=== PATIENT | female | born 1945 | race Caucasian/White ===

== ENCOUNTER 2019-11-08 07:50 | Outpatient (CLI) | payer MEDICARE, MEDICAID, SELFPAY ==
--- NOTE | 2019-11-08 08:45 | USCV_ITS ---
Yeimy Tiffany Age: 74 Gender: F : 1945 Exam Date: 11/08/2019 08:13 Ordering Phys: Ok Corey MD ([email or web address]) Technologist: CASSANDRA WATERS Exam Location: [facility] [place] Indication: AV Stenosis BP: 114 / 52 HR: 78 Rhythm: Sinus Technical Quality: Adequate MEASUREMENTS (Male / Female) Normal Values 2D ECHO LV Diastolic Diameter PLAX 4.8 cm 4.2 - 5.9 / 3.9 - 5.3 cm LV Systolic Diameter PLAX 3.4 cm IVS Diastolic Thickness 1.0 cm 0.6 - 1.0 / 0.6 - 0.9 cm IVS Systolic Thickness 1.5 cm LVPW Diastolic Thickness 1.0 cm 0.6 - 1.0 / 0.6 - 0.9 cm LVPW Systolic Thickness 1.4 cm LVOT Diameter 2.0 cm LV Ejection Fraction 2D Teich 57.0 % LA Diameter 3.7 cm LA Width 2.8 cm LA Height 5.0 cm RA Width 3.6 cm RA Height 5.3 cm Aorta at Sinotubular Diameter 2.6 cm M-MODE LV Diastolic Diameter MM 4.8 cm 4.2 - 5.9 / 3.9 - 5.3 cm LV Systolic Diameter MM 2.7 cm LV Ejection Fraction MM Teich 74.8 % IVS Diastolic Thickness MM 0.9 cm 0.6 - 1.0 / 0.6 - 0.9 cm IVS Systolic Thickness MM 1.5 cm LVPW Diastolic Thickness MM 1.2 cm 0.6 - 1.0 / 0.6 - 0.9 cm LVPW Systolic Thickness MM 1.4 cm Aortic Annulus Diameter 2.7 cm LA Ao Ratio MM 1.4 MV E Point Septal Separation 0.3 cm DOPPLER AV Peak Velocity 234.0 cm/s LVOT Peak Velocity 82.0 cm/s AV Area Cont Eq vti 1.0 cm squared AV Area Cont Eq pk 1.1 cm squared MV Area PHT 2.7 cm squared Mitral E to A Ratio 0.8 MV E' Velocity 8.0 cm/s Mitral E to MV E' Ratio 11.9 Mitral E to LV E' Lateral Ratio 9.7 Mitral E to LV E' Septal Ratio 15.3 TV Peak E Velocity 59.0 cm/s Right Atrial Pressure 3.0 mmHg PV Peak Velocity 87.0 cm/s RV Acceleration Time 0.1 s RV Ejection Time 0.3 s RV AcT/ET 0.4 FINDINGS Left Ventricle Normal left ventricular cavity size. Mild left ventricular hypertrophy. Normal left ventricular systolic function. No regional wall motion abnormalities. Grade I/IV diastolic dysfunction (abnormal relaxation filling pattern), normal to mildly elevated filling pressures. Left ventricular ejection fraction is estimated at 65-70 %. Right Ventricle Normal right ventricular size and systolic function. Normal right ventricular systolic pressure. Right Atrium The right atrium is normal in size. Left Atrium The left atrium is normal in size. Mitral Valve Structurally normal mitral valve without significant stenosis or prolapse. There is no mitral regurgitation. Aortic Valve Structurally normal trileaflet aortic valve. Mild aortic valve calcification. Mild aortic valve stenosis, mean gradient 11.1 mmHg, DEMETRIO 1 cm squared. Tricuspid Valve Structurally normal tricuspid valve. Trace tricuspid valve regurgitation. Pulmonic Valve Pulmonic valve not well visualized. Pericardium Normal pericardium without effusion. Aorta Normal ascending aorta dimension. CONCLUSIONS Normal left ventricular cavity size. Mild left ventricular hypertrophy. Normal left ventricular systolic function. No regional wall motion abnormalities. Grade I/IV diastolic dysfunction (abnormal relaxation filling pattern), normal to mildly elevated filling pressures. Left ventricular ejection fraction is estimated at 65-70 %. Structurally normal trileaflet aortic valve. Mild aortic valve calcification. Mild aortic valve stenosis, mean gradient 11.1 mmHg, DEMETRIO 1 cm squared. There are no prior echocardiogram studies to compare. Dr. Ok Corey MD (Electronically Signed) Final Date: 08 November 2019 10:45 S
== END 2019-11-08 07:51 | disposition home or self-care (01) ==
LOC: US 07:53
PROVIDERS: Family Provider Family Medicine; PCP Family Medicine; Visit Provider Internal Medicine Cardiovascular Disease
DX: I35.0 Nonrheumatic aortic (valve) stenosis (principal); I70.0 Atherosclerosis of aorta
CPT/HCPCS: 93306

== ENCOUNTER 2020-11-11 11:54 | Outpatient (CLI) | payer MEDICARE, MEDICAID, SELFPAY ==
--- NOTE | 2020-11-11 11:56 | USCV_ITS ---
Yeimy Tiffany Age: 75 Gender: F : 1945 Exam Date: 11/11/2020 12:35 Ordering Phys: Ok Corey MD ([email or web address]) Technologist: Mira Lindsey Exam Location: [facility] [place] Indication: BP: / HR: 78 Rhythm: Sinus Technical Quality: TDS MEASUREMENTS (Male / Female) Normal Values 2D ECHO LV Diastolic Diameter PLAX 4.1 cm 4.2 - 5.9 / 3.9 - 5.3 cm LV Systolic Diameter PLAX 3.3 cm LV Chamber Size 2.9 cm IVS Diastolic Thickness 1.4 cm 0.6 - 1.0 / 0.6 - 0.9 cm IVS Systolic Thickness 1.4 cm LVPW Diastolic Thickness 1.5 cm 0.6 - 1.0 / 0.6 - 0.9 cm LVPW Systolic Thickness 1.9 cm RV Chamber Size 2.7 cm LVOT Diameter 2.1 cm LV Ejection Fraction 2D Teich 47.5 % LV Ejection Fraction MOD 2C 51.7 % LV Ejection Fraction 2C AL 52.8 % LA Diameter 3.7 cm LA Width 3.1 cm LA Height 4.6 cm RA Width 3.3 cm RA Height 4.1 cm Aorta at Sinotubular Diameter 2.5 cm M-MODE LV Diastolic Diameter MM 4.5 cm 4.2 - 5.9 / 3.9 - 5.3 cm LV Systolic Diameter MM 2.9 cm LV Ejection Fraction MM Teich 64.7 % IVS Diastolic Thickness MM 1.4 cm 0.6 - 1.0 / 0.6 - 0.9 cm IVS Systolic Thickness MM 1.7 cm LVPW Diastolic Thickness MM 1.4 cm 0.6 - 1.0 / 0.6 - 0.9 cm LVPW Systolic Thickness MM 1.7 cm RV Diastolic Diameter MM 2.3 cm Aortic Annulus Diameter 3.2 cm LA Ao Ratio MM 1.2 MV E Point Septal Separation 0.8 cm DOPPLER AV Peak Velocity 250.3 cm/s LVOT Peak Velocity 84.0 cm/s AV Area Cont Eq vti 1.2 cm squared AV Area Cont Eq pk 1.2 cm squared MV Area PHT 3.3 cm squared Mitral E to A Ratio 1.2 MV E' Velocity 53.0 cm/s Mitral E to MV E' Ratio 13.7 Mitral E to LV E' Lateral Ratio 11.0 Mitral E to LV E' Septal Ratio 18.8 TR Peak Velocity 144.2 cm/s TR Peak Gradient 8.3 mmHg TR Mean Velocity 107.8 cm/s TR Mean Gradient 5.1 mmHg TR Velocity Time Integral 31.9 cm Right Atrial Pressure 3.0 mmHg Pulmonary Artery Systolic Pressu 11.3 mmHg PV Peak Velocity 70.0 cm/s RV Acceleration Time 0.1 s RV Ejection Time 0.5 s RV AcT/ET 0.2 FINDINGS Left Ventricle Normal left ventricular size. Grossly LV systolic function is normal. Regional wall motion abnormalties can not be assessed because of limited visualization. Diastolic function is abnormal Right Ventricle The right ventricle is normal in size and function. Right Atrium The right atrium is normal in size. Left Atrium The left atrium is normal in size. Mitral Valve Structurally normal mitral valve without significant stenosis or prolapse. There is no mitral regurgitation. Aortic Valve Aortic valve is moderately calcified. Mild aortic stenosis is present. By continuity equation, aortic valve area is calculated to be 1.26cm2 and mean gradient across the valve is 14mmHg. No aortic regurgitation seen Tricuspid Valve Structurally normal tricuspid valve without significant stenosis or regurgitation. Insufficient TR jet to calculate RVSP Pulmonic Valve Not visualized Pericardium Normal pericardium without effusion. Aorta Normal ascending aorta dimension. CONCLUSIONS This is technically difficult study with limited visualization of cardiac structures Grossly, LV systolic function is normal Diastolic function is abnormal Mild aortic stenosis with aortic valve area of 1.26 cm2 and mean gradient across the valve of 14mmHg Compared to prior echocardiogram from 11/08/2019, no signficant change is noted Tariq Cannon MD (Electronically Signed) Final Date: 17 November 2020 15:14 S
== END 2020-11-11 11:55 | disposition home or self-care (01) ==
LOC: US 11:55
PROVIDERS: PCP Family Medicine; Visit Provider Internal Medicine Cardiovascular Disease
DX: I35.0 Nonrheumatic aortic (valve) stenosis (principal)
CPT/HCPCS: 93306

== ENCOUNTER 2021-09-14 10:25 | Inpatient (IN) | payer MEDICARE, MEDICAID, SELFPAY ==
[2021-09-14] VITALS (10 sets, daily range): BP systolic 101–158; BP diastolic 57–99; PULSE 82–104; RESP 16–23; TEMP 36.5–37.7; O2SAT 91–96; BMI 44.0
--- NOTE | 2021-09-14 10:49 | ECG_ITS ---
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 Measurements Intervals [place] Rate: 94 P: -57 MI: 106 QRS: 197 QRSD: 132 T: -10 QT: 376 QTc: 471 Interpretive Statements SINUS RHYTHM WITH SINUS ARRHYTHMIA WITH SHORT MI INTERVAL RIGHT AXIS DEVIATION [QRS AXIS > 100] RIGHT BUNDLE BRANCH BLOCK [120+ ms QRS DURATION, UPRIGHT V1, 40+ ms S IN I/aVL/V4/V5/V6] POSSIBLE ANTERIOR MYOCARDIAL INFARCTION , OF INDETERMINATE AGE [30 ms Q WAVE IN V3/V4, OR R < 0.2 mV IN V4] No previous ECG available for comparison Electronically Signed On 09-15-2021 15:34:28 COMMERCIAL MANAGEMENT ACCOUNTANT by Diane Benedict M.D. [id number]
--- NOTE | 2021-09-14 10:49 | XRR_ITS ---
PROCEDURE INFORMATION: Exam: XR Chest Exam date and time: 09/14/2021 10:49 AM Age: 75 years old Clinical indication: Dyspnea TECHNIQUE: Imaging protocol: XR of the chest. Views: 1 view. COMPARISON: No relevant prior studies available. FINDINGS: Lungs: Mild perihilar pneumonia bilaterally. Pleural spaces: Unremarkable. No pleural effusion. No pneumothorax. Heart/Mediastinum: Mild cardiomegaly. Bones/joints: Postoperative metallic fixation of the cervical spine with or without metallic artifact. XR/XR chest 1V portable [id number] IMPRESSION: 1. Mild cardiomegaly. 2. Mild perihilar pneumonia bilaterally.
--- NOTE | 2021-09-14 11:14 | W.ED.GENADLT ---
HPI - General Adult General: Chief complaint: Shortness of Breath/Dyspnea Stated complaint: sob,cough,fever Time Seen by Provider: 09/14/21 10:43 History of Present Illness: HPI narrative: Patient is a 75-year-old female with history of COPD on 2 L of home oxygen presented to emergency room with acute onset of dyspnea and cough since Wednesday. Patient tells me that she was at home with family when this all started. Denies any other sick contact. Denies any diarrhea, generalized weakness, malaise, fever/chills, runny nose/sore throat. Patient denies any active chest pain. Denies any exertional chest pain, pleuritic chest pain, leg swelling, nausea/vomiting, melena/hematochezia, or symptoms. Onset:2 days ago Duration:2 days Location:home Severity:moderate/severe Review of Systems Narrative: Constitutional: No fever, no chills. HEENT: No vision changes CV: No chest pain, no palpitations PULM: +cough, +dyspnea. GI: No abdominal pain, no N/V/D. : No dysuria MSKEL: No muscle pain SKIN: No new rashes, no lesions. NEURO: No headache, no focal weakness. HEME: No visible bruises PSYCH: Normal mood PFSH ED PFSH: Medical History CVA (cerebral vascular accident) Diabetes 1.5, managed as type 2 HTN (hypertension) Hyperlipidemia Hypothyroidism Mild aortic stenosis Obesity Seizure disorder Surgical History Previous back surgery S/P hysterectomy Family History Father Stroke Hypertension Mother Hypertension CAD (coronary artery disease) Myocardial infarction Sister Hypertension CAD (coronary artery disease) Myocardial infarction Brother CAD (coronary artery disease) Myocardial infarction Social History Smoking and tobacco status: never smoked Household members: spouse Marital status: Physical Exam Narrative: EXAM NARRATIVE: Head: Atraumatic Eyes: PERRL, conjunctiva without injection ENT: Mucous membrane moist NECK: Supple, ROM intact LUNGS: +Coarse breath sounds b/l CV: RRR ABDOMEN: Soft, nontender in all quadrants EXTREMITY: Normal ROM SKIN: No rash or erythema NEURO: Awake and alert, no focal motor deficits PSYCH: Normal mood and affect Course Vital Signs: Vital signs: Vital Signs Temperature 99.5 F 09/14/21 10:37 Pulse Rate 101 H 09/14/21 15:10 Respiratory Rate 16 09/14/21 13:26 Blood Pressure 134/57 09/14/21 15:10 Pulse Oximetry 95 09/14/21 15:10 MDM - General Adult MDM Narrative: Medical decision making narrative: 75-year-old female presenting to the emergency room for evaluation of dyspnea cough x2 days with increased oxygen requirement. Patient satting at 93 to 94% on 5L nasal cannula. Lung sounds appears to be coarse. XR consistent with possible PNA. WBC of 14K. S/p ceftriaxone and azithromycin. Given increased oxygen requirement and possible PNA, patient will be admitted for further workup. Disposition: Admission Lab Data: Labs: Lab Results 09/14/21 09/14/21 09/14/21 11:45 11:45 11:45 WBC 14.5 10^3/uL H 10 ^3/uL (4.0-10.0) RBC 4.07 10^6/uL L 10 ^6/uL (4.1-5.3) Hgb 12.2 g/dL g/dL (11.5-15.3) Hct 38.5 % % (37.0-47.0) MCV 94.6 fl fl (81-99) MCH 30.0 pg pg (28.0-34.0) MCHC 31.7 g/dL g/dL (30.0-36.0) RDW 13.5 % % (12.1-15.1) Plt Count 280 10^3/cmm 10^3 /cmm (130-400) MPV 8.8 fL fL (7.4-10.4) Neut % (Auto) 78.9 % % Lymph % (Auto) 7.2 % % [place] % (Auto) 11.6 % % Eos % (Auto) 1.2 % % Baso % (Auto) 0.4 % % Neut # (Auto) 11.45 10^3/uL H 1 0^3/uL (1.8-7.7) Lymph # (Auto) 1.0 10^3/uL 10^3/ uL (0.8-4.8) [place] # (Auto) 1.7 10^3/uL H 10^ 3/uL (0.2-0.9) Eos # (Auto) 0.2 10^3/uL 10^3/ uL (0.0-0.8) Baso # (Auto) 0.1 10^3/uL 10^3/ uL (0.0-0.1) Nucleated RBC % (a uto) 0 % % Nucleated RBCs # 0.0 /100WBC /100W BC Sodium 137 mmol/L mmol/L (136-145) Potassium 4.4 mmol/L mmol/L (3.5-5.1) Chloride 97 mmol/L L mmol/ L (98-107) Carbon Dioxide 28 mmol/L mmol/L (22-29) Anion Gap 16.4 (5-19) BUN 13 mg/dL mg/dL (8-23) Creatinine 0.8 mg/dL mg/dL (0.5-0.9) GFR Calculation Not Reportable Glucose 252 mg/dL H mg/dL (65-115) Calculated Osmolal ity 293 mOsm/kg mOsm/ kg (285-295) Calcium 7.6 mg/dL L mg/dL (8.5-10.5) Troponin T Baselin e Troponin T 120 Min nato Delta Troponin T NT-Pro-B Natriuret Pep 2772 pg/mL H pg/m L (0-125) Coronavirus 229E ( PCR) Not detected (NOT DETECT) SARS-CoV-2 (PCR) Not detected (NOT DETECT) SARS-CoV-2 Ag (Rap id) 09/14/21 09/14/21 09/14/21 11:45 11:45 13:55 WBC RBC Hgb Hct MCV MCH MCHC RDW Plt Count MPV Neut % (Auto) Lymph % (Auto) [place] % (Auto) Eos % (Auto) Baso % (Auto) Neut # (Auto) Lymph # (Auto) [place] # (Auto) Eos # (Auto) Baso # (Auto) Nucleated RBC % (a uto) Nucleated RBCs # Sodium Potassium Chloride Carbon Dioxide Anion Gap BUN Creatinine GFR Calculation Glucose Calculated Osmolal ity Calcium Troponin T Baselin e 22 ng/L H ng/L (0-10) Troponin T 120 Min nato 20.56 ng/L H ng/L (0-10) Delta Troponin T -1.44 ABS# L ABS# (0-10) NT-Pro-B Natriuret Pep Coronavirus 229E ( PCR) SARS-CoV-2 (PCR) SARS-CoV-2 Ag (Rap id) Cancelled Imaging Data^: Other Imaging: Radiologist's impression: [id number] [place], [place] [address]KV Scan ReportSigned Patient: Tiffany Gaffney #: [id number]: 1945cct#:[id number]/Sex: 75 / FADM Date: 09/14/21[facility]: Lorene Oh MD Ordering Provider/Ordering MD: Lyndsay Choudhary MD Date of Service: 09/14/21 Procedure(s): CT angio chest PE prot [id number] Accession Number(s): [id number] Report Number: [id number] PROCEDURE INFORMATION: Exam: CTA Chest With Contrast Exam date and time: 09/14/2021 12:23 PM Age: 75 years old Clinical indication: Cough and shortness of breath; Additional info: Eval pe TECHNIQUE: Imaging protocol: Computed tomographic angiography of the chest with contrast. 3D rendering (Not supervised by radiologist): MIP and/or 3D reconstructed images were created by the technologist. Radiation optimization: All CT scans at this facility use at least one of these dose optimization techniques: automated exposure control; mA and/or kV adjustment per patient size (includes targeted exams where dose is matched to clinical indication); or iterative reconstruction. Contrast material: OMNI 350; Contrast volume: 77 ml; Contrast route: INTRAVENOUS (IV); COMPARISON: CR (CHEST, ) 09/14/2021 11:16 AM RADIATION DOSE METRICS: Total DLP (mGy-cm): 564.78 FINDINGS: Pulmonary arteries: No pulmonary embolus or aortic dissection. Aorta: See Pulmonary arteries finding. Lungs: 6 mm left upper lobe pulmonary nodule, axial series 2, image 177. Followup as discussed below. Right discoid atelectasis and/or scarring. Airspace disease in the superior segment left upper lobe with air bronchograms consistent with moderate to severe focal pneumonia. Pleural spaces: Unremarkable. No pneumothorax. No pleural effusion. Heart: Unremarkable. No cardiomegaly. No pericardial effusion. Lymph nodes: Mild mediastinal and pufw-wt-krlhfrnm bilateral hilar adenopathy consistent with reactive adenopathy versus sarcoidosis versus other pathology. Spleen: Calcified splenic granulomas. Bones/joints: Stable postoperative metallic fixation of the cervical spine with or without metallic artifact. Moderate thoracic spondylosis. Soft tissues: Unremarkable. CT/CT angio chest PE protcl [id number] IMPRESSION: 1. 6 mm left upper lobe pulmonary nodule, axial series 2, image 177. Followup as discussed below. 2. Airspace disease in the superior segment left upper lobe with air bronchograms consistent with moderate to severe focal pneumonia. 3. No pulmonary embolus or aortic dissection. 4. Mild mediastinal and ykzg-id-pmvhtguu bilateral hilar adenopathy consistent with reactive adenopathy versus sarcoidosis versus other pathology. For patients at low risk (minimal or absent history of smoking and of other known risk factors), recommend CT Chest at 6-12 months, then consider CT Chest at 18-24 months. For patients at high risk (history of smoking or of other known risk factors), recommend CT Chest at 6-12 months, then CT Chest at 18-24 months. (Reference: Clarisa) References: Kaelahocarol H, et al. Guidelines for Management of Incidental Pulmonary Nodules Detected on CT Images: From the Fleischner Society 2017. Radiology. 2017;284(1):228-243. Dictated By:Lukas Perea MDSigned By:Lukas Perea MDSigned Date/Time:09/14/21 1623DD/ 1223 Discharge Plan Discharge Patient Disposition: Admitted As Inpatient Admit Provider: Lorene Oh Clinical Impression: Dyspnea, Cough, Pneumonia, Hypoxemia Condition: Stable Coding Level of Care Code ED Daily Sales Audit Clerk for Valentin Mace
[2021-09-14 11:56] LABS: Basophils # 0.1 10^3/uL (0.0-0.1); Basophils % 0.4 %; Eosinophils # 0.2 10^3/uL (0.0-0.8); Eosinophils % 1.2 %; Hematocrit 38.5 % (37.0-47.0); Hemoglobin 12.2 g/dL (11.5-15.3); Lymphocytes % 7.2 %; Mean Corpuscular HGB Conc 31.7 g/dL (30.0-36.0); Mean Corpuscular Volume 94.6 fl (81-99); Mean Platelet Volume 8.8 fL (7.4-10.4); Monocytes # 1.7 10^3/uL (0.2-0.9); Monocytes % 11.6 %; Neutrophils # 11.45 10^3/uL (1.8-7.7); Neutrophils % 78.9 %; Nucleated Red Blood Cells % 0 %; Platelet Count 280 10^3/cmm (130-400); Red Blood Count 4.07 10^6/uL (4.1-5.3); Red Cell Distribution Width 13.5 % (12.1-15.1); White Blood Count 14.5 10^3/uL (4.0-10.0)
--- NOTE | 2021-09-14 12:23 | CTR_ITS ---
PROCEDURE INFORMATION: Exam: CTA Chest With Contrast Exam date and time: 09/14/2021 12:23 PM Age: 75 years old Clinical indication: Cough and shortness of breath; Additional info: Eval pe TECHNIQUE: Imaging protocol: Computed tomographic angiography of the chest with contrast. 3D rendering (Not supervised by radiologist): MIP and/or 3D reconstructed images were created by the technologist. Radiation optimization: All CT scans at this facility use at least one of these dose optimization techniques: automated exposure control; mA and/or kV adjustment per patient size (includes targeted exams where dose is matched to clinical indication); or iterative reconstruction. Contrast material: OMNI 350; Contrast volume: 77 ml; Contrast route: INTRAVENOUS (IV); COMPARISON: CR (CHEST, ) 09/14/2021 11:16 AM RADIATION DOSE METRICS: Total DLP (mGy-cm): 564.78 FINDINGS: Pulmonary arteries: No pulmonary embolus or aortic dissection. Aorta: See Pulmonary arteries finding. Lungs: 6 mm left upper lobe pulmonary nodule, axial series 2, image 177. Followup as discussed below. Right discoid atelectasis and/or scarring. Airspace disease in the superior segment left upper lobe with air bronchograms consistent with moderate to severe focal pneumonia. Pleural spaces: Unremarkable. No pneumothorax. No pleural effusion. Heart: Unremarkable. No cardiomegaly. No pericardial effusion. Lymph nodes: Mild mediastinal and saxc-be-cqrpabef bilateral hilar adenopathy consistent with reactive adenopathy versus sarcoidosis versus other pathology. Spleen: Calcified splenic granulomas. Bones/joints: Stable postoperative metallic fixation of the cervical spine with or without metallic artifact. Moderate thoracic spondylosis. Soft tissues: Unremarkable. CT/CT angio chest PE protcl [id number] IMPRESSION: 1. 6 mm left upper lobe pulmonary nodule, axial series 2, image 177. Followup as discussed below. 2. Airspace disease in the superior segment left upper lobe with air bronchograms consistent with moderate to severe focal pneumonia. 3. No pulmonary embolus or aortic dissection. 4. Mild mediastinal and dwjl-bw-ofwiklum bilateral hilar adenopathy consistent with reactive adenopathy versus sarcoidosis versus other pathology. For patients at low risk (minimal or absent history of smoking and of other known risk factors), recommend CT Chest at 6-12 months, then consider CT Chest at 18-24 months. For patients at high risk (history of smoking or of other known risk factors), recommend CT Chest at 6-12 months, then CT Chest at 18-24 months. (Reference: Clarisa) References: Clarisa Preciado, et al. Guidelines for Management of Incidental Pulmonary Nodules Detected on CT Images: From the Fleischner Society 2017. Radiology. 2017;284(1):228-243.
[2021-09-14 12:24] LABS: Troponin(5th) Baseline 22 ng/L (0-10)
[2021-09-14 12:32] LABS: Anion Gap 16.4 (5-19); Blood Urea Nitrogen 13 mg/dL (8-23); Calcium 7.6 mg/dL (8.5-10.5); Carbon Dioxide 28 mmol/L (22-29); Chloride 97 mmol/L (98-107); Glucose 252 mg/dL (65-115); NT Pro B Type Natriuretic Pept 2772 pg/mL (0-125); Osmolality Calculated 293 mOsm/kg (285-295); Potassium 4.4 mmol/L (3.5-5.1); Sodium 137 mmol/L (136-145)
--- NOTE | 2021-09-14 12:49 | ECG_ITS ---
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 Measurements Intervals [place] Rate: 92 P: -65 MD: 102 QRS: 193 QRSD: 129 T: -9 QT: 382 QTc: 474 Interpretive Statements SINUS RHYTHM WITH FREQUENT SUPRAVENTRICULAR PREMATURE COMPLEXES RIGHT AXIS DEVIATION [QRS AXIS > 100] RIGHT BUNDLE BRANCH BLOCK [120+ ms QRS DURATION, UPRIGHT V1, 40+ ms S IN I/aVL/V4/V5/V6] POSSIBLE ANTERIOR MYOCARDIAL INFARCTION , OF INDETERMINATE AGE [30 ms Q WAVE IN V3/V4, OR R < 0.2 mV IN V4] Compared to ECG 09/14/2021 14:12:49 Atrial fibrillation no longer present Myocardial infarct finding still present Electronically Signed On 09-15-2021 22:47:07 CONSUMER ADVOCATE by Diane Benedict M.D. [id number]
[2021-09-14] MEDS: ipratropium-albuterol 3 mL Neb INHALATION ×3 (12:56→13:19)
[2021-09-14 13:43] LABS: Adenovirus Not Detected (NOT DETECT); Chlamydia Pneumoniae Not Detected (NOT DETECT); Coronavirus 229E,HKU1,NL63,OC4 Not Detected (NOT DETECT); Human Metapneumovirus Not Detected (NOT DETECT); Human Rhinovirus/Enterovirus Not Detected (NOT DETECT); Influenza A Not Detected (NOT DETECT); Influenza A H1 Not Detected (NOT DETECT); Influenza A H1-2009 Not Detected (NOT DETECT); Influenza A H3 Not Detected (NOT DETECT); Influenza B Not Detected (NOT DETECT); Mycoplasma Pneumoniae Not Detected (NOT DETECT); Parainfluenza Virus Type 1 Not Detected (NOT DETECT); Parainfluenza Virus Type 2 Not Detected (NOT DETECT); Parainfluenza Virus Type 3 Not Detected (NOT DETECT); Parainfluenza Virus Type 4 Not Detected (NOT DETECT); Respiratory Syncytial Virus A Not Detected (NOT DETECT); Respiratory Syncytial Virus B Not Detected (NOT DETECT); SARS-COV-2 Not Detected (NOT DETECT)
--- NOTE | 2021-09-14 14:11 | PM.HP ---
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 She is normally on 2 L at home of oxygen. She has been having cough since Wednesday and she was at home with family when all this started. She states she is unable to bring any phlegm however and it is stuck in her throat. She is now requiring 5 L of oxygen at rest. COVID-19 and Covid PCR negative. Denies any sick contact. Denies diarrhea generalized weakness, malaise, fever, chills, runny nose, sore throat. Denies chest pain, leg swelling, nausea, vomiting, diarrhea. Extensive review of systems done and is negative at this time. She is not on any inhalers at home for her COPD from what she tells me. ED course: Blood pressure 136/83, respiratory 16, pulse rate 100, temperature 99.5, pulse ox 93%. Chest x-ray shows mild cardiomegaly, mild perihilar pneumonia bilaterally. Last echo October 2020 shows grossly normal systolic function, diastolic function abnormal. Mild aortic stenosis with aortic valve area 1.26 cm? and mean gradient across the valve of 14. No significant change noted since October 2019. CTA negative for pulmonary embolism but does have pulmonary nodule with severe focal pneumonia in left upper lobe. Review of Systems General: Reports: 10 or more systems reviewed and unremarkable except in HPI and below Medications/Allergies Home Medications Medication Instructions Recorded Confirmed Last Taken Type baclofen 10 mg tablet 10 mg PO TID 11/13/19 09/14/21 09/13/21 History bumetanide 2 mg tablet 2 mg PO BID 11/13/19 09/14/21 09/13/21 History cetirizine 10 mg tablet 10 mg PO DAILY PRN tab 11/13/19 09/14/21 Unknown History desvenlafaxine succinate 50 mg 50 mg PO DAILY 11/13/19 09/14/21 09/13/21 History tablet,extended release 24 hr esomeprazole magnesium 20 mg 20 mg PO DAILY 11/13/19 09/14/21 09/13/21 History capsule,delayed release fluticasone propionate 50 1 spray INTRANASAL DAILY 11/13/19 09/14/21 Unknown History mcg/actuation nasal spray,suspension gabapentin 300 mg capsule 300 mg PO BID 11/13/19 09/14/21 09/13/21 History levothyroxine 100 mcg capsule 100 mcg PO DAILY 11/13/19 09/14/21 09/13/21 History linagliptin 5 mg tablet 5 mg PO DAILY 11/13/19 09/14/21 09/13/21 History lisinopril 5 mg tablet 5 mg PO DAILY 11/13/19 09/14/21 09/13/21 History meclizine 25 mg tablet 25 mg PO TID PRN 11/13/19 09/14/21 Unknown History metformin 1,000 mg tablet 1,000 mg PO BID 11/13/19 09/14/21 09/13/21 History oxycodone-acetaminophen 10 mg-325 1 tab PO Q4H PRN 11/13/19 09/14/21 Unknown History mg tablet phenytoin sodium extended 100 mg 300 mg PO BID cap 11/13/19 09/14/21 09/13/21 History capsule ergocalciferol (vitamin D2) 1,250 mcg PO DAILY 09/14/21 09/14/21 Unknown History [Vitamin D2] potassium chloride 20 meq PO DAILY 09/14/21 09/14/21 09/13/21 History Allergies Allergy/AdvReac Type Severity Reaction Status Date / Time No Known Allergies Allergy Verified 09/14/21 10:37 PFSH Acute PFSH: Medical History CVA (cerebral vascular accident) Diabetes 1.5, managed as type 2 HTN (hypertension) Hyperlipidemia Hypothyroidism Mild aortic stenosis Obesity Seizure disorder Surgical History Previous back surgery S/P hysterectomy Family History Father Stroke Hypertension Mother Hypertension CAD (coronary artery disease) Myocardial infarction Sister Hypertension CAD (coronary artery disease) Myocardial infarction Brother CAD (coronary artery disease) Myocardial infarction Social History Smoking and tobacco status: never smoked Household members: spouse Marital status: Vitals/I&O/Wt Last Vital Signs Temp 99.5 F 09/14/21 10:37 Pulse 88 09/14/21 13:26 Resp 16 09/14/21 13:26 BP 140/77 09/14/21 12:29 Pulse Ox 92 09/14/21 13:26 Weight last 48 hrs Weight 109.316 kg Physical Exam Narrative: EXAM NARRATIVE: General: Alert oriented x3, patient seen appearing comfortable on 5L NC HEENT: Normocephalic, atraumatic, EOMI, breathing normally on 5L NC, NO acute distress Cardio: Regular rate rhythm, normal S1-S2, no murmurs rubs gallops, Respiratory: Coarse bilateral breath sounds, decreased bilateral air entry. GI: Abdomen soft, nontender, nondistended, bowel sounds + Behavior: Appropriate and cooperative Extremities: no edema, no cyanosis Data : 09/14/21 11:45 09/14/21 11:45 A&P Assessment and plan (1) Dyspnea: Status: Acute (2) Cough: Status: Acute (3) Mild aortic stenosis: Status: Acute (4) Obesity: Status: Acute (5) Diabetes 1.5, managed as type 2: Status: Acute (6) Hyperlipidemia: Status: Acute (7) HTN (hypertension): Status: Acute (8) CVA (cerebral vascular accident): Status: Acute Additional A&P Information #Acute on chronic hypoxic respiratory failure #Left upper lobe moderate to severe pneumonia on CT chest #6 mm left upper lobe pulmonary nodule #Mild to moderate bilateral hilar adenopathy consistent with reactive adenopathy versus high-grade ptosis versus other pathology. -Respiratory to assess and treat. Oxygen as needed. Currently requiring 5 L. Covid PCR negative ?We will start patient on vancomycin and Zosyn at this time ?Obtain sputum Gram stain and culture ?MRSA nares PCR ?Bacterial antigens -Check influenza -CTA pending. #History of stroke #Hypertension #Hyperlipidemia #Diabetes #Obesity #Mild aortic stenosis #Hypothyroidism -Insulin sliding scale for diabetes -Continue patient's home medications ?Continue levothyroxine 100 daily ?Hold Metformin, empagliflozin. Full code DVT prophylaxis Lovenox Attestations Medical Necessity Statement*: >48 hour stay Coding Level of Care Code Acute Warehouse Delivery Manager for g Fwd Diagnoses Dyspnea R06.00 Cough R05.9 Mild aortic stenosis I35.0 Obesity E66.9 Diabetes 1.5, managed as type 2 E13.9 Hyperlipidemia E78.5 HTN (hypertension) I10 CVA (cerebral vascular accident) I63.9
[2021-09-14 14:24] LABS: Troponin 5 2HR 20.56 ng/L (0-10)
[2021-09-14 14:33] LABS: Troponin 5 2HR Delta -1.44 ABS# (0-10)
[2021-09-14] MEDS: cefTRIAXone 1,000 MG in sodium chloride 0.9% (plus) 50 ML 100 MG IV (15:06)
[2021-09-14] MEDS: iohexol 350 mg/mL 100 mL Btl IV (15:58)
--- NOTE | 2021-09-14 16:49 | ECG_ITS ---
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 Measurements Intervals [place] Rate: 94 P: WI: QRS: 191 QRSD: 132 T: -12 QT: 375 QTc: 469 Interpretive Statements ATRIAL FIBRILLATION RIGHT AXIS DEVIATION [QRS AXIS > 100] RIGHT BUNDLE BRANCH BLOCK POSSIBLE ANTERIOR MYOCARDIAL INFARCTION , OF INDETERMINATE AGE Compared to ECG 09/14/2021 12:17:56 Sinus rhythm no longer present Sinus arrhythmia no longer present Short WI interval no longer present Myocardial infarct finding still present Electronically Signed On 09-15-2021 16:57:48 JOURNEYMAN APPRENTICE ELECTRICIANS by Diane Benedict M.D. [id number]
[2021-09-14 17:22] LABS: Glucose Point of Care 216 mg/dL (70-110)
[2021-09-14] MEDS: phenytoin ER 100 mg Capsule 300 MG PO (17:43)
[2021-09-14] MEDS: heparin 5,000 unit/mL INJ 1 mL 5000 UNIT SUBCUT (17:43)
[2021-09-14] MEDS: gabapentin 300 mg Capsule PO (17:43)
[2021-09-14] MEDS: vancomycin 1,500 MG/300 ML PIGGYBACK 200 MG IV (17:43)
[2021-09-14] MEDS: bumetanide 1 mg Tablet 2 MG PO (17:46)
[2021-09-14 18:53] LABS: Troponin 5 6HR 19.98 ng/L (0-10)
[2021-09-14 18:56] LABS: Troponin 5 6HR Delta -2.02 ng/L (0-12)
[2021-09-14 19:01] LABS: Procalcitonin 0.09 ng/mL (0-0.5)
[2021-09-14] MEDS: baclofen 10 mg Tablet PO (20:13)
[2021-09-14] MEDS: acetaminophen 325 mg Tablet 650 MG PO (20:13)
[2021-09-14] MEDS: piperacillin-tazobactam 3.375 GM in sodium chloride 0.9% (plus) 50 ML IV (20:14)
[2021-09-14 20:35] LABS: Glucose Point of Care 323 mg/dL (70-110)
[2021-09-14 23:37] LABS: Add Urine Microscopic? NO; Charge for UA Resulting for Rev
[2021-09-15] VITALS (8 sets, daily range): BP systolic 110–129; BP diastolic 61–75; PULSE 73–110; RESP 16–22; TEMP 36.5–37.2; O2SAT 90–98
[2021-09-15 00:22] LABS: Bilirubin Urine Neg (Negative); Blood Urine Neg (Negative); Glucose Urine UA Norm (Normal); Ketones Urine Negative (Negative); Leukocyte Esterase Urine Negative (Negative); Nitrate Urine Negative (Negative); Protein Urine Neg (Negative); Specific Gravity, Urine 1.005 (1.005-1.030); Urine Appearance Clear (CLEAR); Urine Color Yellow (Yellow); Urobilinogen Urine Norm (Negative); pH Urine 5 (5-7)
[2021-09-15] MEDS: heparin 5,000 unit/mL INJ 1 mL 5000 UNIT SUBCUT ×3 (01:09→17:43)
[2021-09-15] MEDS: piperacillin-tazobactam 3.375 GM in sodium chloride 0.9% (plus) 50 ML IV ×3 (03:27→19:43)
[2021-09-15] MEDS: vancomycin 1,500 MG/300 ML PIGGYBACK 200 MG IV (06:07)
--- NOTE | 2021-09-15 06:15 | PC.NURSE ---
SHIFT SUMMARY Has rested well. Is SOB with any exertion. Occ cough which she says she still is not able to get anything coughed all the way up. O2 in place at 5l NC. Receiving IV antibiotics as ordered.
[2021-09-15] MEDS: levothyroxine 100 mcg Tablet PO (08:48)
[2021-09-15] MEDS: bumetanide 1 mg Tablet 2 MG PO ×2 (08:48→17:39)
[2021-09-15] MEDS: pantoprazole DR 40 mg Tablet PO (08:48)
[2021-09-15] MEDS: phenytoin ER 100 mg Capsule 300 MG PO ×2 (08:48→17:39)
[2021-09-15] MEDS: lisinopril 5 mg Tablet PO (08:48)
[2021-09-15] MEDS: baclofen 10 mg Tablet PO ×3 (08:48→20:33)
[2021-09-15] MEDS: gabapentin 300 mg Capsule PO ×2 (08:48→17:39)
[2021-09-15] MEDS: predniSONE 20 mg Tablet 40 MG PO (08:48)
[2021-09-15 10:12] LABS: Basophils % 0.3 %; Eosinophils # 0.2 10^3/uL (0.0-0.8); Eosinophils % 1.3 %; Hematocrit 37.4 % (37.0-47.0); Hemoglobin 11.8 g/dL (11.5-15.3); Lymphocytes # 0.8 10^3/uL (0.8-4.8); Lymphocytes % 5.9 %; Mean Corpuscular HGB Conc 31.6 g/dL (30.0-36.0); Mean Corpuscular Hemoglobin 30.3 pg (28.0-34.0); Mean Corpuscular Volume 96.1 fl (81-99); Mean Platelet Volume 9.1 fL (7.4-10.4); Monocytes # 1.5 10^3/uL (0.2-0.9); Monocytes % 11.7 %; Neutrophils % 80.2 %; Nucleated Red Blood Cells % 0 %; Platelet Count 266 10^3/cmm (130-400); Red Blood Count 3.89 10^6/uL (4.1-5.3); Red Cell Distribution Width 13.8 % (12.1-15.1); White Blood Count 13.1 10^3/uL (4.0-10.0)
[2021-09-15 10:20] LABS: INR 1.13 (0.8-1.2)
[2021-09-15] MEDS: desvenlafaxine 50 mg Tablet PO (10:29)
[2021-09-15 10:36] LABS: Alanine Aminotransferase 9 U/L (0-33); Albumin Level 3.4 g/dL (3.5-5.2); Alkaline Phosphatase 88 IU/L (35-105); Anion Gap 16.1 (5-19); Aspartate Amino Transferase 10 U/L (0-32); Blood Urea Nitrogen 13 mg/dL (8-23); Calcium 7.5 mg/dL (8.5-10.5); Carbon Dioxide 29 mmol/L (22-29); Chloride 98 mmol/L (98-107); Globulin 3.7 g/dL (1.3-4.6); Glucose 308 mg/dL (65-115); Osmolality Calculated 300 mOsm/kg (285-295); Potassium 4.1 mmol/L (3.5-5.1); Sodium 139 mmol/L (136-145); Total Bilirubin 0.4 mg/dL (0.15-1.2); Total Protein 7.1 g/dL (6.6-8.7)
[2021-09-15 10:37] LABS: Magnesium 1.7 mg/dL (1.7-2.3); Phosphorus 2.5 mg/dL (2.5-4.5)
[2021-09-15] MEDS: acetaminophen 325 mg Tablet 650 MG PO ×2 (11:41→19:42)
[2021-09-15 11:51] LABS: Glucose Point of Care 333 mg/dL (70-110)
--- NOTE | 2021-09-15 12:12 | PM.PN ---
Subjective Subjective: Interval history: Seen this morning. No acute events overnight. Pt is down to 2L NC which is her baseline. Vitals/I&O/Wt Last Vital Signs Temp 98 F 09/15/21 11:27 Pulse 88 09/15/21 11:27 Resp 16 09/15/21 11:27 BP 110/68 09/15/21 11:27 Pulse Ox 98 09/15/21 11:27 09/14/21 09/15/21 09/15/21 22:59 06:59 14:59 Intake Total 830 / 830 500 / 1330 420 / 420 Output Total 700 / 700 600 / 1300 Balance 130 / 130 -100 / 30 420 / 420 Weight last 48 hrs Weight 109.316 kg Physical Exam Narrative: EXAM NARRATIVE: General: Alert oriented x3, patient seen appearing comfortable on 2L NC HEENT: Normocephalic, atraumatic, EOMI, breathing normally on 2L NC, NO acute distress Cardio: Regular rate rhythm, normal S1-S2, no murmurs rubs gallops, Respiratory: Good air entry today, with mild wheezes throughout lung benites. GI: Abdomen soft, nontender, nondistended, bowel sounds + Extremities: no edema, no cyanosis Data : 09/15/21 09:40 09/15/21 09:45 Micro: Microbiology 09/14/21 23:25 Legionella Urinary Antigen - Final Urine,Clean Catch Bacterial Antigens - Final 09/14/21 18:00 Blood Culture - Preliminary Blood SPECIMEN COLLECTED 09/14/21 18:07 Blood Culture - Preliminary Blood SPECIMEN COLLECTED A&P Assessment and plan (1) Dyspnea: Status: Acute (2) Cough: Status: Acute (3) Mild aortic stenosis: Status: Acute (4) Obesity: Status: Acute (5) Diabetes 1.5, managed as type 2: Status: Acute (6) Hyperlipidemia: Status: Acute (7) HTN (hypertension): Status: Acute (8) CVA (cerebral vascular accident): Status: Acute Additional A&P Information #Acute on chronic hypoxic respiratory failure #Left upper lobe moderate to severe pneumonia on CT chest #6 mm left upper lobe pulmonary nodule #Mild to moderate bilateral hilar adenopathy consistent with reactive adenopathy versus high-grade ptosis versus other pathology. -Respiratory to assess and treat. Oxygen as needed. Currently requiring 2 L which is baseline. Covid PCR negative ?We will start patient on vancomycin and Zosyn at this time ?Sputum Gram stain and culture results pending. ?MRSA nares PCR ?Bacterial antigens pending -Check influenza -CTA ruled out PE. Shows severe pneumonia in [place] - Continue prednisone 40 daily and duoneb q6 hours. #History of stroke #Hypertension #Hyperlipidemia #Diabetes #Obesity #Mild aortic stenosis #Hypothyroidism -Insulin sliding scale for diabetes -Continue patient's home medications ?Continue levothyroxine 100 daily ?Hold Metformin, empagliflozin. Full code DVT prophylaxis Lovenox Attestations Medical Necessity Statement*: > 24 hour stay. Will do another day of IV antibiotics. Coding Level of Care Code Acute Associate Chemist for g Fwd Diagnoses Dyspnea R06.00 Cough R05.9 Mild aortic stenosis I35.0 Obesity E66.9 Diabetes 1.5, managed as type 2 E13.9 Hyperlipidemia E78.5 HTN (hypertension) I10 CVA (cerebral vascular accident) I63.9
[2021-09-15] MEDS: insulin lispro 100 unit/1 mL SUBCUT ×3 (12:13→20:34)
[2021-09-15 17:14] LABS: Glucose Point of Care 296 mg/dL (70-110)
[2021-09-15 20:37] LABS: Glucose Point of Care 285 mg/dL (70-110)
[2021-09-15 20:44] LABS: Influenza A Not Detected (NOT DETECT); Influenza A H1 Not Detected (NOT DETECT); Influenza A H1-2009 Not Detected (NOT DETECT); Influenza A H3 Not Detected (NOT DETECT); Influenza B Not Detected (NOT DETECT); Results from Genmark
[2021-09-15] MEDS: budesonide 0.5 mg/2 mL Neb INHALATION (21:43)
[2021-09-15] MEDS: ipratropium-albuterol 3 mL Neb INHALATION (21:43)
[2021-09-16] VITALS (11 sets, daily range): BP systolic 108–159; BP diastolic 52–78; PULSE 71–92; RESP 16–20; TEMP 36.7–37; O2SAT 86–95
[2021-09-16] MEDS: heparin 5,000 unit/mL INJ 1 mL 5000 UNIT SUBCUT ×3 (01:06→17:19)
[2021-09-16] MEDS: vancomycin 1,500 MG/300 ML PIGGYBACK 200 MG IV (03:03)
[2021-09-16] MEDS: piperacillin-tazobactam 3.375 GM in sodium chloride 0.9% (plus) 50 ML IV (04:41)
--- NOTE | 2021-09-16 05:14 | PC.NURSE ---
SHIFT SUMMARY Has rested well. Occ harsh cough that she says makes her hurt across upper abdomen. c/o generalized aches and was medicated X1 with Tylenol. Continues to received IV antibiotics as ordered. O2 has remained at 2l per NC through night which is her baseline. SOB with exertion. Has some increased edema to BLE
[2021-09-16 05:35] LABS: Basophils % 0.3 %; Eosinophils # 0.2 10^3/uL (0.0-0.8); Eosinophils % 1.8 %; Hematocrit 35.9 % (37.0-47.0); Lymphocytes # 1.1 10^3/uL (0.8-4.8); Lymphocytes % 8.3 %; Mean Corpuscular HGB Conc 30.6 g/dL (30.0-36.0); Mean Corpuscular Hemoglobin 29.4 pg (28.0-34.0); Mean Platelet Volume 9.2 fL (7.4-10.4); Monocytes # 1.8 10^3/uL (0.2-0.9); Monocytes % 13.7 %; Neutrophils % 74.8 %; Nucleated Red Blood Cells % 0 %; Platelet Count 275 10^3/cmm (130-400); Red Blood Count 3.74 10^6/uL (4.1-5.3); Red Cell Distribution Width 13.7 % (12.1-15.1)
[2021-09-16 06:10] LABS: Blood Urea Nitrogen 21 mg/dL (8-23); Calcium 7.8 mg/dL (8.5-10.5); Carbon Dioxide 28 mmol/L (22-29); Chloride 98 mmol/L (98-107); Glucose 177 mg/dL (65-115); Magnesium 1.7 mg/dL (1.7-2.3); Osmolality Calculated 295 mOsm/kg (285-295); Sodium 139 mmol/L (136-145)
[2021-09-16 06:26] LABS: Creatinine Clr Calc Pharmacy 52.2654
[2021-09-16 06:55] LABS: Glucose Point of Care 215 mg/dL (70-110)
[2021-09-16] MEDS: budesonide 0.5 mg/2 mL Neb INHALATION ×2 (08:20→21:16)
[2021-09-16] MEDS: insulin lispro 100 unit/1 mL SUBCUT ×3 (09:08→21:29)
[2021-09-16] MEDS: bumetanide 1 mg Tablet PO (09:09)
[2021-09-16] MEDS: pantoprazole DR 40 mg Tablet PO (09:09)
[2021-09-16] MEDS: baclofen 10 mg Tablet PO (09:09)
[2021-09-16] MEDS: levothyroxine 100 mcg Tablet PO (09:09)
[2021-09-16] MEDS: gabapentin 300 mg Capsule PO ×2 (09:09→17:20)
[2021-09-16] MEDS: phenytoin ER 100 mg Capsule 300 MG PO ×2 (09:11→17:20)
[2021-09-16] MEDS: levoFLOXacin 750 mg Tablet PO (09:11)
[2021-09-16] MEDS: desvenlafaxine 50 mg Tablet PO (09:14)
--- NOTE | 2021-09-16 11:06 | PM.PN ---
Subjective Subjective: Interval history: Patient was on 3.5 L today, wanted to go to the bathroom for bowel movement, she wants to go home, her leukocytosis 13,000, afebrile, creatinine 1.1, she used a walker to go to the bathroom Magnesium 1.7 calcium 7.8 Vitals/I&O/Wt Last Vital Signs Temp 98.6 F 09/16/21 07:26 Pulse 82 09/16/21 08:25 Resp 18 09/16/21 08:21 BP 124/73 09/16/21 07:26 Pulse Ox 95 09/16/21 08:21 09/15/21 09/16/21 09/16/21 22:59 06:59 14:59 Intake Total 290 / 710 550 / 1260 290 / 290 Output Total 800 / 800 180 / 980 Balance -510 / -90 370 / 280 290 / 290 Physical Exam Narrative: EXAM NARRATIVE: Wheezing has improved currently doing well on 3.5 L which has slightly worsened since yesterday No acute respiratory distress No conversational dyspnea Fatigue and lethargic Mild signs of fluid overload with 1+ pitting edema of legs Appropriate mood and affect Diminished airflow bilaterally no active wheezing Appropriate mood and affect Nonfocal neuro exam Abdomen distended with obesity bowel sound present Data : 09/16/21 04:35 09/16/21 04:35 Micro: Microbiology 09/14/21 18:00 Blood Culture - Preliminary Blood NEGATIVE TO DATE 09/14/21 18:07 Blood Culture - Preliminary Blood NEGATIVE TO DATE 09/14/21 17:53 MRSA Culture - Final Nose 09/14/21 23:25 Legionella Urinary Antigen - Final Urine,Clean Catch Bacterial Antigens - Final A&P Assessment and plan (1) Mild aortic stenosis: Status: Acute (2) Dyspnea: Status: Acute (3) Cough: Status: Acute (4) Obesity: Status: Acute (5) Community acquired pneumonia: Status: Acute (6) Pulmonary nodule: Status: Acute Additional A&P Information Acute on chronic hypoxic secondary to left upper lobe pneumonia She has 6 mm left upper lobe pulmonary nodule will need outpatient pulmonary follow-up This could be secondary to active pneumonia Afebrile, leukocytosis 13,000 Added steroids on 09/15 Wheezing has improved continue budesonide Antibiotics deescalated At baseline uses 2 L, currently on 3.5 L will need another home O2 eval before discharge, plan to discharge her tomorrow if clinically stable improved Full code DVT prophylaxis on board: Heparin DERIC: Continue Bumex 1 mg daily, hold lisinopril, seems cardiorenal Attestations Medical Necessity Statement*: Plan to discharge her tomorrow Time Spent in Patient Care: less than 15 minutes Coding Level of Care Code Acute Computer Information Science Professor for g Fwd Diagnoses Mild aortic stenosis I35.0 Dyspnea R06.00 Cough R05.9 Obesity E66.9 Community acquired pneumonia J18.9 Pulmonary nodule R91.1
[2021-09-16 11:57] LABS: Glucose Point of Care 186 mg/dL (70-110)
[2021-09-16 17:10] LABS: Glucose Point of Care 205 mg/dL (70-110)
[2021-09-16 20:34] LABS: Glucose Point of Care 176 mg/dL (70-110)
--- NOTE | 2021-09-16 23:44 | PC.NURSE ---
i reported low o2 86 to nurse and nurse said to pump her to 3L and it got her up to 93
--- NOTE | 2021-09-17 00:09 | PC.NURSE ---
2000 Sitting up in chair sleeping. Offered to assist back to bed. Denies. J
--- NOTE | 2021-09-17 00:13 | PC.NURSE ---
2200 Pt resting in bed. Easily arouses. No distress. Call light in reach.
--- NOTE | 2021-09-17 00:27 | PC.NURSE ---
0005 Pt resting in bed. Resp even unlabored. No distress.
[2021-09-17 00:30] VITALS: O2SAT 93
[2021-09-17] MEDS: heparin 5,000 unit/mL INJ 1 mL 5000 UNIT SUBCUT ×2 (01:52→09:47)
--- NOTE | 2021-09-17 02:05 | PC.NURSE ---
0200 Sitting up in chair. Easily awakens. Requests ice water and given.
--- NOTE | 2021-09-17 04:16 | PC.NURSE ---
0400 Sitting up in chair watching tv. No distress. Assisted to bathroom per PCT. Tolerates well. Pt takes o2 off at times and sat drops to 80s. o2 reapplied with instruction to pt to keep on. sat comes up to 93%.
--- NOTE | 2021-09-17 04:24 | PC.NURSE ---
0425 pt reports IV to be out. cathalon pulled out a very small amt. flushes well. site care done. IV patent. secure with opsite and tape.
[2021-09-17] MEDS: levoFLOXacin 750 mg Tablet PO (05:43)
[2021-09-17 05:59] LABS: Basophils % 0.2 %; Eosinophils # 0.2 10^3/uL (0.0-0.8); Eosinophils % 1.6 %; Hematocrit 36.7 % (37.0-47.0); Hemoglobin 11.7 g/dL (11.5-15.3); Lymphocytes # 1.2 10^3/uL (0.8-4.8); Lymphocytes % 9.5 %; Mean Corpuscular HGB Conc 31.9 g/dL (30.0-36.0); Mean Corpuscular Hemoglobin 30.2 pg (28.0-34.0); Mean Corpuscular Volume 94.8 fl (81-99); Mean Platelet Volume 8.9 fL (7.4-10.4); Monocytes # 1.6 10^3/uL (0.2-0.9); Neutrophils # 9.15 10^3/uL (1.8-7.7); Neutrophils % 74.7 %; Nucleated Red Blood Cells % 0 %; Platelet Count 297 10^3/cmm (130-400); Red Blood Count 3.87 10^6/uL (4.1-5.3); Red Cell Distribution Width 13.4 % (12.1-15.1); White Blood Count 12.3 10^3/uL (4.0-10.0)
[2021-09-17 06:32] LABS: Procalcitonin 0.12 ng/mL (0-0.5)
[2021-09-17 06:42] LABS: Glucose Point of Care 249 mg/dL (70-110)
[2021-09-17 06:46] LABS: Anion Gap 21.9 (5-19); Blood Urea Nitrogen 18 mg/dL (8-23); Calcium 8.2 mg/dL (8.5-10.5); Carbon Dioxide 23 mmol/L (22-29); Chloride 96 mmol/L (98-107); Glucose 197 mg/dL (65-115); Osmolality Calculated 291 mOsm/kg (285-295); Potassium 3.9 mmol/L (3.5-5.1); Sodium 137 mmol/L (136-145)
--- NOTE | 2021-09-17 07:27 | PM.DCS ---
Discharge Providers Date of Admission: 09/14/21 14:20 Date of Discharge: September 17, 2021 Attending Provider at Admission: Lorene Oh MD Attending Provider at Discharge: Zak Villalobos MD Primary Care Provider: Adrienne March DO Diagnoses at Discharge Discharge Diagnosis (1) Mild aortic stenosis: Status: Acute (2) Dyspnea: Status: Acute (3) Cough: Status: Acute (4) Obesity: Status: Acute (5) Community acquired pneumonia: Status: Acute (6) Pulmonary nodule: Status: Acute Reason for Visit Reason for Visit: sob,cough,fever Hospital Course Hospital Course Admitted on 09/14, discharged on 09/17 Patient was admitted for management of hypoxia related to pneumonia. At home she uses 2 L of oxygen however at the time of discharge she qualified for 3 L. CTA ruled out pulmonary embolism. Viral etiology ruled out. She did well with ceftriaxone and azithromycin, she only received steroids on day 1. Her cultures were negative. Procalcitonin not significantly high. At the time of discharge she was given Levaquin, outpatient pulmonology referral, Bumex dose was decreased to 1 mg daily. CTA chest: 1. 6 mm left upper lobe pulmonary nodule, axial series 2, image 177. Followup as discussed below. 2. Airspace disease in the superior segment left upper lobe with air bronchograms consistent with moderate to severe focal pneumonia. 3. No pulmonary embolus or aortic dissection. 4. Mild mediastinal and mnkb-[id number]-[id number] bilateral hilar adenopathy consistent with reactive adenopathy versus sarcoidosis versus other pathology. Physical Exam Narrative: EXAM NARRATIVE: Clinically mild signs of fluid overload Doing well on 3 L nasal cannula No active wheezing Bilateral breath sounds without rhonchi or crackles Abdomen visceral obesity Soft EOMI, PERRLA Nonfocal exam Able to use walker Discharge Data Data Completed and Pending: Completed Studies During Hospitalization Category Date Time Status CT angio chest PE protcl [id number] Urge nt Cat Scan 09/14/21 12:23 Completed XR chest 1V olinda ble [id number] Urgent Exams 09/14/21 10:49 Completed Pending at discharge Category Date Time Status Blood Culture Rou marko Lab 09/14/21 18:00 Results Sputum Culture an d Gram Stain Stat Lab 09/14/21 17:12 Uncollected Labs from last 24 hours 09/17/21 09/17/21 09/17/21 06:20 04:53 04:53 WBC 12.3 H RBC 3.87 L Hgb 11.7 Hct 36.7 L MCV 94.8 MCH 30.2 MCHC 31.9 RDW 13.4 Plt Count 297 MPV 8.9 Neut % (Auto) 74.7 Lymph % (Auto) 9.5 [place] % (Auto) 13.0 Eos % (Auto) 1.6 Baso % (Auto) 0.2 Neut # (Auto) 9.15 H Lymph # (Auto) 1.2 [place] # (Auto) 1.6 H Eos # (Auto) 0.2 Baso # (Auto) 0.0 Nucleated RBC % (a uto) 0 Nucleated RBCs # 0.0 Sodium 137 Potassium 3.9 Chloride 96 L Carbon Dioxide 23 Anion Gap 21.9 H BUN 18 Creatinine 0.9 GFR Calculation Not Reportable Glucose 197 H POC Glucose 249 H Calculated Osmolal ity 291 Calcium 8.2 L Procalcitonin 0.12 09/16/21 09/16/21 09/16/21 20:26 17:04 11:15 WBC RBC Hgb Hct MCV MCH MCHC RDW Plt Count MPV Neut % (Auto) Lymph % (Auto) [place] % (Auto) Eos % (Auto) Baso % (Auto) Neut # (Auto) Lymph # (Auto) [place] # (Auto) Eos # (Auto) Baso # (Auto) Nucleated RBC % (a uto) Nucleated RBCs # Sodium Potassium Chloride Carbon Dioxide Anion Gap BUN Creatinine GFR Calculation Glucose POC Glucose 176 H 205 H 186 H Calculated Osmolal ity Calcium Procalcitonin Vitals: Last Vital Signs Temp 98.1 F 09/16/21 23:44 Pulse 78 09/16/21 23:44 Resp 18 09/16/21 23:44 BP 118/65 09/16/21 23:44 Pulse Ox 93 09/17/21 00:30 Discharge Plan Discharge Patient Disposition: Home Condition: Stable Prescriptions: New bumetanide 1 mg Tablet 1 mg PO DAILY Qty: 60 RF: 3 levofloxacin 750 mg tablet 750 mg PO DAILY 7 Days Qty: 7 RF: 0 albuterol sulfate 90 mcg/actuation HFA aerosol inhaler 2 inh inhalation Q6H PRN (Reason: shortness of breath or wheezing) Qty: 8.5 RF: 2 Continued baclofen 10 mg tablet 10 mg PO TID RF: 0 phenytoin sodium extended [Dilantin Extended] 100 mg capsule 300 mg PO BID RF: 0 fluticasone propionate 50 mcg/actuation spray,suspension 1 spray INTRANASAL DAILY RF: 0 gabapentin 300 mg capsule 300 mg PO BID RF: 0 levothyroxine 100 mcg capsule 100 mcg PO DAILY RF: 0 lisinopril 5 mg tablet 5 mg PO DAILY RF: 0 meclizine 25 mg tablet 25 mg PO TID PRN (Reason: Dizziness) RF: 0 metformin 1,000 mg tablet 1,000 mg PO BID RF: 0 esomeprazole magnesium [Nexium] 20 mg capsule,delayed release(DR/EC) 20 mg PO DAILY RF: 0 oxycodone-acetaminophen [Percocet] 10-325 mg tablet 1 tab PO Q4H PRN (Reason: Pain) RF: 0 desvenlafaxine succinate [Pristiq] 50 mg tablet extended release 24 hr 50 mg PO DAILY RF: 0 Tradjenta 5 mg tablet 5 mg PO DAILY RF: 0 cetirizine [Zyrtec] 10 mg tablet 10 mg PO DAILY PRN (Reason: Allergy Symptoms) RF: 0 Vitamin D2 1,250 mcg (50,000 unit) Capsule 1,250 mcg PO DAILY RF: 0 potassium chloride 20 mEq Tablet Extended Release 20 meq PO DAILY RF: 0 Discontinued bumetanide 2 mg tablet 2 mg PO BID RF: 0 Discharge Orders: Discharge Order (Routine); Ordered 09/17/21 Ordered By: Zak Villalobos Other Ambulatory Orders: XR chest 2V insp/exp [id number] (Routine) Timeframe: 6 Weeks Facility: [facility] - Location: Radiology [place] [facility] Ordered By: Zak Villalobos Referrals: [facility] [Outside] [facility] [Outside] Datar,Ivan Forrester MD [Physician] - 10/02/21 8:15 am (Pulm nodule ) Adrienne March DO [Primary Care Provider] - 09/23/21 11:20 am Discharge Diet: Cardiac Discharge Activity: Increase activity as tolerated Patient Instructions: Bumetanide (By mouth), Albuterol (By breathing), Levofloxacin (By mouth), Pneumonia (GEN), Opioid Safety Activity Restrictions/Additional Instructions: [place] PLEASE GO TO [facility] [phone] FOR CHEST EXRAY FOR FOLLOW UP PLEASE TAKE THE DOCTOR ORDER SHEET WITH YOU Discharge Attestations Time Spent in Discharge Care*: less than 30 min Quality Metrics Clinical Quality Measures During this hospital stay, did patient experience: None Coding Level of Care Code Acute Chg FW ME note Diagnoses Mild aortic stenosis I35.0 Dyspnea R06.00 Cough R05.9 Obesity E66.9 Community acquired pneumonia J18.9 Pulmonary nodule R91.1
[2021-09-17 07:44] VITALS: BP 144/64; PULSE 57; RESP 18; TEMP 36.9; O2SAT 94
[2021-09-17] MEDS: bumetanide 1 mg Tablet PO (09:46)
[2021-09-17] MEDS: levothyroxine 100 mcg Tablet PO (09:46)
[2021-09-17] MEDS: phenytoin ER 100 mg Capsule 300 MG PO (09:46)
[2021-09-17] MEDS: pantoprazole DR 40 mg Tablet PO (09:46)
[2021-09-17] MEDS: gabapentin 300 mg Capsule PO (09:46)
[2021-09-17] MEDS: baclofen 10 mg Tablet PO (09:46)
[2021-09-17] MEDS: insulin lispro 100 unit/1 mL SUBCUT (09:46)
[2021-09-17] MEDS: desvenlafaxine 50 mg Tablet PO (09:48)
[2021-09-17] MEDS: acetaminophen 325 mg Tablet 650 MG PO (09:48)
--- NOTE | 2021-09-17 09:54 | PC.SOCIAL ---
Pg 2 IMM Explained to pt IMM. No questions voiced. Provided pt a copy. Initialed, dated, & timed a copy & placed in chart.
--- NOTE | 2021-09-17 10:14 | PC.CHAP ---
Pastoral Care Encounter/Spiritual Assessment Type of Contact [] Declined continuous absorption process operator visit [] Patient/Family/Request visit [] Outpatient visit [] Follow-up visit [] Physician referral [] Code/Alert [x] Routine visit [] Staff referral [] Actively dying [] Patient sleeping [] Family support [] [] Out of room [] Palliative care [] [] Receiving care in room [] Pre-surgical visit [] Trauma [] Long length of stay [] ICU visit [] Other: Relational/Emotional Strength [x] Patient feels connected with others/family/visitors/staff [] Distress [] Loneliness/isolation [] Abandonment Spirituality of Patient [x] Person of Sunita [] Attends Temple of their Sunita [x] Believes in Prayer [] Reads Bible or Rastafari materials [] There are Spiritual issues to be addressed Lens Molder Interventions [x] Prayer [x] Active listening [x] Non-anxious presence [] Spiritual/emotional support [] Crisis/trauma care [] Spiritual counseling [] Bereavement support [] Provided bereavement packet [] Provided Bible/devotional materials [] Provided toy/stuffed animal, coloring book to patient or family member [] Provided Communion [] Anointing/[place] [] Salvation [] Completed spiritual assessment [] Other: Impact on Illness or Injury [] Angry [] Fearful [] Anxious [] Often cries [] Exhaustion [] Unable to work [] Unable to attend bahai [] Unable to walk/stand [] Unable to read [] Unable to drive [] Unable to eat/drink [] Unable to sleep [] Unable to be with family [] Patient intubated [] Other: Sumpatient says she feeling betterr Time spent with patient 10 min
[2021-09-17 10:25] VITALS: BP 144/64; PULSE 57; RESP 18; TEMP 36.9; O2SAT 94
--- NOTE | 2021-09-17 10:34 | PC.NURSE ---
Patient is A&Ox3. Respirations even and non-labored on oxygen. Reviewed discharge with patient and family at this time. Patient and family verbalized understanding of follow up appointment and medications. Patient wheel chaired to private car. This discharge was completed by Hollie CURIEL for Lashon CURIEL. Hollie CURIEL did not provided any care for this patient.
== END 2021-09-17 10:26 | disposition home or self-care (01) | DRG 193 ==
LOC: ER 15:19 → MEDSURG 16:47
PROVIDERS: Admitting Provider Internal Medicine; Emergency Provider Emergency Medicine; PCP Family Medicine; Visit Provider Internal Medicine
DX: J18.9 Pneumonia, unspecified organism (principal); J96.21 Acute and chronic respiratory failure with hypoxia; J44.0 Chronic obstructive pulmonary disease with (acute) lower respiratory infection; Z68.41 Body mass index [BMI] 40.0-44.9, adult; Z99.81 Dependence on supplemental oxygen; Z86.73 Personal history of transient ischemic attack (TIA), and cerebral infarction without residual deficits; E13.9 Other specified diabetes mellitus without complications; E78.5 Hyperlipidemia, unspecified; E03.9 Hypothyroidism, unspecified; I35.0 Nonrheumatic aortic (valve) stenosis; E66.9 Obesity, unspecified; I10 Essential (primary) hypertension; D09.8 Carcinoma in situ of other specified sites; R91.8 Other nonspecific abnormal finding of lung field; R59.0 Localized enlarged lymph nodes; Z79.84 Long term (current) use of oral hypoglycemic drugs
CPT/HCPCS: 36415; 36416; 71045; 71275; 80048; 80053; 81003; 82962; 83735; 83880; 84100; 84145; 84484; 85025; 85610; 86403; 87040; 87449; 87631; 87635; 87641; 93005; 94640; 94664; 96372; 97116; 97161; 97165; 97530; J0696; J1644; J1815; J2543; J3370; J7512; J7626; Q9967

== ENCOUNTER 2024-08-07 13:20 | Emergency (ER) | payer MEDICARE, MEDICAID, SELFPAY ==
[2024-08-07 13:32] VITALS: BP 115/56; PULSE 65; RESP 20; TEMP 36.8; O2SAT 96; BMI 43.9
--- NOTE | 2024-08-07 13:39 | ECG_ITS ---
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 Measurements Intervals [place] Rate: 55 P: 0 HI: 0 QRS: 231 QRSD: 141 T: -26 QT: 454 QTc: 434 Interpretive Statements normal sinus rhythm RIGHT AXIS DEVIATION [QRS AXIS > 100] RIGHT BUNDLE BRANCH BLOCK [120+ ms QRS DURATION, UPRIGHT V1, 40+ ms S IN I/aVL/V4/V5/V6] ANTEROSEPTAL MYOCARDIAL INFARCTION , OF INDETERMINATE AGE [40+ ms Q WAVE IN V1-V4] MODERATE T-WAVE ABNORMALITY, CONSIDER LATERAL ISCHEMIA [-0.1+ mV T-WAVE IN I/aVL/V5/V6] Compared to ECG 09/14/2021 16:14:14 T-wave abnormality now present. Possible ischemia now present Sinus rhythm no longer present. Myocardial infarct finding still present Electronically Signed On 08-07-2024 19:19:12 CONTRACT LAW SPECIALIST by Stanley Miller M.D. [email or web address]
--- NOTE | 2024-08-07 13:39 | XR_ITS ---
WS: [id number] Exam: XR chest 1V portable [id number] Date/Time of Exam: 08/07/2024 1:48 PM Reason For Exam: dyspnea/cough Comparison 09/14/2021. There is cardiac enlargement increased pulmonary vascularity. RIGHT basal pleural effusion and compre ssive atelectasis noted. Small LEFT basal pleural effusion. No pneumothorax. Bony structures are inta ct. Fusion hardware in the lower C-spine. XR/XR chest 1V portable [id number] IMPRESSION: 1. Cardiac enlargement with increased pulmonary vascularity and RIGHT basal ple ural effusion most likely indicating CHF. Compressive atelectasis of the RIGHT lower lobe. Small LEFT pleural effusion.
--- NOTE | 2024-08-07 13:39 | CT_ITS ---
WS: [id number] CT HEAD TECHNIQUE: Noncontrast CT of the head obtained from the skullbase to the vertex. CLINICAL INFORMATION: slurred speach onet 2 days ago COMPARISON: None. DLP: 1108.[address] scans at [facility] use at least one of these dose optimization techniques: automated e xposure control; mA and/or kV adjustment per patient size (includes targeted exams where dose is matc hed to clinical indication); or iterative reconstruction. FINDINGS: No evidence of intracranial hemorrhage or mass effect. Ventricular system and basal cisterns are napier nt. Mild small vessel changes with moderate parenchymal volume loss. No extra-axial fluid collections . No evidence of mass or mass effect. Vascular calcification. Small focus of extra-axial calcification LEFT temporal lobe measuring 5 mm may present incidental dys trophic calcification or small incidental calcified meningioma. Tiny incidental lipomas along the fal x. Paranasal sinuses and mastoid air cells are well aerated. .Normal visualized soft tissues. CT/CT head wo con* [id number] IMPRESSION: 1. No evidence of intracranial hemorrhage or mass effect. 2. No acute intracranial findings. Notified Pedro Hodgson DO at 08/07/2024 2:14 PM.
[2024-08-07 13:51] LABS: Basophils # 0.1 10^3/uL (0.0-0.1); Basophils % 0.6 %; Eosinophils # 0.3 10^3/uL (0.0-0.8); Eosinophils % 2.9 %; Hematocrit 34.4 % (36-47); Lymphocytes # 1.5 10^3/uL (0.8-4.8); Lymphocytes % 17.7 %; Mean Corpuscular HGB Conc 30.5 g/dL (30-55); Mean Corpuscular Hemoglobin 29.9 pg (27-33); Mean Platelet Volume 8.7 fL (7.4-10.4); Monocytes # 0.8 10^3/uL (0.2-0.9); Monocytes % 9.8 %; Neutrophils # 5.88 10^3/uL (1.8-7.7); Neutrophils % 68.5 %; Nucleated Red Blood Cells % 0 %; Platelet Count 206 10^3/cmm (157-399); Red Blood Count 3.51 10^6/uL (3.85-5.65); Red Cell Distribution Width 13.7 % (12.1-15.1); White Blood Count 8.58 10^3/uL (3.29-11.43)
--- NOTE | 2024-08-07 14:06 | W.ED.WEAKNES ---
HPI - Weakness General: Chief complaint: Weakness Stated complaint: weakness Time Seen by Provider: 08/07/24 13:38 History of Present Illness: 78-year-old female presents emergency room complaints of slurred speech for the last 2 days. Also some lower extremity edema. She states her edema lower extremities is better than it usually is. She has a history of atrial fibrillation and is on oral anticoagulants. Patient reports she is on Eliquis however it is not on her initial last. The symptoms have been going on for several days. She denies chest pain she denies abdominal pain no dysuria urgency or frequency no fever sweats or chills. Associated symptoms: Denies chest pain, chills, dysuria or fever(s) Review of Systems Const: Denies: fever(s) or chills Card: Denies: chest pain Resp: Denies: dyspnea GI: Denies: abdominal pain : Denies: dysuria, urinary frequency or urinary urgency Musc: Denies: neck pain or back pain Skin/Breast: Denies: rash PFSH ED PFSH: Medical History (Updated 08/07/24 @ 17:22 by Pedro Hodgson DO) Seizure disorder Mild aortic stenosis Obesity Diabetes 1.5, managed as type 2 Hyperlipidemia HTN (hypertension) Hypothyroidism CVA (cerebral vascular accident) Surgical History Previous back surgery S/P hysterectomy Family History (Updated 09/15/22 @ 07:30 by Ronit Good LPN) Father Stroke Hypertension Mother Hypertension CAD (coronary artery disease) Myocardial infarction Sister Hypertension CAD (coronary artery disease) Myocardial infarction Brother CAD (coronary artery disease) Myocardial infarction Denies family history of Colon cancer Pancreatic cancer Ovarian cancer Thyroid cancer Diabetes Breast cancer Cancer Uterine cancer Social History Smoking and tobacco/nicotine status: never used tobacco/nicotine Household members: spouse Marital status: Physical Exam Const: COMMON NORMALS: no acute distress GENERAL APPEARANCE: cooperative and comfortable ORIENTATION/CONSCIOUSNESS: Yes awake, Yes oriented to person, Yes oriented to place and Yes oriented to time HENMT: COMMON NORMALS: normocephalic, atraumatic and hearing grossly normal bilaterally HEAD & SCALP: normocephalic and atraumatic Resp: COMMON NORMALS: normal respiratory effort, No retractions and No use of accessory muscles AUSCULTATION: crackles Cardio: COMMON NORMALS: regular rate, regular rhythm and No murmurs present (Cardio) RATE: regular rate RHYTHM: regular rhythm GI: COMMON NORMALS: Soft to palpation and No hepatosplenomegaly present AUSCULTATION: Yes normoactive bowel sounds PALPATION: Yes Soft to palpation, No Tenderness to palpation present (GI), No Guarding due to palpation present (GI) and Yes No hepatosplenomegaly present Extremity: COMMON NORMALS: normal to inspection, capillary refill normal, no clubbing, cyanosis or edema, no calf tenderness and no pedal edema Neuro: SENSORIUM/ORIENTATION: Yes oriented to person, Yes oriented to place and Yes oriented to time Skin: COMMON NORMALS: no rashes or lesions noted GENERAL SKIN EXAM: no rashes or lesions noted Course Vital Signs: Vital signs: Vital Signs Temperature 98.3 F 08/07/24 13:32 Pulse Rate 52 L 08/07/24 15:57 Respiratory Rate 20 H 08/07/24 13:32 Blood Pressure 123/58 08/07/24 15:57 Pulse Oximetry 96 08/07/24 15:57 Oxygen Delivery Me thod Room Air 08/07/24 15:57 MDM - Weakness Medical Decision Making Stroke score is negative except for subjective report of difficulty with speech. Her speech did improve while she was here she had symptoms for several days prior to this. CT head was negative. Chest x-ray read is increased fluid we will have her double her Bumex to 1 mg twice a day for the next 3 days recheck with primary care doctor. Will also set her up for outpatient follow-up with MRI and neurology Lab Data 08/07/24 13:45 08/07/24 13:45 Radiology Impressions Chest X-Ray 08/07/24 13:39 IMPRESSION: 1. Cardiac enlargement with increased pulmonary vascularity and RIGHT basal pleural effusion most likely indicating CHF. Compressive atelectasis of the RIGHT lower lobe. Small LEFT pleural effusion. Head CT 08/07/24 13:39 IMPRESSION: 1. No evidence of intracranial hemorrhage or mass effect. 2. No acute intracranial findings. Notified Pedro Hodgson DO at 08/07/2024 2:14 PM. Laboratory Results WBC 8.58 10^3/uL (3.29-11.43) 11/18/24 13:45 RBC 3.51 10^6/uL (3.85-5.65) L 08/07/24 13:45 Hgb 10.50 g/dL (11.27-16.99) L 08/07/24 13:45 Hct 34.4 % (36-47) L 08/07/24 13:45 MCV 98.0 fl (85-98) 08/07/24 13:45 MCH 29.9 pg (27-33) 08/07/24 13:45 MCHC 30.5 g/dL (30-55) 08/07/24 13:45 RDW 13.7 % (12.1-15.1) 08/07/24 13:45 Plt Count 206 10^3/cmm (157-399) 08/07/24 13:45 MPV 8.7 fL (7.4-10.4) 08/07/24 13:45 Neut % (Auto) 68.5 % 08/07/24 13:45 Lymph % (Auto) 17.7 % 08/07/24 13:45 [place] % (Auto) 9.8 % 08/07/24 13:45 Eos % (Auto) 2.9 % 08/07/24 13:45 Baso % (Auto) 0.6 % 08/07/24 13:45 Neut # (Auto) 5.88 10^3/uL (1.8-7.7) 08/07/24 13:45 Lymph # (Auto) 1.5 10^3/uL (0.8-4.8) 08/07/24 13:45 [place] # (Auto) 0.8 10^3/uL (0.2-0.9) 08/07/24 13:45 Eos # (Auto) 0.3 10^3/uL (0.0-0.8) 08/07/24 13:45 Baso # (Auto) 0.1 10^3/uL (0.0-0.1) 08/07/24 13:45 Nucleated RBC % (auto) 0 % 08/07/24 13:45 Nucleated RBCs # 0.0 /100WBC 08/07/24 13:45 Sodium 135 mmol/L (136-145) L 08/07/24 13:45 Potassium 4.9 mmol/L (3.5-5.1) 08/07/24 13:45 Chloride 102 mmol/L (98-107) 08/07/24 13:45 Carbon Dioxide 26 mmol/L (22-29) 08/07/24 13:45 Anion Gap 11.9 (5-19) 08/07/24 13:45 BUN 18 mg/dL (8-23) 08/07/24 13:45 Creatinine 1.0 mg/dL (0.5-0.9) H 08/07/24 13:45 GFR Calculation Not Reportable 08/07/24 13:45 Glucose 186 mg/dL (65-115) H 08/07/24 13:45 Calculated Osmolality 287 mOsm/kg (285-295) 08/07/24 13:45 Calcium 6.7 mg/dL (8.5-10.5) L 08/07/24 13:45 Total Bilirubin 0.2 mg/dL (0.15-1.2) 08/07/24 13:45 AST 19 U/L (0-32) 08/07/24 13:45 ALT 14 U/L (0-33) 08/07/24 13:45 Alkaline Phosphatase 99 U/L (35-105) 08/07/24 13:45 Total Protein 5.7 g/dL (6.6-8.7) L 08/07/24 13:45 Albumin 2.8 g/dL (3.5-5.2) L 08/07/24 13:45 Globulin 2.9 g/dL (1.3-4.6) 08/07/24 13:45 Urine Color Yellow (Yellow) 08/07/24 16:09 Urine Appearance Clear (CLEAR) 08/07/24 16:09 Urine pH 5.0 (5-7) 08/07/24 16:09 Ur Specific [place] 1.011 (1.005-1.030) 08/07/24 16:09 Urine Protein Negative (Negative) 08/07/24 16:09 Urine Glucose (UA) Negative (Normal) 08/07/24 16:09 Urine Ketones Negative (Negative) 08/07/24 16:09 Urine Blood Negative (Negative) 08/07/24 16:09 Urine Nitrate Negative (Negative) 08/07/24 16:09 Urine Bilirubin Negative (Negative) 08/07/24 16:09 Urine Urobilinogen 0.2 mg/dL (Negative) 08/07/24 16:09 Ur Leukocyte Esterase Negative (Negative) 08/07/24 16:09 Urine RBC 0-2 /hpf (0-2) 08/07/24 16:09 Urine WBC 0-5 /hpf (0-5) 08/07/24 16:09 Ur Squamous Epith Cells 0-5 /hpf (0-5) 08/07/24 16:09 Amorphous Sediment Not Reportable 08/07/24 16:09 Urine Bacteria None seen /hpf (NONE) 08/07/24 16:09 Hyaline Casts 22.33 /lpf 08/07/24 16:09 All radiology interpretation(s) finalized by discharge Discharge Plan Discharge Patient Disposition: Home Clinical Impression: Dysarthria, CHF (congestive heart failure) Condition: Stable Prescriptions: New clopidogrel 75 mg tablet 75 mg PO DAILY Qty: 30 0RF aspirin 81 mg capsule 81 mg PO DAILY Qty: 30 0RF atorvastatin 40 mg tablet 40 mg PO DAILY Qty: 30 0RF No Action Spiriva Respimat 2.5 mcg/actuation mist 2 puff inhalation DAILY Qty: 4 3RF baclofen 10 mg tablet 10 mg PO TID phenytoin sodium extended [Dilantin Extended] 100 mg capsule 300 mg PO BID fluticasone propionate 50 mcg/actuation spray,suspension 1 spray INTRANASAL DAILY gabapentin 300 mg capsule 300 mg PO BID levothyroxine 100 mcg capsule 100 mcg PO DAILY lisinopril 5 mg tablet 5 mg PO DAILY meclizine 25 mg tablet 25 mg PO TID PRN (Reason: Dizziness) metformin 1,000 mg tablet 1,000 mg PO BID esomeprazole magnesium [Nexium] 20 mg capsule,delayed release(DR/EC) 20 mg PO DAILY oxycodone-acetaminophen [Percocet] 10-325 mg tablet 1 tab PO Q4H PRN (Reason: Pain) desvenlafaxine succinate [Pristiq] 50 mg tablet extended release 24 hr 50 mg PO DAILY Tradjenta 5 mg tablet 5 mg PO DAILY cetirizine [Zyrtec] 10 mg tablet 10 mg PO DAILY PRN (Reason: Allergy Symptoms) Vitamin D2 1,250 mcg (50,000 unit) Capsule 1,250 mcg PO DAILY Rx Instructions: ON WEDNESDAYS potassium chloride 20 mEq Tablet Extended Release 20 meq PO DAILY bumetanide 1 mg Tablet 1 mg PO DAILY Qty: 60 3RF albuterol sulfate 90 mcg/actuation HFA aerosol inhaler 2 inh inhalation Q6H PRN (Reason: shortness of breath or wheezing) Qty: 8.5 2RF Discharge Orders: Discharge ED (Routine); Ordered 08/07/24 Ordered By: Pedro Hodgson Referrals: Adrienne March DO [Primary Care Provider] - Discharge Diet: Usual diet Discharge Activity: Increase activity as tolerated Patient Instructions: Opioid Safety, Pain Management Activity Restrictions/Additional Instructions: Thank you for choosing [facility] for your healthcare needs today. It is very important that you follow up as instructed or that you return to the Emergency Department should you have concerns or if your condition changes or worsens in any way. You were seen in the emergency room with complaints of difficulty with speech however this been going on for several days and is not amenable secondary tension at this point CT of your head was negative. The rest of your examination for stroke was negative. Will discharge home recommend starting on aspirin atorvastatin and clopidogrel. 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 [employer] Home Medications Medication Instructions Recorded Confirmed baclofen 10 mg tablet 10 mg PO TID 11/13/19 10/15/21 cetirizine 10 mg tablet (Zyrtec) 10 mg PO DAILY PRN Allergy Symptoms 11/13/19 10/15/21 desvenlafaxine succinate 50 mg 50 mg PO DAILY 11/13/19 10/15/21 tablet,extended release 24 hr (Pristiq) esomeprazole magnesium 20 mg 20 mg PO DAILY 11/13/19 10/15/21 capsule,delayed release (Nexium) fluticasone propionate 50 1 spray intranasal DAILY 11/13/19 10/15/21 mcg/actuation nasal spray,suspension gabapentin 300 mg capsule 300 mg PO BID 11/13/19 10/15/21 levothyroxine 100 mcg capsule 100 mcg PO DAILY 11/13/19 10/15/21 linagliptin 5 mg tablet (Tradjenta) 5 mg PO DAILY 11/13/19 10/15/21 lisinopril 5 mg tablet 5 mg PO DAILY 11/13/19 10/15/21 meclizine 25 mg tablet 25 mg PO TID PRN Dizziness 11/13/19 10/15/21 metformin 1,000 mg tablet 1,000 mg PO BID 11/13/19 10/15/21 oxycodone-acetaminophen 10 mg-325 1 tab PO Q4H PRN Pain 11/13/19 10/15/21 mg tablet (Percocet) phenytoin sodium extended 100 mg 300 mg PO BID 11/13/19 10/15/21 capsule (Dilantin Extended) ergocalciferol (vitamin D2) 1,250 1,250 mcg PO DAILY 09/14/21 10/15/21 mcg (50,000 unit) capsule (Vitamin D2) potassium chloride 20 mEq 20 meq PO DAILY 09/14/21 10/15/21 tablet,extended release Previous Rx's Medication Instructions Recorded albuterol sulfate 90 mcg/actuation 2 inh inhalation Q6H PRN shortness 09/17/21 aerosol inhaler of breath or wheezing #8.5 grams bumetanide 1 mg tablet 1 mg PO DAILY #60 tabs 09/17/21 tiotropium bromide 2.5 2 puff inhalation DAILY #4 grams 10/15/21 mcg/actuation mist for inhalation (Spiriva Respimat) aspirin 81 mg capsule 81 mg PO DAILY #30 caps 08/07/24 atorvastatin 40 mg tablet 40 mg PO DAILY #30 tabs 08/07/24 clopidogrel 75 mg tablet 75 mg PO DAILY #30 tabs 08/07/24 Allergies Allergy/AdvReac Type Severity Reaction Status Date / Time No Known Allergies Allergy Verified 10/15/21 11:00 NIH stroke score NIHSS Level Of Consciousness - 1a: 0 Level Of Consciousness Questions - 1b: Both Correct Level Of Consciousness Commands - 1c: Both Correct Best Gaze - 2: Normal Visual Reagan - 3: No Visual Loss Facial Palsy - 4: Normal Motor Arm Right - 5: No Drift Motor Arm Left - 5: No Drift Motor Leg Right - 6: No Drift Motor Leg Left - 6: No Drift Limb Ataxia - 7: Absent Sensory - 8: Normal Best Language - 9: No Aphasia Dysarthia - 10: Mild/Moderate Dysarthia Extinction And Inattention - 11: 0 Score Total Score: 1
[2024-08-07 14:07] VITALS: BP 127/81; PULSE 65; O2SAT 91
[2024-08-07 14:07] LABS: Alanine Aminotransferase 14 U/L (0-33); Albumin Level 2.8 g/dL (3.5-5.2); Alkaline Phosphatase 99 U/L (35-105); Blood Urea Nitrogen 18 mg/dL (8-23); Calcium 6.7 mg/dL (8.5-10.5); Carbon Dioxide 26 mmol/L (22-29); Chloride 102 mmol/L (98-107); Creatinine Clr Calc Pharmacy 55.6125; Globulin 2.9 g/dL (1.3-4.6); Glucose 186 mg/dL (65-115); Osmolality Calculated 287 mOsm/kg (285-295); Sodium 135 mmol/L (136-145); Total Bilirubin 0.2 mg/dL (0.15-1.2); Total Protein 5.7 g/dL (6.6-8.7)
[2024-08-07 14:14] LABS: Anion Gap 11.9 (5-19); Aspartate Amino Transferase 19 U/L (0-32); Potassium 4.9 mmol/L (3.5-5.1)
[2024-08-07 15:00] VITALS: BP 132/59; PULSE 53; O2SAT 93
[2024-08-07 15:57] VITALS: BP 123/58; PULSE 52; O2SAT 96
[2024-08-07 16:16] LABS: Bilirubin Urine Negative (Negative); Blood Urine Negative (Negative); Glucose Urine UA Negative (Normal); Ketones Urine Negative (Negative); Leukocyte Esterase Urine Negative (Negative); Nitrate Urine Negative (Negative); Protein Urine Negative (Negative); Specific Gravity, Urine 1.011 (1.005-1.030); Urine Appearance Clear (CLEAR); Urine Color Yellow (Yellow); Urobilinogen Urine 0.2 mg/dL (Negative)
[2024-08-07 16:21] LABS: Add Urine Microscopic? YES; Bacteria Urine None Seen /hpf; Hyaline Casts Urine 22.33 /lpf; RBC Urine 0-2 /hpf (0-2); Squamous Epithelial Cell Urine 0-5 /hpf (0-5); WBC Urine 0-5 /hpf (0-5)
[2024-08-07 16:37] LABS: Add Urine Culture? No; UA Slide Review UA Slide Review Perf
[2024-08-07 18:18] VITALS: BP 112/50; PULSE 50; O2SAT 98
--- NOTE | 2024-08-11 07:07 | DCPLANNER ---
faxed mri to scheduling and message neuro for er f/u
== END 2024-08-07 18:20 | disposition home or self-care (01) ==
PROVIDERS: Emergency Provider Family Medicine; PCP Family Medicine
DX: R47.1 Dysarthria and anarthria (principal); E13.9 Other specified diabetes mellitus without complications; E78.5 Hyperlipidemia, unspecified; I11.0 Hypertensive heart disease with heart failure; I50.9 Heart failure, unspecified; Z86.73 Personal history of transient ischemic attack (TIA), and cerebral infarction without residual deficits
CPT/HCPCS: 70450; 71045; 80053; 81001; 85025; 93005; 99285

== ENCOUNTER 2024-08-08 11:26 | Inpatient (IN) | payer MEDICARE, MEDICAID, SELFPAY ==
[2024-08-08] VITALS (27 sets, daily range): BP systolic 94–141; BP diastolic 43–72; PULSE 40–75; RESP 10–27; TEMP 36.1–36.4; O2SAT 87–100; BMI 44.0; BMI 44.3
--- NOTE | 2024-08-08 12:35 | ED_ITS ---
HPI - Weakness 2 General: Chief complaint: Weakness Stated complaint: weakness Time Seen by Provider: 08/08/24 11:43 Source: patient and family Limitations: no limitations History of Present Illness: This patient was brought back to the emergency department at the behest of her family. Patient's sister as well as the patient provide a history. Patient states that she was in her normal state of health and this was collaborated by her sister and then sometime yesterday noted that she seemed to have some difficulty with enunciating and some of her words. There were no other associated symptoms other than the patient states that sometimes she gets a tremor in her right arm. She was seen in the emergency department here and evaluated and discharged with diagnosis of exacerbation of heart failure. Sister reports that she was recently hospitalized for sepsis earlier this fall and is not seemingly back to her baseline since that time. Patient states that she has not had any fevers or chills. She states that she does not have any headache. She states that she feels globally weak but no focal weakness no focal numbness etc. There is no associated headache. She has not had any falls. He does have a history of atrial fibrillation and does take a blood thinning medication as well. She currently denies any chest pain. Shortness of breath etc. She does have a history of COPD and wears oxygen at home at approximately 2 L and has had that turned up to 3 L recently. She is not currently a tobacco user. No known to exposure to infectious disease. She lives with her adult son. She states that she is not taking any excess of any of her medications and has been taking them as prescribed. He is not present during this initial interview. Per the patient and the sister her son is not ill and there isheaters or other potential source of carbon Monoxide in the home. Associated symptoms: Reports easy bruising; Denies chest pain, chills, fever(s), headache(s), nausea, syncope or vomiting Review of Systems 2 Const: Denies: fever(s) or chills Eyes: Denies: change in vision Card: Reports: irregular heart rhythm; Denies: chest pain, syncope or pre-syncope Resp: Denies: productive cough or non-productive cough GI: Denies: nausea, vomiting or diarrhea Neuro: Reports: Slurred speech present; Denies: headache(s), numbness in extremities, dizziness, vertigo or seizure-like activity Vipin/Lymph: Reports: easy bruising PFSH ED 2 PFSH: Medical History Seizure disorder Mild aortic stenosis Obesity Diabetes 1.5, managed as type 2 Hyperlipidemia HTN (hypertension) Hypothyroidism CVA (cerebral vascular accident) Surgical History Previous back surgery S/P hysterectomy Family History Father Stroke Hypertension Mother Hypertension CAD (coronary artery disease) Myocardial infarction Sister Hypertension CAD (coronary artery disease) Myocardial infarction Brother CAD (coronary artery disease) Myocardial infarction Denies family history of Colon cancer Pancreatic cancer Ovarian cancer Thyroid cancer Diabetes Breast cancer Cancer Uterine cancer Social History Smoking and tobacco/nicotine status: never used tobacco/nicotine Household members: spouse Marital status: Physical Exam 2 Narrative: EXAM NARRATIVE: She is a morbidly obese lady who makes good eye contact but occasionally will seemingly drift off and then is easily aroused back to interaction with loud voice. She has some affected speech at times but does not seem to be consistent throughout her entire conversation. She does make eye contact and her answers are appropriate to the situation. Const: COMMON NORMALS: patient oriented x3 and alert GENERAL APPEARANCE: c ooperative NUTRITIONAL APPEARANCE: obese ORIENTATION/CONSCIOUSNESS: Yes awake, Yes oriented to person and Yes oriented to place HENMT: COMMON NORMALS: Normal nasal mucous membranes and turbinates present, moist oral mucous membranes and oropharynx normal HEAD & SCALP: normal to inspection FACE & SINUS: normal facial exam and face symmetric NOSE: N ormal nasal mucous membranes and turbinates present Eye: COMMON NORMALS: Equal, round and reactive pupils present, EOMs intact bilaterally and conjunctivae normal CONJUNCTIVA: Yes conjunctivae normal P UPIL: Yes Equal, round and reactive pupils present Neck/C-Spine: COMMON NORMALS: full ROM, no lymphadenopathy, no JVD and No carotid bruits Resp: COMMON NORMALS: normal respiratory effort, No retractions, No use of accessory muscles and clear to auscultation bilaterally EFFORT & INSPECTION: Yes able to speak in complete sentences AUSCULTATION: clear to auscultation bilaterally and diminished lung sounds Cardio: COMMON NORMALS: no JVD, regular rate, regular rhythm, No murmurs present (Cardio) and Peripheral pulses 2+ throughout RATE: regular rate R HYTHM: regular rhythm PERIPHERAL PULSES: Peripheral pulses 2+ throughout GI: COMMON NORMALS: Soft to palpation and non-tender PALPATION: Yes Soft to palpation Back/Pelvis: COMMON NORMALS: no thoracic nor lumbar tenderness and straight leg raise negative bilaterally Extremity: COMMON NORMALS: no calf tenderness NARRATIVE EXTREMITY EXAM: Both lower extremities are remarkable for pretibial edema bilaterally. Her left leg is remarkable for a area of significant erythema and warmth to the left lateral leg measuring approximately 8 to 10 cm x 15 to 18 cm. There is no proximal lymphangitis or lymphadenopathy noted. Right lower extremity has minimal erythema to the anterior lateral portion of the right lower leg. No proximal lymphangitis or lymphadenopathy. Neuro: ROSALINDA COMA SCALE: document GCS findings Rosalinda coma scale eye opening: Spontaneous Rosalinda coma scale verbal response: Orientated Rosalinda coma scale motor response: Obey commands Rosalinda coma scale total score: 15 COMMON NORMALS: patient oriented x3, moves all extremities, no focal motor deficits and no sensory deficits noted SENSORIUM/ORIENTATION: Yes alert, Yes oriented to person and Yes oriented to place SPEECH: Other neuro speech findings (Intermittent dysarthria with some speech) OTHER: I would place her NIH score at this time at 0 given the intermittent nature of her speech findings otherwise no focal findings Psych: COMMON NORMALS: mental status grossly normal Skin: NARRATIVE SKIN EXAM: Skin with multiple areas of ecchymosis particular on the left arm with multiple small Estela abrasions suggestive of possible animal scratches. She has the area of erythema noted markedly on the left lower leg as well as minimally on the right lower leg. Course 2 Reevaluation(s): Reevaluation #1: ABG does not show elevation in carbon monoxide levels however does have a respiratory acidosis with some CO2 retention. Not an extreme amount but this certainly may be contributing to her current presentation. Will go ahead and initiate BiPAP. She does have a chest x-ray which shows right lower lobe infiltrate which may also be a contributing factor to her current presentation. Time: 13:43 Consultations: Consultation #1: Discussed with Dr. Oh who agreed to place the patient in the hospital for further care Time: 14:51 Vital Signs: Vital signs: Vital Signs Temperature 97.6 F 08/08/24 11:31 Pulse Rate 49 L 08/08/24 14:31 Respiratory Rate 20 H 08/08/24 11:31 Blood Pressure 115/59 08/08/24 14:31 Pulse Oximetry 95 08/08/24 14:31 Oxygen Delivery Me thod BiPAP 08/08/24 14:31 Oxygen Flow Rate 3 08/08/24 11:31 Fraction of Inspir ed Oxygen 36 08/08/24 13:44 MDM - Weakness Medical Decision Making Patient presented as noted in history of present illness. She had a workup in the emergency department yesterday which included a unremarkable head CT. Her intermittent nature of her her dysarthria or slurred speech does not suggest a central nervous etiology at this point however additional workup will needed to be engaged to determine if it is medication effect, hypoxia or other potential etiologies to her presentation. The patient's chest x-ray suggested possible developing right lower lobe infiltrate and this combined with her increased oxygen requirement likely indicative of possible infectious process although she also has an elevation in her BNP which makes her mixed picture of possible congestive heart failure as well. She does have a slight bump in her troponin however prior troponins have been slightly elevated and given her exacerbation heart failure a slight elevation of troponin would not be unexpected does not appear to be ACS at this time but serial troponins will be necessary. She also has a slight elevation in her potassium without any EKG changes or rhythm issues but we will repeat that level as well. Her intermittent somnolence is likely due to her combination of her medical issues and not related to a central nervous system event given her intermittent nature of its presentation today as well as her CT being negative yesterday. If any constellation of her multiple problems she will need to be admitted for further care and treatment and evaluation. Lab Data I reviewed the patient's lab results. 08/08/24 13:17 08/08/24 13:17 Radiology Impressions Chest X-Ray 08/08/24 12:46 IMPRESSION: 1. RIGHT basilar atelectasis and/or infiltrate. Small RIGHT basal pleural effusion. 2. Cardiac enlargement. Small LEFT pleural effusion. Overall, no change since the last exam. Laboratory Results WBC 10.93 10^3/uL (3.29-11.43) 08/08/24 13:17 RBC 3.90 10^6/uL (3.85-5.65) 08/08/24 13:17 Hgb 12.00 g/dL (11.27-16.99) 08/08/24 13:17 Hct 37.6 % (36-47) 08/08/24 13:17 MCV 96.4 fl (85-98) 08/08/24 13:17 MCH 30.8 pg (27-33) 08/08/24 13:17 MCHC 31.9 g/dL (30-55) 08/08/24 13:17 RDW 13.7 % (12.1-15.1) 08/08/24 13:17 Plt Count 239 10^3/cmm (157-399) 08/08/24 13:17 MPV 8.4 fL (7.4-10.4) 08/08/24 13:17 Neut % (Auto) 65.4 % 08/08/24 13:17 Lymph % (Auto) 21.1 % 08/08/24 13:17 [place] % (Auto) 9.1 % 08/08/24 13:17 Eos % (Auto) 2.0 % 08/08/24 13:17 Baso % (Auto) 1.1 % 08/08/24 13:17 Neut # (Auto) 7.14 10^3/uL (1.8-7.7) 08/08/24 13:17 Lymph # (Auto) 2.3 10^3/uL (0.8-4.8) 08/08/24 13:17 [place] # (Auto) 1.0 10^3/uL (0.2-0.9) H 08/08/24 13:17 Eos # (Auto) 0.2 10^3/uL (0.0-0.8) 08/08/24 13:17 Baso # (Auto) 0.1 10^3/uL (0.0-0.1) 08/08/24 13:17 Nucleated RBC % (auto) 0 % 08/08/24 13:17 Nucleated RBCs # 0.0 /100WBC 08/08/24 13:17 Specimen Type Arterial 08/08/24 13:14 Sample Site Radial, right 08/08/24 13:14 ABG pH 7.30 (7.35-7.45) L 08/08/24 13:14 ABG pCO2 62.8 mmHg (35-45) H* 08/08/24 13:14 ABG pO2 86.9 mmHg (80.0-100.0) 08/08/24 13:14 ABG PO2/FiO2 Ratio 241 08/08/24 13:14 ABG HCO3 30.5 mmol/L (22-26) H 08/08/24 13:14 ABG Base Excess 2.6 mmol/L (-2.0-2.0) H 08/08/24 13:14 Eliazar Test Pos 08/08/24 13:14 Hematocrit 36.1 % (37-47) L 08/08/24 13:14 O2 Delivery Device Nc 08/08/24 13:14 O2 Liters/Min 4.0 % 08/08/24 13:14 FiO2 36.0 % 08/08/24 13:14 Leather Sponger ID [email or web address] 08/08/24 13:14 Sodium 133 mmol/L (136-145) L 08/08/24 13:17 Potassium 6.3 mmol/L (3.5-5.1) H 08/08/24 13:17 Chloride 99 mmol/L (98-107) 08/08/24 13:17 Carbon Dioxide 25 mmol/L (22-29) 08/08/24 13:17 Anion Gap 15.3 (5-19) 08/08/24 13:17 BUN 21 mg/dL (8-23) 08/08/24 13:17 Creatinine 1.1 mg/dL (0.5-0.9) H 08/08/24 13:17 GFR Calculation Not Reportable 08/08/24 13:17 Glucose 157 mg/dL (65-115) H 08/08/24 13:17 POC Glucose 166 mg/dL (70-110) H 08/08/24 13:13 Calculated Osmolality 282 mOsm/kg (285-295) L 08/08/24 13:17 Calcium 8.5 mg/dL (8.5-10.5) 08/08/24 13:17 Magnesium 1.6 mg/dL (1.7-2.3) L 08/08/24 13:17 Total Bilirubin 0.2 mg/dL (0.15-1.2) 08/08/24 13:17 AST 20 U/L (0-32) 08/08/24 13:17 ALT 15 U/L (0-33) 08/08/24 13:17 Alkaline Phosphatase 113 U/L (35-105) H 08/08/24 13:17 Troponin T Baseline 20 ng/L (0-10) H 08/08/24 13:17 NT-Pro-B Natriuret Pep 7248 pg/mL (0-450) H 08/08/24 13:17 Total Protein 6.9 g/dL (6.6-8.7) D 08/08/24 13:17 Albumin 3.2 g/dL (3.5-5.2) L 08/08/24 13:17 Globulin 3.7 g/dL (1.3-4.6) 08/08/24 13:17 TSH 3.31 uIU/mL (0.27-4.20) 08/08/24 13:17 Ethyl Alcohol < 10 mg/dL (0-10) 08/08/24 13:17 All radiology interpretation(s) finalized by discharge EKG Data EKG 1: I personally reviewed and interpreted this EKG as follows: Interpretation: Resting EKG reveals sinus bradycardia 51 bpm. Normal IA interval, QRS duration, corrected QT interval. Has a stream rightward axis. Findings are consistent with prior tracings within the system. No acute dynamic changes. Discharge Plan Discharge Patient Disposition: Admitted As Inpatient Clinical Impression: CHF (congestive heart failure), Community acquired pneumonia, Hypoxia Condition: Stable Prescriptions: No Action Spiriva Respimat 2.5 mcg/actuation mist 2 puff inhalation DAILY Qty: 4 3RF baclofen 10 mg tablet 10 mg PO TID phenytoin sodium extended [Dilantin Extended] 100 mg capsule 300 mg PO BID fluticasone propionate 50 mcg/actuation spray,suspension 1 spray INTRANASAL DAILY gabapentin 300 mg capsule 300 mg PO BID levothyroxine 100 mcg capsule 100 mcg PO DAILY lisinopril 5 mg tablet 5 mg PO DAILY meclizine 25 mg tablet 25 mg PO TID PRN (Reason: Dizziness) esomeprazole magnesium [Nexium] 20 mg capsule,delayed release(DR/EC) 20 mg PO DAILY oxycodone-acetaminophen [Percocet] 10-325 mg tablet 1 tab PO Q4H PRN (Reason: Pain) desvenlafaxine succinate [Pristiq] 50 mg tablet extended release 24 hr 50 mg PO DAILY cetirizine [Zyrtec] 10 mg tablet 10 mg PO DAILY PRN (Reason: Allergy Symptoms) Vitamin D2 1,250 mcg (50,000 unit) Capsule 1,250 mcg PO DAILY Rx Instructions: ON WEDNESDAYS potassium chloride 20 mEq Tablet Extended Release 20 meq PO DAILY albuterol sulfate 90 mcg/actuation HFA aerosol inhaler 2 inh inhalation Q6H PRN (Reason: shortness of breath or wheezing) Qty: 8.5 2RF metformin 500 mg tablet 500 mg PO BID bumetanide 2 mg tablet 2 mg PO DAILY metoprolol succinate 25 mg tablet extended release 24 hr 25 mg PO BID Eliquis 5 mg tablet 5 mg PO BID clopidogrel 75 mg tablet 75 mg PO DAILY Qty: 30 0RF aspirin 81 mg capsule 81 mg PO DAILY Qty: 30 0RF atorvastatin 40 mg tablet 40 mg PO DAILY Qty: 30 0RF Referrals: Adrienne March DO [Primary Care Provider] - Coding Level of Care Code ED Financial Analyst Intern for Chg Fwd Related Data Home Medications Medication Instructions Recorded Confirmed baclofen 10 mg tablet 10 mg PO TID 11/13/19 08/08/24 cetirizine 10 mg tablet (Zyrtec) 10 mg PO DAILY PRN Allergy Symptoms 11/13/19 08/08/24 desvenlafaxine succinate 50 mg 50 mg PO DAILY 11/13/19 08/08/24 tablet,extended release 24 hr (Pristiq) esomeprazole magnesium 20 mg 20 mg PO DAILY 11/13/19 08/08/24 capsule,delayed release (Nexium) fluticasone propionate 50 1 spray intranasal DAILY 11/13/19 10/15/21 mcg/actuation nasal spray,suspension gabapentin 300 mg capsule 300 mg PO BID 11/13/19 08/08/24 levothyroxine 100 mcg capsule 100 mcg PO DAILY 11/13/19 08/08/24 lisinopril 5 mg tablet 5 mg PO DAILY 11/13/19 10/15/21 meclizine 25 mg tablet 25 mg PO TID PRN Dizziness 11/13/19 10/15/21 oxycodone-acetaminophen 10 mg-325 1 tab PO Q4H PRN Pain 11/13/19 10/15/21 mg tablet (Percocet) phenytoin sodium extended 100 mg 300 mg PO BID 11/13/19 08/08/24 capsule (Dilantin Extended) ergocalciferol (vitamin D2) 1,250 1,250 mcg PO DAILY 09/14/21 10/15/21 mcg (50,000 unit) capsule (Vitamin D2) potassium chloride 20 mEq 20 meq PO DAILY 09/14/21 08/08/24 tablet,extended release apixaban 5 mg tablet (Eliquis) 5 mg PO BID 08/08/24 08/08/24 bumetanide 2 mg tablet 2 mg PO DAILY 08/08/24 08/08/24 metformin 500 mg tablet 500 mg PO BID 08/08/24 08/08/24 metoprolol succinate 25 mg 25 mg PO BID 08/08/24 08/08/24 tablet,extended release 24 hr Previous Rx's Medication Instructions Recorded albuterol sulfate 90 mcg/actuation 2 inh inhalation Q6H PRN shortness 09/17/21 aerosol inhaler of breath or wheezing #8.5 grams tiotropium bromide 2.5 2 puff inhalation DAILY #4 grams 10/15/21 mcg/actuation mist for inhalation (Spiriva Respimat) aspirin 81 mg capsule 81 mg PO DAILY #30 caps 08/07/24 atorvastatin 40 mg tablet 40 mg PO DAILY #30 tabs 08/07/24 clopidogrel 75 mg tablet 75 mg PO DAILY #30 tabs 08/07/24 Allergies Allergy/AdvReac Type Severity Reaction Status Date / Time No Known Allergies Allergy Verified 10/15/21 11:00
--- NOTE | 2024-08-08 12:46 | XR_ITS ---
WS: [id number] Exam: XR chest 1V portable [id number] Date/Time of Exam: 08/08/2024 12:49 PM Reason For Exam: weakness Comparison 08/07/2024. Again noted is RIGHT basilar plaque atelectasis and pleural effusion. No change. The heart remains en larged. Small LEFT basal pleural effusion. The mediastinum is normal in contour. Bony structures are intact. No pneumothorax. XR/XR chest 1V portable [id number] IMPRESSION: 1. RIGHT basilar atelectasis and/or infiltrate. Small RIGHT basal pleural effus ion. 2. Cardiac enlargement. Small LEFT pleural effusion. Overall, no change since t he last exam.
--- NOTE | 2024-08-08 12:55 | ECG_ITS ---
[facility] 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: : 1945 Requested By: Justice Funes Order Number: [id number] Reading MD: NIHARIKA LUCIANO Measurements Intervals [place] Rate: 51 P: -59 DC: 120 QRS: 233 QRSD: 144 T: -30 QT: 457 QTc: 422 Interpretive Statements SINUS BRADYCARDIA RIGHT AXIS DEVIATION [QRS AXIS > 100] RIGHT BUNDLE BRANCH BLOCK [120+ ms QRS DURATION, UPRIGHT V1, 40+ ms S IN I/aVL/V4/V5/V6] ANTERIOR MYOCARDIAL INFARCTION , OF INDETERMINATE AGE [40+ ms Q WAVE AND/OR ST/T ABNORMALITY IN V3/V4] MODERATE T-WAVE ABNORMALITY, CONSIDER LATERAL ISCHEMIA [-0.1+ mV T-WAVE IN I/aVL/V5/V6] Compared to ECG 08/07/2024 16:10:59 Sinus rhythm no longer present t Electronically Signed On 08-09-2024 17:33:58 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
[2024-08-08 13:17] LABS: Glucose Point of Care 166 mg/dL (70-110)
[2024-08-08 13:28] LABS: Arterial Blood Gas Hematocrit 36.1 % (37-47); Base Excess ABG 2.6 mmol/L (-2.0-2.0); Blood Gas Allen Test Pos; Blood Gas Operator Identificat MONRO; Blood Gas Sample Site Radial, right; Blood Gas Sample Type Arterial; HCO3 ABG 30.5 mmol/L (22-26); Oxygen Device NC; PO2 ABG 86.9 mmHg (80.0-100.0); PO2 FiO2 Ratio Arterial Blood 241
[2024-08-08 13:29] LABS: Basophils # 0.1 10^3/uL (0.0-0.1); Basophils % 1.1 %; Eosinophils # 0.2 10^3/uL (0.0-0.8); Hematocrit 37.6 % (36-47); Lymphocytes # 2.3 10^3/uL (0.8-4.8); Lymphocytes % 21.1 %; Mean Corpuscular HGB Conc 31.9 g/dL (30-55); Mean Corpuscular Hemoglobin 30.8 pg (27-33); Mean Corpuscular Volume 96.4 fl (85-98); Mean Platelet Volume 8.4 fL (7.4-10.4); Monocytes % 9.1 %; Neutrophils # 7.14 10^3/uL (1.8-7.7); Neutrophils % 65.4 %; Nucleated Red Blood Cells % 0 %; Platelet Count 239 10^3/cmm (157-399); Red Cell Distribution Width 13.7 % (12.1-15.1); White Blood Count 10.93 10^3/uL (3.29-11.43)
[2024-08-08 13:29] LABS: ABG PCO2 62.8 mmHg (35-45)
[2024-08-08 13:44] LABS: Troponin(5th) Baseline 20 ng/L (0-10)
[2024-08-08 13:57] LABS: Alanine Aminotransferase 15 U/L (0-33); Albumin Level 3.2 g/dL (3.5-5.2); Alkaline Phosphatase 113 U/L (35-105); Aspartate Amino Transferase 20 U/L (0-32); Blood Urea Nitrogen 21 mg/dL (8-23); Calcium 8.5 mg/dL (8.5-10.5); Carbon Dioxide 25 mmol/L (22-29); Chloride 99 mmol/L (98-107); Globulin 3.7 g/dL (1.3-4.6); Glucose 157 mg/dL (65-115); Magnesium 1.6 mg/dL (1.7-2.3); NT Pro B Type Natriuretic Pept 7248 pg/mL (0-450); Osmolality Calculated 282 mOsm/kg (285-295); Sodium 133 mmol/L (136-145); Thyroid Stimulating Hormone 3.31 uIU/mL (0.27-4.20); Total Bilirubin 0.2 mg/dL (0.15-1.2); Total Protein 6.9 g/dL (6.6-8.7)
[2024-08-08 13:59] LABS: Alcohol Level < 10 mg/dL (0-10); Creatinine Clr Calc Pharmacy 50.6816
[2024-08-08 14:00] LABS: Anion Gap 15.3 (5-19); Potassium 6.3 mmol/L (3.5-5.1)
[2024-08-08] MEDS: FUROsemide 10 mg/mL SDV 2mL 20 MG IVP (14:31)
[2024-08-08] MEDS: cefTRIAXone 2,000 mg SDV 2000 MG IVP (14:31)
--- NOTE | 2024-08-08 14:47 | PM.HP ---
Providers/Chief Complaint Primary Care Provider: Adrienne March DO Chief Complaint: weakness History of Present Illness Tiffany Gaffney is a 78 year old female with past medical history of seizure disorder, mild aortic stenosis, diabetes mellitus, hyperlipidemia, hypertension, previous stroke, hypothyroidism presented to the hospital for generalized weakness and worsening swelling bilateral lower extremities. She was recently seen at her primary care doctor's office where her Lasix was reduced however she ended up with fluid overload came back to the ER and Lasix was increased. Her legs are weeping at this time with fluid. Patient was recently at [facility] for 7 days for sepsis secondary to UTI as per patient sisters. Patient is currently on BiPAP able to answer questions and follows commands. Is alert oriented x 3. States she would like to be a DNR. Sister is in agreement at this time. Patient's sister states that she has been slightly confused and is much more weaker compared to before. Before going to [facility] she was able to walk but was discharged from [facility] with a walker however now is very weak that she cannot even walk on her own anymore. He denies any chest pain shortness of breath at this time. Sister does state that her oxygen was recently increased to 3 L nasal cannula. Denies any nausea vomiting diarrhea abdominal pain. In ER it is noted on monitor the patient has sinus bradycardia heart rate is between 45-50 range at this time, potassium is 6.3 and repeat is pending. I have asked ER doctor to administer calcium gluconate while we wait for repeat potassium to come back. Medications/Allergies Home Medications Medication Instructions Recorded Confirmed Last Taken Type cetirizine 10 mg tablet (Zyrtec) 10 mg PO DAILY PRN Allergy Symptoms 11/13/19 08/08/24 08/08/24 History desvenlafaxine succinate 50 mg 50 mg PO DAILY 11/13/19 08/08/24 08/08/24 History tablet,extended release 24 hr (Pristiq) esomeprazole magnesium 20 mg 20 mg PO DAILY 11/13/19 08/08/24 08/08/24 History capsule,delayed release (Nexium) fluticasone propionate 50 1 spray intranasal DAILY PRN 11/13/19 08/08/24 Unknown History mcg/actuation nasal allergies spray,suspension gabapentin 300 mg capsule 300 mg PO BID 11/13/19 08/08/24 09/13/21 History oxycodone-acetaminophen 10 mg-325 1 tab PO Q4H PRN Pain 11/13/19 08/08/24 Unknown History mg tablet (Percocet) phenytoin sodium extended 100 mg 300 mg PO BID 11/13/19 08/08/24 08/08/24 History capsule (Dilantin Extended) ergocalciferol (vitamin D2) 1,250 1,250 mcg PO DAILY 09/14/21 08/08/24 08/02/24 History mcg (50,000 unit) capsule (Vitamin D2) potassium chloride 20 mEq 20 meq PO DAILY 09/14/21 08/08/24 08/08/24 History tablet,extended release albuterol sulfate 90 mcg/actuation 2 inh inhalation Q6H PRN shortness 09/17/21 08/08/24 Unknown Rx aerosol inhaler of breath or wheezing #8.5 grams tiotropium bromide 2.5 2 puff inhalation DAILY #4 grams 10/15/21 08/08/24 Unknown Rx mcg/actuation mist for inhalation (Spiriva Respimat) aspirin 81 mg capsule 81 mg PO DAILY #30 caps 08/07/24 08/08/24 08/08/24 Rx atorvastatin 40 mg tablet 40 mg PO DAILY #30 tabs 08/07/24 08/08/24 Unknown Rx clopidogrel 75 mg tablet 75 mg PO DAILY #30 tabs 08/07/24 08/08/24 Unknown Rx apixaban 5 mg tablet (Eliquis) 5 mg PO BID 08/08/24 08/08/24 08/08/24 History bumetanide 2 mg tablet 2 mg PO DAILY 08/08/24 08/08/24 08/08/24 History dulaglutide 1.5 mg/0.5 mL 0.5 mg SUBCUT Q7D 08/08/24 08/08/24 Unknown History subcutaneous pen injector (Trulicity) levothyroxine 125 mcg tablet 125 mcg PO DAILY 08/08/24 08/08/24 08/08/24 History metformin 500 mg tablet 500 mg PO BID 08/08/24 08/08/24 08/08/24 History metoprolol succinate 25 mg 25 mg PO BID 08/08/24 08/08/24 08/08/24 History tablet,extended release 24 hr Allergies Allergy/AdvReac Type Severity Reaction Status Date / Time No Known Allergies Allergy Verified 10/15/21 11:00 PFSH Acute PFSH: Medical History Seizure disorder Mild aortic stenosis Obesity Diabetes 1.5, managed as type 2 Hyperlipidemia HTN (hypertension) Hypothyroidism CVA (cerebral vascular accident) Surgical History Previous back surgery S/P hysterectomy Family History Father Stroke Hypertension Mother Hypertension CAD (coronary artery disease) Myocardial infarction Sister Hypertension CAD (coronary artery disease) Myocardial infarction Brother CAD (coronary artery disease) Myocardial infarction Denies family history of Colon cancer Pancreatic cancer Ovarian cancer Thyroid cancer Diabetes Breast cancer Cancer Uterine cancer Social History Smoking and tobacco/nicotine status: never used tobacco/nicotine Household members: spouse Marital status: Vitals/I&O/Wt Last Vital Signs Temp 97.6 F 08/08/24 11:31 Pulse 49 L 08/08/24 14:31 Resp 20 H 08/08/24 11:31 BP 115/59 08/08/24 14:31 Pulse Ox 95 08/08/24 14:31 O2 Del Method BiPAP 08/08/24 14:31 O2 Flow Rate 3 08/08/24 11:31 FiO2 36 08/08/24 13:44 Weight last 48 hrs Weight 109.316 kg Physical Exam Narrative: General: Alert oriented x3, patient seen laying in bed appearing comfortable at this time on the BiPAP. She is able to answer questions and follow commands. States she would like to be a DNR/DNI. HEENT: Normocephalic, atraumatic, EOMI, Cardio: Sinus bradycardia, normal S1-S2 no gross murmurs appreciated however difficult to auscultate secondary to large body habitus. Respiratory: Mainly clear to auscultation bilaterally no wheezes no rhonchi or crackles auscultated at this time. GI: Abdomen soft, nontender, nondistended, bowel sounds +, obese rounded abdomen Extremities: 3+ edema bilateral lower extremities, skin weeping with fluid at this time, erythema present bilaterally around shins Data 08/08/24 13:17 08/08/24 15:42 A&P Assessment and plan (1) Diastolic heart failure: (2) CHF (congestive heart failure): Qualifiers: Heart failure chronicity: acute on chronic (3) Exertional dyspnea: (4) Obesity: (5) COPD (chronic obstructive pulmonary disease): (6) Community acquired pneumonia: Qualifiers: Laterality: right Lung location: lower lobe of lung Qualified Code(s): J18.9 - Pneumonia, unspecified organism (7) Hypoxia: (8) Hyperkalemia: (9) Bradycardia: (10) Pneumonia: (11) Cellulitis: (12) Diabetes: (13) Chronic anticoagulation: Plan #Generalized weakness #Right lower lobe pneumonia #Hyperkalemia, potassium 6.3 #Sinus bradycardia, no evidence of heart block at this time #Worsening hypoxia, increasing oxygen requirement #Diastolic CHF exacerbation #Seizure disorder #Diabetes mellitus type 2 #Hypothyroidism #Chronic anticoagulation with Eliquis #CKD ? Continue aspirin Eliquis atorvastatin, Plavix ? Hold Trulicity, metformin, metoprolol succinate at this time ? Check phenytoin levels. Will dose reduce to 150 twice daily at this time ? Hold home potassium ? Creatinine 1.1 at baseline. Patient does have a history of CKD ? Check hemoglobin A1c ? Calcium gluconate to be administered at this time by ER doctor. Will wait for repeat potassium levels. If confirmed high we will order dextrose, insulin, Kayexalate, calcium gluconate ? Continue to monitor in telemetry. Check EKG. Monitor for heart block ? Hold metoprolol ? Troponins flat. Delta troponin at 2 hours 1.71. 6-hour troponin pending ? Check echocardiogram ? If bradycardia does not improve may consider dopamine drip. At that point we will consult cardiology continue to monitor for now. May consider glucagon as well. ? Right basilar infiltrate noted on x-ray. Will treat for pneumonia at this time with vanc and zosyn as pt recently at hospital in [place] ? Check procalcitonin ? abx should cover for cellulitis as well. ? Will place on Lasix 40 IV twice daily. -Recheck BMP at 8 PM. -Continue BiPAP at this time. Initial gas noted to be 7.30/60. Patient appears to be retaining CO2. ? As per family patient has not been formally diagnosed with sleep apnea. I will look into this further. ? Continue BiPAP ? Order CPAP for nighttime. ? Solu-Medrol 40 IV twice daily - SSI mod dose DNR/DNI?discussed with patient and family. ? Sisters would like to be added to authorization to discuss PHI. Patient agreeable to this. I have relayed this to ER staff. Attestations Medical Necessity Statement*: Hyperkalemia, generalized weakness, sinus bradycardia, diastolic CHF exacerbation. Patient will require hospitalization for multiple medical problems at this time. Expect stay to be greater than 72 hours. Diagnoses Diastolic heart failure I50.30 CHF (congestive heart failure) I50.9 Heart failure chronicity: acute on chronic Exertional dyspnea R06.00 Obesity E66.9 COPD (chronic obstructive pulmonary disease) J44.9 Community acquired pneumonia J18.9 Laterality: right Lung location: lower lobe of lung Hypoxia R09.02 Hyperkalemia E87.5 Bradycardia R00.1 Pneumonia J18.9 Cellulitis L03.90 Diabetes E11.9 Chronic anticoagulation Z79.01
[2024-08-08 14:58] LABS: Bilirubin Urine Negative (Negative); Blood Urine Negative (Negative); Glucose Urine UA Negative (Normal); Ketones Urine Negative (Negative); Leukocyte Esterase Urine Negative (Negative); Nitrate Urine Negative (Negative); Protein Urine Trace (Negative); Specific Gravity, Urine 1.013 (1.005-1.030); Urine Appearance Clear (CLEAR); Urine Color Yellow (Yellow); Urobilinogen Urine 0.2 mg/dL (Negative)
[2024-08-08 15:02] LABS: Add Urine Microscopic? YES; Bacteria Urine None Seen /hpf; Hyaline Casts Urine 24.38 /lpf; RBC Urine 0-2 /hpf (0-2); Squamous Epithelial Cell Urine 0-5 /hpf (0-5); WBC Urine 0-5 /hpf (0-5)
[2024-08-08 15:05] LABS: Amphetamines Screen Urine Negative (Negative); Barbiturates Screen Urine Positive (Negative); Benzodiazepines Screen Urine Negative (Negative); Cocaine Screen Urine Negative (Negative); Opiate Screen Urine Negative (Negative); PCP Screen Urine Negative (Negative); THC Screen Urine Negative (Negative)
[2024-08-08 15:20] LABS: Add Urine Culture? No; Amorphous Sediment Urine 1+ /hpf; Fine Granular Casts Urine 0-4 /lpf
--- NOTE | 2024-08-08 16:01 | ECG_ITS ---
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 Measurements Intervals [place] Rate: 50 P: 0 [place]: 0 QRS: 233 QRSD: 140 T: -19 QT: 462 QTc: 421 Interpretive Statements ATRIAL FIBRILLATION WITH SLOW VENTRICULAR RESPONSE RIGHT AXIS DEVIATION [QRS AXIS > 100] RIGHT BUNDLE BRANCH BLOCK [120+ ms QRS DURATION, UPRIGHT V1, 40+ ms S IN I/aVL/V4/V5/V6] ANTERIOR MYOCARDIAL INFARCTION , OF INDETERMINATE AGE [40+ ms Q WAVE AND/OR ST/T ABNORMALITY IN V3/V4] MODERATE T-WAVE ABNORMALITY, CONSIDER LATERAL ISCHEMIA [-0.1+ mV T-WAVE IN I/aVL/V5/V6] MODERATE T-WAVE ABNORMALITY, CONSIDER INFERIOR ISCHEMIA [-0.1+ mV T-WAVE IN II/aVF].Compared to ECG 08/08/2024 12:55:43 Sinus bradycardia no longer present.Myocardial infarct finding still present T-wave abnormality still present.Possible ischemia still present Electronically Signed On 08-09-2024 18:06:38 DISPATCHER ELECTRIC POWER by Stanley Miller M.D. [id number]
[2024-08-08 16:24] LABS: Phenytoin Dilantin 21.8 ug/mL (10-20)
[2024-08-08 16:25] LABS: Lactic Sepsis W/Reflex 1.9 mmol/L (0.5-2.2)
[2024-08-08 16:29] LABS: Troponin 5 2HR 21.71 ng/L (0-10); Troponin 5 2HR Delta 1.71 ABS# (0-10)
[2024-08-08 16:38] LABS: Estmated Average Glucose 183
[2024-08-08 16:40] LABS: Procalcitonin 0.08 ng/mL (0-0.5); Thyroid Stimulating Hormone 4.04 uIU/mL (0.27-4.20)
[2024-08-08] MEDS: ipratropium-albuterol 3 mL Neb INHALATION ×2 (16:47→20:59)
[2024-08-08 16:50] LABS: Anion Gap 16.4 (5-19); Blood Urea Nitrogen 22 mg/dL (8-23); Carbon Dioxide 26 mmol/L (22-29); Chloride 97 mmol/L (98-107); Glucose 158 mg/dL (65-115); Osmolality Calculated 283 mOsm/kg (285-295); Potassium 6.4 mmol/L (3.5-5.1); Sodium 133 mmol/L (136-145)
[2024-08-08 16:52] LABS: Creatinine Clr Calc Pharmacy 50.6816
[2024-08-08] MEDS: calcium gluconate 0.1 gm/mL 10% SDV 10mL 1 GM IVP ×2 (17:22→19:13)
--- NOTE | 2024-08-08 18:48 | USCV_ITS ---
Tiffany Gaffney Age: 78 Gender: F : 1945 Exam Date: 08/08/2024 19:30 Ordering Phys: Lorene Oh MD Technologist: SILVIA [place]am [place] [facility] [place] Indication: bradycardia. BP: 121 / 45 HR: 41 Rhythm: Sinus bradycardia Technical Quality: Adequate MEASUREMENTS (Male / Female) Normal Values 2D ECHO LV Diastolic Diameter PLAX 4.8 cm 4.2 - 5.9 / 3.9 - 5.3 cm IVS Diastolic Thickness 1.3 cm 0.6 - 1.0 / 0.6 - 0.9 cm IVS Systolic Thickness 1.5 cm LVPW Diastolic Thickness 1.3 cm 0.6 - 1.0 / 0.6 - 0.9 cm LVPW Systolic Thickness 1.7 cm LVOT Diameter 2.1 cm LV Ejection Fraction 2D Teich 55.9 % LV Ejection Fraction MOD 4C 65.2 % LV Ejection Fraction MOD 2C 60.3 % LV Ejection Fraction 2C AL 61.5 % LA Diameter 4.5 cm Aorta at Sinotubular Diameter 2.3 cm IVC Diameter 1.9 cm M-MODE LA Ao Ratio MM 1.4 AV Cusp Separation MM 1.1 cm DOPPLER AV Peak Velocity 294.0 cm/s LVOT Peak Velocity 60.0 cm/s AV Area Cont Eq vti 0.8 cm squared AV Area Cont Eq pk 0.7 cm squared MV Peak Velocity 126.0 cm/s MV Area PHT 2.4 cm squared Mitral E to A Ratio 1.5 TV Peak Velocity 273.0 cm/s TR Peak Velocity 329.0 cm/s TR Peak Gradient 43.3 mmHg TV Peak E Velocity 59.0 cm/s Right Atrial Pressure 10.0 mmHg Pulmonary Artery Systolic Pressu 53.3 mmHg PV Peak Velocity 66.0 cm/s FINDINGS Left Ventricle Normal LV size ejection fraction of 60%. No gross wall motion abnormalities noted Right Ventricle Mildly dilated right ventricle with the moderate diffuse hypokinesia Right Atrium Mildly dilated right atrium Left Atrium Mildly increased left atrial size. Mitral Valve Thickened mitral valve. Mild to moderate mitral valve regurgitation. Aortic Valve Thickened aortic valve. Mild aortic valve regurgitation. Severe low gradient aortic valve stenosis, mean gradient 15.2 mmHg, DEMETRIO 0.78 cm squared. Tricuspid Valve Mild tricuspid valve regurgitation. Estimated pulmonary artery peak systolic pressure of 53 mmHg Pulmonic Valve Pulmonic valve not well visualized. Pericardium Normal pericardium without effusion. Aorta Normal ascending aorta dimension. IVC Normal inferior vena cava. CONCLUSIONS Normal LV size ejection fraction of 60%. No gross wall motion abnormalities noted. Mildly increased left atrial size. Mildly dilated right ventricle with the moderate diffuse hypokinesia. Mildly dilated right atrium. Thickened mitral valve. Mild to moderate mitral valve regurgitation. Severe low gradient aortic valve stenosis, mean gradient 15.2 mmHg, DEMETRIO 0.78 cm squared. Mild aortic valve regurgitation. Mild tricuspid valve regurgitation. Estimated pulmonary artery peak systolic pressure of 53 mmHg. (Mild pulmonary hypertension) There is no pericardial effusion. There are no intracardiac masses. Compared to the study from 11/11/2020, there is worsening of the aortic valve stenosis Dr Stanley Miller MD FACC (Electronically Signed) Final Date: 10 August 2024 07:08 S
--- NOTE | 2024-08-08 18:52 | ECG_ITS ---
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 Measurements Intervals [place] Rate: 40 P: 0 [place]: 0 QRS: 234 QRSD: 137 T: -49 QT: 493 QTc: 405 Interpretive Statements ATRIAL FIBRILLATION WITH SLOW VENTRICULAR RESPONSE RIGHT AXIS DEVIATION [QRS AXIS > 100] RIGHT BUNDLE BRANCH BLOCK [120+ ms QRS DURATION, UPRIGHT V1, 40+ ms S IN I/aVL/V4/V5/V6] ANTERIOR MYOCARDIAL INFARCTION , OF INDETERMINATE AGE [40+ ms Q WAVE AND/OR ST/T ABNORMALITY IN V3/V4] MODERATE T-WAVE ABNORMALITY, CONSIDER LATERAL ISCHEMIA [-0.1+ mV T-WAVE IN I/aVL/V5/V6] MODERATE T-WAVE ABNORMALITY, CONSIDER INFERIOR ISCHEMIA [-0.1+ mV T-WAVE IN II/aVF].CRITICAL TEST RESULT.Compared to ECG 08/08/2024 16:01:54 No significant changes Electronically Signed On 08-09-2024 18:06:56 INSTRUMENT REPAIR TECHNICIAN by Stanley Miller M.D. [id number]
[2024-08-08] MEDS: insulin regular-human 100 units/1 mL 10 UNIT IVP (19:05)
--- NOTE | 2024-08-08 19:12 | PC.NURSE ---
PER VERBAL ORDER FROM DR. COOK, GIVE CALCIUM GLUCONATE 1 GM IVP ONCE.
[2024-08-08] MEDS: dextrose 10% 250 ML 500 ML IV (19:17)
[2024-08-08 20:39] LABS: Glucose Point of Care 196 mg/dL (70-110)
[2024-08-08 20:49] LABS: Troponin 5 6HR 22.11 ng/L (0-10); Troponin 5 6HR Delta 2.11 ng/L (0-12)
[2024-08-08] MEDS: apixaban 5 mg Tablet PO (21:48)
[2024-08-08 23:24] LABS: Glucose Point of Care 134 mg/dL (70-110)
[2024-08-08] MEDS: FUROsemide 10 mg/mL SDV 4mL 40 MG IVP (23:25)
[2024-08-08] MEDS: methylPREDNISolone sod succ 40 mg/mL INJ IVP (23:29)
--- NOTE | 2024-08-08 23:37 | PC.NURSE ---
Contacted Dr. Cruz in reference to difficult IV access and pending zosyn and vancomycin to give, both of which are late in the MAR. Received orders to give vancomycin first for it's 2 hour infusion time, and then zosyn after as it had 4 hour infusion time.
[2024-08-08] MEDS: vancomycin 2,000 MG/400 ML PIGGYBACK 200 MG IV (23:39)
[2024-08-09] VITALS (85 sets, daily range): BP systolic 83–155; BP diastolic 40–75; PULSE 40–84; RESP 14–27; TEMP 35.7–37; O2SAT 89–100
[2024-08-09] MEDS: phenytoin ER 100 mg Capsule 300 MG PO (00:43)
[2024-08-09] MEDS: piperacillin-tazobactam 3.375 GM in sodium chloride 0.9% (plus) 50 ML IV ×3 (01:43→20:18)
--- NOTE | 2024-08-09 02:23 | PC.NURSE ---
Addendum entered by RISA Joyner 08/09/24 05:27: To elaborate more on delayed medications; Zosyn and Vancomycin were to be given at [address] Cruz contacted in reference to delayed medications and having currently one IV access. Received orders to begin with Vancomycin first as it has a shorter infusion time and folow it with the Zosyn. Dr. Cruz contacted at 0530 in reference to initial dose of Zosyn finishing, and another due at 0500. Dr. Cruz advised to hold the dose for now and contact pharmacy at 0600 when they arrive and ask for their recommendation in this situation. Original Note: Patient arrived to unit aprox. 2026. Left AC IV found to have swelling both above and below insertion site, flushed very easily but had no blood return. Decision made to discontinue and find a new site. Embryology Teacher was able to place an ultrasound guided IV in the upper right arm, however, due to delay of getting an adequate IV site several medications were delayed. Patient also had phenytoin 150mg ordered originally, however, medication came in 100mg capsules and there was no appropriate way to split the tablet. Pharmacy notified, suggesting a 150mg oral suspension. Dr. Cruz contacted at 22:12, orders received for 150mg phenytoin oral suspension twice per day. However this nurse was not able to pull from the [facility] due to it being non-formulary . Contacted Dr. Cruz again, orders received for 300mg phenytoin PO once per day. This nurse also noticed information in H&P referencing to recheck this patient's BMP at 1999, however, no order was found. Dr. Cruz was contacted 0105, who advised to wait until already scheduled BMP at 0400.
[2024-08-09 05:40] LABS: Basophils # 0.1 10^3/uL (0.0-0.1); Basophils % 0.6 %; Eosinophils # 0.1 10^3/uL (0.0-0.8); Eosinophils % 0.9 %; Hematocrit 36.3 % (36-47); Lymphocytes # 1.1 10^3/uL (0.8-4.8); Lymphocytes % 14.7 %; Mean Corpuscular HGB Conc 30.9 g/dL (30-55); Mean Corpuscular Hemoglobin 30.5 pg (27-33); Mean Corpuscular Volume 98.9 fl (85-98); Monocytes # 0.5 10^3/uL (0.2-0.9); Monocytes % 5.8 %; Neutrophils # 6.02 10^3/uL (1.8-7.7); Neutrophils % 77.6 %; Nucleated Red Blood Cells % 0 %; Platelet Count 205 10^3/cmm (157-399); Red Blood Count 3.67 10^6/uL (3.85-5.65); Red Cell Distribution Width 13.5 % (12.1-15.1); White Blood Count 7.76 10^3/uL (3.29-11.43)
[2024-08-09 06:01] LABS: Blood Urea Nitrogen 24 mg/dL (8-23); Calcium 8.1 mg/dL (8.5-10.5); Carbon Dioxide 31 mmol/L (22-29); Chloride 95 mmol/L (98-107); Creatinine Clr Calc Pharmacy 46.6304; Glucose 178 mg/dL (65-115); Magnesium 1.5 mg/dL (1.7-2.3); Osmolality Calculated 288 mOsm/kg (285-295); Sodium 135 mmol/L (136-145)
[2024-08-09] MEDS: levothyroxine 100 mcg Tablet PO (06:07)
[2024-08-09] MEDS: FUROsemide 10 mg/mL SDV 4mL 40 MG IVP ×2 (06:08→17:59)
[2024-08-09 07:50] LABS: Glucose Point of Care 149 mg/dL (70-110)
[2024-08-09] MEDS: ipratropium-albuterol 3 mL Neb INHALATION ×4 (07:51→19:54)
[2024-08-09] MEDS: pantoprazole DR 40 mg Tablet PO (08:12)
[2024-08-09] MEDS: apixaban 5 mg Tablet PO ×2 (08:12→18:00)
[2024-08-09] MEDS: atorvastatin 40 mg Tablet PO (08:12)
[2024-08-09] MEDS: sodium polystyrene sulfonate 15 gm/60 mL Btl PO (08:13)
[2024-08-09] MEDS: insulin regular-human 10 UNIT in SYRINGE 1 EACH 100 UNIT IVP (08:13)
[2024-08-09] MEDS: aspirin 81 mg EC Tablet PO (08:13)
[2024-08-09] MEDS: calcium gluconate 0.9% NaCL 1 GM/50 ML PREMIX IV (08:13)
[2024-08-09] MEDS: clopidogrel 75 mg Tablet PO (08:13)
[2024-08-09] MEDS: methylPREDNISolone sod succ 40 mg/mL INJ IVP ×2 (08:14→20:17)
[2024-08-09] MEDS: dextrose 10% 125 ML 750 ML IV (08:14)
[2024-08-09] MEDS: ergocalciferol (vitamin D2) 50,000 Unit Capsule 50000 UNIT PO (08:31)
[2024-08-09 10:35] LABS: Glucose Point of Care 264 mg/dL (70-110)
--- NOTE | 2024-08-09 11:22 | P.CONIM_ITS ---
Providers/Reason For Consult 2 Consulting Physician/Specialty*: kommana/Nephrology Reason for Consult*: Hyperkalemia , DERIC Attending Physician: Lorene Oh MD Primary Care Provider: Adrienne March DO History of Present Illness History of Present Illness Tiffany Gaffney is a 78 year old female Patient is a 78-year-old female with past medical history of arctic stenosis, diabetes, lipidemia, hypertension prior stroke, hypothyroidism presented to the hospital due to generalized weakness and bilateral lower extremity edema. In the emergency department patient was noted to be in sinus bradycardia potassium of 6.3 on presentation. Patient was taking potassium supplements at home Review of Systems 2 Narrative: negative Medications/Allergies Home Medications Medication Instructions Recorded Confirmed Last Taken Type cetirizine 10 mg tablet (Zyrtec) 10 mg PO DAILY PRN Allergy Symptoms 11/13/19 08/08/24 08/08/24 History desvenlafaxine succinate 50 mg 50 mg PO DAILY 11/13/19 08/08/24 08/08/24 History tablet,extended release 24 hr (Pristiq) esomeprazole magnesium 20 mg 20 mg PO DAILY 11/13/19 08/08/24 08/08/24 History capsule,delayed release (Nexium) fluticasone propionate 50 1 spray intranasal DAILY PRN 11/13/19 08/08/24 Unknown History mcg/actuation nasal allergies spray,suspension gabapentin 300 mg capsule 300 mg PO BID 11/13/19 08/08/24 09/13/21 History oxycodone-acetaminophen 10 mg-325 1 tab PO Q4H PRN Pain 11/13/19 08/08/24 Unknown History mg tablet (Percocet) phenytoin sodium extended 100 mg 300 mg PO BID 11/13/19 08/08/24 08/08/24 History capsule (Dilantin Extended) ergocalciferol (vitamin D2) 1,250 1,250 mcg PO DAILY 09/14/21 08/08/24 08/02/24 History mcg (50,000 unit) capsule (Vitamin D2) potassium chloride 20 mEq 20 meq PO DAILY 09/14/21 08/08/24 08/08/24 History tablet,extended release albuterol sulfate 90 mcg/actuation 2 inh inhalation Q6H PRN shortness 09/17/21 08/08/24 Unknown Rx aerosol inhaler of breath or wheezing #8.5 grams tiotropium bromide 2.5 2 puff inhalation DAILY #4 grams 10/15/21 08/08/24 Unknown Rx mcg/actuation mist for inhalation (Spiriva Respimat) aspirin 81 mg capsule 81 mg PO DAILY #30 caps 08/07/24 08/08/24 08/08/24 Rx atorvastatin 40 mg tablet 40 mg PO DAILY #30 tabs 08/07/24 08/08/24 Unknown Rx clopidogrel 75 mg tablet 75 mg PO DAILY #30 tabs 08/07/24 08/08/24 Unknown Rx apixaban 5 mg tablet (Eliquis) 5 mg PO BID 08/08/24 08/08/24 08/08/24 History bumetanide 2 mg tablet 2 mg PO DAILY 08/08/24 08/08/24 08/08/24 History dulaglutide 1.5 mg/0.5 mL 0.5 mg SUBCUT Q7D 08/08/24 08/08/24 Unknown History subcutaneous pen injector (Trulicity) levothyroxine 125 mcg tablet 125 mcg PO DAILY 08/08/24 08/08/24 08/08/24 History metformin 500 mg tablet 500 mg PO BID 08/08/24 08/08/24 08/08/24 History metoprolol succinate 25 mg 25 mg PO BID 08/08/24 08/08/24 08/08/24 History tablet,extended release 24 hr Allergies Allergy/AdvReac Type Severity Reaction Status Date / Time No Known Allergies Allergy Verified 10/15/21 11:00 Current Medications Generic Name Dose Route Start Last Admin Trade Name Freq PRN Reason Stop Dose Admin Albuterol/Ipratropium 3 ml 08/08/24 16:00 08/09/24 11:13 Ipratropium-Albuterol 3 Ml Neb INHALATION 3 ml QID.RESPIRATORY MARLI Administration Apixaban 5 mg 08/08/24 20:47 08/09/24 08:12 Apixaban 5 Mg Tablet PO 5 mg BID MARLI Administration Aspirin 81 mg 08/09/24 09:00 08/09/24 08:13 Aspirin 81 Mg Ec Tablet PO 81 mg DAILY MARLI Administration Atorvastatin Calcium 40 mg 08/09/24 09:00 08/09/24 08:12 Atorvastatin 40 Mg Tablet PO 40 mg DAILY MARLI Administration Clopidogrel Bisulfate 75 mg 08/09/24 09:00 08/09/24 08:13 Clopidogrel 75 Mg Tablet PO 75 mg DAILY MARLI Administration Ergocalciferol 50,000 unit 08/09/24 09:00 08/09/24 08:31 Ergocalciferol (Vitamin D2) 50,000 Unit Capsule PO 50,000 unit We@0900 MARLI Administration Furosemide 40 mg 08/08/24 19:00 08/09/24 06:08 Furosemide 10 Mg/Ml Sdv 4ml IVP 40 mg Q12H MARLI Administration Dextrose 125 mls @ 750 mls/hr 08/08/24 20:47 08/09/24 08:35 D10w IV Infused PRN PRN Infusion Adult Acute Hypoglycemia Nursing Protocol Protocol Piperacillin Sod/Tazobactam 50 mls @ 12.5 mls/hr 08/08/24 21:00 08/09/24 05:31 Sod 3.375 gm/ Sodium Chloride IV Not Given Q8H MARLI Insulin Human Lispro 0 unit 08/08/24 21:00 08/09/24 07:49 Insulin Lispro 100 Unit/1 Ml SUBCUT Not Given WM&BEDTIME MARLI Protocol Levothyroxine Sodium 100 mcg 08/09/24 07:00 08/09/24 06:07 Levothyroxine 100 Mcg Tablet PO 100 mcg ACBREAKFAST MARLI Administration Methylprednisolone Sodium Succinate 40 mg 08/08/24 21:00 08/09/24 08:14 Methylprednisolone Sod Succ 40 Mg/Ml Inj IVP 40 mg Q12H MARLI Administration Pantoprazole Sodium 40 mg 08/09/24 09:00 08/09/24 08:[address] 40 Mg Tablet PO 40 mg DAILY MARLI Administration Phenytoin 300 mg 08/09/24 00:23 08/09/24 00:43 Phenytoin Er 100 Mg Capsule PO 300 mg Q24H MARLI Administration PFSH Acute 2 PFSH: Medical History Seizure disorder Mild aortic stenosis Obesity Diabetes 1.5, managed as type 2 Hyperlipidemia HTN (hypertension) Hypothyroidism CVA (cerebral vascular accident) Surgical History Previous back surgery S/P hysterectomy Family History Father Stroke Hypertension Mother Hypertension CAD (coronary artery disease) Myocardial infarction Sister Hypertension CAD (coronary artery disease) Myocardial infarction Brother CAD (coronary artery disease) Myocardial infarction Denies family history of Colon cancer Pancreatic cancer Ovarian cancer Thyroid cancer Diabetes Breast cancer Cancer Uterine cancer Social History Smoking and tobacco/nicotine status: never used tobacco/nicotine Household members: spouse Marital status: Vitals/I&O/Wt Last Vital Signs Temp 98.2 F 08/09/24 08:00 Pulse 49 L 08/09/24 11:14 Resp 20 H 08/09/24 11:14 BP 130/75 08/09/24 09:15 Pulse Ox 96 08/09/24 11:14 O2 Del Method BiPAP 08/09/24 11:14 O2 Flow Rate 3 08/09/24 07:51 FiO2 36 08/09/24 11:14 08/08/24 08/09/24 08/09/24 22:59 06:59 14:59 Intake Total 450 / 450 785.1 / 785.1 Output Total 1000 / 1000 1000 / 2000 Balance -1000 / -1000 -550 / -1550 785.1 / 785.1 Weight last 48 hrs Weight 107 kg Weight 110 kg Weight 109.316 kg Physical Exam 2 Narrative: awake , alert HEENT S1S2 RRR per report lungs clear per report no edema Urinary Catheter Management: Siddiqi: Cath Placed During This Visit: yes Urinary Catheter Date of Insertion: 08/08/24 Urinary Catheter Time of Insertion: 20:11 Data 08/09/24 05:22 08/09/24 05:22 Micro: Microbiology 08/09/24 03:27 Legionella Urinary Antigen - Final Urine,Voided 08/08/24 15:35 Blood Culture - Preliminary Blood SPECIMEN COLLECTED 08/08/24 15:42 Blood Culture - Preliminary Blood SPECIMEN COLLECTED A&P Assessment and plan (1) Hyperkalemia: 1. Hyperkalemia : Persistent , likely in the setting of DERIC, taking potassium supplements at home - s/p medical management , - switched to low K diet , repeat BMP pending 2. Chf exacerbation , on Lasix , 3. Acute on CKD, creatinine stable 4.Right lower loobe pneumonia Consult Attestations 2 Medical Necessity Statement: per [facility] team Coding Level of Care Code Acute Code for Chg Fwd Diagnoses Hyperkalemia E87.5
[2024-08-09 11:26] LABS: Anion Gap 12.6 (5-19); Blood Urea Nitrogen 25 mg/dL (8-23); Carbon Dioxide 30 mmol/L (22-29); Chloride 96 mmol/L (98-107); Glucose 276 mg/dL (65-115); Osmolality Calculated 292 mOsm/kg (285-295); Potassium 4.6 mmol/L (3.5-5.1); Sodium 134 mmol/L (136-145)
[2024-08-09] MEDS: insulin lispro 100 unit/1 mL SUBCUT ×3 (11:27→20:17)
--- NOTE | 2024-08-09 12:25 | P.CONIM_ITS ---
<Statement entered by Tariq Cannon M.D - 08/10/24 07:11> Patient was evaluated and cared for in conjunction with an advanced practice practitioner. I personally examined the patient and reviewed the chart and all pertinent data including imaging, telemetry, and laboratory results. I discussed the patient in detail with the advanced practice practitioner. Please see their note for complete H&P, testing result and agreed upon plan of care for the patient. Patient is is sleepy and drowsy. Denies chest pain. Heart rate at time of my evaluation is in 60s to 70s and she is in sinus rhythm now. Hyperkalemia has improved. GENERAL: Patient is drowsy but arousable. Oriented HEART: Regular S1 and 2 LUNGS: Clear to auscultate bilaterally. CENTRAL NERVOUS SYSTEM: Grossly nonfocal. EXTREMITIES: Lower extremities with out edema bilaterally. Assessment and plan Bradycardia Atrial fibrillation Hyperkalemia Patient's bradycardia likely secondary to significant hyperkalemia. EKGs were consistent with atrial fibrillation with slow ventricular rate. With improvement in potassium levels, she has converted back to normal sinus rhythm and heart rates are in the 60s to 70s at this time. No further intervention is required at this time. At time of discharge, can have event monitoring for 30 days with outpatient cardiology follow-up. Providers/Reason For Consult 2 Consulting Physician/Specialty*: Dr. Cannon Reason for Consult*: Bradycardia Requesting Physician: Dr. Oh Attending Physician: Lorene Oh MD Primary Care Provider: Adrienne March DO History of Present Illness History of Present Illness Ms. Gaffney is a very pleasant 78-year-old female who came into the emergency room due to an incident in which she developed slurred speech and was unable to walk. She states she fell. She did hit her head. She stated the episode was brief. No signs or symptoms of unilateral weakness no vision changes reported. She is back to baseline at this time. In the emergency room she was given calcium gluconate and insulin. She was also given Kayexalate. Today they have given her insulin with dextrose bolus for high potassium levels up to 6.4. CT head was done that ruled out any acute infarct or bleeding. Most recent potassium level is down to 6. She has had transient bradycardia in the lower 40s that quickly comes back up. She does have a history of A-fib. She takes Eliquis at home. She states she has been compliant with this. She is able to get up and walk a little bit without symptoms at this time. Her history includes diabetes, CHF, obesity, COPD, hypercholesterolemia, mild aortic stenosis. Review of Systems 2 Narrative: Consitutional: denies fever, chills, body aches, or changes in appetite, denies abnormal weight loss Eyes: Denies changes in vision Card: Denies chest pain, palpitations, irregular heart rhythm, edema, syncope, shortness of breath, orthopnea, leg pain with exertion Resp: Denies shortness of breath, denies hemoptysis, denies cough Musc: Denies extremity pain, denies limited range of motion or recent injury Skin: Denies rash, lesions, or wounds, denies changes to skin color Neuro: Denies nubmness in extremities, h/a, s/s of stroke Vipin: Denies easy bruiding/bleeding Medications/Allergies Home Medications Medication Instructions Recorded Confirmed Last Taken Type cetirizine 10 mg tablet (Zyrtec) 10 mg PO DAILY PRN Allergy Symptoms 11/13/19 08/08/24 08/08/24 History desvenlafaxine succinate 50 mg 50 mg PO DAILY 11/13/19 08/08/24 08/08/24 History tablet,extended release 24 hr (Pristiq) esomeprazole magnesium 20 mg 20 mg PO DAILY 11/13/19 08/08/24 08/08/24 History capsule,delayed release (Nexium) fluticasone propionate 50 1 spray intranasal DAILY PRN 11/13/19 08/08/24 Unknown History mcg/actuation nasal allergies spray,suspension gabapentin 300 mg capsule 300 mg PO BID 11/13/19 08/08/24 09/13/21 History oxycodone-acetaminophen 10 mg-325 1 tab PO Q4H PRN Pain 11/13/19 08/08/24 Unknown History mg tablet (Percocet) phenytoin sodium extended 100 mg 300 mg PO BID 11/13/19 08/08/24 08/08/24 History capsule (Dilantin Extended) ergocalciferol (vitamin D2) 1,250 1,250 mcg PO DAILY 09/14/21 08/08/24 08/02/24 History mcg (50,000 unit) capsule (Vitamin D2) potassium chloride 20 mEq 20 meq PO DAILY 09/14/21 08/08/24 08/08/24 History tablet,extended release albuterol sulfate 90 mcg/actuation 2 inh inhalation Q6H PRN shortness 09/17/21 08/08/24 Unknown Rx aerosol inhaler of breath or wheezing #8.5 grams tiotropium bromide 2.5 2 puff inhalation DAILY #4 grams 10/15/21 08/08/24 Unknown Rx mcg/actuation mist for inhalation (Spiriva Respimat) aspirin 81 mg capsule 81 mg PO DAILY #30 caps 08/07/24 08/08/24 08/08/24 Rx atorvastatin 40 mg tablet 40 mg PO DAILY #30 tabs 08/07/24 08/08/24 Unknown Rx clopidogrel 75 mg tablet 75 mg PO DAILY #30 tabs 08/07/24 08/08/24 Unknown Rx apixaban 5 mg tablet (Eliquis) 5 mg PO BID 08/08/24 08/08/24 08/08/24 History bumetanide 2 mg tablet 2 mg PO DAILY 08/08/24 08/08/24 08/08/24 History dulaglutide 1.5 mg/0.5 mL 0.5 mg SUBCUT Q7D 08/08/24 08/08/24 Unknown History subcutaneous pen injector (Trulicity) levothyroxine 125 mcg tablet 125 mcg PO DAILY 08/08/24 08/08/24 08/08/24 History metformin 500 mg tablet 500 mg PO BID 08/08/24 08/08/24 08/08/24 History metoprolol succinate 25 mg 25 mg PO BID 08/08/24 08/08/24 08/08/24 History tablet,extended release 24 hr Allergies Allergy/AdvReac Type Severity Reaction Status Date / Time No Known Allergies Allergy Verified 10/15/21 11:00 Current Medications Generic Name Dose Route Start Last Admin Trade Name Freq PRN Reason Stop Dose Admin Albuterol/Ipratropium 3 ml 08/08/24 16:00 08/09/24 11:13 Ipratropium-Albuterol 3 Ml Neb INHALATION 3 ml QID.RESPIRATORY MARLI Administration Apixaban 5 mg 08/08/24 20:47 08/09/24 08:12 Apixaban 5 Mg Tablet PO 5 mg BID MARLI Administration Aspirin 81 mg 08/09/24 09:00 08/09/24 08:13 Aspirin 81 Mg Ec Tablet PO 81 mg DAILY MARLI Administration Atorvastatin Calcium 40 mg 08/09/24 09:00 08/09/24 08:12 Atorvastatin 40 Mg Tablet PO 40 mg DAILY MARLI Administration Clopidogrel Bisulfate 75 mg 08/09/24 09:00 08/09/24 08:13 Clopidogrel 75 Mg Tablet PO 75 mg DAILY MARLI Administration Ergocalciferol 50,000 unit 08/09/24 09:00 08/09/24 08:31 Ergocalciferol (Vitamin D2) 50,000 Unit Capsule PO 50,000 unit We@0900 MARLI Administration Furosemide 40 mg 08/08/24 19:00 08/09/24 06:08 Furosemide 10 Mg/Ml Sdv 4ml IVP 40 mg Q12H MARLI Administration Dextrose 125 mls @ 750 mls/hr 08/08/24 20:47 08/09/24 08:35 D10w IV Infused PRN PRN Infusion Adult Acute Hypoglycemia Nursing Protocol Protocol Piperacillin Sod/Tazobactam 50 mls @ 12.5 mls/hr 08/08/24 21:00 08/09/24 05:31 Sod 3.375 gm/ Sodium Chloride IV Not Given Q8H MARLI Insulin Human Lispro 0 unit 08/08/24 21:00 08/09/24 11:27 Insulin Lispro 100 Unit/1 Ml SUBCUT 10 unit WM&BEDTIME MARLI Administration Protocol Levothyroxine Sodium 100 mcg 08/09/24 07:00 08/09/24 06:07 Levothyroxine 100 Mcg Tablet PO 100 mcg ACBREAKFAST MARLI Administration Methylprednisolone Sodium Succinate 40 mg 08/08/24 21:00 08/09/24 08:14 Methylprednisolone Sod Succ 40 Mg/Ml Inj IVP 40 mg Q12H MARLI Administration Pantoprazole Sodium 40 mg 08/09/24 09:00 08/09/24 08:[address] 40 Mg Tablet PO 40 mg DAILY MARLI Administration Phenytoin 300 mg 08/09/24 00:23 08/09/24 00:43 Phenytoin Er 100 Mg Capsule PO 300 mg Q24H MARLI Administration PFSH Acute 2 PFSH: Medical History Seizure disorder Mild aortic stenosis Obesity Diabetes 1.5, managed as type 2 Hyperlipidemia HTN (hypertension) Hypothyroidism CVA (cerebral vascular accident) Surgical History Previous back surgery S/P hysterectomy Family History Father Stroke Hypertension Mother Hypertension CAD (coronary artery disease) Myocardial infarction Sister Hypertension CAD (coronary artery disease) Myocardial infarction Brother CAD (coronary artery disease) Myocardial infarction Denies family history of Colon cancer Pancreatic cancer Ovarian cancer Thyroid cancer Diabetes Breast cancer Cancer Uterine cancer Social History Smoking and tobacco/nicotine status: never used tobacco/nicotine Household members: spouse Marital status: Vitals/I&O/Wt Last Vital Signs Temp 98.2 F 08/09/24 08:00 Pulse 49 L 08/09/24 11:14 Resp 20 H 08/09/24 11:14 BP 130/75 08/09/24 09:15 Pulse Ox 96 08/09/24 11:14 O2 Del Method BiPAP 08/09/24 11:14 O2 Flow Rate 3 08/09/24 07:51 FiO2 36 08/09/24 11:14 08/08/24 08/09/24 08/09/24 22:59 06:59 14:59 Intake Total 450 / 450 785.1 / 785.1 Output Total 1000 / 1000 1000 / 2000 Balance -1000 / -1000 -550 / -1550 785.1 / 785.1 Weight last 48 hrs Weight 235 lb 14.314 oz Weight 242 lb 8.136 oz Weight 241 lb Physical Exam 2 Narrative: General: No apparent distress, healthy appearing, well nourished Muskuloskeletal: Full ROM Lymphatic: no lymphedema noted Respiratory: Normal respiratory effort, bilateral lower lobes crackles, no use of accessory muscles Cardio: No JVD, regular rate, bradycardic, S1 S2 normal, no murmurs, peripheral pulses 2+ throughout Extremities: Full ROM, normal, normal capillary refill, 2+ edema bilateral lower extremities Neuro: Alert and oriented x4, no focal motor deficits Psych: Affect normal, denies suicidal ideation, mental status grossly normal Skin: No rashes or lesions noted, no wounds Urinary Catheter Management: Siddiqi: Cath Placed During This Visit: yes Urinary Catheter Date of Insertion: 08/08/24 Urinary Catheter Time of Insertion: 20:11 Data 08/09/24 05:22 08/09/24 10:34 Micro: Microbiology 08/08/24 14:43 Urine Culture - Preliminary Urine Catheterized 08/09/24 03:27 Legionella Urinary Antigen - Final Urine,Voided 08/08/24 15:35 Blood Culture - Preliminary Blood SPECIMEN COLLECTED 08/08/24 15:42 Blood Culture - Preliminary Blood SPECIMEN COLLECTED Other data: Echo Complete 2020 CONCLUSIONS Normal left ventricular cavity size. Mild left ventricular hypertrophy. Normal left ventricular systolic function. No regional wall motion abnormalities. Grade I/IV diastolic dysfunction (abnormal relaxation filling pattern), normal to mildly elevated filling pressures. Left ventricular ejection fraction is estimated at 65-70 %. Structurally normal trileaflet aortic valve. Mild aortic valve calcification. Mild aortic valve stenosis, mean gradient 11.1 mmHg, DEMETRIO 1 cm squared. There are no prior echocardiogram studies to compare. troponin- 20-21.71-22.11 EKG- Atrial fibrillation with slow ventricular response T wave inversion in the inferior lateral leads which appears to be present in past EKGs. A&P Assessment and plan (1) Bradycardia: Patient electrolyte imbalance should be resolved prior to any interventions. Potassium was coming down to 6. Patient has received 10 units of regular insulin. Also received Kayexalate. Also getting Lasix 40 mg IV every 12 hours. Will continue to monitor at this time and further recommendations will be made after echo which will be done today. Patient asymptomatic at this time. Hold all AV afsaneh blocking agents. She was previously on metoprolol at home. Will see how she responds. (2) Hyperkalemia: Patient has received IV insulin and is getting Lasix as well as received 1 dose of Kayexalate. Labs are getting rechecked later today. Could be contributing to the bradycardia. (3) Chronic anticoagulation: Patient has a history of paroxysmal A-fib. Agree with continuing Eliquis 5 mg twice daily. (4) Diastolic heart failure: Patient has signs consistent with CHF. Lower extremity edema bilaterally with crackles in the lungs. Agree with IV diuresis 40 of Lasix twice daily. Qualifiers: Heart failure chronicity: acute on chronic Qualified Code(s): I50.33 - Acute on chronic diastolic (congestive) heart failure Plan The plan for this very pleasant 78-year-old female is to optimize her electrolytes. Patient is getting labs checked later today. Agree with Lasix twice daily for diuresis. Echo is being done today. Further recommendations after this. Continue to monitor patient closely. She is asymptomatic at this time. EKG consistent with A-fib with slow ventricular response. No acute ST elevation or T wave abnormalities present Thank you, Dr. Oh, for allowing us to take care of this gentleman. Consult Attestations 2 Medical Necessity Statement: Deferred to primary. Coding Level of Care Code Acute Code for Chg Fwd Diagnoses Bradycardia R00.1 Hyperkalemia E87.5 Chronic anticoagulation Z79.01 Acute on chronic diastolic heart failure I50.33 Heart failure chronicity: acute on chronic
--- NOTE | 2024-08-09 12:58 | P.PN_ITS ---
Subjective 2 Subjective: Patient is persistently hyperkalemic, potassium 6.0 this morning. I have ordered third round of insulin dextrose calcium gluconate. She has been bradycardic all night with lowest heart rate 35. Did get albuterol this morning with heart rate bouncing up to 100 but then coming back down to 40-50 range. Subjectively feeling a lot better and is quite perked up and alert as opposed to yesterday. Vitals/I&O/Wt Last Vital Signs Temp 98.2 F 08/09/24 08:00 Pulse 49 L 08/09/24 12:30 Resp 18 08/09/24 12:30 BP 113/59 08/09/24 12:30 Pulse Ox 99 08/09/24 12:30 O2 Del Method BiPAP 08/09/24 11:14 O2 Flow Rate 3 08/09/24 07:51 FiO2 36 08/09/24 11:14 08/08/24 08/09/24 08/09/24 22:59 06:59 14:59 Intake Total 450 / 450 785.1 / 785.1 Output Total 1000 / 1000 1000 / 2000 Balance -1000 / -1000 -550 / -1550 785.1 / 785.1 Weight last 48 hrs Weight 107 kg Weight 110 kg Weight 109.316 kg Physical Exam 2 Narrative: General: Alert oriented x3, no acute distress HEENT: Normocephalic, atraumatic, EOMI, Cardio: Bradycardia, normal S1-S2 no gross murmurs appreciated however difficult to auscultate secondary to large body habitus. Respiratory: Mainly clear to auscultation bilaterally no wheezes no rhonchi or crackles auscultated at this time. GI: Abdomen soft, nontender, nondistended, bowel sounds +, obese rounded abdomen Extremities: 3+ edema bilateral lower extremities, skin weeping with fluid at this time, erythema present bilaterally around shins, not much improvement compared to yesterday. Urinary Catheter Management: Siddiqi: Cath Placed During This Visit: yes Urinary Catheter Date of Insertion: 08/08/24 Urinary Catheter Time of Insertion: 20:11 Data 08/09/24 05:22 08/09/24 10:34 Micro: Microbiology 08/09/24 03:27 Legionella Urinary Antigen - Final Urine,Voided Bacterial Antigens - Final 08/08/24 14:43 Urine Culture - Preliminary Urine Catheterized 08/08/24 15:35 Blood Culture - Preliminary Blood SPECIMEN COLLECTED 08/08/24 15:42 Blood Culture - Preliminary Blood SPECIMEN COLLECTED A&P Assessment and plan (1) Diastolic heart failure: Qualifiers: Heart failure chronicity: acute on chronic Qualified Code(s): I50.33 - Acute on chronic diastolic (congestive) heart failure (2) CHF (congestive heart failure): Qualifiers: Heart failure chronicity: acute on chronic (3) Exertional dyspnea: (4) Obesity: (5) COPD (chronic obstructive pulmonary disease): (6) Community acquired pneumonia: Qualifiers: Laterality: right Lung location: lower lobe of lung Qualified Code(s): J18.9 - Pneumonia, unspecified organism (7) Hypoxia: (8) Hyperkalemia: (9) Bradycardia: (10) Pneumonia: (11) Cellulitis: (12) Diabetes: (13) Chronic anticoagulation: Plan #Generalized weakness #Right lower lobe pneumonia #Hyperkalemia, potassium 6.3 #Sinus bradycardia, no evidence of heart block at this time #Worsening hypoxia, increasing oxygen requirement #Diastolic CHF exacerbation #Seizure disorder #Diabetes mellitus type 2 #Hypothyroidism #Chronic anticoagulation with Eliquis #CKD ? Continue aspirin Eliquis atorvastatin, Plavix ? Hold Trulicity, metformin, metoprolol succinate at this time ? Check phenytoin levels. Will dose reduce to 150 twice daily at this time ? Hold home potassium ? Creatinine 1.1 at baseline. Patient does have a history of CKD ? Check hemoglobin A1c ? Calcium gluconate to be administered at this time by ER doctor. Will wait for repeat potassium levels. If confirmed high we will order dextrose, insulin, Kayexalate, calcium gluconate ? Continue to monitor in telemetry. Check EKG. Monitor for heart block ? Hold metoprolol ? Troponins flat. Delta troponin at 2 hours 1.71. 6-hour troponin pending ? Check echocardiogram ? If bradycardia does not improve may consider dopamine drip. At that point we will consult cardiology continue to monitor for now. May consider glucagon as well. ? Right basilar infiltrate noted on x-ray. Will treat for pneumonia at this time with vanc and zosyn as pt recently at hospital in [place] ? Check procalcitonin ? abx should cover for cellulitis as well. ? Will place on Lasix 40 IV twice daily. -Recheck BMP at 8 PM. -Continue BiPAP at this time. Initial gas noted to be 7.30/60. Patient appears to be retaining CO2. ? As per family patient has not been formally diagnosed with sleep apnea. I will look into this further. ? Continue BiPAP ? Order CPAP for nighttime. ? Solu-Medrol 40 IV twice daily - SSI mod dose DNR/DNI?discussed with patient and family. ? Sisters would like to be added to authorization to discuss PHI. Patient agreeable to this. I have relayed this to ER staff. 08/09/2024 -Continues to bradycardic and hyperkalemic ? Ordered another round of insulin dextrose calcium gluconate and Kayexalate ? Has not had a bowel yet ? Consult nephrology and cardiology. Discussed with cardiology at length. Possibility of tachybradycardia syndrome. Will evaluate if patient needs pacemaker in the long run. ? At this time we will attempt to correct electrolytes. Cardiology aware that patient is hyperkalemic and that could be playing a role in her bradycardia. ? Continue antibiotics to cover for cellulitis and pneumonia ? Echo pending at this time ? Continue Lasix 40 IV twice daily ? Continue BiPAP at nighttime. ? Sliding scale insulin moderate dose intensity. Attestations 2 Medical Necessity Statement*: Hyperkalemia, generalized weakness, sinus bradycardia, diastolic CHF exacerbation. Patient will require hospitalization for multiple medical problems at this time. Expect stay to be greater than 72 hours. Diagnoses Acute on chronic diastolic heart failure I50.33 Heart failure chronicity: acute on chronic CHF (congestive heart failure) I50.9 Heart failure chronicity: acute on chronic Exertional dyspnea R06.00 Obesity E66.9 COPD (chronic obstructive pulmonary disease) J44.9 Community acquired pneumonia J18.9 Laterality: right Lung location: lower lobe of lung Hypoxia R09.02 Hyperkalemia E87.5 Bradycardia R00.1 Pneumonia J18.9 Cellulitis L03.90 Diabetes E11.9 Chronic anticoagulation Z79.01
[2024-08-09 14:56] LABS: Blood Urea Nitrogen 25 mg/dL (8-23); Calcium 8.6 mg/dL (8.5-10.5); Carbon Dioxide 28 mmol/L (22-29); Chloride 95 mmol/L (98-107); Glucose 237 mg/dL (65-115); Osmolality Calculated 290 mOsm/kg (285-295); Sodium 134 mmol/L (136-145)
[2024-08-09 15:10] LABS: Anion Gap 16.1 (5-19); Potassium 5.1 mmol/L (3.5-5.1)
[2024-08-09 17:29] LABS: Glucose Point of Care 159 mg/dL (70-110)
[2024-08-09 19:42] LABS: Glucose Point of Care 275 mg/dL (70-110)
[2024-08-09] MEDS: vancomycin 1,500 MG/300 ML PIGGYBACK 200 MG IV (22:46)
[2024-08-10] VITALS (24 sets, daily range): BP systolic 96–150; BP diastolic 45–87; PULSE 60–91; RESP 14–27; TEMP 36.4–36.8; O2SAT 92–100
[2024-08-10] MEDS: phenytoin ER 100 mg Capsule 300 MG PO (00:19)
[2024-08-10 03:51] LABS: Basophils % 0.4 %; Eosinophils # 0.1 10^3/uL (0.0-0.8); Hematocrit 33.5 % (36-47); Lymphocytes # 1.1 10^3/uL (0.8-4.8); Lymphocytes % 14.7 %; Mean Corpuscular Volume 96.5 fl (85-98); Mean Platelet Volume 8.8 fL (7.4-10.4); Monocytes # 0.5 10^3/uL (0.2-0.9); Neutrophils # 5.45 10^3/uL (1.8-7.7); Neutrophils % 76.6 %; Nucleated Red Blood Cells % 0 %; Platelet Count 204 10^3/cmm (157-399); Red Blood Count 3.47 10^6/uL (3.85-5.65); Red Cell Distribution Width 13.3 % (12.1-15.1); White Blood Count 7.12 10^3/uL (3.29-11.43)
[2024-08-10 04:14] LABS: Anion Gap 14.5 (5-19); Blood Urea Nitrogen 25 mg/dL (8-23); Calcium 8.5 mg/dL (8.5-10.5); Carbon Dioxide 32 mmol/L (22-29); Chloride 98 mmol/L (98-107); Glucose 142 mg/dL (65-115); Magnesium 1.4 mg/dL (1.7-2.3); Osmolality Calculated 297 mOsm/kg (285-295); Potassium 4.5 mmol/L (3.5-5.1); Sodium 140 mmol/L (136-145)
[2024-08-10] MEDS: piperacillin-tazobactam 3.375 GM in sodium chloride 0.9% (plus) 50 ML IV ×2 (05:21→12:11)
[2024-08-10] MEDS: FUROsemide 10 mg/mL SDV 4mL 40 MG IVP ×2 (06:02→08:47)
[2024-08-10] MEDS: levothyroxine 100 mcg Tablet PO (06:02)
[2024-08-10] MEDS: ipratropium-albuterol 3 mL Neb INHALATION ×2 (08:08→11:18)
--- NOTE | 2024-08-10 08:20 | P.PN_ITS ---
Subjective 2 Subjective: no new c/o Medications: Reviewed: Yes Vitals/I&O/Wt Last Vital Signs Temp 97.6 F 08/10/24 05:36 Pulse 81 08/10/24 08:17 Resp 20 H 08/10/24 08:08 BP 114/60 08/10/24 05:00 Pulse Ox 92 08/10/24 08:08 O2 Del Method Nasal Cannula 08/10/24 08:08 O2 Flow Rate 3 08/10/24 08:08 FiO2 36 08/09/24 11:14 08/09/24 08/10/24 08/10/24 22:59 06:59 14:59 Intake Total 50 / 1075.1 350 / 1425.1 Output Total 600 / 600 1450 / 2050 Balance -550 / 475.1 -1100 / -624.9 Weight last 48 hrs Weight 106.277 kg Weight 107 kg Weight 110 kg Weight 109.316 kg Physical Exam 2 Narrative: awake , alert HEENT S1S2 RRR per report lungs clear per report no edema Urinary Catheter Management: Siddiqi: Cath Placed During This Visit: yes Urinary Catheter Date of Insertion: 08/08/24 Urinary Catheter Time of Insertion: 20:11 Data 08/10/24 03:21 08/10/24 03:21 Micro: Microbiology 08/08/24 15:35 Blood Culture - Preliminary Blood NEGATIVE TO DATE 08/08/24 15:42 Blood Culture - Preliminary Blood NEGATIVE TO DATE 08/09/24 03:27 Legionella Urinary Antigen - Final Urine,Voided Bacterial Antigens - Final 08/08/24 14:43 Urine Culture - Preliminary Urine Catheterized A&P Assessment and plan (1) Hyperkalemia: 1. Hyperkalemia : Persistent , likely in the setting of DERIC, taking potassium supplements at home - s/p medical management , - switched to low K diet , K improved 2. Chf exacerbation , on Lasix , 3. Acute on CKD, creatinine stable 4.Right lower lobe pneumonia Patient evaluated using audiovisual cart. Time spent 40 minutes. Attestations 2 Medical Necessity Statement*: per mediicne team Coding Level of Care Code Acute Code for Chg Fwd Diagnoses Hyperkalemia E87.5
[2024-08-10 08:31] LABS: Glucose Point of Care 153 mg/dL (70-110)
[2024-08-10] MEDS: apixaban 5 mg Tablet PO (08:45)
[2024-08-10] MEDS: atorvastatin 40 mg Tablet PO (08:45)
[2024-08-10] MEDS: insulin lispro 100 unit/1 mL SUBCUT ×2 (08:45→12:11)
[2024-08-10] MEDS: pantoprazole DR 40 mg Tablet PO (08:45)
[2024-08-10] MEDS: aspirin 81 mg EC Tablet PO (08:46)
[2024-08-10] MEDS: clopidogrel 75 mg Tablet PO (08:46)
[2024-08-10] MEDS: methylPREDNISolone sod succ 40 mg/mL INJ IVP (08:46)
--- NOTE | 2024-08-10 10:16 | P.PN_ITS ---
<Statement entered by Tariq Cannon M.D - 08/11/24 07:49> Patient was evaluated and cared for in conjunction with an advanced practice practitioner.? I personally examined the patient and reviewed the chart and all pertinent data including imaging, telemetry, and laboratory results.? I discussed the patient in detail with the advanced practice practitioner.? Please see? their note for complete note, testing results and agreed upon plan of care for the patient. I agree with assessment and plan Patient feeling much better. In normal sinus rhythm GENERAL: Patient is alert, awake and oriented x3. HEART: Regular S1 and S2. Grade 2/6 systolic murmur LUNGS: Clear to auscultate bilaterally. CENTRAL NERVOUS SYSTEM: Grossly nonfocal. EXTREMITIES: Lower extremities with out edema bilaterally. Assessment and Plan Bradycardia Atrial fibrillation Aortic stenosis Heart rate is normal and patient in sinus rhythm with resolution of hyperkalemia. Replace Mg. Hold all rate controlling agents. Order event monitor. For further workup of possible low gradient severe aortic stenosis, close cardiology follow up. Patient is stable to be discharged from cardiology standpoint. Documented by User: Whit Maria NP 08/10/24 10:28 Subjective 2 Subjective: Patient doing well today no complaints. She states she feels better than ever . She states she feels back to her baseline. Overall she looks like she is improved. Magnesium is low at 1.4. Her heart rate throughout the night and this morning has remained regular rate. No bradycardia noted. Medications: Reviewed: Yes Vitals/I&O/Wt Last Vital Signs Temp 97.6 F 08/10/24 05:36 Pulse 81 08/10/24 08:17 Resp 20 H 08/10/24 08:08 BP 114/60 08/10/24 05:00 Pulse Ox 92 08/10/24 08:08 O2 Del Method Nasal Cannula 08/10/24 08:08 O2 Flow Rate 3 08/10/24 08:08 FiO2 36 08/09/24 11:14 08/09/24 08/10/24 08/10/24 22:59 06:59 14:59 Intake Total 50 / 1075.1 350 / 1425.1 50 / 50 Output Total 600 / 600 1450 / 2050 Balance -550 / 475.1 -1100 / -624.9 50 / 50 Weight last 48 hrs Weight 234 lb 4.8 oz Weight 235 lb 14.314 oz Weight 242 lb 8.136 oz Weight 241 lb Physical Exam 2 Narrative: General: No apparent distress, healthy appearing, well nourished Muskuloskeletal: Full ROM Lymphatic: Hemosiderin staining bilaterally Respiratory: Normal respiratory effort, bilateral lower lobes crackles, no use of accessory muscles Cardio: No JVD, regular rate, bradycardic, S1 S2 normal, no murmurs, peripheral pulses 2+ throughout Extremities: Full ROM, normal, normal capillary refill, 1+ edema bilateral lower extremities Neuro: Alert and oriented x4, no focal motor deficits Psych: Affect normal, denies suicidal ideation, mental status grossly normal Skin: Hemosiderin staining bilateral Urinary Catheter Management: Siddiqi: Cath Placed During This Visit: yes Urinary Catheter Date of Insertion: 08/08/24 Urinary Catheter Time of Insertion: 20:11 Data 08/10/24 03:21 08/10/24 03:21 Micro: Microbiology 08/08/24 14:43 Urine Culture - Preliminary Urine Catheterized Strep species, gamma-hemolytic 08/08/24 15:35 Blood Culture - Preliminary Blood NEGATIVE TO DATE 08/08/24 15:42 Blood Culture - Preliminary Blood NEGATIVE TO DATE 08/09/24 03:27 Legionella Urinary Antigen - Final Urine,Voided Bacterial Antigens - Final Other data: Echo Complete CONCLUSIONS Normal LV size ejection fraction of 60%. No gross wall motion abnormalities noted. Mildly increased left atrial size. Mildly dilated right ventricle with the moderate diffuse hypokinesia. Mildly dilated right atrium. Thickened mitral valve. Mild to moderate mitral valve regurgitation. Severe low gradient aortic valve stenosis, mean gradient 15.2 mmHg, DEMETRIO 0.78 cm squared. Mild aortic valve regurgitation. Mild tricuspid valve regurgitation. Estimated pulmonary artery peak systolic pressure of 53 mmHg. (Mild pulmonary hypertension) There is no pericardial effusion. There are no intracardiac masses. Compared to the study from 11/11/2020, there is worsening of the aortic valve stenosis A&P Assessment and plan (1) Bradycardia: Patient electrolyte imbalance improved. Potassium was coming down to 4.5. Bradycardia has improved. Mag is still low at 1.4. This will need to be replaced. Overall, fine crackles but sounds improved from yesterday. Agree with titrating down lasix to once daily. Patient asymptomatic at this time. Continue to hold all AV afsaneh blocking agents. She will need an event monitor when she goes home. At that time, we may need to do more workup reguarding her aortic stenosis. (2) Hyperkalemia: Resolved. Bradycardia improved. Plan Patient's bradycardia has improved after potassium has normalized. She is asymptomatic at this time. Magnesium is still low. This will need to be replaced. Echo showed worsening aortic stenosis. This may need to be evaluated further in an outpatient setting since patient has improved. She will need an event monitor on discharge. Attestations 2 Medical Necessity Statement*: Deferred to primary. Coding Level of Care Code Acute Code for Chg Fwd Diagnoses Bradycardia R00.1 Hyperkalemia E87.5 Documented by User: Tariq Cannon M.D 08/11/24 07:46 Physical Exam 2 Urinary Catheter Management: Siddiqi: Cath Placed During This Visit: yes Data 08/10/24 03:21 08/10/24 03:21 A&P Assessment and plan (1) Bradycardia: (2) Hyperkalemia: Coding Level of Care Code Acute Code for Chg Fwd Diagnoses Bradycardia R00.1 Hyperkalemia E87.5
[2024-08-10 12:05] LABS: Glucose Point of Care 173 mg/dL (70-110)
[2024-08-10] MEDS: magnesium sulfate premix 1 GM/100 ML PIGGYBACK IV (12:10)
--- NOTE | 2024-08-10 12:39 | P.PN_ITS ---
Subjective 2 Subjective: Seen her at bedside this morning, feels better and wants to get discharge. Heart rate remained stable overnight, currently sinus rhythm at 77 bpm. No bradycardia noted Medications: Reviewed: Yes Vitals/I&O/Wt Last Vital Signs Temp 98 F 08/10/24 08:00 Pulse 67 08/10/24 11:24 Resp 17 08/10/24 11:15 BP 138/67 08/10/24 11:00 Pulse Ox 92 08/10/24 11:15 O2 Del Method Nasal Cannula 08/10/24 11:15 O2 Flow Rate 3 08/10/24 11:15 FiO2 36 08/09/24 11:14 08/09/24 08/10/24 08/10/24 22:59 06:59 14:59 Intake Total 50 / 1075.1 350 / 1425.1 400 / 400 Output Total 600 / 600 1450 / 2050 800 / 800 Balance -550 / 475.1 -1100 / -624.9 -400 / -400 Weight last 48 hrs Weight 106.277 kg Weight 107 kg Weight 110 kg Physical Exam 2 Narrative: General: Alert oriented x3, no acute distress HEENT: Normocephalic, atraumatic, EOMI, Cardio: Bradycardia, normal S1-S2 no gross murmurs appreciated however difficult to auscultate secondary to large body habitus. Respiratory: Mainly clear to auscultation bilaterally no wheezes no rhonchi or crackles auscultated at this time. GI: Abdomen soft, nontender, nondistended, bowel sounds +, obese rounded abdomen Extremities: 3+ edema bilateral lower extremities, skin weeping with fluid at this time, erythema present bilaterally around shins Urinary Catheter Management: Siddiqi: Cath Placed During This Visit: yes Urinary Catheter Date of Insertion: 08/08/24 Urinary Catheter Time of Insertion: 20:11 Data 08/10/24 03:21 08/10/24 03:21 Micro: Microbiology 08/08/24 14:43 Urine Culture - Preliminary Urine Catheterized Strep species, gamma-hemolytic 08/08/24 15:35 Blood Culture - Preliminary Blood NEGATIVE TO DATE 08/08/24 15:42 Blood Culture - Preliminary Blood NEGATIVE TO DATE 08/09/24 03:27 Legionella Urinary Antigen - Final Urine,Voided Bacterial Antigens - Final A&P Assessment and plan (1) Diastolic heart failure: Qualifiers: Heart failure chronicity: acute on chronic Qualified Code(s): I50.33 - Acute on chronic diastolic (congestive) heart failure (2) CHF (congestive heart failure): Qualifiers: Heart failure chronicity: acute on chronic (3) Exertional dyspnea: (4) Obesity: (5) COPD (chronic obstructive pulmonary disease): (6) Community acquired pneumonia: Qualifiers: Laterality: right Lung location: lower lobe of lung Qualified Code(s): J18.9 - Pneumonia, unspecified organism (7) Hypoxia: (8) Hyperkalemia: (9) Bradycardia: (10) Pneumonia: (11) Cellulitis: (12) Diabetes: (13) Chronic anticoagulation: Plan #Generalized weakness #Right lower lobe pneumonia #Hyperkalemia, potassium 6.3 #Sinus bradycardia, no evidence of heart block at this time #Worsening hypoxia, increasing oxygen requirement #Diastolic CHF exacerbation #Seizure disorder #Diabetes mellitus type 2 #Hypothyroidism #Chronic anticoagulation with Eliquis #CKD ? Continue aspirin Eliquis atorvastatin, Plavix ? Hold Trulicity, metformin, metoprolol succinate at this time ? Check phenytoin levels. Will dose reduce to 150 twice daily at this time ? Hold home potassium ? Creatinine 1.1 at baseline. Patient does have a history of CKD ? Check hemoglobin A1c ? Calcium gluconate to be administered at this time by ER doctor. Will wait for repeat potassium levels. If confirmed high we will order dextrose, insulin, Kayexalate, calcium gluconate ? Continue to monitor in telemetry. Check EKG. Monitor for heart block ? Hold metoprolol ? Troponins flat. Delta troponin at 2 hours 1.71. 6-hour troponin pending ? Check echocardiogram ? If bradycardia does not improve may consider dopamine drip. At that point we will consult cardiology continue to monitor for now. May consider glucagon as well. ? Right basilar infiltrate noted on x-ray. Will treat for pneumonia at this time with vanc and zosyn as pt recently at hospital in [place] ? Check procalcitonin ? abx should cover for cellulitis as well. ? Will place on Lasix 40 IV twice daily. -Recheck BMP at 8 PM. -Continue BiPAP at this time. Initial gas noted to be 7.30/60. Patient appears to be retaining CO2. ? As per family patient has not been formally diagnosed with sleep apnea. I will look into this further. ? Continue BiPAP ? Order CPAP for nighttime. ? Solu-Medrol 40 IV twice daily - SSI mod dose DNR/DNI?discussed with patient and family. ? Sisters would like to be added to authorization to discuss PHI. Patient agreeable to this. I have relayed this to ER staff. 08/09/2024 -Continues to bradycardic and hyperkalemic ? Ordered another round of insulin dextrose calcium gluconate and Kayexalate ? Has not had a bowel yet ? Consult nephrology and cardiology. Discussed with cardiology at length. Possibility of tachybradycardia syndrome. Will evaluate if patient needs pacemaker in the long run. ? At this time we will attempt to correct electrolytes. Cardiology aware that patient is hyperkalemic and that could be playing a role in her bradycardia. ? Continue antibiotics to cover for cellulitis and pneumonia ? Echo pending at this time ? Continue Lasix 40 IV twice daily ? Continue BiPAP at nighttime. ? Sliding scale insulin moderate dose intensity. 08/10/24 Hyperkalemia improved to 4.5 No bradycardia noted overnight, has been sinus rhythm at 77 bpm. Nephrology and cardiology input appreciated. Urine culture and blood culture negative so far 2D echo showed Normal LV size ejection fraction of 60%. No gross wall motion abnormalities noted. Mildly increased left atrial size. Mildly dilated right ventricle with the moderate diffuse hypokinesia. Mildly dilated right atrium. Thickened mitral valve. Mild to moderate mitral valve regurgitation. Severe low gradient aortic valve stenosis, mean gradient 15.2 mmHg, DEMETRIO 0.78 cm squared. Mild aortic valve regurgitation. Mild tricuspid valve regurgitation. Estimated pulmonary artery peak systolic pressure of 53 mmHg. (Mild pulmonary hypertension) There is no pericardial effusion. There are no intracardiac masses. Compared to the study from 11/11/2020, there is worsening of the aortic valve stenosis Continue aspirin, Plavix, Lipitor, Eliquis Continue vancomycin and Zosyn for now IV methylprednisolone changed to 40 mg daily and IV Lasix changed to 40 mg daily Continue to monitor in ICU Possible discharge in a.m. need event monitor on discharge. Attestations 2 Medical Necessity Statement*: Anticipating discharge in 24 to 48 hours Time Spent in Patient Care: 25 minutes Coding Level of Care Code Acute Code for Chg Fwd Diagnoses Acute on chronic diastolic heart failure I50.33 Heart failure chronicity: acute on chronic CHF (congestive heart failure) I50.9 Heart failure chronicity: acute on chronic Exertional dyspnea R06.00 Obesity E66.9 COPD (chronic obstructive pulmonary disease) J44.9 Community acquired pneumonia J18.9 Laterality: right Lung location: lower lobe of lung Hypoxia R09.02 Hyperkalemia E87.5 Bradycardia R00.1 Pneumonia J18.9 Cellulitis L03.90 Diabetes E11.9 Chronic anticoagulation Z79.01 Time Spent (min) 25
--- NOTE | 2024-08-10 12:42 | PHA.VACGOAL ---
Vancomycin Goal - Goal Vancomycin Goal:: 15-20 mg/L Vancomycin Indication:: Other - Therapy Day of therpy:: Day []of [] . Actual body weight (kg): 234 lb 4.8 oz - Data Labs: WBC 7.12 10^3/uL (3.29-11.43) 08/10/24 03:21 RBC 3.47 10^6/uL (3.85-5.65) L 08/10/24 03:21 Hgb 10.40 g/dL (11.27-16.99) L 08/10/24 03:21 Hct 33.5 % (36-47) L 08/10/24 03:21 MCV 96.5 fl (85-98) 08/10/24 03:21 MCH 30.0 pg (27-33) 08/10/24 03:21 MCHC 31.0 g/dL (30-55) 08/10/24 03:21 RDW 13.3 % (12.1-15.1) 08/10/24 03:21 Sodium 140 mmol/L (136-145) 08/10/24 03:21 Potassium 4.5 mmol/L (3.5-5.1) 08/10/24 03:21 Chloride 98 mmol/L (98-107) 08/10/24 03:21 Carbon Dioxide 32 mmol/L (22-29) H 08/10/24 03:21 Anion Gap 14.5 (5-19) 08/10/24 03:21 BUN 25 mg/dL (8-23) H 08/10/24 03:21 Creatinine 1.3 mg/dL (0.5-0.9) H 08/10/24 03:21 GFR Calculation Not Reportable 08/10/24 03:21 Treatment plan:: new consult Regimen:: 750 Q12 H PER PROTOCOL TROUGH 08/11 @ 1500
--- NOTE | 2024-08-10 14:45 | P.DS_ITS ---
Discharge Providers Date of Admission: 08/08/24 15:12 Date of Discharge: August 10, 2024 Attending Provider at Admission: Lorene Oh MD Attending Provider at Discharge: Deysi Sotelo MD Primary Care Provider: Adrienne March DO Diagnoses at Discharge Discharge Diagnosis (1) Diastolic heart failure: Status: Acute Qualifiers: Heart failure chronicity: acute on chronic Qualified Code(s): I50.33 - Acute on chronic diastolic (congestive) heart failure (2) CHF (congestive heart failure): Status: Acute Qualifiers: Heart failure chronicity: acute on chronic (3) Exertional dyspnea: Status: Acute (4) Obesity: Status: Acute (5) COPD (chronic obstructive pulmonary disease): Status: Acute (6) Community acquired pneumonia: Status: Acute Qualifiers: Laterality: right Lung location: lower lobe of lung Qualified Code(s): J18.9 - Pneumonia, unspecified organism (7) Hypoxia: Status: Acute (8) Hyperkalemia: Status: Acute (9) Bradycardia: Status: Acute (10) Pneumonia: Status: Acute (11) Cellulitis: Status: Acute (12) Diabetes: Status: Acute (13) Chronic anticoagulation: Status: Acute Reason for Visit Reason for Visit: weakness Brief History: Tiffany Gaffney is a 78 year old female with past medical history of seizure disorder, mild aortic stenosis, diabetes mellitus, hyperlipidemia, hypertension, previous stroke, hypothyroidism presented to the hospital for generalized weakness and worsening swelling bilateral lower extremities. She was recently seen at her primary care doctor's office where her Lasix was reduced however she ended up with fluid overload came back to the ER and Lasix was increased. Her legs are weeping at this time with fluid. Patient was recently at [facility] for 7 days for sepsis secondary to UTI as per patient sisters. Patient is currently on BiPAP able to answer questions and follows commands. Is alert oriented x 3. States she would like to be a DNR. Sister is in agreement at this time. Patient's sister states that she has been slightly confused and is much more weaker compared to before. Before going to [facility] she was able to walk but was discharged from [facility] with a walker however now is very weak that she cannot even walk on her own anymore. He denies any chest pain shortness of breath at this time. Sister does state that her oxygen was recently increased to 3 L nasal cannula. Denies any nausea vomiting diarrhea abdominal pain. In ER it is noted on monitor the patient has sinus bradycardia heart rate is between 45-50 range at this time, potassium is 6.3 and repeat is pending. I have asked ER doctor to administer calcium gluconate while we wait for repeat potassium to come back. Hospital Course Hospital Course #Generalized weakness #Right lower lobe pneumonia #Hyperkalemia, potassium 6.3 #Sinus bradycardia, no evidence of heart block at this time #Worsening hypoxia, increasing oxygen requirement #Diastolic CHF exacerbation #Seizure disorder #Diabetes mellitus type 2 #Hypothyroidism #Chronic anticoagulation with Eliquis #CKD ? Continue aspirin Eliquis atorvastatin, Plavix ? Hold Trulicity, metformin, metoprolol succinate at this time ? Check phenytoin levels. Will dose reduce to 150 twice daily at this time ? Hold home potassium ? Creatinine 1.1 at baseline. Patient does have a history of CKD ? Check hemoglobin A1c ? Calcium gluconate to be administered at this time by ER doctor. Will wait for repeat potassium levels. If confirmed high we will order dextrose, insulin, Kayexalate, calcium gluconate ? Continue to monitor in telemetry. Check EKG. Monitor for heart block ? Hold metoprolol ? Troponins flat. Delta troponin at 2 hours 1.71. 6-hour troponin pending ? Check echocardiogram ? If bradycardia does not improve may consider dopamine drip. At that point we will consult cardiology continue to monitor for now. May consider glucagon as well. ? Right basilar infiltrate noted on x-ray. Will treat for pneumonia at this time with vanc and zosyn as pt recently at hospital in [place] ? Check procalcitonin ? abx should cover for cellulitis as well. ? Will place on Lasix 40 IV twice daily. -Recheck BMP at 8 PM. -Continue BiPAP at this time. Initial gas noted to be 7.30/60. Patient appears to be retaining CO2. ? As per family patient has not been formally diagnosed with sleep apnea. I will look into this further. ? Continue BiPAP ? Order CPAP for nighttime. ? Solu-Medrol 40 IV twice daily - SSI mod dose DNR/DNI?discussed with patient and family. ? Sisters would like to be added to authorization to discuss PHI. Patient agreeable to this. I have relayed this to ER staff. 08/09/2024 -Continues to bradycardic and hyperkalemic ? Ordered another round of insulin dextrose calcium gluconate and Kayexalate ? Has not had a bowel yet ? Consult nephrology and cardiology. Discussed with cardiology at length. Possibility of tachybradycardia syndrome. Will evaluate if patient needs pacemaker in the long run. ? At this time we will attempt to correct electrolytes. Cardiology aware that patient is hyperkalemic and that could be playing a role in her bradycardia. ? Continue antibiotics to cover for cellulitis and pneumonia ? Echo pending at this time ? Continue Lasix 40 IV twice daily ? Continue BiPAP at nighttime. ? Sliding scale insulin moderate dose intensity. 08/10/24 Hyperkalemia improved to 4.5 No bradycardia noted overnight, has been sinus rhythm at 77 bpm. Nephrology and cardiology input appreciated. Urine culture and blood culture negative so far 2D echo showed Normal LV size ejection fraction of 60%. No gross wall motion abnormalities noted. Mildly increased left atrial size. Mildly dilated right ventricle with the moderate diffuse hypokinesia. Mildly dilated right atrium. Thickened mitral valve. Mild to moderate mitral valve regurgitation. Severe low gradient aortic valve stenosis, mean gradient 15.2 mmHg, DEMETRIO 0.78 cm squared. Mild aortic valve regurgitation. Mild tricuspid valve regurgitation. Estimated pulmonary artery peak systolic pressure of 53 mmHg. (Mild pulmonary hypertension) There is no pericardial effusion. There are no intracardiac masses. Compared to the study from 11/11/2020, there is worsening of the aortic valve stenosis Continue aspirin, Plavix, Lipitor, Eliquis Continue vancomycin and Zosyn for now IV methylprednisolone changed to 40 mg daily and IV Lasix changed to 40 mg daily Patient was cleared for discharge by cardiology and would need event monitor on discharge. Will do prednisone taper and p.o. Lasix 40 mg daily Physical Exam Narrative: General: Alert oriented x3, no acute distress HEENT: Normocephalic, atraumatic, EOMI, Cardio: Bradycardia, normal S1-S2 no gross murmurs appreciated however difficult to auscultate secondary to large body habitus. Respiratory: Mainly clear to auscultation bilaterally no wheezes no rhonchi or crackles auscultated at this time. GI: Abdomen soft, nontender, nondistended, bowel sounds +, obese rounded abdomen Extremities: 3+ edema bilateral lower extremities, skin weeping with fluid at this time, erythema present bilaterally around shins Urinary Catheter Management: Siddiqi: Cath Placed During This Visit: yes Urinary Catheter Date of Insertion: 08/08/24 Urinary Catheter Time of Insertion: 20:11 Discharge Data Studies Completed and Pending Completed Studies During Hospitalization Category Date Time Status XR chest 1V portable [id number] Stat Exams 08/08/24 12:46 Completed CV. echo complete* [id number] Routine Ultrasound 08/08/24 18:48 Completed Pending at discharge Category Date Time Status MCT/Event Monitor 30 Days Routine Exams 08/10/24 14:14 Ordered BMP [Basic Metabolic Panel] AM LABS Lab 08/11/24 04:00 Ordered Blood Culture Stat Lab 08/08/24 15:35 Results CBC Auto Diff [Complete Blood Count w/Auto] AM LABS Lab 08/11/24 04:00 Ordered Magnesium AM LABS Lab 08/11/24 04:00 Ordered Sputum Culture and Gram Stain Stat Lab 08/08/24 14:49 Uncollected Urine Culture Stat Lab 08/08/24 14:43 Results Vancomycin Trough Timed Lab 08/11/24 15:00 Ordered Radiology Impressions Chest X-Ray 08/08/24 12:46 IMPRESSION: 1. RIGHT basilar atelectasis and/or infiltrate. Small RIGHT basal pleural effusion. 2. Cardiac enlargement. Small LEFT pleural effusion. Overall, no change since the last exam. Laboratory Results WBC 7.12 10^3/uL (3.29-11.43) 08/10/24 03:21 RBC 3.47 10^6/uL (3.85-5.65) L 08/10/24 03:21 Hgb 10.40 g/dL (11.27-16.99) L 08/10/24 03:21 Hct 33.5 % (36-47) L 08/10/24 03:21 MCV 96.5 fl (85-98) 08/10/24 03:21 MCH 30.0 pg (27-33) 08/10/24 03:21 MCHC 31.0 g/dL (30-55) 08/10/24 03:21 RDW 13.3 % (12.1-15.1) 08/10/24 03:21 Plt Count 204 10^3/cmm (157-399) 08/10/24 03:21 MPV 8.8 fL (7.4-10.4) 08/10/24 03:21 Neut % (Auto) 76.6 % 08/10/24 03:21 Lymph % (Auto) 14.7 % 08/10/24 03:21 Bennett % (Auto) 7.0 % 08/10/24 03:21 Eos % (Auto) 1.0 % 08/10/24 03:21 Baso % (Auto) 0.4 % 08/10/24 03:21 Neut # (Auto) 5.45 10^3/uL (1.8-7.7) 08/10/24 03:21 Lymph # (Auto) 1.1 10^3/uL (0.8-4.8) 08/10/24 03:21 Bennett # (Auto) 0.5 10^3/uL (0.2-0.9) 08/10/24 03:21 Eos # (Auto) 0.1 10^3/uL (0.0-0.8) 08/10/24 03:21 Baso # (Auto) 0.0 10^3/uL (0.0-0.1) 08/10/24 03:21 Nucleated RBC % (auto) 0 % 08/10/24 03:21 Nucleated RBCs # 0.0 /100WBC 08/10/24 03:21 Specimen Type Arterial 08/08/24 13:14 Sample Site Radial, right 08/08/24 13:14 ABG pH 7.30 (7.35-7.45) L 08/08/24 13:14 ABG pCO2 62.8 mmHg (35-45) H* 08/08/24 13:14 ABG pO2 86.9 mmHg (80.0-100.0) 08/08/24 13:14 ABG PO2/FiO2 Ratio 241 08/08/24 13:14 ABG HCO3 30.5 mmol/L (22-26) H 08/08/24 13:14 ABG Base Excess 2.6 mmol/L (-2.0-2.0) H 08/08/24 13:14 Eliazar Test Pos 08/08/24 13:14 Hematocrit 36.1 % (37-47) L 08/08/24 13:14 O2 Delivery Device Nc 08/08/24 13:14 O2 Liters/Min 4.0 % 08/08/24 13:14 FiO2 36.0 % 08/08/24 13:14 Telecommunications Repairer ID Varsha 08/08/24 13:14 Sodium 140 mmol/L (136-145) 08/10/24 03:21 Potassium 4.5 mmol/L (3.5-5.1) 08/10/24 03:21 Chloride 98 mmol/L (98-107) 08/10/24 03:21 Carbon Dioxide 32 mmol/L (22-29) H 08/10/24 03:21 Anion Gap 14.5 (5-19) 08/10/24 03:21 BUN 25 mg/dL (8-23) H 08/10/24 03:21 Creatinine 1.3 mg/dL (0.5-0.9) H 08/10/24 03:21 GFR Calculation Not Reportable 08/10/24 03:21 Glucose 142 mg/dL (65-115) H 08/10/24 03:21 POC Glucose 173 mg/dL (70-110) H 08/10/24 11:53 Estimat Average Glucose 183 08/08/24 15:42 Hemoglobin A1c 8.0 % (4.0-6.0) H 08/08/24 15:42 Calculated Osmolality 297 mOsm/kg (285-295) H 08/10/24 03:21 Lactic Acid 1.9 mmol/L (0.5-2.2) 08/08/24 15:42 Calcium 8.5 mg/dL (8.5-10.5) 08/10/24 03:21 Magnesium 1.4 mg/dL (1.7-2.3) L 08/10/24 03:21 Total Bilirubin 0.2 mg/dL (0.15-1.2) 08/08/24 13:17 AST 20 U/L (0-32) 08/08/24 13:17 ALT 15 U/L (0-33) 08/08/24 13:17 Alkaline Phosphatase 113 U/L (35-105) H 08/08/24 13:17 Troponin T Baseline 20 ng/L (0-10) H 08/08/24 13:17 Troponin T 120 Minute 21.71 ng/L (0-10) H 08/08/24 15:42 Delta Troponin T 1.71 ABS# (0-10) 08/08/24 15:42 Troponin T Hi Sens 6Hr 22.11 ng/L (0-10) H 08/08/24 20:15 Troponin T Hi Sens 6Hr Delta 2.11 ng/L (0-12) 08/08/24 20:15 NT-Pro-B Natriuret Pep 7248 pg/mL (0-450) H 08/08/24 13:17 Total Protein 6.9 g/dL (6.6-8.7) D 08/08/24 13:17 Albumin 3.2 g/dL (3.5-5.2) L 08/08/24 13:17 Globulin 3.7 g/dL (1.3-4.6) 08/08/24 13:17 Procalcitonin 0.08 ng/mL (0-0.5) 08/08/24 15:42 TSH 4.04 uIU/mL (0.27-4.20) 08/08/24 15:42 Urine Color Yellow (Yellow) 08/08/24 14:43 Urine Appearance Clear (CLEAR) 08/08/24 14:43 Urine pH 5.0 (5-7) 08/08/24 14:43 Ur Specific [place] 1.013 (1.005-1.030) 08/08/24 14:43 Urine Protein Trace (Negative) A 08/08/24 14:43 Urine Glucose (UA) Negative (Normal) 08/08/24 14:43 Urine Ketones Negative (Negative) 08/08/24 14:43 Urine Blood Negative (Negative) 08/08/24 14:43 Urine Nitrate Negative (Negative) 08/08/24 14:43 Urine Bilirubin Negative (Negative) 08/08/24 14:43 Urine Urobilinogen 0.2 mg/dL (Negative) 08/08/24 14:43 Ur Leukocyte Esterase Negative (Negative) 08/08/24 14:43 Urine RBC 0-2 /hpf (0-2) 08/08/24 14:43 Urine WBC 0-5 /hpf (0-5) 08/08/24 14:43 Ur Squamous Epith Cells 0-5 /hpf (0-5) 08/08/24 14:43 Amorphous Sediment 1+ /hpf 08/08/24 14:43 Urine Bacteria None seen /hpf (NONE) 08/08/24 14:43 Hyaline Casts 24.38 /lpf 08/08/24 14:43 Fine Granular Casts 0-4 /lpf H 08/08/24 14:43 Urine Opiates Screen Negative ng/mL (Negative) 08/08/24 14:43 Ur Barbiturates Screen Positive ng/mL (Negative) H 08/08/24 14:43 Phenytoin 21.8 ug/mL (10-20) H 08/08/24 15:42 Ur Phencyclidine Scrn Negative ng/mL (Negative) 08/08/24 14:43 Ur Amphetamines Screen Negative ng/mL (Negative) 08/08/24 14:43 U Benzodiazepines Scrn Negative ng/mL (Negative) 08/08/24 14:43 Urine Cocaine Screen Negative ng/mL (Negative) 08/08/24 14:43 U Marijuana (THC) Screen Negative ng/mL (Negative) 08/08/24 14:43 Ethyl Alcohol < 10 mg/dL (0-10) 08/08/24 13:17 Vitals Last Vital Signs Temp 98 F 08/10/24 08:00 Pulse 67 08/10/24 11:24 Resp 17 08/10/24 11:15 BP 138/67 08/10/24 11:00 Pulse Ox 92 08/10/24 11:15 O2 Del Method Nasal Cannula 08/10/24 11:15 O2 Flow Rate 3 08/10/24 11:15 FiO2 36 08/09/24 11:14 Discharge Plan Discharge Patient Disposition: Home Condition: Stable Prescriptions: New furosemide [Lasix] 20 mg tablet 20 mg PO DAILY Qty: 5 0RF prednisone 10 mg tablet 10 mg PO DAILY Qty: 6 0RF Continued Spiriva Respimat 2.5 mcg/actuation mist 2 puff inhalation DAILY Qty: 4 3RF phenytoin sodium extended [Dilantin Extended] 100 mg capsule 300 mg PO BID fluticasone propionate 50 mcg/actuation spray,suspension 1 spray INTRANASAL DAILY PRN (Reason: allergies) gabapentin 300 mg capsule 300 mg PO BID esomeprazole magnesium [Nexium] 20 mg capsule,delayed release(DR/EC) 20 mg PO DAILY oxycodone-acetaminophen [Percocet] 10-325 mg tablet 1 tab PO Q4H PRN (Reason: Pain) desvenlafaxine succinate [Pristiq] 50 mg tablet extended release 24 hr 50 mg PO DAILY cetirizine [Zyrtec] 10 mg tablet 10 mg PO DAILY PRN (Reason: Allergy Symptoms) ergocalciferol (vitamin D2) [Vitamin D2] 1,250 mcg (50,000 unit) Capsule 1,250 mcg PO DAILY Rx Instructions: ON WEDNESDAYS potassium chloride 20 mEq Tablet Extended Release 20 meq PO DAILY albuterol sulfate 90 mcg/actuation HFA aerosol inhaler 2 inh inhalation Q6H PRN (Reason: shortness of breath or wheezing) Qty: 8.5 2RF metformin 500 mg tablet 500 mg PO BID bumetanide 2 mg tablet 2 mg PO DAILY Eliquis 5 mg tablet 5 mg PO BID levothyroxine 125 mcg tablet 125 mcg PO DAILY Trulicity 1.5 mg/0.5 mL pen injector 0.5 mg SUBCUT Q7D clopidogrel 75 mg tablet 75 mg PO DAILY Qty: 30 0RF aspirin 81 mg capsule 81 mg PO DAILY Qty: 30 0RF atorvastatin 40 mg tablet 40 mg PO DAILY Qty: 30 0RF Discontinued metoprolol succinate 25 mg tablet extended release 24 hr 25 mg PO BID Discharge Orders: Discharge Order (Routine); Ordered 08/10/24 Ordered By: Deysi Sotelo Referrals: Adrienne March DO [Primary Care Provider] - Discharge Diet: Cardiac Discharge Activity: Increase activity as tolerated Patient Instructions: Opioid Safety Discharge Attestations Time Spent in Discharge Care*: less than 30 min Quality Metrics Clinical Quality Measures [ No reported AMI, CVA or VTE this stay] Coding Level of Care Code Acute Code for Chg Fwd Diagnoses Acute on chronic diastolic heart failure I50.33 Heart failure chronicity: acute on chronic CHF (congestive heart failure) I50.9 Heart failure chronicity: acute on chronic Exertional dyspnea R06.00 Obesity E66.9 COPD (chronic obstructive pulmonary disease) J44.9 Community acquired pneumonia J18.9 Laterality: right Lung location: lower lobe of lung Hypoxia R09.02 Hyperkalemia E87.5 Bradycardia R00.1 Pneumonia J18.9 Cellulitis L03.90 Diabetes E11.9 Chronic anticoagulation Z79.01 Time Spent (min) 25
--- NOTE | 2024-08-10 15:49 | PC.OT ---
OT attempted to evaluate. Pt. already discharged.
--- NOTE | 2024-08-10 16:03 | PC.NURSE ---
Pt discharged with family after instructions reviewed and they verbalized understanding. Assisted pt to Heart care services for her event monitor.
== END 2024-08-10 15:45 | disposition home health service (06) | DRG 640 ==
LOC: ER 14:59 → MEDSURG 15:13 → ICU 18:44
PROVIDERS: Hospitalist; Admitting Provider Internal Medicine; Emergency Provider Emergency Medicine; PCP Family Medicine; Visit Provider Internal Medicine
DX: E87.5 Hyperkalemia (principal); I50.33 Acute on chronic diastolic (congestive) heart failure; J18.9 Pneumonia, unspecified organism; I13.0 Hypertensive heart and chronic kidney disease with heart failure and stage 1 through stage 4 chronic kidney disease, or unspecified chronic kidney disease; N17.9 Acute kidney failure, unspecified; Z68.41 Body mass index [BMI] 40.0-44.9, adult; L03.116 Cellulitis of left lower limb; L03.115 Cellulitis of right lower limb; E13.22 Other specified diabetes mellitus with diabetic chronic kidney disease; N18.9 Chronic kidney disease, unspecified; E66.9 Obesity, unspecified; J44.9 Chronic obstructive pulmonary disease, unspecified; R09.02 Hypoxemia; R00.1 Bradycardia, unspecified; G40.909 Epilepsy, unspecified, not intractable, without status epilepticus; E78.5 Hyperlipidemia, unspecified; E03.9 Hypothyroidism, unspecified; Z66 Do not resuscitate; I35.0 Nonrheumatic aortic (valve) stenosis; I48.91 Unspecified atrial fibrillation; Z86.73 Personal history of transient ischemic attack (TIA), and cerebral infarction without residual deficits; Z79.01 Long term (current) use of anticoagulants; Z79.84 Long term (current) use of oral hypoglycemic drugs; Z79.82 Long term (current) use of aspirin; Z79.02 Long term (current) use of antithrombotics/antiplatelets; Z79.85 Long-term (current) use of injectable non-insulin antidiabetic drugs
CPT/HCPCS: 36415; 36416; 36600; 51702; 71045; 80048; 80053; 80185; 80306; 80307; 81001; 82803; 82962; 83036; 83605; 83735; 83880; 84145; 84443; 84484; 85025; 86403; 87040; 87077; 87086; 87186; 87449; 93005; 93306; 94640; 94660; 96372; 96374; 96375; 96376; 97110; 97116; 97161; 99291; J0612; J0696; J1815; J1940; J2543; J2919; J3370; J3372; J3475; J7799

== ENCOUNTER 2024-08-18 22:37 | Emergency (ER) | payer MEDICARE, MEDICAID, SELFPAY ==
[2024-08-18 22:43] VITALS: BP 137/62; PULSE 57; RESP 20; TEMP 36.4; O2SAT 93
--- NOTE | 2024-08-18 22:49 | ECG_ITS ---
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 Measurements Intervals Mars Rate: 57 P: 0 CA: 0 QRS: 222 QRSD: 130 T: -28 QT: 423 QTc: 413 Interpretive Statements SUPRAVENTRICULAR RHYTHM RIGHT BUNDLE BRANCH BLOCK Electronically Signed On 08-19-2024 10:24:20 MOTORMAN/WOMAN by Tariq Cannon M.D. [email or web address]
--- NOTE | 2024-08-18 22:53 | XRR_ITS ---
PROCEDURE INFORMATION: Exam: XR Chest Exam date and time: 08/18/2024 11:00 PM Age: 78 years old Clinical indication: Shortness of breath; Patient HX: SOB; Fluid retention; Dyspnea; PT currently wearing halter monitor TECHNIQUE: Imaging protocol: Radiologic exam of the chest. Views: 1 view. COMPARISON: CR XR chest 1V portable [id number] 08/08/2024 12:50 PM FINDINGS: Tubes, catheters and devices: Cardiac monitoring device. Lungs: Right basilar atelectasis. No consolidation. Pleural spaces: Stable small right-sided pleural effusion. No pneumothorax. Heart/Mediastinum: Unremarkable. No cardiomegaly. Bones/joints: ACDF. XR/XR chest 1V portable [id number] IMPRESSION: Stable small right-sided pleural effusion.
[2024-08-18 23:34] LABS: Basophils # 0.1 10^3/uL (0.0-0.1); Basophils % 0.6 %; Eosinophils # 0.4 10^3/uL (0.0-0.8); Eosinophils % 4.4 %; Hematocrit 38.2 % (36-47); Lymphocytes # 1.7 10^3/uL (0.8-4.8); Lymphocytes % 18.9 %; Mean Corpuscular HGB Conc 30.4 g/dL (30-55); Mean Corpuscular Volume 98.7 fl (85-98); Mean Platelet Volume 8.1 fL (7.4-10.4); Monocytes # 0.8 10^3/uL (0.2-0.9); Neutrophils # 5.82 10^3/uL (1.8-7.7); Neutrophils % 66.8 %; Nucleated Red Blood Cells % 0 %; Platelet Count 284 10^3/cmm (157-399); Red Blood Count 3.87 10^6/uL (3.85-5.65); Red Cell Distribution Width 13.6 % (12.1-15.1); White Blood Count 8.71 10^3/uL (3.29-11.43)
--- NOTE | 2024-08-18 23:40 | ED_ITS ---
HPI - SOB/Dyspnea 2 General: Chief Complaint: Shortness of Breath/Dyspnea Stated Complaint: holding fluid legs/ stomach SOB Time Seen by Provider: 08/18/24 22:52 History of Present Illness: HPI Narrative: 78-year-old female with a history of CHF . She had a recent admission for CHF, pulmonary edema, hyperkalemia. She presents with 2 days of weight gain with increasing shortness of breath at home. She is short of breath on her normal 2 L at home. She denies fever. Mild cough. No sputum production. She says her legs are more swollen. She denies significant chest pain. She believes her stomach is a bit swollen as well. Related Data Home Medications Medication Instructions Recorded Confirmed cetirizine 10 mg tablet (Zyrtec) 10 mg PO DAILY PRN Allergy Symptoms 11/13/19 08/08/24 desvenlafaxine succinate 50 mg 50 mg PO DAILY 11/13/19 08/08/24 tablet,extended release 24 hr (Pristiq) esomeprazole magnesium 20 mg 20 mg PO DAILY 11/13/19 08/08/24 capsule,delayed release (Nexium) fluticasone propionate 50 1 spray intranasal DAILY PRN 11/13/19 08/08/24 mcg/actuation nasal allergies spray,suspension gabapentin 300 mg capsule 300 mg PO BID 11/13/19 08/08/24 oxycodone-acetaminophen 10 mg-325 1 tab PO Q4H PRN Pain 11/13/19 08/08/24 mg tablet (Percocet) phenytoin sodium extended 100 mg 300 mg PO BID 11/13/19 08/08/24 capsule (Dilantin Extended) ergocalciferol (vitamin D2) 1,250 1,250 mcg PO DAILY 09/14/21 08/08/24 mcg (50,000 unit) capsule (Vitamin D2) potassium chloride 20 mEq 20 meq PO DAILY 09/14/21 08/08/24 tablet,extended release apixaban 5 mg tablet (Eliquis) 5 mg PO BID 08/08/24 08/08/24 bumetanide 2 mg tablet 2 mg PO DAILY 08/08/24 08/08/24 dulaglutide 1.5 mg/0.5 mL 0.5 mg SUBCUT Q7D 08/08/24 08/08/24 [facility] levothyroxine 125 mcg tablet 125 mcg PO DAILY 08/08/24 08/08/24 metformin 500 mg tablet 500 mg PO BID 08/08/24 08/08/24 Previous Rx's Medication Instructions Recorded albuterol sulfate 90 mcg/actuation 2 inh inhalation Q6H PRN shortness 09/17/21 aerosol inhaler of breath or wheezing #8.5 grams tiotropium bromide 2.5 2 puff inhalation DAILY #4 grams 10/15/21 mcg/actuation mist for inhalation (Spiriva Respimat) aspirin 81 mg capsule 81 mg PO DAILY #30 caps 08/07/24 atorvastatin 40 mg tablet 40 mg PO DAILY #30 tabs 08/07/24 clopidogrel 75 mg tablet 75 mg PO DAILY #30 tabs 08/07/24 prednisone 10 mg tablet 10 mg PO DAILY #6 tabs 08/10/24 bumetanide 2 mg tablet 2 mg PO DAILY #7 tabs 08/19/24 Allergies Allergy/AdvReac Type Severity Reaction Status Date / Time adhesive tape Allergy Unknown Verified 08/18/24 22:50 silver sulfadiazine Allergy ALGY-Rash Verified 08/18/24 22:50 [From Silvadene] [facility] ED 2 PFSH: Medical History Chronic anticoagulation Diabetes Hypoxia Diastolic heart failure Exertional dyspnea COPD (chronic obstructive pulmonary disease) Seizure disorder Mild aortic stenosis Obesity Diabetes 1.5, managed as type 2 Hyperlipidemia HTN (hypertension) Hypothyroidism CVA (cerebral vascular accident) Surgical History Previous back surgery S/P hysterectomy Family History Father Stroke Hypertension Mother Hypertension CAD (coronary artery disease) Myocardial infarction Sister Hypertension CAD (coronary artery disease) Myocardial infarction Brother CAD (coronary artery disease) Myocardial infarction Denies family history of Colon cancer Pancreatic cancer Ovarian cancer Thyroid cancer Diabetes Breast cancer Cancer Uterine cancer Social History Smoking and tobacco/nicotine status: never used tobacco/nicotine Household members: spouse Marital status: Physical Exam 2 Const: GENERAL APPEARANCE: cooperative and frail appearing HENMT: COMMON NORMALS: normocephalic, atraumatic and Normal external nose present HEAD & SCALP: normocephalic and atraumatic FACE & SINUS: normal facial exam and face symmetric NOSE: Normal external nose present Eye: COMMON NORMALS: Equal, round and reactive pupils present and EOMs intact bilaterally PUPIL: Yes Equal, round and reactive pupils present Neck/C-Spine: GENERAL: Yes trachea midline Chest: CHEST: Yes Symmetrical chest wall rise Resp: COMMON NORMALS: clear to auscultation bilaterally EFFORT & INSPECTION: Yes tachypneic AUSCULTATION: clear to auscultation bilaterally and diminished lung sounds Cardio: COMMON NORMALS: regular rate and regular rhythm RATE: regular rate RHYTHM: regular rhythm GI: COMMON NORMALS: Normal to inspection, nondistended, normoactive bowel sounds present Extremity: GENERAL: Yes edema Neuro: ROSALINDA COMA SCALE: document GCS findings [place] coma scale eye opening: Spontaneous Rosalinda coma scale verbal response: Orientated Rosalinda coma scale motor response: Obey commands [place] coma scale total score: 15 S ENSORY EXAM: Yes extremities (intact) Psych: COMMON NORMALS: speech normal SPEECH: Yes normal speech Course 2 Vital Signs: Vital signs: Vital Signs Temperature 97.5 F L 08/18/24 22:43 Pulse Rate 63 08/19/24 01:48 Respiratory Rate 16 08/19/24 01:48 Blood Pressure 145/65 08/19/24 01:48 Pulse Oximetry 91 08/19/24 01:48 Oxygen Delivery Me thod Nasal Cannula 08/18/24 23:58 Oxygen Flow Rate 2 08/18/24 23:58 MDM - SOB/Dyspnea Medical Decision Making Patient has been stable on her normal oxygen settings here without hypoxia. She is mildly winded. Vitals have been good. She is given 2 milligrams of IV bumex and it's starting to diurese appropriately. She's feeling improved and would like to go home. She was offered admission. X-ray shows a small right sided pleural effusion. It is stable from prior. Laboratory shows a lactic acid of 1.6, BNP of 6800, which is improved from prior, and a delta troponin of -1.1. She is stable for discharge, she'll be allowed home to return for any worsening symptoms. She will stop her lasix for the next week, in favor of view Max, then resume lasix. She demonstrates understanding. Lab Data 08/18/24 23:26 08/18/24 23:26 Labs/Radiology: Radiology Impressions Chest X-Ray 08/18/24 22:53 IMPRESSION: Stable small right-sided pleural effusion. Laboratory Results WBC 8.71 10^3/uL (3.29-11.43) 08/18/24 23:26 RBC 3.87 10^6/uL (3.85-5.65) 08/18/24 23:26 Hgb 11.60 g/dL (11.27-16.99) 08/18/24 23:26 Hct 38.2 % (36-47) 08/18/24 23:26 MCV 98.7 fl (85-98) H 08/18/24 23: MCH 30.0 pg (27-33) 08/18/24 23: MCHC 30.4 g/dL (30-55) 08/18/24 23:26 RDW 13.6 % (12.1-15.1) 08/18/24 23:26 Plt Count 284 10^3/cmm (157-399) 08/18/24 23:26 MPV 8.1 fL (7.4-10.4) 08/18/24 23:26 Neut % (Auto) 66.8 % 08/18/24 23:26 Lymph % (Auto) 18.9 % 08/18/24 23:26 [place] % (Auto) 9.0 % 08/18/24 23:26 Eos % (Auto) 4.4 % 08/18/24 23:26 Baso % (Auto) 0.6 % 08/18/24 23: Neut # (Auto) 5.82 10^3/uL (1.8-7.7) 08/18/24 23:26 Lymph # (Auto) 1.7 10^3/uL (0.8-4.8) 08/18/24 23:26 [place] # (Auto) 0.8 10^3/uL (0.2-0.9) 08/18/24 23:26 Eos # (Auto) 0.4 10^3/uL (0.0-0.8) 08/18/24 23:26 Baso # (Auto) 0.1 10^3/uL (0.0-0.1) 08/18/24 23:26 Nucleated RBC % (auto) 0 % 08/18/24 23:26 Nucleated RBCs # 0.0 /100WBC 08/18/24 23:26 Sodium 139 mmol/L (136-145) 08/18/24 23:26 Potassium 4.4 mmol/L (3.5-5.1) 08/18/24 23:26 Chloride 98 mmol/L (98-107) 08/18/24 23:26 Carbon Dioxide 32 mmol/L (22-29) H 08/18/24 23:26 Anion Gap 13.4 (5-19) 08/18/24 23:26 BUN 15 mg/dL (8-23) 08/18/24 23:26 Creatinine 1.0 mg/dL (0.5-0.9) H 08/18/24 23:26 GFR Calculation Not Reportable 08/18/24 23:26 Glucose 181 mg/dL (65-115) H 08/18/24 23:26 Calculated Osmolality 293 mOsm/kg (285-295) 08/18/24 23:26 Lactic Acid 1.6 mmol/L (0.5-2.2) 08/18/24 23:26 Calcium 8.2 mg/dL (8.5-10.5) L 08/18/24 23:26 Magnesium 1.5 mg/dL (1.7-2.3) L 08/18/24 23:26 Total Bilirubin 0.2 mg/dL (0.15-1.2) 08/18/24 23:26 AST 20 U/L (0-32) 08/18/24 23:26 ALT 22 U/L (0-33) 08/18/24 23:26 Alkaline Phosphatase 115 U/L (35-105) H 08/18/24 23:26 Troponin T Baseline 19 ng/L (0-10) H 08/18/24 23:26 Troponin T 120 Minute 17.88 ng/L (0-10) H 08/19/24 01:17 Delta Troponin T -1.12 ABS# (0-10) L 08/19/24 01:17 NT-Pro-B Natriuret Pep 6827 pg/mL (0-450) H 08/18/24 23:26 Total Protein 7.4 g/dL (6.6-8.7) 08/18/24 23:26 Albumin 3.7 g/dL (3.5-5.2) 08/18/24 23:26 Globulin 3.7 g/dL (1.3-4.6) 08/18/24 23:26 Procalcitonin 0.08 ng/mL (0-0.5) 08/18/24 23:26 Urine Color Yellow (Yellow) 08/19/24 00:25 Urine Appearance Clear (CLEAR) 08/19/24 00:25 Urine pH 5.5 (5-7) 08/19/24 00:25 Ur Specific [place] 1.006 (1.005-1.030) 08/19/24 00:25 Urine Protein Negative (Negative) 08/19/24 00:25 Urine Glucose (UA) Negative (Normal) 08/19/24 00:25 Urine Ketones Negative (Negative) 08/19/24 00:25 Urine Blood Negative (Negative) 08/19/24 00:25 Urine Nitrate Negative (Negative) 08/19/24 00:25 Urine Bilirubin Negative (Negative) 08/19/24 00:25 Urine Urobilinogen 0.2 mg/dL (Negative) 08/19/24 00:25 Ur Leukocyte Esterase Negative (Negative) 08/19/24 00:25 Urine RBC 0-2 /hpf (0-2) 08/19/24 00:25 Urine WBC 0-5 /hpf (0-5) 08/19/24 00:25 Ur Squamous Epith Cells 0-5 /hpf (0-5) 08/19/24 00:25 Amorphous Sediment Not Reportable 08/19/24 00:25 Urine Bacteria None seen /hpf (NONE) 08/19/24 00:25 Hyaline Casts 0.81 /lpf 08/19/24 00:25 All radiology interpretation(s) finalized by discharge ED provider radiology interpretation(s): Patient to diurese after 2 mg of IV Bumex was given. She has put out a significant amount of fluid. She is feeling improved. She wishes to go home. She will be allowed discharge to home. Urinalysis is negative. CBC is not remarkable. BMP is not remarkable. BNP is 6800, which is less than it was during her prior hospitalization. Her lactic acid is 1.6. Chest x-ray shows a stable small right-sided pleural effusion from prior. Discharge Plan Discharge Patient Disposition: Home Clinical Impression: Congestive heart failure Condition: Stable Prescriptions: New bumetanide 2 mg tablet 2 mg PO DAILY Qty: 7 0RF Discontinued furosemide [Lasix] 20 mg tablet 20 mg PO DAILY Qty: 5 0RF No Action Spiriva Respimat 2.5 mcg/actuation mist 2 puff inhalation DAILY Qty: 4 3RF phenytoin sodium extended [Dilantin Extended] 100 mg capsule 300 mg PO BID fluticasone propionate 50 mcg/actuation spray,suspension 1 spray INTRANASAL DAILY PRN (Reason: allergies) gabapentin 300 mg capsule 300 mg PO BID esomeprazole magnesium [Nexium] 20 mg capsule,delayed release(DR/EC) 20 mg PO DAILY oxycodone-acetaminophen [Percocet] 10-325 mg tablet 1 tab PO Q4H PRN (Reason: Pain) desvenlafaxine succinate [Pristiq] 50 mg tablet extended release 24 hr 50 mg PO DAILY cetirizine [Zyrtec] 10 mg tablet 10 mg PO DAILY PRN (Reason: Allergy Symptoms) ergocalciferol (vitamin D2) [Vitamin D2] 1,250 mcg (50,000 unit) Capsule 1,250 mcg PO DAILY Rx Instructions: ON WEDNESDAYS potassium chloride 20 mEq Tablet Extended Release 20 meq PO DAILY albuterol sulfate 90 mcg/actuation HFA aerosol inhaler 2 inh inhalation Q6H PRN (Reason: shortness of breath or wheezing) Qty: 8.5 2RF metformin 500 mg tablet 500 mg PO BID bumetanide 2 mg tablet 2 mg PO DAILY Eliquis 5 mg tablet 5 mg PO BID levothyroxine 125 mcg tablet 125 mcg PO DAILY Trulicity 1.5 mg/0.5 mL pen injector 0.5 mg SUBCUT Q7D prednisone 10 mg tablet 10 mg PO DAILY Qty: 6 0RF clopidogrel 75 mg tablet 75 mg PO DAILY Qty: 30 0RF aspirin 81 mg capsule 81 mg PO DAILY Qty: 30 0RF atorvastatin 40 mg tablet 40 mg PO DAILY Qty: 30 0RF Discharge Orders: Discharge ED (Routine); Ordered 08/19/24 Ordered By: Javan Barrientos Referrals: Adrienne March DO [Primary Care Provider] - 1-3 days Patient Instructions: Heart Failure (ED), Opioid Safety, Pain Management Activity Restrictions/Additional Instructions: Stop your furosemide for now. Take the bumetanide instead, 2 mg daily for the next week, then you may start back on your furosemide. Return for worsening shortness of breath despite treatment, development of fever, chest pain, other concerning symptoms. Weigh yourself daily to ensure you are not gaining water weight. See your doctor next week. Coding Level of Care Code ED Floor Assembler for Valentin Mace
[2024-08-18 23:48] LABS: Lactic Sepsis W/Reflex 1.6 mmol/L (0.5-2.2)
[2024-08-18 23:51] LABS: Troponin(5th) Baseline 19 ng/L (0-10)
[2024-08-18] MEDS: bumetanide 0.25 mg/mL SDV 10 mL 2 MG IVP (23:56)
[2024-08-18 23:58] VITALS: BP 123/63; PULSE 60; RESP 18; O2SAT 94
[2024-08-18 23:58] LABS: NT Pro B Type Natriuretic Pept 6827 pg/mL (0-450); Procalcitonin 0.08 ng/mL (0-0.5)
[2024-08-19 00:09] LABS: Alanine Aminotransferase 22 U/L (0-33); Albumin Level 3.7 g/dL (3.5-5.2); Alkaline Phosphatase 115 U/L (35-105); Anion Gap 13.4 (5-19); Aspartate Amino Transferase 20 U/L (0-32); Blood Urea Nitrogen 15 mg/dL (8-23); Calcium 8.2 mg/dL (8.5-10.5); Carbon Dioxide 32 mmol/L (22-29); Chloride 98 mmol/L (98-107); Creatinine Clr Calc Pharmacy 53.6934; Globulin 3.7 g/dL (1.3-4.6); Glucose 181 mg/dL (65-115); Magnesium 1.5 mg/dL (1.7-2.3); Osmolality Calculated 293 mOsm/kg (285-295); Potassium 4.4 mmol/L (3.5-5.1); Sodium 139 mmol/L (136-145); Total Bilirubin 0.2 mg/dL (0.15-1.2); Total Protein 7.4 g/dL (6.6-8.7)
[2024-08-19 00:28] LABS: Bilirubin Urine Negative (Negative); Blood Urine Negative (Negative); Glucose Urine UA Negative (Normal); Ketones Urine Negative (Negative); Leukocyte Esterase Urine Negative (Negative); Nitrate Urine Negative (Negative); Protein Urine Negative (Negative); Specific Gravity, Urine 1.006 (1.005-1.030); Urine Appearance Clear (CLEAR); Urine Color Yellow (Yellow); Urobilinogen Urine 0.2 mg/dL (Negative); pH Urine 5.5 (5-7)
[2024-08-19 00:33] LABS: Add Urine Microscopic? YES; Bacteria Urine None Seen /hpf; Hyaline Casts Urine 0.81 /lpf; RBC Urine 0-2 /hpf (0-2); Squamous Epithelial Cell Urine 0-5 /hpf (0-5); WBC Urine 0-5 /hpf (0-5)
[2024-08-19 01:48] VITALS: BP 145/65; PULSE 63; RESP 16; O2SAT 91
[2024-08-19 01:54] LABS: Troponin 5 2HR 17.88 ng/L (0-10)
[2024-08-19 01:55] LABS: Troponin 5 2HR Delta -1.12 ABS# (0-10)
== END 2024-08-19 01:50 | disposition home or self-care (01) ==
PROVIDERS: Physician Assistant; Emergency Provider Emergency Medicine; PCP Family Medicine
DX: I11.0 Hypertensive heart disease with heart failure (principal); I50.30 Unspecified diastolic (congestive) heart failure; J44.9 Chronic obstructive pulmonary disease, unspecified; E13.8 Other specified diabetes mellitus with unspecified complications; Z86.73 Personal history of transient ischemic attack (TIA), and cerebral infarction without residual deficits; E78.5 Hyperlipidemia, unspecified
CPT/HCPCS: 36415; 71045; 80053; 81001; 83605; 83735; 83880; 84145; 84484; 85025; 93005; 96374; 99285; J3490

== ENCOUNTER 2024-08-21 13:03 | Emergency (ER) | payer MEDICARE, MEDICAID, SELFPAY ==
--- NOTE | 2024-08-21 13:15 | XR_ITS ---
WS: [id number] XR chest 1V portable [id number] REASON FOR EXAM: dyspnea/cough FINDINGS: The chest is relatively unchanged compared to 08/08/2024. There is moderate cardiomegaly. Enlarged upper lobe pulmonary veins. There are bilateral pleural effusions. There is consolidation in the right lower lung which appears to represent atelectasis. XR/XR chest 1V portable [id number] IMPRESSION: Stable abnormal chest with cardiomegaly, pulmonary venous hypertension, and ple ural effusions.
[2024-08-21 13:19] VITALS: BP 140/66; PULSE 58; RESP 20; TEMP 36.7; O2SAT 90; BMI 42.0
--- NOTE | 2024-08-21 13:38 | ECG_ITS ---
[employer] 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 Measurements Intervals [place] Rate: 59 P: 256 OK: 162 QRS: 225 QRSD: 135 T: -22 QT: 431 QTc: 429 Interpretive Statements SINUS BRADYCARDIA RIGHT BUNDLE BRANCH BLOCK [120+ ms QRS DURATION, UPRIGHT V1, 40+ ms S IN I/aVL/V4/V5/V6] INFERIOR MYOCARDIAL INFARCTION , OF INDETERMINATE AGE [40+ ms Q WAVE AND/OR ST/T ABNORMALITY IN II/aVF] ANTEROSEPTAL MYOCARDIAL INFARCTION , OF INDETERMINATE AGE [40+ ms Q WAVE IN V1-V4] Compared to ECG 08/18/2024 22:52:37 Right-axis deviation now present T-wave abnormality now present Possible ischemia now present Supraventricular rhythm no longer present Electronically Signed On 08-22-2024 21:38:46 DRAWING PRESS OPERATOR by Tariq Cannon M.D. [email or web address]
[2024-08-21 14:10] LABS: Basophils # 0.1 10^3/uL (0.0-0.1); Basophils % 0.6 %; Eosinophils # 0.3 10^3/uL (0.0-0.8); Eosinophils % 3.4 %; Hematocrit 35.3 % (36-47); Lymphocytes # 1.5 10^3/uL (0.8-4.8); Lymphocytes % 17.9 %; Mean Corpuscular HGB Conc 30.3 g/dL (30-55); Mean Corpuscular Hemoglobin 30.4 pg (27-33); Mean Corpuscular Volume 100.3 fl (85-98); Mean Platelet Volume 8.3 fL (7.4-10.4); Monocytes # 0.7 10^3/uL (0.2-0.9); Monocytes % 8.3 %; Neutrophils # 5.67 10^3/uL (1.8-7.7); Neutrophils % 69.2 %; Nucleated Red Blood Cells % 0 %; Platelet Count 300 10^3/cmm (157-399); Red Blood Count 3.52 10^6/uL (3.85-5.65); Red Cell Distribution Width 13.7 % (12.1-15.1)
--- NOTE | 2024-08-21 14:16 | ED_ITS ---
Documented by User: Pedro Hodgson, 08/22/24 06:07 HPI - SOB/Dyspnea 2 General: Chief Complaint: Shortness of Breath/Dyspnea Stated Complaint: fluid on lungs, sob Time Seen by Provider: 08/21/24 13:14 History of Present Illness: HPI Narrative: 78-year-old female who presents emergenc y room with increased weight gain and history of heart failure. She had some worsening shortness of breath she says. She denies any chest pain she has worsening orthopnea no fever sweats or chills or productive cough no abdominal pain Associated symptoms: Reports orthopnea; Deny abdominal pain, chest pain or fever(s) Related Data Home Medications Medication Instructions Recorded Confirmed cetirizine 10 mg tablet (Zyrtec) 10 mg PO DAILY PRN Allergy Symptoms 11/13/19 08/21/24 desvenlafaxine succinate 50 mg 50 mg PO DAILY 11/13/19 08/21/24 tablet,extended release 24 hr (Pristiq) esomeprazole magnesium 20 mg 20 mg PO DAILY 11/13/19 08/21/24 capsule,delayed release (Nexium) fluticasone propionate 50 1 spray intranasal DAILY PRN 11/13/19 08/21/24 mcg/actuation nasal allergies spray,suspension gabapentin 300 mg capsule 300 mg PO BID 11/13/19 08/21/24 oxycodone-acetaminophen 10 mg-325 1 tab PO Q4H PRN Pain 11/13/19 08/21/24 mg tablet (Percocet) phenytoin sodium extended 100 mg 300 mg PO BID 11/13/19 08/21/24 capsule (Dilantin Extended) ergocalciferol (vitamin D2) 1,250 1,250 mcg PO DAILY 09/14/21 08/21/24 mcg (50,000 unit) capsule (Vitamin D2) potassium chloride 20 mEq 20 meq PO DAILY 09/14/21 08/21/24 tablet,extended release apixaban 5 mg tablet (Eliquis) 5 mg PO BID 08/08/24 08/21/24 dulaglutide 1.5 mg/0.5 mL 0.5 mg SUBCUT Q7D 08/08/24 08/21/24 [facility] levothyroxine 125 mcg tablet 125 mcg PO DAILY 08/08/24 08/21/24 metformin 500 mg tablet 500 mg PO BID 08/08/24 08/21/24 azelastine 137 mcg (0.1 %) nasal 2 spray intranasal BID 08/21/24 08/21/24 spray furosemide 40 mg tablet 40 mg PO DAILY 08/21/24 08/21/24 lisinopril 5 mg tablet 5 mg PO DAILY 08/21/24 08/21/24 metoprolol succinate 25 mg 25 mg PO DAILY 08/21/24 08/21/24 tablet,extended release 24 hr Previous Rx's Medication Instructions Recorded aspirin 81 mg capsule 81 mg PO DAILY #30 caps 08/07/24 atorvastatin 40 mg tablet 40 mg PO DAILY #30 tabs 08/07/24 clopidogrel 75 mg tablet 75 mg PO DAILY #30 tabs 08/07/24 bumetanide 2 mg tablet 2 mg PO DAILY #7 tabs 08/19/24 furosemide 40 mg tablet (Lasix) 40 mg PO QAM 5 days #5 tabs 08/21/24 Allergies Allergy/AdvReac Type Severity Reaction Status Date / Time adhesive tape Allergy Unknown Verified 08/18/24 22:50 silver sulfadiazine Allergy ALGY-Rash Verified 08/18/24 22:50 [From [facility]] Review of Systems 2 Const: Denies: fever(s) or chills Card: Reports: edema, swelling of feet/ankles, dyspnea on exertion and orthopnea; Denies: chest pain Resp: Reports: dyspnea GI: Denies: abdominal pain : Denies: dysuria, urinary frequency or urinary urgency Musc: Denies: neck pain or back pain Skin/Breast: Denies: rash PFSH ED 2 PFSH: Medical History Chronic anticoagulation Diabetes Hypoxia Diastolic heart failure Exertional dyspnea COPD (chronic obstructive pulmonary disease) Seizure disorder Mild aortic stenosis Obesity Diabetes 1.5, managed as type 2 Hyperlipidemia HTN (hypertension) Hypothyroidism CVA (cerebral vascular accident) Surgical History Previous back surgery S/P hysterectomy Family History Father Stroke Hypertension Mother Hypertension CAD (coronary artery disease) Myocardial infarction Sister Hypertension CAD (coronary artery disease) Myocardial infarction Brother CAD (coronary artery disease) Myocardial infarction Denies family history of Colon cancer Pancreatic cancer Ovarian cancer Thyroid cancer Diabetes Breast cancer Cancer Uterine cancer Social History Smoking and tobacco/nicotine status: never used tobacco/nicotine Household members: spouse Marital status: Physical Exam 2 Const: GENERAL APPEARANCE: cooperative ORIENTATION/CONSCIOUSNESS: Yes awake, Yes oriented to person, Yes oriented to place and Yes oriented to time HENMT: COMMON NORMALS: normocephalic, atraumatic and hearing grossly normal bilaterally HEAD & SCALP: normocephalic and atraumatic Resp: COMMON NORMALS: normal respiratory effort, No retractions, No use of accessory muscles and clear to auscultation bilaterally AUSCULTATION: clear to auscultation bilaterally Cardio: COMMON NORMALS: regular rate, regular rhythm and No murmurs present (Cardio) RATE: regular rate RHYTHM: regular rhythm GI: COMMON NORMALS: Soft to palpation and No hepatosplenomegaly present A USCULTATION: Yes normoactive bowel sounds PALPATION: Yes Soft to palpation, No Tenderness to palpation present (GI), No Guarding due to palpation present (GI) and Yes No hepatosplenomegaly present Extremity: COMMON NORMALS: normal to inspection, capillary refill normal, no clubbing, cyanosis or edema, no calf tenderness and no pedal edema Neuro: SENSORIUM/ORIENTATION: Yes oriented to person, Yes oriented to place and Yes oriented to time Skin: COMMON NORMALS: no rashes or lesions noted GENERAL SKIN EXAM: no rashes or lesions noted Course 2 Vital Signs: Vital signs: Vital Signs Temperature 98.1 F 08/21/24 13:19 Pulse Rate 66 08/21/24 18:17 Respiratory Rate 20 H 08/21/24 13:19 Blood Pressure 141/90 08/21/24 18:17 Pulse Oximetry 98 08/21/24 18:17 Oxygen Delivery Me thod Nasal Cannula 08/21/24 15:41 Oxygen Flow Rate 2 08/21/24 15:41 MDM - SOB/Dyspnea Medical Decision Making Patient given IV Bumex. Care signed out to Dr. Feldman at change of shift. See final notes for diagnosis and disposition. Patient care transitioned me at shift change. Awaiting to see if we have good diuresis. And we do. Assessment and plan: CHF exacerbation IV Bumex in the emergency room - Discharged home - Discussed plan with patient. Answered any questions. - Evaluation and treatment of this problem were appropriate in the emergency setting. Lab Data 08/21/24 14:02 08/21/24 14:02 Labs/Radiology: Radiology Impressions Chest X-Ray 08/21/24 13:15 IMPRESSION: Stable abnormal chest with cardiomegaly, pulmonary venous hypertension, and pleural effusions. Laboratory Results WBC 8.20 10^3/uL (3.29-11.43) 08/21/24 14:02 RBC 3.52 10^6/uL (3.85-5.65) L 08/21/24 14:02 Hgb 10.70 g/dL (11.27-16.99) L 08/21/24 14:02 Hct 35.3 % (36-47) L 08/21/24 14:02 MCV 100.3 fl (85-98) H 08/21/24 14:02 MCH 30.4 pg (27-33) 08/21/24 14:02 MCHC 30.3 g/dL (30-55) 08/21/24 14:02 RDW 13.7 % (12.1-15.1) 08/21/24 14:02 Plt Count 300 10^3/cmm (157-399) 08/21/24 14:02 MPV 8.3 fL (7.4-10.4) 08/21/24 14:02 Neut % (Auto) 69.2 % 08/21/24 14:02 Lymph % (Auto) 17.9 % 08/21/24 14:02 Parmer % (Auto) 8.3 % 08/21/24 14:02 Eos % (Auto) 3.4 % 08/21/24 14:02 Baso % (Auto) 0.6 % 08/21/24 14:02 Neut # (Auto) 5.67 10^3/uL (1.8-7.7) 08/21/24 14:02 Lymph # (Auto) 1.5 10^3/uL (0.8-4.8) 08/21/24 14:02 Parmer # (Auto) 0.7 10^3/uL (0.2-0.9) 08/21/24 14:02 Eos # (Auto) 0.3 10^3/uL (0.0-0.8) 08/21/24 14:02 Baso # (Auto) 0.1 10^3/uL (0.0-0.1) 08/21/24 14:02 Nucleated RBC % (auto) 0 % 08/21/24 14:02 Nucleated RBCs # 0.0 /100WBC 08/21/24 14:02 Sodium 140 mmol/L (136-145) 08/21/24 14:02 Potassium 4.4 mmol/L (3.5-5.1) 08/21/24 14:02 Chloride 98 mmol/L (98-107) 08/21/24 14:02 Carbon Dioxide 33 mmol/L (22-29) H 08/21/24 14:02 Anion Gap 13.4 (5-19) 08/21/24 14:02 BUN 15 mg/dL (8-23) 08/21/24 14:02 Creatinine 1.0 mg/dL (0.5-0.9) H 08/21/24 14:02 GFR Calculation Not Reportable 08/21/24 14:02 Glucose 183 mg/dL (65-115) H 08/21/24 14:02 Calculated Osmolality 296 mOsm/kg (285-295) H 08/21/24 14:02 Calcium 8.1 mg/dL (8.5-10.5) L 08/21/24 14:02 Total Bilirubin 0.2 mg/dL (0.15-1.2) 08/21/24 14:02 AST 16 U/L (0-32) 08/21/24 14:02 ALT 17 U/L (0-33) 08/21/24 14:02 Alkaline Phosphatase 109 U/L (35-105) H 08/21/24 14:02 C-Reactive Protein 22.5 mg/L (0.0-4.9) H 08/21/24 14:02 NT-Pro-B Natriuret Pep 4449 pg/mL (0-450) H 08/21/24 14:02 Total Protein 6.6 g/dL (6.6-8.7) 08/21/24 14:02 Albumin 3.2 g/dL (3.5-5.2) L 08/21/24 14:02 Globulin 3.4 g/dL (1.3-4.6) 08/21/24 14:02 Procalcitonin 0.09 ng/mL (0-0.5) 08/21/24 14:02 Discharge Plan Discharge Patient Disposition: Home Condition: Stable Prescriptions: New furosemide [Lasix] 40 mg tablet 40 mg PO QAM 5 Days Qty: 5 0RF No Action phenytoin sodium extended [Dilantin Extended] 100 mg capsule 300 mg PO BID fluticasone propionate 50 mcg/actuation spray,suspension 1 spray INTRANASAL DAILY PRN (Reason: allergies) gabapentin 300 mg capsule 300 mg PO BID esomeprazole magnesium [Nexium] 20 mg capsule,delayed release(DR/EC) 20 mg PO DAILY oxycodone-acetaminophen [Percocet] 10-325 mg tablet 1 tab PO Q4H PRN (Reason: Pain) desvenlafaxine succinate [Pristiq] 50 mg tablet extended release 24 hr 50 mg PO DAILY cetirizine [Zyrtec] 10 mg tablet 10 mg PO DAILY PRN (Reason: Allergy Symptoms) ergocalciferol (vitamin D2) [Vitamin D2] 1,250 mcg (50,000 unit) Capsule 1,250 mcg PO DAILY Rx Instructions: ON WEDNESDAYS potassium chloride 20 mEq Tablet Extended Release 20 meq PO DAILY metformin 500 mg tablet 500 mg PO BID Eliquis 5 mg tablet 5 mg PO BID levothyroxine 125 mcg tablet 125 mcg PO DAILY Trulicity 1.5 mg/0.5 mL pen injector 0.5 mg SUBCUT Q7D clopidogrel 75 mg tablet 75 mg PO DAILY Qty: 30 0RF aspirin 81 mg capsule 81 mg PO DAILY Qty: 30 0RF atorvastatin 40 mg tablet 40 mg PO DAILY Qty: 30 0RF bumetanide 2 mg tablet 2 mg PO DAILY Qty: 7 0RF furosemide 40 mg tablet 40 mg PO DAILY lisinopril 5 mg tablet 5 mg PO DAILY metoprolol succinate 25 mg tablet extended release 24 hr 25 mg PO DAILY azelastine 137 mcg (0.1 %) spray,non-aerosol 2 spray INTRANASAL BID Discharge Orders: Discharge ED (Routine); Ordered 08/21/24 Ordered By: Pearl Feldman Referrals: Adrienne March DO [Primary Care Provider] - Discharge Diet: Usual diet Discharge Activity: Resume usual activity Patient Instructions: Heart Failure (ED), Opioid Safety, Pain Management Activity Restrictions/Additional Instructions: Please take 80 mg of Lasix daily for the next 5 days. A prescription of an extra 40 mg of Lasix per day for the next 5 days has been called in. And follow with your primary in the next 3 to 5 days as well. Keep track of your weight Thank you for choosing [facility] for your healthcare needs today. Please realize this is an emergency room and that we are providing you with a medical screening exam and this may not be complete and all inclusive of all the testing and or work up that you may need to determine your ailment or severity of your illness. You have been screened and evaluated and felt safe for discharge. Health conditions do change or evolve sometimes and as such it is important that you follow up with your Primary Doctor to be re checked, 3-5 days is a general good time frame for follow up. 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 She had some worsening shortness of breath she says. Related Data Home Medications Medication Instructions Recorded Confirmed cetirizine 10 mg tablet (Zyrtec) 10 mg PO DAILY PRN Allergy Symptoms 11/13/19 08/21/24 desvenlafaxine succinate 50 mg 50 mg PO DAILY 11/13/19 08/21/24 tablet,extended release 24 hr (Pristiq) esomeprazole magnesium 20 mg 20 mg PO DAILY 11/13/19 08/21/24 capsule,delayed release (Nexium) fluticasone propionate 50 1 spray intranasal DAILY PRN 11/13/19 08/21/24 mcg/actuation nasal allergies spray,suspension gabapentin 300 mg capsule 300 mg PO BID 11/13/19 08/21/24 oxycodone-acetaminophen 10 mg-325 1 tab PO Q4H PRN Pain 11/13/19 08/21/24 mg tablet (Percocet) phenytoin sodium extended 100 mg 300 mg PO BID 11/13/19 08/21/24 capsule (Dilantin Extended) ergocalciferol (vitamin D2) 1,250 1,250 mcg PO DAILY 09/14/21 08/21/24 mcg (50,000 unit) capsule (Vitamin D2) potassium chloride 20 mEq 20 meq PO DAILY 09/14/21 08/21/24 tablet,extended release apixaban 5 mg tablet (Eliquis) 5 mg PO BID 08/08/24 08/21/24 dulaglutide 1.5 mg/0.5 mL 0.5 mg SUBCUT Q7D 08/08/24 08/21/24 subcutaneous pen injector (Trulicity) levothyroxine 125 mcg tablet 125 mcg PO DAILY 08/08/24 08/21/24 metformin 500 mg tablet 500 mg PO BID 08/08/24 08/21/24 azelastine 137 mcg (0.1 %) nasal 2 spray intranasal BID 08/21/24 08/21/24 spray furosemide 40 mg tablet 40 mg PO DAILY 08/21/24 08/21/24 lisinopril 5 mg tablet 5 mg PO DAILY 08/21/24 08/21/24 metoprolol succinate 25 mg 25 mg PO DAILY 08/21/24 08/21/24 tablet,extended release 24 hr Previous Rx's Medication Instructions Recorded aspirin 81 mg capsule 81 mg PO DAILY #30 caps 08/07/24 atorvastatin 40 mg tablet 40 mg PO DAILY #30 tabs 08/07/24 clopidogrel 75 mg tablet 75 mg PO DAILY #30 tabs 08/07/24 bumetanide 2 mg tablet 2 mg PO DAILY #7 tabs 08/19/24 furosemide 40 mg tablet (Lasix) 40 mg PO QAM 5 days #5 tabs 08/21/24 Allergies Allergy/AdvReac Type Severity Reaction Status Date / Time adhesive tape Allergy Unknown Verified 08/18/24 22:50 silver sulfadiazine Allergy ALGY-Rash Verified 08/18/24 22:50 [From Silvadene] Review of Systems 2 Narrative: Constitutional symptoms: Negative except as documented in HPI. Skin symptoms: Negative except as documented in HPI. Eye symptoms: Negative except as documented in HPI. ENMT symptoms: Negative except as documented in HPI. Respiratory symptoms: Negative except as documented in HPI. Cardiovascular symptoms: Negative except as documented in HPI. Gastrointestinal symptoms: Negative except as documented in HPI. Genitourinary symptoms: Negative except as documented in HPI. Musculoskeletal symptoms: Negative except as documented in HPI. Neurologic symptoms: Negative except as documented in HPI. Psychiatric symptoms: Negative except as documented in HPI. Endocrine symptoms: Negative except as documented in HPI. PFSH ED 2 PFSH: Medical History Chronic anticoagulation Diabetes Hypoxia Diastolic heart failure Exertional dyspnea COPD (chronic obstructive pulmonary disease) Seizure disorder Mild aortic stenosis Obesity Diabetes 1.5, managed as type 2 Hyperlipidemia HTN (hypertension) Hypothyroidism CVA (cerebral vascular accident) Surgical History Previous back surgery S/P hysterectomy Family History Father Stroke Hypertension Mother Hypertension CAD (coronary artery disease) Myocardial infarction Sister Hypertension CAD (coronary artery disease) Myocardial infarction Brother CAD (coronary artery disease) Myocardial infarction Denies family history of Colon cancer Pancreatic cancer Ovarian cancer Thyroid cancer Diabetes Breast cancer Cancer Uterine cancer Social History Smoking and tobacco/nicotine status: never used tobacco/nicotine Household members: spouse Marital status: Course 2 Vital Signs: Vital signs: Vital Signs Temperature 98.1 F 08/21/24 13:19 Pulse Rate 66 08/21/24 18:17 Respiratory Rate 20 H 08/21/24 13:19 Blood Pressure 141/90 08/21/24 18:17 Pulse Oximetry 98 08/21/24 18:17 Oxygen Delivery Me thod Nasal Cannula 08/21/24 15:41 Oxygen Flow Rate 2 08/21/24 15:41 MDM - SOB/Dyspnea Medical Decision Making Patient care transitioned me at shift change. Awaiting to see if we have good diuresis. And we do. Assessment and plan: CHF exacerbation IV Bumex in the emergency room - Discharged home - Discussed plan with patient. Answered any questions. - Evaluation and treatment of this problem were appropriate in the emergency setting. Lab Data 08/21/24 14:02 08/21/24 14:02 Labs/Radiology: Radiology Impressions Chest X-Ray 08/21/24 13:15 IMPRESSION: Stable abnormal chest with cardiomegaly, pulmonary venous hypertension, and pleural effusions. Laboratory Results WBC 8.20 10^3/uL (3.29-11.43) 08/21/24 14:02 RBC 3.52 10^6/uL (3.85-5.65) L 08/21/24 14:02 Hgb 10.70 g/dL (11.27-16.99) L 08/21/24 14:02 Hct 35.3 % (36-47) L 08/21/24 14:02 MCV 100.3 fl (85-98) H 08/21/24 14:02 MCH 30.4 pg (27-33) 08/21/24 14:02 MCHC 30.3 g/dL (30-55) 08/21/24 14:02 RDW 13.7 % (12.1-15.1) 08/21/24 14:02 Plt Count 300 10^3/cmm (157-399) 08/21/24 14:02 MPV 8.3 fL (7.4-10.4) 08/21/24 14:02 Neut % (Auto) 69.2 % 08/21/24 14:02 Lymph % (Auto) 17.9 % 08/21/24 14:02 Parmer % (Auto) 8.3 % 08/21/24 14:02 Eos % (Auto) 3.4 % 08/21/24 14:02 Baso % (Auto) 0.6 % 08/21/24 14:02 Neut # (Auto) 5.67 10^3/uL (1.8-7.7) 08/21/24 14:02 Lymph # (Auto) 1.5 10^3/uL (0.8-4.8) 08/21/24 14:02 Parmer # (Auto) 0.7 10^3/uL (0.2-0.9) 08/21/24 14:02 Eos # (Auto) 0.3 10^3/uL (0.0-0.8) 08/21/24 14:02 Baso # (Auto) 0.1 10^3/uL (0.0-0.1) 08/21/24 14:02 Nucleated RBC % (auto) 0 % 08/21/24 14:02 Nucleated RBCs # 0.0 /100WBC 08/21/24 14:02 Sodium 140 mmol/L (136-145) 08/21/24 14:02 Potassium 4.4 mmol/L (3.5-5.1) 08/21/24 14:02 Chloride 98 mmol/L (98-107) 08/21/24 14:02 Carbon Dioxide 33 mmol/L (22-29) H 08/21/24 14:02 Anion Gap 13.4 (5-19) 08/21/24 14:02 BUN 15 mg/dL (8-23) 08/21/24 14:02 Creatinine 1.0 mg/dL (0.5-0.9) H 08/21/24 14:02 GFR Calculation Not Reportable 08/21/24 14:02 Glucose 183 mg/dL (65-115) H 08/21/24 14:02 Calculated Osmolality 296 mOsm/kg (285-295) H 08/21/24 14:02 Calcium 8.1 mg/dL (8.5-10.5) L 08/21/24 14:02 Total Bilirubin 0.2 mg/dL (0.15-1.2) 08/21/24 14:02 AST 16 U/L (0-32) 08/21/24 14:02 ALT 17 U/L (0-33) 08/21/24 14:02 Alkaline Phosphatase 109 U/L (35-105) H 08/21/24 14:02 C-Reactive Protein 22.5 mg/L (0.0-4.9) H 08/21/24 14:02 NT-Pro-B Natriuret Pep 4449 pg/mL (0-450) H 08/21/24 14:02 Total Protein 6.6 g/dL (6.6-8.7) 08/21/24 14:02 Albumin 3.2 g/dL (3.5-5.2) L 08/21/24 14:02 Globulin 3.4 g/dL (1.3-4.6) 08/21/24 14:02 Procalcitonin 0.09 ng/mL (0-0.5) 08/21/24 14:02 All radiology interpretation(s) finalized by discharge Discharge Plan Discharge Patient Disposition: Home Condition: Stable Prescriptions: New furosemide [Lasix] 40 mg tablet 40 mg PO QAM 5 Days Qty: 5 0RF No Action phenytoin sodium extended [Dilantin Extended] 100 mg capsule 300 mg PO BID fluticasone propionate 50 mcg/actuation spray,suspension 1 spray INTRANASAL DAILY PRN (Reason: allergies) gabapentin 300 mg capsule 300 mg PO BID esomeprazole magnesium [Nexium] 20 mg capsule,delayed release(DR/EC) 20 mg PO DAILY oxycodone-acetaminophen [Percocet] 10-325 mg tablet 1 tab PO Q4H PRN (Reason: Pain) desvenlafaxine succinate [Pristiq] 50 mg tablet extended release 24 hr 50 mg PO DAILY cetirizine [Zyrtec] 10 mg tablet 10 mg PO DAILY PRN (Reason: Allergy Symptoms) ergocalciferol (vitamin D2) [Vitamin D2] 1,250 mcg (50,000 unit) Capsule 1,250 mcg PO DAILY Rx Instructions: ON WEDNESDAYS potassium chloride 20 mEq Tablet Extended Release 20 meq PO DAILY metformin 500 mg tablet 500 mg PO BID Eliquis 5 mg tablet 5 mg PO BID levothyroxine 125 mcg tablet 125 mcg PO DAILY Trulicity 1.5 mg/0.5 mL pen injector 0.5 mg SUBCUT Q7D clopidogrel 75 mg tablet 75 mg PO DAILY Qty: 30 0RF aspirin 81 mg capsule 81 mg PO DAILY Qty: 30 0RF atorvastatin 40 mg tablet 40 mg PO DAILY Qty: 30 0RF bumetanide 2 mg tablet 2 mg PO DAILY Qty: 7 0RF furosemide 40 mg tablet 40 mg PO DAILY lisinopril 5 mg tablet 5 mg PO DAILY metoprolol succinate 25 mg tablet extended release 24 hr 25 mg PO DAILY azelastine 137 mcg (0.1 %) spray,non-aerosol 2 spray INTRANASAL BID Discharge Orders: Discharge ED (Routine); Ordered 08/21/24 Ordered By: Pearl Feldman Referrals: Adrienne March DO [Primary Care Provider] - Discharge Diet: Usual diet Discharge Activity: Resume usual activity Patient Instructions: Heart Failure (ED), Opioid Safety, Pain Management Activity Restrictions/Additional Instructions: Please take 80 mg of Lasix daily for the next 5 days. A prescription of an extra 40 mg of Lasix per day for the next 5 days has been called in. And follow with your primary in the next 3 to 5 days as well. Keep track of your weight Thank you for choosing [facility] for your healthcare needs today. Please realize this is an emergency room and that we are providing you with a medical screening exam and this may not be complete and all inclusive of all the testing and or work up that you may need to determine your ailment or severity of your illness. You have been screened and evaluated and felt safe for discharge. Health conditions do change or evolve sometimes and as such it is important that you follow up with your Primary Doctor to be re checked, 3-5 days is a general good time frame for follow up. 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
[2024-08-21 14:45] LABS: NT Pro B Type Natriuretic Pept 4449 pg/mL (0-450); Procalcitonin 0.09 ng/mL (0-0.5)
[2024-08-21 14:59] LABS: Alanine Aminotransferase 17 U/L (0-33); Albumin Level 3.2 g/dL (3.5-5.2); Alkaline Phosphatase 109 U/L (35-105); Anion Gap 13.4 (5-19); Aspartate Amino Transferase 16 U/L (0-32); Blood Urea Nitrogen 15 mg/dL (8-23); C Reactive Protein 22.5 mg/L (0.0-4.9); Calcium 8.1 mg/dL (8.5-10.5); Carbon Dioxide 33 mmol/L (22-29); Chloride 98 mmol/L (98-107); Creatinine Clr Calc Pharmacy 54.2416; Globulin 3.4 g/dL (1.3-4.6); Glucose 183 mg/dL (65-115); Osmolality Calculated 296 mOsm/kg (285-295); Potassium 4.4 mmol/L (3.5-5.1); Sodium 140 mmol/L (136-145); Total Bilirubin 0.2 mg/dL (0.15-1.2); Total Protein 6.6 g/dL (6.6-8.7)
[2024-08-21 15:41] VITALS: BP 127/89; PULSE 57; O2SAT 92
[2024-08-21] MEDS: bumetanide 0.25 mg/mL SDV 4 mL 2 MG IVP (15:42)
[2024-08-21 17:15] VITALS: BP 141/90; PULSE 66; O2SAT 93
[2024-08-21 18:17] VITALS: BP 141/90; PULSE 66; O2SAT 98
== END 2024-08-21 18:19 | disposition home or self-care (01) ==
PROVIDERS: Family Medicine; Emergency Provider Emergency Medicine; PCP Family Medicine
DX: I11.0 Hypertensive heart disease with heart failure (principal); I50.30 Unspecified diastolic (congestive) heart failure; Z79.84 Long term (current) use of oral hypoglycemic drugs; Z79.02 Long term (current) use of antithrombotics/antiplatelets; Z79.82 Long term (current) use of aspirin; J44.9 Chronic obstructive pulmonary disease, unspecified; E13.9 Other specified diabetes mellitus without complications; E78.5 Hyperlipidemia, unspecified; Z86.73 Personal history of transient ischemic attack (TIA), and cerebral infarction without residual deficits
CPT/HCPCS: 36415; 71045; 80053; 83880; 84145; 85025; 86140; 93005; 96374; 99285; J3490

== ENCOUNTER 2024-08-26 21:27 | Emergency (ER) | payer MEDICARE, MEDICAID, SELFPAY ==
[2024-08-26 21:29] VITALS: BP 126/57; PULSE 86; RESP 20; TEMP 36.6; O2SAT 96; BMI 40.4
[2024-08-26 22:58] LABS: Bilirubin Urine Negative (Negative); Blood Urine Trace (Negative); Glucose Urine UA Negative (Normal); Ketones Urine Negative (Negative); Leukocyte Esterase Urine 3+ (Negative); Nitrate Urine Negative (Negative); Protein Urine Negative (Negative); Specific Gravity, Urine 1.007 (1.005-1.030); Urine Appearance Clear (CLEAR); Urine Color Yellow (Yellow); Urobilinogen Urine 0.2 mg/dL (Negative); pH Urine 7.5 (5-7)
[2024-08-26 23:14] LABS: Add Urine Culture? Yes; Add Urine Microscopic? YES; Bacteria Urine 1+ /hpf; RBC Urine 0-4 /hpf (0-2); Squamous Epithelial Cell Urine 0-4 /hpf (0-5); WBC Urine >100 /hpf (0-5)
--- NOTE | 2024-08-26 23:53 | W.ED.ABDPA2 ---
HPI - Abdominal Pain General: Chief Complaint: Abdominal Pain Stated Complaint: bladder pain when urinating Time Seen by Provider: 08/26/24 21:42 History of Present Illness: Tiffany Gaffney is a 78-year-old chronically appearing female that presents to the emergency department with complaints of dysuria and concerns for possible bladder prolapse. Patient notes onset of symptoms in the last 24 hours. He has had a recent admission and is also been seen in the emergency department twice in the last 2 weeks. Patient is in no acute distress. She was able to provide a urine specimen. Currently pending She states that when she bears down she feels like something is coming out of her. Associated Symptoms: Reports dysuria; Denies bloating, chills, constipation, GI cramping, diarrhea, fever(s), hematochezia, hematuria, nausea and vomiting Related Data Home Medications Medication Instructions Recorded Confirmed cetirizine 10 mg tablet (Zyrtec) 10 mg PO DAILY PRN Allergy Symptoms 11/13/19 08/21/24 desvenlafaxine succinate 50 mg 50 mg PO DAILY 11/13/19 08/21/24 tablet,extended release 24 hr (Pristiq) esomeprazole magnesium 20 mg 20 mg PO DAILY 11/13/19 08/21/24 capsule,delayed release (Nexium) fluticasone propionate 50 1 spray intranasal DAILY PRN 11/13/19 08/21/24 mcg/actuation nasal allergies spray,suspension gabapentin 300 mg capsule 300 mg PO BID 11/13/19 08/21/24 oxycodone-acetaminophen 10 mg-325 1 tab PO Q4H PRN Pain 11/13/19 08/21/24 mg tablet (Percocet) phenytoin sodium extended 100 mg 300 mg PO BID 11/13/19 08/21/24 capsule (Dilantin Extended) ergocalciferol (vitamin D2) 1,250 1,250 mcg PO DAILY 09/14/21 08/21/24 mcg (50,000 unit) capsule (Vitamin D2) potassium chloride 20 mEq 20 meq PO DAILY 09/14/21 08/21/24 tablet,extended release apixaban 5 mg tablet (Eliquis) 5 mg PO BID 08/08/24 08/21/24 dulaglutide 1.5 mg/0.5 mL 0.5 mg SUBCUT Q7D 08/08/24 08/21/24 subcutaneous pen injector (Trisiity) levothyroxine 125 mcg tablet 125 mcg PO DAILY 08/08/24 08/21/24 metformin 500 mg tablet 500 mg PO BID 08/08/24 08/21/24 azelastine 137 mcg (0.1 %) nasal 2 spray intranasal BID 08/21/24 08/21/24 spray furosemide 40 mg tablet 40 mg PO DAILY 08/21/24 08/21/24 lisinopril 5 mg tablet 5 mg PO DAILY 08/21/24 08/21/24 metoprolol succinate 25 mg 25 mg PO DAILY 08/21/24 08/21/24 tablet,extended release 24 hr Previous Rx's Medication Instructions Recorded aspirin 81 mg capsule 81 mg PO DAILY #30 caps 08/07/24 atorvastatin 40 mg tablet 40 mg PO DAILY #30 tabs 08/07/24 clopidogrel 75 mg tablet 75 mg PO DAILY #30 tabs 08/07/24 bumetanide 2 mg tablet 2 mg PO DAILY #7 tabs 08/19/24 cephalexin 500 mg capsule 500 mg PO Q6H 10 days #40 caps 08/27/24 Allergies Allergy/AdvReac Type Severity Reaction Status Date / Time adhesive tape Allergy Unknown Verified 08/26/24 21:36 silver sulfadiazine Allergy ALGY-Rash Verified 08/26/24 21:36 [From [facility]] Review of Systems General: Reports: 10 or more systems reviewed and unremarkable except in HPI and below Const: Denies: fever(s), chills, change in appetite, change in weight, fatigue or malaise Card: Denies: chest pain, palpitations, irregular heart rhythm, edema, dyspnea on exertion, orthopnea or leg pain with exertion Resp: Denies: dyspnea, productive cough, non-productive cough, wheezing, stridor or chest congestion GI: Denies: abdominal pain, nausea, vomiting, dysphagia, diarrhea, constipation, bloating, GI cramping or hematochezia : Reports: difficulty voiding, dysuria, urinary frequency, urinary urgency, urinary hesitancy, vaginal dryness and prolapse symptoms; Denies: flank pain, oliguria or hematuria Musc: Denies: neck pain, back pain, extremity pain, joint pain, joint swelling, joint redness, joint warmth or muscle weakness Skin/Breast: Denies: rash, pruritus, erythema, photosensitivity or new lesions Neuro: Denies: headache(s), numbness in extremities, weakness in extremities, sensory changes, lack of coordination, difficulty walking, frequent falls, dizziness, confusion, Slurred speech present, difficulty communicating thoughts, seizure-like activity or involuntary movements Endo: Denies: polyuria, polydipsia or tired all the time Vipin/Lymph: Denies: easy bruising or easy bleeding PFSH ED PFSH: Medical History Chronic anticoagulation Diabetes Hypoxia Diastolic heart failure Exertional dyspnea COPD (chronic obstructive pulmonary disease) Seizure disorder Mild aortic stenosis Obesity Diabetes 1.5, managed as type 2 Hyperlipidemia HTN (hypertension) Hypothyroidism CVA (cerebral vascular accident) Surgical History Previous back surgery S/P hysterectomy Family History Father Stroke Hypertension Mother Hypertension CAD (coronary artery disease) Myocardial infarction Sister Hypertension CAD (coronary artery disease) Myocardial infarction Brother CAD (coronary artery disease) Myocardial infarction Denies family history of Colon cancer Pancreatic cancer Ovarian cancer Thyroid cancer Diabetes Breast cancer Cancer Uterine cancer Social History Smoking and tobacco/nicotine status: never used tobacco/nicotine Household members: spouse Marital status: Physical Exam Const: COMMON NORMALS: no acute distress, patient oriented x3 and alert GENERAL APPEARANCE: cooperative ORIENTATION/CONSCIOUSNESS: Yes awake, Yes oriented to person, Yes oriented to place and Yes oriented to time HENMT: COMMON NORMALS: normocephalic and atraumatic HEAD & SCALP: normocephalic and atraumatic FACE & SINUS: normal facial exam MOUTH: Normal oral and palatal mucosa present THROAT: posterior oropharynx normal Eye: COMMON NORMALS: Equal, round and reactive pupils present, EOMs intact bilaterally, conjunctivae normal and no scleral icterus GENERAL EYE: appearance normal, both eyes and all related structures ALIGNMENT: Yes alignment normal PERIORBITAL: periorbital findings normal CONJUNCTIVA: Yes conjunctivae normal PUPIL: Yes Equal, round and reactive pupils present Neck/C-Spine: COMMON NORMALS: full ROM GENERAL: Yes normal visual inspection Lymph: LYMPHATIC: no lymphadenopathy noted Chest: COMMONS NORMALS: normal inspection of the chest Breast/axilla inspection: Yes no chest deformity, asymmetry, normal contours, no nodules, masses, tenderness Resp: COMMON NORMALS: normal respiratory effort, No retractions and No use of accessory muscles EFFORT & INSPECTION: Yes able to speak in complete sentences and Yes symmetric chest movement Cardio: COMMON NORMALS: regular rate, regular rhythm and Peripheral pulses 2+ throughout RATE: regular rate RHYTHM: regular rhythm PERIPHERAL PULSES: Peripheral pulses 2+ throughout GI: COMMON NORMALS: Normal to inspection, nondistended, normoactive bowel sounds present, Soft to palpation, non-tender and No hepatosplenomegaly present INSPECTION: Yes normal to inspection AUSCULTATION: Yes normoactive bowel sounds PALPATION: Yes Soft to palpation and Yes No hepatosplenomegaly present RECTAL EXAM: deferred : COMMON NORMALS: Yes no CVA tenderness (But has chronic back pain) BLADDER/KIDNEY EXAM: Yes bladder normal to palpation (Difficult to assess due to morbid obesity.) and Yes no CVA tenderness (But has chronic back pain) EXTERNAL FEMALE EXAM: Yes erythema, Yes externally tender and Yes external swelling BIMANUAL EXAM - VAGINA & UTERUS: Yes bladder normal to palpation (Difficult to assess due to morbid obesity.) OTHER: Home introitus and labia all excoriated. No evidence of uterine or bladder prolapse Back/Pelvis: COMMON NORMALS: no CVA tenderness (But has chronic back pain) Extremity: COMMON NORMALS: normal to inspection GENERAL: Yes normal exam except as noted Neuro: COMMON NORMALS: patient oriented x3 SENSORIUM/ORIENTATION: Yes alert, Yes oriented to person, Yes oriented to place and Yes oriented to time CRANIAL NERVES: Yes CN normal except as noted Psych: COMMON NORMALS: mental status grossly normal, Normal thought process present, cooperative, activity/motor behavior normal, denies homicidal ideation and denies suicidal ideation THOUGHT PROCESS: Normal thought process present Skin: COMMON NORMALS: no rashes or lesions noted, no wounds and turgor normal GENERAL SKIN EXAM: no rashes or lesions noted and turgor normal Course Vital Signs: Vital signs: Vital Signs Temperature 97.8 F 08/26/24 21:29 Pulse Rate 86 08/26/24 21:29 Respiratory Rate 20 H 08/26/24 21:29 Blood Pressure 126/57 08/26/24 21:29 Pulse Oximetry 96 08/26/24 21:29 Oxygen Delivery Me thod Nasal Cannula 08/26/24 21:29 Oxygen Flow Rate 2 08/26/24 21:29 MDM - Abdominal Pain Medical Decision Making Patient was evaluated in the emergency department today for dysuria. Differential diagnoses include UTI, kidney stone, aseptic cystitis, vaginal prolapse. Patient underwent a pelvic exam with a customer program manager present. No evidence of intravaginal prolapse. We did obtain a urine specimen which revealed bacteria, nitrates, and white blood cells greater than 100. I treated her with Keflex here in the emergency department. Going to discharge her home with Keflex. Lab Data Labs/Radiology: Laboratory Results Urine Color Yellow (Yellow) 08/26/24 20:45 Urine Appearance Clear (CLEAR) 08/26/24 20:45 Urine pH 7.5 (5-7) 08/26/24 20:45 Ur Specific [place] 1.007 (1.005-1.030) 08/26/24 20:45 Urine Protein Negative (Negative) 08/26/24 20:45 Urine Glucose (UA) Negative (Normal) 08/26/24 20:45 Urine Ketones Negative (Negative) 08/26/24 20:45 Urine Blood Trace (Negative) A 08/26/24 20:45 Urine Nitrate Negative (Negative) 08/26/24 20:45 Urine Bilirubin Negative (Negative) 08/26/24 20:45 Urine Urobilinogen 0.2 mg/dL (Negative) 08/26/24 20:45 Ur Leukocyte Esterase 3+ (Negative) A 08/26/24 20:45 Urine RBC 0-4 /hpf (0-2) H 08/26/24 20:45 Urine WBC >100 /hpf (0-5) H 08/26/24 20:45 Ur Squamous Epith Cells 0-4 /hpf (0-5) H 08/26/24 20:45 Amorphous Sediment Not Reportable 08/26/24 20:45 Urine Bacteria 1+ /hpf (NONE) H 08/26/24 20:45 No radiology studies performed this visit Discharge Plan Discharge Patient Disposition: Home Clinical Impression: Urinary tract infection Condition: Stable Prescriptions: New cephalexin 500 mg capsule 500 mg PO Q6H 10 Days Qty: 40 0RF No Action phenytoin sodium extended [Dilantin Extended] 100 mg capsule 300 mg PO BID fluticasone propionate 50 mcg/actuation spray,suspension 1 spray INTRANASAL DAILY PRN (Reason: allergies) gabapentin 300 mg capsule 300 mg PO BID esomeprazole magnesium [Nexium] 20 mg capsule,delayed release(DR/EC) 20 mg PO DAILY oxycodone-acetaminophen [Percocet] 10-325 mg tablet 1 tab PO Q4H PRN (Reason: Pain) desvenlafaxine succinate [Pristiq] 50 mg tablet extended release 24 hr 50 mg PO DAILY cetirizine [Zyrtec] 10 mg tablet 10 mg PO DAILY PRN (Reason: Allergy Symptoms) ergocalciferol (vitamin D2) [Vitamin D2] 1,250 mcg (50,000 unit) Capsule 1,250 mcg PO DAILY Rx Instructions: ON WEDNESDAYS potassium chloride 20 mEq Tablet Extended Release 20 meq PO DAILY metformin 500 mg tablet 500 mg PO BID Eliquis 5 mg tablet 5 mg PO BID levothyroxine 125 mcg tablet 125 mcg PO DAILY Trulicity 1.5 mg/0.5 mL pen injector 0.5 mg SUBCUT Q7D clopidogrel 75 mg tablet 75 mg PO DAILY Qty: 30 0RF aspirin 81 mg capsule 81 mg PO DAILY Qty: 30 0RF atorvastatin 40 mg tablet 40 mg PO DAILY Qty: 30 0RF bumetanide 2 mg tablet 2 mg PO DAILY Qty: 7 0RF furosemide 40 mg tablet 40 mg PO DAILY lisinopril 5 mg tablet 5 mg PO DAILY metoprolol succinate 25 mg tablet extended release 24 hr 25 mg PO DAILY azelastine 137 mcg (0.1 %) spray,non-aerosol 2 spray INTRANASAL BID Discharge Orders: Discharge ED (Routine); Ordered 08/27/24 Ordered By: [place]ina Beth [facility] [place] Referrals: Adrienne March DO [Primary Care Provider] - Patient Instructions: Urinary Tract Infection in Women (ED) Activity Restrictions/Additional Instructions: I have consulted the case management to help set up a gynecology referral to evaluate for vaginal prolapse. I have sent her prescription to the pharmacy Keep follow-up with your appointments and take your medications as prescribed Please return to the emergency department for new concerning or worsening symptoms Coding Level of Care Code ED Auto Electrical Technician for Valentin Mace
[2024-08-27] MEDS: cephALEXin 500 mg Capsule PO (00:22)
--- NOTE | 2024-08-28 07:55 | DCPLANNER ---
messaged [facility] for er f/u
== END 2024-08-27 00:23 | disposition home or self-care (01) ==
PROVIDERS: Emergency Provider Nurse Practitioner; PCP Family Medicine
DX: N39.0 Urinary tract infection, site not specified (principal); Z79.84 Long term (current) use of oral hypoglycemic drugs; Z79.01 Long term (current) use of anticoagulants; Z79.02 Long term (current) use of antithrombotics/antiplatelets; Z79.82 Long term (current) use of aspirin; E13.9 Other specified diabetes mellitus without complications; I11.0 Hypertensive heart disease with heart failure; I50.30 Unspecified diastolic (congestive) heart failure; Z86.73 Personal history of transient ischemic attack (TIA), and cerebral infarction without residual deficits
CPT/HCPCS: 81001; 87077; 87086; 87186; 99283

== ENCOUNTER 2024-12-11 16:13 | Inpatient (IN) | payer MEDICARE, MEDICAID, SELFPAY ==
[2024-12-11] VITALS (20 sets, daily range): BP systolic 97–155; BP diastolic 41–88; PULSE 49–71; RESP 16–20; TEMP 36.7; O2SAT 90–100
--- NOTE | 2024-12-11 16:22 | XRR_ITS ---
PROCEDURE INFORMATION: Exam: XR Chest Exam date and time: 12/11/2024 4:36 PM Age: 79 years old Clinical indication: Cough and dyspnea; Additional info: Dyspnea/cough TECHNIQUE: Imaging protocol: Radiologic exam of the chest. Views: 1 view. COMPARISON: CR XR chest 1V portable [id number] 08/21/2024 1:29 PM FINDINGS: Lungs: Central pulmonary vasculature congestion. No lobar consolidation. Pleural spaces: Unremarkable. No pleural effusion. No pneumothorax. Heart/Mediastinum: Cardiomegaly. Bones/joints: Unremarkable. XR/XR chest 1V portable [id number] IMPRESSION: As above.
--- NOTE | 2024-12-11 16:22 | ECG_ITS ---
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 Measurements Intervals [place] Rate: 70 P: -65 ND: 108 QRS: 232 QRSD: 151 T: -28 QT: 442 QTc: 480 Interpretive Statements Possible JUNCTIONAL RHYTHM RIGHT AXIS DEVIATION [QRS AXIS > 100] RIGHT BUNDLE BRANCH BLOCK [120+ ms QRS DURATION, UPRIGHT V1, 40+ ms S IN I/aVL/V4/V5/V6].ANTEROSEPTAL MYOCARDIAL INFARCTION , OF INDETERMINATE AGE [40+ ms Q WAVE IN V1-V4] MODERATE T-WAVE ABNORMALITY, CONSIDER LATERAL ISCHEMIA [-0.1+ mV T-WAVE IN I/aVL/V5/V6] Compared to ECG 08/21/2024 13:38:33 Junctional rhythm now present. Right-axis deviation now present T-wave abnormality now present.Possible ischemia now present Sinus bradycardia no longer present. Myocardial infarct finding still present Electronically Signed On 12-11-2024 20:58:55 CDT by Stanley Miller M.D. [id number]
--- NOTE | 2024-12-11 16:25 | W.ED.WEAKNES ---
HPI - Weakness General: Chief complaint: Weakness Stated complaint: weakness, sob Time Seen by Provider: 12/11/24 16:21 History of Present Illness: 79-year-old female presents to the emergency room with mild confusion and disorientation increasing shortness of breath. Is normally on 2 L by nasal cannula has had to increase to 3 to maintain her oxygen sats decrease her sense of shortness of breath she had minimally productive cough. She has not had any fever that she has measured. She has had some nausea. She has increasing orthopnea and exertional dyspnea. She denies any hemoptysis no chest pain. history of COPD and CHF Associated symptoms: Denies chest pain, chills, dysuria or fever(s) Review of Systems Const: Denies: fever(s) or chills Card: Reports: edema, swelling of feet/ankles, dyspnea on exertion and orthopnea; Denies: chest pain Resp: Reports: dyspnea, non-productive cough, wheezing and chest congestion GI: Denies: abdominal pain : Denies: dysuria, urinary frequency or urinary urgency Musc: Denies: neck pain or back pain Skin/Breast: Denies: rash PFSH ED PFSH: Medical History Chronic anticoagulation Diabetes Hypoxia Diastolic heart failure Exertional dyspnea COPD (chronic obstructive pulmonary disease) Seizure disorder Mild aortic stenosis Obesity Diabetes 1.5, managed as type 2 Hyperlipidemia HTN (hypertension) Hypothyroidism CVA (cerebral vascular accident) Surgical History Previous back surgery S/P hysterectomy Family History Father Stroke Hypertension Mother Hypertension CAD (coronary artery disease) Myocardial infarction Sister Hypertension CAD (coronary artery disease) Myocardial infarction Brother CAD (coronary artery disease) Myocardial infarction Denies family history of Colon cancer Pancreatic cancer Ovarian cancer Thyroid cancer Diabetes Breast cancer Cancer Uterine cancer Social History Smoking and tobacco/nicotine status: never used tobacco/nicotine Household members: spouse Marital status: Physical Exam Const: GENERAL APPEARANCE: cooperative ORIENTATION/CONSCIOUSNESS: Yes awake and Yes oriented to person; not oriented to place and not oriented to time HENMT: COMMON NORMALS: normocephalic, atraumatic and hearing grossly normal bilaterally HEAD & SCALP: normocephalic and atraumatic Resp: AUSCULTATION: rhonchi and wheezes Cardio: COMMON NORMALS: regular rate, regular rhythm and No murmurs present (Cardio) RATE: regular rate RHYTHM: regular rhythm GI: COMMON NORMALS: Soft to palpation and No hepatosplenomegaly present AUSCULTATION: Yes normoactive bowel sounds PALPATION: Yes Soft to palpation, No Tenderness to palpation present (GI), No Guarding due to palpation present (GI) and Yes No hepatosplenomegaly present Extremity: COMMON NORMALS: normal to inspection, capillary refill normal and no calf tenderness GENERAL: Yes edema Neuro: SENSORIUM/ORIENTATION: Yes oriented to person, No oriented to place and No oriented to time Skin: COMMON NORMALS: no rashes or lesions noted GENERAL SKIN EXAM: no rashes or lesions noted Course Vital Signs: Vital signs: Vital Signs Temperature 98.0 F 12/11/24 16:16 Pulse Rate 48 L 12/12/24 03:57 Respiratory Rate 18 12/12/24 02:01 Blood Pressure 124/52 12/12/24 02:01 Pulse Oximetry 98 12/12/24 03:57 Oxygen Delivery Me thod BiPAP 12/11/24 21:10 Oxygen Flow Rate 3 12/11/24 18:28 Fraction of Inspir ed Oxygen 30 12/12/24 03:57 MDM - Weakness Medical Decision Making Acute hypercapnic and hypoxic respiratory failure brought on by exacerbation of COPD CHF and some mild pneumonia on chest x-ray. Antibiotics have been started. Did not give significant amount of fluids because of patient's congestive heart failure this would actually be detrimental to him worsen the condition significantly. pCO2 elevated at 72. Creatinine slightly elevated as well. Lactic acid was in the normal range of 1.6. Troponins trended flat. Discussed with hospitalist orders written Lab Data 12/12/24 04:10 12/11/24 16:30 Radiology Impressions Chest X-Ray 12/11/24 16:22 IMPRESSION: As above. Laboratory Results WBC 12.76 10^3/uL (3.29-11.43) H 12/11/24 16:30 RBC 3.57 10^6/uL (3.85-5.65) L 12/11/24 16:30 Hgb 10.90 g/dL (11.27-16.99) L 12/11/24 16:30 Hct 35.7 % (36-47) L 12/11/24 16:30 MCV 100.0 fl (85-98) H 12/11/24 16:30 MCH 30.5 pg (27-33) 12/11/24 16:30 MCHC 30.5 g/dL (30-55) 12/11/24 16:30 RDW 13.8 % (12.1-15.1) 12/11/24 16:30 Plt Count 240 10^3/cmm (157-399) 12/11/24 16:30 MPV 8.8 fL (7.4-10.4) 12/11/24 16:30 Neut % (Auto) 73.0 % 12/11/24 16:30 Lymph % (Auto) 11.4 % 12/11/24 16:30 Gregg % (Auto) 11.7 % 12/11/24 16:30 Eos % (Auto) 3.1 % 12/11/24 16:30 Baso % (Auto) 0.3 % 12/11/24 16:30 Neut # (Auto) 9.33 10^3/uL (1.8-7.7) H 12/11/24 16:30 Lymph # (Auto) 1.5 10^3/uL (0.8-4.8) 12/11/24 16:30 Gregg # (Auto) 1.5 10^3/uL (0.2-0.9) H 12/11/24 16:30 Eos # (Auto) 0.4 10^3/uL (0.0-0.8) 12/11/24 16:30 Baso # (Auto) 0.0 10^3/uL (0.0-0.1) 12/11/24 16: Nucleated RBC % (auto) 0 % 12/11/24 16: Nucleated RBCs # 0.0 /100WBC 12/11/24 16:30 Specimen Type Arterial 12/11/24 17:09 Sample Site Brachial, right 12/11/24 17:09 ABG pH 7.31 (7.35-7.45) L 12/11/24 17:09 ABG pCO2 71.8 mmHg (35-45) H* 12/11/24 17:09 ABG pO2 58.4 mmHg (80.0-100.0) L 12/11/24 17:09 ABG PO2/FiO2 Ratio 182 12/11/24 17:09 ABG HCO3 35.8 mmol/L (22-26) H 12/11/24 17:09 ABG O2 Saturation 88.6 12/11/24 17:09 ABG Base Excess 7.4 mmol/L (-2.0-2.0) H 12/11/24 17:09 Eliazar Test N/a 12/11/24 17:09 A-a O2 Gradient 10.8 mmHg (5-10) H 12/11/24 17:09 Hematocrit 34.6 % (37-47) L 12/11/24 17:09 Hgb O2 Saturation 86.8 % (95-100) L 12/11/24 17:09 Carboxyhemoglobin 1.2 %THgb (0.4-20.1) 12/11/24 17:09 Methemoglobin 0.8 % (0.4-1.5) 12/11/24 17:09 Total Hemoglobin 11.3 g/dL (12-16) L 12/11/24 17:09 Sodium 142.0 mmol/L (131-143) 12/11/24 17:09 Potassium 4.0 mmol/L (3.5-5.0) 12/11/24 17:09 Glucose 135.0 mg/dL (70-115) H 12/11/24 17:09 Ionized Calcium 1.2 mmol/L (1.1-1.4) 12/11/24 17:09 O2 Delivery Device Nc 12/11/24 17:09 O2 Liters/Min 3.0 % 12/11/24 17:09 FiO2 32.0 % 12/11/24 17:09 [employer] ID Amh 12/11/24 17:09 Sodium 142 mmol/L (136-145) 12/11/24 16:30 Potassium 4.2 mmol/L (3.5-5.1) 12/11/24 16:30 Chloride 100 mmol/L (98-107) 12/11/24 16:30 Carbon Dioxide 33 mmol/L (22-29) H 12/11/24 16:30 Anion Gap 13.2 (5-19) 12/11/24 16:30 BUN 23 mg/dL (8-23) 12/11/24 16:30 Creatinine 1.1 mg/dL (0.5-0.9) H 12/11/24 16:30 GFR Calculation Not Reportable 12/11/24 16:30 Glucose 132 mg/dL (65-115) H 12/11/24 16:30 Calculated Osmolality 300 mOsm/kg (285-295) H 12/11/24 16:30 Lactic Acid 1.6 mmol/L (0.5-2.2) 12/11/24 16:50 Calcium 8.6 mg/dL (8.5-10.5) 12/11/24 16:30 Total Bilirubin 0.2 mg/dL (0.15-1.2) 12/11/24 16:30 AST 18 U/L (0-32) 12/11/24 16:30 ALT 21 U/L (0-33) 12/11/24 16:30 Alkaline Phosphatase 133 U/L (35-105) H 12/11/24 16:30 Troponin T Baseline 20 ng/L (0-10) H 12/11/24 16:30 Troponin T 120 Minute 20.25 ng/L (0-10) H 12/11/24 18:33 Delta Troponin T 0.25 ABS# (0-10) 12/11/24 18:33 C-Reactive Protein 54.0 mg/L (0.0-4.9) H 12/11/24 16:50 NT-Pro-B Natriuret Pep 3651 pg/mL (0-450) H 12/11/24 16:50 Total Protein 6.9 g/dL (6.6-8.7) 12/11/24 16:30 Albumin 3.8 g/dL (3.5-5.2) 12/11/24 16:30 Globulin 3.1 g/dL (1.3-4.6) 12/11/24 16:30 Procalcitonin 0.09 ng/mL (0-0.5) 12/11/24 16:50 TSH 3.25 uIU/mL (0.27-4.20) 12/11/24 16:50 Urine Color Yellow (Yellow) 12/11/24 16:42 Urine Appearance Clear (CLEAR) 12/11/24 16:42 Urine pH 5.0 (5-7) 12/11/24 16:42 Ur Specific [place] 1.006 (1.005-1.030) 12/11/24 16:42 Urine Protein Negative (Negative) 12/11/24 16:42 Urine Glucose (UA) Negative (Normal) 12/11/24 16:42 Urine Ketones Negative (Negative) 12/11/24 16:42 Urine Blood Negative (Negative) 12/11/24 16:42 Urine Nitrate Negative (Negative) 12/11/24 16:42 Urine Bilirubin Negative (Negative) 12/11/24 16:42 Urine Urobilinogen 0.2 mg/dL (Negative) 12/11/24 16:42 Ur Leukocyte Esterase Negative (Negative) 12/11/24 16:42 Urine RBC 0-2 /hpf (0-2) 12/11/24 16:42 Urine WBC 0-5 /hpf (0-5) 12/11/24 16:42 Ur Squamous Epith Cells 0-5 /hpf (0-5) 12/11/24 16:42 Amorphous Sediment Not Reportable 12/11/24 16:42 Urine Bacteria None seen /hpf (NONE) 12/11/24 16:42 Hyaline Casts 2.05 /lpf 12/11/24 16:42 Influenza A (PCR) Negative (Negative) 12/11/24 17:00 Influenza Type B (PCR) Negative (Negative) 12/11/24 17:00 RSV (PCR) Negative (Negative) 12/11/24 17:00 SARS-CoV-2 (PCR) Negative (Negative) 12/11/24 17:00 Group A Strep Rapid Negative (Negative) 12/11/24 17:00 All radiology interpretation(s) finalized by discharge Discharge Plan Discharge Patient Disposition: Admitted As Inpatient Admit Provider: Gildardo Bryan Clinical Impression: Acute on chronic respiratory failure with hypoxia and hypercapnia, Acute encephalopathy, CHF exacerbation, Pneumonia Condition: Stable Coding Level of Care Code ED Computational Biologist for Chg Fwd Related Data Home Medications ?Medication ?Instructions ?Recorded ?Confirmed cetirizine 10 mg tablet (Zyrtec) 10 mg PO DAILY PRN Allergy Symptoms 11/13/19 10/03/24 desvenlafaxine succinate 50 mg 50 mg PO DAILY 11/13/19 10/03/24 tablet,extended release 24 hr (Pristiq) esomeprazole magnesium 20 mg 20 mg PO DAILY 11/13/19 10/03/24 capsule,delayed release (Nexium) fluticasone propionate 50 1 spray intranasal DAILY PRN 11/13/19 10/03/24 mcg/actuation nasal allergies spray,suspension gabapentin 300 mg capsule 300 mg PO BID 11/13/19 10/03/24 oxycodone-acetaminophen 10 mg-325 1 tab PO Q4H PRN Pain 11/13/19 10/03/24 mg tablet (Percocet) phenytoin sodium extended 100 mg 300 mg PO BID 11/13/19 10/03/24 capsule (Dilantin Extended) ergocalciferol (vitamin D2) 1,250 1,250 mcg PO DAILY 09/14/21 10/03/24 mcg (50,000 unit) capsule (Vitamin D2) potassium chloride 20 mEq 20 meq PO DAILY 09/14/21 10/03/24 tablet,extended release apixaban 5 mg tablet (Eliquis) 5 mg PO BID 08/08/24 10/03/24 dulaglutide 1.5 mg/0.5 mL 0.5 mg SUBCUT Q7D 08/08/24 10/03/24 subcutaneous pen injector (Trulicity) levothyroxine 125 mcg tablet 125 mcg PO DAILY 08/08/24 10/03/24 metformin 500 mg tablet 500 mg PO BID 08/08/24 10/03/24 azelastine 137 mcg (0.1 %) nasal 2 spray intranasal BID 08/21/24 10/03/24 spray furosemide 40 mg tablet 40 mg PO DAILY 08/21/24 10/03/24 lisinopril 5 mg tablet 5 mg PO DAILY 08/21/24 10/03/24 metoprolol succinate 25 mg 25 mg PO DAILY 08/21/24 10/03/24 tablet,extended release 24 hr Previous Rx's ?Medication ?Instructions ?Recorded aspirin 81 mg capsule 81 mg PO DAILY #30 caps 08/07/24 atorvastatin 40 mg tablet 40 mg PO DAILY #30 tabs 08/07/24 clopidogrel 75 mg tablet 75 mg PO DAILY #30 tabs 08/07/24 bumetanide 2 mg tablet 2 mg PO DAILY #7 tabs 08/19/24 Allergies Allergy/AdvReac Type Severity Reaction Status Date / Time adhesive tape Allergy Unknown Verified 10/03/24 11:15 silver sulfadiazine (From Allergy ALGY-Rash Verified 10/03/24 11:15 Silvadene)
[2024-12-11 16:36] LABS: Basophils % 0.3 %; Eosinophils # 0.4 10^3/uL (0.0-0.8); Eosinophils % 3.1 %; Hematocrit 35.7 % (36-47); Lymphocytes # 1.5 10^3/uL (0.8-4.8); Lymphocytes % 11.4 %; Mean Corpuscular HGB Conc 30.5 g/dL (30-55); Mean Corpuscular Hemoglobin 30.5 pg (27-33); Mean Platelet Volume 8.8 fL (7.4-10.4); Monocytes # 1.5 10^3/uL (0.2-0.9); Monocytes % 11.7 %; Neutrophils # 9.33 10^3/uL (1.8-7.7); Nucleated Red Blood Cells % 0 %; Platelet Count 240 10^3/cmm (157-399); Red Blood Count 3.57 10^6/uL (3.85-5.65); Red Cell Distribution Width 13.8 % (12.1-15.1); White Blood Count 12.76 10^3/uL (3.29-11.43)
[2024-12-11 16:59] LABS: Bilirubin Urine Negative (Negative); Blood Urine Negative (Negative); Glucose Urine UA Negative (Normal); Ketones Urine Negative (Negative); Leukocyte Esterase Urine Negative (Negative); Nitrate Urine Negative (Negative); Protein Urine Negative (Negative); Specific Gravity, Urine 1.006 (1.005-1.030); Urine Appearance Clear (CLEAR); Urine Color Yellow (Yellow); Urobilinogen Urine 0.2 mg/dL (Negative)
[2024-12-11 17:01] LABS: Add Urine Microscopic? YES; Bacteria Urine None Seen /hpf; Hyaline Casts Urine 2.05 /lpf; RBC Urine 0-2 /hpf (0-2); Squamous Epithelial Cell Urine 0-5 /hpf (0-5); WBC Urine 0-5 /hpf (0-5)
[2024-12-11 17:06] LABS: Alanine Aminotransferase 21 U/L (0-33); Albumin Level 3.8 g/dL (3.5-5.2); Alkaline Phosphatase 133 U/L (35-105); Anion Gap 13.2 (5-19); Aspartate Amino Transferase 18 U/L (0-32); Blood Urea Nitrogen 23 mg/dL (8-23); Calcium 8.6 mg/dL (8.5-10.5); Carbon Dioxide 33 mmol/L (22-29); Chloride 100 mmol/L (98-107); Globulin 3.1 g/dL (1.3-4.6); Glucose 132 mg/dL (65-115); Osmolality Calculated 300 mOsm/kg (285-295); Potassium 4.2 mmol/L (3.5-5.1); Sodium 142 mmol/L (136-145); Total Bilirubin 0.2 mg/dL (0.15-1.2); Total Protein 6.9 g/dL (6.6-8.7)
[2024-12-11] MEDS: ipratropium-albuterol 3 mL Neb INHALATION (17:09)
[2024-12-11 17:11] LABS: Add Urine Culture? No
[2024-12-11 17:15] LABS: Troponin(5th) Baseline 20 ng/L (0-10)
[2024-12-11] MEDS: ondansetron 2 mg/ML SDV 2 mL 4 MG IVP (17:16)
[2024-12-11] MEDS: dexamethasone 10 mg/mL INJ IM (17:16)
[2024-12-11 17:21] LABS: ABG PCO2 71.8 mmHg (35-45); ABG PH Result 7.31 (7.35-7.45); Alveolar-Arterial Oxygen Gradi 10.8 mmHg (5-10); Arterial Blood Gas Hematocrit 34.6 % (37-47); Base Excess ABG 7.4 mmol/L (-2.0-2.0); Blood Gas Operator Identificat AMH; Blood Gas Sample Site Brachial, right; Blood Gas Sample Type Arterial; Carboxyhemoglobin 1.2 %THgb (0.4-20.1); HCO3 ABG 35.8 mmol/L (22-26); HGB O2 Sat 86.8 % (95-100); Ionized Calcium Level - ABG 1.2 mmol/L (1.1-1.4); Methemoglobin 0.8 % (0.4-1.5); Oxygen Device NC; Oxygen Saturation ABG 88.6; PO2 ABG 58.4 mmHg (80.0-100.0); PO2 FiO2 Ratio Arterial Blood 182; Total Hemoglobin 11.3 g/dL (12-16)
[2024-12-11 17:36] LABS: Rapid Strep A Test Negative (Negative)
--- NOTE | 2024-12-11 18:01 | PM.HP ---
Providers/Chief Complaint Primary Care Provider: Adrienne March DO Chief Complaint: weakness, sob History of Present Illness Tiffany Gaffney is a 79 year old female with a past medical history of CAD, CHF, sinus bradycardia, diastolic CHF, seizure disorder, type 2 diabetes, hypothyroidism, CKD, chronic anticoagulation Eliquis, history of CVA who presents [facility] for complaints of shortness of breath, altered mental status. Currently patient alert to person, to place, not to time she can follow commands, history taking is difficult given her confusion, but she can answer basic yes or no questions family numbers at bedside help with the history taking. Patient lives at home with her , and her son, she has been feeling increasingly short of breath, has had a cough, increased confusion, she does not smoke, no chest pain, she saw her primary care provider for shortness of breath and increased confusion, and so she was given antibiotics but was not able to pick them up as of yet, due to increased shortness of breath, she uses oxygen at home I was unable to make out how much she uses, no history of sleep apnea no history of CPAP use at home Review of Systems Const: Denies: fever(s) Card: Denies: chest pain Resp: Reports: dyspnea GI: Denies: abdominal pain : Denies: flank pain Medications/Allergies Home Medications ?Medication ?Instructions ?Recorded ?Confirmed ?Last Taken ?Type cetirizine 10 mg tablet (Zyrtec) 10 mg PO DAILY PRN Allergy Symptoms 11/13/19 10/03/24 08/08/24 History desvenlafaxine succinate 50 mg 50 mg PO DAILY 11/13/19 10/03/24 08/08/24 History tablet,extended release 24 hr (Pristiq) esomeprazole magnesium 20 mg 20 mg PO DAILY 11/13/19 10/03/24 08/08/24 History capsule,delayed release (Nexium) fluticasone propionate 50 1 spray intranasal DAILY PRN 11/13/19 10/03/24 Unknown History mcg/actuation nasal allergies spray,suspension gabapentin 300 mg capsule 300 mg PO BID 11/13/19 10/03/24 09/13/21 History oxycodone-acetaminophen 10 mg-325 1 tab PO Q4H PRN Pain 11/13/19 10/03/24 Unknown History mg tablet (Percocet) phenytoin sodium extended 100 mg 300 mg PO BID 11/13/19 10/03/24 08/08/24 History capsule (Dilantin Extended) ergocalciferol (vitamin D2) 1,250 1,250 mcg PO DAILY 09/14/21 10/03/24 08/02/24 History mcg (50,000 unit) capsule (Vitamin D2) potassium chloride 20 mEq 20 meq PO DAILY 09/14/21 10/03/24 08/08/24 History tablet,extended release aspirin 81 mg capsule 81 mg PO DAILY #30 caps 08/07/24 10/03/24 08/08/24 Rx atorvastatin 40 mg tablet 40 mg PO DAILY #30 tabs 08/07/24 10/03/24 Unknown Rx clopidogrel 75 mg tablet 75 mg PO DAILY #30 tabs 08/07/24 10/03/24 Unknown Rx apixaban 5 mg tablet (Eliquis) 5 mg PO BID 08/08/24 10/03/24 08/08/24 History dulaglutide 1.5 mg/0.5 mL 0.5 mg SUBCUT Q7D 08/08/24 10/03/24 Unknown History subcutaneous pen injector (Trulicity) levothyroxine 125 mcg tablet 125 mcg PO DAILY 08/08/24 10/03/24 08/08/24 History metformin 500 mg tablet 500 mg PO BID 08/08/24 10/03/24 08/08/24 History bumetanide 2 mg tablet 2 mg PO DAILY #7 tabs 08/19/24 10/03/24 Unknown Rx azelastine 137 mcg (0.1 %) nasal 2 spray intranasal BID 08/21/24 10/03/24 Unknown History spray furosemide 40 mg tablet 40 mg PO DAILY 08/21/24 10/03/24 Unknown History lisinopril 5 mg tablet 5 mg PO DAILY 08/21/24 10/03/24 Unknown History metoprolol succinate 25 mg 25 mg PO DAILY 08/21/24 10/03/24 Unknown History tablet,extended release 24 hr Allergies Allergy/AdvReac Type Severity Reaction Status Date / Time adhesive tape Allergy Unknown Verified 10/03/24 11:15 silver sulfadiazine (From Allergy ALGY-Rash Verified 10/03/24 11:15 Silvadene) PFSH Acute PFSH: Medical History Chronic anticoagulation Diabetes Hypoxia Diastolic heart failure Exertional dyspnea COPD (chronic obstructive pulmonary disease) Seizure disorder Mild aortic stenosis Obesity Diabetes 1.5, managed as type 2 Hyperlipidemia HTN (hypertension) Hypothyroidism CVA (cerebral vascular accident) Surgical History Previous back surgery S/P hysterectomy Family History Father Stroke Hypertension Mother Hypertension CAD (coronary artery disease) Myocardial infarction Sister Hypertension CAD (coronary artery disease) Myocardial infarction Brother CAD (coronary artery disease) Myocardial infarction Denies family history of Colon cancer Pancreatic cancer Ovarian cancer Thyroid cancer Diabetes Breast cancer Cancer Uterine cancer Social History Smoking and tobacco/nicotine status: never used tobacco/nicotine Household members: spouse Marital status: Vitals/I&O/Wt Last Vital Signs Temp 98.0 F 12/11/24 16:16 Pulse 62 12/11/24 17:35 Resp 17 12/11/24 17:34 BP 124/55 12/11/24 17:34 Pulse Ox 92 12/11/24 17:35 O2 Del Method Nasal Cannula 12/11/24 17:34 O2 Flow Rate 3 12/11/24 17:34 FiO2 40 12/11/24 17:35 Physical Exam Const: COMMON NORMALS: no acute distress ORIENTATION/CONSCIOUSNESS: Yes awake, Yes oriented to person, Yes oriented to place and Yes confused; not oriented to time HENMT: COMMON NORMALS: normocephalic HEAD & SCALP: normocephalic Eye: COMMON NORMALS: Equal, round and reactive pupils present Neck/C-Spine: COMMON NORMALS: no JVD Resp: COMMON NORMALS: normal respiratory effort, No retractions and No use of accessory muscles AUSCULTATION: crackles and wheezes Cardio: COMMON NORMALS: no JVD, regular rate, regular rhythm, S1 normal heart sound present and S2 normal heart sound present RATE: regular rate RHYTHM: regular rhythm HEART SOUNDS: S1 normal heart sound present and S2 normal heart sound present GI: COMMON NORMALS: Normal to inspection, nondistended, normoactive bowel sounds present, Soft to palpation, non-tender, No hepatosplenomegaly present, no masses and no bruits PALPATION: Yes Soft to palpation and Yes No hepatosplenomegaly present Extremity: NARRATIVE EXTREMITY EXAM: 2+ pitting edema Neuro: COMMON NORMALS: moves all extremities Data 12/11/24 16:30 12/11/24 16:30 A&P Assessment and plan (1) Acute encephalopathy: (2) Acute on chronic respiratory failure with hypoxia and hypercapnia: (3) COPD exacerbation: (4) Pneumonia: (5) CHF exacerbation: Plan Acute encephalopathy -Likely secondary to hypercarbia -Monitor mentation Acute hypoxic hypercarbic respiratory failure -Secondary to COPD exacerbation -Secondary to pneumonia -Secondary to CH F, diastolic Plan -Monitor respiratory status closely -Monitor in ICU -Continue BiPAP scheduled -Rocephin, Zithromycin -Decadron 6 mg IV push every 24 hours -Lasix 40 IV twice daily -Monitor potassium monitor creatinine -Blood cultures -Pro-Pavel, CRP -Full code -Eliquis DVT prophylaxis History of CAD continue aspirin, statin, Eliquis Chronic anticoagulation, continue Eliquis Type 2 diabetes, low-dose sliding scale Hypothyroidism continue levothyroxine Morbid obesity PDMP PDMP Reviewed: Not Reviewed Attestations Medical Necessity Statement*: Patient requires hospitalization, inpatient, greater than 2 midnights for acute hypoxic hypercarbic respiratory failure sec to pneumonia, COPD, CHF, acute encephalopathy Diagnoses Acute encephalopathy G93.40 Acute on chronic respiratory failure with hypoxia and hypercapnia J96.21; J96.22 COPD exacerbation J44.1 Pneumonia J18.9 CHF exacerbation I50.9
--- NOTE | 2024-12-11 18:22 | ECG_ITS ---
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 Measurements Intervals [place] Rate: 63 P: 0 SC: 0 QRS: 240 QRSD: 150 T: -21 QT: 443 QTc: 456 Interpretive Statements ATRIAL FIBRILLATION RIGHT AXIS DEVIATION [QRS AXIS > 100] RIGHT BUNDLE BRANCH BLOCK [120+ ms QRS DURATION, UPRIGHT V1, 40+ ms S IN I/aVL/V4/V5/V6] ANTEROSEPTAL MYOCARDIAL INFARCTION , OF INDETERMINATE AGE [40+ ms Q WAVE IN V1-V4].MODERATE T-WAVE ABNORMALITY, CONSIDER LATERAL ISCHEMIA [-0.1+ mV T-WAVE IN I/aVL/V5/V6] Compared to ECG 12/11/2024 16:19:23 Junctional rhythm no longer present Myocardial infarct finding still present T-wave abnormality still present.Possible ischemia still present Electronically Signed On 12-11-2024 21:04:09 CDT by Stanley Miller M.D. [id number] [id number]
[2024-12-11 18:23] LABS: Influenza A NEGATIVE (Negative); Influenza B NEGATIVE (Negative); Respiratory Syncytial Virus Ce NEGATIVE (Negative); SARS-CoV-2 PCR NEGATIVE (Negative)
[2024-12-11 18:38] LABS: Lactic Sepsis W/Reflex 1.6 mmol/L (0.5-2.2)
[2024-12-11 18:49] LABS: NT Pro B Type Natriuretic Pept 3651 pg/mL (0-450); Procalcitonin 0.09 ng/mL (0-0.5)
[2024-12-11 19:05] LABS: Troponin 5 2HR 20.25 ng/L (0-10); Troponin 5 2HR Delta 0.25 ABS# (0-10)
--- NOTE | 2024-12-11 19:06 | PC.NURSE ---
this nurse took over patient care @1850.
[2024-12-11] MEDS: gabapentin 300 mg Capsule PO (20:40)
[2024-12-11] MEDS: pantoprazole 40 mg SDV IVP (20:40)
[2024-12-11] MEDS: phenytoin ER 100 mg Capsule 300 MG PO (20:40)
[2024-12-11] MEDS: apixaban 5 mg Tablet PO (20:40)
[2024-12-11] MEDS: FUROsemide 10 mg/mL SDV 4mL 40 MG IVP (20:41)
[2024-12-11] MEDS: piperacillin-tazobactam 3.375 GM in sodium chloride 0.9% (plus) 50 ML IV (20:58)
[2024-12-11 21:01] LABS: Thyroid Stimulating Hormone 3.25 uIU/mL (0.27-4.20)
[2024-12-11 21:05] LABS: Glucose Point of Care 233 mg/dL (70-110)
[2024-12-11] MEDS: insulin lispro 100 unit/1 mL SUBCUT (21:08)
--- NOTE | 2024-12-11 22:22 | ECG_ITS ---
[facility] Date: 2024-12-11 Pat Name: Tiffany Gaffney Department: Room: ICU03 Gender: Female Trauma Therapist: : 1945 Requested By: Pedro Liao Order Number: [id number] Cristy MD: Stanley Miller M.D. Measurements Intervals [place] Rate: 57 P: 0 NM: 0 QRS: 236 QRSD: 144 T: -60 QT: 466 QTc: 456 Interpretive Statements ATRIAL FIBRILLATION WITH SLOW VENTRICULAR RESPONSE RIGHT AXIS DEVIATION [QRS AXIS > 100] RIGHT BUNDLE BRANCH BLOCK [120+ ms QRS DURATION, UPRIGHT V1, 40+ ms S IN I/aVL/V4/V5/V6] ANTEROSEPTAL MYOCARDIAL INFARCTION , OF INDETERMINATE AGE [40+ ms Q WAVE IN V1-V4] MODERATE T-WAVE ABNORMALITY, CONSIDER LATERAL ISCHEMIA [-0.1+ mV T-WAVE IN I/aVL/V5/V6] MODERATE T-WAVE ABNORMALITY, CONSIDER INFERIOR ISCHEMIA [-0.1+ mV T-WAVE IN II/aVF] Compared to ECG 12/11/2024 18:23:26 No significant changes Electronically Signed On 12-14-2024 22:30:53 CDT by Stanley Miller M.D. [id number] [id number]
[2024-12-11 22:59] LABS: Troponin 5 6HR 19.77 ng/L (0-10)
[2024-12-11 23:00] LABS: Troponin 5 6HR Delta -0.23 ng/L (0-12)
[2024-12-12] VITALS (35 sets, daily range): BP systolic 105–141; BP diastolic 39–80; PULSE 45–75; RESP 16–24; TEMP 36.2–36.3; O2SAT 87–100
--- NOTE | 2024-12-12 02:19 | ECG_ITS ---
[employer] [facility] [facility] Test Date: 2024-12-12 Pat Name: Tiffany Gaffney Department: Room: ICU03 Gender: Female Event Organizer: : 1945 Requested By: Zak Villalobos Order Number: [id number] Cristy MD: Stanley Miller M.D. Measurements Intervals [place] Rate: 45 P: 0 VT: 0 QRS: 233 QRSD: 149 T: -62 QT: 508 QTc: 442 Interpretive Statements possible sinus bradycardia with PAC RIGHT AXIS DEVIATION [QRS AXIS > 100] RIGHT BUNDLE BRANCH BLOCK [120+ ms QRS DURATION, UPRIGHT V1, 40+ ms S IN I/aVL/V4/V5/V6] ANTEROSEPTAL MYOCARDIAL INFARCTION , OF INDETERMINATE AGE [40+ ms Q WAVE IN V1-V4] MODERATE T-WAVE ABNORMALITY, CONSIDER LATERAL ISCHEMIA [-0.1+ mV T-WAVE IN I/aVL/V5/V6].MODERATE T-WAVE ABNORMALITY, CONSIDER INFERIOR ISCHEMIA [-0.1+ mV T-WAVE IN II/aVF] Compared to ECG 12/11/2024 22:50:54.Atrial fibrillation no longer present Myocardial infarct finding still present. T-wave abnormality still present Possible ischemia still present Electronically Signed On 12-13-2024 12:38:11 CDT by Stanley Miller M.D. [id number] [id number]
[2024-12-12 04:59] LABS: Basophils % 0.3 %; Eosinophils # 0.1 10^3/uL (0.0-0.8); Eosinophils % 0.7 %; Hematocrit 35.8 % (36-47); Lymphocytes # 1.4 10^3/uL (0.8-4.8); Lymphocytes % 9.9 %; Mean Corpuscular HGB Conc 30.2 g/dL (30-55); Mean Corpuscular Hemoglobin 29.9 pg (27-33); Mean Corpuscular Volume 99.2 fl (85-98); Mean Platelet Volume 8.8 fL (7.4-10.4); Monocytes # 1.4 10^3/uL (0.2-0.9); Monocytes % 10.1 %; Neutrophils # 10.99 10^3/uL (1.8-7.7); Neutrophils % 78.5 %; Nucleated Red Blood Cells % 0 %; Platelet Count 249 10^3/cmm (157-399); Red Blood Count 3.61 10^6/uL (3.85-5.65); Red Cell Distribution Width 13.7 % (12.1-15.1)
[2024-12-12 05:25] LABS: Estmated Average Glucose 166; Hemoglobin A1C 7.4 % (4.0-6.0)
[2024-12-12 05:27] LABS: Alanine Aminotransferase 17 U/L (0-33); Albumin Level 3.5 g/dL (3.5-5.2); Alkaline Phosphatase 121 U/L (35-105); Anion Gap 11.9 (5-19); Aspartate Amino Transferase 14 U/L (0-32); Blood Urea Nitrogen 27 mg/dL (8-23); Calcium 8.4 mg/dL (8.5-10.5); Carbon Dioxide 34 mmol/L (22-29); Chloride 98 mmol/L (98-107); Globulin 3.9 g/dL (1.3-4.6); Glucose 132 mg/dL (65-115); Magnesium 2.2 mg/dL (1.7-2.3); Osmolality Calculated 295 mOsm/kg (285-295); Phosphorus 5.1 mg/dL (2.5-4.5); Potassium 4.9 mmol/L (3.5-5.1); Sodium 139 mmol/L (136-145); Total Bilirubin 0.2 mg/dL (0.15-1.2); Total Protein 7.4 g/dL (6.6-8.7)
[2024-12-12 05:29] LABS: NT Pro B Type Natriuretic Pept 5053 pg/mL (0-450)
[2024-12-12 08:41] LABS: Glucose Point of Care 133 mg/dL (70-110)
--- NOTE | 2024-12-12 09:02 | PC.PHAR ---
Addendum entered by Lucrecia Cuevas 12/12/24 09:04: Pt had a Zpak phoned in at the pharmacy yesterday 12/12/24-family did pick it up but pt had not started yet as she was here. Original Note: Pt stated 12/11/24 (prior to intubation) the nurse at [place] sets up her medications. We were unable to find such a person. Verified medications through [facility] [phone] with last fill dates and day supply.
[2024-12-12] MEDS: AZITHROMYCIN ADD-Vantage 500 MG in 0.9% NaCl ADD-Vantage 250 ML 250 MG IV (09:23)
[2024-12-12] MEDS: FUROsemide 10 mg/mL SDV 4mL 40 MG IVP ×2 (09:24→20:55)
[2024-12-12] MEDS: cefTRIAXone 1,000 mg SDV 1000 MG IVP (09:24)
[2024-12-12] MEDS: atorvastatin 40 mg Tablet PO (09:25)
[2024-12-12] MEDS: levothyroxine 125 mcg Tablet PO (09:25)
[2024-12-12] MEDS: phenytoin ER 100 mg Capsule 300 MG PO ×2 (09:25→17:28)
[2024-12-12] MEDS: apixaban 5 mg Tablet PO ×2 (09:25→17:29)
[2024-12-12] MEDS: dexamethasone 10 mg/mL INJ 6 MG IVP (09:25)
[2024-12-12] MEDS: aspirin 81 mg EC Tablet PO (09:25)
[2024-12-12] MEDS: potassium chloride ER 20 mEq Tablet PO (09:25)
[2024-12-12] MEDS: gabapentin 300 mg Capsule PO ×2 (09:26→17:28)
[2024-12-12 11:23] LABS: Glucose Point of Care 183 mg/dL (70-110)
[2024-12-12] MEDS: insulin lispro 100 unit/1 mL SUBCUT ×2 (12:00→17:29)
--- NOTE | 2024-12-12 12:53 | P.PN_ITS ---
Subjective 2 Subjective: Patient was seen this morning, she is alert awake she can follow commands, she tells me her shortness of breath is improving, continues to have edema Vitals/I&O/Wt Last Vital Signs Temp 97.1 F L 12/12/24 12:00 Pulse 59 L 12/12/24 12:00 Resp 21 H 12/12/24 12:00 BP 110/73 12/12/24 12:00 Pulse Ox 91 12/12/24 12:00 O2 Del Method Nasal Cannula 12/12/24 12:00 O2 Flow Rate 2 12/12/24 12:00 FiO2 30 12/12/24 08:00 12/11/24 12/12/24 12/12/24 22:59 06:59 14:59 Intake Total 50 / 50 250 / 250 Output Total 500 / 500 Balance -450 / -450 250 / 250 Weight last 48 hrs Weight 102.512 kg Physical Exam 2 Const: COMMON NORMALS: no acute distress and patient oriented x3 Resp: COMMON NORMALS: normal respiratory effort, No retractions and No use of accessory muscles AUSCULTATION: crackles and wheezes Cardio: COMMON NORMALS: regular rate, regular rhythm, S1 normal heart sound present and S2 normal heart sound present RATE: regular rate RHYTHM: r egular rhythm HEART SOUNDS: S1 normal heart sound present and S2 normal heart sound present GI: COMMON NORMALS: Normal to inspection, nondistended, normoactive bowel sounds present and non-tender Extremity: NARRATIVE EXTREMITY EXAM: 2+ pitting edema Neuro: COMMON NORMALS: patient oriented x3 and CN's II-XII intact bilaterally Psych: COMMON NORMALS: mental status grossly normal Urinary Catheter Management: Siddiiq: Cath Placed During This Visit: yes Reason for Continuing Indwelling Catheter: Accurate Measurement of Urinary Output in Critically Ill Patients Urinary Catheter Date of Insertion: 12/11/24 Urinary Catheter Time of Insertion: 21:30 Data 12/12/24 04:10 12/12/24 04:10 Micro: Microbiology 12/11/24 18:33 Blood Culture - Preliminary Blood SPECIMEN COLLECTED 12/11/24 18:33 Blood Culture - Preliminary Blood SPECIMEN COLLECTED A&P Assessment and plan (1) Acute encephalopathy: (2) Acute on chronic respiratory failure with hypoxia and hypercapnia: (3) COPD exacerbation: (4) Pneumonia: (5) CHF exacerbation: Plan Acute encephalopathy -Likely secondary to hypercarbia -Monitor mentation Acute hypoxic hypercarbic respiratory failure -Secondary to COPD exacerbation -Secondary to pneumonia -Secondary to CH F, diastolic Plan -Monitor respiratory status closely -Monitor in ICU -Continue BiPAP scheduled -Rocephin, Zithromycin -Decadron 6 mg IV push every 24 hours -Lasix 40 IV twice daily -Monitor potassium monitor creatinine -Blood cultures -Pro-Pavel, CRP -Full code -Eliquis DVT prophylaxis History of CAD continue aspirin, statin, Eliquis Chronic anticoagulation, continue Eliquis Type 2 diabetes, low-dose sliding scale Hypothyroidism continue levothyroxine Morbid obesity PDMP PDMP Reviewed: Not Reviewed Attestations 2 Medical Necessity Statement*: Patient requires hospitalization for acute hypoxic respiratory failure secondary to CHF, pneumonia, COPD Diagnoses Acute encephalopathy G93.40 Acute on chronic respiratory failure with hypoxia and hypercapnia J96.21; J96.22 COPD exacerbation J44.1 Pneumonia J18.9 CHF exacerbation I50.9
[2024-12-12 14:59] LABS: Blood Urea Nitrogen 28 mg/dL (8-23); Calcium 8.5 mg/dL (8.5-10.5); Carbon Dioxide 28 mmol/L (22-29); Chloride 97 mmol/L (98-107); Creatinine Clr Calc Pharmacy 40.6573; Glucose 208 mg/dL (65-115); Osmolality Calculated 292 mOsm/kg (285-295); Sodium 135 mmol/L (136-145)
[2024-12-12 17:01] LABS: Glucose Point of Care 222 mg/dL (70-110)
--- NOTE | 2024-12-12 19:16 | PC.NURSE ---
Shift summary: Started the shift using BIPap at 30%, she was switched to 2lm/NC. She has been up to the chair since breakfast time. She stated it makes her back feel better. She has an excellent appetite. Eats meals in entirety. She has had more than adequate oral fluid intake. No coughing noted. She prefers to sit in chair to resting in bed. During one her sound naps her O2 sats dropped to 85% so Oxygen increased to 3lpm. Brought her sats up to 90% while she was resting. Sinus rhythm noted on monitor, measured out to be first degree as well. She stated her bowels needed to move so I took something before I came to the hospital. She sat on the BSC for awhile this am, only flatulence present. She had 1000 ml of urinary catheter output. NO pain verbalized by patients. Two of her siblings were in to visit today.
[2024-12-12] MEDS: pantoprazole 40 mg SDV IVP (20:53)
[2024-12-12 21:04] LABS: Glucose Point of Care 169 mg/dL (70-110)
[2024-12-13] VITALS (21 sets, daily range): BP systolic 107–143; BP diastolic 40–98; PULSE 46–83; RESP 16–24; TEMP 35.9–36.7; O2SAT 90–100
[2024-12-13 05:07] LABS: Basophils % 0.3 %; Eosinophils # 0.4 10^3/uL (0.0-0.8); Eosinophils % 3.9 %; Lymphocytes # 1.7 10^3/uL (0.8-4.8); Lymphocytes % 17.4 %; Mean Corpuscular HGB Conc 31.2 g/dL (30-55); Mean Corpuscular Hemoglobin 30.4 pg (27-33); Mean Corpuscular Volume 97.3 fl (85-98); Mean Platelet Volume 9.1 fL (7.4-10.4); Monocytes # 1.1 10^3/uL (0.2-0.9); Monocytes % 10.9 %; Neutrophils # 6.44 10^3/uL (1.8-7.7); Neutrophils % 66.9 %; Nucleated Red Blood Cells % 0 %; Platelet Count 252 10^3/cmm (157-399); Red Blood Count 3.39 10^6/uL (3.85-5.65); Red Cell Distribution Width 13.7 % (12.1-15.1); White Blood Count 9.64 10^3/uL (3.29-11.43)
[2024-12-13 05:21] LABS: Alanine Aminotransferase 15 U/L (0-33); Albumin Level 3.5 g/dL (3.5-5.2); Alkaline Phosphatase 117 U/L (35-105); Aspartate Amino Transferase 15 U/L (0-32); Blood Urea Nitrogen 32 mg/dL (8-23); Calcium 8.6 mg/dL (8.5-10.5); Carbon Dioxide 34 mmol/L (22-29); Chloride 98 mmol/L (98-107); Globulin 3.8 g/dL (1.3-4.6); Glucose 164 mg/dL (65-115); Magnesium 2.2 mg/dL (1.7-2.3); Osmolality Calculated 303 mOsm/kg (285-295); Phosphorus 4.4 mg/dL (2.5-4.5); Sodium 141 mmol/L (136-145); Total Bilirubin 0.2 mg/dL (0.15-1.2); Total Protein 7.3 g/dL (6.6-8.7)
[2024-12-13 05:25] LABS: Anion Gap 13.5 (5-19); Potassium 4.5 mmol/L (3.5-5.1)
[2024-12-13 05:34] LABS: NT Pro B Type Natriuretic Pept 2280 pg/mL (0-450)
--- NOTE | 2024-12-13 07:00 | XRR_ITS ---
PROCEDURE INFORMATION: Exam: XR Chest Exam date and time: 12/13/2024 5:18 AM Age: 79 years old Clinical indication: Shortness of breath; Additional info: SOB TECHNIQUE: Imaging protocol: Radiologic exam of the chest. Views: 1 view. COMPARISON: CR XR chest 1V portable [id number] 12/11/2024 4:36 PM FINDINGS: Lungs: See Heart/Mediastinum finding. Pleural spaces: Unremarkable. No pleural effusion. No pneumothorax. Heart/Mediastinum: Borderline cardiomegaly accentuated by the AP positioning. Mild vascular and interstitial prominence suggest cardiac decompensation, the appearance has slightly improved since the prior study. Bones/joints: Anterior cervical fusion. XR/XR chest 1V portable [id number] IMPRESSION: Improvement but persistent cardiac decompensation.
[2024-12-13 07:32] LABS: Glucose Point of Care 140 mg/dL (70-110)
[2024-12-13] MEDS: AZITHROMYCIN ADD-Vantage 500 MG in 0.9% NaCl ADD-Vantage 250 ML 250 MG IV (07:46)
[2024-12-13] MEDS: cefTRIAXone 1,000 mg SDV 1000 MG IVP (07:46)
[2024-12-13] MEDS: phenytoin ER 100 mg Capsule 300 MG PO ×2 (07:47→17:31)
[2024-12-13] MEDS: aspirin 81 mg EC Tablet PO (07:47)
[2024-12-13] MEDS: dexamethasone 10 mg/mL INJ 6 MG IVP (07:48)
[2024-12-13] MEDS: atorvastatin 40 mg Tablet PO (07:48)
[2024-12-13] MEDS: potassium chloride ER 20 mEq Tablet PO (07:48)
[2024-12-13] MEDS: levothyroxine 125 mcg Tablet PO (07:48)
[2024-12-13] MEDS: gabapentin 300 mg Capsule PO ×2 (07:48→17:31)
[2024-12-13] MEDS: apixaban 5 mg Tablet PO ×2 (07:48→17:32)
[2024-12-13] MEDS: FUROsemide 10 mg/mL SDV 4mL 40 MG IVP ×2 (07:49→20:15)
[2024-12-13] MEDS: metoprolol succinate ER (24 HR) 25 mg Tablet PO (08:11)
[2024-12-13 10:56] LABS: Glucose Point of Care 272 mg/dL (70-110)
[2024-12-13] MEDS: insulin lispro 100 unit/1 mL SUBCUT ×2 (12:20→17:32)
--- NOTE | 2024-12-13 12:40 | PC.SOCIAL ---
IMM Updated Updated pt on IMM. No questions voiced. Provided pt a copy. Initialed, dated, & timed a copy & placed in chart.
--- NOTE | 2024-12-13 14:44 | P.PN_ITS ---
Subjective 2 Subjective: Patient was seen this morning, she is sitting up into a chair, she tells me that her shortness of breath is improving, denies any fevers, no chills, does have a cough, her edema is also improving, Vitals/I&O/Wt Last Vital Signs Temp 96.6 F L 12/13/24 05:54 Pulse 78 12/13/24 14:01 Resp 22 H 12/13/24 14:01 BP 121/77 12/13/24 14:01 Pulse Ox 96 12/13/24 13:01 O2 Del Method Nasal Cannula 12/13/24 08:14 O2 Flow Rate 3 12/13/24 08:14 FiO2 30 12/13/24 03:24 12/12/24 12/13/24 12/13/24 22:59 06:59 14:59 Intake Total 750 / 2250 1000 / 3250 Output Total 1000 / 1000 Balance -250 / 1250 1000 / 2250 Weight last 48 hrs Weight 102.512 kg Physical Exam 2 Const: COMMON NORMALS: no acute distress and patient oriented x3 Resp: COMMON NORMALS: normal respiratory effort, No retractions and No use of accessory muscles AUSCULTATION: crackles and wheezes Cardio: COMMON NORMALS: regular rate, regular rhythm, S1 normal heart sound present and S2 normal heart sound present RATE: regular rate RHYTHM: r egular rhythm HEART SOUNDS: S1 normal heart sound present and S2 normal heart sound present GI: COMMON NORMALS: Normal to inspection, nondistended, normoactive bowel sounds present and non-tender Extremity: NARRATIVE EXTREMITY EXAM: 2+ pitting edema Neuro: COMMON NORMALS: patient oriented x3 Psych: COMMON NORMALS: mental status grossly normal Urinary Catheter Management: Siddiqi: Cath Placed During This Visit: yes Reason for Continuing Indwelling Catheter: Accurate Measurement of Urinary Output in Critically Ill Patients Urinary Catheter Date of Insertion: 12/11/24 Urinary Catheter Time of Insertion: 21:30 Data 12/13/24 04:29 12/13/24 04:29 Micro: Microbiology 12/11/24 18:33 Blood Culture - Preliminary Blood NEGATIVE TO DATE 12/11/24 18:33 Blood Culture - Preliminary Blood NEGATIVE TO DATE 12/11/24 17:00 Group A Streptococcus Rapid Screen - Preliminary Throat A&P Assessment and plan (1) Acute encephalopathy: (2) Acute on chronic respiratory failure with hypoxia and hypercapnia: (3) COPD exacerbation: (4) Pneumonia: (5) CHF exacerbation: Plan Acute encephalopathy, resolving -Likely secondary to hypercarbia -Monitor mentation Acute hypoxic hypercarbic respiratory failure -Secondary to COPD exacerbation -Secondary to pneumonia -Secondary to CH F, diastolic Plan -Monitor respiratory status closely -Will moved to medical floors -Continue BiPAP scheduled -Rocephin, Zithromycin -Decadron 6 mg IV push every 24 hours -Lasix 40 IV twice daily, 1 dose metolazone -Monitor potassium monitor creatinine -Blood cultures -Full code -Eliquis DVT prophylaxis History of CAD continue aspirin, statin, Eliquis Chronic anticoagulation, continue Eliquis Type 2 diabetes, low-dose sliding scale Hypothyroidism continue levothyroxine Morbid obesity PDMP PDMP Reviewed: Not Reviewed Attestations 2 Medical Necessity Statement*: Patient requires hospitalization for acute hypoxic respiratory failure requiring IV diuresis, IV antibiotics Diagnoses Acute encephalopathy G93.40 Acute on chronic respiratory failure with hypoxia and hypercapnia J96.21; J96.22 COPD exacerbation J44.1 Pneumonia J18.9 CHF exacerbation I50.9
[2024-12-13] MEDS: metOLazone 5 MG Tablet PO (15:04)
[2024-12-13 17:00] LABS: Glucose Point of Care 296 mg/dL (70-110)
[2024-12-13 20:12] LABS: Glucose Point of Care 265 mg/dL (70-110)
[2024-12-13] MEDS: pantoprazole 40 mg SDV IVP (20:15)
[2024-12-14] VITALS (13 sets, daily range): BP systolic 113–144; BP diastolic 51–81; PULSE 65–89; RESP 16–18; TEMP 36.3–36.8; O2SAT 93–98
[2024-12-14 05:37] LABS: Basophils # 0.1 10^3/uL (0.0-0.1); Basophils % 0.5 %; Eosinophils # 0.5 10^3/uL (0.0-0.8); Eosinophils % 5.4 %; Lymphocytes # 1.7 10^3/uL (0.8-4.8); Lymphocytes % 17.4 %; Mean Corpuscular HGB Conc 31.2 g/dL (30-55); Mean Corpuscular Hemoglobin 30.7 pg (27-33); Mean Corpuscular Volume 98.6 fl (85-98); Mean Platelet Volume 8.9 fL (7.4-10.4); Monocytes # 1.1 10^3/uL (0.2-0.9); Monocytes % 10.7 %; Neutrophils # 6.45 10^3/uL (1.8-7.7); Neutrophils % 65.3 %; Nucleated Red Blood Cells % 0 %; Platelet Count 276 10^3/cmm (157-399); Red Blood Count 3.45 10^6/uL (3.85-5.65); Red Cell Distribution Width 13.6 % (12.1-15.1); White Blood Count 9.88 10^3/uL (3.29-11.43)
[2024-12-14 06:00] LABS: Alanine Aminotransferase 14 U/L (0-33); Albumin Level 3.4 g/dL (3.5-5.2); Alkaline Phosphatase 114 U/L (35-105); Anion Gap 14.8 (5-19); Aspartate Amino Transferase 16 U/L (0-32); Blood Urea Nitrogen 31 mg/dL (8-23); Calcium 8.3 mg/dL (8.5-10.5); Carbon Dioxide 34 mmol/L (22-29); Chloride 97 mmol/L (98-107); Globulin 3.9 g/dL (1.3-4.6); Glucose 162 mg/dL (65-115); Magnesium 2.1 mg/dL (1.7-2.3); Osmolality Calculated 304 mOsm/kg (285-295); Phosphorus 4.3 mg/dL (2.5-4.5); Potassium 3.8 mmol/L (3.5-5.1); Sodium 142 mmol/L (136-145); Total Bilirubin 0.2 mg/dL (0.15-1.2); Total Protein 7.3 g/dL (6.6-8.7)
[2024-12-14 06:01] LABS: NT Pro B Type Natriuretic Pept 2166 pg/mL (0-450)
[2024-12-14 06:41] LABS: Glucose Point of Care 178 mg/dL (70-110)
[2024-12-14] MEDS: phenytoin ER 100 mg Capsule 300 MG PO ×2 (10:12→18:13)
[2024-12-14] MEDS: levothyroxine 125 mcg Tablet PO (10:13)
[2024-12-14] MEDS: atorvastatin 40 mg Tablet PO (10:13)
[2024-12-14] MEDS: aspirin 81 mg EC Tablet PO (10:14)
[2024-12-14] MEDS: gabapentin 300 mg Capsule PO ×2 (10:14→18:13)
[2024-12-14] MEDS: metoprolol succinate ER (24 HR) 25 mg Tablet PO (10:14)
[2024-12-14] MEDS: potassium chloride ER 20 mEq Tablet PO (10:15)
[2024-12-14] MEDS: apixaban 5 mg Tablet PO ×2 (10:15→18:13)
[2024-12-14] MEDS: metOLazone 5 MG Tablet PO (10:15)
[2024-12-14] MEDS: dexamethasone 10 mg/mL INJ 6 MG IVP (10:19)
[2024-12-14] MEDS: FUROsemide 10 mg/mL SDV 4mL 40 MG IVP ×2 (10:27→21:32)
[2024-12-14] MEDS: cefTRIAXone 1,000 mg SDV 1000 MG IVP (10:40)
[2024-12-14 10:46] LABS: Glucose Point of Care 195 mg/dL (70-110)
[2024-12-14] MEDS: insulin lispro 100 unit/1 mL SUBCUT ×3 (10:51→18:14)
[2024-12-14] MEDS: AZITHROMYCIN ADD-Vantage 500 MG in 0.9% NaCl ADD-Vantage 250 ML 250 MG IV (10:53)
--- NOTE | 2024-12-14 13:49 | P.PN_ITS ---
Subjective 2 Subjective: Patient was seen this morning, she is sitting up in a chair, denies any fevers, chills, nausea, vomiting does report shortness of breath although improving Vitals/I&O/Wt Last Vital Signs Temp 98.0 F 12/14/24 12:54 Pulse 71 12/14/24 12:54 Resp 16 12/14/24 12:54 BP 116/73 12/14/24 12:54 Pulse Ox 98 12/14/24 11:17 O2 Del Method Nasal Cannula 12/14/24 11:17 O2 Flow Rate 3 12/14/24 11:17 FiO2 30 12/13/24 03:24 12/13/24 12/14/24 12/14/24 22:59 06:59 14:59 Intake Total 960 / 960 740 / 740 Output Total 1300 / 1300 1900 / 3200 Balance -340 / -340 -1900 / -2240 740 / 740 Physical Exam 2 Const: COMMON NORMALS: no acute distress and patient oriented x3 Resp: COMMON NORMALS: normal respiratory effort, No retractions and No use of accessory muscles AUSCULTATION: crackles and wheezes Cardio: COMMON NORMALS: regular rate, regular rhythm, S1 normal heart sound present and S2 normal heart sound present RATE: regular rate RHYTHM: r egular rhythm HEART SOUNDS: S1 normal heart sound present and S2 normal heart sound present GI: COMMON NORMALS: Normal to inspection, nondistended, normoactive bowel sounds present and non-tender Extremity: NARRATIVE EXTREMITY EXAM: 1+ edema Neuro: COMMON NORMALS: patient oriented x3 Psych: COMMON NORMALS: mental status grossly normal Urinary Catheter Management: Siddiqi: Cath Placed During This Visit: yes Reason for Continuing Indwelling Catheter: Accurate Measurement of Urinary Output in Critically Ill Patients Urinary Catheter Date of Insertion: 12/11/24 Urinary Catheter Time of Insertion: 21:30 Data 12/14/24 04:47 12/14/24 04:47 Micro: Microbiology 12/11/24 17:00 Group A Streptococcus Rapid Screen - Preliminary Throat Group g streptococcus A&P Assessment and plan (1) Acute encephalopathy: (2) Acute on chronic respiratory failure with hypoxia and hypercapnia: (3) COPD exacerbation: (4) Pneumonia: (5) CHF exacerbation: Plan Acute encephalopathy, resolving -Likely secondary to hypercarbia -Monitor mentation Acute hypoxic hypercarbic respiratory failure -Secondary to COPD exacerbation -Secondary to pneumonia -Secondary to CHF, diastolic Plan -Monitor respiratory status closely -moved to medical floors -Continue BiPAP scheduled during the night, as needed during the day -Rocephin, Zithromycin -Decadron 6 mg IV push every 24 hours, de-escalate to Decadron p.o. 4 mg daily -Lasix 40 IV twice daily, 1 dose metolazone -Monitor potassium monitor creatinine -Blood cultures -Full code -Eliquis DVT prophylaxis History of CAD continue aspirin, statin, Eliquis Chronic anticoagulation, continue Eliquis Type 2 diabetes, low-dose sliding scale Hypothyroidism continue levothyroxine Morbid obesity Plan for today continue IV diuresis, continue IV antibiotics, plan to discharge in next 24 hours PDMP PDMP Reviewed: Not Reviewed Attestations 2 Medical Necessity Statement*: Patient requires hospitalization for acute hypoxic respiratory failure secondary to COPD, CHF, pneumonia Diagnoses Acute encephalopathy G93.40 Acute on chronic respiratory failure with hypoxia and hypercapnia J96.21; J96.22 COPD exacerbation J44.1 Pneumonia J18.9 CHF exacerbation I50.9
[2024-12-14 17:05] LABS: Glucose Point of Care 199 mg/dL (70-110)
[2024-12-14 20:25] LABS: Glucose Point of Care 214 mg/dL (70-110)
[2024-12-14] MEDS: pantoprazole 40 mg SDV IVP (21:32)
--- NOTE | 2024-12-15 01:16 | PC.NURSE ---
Patient refusing to wear Bipap.
[2024-12-15 04:00] VITALS: BP 120/85; PULSE 70; RESP 19; TEMP 36.6
[2024-12-15 04:17] VITALS: PULSE 64
[2024-12-15 05:30] LABS: Basophils # 0.1 10^3/uL (0.0-0.1); Basophils % 0.6 %; Eosinophils # 0.4 10^3/uL (0.0-0.8); Eosinophils % 3.9 %; Hematocrit 35.9 % (36-47); Lymphocytes # 2.1 10^3/uL (0.8-4.8); Lymphocytes % 23.3 %; Mean Corpuscular HGB Conc 30.1 g/dL (30-55); Mean Corpuscular Hemoglobin 30.4 pg (27-33); Mean Corpuscular Volume 101.1 fl (85-98); Mean Platelet Volume 8.7 fL (7.4-10.4); Monocytes # 1.1 10^3/uL (0.2-0.9); Monocytes % 11.6 %; Neutrophils % 59.7 %; Nucleated Red Blood Cells % 0 %; Platelet Count 294 10^3/cmm (157-399); Red Blood Count 3.55 10^6/uL (3.85-5.65); Red Cell Distribution Width 13.5 % (12.1-15.1); White Blood Count 9.03 10^3/uL (3.29-11.43)
[2024-12-15 05:53] LABS: Alanine Aminotransferase 16 U/L (0-33); Albumin Level 3.5 g/dL (3.5-5.2); Alkaline Phosphatase 109 U/L (35-105); Anion Gap 16.6 (5-19); Aspartate Amino Transferase 18 U/L (0-32); Blood Urea Nitrogen 34 mg/dL (8-23); Calcium 8.3 mg/dL (8.5-10.5); Carbon Dioxide 34 mmol/L (22-29); Chloride 93 mmol/L (98-107); Glucose 170 mg/dL (65-115); Osmolality Calculated 302 mOsm/kg (285-295); Potassium 3.6 mmol/L (3.5-5.1); Sodium 140 mmol/L (136-145); Total Bilirubin 0.2 mg/dL (0.15-1.2); Total Protein 7.5 g/dL (6.6-8.7)
[2024-12-15 06:04] LABS: NT Pro B Type Natriuretic Pept 1412 pg/mL (0-450)
[2024-12-15 06:55] LABS: Glucose Point of Care 166 mg/dL (70-110)
[2024-12-15 08:00] VITALS: BP 116/65; PULSE 79; RESP 17; TEMP 36.4; O2SAT 98
[2024-12-15] MEDS: azithromycin 250 mg Tablet PO (08:31)
[2024-12-15] MEDS: atorvastatin 40 mg Tablet PO (08:31)
[2024-12-15] MEDS: aspirin 81 mg EC Tablet PO (08:31)
[2024-12-15] MEDS: dexamethasone 4 mg/mL INJ PO (08:31)
[2024-12-15] MEDS: potassium chloride ER 20 mEq Tablet PO (08:31)
[2024-12-15] MEDS: phenytoin ER 100 mg Capsule 300 MG PO (08:31)
[2024-12-15] MEDS: apixaban 5 mg Tablet PO (08:31)
[2024-12-15] MEDS: cefTRIAXone 1,000 mg SDV 1000 MG IVP (08:31)
[2024-12-15] MEDS: metoprolol succinate ER (24 HR) 25 mg Tablet PO (08:31)
[2024-12-15] MEDS: levothyroxine 125 mcg Tablet PO (08:31)
[2024-12-15] MEDS: FUROsemide 10 mg/mL SDV 4mL 40 MG IVP (08:32)
[2024-12-15] MEDS: gabapentin 300 mg Capsule PO (08:32)
[2024-12-15] MEDS: insulin lispro 100 unit/1 mL SUBCUT ×2 (08:32→12:05)
[2024-12-15 08:40] VITALS: PULSE 80; RESP 16; O2SAT 98
--- NOTE | 2024-12-15 10:15 | PC.SOCIAL ---
IMM Update pg 2 of IMM updated and reviewed w/ patient. Copy provided. Copy dated, initialed and placed in chart.
[2024-12-15 11:00] VITALS: BP 118/75; PULSE 66; RESP 20; TEMP 36.5; O2SAT 96
--- NOTE | 2024-12-15 11:06 | P.DS_ITS ---
Discharge Providers Date of Admission: 12/11/24 18:54 Date of Discharge: December 15, 2024 Attending Provider at Admission: Gildardo Bryan MD Attending Provider at Discharge: Gildardo Bryan MD Primary Care Provider: Adrienne March DO Diagnoses at Discharge Discharge Diagnosis (1) Acute encephalopathy: Status: Acute (2) Acute on chronic respiratory failure with hypoxia and hypercapnia: Status: Acute (3) COPD exacerbation: Status: Acute (4) Pneumonia: Status: Resolved (5) CHF exacerbation: Status: Acute Reason for Visit Reason for Visit: weakness, sob Hospital Course Hospital Course Tiffany Gaffney is a 79 year old female with a past medical history of CAD, CHF, sinus bradycardia, diastolic CHF, seizure disorder, type 2 diabetes, hypothyroidism, CKD, chronic anticoagulation Eliquis, history of CVA who presents [facility] for complaints of shortness of breath, altered mental status. Currently patient alert to person, to place, not to time she can follow commands, history taking is difficult given her confusion, but she can answer basic yes or no questions family numbers at bedside help with the history taking. Patient lives at home with her , and her son, she has been feeling increasingly short of breath, has had a cough, increased confusion, she does not smoke, no chest pain, she saw her primary care provider for shortness of breath and increased confusion, and so she was given antibiotics but was not able to pick them up as of yet, due to increased shortness of breath, she uses oxygen at home I was unable to make out how much she uses, no history of sleep apnea no history of CPAP use at home Patient presents [facility] for acute hypoxic respiratory failure secondary to COPD, pneumonia, CHF, prolonged hospital stay, required ICU admission, diuresis, IV antibiotics, IV steroids, overall clinically improved. Will be discharged on Decadron burst, doxycycline, Lasix with potassium, with close follow-up with primary care provider as outpatient. Creatinine on discharge 1.6, potassium 3.6. Patient did not qualify for BiPAP as inpatient, follow-up with outpatient physician for sleep study. A case of emergency hypercarbia, resolved. Physical Exam Const: COMMON NORMALS: no acute distress and patient oriented x3 Resp: COMMON NORMALS: normal respiratory effort, No retractions, No use of accessory muscles and clear to auscultation bilaterally AUSCULTATION: clear to auscultation bilaterally Cardio: COMMON NORMALS: regular rate, regular rhythm, S1 normal heart sound present and S2 normal heart sound present RATE: regular rate RHYTHM: regular rhythm HEART SOUNDS: S1 normal heart sound present and S2 normal heart sound present GI: COMMON NORMALS: Normal to inspection, nondistended, normoactive bowel sounds present Extremity: COMMON NORMALS: no pedal edema Neuro: COMMON NORMALS: patient oriented x3 Psych: COMMON NORMALS: mental status grossly normal Urinary Catheter Management: Siddiqi: Cath Placed During This Visit: yes, but has since been removed by the nurse Reason for Continuing Indwelling Catheter: Decision to DC Catheter Urinary Catheter Date of Insertion: 12/11/24 Urinary Catheter Time of Insertion: 21:30 Date Urinary Catheter Removed: 12/15/24 Time Urinary Catheter Discontinued: 08:30 Discharge Data Studies Completed and Pending Completed Studies During Hospitalization Category Date Time Status XR chest 1V portable [id number] Routine Exams 12/13/24 07:00 Completed XR chest 1V portable [id number] Stat Exams 12/11/24 16:22 Completed Pending at discharge Category Date Time Status Blood Culture Stat Lab 12/11/24 18:33 Results Complete Blood Count w/Auto AM LABS Lab 12/16/24 04:00 Ordered Complete Blood Count w/Auto AM LABS Lab 12/17/24 04:00 Ordered Comprehensive Metabolic Panel AM LABS Lab 12/16/24 04:00 Ordered Comprehensive Metabolic Panel AM LABS Lab 12/17/24 04:00 Ordered Radiology Impressions Chest X-Ray 12/13/24 07:00 IMPRESSION: Improvement but persistent cardiac decompensation. Laboratory Results WBC 9.03 10^3/uL (3.29-11.43) 12/15/24 05:05 RBC 3.55 10^6/uL (3.85-5.65) L 12/15/24 05:05 Hgb 10.80 g/dL (11.27-16.99) L 12/15/24 05:05 Hct 35.9 % (36-47) L 12/15/24 05:05 MCV 101.1 fl (85-98) H 12/15/24 05:05 MCH 30.4 pg (27-33) 12/15/24 05:05 MCHC 30.1 g/dL (30-55) 12/15/24 05:05 RDW 13.5 % (12.1-15.1) 12/15/24 05:05 Plt Count 294 10^3/cmm (157-399) 12/15/24 05:05 MPV 8.7 fL (7.4-10.4) 12/15/24 05:05 Neut % (Auto) 59.7 % 12/15/24 05:05 Lymph % (Auto) 23.3 % 12/15/24 05:05 [place] % (Auto) 11.6 % 12/15/24 05:05 Eos % (Auto) 3.9 % 12/15/24 05:05 Baso % (Auto) 0.6 % 12/15/24 05:05 Neut # (Auto) 5.40 10^3/uL (1.8-7.7) 12/15/24 05:05 Lymph # (Auto) 2.1 10^3/uL (0.8-4.8) 12/15/24 05:05 [place] # (Auto) 1.1 10^3/uL (0.2-0.9) H 12/15/24 05:05 Eos # (Auto) 0.4 10^3/uL (0.0-0.8) 12/15/24 05:05 Baso # (Auto) 0.1 10^3/uL (0.0-0.1) 12/15/24 05:05 Nucleated RBC % (auto) 0 % 12/15/24 05:05 Nucleated RBCs # 0.0 /100WBC 12/15/24 05:05 Specimen Type Arterial 12/11/24 17:09 Sample Site Brachial, right 12/11/24 17:09 ABG pH 7.31 (7.35-7.45) L 12/11/24 17:09 ABG pCO2 71.8 mmHg (35-45) H* 12/11/24 17:09 ABG pO2 58.4 mmHg (80.0-100.0) L 12/11/24 17:09 ABG PO2/FiO2 Ratio 182 12/11/24 17:09 ABG HCO3 35.8 mmol/L (22-26) H 12/11/24 17:09 ABG O2 Saturation 88.6 12/11/24 17:09 ABG Base Excess 7.4 mmol/L (-2.0-2.0) H 12/11/24 17:09 Eliazar Test N/a 12/11/24 17:09 A-a O2 Gradient 10.8 mmHg (5-10) H 12/11/24 17:09 Hematocrit 34.6 % (37-47) L 12/11/24 17:09 Hgb O2 Saturation 86.8 % (95-100) L 12/11/24 17:09 Carboxyhemoglobin 1.2 %THgb (0.4-20.1) 12/11/24 17:09 Methemoglobin 0.8 % (0.4-1.5) 12/11/24 17:09 Total Hemoglobin 11.3 g/dL (12-16) L 12/11/24 17:09 Sodium 142.0 mmol/L (131-143) 12/11/24 17:09 Potassium 4.0 mmol/L (3.5-5.0) 12/11/24 17:09 Glucose 135.0 mg/dL (70-115) H 12/11/24 17:09 Ionized Calcium 1.2 mmol/L (1.1-1.4) 12/11/24 17:09 O2 Delivery Device Nc 12/11/24 17:09 O2 Liters/Min 3.0 % 12/11/24 17:09 FiO2 32.0 % 12/11/24 17:09 [employer] ID [email or web address] 12/11/24 17:09 Sodium 140 mmol/L (136-145) 12/15/24 05:05 Potassium 3.6 mmol/L (3.5-5.1) 12/15/24 05:05 Chloride 93 mmol/L (98-107) L 12/15/24 05:05 Carbon Dioxide 34 mmol/L (22-29) H 12/15/24 05:05 Anion Gap 16.6 (5-19) 12/15/24 05:05 BUN 34 mg/dL (8-23) H 12/15/24 05:05 Creatinine 1.6 mg/dL (0.5-0.9) H 12/15/24 05:05 GFR Calculation Not Reportable 12/15/24 05:05 Glucose 170 mg/dL (65-115) H 12/15/24 05:05 POC Glucose 166 mg/dL (70-110) H 12/15/24 06:43 Estimat Average Glucose 166 12/12/24 04:10 Hemoglobin A1c 7.4 % (4.0-6.0) H 12/12/24 04:10 Calculated Osmolality 302 mOsm/kg (285-295) H 12/15/24 05:05 Lactic Acid 1.6 mmol/L (0.5-2.2) 12/11/24 16:50 Calcium 8.3 mg/dL (8.5-10.5) L 12/15/24 05:05 Phosphorus 4.3 mg/dL (2.5-4.5) 12/14/24 04:47 Magnesium 2.1 mg/dL (1.7-2.3) 12/14/24 04:47 Total Bilirubin 0.2 mg/dL (0.15-1.2) 12/15/24 05:05 AST 18 U/L (0-32) 12/15/24 05:05 ALT 16 U/L (0-33) 12/15/24 05:05 Alkaline Phosphatase 109 U/L (35-105) H 12/15/24 05:05 Troponin T Baseline 20 ng/L (0-10) H 12/11/24 16:30 Troponin T 120 Minute 20.25 ng/L (0-10) H 12/11/24 18:33 Delta Troponin T 0.25 ABS# (0-10) 12/11/24 18:33 Troponin T Hi Sens 6Hr 19.77 ng/L (0-10) H 12/11/24 22:24 Troponin T Hi Sens 6Hr Delta -0.23 ng/L (0-12) L 12/11/24 22:24 C-Reactive Protein 54.0 mg/L (0.0-4.9) H 12/11/24 16:50 NT-Pro-B Natriuret Pep 1412 pg/mL (0-450) H 12/15/24 05:05 Total Protein 7.5 g/dL (6.6-8.7) 12/15/24 05:05 Albumin 3.5 g/dL (3.5-5.2) 12/15/24 05:05 Globulin 4.0 g/dL (1.3-4.6) 12/15/24 05:05 Procalcitonin 0.09 ng/mL (0-0.5) 12/11/24 16:50 TSH 3.25 uIU/mL (0.27-4.20) 12/11/24 16:50 Urine Color Yellow (Yellow) 12/11/24 16:42 Urine Appearance Clear (CLEAR) 12/11/24 16:42 Urine pH 5.0 (5-7) 12/11/24 16:42 Ur Specific [place] 1.006 (1.005-1.030) 12/11/24 16:42 Urine Protein Negative (Negative) 12/11/24 16:42 Urine Glucose (UA) Negative (Normal) 12/11/24 16:42 Urine Ketones Negative (Negative) 12/11/24 16:42 Urine Blood Negative (Negative) 12/11/24 16:42 Urine Nitrate Negative (Negative) 12/11/24 16:42 Urine Bilirubin Negative (Negative) 12/11/24 16:42 Urine Urobilinogen 0.2 mg/dL (Negative) 12/11/24 16:42 Ur Leukocyte Esterase Negative (Negative) 12/11/24 16:42 Urine RBC 0-2 /hpf (0-2) 12/11/24 16:42 Urine WBC 0-5 /hpf (0-5) 12/11/24 16:42 Ur Squamous Epith Cells 0-5 /hpf (0-5) 12/11/24 16:42 Amorphous Sediment Not Reportable 12/11/24 16:42 Urine Bacteria None seen /hpf (NONE) 12/11/24 16:42 Hyaline Casts 2.05 /lpf 12/11/24 16:42 Influenza A (PCR) Negative (Negative) 12/11/24 17:00 Influenza Type B (PCR) Negative (Negative) 12/11/24 17:00 RSV (PCR) Negative (Negative) 12/11/24 17:00 SARS-CoV-2 (PCR) Negative (Negative) 12/11/24 17:00 Group A Strep Rapid Negative (Negative) 12/11/24 17:00 Vitals Last Vital Signs Temp 97.5 F L 12/15/24 08:00 Pulse 80 12/15/24 08:40 Resp 16 12/15/24 08:40 BP 116/65 12/15/24 08:00 Pulse Ox 98 12/15/24 08:40 O2 Del Method Nasal Cannula 12/15/24 08:40 O2 Flow Rate 2 12/15/24 08:40 FiO2 30 12/13/24 03:24 Discharge Plan Discharge Patient Disposition: Home Condition: Stable Prescriptions: New dexamethasone 4 mg tablet 4 mg PO DAILY 3 Days Qty: 3 0RF doxycycline hyclate 100 mg tablet 100 mg PO BID 5 Days Qty: 10 0RF Continued phenytoin sodium extended [Dilantin Extended] 100 mg capsule 300 mg PO BID fluticasone propionate 50 mcg/actuation spray,suspension 1 spray INTRANASAL DAILY PRN (Reason: allergies) gabapentin 300 mg capsule 300 mg PO TID esomeprazole magnesium [Nexium] 20 mg capsule,delayed release(DR/EC) 20 mg PO DAILY oxycodone-acetaminophen [Percocet] 10-325 mg tablet 1 tab PO Q4H PRN (Reason: Pain) desvenlafaxine succinate [Pristiq] 50 mg tablet extended release 24 hr 50 mg PO DAILY cetirizine [Zyrtec] 10 mg tablet 10 mg PO DAILY PRN (Reason: Allergy Symptoms) ergocalciferol (vitamin D2) [Vitamin D2] 1,250 mcg (50,000 unit) Capsule 1,250 mcg PO Q7D Rx Instructions: ON WEDNESDAYS potassium chloride 20 mEq Tablet Extended Release 20 meq PO DAILY metformin 500 mg tablet 500 mg PO BID Eliquis 5 mg tablet 5 mg PO BID levothyroxine 125 mcg tablet 125 mcg PO DAILY Trulicity 1.5 mg/0.5 mL pen injector 0.5 mg SUBCUT Q7D aspirin [Aspir-81] 81 mg Tablet,Delayed Release (Dr/Ec) 81 mg PO DAILY atorvastatin 40 mg tablet 40 mg PO DAILY Qty: 30 0RF furosemide 40 mg tablet 40 mg PO DAILY metoprolol succinate 25 mg tablet extended release 24 hr 25 mg PO DAILY azelastine 137 mcg (0.1 %) spray,non-aerosol 2 spray INTRANASAL BID Discontinued azithromycin 250 mg tablet See Rx Instructions .ROUTE .COMPLEX Rx Instructions: Take per package instructions. clopidogrel 75 mg tablet 75 mg PO DAILY Qty: 30 0RF lisinopril 5 mg tablet 5 mg PO DAILY Discharge Orders: Discharge Order (Routine); Ordered 12/15/24 Ordered By: Gildardo Bryan Referrals: Adrienne March DO [Primary Care Provider] - Discharge Diet: Cardiac Discharge Activity: Resume usual activity Patient Instructions: Opioid Safety Activity Restrictions/Additional Instructions: Discharge Attestations Time Spent in Discharge Care*: greater than 30 min Quality Metrics Clinical Quality Measures [ No reported AMI, CVA or VTE this stay] Coding Level of Care Code 24896 Total time (in minutes) for Discharge: 45 Diagnoses Acute encephalopathy G93.40 Acute on chronic respiratory failure with hypoxia and hypercapnia J96.21; J96.22 COPD exacerbation J44.1 Pneumonia J18.9 CHF exacerbation I50.9
--- NOTE | 2024-12-15 12:46 | PC.NURSE ---
Discharge Note Patient discharged to home via private vehicle accompanied by sister. Discharge instructions reviewed with patient and/or compliance representative dealer. Mobile pharmacy medications and/or prescriptions provided. Belongings/home medications returned.
[2024-12-15 13:06] LABS: Glucose Point of Care 266 mg/dL (70-110)
[2024-12-15 13:17] VITALS: BP 118/75; PULSE 66; RESP 20; TEMP 36.5; O2SAT 96
== END 2024-12-15 12:15 | disposition home or self-care (01) | DRG 193 ==
LOC: ER 18:14 → ICU 18:54 → MEDSURG 12-13 14:40
PROVIDERS: Admitting Provider Family Medicine; Emergency Provider Family Medicine; PCP Family Medicine; Visit Provider Family Medicine
DX: J18.9 Pneumonia, unspecified organism (principal); I50.33 Acute on chronic diastolic (congestive) heart failure; J96.22 Acute and chronic respiratory failure with hypercapnia; J96.21 Acute and chronic respiratory failure with hypoxia; I13.0 Hypertensive heart and chronic kidney disease with heart failure and stage 1 through stage 4 chronic kidney disease, or unspecified chronic kidney disease; G93.40 Encephalopathy, unspecified; J44.1 Chronic obstructive pulmonary disease with (acute) exacerbation; J44.0 Chronic obstructive pulmonary disease with (acute) lower respiratory infection; Z68.41 Body mass index [BMI] 40.0-44.9, adult; N18.9 Chronic kidney disease, unspecified; I25.10 Atherosclerotic heart disease of native coronary artery without angina pectoris; G40.909 Epilepsy, unspecified, not intractable, without status epilepticus; E13.22 Other specified diabetes mellitus with diabetic chronic kidney disease; E03.9 Hypothyroidism, unspecified; Z79.01 Long term (current) use of anticoagulants; Z86.73 Personal history of transient ischemic attack (TIA), and cerebral infarction without residual deficits; Z99.81 Dependence on supplemental oxygen; Z79.891 Long term (current) use of opiate analgesic; Z79.84 Long term (current) use of oral hypoglycemic drugs; Z79.85 Long-term (current) use of injectable non-insulin antidiabetic drugs; Z79.82 Long term (current) use of aspirin; I35.0 Nonrheumatic aortic (valve) stenosis; E78.5 Hyperlipidemia, unspecified; E66.01 Morbid (severe) obesity due to excess calories
CPT/HCPCS: 36415; 36416; 36600; 51702; 71045; 80048; 80051; 80053; 81001; 82330; 82805; 82962; 83036; 83605; 83735; 83880; 84100; 84145; 84443; 84484; 85025; 86140; 87040; 87077; 87081; 87186; 87637; 87880; 93005; 94640; 94660; 94664; 96372; 96374; 96376; 97116; 97161; 97530; 99291; J0456; J0696; J1100; J1815; J1940; J2405; J2470; J2543; J7050; J9999; Q0144

== ENCOUNTER 2025-03-21 13:36 | Emergency (ER) | payer MEDICARE, SELFPAY ==
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
--- NOTE | 2025-03-21 13:40 | XR_ITS ---
WS: [id number] XR chest 1V portable [id number] REASON FOR EXAM: sob FINDINGS: The chest is unchanged compared to 12/12/2024. Mild to moderate cardiomegaly. Normal thoracic aorta. Calcified granulomatous disease in both hemithoraces. Mild central pulmonary venous congestion. There is blunting of the right costophrenic angle. There is minimal peribronchial cuffing. No definite pulmonary edema or other acute pulmonary parenchymal abnormality. XR/XR chest 1V portable [id number] IMPRESSION: Cardiomegaly with pulmonary venous hypertension. Blunting of the right costophr enic angle. Stable compared to the examination of 12/13/2024.
--- NOTE | 2025-03-21 13:41 | ECG_ITS ---
[facility] Test Date: 2025-03-21 Pat Name: Tiffany Gaffney Department: Room: Gender: Female Cigarette Stamper: : 1945 Requested By: Sofía Ferreira Order Number: [id number] Cristy MD: Tariq Cannon M.D. Measurements Intervals Conroy Rate: 69 P: 0 MI: 0 QRS: 230 QRSD: 154 T: -32 QT: 459 QTc: 495 Interpretive Statements ATRIAL FIBRILLATION RIGHT AXIS DEVIATION [QRS AXIS > 100] RIGHT BUNDLE BRANCH BLOCK [120+ ms QRS DURATION, UPRIGHT V1, 40+ ms S IN I/aVL/V4/V5/V6] MODERATE T-WAVE ABNORMALITY, CONSIDER LATERAL ISCHEMIA [-0.1+ mV T-WAVE IN I/aVL/V5/V6] MODERATE T-WAVE ABNORMALITY, CONSIDER INFERIOR ISCHEMIA [-0.1+ mV T-WAVE IN II/aVF] Compared to ECG 12/12/2024 02:23:40 Myocardial infarct finding no longer present T-wave abnormality still present Possible ischemia still present Electronically Signed On 03-22-2025 08:54:31 CDT by Tariq Cannon M.D. [email or web address]
[2025-03-21 13:47] VITALS: BP 143/80; PULSE 61; RESP 18; TEMP 36.7; O2SAT 95; BMI 40.6
--- OUTSIDE RECORDS SUMMARY | 2025-03-21 13:50 | XMS_ITS | Encounter Summary ---
Author Organization [facility] Address [address] [place] [address] Care Team Providers Care Salesforce Consultant Name Role Phone Adrienne March DO Primary Care Provider +1- [phone] Encounter Details Date Type Department Care Team (Latest Contact Info) Description 01/31/2003 Outpatient Historical [facility] Jose Luis Mcmillan MD [address] [place] [address] BRACHIAL NEURITIS NOS (Primary Dx); CERVICALGIA; Cervical spondylosis Social History Tobacco Use Types Packs/Day Years Used Date Smoking Tobacco: Never Assessed Comments Unknown Sex and Gender Information Value Date Recorded Sex Assigned at Not on file Legal Sex Female 3:34 AM SOLE LAYER Gender Identity Not on file Sexual Orientation Not on file documented as of this encounter Plan of Treatment Not on file documented as of this encounter Visit Diagnoses Diagnosis Brachial neuritis or radiculitis NOS- Primary Brachial neuritis or radiculitis nos Cervicalgia Cervical spondylosis Cervical spondylosis without myelopathy documented in this encounter Care Teams Salesforce Consultant Relationship Specialty Start Date End Date Adrienne March DO [address] [place] [address] PCP - General Family Practice 06/30/10 documented as of this encounter
--- OUTSIDE RECORDS SUMMARY | 2025-03-21 13:50 | XMS_ITS | Encounter Summary ---
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
--- OUTSIDE RECORDS SUMMARY | 2025-03-21 13:50 | XMS_ITS | Encounter Summary ---
Author Organization [facility] Address [address] [place] [address] Care Team Providers Care Automobile Appraiser Name Role Phone Adrienne March DO Primary Care Provider [phone] Encounter Details Date Type Department Care Team (Latest Contact Info) Description 11/27/2003 Outpatient [facility] [address] [address] Jose Luis Mcmillan MD [address] [place] [address] CERVICAL SPONDYLOSIS (Primary Dx) Social History Tobacco Use Types Packs/Day Years Used Date Smoking Tobacco: Never Assessed Comments Unknown Sex and Gender Information Value Date Recorded Sex Assigned at Not on file 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
--- OUTSIDE RECORDS SUMMARY | 2025-03-21 13:50 | XMS_ITS | Encounter Summary ---
Author Organization [facility] Address [address] [place] [address] Care Team Providers Care Technology Project Manager Name Role Phone Adrienne March DO Primary Care Provider Encounter Details Date Type Department Care Team (Latest Contact Info) Description 10/26/[address] 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
--- OUTSIDE RECORDS SUMMARY | 2025-03-21 13:50 | XMS_ITS | Encounter Summary ---
Author Organization 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
--- OUTSIDE RECORDS SUMMARY | 2025-03-21 13:50 | XMS_ITS | Encounter Summary ---
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
--- OUTSIDE RECORDS SUMMARY | 2025-03-21 13:50 | XMS_ITS | Encounter Summary ---
Author Organization [facility] Address [address] [place] [address] Care Team Providers Care Incident Handler Name Role Phone Adrienne March DO Primary Care Provider Encounter Details Date Type Department Care Team (Latest Contact Info) Description 06/22/2003 Outpatient Historical [facility] Physical Therapy [address] [address] [place] [address] Wilfredo Michel MD [address] [phone] CERVICALGIA (Primary Dx) Social History Tobacco Use Types Packs/Day Years Used Date Smoking Tobacco: Never Assessed Comments Unknown Sex and Gender Information Value Date Recorded Sex Assigned at Not on file 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
--- OUTSIDE RECORDS SUMMARY | 2025-03-21 13:50 | XMS_ITS | Encounter Summary ---
Author Organization [facility] Address [address] [place] [address] Care Team Providers Care Hardware Developer Name Role Phone Adrienne March DO Primary Care Provider +1- [phone] Encounter Details Date Type Department Care Team (Latest Contact Info) Description 03/27/2003 Outpatient Historical [facility] Jose Luis Mcmillan MD [address] [place] [address] Cervical spondylosis (Primary Dx); CERVICALGIA Social History Tobacco Use Types Packs/Day Years Used Date Smoking Tobacco: Never Assessed Comments Unknown Sex and Gender Information Value Date Recorded Sex Assigned at Not on file 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
--- OUTSIDE RECORDS SUMMARY | 2025-03-21 13:50 | XMS_ITS | Encounter Summary ---
Author Organization [facility] Address [address] [place] [address] Care Team Providers Care Director Print Name Role Phone Adrienne March DO Primary Care Provider +1- [phone] Encounter Details Date Type Department Care Team (Latest Contact Info) Description 04/30/2003 Outpatient Historical [facility] Wilrfedo Michel MD [address] [phone] MONONEURITIS NOS (Primary Dx) Social History Tobacco Use Types Packs/Day Years Used Date Smoking Tobacco: Never Assessed Comments Unknown Sex and Gender Information Value Date Recorded Sex Assigned at Not on file Legal Sex Female 3:34 AM CITY SOLICITOR Gender Identity Not on file Sexual Orientation Not on file documented as of this encounter Plan of Treatment Not on file documented as of this encounter Visit Diagnoses Diagnosis Mononeuritis of unspecified site- Primary documented in this encounter Care Teams Director Print Relationship Specialty Start Date End Date Adrienne March DO [address] [place] [address] PCP - General Family Practice 06/30/10 documented as of this encounter
--- OUTSIDE RECORDS SUMMARY | 2025-03-21 13:50 | XMS_ITS | Encounter Summary ---
Author Organization [facility] Address [address] [place] [address] Care Team Providers Care Cylinder Head Assembler Name Role Phone Adrienne March DO Primary Care Provider +1- [phone] Encounter Details Date Type Department Care Team (Latest Contact Info) Description 02/13/2003 Outpatient Historical [facility] Jose Luis Mcmillan MD [address] [place] [address] CERVICALGIA (Primary Dx); Cervical disc displacmnt; Cervical spondylosis; Cervical spinal stenosis Social History Tobacco Use Types Packs/Day Years Used Date Smoking Tobacco: Never Assessed Comments Unknown Sex and Gender Information Value Date Recorded Sex Assigned at Not on file 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 Sex Female 3:34 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 Gender Identity Not on file Sexual Orientation Not on file documented as of this encounter Plan of Treatment Not on file documented as of this encounter Visit Diagnoses Diagnosis Cervicalgia- Primary Cervical disc displacmnt Displacement of cervical intervertebral disc without myelopathy Cervical spondylosis Cervical spondylosis without myelopathy Cervical spinal stenosis Spinal stenosis in cervical region documented in this encounter Care Teams Cylinder Head Assembler Relationship Specialty Start Date End Date Adrienne March DO [address] [place] [address] PCP - General Family Practice 06/30/10 documented as of this encounter
--- OUTSIDE RECORDS SUMMARY | 2025-03-21 13:50 | XMS_ITS | Encounter Summary ---
Author Organization [facility] Address [address] [place] [address] Care Team Providers Care Thoroughbred Horse Farm Manager Name Role Phone Adrienne March DO Primary Care Provider Encounter Details Date Type Department Care Team (Latest Contact Info) Description 04/30/2003 [facility] [address] [place] [address] Wilfredo Michel MD [address] [address] BRACHIAL NEURITIS NOS (Primary Dx); MYALGIA AND MYOSITIS NOS Social History Tobacco Use Types Packs/Day Years Used Date Smoking Tobacco: Never Assessed Comments Unknown Sex and Gender Information Value Date Recorded Sex Assigned at Not on file 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
--- OUTSIDE RECORDS SUMMARY | 2025-03-21 13:50 | XMS_ITS | Encounter Summary ---
Author Organization [facility] Address [address] [place] [address] Care Team Providers Care Solderer Barrel Ribs Name Role Phone Adrienne March DO Primary Care Provider Encounter Details Date Type Department Care Team (Late st Contact Info) Description 02/03/2003 Outpatient Historical [facility] Imaging Services [address] [place] [phone] Jose Luis Mcmillan MD [address] [place] [address] Social History Tobacco Use Types Packs/Day Years Used Date Smoking Tobacco: Never Assessed Comments Unknown Sex and Gender Information Value Date Recorded Sex Assigned at Not on file 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
--- OUTSIDE RECORDS SUMMARY | 2025-03-21 13:50 | XMS_ITS | Encounter Summary ---
Author Organization [facility] Address [address] [place] [address] Care Team Providers Care Plant Worker Name Role Phone Adrienne March DO Primary Care Provider Encounter Details Date Type Department Care Team (Latest Contact Info) Description 09/27/2003 Outpatient Historical [facility] Orthopedics- 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 Gender Identity Not on file Sexual Orientation Not on file documented as of this encounter Plan of Treatment Not on file documented as of this encounter Visit Diagnoses Diagnosis Cervical spondylosis- Primary Cervical spondylosis without myelopathy Cervicalgia Cervical spinal stenosis Spinal stenosis in cervical region Brachial neuritis or radiculitis NOS Brachial neuritis or radiculitis nos documented in this encounter Care Teams Plant Worker Relationship Specialty Start Date End Date Adrienne March DO [address] [place] [address] PCP - General Family Practice 06/30/10 documented as of this encounter
--- OUTSIDE RECORDS SUMMARY | 2025-03-21 13:50 | XMS_ITS | Encounter Summary ---
Author Organization [facility] Address [address] [place] [address] Care Team Providers Care Laborer Stores Name Role Phone Adrienne March DO Primary Care Provider Encounter Details Date Type Department Care Team (Latest Contact Info) Description 03/16/[address] [facility] [address] [place] [phone] Wilfredo Michel MD [address] [address] BRACHIAL NEURITIS NOS (Primary Dx) Social History Tobacco Use Types Packs/Day Years Used Date Smoking Tobacco: Never Assessed Comments Unknown Sex and Gender Information Value Date Recorded Sex Assigned at Not on file Legal Sex Female 3:34 AM SERVICE DISPATCHER Gender Identity Not on file Sexual Orientation Not on file documented as of this encounter Plan of Treatment Not on file documented as of this encounter Visit Diagnoses Diagnosis Brachial neuritis or radiculitis NOS- Primary Brachial neuritis or radiculitis nos documented in this encounter Care Teams Laborer Stores Relationship Specialty Start Date End Date Adrienne March DO [address] [place] [address] PCP - General Family Practice 06/30/10 documented as of this encounter
--- OUTSIDE RECORDS SUMMARY | 2025-03-21 13:50 | XMS_ITS | Encounter Summary ---
Author Organization [facility] Address [address] [place] [address] Care Team Providers Care Kier Drier Name Role Phone Adrienne March DO Primary Care Provider [phone] Encounter Details Date Type Department Care Team (Latest Contact Info) Description 05/22/2003 Outpatient Historical [facility] Physical Therapy [address] [place] [address] [place] [phone] Wilfredo Michel MD [address] [phone] CERVICALGIA (Primary Dx) Social History Tobacco Use Types Packs/Day Years Used Date Smoking Tobacco: Never Assessed Comments Unknown Sex and Gender Information Value Date Recorded Sex Assigned at Not on file 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
--- OUTSIDE RECORDS SUMMARY | 2025-03-21 13:50 | XMS_ITS | Encounter Summary ---
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
--- OUTSIDE RECORDS SUMMARY | 2025-03-21 13:50 | XMS_ITS | Encounter Summary ---
Author Organization [facility] Address [address] [place] [address] Care Team Providers Care Senior Datastage Developer Name Role Phone Adrienne March DO Primary Care Provider Encounter Details Date Type Department Care Team (Latest Contact Info) Description 04/21/2003 Outpatient Historical [facility] Physical Therapy [address] [place] [address] [place] [phone] Wilfredo Michel MD [address] [phone] CERVICALGIA (Primary Dx) Social History Tobacco Use Types Packs/Day Years Used Date Smoking Tobacco: Never Assessed Comments Unknown Sex and Gender Information Value Date Recorded Sex Assigned at Not on file Legal Sex Female 3:34 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
--- OUTSIDE RECORDS SUMMARY | 2025-03-21 13:50 | XMS_ITS | Encounter Summary ---
Author Organization [facility] Address [address] [place] [address] Care Team Providers Care Marketing Planner Name Role Phone Adrienne March DO Primary Care Provider +1- [phone] Encounter Details Date Type Department Care Team (Late st Contact Info) Description 04/24/2003 Outpatient Historical [facility] Social History Tobacco Use Types Packs/Day Years Used Date Smoking Tobacco: Never Assessed Comments Unknown Sex and Gender Information Value Date Recorded Sex Assigned at Not on file Legal Sex Female 3:34 AM VOICE OVER ARTIST Gender Identity Not on file Sexual Orientation Not on file documented as of this encounter Plan of Treatment Not on file documented as of this encounter Visit Diagnoses Not on filedocumented in this encounter Care Teams Marketing Planner Relationship Specialty Start Date End Date Adrienne March DO [address] [place] [address] PCP - General Family Practice 06/30/10 documented as of this encounter
--- OUTSIDE RECORDS SUMMARY | 2025-03-21 13:50 | XMS_ITS | Encounter Summary ---
Author Organization [facility] Address [address] [place] [address] Care Team Providers Care Epic Director Name Role Phone Adrienne March DO Primary Care Provider +1- [phone] Encounter Details Date Type Department Care Team (Late st Contact Info) Description 10/01/2003 Inpatient Historical [facility] Jose Luis Mcmillan MD [address] [place] [address] CERVICAL DISC DISPLACMNT (Primary Dx) Social History Tobacco Use Types Packs/Day Years Used Date Smoking Tobacco: Never Assessed Comments Unknown Sex and Gender Information Value Date Recorded Sex Assigned at Not on file Legal Sex Female 3:34 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
--- OUTSIDE RECORDS SUMMARY | 2025-03-21 13:50 | XMS_ITS | Encounter Summary ---
Author Organization [facility] Address [address]: [place] [address] Care Team Providers Care Chief Cloth Finishing Range Operator Name Role Phone Adrienne March DO Primary Care Provider +1- [phone] Encounter Details Date Type Department Care Team (Late st Contact Info) Description 11/14/2001 Outpatient Historical Ilana Torres MD [address] [place] [address] Social History Tobacco Use Types Packs/Day Years Used Date Smoking Tobacco: Never Assessed Comments Unknown Sex and Gender Information Value Date Recorded Sex Assigned at Not on file Legal Sex Female 3:34 AM PROBATION OFFICER Gender Identity Not on file Sexual Orientation Not on file documented as of this encounter Plan of Treatment Not on file documented as of this encounter Visit Diagnoses Not on filedocumented in this encounter Care Teams Chief Cloth Finishing Range Operator Relationship Specialty Start Date End Date Adrienne March DO [address] [place] [address] PCP - General Family Practice 06/30/10 documented as of this encounter
--- OUTSIDE RECORDS SUMMARY | 2025-03-21 13:51 | XMS_ITS | Encounter Summary ---
Author Organization [facility] Address [address] [place] [address] Care Team Providers Care Cork Insulation Installer Name Role Phone Adrienne March DO Primary Care Provider [phone] Encounter Details Date Type Department Care Team (Latest Contact Info) Description 07/15/2001 Outpatient Historical [facility] [address] [phone] Lesly Jones MD NO ADDRESS ON FILE Other screening mammogram (Primary Dx) Social History Tobacco Use Types Packs/Day Years Used Date Smoking Tobacco: Never Assessed Comments Unknown Sex and Gender Information Value Date Recorded Sex Assigned at Not on file 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
--- OUTSIDE RECORDS SUMMARY | 2025-03-21 13:51 | XMS_ITS | Encounter Summary ---
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
--- OUTSIDE RECORDS SUMMARY | 2025-03-21 13:51 | XMS_ITS | Encounter Summary ---
Author Organization [facility] Address [address] [place] [address] Care Team Providers Care Rate Manager Name Role Phone Adrienne March DO Primary Care Provider [phone] Encounter Details Date Type Department Care Team (Latest Contact Info) Description 03/29/2007 Outpatient Historical [facility] Gen Spec Surg 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
--- OUTSIDE RECORDS SUMMARY | 2025-03-21 13:51 | XMS_ITS | Encounter Summary ---
Author Organization [facility] Address [address] [place]: [place] [address] Care Team Providers Care Digital Production Operator Name Role Phone Adrienne March DO Primary Care Provider +1- [phone] Encounter Details Date Type Department Care Team (Late st Contact Info) Description 07/08/2001 Outpatient Historical Abel Hurtado, DPM NO ADDRESS ON FILE Social History Tobacco Use Types Packs/Day Years Used Date Smoking Tobacco: Never Assessed Comments Unknown Sex and Gender Information Value Date Recorded Sex Assigned at Not on file Legal Sex Female 3:34 AM ORDER TAKERS SUPERVISOR Gender Identity Not on file Sexual Orientation Not on file documented as of this encounter Plan of Treatment Not on file documented as of this encounter Visit Diagnoses Not on filedocumented in this encounter Care Teams Digital Production Operator Relationship Specialty Start Date End Date Adrienne March DO [address] [facility] [place] [address] PCP - General Family Practice 06/30/10 documented as of this encounter
--- OUTSIDE RECORDS SUMMARY | 2025-03-21 13:51 | XMS_ITS | Encounter Summary ---
Author Organization [facility] Address [address] [place] [address] Care Team Providers Care Paste Up Worker Name Role Phone Adrienne March DO Primary Care Provider Encounter Details Date Type Department Care Team (Latest Contact Info) Description 03/21/[address] [facility] Physical Therapy [address] [place] [address] [place] [phone] Wilfredo Michel MD [address] [phone] CERVICALGIA (Primary Dx) Social History Tobacco Use Types Packs/Day Years Used Date Smoking Tobacco: Never Assessed Comments Unknown Sex and Gender Information Value Date Recorded Sex Assigned at Not on file Legal Sex Female 3:34 AM WAREHOUSE DIRECTOR Gender Identity Not on file Sexual Orientation Not on file documented as of this encounter Plan of Treatment Not on file documented as of this encounter Visit Diagnoses Diagnosis Cervicalgia- Primary documented in this encounter Care Teams Paste Up Worker Relationship Specialty Start Date End Date Adrienne March DO [address] [place] [address] PCP - General Family Practice 06/30/10 documented as of this encounter
--- OUTSIDE RECORDS SUMMARY | 2025-03-21 13:51 | XMS_ITS | Encounter Summary ---
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
--- OUTSIDE RECORDS SUMMARY | 2025-03-21 13:51 | XMS_ITS | Encounter Summary ---
Author Organization [facility] Address [address] 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
--- OUTSIDE RECORDS SUMMARY | 2025-03-21 13:51 | XMS_ITS | Encounter Summary ---
Author Organization [facility] Address [address] [place] [address] Care Team Providers Care Loom Inspector Name Role Phone Adrienne March DO Primary Care Provider Encounter Details Date Type Department Care Team (Late st Contact Info) Description 12/16/2017 Ancillary Orders [facility] Ear, Nose and Throat [address] [place] [phone] DO NO ADDRESS ON FILE Multinodular goiter; Hoarse voice quality; Dysphagia, oropharyngeal Social History Tobacco Use Types Packs/Day Years Used Date Smoking Tobacco: Passive Smo ke Exposure - Never Smoker Smokeless Tobacco: Never Comments:Spouse and daughter s smoke in home Alcohol Use Standard Drinks/Week Comments No 0 (1 standard drink = 0.6 oz pur e alcohol) Comments No Sex and Gender Information Value Date Recorded Sex Assigned at Not on file Legal Sex Female 3:34 AM FREIGHT MANAGER Gender Identity Not on file Sexual Orientation Not on file Occupation Industry Job Start Date Job End Date Disabled Not on file Not on file Not on file Not on file Not on file Not on file Not on file documented as of this encounter Plan of Treatment Not on file documented as of this encounter Visit Diagnoses Diagnosis Multinodular goiter Nontoxic multinodular goiter Hoarse voice quality Dysphonia Dysphagia, oropharyngeal Dysphagia, oropharyngeal phase documented in this encounter Care Teams Loom Inspector Relationship Specialty Start Date End Date Adrienne March DO [address] [place] [address] PCP - General Family Practice 06/30/10 documented as of this encounter
--- OUTSIDE RECORDS SUMMARY | 2025-03-21 13:51 | XMS_ITS | Encounter Summary ---
Author Organization [facility] Address [address] [place] [address] Care Team Providers Care Control Systems Technician Name Role Phone Adrienne March DO Primary Care Provider [phone] Encounter Details Date Type Department Care Team (Latest Contact Info) Description 07/28/2007 Outpatient Historical [facility] Gen Spec [place]urg [place] [address] [place] [address] Ketan Lew MD [address] [place] [address] Ulcer of Lower Limb, Unspecified (CMS/HCC) (Primary Dx); Gangrene (CMS/HCC); Other Postoperative Infection; Follow-Up Examination, Following Unspecified Surgery Social History Tobacco Use Types Packs/Day Years Used Date Smoking Tobacco: Never Assessed Comments Unknown Sex and Gender Information Value Date Recorded Sex Assigned at Not on file Legal Sex Female 3:34 AM EDITOR HOUSE ORGAN Gender Identity Not on file Sexual Orientation Not on file documented as of this encounter Plan of Treatment Not on file documented as of this encounter Visit Diagnoses Diagnosis Ulcer of lower limb, unspecified- Primary Gangrene (CMS/HCC) Gangrene Other postoperative infection Follow-up examination, following unspecified surgery documented in this encounter Care Teams Control Systems Technician Relationship Specialty Start Date End Date Adrienne March DO [address] [place] [address] PCP - General Family Practice 06/30/10 documented as of this encounter
--- OUTSIDE RECORDS SUMMARY | 2025-03-21 13:51 | XMS_ITS | Encounter Summary ---
Author Organization [facility] Address [address] [place] [address] Care Team Providers Care Excavation Laborer Name Role Phone Adrienne March DO Primary Care Provider Encounter Details Date Type Department Care Team (Latest Contact Info) Description 06/07/2007 Outpatient Historical [facility] Gen Spec Surg [place] [address] [place] [address] Ketan Lew MD [address] [place] [address] Ulcer of Lower Limb, Unspecified (CMS/HCC) (Primary Dx); Gangrene (CMS/HCC); Other Postoperative Infection; Follow-Up Examination, Following Unspecified Surgery Social History Tobacco Use Types Packs/Day Years Used Date Smoking Tobacco: Never Assessed Comments Unknown Sex and Gender Information Value Date Recorded Sex Assigned at Not on file Legal Sex Female 3:34 AM CUSTOMER BUSINESS MANAGER Gender Identity Not on file Sexual Orientation Not on file documented as of this encounter Plan of Treatment Not on file documented as of this encounter Visit Diagnoses Diagnosis Ulcer of lower limb, unspecified- Primary Gangrene (CMS/HCC) Gangrene Other postoperative infection Follow-up examination, following unspecified surgery documented in this encounter Care Teams Excavation Laborer Relationship Specialty Start Date End Date Adrienne March DO [address] [place] [address] PCP - General Family Practice 06/30/10 documented as of this encounter
--- OUTSIDE RECORDS SUMMARY | 2025-03-21 13:51 | XMS_ITS | Encounter Summary ---
Author Organization [facility] Address [address] [place] [address] Care Team Providers Care Salt Refiner Name Role Phone Adrienne March DO Primary Care Provider Encounter Details Date Type Department Care Team (Late st Contact Info) Description 09/30/2007 Outpatient Historical [facility] Medicine- [place] [address] [place] [address] Alexei Elizabeth MD [address] [place] [address] Social History Tobacco Use Types Packs/Day Years Used Date Smoking Tobacco: Never Assessed Comments Unknown Sex and Gender Information Value Date Recorded Sex Assigned at Not on file Legal Sex Female 3:34 AM CONFERENCE DIRECTOR Gender Identity Not on file Sexual Orientation Not on file documented as of this encounter Plan of Treatment Not on file documented as of this encounter Visit Diagnoses Not on filedocumented in this encounter Care Teams Salt Refiner Relationship Specialty Start Date End Date Adrienne March DO [address] [place] [address] PCP - General Family Practice 06/30/10 documented as of this encounter
--- OUTSIDE RECORDS SUMMARY | 2025-03-21 13:51 | XMS_ITS | Encounter Summary ---
Author Organization [facility] Address [address] [place] [address] Care Team Providers Care Cloth Spreader Screen Printing Name Role Phone Adrienne March DO Primary Care Provider Reason for Visit * Reason Comments Clinical Consult Before Scheduling Encounter Details Date Type Department Care Team (Late st Contact Info) Description 03/16/2025 Telephone [facility] Medicine [place] [address] [place] [address] Adrienne March DO [address] [place] [address] Clinical Consult Before Scheduling Social History Tobacco Use Types Packs/Day Years [...] on file Legal Sex Female 6:27 AM ALARM SIGNALER Gender Identity Not on file Sexual Orientation Not on file documented as of this encounter Miscellaneous Notes * Telephone Encounter - Le Allen RN - 03/16/2025 8:37 AM CDT 03/16/2025 8:37 AM ABDOMINAL PAIN The adult patient complains of abdominal pain. She states that this started on Wednesday and says thather stomach feels like there is a big ball in it and it is moving around. I tried to get her scheduled to be seen today or go to the walk- in clinic in [place] but patient chose to wait until Wednesday so she can see December. She was advised that if things got worse she needed to proceed to the ER. Is the patient no. If YES, answer the questions below regarding and abdominal pain. Blood in stool no. If this is a new problem, and patient has severe pain with fever; OR severe pain with uncontrolled nausea or vomiting; OR severe pain with any blood in stool, call 911 and send patient to [facility] ER. Speak with RN, HEADER OPERATOR or doctor right away to verify sending to ER. If none of the above, encourage an appointment first. Patient made appointment yes. If yes, when Wednesday, March 19 with December at patient's request. Abdominal pain started: 4 days ago. Pain is described as mild and is located in left upper quadrant. What is the quality of the pain: aching. Does the pain come and go or is it constant: intermittent. Other symptoms: Nausea or vomiting: nausea and no vomiting. Fever: absent. Change in bowels: no. What makes the pain better: not moving. What makes the pain worse: movement. What has the patient done or taken to relieve the pain: nothing. Has the patient had similar abdominal pain before? no. If the patient can't be seen by a provider and chooses urgent care, recommend: [facility] C[facility] are preferable when needed to help to coordinate care. Click for list of [facility]gent [facility]: [email or web address] IF PATIENT IS , does the patient have vaginal bleeding? none. If and bleeding is moderate or severe, call 911 and send patient to [facility] ER or nearest ER. Speak with RN, HEADER OPERATOR or doctor right away to verify sending to ER. If and bleeding is mild or spotting, contact DINING SERVICES DIRECTOR. Designed by [place] [employer] committee 2019 [employer] CURIEL * Telephone Encounter - Jones Pires - 03/16/2025 8:37 AM CDT Copied from [facility] #[id number]. Topic: Symptomatic Care >> Mar 16, 2025 8:31 AM Jones Bradley wrote: Has this patient seen any provider (current or former) at the requested clinic in the past? Yes, Select the appropriate age range and symptom Patient has symptoms and is seeking care. Caller Name: Tiffany Callback Number: [phone] Call Notes: Her stomach feels bloated, started Wednesday03/12/25 and stayed the same all week, when she bends over she does feel discomfort, She states it feels like something is rolling around. Age Range/Symptom: Adult 18+ - Transferred to [facility] line and Mira answered call. documented in this encounter Plan of Treatment Upcoming Encounters Date Type Department Care Team (Late st Contact Info) Description 05/15/2025 8:40 AM CDT Office Visit [facility] Medicine [place] [address] [place] [address] Adrienne March, DO [address] [place] [address] 07/25/2025 10:00 AM ALARM SIGNALER Office Visit [facility] [place] [address] [facility] [place] [id number] Adrienne March DO [address] [place] [address] documented as of this encounter Visit Diagnoses Not on filedocumented in this encounter Care Teams Cloth Spreader Screen Printing Relationship Specialty Start Date End Date Adrienne March DO [address] [facility] [place] [id number] PCP - General Family Practice 06/30/10 documented as of this encounter
--- OUTSIDE RECORDS SUMMARY | 2025-03-21 13:51 | XMS_ITS | Encounter Summary ---
Author Organization [facility] Address [address] [place] [address] Care Team Providers Care Owner Operator Name Role Phone Adrienne March DO Primary Care Provider [phone] Encounter Details Date Type Department Care Team (Late st Contact Info) Description 03/21/2003 Outpatient Historical [facility] Social History Tobacco Use Types Packs/Day Years Used Date Smoking Tobacco: Never Assessed Comments Unknown Sex and Gender Information Value Date Recorded Sex Assigned at Not on file Legal Sex Female 3:34 AM SCIENCE INTERPRETER Gender Identity Not on file Sexual Orientation Not on file documented as of this encounter Plan of Treatment Not on file documented as of this encounter Visit Diagnoses Not on filedocumented in this encounter Care Teams Owner Operator Relationship Specialty Start Date End Date Adrienne March DO [address] [place] [address] PCP - General Family Practice 06/30/10 documented as of this encounter
--- OUTSIDE RECORDS SUMMARY | 2025-03-21 13:51 | XMS_ITS | Encounter Summary ---
Author Organization [facility] Address [address] [place] [address] Care Team Providers Care Aircraft Maintenance Supervisor Name Role Phone Adrienne March Primary Care Provider Encounter Details Date Type Department Care Team (Late st Contact Info) Description 10/04/2007 Outpatient Historical [facility] Gen Spec Surg [place] [address] [place] [address] Ketan Lew MD [address] [place] [address] Social History Tobacco Use Types Packs/Day Years Used Date Smoking Tobacco: Never Assessed Comments Unknown Sex and Gender Information Value Date Recorded Sex Assigned at Not on file Legal Sex Female 3:34 AM BIOPSYCHOLOGIST Gender Identity Not on file Sexual Orientation Not on file documented as of this encounter Progress Notes * Ketan Lew - 10/04/2007 12:00 AM CST Patient Name: Tiffany Sheffield DOS: 10/04/2007 : 1945 The patients wound is continuing to slowly contract and granulate in. There is a nice bed of pink granulation tissue within the wound. Clinically it appears to be smaller. It measures roughly the same size as before so it maybe its greatest dimensions are about the same but overall it is getting smaller. She wants to continue with the current course since it seems to be working. She will return to see us in about six weeks. Ketan Lew M.D. General & Specialty Surgery Electronically Signed by Ketan Lew M.D. 10/14/2007 05:48 , P, trina Job #: Document #: [id number] cc: Alexei Dubon D.O. SYCHOLOGIST SYCHOLOGIST documented in this encounter Plan of Treatment Not on file documented as of this encounter Visit Diagnoses Not on filedocumented in this encounter Care Teams Aircraft Maintenance Supervisor Relationship Specialty Start Date End Date Adrienne March DO [address] [place] [id number] PCP - General Family Practice 06/30/10 documented as of this encounter
--- OUTSIDE RECORDS SUMMARY | 2025-03-21 13:51 | XMS_ITS | Encounter Summary ---
Author Organization [facility] Address [address] [place] [address] Care Team Providers Care Orthodontic Lab Technician Name Role Phone Adrienne March DO Primary Care Provider Encounter Details Date Type Department Care Team (Late st Contact Info) Description 02/01/2008 Outpatient Historical [address] Neuro [address] [place] [address] Ed, Physician NO ADDRESS ON FILE Marcelino Sauceda MD NO ADDRESS ON FILE Sushil Enrique MD [address] [place] [id number] Social History Tobacco Use Types Packs/Day Years Used Date Smoking Tobacco: Never Assessed Comments Unknown Sex and Gender Information Value Date Recorded Sex Assigned at Not on file 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 DIFFICILE DETECTION Routine 10:03 PM CDT POC GLUCOSE Routine 02/05/2008 8:47 PM CDT POC GLUCOSE Routine 02/05/2008 4:38 PM CDT POC GLUCOSE Routine 02/05/2008 11:08 AM CDT POC GLUCOSE Routine 02/05/2008 7:52 AM CDT PHENYTOIN LEVEL, TOTAL Routine 200 8 6:00 AM CDT CBC WITH DIFFERENTIAL Stat 02/04/2008 10:22 PM CDT POC GLUCOSE Routine 02/04/2008 8:43 PM CDT POC GLUCOSE Routine 02/04/2008 5:23 PM CDT AMYLASE Stat 02/04/2008 3:11 PM CDT PHENYTOIN LEVEL, TOTAL Stat 8 3:11 PM CDT COMPREHENSIVE METABOLIC PANEL Stat 02/04/2008 3:11 PM CDT POC GLUCOSE Routine 02/04/2008 12:44 PM CDT POC GLUCOSE Routine 02/04/2008 8:55 AM CDT POC GLUCOSE Routine 02/03/2008 10:35 PM CDT POC GLUCOSE Routine 02/03/2008 4:56 PM CDT POC GLUCOSE Routine 02/03/2008 11:53 AM CDT POC GLUCOSE Routine 02/03/2008 5:16 AM CDT PHENYTOIN LEVEL, TOTAL Routine 200 8 4:06 AM CDT POC GLUCOSE Routine 02/02/2008 8:14 PM CDT POC GLUCOSE Routine 02/02/2008 4:34 PM CDT PHENYTOIN LEVEL, TOTAL Routine 8 3:19 PM CDT POC GLUCOSE Routine 02/02/2008 1:27 PM CDT PHENYTOIN LEVEL, TOTAL Routine 8 12:11 PM CDT POC GLUCOSE Routine 02/02/2008 12:08 PM CDT MRSA CULTURE Routine 02/02/2008 9:56 AM CDT POC GLUCOSE Routine 02/02/2008 6:40 AM CDT LIPID PANEL Routine 02/02/2008 6:10 AM CDT URINALYSIS W/REFLEX MICROSCOPIC Stat 02/02/2008 5:10 AM CDT MRI BRAIN W WO CONTRAST Routine 02/01/2008 9:14 PM CDT PT AND APTT Stat 02/01/2008 7:34 PM CDT CBC WITH DIFFERENTIAL Stat 02/01/2008 7:34 PM CDT BASIC METABOLIC PANEL Stat 02/01/2008 7:34 PM CDT documented in this encounter Results * (ABNORMAL) POC GLUCOSE (02/06/2008 6:49 AM CDT) GLUCOSE POC 216(H) 60 - 100 mg/dL [facility] Venous blood specimen (specimen) 02/06/2008 6:49 AM CDT 02/07/2008 6:53 AM CDT us Sushil Enrique MD POINT OF CARE TESTING Final Res ult [facility] CLIA# [id number] [address] [place] [address] * CLOSTRIDIUM DIFFICILE TOXIN (02/05/2008 10:03 PM CDT) C DIFFICILE TOXIN Negative Negative [facility] 02/05/2008 10:0 3 PM CDT 02/05/2008 10:03 PM CDT Sushil Enrique MD MICROBIOLOGY - GENERAL ORDERABL ES Final Result Performing Organization Address [facility] Co de Phone Number [facility] CLIA# [id number] [address] [place] [address] * (ABNORMAL) POC GLUCOSE (02/05/2008 8:47 PM CDT) GLUCOSE POC 116(H) 60 - 100 mg/dL [facility] Venous blood specimen (specimen) 02/05/2008 8:47 PM CDT 02/06/2008 12:45 AM CDT Sushil Enrique MD POINT OF CARE TESTING Final Res ult Performing Organization Address [facility] Co de Phone Number [facility] CLIA# [id number] [address] [place] [address] * (ABNORMAL) POC GLUCOSE (02/05/2008 4:38 PM CDT) GLUCOSE POC 276(H) 60 - 100 mg/dL [facility] Venous blood specimen (specimen) 02/05/2008 4:38 PM CDT 02/06/2008 12:57 AM CDT Sushil Enrique MD POINT OF CARE TESTING Final Res ult Performing Organization Address [facility] Co de Phone Number [facility] CLIA# [id number] [address] [place] [address] * (ABNORMAL) POC GLUCOSE (02/05/2008 11:08 AM CDT) GLUCOSE POC 157(H) 60 - 100 mg/dL [facility] Venous blood specimen (specimen) 02/05/2008 11:08 AM CDT 02/05/2008 12:24 PM CDT Sushil Enrique MD POINT OF CARE TESTING Final Res ult Performing Organization Address [facility] Co de Phone Number [facility] CLIA# [id number] [address] [place] [address] * (ABNORMAL) POC GLUCOSE (02/05/2008 7:52 AM CDT) [facility] Signature GLUCOSE POC 168(H) 60 - 100 mg/dL [facility] Venous blood specimen (specimen) 02/05/2008 7:52 AM CDT 02/05/2008 12:24 PM CDT Sushil Enrique MD POINT OF CARE TESTING Final Res ult Performing Organization Address [facility] de Phone Number [facility] CLIA# [id number] [address] [place] [address] * PHENYTOIN LEVEL, TOTAL (02/05/2008 6:00 AM CDT) [facility] PHENYTOIN TOTAL 11.4 10.0 - 20.0 ug/mL [facility] Blood specimen (specimen) 02/05/2008 6:00 AM CDT 02/05/2008 6:21 AM CDT Sushil Enrique MD CHEMISTRY ORDERABLES Final Resu lt Performing Organization Address [facility] de Phone Number [facility] CLIA# [id number] [address] [place] [address] * (ABNORMAL) CBC WITH DIFFERENTIAL (02/04/2008 10:22 PM CDT) BASOPHILS 0.3 0.0 - 1.0 % [facility] MPV 10.0 8.9 - 12.8 Fl [facility] BASOPHILS ABSOLUTE 0.0 0.0 - 0.2 K/ul [facility] HEMOGLOBIN 14.7 12.0 - 16.0 g/dL [facility] MONOCYTES 7.6 2.0 - 10.0 % [facility] RDW 13.6 11.0 - 14.5 % [facility] MONOCYTE ABSOLUTE 0.9(H) 0.1 - 0.6 K/ul [facility] WBC 11.9(H) 4.8 - 10.8 K/ul [facility] NEUTROPHILS 75.7(H) 42.2 - 75.2 % [facility] MCH 28.4 27.0 - 34.0 pg [facility] NEUTROPHIL ABSOLUTE 9.0(H) 2.0 - 8.0 K/ul [facility] HEM COMMENT REDRAWN:15 11 [facility] HEMATOCRIT 46.8(H) 36.0 - 46.0 % [facility] PLATELETS 354 140 - 440 K/ul [facility] EOSINOPHIL ABSOLUTE 0.1 0.0 - 0.7 K/ul [facility] EOSINOPHILS 0.9 0.0 - 7.0 % [facility] RBC 5.18 4.20 - 5.40 Mil/ul [facility] MCHC 31.4 30.0 - 35.0 g/dL [facility] LYMPHOCYTE ABSOLUTE 1.9 1.2 - 4.0 K/ul [facility] LYMPHOCYTES 15.5(L) 24.0 - 44.0 % [facility] MCV 90.3 84.0 - 103.0 Fl [facility] Blood specimen (specimen) 02/04/2008 10:22 PM CDT 02/04/2008 10:22 PM CDT us Sushil Enrique MD HEMATOLOGY ORDERABLES Edited [facility] CLIA# [id number] [address] [place] [address] * (ABNORMAL) POC GLUCOSE (02/04/2008 8:43 PM CDT) GLUCOSE POC 225(H) 60 - 100 mg/dL [facility] Venous blood specimen (specimen) 02/04/2008 8:43 PM CDT 02/04/2008 11:46 PM CDT us Sushil Enrique MD POINT OF CARE TESTING Final Res ult Performing Organization Address [facility] Co de Phone Number [facility] CLIA# [id number] [address] [place] [address] * (ABNORMAL) POC GLUCOSE (02/04/2008 5:23 PM CDT) GLUCOSE POC 153(H) 60 - 100 mg/dL [facility] Venous blood specimen (specimen) 02/04/2008 5:23 PM CDT 02/04/2008 11:42 PM CDT us Sushil Enrique MD POINT OF CARE TESTING Final Res ult Performing Organization Address [facility] Co de Phone Number [facility] CLIA# [id number] [address] [place] [address] * PHENYTOIN LEVEL, TOTAL (02/04/2008 3:11 PM CDT) PHENYTOIN TOTAL 12.4 10.0 - 20.0 ug/mL [facility] Blood specimen (specimen) 02/04/2008 3:11 PM CDT 02/04/2008 3:32 PM CDT us Sushil Enrique MD CHEMISTRY ORDERABLES Final Resu lt Performing Organization Address City/[facility]/ZIP Co de Phone Number [facility] CLIA# [id number] [address] [place] [address] * AMYLASE (02/04/2008 3:11 PM CDT) Pathologist [facility] AMYLASE 20 20 - 104 U/L [facility] Blood specimen (specimen) 02/04/2008 3:11 PM CDT 02/04/2008 3:32 PM CDT Sushil Enrique MD CHEMISTRY ORDERABLES Final Resu lt [facility] CLIA# [id number] [address] [place] [address] * (ABNORMAL) COMPREHENSIVE METABOLIC PANEL (02/04/2008 3:11 PM CDT) [facility] ALBUMIN 4.0 3.5 - 5.0 g/dL [facility] POTASSIUM 3.8 3.5 - 5.0 mEq/L [facility] GLOBULIN (CALC) 3.0 2.4 - 3.9 g/dL [facility] CREATININE 1.2 0.7 - 1.2 mg/dL [facility] CALCIUM 9.3 8.4 - 10.5 mg/dL [facility] ALT 28 4 - 36 IU/L [facility] OSMOLALITY, CALCULATED 290 275 - 295 mOsm/Kg [facility] GLUCOSE 156(H) 70 - 110 mg/dL [facility] CHLORIDE 99 95 - 110 mEq/L [facility] ALKALINE PHOSPHATASE 103(H) 25 - 100 U/L [facility] ALBUMIN/GLOBULIN RATIO 1.3 1.0 - 2.3 [facility] SODIUM 139 136 - 145 mEq/L [facility] TOTAL PROTEIN 7.0 6.3 - 8.2 g/dL [facility] BILIRUBIN TOTAL 0.2(L) 0.3 - 1.2 mg/dL [facility] BUN 15 7 - 17 mg/dL [facility] AST 24 8 - 33 U/L [facility] CO2 32 22 - 32 mmol/l [facility] ANION GAP 12 9 - 20 mEq/L [facility] Blood specimen (specimen) 02/04/2008 3:11 PM CDT 02/04/2008 3:32 PM CDT Sushil Enrique MD CHEMISTRY ORDERABLES Final Resu lt Performing Organization Address [facility] Co de Phone Number [facility] CLIA# [id number] [address] [place] [address] * (ABNORMAL) POC GLUCOSE (02/04/2008 12:44 PM CDT) GLUCOSE POC 150(H) 60 - 100 mg/dL [facility] Venous blood specimen (specimen) 02/04/2008 12:44 PM CDT 02/04/2008 11:42 PM CDT Sushil Enrique MD POINT OF CARE TESTING Final Res ult Performing Organization Address [facility] de Phone Number [facility] CLIA# [id number] [address] [place] [address] * (ABNORMAL) POC GLUCOSE (02/04/2008 8:55 AM CDT) GLUCOSE POC 247(H) 60 - 100 mg/dL [facility] Venous blood specimen (specimen) 02/04/2008 8:55 AM CDT 02/04/2008 11:42 PM CDT Sushil Enrique MD POINT OF CARE TESTING Final Res ult Performing Organization Address [facility] de Phone Number [facility] CLIA# [id number] [address] [place] [address] * (ABNORMAL) POC GLUCOSE (02/03/2008 10:35 PM CDT) GLUCOSE POC 209(H) 60 - 100 mg/dL [facility] Venous blood specimen (specimen) 02/03/2008 10:35 PM CDT 02/04/2008 1:59 AM CDT Sushil Enrique MD POINT OF CARE TESTING Final Res ult Performing Organization Address [facility] Co de Phone Number [facility] CLIA# [id number] [address] [place] [address] * (ABNORMAL) POC GLUCOSE (02/03/2008 4:56 PM CDT) GLUCOSE POC 317(H) 60 - 100 mg/dL [facility] Venous blood specimen (specimen) 02/03/2008 4:56 PM CDT 02/04/2008 1:55 AM CDT us Sushil Enrique MD POINT OF CARE TESTING Final Res ult Performing Organization Address [facility] de Phone Number [facility] CLIA# [id number] [address] [place] [address] * (ABNORMAL) POC GLUCOSE (02/03/2008 11:53 AM CDT) GLUCOSE POC 213(H) 60 - 100 mg/dL [facility] Venous blood specimen (specimen) 02/03/2008 11:53 AM CDT 02/04/2008 11:08 AM CDT Sushil Enrique MD POINT OF CARE TESTING Final Res ult Performing Organization Address [facility] de Phone Number [facility] CLIA# [id number] [address] [place] [address] * (ABNORMAL) POC GLUCOSE (02/03/2008 5:16 AM CDT) GLUCOSE POC 256(H) 60 - 100 mg/dL [facility] Venous blood specimen (specimen) 02/03/2008 5:16 AM CDT 02/03/2008 6:38 AM CDT Sushil Enrique MD POINT OF CARE TESTING Final Res ult Performing Organization Address [facility] Co de Phone Number [facility] CLIA# [id number] [address] [place] [address] * PHENYTOIN LEVEL, TOTAL (02/03/2008 4:06 AM CDT) PHENYTOIN TOTAL 15.8 10.0 - 20.0 ug/mL [facility] Blood specimen (specimen) 02/03/2008 4:06 AM CDT 02/03/2008 4:06 AM CDT Sushil Enrique MD CHEMISTRY ORDERABLES Final Resu lt Performing Organization Address [facility] de Phone Number [facility] CLIA# [id number] [address] [place] [address] * (ABNORMAL) POC GLUCOSE (02/02/2008 8:14 PM CDT) GLUCOSE POC 189(H) 60 - 100 mg/dL [facility] Venous blood specimen (specimen) 02/02/2008 8:14 PM CDT 02/03/2008 6:38 AM CDT Sushil Enrique MD POINT OF CARE TESTING Final Res ult Performing Organization Address [facility] de Phone Number [facility] CLIA# [id number] [address] [place] [address] * (ABNORMAL) POC GLUCOSE (02/02/2008 4:34 PM CDT) GLUCOSE POC 243(H) 60 - 100 mg/dL [facility] Venous blood specimen (specimen) 02/02/2008 4:34 PM CDT 02/03/2008 6:38 AM CDT us Sushil Enrique MD POINT OF CARE TESTING Final Res ult Performing Organization Address [facility] de Phone Number [facility] CLIA# [id number] [address] [place] [address] * PHENYTOIN LEVEL, TOTAL (02/02/2008 3:19 PM CDT) PHENYTOIN TOTAL 18.5 10.0 - 20.0 ug/mL [facility] Blood specimen (specimen) 02/02/2008 3:19 PM CDT 02/02/2008 3:28 PM CDT us Marley Dietrich MD CHEMISTRY ORDERABLES Final Resul t Performing Organization Address [facility] Phone Number [facility] CLIA# [id number] [address] [place] [address] * (ABNORMAL) POC GLUCOSE (02/02/2008 1:27 PM CDT) GLUCOSE POC 386(H) 60 - 100 mg/dL [facility] Venous blood specimen (specimen) 02/02/2008 1:27 PM CDT 02/03/2008 6:38 AM CDT us Sushil Enrique MD POINT OF CARE TESTING Final Res ult Performing Organization Address [facility] de Phone Number [facility] CLIA# [id number] [address] [place] [address] * (ABNORMAL) PHENYTOIN LEVEL, TOTAL (02/02/2008 12:11 PM CDT) PHENYTOIN TOTAL 0.9(L) 10.0 - 20.0 ug/mL [facility] Blood specimen (specimen) 02/02/2008 12:11 PM CDT 02/02/2008 12:23 PM CDT Sushil Enrique MD CHEMISTRY ORDERABLES Final Resu lt Performing Organization Address [facility] Co de Phone Number [facility] CLIA# [id number] [address] [place] [address] * (ABNORMAL) POC GLUCOSE (02/02/2008 12:08 PM CDT) GLUCOSE POC 401(H) 60 - 100 mg/dL [facility] Venous blood specimen (specimen) 02/02/2008 12:08 PM CDT 02/03/2008 6:38 AM CDT us Sushil Enrique MD POINT OF CARE TESTING Final Res ult Performing Organization Address [facility] de Phone Number [facility] CLIA# [id number] [address] [place] [address] * MRSA CULTURE (02/02/2008 9:56 AM CDT) FINAL REPORT Culture screen for MRSA negative INTERFACE SYSTEM 02/02/2008 9:56 AM CDT 02/02/2008 8:37 PM CDT us Sushil Enrique MD MICROBIOLOGY - GENERAL ORDERABL ES Final Result Performing Organization Address [facility] de Phone Number INTERFACE SYSTEM Refer to clinic/hospital department * (ABNORMAL) POC GLUCOSE (02/02/2008 6:40 AM CDT) GLUCOSE POC 393(H) 60 - 100 mg/dL [facility] Venous blood specimen (specimen) 02/02/2008 6:40 AM CDT 02/03/2008 1:57 AM CDT us Sushil Enrique MD POINT OF CARE TESTING Final Res ult Performing Organization Address [facility] Co de Phone Number [facility] CLIA# [id number] [address] [place] [address] * (ABNORMAL) LIPID PANEL (02/02/2008 6:10 AM CDT) CHOLESTEROL 220(H) 0 - 200 mg/dL [facility] Comment: On 01/23/2008 [facility] changed the cholesterol reference range to 0-200 mg/dl. This is the recommendation of the National Cholesterol Education Program (NCEP-ATPIII). CALCULATED LDL CHOLESTEROL 117(H) 0 - 100 mg/dL [facility] Comment: On 01/23/2008 [facility] changed the LDL reference range to 0- 100 mg/dl. This is the recommendation of the National Cholesterol Education Program (NCEP-ATPIII). HDL 40 40 - 60 mg/dL [facility] CALCULATED TOTAL CHOLESTEROL TO HDL RATIO 5.50(H) 3.27 - 4.44 [facility] TRIGLYCERIDE 315(H) 0 - 150 mg/dL [facility] Comment: On 01/23/2008, [facility] changed the triglyceride reference range to 0-150 mg/dl. This is the recommendation of the National Cholesterol Education Program (NCEP-ATPIII). Blood specimen (specimen) 02/02/2008 6:10 AM CDT 02/02/2008 6:31 AM CDT us Sushil Enrique MD CHEMISTRY ORDERABLES Final Resu lt [facility] CLIA# [id number] [address] [place] [address] * (ABNORMAL) URINALYSIS (02/02/2008 5:10 AM CDT) Pathologist [facility] LEUKOCYTE ESTERASE UA NEGATIVE NEGATIVE [facility] KETONES UA NEGATIVE NEGATIVE [facility] MICRO EXAM No No [facility] COLOR UA Yellow Straw [facility] PROTEIN UA NEGATIVE NEGATIVE [facility] BLOOD UA NEGATIVE NEGATIVE [facility] NITRITE UA NEGATIVE NEGATIVE [facility] UROBILINOGEN UA 0.2 0.2 [facility] CLARITY UA Clear Clear [facility] SPECIFIC GRAVITY UA 1.020 <=1.005 [facility] GLUCOSE UA >=1000 mg/dl(A) NEGATIVE [facility] PH UA 6.0 5.0 - 9.0 [facility] BILIRUBIN UA NEGATIVE NEGATIVE [facility] Urine specimen (specimen) 02/02/2008 5:10 AM CDT 02/02/2008 5:10 AM CDT us Marcelino Sauceda MD URINE ORDERABLES Final Result [facility] CLIA# [id number] [address] [place] [address] * MRI BRAIN W WO CONTRAST (02/01/2008 9:14 PM CDT) Anatomical Region Laterality Modality Head Other 02/01/2008 9:14 PM CDT Narrative 02/01/2008 9:14 PM CDT Brain MRI without and with contrast: History: Headaches and left visual deficit. The examination has been performed without contrast and with 20 mL of Magnevist. Comparison is to a head CT obtained on 01/24/2008. The midline structures, ventricles and relationships at the foramen magnum are normal. The DWI sequence demonstrates subtle increased signal within the right posterior parafalcine inferior parietal and superior occipital cortex and subcortical white matter with corresponding diminished signal on the ADC sequence most consistent with acute ischemic change. A few small foci of T2 prolongation are identified within the juanita and scattered in the cerebral white matter. The postcontrast images are unremarkable. Flow is identified in the major intracranial arteries and dural sinuses. Chronic right orbital posttraumatic changes. The paranasal sinuses and mastoid air cells are clear. No calvarial lesions. Additional thin section postcontrast fat-saturated T1 weighted images were obtained through the orbits. No abnormal signal or enhancement is identified. Impression: 1. Acute ischemic change at the right parafalcine parietal-occipital junction. 2. Mild chronic small vessel ischemic changes within the juanita and cerebral white matter. Dictated By: Meg Doran M.D. Electronically Signed By: Meg Doran M.D. Date Signed: 02/02/08 Procedure Note Nakul Doran B - 02/02/2008 Brain MRI without and with contrast: History: Headaches and left visual deficit. The examination has been performed without contrast and with 20 mL ofMagnevist. Comparison is to a head CT obtained on 01/24/2008. The midline structures, ventricles and relationships at the foramen magnumare normal. The DWI sequence demonstrates subtle increased signal within the rightposterior parafalcine inferior parietal and superior occipital cortex and subcortical white matter withcorresponding diminished signal on the ADC sequence most consistent with acute ischemic change. A few small foci of T2 prolongation are identified within the juanita andscattered in the cerebral white matter. The postcontrast images are unremarkable. Flow is identified in the major intracranial arteries and dural sinuses. Chronic right orbital posttraumatic changes. The paranasal sinuses andmastoid air cells are clear. No calvarial lesions. Additional thin section postcontrast fat-saturated [id number] images were obtained through the orbits. No abnormal signal or enhancement is identified. Impression: 1. Acute ischemic change at the right parafalcine parietal-occipitaljunction. 2. Mild chronic small vessel ischemic changes within the juanita and cerebralwhite matter. Dictated By: Meg Doran M.D. Electronically Signed By: Meg Doran M.D. Date Signed: 02/02/08 Marcelino Sauceda MD MR ORDERABLES Edited * (ABNORMAL) CBC WITH DIFFERENTIAL (02/01/2008 7:34 PM CDT) RBC 5.24 4.20 - 5.40 Mil/ul [facility] LYMPHOCYTES 23.8(L) 24.0 - 44.0 % [facility] MCHC 32.7 30.0 - 35.0 g/dL [facility] LYMPHOCYTE ABSOLUTE 2.2 1.2 - 4.0 K/ul [facility] MCV 87.0 84.0 - 103.0 Fl [facility] MPV 9.4 8.9 - 12.8 Fl [facility] BASOPHILS ABSOLUTE 0.0 0.0 - 0.2 K/ul [facility] BASOPHILS 0.2 0.0 - 1.0 % [facility] HEMOGLOBIN 14.9 12.0 - 16.0 g/dL [facility] RDW 13.2 11.0 - 14.5 % [facility] MONOCYTE ABSOLUTE 0.6 0.1 - 0.6 K/ul [facility] MONOCYTES 6.4 2.0 - 10.0 % [facility] WBC 9.2 4.8 - 10.8 K/ul [facility] MCH 28.4 27.0 - 34.0 pg [facility] NEUTROPHIL ABSOLUTE 6.2 2.0 - 8.0 K/ul [facility] NEUTROPHILS 67.4 42.2 - 75.2 % [facility] HEMATOCRIT 45.6 36.0 - 46.0 % [facility] EOSINOPHILS 2.2 0.0 - 7.0 % [facility] PLATELETS 282 140 - 440 K/ul [facility] EOSINOPHIL ABSOLUTE 0.2 0.0 - 0.7 K/ul [facility] Blood specimen (specimen) 02/01/2008 7:34 PM CDT 02/01/2008 7:34 PM CDT us Marcelino Sauceda MD HEMATOLOGY ORDERABLES Final Res ult [facility] CLIA# [id number] [place] [id number] * PT AND APTT (02/01/2008 7:34 PM CDT) PROTIME 13.5 12.8 - 15.8 Secs [facility] Comment:As of 2007 not e change in normal range. INR 0.9 [facility] Comment: Expected Values for INR: DVT/PE Goal INR 2.5; range 2.0 - 3.0 Valve Replacement Tissue Goal INR 2.5; range 2.0 - 3.0 Mechanical Goal INR 3.0; range 2.5 - 3.5 POST-MO Goal INR 2.5; range 2.0 - 3.0 or Goal 3.0; range 2.5 - 3.5 Atrial Fibrillation Goal INR 2.5; range 2.0 - 3.0 Ischemic Stroke Goal INR 2.5; range 2.0 - 3.0 For additional information see Guidelines for Anticoagulation available from the pharmacy Ciara Bradley [phone] PTT 27.7 22.5 - 36.5 Secs [facility] Comment: Therapeutic Range: Hi-level PE/DVT heparin protocol 80.1 -95.0 sec Lo-level PE/DVT heparin protocol 67.1 - 80.0 sec Cardiac Heparin Protocol 67.1 - 85.0 sec Neuro Heparin Protocol 67.1 - 80.0 sec As of 12/08/2007 note change in APTT Normal Range. Blood specimen (specimen) 02/01/2008 7:34 PM CDT 02/01/2008 7:34 PM CDT us Marcelino Sauceda MD HEMATOLOGY ORDERABLES Edited [facility] CLIA# [id number] [address] [place] [id number] * (ABNORMAL) BASIC METABOLIC PANEL (02/01/2008 7:34 PM CDT) OSMOLALITY, CALCULATED 296(H) 275 - 295 mOsm/Kg [facility] POTASSIUM 3.9 3.5 - 5.0 mEq/L [facility] CREATININE 1.1 0.7 - 1.2 mg/dL [facility] CALCIUM 9.6 8.4 - 10.5 mg/dL [facility] GLUCOSE 283(H) 70 - 110 mg/dL [facility] CHLORIDE 100 95 - 110 mEq/L [facility] SODIUM 139 136 - 145 mEq/L [facility] ANION GAP 11 9 - 20 mEq/L [facility] BUN 13 7 - 17 mg/dL [facility] CO2 32 22 - 32 mmol/l [facility] Blood specimen (specimen) 02/01/2008 7:34 PM CDT 02/01/2008 7:34 PM CDT us Marcelino Sauceda MD CHEMISTRY ORDERABLES Final Resu lt Performing Organization Address City/State/[facility] Co de Phone Number [facility] CLIA# [id number] [address] [place] [address] documented in this encounter Visit Diagnoses Not on filedocumented in this encounter Care Teams Orthodontic Lab Technician Relationship Specialty Start Date End Date Adrienne March DO [address] [place] [address] PCP - General Family Practice 06/30/10 documented as of this encounter
--- OUTSIDE RECORDS SUMMARY | 2025-03-21 13:51 | XMS_ITS | Encounter Summary ---
Author Organization [facility] Address 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 She is taking Lasix 40 mg daily. * Telephone Encounter - Treva Bryan CMA - 03/19/2025 10:43 AM CDT Images from the original note were not included. Wilson, December, NIGHT SUPERVISOR You3 hours ago (7:39 AM) The 80 mg was only for 3 days. She should be taking 40 mg daily. * Telephone Encounter - Treva Bryan CMA - 03/16/2025 4:23 PM CDT [facility] faxed note stating that the patient called them for a refill of the Lasix but insurance would not pay for a refill as she is early. Patient stated she was told to take more that theone 40 mg daily. Found where she was increased to 80 mg daily on 03/06 but that was only to be for a total of 3 days. Please advise if the patient is to be taking more that 40 mg daily. 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
--- OUTSIDE RECORDS SUMMARY | 2025-03-21 13:51 | XMS_ITS | Encounter Summary ---
Author Organization [facility] Address [address] [place] [address] Care Team Providers Care Patient Support Tech Name Role Phone Adrienne March DO Primary Care Provider Encounter Details Date Type Department Care Team (Late st Contact Info) Description 02/01/2008 Outpatient Historical [facility] [address] 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
--- OUTSIDE RECORDS SUMMARY | 2025-03-21 13:51 | XMS_ITS | Encounter Summary ---
Author Organization [facility] Address [address] [place] [address] Care Team Providers Care Enterprise Sales Person Name Role Phone Adrienne March DO Primary Care Provider Encounter Details Date Type Department Care Team (Late st Contact Info) Description 09/29/2007 Outpatient Historical [facility] [place] [address] [place] [address] Alexei Elizabeth MD [address] [place] [address] Social History Tobacco Use Types Packs/Day Years Used Date Smoking Tobacco: Never Assessed Comments Unknown Sex and Gender Information Value Date Recorded Sex Assigned at Not on file 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
--- OUTSIDE RECORDS SUMMARY | 2025-03-21 13:51 | XMS_ITS | Encounter Summary ---
Author Organization [facility] Address [address] [place] [address] Care Team Providers Care Traffic Control Operator Name Role Phone Adrienne March DO Primary Care Provider Encounter Details Date Type Department Care Team (Late st Contact Info) Description 09/06/2007 Outpatient Historical [facility] Gen Spec Surg 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
--- OUTSIDE RECORDS SUMMARY | 2025-03-21 13:51 | XMS_ITS | Encounter Summary ---
Author Organization [facility] Address [address] [place] [address] Care Team Providers Care Table Assembler Metal Name Role Phone AncaAdrienne forbes Primary Care Provider Encounter Details Date Type Department Care Team (Late st Contact Info) Description 01/24/2008 Emergency [facility] Emergency Department [address] 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 Gender Identity Not on file Sexual Orientation Not on file documented as of this encounter Plan of Treatment Not on file documented as of this encounter Procedures Procedure Name Priority Date/Time Associated Diagnosis Comments URINE CULTURE Stat 01/24/2008 9:49 PM CDT POC GLUCOSE Routine 01/24/2008 6:31 PM CDT URINALYSIS MICROSCOPY ONLY Stat 01/24/2008 4:54 PM CDT URINALYSIS W/REFLEX MICROSCOPIC Stat 01/24/2008 4:[address] HEAD WO CONTRAST Routine 01/24/2008 2 :43 PM CDT PT AND APTT Stat 01/24/2008 2:06 PM CDT CBC WITH DIFFERENTIAL Stat 01/24/2008 2:06 PM CDT TSH Stat 01/24/2008 2:06 PM CDT T4 FREE Stat 01/24/2008 2:06 PM CDT BASIC METABOLIC PANEL Stat 01/24/2008 2:06 PM CDT POC GLUCOSE Routine 01/24/2008 2:01 PM CDT documented in this encounter Results * URINE CULTURE (01/24/2008 9:49 PM CDT) Pathologist [facility] FINAL REPORT Multiple species isolated. Probable contamination at collection. If clinically indicated, please submit an appropriately collected specimen. INTERFACE SYSTEM 01/24/2008 9:49 PM CDT 01/24/2008 9:49 PM CDT us John Power MD MICROBIOLOGY - GENERAL ORD ERABLES Final Result INTERFACE SYSTEM Refer to clinic/hospital department * (ABNORMAL) POC GLUCOSE (01/24/2008 6:31 PM CDT) Pathologist [facility] GLUCOSE POC 366(H) 60 - 100 mg/dL [facility] COMMENT POC Called [facility] Venous blood specimen (specimen) 01/24/2008 6:31 PM CDT 01/25/2008 7:33 AM CDT us John Power MD POINT OF CARE TESTING Rosetta l Result [facility] [address] [place] [address] * (ABNORMAL) URINALYSIS (01/24/2008 4:54 PM CDT) PH UA 6.5 5.0 - 9.0 [facility] BLOOD UA NEGATIVE NEGATIVE [facility] LEUKOCYTE ESTERASE UA NEGATIVE NEGATIVE [facility] UROBILINOGEN UA 0.2 0.2 [facility] COLOR UA Yellow Straw [facility] PROTEIN UA NEGATIVE NEGATIVE [facility] SPECIFIC GRAVITY UA 1.010 <=1.005 [facility] NITRITE UA NEGATIVE NEGATIVE [facility] BILIRUBIN UA NEGATIVE NEGATIVE [facility] CLARITY UA SL CLOUDY Clear [facility] GLUCOSE UA >=1000 mg/dl(A) NEGATIVE [facility] KETONES UA NEGATIVE NEGATIVE [facility] MICRO EXAM Yes(A) No [facility] Urine specimen (specimen) 01/24/2008 4:54 PM CDT 01/24/2008 4:54 PM CDT John Power MD URINE ORDERABLES Final Res ult Performing Organization Address [facility] de Phone Number [facility] [address] [place] [address] * (ABNORMAL) URINALYSIS MICROSCOPY ONLY (01/24/2008 4:54 PM CDT) RBC UA None Seen 0 - 2 [facility] HYALINE CAST None Seen 0 - 2 [facility] BACTERIA UA Few(A) None Seen [facility] WBC URINE 0-2 0 - 2 [facility] Urine specimen (specimen) 01/24/2008 4:54 PM CDT 01/24/2008 4:54 PM CDT John Power MD URINE ORDERABLES Final Res ult Performing Organization Address [facility] de Phone Number [facility] [address] [place] [address] * CT HEAD WO CONTRAST (01/24/2008 2:43 PM CDT) Anatomical Region Laterality Modality Head Other 01/24/2008 2:43 PM CDT Narrative 01/25/2008 7:47 AM CDT Noncontrast axial images were obtained through the brain. History is headache and dizziness and confusion. Correlation is made with report from previous exam from 01/26/2005. Ventricles are normal in size. A small right frontal subcortical hypodensity is present on slice 25 which may represent old ischemic change or demyelination. Otherwise no mass, hemorrhage or abnormal extra-axial fluid collection is seen. Old right orbital fractures are noted. IMPRESSION No acute abnormality. Old right orbital fractures are noted in addition to a small right subcortical frontal white matter lesion. Dictated By: Bart Weller M.D. Electronically Signed By: Bart Weller M.D. Date Signed: 01/25/08 Procedure Note Bart Weller W - 01/25/2008 Noncontrast axial images were obtained through the brain. History isheadache and dizziness and confusion. Correlation is made with report from previous exam from01/26/2005. Ventricles are normal in size. A small right frontal subcorticalhypodensity is present on slice 25 which may represent old ischemic change or demyelination. Otherwise no mass,hemorrhage or abnormal extra-axial fluid collection is seen. Old right orbital fractures arenoted. IMPRESSION No acute abnormality. Old right orbital fractures are noted inaddition to a small right subcortical frontal white matter lesion. Dictated By: Bart Weller M.D. Electronically Signed By: Bart Weller M.D. Date Signed: 01/25/08 us Carlos A Henao MD CT ORDERABLES Final Result * TSH (01/24/2008 2:06 PM CDT) TSH 2.930 0.350 - 5.500 uIU/ml [facility] Blood specimen (specimen) 01/24/2008 2:06 PM CDT 01/24/2008 2:55 PM CDT us John Power MD CHEMISTRY ORDERABLES Final Result [facility] [address] [place] [address] * T4 FREE (01/24/2008 2:06 PM CDT) [facility] T4 FREE 0.90 0.89 - 1.76 ng/dL [facility] Blood specimen (specimen) 01/24/2008 2:06 PM CDT 01/24/2008 2:55 PM CDT John Power MD CHEMISTRY ORDERABLES Final Result Performing Organization Address [facility] de Phone Number [facility] [address] [place] [address] * (ABNORMAL) BASIC METABOLIC PANEL (01/24/2008 2:06 PM CDT) [facility] ANION GAP 11 9 - 20 mEq/L [facility] SODIUM 138 136 - 145 mEq/L [facility] BUN 15 7 - 17 mg/dL [facility] CO2 31 22 - 32 mmol/l [facility] POTASSIUM 4.9 3.5 - 5.0 mEq/L [facility] Comment: Specimen slightly hemolyzed OSMOLALITY, CALCULATED 308(H) 275 - 295 mOsm/Kg [facility] CREATININE 1.3(H) 0.7 - 1.2 mg/dL [facility] CALCIUM 9.4 8.4 - 10.5 mg/dL [facility] GLUCOSE 490(H) 70 - 110 mg/dL [facility] CHLORIDE 101 95 - 110 mEq/L [facility] Blood specimen (specimen) 01/24/2008 2:06 PM CDT 01/24/2008 2:13 PM CDT us Carlos A Henao MD CHEMISTRY ORDERABLES Final Resul t Performing Organization Address [facility] Co de Phone Number [facility] [address] [place] [address] * PT AND APTT (01/24/2008 2:06 PM CDT) PTT 27.0 22.5 - 36.5 Secs [facility] Comment: Therapeutic Range: Hi-level PE/DVT heparin protocol 80.1 -95.0 sec Lo-level PE/DVT heparin protocol 67.1 - 80.0 sec Cardiac Heparin Protocol 67.1 - 85.0 sec Neuro Heparin Protocol 67.1 - 80.0 sec As of 12/08/2007 note change in APTT Normal Range. PROTIME 13.3 12.8 - 15.8 Secs [facility] Comment:As of 2007 not e change in normal range. INR 0.9 [facility] Comment: Expected Values for INR: DVT/PE Goal INR 2.5; range 2.0 - 3.0 Valve Replacement Tissue Goal INR 2.5; range 2.0 - 3.0 Mechanical Goal INR 3.0; range 2.5 - 3.5 POST-KS Goal INR 2.5; range 2.0 - 3.0 or Goal 3.0; range 2.5 - 3.5 Atrial Fibrillation Goal INR 2.5; range 2.0 - 3.0 Ischemic Stroke Goal INR 2.5; range 2.0 - 3.0 For additional information see Guidelines for Anticoagulation available from the pharmacy [facility] [phone] Blood specimen (specimen) 01/24/2008 2:06 PM CDT 01/24/2008 2:13 PM CDT Carlos A Henao MD HEMATOLOGY ORDERABLES Edited [facility] [address] [place] [address] * (ABNORMAL) CBC WITH DIFFERENTIAL (01/24/2008 2:06 PM CDT) Pathologist [facility] MCV 87.5 84.0 - 103.0 Fl [facility] MPV 9.8 8.9 - 12.8 Fl [facility] MONOCYTE ABSOLUTE 0.6 0.1 - 0.6 K/ul [facility] BASOPHILS 0.5 0.0 - 1.0 % [facility] HEMOGLOBIN 15.0 12.0 - 16.0 g/dL [facility] RDW 13.4 11.0 - 14.5 % [facility] MONOCYTES 7.2 2.0 - 10.0 % [facility] WBC 8.6 4.8 - 10.8 K/ul [facility] MCH 27.9 27.0 - 34.0 pg [facility] NEUTROPHIL ABSOLUTE 5.6 2.0 - 8.0 K/ul [facility] NEUTROPHILS 65.0 42.2 - 75.2 % [facility] PERIPHERAL BLOOD SMEAR REVIEW Automated Diff [facility] EOSINOPHIL ABSOLUTE 0.2 0.0 - 0.7 K/ul [facility] HEMATOCRIT 47.1(H) 36.0 - 46.0 % [facility] EOSINOPHILS 2.7 0.0 - 7.0 % [facility] PLATELETS 290 140 - 440 K/ul [facility] RBC 5.38 4.20 - 5.40 Mil/ul [facility] LYMPHOCYTES 24.6 24.0 - 44.0 % [facility] MCHC 31.8 30.0 - 35.0 g/dL [facility] BASOPHILS ABSOLUTE 0.0 0.0 - 0.2 K/ul [facility] LYMPHOCYTE ABSOLUTE 2.1 1.2 - 4.0 K/ul [facility] Blood specimen (specimen) 01/24/2008 2:06 PM CDT 01/24/2008 2:13 PM CDT us Carlos A Henao MD HEMATOLOGY ORDERABLES Final Resu lt [facility] [address] [place] [address] * (ABNORMAL) POC GLUCOSE (01/24/2008 2:01 PM CDT) GLUCOSE POC >500(AA) 60 - 100 mg/dL [facility] COMMENT POC Lab Confirm [facility] Venous blood specimen (specimen) 01/24/2008 2:01 PM CDT 01/26/2008 6:56 AM CDT us John Power MD POINT OF CARE TESTING Rosetta terrazas Result [facility] [address] [place] [address] documented in this encounter Visit Diagnoses Not on filedocumented in this encounter Care Teams Table Assembler Metal Relationship Specialty Start Date End Date Adrienne March DO [address] [facility] [place] [address] PCP - General Family Practice 06/30/10 documented as of this encounter
--- OUTSIDE RECORDS SUMMARY | 2025-03-21 13:51 | XMS_ITS | Encounter Summary ---
Author Organization [facility] Address [address] [place] [address] Care Team Providers Care Occupational Therapy Department Chair Name Role Phone Adrienne March Primary Care Provider Encounter Details Date Type Department Care Team (Late st Contact Info) Description 11/03/2024 Lab Requisition [facility] [place] [address] [place] [phone] Wilsondecember, HARDBOARD SUPERVISOR [address] [place] [address] COVID-19 Social History Tobacco Use Types Packs/Day Years [...] insecurity Transportation Needs Answer Date Record ed Social/Environmental Concerns Food insecurity Comments No Sex and Gender Information Value Date Recorded Sex Assigned at Not on file Legal Sex Female 6:27 AM TECHNOLOGY INTERN Gender Identity Not on file Sexual Orientation Not on file documented as of this encounter Plan of Treatment Upcoming Encounters Date Type Department Care Team (Late st Contact Info) Description 05/15/2025 8:40 AM CDT Office Visit [facility] [address] [place] [address] Adrienne March, DO [address] [place] [address] 07/25/2025 10:00 AM TECHNOLOGY INTERN Office Visit [facility] [address] [place] [address] Adrienne March, DO [address] [place] [address] documented as of this encounter Procedures Procedure Name Priority Date/Time Associated Diagnosis Comments CBC WITH DIFFERENTIAL Stat 11/03/2024 12:15 PM TECHNOLOGY INTERN COVID-19 documented in this encounter Results * (ABNORMAL) CBC WITH DIFFERENTIAL (11/03/2024 12:15 PM TECHNOLOGY INTERN) WBC 9.6 4.0 - 10.0 K/uL 11/03/2024 12:24 PM [facility] RBC 3.54(L) 3.93 - 5.22 M/uL 11/03/2024 12:24 PM [facility] HEMOGLOBIN 10.9(L) 11.2 - 15.7 g/dL 11/03/2024 12:24 PM [facility] HEMATOCRIT 33.6(L) 34.1 - 44.9 % 11/03/2024 12:24 PM [facility] MCV 94.9(H) 79.4 - 94.8 fL 11/03/2024 12:24 PM [facility] MCH 30.8 25.6 - 32.2 pg 11/03/2024 12:24 PM [facility] MCHC 32.4 32.2 - 35.5 g/dL 11/03/2024 12:24 PM [facility] RDW 13.8 11.0 - 14.5 % 11/03/2024 12:24 PM [facility] RDW-STDEV 47.8 36.9 - 56.9 fL 11/03/2024 12:24 PM [facility] PLATELETS 256 163 - 337 K/uL 11/03/2024 12:24 PM [facility] MPV 8.2(L) 10.0 - 14.8 fL 11/03/2024 12:24 PM [facility] NEUTROPHILS 60 34 - 71 % 11/03/2024 12:24 PM [facility] LYMPHOCYTES 17(L) 19 - 52 % 11/03/2024 12:24 PM [facility] MONOCYTES 8 5 - 13 % 11/03/2024 12:24 PM [facility] EOSINOPHILS 15(H) 1 - 6 % 11/03/2024 12:24 PM [facility] BASOPHILS 1 0 - 1 % 11/03/2024 12:24 PM [facility] IMMATURE GRANULOCYTES 1 % 11/03/2024 12:24 PM [facility] NEUTROPHIL ABSOLUTE 5.71 1.56 - 6.13 K/uL 11/03/2024 12:24 PM [facility] LYMPHOCYTE ABSOLUTE 1.60 1.20 - 3.40 K/uL 11/03/2024 12:24 PM [facility] MONOCYTE ABSOLUTE 0.72(H) 0.24 - 0.36 K/uL 11/03/2024 12:24 PM TECHNOLOGY INTERN [facility] EOSINOPHIL ABSOLUTE 1.46(H) 0.04 - 0.36 K/uL 11/03/2024 12:24 PM TECHNOLOGY INTERN [facility] BASOPHILS ABSOLUTE 0.06 0.01 - 0.08 K/uL 11/03/2024 12:24 PM TECHNOLOGY INTERN [facility] IMMATURE GRANULOCYTES ABSOLUTE 0.05 K/uL 11/03/2024 12:24 PM TECHNOLOGY INTERN [facility] Blood Collection / Unknown 11/03/2024 12:15 PM TECHNOLOGY INTERN 11/03/2024 12:21 PM TECHNOLOGY INTERN December HARDBOARD SUPERVISOR HEMATOLOGY ORDERABLES Final Resu lt [facility] CLIA # [id number] [address] [place] [id number] documented in this encounter Visit Diagnoses Diagnosis COVID-19 documented in this encounter Additional Health Concerns Infection Onset Date Last Indicated Resolved Time COVID-19 10/30/2024 10/30/2024 11/19/2024 1:16 AM TECHNOLOGY INTERN documented as of this encounter Care Teams Occupational Therapy Department Chair Relationship Specialty Start Date End Date Adrienne March DO [address] [place] [address] PCP - General Family Practice 06/30/10 documented as of this encounter
--- OUTSIDE RECORDS SUMMARY | 2025-03-21 13:51 | XMS_ITS | Encounter Summary ---
Author Organization [facility] Address [address] [place] [address] Care Team Providers Care Maintenance Inspector Name Role Phone Adrienne March DO Primary Care Provider Encounter Details Date Type Department Care Team (Late st Contact Info) Description 10/24/2007 Outpatient Historical [facility] Medicine- [place] [address] [place] [address] Gamal Bass, CEMENT MASON MAINTENANCE [address] [place] [address] Social History Tobacco Use Types Packs/Day Years Used Date Smoking Tobacco: Never Assessed Comments Unknown Sex and Gender Information Value Date Recorded Sex Assigned at Not on file 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
--- OUTSIDE RECORDS SUMMARY | 2025-03-21 13:51 | XMS_ITS | Encounter Summary ---
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
--- OUTSIDE RECORDS SUMMARY | 2025-03-21 13:51 | XMS_ITS | Encounter Summary ---
Author Organization [facility] Address [address] [place] [address] Care Team Providers Care Clin Tech Name Role Phone Adrienne March DO Primary Care Provider Encounter Details Date Type Department Care Team (Late st Contact Info) Description 03/25/2020 Ancillary Orders [facility] Medicine [place] [address] [place] [address] Adrienne March DO [address] [place] [address] Crushing injury of left elbow, initial encounter Social History Tobacco Use Types Packs/Day Years Used Date Smoking Tobacco: Never Smokeless Tobacco: Never Alcohol Use Standard Drinks/Week Comments No 0 (1 standard drink = 0.6 oz pur e alcohol) Comments No Sex and Gender Information Value Date Recorded Sex Assigned at Not on file Legal Sex Female 3:34 AM 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 No / Unsure 03/25/2020 8:21 AM CDT documented as of this encounter Plan of Treatment Not on file documented as of this encounter Results * XR ELBOW 3+ VW LEFT (03/25/2020 11:22 AM CDT) Anatomical Region Laterality Modality Upper Extremity Computed Radiogr aphy 03/25/2020 11:2 3 AM CDT Impressions 03/25/2020 2:46 PM CDT IMPRESSION: Soft tissue swelling without evidence of an acute osseous abnormality. [id number] Narrative 03/25/2020 2:46 PM CDT Exam: XR ELBOW 3+ VW LEFT Date/Time of Exam: 03/25/2020 11:22 AM Reason For Exam: See Diagnosis. Diagnosis: Crushing injury of left elbow, initial encounter. Comparison: None. Findings: There is a chronic appearing deformity involving the distal radial metaphysis likely relating to remote injury. There is no evidence of an acute fracture or dislocation. There are mild elbow joint degenerative changes. There is no apparent joint effusion. The soft tissues appear mildly edematous. Procedure Note Jonny Chand, - 03/25/2020 Exam: XR ELBOW 3+ VW LEFT Date/Time of Exam: 03/25/2020 11:22 AM Reason For Exam: See Diagnosis. Diagnosis: Crushing injury of left elbow, initial encounter. Comparison: None. Findings: There is a chronic appearing deformity involving the distal radial metaphysis likely relating to remote injury. There is no evidence of an acute fracture or dislocation. There are mild elbow joint degenerative changes. There is no apparent joint effusion. The soft tissues appear mildly edematous. IMPRESSION: Soft tissue swelling without evidence of an acute osseous abnormality. [id number] Adrienne March DO DIAGNOSTIC IMAGING ORDERABL ES Final Result documented in this encounter Visit Diagnoses Diagnosis Crushing injury of left elbow, initial encounter Crushing injury of left elbow, initial encounter documented in this encounter Care Teams Clin Tech Relationship Specialty Start Date End Date Adrienne March DO [address] [place] [address] PCP - General Family Practice 06/30/10 documented as of this encounter
--- OUTSIDE RECORDS SUMMARY | 2025-03-21 13:51 | XMS_ITS | Encounter Summary ---
Author Organization [facility] Address [address] [place] [address] Care Team Providers Care Studio Couch Frame Builder Name Role Phone Adrienne March DO Primary Care Provider Encounter Details Date Type Department Care Team (Latest Contact Info) Description 04/19/2007 Outpatient Historical [facility] Gen Spec Surg [place] 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
--- OUTSIDE RECORDS SUMMARY | 2025-03-21 13:51 | XMS_ITS | Encounter Summary ---
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
--- OUTSIDE RECORDS SUMMARY | 2025-03-21 13:51 | XMS_ITS | Encounter Summary ---
Author Organization [facility] Address [address] [place] [address] Care Team Providers Care Product Manager E Commerce Name Role Phone Adrienne March DO Primary Care Provider Encounter Details Date Type Department Care Team (Late st Contact Info) Description 09/28/2007 Outpatient Historical [facility] Medicine- [place] [address] [place] [address] Alexei Elizabeth MD [address] [place] [address] Social History Tobacco Use Types Packs/Day Years Used Date Smoking Tobacco: Never Assessed Comments Unknown Sex and Gender Information Value Date Recorded Sex Assigned at Not on file 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
--- OUTSIDE RECORDS SUMMARY | 2025-03-21 13:51 | XMS_ITS | Encounter Summary ---
Author Organization [facility] Address [address] [place] [address] Care Team Providers Care Construction Sales Representative Name Role Phone Adrienne March Primary Care Provider Encounter Details Date Type Department Care Team (Late st Contact Info) Description 11/15/2007 Outpatient Historical [facility] Gen Spec Surg [place] [address] [place] [address] Ketan Lew MD [address] [place] [address] Social History Tobacco Use Types Packs/Day Years Used Date Smoking Tobacco: Never Assessed Comments Unknown Sex and Gender Information Value Date Recorded Sex Assigned at Not on file Legal Sex Female 3:34 AM TELEMETRY RN Gender Identity Not on file Sexual Orientation Not on file documented as of this encounter Progress Notes * Ketan Lew - 11/15/2007 12:00 AM CST Patient Name: Tiffany Sheffield DOS: 11/15/2007 : 1945 The patient comes in for follow-up visit. Her wound is about half what it was last time now measuring 1 x 3 to 3 ?? cm. This is clean, pink, and appears to be granulating. Hopefully it will continue to heal at this rate. We will see her back in about six weeks and perhaps by then it will be nearly closed. Ketan Lew M.D. General & Specialty Surgery Electronically Signed by Ketan Lew M.D. 11/25/2007 05:51 , A, trina Job #: Document #: [id number] cc: Alexei Dubon D.O. METRY RN documented in this encounter Plan of Treatment Not on file documented as of this encounter Visit Diagnoses Not on filedocumented in this encounter Care Teams Construction Sales Representative Relationship Specialty Start Date End Date Adrienne March DO [address] [place] [address] PCP - General Family Practice 06/30/10 documented as of this encounter
--- OUTSIDE RECORDS SUMMARY | 2025-03-21 13:51 | XMS_ITS | Encounter Summary ---
Author Organization [facility] Address [address] [place] [address] Care Team Providers Care Pilot Captain Name Role Phone Adrienne March DO Primary Care Provider Encounter Details Date Type Department Care Team (Latest Contact Info) Description 10/26/2001 Outpatient [facility] [place] [address] [place] [address] Abel Hurtado, DPM NO ADDRESS ON FILE Pain in limb (Primary Dx) Social History Tobacco Use Types Packs/Day Years Used Date Smoking Tobacco: Never Assessed Comments Unknown Sex and Gender Information Value Date Recorded Sex Assigned at Not on file 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
--- OUTSIDE RECORDS SUMMARY | 2025-03-21 13:51 | XMS_ITS | Encounter Summary ---
Author Organization [facility] Address [address] [place] [address] Care Team Providers Care Test Examiner Name Role Phone Adrienne March DO Primary Care Provider Encounter Details Date Type Department Care Team (Latest Contact Info) Description 08/18/2001 Outpatient [facility] Podiatry-[facility] [place] [address] [place] [address] Abel Hurtado, DPM NO ADDRESS ON FILE Pain in limb (Primary Dx) Social History Tobacco Use Types Packs/Day Years Used Date Smoking Tobacco: Never Assessed Comments Unknown Sex and Gender Information Value Date Recorded Sex Assigned at Not on file 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
--- OUTSIDE RECORDS SUMMARY | 2025-03-21 13:51 | XMS_ITS | Encounter Summary ---
Author Organization [facility] Address [address] 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
--- OUTSIDE RECORDS SUMMARY | 2025-03-21 13:51 | XMS_ITS | Encounter Summary ---
Author Organization [facility] Address [address] [place] [address] Care Team Providers Care Machine Try Out Setter Name Role Phone Adrienne March DO Primary Care Provider Encounter Details Date Type Department Care Team (Latest Contact Info) Description 05/17/2007 Outpatient Historical [facility] Gen Spec Surg [place] 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
--- OUTSIDE RECORDS SUMMARY | 2025-03-21 13:51 | XMS_ITS | Encounter Summary ---
Author Organization [facility] Address [address] [place] [address] Care Team Providers Care Senior Sales Assistant Name Role Phone Adrienne March DO Primary Care Provider Encounter Details Date Type Department Care Team (Latest Contact Info) Description 06/07/2007 Outpatient Historical [facility] Cardiovascular Services [address] [place] [address] [place] [address] Ketan Lew MD [address] [address] Swelling of Limb (Primary Dx) Social History Tobacco Use Types Packs/Day Years Used Date Smoking Tobacco: Never Assessed Comments Unknown Sex and Gender Information Value Date Recorded Sex Assigned at Not on file 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
--- OUTSIDE RECORDS SUMMARY | 2025-03-21 13:51 | XMS_ITS | Encounter Summary ---
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
--- OUTSIDE RECORDS SUMMARY | 2025-03-21 13:51 | XMS_ITS | Encounter Summary ---
Author Organization [facility] Address [address] [place] [address] Care Team Providers Care Comptroller Name Role Phone Adrienne March DO Primary Care Provider Encounter Details Date Type Department Care Team (Latest Contact Info) Description 07/13/2001 Outpatient Historical [facility] Neurology [address] [place] [address] [place] Clemente NO ADDRESS ON FILE Pain in limb (Primary Dx) Social History Tobacco Use Types Packs/Day Years Used Date Smoking Tobacco: Never Assessed Comments Unknown Sex and Gender Information Value Date Recorded Sex Assigned at Not on file 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
--- OUTSIDE RECORDS SUMMARY | 2025-03-21 13:52 | XMS_ITS | Encounter Summary ---
Author Organization [facility] Address [address] [place] [address] Care Team Providers Care Department Of Sociology Chair Name Role Phone Adrienne March DO Primary Care Provider Encounter Details Date Type Department Care Team (Late st Contact Info) Description 08/01/2004 Outpatient [facility] [address] [place] [address] [address] Wilfredo Michel MD [address] [address] Social History Tobacco Use Types Packs/Day Years Used Date Smoking Tobacco: Never Assessed Comments Unknown Sex and Gender Information Value Date Recorded Sex Assigned at Not on file 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
--- OUTSIDE RECORDS SUMMARY | 2025-03-21 13:52 | XMS_ITS | Encounter Summary ---
Author Organization [facility] Address [address] [place] [address] Care Team Providers Care Rawhide Bone Roller Name Role Phone Adrienne March DO Primary Care Provider +1- [phone] Encounter Details Date Type Department Care Team (Latest Contact Info) Description 01/06/2005 Outpatient [facility] Podiatry-[facility] [place] [address] [place] [address] Abel Hurtado, MARCE NO ADDRESS ON FILE CALCANEAL SPUR (Primary Dx); EXOSTOSIS, SITE NOS Social History Tobacco Use Types Packs/Day Years Used Date Smoking Tobacco: Never Assessed Comments Unknown Sex and Gender Information Value Date Recorded Sex Assigned at Not on file 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
--- OUTSIDE RECORDS SUMMARY | 2025-03-21 13:52 | XMS_ITS | Encounter Summary ---
Author Organization [facility] Address [address] [place] [address] Care Team Providers Care Front Desk Coordinator Name Role Phone Adrienne March Primary Care Provider Encounter Details Date Type Department Care Team (Late st Contact Info) Description 02/15/2007 Inpatient Historical HIS IN BED Ketan Lew MD [address] [address] Posttraumatic Wound Infection not Elsewhere Classified (Primary Dx) Social History Tobacco Use Types Packs/Day Years Used Date Smoking Tobacco: Never Assessed Comments Unknown Sex and Gender Information Value Date Recorded Sex Assigned at Not on file 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 Gender Identity Not on file Sexual Orientation Not on file documented as of this encounter Plan of Treatment Not on file documented as of this encounter Procedures Procedure Name Priority Date/Time Associated Diagnosis Comments POC GLUCOSE Routine 02/21/2007 11:01 AM CDT POC GLUCOSE Routine 02/21/2007 6:12 AM CDT POC GLUCOSE Routine 02/20/2007 9:07 PM CDT POC GLUCOSE Routine 02/20/2007 5:32 PM CDT POC GLUCOSE Routine 02/20/2007 11:55 AM CDT POC GLUCOSE Routine 02/20/2007 6:25 AM CDT POC GLUCOSE Routine 02/19/2007 8:48 PM CDT POC GLUCOSE Routine 02/19/2007 5:23 PM CDT POC GLUCOSE Routine 02/19/2007 11:35 AM CDT POC GLUCOSE Routine 02/19/2007 7:12 AM CDT POC GLUCOSE Routine 02/18/2007 9:23 PM CDT POC GLUCOSE Routine 02/18/2007 5:26 PM CDT POC GLUCOSE Routine 02/18/2007 11:31 AM CDT POC GLUCOSE Routine 02/18/2007 6:23 AM CDT POC GLUCOSE Routine 02/17/2007 8:10 PM CDT POC GLUCOSE Routine 02/17/2007 4:41 PM CDT POC GLUCOSE Routine 02/17/2007 11:02 AM CDT POC GLUCOSE Routine 02/17/2007 5:54 AM CDT POC GLUCOSE Routine 02/16/2007 8:30 PM CDT POC GLUCOSE Routine 02/16/2007 11:12 AM CDT POC GLUCOSE Routine 02/16/2007 6:26 AM CDT PT AND APTT Routine 02/15/2007 6:33 PM CDT CBC WITH DIFFERENTIAL Routine 02/15/2007 6:33 PM CDT COMPREHENSIVE METABOLIC PANEL Routine 02/15/2007 6:33 PM CDT documented in this encounter Results * POC GLUCOSE (02/21/2007 11:01 AM CDT) GLUCOSE POC 88 60 - 100 mg/dL INTERFACE SYSTEM 02/21/2007 11:0 1 AM CDT us Ketan Lew MD POINT OF CARE TESTING Edited Performing Organization Address [facility] Phone Number INTERFACE SYSTEM Refer to clinic/hospital department * (ABNORMAL) POC GLUCOSE (02/21/2007 6:12 AM CDT) GLUCOSE POC 116(H) 60 - 100 mg/dL INTERFACE SYSTEM 02/21/2007 6:12 AM CDT us Ketan Lew MD POINT OF CARE TESTING Edited Performing Organization Address [facility] Phone Number INTERFACE SYSTEM Refer to clinic/hospital department * (ABNORMAL) POC GLUCOSE (02/20/2007 9:07 PM CDT) GLUCOSE POC 141(H) 60 - 100 mg/dL INTERFACE SYSTEM 02/20/2007 9:07 PM CDT us Ketan Lew MD POINT OF CARE TESTING Edited Performing Organization Address [facility] Phone Number INTERFACE SYSTEM Refer to clinic/hospital department * (ABNORMAL) POC GLUCOSE (02/20/2007 5:32 PM CDT) GLUCOSE POC 102(H) 60 - 100 mg/dL INTERFACE SYSTEM 02/20/2007 5:32 PM CDT us Ketan Lew MD POINT OF CARE TESTING Edited Performing Organization Address [facility] Phone Number INTERFACE SYSTEM Refer to clinic/hospital department * (ABNORMAL) POC GLUCOSE (02/20/2007 11:55 AM CDT) GLUCOSE POC 55(L) 60 - 100 mg/dL INTERFACE SYSTEM 02/20/2007 11:5 5 AM CDT us Ketan Lew MD POINT OF CARE TESTING Edited Performing Organization Address [facility] de Phone Number INTERFACE SYSTEM Refer to clinic/hospital department * (ABNORMAL) POC GLUCOSE (02/20/2007 6:25 AM CDT) GLUCOSE POC 119(H) 60 - 100 mg/dL INTERFACE SYSTEM 02/20/2007 6:25 AM CDT us Ketan Lew MD POINT OF CARE TESTING Edited Performing Organization Address [facility] Phone Number INTERFACE SYSTEM Refer to clinic/hospital department * (ABNORMAL) POC GLUCOSE (02/19/2007 8:48 PM CDT) GLUCOSE POC 115(H) 60 - 100 mg/dL INTERFACE SYSTEM 02/19/2007 8:48 PM CDT us Ketan Lew MD POINT OF CARE TESTING Edited Performing Organization Address [facility] de Phone Number INTERFACE SYSTEM Refer to clinic/hospital department * (ABNORMAL) POC GLUCOSE (02/19/2007 5:23 PM CDT) GLUCOSE POC 108(H) 60 - 100 mg/dL INTERFACE SYSTEM 02/19/2007 5:23 PM CDT us Ketan Lew MD POINT OF CARE TESTING Edited Performing Organization Address [facility] de Phone Number INTERFACE SYSTEM Refer to clinic/hospital department * POC GLUCOSE (02/19/2007 11:35 AM CDT) GLUCOSE POC 75 60 - 100 mg/dL INTERFACE SYSTEM 02/19/2007 11:3 5 AM CDT us Ketan Lew MD POINT OF CARE TESTING Edited Performing Organization Address [facility] de Phone Number INTERFACE SYSTEM Refer to clinic/hospital department * (ABNORMAL) POC GLUCOSE (02/19/2007 7:12 AM CDT) GLUCOSE POC 123(H) 60 - 100 mg/dL INTERFACE SYSTEM 02/19/2007 7:12 AM CDT us Ketan Lew MD POINT OF CARE TESTING Edited Performing Organization Address [facility] Phone Number INTERFACE SYSTEM Refer to clinic/hospital department * (ABNORMAL) POC GLUCOSE (02/18/2007 9:23 PM CDT) GLUCOSE POC 158(H) 60 - 100 mg/dL INTERFACE SYSTEM 02/18/2007 9:23 PM CDT us Ketan Lew MD POINT OF CARE TESTING Edited Performing Organization Address [facility] Phone Number INTERFACE SYSTEM Refer to clinic/hospital department * POC GLUCOSE (02/18/2007 5:26 PM CDT) GLUCOSE POC 87 60 - 100 mg/dL INTERFACE SYSTEM 02/18/2007 5:26 PM CDT us Ketan Lew MD POINT OF CARE TESTING Edited Performing Organization Address [facility] Phone Number INTERFACE SYSTEM Refer to clinic/hospital department * POC GLUCOSE (02/18/2007 11:31 AM CDT) GLUCOSE POC 93 60 - 100 mg/dL INTERFACE SYSTEM 02/18/2007 11:3 1 AM CDT us Ketan Lew MD POINT OF CARE TESTING Edited Performing Organization Address [facility] de Phone Number INTERFACE SYSTEM Refer to clinic/hospital department * (ABNORMAL) POC GLUCOSE (02/18/2007 6:23 AM CDT) GLUCOSE POC 125(H) 60 - 100 mg/dL INTERFACE SYSTEM 02/18/2007 6:23 AM CDT us Ketan Lew MD POINT OF CARE TESTING Edited Performing Organization Address [facility] de Phone Number INTERFACE SYSTEM Refer to clinic/hospital department * (ABNORMAL) POC GLUCOSE (02/17/2007 8:10 PM CDT) GLUCOSE POC 182(H) 60 - 100 mg/dL INTERFACE SYSTEM 02/17/2007 8:10 PM CDT us Ketan Lew MD POINT OF CARE TESTING Edited Performing Organization Address [facility] de Phone Number INTERFACE SYSTEM Refer to clinic/hospital department * (ABNORMAL) POC GLUCOSE (02/17/2007 4:41 PM CDT) GLUCOSE POC 122(H) 60 - 100 mg/dL INTERFACE SYSTEM 02/17/2007 4:41 PM CDT us Ketan Lew MD POINT OF CARE TESTING Edited Performing Organization Address [facility] de Phone Number INTERFACE SYSTEM Refer to clinic/hospital department * (ABNORMAL) POC GLUCOSE (02/17/2007 11:02 AM CDT) GLUCOSE POC 115(H) 60 - 100 mg/dL INTERFACE SYSTEM 02/17/2007 11:0 2 AM CDT us Ketan Lew MD POINT OF CARE TESTING Edited Performing Organization Address [facility] de Phone Number INTERFACE SYSTEM Refer to clinic/hospital department * (ABNORMAL) POC GLUCOSE (02/17/2007 5:54 AM CDT) GLUCOSE POC 147(H) 60 - 100 mg/dL INTERFACE SYSTEM 02/17/2007 5:54 AM CDT us Ketan Lew MD POINT OF CARE TESTING Edited Performing Organization Address [facility] de Phone Number INTERFACE SYSTEM Refer to clinic/hospital department * (ABNORMAL) POC GLUCOSE (02/16/2007 8:30 PM CDT) GLUCOSE POC 121(H) 60 - 100 mg/dL INTERFACE SYSTEM 02/16/2007 8:30 PM CDT us Ketan Lew MD POINT OF CARE TESTING Edited Performing Organization Address [facility] Phone Number INTERFACE SYSTEM Refer to clinic/hospital department * (ABNORMAL) POC GLUCOSE (02/16/2007 11:12 AM CDT) GLUCOSE POC 117(H) 60 - 100 mg/dL INTERFACE SYSTEM 02/16/2007 11:1 2 AM CDT us Ketan Lew MD POINT OF CARE TESTING Edited Performing Organization Address [facility] Phone Number INTERFACE SYSTEM Refer to clinic/hospital department * (ABNORMAL) POC GLUCOSE (02/16/2007 6:26 AM CDT) GLUCOSE POC 128(H) 60 - 100 mg/dL INTERFACE SYSTEM 02/16/2007 6:26 AM CDT us Ketan Lew MD POINT OF CARE TESTING Edited Performing Organization Address [facility] Phone Number INTERFACE SYSTEM Refer to clinic/hospital department * PT AND APTT (02/15/2007 6:33 PM CDT) PROTIME 14.6 13.0 - 15.7 Secs INTERFACE SYSTEM Comment: As of 06 note change in normal range. INR 1.0 INTERFACE SYSTEM Comment: Expected Values for INR: DVT/PE Goal INR 2.5; range 2.0 - 3.0 Valve Replacement Tissue Goal INR 2.5; range 2.0 - 3.0 Mechanical Goal INR 3.0; range 2.5 - 3.5 POST-MS Goal INR 2.5; range 2.0 - 3.0 or Goal 3.0; range 2.5 - 3.5 Atrial Fibrillation Goal INR 2.5; range 2.0 - 3.0 Ischemic Stroke Goal INR 2.5; range 2.0 - 3.0 For additional information see Guidelines for Anticoagulation available from the pharmacy [facility] PTT 28.8 21.6 - 35.6 Secs INTERFACE SYSTEM Comment: Therapeutic Range: Hi-level PE/DVT heparin protocol 80.1 -95.0 sec Lo-level PE/DVT heparin protocol 67.1 - 80.0 sec Cardiac Heparin Protocol 67.1 - 85.0 sec Neuro Heparin Protocol 67.1 - 80.0 sec As of 08/26/2006 note change in APTT Normal Range. 02/15/2007 6:33 PM CDT Nakul Gallagher DO HEMATOLOGY ORDERABLES Edit ed INTERFACE SYSTEM Refer to clinic/hospital department * (ABNORMAL) COMPREHENSIVE METABOLIC PANEL (02/15/2007 6:33 PM CDT) GLUCOSE 168(H) 70 - 110 mg/dL INTERFACE SYSTEM BUN 14 7 - 17 mg/dL INTERFACE SYSTEM CREATININE 1.1 0.7 - 1.2 mg/dL INTERFACE SYSTEM SODIUM 143 136 - 145 mEq/L INTERFACE SYSTEM POTASSIUM 3.7 3.5 - 5.0 mEq/L INTERFACE SYSTEM CHLORIDE 108 95 - 110 mEq/L INTERFACE SYSTEM CO2 26 22 - 32 mmol/l INTERFACE SYSTEM CALCIUM 9.4 8.4 - 10.5 mg/dL INTERFACE SYSTEM TOTAL PROTEIN 7.4 6.3 - 8.2 g/dL INTERFACE SYSTEM ALBUMIN 3.8 3.5 - 5.0 g/dL INTERFACE SYSTEM ALKALINE PHOSPHATASE 88 25 - 100 U/L INTERFACE SYSTEM AST 26 8 - 33 U/L INTERFACE SYSTEM ALT 18 4 - 36 IU/L INTERFACE SYSTEM BILIRUBIN TOTAL 0.1(L) 0.3 - 1.2 mg/dL INTERFACE SYSTEM GLOBULIN (CALC) 3.6 2.4 - 3.9 g/dL INTERFACE SYSTEM ALBUMIN/GLOBULIN RATIO 1.1 1.0 - 2.3 INTERFACE SYSTEM ANION GAP 13 9 - 20 mEq/L INTERFACE SYSTEM OSMOLALITY, CALCULATED 297(H) 275 - 295 mOsm/Kg INTERFACE SYSTEM 02/15/2007 6:33 PM CDT Nakul Gallagher DO CHEMISTRY ORDERABLES Edite d INTERFACE SYSTEM Refer to clinic/hospital department * (ABNORMAL) CBC WITH DIFFERENTIAL (02/15/2007 6:33 PM CDT) WBC 8.3 4.8 - 10.8 K/ul INTERFACE SYSTEM RBC 4.99 4.20 - 5.40 Mil/ul INTERFACE SYSTEM HEMOGLOBIN 13.9 12.0 - 16.0 g/dL INTERFACE SYSTEM HEMATOCRIT 42.6 36.0 - 46.0 % INTERFACE SYSTEM MCV 85.4 84.0 - 103.0 Fl INTERFACE SYSTEM MCH 27.9 27.0 - 34.0 pg INTERFACE SYSTEM MCHC 32.6 30.0 - 35.0 g/dL INTERFACE SYSTEM RDW 13.6 11.0 - 14.5 % INTERFACE SYSTEM PLATELETS 293 140 - 440 K/ul INTERFACE SYSTEM MPV 9.2 8.9 - 12.8 Fl INTERFACE SYSTEM NEUTROPHILS 63.1 42.2 - 75.2 % INTERFACE SYSTEM LYMPHOCYTES 25.8 24.0 - 44.0 % INTERFACE SYSTEM MONOCYTES 7.9 2.0 - 10.0 % INTERFACE SYSTEM EOSINOPHILS 2.8 0.0 - 7.0 % INTERFACE SYSTEM BASOPHILS 0.4 0.0 - 1.0 % INTERFACE SYSTEM NEUTROPHIL ABSOLUTE 5.2 2.0 - 8.0 K/ul INTERFACE SYSTEM LYMPHOCYTE ABSOLUTE 2.1 1.2 - 4.0 K/ul INTERFACE SYSTEM MONOCYTE ABSOLUTE 0.7(H) 0.1 - 0.6 K/ul INTERFACE SYSTEM EOSINOPHIL ABSOLUTE 0.2 0.0 - 0.7 K/ul INTERFACE SYSTEM BASOPHILS ABSOLUTE 0.0 0.0 - 0.2 K/ul INTERFACE SYSTEM 02/15/2007 6:33 PM CDT Nakul Gallagher DO HEMATOLOGY ORDERABLES Edit ed Performing Organization Address City/State/[facility] Co de Phone Number INTERFACE SYSTEM Refer to clinic/hospital department documented in this encounter Visit Diagnoses Diagnosis Posttraumatic wound infection not elsewhere classified- Primary documented in this encounter Care Teams Front Desk Coordinator Relationship Specialty Start Date End Date Adrienne March DO [address] [place] [id number] PCP - General Family Practice 06/30/10 documented as of this encounter
--- OUTSIDE RECORDS SUMMARY | 2025-03-21 13:52 | XMS_ITS | Encounter Summary ---
Author Organization [facility] Address [address] [place] [address] Care Team Providers Care Outfitter Cabin Name Role Phone Adrienne March DO Primary Care Provider [phone] Encounter Details Date Type Department Care Team (Latest Contact Info) Description 04/15/2005 Outpatient Historical [facility] 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
--- OUTSIDE RECORDS SUMMARY | 2025-03-21 13:52 | XMS_ITS | Encounter Summary ---
Author Organization [facility] Address [address] [place] [address] Care Team Providers Care Sampler Ovens Name Role Phone AncaAdrienne forbes Primary Care Provider Encounter Details Date Type Department Care Team (Late st Contact Info) Description 01/26/2005 Inpatient Historical HIS IN BED Nakul Nino MD [address] [id number] FX FEMUR SHAFT-CLOSED (CMS/HCC) (Primary Dx) Social History Tobacco Use Types Packs/Day Years Used Date Smoking Tobacco: Never Assessed Comments Unknown Sex and Gender Information Value Date Recorded Sex Assigned at Not on file Legal Sex Female 3:34 AM 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 Gender Identity Not on file Sexual Orientation Not on file documented as of this encounter Plan of Treatment Not on file documented as of this encounter Procedures Procedure Name Priority Date/Time Associated Diagnosis Comments POC GLUCOSE Routine 02/02/2005 10:33 AM CDT POC GLUCOSE Routine 02/02/2005 6:32 AM CDT POC GLUCOSE Routine 02/01/2005 9:17 PM CDT POC GLUCOSE Routine 02/01/2005 4:55 PM CDT POC GLUCOSE Routine 02/01/2005 11:51 AM CDT POC GLUCOSE Routine 02/01/2005 5:40 AM CDT POC GLUCOSE Routine 01/31/2005 9:34 PM CDT POC GLUCOSE Routine 01/31/2005 4:59 PM CDT POC GLUCOSE Routine 01/31/2005 11:04 AM CDT POC GLUCOSE Routine 01/31/2005 5:41 AM CDT POC GLUCOSE Routine 01/30/2005 8:52 PM CDT POC GLUCOSE Routine 01/30/2005 6:02 PM CDT POC GLUCOSE Routine 01/30/2005 10:54 AM CDT CBC WITH DIFFERENTIAL Routine 01/30/2005 6:32 AM CDT BASIC METABOLIC PANEL Routine 01/30/2005 6:32 AM CDT POC GLUCOSE Routine 01/30/2005 5:20 AM CDT POC GLUCOSE Routine 01/29/2005 8:52 PM CDT POC GLUCOSE Routine 01/29/2005 5:52 PM CDT POC GLUCOSE Routine 01/29/2005 11:10 AM CDT CBC WITHOUT DIFFERENTIAL Routine 01/29/2005 6:58 AM CDT BASIC METABOLIC PANEL Routine 01/29/2005 6:58 AM CDT POC GLUCOSE Routine 01/29/2005 6:03 AM CDT POC BLOOD GAS, LYTES AND H+H Routine 01/28/2005 10:15 PM CDT POC GLUCOSE Routine 01/28/2005 9:12 PM CDT POC GLUCOSE Routine 01/28/2005 5:36 PM CDT POC GLUCOSE Routine 01/28/2005 3:07 PM CDT HEMOGLOBIN A1C Routine 01/28/2005 1:50 PM CDT POC GLUCOSE Routine 01/28/2005 12:53 PM CDT POC GLUCOSE Routine 01/28/2005 12:11 PM CDT POC GLUCOSE Routine 01/28/2005 7:55 AM CDT POC GLUCOSE Routine 01/28/2005 7:08 AM CDT POC GLUCOSE Routine 01/28/2005 6:00 AM CDT POC GLUCOSE Routine 01/28/2005 2:41 AM CDT POC GLUCOSE Routine 01/28/2005 1:18 AM CDT POC GLUCOSE Routine 01/28/2005 12:20 AM CDT POC GLUCOSE Routine 01/27/2005 11:07 PM CDT POC GLUCOSE Routine 01/27/2005 10:14 PM CDT POC GLUCOSE Routine 01/27/2005 9:18 PM CDT POC GLUCOSE Routine 01/27/2005 7:36 PM CDT POC GLUCOSE Routine 01/27/2005 5:58 PM CDT POC GLUCOSE Routine 01/27/2005 5:08 PM CDT POC GLUCOSE Routine 01/27/2005 4:31 PM CDT POC GLUCOSE Routine 01/27/2005 3:02 PM CDT POC GLUCOSE Routine 01/27/2005 2:14 PM CDT POC GLUCOSE Routine 01/27/2005 12:57 PM CDT POC GLUCOSE Routine 01/27/2005 11:53 AM CDT POC GLUCOSE Routine 01/27/2005 11:07 AM CDT POC GLUCOSE Routine 01/27/2005 9:54 AM CDT POC GLUCOSE Routine 01/27/2005 8:06 AM CDT POC GLUCOSE Routine 01/27/2005 5:45 AM CDT POC GLUCOSE Routine 01/27/2005 4:50 AM CDT CBC WITH DIFFERENTIAL Routine 01/27/2005 4:17 AM CDT BASIC METABOLIC PANEL Routine 01/27/2005 4:17 AM CDT POC GLUCOSE Routine 01/27/2005 4:04 AM CDT POC GLUCOSE Routine 01/27/2005 3:00 AM CDT POC GLUCOSE Routine 01/27/2005 1:55 AM CDT POC GLUCOSE Routine 01/27/2005 12:09 AM CDT POC BLOOD GAS, LYTES AND H+H Routine 01/26/2005 10:25 PM CDT GLUCOSE LEVEL Routine 01/26/2005 10:19 PM CDT POC BLOOD GAS, LYTES AND H+H Routine 01/26/2005 9:39 PM CDT PROTIME-INR Routine 01/26/2005 7:18 PM CDT CBC WITH DIFFERENTIAL Routine 01/26/2005 7:00 PM CDT ETHANOL LEVEL Routine 01/26/2005 7:00 PM CDT BASIC METABOLIC PANEL Routine 01/26/2005 7:00 PM CDT documented in this encounter Results * (ABNORMAL) POC GLUCOSE (02/02/2005 10:33 AM CDT) GLUCOSE POC 106(H) 60 - 100 mg/dL INTERFACE SYSTEM 02/02/2005 10:3 3 AM CDT us Nakul Nino MD POINT OF CARE TESTING Final Result Performing Organization Address City/[facility] Co de Phone Number INTERFACE SYSTEM Refer to clinic/hospital department * (ABNORMAL) POC GLUCOSE (02/02/2005 6:32 AM CDT) GLUCOSE POC 105(H) 60 - 100 mg/dL INTERFACE SYSTEM 02/02/2005 6:32 AM CDT us Nakul Nino MD POINT OF CARE TESTING Final Result Performing Organization Address [facility] Phone Number INTERFACE SYSTEM Refer to clinic/hospital department * POC GLUCOSE (02/01/2005 9:17 PM CDT) GLUCOSE POC 95 60 - 100 mg/dL INTERFACE SYSTEM 02/01/2005 9:17 PM CDT Result Carrie Nino MD POINT OF CARE TESTING Final Result Performing Organization Address City/[facility] Co de Phone Number INTERFACE SYSTEM Refer to clinic/hospital department * POC GLUCOSE (02/01/2005 4:55 PM CDT) GLUCOSE POC 85 60 - 100 mg/dL INTERFACE SYSTEM 02/01/2005 4:55 PM CDT Result Carrie Nino MD POINT OF CARE TESTING Final Result Performing Organization Address City/[facility] de Phone Number INTERFACE SYSTEM Refer to clinic/hospital department * POC GLUCOSE (02/01/2005 11:51 AM CDT) GLUCOSE POC 96 60 - 100 mg/dL INTERFACE SYSTEM 02/01/2005 11:5 1 AM CDT Nakul Nino MD POINT OF CARE TESTING Final Result Performing Organization Address City/[facility] de Phone Number INTERFACE SYSTEM Refer to clinic/hospital department * (ABNORMAL) POC GLUCOSE (02/01/2005 5:40 AM CDT) GLUCOSE POC 118(H) 60 - 100 mg/dL INTERFACE SYSTEM 02/01/2005 5:40 AM CDT Nakul Nino MD POINT OF CARE TESTING Final Result Performing Organization Address [facility] Phone Number INTERFACE SYSTEM Refer to clinic/hospital department * (ABNORMAL) POC GLUCOSE (01/31/2005 9:34 PM CDT) GLUCOSE POC 108(H) 60 - 100 mg/dL INTERFACE SYSTEM 01/31/2005 9:34 PM CDT Nakul Nino MD POINT OF CARE TESTING Final Result Performing Organization Address [facility] Phone Number INTERFACE SYSTEM Refer to clinic/hospital department * POC GLUCOSE (01/31/2005 4:59 PM CDT) GLUCOSE POC 93 60 - 100 mg/dL INTERFACE SYSTEM 01/31/2005 4:59 PM CDT us Nakul Nino MD POINT OF CARE TESTING Final Result Performing Organization Address City/[facility] Co de Phone Number INTERFACE SYSTEM Refer to clinic/hospital department * POC GLUCOSE (01/31/2005 11:04 AM CDT) GLUCOSE POC 100 60 - 100 mg/dL INTERFACE SYSTEM 01/31/2005 11:0 4 AM CDT us Nakul Nino MD POINT OF CARE TESTING Final Result Performing Organization Address [facility] Co de Phone Number INTERFACE SYSTEM Refer to clinic/hospital department * (ABNORMAL) POC GLUCOSE (01/31/2005 5:41 AM CDT) GLUCOSE POC 106(H) 60 - 100 mg/dL INTERFACE SYSTEM 01/31/2005 5:41 AM CDT us Nakul Nino MD POINT OF CARE TESTING Final Result Performing Organization Address [facility] Phone Number INTERFACE SYSTEM Refer to clinic/hospital department * (ABNORMAL) POC GLUCOSE (01/30/2005 8:52 PM CDT) GLUCOSE POC 169(H) 60 - 100 mg/dL INTERFACE SYSTEM 01/30/2005 8:52 PM CDT us Nakul Nino MD POINT OF CARE TESTING Final Result Performing Organization Address [facility] Phone Number INTERFACE SYSTEM Refer to clinic/hospital department * POC GLUCOSE (01/30/2005 6:02 PM CDT) GLUCOSE POC 82 60 - 100 mg/dL INTERFACE SYSTEM 01/30/2005 6:02 PM CDT us Nakul Nino MD POINT OF CARE TESTING Final Result Performing Organization Address City/[facility] Co de Phone Number INTERFACE SYSTEM Refer to clinic/hospital department * (ABNORMAL) POC GLUCOSE (01/30/2005 10:54 AM CDT) GLUCOSE POC 126(H) 60 - 100 mg/dL INTERFACE SYSTEM 01/30/2005 10:5 4 AM CDT us Nakul Nino MD POINT OF CARE TESTING Final Result Performing Organization Address City/[facility] de Phone Number INTERFACE SYSTEM Refer to clinic/hospital department * (ABNORMAL) BASIC METABOLIC PANEL (01/30/2005 6:32 AM CDT) GLUCOSE 130(H) 70 - 110 mg/dL INTERFACE SYSTEM BUN 19(H) 7 - 17 mg/dL INTERFACE SYSTEM CREATININE 0.9 0.7 - 1.2 mg/dL INTERFACE SYSTEM SODIUM 144 136 - 145 mEq/L INTERFACE SYSTEM POTASSIUM 4.2 3.5 - 5.0 mEq/L INTERFACE SYSTEM CHLORIDE 105 95 - 110 mEq/L INTERFACE SYSTEM CO2 35(H) 22 - 32 mmol/l INTERFACE SYSTEM ANION GAP 8(L) 9 - 20 mEq/L INTERFACE SYSTEM OSMOLALITY, CALCULATED 300(H) 275 - 295 mOsm/Kg INTERFACE SYSTEM CALCIUM 7.9(L) 8.4 - 10.5 mg/dL INTERFACE SYSTEM 01/30/2005 6:32 AM CDT Nakul Nino MD CHEMISTRY ORDERABLES Final R esult Performing Organization Address [facility] de Phone Number INTERFACE SYSTEM Refer to clinic/hospital department * (ABNORMAL) CBC WITH DIFFERENTIAL (01/30/2005 6:32 AM CDT) WBC 15.4(H) 4.8 - 10.8 K/ul INTERFACE SYSTEM RBC 3.73(L) 4.20 - 5.40 Mil/ul INTERFACE SYSTEM HEMOGLOBIN 10.3(L) 12.0 - 16.0 g/dL INTERFACE SYSTEM HEMATOCRIT 33.5(L) 36.0 - 46.0 % INTERFACE SYSTEM MCV 89.8 84.0 - 103.0 Fl INTERFACE SYSTEM MCH 27.6 27.0 - 34.0 pg INTERFACE SYSTEM MCHC 30.7 30.0 - 35.0 g/dL INTERFACE SYSTEM RDW 15.7(H) 11.0 - 14.5 % INTERFACE SYSTEM PLATELETS 244 140 - 440 K/ul INTERFACE SYSTEM MPV 9.3 8.9 - 12.8 Fl INTERFACE SYSTEM NEUTROPHILS 70.9 42.2 - 75.2 % INTERFACE SYSTEM LYMPHOCYTES 14.1(L) 24.0 - 44.0 % INTERFACE SYSTEM MONOCYTES 11.3(H) 2.0 - 10.0 % INTERFACE SYSTEM EOSINOPHILS 3.2 0.0 - 7.0 % INTERFACE SYSTEM BASOPHILS 0.5 0.0 - 1.0 % INTERFACE SYSTEM NEUTROPHIL ABSOLUTE 10.9(H) 2.0 - 8.0 K/uL INTERFACE SYSTEM LYMPHOCYTE ABSOLUTE 2.2 1.2 - 4.0 K/ul INTERFACE SYSTEM MONOCYTE ABSOLUTE 1.7(H) 0.1 - 0.6 K/ul INTERFACE SYSTEM EOSINOPHIL ABSOLUTE 0.5 0.0 - 0.7 K/ul INTERFACE SYSTEM BASOPHILS ABSOLUTE 0.1 0.0 - 0.2 K/ul INTERFACE SYSTEM PERIPHERAL BLOOD SMEAR REVIEW Smear Reviewed INTERFACE SYSTEM 01/30/2005 6:32 AM CDT Nakul Nino MD HEMATOLOGY ORDERABLES Final Result Performing Organization Address [facility] Phone Number INTERFACE SYSTEM Refer to clinic/hospital department * (ABNORMAL) POC GLUCOSE (01/30/2005 5:20 AM CDT) GLUCOSE POC 132(H) 60 - 100 mg/dL INTERFACE SYSTEM 01/30/2005 5:20 AM CDT Nakul Nino MD POINT OF CARE TESTING Final Result Performing Organization Address [facility] Phone Number INTERFACE SYSTEM Refer to clinic/hospital department * (ABNORMAL) POC GLUCOSE (01/29/2005 8:52 PM CDT) GLUCOSE POC 149(H) 60 - 100 mg/dL INTERFACE SYSTEM 01/29/2005 8:52 PM CDT Nakul Nino MD POINT OF CARE TESTING Final Result Performing Organization Address [facility] Phone Number INTERFACE SYSTEM Refer to clinic/hospital department * (ABNORMAL) POC GLUCOSE (01/29/2005 5:52 PM CDT) GLUCOSE POC 113(H) 60 - 100 mg/dL INTERFACE SYSTEM 01/29/2005 5:52 PM CDT Nakul Nino MD POINT OF CARE TESTING Final Result INTERFACE SYSTEM Refer to clinic/hospital department * (ABNORMAL) POC GLUCOSE (01/29/2005 11:10 AM CDT) GLUCOSE POC 175(H) 60 - 100 mg/dL INTERFACE SYSTEM 01/29/2005 11:1 0 AM CDT Nakul Nino MD POINT OF CARE TESTING Final Result Performing Organization Address [facility] de Phone Number INTERFACE SYSTEM Refer to clinic/hospital department * (ABNORMAL) CBC WITHOUT DIFFERENTIAL (01/29/2005 6:58 AM CDT) WBC 14.9(H) 4.8 - 10.8 K/ul INTERFACE SYSTEM RBC 2.75(L) 4.20 - 5.40 Mil/ul INTERFACE SYSTEM HEMOGLOBIN 7.7(L) 12.0 - 16.0 g/dL INTERFACE SYSTEM HEMATOCRIT 25.1(L) 36.0 - 46.0 % INTERFACE SYSTEM MCV 91.3 84.0 - 103.0 Fl INTERFACE SYSTEM MCH 28.0 27.0 - 34.0 pg INTERFACE SYSTEM MCHC 30.7 30.0 - 35.0 g/dL INTERFACE SYSTEM RDW 14.5 11.0 - 14.5 % INTERFACE SYSTEM PLATELETS 201 140 - 440 K/ul INTERFACE SYSTEM Comment:Some fibrin seen on slide. Plt and wbc appear accurate. MPV 9.8 8.9 - 12.8 Fl INTERFACE SYSTEM NEUTROPHILS 75.4(H) 42.2 - 75.2 % INTERFACE SYSTEM LYMPHOCYTES 12.2(L) 24.0 - 44.0 % INTERFACE SYSTEM MONOCYTES 9.9 2.0 - 10.0 % INTERFACE SYSTEM EOSINOPHILS 2.3 0.0 - 7.0 % INTERFACE SYSTEM BASOPHILS 0.2 0.0 - 1.0 % INTERFACE SYSTEM NEUTROPHIL ABSOLUTE 11.2(H) 2.0 - 8.0 K/uL INTERFACE SYSTEM LYMPHOCYTE ABSOLUTE 1.8 1.2 - 4.0 K/ul INTERFACE SYSTEM MONOCYTE ABSOLUTE 1.5(H) 0.1 - 0.6 K/ul INTERFACE SYSTEM EOSINOPHIL ABSOLUTE 0.3 0.0 - 0.7 K/ul INTERFACE SYSTEM BASOPHILS ABSOLUTE 0.0 0.0 - 0.2 K/ul INTERFACE SYSTEM 01/29/2005 6:58 AM CDT Nakul Nino MD HEMATOLOGY ORDERABLES Final Result Performing Organization Address [facility] Phone Number INTERFACE SYSTEM Refer to clinic/hospital department * (ABNORMAL) BASIC METABOLIC PANEL (01/29/2005 6:58 AM CDT) GLUCOSE 193(H) 70 - 110 mg/dL INTERFACE SYSTEM BUN 25(H) 7 - 17 mg/dL INTERFACE SYSTEM CREATININE 0.8 0.7 - 1.2 mg/dL INTERFACE SYSTEM SODIUM 141 136 - 145 mEq/L INTERFACE SYSTEM POTASSIUM 4.6 3.5 - 5.0 mEq/L INTERFACE SYSTEM CHLORIDE 104 95 - 110 mEq/L INTERFACE SYSTEM CO2 33(H) 22 - 32 mmol/l INTERFACE SYSTEM ANION GAP 9 9 - 20 mEq/L INTERFACE SYSTEM OSMOLALITY, CALCULATED 300(H) 275 - 295 mOsm/Kg INTERFACE SYSTEM CALCIUM 7.3(L) 8.4 - 10.5 mg/dL INTERFACE SYSTEM 01/29/2005 6:58 AM CDT Nakul Nino MD CHEMISTRY ORDERABLES Final R esult Performing Organization Address [facility] Phone Number INTERFACE SYSTEM Refer to clinic/hospital department * (ABNORMAL) POC GLUCOSE (01/29/2005 6:03 AM CDT) GLUCOSE POC 202(H) 60 - 100 mg/dL INTERFACE SYSTEM 01/29/2005 6:03 AM CDT Nakul Nino MD POINT OF CARE TESTING Final Result Performing Organization Address [facility] de Phone Number INTERFACE SYSTEM Refer to clinic/hospital department * (ABNORMAL) POC ISTAT EG 7+ (01/28/2005 10:15 PM CDT) SPECIMEN TYPE Arterial INTERF CAROLANN SYSTEM Comment: Critical result performed at the point of care. Tidal volume: 500 PEEP: 05 Rate: 12 FIO2 50 INTERFACE SYSTEM PH 7.61(AA) 7.35 - 7.45 Unit INTERFACE SYSTEM PH TEMP CORRECT 7.61(AA) 7.35 - 7.45 Unit INTERFACE SYSTEM PCO2 POC 29(L) 35 - 45 mmHg INTERFACE SYSTEM PCO2 TEMP CORRECT 29(L) 35 - 45 mmHg INTERFACE SYSTEM PO2 138(H) 80 - 105 mmHg INTERFACE SYSTEM PO2 TEMP CORRECT 138(H) 80 - 105 mmHg INTERFACE SYSTEM HCO3 (CALC) POC 28.4(H) 22.0 - 26.0 mmol/l INTERFACE SYSTEM BASE EXCESS 7(H) -2 - 3 mmol/l INTERFACE SYSTEM HEMOGLOBIN POC 11.6(L) 12.0 - 16.0 g/dL INTERFACE SYSTEM HEMATOCRIT ABG 34(L) 38 - 51 % INTER FACE SYSTEM O2 SATURATION 100(H) 95 - 98 % INTERF CAROLANN SYSTEM TCO2 (CALC) POC 29(H) 23 - 27 mmol/l INTERFACE SYSTEM SODIUM 136(L) 138 - 146 mEq/L INTERFACE SYSTEM POTASSIUM 3.9 3.5 - 4.9 mEq/L INTERFACE SYSTEM CALCIUM IONIZED 1.04(L) 1.12 - 1.32 mmol/l INTERFACE SYSTEM 01/28/2005 10:1 5 PM CDT Nakul Nino MD POINT OF CARE TESTING COM Fi nal Result Performing Organization Address City/[facility] Co de Phone Number INTERFACE SYSTEM Refer to clinic/hospital department * (ABNORMAL) POC GLUCOSE (01/28/2005 9:12 PM CDT) GLUCOSE POC 173(H) 60 - 100 mg/dL INTERFACE SYSTEM 01/28/2005 9:12 PM CDT Nakul Nino MD POINT OF CARE TESTING Final Result INTERFACE SYSTEM Refer to clinic/hospital department * (ABNORMAL) POC GLUCOSE (01/28/2005 5:36 PM CDT) GLUCOSE POC 178(H) 60 - 100 mg/dL INTERFACE SYSTEM 01/28/2005 5:36 PM CDT Nakul Nino MD POINT OF CARE TESTING Final Result Performing Organization Address [facility] Phone Number INTERFACE SYSTEM Refer to clinic/hospital department * POC GLUCOSE (01/28/2005 3:07 PM CDT) GLUCOSE POC 91 60 - 100 mg/dL INTERFACE SYSTEM COMMENT POC Follow prtocol INTERFACE SYSTEM 01/28/2005 3:07 PM CDT Nakul Nino MD POINT OF CARE TESTING Final Result Performing Organization Address [facility] Phone Number INTERFACE SYSTEM Refer to clinic/hospital department * (ABNORMAL) HEMOGLOBIN A1C (01/28/2005 1:50 PM CDT) HEMOGLOBIN A1C 8.2(H) 4.0 - 6.0 %A1C INTERFACE SYSTEM 01/28/2005 1:50 PM CDT Nakul Nino MD CHEMISTRY ORDERABLES Final R esult Performing Organization Address [facility] Phone Number INTERFACE SYSTEM Refer to clinic/hospital department * (ABNORMAL) POC GLUCOSE (01/28/2005 12:53 PM CDT) GLUCOSE POC 121(H) 60 - 100 mg/dL INTERFACE SYSTEM COMMENT POC Follow prtocol INTERFACE SYSTEM 01/28/2005 12:5 3 PM CDT Nakul Nino MD POINT OF CARE TESTING Final Result Performing Organization Address [facility] Phone Number INTERFACE SYSTEM Refer to clinic/hospital department * (ABNORMAL) POC GLUCOSE (01/28/2005 12:11 PM CDT) GLUCOSE POC 134(H) 60 - 100 mg/dL INTERFACE SYSTEM COMMENT POC Follow prtocol INTERFACE SYSTEM 01/28/2005 12:1 1 PM CDT Nakul Nino MD POINT OF CARE TESTING Final Result Performing Organization Address City/[facility] Co de Phone Number INTERFACE SYSTEM Refer to clinic/hospital department * (ABNORMAL) POC GLUCOSE (01/28/2005 7:55 AM CDT) GLUCOSE POC 121(H) 60 - 100 mg/dL INTERFACE SYSTEM COMMENT POC Follow prtocol INTERFACE SYSTEM 01/28/2005 7:55 AM CDT Nakul Nino MD POINT OF CARE TESTING Final Result Performing Organization Address [facility] de Phone Number INTERFACE SYSTEM Refer to clinic/hospital department * (ABNORMAL) POC GLUCOSE (01/28/2005 7:08 AM CDT) GLUCOSE POC 146(H) 60 - 100 mg/dL INTERFACE SYSTEM COMMENT POC Follow prtocol INTERFACE SYSTEM 01/28/2005 7:08 AM CDT Nakul Nino MD POINT OF CARE TESTING Final Result Performing Organization Address [facility] de Phone Number INTERFACE SYSTEM Refer to clinic/hospital department * (ABNORMAL) POC GLUCOSE (01/28/2005 6:00 AM CDT) GLUCOSE POC 132(H) 60 - 100 mg/dL INTERFACE SYSTEM 01/28/2005 6:00 AM CDT Nakul Nino MD POINT OF CARE TESTING Final Result Performing Organization Address City/[facility] Co de Phone Number INTERFACE SYSTEM Refer to clinic/hospital department * (ABNORMAL) POC GLUCOSE (01/28/2005 2:41 AM CDT) GLUCOSE POC 127(H) 60 - 100 mg/dL INTERFACE SYSTEM 01/28/2005 2:41 AM CDT Nakul Nino MD POINT OF CARE TESTING Final Result Performing Organization Address [facility] Co de Phone Number INTERFACE SYSTEM Refer to clinic/hospital department * (ABNORMAL) POC GLUCOSE (01/28/2005 1:18 AM CDT) GLUCOSE POC 124(H) 60 - 100 mg/dL INTERFACE SYSTEM 01/28/2005 1:18 AM CDT Nakul Nino MD POINT OF CARE TESTING Final Result Performing Organization Address [facility] de Phone Number INTERFACE SYSTEM Refer to clinic/hospital department * (ABNORMAL) POC GLUCOSE (01/28/2005 12:20 AM CDT) GLUCOSE POC 128(H) 60 - 100 mg/dL INTERFACE SYSTEM 01/28/2005 12:2 0 AM CDT Nakul Nino MD POINT OF CARE TESTING Final Result Performing Organization Address [facility] Phone Number INTERFACE SYSTEM Refer to clinic/hospital department * (ABNORMAL) POC GLUCOSE (01/27/2005 11:07 PM CDT) GLUCOSE POC 138(H) 60 - 100 mg/dL INTERFACE SYSTEM 01/27/2005 11:0 7 PM CDT Nakul Nino MD POINT OF CARE TESTING Final Result Performing Organization Address [facility] Phone Number INTERFACE SYSTEM Refer to clinic/hospital department * (ABNORMAL) POC GLUCOSE (01/27/2005 10:14 PM CDT) GLUCOSE POC 139(H) 60 - 100 mg/dL INTERFACE SYSTEM 01/27/2005 10:1 4 PM CDT Nakul Nino MD POINT OF CARE TESTING Final Result Performing Organization Address City/[facility] Co de Phone Number INTERFACE SYSTEM Refer to clinic/hospital department * (ABNORMAL) POC GLUCOSE (01/27/2005 9:18 PM CDT) GLUCOSE POC 184(H) 60 - 100 mg/dL INTERFACE SYSTEM 01/27/2005 9:18 PM CDT Nakul Nino MD POINT OF CARE TESTING Final Result Performing Organization Address [facility] Phone Number INTERFACE SYSTEM Refer to clinic/hospital department * (ABNORMAL) POC GLUCOSE (01/27/2005 7:36 PM CDT) GLUCOSE POC 229(H) 60 - 100 mg/dL INTERFACE SYSTEM 01/27/2005 7:36 PM CDT Nakul Nino MD POINT OF CARE TESTING Final Result Performing Organization Address [facility] Phone Number INTERFACE SYSTEM Refer to clinic/hospital department * (ABNORMAL) POC GLUCOSE (01/27/2005 5:58 PM CDT) GLUCOSE POC 121(H) 60 - 100 mg/dL INTERFACE SYSTEM COMMENT POC Follow prtocol INTERFACE SYSTEM 01/27/2005 5:58 PM CDT Nakul Nino MD POINT OF CARE TESTING Final Result Performing Organization Address [facility] Phone Number INTERFACE SYSTEM Refer to clinic/hospital department * (ABNORMAL) POC GLUCOSE (01/27/2005 5:08 PM CDT) GLUCOSE POC 106(H) 60 - 100 mg/dL INTERFACE SYSTEM COMMENT POC Follow prtocol INTERFACE SYSTEM 01/27/2005 5:08 PM CDT us Nakul Nino MD POINT OF CARE TESTING Final Result Performing Organization Address [facility] de Phone Number INTERFACE SYSTEM Refer to clinic/hospital department * POC GLUCOSE (01/27/2005 4:31 PM CDT) GLUCOSE POC 85 60 - 100 mg/dL INTERFACE SYSTEM COMMENT POC Follow prtocol INTERFACE SYSTEM 01/27/2005 4:31 PM CDT us Nakul Nino MD POINT OF CARE TESTING Final Result Performing Organization Address [facility] Phone Number INTERFACE SYSTEM Refer to clinic/hospital department * POC GLUCOSE (01/27/2005 3:02 PM CDT) GLUCOSE POC 84 60 - 100 mg/dL INTERFACE SYSTEM COMMENT POC Follow prtocol INTERFACE SYSTEM 01/27/2005 3:0 2 PM CDT Nakul Nino MD POINT OF CARE TESTING Final Result Performing Organization Address [facility] Phone Number INTERFACE SYSTEM Refer to clinic/hospital department * POC GLUCOSE (01/27/2005 2:14 PM CDT) GLUCOSE POC 94 60 - 100 mg/dL INTERFACE SYSTEM COMMENT POC Follow prtocol INTERFACE SYSTEM 01/27/2005 2:14 PM CDT us Nakul Nino MD POINT OF CARE TESTING Final Result Performing Organization Address [facility] Phone Number INTERFACE SYSTEM Refer to clinic/hospital department * POC GLUCOSE (01/27/2005 12:57 PM CDT) GLUCOSE POC 89 60 - 100 mg/dL INTERFACE SYSTEM 01/27/2005 12:5 7 PM CDT us Nakul Nino MD POINT OF CARE TESTING Final Result Performing Organization Address [facility] Phone Number INTERFACE SYSTEM Refer to clinic/hospital department * (ABNORMAL) POC GLUCOSE (01/27/2005 11:53 AM CDT) GLUCOSE POC 107(H) 60 - 100 mg/dL INTERFACE SYSTEM COMMENT POC Follow prtocol INTERFACE SYSTEM 01/27/2005 11:5 3 AM CDT Nakul Nino MD POINT OF CARE TESTING Final Result Performing Organization Address [facility] Phone Number INTERFACE SYSTEM Refer to clinic/hospital department * (ABNORMAL) POC GLUCOSE (01/27/2005 11:07 AM CDT) GLUCOSE POC 118(H) 60 - 100 mg/dL INTERFACE SYSTEM COMMENT POC Follow prtocol INTERFACE SYSTEM 01/27/2005 11:0 7 AM CDT Nakul Nino MD POINT OF CARE TESTING Final Result Performing Organization Address [facility] Phone Number INTERFACE SYSTEM Refer to clinic/hospital department * (ABNORMAL) POC GLUCOSE (01/27/2005 9:54 AM CDT) GLUCOSE POC 136(H) 60 - 100 mg/dL INTERFACE SYSTEM COMMENT POC Follow prtocol INTERFACE SYSTEM 01/27/2005 9:54 AM CDT Nakul Nino MD POINT OF CARE TESTING Final Result Performing Organization Address [facility] Phone Number INTERFACE SYSTEM Refer to clinic/hospital department * (ABNORMAL) POC GLUCOSE (01/27/2005 8:06 AM CDT) GLUCOSE POC 176(H) 60 - 100 mg/dL INTERFACE SYSTEM 01/27/2005 8:06 AM CDT Nakul Nino MD POINT OF CARE TESTING Final Result Performing Organization Address [facility] de Phone Number INTERFACE SYSTEM Refer to clinic/hospital department * (ABNORMAL) POC GLUCOSE (01/27/2005 5:45 AM CDT) GLUCOSE POC 207(H) 60 - 100 mg/dL INTERFACE SYSTEM 01/27/2005 5:45 AM CDT Nakul Nino MD POINT OF CARE TESTING Final Result Performing Organization Address [facility] Phone Number INTERFACE SYSTEM Refer to clinic/hospital department * (ABNORMAL) POC GLUCOSE (01/27/2005 4:50 AM CDT) GLUCOSE POC 243(H) 60 - 100 mg/dL INTERFACE SYSTEM 01/27/2005 4:50 AM CDT Nakul Nino MD POINT OF CARE TESTING Final Result Performing Organization Address [facility] Phone Number INTERFACE SYSTEM Refer to clinic/hospital department * (ABNORMAL) BASIC METABOLIC PANEL (01/27/2005 4:17 AM CDT) GLUCOSE 293(H) 70 - 110 mg/dL INTERFACE SYSTEM BUN 16 7 - 17 mg/dL INTERFACE SYSTEM CREATININE 1.0 0.7 - 1.2 mg/dL INTERFACE SYSTEM SODIUM 142 136 - 145 mEq/L INTERFACE SYSTEM POTASSIUM 4.2 3.5 - 5.0 mEq/L INTERFACE SYSTEM CHLORIDE 108 95 - 110 mEq/L INTERFACE SYSTEM CO2 27 22 - 32 mmol/l INTERFACE SYSTEM ANION GAP 11 9 - 20 mEq/L INTERFACE SYSTEM OSMOLALITY, CALCULATED 304(H) 275 - 295 mOsm/Kg INTERFACE SYSTEM CALCIUM 7.5(L) 8.4 - 10.5 mg/dL INTERFACE SYSTEM 01/27/2005 4:17 AM CDT Nakul Nino MD CHEMISTRY ORDERABLES Final R esult Performing Organization Address [facility] Phone Number INTERFACE SYSTEM Refer to clinic/hospital department * (ABNORMAL) CBC WITH DIFFERENTIAL (01/27/2005 4:17 AM CDT) WBC 18.7(H) 4.8 - 10.8 K/ul INTERFACE SYSTEM RBC 3.62(L) 4.20 - 5.40 Mil/ul INTERFACE SYSTEM HEMOGLOBIN 10.1(L) 12.0 - 16.0 g/dL INTERFACE SYSTEM HEMATOCRIT 32.8(L) 36.0 - 46.0 % INTERFACE SYSTEM MCV 90.6 84.0 - 103.0 Fl INTERFACE SYSTEM MCH 27.9 27.0 - 34.0 pg INTERFACE SYSTEM MCHC 30.8 30.0 - 35.0 g/dL INTERFACE SYSTEM RDW 14.1 11.0 - 14.5 percent(i nactive) INTERFACE SYSTEM PLATELETS 273 140 - 440 K/ul INTERFACE SYSTEM MPV 9.4 8.9 - 12.8 Fl INTERFACE SYSTEM NEUTROPHILS 86.7(H) 42.2 - 75.2 percent(i nactive) INTERFACE SYSTEM LYMPHOCYTES 6.9(L) 24.0 - 44.0 percent(i nactive) INTERFACE SYSTEM MONOCYTES 6.3 2.0 - 10.0 percent(i nactive) INTERFACE SYSTEM BASOPHILS 0.1 0.0 - 1.0 percent(i nactive) INTERFACE SYSTEM NEUTROPHIL ABSOLUTE 16.2(H) 2.0 - 8.0 K/uL INTERFACE SYSTEM LYMPHOCYTE ABSOLUTE 1.3 1.2 - 4.0 K/ul INTERFACE SYSTEM MONOCYTE ABSOLUTE 1.2(H) 0.1 - 0.6 K/ul INTERFACE SYSTEM BASOPHILS ABSOLUTE 0.0 0.0 - 0.2 K/ul INTERFACE SYSTEM PERIPHERAL BLOOD SMEAR REVIEW Automated Diff INTERFACE SYSTEM 01/27/2005 4:17 AM CDT Nakul Nino MD HEMATOLOGY ORDERABLES Final Result Performing Organization Address [facility] Co de Phone Number INTERFACE SYSTEM Refer to clinic/hospital department * (ABNORMAL) POC GLUCOSE (01/27/2005 4:04 AM CDT) GLUCOSE POC 313(H) 60 - 100 mg/dL INTERFACE SYSTEM 01/27/2005 4:04 AM CDT Nakul Nino MD POINT OF CARE TESTING Final Result INTERFACE SYSTEM Refer to clinic/hospital department * (ABNORMAL) POC GLUCOSE (01/27/2005 3:00 AM CDT) GLUCOSE POC 272(H) 60 - 100 mg/dL INTERFACE SYSTEM 01/27/2005 3:00 AM CDT Nakul Nino MD POINT OF CARE TESTING Final Result Performing Organization Address [facility] Phone Number INTERFACE SYSTEM Refer to clinic/hospital department * (ABNORMAL) POC GLUCOSE (01/27/2005 1:55 AM CDT) GLUCOSE POC 369(H) 60 - 100 mg/dL INTERFACE SYSTEM 01/27/2005 1:55 AM CDT Nakul Nino MD POINT OF CARE TESTING Final Result Performing Organization Address [facility] Phone Number INTERFACE SYSTEM Refer to clinic/hospital department * (ABNORMAL) POC GLUCOSE (01/27/2005 12:09 AM CDT) GLUCOSE POC 368(H) 60 - 100 mg/dL INTERFACE SYSTEM 01/27/2005 12:0 9 AM CDT Nakul Nino MD POINT OF CARE TESTING Final Result Performing Organization Address [facility] Phone Number INTERFACE SYSTEM Refer to clinic/hospital department * (ABNORMAL) POC ISTAT EG 7+ (01/26/2005 10:25 PM CDT) SPECIMEN TYPE Arterial INTERF CAROLANN SYSTEM Comment:Sample not collected by [facility] FIO2 97 INTERFACE SYSTEM TEMPERATURE 37.5 DegC INTERFAC E SYSTEM PH 7.42 7.35 - 7.45 Unit INTERFACE SYSTEM PH TEMP CORRECT 7.41 7.35 - 7.45 Unit INTERFACE SYSTEM PCO2 POC 43 35 - 45 mmHg INTERFACE SYSTEM PCO2 TEMP CORRECT 43 35 - 45 mmHg INTERFACE SYSTEM PO2 226(H) 80 - 105 mmHg INTERFACE SYSTEM PO2 TEMP CORRECT 229(H) 80 - 105 mmHg INTERFACE SYSTEM HCO3 (CALC) POC 27.5(H) 22.0 - 26.0 mmol/l INTERFACE SYSTEM BASE EXCESS 3 -2 - 3 mmol/l INTERFACE SYSTEM HEMOGLOBIN POC 10.2(L) 12.0 - 16.0 g/dL INTERFACE SYSTEM HEMATOCRIT ABG 30(L) 38 - 51 % INTER FACE SYSTEM O2 SATURATION 100(H) 95 - 98 % INTERF CAROLANN SYSTEM TCO2 (CALC) POC 29(H) 23 - 27 mmol/l INTERFACE SYSTEM SODIUM 143 138 - 146 mEq/L INTERFACE SYSTEM POTASSIUM 3.8 3.5 - 4.9 mEq/L INTERFACE SYSTEM CALCIUM IONIZED 1.01(L) 1.12 - 1.32 mmol/l INTERFACE SYSTEM 01/26/2005 10:2 5 PM CDT us Nakul Nino MD POINT OF CARE TESTING COM Fi nal Result Performing Organization Address [facility] de Phone Number INTERFACE SYSTEM Refer to clinic/hospital department * (ABNORMAL) GLUCOSE LEVEL (01/26/2005 10:19 PM CDT) GLUCOSE 245(H) 70 - 110 mg/dL INTERFACE SYSTEM Comment:Specimen slightly he molyzed. THIS RESULT FROM EDTA TUBE. 01/26/2005 10:1 9 PM CDT Nakul Nino MD CHEMISTRY ORDERABLES Final R esult Performing Organization Address [facility] de Phone Number INTERFACE SYSTEM Refer to clinic/hospital department * (ABNORMAL) POC ISTAT EG 7+ (01/26/2005 9:39 PM CDT) SPECIMEN TYPE Arterial INTERF CAROLANN SYSTEM Comment:Sample not collected by [facility] FIO2 100 INTERFACE SYSTEM TEMPERATURE 37.5 DegC INTERFAC E SYSTEM PH 7.42 7.35 - 7.45 Unit INTERFACE SYSTEM PH TEMP CORRECT 7.41 7.35 - 7.45 Unit INTERFACE SYSTEM PCO2 POC 41 35 - 45 mmHg INTERFACE SYSTEM PCO2 TEMP CORRECT 42 35 - 45 mmHg INTERFACE SYSTEM PO2 267(H) 80 - 105 mmHg INTERFACE SYSTEM PO2 TEMP CORRECT 269(H) 80 - 105 mmHg INTERFACE SYSTEM HCO3 (CALC) POC 26.1(H) 22.0 - 26.0 mmol/l INTERFACE SYSTEM BASE EXCESS 2 -2 - 3 mmol/l INTERFACE SYSTEM HEMOGLOBIN POC 9.9(L) 12.0 - 16.0 g/dL INTERFACE SYSTEM HEMATOCRIT ABG 29(L) 38 - 51 % INTER FACE SYSTEM O2 SATURATION 100(H) 95 - 98 % INTERF CAROLANN SYSTEM TCO2 (CALC) POC 27 23 - 27 mmol/l INTERFACE SYSTEM SODIUM 140 138 - 146 mEq/L INTERFACE SYSTEM POTASSIUM 4.3 3.5 - 4.9 mEq/L INTERFACE SYSTEM CALCIUM IONIZED 0.96(L) 1.12 - 1.32 mmol/l INTERFACE SYSTEM 01/26/2005 9:39 PM CDT Nakul Nino MD POINT OF CARE TESTING COM Fi nal Result Performing Organization Address [facility] Phone Number INTERFACE SYSTEM Refer to clinic/hospital department * PROTIME-INR (01/26/2005 7:18 PM CDT) PROTIME 14.7 12.4 - 14.9 Secs INTERFACE SYSTEM Comment: As of 04 note change in normal range. INR 1.1 INTERFACE SYSTEM Comment: Expected Values for INR: DVT/PE Goal INR 2.5; range 2.0 - 3.0 Valve Replacement Tissue Goal INR 2.5; range 2.0 - 3.0 Mechanical Goal INR 3.0; range 2.5 - 3.5 POST-AK Goal INR 2.5; range 2.0 - 3.0 or Goal 3.0; range 2.5 - 3.5 Atrial Fibrillation Goal INR 2.5; range 2.0 - 3.0 Ischemic Stroke Goal INR 2.5; range 2.0 - 3.0 For additional information see Guidelines for Anticoagulation available from the pharmacy Ronit Meredith Pharm D. 01/26/2005 7:18 PM CDT us Flako Blanco MD HEMATOLOGY ORDERABLES Final Result Performing Organization Address [facility] Phone Number INTERFACE SYSTEM Refer to clinic/hospital department * ETHANOL LEVEL (01/26/2005 7:00 PM CDT) ETHANOL <10 <=10 mg/dL INTERFACE SYSTEM 01/26/2005 7:00 PM CDT Flako Blanco MD CHEMISTRY ORDERABLES Final Result Performing Organization Address [facility] de Phone Number INTERFACE SYSTEM Refer to clinic/hospital department * (ABNORMAL) CBC WITH DIFFERENTIAL (01/26/2005 7:00 PM CDT) WBC 22.7(H) 4.8 - 10.8 K/ul INTERFACE SYSTEM RBC 4.54 4.20 - 5.40 Mil/ul INTERFACE SYSTEM HEMOGLOBIN 12.7 12.0 - 16.0 g/dL INTERFACE SYSTEM HEMATOCRIT 40.3 36.0 - 46.0 % INTERFACE SYSTEM MCV 88.8 84.0 - 103.0 Fl INTERFACE SYSTEM MCH 28.0 27.0 - 34.0 pg INTERFACE SYSTEM MCHC 31.5 30.0 - 35.0 g/dL INTERFACE SYSTEM RDW 13.8 11.0 - 14.5 percent(i nactive) INTERFACE SYSTEM PLATELETS 303 140 - 440 K/ul INTERFACE SYSTEM MPV 9.3 8.9 - 12.8 Fl INTERFACE SYSTEM NEUTROPHILS 84.5(H) 42.2 - 75.2 percent(i nactive) INTERFACE SYSTEM LYMPHOCYTES 7.7(L) 24.0 - 44.0 percent(i nactive) INTERFACE SYSTEM MONOCYTES 7.6 2.0 - 10.0 percent(i nactive) INTERFACE SYSTEM EOSINOPHILS 0.1 0.0 - 7.0 % INTERFACE SYSTEM BASOPHILS 0.1 0.0 - 1.0 percent(i nactive) INTERFACE SYSTEM NEUTROPHIL ABSOLUTE 19.2(H) 2.0 - 8.0 K/uL INTERFACE SYSTEM LYMPHOCYTE ABSOLUTE 1.7 1.2 - 4.0 K/ul INTERFACE SYSTEM MONOCYTE ABSOLUTE 1.7(H) 0.1 - 0.6 K/ul INTERFACE SYSTEM EOSINOPHIL ABSOLUTE 0.0 0.0 - 0.7 K/ul INTERFACE SYSTEM BASOPHILS ABSOLUTE 0.0 0.0 - 0.2 K/ul INTERFACE SYSTEM PERIPHERAL BLOOD SMEAR REVIEW Automated Diff INTERFACE SYSTEM 01/26/2005 7:00 PM CDT us Flako Blanco MD HEMATOLOGY ORDERABLES Final Result INTERFACE SYSTEM Refer to clinic/hospital department * (ABNORMAL) BASIC METABOLIC PANEL (01/26/2005 7:00 PM CDT) GLUCOSE 323(H) 70 - 110 mg/dL INTERFACE SYSTEM BUN 19(H) 7 - 17 mg/dL INTERFACE SYSTEM CREATININE 0.8 0.7 - 1.2 mg/dL INTERFACE SYSTEM SODIUM 143 136 - 145 mEq/L INTERFACE SYSTEM POTASSIUM 4.0 3.5 - 5.0 mEq/L INTERFACE SYSTEM CHLORIDE 106 95 - 110 mEq/L INTERFACE SYSTEM CO2 28 22 - 32 mmol/l INTERFACE SYSTEM ANION GAP 13 9 - 20 mEq/L INTERFACE SYSTEM OSMOLALITY, CALCULATED 308(H) 275 - 295 mOsm/Kg INTERFACE SYSTEM CALCIUM 8.1(L) 8.4 - 10.5 mg/dL INTERFACE SYSTEM 01/26/2005 7:00 PM CDT us Flako Blanco MD CHEMISTRY ORDERABLES Final Result INTERFACE SYSTEM Refer to clinic/hospital department documented in this encounter Visit Diagnoses Diagnosis Closed fracture of shaft of femur (CMS/HCC)- Primary Closed fracture of shaft of femur documented in this encounter Care Teams Sampler Ovens Relationship Specialty Start Date End Date Adrienne March DO [address] [place] [phone] PCP - General Family Practice 06/30/10 documented as of this encounter
--- OUTSIDE RECORDS SUMMARY | 2025-03-21 13:52 | XMS_ITS | Encounter Summary ---
Author Organization [facility] Address [address] [place] [address] Care Team Providers Care Direct Chill Caster Name Role Phone Adrienne March DO Primary Care Provider Encounter Details Date Type Department Care Team (Latest Contact Info) Description 06/12/2004 Outpatient Historical [facility] [address] [place] [address] Jose Luis Mcmillan MD [address] [place] [address] JOINT PAIN-SHLDER (Primary Dx) Social History Tobacco Use Types Packs/Day Years Used Date Smoking Tobacco: Never Assessed Comments Unknown Sex and Gender Information Value Date Recorded Sex Assigned at Not on file 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
--- OUTSIDE RECORDS SUMMARY | 2025-03-21 13:52 | XMS_ITS | Encounter Summary ---
Author Organization [facility] Address [address] [place] [address] Care Team Providers Care Iron Launder Operator Name Role Phone Adrienne March DO Primary Care Provider Encounter Details Date Type Department Care Team (Latest Contact Info) Description 05/27/2004 Outpatient [facility] [address] [address] Jose Luis Mcmillan MD [address] [place] [address] JOINT PAIN-SHLDER (Primary Dx) Social History Tobacco Use Types Packs/Day Years Used Date Smoking Tobacco: Never Assessed Comments Unknown Sex and Gender Information Value Date Recorded Sex Assigned at Not on file 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
--- OUTSIDE RECORDS SUMMARY | 2025-03-21 13:52 | XMS_ITS | Encounter Summary ---
Author Organization [facility] Address [address] [place] [address] Care Team Providers Care In Home Sales Consultant Name Role Phone Adrienne March DO Primary Care Provider Encounter Details Date Type Department Care Team (Latest Contact Info) Description 08/01/2004 Outpatient Historical [facility] [address] [place] [address] Wilfredo Michel MD [address] [phone] Muscle weakness (Primary Dx) Social History Tobacco Use Types Packs/Day Years Used Date Smoking Tobacco: Never Assessed Comments Unknown Sex and Gender Information Value Date Recorded Sex Assigned at Not on file 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
--- OUTSIDE RECORDS SUMMARY | 2025-03-21 13:52 | XMS_ITS | Encounter Summary ---
Author Organization [facility] Address [address] [place] [address] Care Team Providers Care Child Care Team Lead Name Role Phone Adrienne March DO Primary Care Provider Encounter Details Date Type Department Care Team (Latest Contact Info) Description 03/26/2005 Outpatient Historical [facility] Orthopedics- [address] [place] 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
--- OUTSIDE RECORDS SUMMARY | 2025-03-21 13:52 | XMS_ITS | Encounter Summary ---
Author Organization [facility] Address [address] [place] [address] Care Team Providers Care Electrical Manufacturing Technician Name Role Phone Adrienne March DO Primary Care Provider [phone] Encounter Details Date Type Department Care Team (Latest Contact Info) Description 01/06/2005 Outpatient Historical [facility] Trent Mcdonough [address] [place] [phone] Abel Hurtado, DPM NO ADDRESS ON FILE CALCANEAL SPUR (Primary Dx) Social History Tobacco Use Types Packs/Day Years Used Date Smoking Tobacco: Never Assessed Comments Unknown Sex and Gender Information Value Date Recorded Sex Assigned at Not on file Legal Sex Female 3:34 AM RESTROOMS OR LOUNGES MAID Gender Identity Not on file Sexual Orientation Not on file documented as of this encounter Plan of Treatment Not on file documented as of this encounter Visit Diagnoses Diagnosis Calcaneal spur- Primary documented in this encounter Care Teams Electrical Manufacturing Technician Relationship Specialty Start Date End Date Adrienne March DO [address] [place] [address] PCP - General Family Practice 06/30/10 documented as of this encounter
--- OUTSIDE RECORDS SUMMARY | 2025-03-21 13:52 | XMS_ITS | Encounter Summary ---
Author Organization [facility] Address [address] [place] [address] Care Team Providers Care Director Food And Beverage Name Role Phone Adrienne March DO Primary Care Provider [phone] Encounter Details Date Type Department Care Team (Latest Contact Info) Description 08/11/2004 Outpatient Historical [facility] Trent Kimberly [address] [place] [phone] Leanne Smith DO [address] [place] [phone] JOINT PAIN-ANKLE (Primary Dx) Social History Tobacco Use Types Packs/Day Years Used Date Smoking Tobacco: Never Assessed Comments Unknown Sex and Gender Information Value Date Recorded Sex Assigned at Not on file 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
--- OUTSIDE RECORDS SUMMARY | 2025-03-21 13:52 | XMS_ITS | Encounter Summary ---
Author Organization [facility] Address [address] [place] [address] Care Team Providers Care Medicare Biller Name Role Phone Adrienne March DO Primary Care Provider Encounter Details Date Type Department Care Team (Latest Contact Info) Description 03/08/2007 Outpatient Historical [facility] Gen Spec [place] 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
--- OUTSIDE RECORDS SUMMARY | 2025-03-21 13:52 | XMS_ITS | Encounter Summary ---
Author Organization [facility] Address [address] [place] [address] Care Team Providers Care Water Plant Pump Operator Supervisor Name Role Phone Adrienne March DO Primary Care Provider Encounter Details Date Type Department Care Team (Latest Contact Info) Description 03/08/2007 Outpatient Historical [facility] [address] [place] [address] [place] [phone] Pako Black MD NO ADDRESS ON FILE Open Wound of Knee, Leg (except Thigh), and Ankle, Complicated (Primary Dx) Social History Tobacco Use Types Packs/Day Years Used Date Smoking Tobacco: Never Assessed Comments Unknown Sex and Gender Information Value Date Recorded Sex Assigned at Not on file Legal Sex Female 3:34 AM DIGITAL ACCOUNT EXECUTIVE Gender Identity Not on file Sexual Orientation Not on file documented as of this encounter Plan of Treatment Not on file documented as of this encounter Visit Diagnoses Diagnosis Open wound of knee, leg (except thigh), and ankle, complicated- Primary documented in this encounter Care Teams Water Plant Pump Operator Supervisor Relationship Specialty Start Date End Date Adrienne March DO [address] [place] [address] PCP - General Family Practice 06/30/10 documented as of this encounter
--- OUTSIDE RECORDS SUMMARY | 2025-03-21 13:52 | XMS_ITS | Encounter Summary ---
Author Organization [facility] Address [address] [place] [address] Care Team Providers Care Submarine Diver Name Role Phone Adrienne March DO Primary Care Provider Encounter Details Date Type Department Care Team (Latest Contact Info) Description 01/26/2005 Outpatient Historical [facility] [place] 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
--- OUTSIDE RECORDS SUMMARY | 2025-03-21 13:52 | XMS_ITS | Encounter Summary ---
Author Organization [facility] Address [address] [place] [address] Care Team Providers Care Dry Wall Applicator Name Role Phone Adrienne March DO Primary Care Provider Encounter Details Date Type Department Care Team (Latest Contact Info) Description 08/06/2005 Outpatient Historical [facility] Orthopedics- 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
--- OUTSIDE RECORDS SUMMARY | 2025-03-21 13:52 | XMS_ITS | Encounter Summary ---
Author Organization [facility] Address [address] [place] [address] Care Team Providers Care Packager Machine Name Role Phone Adrienne March DO Primary Care Provider [phone] Encounter Details Date Type Department Care Team (Latest Contact Info) Description 02/25/2006 Outpatient Historical [facility] Orthopedics- [address] [place] [address] Josse Ferguson MD NO ADDRESS ON FILE Pain in Joint, Pelvic Region and Thigh (Primary Dx) Social History Tobacco Use Types Packs/Day Years Used Date Smoking Tobacco: Never Assessed Comments Unknown Sex and Gender Information Value Date Recorded Sex Assigned at Not on file Legal Sex Female 3:34 AM RN HEMODIALYSIS CHARGE Gender Identity Not on file Sexual Orientation Not on file documented as of this encounter Plan of Treatment Not on file documented as of this encounter Visit Diagnoses Diagnosis Pain in joint, pelvic region and thigh- Primary documented in this encounter Care Teams Packager Machine Relationship Specialty Start Date End Date Adrienne March DO [address] [place] [address] PCP - General Family Practice 06/30/10 documented as of this encounter
--- OUTSIDE RECORDS SUMMARY | 2025-03-21 13:52 | XMS_ITS | Encounter Summary ---
Author Organization [facility] Address [address] [place] [address] Care Team Providers Care Assistant Auto Center Manager Name Role Phone Adrienne March DO Primary Care Provider Encounter Details Date Type Department Care Team (Latest Contact Info) Description 08/25/2004 Outpatient [facility] Podiatry-[facility] [place] [address] [place] [address] Abel Hurtado, MARCE NO ADDRESS ON FILE Other lymphedema (Primary Dx); LOWER LEG INJURY NOS; DERMATOPHYTOSIS OF FOOT Social History Tobacco Use Types Packs/Day Years Used Date Smoking Tobacco: Never Assessed Comments Unknown Sex and Gender Information Value Date Recorded Sex Assigned at Not on file 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
--- OUTSIDE RECORDS SUMMARY | 2025-03-21 13:52 | XMS_ITS | Encounter Summary ---
Author Organization [facility] Address [address] [place] [address] Care Team Providers Care Threshing Machine Operator Name Role Phone Adrienne March DO Primary Care Provider Encounter Details Date Type Department Care Team (Latest Contact Info) Description 03/02/2005 Outpatient Historical [facility] Orthopedics- [address] [place] [address] Josse Ferguson MD NO ADDRESS ON FILE FX FEMUR SHAFT-CLOSED (CMS/HCC) (Primary Dx); FX LOW RADIUS W ULNA-CLOSE Social History Tobacco Use Types Packs/Day Years Used Date Smoking Tobacco: Never Assessed Comments Unknown Sex and Gender Information Value Date Recorded Sex Assigned at Not on file Legal Sex Female 3:34 AM CREDIT UNION TELLER Gender Identity Not on file Sexual Orientation Not on file documented as of this encounter Plan of Treatment Not on file documented as of this encounter Visit Diagnoses Diagnosis Closed fracture of shaft of femur (CMS/HCC)- Primary Closed fracture of shaft of femur Closed fracture of lower end of radius with ulna documented in this encounter Care Teams Threshing Machine Operator Relationship Specialty Start Date End Date Adrienne March DO [address] [place] [address] PCP - General Family Practice 06/30/10 documented as of this encounter
--- OUTSIDE RECORDS SUMMARY | 2025-03-21 13:52 | XMS_ITS | Encounter Summary ---
Author Organization [facility] Address [address] [place] [address] Care Team Providers Care Housing Assistant Name Role Phone Adrienne March DO Primary Care Provider [phone] Encounter Details Date Type Department Care Team (Latest Contact Info) Description 08/05/2004 Outpatient Historical [facility]ANCELLED ADMISSION Jose Luis Mcmillan MD [address] [place] [address] [place] [address] ADMINISTRTVE ENCOUNT NOS (Primary Dx) Social History Tobacco Use Types Packs/Day Years Used Date Smoking Tobacco: Never Assessed Comments Unknown Sex and Gender Information Value Date Recorded Sex Assigned at Not on file 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
--- OUTSIDE RECORDS SUMMARY | 2025-03-21 13:52 | XMS_ITS | Encounter Summary ---
Author Organization [facility] Address [address] [place] [address] Care Team Providers Care Pasteurizer Name Role Phone Adrienne March Primary Care Provider Encounter Details Date Type Department Care Team (Latest Contact Info) Description 01/13/2007 Outpatient Historical [facility] Cardiac Svp Operations [address] [place] [phone] López Harry MD NO ADDRESS ON FILE Unspecified Chest Pain (Primary Dx) Social History Tobacco Use Types Packs/Day Years Used Date Smoking Tobacco: Never Assessed Comments Unknown Sex and Gender Information Value Date Recorded Sex Assigned at Not on file 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 Gender Identity Not on file Sexual Orientation Not on file documented as of this encounter Plan of Treatment Not on file documented as of this encounter Procedures Procedure Name Priority Date/Time Associated Diagnosis Comments PT AND APTT Routine 01/13/2007 6:04 AM CDT CBC WITHOUT DIFFERENTIAL Routine 01/13/2007 6:04 AM CDT C-REACTIVE PROTEIN Routine 01/13/2007 6: 04 AM CDT BASIC METABOLIC PANEL Routine 01/13/2007 6:04 AM CDT documented in this encounter Results * PT AND APTT (01/13/2007 6:04 AM CDT) PROTIME 14.9 13.0 - 15.7 Secs INTERFACE SYSTEM Comment: [...] for Anticoagulation available from the pharmacy [facility]. PTT 29.8 21.6 - 35.6 Secs INTERFACE SYSTEM Comment: Therapeutic Range: Hi-level PE/DVT heparin protocol 80.1 -95.0 sec Lo-level PE/DVT heparin protocol 67.1 - 80.0 sec Cardiac Heparin Protocol 67.1 - 85.0 sec Neuro Heparin Protocol 67.1 - 80.0 sec As of 08/26/2006 note change in APTT Normal Range. 01/13/2007 6:04 AM CDT us López Harry MD HEMATOLOGY ORDERABLES Edite d INTERFACE SYSTEM Refer to clinic/hospital department * (ABNORMAL) CBC WITHOUT DIFFERENTIAL (01/13/2007 6:04 AM CDT) WBC 7.2 4.8 - 10.8 K/ul INTERFACE SYSTEM RBC 4.68 4.20 - 5.40 Mil/ul INTERFACE SYSTEM HEMOGLOBIN 12.9 12.0 - 16.0 g/dL INTERFACE SYSTEM HEMATOCRIT 41.3 36.0 - 46.0 % INTERFACE SYSTEM MCV 88.2 84.0 - 103.0 Fl INTERFACE SYSTEM MCH 27.6 27.0 - 34.0 pg INTERFACE SYSTEM MCHC 31.2 30.0 - 35.0 g/dL INTERFACE SYSTEM RDW 14.1 11.0 - 14.5 % INTERFACE SYSTEM PLATELETS 329 140 - 440 K/ul INTERFACE SYSTEM MPV 9.0 8.9 - 12.8 Fl INTERFACE SYSTEM NEUTROPHILS 58.1 42.2 - 75.2 % INTERFACE SYSTEM LYMPHOCYTES 28.1 24.0 - 44.0 % INTERFACE SYSTEM MONOCYTES 9.9 2.0 - 10.0 % INTERFACE SYSTEM EOSINOPHILS 3.2 0.0 - 7.0 % INTERFACE SYSTEM BASOPHILS 0.7 0.0 - 1.0 % INTERFACE SYSTEM NEUTROPHIL ABSOLUTE 4.2 2.0 - 8.0 K/ul INTERFACE SYSTEM LYMPHOCYTE ABSOLUTE 2.0 1.2 - 4.0 K/ul INTERFACE SYSTEM MONOCYTE ABSOLUTE 0.7(H) 0.1 - 0.6 K/ul INTERFACE SYSTEM EOSINOPHIL ABSOLUTE 0.2 0.0 - 0.7 K/ul INTERFACE SYSTEM BASOPHILS ABSOLUTE 0.1 0.0 - 0.2 K/ul INTERFACE SYSTEM 01/13/2007 6:04 AM CDT López Harry MD HEMATOLOGY ORDERABLES Edite d Performing Organization Address [facility] Phone Number INTERFACE SYSTEM Refer to clinic/hospital department * C-REACTIVE PROTEIN (01/13/2007 6:04 AM CDT) CRP 0.98 0.00 - 1.00 mg/dL INTERFACE SYSTEM 01/13/2007 6:04 AM CDT us López Harry MD CHEMISTRY ORDERABLES Edited Performing Organization Address [facility] Phone Number INTERFACE SYSTEM Refer to clinic/hospital department * (ABNORMAL) BASIC METABOLIC PANEL (01/13/2007 6:04 AM CDT) GLUCOSE 137(H) 70 - 110 mg/dL INTERFACE SYSTEM BUN 16 7 - 17 mg/dL INTERFACE SYSTEM CREATININE 1.0 0.7 - 1.2 mg/dL INTERFACE SYSTEM SODIUM 145 136 - 145 mEq/L INTERFACE SYSTEM POTASSIUM 3.8 3.5 - 5.0 mEq/L INTERFACE SYSTEM CHLORIDE 107 95 - 110 mEq/L INTERFACE SYSTEM CO2 33(H) 22 - 32 mmol/l INTERFACE SYSTEM CALCIUM 9.2 8.4 - 10.5 mg/dL INTERFACE SYSTEM ANION GAP 9 9 - 20 mEq/L INTERFACE SYSTEM OSMOLALITY, CALCULATED 300(H) 275 - 295 mOsm/Kg INTERFACE SYSTEM 01/13/2007 6:04 AM CDT us López Harry MD CHEMISTRY ORDERABLES Edited INTERFACE SYSTEM Refer to clinic/hospital department documented in this encounter Visit Diagnoses Diagnosis Chest pain, unspecified- Primary documented in this encounter Care Teams Pasteurizer Relationship Specialty Start Date End Date Adrienne March DO [address] [place] [address] PCP - General Family Practice 06/30/10 documented as of this encounter
--- OUTSIDE RECORDS SUMMARY | 2025-03-21 13:52 | XMS_ITS | Encounter Summary ---
Author Organization [facility] Address [address] [place] [address] Care Team Providers Care Chief Information Officer Name Role Phone Adrienne March DO Primary Care Provider [phone] Encounter Details Date Type Department Care Team (Latest Contact Info) Description 06/12/2004 Outpatient [facility] [address] [address] Jose Luis Mcmillan MD [address] [place] [address] JOINT PAIN-SHLDER (Primary Dx) Social History Tobacco Use Types Packs/Day Years Used Date Smoking Tobacco: Never Assessed Comments Unknown Sex and Gender Information Value Date Recorded Sex Assigned at Not on file 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
--- OUTSIDE RECORDS SUMMARY | 2025-03-21 13:52 | XMS_ITS | Encounter Summary ---
Author Organization [facility] Address [address] [place] [address] Care Team Providers Care Siebel Administrator Name Role Phone Adrienne March DO Primary Care Provider Encounter Details Date Type Department Care Team (Latest Contact Info) Description 01/08/2004 Outpatient Historical [facility] [address] [place] [address] Jose Luis Mcmillan MD [address] [place] [address] CERVICALGIA (Primary Dx); Cervical spondylosis Social History Tobacco Use Types Packs/Day Years Used Date Smoking Tobacco: Never Assessed Comments Unknown Sex and Gender Information Value Date Recorded Sex Assigned at Not on file 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
--- OUTSIDE RECORDS SUMMARY | 2025-03-21 13:52 | XMS_ITS | Encounter Summary ---
Author Organization [facility] Address [address] [place] [address] Care Team Providers Care Roll Clamp Operator Name Role Phone Adrienne March DO Primary Care Provider Encounter Details Date Type Department Care Team (Latest Contact Info) Description 11/23/2005 Outpatient Historical [facility] Orthopedics- 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
--- OUTSIDE RECORDS SUMMARY | 2025-03-21 13:52 | XMS_ITS | Encounter Summary ---
Author Organization [facility] Address [address] [place] [address] Care Team Providers Care Steam Clean Machine Operator Name Role Phone Adrienne March DO Primary Care Provider Encounter Details Date Type Department Care Team (Latest Contact Info) Description 01/08/2004 Outpatient [facility] [address] [address] Jose Luis Mcmillan MD [address] [place] [address] NEURALGIA/NEURITIS NOS (Primary Dx) Social History Tobacco Use Types Packs/Day Years Used Date Smoking Tobacco: Never Assessed Comments Unknown Sex and Gender Information Value Date Recorded Sex Assigned at Not on file 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
--- OUTSIDE RECORDS SUMMARY | 2025-03-21 13:52 | XMS_ITS | Encounter Summary ---
Author Organization [facility] Address [address] [place] [address] Care Team Providers Care Chemical Applicator Name Role Phone Adrienne March DO Primary Care Provider Encounter Details Date Type Department Care Team (Latest Contact Info) Description 05/27/2004 Outpatient Historical [facility] [address] [place] [address] Jose Luis Mcmillan MD [address] [place] [address] CERVICALGIA (Primary Dx); Cervical spondylosis; JOINT PAIN-SHLDER Social History Tobacco Use Types Packs/Day Years Used Date Smoking Tobacco: Never Assessed Comments Unknown Sex and Gender Information Value Date Recorded Sex Assigned at Not on file 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
--- OUTSIDE RECORDS SUMMARY | 2025-03-21 13:52 | XMS_ITS | Encounter Summary ---
Author Organization [facility] Address [address] [place] [address] Care Team Providers Care Store Assistant Name Role Phone Adrienne March DO Primary Care Provider Encounter Details Date Type Department Care Team (Latest Contact Info) Description 02/02/2005 Outpatient Historical [facility]ulance [address] 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
--- OUTSIDE RECORDS SUMMARY | 2025-03-21 13:52 | XMS_ITS | Encounter Summary ---
Author Organization [facility] Address [address] [place] [address] Care Team Providers Care Security Tech Name Role Phone Adrinene March DO Primary Care Provider [phone] Encounter Details Date Type Department Care Team (Latest Contact Info) Description 03/06/2004 Outpatient [facility] Podiatry-[facility] [address] [place] [address] Abel Hurtado, MARCE NO ADDRESS ON FILE Plantar fibromatosis (Primary Dx); CALCANEAL SPUR; DIFFICULTY IN WALKING Social History Tobacco Use Types Packs/Day Years Used Date Smoking Tobacco: Never Assessed Comments Unknown Sex and Gender Information Value Date Recorded Sex Assigned at Not on file 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
--- OUTSIDE RECORDS SUMMARY | 2025-03-21 13:52 | XMS_ITS | Encounter Summary ---
Author Organization [facility] Address [address] [place] [address] Care Team Providers Care Consumer Sales Representative Name Role Phone Adrienne March DO Primary Care Provider Encounter Details Date Type Department Care Team (Latest Contact Info) Description 07/29/2004 Outpatient [facility] Podiatry-[facility] [place] [address] [place] [address] Abel Hurtado, MARCE NO ADDRESS ON FILE ACUTE OSTEOMYELITIS-ANKLE ([facility]) (Primary Dx); FX ANKLE NOS-CLOSED; Plantar fibromatosis; DIFFICULTY IN WALKING Social History Tobacco Use Types Packs/Day Years Used Date Smoking Tobacco: Never Assessed Comments Unknown Sex and Gender Information Value Date Recorded Sex Assigned at Not on file 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 Gender Identity Not on file Sexual Orientation Not on file documented as of this encounter Plan of Treatment Not on file documented as of this encounter Visit Diagnoses Diagnosis Acute osteomyelitis, ankle and foot (CMS/HCC)- Primary Acute osteomyelitis, ankle and foot Unspecified closed fracture of ankle Plantar fibromatosis Plantar fascial fibromatosis Difficulty in walking(719.7) Difficulty in walking documented in this encounter Care Teams Consumer Sales Representative Relationship Specialty Start Date End Date Adrienne March DO [address] [place] [address] PCP - General Family Practice 10/11/10 documented as of this encounter
--- OUTSIDE RECORDS SUMMARY | 2025-03-21 13:52 | XMS_ITS | Encounter Summary ---
Author Organization [facility] Address [address] [place] [address] Care Team Providers Care Pilot Submersible Name Role Phone Adrienne March DO Primary Care Provider Encounter Details Date Type Department Care Team (Latest Contact Info) Description 07/29/2004 Outpatient Historical [facility] [place] [address] [place] [address] Abel Hurtado, DPM NO ADDRESS ON FILE Pain in limb (Primary Dx) Social History Tobacco Use Types Packs/Day Years Used Date Smoking Tobacco: Never Assessed Comments Unknown Sex and Gender Information Value Date Recorded Sex Assigned at Not on file 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
--- OUTSIDE RECORDS SUMMARY | 2025-03-21 13:52 | XMS_ITS | Encounter Summary ---
Author Organization [facility] Address [address] [place] [address] Care Team Providers Care Customer Service Voice Name Role Phone Adrienne March DO Primary Care Provider [phone] Encounter Details Date Type Department Care Team (Latest Contact Info) Description 11/27/2003 Outpatient Historical 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
--- OUTSIDE RECORDS SUMMARY | 2025-03-21 13:53 | XMS_ITS | Encounter Summary ---
Author Organization [facility] Address [address] 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
--- OUTSIDE RECORDS SUMMARY | 2025-03-21 13:53 | XMS_ITS | Encounter Summary ---
Author Organization [facility] Address [address] [place] [address] Care Team Providers Care Policy Value Calculator Name Role Phone Adrienne March DO Primary Care Provider Encounter Details Date Type Department Care Team (Latest Contact Info) Description 08/31/2000 Outpatient Historical [facility] Internal Medicine- [address] [place] [phone] Umang Urrutia MD [address] [place] [address] Type II or unspecified type diabetes mellitus without mention of complication, not stated as uncontrolled (Primary Dx); Hepatitis, unspecified; Carpal tunnel syndrome; Need vaccination-viral disease Social History Tobacco Use Types Packs/Day Years Used Date Smoking Tobacco: Never Assessed Comments Unknown Sex and Gender Information Value Date Recorded Sex Assigned at Not on file 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 Gender Identity Not on file Sexual Orientation Not on file documented as of this encounter Plan of Treatment Not on file documented as of this encounter Visit Diagnoses Diagnosis Type II or unspecified type diabetes mellitus without mention of complication, not stated as uncontrolled- Primary Hepatitis, unspecified Carpal tunnel syndrome Need vaccination-viral disease Need for prophylactic vaccination and inoculation against other viral diseases documented in this encounter Care Teams Policy Value Calculator Relationship Specialty Start Date End Date Adrienne March DO [address] [place] [address] PCP - General Family Practice 06/30/10 documented as of this encounter
--- OUTSIDE RECORDS SUMMARY | 2025-03-21 13:53 | XMS_ITS | Encounter Summary ---
Author Organization [facility] Address [address] [place] [address] Care Team Providers Care Angledozer Operator Name Role Phone Adrienne March DO Primary Care Provider Reason for Visit * Reason Comments Medication Refill Encounter Details Date Type Department Care Team (Late st Contact Info) Description 03/21/2025 Telephone [facility] Medicine [place] [address] [place] [address] Adrienne March DO [address] [place] [address] Medication Refill Social History Tobacco Use Types Packs/Day Years [...] on file Legal Sex Female 6:27 AM FINISHED GARMENT INSPECTOR Gender Identity Not on file Sexual Orientation Not on file documented as of this encounter Miscellaneous Notes * Telephone Encounter - Altagracia Rollins LPN - 03/21/2025 1:23 PM CDT 03/21/2025 1:23 PM Returned call and spoke with . Discussed patient, states she is on her way to the hospital with difficulty breathing. Will notify provider at this time . . Altagracia HERRERA * Telephone Encounter - Latisha Whitfield - 03/21/2025 12:32 PM CDT Copied from [facility] #[id number]. Topic: Medication Request >> Mar 21, 2025 12:31 PM Latisha Garcia wrote: Caller Name: Patient Callback Number: [phone] Medication (Ask patient/caregiver to spell if possible): furosemide (Lasix) 40 mg tablet Note: All medication prescriptions can be requested using one [facility] Preferred Pharmacy: [id number] - [place], [place] - [address], [facility] [address] Call Notes: Patient is totally out of medication Did caller contact the correct clinic for prescribing provider? Yes Ask caller if the refill is for a controlled medication. Is this for a controlled Medication? No Review the patient's medications to determine if they have refills remaining. Are there refill remaining for the medication? No Is there an encounter open? No documented in this encounter Plan of Treatment Upcoming Encounters Date Type Department Care Team (Late st Contact Info) Description 05/15/2025 8:40 AM CDT Office Visit [facility] [address] [place] [phone] Adrienne March, DO [address] [place] [address] 07/25/2025 10:00 AM FINISHED GARMENT INSPECTOR Office Visit [facility] [address] [place] [phone] Adrienne March, DO [address] [place] [phone] documented as of this encounter Visit Diagnoses Not on filedocumented in this encounter Care Teams Angledozer Operator Relationship Specialty Start Date End Date Adrienne March DO [address] [place] [phone] PCP - General Family Practice 06/30/10 documented as of this encounter
--- OUTSIDE RECORDS SUMMARY | 2025-03-21 13:53 | XMS_ITS | Encounter Summary ---
Author Organization [facility] Address [address] 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
--- OUTSIDE RECORDS SUMMARY | 2025-03-21 13:53 | XMS_ITS | Encounter Summary ---
Author Organization [facility] Address [address] [place] [address] Care Team Providers Care Rn Case Manager Hospice Name Role Phone Adrienne March DO Primary Care Provider Encounter Details Date Type Department Care Team (Latest Contact Info) Description 11/10/1999 Outpatient Historical [facility] Umang Urrutia MD [address] [place] [phone] Hypopotassemia (Primary Dx); Unspecified essential hypertension; Encounter for long-term (current) use of other medications Social History Tobacco Use Types Packs/Day Years Used Date Smoking Tobacco: Never Assessed Comments Unknown Sex and Gender Information Value Date Recorded Sex Assigned at Not on file 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
--- OUTSIDE RECORDS SUMMARY | 2025-03-21 13:53 | XMS_ITS | Encounter Summary ---
Author Organization [facility] Address [address] [place] [address] Care Team Providers Care Head Filter Tank Tender Helper Name Role Phone Adrienne March DO Primary Care Provider Encounter Details Date Type Department Care Team (Late st Contact Info) Description 06/11/2000 Outpatient Historical [facility] [place] [address] [place] [phone] Social History Tobacco Use Types Packs/Day Years Used Date Smoking Tobacco: Never Assessed Comments Unknown Sex and Gender Information Value Date Recorded Sex Assigned at Not on file 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
--- OUTSIDE RECORDS SUMMARY | 2025-03-21 13:53 | XMS_ITS | Encounter Summary ---
Author Organization [facility] Address [address] [place] [address] Care Team Providers Care Integrated Circuit Ic Layout Designer Name Role Phone Adrienne March DO Primary Care Provider Encounter Details Date Type Department Care Team (Latest Contact Info) Description 09/21/2000 Outpatient Historical [facility] Internal Medicine- [address] [place] [phone] Umang Urrutia MD [address] [place] [address] Type II or unspecified type diabetes mellitus without mention of complication, not stated as uncontrolled (Primary Dx); Carpal tunnel syndrome; Pain in limb Social History Tobacco Use Types Packs/Day Years Used Date Smoking Tobacco: Never Assessed Comments Unknown Sex and Gender Information Value Date Recorded Sex Assigned at Not on file 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
--- OUTSIDE RECORDS SUMMARY | 2025-03-21 13:53 | XMS_ITS | Encounter Summary ---
Author Organization [facility] Address [address] [place] [address] Care Team Providers Care Sponsorship Coordinator Name Role Phone Adrienne March DO Primary Care Provider Encounter Details Date Type Department Care Team (Latest Contact Info) Description 02/18/2001 Outpatient Historical [facility] Internal Medicine- [address] [place] [address] Umang Urrutia MD [address] [place] [address] Type II or unspecified type diabetes mellitus without mention of complication, not stated as uncontrolled (Primary Dx); Hypercalcemia Social History Tobacco Use Types Packs/Day Years Used Date Smoking Tobacco: Never Assessed Comments Unknown Sex and Gender Information Value Date Recorded Sex Assigned at Not on file 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
--- OUTSIDE RECORDS SUMMARY | 2025-03-21 13:53 | XMS_ITS | Encounter Summary ---
Author Organization [facility] Address [address] [place] [address] Care Team Providers Care Itinerant Teacher Assistant Name Role Phone Adrienne March DO Primary Care Provider +1- [phone] Encounter Details Date Type Department Care Team (Latest Contact Info) Description 03/18/2001 Outpatient [facility] Podiatry-Psychiatric [place] [address] [place] [phone] Abel Hurtado, DPM NO ADDRESS ON FILE Calcaneal spur (Primary Dx) Social History Tobacco Use Types Packs/Day Years Used Date Smoking Tobacco: Never Assessed Comments Unknown Sex and Gender Information Value Date Recorded Sex Assigned at Not on file 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
--- OUTSIDE RECORDS SUMMARY | 2025-03-21 13:53 | XMS_ITS | Encounter Summary ---
Author Organization [facility] Address [address] [place] [address] Care Team Providers Care Labor Gang Supervisor Name Role Phone Adrienne March DO Primary Care Provider +1- [phone] Encounter Details Date Type Department Care Team (Latest Contact Info) Description 07/14/2000 Outpatient Historical [facility] Cardiology- [place] [address] [place] [phone] Lukas Degroot MD NO ADDRESS ON FILE Precordial pain (Primary Dx); Palpitations Social History Tobacco Use Types Packs/Day Years Used Date Smoking Tobacco: Never Assessed Comments Unknown Sex and Gender Information Value Date Recorded Sex Assigned at Not on file 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
--- OUTSIDE RECORDS SUMMARY | 2025-03-21 13:53 | XMS_ITS | Encounter Summary ---
Author Organization [facility] Address [address] [place] [address] Care Team Providers Care Pants Busheler Name Role Phone Adrienne March DO Primary Care Provider [phone] Encounter Details Date Type Department Care Team (Latest Contact Info) Description 11/12/2000 Outpatient Historical [facility] Internal Medicine- [address] [place] [phone] Umang Urrutia MD [address] [place] [address] Type II or unspecified type diabetes mellitus without mention of complication, not stated as uncontrolled (Primary Dx); Generalized hyperhidrosis; Fever and other physiologic disturbances of temperature regulation; Tachycardia, unspecified; Calcaneal spur Social History Tobacco Use Types Packs/Day Years Used Date Smoking Tobacco: Never Assessed Comments Unknown Sex and Gender Information Value Date Recorded Sex Assigned at Not on file 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 Gender Identity Not on file Sexual Orientation Not on file documented as of this encounter Plan of Treatment Not on file documented as of this encounter Visit Diagnoses Diagnosis Type II or unspecified type diabetes mellitus without mention of complication, not stated as uncontrolled- Primary Generalized hyperhidrosis Fever and other physiologic disturbances of temperature regulation Tachycardia, unspecified Calcaneal spur documented in this encounter Care Teams Pants Busheler Relationship Specialty Start Date End Date Adrienne March DO [address] [place] [address] PCP - General Family Practice 06/30/10 documented as of this encounter
--- OUTSIDE RECORDS SUMMARY | 2025-03-21 13:53 | XMS_ITS | Encounter Summary ---
Author Organization [facility] Address 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
--- OUTSIDE RECORDS SUMMARY | 2025-03-21 13:53 | XMS_ITS | Encounter Summary ---
Author Organization [facility] Address [address] [place] [address] Care Team Providers Care Mr Teacher Name Role Phone Adrienne March DO Primary Care Provider [phone] Encounter Details Date Type Department Care Team (Latest Contact Info) Description 06/30/2000 Outpatient [facility] Internal Medicine- [address] [place] [phone] Umang Urrutia MD [address] [place] [address] Chest pain, unspecified (Primary Dx); Other and unspecified hyperlipidemia; Hepatitis, unspecified; Abnormal glucose; Pain in limb; Encounter for long-term (current) use of other medications; Edema; Unspecified urinary incontinence Social History Tobacco Use Types Packs/Day Years Used Date Smoking Tobacco: Never Assessed Comments Unknown Sex and Gender Information Value Date Recorded Sex Assigned at Not on file 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 Gender Identity Not on file Sexual Orientation Not on file documented as of this encounter Plan of Treatment Not on file documented as of this encounter Visit Diagnoses Diagnosis Chest pain, unspecified- Primary Other and unspecified hyperlipidemia Hepatitis, unspecified Abnormal glucose Pain in limb Pain in soft tissues of limb Encounter for long-term (current) use of other medications Edema Unspecified urinary incontinence documented in this encounter Care Teams Mr Teacher Relationship Specialty Start Date End Date Adrienne March DO [address] [place] [address] PCP - General Family Practice 06/30/10 documented as of this encounter
--- OUTSIDE RECORDS SUMMARY | 2025-03-21 13:53 | XMS_ITS | Encounter Summary ---
Author Organization [facility] Address [address] [place] [address] Care Team Providers Care Rigging Engineer Name Role Phone Adrienne March DO Primary Care Provider +1- [phone] Encounter Details Date Type Department Care Team (Latest Contact Info) Description 05/09/1999 Outpatient Historical [facility] [address] [phone] Jaime Barba MD NO ADDRESS ON FILE Other screening mammogram (Primary Dx) Social History Tobacco Use Types Packs/Day Years Used Date Smoking Tobacco: Never Assessed Comments Unknown Sex and Gender Information Value Date Recorded Sex Assigned at Not on file 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
--- OUTSIDE RECORDS SUMMARY | 2025-03-21 13:53 | XMS_ITS | Encounter Summary ---
Author Organization [facility] Address [address] [place] [address] Care Team Providers Care Disaster Or Damage Control Specialist Name Role Phone Adrienne March DO Primary Care Provider [phone] Encounter Details Date Type Department Care Team (Latest Contact Info) Description 03/26/1998 Outpatient Historical [facility] INTER[facility] MED Umang Urrutia MD [address] [place] [address] Headache(784.0) (Primary Dx); Other specified cardiac dysrhythmias(427.89); Nonspecific abnormal electrocardiogram (ECG) (EKG); Edema; Pure hypercholesterolem; Encounter for long-term (current) use of other medications; Abnormal glucose; Other abnormal blood chemistry Social History Tobacco Use Types Packs/Day Years Used Date Smoking Tobacco: Never Assessed Comments Unknown Sex and Gender Information Value Date Recorded Sex Assigned at Not on file 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 Gender Identity Not on file Sexual Orientation Not on file documented as of this encounter Plan of Treatment Not on file documented as of this encounter Visit Diagnoses Diagnosis Headache(784.0)- Primary Headache Other specified cardiac dysrhythmias(427.89) Other specified cardiac dysrhythmias Nonspecific abnormal electrocardiogram (ECG) (EKG) Edema Pure hypercholesterolem Pure hypercholesterolemia Encounter for long-term (current) use of other medications Abnormal glucose Other abnormal blood chemistry documented in this encounter Care Teams Disaster Or Damage Control Specialist Relationship Specialty Start Date End Date Adrienne March DO [address] [place] [phone] PCP - General Family Practice 06/30/10 documented as of this encounter
--- OUTSIDE RECORDS SUMMARY | 2025-03-21 13:53 | XMS_ITS | Encounter Summary ---
Author Organization [facility] Address [address] [place] [address] Care Team Providers Care Slurry Control Operator Helper Name Role Phone Adrienne March DO Primary Care Provider [phone] Encounter Details Date Type Department Care Team (Late st Contact Info) Description 01/13/1999 Outpatient Historical [facility] Umang Urrutia MD [address] [place] [phone] Cervical spinal stenosis (Primary Dx); Viral labyrinthitis; Unspecified adjustment reaction Social History Tobacco Use Types Packs/Day Years Used Date Smoking Tobacco: Never Assessed Comments Unknown Sex and Gender Information Value Date Recorded Sex Assigned at Not on file 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
--- OUTSIDE RECORDS SUMMARY | 2025-03-21 13:53 | XMS_ITS | Clinical Summary ---
Author Organization [facility] tone Address [address] [place] [address] Care Team Providers Care Director Of Physician Practices Name Role Phone Adrienne March Primary Care Provider Allergies Active Allergy Reactions Criticality Noted Date Comments Adhesive Tape-Silicones Rash Low 09/05/2020 Amoxicillin-Pot Clavulanate Diarrhea,Abdominal Pain Medium 09/07/2008 Codeine Unknown 04/09/2009 Semaglutide Other (See Comments) 07/13/2018 just didn't feel good Silver Sulfadiazine Swelling Low 12/29/2013 Medications fluticasone (FLONASE) 50 mcg/spray Handley, SuspensionIndica tions:Acute non-recurrent maxillary sinusitis SHAKE LIQUID AND USE 2 SPRAYS IN EACH NOSTRIL DAILY 48 mL 8 Active meclizine (ANTIVERT) 25 mg tabletIndication s:Dizziness,Vert igo of central origin of left ear Take 1 Tablet (25 mg) by mouth 3 times daily as needed for Dizziness. 60 Tablet 8 Active Blood-Glucose Meter E11.51 Test blood sugar twice daily 1 Each 0 Active walker Length of Need: 99 months Type of walker:walker with wheels 1 Each 0 Active furosemide (LASIX) 40 mg tabletIndication s:Bilateral lower extremity edema Take 1 Tablet (40 mg) by mouth daily. 90 Tablet 0 Active Additional Information Patient taking differently: 80 mgOralTWO TIMES DAILY, Reported on 07/04/2020 esomeprazole (NexIUM) 20 mg Capsule, Delayed Release(E.C.)Ind ications:Epigast jessy pain TAKE 1 CAPSULE BY MOUTH DAILY BEFORE BREAKFAST 90 Capsule 4 0 Active cetirizine (ZyrTEC) 10 mg tabletIndication s:Viral upper respiratory infection TAKE 1 TABLET(10 MG) BY MOUTH DAILY 30 Tablet 11 0 Active blood sugar diagnostic ([employer] Ultra Blue Test Strip) Strip USE TO TEST BLOOD SUGARS TWICE DAILY AND NEEDED. 200 Strip 3 0 Active lancets (One Touch Delica) 33 gauge USE TO TEST BLOOD SUGAR TWICE DAILY AND NEEDED. 100 Each 7 0 Active phenytoin sodium (DILANTIN) 100 mg extended release capsule TAKE 3 CAPSULES BY MOUTH TWICE DAILY 270 Capsule 4 0 Active lisinopriL (PRINIVIL) 5 mg tablet TAKE 1 TABLET BY MOUTH DAILY 90 Tablet 4 1 Active gabapentin (NEURONTIN) 300 mg capsule TAKE 1 CAPSULE BY MOUTH TWICE DAILY 180 Capsule 4 1 Active probenecid (BENEMID) 500 mg tablet TAKE 1 TABLET(500 MG) BY MOUTH TWICE DAILY 60 Tablet 5 1 Active metFORMIN (GLUCOPHAGE) 1,000 mg tablet TAKE 1 TABLET BY MOUTH TWICE DAILY 180 Tablet 4 1 Active Qtern 10-5 mg Tablet TAKE 1 TABLET BY MOUTH DAILY 30 Tablet 11 1 Active bumetanide (BUMEX) 2 mg tabletIndication s:Bilateral lower extremity edema TAKE 1 TABLET(2 MG) BY MOUTH DAILY 90 Tablet 1 1 Active ergocalciferol (VITAMIN D2) 50,000 unit capsule Take 1 Capsule (50,000 Units) by mouth every 2 weeks. 2 Capsule 5 1 Active desvenlafaxine (PRISTIQ) 50 mg Extended Release 24 hour tablet TAKE 1 TABLET BY MOUTH DAILY WITH BREAKFAST 90 Tablet 3 1 Active oxyCODONE-acetam inophen (PERCOCET) 10-325 mg TabletIndication s:Degenerative spondylolisthesi s,DDD (degenerative disc disease), lumbar Take 1 Tablet by mouth every 4 hours as needed for Pain, Severe. Max Daily Amount: 6 Tablets 50 Tablet 1 Active baclofen (LIORESAL) 10 mg tabletIndication s:Acute bilateral low back pain without sciatica,Muscle spasm of back TAKE 1/2 TO 1 TABLET(5 TO 10 MG) BY MOUTH THREE TIMES DAILY 270 Tablet 1 Active LEVOTHYROXINE 125 mcg tabletIndication s:Hypothyroidism due to acquired atrophy of thyroid TAKE 1 TABLET(125 MCG) BY MOUTH DAILY QUALITY ASSURANCE MANAGER 90 Tablet 1 Active potassium chloride (KLOR-CON) 20 mEq Extended Release tablet Take 1 Tablet (20 mEq) by mouth daily. 30 Tablet 2 1 Active Active Problems Problem Noted Date Diagnosed Date Chronic midline low back pain with bilateral sci atica 01/01/2021 Hx of lumbosacral spine surgery 01/01/2021 Vitamin D deficiency 01/01/2021 Degenerative spondylolisthesis 06/07/2020 History of vertebral compression fracture 2019 Status post total left knee replacement 11/23/19 Primary osteoarthritis of left knee 11/22/2019 Severe obesity (BMI 35.0-39.9) with comorbidity 11/07/2019 Allergic rhinitis 11/07/2019 Multinodular goiter 11/22/2017 DDD (degenerative disc disease), lumbar 10/25/19 Environmental tobacco smoke exposure 07/24/2015 Midline thoracic back pain 06/13/2015 Primary osteoarthritis of both knees 07/05/2014 Type 2 diabetes mellitus wit h diabetic peripheral angiopathy without gangrene, without long-term current use of insulin 03/01/2013 Gastroesophageal reflux disease without esophagi tis 01/26/2011 Peripheral vascular disease 09/23/2010 Mixed hyperlipidemia Essential hypertension 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 Overview (10/15/2010): Updating IMO/ICD9 Code and Description Recurrent major depressive disorder, in full rem ission Mixed stress and urge urinary incontinence History of seizure disorder Resolved Problems Problem Noted Date Diagnosed Date Resolved Date Non-pressure chronic ulcer o f unspecified part of left lower leg limited to breakdown of skin 01/09/2020 03/21/2020 Hypernatremia 11/07/2019 01/01/2021 Venous stasis ulcer of right lower extremity 9 03/25/2020 Spinal enthesopathy of lumbar region 04/14/2019 10/15/2020 Chronic obstructive pulmonar y disease with acute exacerbation 06/11/2014 10/15/2020 Chronic pain of left knee 03/26/2014 DM neuro manif type II 09/23/201007/10 Corns and callosities 09/23/20102013 Benign paroxysmal vertigo 04/15/2010 Diabetes mellitus type II, uncontrolled 03/01/2013 Overview (07/13/2008): Uncontolled, noncompliant with medications or lifestyle changes. Hypertriglyceridemia 014 Overview (07/13/2008): Uncontolled, noncompliant with medications or lifestyle changes. Arthritis 07/10/2014 Ulcer of lower limb, unspecified 12/28/2013 Palpitations 12/28/2013 Immunizations Immunization Administration Dates Next Due (ADACEL/BOOSTRIX)(10 YR UP) TDAP VACCINE, 0.5ML, IM 06/12/2016,07/22/2015 (PACHECO) COVID-19 VACCINE - EMERGENCY USE AUTHORIZATION, AD26,COV2S(PF) 0.5 ML IM SUSP 01/29/2021 (PNEUMOVAX 23)(50 YRS UP) PN EUMOCOCCAL POLYSACCHARIDE (PPV23) 0.5 ML, IM 01/11/2017,06/30/2010 (PREVNAR 13)(6 WKS UP) PNEUM OCOCCAL CONJUGATE (PCV13) 0.5 ML, IM 10/24/2014 (TDVAX)(7 YRS UP) TETANUS AN D DIPHTHERIA TOXOIDS, ADSORBED (2 LF OF TETANUS TOXOID AND 2 LF OF DIPHTHERIA TOXOID), 0.5ML (PF), IM 11/10/2006,01/26/2005,01/13/2002 INFLUENZA VACCINE HIGH DOSE QUADRIVALENT 65 YR UP PF IM 05/07/2020 Influenza Seasonal Unspecifi ed Formulation IM 07/21/2011,08/31/2000 Influenza Vaccine High Dose 65+ Yrs IM 0 05/21/2019,05/31/2017,05/29/2016,06/17,06/11/2014 Influenza Vaccine Split 3+ Yrs IM 2012,06/13/2012,06/30/2010,07/15,07/19/2008 Influenza Vaccine Tri Adjuva nted 65+ PF IM 05/04/2019 PREVNAR (PCV13) pneumococcal 13-valent conjugate Vaccine 10/24/2014 Family History Medical History Relation Name Comments Heart Attack Brother 1 Heart Attack Brother 2 Other Daughter 1 Diabetes Daughter 2 Kidney Disease Daughter 2 Hypertension Father Stroke Father Coronary Artery Disease Mother Heart Attack Mother Hypertension Mother Heart Attack Sister 1 Hypertension Sister 2 Kidney Disease Sister 3 Healthy Sister 4 Other Son Relation Name Status Comments Brother 1 Brother 2 Daughter 1 Daughter 2 Father Maternal Grandfather Maternal Grandmother Mother Paternal Grandfather Paternal Grandmother Sister 1 Sister 2 Sister 3 Alive Sister 4 Alive Son Social History Tobacco Use Types Packs/Day Years Used Date Smoking Tobacco: Never Smokeless Tobacco: Never Tobacco Cessation:Counseling Given: Yes Alcohol Use Standard Drinks/Week Comments No 0 (1 standard drink = 0.6 oz pur e alcohol) Comments No Sex and Gender Information Value Date Recorded Sex Assigned at Not on file Legal Sex 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 Gender Identity Not on file Sexual Orientation Not on file Occupation Industry Job Start Date Job End Date Disabled Not on file Not on file Not on file Not on file Not on file Not on file Not on file Last Filed Vital Signs Vital Sign Reading Time Taken Comments Blood Pressure 138/80 03/14/2021 1:43 PM CDT Pulse 110 03/14/2021 1:43 PM CDT Temperature 35.6 C (96.1 F) 03/14/2021 1:43 PM CDT Respiratory Rate 28 03/14/2021 1:43 PM CDT Oxygen Saturation 92% 03/14/2021 1:43 PM CDT Inhaled Oxygen Concentration - - Weight 111.1 kg (245 lb) 03/14/2021 1:43 PM CDT Height 157.5 cm (5' 2 ) 03/14/2021 1:43 PM CDT Body Mass Index 44.81 03/14/2021 1:43 PM CDT Plan of Treatment Health Maintenance Due Date Last Done Comments ZOSTER VACCINE (1 of 2) 1997 DIABETES MICROALBUMIN ANNUAL SCREEN 10/10/2019 10/10/2018, 05/04/2018, 05/04/2018, Additional history exists OSTEOPOROSIS SCREENING 07/31/2020 5, 07/30/2015, 06/26/2014 DIABETES HBA1C Q 6 MONTHS 11/20/20202019, 01/02/2020, 09/29/2019, Additional history exists LDL CHOLESTEROL ANNUAL 05/23/2021 0, 01/02/2020, 09/29/2019, Additional history exists DIABETES ANNUAL FOOT EXAM 12/23/20212020, 12/23/2020, 10/10/2018, Additional history exists RSV VACCINE (60+ or ) (1 - 1-dose 75+ series) 2022 COVID-19 Vaccine (2 - 2023-2 5 season) 2024 01/29/2021 Medicare [place] ([place]) Preventative Visit/Annual Wellness Visit 09/20/2024 12/23/2020, 05/23/2020, 04/14/2019, Additional history exists DIABETES ANNUAL RETINAL EXAM 03/30/202507/2024, 06/04/2020, 01/11/2018, Additional history exists INFLUENZA VACCINE (#1) 2025 0, 05/21/2019, 05/04/2019, Additional history exists DTAP/TDAP/TD VACCINES (3 - T d or Tdap) 06/12/2026 06/12/2016, 07/22/2015, 11/10/2006, Additional history exists COLORECTAL SCREENING Discontinued 04/01/2010 (Previously completed), 07/16/2009 (Declined) FIT/FOBT Q 1 year Discontinued 08/01/2015 PNEUMOCOCCAL VACCINE 50+ YEARS Completed 0 01/11/2017, 10/24/2014, 10/24/2014, Additional history exists Colorectal Cancer Screening Discontinued FIT-DNA Q 3 years Discontinued 05/17/2019 Flex Sig/CT Colonography Q 5 years Discontinued Medical Devices Implanted Type Area Automated Access Systems Technician Device Identifier Shelf Expiration Date Model / Serial / Lot Cement Simplex Hvisc 6194-1-010 - [id number] Implanted:01/2020 by Marco A Lewis MD at [facility] (Quantity not on file) Cement Left: Knee JAMSHID- Applied Predictive Technologies[employer] INT INC [id number] 03/19/2021 6194-1-010 / / [id number] Cement Simplex Hvisc 6194-1-010 - [id number] Implanted:01/2020 by Marco A Lewis MD at [facility] (Quantity not on file) Cement Left: Knee JAMSHID- [employer] INT INC [id number] 03/19/2021 6194-1-010 / / [id number] Hemostatic Surgifoam 1gm 1977 - [id number] Implanted:Qty : 1 on 06/21/2020 by Jan Hoffman MD at [facility] Hemostatic N/A: Back J&J- [employer] INC [id number] 10/26/20211977 / / [id number] Insert Attune Fb Cr Sz4 6mm 1516-20-406 - [id number] Implanted:Qty : 1 on 11/23/2019 by Marco A Lewis MD at [facility] Knee Left: Knee J&J- [employer] [id number] 03/19/2023 [id number] / / [id number] Comp Fem Attune Cr Cmnt Sz4 1504-00-104 - [id number] Implanted:Qty : 1 on 11/23/2019 by Marco A Lewis MD at [facility] Knee Left: Knee J&J- [employer] [id number] 09/19/2029 [id number] / / [id number] Comp Tib Attune Fb Cmnt Sz5 1506-70-005 - [id number] Implanted:Qty : 1 on 11/23/2019 by Marco A Lewis MD at [facility] Knee Left: Knee J&J- [employer] [id number] 08/19/2029 [id number] / / [id number] Vince Solera Crv Ti 5.5x30mm [id number] - [id number] Implanted:Qty : 2 on 06/21/2020 by Jan Hoffman MD at [facility] Vince N/A: Back [employer]ON[employer]- SOFAMOR DANEK 06/21/2021 [id number] / / [id number] Screw Solera 5.5/6.0 Breakoff [id number] - [id number] Implanted:Qty : 4 on 06/21/2020 by Jan Hoffman MD at [facility] Screw N/A: Back [employer]- [employer]ANEK 06/21/2021 [id number] / / [id number] Screw Cdh 6.5x45mm 5.5/6.0 Mas Cc [id number] - [id number] Implanted:Qty : 2 on 06/21/2020 by Jan Hoffman MD at [facility] Screw N/A: Back [employer] 06/21/2021 [id number] / / [id number] Screw Cdh 6.5x35mm 5.5/6.0 Mas Cc [id number] - [id number] Implanted:Qty : 2 on 06/21/2020 by Jan Hoffman MD at [facility] Screw N/A: Back [employer]ANEK 06/21/2021 [id number] / / [id number] Putty Dbx Dbm 1ml 91544 - [id number] Implanted:Qty : 1 on 06/21/2020 by Jan Hoffman MD at [facility] Tissue N/A: Back MUSCULOSKELETAL TRANSPLANT FOU 07/21/2021 [id number] / [id number] Readigraft Canc Chips 15ml Can15 14bp - [id number] Implanted:Qty : 1 on 06/21/2020 by Jan Hoffman MD at [facility] Tissue N/A: Back LIFENET 08/07/2024 CAN15 14BP / / [id number] Procedures Procedure Name Priority Date/Time Associated Diagnosis Comments DIABETES FOOT EXAM Routine 12/23/2020 DIABETES EYE EXAM Routine 06/04/2020 LIPID PANEL Routine 05/23/2020 10:48 AM CDT Type 2 diabetes mellitus with diabetic peripheral angiopathy without gangrene, without long-term current use of insulin ([facility]) HEMOGLOBIN A1C Routine 05/23/2020 10:48 AM CDT Type 2 diabetes mellitus with diabetic peripheral angiopathy without gangrene, without long-term current use of insulin ([facility]) COLON CANCER SCREEN, STOOL DNA Routine 05/17/2019 4:15 PM CDT Screening for colon cancer MICROALBUMIN/CREATIN INE RATIO, RANDOM UR Routine 10/10/2018 9:52 AM GLOBAL SALES MANAGER Type 2 diabetes mellitus with diabetic peripheral angiopathy without gangrene, without long-term current use of insulin ([facility]) POC OCCULT BLOOD UP TO 3 CARDS Routine 08/01/2015 5:24 PM GLOBAL SALES MANAGER Screen for colon cancer XR DEXA BONE DENSITY AXIAL 1 OR MORE SITES Routine 07/30/2015 1:58 PM GLOBAL SALES MANAGER Postmenopausal atrophic vaginitis from Last 3 Months or Most Recently Relevant to Health Maintenance Results * DIABETES FOOT EXAM (12/23/2020) us Adrienne March DO HEALTH MAINTENANCE Edited R esult - Final * DIABETES EYE EXAM (06/04/2020) us Abstract Spg Provider HEALTH MAINTENANCE Final R esult * (ABNORMAL) HEMOGLOBIN A1C (05/23/2020 10:48 AM CDT) HEMOGLOBIN A1C 7.1(H) See Comment % 05/23/2020 8:25 PM CDT [facility] EST. AVG GLUCOSE, A1C 157 mg/dL 05/23/2020 8:25 PM CDT [facility] Blood Venipuncture / Unknown 05/23/2020 10:48 AM CDT 05/23/2020 7:56 PM CDT Narrative [facility] - 05/23/2020 8:25 PM CDT HGB A1C INTERPRETATION NORMAL: <5.7% PRE-DIABETES: 5.7 - 6.4% DIABETES: 6.5% OR GREATER Falsely low A1C measurements can occur when: 1. Anemia and/or hemolytic anemia is present. 2. Hemoglobin variants present. 3. Renal failure. 4. Transfusion of blood product in the last 120 days. We recommend ordering a fructosamine test([id number]) to more accurately assess glycemic status if any of the above conditions are present. Adrienne March DO CHEMISTRY ORDERABLES Final Result [facility] CLIA# [id number] [address] [place] [id number] * (ABNORMAL) LIPID PANEL (05/23/2020 10:48 AM CDT) [facility] CHOLESTEROL 215(H) <200 mg/dL 05/23/2020 9:06 PM CDT [facility] TRIGLYCERIDE 175(H) <150 mg/dL 05/23/2020 9:06 PM CDT [facility] HDL 83(H) 40 - 59 mg/dL 05/23/2020 9:06 PM CDT [facility] LDL CALCULATED 97 <100 mg/dL 05/23/2020 9:06 PM CDT [facility] NON-HDL CHOLESTEROL 132(H) <130 mg/dL 05/23/2020 9:06 PM CDT [facility] Blood Venipuncture / Unknown 05/23/2020 10:48 AM CDT 05/23/2020 7:56 PM CDT Narrative [facility] - 05/23/2020 9:06 PM CDT TOTAL CHOLESTEROL mg/dL Desirable <200 Borderline high 200-239 High >=240 TRIGLYCERIDES mg/dL Normal <150 Borderline high 150-199 High 200-499 Very high >=500 HDL CHOLESTEROL mg/dL Low <40 Normal 40-59 Desirable >=60 NON HDL CHOLESTEROL mg/dL Optimal <130 Near Optimal 130-159 Borderline High 160-189 Very High >=190 CALCULATED LDL mg/dL LDL <70, OPTIMAL if have Atherosclerotic cardiovascular disease (ASCVD) or intermediate or higher (>7.5%) 10 year risk of ASCVD including most adults with diabetes. LDL <100, Optimal in adult patients with low (<7.5%) 10 year ASCVD risk LDL 100-160, Suboptimal LDL >160, High LDL >190, Very high ATPIII Guidelines Reference Ranges for Lipid Panels (NCEP/AMA) . Adrienne March DO CHEMISTRY ORDERABLES Final Result [facility]# [id number] [facility] [place] [address] * COLON CANCER SCREEN, STOOL DNA (05/17/2019 4:15 PM CDT) COLOGUARD RESULT Negative Not Applicable [facility] Comment: A negative result indicates a low likelihood that a colorectal cancer (CRC) or an advanced adenoma (adenomatous polyps with more advanced pre-malignant features) is present. The chance that a person with a negative Cologuard test has a colorectal cancer is less than 1 in 1500 (negative predictive value >99.9%) or has an advanced adenoma is less than 5.3% (negative predictive value 94.7%). These data are based on a prospective cross-sectional screening study of 10,000 individuals at average risk for colorectal cancer who were screened with both Cologuard and colonoscopy. (Linette Contreras. et al, N Engl J Med 2014;370(14):3324-0382) COLOGUARD RE-SCREENING RECOMMENDATION: Periodic routine colorectal cancer screening is an important part of preventive healthcare for asymptomatic persons at average risk for colorectal cancer. Following a negative Cologuard result, the [employer] Society and U.S. Multi-Society Task Force screening guidelines recommend a Cologuard re-screening interval of 3 years. References: [employer] Society (ACS). Colorectal cancer prevention and early detection. [place], [place]: [employer] Society; [updated 2015Jan 11]. https://www.cancer.org/cancer/anwly-zyivnx-anrogx/fihdrppri-teaeqiwlc-zptxpvg/ac s-rec ommendations.html. Accessed May 20, 2018; Héctor BAUM, Marleny JURADO, Cruzito BRADLEY, Colorectal Cancer Screening: Recommendations for Physicians and Patients from the U.S. Multi-Society Task Force on Colorectal Cancer Screening, Am J Gastroenterology 2017; 112:9673-3902. Test Type: Composite algorithmic analysis of stool DNA-biomarkers with hemoglobin immunoassay. Quantitative values of individual biomarkers are not reportable and are not associated with individual biomarker result reference ranges. Precautions and Limitations: Cologuard is intended for colorectal cancer screening of adults of either sex, 50 years or older, who are at typical average-risk for colorectal cancer. A negative Cologuard test result does not guarantee the absence of colorectal cancer or advanced adenoma (pre-cancer). Patients with a negative Cologuard test result should be advised to continue participating in a colorectal cancer screening program. Cologuard may produce a positive result, even though a colonoscopy may not find colorectal cancer or precancerous polyps. The performance of Cologuard has been established in a cross sectional study (i.e., single point in time). Performance has not been evaluated in adults who have been previously tested with Cologuard or in patients less than 50 years of age. Cologuard has been approved for use by the U.S. FDA. Cologuard performance data in a 10,000 patient pivotal study using colonoscopy as the reference method can be accessed at the following location: www.[facility]/results. Additional description of the Cologuard test process, warnings and precautions can be found at www.cologuardtest.com. Rx Only. Stool STOOL SPECIMEN / Unknown 05/17/2019 4:15 PM CDT 05/18/2019 11:04 PM CDT Adrienne March DO BODY FLUIDS AND STOOLS Rosetta terrazas [facility] CLIA # [id number] [address], [address] [place] [address] * (ABNORMAL) MICROALBUMIN/CREATININE RATIO, RANDOM UR (10/10/2018 9:52 AM GLOBAL SALES MANAGER) MICROALBUMIN, URINE 24.1 No Reference Range mg/dL 10/10/2018 9:10 PM GLOBAL SALES MANAGER [facility] CREATININE, URINE 35.8 29.0 - 226.0 mg/dL 10/10/2018 9:10 PM GLOBAL SALES MANAGER [facility] Comment: Reference Range varies with fluid intake and diet. MICROALBUMIN/ CREAT RATIO, UR 673.2(H) <25.0 mg/g 10/10/2018 9:10 PM GLOBAL SALES MANAGER [facility] Urine URINE SPECIMEN OBTAINED BY CLEAN CATCH PROCEDURE / Unknown Collection / Unknown 10/10/2018 9:52 AM GLOBAL SALES MANAGER 10/10/2018 7:34 PM GLOBAL SALES MANAGER Narrative [facility] - 10/10/2018 9:10 PM GLOBAL SALES MANAGER Condition Microalbumin/Creat ratio Normal Males <17 Normal Females <25 Microalbuminuria Males 17-299 Microalbuminuria Females 25-299 Overt proteinuria >=300 Raissa Hernández CUT OFF SAW OPERATOR URINE ORDERABLES Final R esult Performing Organization Address [facility] Co de Phone Number [facility] CLIA# [id number] [address] [place] [address] * (ABNORMAL) POC OCCULT BLOOD UP TO 3 CARDS (08/01/2015 5:24 PM GLOBAL SALES MANAGER) OCCULT BLOOD #1 Positive(A ) Negative [facility] OCCULT BLOOD #2 Positive(A ) Negative [facility] OCCULT BLOOD #3 Positive(A ) Negative [facility] Stool specimen (specimen) 08/01/2015 5:24 PM GLOBAL SALES MANAGER Deanne Banks CUT OFF SAW OPERATOR POINT OF CARE TESTING Final R esult Performing Organization Address [facility] Co de Phone Number [facility] CLIA# [id number] [address] [place] [address] * XR DEXA BONE DENSITY AXIAL 1 OR MORE SITES (07/30/2015 1:58 PM GLOBAL SALES MANAGER) Anatomical Region Laterality Modality Digital Radiogra phy 07/30/2015 1:48 PM GLOBAL SALES MANAGER Narrative 07/31/2015 8:08 AM GLOBAL SALES MANAGER PROCEDURE DEXA BONE DENSITY, 30 July 2015 Bone mineral densitometry was assessed by DEXA of the lumbar spine and left hip. Data from the study 26 June 2014 is compared. Total density measured in the lumbar spine is 1.175 g/sq cm for a T score of +1.2. The total bone density of the left hip measures 1.050 g/sq cm for a T score of +0.9. The femoral neck region measures 0.844 g/sq cm for a T score of 0.0. Since the previous measurement, there has has been 0.1% increase in lumbar spine total bone density and 1.7% increase in total left hip bone density. IMPRESSION normal bone mineral density, with minimal interval change Procedure Note Christian Rivas MD - 07/31/2015 PROCEDURE DEXA BONE DENSITY, 30 July 2015 Bone mineral densitometry was assessed by DEXA of the lumbar spine and left hip. Data from the study 26 June 2014 is compared. Total density measured in the lumbar spine is 1.175 g/sq cm for a T score of +1.2. The total bone density of the left hip measures 1.050 g/sq cm for a T score of +0.9. The femoral neck region measures 0.844 g/sq cm for a T score of 0.0. Since the previous measurement, there has has been 0.1% increase in lumbar spine total bone density and 1.7% increase in total left hip bone density. IMPRESSION normal bone mineral density, with minimal interval change Deanne [facility] ORDERABLES Final Result from Last 3 Months or Most Recently Relevant to Health Maintenance Insurance MEDICAID [place] [facility] RX [facility] Medicare Part D RX [employer] (INTERNAL) [facility] Advance Directives For more information, please contact: [phone] * Full Code (Latest Code Status on File) Date Activated Date Inactivated Comments 06/21/2020 9:47 AM 06/23/2020 4:07 PM * Full Code Date Activated Date Inactivated Comments 11/23/2019 4:04 PM 11/25/2019 4:08 PM * Full Code Date Activated Date Inactivated Comments 11/23/2019 9:11 AM 11/23/2019 4:04 PM Care Teams Director Of Physician Practices Relationship Specialty Start Date End Date Adrienne March DO [address] [place] [address] PCP - General Family Practice 06/30/10
--- OUTSIDE RECORDS SUMMARY | 2025-03-21 13:53 | XMS_ITS | Encounter Summary ---
Author Organization [facility] Address [address] [place] [address] Care Team Providers Care Inspector Fabric Name Role Phone Adrienne March DO Primary Care Provider Encounter Details Date Type Department Care Team (Latest Contact Info) Description 09/26/[address] 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
--- OUTSIDE RECORDS SUMMARY | 2025-03-21 13:53 | XMS_ITS | Encounter Summary ---
Author Organization [facility] Address [address] [place] [address] Care Team Providers Care Rn Case Mgr Name Role Phone Adrienne March DO Primary Care Provider Encounter Details Date Type Department Care Team (Late st Contact Info) Description 10/02/1998 Outpatient Historical [facility] INTER[facility] MED Umang Urrutia MD [address] [place] [address] Cervical disc displacmnt (Primary Dx); Premature beats, unspecified; Other specified cardiac dysrhythmias(427.89 ) Social History Tobacco Use Types Packs/Day Years Used Date Smoking Tobacco: Never Assessed Comments Unknown Sex and Gender Information Value Date Recorded Sex Assigned at Not on file 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 Sex Female 3:34 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 SPECIALIST Gender Identity Not on file Sexual Orientation Not on file documented as of this encounter Plan of Treatment Not on file documented as of this encounter Visit Diagnoses Diagnosis Cervical disc displacmnt- Primary Displacement of cervical intervertebral disc without myelopathy Premature beats, unspecified Other specified cardiac dysrhythmias(427.89) Other specified cardiac dysrhythmias documented in this encounter Care Teams Rn Case Mgr Relationship Specialty Start Date End Date Adrienne March DO [address] [place] [phone] PCP - General Family Practice 06/30/10 documented as of this encounter
--- OUTSIDE RECORDS SUMMARY | 2025-03-21 13:53 | XMS_ITS | Encounter Summary ---
Author Organization [facility] Address [address] [place] [address] Care Team Providers Care Investment Banker Name Role Phone Adrienne March DO Primary Care Provider [phone]- [phone] Encounter Details Date Type Department Care Team (Latest Contact Info) Description 04/04/2001 Outpatient [facility] Kimberly [address] [place] [phone] Abel Hurtado, DPM NO ADDRESS ON FILE Calcaneal spur (Primary Dx) Social History Tobacco Use Types Packs/Day Years Used Date Smoking Tobacco: Never Assessed Comments Unknown Sex and Gender Information Value Date Recorded Sex Assigned at Not on file 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
--- OUTSIDE RECORDS SUMMARY | 2025-03-21 13:53 | XMS_ITS | Encounter Summary ---
Author Organization [facility] Address [address] [place] [address] Care Team Providers Care Sample Box Maker Name Role Phone Adrienne March DO Primary Care Provider Encounter Details Date Type Department Care Team (Late st Contact Info) Description 10/15/1998 Outpatient Historical [facility] INTER[facility] MED Umang Urrutia MD [address] [place] [phone] Cervical disc displacmnt (Primary Dx); Encounter for long-term (current) use of other medications Social History Tobacco Use Types Packs/Day Years Used Date Smoking Tobacco: Never Assessed Comments Unknown Sex and Gender Information Value Date Recorded Sex Assigned at Not on file 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
--- OUTSIDE RECORDS SUMMARY | 2025-03-21 13:53 | XMS_ITS | Encounter Summary ---
Author Organization [facility] Address [address] [place] [address] Care Team Providers Care Educational Guidance Counselor Name Role Phone Adrienne March DO Primary Care Provider Encounter Details Date Type Department Care Team (Late st Contact Info) Description 04/11/1999 Outpatient Historical [facility] INTER[facility] MED Umang Urrutia MD [address] [place] [phone] Cervicalgia (Primary Dx); Brachial neuritis or radiculitis NOS; Obesity, unspecified; Encounter for long-term (current) use of other medications Social History Tobacco Use Types Packs/Day Years Used Date Smoking Tobacco: Never Assessed Comments Unknown Sex and Gender Information Value Date Recorded Sex Assigned at Not on file 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
--- OUTSIDE RECORDS SUMMARY | 2025-03-21 13:53 | XMS_ITS | Encounter Summary ---
Author Organization [facility] Address [address] [place] [address] Care Team Providers Care Seismic Plotter Name Role Phone Adrienne March DO Primary Care Provider Encounter Details Date Type Department Care Team (Latest Contact Info) Description 07/07/2001 Outpatient [facility] Podiatry[facility] Kimberly [address] [place] [phone] Abel Hurtado, MARCE NO ADDRESS ON FILE Calcaneal spur (Primary Dx); Plantar fibromatosis; Pain in limb Social History Tobacco Use Types Packs/Day Years Used Date Smoking Tobacco: Never Assessed Comments Unknown Sex and Gender Information Value Date Recorded Sex Assigned at Not on file 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
--- OUTSIDE RECORDS SUMMARY | 2025-03-21 13:53 | XMS_ITS | Encounter Summary ---
Author Organization [facility] Address [address] [place] [address] Care Team Providers Care Self Sealing Fuel Tank Builder Name Role Phone Adrienne March DO Primary Care Provider Encounter Details Date Type Department Care Team (Latest Contact Info) Description 12/31/1999 Outpatient Historical [facility] INTER[facility] MED Umang Urrutia MD [address] [place] [address] Hypopotassemia (Primary Dx); Unspecified essential hypertension; Hyperosmolality; Encounter for long-term (current) use of other medications Social History Tobacco Use Types Packs/Day Years Used Date Smoking Tobacco: Never Assessed Comments Unknown Sex and Gender Information Value Date Recorded Sex Assigned at Not on file Legal Sex Female 3:34 AM 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
--- OUTSIDE RECORDS SUMMARY | 2025-03-21 13:53 | XMS_ITS | Encounter Summary ---
Author Organization [facility] Address [address] [place] [address] Care Team Providers Care Buggy Loader Name Role Phone Adrienne March DO Primary Care Provider Encounter Details Date Type Department Care Team (Latest Contact Info) Description 07/14/2000 Outpatient Historical [facility] [address] [phone] Lesly Jones MD NO ADDRESS ON FILE Other screening mammogram (Primary Dx) Social History Tobacco Use Types Packs/Day Years Used Date Smoking Tobacco: Never Assessed Comments Unknown Sex and Gender Information Value Date Recorded Sex Assigned at Not on file 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
--- OUTSIDE RECORDS SUMMARY | 2025-03-21 13:53 | XMS_ITS | Encounter Summary ---
Author Organization [facility] Address [address] [place] [address] Care Team Providers Care Senior Java Software Engineer Name Role Phone Adrienne March DO Primary Care Provider Encounter Details Date Type Department Care Team (Late st Contact Info) Description 05/12/1999 Outpatient Historical [facility] [address] [place] [phone] Lukas Vang MD [address] [place] [address] Pain in limb (Primary Dx) Social History Tobacco Use Types Packs/Day Years Used Date Smoking Tobacco: Never Assessed Comments Unknown Sex and Gender Information Value Date Recorded Sex Assigned at Not on file Legal Sex Female 3:34 AM BILINGUAL SPEECH LANGUAGE PATHOLOGIST Gender Identity Not on file Sexual Orientation Not on file documented as of this encounter Plan of Treatment Not on file documented as of this encounter Visit Diagnoses Diagnosis Pain in limb- Primary Pain in soft tissues of limb documented in this encounter Care Teams Senior Java Software Engineer Relationship Specialty Start Date End Date Adrienne March DO [address] [place] [address] PCP - General Family Practice 06/30/10 documented as of this encounter
--- OUTSIDE RECORDS SUMMARY | 2025-03-21 13:53 | XMS_ITS | Encounter Summary ---
Author Organization [facility] Address [address] [place] [address] Care Team Providers Care Char Filter Tank Tender Name Role Phone Adrienne March DO Primary Care Provider Encounter Details Date Type Department Care Team (Late st Contact Info) Description 02/05/1999 Outpatient Historical [facility] INTER[facility] MED Umang Urrutia MD [address] [place] [phone] Rotator cuff rupture (Primary Dx); Adhesive capsulit shlder; Other chest pain; Unspecified adjustment reaction Social History Tobacco Use Types Packs/Day Years Used Date Smoking Tobacco: Never Assessed Comments Unknown Sex and Gender Information Value Date Recorded Sex Assigned at Not on file Legal Sex Female 3:34 AM PUBLIC RELATIONS Gender Identity Not on file Sexual Orientation Not on file documented as of this encounter Plan of Treatment Not on file documented as of this encounter Visit Diagnoses Diagnosis Rotator cuff rupture- Primary Rotator cuff (capsule) sprain Adhesive capsulit shlder Adhesive capsulitis of shoulder Other chest pain Unspecified adjustment reaction documented in this encounter Care Teams Char Filter Tank Tender Relationship Specialty Start Date End Date Adrienne March DO [address] [place] [address] PCP - General Family Practice 06/30/10 documented as of this encounter
--- OUTSIDE RECORDS SUMMARY | 2025-03-21 13:53 | XMS_ITS | Encounter Summary ---
Author Organization [facility] Address [address] 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
--- OUTSIDE RECORDS SUMMARY | 2025-03-21 13:53 | XMS_ITS | Encounter Summary ---
Author Organization [facility] Address [address] 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
--- OUTSIDE RECORDS SUMMARY | 2025-03-21 13:53 | XMS_ITS | Clinical Summary ---
Author Organization [facility] Address [address] [place] [place] [address] Care Team Providers Care [place]is [place] Manager Name Role Phone Adrienne March Primary Care Provider Allergies Active Allergy Reactions Criticality Noted Date Comments Adhesive Tape-Silicones Rash Low 09/05/2020 Amoxicillin-Pot Clavulanate Diarrhea,Abdominal Pain Medium 09/07/2008 Codeine Unknown 04/09/2009 Semaglutide Other (See Comments) 07/13/2018 just didn't feel good Silver Sulfadiazine Swelling Low 12/29/2013 Medications aspirin (ECOTRIN EC) 81 mg Tablet, Delayed Release (E.C.) Take 81 mg by mouth daily. Active fluticasone propionate (FLONASE) 50 mcg/spray [place], Suspension nasal inhalerIndicatio ns:Sinus congestion Administer 1 [place] in each nostril 2 times daily. shake before using 48 mL 05/11/20 Active lancets (OneTouch Delica Plus Lancet) 33 gaugeIndications :Type 2 diabetes mellitus without complication, without long-term current use of insulin ([facility]) USE TO TEST BLOOD SUGAR TWICE DAILY AND NEEDED. 200 Each 7 05/12/20 Active albuterol sulfate HFA 90 mcg/actuation aerosol inhalerIndicatio ns:Chronic respiratory failure with hypoxia and hypercapnia ([facility]),Decrea sed lung sounds Inhale TWO puffs BY MOUTH EVERY SIX hours NEEDED FOR SHORTNESS OF BREATH OR wheezing. 8.5 Gram 4 08/24/20 23 Active Spiriva Respimat 2.5 mcg/actuation MistIndications: Chronic respiratory failure with hypoxia and hypercapnia (CMS/HCC),Decrea sed lung sounds Inhale TWO puffs BY MOUTH DAILY 4 Gram 3 08/24/20 23 Active gabapentin (NEURONTIN) 300 mg capsuleIndicatio ns:Type 2 diabetes mellitus with diabetic polyneuropathy, without long-term current use of insulin ([facility]) Take 1 Capsule (300 mg) by mouth 3 times daily. 270 Capsule 2 12/09/19 24 Active dapagliflozin propanediol (FARXIGA) 5 mg TabletIndication s:Type 2 diabetes mellitus with diabetic polyneuropathy, unspecified whether halfway insulin use ([facility]),Frail elderly,History of CVA (cerebrovascular accident) without residual deficits Take 1 Tablet (5 mg) by mouth daily. 100 Tablet 3 01/03/20 24 Active cetirizine (ZyrTEC) 10 mg tabletIndication s:Viral upper respiratory infection take 1 tablet by mouth daily 100 Tablet 3 04/06/20 24 Active flash glucose scanning reader (FreeCAYMUS MEDICALyle Ailin 2 [place]) MiscIndications: Type 2 diabetes mellitus without complication, without long-term current use of insulin ([facility]) Use to monitor glucose continuously. 1 Each 04/18/20 24 Active ergocalciferol (VITAMIN D2) 50,000 unit capsule Take 1 Capsule (50,000 Units) by mouth every 21 days. 6 Capsule 3 04/23/20 24 Active apixaban (ELIQUIS) 5 mg tablet Take 1 Tablet (5 mg) by mouth 2 times daily. 60 Tablet 11 05/17/20 24 Active portable oxygenIndication s:Chronic respiratory failure with hypoxia and hypercapnia (CMS/HCC),Chroni c obstructive pulmonary disease, unspecified COPD type (CMS/HCC),Cor pulmonale (CMS/HCC) Portable oxygen concentrator Face to Face completed within 30 days: yes Length of Need: 99 months By: Nasal Cannula Continuously at 2 L/min. 1 Each 05/23/20 24 Active desvenlafaxine (PRISTIQ) 50 mg Extended Release 24 hour tablet TAKE ONE TABLET BY MOUTH DAILY with breakfast. 100 Tablet 3 05/31/20 24 Active naloxone (NARCAN) 4 mg/spray [place], Non-Aerosol EMERGENCY USE ONLY: Administer 1 spray (4 mg) in one nostril one time. May repeat in alternating nostrils every 2-3 min until responsive or EMS arrives. 2 Each 3 07/24/20 24 Active furosemide (Lasix) 40 mg tablet Take 1 Tablet (40 mg) by mouth daily. 90 Tablet 4 08/16/20 24 Active flash glucose sensor (FreeStyle Ailin 2 Sensor) KitIndications:T ype 2 diabetes mellitus without complication, without long-term current use of insulin ([facility]) Use to monitor glucose continuously. Replace sensor every 14 days. 6 Kit 3 08/24/20 24 Active atorvastatin (LIPITOR) 40 mg tablet Take 1 Tablet by mouth daily. 08/07/20 24 Active mupirocin (BACTROBAN) 2 % OintmentIndicati ons:Laceration without foreign body, left lower leg, initial encounter Apply to affected area daily. 15 Gram 09/14/20 24 Active polyethylene glycol 3350 (Miralax) 17 gram/dose PowderIndication s:Other constipation Take 1 Scoop (17 Grams) by mouth daily. Dissolve in 8 ounces of fluid and drink entire liquid 527 Gram 10/05/19 25 Active dulaglutide (TRULICITY) 3 mg/0.5 mL injectionIndicat ions:Type 2 diabetes mellitus with diabetic polyneuropathy, with long-term current use of insulin ([facility]/HCC) Inject 0.5 mL (3 mg) by subcutaneous injection every 7 days. 6 mL 3 10/06/19 25 Active Safety Lancets 28 gauge TEST 1 TIME DAILY 100 Each 4 11/02/19 25 Active alcohol Pads, Medicated TEST 1 TIME DAILY 100 Each 4 11/02/19 25 Active OneTouch Ultra Test Strip TEST 1 TIME DAILY 100 Each 4 11/02/19 25 Active promethazine-dex tromethorphan (PHENERGAN-DM) 6.25-15 mg/5 mL syrupIndications :Other cough Take 5 mL by mouth every 4 hours as needed for Cough. 120 mL 1 11/09/19 25 Active levothyroxine 137 mcg tabletIndication s:Hypothyroidism due to acquired atrophy of thyroid Take 1 Tablet (137 mcg) by mouth daily in the morning. 90 Tablet 1 12/02/19 25 Active esomeprazole (NexIUM) 20 mg Capsule, Delayed Release(E.C.)Ind ications:Epigast jessy pain TAKE 1 CAPSULE BY MOUTH DAILY BEFORE BREAKFAST 100 Capsule 3 01/13/20 25 Active potassium CHLORIDE (K-DUR,KLOR-CON M20) 20 mEq Extended Release tablet take 1 tablet by mouth once daily 100 Tablet 3 01/13/20 25 Active phenytoin sodium (DILANTIN) 100 mg extended release capsule TAKE 3 CAPSULES BY MOUTH TWICE DAILY. 540 Capsule 2 01/13/20 25 Active metoprolol succinate (TOPROL XL) 25 mg Extended Release 24 hour tablet TAKE THREE TABLETS BY MOUTH EVERY 12 hours 540 Tablet 3 01/13/20 25 Active metFORMIN (GLUCOPHAGE) 500 mg tabletIndication s:Type 2 diabetes mellitus with diabetic polyneuropathy, with long-term current use of insulin (CMS/HCC) TAKE ONE TABLET BY MOUTH TWICE DAILY. 200 Tablet 01/17/20 25 Active azelastine (ASTELIN) 137 mcg/actuation nasal sprayIndications :Post-nasal drip ADMINISTER TWO SPRAYS IN EACH NOSTRIL TWICE DAILY 30 mL 3 01/17/20 25 Active oxyCODONE-acetam inophen (PERCOCET) 10-325 mg TabletIndication s:Degenerative spondylolisthesi s,DDD (degenerative disc disease), lumbar Take 1 Tablet by mouth every 4 hours as needed for Pain, Severe. Max Daily Amount: 6 Tablets 50 Tablet 01/30/20 25 Active ondansetron (ZOFRAN ODT) 4 mg Tablet, Rapid DissolveIndicati ons:Nausea and vomiting, unspecified vomiting type Take 1 Tablet (4 mg) by mouth every 8 hours as needed for Nausea/Emesis. Dissolve tablet on top of tongue, then swallow with saliva. 30 Tablet 03/19/20 25 Active cephALEXin (KEFLEX) 500 mg capsuleIndicatio ns:UTI symptoms Take 1 Capsule (500 mg) by mouth 2 times daily for 7 days. 14 Capsule 03/19/20 25 025 Active doxycycline hyclate (VIBRAMYCIN) 100 mg tabletIndication s:Folliculitis Take 1 Tablet (100 mg) by mouth 2 times daily for 7 days. 14 Tablet 03/13/20 25 025 Active Problems Problem Noted Date Diagnosed Date Abdominal lymphadenopathy 07/27/2024 Paroxysmal atrial fibrillation 07/22/2024 Longstanding persistent atrial fibrillation 06/22 History of falling 07/19/2024 Type 2 diabetes mellitus wit h diabetic polyneuropathy, with long-term current use of insulin 03/21/2024 Closed fracture of right distal radius 3 Chronic respiratory failure with hypoxia and hyp ercapnia 12/29/2021 Type 2 diabetes mellitus wit h stage 3b chronic kidney disease, without long-term current use of insulin 12/29/2021 Morbid obesity with body mass index of 40.0-49.9 12/29/2021 Moderate to severe aortic stenosis 12/29/2021 Frail elderly 12/29/2021 Hx of lumbosacral spine surgery 01/01/2021 Chronic midline low back pain with bilateral sci atica 01/01/2021 Vitamin D deficiency 01/01/2021 Degenerative spondylolisthesis 06/07/2020 History of vertebral compression fracture 2019 Status post total left knee replacement 11/23/19 Allergic rhinitis 11/07/2019 Multinodular goiter 11/22/2017 DDD (degenerative disc disease), lumbar 10/25/19 Environmental tobacco smoke exposure 07/24/2015 Midline thoracic back pain 06/13/2015 Primary osteoarthritis of both knees 07/05/2014 Panlobular emphysema 06/11/2014 Gastroesophageal reflux disease without esophagi tis 01/26/2011 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 stress and urge urinary incontinence Mixed hyperlipidemia History of CVA (cerebrovascu lar accident) without residual deficits Overview (01/15/2021): Updating IMO/ICD9 Code and Description Essential hypertension Recurrent major depressive disorder, in full rem ission History of seizure disorder Resolved Problems Problem Noted Date Diagnosed Date Resolved Date Stage 3a chronic kidney disease 07/27/2024 01/29/2025 Atrial fibrillation with RVR 07/21/2024 07/27/2024 Diarrhea 07/20/2024 07/27/2024 DERIC (acute kidney injury) 07/20/2024 UTI (urinary tract infection) 07/19/2024 07/27/2024 Severe sepsis without septic shock 07/19/2024 07/27/2024 Cor pulmonale 12/29/2021 12/25/2023 Non-pressure chronic ulcer o f unspecified part of left lower leg limited to breakdown of skin 01/09/2020 03/21/2020 Hypernatremia 11/07/2019 01/01/2021 Venous stasis ulcer of right lower extremity 9 03/25/2020 Spinal enthesopathy of lumbar region 04/14/2019 10/15/2020 Chronic pain of left knee 03/26/2014 Corns and callosities 09/23/20102013 DM neuro manif type II 09/23/201007/10 Benign paroxysmal vertigo 04/15/2010 Hypertriglyceridemia 014 Overview (01/15/2021): Uncontolled, noncompliant with medications or lifestyle changes. Arthritis 07/10/2014 Diabetes mellitus type II, uncontrolled 03/01/2013 Overview (01/15/2021): Uncontolled, noncompliant with medications or lifestyle changes. Ulcer of lower limb, unspecified 12/28/2013 Palpitations 12/28/2013 Encounters Date Type Department Care Team Description 03/21/2025 Telephone [facility] [address] [place] [address] Adrienne March, DO Medication Refill 03/19/2025 11:40 AM CDT Office Visit [facility] [address] [place] [address] December, MARINE BIOLOGIST Acute generalized abdominal pain (Primary Dx); Nausea and vomiting, unspecified vomiting type; UTI symptoms; Drug-induced constipation 03/16/2025 Telephone [facility] [address] [place] [address] December, MARINE BIOLOGIST Medication Review 03/16/2025 Telephone [facility] [address] [place] [address] Adrienne March, DO Clinical Consult Before Scheduling 03/13/2025 10:00 AM CDT Office Visit [facility] [address] [place] [address] [place], December, MARINE BIOLOGIST History of falling (Primary Dx); Folliculitis; Fluid retention 03/09/2025 Telephone [facility] [address] [place] [address] Adrienen March, Information 03/06/2025 3:40 PM CDT Office Visit [facility] [address] [place] [address] Wilson, December, MARINE BIOLOGIST Fluid retention (Primary Dx); Acute foot pain, left 03/06/2025 Telephone [facility] [address] [place] [address] Adrienne March, Clinical Consult Before Scheduling 02/15/2025 Orders Only [facility] [address] [place] [address] Adrienne March, Type 2 diabetes mellitus with diabetic polyneuropathy, with long-term current use of insulin ([facility]) 02/13/2025 External Device Data [facility] ABSTRACTION Provider, Abstract 02/01/2025 Telephone [facility] [address] [place] [address] Adrienne March DO Patient Communication 01/18/2025 2:20 PM CDT Office Visit [facility] [address] [place] [address] Adrienne March, Type 2 diabetes mellitus with diabetic polyneuropathy, with long-term current use of insulin (CMS/HCC) (Primary Dx); Degenerative spondylolisthesis; DDD (degenerative disc disease), lumbar; Panlobular emphysema (CMS/HCC); Paroxysmal atrial fibrillation (CMS/HCC); Chronic respiratory failure with hypoxia and hypercapnia (CMS/HCC); Morbid obesity with body mass index of 40.0-49.9 (CMS/HCC); Essential hypertension; Hypothyroidism due to acquired atrophy of thyroid; Mixed hyperlipidemia; Multinodular goiter; Recurrent major depressive disorder, in full remission; Frail elderly; Gastroesophageal reflux disease without esophagitis; Mixed stress and urge urinary incontinence; Primary osteoarthritis of both knees; History of CVA (cerebrovascular accident) without residual deficits; History of seizure disorder; Type 2 diabetes mellitus with stage 3b chronic kidney disease, without long-term current use of insulin [place] 01/16/2025 Refill [facility] [address] [place] [address] December, MARINE BIOLOGIST Post-nasal drip 01/12/2025 Refill [facility] [address] [place] [address] Adrienne March, DO Degenerative spondylolisthesis; DDD (degenerative disc disease), lumbar 01/12/2025 Refill [facility] [address] [place] [address] December, MARINE BIOLOGIST Type 2 diabetes mellitus with diabetic polyneuropathy, with long-term current use of insulin [place] 01/12/2025 [facility] [address] [place] [address] Adrienne March, Epigastric pain 12/28/2024 [facility] [address] [place] [address] Adrienne March, Degenerative spondylolisthesis; DDD (degenerative disc disease), lumbar 12/26/2024 [facility] [address] [place] [address] Adrienne March, Degenerative spondylolisthesis; DDD (degenerative disc disease), lumbar from Last 3 Months Immunizations Immunization Administration Dates Next Due (ADACEL/BOOSTRIX)(10 YR UP) TDAP VACCINE, 0.5ML, IM 09/14/2024,06/12/2016,07/22/2015 (PACHECO) COVID-19 VACCINE - EMERGENCY USE AUTHORIZATION, [...] DOSE QUADRIVALENT 65 YR UP PF IM 08/25/2023,05/29/2021,05/07/2020 INFLUENZA VACCINE HIGH DOSE TRIVALENT SPLIT VIRUS, (65 YR UP), 0.5ML (PF), IM 06/05/2024 Influenza Seasonal Unspecifi ed Formulation IM 07/04/2022,07/21/2011,08/31/2000 Influenza Vaccine High Dose 65+ Yrs IM 0 05/21/2019,05/21/2019,05/31/2017,05/29,06/17/2015,06/11/2014 Influenza Vaccine Split 3+ Yrs IM 2012,06/13/2012,06/30/2010,07/15,07/19/2008 Influenza Vaccine Tri Adjuva nted 65+ PF IM 05/04/2019 Influenza Vaccine Tri Split 4+ Im 2012,06/13/2012,07/21/2011,06/30,07/15/2009,07/19/2008,08/31/2000 PREVNAR (PCV13) pneumococcal 13-valent conjugate Vaccine 10/24/2014 Pneumococcal Polysaccharide Vacc 23-francisco IM SCHIP 01/11/2017,06/30/2010 Family History Medical History Relation Name Comments Heart Attack Brother 1 Heart Disease Brother 1 Heart Attack Brother 2 Heart Disease Brother 2 Other Daughter 1 Diabetes Daughter 2 Kidney Disease Daughter 2 Hypertension Father Stroke Father Coronary Artery Disease Mother Heart Attack Mother Heart Disease Mother Hypertension Mother Heart Attack Sister 1 Hypertension Sister 2 Heart Disease Sister 3 Kidney Disease Sister 3 Healthy Sister 4 Other Son Relation Name Status Comments Brother 1 Brother 2 Daughter 1 Daughter 2 Father Maternal Grandfather Maternal Grandmother Mother Paternal Grandfather Paternal Grandmother Sister 1 Sister 2 Sister 3 Alive Sister 4 Alive Son Social History Tobacco Use Types Packs/Day Years Used Date Smoking Tobacco: Never Passive Smoke Exposure: Never Smokeless Tobacco: Never Tobacco Cessation:Counseling Given: No Alcohol Use Standard Drinks/Week Comments No 0 [...] on file Legal Sex Female 6:27 AM FOREIGN POLICY OFFICER Gender Identity Not on file Sexual Orientation Not on file Last Filed Vital Signs Vital Sign Reading Time Taken Comments Blood Pressure 130/66 03/13/2025 10:06 AM CDT Pulse 65 03/19/2025 10:33 AM CDT Temperature 36.4 C (97.5 F) 03/19/2025 10:33 AM CDT Respiratory Rate 18 03/19/2025 10:33 AM CDT Oxygen Saturation 91% 03/19/2025 10:33 AM CDT Inhaled Oxygen Concentration - - Weight 103 kg (227 lb) 03/19/2025 10:33 AM CDT Height 157.5 cm (5' 2 ) 03/19/2025 10:33 AM CDT Body Mass Index 41.52 03/19/2025 10:33 AM CDT Plan of Treatment Upcoming Encounters Date Type Department Care Team (Late st Contact Info) Description 05/15/2025 8:40 AM CDT Office Visit [facility] [address] [place] [phone] Adrienne March, DO [address] [place] [address] 07/25/2025 10:00 AM FOREIGN POLICY OFFICER Office Visit [facility] [address] [place] [address] Adrienne March, DO [address] [place] [address] Health Maintenance Due Date Last Done Comments ZOSTER VACCINE (1 of 2) 1997 OSTEOPOROSIS SCREENING 07/31/2020 5, 07/30/2015, 07/30/2015, Additional history exists RSV VACCINE (60+ or ) (1 - 1-dose 75+ series) 2022 COVID-19 Vaccine (2 - 2023-2 5 season) 2024 01/29/2021 Medicare Advantage ([place]) Preventative Visit/Annual Wellness Visit 09/20/2024 05/05/2024, 04/26/2023, 12/29/2021 LDL CHOLESTEROL ANNUAL 03/17/2025 4, 12/09/2023, 08/25/2023, Additional history exists DIABETES ANNUAL RETINAL EXAM 03/30/202507/2024, 06/04/2020, 06/04/2020, Additional history exists DIABETES HBA1C Q 6 MONTHS 04/04/20252024, 03/17/2024, 12/09/2023, Additional history exists INFLUENZA VACCINE (#1) 2025 , 08/25/2023, 08/06/2022, Additional history exists DIABETES ANNUAL FOOT EXAM 06/05/20252023, 03/30/2023, 12/29/2021, Additional history exists DIABETES MICROALBUMIN ANNUAL SCREEN 10/23/2025 10/23/2024, 12/09/2023, 08/25/2023, Additional history exists DTAP/TDAP/TD VACCINES (4 - T d or Tdap) 09/14/2034 09/14/2024, 06/12/2016, 07/22/2015, Additional history exists PNEUMOCOCCAL VACCINE 50+ YEARS Completed 0 01/11/2017, 01/11/2017, 10/24/2014, Additional history exists FIT-DNA Q 3 years Discontinued 05/17/2019 Colorectal Cancer Screening Discontinued FIT/FOBT Q 1 year Discontinued 03/31/2023, 08/01/2015 COLORECTAL SCREENING Discontinued Flex Sig/CT Colonography Q 5 years Discontinued Medical Devices Implanted Type Area Facilities Maintenance Assistant Device Identifier Shelf Expiration Date Model / Serial / Lot Cement Simplex Hvisc 6194-1-010 - [id number] Implanted:01/2020 by Marco A Lewis MD (Quantity not on file) Cement Left: Knee JAMSHID- [employer] INT INC [id number] 03/19/2021 6194-1-010 / / [id number] Cement Simplex Hvisc 6194-1-010 - [id number] Implanted:01/2020 by Marco A Lewis MD (Quantity not on file) Cement Left: Knee JAMSHID- [employer] [id number] 03/19/2021 6194-1-010 / / [id number] Hemostatic Surgifoam 1gm 1977 - [id number] Implanted:Qty : 1 on 06/21/2020 by Jan Hoffman MD Hemostatic N/A: Back J[employer]J- [employer] [id number] 10/26/20211977 / [id number] Comp Fem Attune Cr Cmnt Sz4 1504-00-104 - [id number] Implanted:Qty : 1 on 11/23/2019 by Marco A Lewis MD Knee Left: Knee J[employer]J- [employer] [id number] 09/19/2029 [id number] / / [id number] Comp Tib Attune Fb Cmnt Sz5 1506-70-005 - [id number] Implanted:Qty : 1 on 11/23/2019 by Marco A Lewis MD Knee Left: Knee J[employer]- [employer] [id number] 08/19/2029 [id number] / / [id number] Insert Attune Fb Cr Sz4 6mm 1516-20-406 - [id number] Implanted:Qty : 1 on 11/23/2019 by Marco A Lewis MD Knee Left: Knee [employer] [id number] 03/19/2023 [id number] / / [id number] Vince Solera Crv Ti 5.5x30mm [id number] - [id number] Implanted:Qty : 2 on 06/21/2020 by Jan Hoffman MD Vince N/A: Back [employer]- SOFAMOR DANEK 06/21/2021 [id number] / / [id number] Screw Cdh 6.5x35mm 5.5/6.0 Mas Cc [id number] - [id number] Implanted:Qty : 2 on 06/21/2020 by Jan Hoffman MD Screw N/A: Back [employer] 06/21/2021 [id number] / / [id number] Screw Cdh 6.5x45mm 5.5/6.0 Mas Cc [id number] - [id number] Implanted:Qty : 2 on 06/21/2020 by Jan Hoffman MD Screw N/A: Back [employer] 06/21/2021 [id number] / / [id number] Screw Solera 5.5/6.0 Breakoff [id number] - [id number] Implanted:Qty : 4 on 06/21/2020 by Jan Hoffman MD Screw N/A: Back [employer] 06/21/2021 [id number] / / [id number] Putty Dbx Dbm 1ml 31020 - [id number] Implanted:Qty : 1 on 06/21/2020 by Jan Hoffman MD Tissue N/A: Back MUSCULOSKELETAL TRANSPLANT FOU 07/21/2021 [id number] / [id number] Readigraft Canc Chips 15ml Can15 14bp - [id number] Implanted:Qty : 1 on 06/21/2020 by Jan Hoffman MD Tissue N/A: Back LIFENET 08/07/2024 CAN15 14BP / / [id number] Procedures Procedure Name Priority Date/Time Associated Diagnosis Comments CBC WITH DIFFERENTIAL Routine 03/19/2025 11:36 AM CDT Acute generalized abdominal pain Nausea and vomiting, unspecified vomiting type COMPREHENSIVE METABOLIC PANEL Routine 03/19/2025 11:36 AM CDT Acute generalized abdominal pain Nausea and vomiting, unspecified vomiting type LIPASE Routine 03/19/2025 11:36 AM CDT Acute generalized abdominal pain POC URINALYSIS DIPSTICK AUTOMATED Routine 03/19/2025 11:23 AM CDT UTI symptoms MICROALBUMIN/CREATININ E RATIO, RANDOM UR Routine 10/23/2024 5:02 PM FOREIGN POLICY OFFICER HEMOGLOBIN A1C Routine 10/05/2024 1:21 PM FOREIGN POLICY OFFICER Type 2 diabetes mellitus without complication, without long-term current use of insulin ([facility]) DIABETES EYE EXAM Routine 03/30/2024 10:35 AM CDT LIPID PANEL Routine 03/17/2024 2:16 PM CDT Type 2 diabetes mellitus with diabetic polyneuropathy, with long-term current use of insulin ([facility]) OCCULT BLOOD IMMUNOASSAY, COLORECTAL SCREEN Routine 03/31/2023 10:41 AM CDT DIABETES FOOT EXAM 12/23/2020 12:00 AM CDT COLON CANCER SCREEN, STOOL DNA Routine 05/17/2019 4:15 PM CDT XR DEXA BONE DENSITY AXIAL 1 OR MORE SITES Routine 07/30/2015 1:58 PM FOREIGN POLICY OFFICER Postmenopausal atrophic vaginitis from Last 3 Months or Most Recently Relevant to Health Maintenance Results * CBC WITH DIFFERENTIAL (03/19/2025 11:36 AM CDT) Pathologist [facility] WBC TNP [place] [facility] Comment: TEST NOT PERFORMED No lavender-top tube received. Test Performed at: [facility] [address] [facility] [place] [address] Isabel Colby MD Blood 03/19/2025 11:3 6 AM CDT 03/20/2025 3:24 AM CDT December [facility] HEMATOLOGY ORDERABLES Final Resu lt [facility] [phone] [facility] [place] [address] * LIPASE (03/19/2025 11:36 AM CDT) [facility] LIPASE 24 7 - 60 U/L [email or web address] Comment: Test Performed at: [facility] [address] Isabel Colby MD Blood 03/19/2025 11:3 6 AM CDT 03/20/2025 3:24 AM CDT December [facility] CHEMISTRY ORDERABLES Final Resul t [facility] [phone] [facility] [place] [address] * (ABNORMAL) COMPREHENSIVE METABOLIC PANEL (03/19/2025 11:36 AM CDT) [facility] GLUCOSE 122(H) 65 - 99 mg/dL [email or web address] Comment: Fasting reference interval For someone [...] [facility] Comment: Test Performed at: [facility] [address] [place] [address] Isabel Colby MD Blood 03/19/2025 11:3 6 AM CDT 03/20/2025 3:24 AM CDT December MARINE BIOLOGIST CHEMISTRY ORDERABLES Final Resul t [facility] [phone] [facility] [address] [facility] [place] [address] * (ABNORMAL) POC URINALYSIS DIPSTICK AUTOMATED (03/19/2025 11:23 AM CDT) COLOR UA POC Yellow Pale to Dark Yellow [facility] CLARITY UA POC Clear Clear, Other [facility] GLUCOSE UA POC Negative Negative, Normal [facility] BILIRUBIN UA POC Negative Negative [facility] KETONES UA POC Negative Negative [facility] SPECIFIC GRAVITY UA POC 1.010 1.000 - 1.030 [facility] BLOOD UA POC Negative Negative [facility] LINIC [facility] PH UA POC 5.5 5.0 - 8.0 [facility] PROTEIN UA POC Negative Negative [facility] UROBILINOGEN UA POC 0.2 <2.0 mg/dL [facility] NITRITE UA POC Negative Negative [facility] LEUKOCYTE ESTERASE UA POC Trace(A) Negative [facility] KIT LOT NUMBER POC [phone] [facility] KIT EXP DATE POC [id number] [facility] Urine 03/19/2025 11:2 3 AM CDT December MARINE BIOLOGIST POINT OF CARE TESTING Final Resu lt [facility] CLIA# [id number] [facility] [place] [address] * (ABNORMAL) MICROALBUMIN/CREATININE RATIO, RANDOM UR (10/23/2024 5:02 PM FOREIGN POLICY OFFICER) Creatinine, Urine 60 20 - 275 mg/dL [facility] MICROALBUMIN, URINE 2.0 See Note: mg/dL [facility] Comment: Reference Range: Reference Range Not established MICROALBUMIN/CREAT RATIO, UR 33(H) <30 mg/g creat [facility] Comment: The ADA defines abnormalities in albumin excretion as follows: Albuminuria Category Result (mg/g creatinine) Normal to Mildly increased <30 Moderately increased 30-299 Severely increased > OR = 300 The ADA recommends that at least two of three specimens collected within a 3-6 month period be abnormal before considering a patient to be within a diagnostic category. Test Performed at: [facility] [address] [place] [address] [place] [address] Isabel Colby MD Urine URINE SPECIMEN OBTAINED BY CLEAN CATCH PROCEDURE / Unknown 10/23/2024 5:02 PM FOREIGN POLICY OFFICER 10/24/2024 2:46 AM FOREIGN POLICY OFFICER Mirella Wilson [facility] URINE ORDERABLES Final Result [facility] [phone] [facility] [address] * (ABNORMAL) HEMOGLOBIN A1C (10/05/2024 1:21 PM FOREIGN POLICY OFFICER) HEMOGLOBIN A1C 8.6(H) <5.7 % of total Hgb [facility] Comment: For someone without known diabetes, a hemoglobin A1c value of 6.5% or greater indicates that they may have diabetes and this should be confirmed with a follow-up test. For someone with known diabetes, a value <7% indicates that their diabetes is well controlled and a value greater than or equal to 7% indicates suboptimal control. A1c targets should be individualized based on duration of diabetes, age, comorbid conditions, and other considerations. Currently, no consensus exists regarding use of hemoglobin A1c for diagnosis of diabetes for children. ESTIMATED AVERAGE GLUCOSE (MG/DL) 200 mg/dL [facility] ESTIMATED AVERAGE GLUCOSE (MMOL/L) 11.1 mmol/L [facility] Comment: FASTING:UNKNOWN FASTING: UNKNOWN Test Performed at: [facility] [address] [facility] [place] [address] Isabel Colby MD Blood 10/05/2024 1:21 PM FOREIGN POLICY OFFICER 10/05/2024 1:22 PM FOREIGN POLICY OFFICER December Wilson MARINE BIOLOGIST CHEMISTRY ORDERABLES Final Resul t [facility] [phone] [facility] [address] [address] * (ABNORMAL) DIABETES EYE EXAM (03/30/2024 10:35 AM CDT) Abstract Provider HEALTH MAINTENANCE Edited Resu lt - Final * LIPID PANEL (03/17/2024 2:16 PM CDT) [facility] CHOLESTEROL 172 <200 mg/dL [facility] HDL 56 > OR = 50 mg/dL [facility] TRIGLYCERIDE 104 <150 mg/dL [facility] LDL CALCULATED 96 mg/dL (calc) [facility] Comment: Reference range: <100 Desirable range <100 mg/dL for primary prevention; <70 mg/dL for patients with CHD or diabetic patients with > or = 2 CHD risk factors. LDL-C is now calculated using the Vimal-Patel calculation, which is a validated novel method providing better accuracy than the Friedewald equation in the estimation of LDL-C. Vimla SS et al. NATALIIA. 2013;310(19): 9088-8105 (http://education.SnoopWall/faq/VPY535) CHOL/HDL RATIO 3.1 <5.0 (calc) [facility] NON-HDL CHOLESTEROL 116 <130 mg/dL (calc) [facility] Comment: For patients with diabetes plus 1 major ASCVD risk factor, treating to a non-HDL-C goal of <100 mg/dL (LDL-C of <70 mg/dL) is considered a therapeutic option. Test Performed at: [facility] [address] [address] Isabel Colby MD Blood 03/17/2024 2:16 PM CDT 03/18/2024 4:23 AM CDT Adrienne March DO CHEMISTRY ORDERABLES Final Result [facility] [phone] [facility] [address] [address] * OCCULT BLOOD IMMUNOASSAY, COLORECTAL SCREEN (03/31/2023 10:41 AM CDT) Stool STOOL SPECIMEN / Unknown us Abstract Provider BODY FLUIDS AND STOOLS Final R esult * HM DIABETES FOOT EXAM (12/23/2020 12:00 AM CDT) Adrienne March DO HEALTH MAINTENANCE Edited R esult - Final * COLON CANCER SCREEN, STOOL DNA (05/17/2019 4:15 PM CDT) COLOGUARD RESULT Negative Not Applicable 05/24/2019 3:08 PM CDT [facility] Comment: A negative result indicates a low [...] screened with both Cologuard and colonoscopy. (Linette Hess et al, N Engl J Med 2014;370(14):2782-3543) COLOGUARD RE-SCREENING RECOMMENDATION: Periodic routine colorectal cancer screening is an important part of preventive healthcare for asymptomatic persons at average risk for colorectal cancer. Following a negative Cologuard result, the Swedish Cancer Society and U.S. Multi-Society Task Force screening guidelines recommend a Cologuard re-screening interval of 3 years. References: Swedish Cancer Society (ACS). Colorectal cancer prevention and early detection. [place], [place]: [place] Cancer Society; [updated 2015Jan 11]. https://www.cancer.org/cancer/nbybp-vnqdnd-ywbxnb/urktdebcj-snmlwhpxa-ciuhgvj/ac s-rec ommendations.html. Accessed May 20, 2018; Héctor DK, Marleny JURADO, Cruzito BRADLEY, Colorectal Cancer Screening: Recommendations for Physicians and Patients from the U.S. Multi-Society Task Force on Colorectal Cancer Screening, Am J Gastroenterology 2017; 112:9546-0884. Test Type: Composite algorithmic analysis of stool [...] can be accessed at the following location: www.[employer]/results. Additional description of the Cologuard test process, warnings and precautions can be found at www.cologuardtest.com. Rx Only. Stool STOOL SPECIMEN / Unknown 05/17/2019 4:15 PM CDT 05/18/2019 11:04 PM CDT us Adrienne March DO BODY FLUIDS AND STOOLS Rosetta terrazas Result [facility] CLIA # [id number] [address], [address] [place] [address] * XR DEXA BONE DENSITY AXIAL 1 OR MORE SITES (07/30/2015 1:58 PM FOREIGN POLICY OFFICER) Anatomical Region Laterality Modality Other Narrative 07/31/2015 8:08 AM FOREIGN POLICY OFFICER PROCEDURE DEXA BONE DENSITY, 30 July 2015 [...] change Procedure Note Christian Rivas MD - 02/05/2022 PROCEDURE DEXA BONE DENSITY, 30 July 2015 [...] bone mineral density, with minimal interval change us Deanne ERICP DIAGNOSTIC IMAGING ORDERABLES Final Result from Last 3 Months or Most Recently Relevant to Health Maintenance Insurance [place]ID [place] [facility] DUAL ADVANTAGE HMO DSNP * Guarantor: MARY MATIAS Account Type Relation to Patient Date of Phone Billing Address Personal/Family [address] [address] [place] [address] RX WEAVER PLANS (INTERNAL) [facility] Medicare Part D Advance Directives For more information, please contact: [phone] * Full Code (Latest Code Status on File) Date Activated Date Inactivated Comments 07/20/2024 3:46 AM 07/24/2024 6:49 PM Care Teams Tennis Centre Manager Relationship Specialty Start Date End Date Adrienne March DO [address] [place] [address] PCP - General Family Practice 06/30/10
--- OUTSIDE RECORDS SUMMARY | 2025-03-21 13:53 | XMS_ITS | Encounter Summary ---
Author Organization [facility] Address [address] [place] [address] Care Team Providers Care Welcome Wagon Host/Hostess Name Role Phone Adrienne March DO Primary Care Provider Encounter Details Date Type Department Care Team (Latest Contact Info) Description 09/24/1997 Outpatient Historical [facility] Umang Urrutia MD [address] [place] [address] Other chronic nonalcoholic liver disease (Primary Dx); Other nonspecific abnormal serum enzyme levels; Sprain of neck; Enthesopathy of ankle and tarsus, unspecified Social History Tobacco Use Types Packs/Day Years Used Date Smoking Tobacco: Never Assessed Comments Unknown Sex and Gender Information Value Date Recorded Sex Assigned at Not on file Legal Sex Female 3:34 AM SUPERINTENDENT STATIONS Gender Identity Not on file Sexual Orientation Not on file documented as of this encounter Plan of Treatment Not on file documented as of this encounter Visit Diagnoses Diagnosis Other chronic nonalcoholic liver disease- Primary Other nonspecific abnormal serum enzyme levels Sprain of neck Neck sprain and strain Enthesopathy of ankle and tarsus, unspecified documented in this encounter Care Teams Welcome Wagon Host/Hostess Relationship Specialty Start Date End Date Adrienne March DO [address] [place] [address] PCP - General Family Practice 06/30/10 documented as of this encounter
--- OUTSIDE RECORDS SUMMARY | 2025-03-21 13:53 | XMS_ITS | Encounter Summary ---
Author Organization [facility] Address [address] Segaln: [place] [address] Care Team Providers Care Latex Fashions Designer Name Role Phone Adrienne March DO Primary Care Provider +1- [phone] Encounter Details Date Type Department Care Team (Late st Contact Info) Description 05/31/2001 Outpatient Historical Umang Urrutia MD [address] [place] [address] Social History Tobacco Use Types Packs/Day Years Used Date Smoking Tobacco: Never Assessed Comments Unknown Sex and Gender Information Value Date Recorded Sex Assigned at Not on file Legal Sex Female 3:34 AM ALPACA FARMER Gender Identity Not on file Sexual Orientation Not on file documented as of this encounter Plan of Treatment Not on file documented as of this encounter Visit Diagnoses Not on filedocumented in this encounter Care Teams Latex Fashions Designer Relationship Specialty Start Date End Date Adrienne March DO [address] [place] [address] PCP - General Family Practice 06/30/10 documented as of this encounter
--- OUTSIDE RECORDS SUMMARY | 2025-03-21 13:53 | XMS_ITS | Encounter Summary ---
Author Organization [facility] Address [address] [facility] [address] Segaln: [place] [address] Care Team Providers Care Development Executive Name Role Phone Adrienne March DO Primary Care Provider +1- [phone] Encounter Details Date Type Department Care Team (Late st Contact Info) Description 08/31/2000 Outpatient Historical Umang Urrutia MD [address] [place] [phone] Social History Tobacco Use Types Packs/Day Years Used Date Smoking Tobacco: Never Assessed Comments Unknown Sex and Gender Information Value Date Recorded Sex Assigned at Not on file Legal Sex Female 3:34 AM RETAIL SALES TEAMMATE Gender Identity Not on file Sexual Orientation Not on file documented as of this encounter Plan of Treatment Not on file documented as of this encounter Visit Diagnoses Not on filedocumented in this encounter Care Teams Development Executive Relationship Specialty Start Date End Date Adrienne March DO [address] [place] [address] PCP - General Family Practice 06/30/10 documented as of this encounter
--- OUTSIDE RECORDS SUMMARY | 2025-03-21 13:53 | XMS_ITS | Encounter Summary ---
Author Organization [facility] Address [address] [place] [address] Care Team Providers Care Drapery Inspector Name Role Phone Adrienne March DO Primary Care Provider Encounter Details Date Type Department Care Team (Late st Contact Info) Description 12/20/2000 Outpatient Historical [facility] Internal Medicine- [address] [place] [address] Umang Urrutia MD [address] [place] [address] Calcaneal spur (Primary Dx) Social History Tobacco Use Types Packs/Day Years Used Date Smoking Tobacco: Never Assessed Comments Unknown Sex and Gender Information Value Date Recorded Sex Assigned at Not on file Legal Sex Female 3:34 AM MEDICAL HOUSEKEEPER Gender Identity Not on file Sexual Orientation Not on file documented as of this encounter Plan of Treatment Not on file documented as of this encounter Visit Diagnoses Diagnosis Calcaneal spur- Primary documented in this encounter Care Teams Drapery Inspector Relationship Specialty Start Date End Date Adrienne March DO [address] [place] [address] PCP - General Family Practice 06/30/10 documented as of this encounter
--- OUTSIDE RECORDS SUMMARY | 2025-03-21 13:53 | XMS_ITS | Encounter Summary ---
Author Organization [facility] Address [address] [place] [address] Care Team Providers Care Door Furring Installer Name Role Phone Adrienne March DO Primary Care Provider Encounter Details Date Type Department Care Team (Late st Contact Info) Description 02/28/1999 Outpatient Historical [facility] INTER[facility] MED Umang Urrutia MD [address] [place] [phone] Brachial neuritis or radiculitis NOS (Primary Dx); Adhesive capsulit shlder; Adjustment disorder with anxiety Social History Tobacco Use Types Packs/Day Years Used Date Smoking Tobacco: Never Assessed Comments Unknown Sex and Gender Information Value Date Recorded Sex Assigned at Not on file Legal Sex Female 3:34 AM STRIPPING CUTTER AND WINDER Gender Identity Not on file Sexual Orientation Not on file documented as of this encounter Plan of Treatment Not on file documented as of this encounter Visit Diagnoses Diagnosis Brachial neuritis or radiculitis NOS- Primary Brachial neuritis or radiculitis nos Adhesive capsulit shlder Adhesive capsulitis of shoulder Adjustment disorder with anxiety documented in this encounter Care Teams Door Furring Installer Relationship Specialty Start Date End Date Adrinene March DO [address] [place] [phone] PCP - General Family Practice 06/30/10 documented as of this encounter
--- OUTSIDE RECORDS SUMMARY | 2025-03-21 13:53 | XMS_ITS | Encounter Summary ---
Author Organization [facility] Address [address] [place] [address] Care Team Providers Care Barbering Instructor Name Role Phone Adrienne March DO Primary Care Provider Encounter Details Date Type Department Care Team (Latest Contact Info) Description 09/25/1998 Outpatient Historical [facility] INTER[facility] MED Umang Urrutia MD [address] [place] [phone] Displacement of intervertebral disc, site unspecified, without myelopathy (Primary Dx); Adhesive capsulit shlder Social History Tobacco Use Types Packs/Day Years Used Date Smoking Tobacco: Never Assessed Comments Unknown Sex and Gender Information Value Date Recorded Sex Assigned at Not on file Legal Sex Female 3:34 AM LEAD SOFTWARE ARCHITECT Gender Identity Not on file Sexual Orientation Not on file documented as of this encounter Plan of Treatment Not on file documented as of this encounter Visit Diagnoses Diagnosis Displacement of intervertebral disc, site unspecified, without myelopathy- Primary Adhesive capsulit shlder Adhesive capsulitis of shoulder documented in this encounter Care Teams Barbering Instructor Relationship Specialty Start Date End Date Adrienne March DO [address] [place] [address] PCP - General Family Practice 06/30/10 documented as of this encounter
--- OUTSIDE RECORDS SUMMARY | 2025-03-21 13:53 | XMS_ITS | Encounter Summary ---
Author Organization [facility] Address [address] [place]: [place] [address] Care Team Providers Care Crew Mess Attendant Name Role Phone Adrienne March DO Primary Care Provider +1- [phone] Encounter Details Date Type Department Care Team (Late st Contact Info) Description 09/26/1999 Outpatient Historical Umang Urrutia MD [address] [place] [address] Social History Tobacco Use Types Packs/Day Years Used Date Smoking Tobacco: Never Assessed Comments Unknown Sex and Gender Information Value Date Recorded Sex Assigned at Not on file Legal Sex Female 3:34 AM CENSUS CLERK Gender Identity Not on file Sexual Orientation Not on file documented as of this encounter Plan of Treatment Not on file documented as of this encounter Visit Diagnoses Not on filedocumented in this encounter Care Teams Crew Mess Attendant Relationship Specialty Start Date End Date Adrienne March DO [address] [place] [address] PCP - General Family Practice 06/30/10 documented as of this encounter
--- OUTSIDE RECORDS SUMMARY | 2025-03-21 13:53 | XMS_ITS | Encounter Summary ---
Author Organization [facility] Address [address] [place] [address] Care Team Providers Care Web Editor Name Role Phone Adrienne March Primary Care Provider [phone] Encounter Details Date Type Department Care Team (Late st Contact Info) Description 10/20/2017 Ancillary Orders [facility] [address] [place] [address] Deanne Banks, [facility] [address], [place] [phone] Fall (on)(from) incline, initial encounter; Acute bilateral low back pain without sciatica Social History Tobacco Use Types Packs/Day Years [...] on file Legal Sex Female 3:34 AM DROP FORGER Gender Identity Not on file Sexual Orientation Not on file Occupation Industry Job Start Date Job End Date Disabled Not on file Not on file Not on file Not on file Not on file Not on file Not on file documented as of this encounter Plan of Treatment Not on file documented as of this encounter Results * XR LUMBAR SPINE 2 OR 3 VW (10/20/2017 5:18 PM DROP FORGER) Anatomical Region Laterality Modality Spine Computed Radiogr aphy 10/20/2017 5:19 PM DROP FORGER Impressions 10/21/2017 10:00 AM DROP FORGER IMPRESSION: Please see below. Exam: XR LUMBAR SPINE 2 OR 3 VW Date/Time of Exam: 10/20/2017 5:18 PM Reason For Exam: Fall (on)(from) incline, initial encounter,Acute bilateral low back pain without sciatica. Comparison: None. FINDINGS: Frontal, lateral and lumbosacral projections show normal alignment in the sagittal plane. Moderate grade chronic spondylolisthesis L5-S1 with severe disc degeneration. Moderate diffuse distal thoracic and lumbar disc degeneration and spondylosis. Moderate facet and interspinous arthropathy. Mild grade age-indeterminate L1 compression deformity. Narrative Procedure Note Samuel Hu DO - 10/21/2017 IMPRESSION: Please see below. Exam: XR LUMBAR SPINE 2 OR 3 VW Date/Time of Exam: 10/20/2017 5:18 PM Reason For Exam: Fall (on)(from) incline, initial encounter,Acute bilateral low back pain without sciatica. Comparison: None. FINDINGS: Frontal, lateral and lumbosacral projections show normal alignment in the sagittal plane. Moderate grade chronic spondylolisthesis L5-S1 with severe disc degeneration. Moderate diffuse distal thoracic and lumbar disc degeneration and spondylosis. Moderate facet and interspinous arthropathy. Mild grade age-indeterminate L1 compression deformity. us Deanne Banks BLOWER BLAST FURNACE DIAGNOSTIC IMAGING ORDERABLES Final Result documented in this encounter Visit Diagnoses Diagnosis Fall (on)(from) incline, initial encounter Acute bilateral low back pain without sciatica Fall (on)(from) incline, initial encounter Acute bilateral low back pain without sciatica documented in this encounter Additional Health Concerns Assessment Noted Time PHQ-9 Depression Total Score: 3 06/11/20 14 9:00 AM CDT documented as of this encounter Care Teams Web Editor Relationship Specialty Start Date End Date Adrienne March DO [address] [place] [address] PCP - General Family Practice 06/30/10 documented as of this encounter
--- OUTSIDE RECORDS SUMMARY | 2025-03-21 13:53 | XMS_ITS | Encounter Summary ---
Author Organization [facility] Address [address] [place] [address] Care Team Providers Care Document Imaging Specialist Name Role Phone Adrienne March DO Primary Care Provider [phone]- [phone] Encounter Details Date Type Department Care Team (Latest Contact Info) Description 03/28/2001 Outpatient [facility] Podiat[facility] [place] [address] [place] [phone] Abel Hurtado, DPM NO ADDRESS ON FILE Calcaneal spur (Primary Dx) Social History Tobacco Use Types Packs/Day Years Used Date Smoking Tobacco: Never Assessed Comments Unknown Sex and Gender Information Value Date Recorded Sex Assigned at Not on file Legal Sex Female 3:34 AM PHYSICIAN PRACTICE MANAGER Gender Identity Not on file Sexual Orientation Not on file documented as of this encounter Plan of Treatment Not on file documented as of this encounter Visit Diagnoses Diagnosis Calcaneal spur- Primary documented in this encounter Care Teams Document Imaging Specialist Relationship Specialty Start Date End Date Adrienne March DO [address] [place] [address] PCP - General Family Practice 06/30/10 documented as of this encounter
--- OUTSIDE RECORDS SUMMARY | 2025-03-21 13:53 | XMS_ITS | Encounter Summary ---
Author Organization [facility] Address [address] [place] [address] Care Team Providers Care Serging Machine Operator Automatic Name Role Phone Adrienne March DO Primary Care Provider Encounter Details Date Type Department Care Team (Late st Contact Info) Description 09/27/1998 Outpatient Historical [facility] INTER[facility] MED Umang Urrutia MD [address] [place] [address] Cervical disc displacmnt (Primary Dx); Encounter for long-term (current) use of other medications; Sprain rotator cuff Social History Tobacco Use Types Packs/Day Years Used Date Smoking Tobacco: Never Assessed Comments Unknown Sex and Gender Information Value Date Recorded Sex Assigned at Not on file Legal Sex Female 3:34 AM COMPOSITION FLOOR SETTER Gender Identity Not on file Sexual Orientation Not on file documented as of this encounter Plan of Treatment Not on file documented as of this encounter Visit Diagnoses Diagnosis Cervical disc displacmnt- Primary Displacement of cervical intervertebral disc without myelopathy Encounter for long-term (current) use of other medications Sprain rotator cuff Rotator cuff (capsule) sprain documented in this encounter Care Teams Serging Machine Operator Automatic Relationship Specialty Start Date End Date Adrienne March DO [address] [place] [address] PCP - General Family Practice 06/30/10 documented as of this encounter
--- OUTSIDE RECORDS SUMMARY | 2025-03-21 13:53 | XMS_ITS | Encounter Summary ---
Author Organization [facility] Address [address] [place] [address] Care Team Providers Care Warble Saw Operator Name Role Phone Adrienne March DO Primary Care Provider Encounter Details Date Type Department Care Team (Latest Contact Info) Description 02/21/2001 Outpatient [facility] Podiatry[facility] [place] [address] [place] [address] Abel Hurtado, MARCE NO ADDRESS ON FILE Calcaneal spur (Primary Dx); Tenosynovitis of foot and ankle; Pain in limb Social History Tobacco Use Types Packs/Day Years Used Date Smoking Tobacco: Never Assessed Comments Unknown Sex and Gender Information Value Date Recorded Sex Assigned at Not on file Legal Sex Female 3:34 AM FOOD GENERAL MANAGER Gender Identity Not on file Sexual Orientation Not on file documented as of this encounter Plan of Treatment Not on file documented as of this encounter Visit Diagnoses Diagnosis Calcaneal spur- Primary Tenosynovitis of foot and ankle Pain in limb Pain in soft tissues of limb documented in this encounter Care Teams Warble Saw Operator Relationship Specialty Start Date End Date Adrienne Mrach DO [address] [place] [address] PCP - General Family Practice 06/30/10 documented as of this encounter
--- OUTSIDE RECORDS SUMMARY | 2025-03-21 13:53 | XMS_ITS | Encounter Summary ---
Author Organization [facility] Address [address] [place] [address] Care Team Providers Care Operations Supervisor Name Role Phone Adrienne March DO Primary Care Provider +1- [phone] Encounter Details Date Type Department Care Team (Latest Contact Info) Description 06/24/2001 Outpatient Historical [facility] Dipak Malagon MD NO ADDRESS ON FILE Carpal tunnel syndrome (Primary Dx) Social History Tobacco Use Types Packs/Day Years Used Date Smoking Tobacco: Never Assessed Comments Unknown Sex and Gender Information Value Date Recorded Sex Assigned at Not on file Legal Sex Female 3:34 AM MATRIX DRIER TENDER Gender Identity Not on file Sexual Orientation Not on file documented as of this encounter Plan of Treatment Not on file documented as of this encounter Visit Diagnoses Diagnosis Carpal tunnel syndrome- Primary documented in this encounter Care Teams Operations Supervisor Relationship Specialty Start Date End Date Adrienne March DO [address] [place] [address] PCP - General Family Practice 06/30/10 documented as of this encounter
--- OUTSIDE RECORDS SUMMARY | 2025-03-21 13:53 | XMS_ITS | Encounter Summary ---
Author Organization [facility] Address [address] [place] [address] Care Team Providers Care Vulcanizer Name Role Phone Adrienne March DO Primary Care Provider +1- [phone] Encounter Details Date Type Department Care Team (Latest Contact Info) Description 05/30/[address] [facility] [place] [address] [place] [phone] Abel Hurtado, DPM NO ADDRESS ON FILE Pain in limb (Primary Dx); Calcaneal spur Social History Tobacco Use Types Packs/Day Years Used Date Smoking Tobacco: Never Assessed Comments Unknown Sex and Gender Information Value Date Recorded Sex Assigned at Not on file Legal Sex Female 3:34 AM TECHNICAL APPLICATIONS SCIENTIST Gender Identity Not on file Sexual Orientation Not on file documented as of this encounter Plan of Treatment Not on file documented as of this encounter Visit Diagnoses Diagnosis Pain in limb- Primary Pain in soft tissues of limb Calcaneal spur documented in this encounter Care Teams Vulcanizer Relationship Specialty Start Date End Date Adrienne March DO [address] [place] [address] PCP - General Family Practice 06/30/10 documented as of this encounter
--- OUTSIDE RECORDS SUMMARY | 2025-03-21 13:53 | XMS_ITS | Encounter Summary ---
Author Organization [facility] Address [address] [place] [address] Care Team Providers Care Director Of Perioperative Services Name Role Phone Adrienne March DO Primary Care Provider Encounter Details Date Type Department Care Team (Latest Contact Info) Description 01/27/2001 Outpatient [facility] [place] [address] [place] [address] Abel Hurtado, MARCE NO ADDRESS ON FILE Calcaneal spur (Primary Dx); Tenosynovitis of foot and ankle; Cellulitis and abscess of foot, except toes; Pain in limb Social History Tobacco Use Types Packs/Day Years Used Date Smoking Tobacco: Never Assessed Comments Unknown Sex and Gender Information Value Date Recorded Sex Assigned at Not on file 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
--- OUTSIDE RECORDS SUMMARY | 2025-03-21 13:53 | XMS_ITS | Encounter Summary ---
Author Organization [facility] Address [address] Segaln: [place] [address] Care Team Providers Care Director Business Management Name Role Phone Adrienne March DO Primary Care Provider +1- [phone] Encounter Details Date Type Department Care Team (Late st Contact Info) Description 12/31/1999 Outpatient Historical Umang Urrutia MD [address] [place] [id number] Social History Tobacco Use Types Packs/Day Years Used Date Smoking Tobacco: Never Assessed Comments Unknown Sex and Gender Information Value Date Recorded Sex Assigned at Not on file Legal Sex Female 3:34 AM LEGAL SUPPORT ANALYST Gender Identity Not on file Sexual Orientation Not on file documented as of this encounter Plan of Treatment Not on file documented as of this encounter Visit Diagnoses Not on filedocumented in this encounter Care Teams Director Business Management Relationship Specialty Start Date End Date Adrienne March DO [address] [place] [address] PCP - General Family Practice 06/30/10 documented as of this encounter
--- OUTSIDE RECORDS SUMMARY | 2025-03-21 13:53 | XMS_ITS | Encounter Summary ---
Author Organization [facility] Address [address] 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
--- OUTSIDE RECORDS SUMMARY | 2025-03-21 13:53 | XMS_ITS | Encounter Summary ---
Author Organization [facility] Address [address] [place] [address] Care Team Providers Care Rn Field Case Manager Name Role Phone Adrienne March DO Primary Care Provider [phone] Encounter Details Date Type Department Care Team (Late st Contact Info) Description 04/16/1999 Outpatient Historical [facility] Neurology [address] [place] [phone] Lukas Vang MD [address] [place] [address] Pain in limb (Primary Dx) Social History Tobacco Use Types Packs/Day Years Used Date Smoking Tobacco: Never Assessed Comments Unknown Sex and Gender Information Value Date Recorded Sex Assigned at Not on file 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
--- OUTSIDE RECORDS SUMMARY | 2025-03-21 13:53 | XMS_ITS | Encounter Summary ---
Author Organization [facility] Address [address] [place] [address] Care Team Providers Care Sheet Metal Insulator Name Role Phone Adrienne March DO Primary Care Provider [phone] Encounter Details Date Type Department Care Team (Latest Contact Info) Description 06/09/2000 Outpatient Historical [facility] [address] [address] Alexei Elizabeth MD [address] [place] [address] Lipoma of unspecified site (Primary Dx); Cardiomegaly; Edema Social History Tobacco Use Types Packs/Day Years Used Date Smoking Tobacco: Never Assessed Comments Unknown Sex and Gender Information Value Date Recorded Sex Assigned at Not on file 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
--- OUTSIDE RECORDS SUMMARY | 2025-03-21 13:53 | XMS_ITS | Encounter Summary ---
Author Organization [facility] Address [address] [place] [address] Care Team Providers Care Shingle Cutter Name Role Phone Adrienne March DO Primary Care Provider Encounter Details Date Type Department Care Team (Late st Contact Info) Description 04/26/1998 Outpatient [facility] [address] [phone] Flor Belcher MD NO ADDRESS ON FILE Other screening mammogram (Primary Dx) Social History Tobacco Use Types Packs/Day Years Used Date Smoking Tobacco: Never Assessed Comments Unknown Sex and Gender Information Value Date Recorded Sex Assigned at Not on file 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
--- OUTSIDE RECORDS SUMMARY | 2025-03-21 13:53 | XMS_ITS | Encounter Summary ---
Author Organization [facility] Address [address] [place] [address] Care Team Providers Care Semiautomatic Stitcher Operator Name Role Phone Adrienne March DO Primary Care Provider +1- [phone] Encounter Details Date Type Department Care Team (Latest Contact Info) Description 12/04/1998 Outpatient Historical [facility] Umang Urrutia MD [address] [place] [phone] Cervical spinal stenosis (Primary Dx); Issue of medical certificates Social History Tobacco Use Types Packs/Day Years Used Date Smoking Tobacco: Never Assessed Comments Unknown Sex and Gender Information Value Date Recorded Sex Assigned at Not on file Legal Sex Female 3:34 AM CARDIAC CATH TECH Gender Identity Not on file Sexual Orientation Not on file documented as of this encounter Plan of Treatment Not on file documented as of this encounter Visit Diagnoses Diagnosis Cervical spinal stenosis- Primary Spinal stenosis in cervical region Issue of medical certificates documented in this encounter Care Teams Semiautomatic Stitcher Operator Relationship Specialty Start Date End Date Adrienne March DO [address] [place] [address] PCP - General Family Practice 06/30/10 documented as of this encounter
--- OUTSIDE RECORDS SUMMARY | 2025-03-21 13:53 | XMS_ITS | Encounter Summary ---
Author Organization [facility] Address [address] [place] [address] Care Team Providers Care Social Welfare Research Worker Name Role Phone Adrienne March DO Primary Care Provider Encounter Details Date Type Department Care Team (Late st Contact Info) Description 07/09/1998 Outpatient Historical [facility] Umang Urrutia MD [address] [place] [phone] Need vaccination-viral disease (Primary Dx) Social History Tobacco Use Types Packs/Day Years Used Date Smoking Tobacco: Never Assessed Comments Unknown Sex and Gender Information Value Date Recorded Sex Assigned at Not on file Legal Sex Female 3:34 AM DIRECTOR TRADING Gender Identity Not on file Sexual Orientation Not on file documented as of this encounter Plan of Treatment Not on file documented as of this encounter Visit Diagnoses Diagnosis Need vaccination-viral disease- Primary Need for prophylactic vaccination and inoculation against other viral diseases documented in this encounter Care Teams Social Welfare Research Worker Relationship Specialty Start Date End Date Adrienne March DO [address] [place] [address] PCP - General Family Practice 06/30/10 documented as of this encounter
--- OUTSIDE RECORDS SUMMARY | 2025-03-21 13:53 | XMS_ITS | Encounter Summary ---
Author Organization [facility] Address [address] [place] [address] Care Team Providers Care Cut Off Saw Operator Pipe Blanks Name Role Phone Adrienne March DO Primary Care Provider +1- [phone] Encounter Details Date Type Department Care Team (Latest Contact Info) Description 03/28/1999 Outpatient Historical [facility] Umang Urrutia MD [address] [place] [address] Cervical disc displacmnt (Primary Dx); Other and unspecified accidental fall; Paroxysmal supraventricular tachycardia; Hematuria; Encounter for long-term (current) use of other medications; Other and unspecified hyperlipidemia Social History Tobacco Use Types Packs/Day Years Used Date Smoking Tobacco: Never Assessed Comments Unknown Sex and Gender Information Value Date Recorded Sex Assigned at Not on file Legal Sex Female 3:34 AM BLEMISH REMOVER Gender Identity Not on file Sexual Orientation Not on file documented as of this encounter Plan of Treatment Not on file documented as of this encounter Visit Diagnoses Diagnosis Cervical disc displacmnt- Primary Displacement of cervical intervertebral disc without myelopathy Other and unspecified accidental fall Paroxysmal supraventricular tachycardia Hematuria Encounter for long-term (current) use of other medications Other and unspecified hyperlipidemia documented in this encounter Care Teams Cut Off Saw Operator Pipe Blanks Relationship Specialty Start Date End Date Adrienne March DO [address] [place] [address] PCP - General Family Practice 06/30/10 documented as of this encounter
--- OUTSIDE RECORDS SUMMARY | 2025-03-21 13:53 | XMS_ITS | Encounter Summary ---
Author Organization [facility] Address [address] [place] [address] Care Team Providers Care Corpsman Name Role Phone Adrienne March DO Primary Care Provider [phone] Encounter Details Date Type Department Care Team (Latest Contact Info) Description 04/25/2001 Outpatient [facility] [address] [place] [address] Abel Hurtado, DPM NO ADDRESS ON FILE Exostosis of unspecified site (Primary Dx) Social History Tobacco Use Types Packs/Day Years Used Date Smoking Tobacco: Never Assessed Comments Unknown Sex and Gender Information Value Date Recorded Sex Assigned at Not on file Legal Sex Female 3:34 AM COMMUNITY HEALTH CONSULTANT Gender Identity Not on file Sexual Orientation Not on file documented as of this encounter Plan of Treatment Not on file documented as of this encounter Visit Diagnoses Diagnosis Exostosis of unspecified site- Primary documented in this encounter Care Teams Corpsman Relationship Specialty Start Date End Date Adrienne March DO [address] [place] [phone] PCP - General Family Practice 06/30/10 documented as of this encounter
--- OUTSIDE RECORDS SUMMARY | 2025-03-21 13:53 | XMS_ITS | Encounter Summary ---
Author Organization [facility] Address [address] [place] [address] Care Team Providers Care Drainage Inspector Name Role Phone Adrienne March DO Primary Care Provider Encounter Details Date Type Department Care Team (Late st Contact Info) Description 01/29/1999 Outpatient Historical [facility] Umang Urrutia MD [address] [place] [address] Adhesive capsulit shlder (Primary Dx); Cervical spinal stenosis; Encounter for long-term (current) use of other medications Social History Tobacco Use Types Packs/Day Years Used Date Smoking Tobacco: Never Assessed Comments Unknown Sex and Gender Information Value Date Recorded Sex Assigned at Not on file Legal Sex Female 3:34 AM 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
--- NOTE | 2025-03-21 13:56 | W.ED.SOB ---
HPI - SOB/Dyspnea General: Chief Complaint: Shortness of Breath/Dyspnea Stated Complaint: SOB, CHF Time Seen by Provider: 03/21/25 13:40 Source: patient and EMS Mode of arrival: EMS Limitations: no limitations History of Present Illness: HPI Narrative: 79-year-old female with history of congestive heart failure states she wears 2 L oxygen at baseline states she has had some increasing leg swelling along with shortness of breath. She states she feels like she is retaining fluid she is on Lasix at home. Patient's pulse ox here is 94% on her 2 L. Associated symptoms: Deny abdominal pain, chest pain, fever(s), nausea or vomiting Related Data Home Medications ?Medication ?Instructions ?Recorded ?Confirmed cetirizine 10 mg tablet (Zyrtec) 10 mg PO DAILY PRN Allergy Symptoms 11/13/19 12/12/24 desvenlafaxine succinate 50 mg 50 mg PO DAILY 11/13/19 12/12/24 tablet,extended release 24 hr (Pristiq) esomeprazole magnesium 20 mg 20 mg PO DAILY 11/13/19 12/12/24 capsule,delayed release (Nexium) fluticasone propionate 50 1 spray intranasal DAILY PRN 11/13/19 12/12/24 mcg/actuation nasal allergies spray,suspension gabapentin 300 mg capsule 300 mg PO TID 11/13/19 12/12/24 oxycodone-acetaminophen 10 mg-325 1 tab PO Q4H PRN Pain 11/13/19 12/12/24 mg tablet (Percocet) phenytoin sodium extended 100 mg 300 mg PO BID 11/13/19 12/12/24 capsule (Dilantin Extended) ergocalciferol (vitamin D2) 1,250 1,250 mcg PO Q7D 09/14/21 12/12/24 mcg (50,000 unit) capsule (Vitamin D2) potassium chloride 20 mEq 20 meq PO DAILY 09/14/21 12/12/24 tablet,extended release apixaban 5 mg tablet (Eliquis) 5 mg PO BID 08/08/24 12/12/24 dulaglutide 1.5 mg/0.5 mL 0.5 mg SUBCUT Q7D 08/08/24 12/12/24 subcutaneous pen injector ([facility]) levothyroxine 125 mcg tablet 125 mcg PO DAILY 08/08/24 12/12/24 metformin 500 mg tablet 500 mg PO BID 08/08/24 12/12/24 azelastine 137 mcg (0.1 %) nasal 2 spray intranasal BID 08/21/24 12/12/24 spray furosemide 40 mg tablet 40 mg PO DAILY 08/21/24 12/12/24 metoprolol succinate 25 mg 25 mg PO DAILY 08/21/24 12/12/24 tablet,extended release 24 hr aspirin 81 mg tablet,delayed 81 mg PO DAILY 12/12/24 12/12/24 release Previous Rx's ?Medication ?Instructions ?Recorded atorvastatin 40 mg tablet 40 mg PO DAILY #30 tabs 08/07/24 Allergies Allergy/AdvReac Type Severity Reaction Status Date / Time adhesive tape Allergy Unknown Verified 10/03/24 11:15 silver sulfadiazine (From Allergy ALGY-Rash Verified 10/03/24 11:15 Silvadene) Review of Systems Const: Denies: fever(s), chills, body aches or change in appetite ENMT: Denies: throat pain or dental pain Card: Denies: chest pain Resp: Reports: dyspnea GI: Denies: abdominal pain, nausea, vomiting or diarrhea Musc: Reports: extremity swelling; Denies: neck pain or back pain Skin/Breast: Denies: rash Neuro: Denies: headache(s) PFSH ED PFSH: Medical History Chronic anticoagulation Diabetes Hypoxia Diastolic heart failure Exertional dyspnea COPD (chronic obstructive pulmonary disease) Seizure disorder Mild aortic stenosis Obesity Diabetes 1.5, managed as type 2 Hyperlipidemia HTN (hypertension) Hypothyroidism CVA (cerebral vascular accident) Surgical History Previous back surgery S/P hysterectomy Family History Father Stroke Hypertension Mother Hypertension CAD (coronary artery disease) Myocardial infarction Sister Hypertension CAD (coronary artery disease) Myocardial infarction Brother CAD (coronary artery disease) Myocardial infarction Denies family history of Colon cancer Pancreatic cancer Ovarian cancer Thyroid cancer Diabetes Breast cancer Cancer Uterine cancer Social History Smoking and tobacco/nicotine status: never used tobacco/nicotine Household members: spouse Marital status: Physical Exam Const: COMMON NORMALS: no acute distress, patient oriented x3 and healthy appearing HENMT: COMMON NORMALS: normocephalic and atraumatic HEAD & SCALP: normocephalic and atraumatic Eye: COMMON NORMALS: conjunctivae normal CONJUNCTIVA: Yes conjunctivae normal Neck/C-Spine: COMMON NORMALS: full ROM and supple Chest: COMMONS NORMALS: normal inspection of the chest Resp: COMMON NORMALS: normal respiratory effort, No retractions, No use of accessory muscles and clear to auscultation bilaterally AUSCULTATION: clear to auscultation bilaterally Cardio: COMMON NORMALS: regular rate, regular rhythm and No murmurs present (Cardio) RATE: regular rate RHYTHM: regular rhythm GI: COMMON NORMALS: Normal to inspection, nondistended, normoactive bowel sounds present, Soft to palpation, non-tender and no masses PALPATION: Yes Soft to palpation Extremity: COMMON NORMALS: full ROM NARRATIVE EXTREMITY EXAM: 2+ edema to LE Neuro: COMMON NORMALS: patient oriented x3, moves all extremities and no focal motor deficits Psych: COMMON NORMALS: mental status grossly normal, Normal thought process present and cooperative THOUGHT PROCESS: Normal thought process present Skin: COMMON NORMALS: no rashes or lesions noted and no wounds GENERAL SKIN EXAM: no rashes or lesions noted Course Vital Signs: Vital signs: Vital Signs Temperature 98.1 F 03/21/25 13:47 Pulse Rate 75 03/21/25 16:47 Respiratory Rate 18 03/21/25 13:47 Blood Pressure 151/92 03/21/25 16:47 Pulse Oximetry 94 03/21/25 16:47 Oxygen Delivery Me thod Nasal Cannula 03/21/25 14:33 Oxygen Flow Rate 2 03/21/25 14:33 MDM - SOB/Dyspnea Medical Decision Making Patient presents for shortness of breath likely from her CHF she has no signs of pulmonary edema she is at her baseline oxygen did give her dose of Lasix here she is feeling improved she stable for discharge follow-up with PCP return if worsening. Medical Records I reviewed the patient's medical records. Lab Data I reviewed the patient's lab results. 03/21/25 14:37 03/21/25 15:14 Labs/Radiology: Radiology Impressions Chest X-Ray 03/21/25 13:40 IMPRESSION: Cardiomegaly with pulmonary venous hypertension. Blunting of the right costophrenic angle. Stable compared to the examination of 12/13/2024. Laboratory Results WBC 12.10 10^3/uL (3.29-11.43) H 03/21/25 14:37 RBC 4.23 10^6/uL (3.85-5.65) 03/21/25 14:37 Hgb 12.30 g/dL (11.27-16.99) 03/21/25 14:37 Hct 40.5 % (36-47) 03/21/25 14:37 MCV 95.7 fl (85-98) 03/21/25 14:37 MCH 29.1 pg (27-33) 03/21/25 14:37 MCHC 30.4 g/dL (30-55) 03/21/25 14:37 RDW 12.5 % (12.1-15.1) 03/21/25 14:37 Plt Count 275 10^3/cmm (157-399) 03/21/25 14:37 MPV 8.8 fL (7.4-10.4) 03/21/25 14:37 Neut % (Auto) 68.7 % 03/21/25 14:37 Lymph % (Auto) 16.9 % 03/21/25 14:37 [place] % (Auto) 10.7 % 03/21/25 14:37 Eos % (Auto) 2.9 % 03/21/25 14:37 Baso % (Auto) 0.5 % 03/21/25 14:37 Neut # (Auto) 8.32 10^3/uL (1.8-7.7) H 03/21/25 14:37 Lymph # (Auto) 2.0 10^3/uL (0.8-4.8) 03/21/25 14:37 [place] # (Auto) 1.3 10^3/uL (0.2-0.9) H 03/21/25 14:37 Eos # (Auto) 0.4 10^3/uL (0.0-0.8) 03/21/25 14:37 Baso # (Auto) 0.1 10^3/uL (0.0-0.1) 03/21/25 14:37 Nucleated RBC % (auto) 0 % 03/21/25 14:37 Nucleated RBCs # 0.0 /100WBC 03/21/25 14:37 PT 14.60 SECONDS (12.1-14.9) 03/21/25 14:37 INR 1.07 (0.8-1.2) 03/21/25 14:37 Sodium 137 mmol/L (136-145) 03/21/25 15:14 Potassium 4.0 mmol/L (3.5-5.1) 03/21/25 15:14 Chloride 94 mmol/L (98-107) L 03/21/25 15:14 Carbon Dioxide 33 mmol/L (22-29) H 03/21/25 15:14 Anion Gap 14.0 (5-19) 03/21/25 15:14 BUN 37 mg/dL (8-23) H 03/21/25 15:14 Creatinine 1.3 mg/dL (0.5-0.9) H 03/21/25 15:14 GFR Calculation Not Reportable 03/21/25 15:14 Glucose 154 mg/dL (65-115) H 03/21/25 15:14 Calculated Osmolality 296 mOsm/kg (285-295) H 03/21/25 15:14 Calcium 8.4 mg/dL (8.5-10.5) L 03/21/25 15:14 Total Bilirubin 0.2 mg/dL (0.15-1.2) 03/21/25 15:14 AST 15 U/L (0-32) 03/21/25 15:14 ALT 12 U/L (0-33) 03/21/25 15:14 Alkaline Phosphatase 158 U/L (35-105) H 03/21/25 15:14 NT-Pro-B Natriuret Pep 2503 pg/mL (0-450) H 03/21/25 15:14 Total Protein 7.7 g/dL (6.6-8.7) 03/21/25 15:14 Albumin 3.4 g/dL (3.5-5.2) L 03/21/25 15:14 Globulin 4.3 g/dL (1.3-4.6) 03/21/25 15:14 All radiology interpretation(s) finalized by discharge Discharge Plan Discharge Patient Disposition: Home Clinical Impression: Congestive heart failure Condition: Stable Prescriptions: No Action phenytoin sodium extended [Dilantin Extended] 100 mg capsule 300 mg PO BID fluticasone propionate 50 mcg/actuation spray,suspension 1 spray INTRANASAL DAILY PRN (Reason: allergies) gabapentin 300 mg capsule 300 mg PO TID esomeprazole magnesium [Nexium] 20 mg capsule,delayed release(DR/EC) 20 mg PO DAILY oxycodone-acetaminophen [Percocet] 10-325 mg tablet 1 tab PO Q4H PRN (Reason: Pain) desvenlafaxine succinate [Pristiq] 50 mg tablet extended release 24 hr 50 mg PO DAILY cetirizine [Zyrtec] 10 mg tablet 10 mg PO DAILY PRN (Reason: Allergy Symptoms) ergocalciferol (vitamin D2) [Vitamin D2] 1,250 mcg (50,000 unit) Capsule 1,250 mcg PO Q7D Rx Instructions: ON WEDNESDAYS potassium chloride 20 mEq Tablet Extended Release 20 meq PO DAILY metformin 500 mg tablet 500 mg PO BID Eliquis 5 mg tablet 5 mg PO BID levothyroxine 125 mcg tablet 125 mcg PO DAILY Trulicity 1.5 mg/0.5 mL pen injector 0.5 mg SUBCUT Q7D aspirin 81 mg Tablet,Delayed Release (Dr/Ec) 81 mg PO DAILY atorvastatin 40 mg tablet 40 mg PO DAILY Qty: 30 0RF furosemide 40 mg tablet 40 mg PO DAILY metoprolol succinate 25 mg tablet extended release 24 hr 25 mg PO DAILY azelastine 137 mcg (0.1 %) spray,non-aerosol 2 spray INTRANASAL BID Discharge Orders: Discharge ED (Routine); Ordered 03/21/25 Ordered By: Sofía Ferreira Referrals: Adrienne March DO [Primary Care Provider, Family Practice] - 4-7 days Discharge Diet: Advance as tolerated Discharge Activity: Resume usual activity Patient Instructions: Opioid Safety, Pain Management, Patient Portal & Porfirio Instructions Print Language: Chadian Coding Level of Care Code ED Water Control Station Engineer for Valentin Mace
[2025-03-21 13:59] VITALS: BP 143/80; PULSE 59
[2025-03-21] MEDS: FUROsemide 10 mg/mL SDV 10mL 60 MG IVP (14:32)
[2025-03-21 14:33] VITALS: BP 117/53; PULSE 69; O2SAT 93
[2025-03-21 14:45] LABS: Hematocrit 40.5 % (36-47); Hemoglobin 12.30 g/dL (11.27-16.99); Mean Corpuscular HGB Conc 30.4 g/dL (30-55); Mean Corpuscular Hemoglobin 29.1 pg (27-33); Mean Corpuscular Volume 95.7 fl (85-98); Nucleated Red Blood Cells % 0 %; Platelet Count 275 10^3/cmm (157-399); Red Blood Count 4.23 10^6/uL (3.85-5.65); White Blood Count 12.10 10^3/uL (3.29-11.43)
[2025-03-21 15:03] LABS: INR 1.07 (0.8-1.2); Prothrombin Time 14.60 SECONDS (12.1-14.9)
--- NOTE | 2025-03-21 15:10 | PC.NURSE ---
PT HAD URINARY INCONTINENCE EPISODE, BED CHANGED, PT CLEANED UP; CLEAN DEPENDS PROVIDED
[2025-03-21 15:47] LABS: Alanine Aminotransferase 12 U/L (0-33); Albumin Level 3.4 g/dL (3.5-5.2); Alkaline Phosphatase 158 U/L (35-105); Anion Gap 14.0 (5-19); Aspartate Amino Transferase 15 U/L (0-32); Blood Urea Nitrogen 37 mg/dL (8-23); Calcium 8.4 mg/dL (8.5-10.5); Carbon Dioxide 33 mmol/L (22-29); Chloride 94 mmol/L (98-107); Creatinine Clr Calc Pharmacy 40.2421; Globulin 4.3 g/dL (1.3-4.6); Glucose 154 mg/dL (65-115); NT Pro B Type Natriuretic Pept 2503 pg/mL (0-450); Osmolality Calculated 296 mOsm/kg (285-295); Potassium 4.0 mmol/L (3.5-5.1); Sodium 137 mmol/L (136-145); Total Protein 7.7 g/dL (6.6-8.7)
[2025-03-21 15:54] VITALS: BP 126/55; PULSE 62; O2SAT 98
[2025-03-21 16:47] VITALS: BP 151/92; PULSE 75; O2SAT 94
== END 2025-03-21 17:16 | disposition home or self-care (01) ==
PROVIDERS: Emergency Provider Emergency Medicine; PCP Family Medicine
DX: I50.30 Unspecified diastolic (congestive) heart failure (principal); J44.9 Chronic obstructive pulmonary disease, unspecified; I11.0 Hypertensive heart disease with heart failure; E78.5 Hyperlipidemia, unspecified; Z86.73 Personal history of transient ischemic attack (TIA), and cerebral infarction without residual deficits; E13.8 Other specified diabetes mellitus with unspecified complications; Z79.01 Long term (current) use of anticoagulants; Z79.82 Long term (current) use of aspirin
CPT/HCPCS: 36415; 71045; 80053; 83880; 85025; 85610; 93005; 96374; 99285; J1938

== ENCOUNTER 2025-03-25 13:32 | Emergency (ER) | payer MEDICARE, SELFPAY ==
--- OUTSIDE RECORDS SUMMARY | 2025-03-19 11:40 | XMS_ITS | Encounter Summary ---
Author Organization [facility] Address 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 GERD (gastroesophageal reflux disease) Hyperlipemia Hypertension Hypertriglyceridemia Uncontolled, noncompliant with medications or lifestyle changes. 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 flash glucose sensor (FreeStyle Ailin 2 Sensor) Kit Use to monitor glucose continuously. Replace sensor every 14 days. fluticasone propionate (FLONASE) 50 mcg/spray Sterling, Suspension nasal inhaler 1 Sterling, Both Nostrils, TWO TIMES DAILY, shake before using furosemide (LASIX) 40 mg, Oral, DAILY gabapentin (NEURONTIN) 300 mg, Oral, THREE TIMES DAILY lancets (G3Touch Delica Plus Lancet) 33 gauge USE TO TEST BLOOD SUGAR TWICE DAILY AND NEEDED. levothyroxine (SYNTHROID) 137 mcg, Oral, DAILY EARLY metFORMIN (GLUCOPHAGE) 500 mg, Oral, TWO TIMES DAILY metoprolol succinate (TOPROL XL) 25 mg Extended Release 24 hour tablet TAKE THREE TABLETS BY MOUTH EVERY 12 hours mupirocin (BACTROBAN) 2 % Ointment Topical, DAILY naloxone (NARCAN) 4 mg/spray Sterling, Non-Aerosol EMERGENCY USE ONLY: Administer 1 spray (4 mg) in one nostril one time. May repeat in alternating nostrils every 2-3 min until responsive or EMS arrives. Tinubu Squareuch Ultra Test Strip TEST 1 TIME DAILY [...] HX SURGICAL OTHER Right Vince in Femur PA ARTHRODESIS POSTERIOR/PSTLAT TQ 1NTRSPC LUMBAR N/A 06/21/2020 LUMBAR SPINAL FUSION performed by Jan Hoffman MD at [facility] OR PA ARTHRP KNE CONDYLE&PLATU MEDIAL&LAT COMPARTMENTS Left 11/23/2019 KNEE ARTHROPLASTY TOTAL REPLACEMENT performed by Marco A Lewis MD at [facility] OR Past social, family, and medical history [...] MiraLAX daily to manage her constipation. AGNES Waldron The author of this note, patient (or authorized civil rights representative), and all other persons present consent to the audio recording of this visit for charting documentation purposes. This note was automatically generated, edited by a Quality Matcher, and finalized by MIYA Waldron. documented in this encounter Plan of Treatment Upcoming Encounters Date Type Department Care Team (Late st Contact Info) Description 03/29/2025 10:40 AM CDT Office Visit [facility] [address] [place] [address] Mirella Wilson FNP [address] [place] [address] 05/15/2025 8:40 AM CDT Office Visit [facility] [address] [place] [address] Adrienne March, DO [address] [place] [address] 07/25/2025 10:00 AM EXPLOSIVE ORDNANCE DISPOSAL TECHNICIAN Office Visit [facility] [address] [place] [facility] [address] Adrienne March, DO [address] [facility] [place] [address] Scheduled Orders Name Type Priority Associated Diagnoses Orde r Schedule POC URINALYSIS DIPSTICK AUTOMATED Point of Care Testing Routine UTI symptoms Ordered: 03/19/2025 documented as of this encounter Procedures Procedure Name Priority Date/Time Associated Diagnosis Comments CBC WITH DIFFERENTIAL Routine 03/19/2025 11:36 AM CDT Acute generalized abdominal pain Nausea and vomiting, unspecified vomiting type LIPASE Routine 03/19/2025 11:36 AM CDT Acute generalized abdominal pain COMPREHENSIVE METABOLIC PANEL Routine 03/19/2025 11:36 AM CDT Acute generalized abdominal pain Nausea and vomiting, unspecified vomiting type URINE CULTURE Routine 03/19/2025 11:30 AM CDT UTI symptoms POC URINALYSIS DIPSTICK AUTOMATED Routine 03/19/2025 11:23 AM CDT UTI symptoms documented in this encounter Results * LIPASE (03/19/2025 11:36 AM CDT) LIPASE 24 7 - 60 U/L [facility] Comment: Test Performed at: [facility] [address] [place] [address] Isabel Colby MD Blood 03/19/2025 11:3 6 AM CDT 03/20/2025 3:24 AM CDT December HHA CHEMISTRY ORDERABLES Final Resul t [facility] [phone] [facility] [id number] [place] [phone] * (ABNORMAL) COMPREHENSIVE METABOLIC PANEL (03/19/2025 11:36 [...] [facility] Comment: Test Performed at: [facility] [address] [place] [address] Isabel Colby MD Blood 03/19/2025 11:3 6 AM CDT 03/20/2025 3:24 AM CDT December HHA CHEMISTRY ORDERABLES Final Resul t [facility] [phone] [facility] [address] [place] [phone] * CBC WITH DIFFERENTIAL (03/19/2025 11:36 AM CDT) WBC TNP Thousand/u L [facility] Comment: TEST NOT PERFORMED No lavender-top tube received. Test Performed at: [facility] [address] [facility] [place] [address] Isabel Colby MD Blood 03/19/2025 11:3 6 AM CDT 03/20/2025 3:24 AM CDT December HHA HEMATOLOGY ORDERABLES Final Resu lt [facility] [phone] [facility] [address] [facility] [place] [address] * (ABNORMAL) URINE CULTURE (03/19/2025 11:30 AM CDT) URINE CULTURE SEE NOTE(A) [facility] Comment: CULTURE, URINE, ROUTINE Micro Number: [id number] Test Status: Final Specimen Source: Urine, clean catch Specimen Quality: Adequate Result: Greater than 100,000 CFU/mL of Escherichia coli E.coli INT EMILIANA AMOX/CLAVULANATE S 4 AMP/SULBACTAM I 16 CEFAZOLIN NR <=4 2 CEFEPIME S <=0.12 CEFTAZIDIME S <=1 CEFTRIAXONE S <=0.25 CIPROFLOXACIN R >=4 GENTAMICIN S <=1 IMIPENEM S <=0.25 LEVOFLOXACIN R >=8 MEROPENEM S <=0.25 NITROFURANTOIN S <=16 PIP/TAZOBACTAM S 8 TRIMETHOPRIM/SULFA R >=320 S = Susceptible I = Intermediate R = Resistant NS = Not susceptible SDD = Susceptible Dose Dependent * = Not Tested NR = Not Reported NN = See Therapy Comments THERAPY COMMENTS Note 1: For infections other than uncomplicated UTI caused by E. coli, K. pneumoniae or P. mirabilis: Cefazolin is resistant if EMILIANA > or = 8 mcg/mL. (Distinguishing susceptible versus intermediate for isolates with EMILIANA < or = 4 mcg/mL requires additional testing.) Note 2: For uncomplicated UTI caused by E. coli, K. pneumoniae or P. mirabilis: Cefazolin is susceptible if EMILIANA <32 mcg/mL and predicts susceptible to the oral agents cefaclor, cefdinir, cefpodoxime, cefprozil, cefuroxime, cephalexin and loracarbef. Test Performed at: [facility] [address] [place] [address] Isabel Colby MD Urine URINE SPECIMEN OBTAINED BY CLEAN CATCH PROCEDURE / Unknown 03/19/2025 11:30 AM CDT 03/20/2025 5:06 AM CDT December Wilson HHA MICROBIOLOGY - GENERAL ORDERABLE S Final Result [facility] [phone] [facility] [address] [facility] [place] [address] * (ABNORMAL) POC URINALYSIS DIPSTICK AUTOMATED (03/19/2025 11:23 AM CDT) COLOR UA POC Yellow Pale to Dark Yellow [facility] CLARITY UA POC Clear Clear, Other ME [facility] GLUCOSE UA POC Negative Negative, Normal [facility] BILIRUBIN UA POC Negative Negative [facility] KETONES UA POC Negative Negative [facility] SPECIFIC GRAVITY UA POC 1.010 1.000 - 1.030 [facility] BLOOD UA POC Negative Negative [facility] PH UA POC 5.5 5.0 - 8.0 [facility] IC [facility] PROTEIN UA POC Negative Negative [facility] UROBILINOGEN UA POC 0.2 <2.0 mg/dL [facility] NITRITE UA POC Negative Negative [facility] LEUKOCYTE ESTERASE UA POC Trace(A) Negative [facility] KIT LOT NUMBER POC [phone] [facility] KIT EXP DATE POC [phone] [facility] Urine 03/19/2025 11:2 3 AM CDT December HHA POINT OF CARE TESTING Final Resu lt [facility] CLIA# [id number] [address] [place] [address] documented in this encounter Visit Diagnoses Diagnosis Acute generalized abdominal pain- Primary Abdominal pain, generalized Nausea and vomiting, unspecified vomiting type UTI symptoms Drug-induced constipation Other constipation documented in this encounter Care Teams Equipment Operat0R Relationship Specialty Start Date End Date Adrienne March DO [address] [place] [address] PCP - General Family Practice 06/30/10 documented as of this encounter
--- OUTSIDE RECORDS SUMMARY | 2025-03-22 14:00 | XMS_ITS | Encounter Summary ---
Author Organization [facility] Address [address] [place] [address] Care Team Providers Care Pasta Press Operator Name Role Phone Adrienne March DO Primary Care Provider Reason for Referral * Sleep (Routine) - Open Specialty Diagnoses / Procedures Referred By Amparo zimmerman Referred To Contact Diagnoses Hypersomnia Snoring Procedures HOME SLEEP STUDY UNATTENDED Mirella Wilson FNP [address] [place] [address] Phone: tel: fax: Referral ID Status Reason Start Date Expiration Date Visits Re quested Visits Authorized [id number] Open 03/22/2025 04/22/2026 1 1 Reason for Visit * Reason Comments ER Follow Up MONIQUE Peraza 03/21 Encounter Details Date Type Department Care Team (Late st Contact Info) Description 03/22/2025 2:00 PM CDT Office Visit [facility] [place] [address] [place] [address] Mirella Wilson FNP [address] [place] [address] Hypersomnia (Primary Dx); Snoring; Fluid retention Social History Tobacco Use Types Packs/Day Years [...] on file Legal Sex Female 6:27 AM POULTRY SLAUGHTERER Gender Identity Not on file Sexual Orientation Not on file documented as of this encounter Last Filed Vital Signs Vital Sign Reading Time Taken Comments Blood Pressure 124/68 03/22/2025 1:46 PM CDT Pulse 75 03/22/2025 1:46 PM CDT Temperature 36.5 C (97.7 F) 03/22/2025 1:46 PM CDT Respiratory Rate 18 03/22/2025 1:46 PM CDT Oxygen Saturation 97% 03/22/2025 1:46 PM CDT Inhaled Oxygen Concentration - - Weight 103 kg (227 lb) 03/22/2025 1:46 PM CDT Height 157.5 cm (5' 2 ) 03/22/2025 1:46 PM CDT Body Mass Index 41.52 03/22/2025 1:46 PM CDT documented in this encounter Progress Notes * Katie, December, ELECTRICIAN HELPER - 03/22/2025 1:54 PM CDT Chief Complaint Patient presents with Chronic Conditions Coordination Hospital Follow Up MONIQUE Peraza 03/21 History of Present Illness The patient is a 79-year-old female who presents to the clinic for a ER follow- up. She sought emergency care on 03/21/2025 due to severe shortness of breath, which was so intense that it impeded her ability to speak. Upon arrival at the hospital, she underwent a chest x-ray and blood work, both of which returned normal results. She was administered nitroglycerin sublingually during transport, which significantly improved her condition. She was also given a 60 mg injection of Lasix, despite her daily intake of diuretics. Today, her respiratory function has improved. She has been experiencing excessive daytime sleepiness and has been informed by her that she snores. She has been adhering to her prescribed diuretic regimen and has reduced her fluid intake. She was previously on Bumexbut was switched to Lasix, although the reason for this change is unclear to her.Her gastrointestinal symptoms have since resolved. 10 point review of systems is otherwise negative except as mentioned above. Past Medical History: Diagnosis Date Arthritis COPD (chronic obstructive pulmonary disease) ([facility]) Depression with anxiety Diabetes mellitus type II, uncontrolled Uncontolled, noncompliant with medications or lifestyle changes. GERD (gastroesophageal reflux disease) Hyperlipemia Hypertension Hypertriglyceridemia Uncontolled, noncompliant with medications or lifestyle changes. 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 dulaglutide (TRULICITY) 3 mg, subCUT, EVERY 7 DAYS ergocalciferol (VITAMIN D2) 50,000 Units, Oral, EVERY 21 DAYS esomeprazole (NexIUM) 20 mg Capsule, Delayed Release(E.C.) TAKE 1 CAPSULE BY MOUTH DAILY BEFORE BREAKFAST flash glucose scanning reader (FreeStyle Ailin 2 [place]) [facility] Use to monitor glucose continuously. flash glucose sensor (FreeStyle Ailin 2 Sensor) Kit Use to monitor glucose continuously. Replace sensor every 14 days. fluticasone propionate (FLONASE) 50 mcg/spray [place], Suspension nasal inhaler 1 [place], Both Nostrils, TWO TIMES DAILY, shake before using furosemide (LASIX) 40 mg, Oral, DAILY gabapentin (NEURONTIN) 300 mg, Oral, THREE TIMES DAILY lancets (Stalkthis Delica Plus Lancet) 33 gauge USE TO TEST BLOOD SUGAR TWICE DAILY AND NEEDED. levothyroxine (SYNTHROID) 137 mcg, Oral, DAILY EARLY metFORMIN (GLUCOPHAGE) 500 mg, Oral, TWO TIMES DAILY metoprolol succinate (TOPROL XL) 25 mg Extended Release 24 hour tablet TAKE THREE TABLETS BY MOUTH EVERY 12 hours mupirocin (BACTROBAN) 2 % Ointment Topical, DAILY naloxone (NARCAN) 4 mg/spray [place], Non-Aerosol EMERGENCY USE ONLY: Administer 1 spray (4 mg) in one nostril one time. May repeat in alternating nostrils every 2-3 min until responsive or EMS arrives. nitrofurantoin (MACROBID) 100 mg capsule 100 mg, Oral, TWO TIMES DAILY ondansetron (ZOFRAN ODT) 4 mg, Oral, EVERY 8 HOURS PRN, Dissolve tablet on top of tongue, then swallow with saliva. Stalkthis Ultra Test Strip TEST 1 TIME DAILY [...] HX SURGICAL OTHER Right Vince in Femur CA ARTHRODESIS POSTERIOR/PSTLAT TQ 1NTRSPC LUMBAR N/A 06/21/2020 LUMBAR SPINAL FUSION performed by Jan Hoffman MD at [facility] OR CA ARTHRP KNE CONDYLE&PLATU MEDIAL&LAT COMPARTMENTS Left 11/23/2019 KNEE ARTHROPLASTY TOTAL REPLACEMENT performed by Marco A Lewis MD at [facility] OR Past social, family, and medical history reviewed. BP 124/68 Pulse 75 Temp 97.7 ??F (36.5 ??C) Resp 18 Ht 5' 2 (1.575 m) Wt 103 kg (227 lb) SpO2 97% BMI 41.52 kg/m?? Physical Exam Physical Exam Constitutional: Appearance: Normal appearance. HENT: Head: Normocephalic. Right Ear: External ear normal. Left Ear: External ear normal. Eyes: Conjunctiva/sclera: Conjunctivae normal. Cardiovascular: Rate and Rhythm: Normal rate and regular rhythm. Pulses: Normal pulses. Heart sounds: Normal heart sounds. Pulmonary: Effort: Pulmonary effort is normal. Breath sounds: Normal breath sounds. Abdominal: General: Bowel sounds are normal. Palpations: Abdomen is soft. Musculoskeletal: General: Normal range of motion. Cervical back: Neck supple. Right lower le+ Edema present. Left lower le+ Edema present. Skin: General: Skin is warm. Neurological: General: No focal deficit present. Mental Status: She is alert. Psychiatric: Mood and Affect: Mood normal. Behavior: Behavior normal. Assessment & Plan 1. Hypersomnia (Primary) - A home sleep study will be ordered to evaluate for potential sleep apnea. - HOME SLEEP STUDY UNATTENDED; Future 2. Snoring - HOME SLEEP STUDY UNATTENDED; Future 3. Fluid retention - Transition back to Bumex, with a prescription for 2 mg, to be taken as 1 to 2 tablets daily. Dosage will be adjusted based on the severity of edema and dyspnea. - bumetanide (BUMEX) 2 mg tablet; Take 1 to 2 tablets daily. Dispense: 90 Tablet; Refill: 1 Follow-up - Follow-up appointment scheduled for next week. AGNES Waldron The author of this note, patient (or authorized circulation representative), and all other persons present consent to the audio recording of this visit for charting documentation purposes. This note was automatically generated, edited by a Quality Seo Strategist, and finalized by MIYA Waldron. documented in this encounter Plan of Treatment Upcoming Encounters Date Type Department Care Team (Late st Contact Info) Description 03/29/2025 10:40 AM CDT Office Visit [facility] [address] [place] [address] Mirella Wilson FNP [address] [place] [address] 05/15/2025 8:40 AM CDT Office Visit [facility] [address] [place] [address] Adrienne March, DO [address] [place] [address] 07/25/2025 10:00 AM POULTRY SLAUGHTERER Office Visit [facility] [address] [place] [address] Adrienne March, DO [address] [place] [address] Scheduled Orders Name Type Priority Associated Diagnoses Orde r Schedule HOME SLEEP STUDY UNATTENDED Sleep Center Routine Hypersomnia Snoring 1 Occurrences starting 03/22/2025 until 03/22/2026 documented as of this encounter Visit Diagnoses Diagnosis Hypersomnia- Primary Hypersomnia, unspecified Snoring Other dyspnea and respiratory abnormality Fluid retention Other fluid overload documented in this encounter Care Teams Pasta Press Operator Relationship Specialty Start Date End Date Adrienne March DO [address] [place] [id number] PCP - General Family Practice 06/30/10 documented as of this encounter
[2025-03-25 13:37] VITALS: BP 103/58; PULSE 58; RESP 20; TEMP 36.4; O2SAT 95; BMI 44.8
--- NOTE | 2025-03-25 13:40 | XRR_ITS ---
PROCEDURE INFORMATION: Exam: XR Chest Exam date and time: 03/25/2025 2:04 PM Age: 79 years old Clinical indication: Shortness of breath; SOB; Copd exacerbation TECHNIQUE: Imaging protocol: Radiologic exam of the chest. Views: 1 view. COMPARISON: CR XR chest 1V portable [id number] 03/21/2025 1:53 PM FINDINGS: Lungs: Unremarkable. No consolidation. Pleural spaces: Unchanged blunting of the right costophrenic angle that may reflect trace pleural fluid or pleural thickening. No left pleural effusion. No pneumothorax. Heart/Mediastinum: Unchanged cardiomegaly. Bones/joints: No acute abnormality. Postoperative changes in the cervical spine. XR/XR chest 1V portable [id number] IMPRESSION: No acute findings. Unchanged exam.
--- OUTSIDE RECORDS SUMMARY | 2025-03-25 13:40 | XMS_ITS | Encounter Summary ---
Author Organization [facility] Address [address] [place] [address] Care Team Providers Care Balance Wheel Arm Burnisher Name Role Phone Adrienne March DO Primary Care Provider Encounter Details Date Type Department Care Team (Latest Contact Info) Description 04/21/2003 Outpatient Historical [facility] Physical Therapy [address] [place] [phone] Wilfredo Michel MD [address] [phone] CERVICALGIA (Primary Dx) Social History Tobacco Use Types Packs/Day Years Used Date Smoking Tobacco: Never Assessed Comments Unknown Sex and Gender Information Value Date Recorded Sex Assigned at Not on file Legal Sex Female 3:34 AM WOOD GOUGER Gender Identity Not on file Sexual Orientation Not on file documented as of this encounter Plan of Treatment Not on file documented as of this encounter Visit Diagnoses Diagnosis Cervicalgia- Primary documented in this encounter Care Teams Balance Wheel Arm Burnisher Relationship Specialty Start Date End Date Adrienne March DO [address] [place] [address] PCP - General Family Practice 06/30/10 documented as of this encounter
--- OUTSIDE RECORDS SUMMARY | 2025-03-25 13:40 | XMS_ITS | Encounter Summary ---
Author Organization [facility] Address [address] [place] [address] Care Team Providers Care Dielectric Testing Machine Operator Name Role Phone Adrienne March Primary Care Provider Encounter Details Date Type Department Care Team (Late st Contact Info) Description 11/15/2007 Outpatient Historical [facility] Gen Spec Surg [place] [address] [place] [address] Ketan Lew MD [address] [place] [address] Social History Tobacco Use Types Packs/Day Years Used Date Smoking Tobacco: Never Assessed Comments Unknown Sex and Gender Information Value Date Recorded Sex Assigned at Not on file Legal Sex Female 3:34 AM COMPLAINT CLERK Gender Identity Not on file Sexual [...] , A, trina Job #: Document #: [id number] cc: Alexei Dubon D.O. LAINT CLERK documented in this encounter Plan of Treatment Not on file documented as of this encounter Visit Diagnoses Not on filedocumented in this encounter Care Teams Dielectric Testing Machine Operator Relationship Specialty Start Date End Date Adrienne March DO [address] [place] [address] PCP - General Family Practice 06/30/10 documented as of this encounter
--- OUTSIDE RECORDS SUMMARY | 2025-03-25 13:40 | XMS_ITS | Encounter Summary ---
Author Organization [facility] Address [address] [place] [address] Care Team Providers Care Ledge Man Name Role Phone Adrienne March DO Primary Care Provider [phone] Encounter Details Date Type Department Care Team (Late st Contact Info) Description 04/24/2003 Outpatient Historical [facility] Social History Tobacco Use Types Packs/Day Years Used Date Smoking Tobacco: Never Assessed Comments Unknown Sex and Gender Information Value Date Recorded Sex Assigned at Not on file Legal Sex Female 3:34 AM CHINESE LANGUAGE PROFESSOR Gender Identity Not on file Sexual Orientation Not on file documented as of this encounter Plan of Treatment Not on file documented as of this encounter Visit Diagnoses Not on filedocumented in this encounter Care Teams Ledge Man Relationship Specialty Start Date End Date Adrienne March DO [address] [place] [address] PCP - General Family Practice 06/30/10 documented as of this encounter
--- OUTSIDE RECORDS SUMMARY | 2025-03-25 13:40 | XMS_ITS | Encounter Summary ---
Author Organization [facility] Address [address] [place] [address] Care Team Providers Care Bond Broker Name Role Phone Adrienne March DO Primary Care Provider Encounter Details Date Type Department Care Team (Late st Contact Info) Description 02/01/2008 Outpatient Historical [facility] [address] [place] [address] AMBULANCE, [facility] Social History Tobacco Use Types Packs/Day Years Used Date Smoking Tobacco: Never Assessed Comments Unknown Sex and Gender Information Value Date Recorded Sex Assigned at Not on file Legal Sex Female 3:34 AM QUALITY SYSTEMS SPECIALIST Gender Identity Not on file Sexual Orientation Not on file documented as of this encounter Plan of Treatment Not on file documented as of this encounter Visit Diagnoses Not on filedocumented in this encounter Care Teams Bond Broker Relationship Specialty Start Date End Date Adrienne March DO [address] [place] [address] PCP - General Family Practice 06/30/10 documented as of this encounter
--- OUTSIDE RECORDS SUMMARY | 2025-03-25 13:40 | XMS_ITS | Encounter Summary ---
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
--- OUTSIDE RECORDS SUMMARY | 2025-03-25 13:40 | XMS_ITS | Encounter Summary ---
Author Organization [facility] Address [address] [place] [address] Care Team Providers Care Kosher Dietary Service Manager Name Role Phone Adrienne March DO Primary Care Provider +1- [phone] Encounter Details Date Type Department Care Team (Late st Contact Info) Description 04/03/2003 Outpatient Historical [facility] Social History Tobacco Use Types Packs/Day Years Used Date Smoking Tobacco: Never Assessed Comments Unknown Sex and Gender Information Value Date Recorded Sex Assigned at Not on file Legal Sex Female 3:34 AM LINK TRAINER TEACHER Gender Identity Not on file Sexual Orientation Not on file documented as of this encounter Plan of Treatment Not on file documented as of this encounter Visit Diagnoses Not on filedocumented in this encounter Care Teams Kosher Dietary Service Manager Relationship Specialty Start Date End Date Adrienne March DO [address] [place] [address] PCP - General Family Practice 06/30/10 documented as of this encounter
--- OUTSIDE RECORDS SUMMARY | 2025-03-25 13:40 | XMS_ITS | Encounter Summary ---
Author Organization [facility] Address [address] [place] [address] Care Team Providers Care Tooling Specialist Name Role Phone Adrienne March DO Primary Care Provider +1- [phone] Encounter Details Date Type Department Care Team (Latest Contact Info) Description 10/26/2001 Outpatient [facility] Podiat[facility] [place] [address] [place] [address] Abel Hurtado, DPM NO ADDRESS ON FILE Pain in limb (Primary Dx) Social History Tobacco Use Types Packs/Day Years Used Date Smoking Tobacco: Never Assessed Comments Unknown Sex and Gender Information Value Date Recorded Sex Assigned at Not on file Legal Sex Female 3:34 AM NATURAL RESOURCES SPECIALIST Gender Identity Not on file Sexual Orientation Not on file documented as of this encounter Plan of Treatment Not on file documented as of this encounter Visit Diagnoses Diagnosis Pain in limb- Primary Pain in soft tissues of limb documented in this encounter Care Teams Tooling Specialist Relationship Specialty Start Date End Date Adrienne March DO [address] [place] [address] PCP - General Family Practice 06/30/10 documented as of this encounter
--- OUTSIDE RECORDS SUMMARY | 2025-03-25 13:40 | XMS_ITS | Encounter Summary ---
Author Organization [facility] Address [address] [place] [address] Care Team Providers Care Farmworker Fruit Name Role Phone Adrienne March DO Primary Care Provider +1- [phone] Encounter Details Date Type Department Care Team (Latest Contact Info) Description 03/27/2003 Outpatient Historical [facility] Jose Luis Mcmillan MD [address] [place] [address] Cervical spondylosis (Primary Dx); CERVICALGIA Social History Tobacco Use Types Packs/Day Years Used Date Smoking Tobacco: Never Assessed Comments Unknown Sex and Gender Information Value Date Recorded Sex Assigned at Not on file Legal Sex Female 3:34 AM SENIOR TREASURY ANALYST Gender Identity Not on file Sexual Orientation Not on file documented as of this encounter Plan of Treatment Not on file documented as of this encounter Visit Diagnoses Diagnosis Cervical spondylosis- Primary Cervical spondylosis without myelopathy Cervicalgia documented in this encounter Care Teams Farmworker Fruit Relationship Specialty Start Date End Date Adrienne March DO [address] [place] [address] PCP - General Family Practice 06/30/10 documented as of this encounter
--- OUTSIDE RECORDS SUMMARY | 2025-03-25 13:40 | XMS_ITS | Encounter Summary ---
Author Organization [facility] Address [address] [place] [address] Care Team Providers Care Dust Collector Operator Name Role Phone Adrienne March DO Primary Care Provider Encounter Details Date Type Department Care Team (Late st Contact Info) Description 10/24/2007 Outpatient Historical [facility] Medicine- [place] [address] [place] [address] Gamal Bass, DOCTOR OF DENTAL MEDICINE [address] [place] [address] Social History Tobacco Use Types Packs/Day Years Used Date Smoking Tobacco: Never Assessed Comments Unknown Sex and Gender Information Value Date Recorded Sex Assigned at Not on file Legal Sex Female 3:34 AM SALES REPRESENTATIVE GRAPHIC ART Gender Identity Not on file Sexual Orientation Not on file documented as of this encounter Plan of Treatment Not on file documented as of this encounter Visit Diagnoses Not on filedocumented in this encounter Care Teams Dust Collector Operator Relationship Specialty Start Date End Date Adrienne March DO [address] [place] [address] PCP - General Family Practice 06/30/10 documented as of this encounter
--- OUTSIDE RECORDS SUMMARY | 2025-03-25 13:40 | XMS_ITS | Encounter Summary ---
Author Organization [facility] Address [address] [place] [address] Care Team Providers Care Helmet Hat Brim Cutter Name Role Phone Adrienne March Primary Care Provider [phone] Encounter Details Date Type Department Care Team (Late st Contact Info) Description 11/03/2024 Lab Requisition [facility] General Laboratory Services [place] [address] [place] [address] Wilsondecember, DESK MAKER [address] [place] [address] COVID-19 Social History Tobacco Use [...] on file Legal Sex Female 6:27 AM TURKEY EGG GATHERER Gender Identity Not on file Sexual Orientation Not on file documented as of this encounter Plan of Treatment Upcoming Encounters Date Type Department Care Team (Late st Contact Info) Description 03/29/2025 10:40 AM CDT Office Visit [facility] [address] [place] [address] December, DESK MAKER [address] [place] [address] 05/15/2025 8:40 AM CDT Office Visit [facility] [address] [place] [address] Adrienne March, DO [address] [place] [address] 07/25/2025 10:00 AM TURKEY EGG GATHERER Office Visit [facility] [address] [place] [address] Adrienne March, DO [address] [place] [address] documented as of this encounter Procedures Procedure Name Priority Date/Time Associated Diagnosis Comments CBC WITH DIFFERENTIAL Stat 11/03/2024 12:15 PM TURKEY EGG GATHERER COVID-19 documented in this encounter Results * (ABNORMAL) CBC WITH DIFFERENTIAL (11/03/2024 12:15 PM TURKEY EGG GATHERER) WBC 9.6 4.0 - 10.0 K/uL 11/03/2024 12:24 PM [facility] RBC 3.54(L) 3.93 - 5.22 M/uL 11/03/2024 12:24 PM [facility] HEMOGLOBIN 10.9(L) 11.2 - 15.7 g/dL 11/03/2024 12:24 PM [facility] HEMATOCRIT 33.6(L) 34.1 - 44.9 % 11/03/2024 12:24 PM [facility] MCV 94.9(H) 79.4 - 94.8 fL 11/03/2024 12:24 PM [facility] MCH 30.8 25.6 - 32.2 pg 11/03/2024 12:24 PM [facility] MCHC 32.4 32.2 - 35.5 g/dL 11/03/2024 12:24 PM [facility] RDW 13.8 11.0 - 14.5 % 11/03/2024 12:24 PM [facility] RDW-STDEV 47.8 36.9 - 56.9 fL 11/03/2024 12:24 PM [facility] PLATELETS 256 163 - 337 K/uL 11/03/2024 12:24 PM [facility] MPV 8.2(L) 10.0 - 14.8 fL 11/03/2024 12:24 PM [facility] NEUTROPHILS 60 34 - 71 % 11/03/2024 12:24 PM [facility] LYMPHOCYTES 17(L) 19 - 52 % 11/03/2024 12:24 PM [facility] MONOCYTES 8 5 - 13 % 11/03/2024 12:24 PM [facility] EOSINOPHILS 15(H) 1 - 6 % 11/03/2024 12:24 PM [facility] BASOPHILS 1 0 - 1 % 11/03/2024 12:24 PM [facility] IMMATURE GRANULOCYTES 1 % 11/03/2024 12:24 PM [facility] NEUTROPHIL ABSOLUTE 5.71 1.56 - 6.13 K/uL 11/03/2024 12:24 PM TURKEY EGG GATHERER [facility] LYMPHOCYTE ABSOLUTE 1.60 1.20 - 3.40 K/uL 11/03/2024 12:24 PM TURKEY EGG GATHERER [facility] MONOCYTE ABSOLUTE 0.72(H) 0.24 - 0.36 K/uL 11/03/2024 12:24 PM TURKEY EGG GATHERER [facility] EOSINOPHIL ABSOLUTE 1.46(H) 0.04 - 0.36 K/uL 11/03/2024 12:24 PM TURKEY EGG GATHERER [facility] BASOPHILS ABSOLUTE 0.06 0.01 - 0.08 K/uL 11/03/2024 12:24 PM TURKEY EGG GATHERER [facility] IMMATURE GRANULOCYTES ABSOLUTE 0.05 K/uL 11/03/2024 12:24 PM TURKEY EGG GATHERER [facility] Blood Collection / Unknown 11/03/2024 12:15 PM TURKEY EGG GATHERER 11/03/2024 12:21 PM TURKEY EGG GATHERER December [place] DESK MAKER HEMATOLOGY ORDERABLES Final Resu lt [facility] CLIA # [id number] [address] [place] [address] documented in this encounter Visit Diagnoses Diagnosis COVID-19 documented in this encounter Additional Health Concerns Infection Onset Date Last Indicated Resolved Time COVID-19 10/30/2024 10/30/2024 11/19/2024 1:16 AM TURKEY EGG GATHERER documented as of this encounter Care Teams Helmet Hat Brim Cutter Relationship Specialty Start Date End Date Adrienne March DO [address] [place] [address] PCP - General Family Practice 06/30/10 documented as of this encounter
--- OUTSIDE RECORDS SUMMARY | 2025-03-25 13:40 | XMS_ITS | Encounter Summary ---
Author Organization [facility] Address [address] [place] [address] Care Team Providers Care Electrical Lineworker Name Role Phone Adrienne March DO Primary Care Provider [phone] Encounter Details Date Type Department Care Team (Latest Contact Info) Description 11/27/2003 Outpatient [facility] [address] [place] [address] [address] Jose Luis Mcmillan MD [address] [place] [address] CERVICAL SPONDYLOSIS (Primary Dx) Social History Tobacco Use Types Packs/Day Years Used Date Smoking Tobacco: Never Assessed Comments Unknown Sex and Gender Information Value Date Recorded Sex Assigned at Not on file Legal Sex Female 3:34 AM PASTA PRESS OPERATOR Gender Identity Not on file Sexual Orientation Not on file documented as of this encounter Plan of Treatment Not on file documented as of this encounter Visit Diagnoses Diagnosis Cervical spondylosis without myelopathy- Primary documented in this encounter Care Teams Electrical Lineworker Relationship Specialty Start Date End Date Adrienne March DO [address] [place] [address] PCP - General Family Practice 06/30/10 documented as of this encounter
--- OUTSIDE RECORDS SUMMARY | 2025-03-25 13:40 | XMS_ITS | Encounter Summary ---
Author Organization [facility] Address [address] [place] [address] Care Team Providers Care Time Study Clerk Name Role Phone Adrienne March DO Primary Care Provider +1- [phone] Encounter Details Date Type Department Care Team (Late st Contact Info) Description 09/22/2001 Outpatient Historical [facility] Social History Tobacco Use Types Packs/Day Years Used Date Smoking Tobacco: Never Assessed Comments Unknown Sex and Gender Information Value Date Recorded Sex Assigned at Not on file Legal Sex Female 3:34 AM STUDENT FINANCE ADVISOR Gender Identity Not on file Sexual Orientation Not on file documented as of this encounter Plan of Treatment Not on file documented as of this encounter Visit Diagnoses Not on filedocumented in this encounter Care Teams Time Study Clerk Relationship Specialty Start Date End Date Adrienne March DO [address] [place] [address] PCP - General Family Practice 06/30/10 documented as of this encounter
--- OUTSIDE RECORDS SUMMARY | 2025-03-25 13:40 | XMS_ITS | Encounter Summary ---
Author Organization [facility] Address [address] [place] [address] Care Team Providers Care Toll Bridge Attendant Name Role Phone Adrienne March DO Primary Care Provider +1- [phone] Encounter Details Date Type Department Care Team (Late st Contact Info) Description 10/01/2003 Inpatient Historical [facility] Jose Luis Mcmlilan MD [address] [place] [address] CERVICAL DISC DISPLACMNT (Primary Dx) Social History Tobacco Use Types Packs/Day Years Used Date Smoking Tobacco: Never Assessed Comments Unknown Sex and Gender Information Value Date Recorded Sex Assigned at Not on file Legal Sex Female 3:34 AM CHIEF OPERATOR LOCK TENDER Gender Identity Not on file Sexual Orientation Not on file documented as of this encounter Plan of Treatment Not on file documented as of this encounter Visit Diagnoses Diagnosis Displacement of cervical intervertebral disc without myelopathy- Primary documented in this encounter Care Teams Toll Bridge Attendant Relationship Specialty Start Date End Date Adrienne March DO [address] [place] [address] PCP - General Family Practice 06/30/10 documented as of this encounter
--- OUTSIDE RECORDS SUMMARY | 2025-03-25 13:40 | XMS_ITS | Encounter Summary ---
Author Organization [facility] Address [address] [place] [address] Care Team Providers Care County Court Judge Name Role Phone Adrienne March DO Primary Care Provider +1- [phone] Encounter Details Date Type Department Care Team (Latest Contact Info) Description 01/31/2003 Outpatient Historical [facility] Jose Luis Mcmillan MD [address] [place] [address] BRACHIAL NEURITIS NOS (Primary Dx); CERVICALGIA; Cervical spondylosis Social History Tobacco Use Types Packs/Day Years Used Date Smoking Tobacco: Never Assessed Comments Unknown Sex and Gender Information Value Date Recorded Sex Assigned at Not on file Legal Sex Female 3:34 AM INJECTION PRESS OPERATOR Gender Identity Not on file Sexual Orientation Not on file documented as of this encounter Plan of Treatment Not on file documented as of this encounter Visit Diagnoses Diagnosis Brachial neuritis or radiculitis NOS- Primary Brachial neuritis or radiculitis nos Cervicalgia Cervical spondylosis Cervical spondylosis without myelopathy documented in this encounter Care Teams County Court Judge Relationship Specialty Start Date End Date Adrienne March DO [address] [place] [address] PCP - General Family Practice 06/30/10 documented as of this encounter
--- OUTSIDE RECORDS SUMMARY | 2025-03-25 13:40 | XMS_ITS | Encounter Summary ---
Author Organization [facility] Address [address] [place] [address] Care Team Providers Care Chief Architect Name Role Phone Adrienne March DO Primary Care Provider Encounter Details Date Type Department Care Team (Latest Contact Info) Description 05/22/2003 Outpatient Historical [facility] Physical Therapy [address] [place] [address] [place] [address] Wilfredo Michel MD [address] [phone] CERVICALGIA (Primary Dx) Social History Tobacco Use Types Packs/Day Years Used Date Smoking Tobacco: Never Assessed Comments Unknown Sex and Gender Information Value Date Recorded Sex Assigned at Not on file Legal Sex Female 3:34 AM OPERATIONAL TRAINER Gender Identity Not on file Sexual Orientation Not on file documented as of this encounter Plan of Treatment Not on file documented as of this encounter Visit Diagnoses Diagnosis Cervicalgia- Primary documented in this encounter Care Teams Chief Architect Relationship Specialty Start Date End Date Adrienne March DO [address] [place] [address] PCP - General Family Practice 06/30/10 documented as of this encounter
--- OUTSIDE RECORDS SUMMARY | 2025-03-25 13:40 | XMS_ITS | Encounter Summary ---
Author Organization [facility] Address [address] [place] [address] Care Team Providers Care Equipment Engineering Technician Name Role Phone Adrienne March DO Primary Care Provider Encounter Details Date Type Department Care Team (Latest Contact Info) Description 03/16/2003 Outpatient Historical [facility] Wilfredo Michel MD [address] [phone] JOINT PAIN-SHLDER (Primary Dx) Social History Tobacco Use Types Packs/Day Years Used Date Smoking Tobacco: Never Assessed Comments Unknown Sex and Gender Information Value Date Recorded Sex Assigned at Not on file Legal Sex Female 3:34 AM TIME LOCK EXPERT Gender Identity Not on file Sexual Orientation Not on file documented as of this encounter Plan of Treatment Not on file documented as of this encounter Visit Diagnoses Diagnosis Pain in joint, shoulder region- Primary documented in this encounter Care Teams Equipment Engineering Technician Relationship Specialty Start Date End Date Adrienne March DO [address] [place] [address] PCP - General Family Practice 06/30/10 documented as of this encounter
--- OUTSIDE RECORDS SUMMARY | 2025-03-25 13:40 | XMS_ITS | Encounter Summary ---
Author Organization [facility] Address [address] [place] [address] Care Team Providers Care Embroidery Worker Name Role Phone Adrienne March DO Primary Care Provider [phone] Encounter Details Date Type Department Care Team (Late st Contact Info) Description 10/04/2007 Outpatient Historical [facility] Gen Spec Surg [place] [address] [place] [address] Ketan Lew MD [address] [place] [address] Social History Tobacco Use Types Packs/Day Years Used Date Smoking Tobacco: Never Assessed Comments Unknown Sex and Gender Information Value Date Recorded Sex Assigned at Not on file Legal Sex Female 3:34 AM CARTON FILLER Gender Identity Not on file Sexual Orientation [...] , P, trina Job #: Document #: [id number] cc: Alexei Dubon D.O. ON FILLER ON FILLER documented in this encounter Plan of Treatment Not on file documented as of this encounter Visit Diagnoses Not on filedocumented in this encounter Care Teams Embroidery Worker Relationship Specialty Start Date End Date Adrienne March DO [address] [place] [address] PCP - General Family Practice 06/30/10 documented as of this encounter
--- OUTSIDE RECORDS SUMMARY | 2025-03-25 13:40 | XMS_ITS | Encounter Summary ---
Author Organization [facility] Address [address] [place] [address] Care Team Providers Care Perioperative Tech Name Role Phone Adrienne March DO Primary Care Provider +1- [phone] Encounter Details Date Type Department Care Team (Late st Contact Info) Description 07/08/2001 Outpatient Historical [facility] Social History Tobacco Use Types Packs/Day Years Used Date Smoking Tobacco: Never Assessed Comments Unknown Sex and Gender Information Value Date Recorded Sex Assigned at Not on file Legal Sex Female 3:34 AM SECURITY SERVICES SPECIALIST Gender Identity Not on file Sexual Orientation Not on file documented as of this encounter Plan of Treatment Not on file documented as of this encounter Visit Diagnoses Not on filedocumented in this encounter Care Teams Perioperative Tech Relationship Specialty Start Date End Date Adrienne March DO [address] [place] [address] PCP - General Family Practice 06/30/10 documented as of this encounter
--- OUTSIDE RECORDS SUMMARY | 2025-03-25 13:40 | XMS_ITS | Encounter Summary ---
Author Organization [facility] Address [address] [place] [address] Care Team Providers Care Sewage Screen Operator Name Role Phone Adrienne March DO Primary Care Provider [phone] Encounter Details Date Type Department Care Team (Latest Contact Info) Description 03/21/2003 Outpatient Historical [facility] Physical Therapy [address] [place] [address] [place] [address] Wilfredo Michel MD [address] [phone] CERVICALGIA (Primary Dx) Social History Tobacco Use Types Packs/Day Years Used Date Smoking Tobacco: Never Assessed Comments Unknown Sex and Gender Information Value Date Recorded Sex Assigned at Not on file Legal Sex Female 3:34 AM COUPLES THERAPIST Gender Identity Not on file Sexual Orientation Not on file documented as of this encounter Plan of Treatment Not on file documented as of this encounter Visit Diagnoses Diagnosis Cervicalgia- Primary documented in this encounter Care Teams Sewage Screen Operator Relationship Specialty Start Date End Date Adrienne March DO [address] [place] [address] PCP - General Family Practice 06/30/10 documented as of this encounter
--- OUTSIDE RECORDS SUMMARY | 2025-03-25 13:40 | XMS_ITS | Encounter Summary ---
Author Organization [facility] Address [address] [place] [address] Care Team Providers Care Hospitality Internship Name Role Phone Adrienne March DO Primary Care Provider Encounter Details Date Type Department Care Team (Latest Contact Info) Description 07/13/2001 Outpatient Historical [facility] Neurology [address] [facility], [address] [place] [address] [place] NO ADDRESS ON FILE Pain in limb (Primary Dx) Social History Tobacco Use Types Packs/Day Years Used Date Smoking Tobacco: Never Assessed Comments Unknown Sex and Gender Information Value Date Recorded Sex Assigned at Not on file Legal Sex Female 3:34 AM RECEPTIONIST CLERK Gender Identity Not on file Sexual Orientation Not on file documented as of this encounter Plan of Treatment Not on file documented as of this encounter Visit Diagnoses Diagnosis Pain in limb- Primary Pain in soft tissues of limb documented in this encounter Care Teams Hospitality Internship Relationship Specialty Start Date End Date Adrienne March DO [address] [place] [address] PCP - General Family Practice 06/30/10 documented as of this encounter
--- OUTSIDE RECORDS SUMMARY | 2025-03-25 13:40 | XMS_ITS | Encounter Summary ---
Author Organization [facility] Address [address] [place] [address] Care Team Providers Care Armoured Corps Officer Name Role Phone Adrienne March DO Primary Care Provider Encounter Details Date Type Department Care Team (Latest Contact Info) Description 09/27/2003 Outpatient Historical [facility] Orthopedics- [address] [place] [address] [place] [phone] Jose Luis Mcmillan MD [address] [place] [address] Cervical spondylosis (Primary Dx); CERVICALGIA; Cervical spinal stenosis; BRACHIAL NEURITIS NOS Social History Tobacco Use Types Packs/Day Years Used Date Smoking Tobacco: Never Assessed Comments Unknown Sex and Gender Information Value Date Recorded Sex Assigned at Not on file Legal Sex Female 3:34 AM POWDER PRESS OPERATOR Gender Identity Not on file Sexual Orientation Not on file documented as of this encounter Plan of Treatment Not on file documented as of this encounter Visit Diagnoses Diagnosis Cervical spondylosis- Primary Cervical spondylosis without myelopathy Cervicalgia Cervical spinal stenosis Spinal stenosis in cervical region Brachial neuritis or radiculitis NOS Brachial neuritis or radiculitis nos documented in this encounter Care Teams [employer] Officer Relationship Specialty Start Date End Date Adrienne March DO [address] [place] [address] PCP - General Family Practice 06/30/10 documented as of this encounter
--- OUTSIDE RECORDS SUMMARY | 2025-03-25 13:40 | XMS_ITS | Encounter Summary ---
Author Organization [facility] Address [address] [place] [address] Care Team Providers Care Senior Chemical Process Engineer Name Role Phone Adrienne March Primary Care Provider Encounter Details Date Type Department Care Team (Late st Contact Info) Description 03/22/2025 Orders Only [facility] Family Medicine [place] [address] [place] [address] WilsonDecember, [facility] [address] [place] [address] Acute cystitis without hematuria (Primary Dx) Social History Tobacco Use Types [...] on file Legal Sex Female 6:27 AM ALTERNATIVE ENERGY ENGINEER Gender Identity Not on file Sexual Orientation Not on file documented as of this encounter Plan of Treatment Upcoming Encounters Date Type Department Care Team (Late st Contact Info) Description 03/29/2025 10:40 AM CDT Office Visit [facility] [address] [place] [address] Wilsondecember, SLEEVE SETTER LOCKSTITCH [address] [place] [address] 05/15/2025 8:40 AM CDT Office Visit [facility] [address] [place] [address] Adrienne March DO [address] [place] [address] 07/25/2025 10:00 AM ALTERNATIVE ENERGY ENGINEER Office Visit [facility] [address] [facility] [place] [address] Adrienne March DO [address] [place] [facility] [place] [address] documented as of this encounter Visit Diagnoses Diagnosis Acute cystitis without hematuria- Primary Acute cystitis documented in this encounter Care Teams Senior Chemical Process Engineer Relationship Specialty Start Date End Date Adrienne March DO [address] [place] [address] PCP - General Family Practice 06/30/10 documented as of this encounter
--- OUTSIDE RECORDS SUMMARY | 2025-03-25 13:40 | XMS_ITS | Encounter Summary ---
Author Organization [facility] Address [address] [place] [address] Care Team Providers Care Digital Marketer Name Role Phone Adrienne March Primary Care Provider Encounter Details Date Type Department Care Team (Late st Contact Info) Description 03/22/2025 Results Follow-Up [facility] Medicine [place] [address] [place] [address] Wilson, December, SPECIAL EVENT ASSISTANT [address] [place] [address] POC URINALYSIS DIPSTICK AUTOMATED, URINE CULTURE, LIPASE, Additional followed-up results: 2 Social History Tobacco Use Types Packs/Day Years [...] on file Legal Sex Female 6:27 AM TESTING AND REGULATING CHIEF Gender Identity Not on file Sexual Orientation Not on file documented as of this encounter Miscellaneous Notes * Telephone Encounter - Altagracia Rollins LPN - 03/22/2025 2:42 PM CDT 03/22/2025 2:42 PM No answer. Left voice mail/message that patient/caregiver can return our call. If patient/caregivercalls back, contact center may tell caller Connie Allen know that her kidney function is down a little. She got too dehydrated from increasing herLasix. Have her try to take her Lasix every other day and make sure she is staying hydrated. Have her try to do this for the next week. If her swelling or breathing get bad tell her to start taking her Lasix daily. The antibiotic I gave her for the UTI will not treat the infection. Let her know I sent her in a different one. One of her labs wasn't done because there was an issue with the specimen. If her sister can bring her in she can come in for a nurse visit to have this redone. If she is feeling better we can hold off on redoing the lab. Altagracia HERRERA * Telephone Encounter - Altagracia Rollins LPN - 03/22/2025 2:40 PM CDT ----- Message from Decembere sent at 03/22/2025 7:13 AM CDT ----- Let Tiffany know that her kidney function is down a little. She got too dehydrated from increasing herLasix. Have her try to take her Lasix every other day and make sure she is staying hydrated. Have her try to do this for the next week. If her swelling or breathing get bad tell her to start taking her Lasix daily. The antibiotic I gave her for the UTI will not treat the infection. Let her know I sent her in a different one. One of her labs wasn't done because there was an issue with the specimen. If her sister can bring her in she can come in for a nurse visit to have this redone. If she is feeling better we can hold off on redoing the lab. documented in this encounter Plan of Treatment Upcoming Encounters Date Type Department Care Team (Late st Contact Info) Description 03/29/2025 10:40 AM CDT Office Visit [facility] [address] [place] [address] Wilsondecember, SPECIAL EVENT ASSISTANT [address] [place] [address] 05/15/2025 8:40 AM CDT Office Visit [facility] [address] [place] [address] Adrienne March, DO [address] [place] [address] 07/25/2025 10:00 AM TESTING AND REGULATING CHIEF Office Visit [facility] [address] [place] [address] Adrienne March, DO [address] [place] [address] documented as of this encounter Visit Diagnoses Not on filedocumented in this encounter Care Teams Digital Marketer Relationship Specialty Start Date End Date Adrienne March DO [address] [place] [address] PCP - General Family Practice 06/30/10 documented as of this encounter
--- OUTSIDE RECORDS SUMMARY | 2025-03-25 13:40 | XMS_ITS | Encounter Summary ---
Author Organization [facility] Address [address] [place] [address] Care Team Providers Care Rn Operating Room Name Role Phone Adrienne March DO Primary Care Provider +1- [phone] Encounter Details Date Type Department Care Team (Late st Contact Info) Description 08/29/[address] [facility] Social History Tobacco Use Types Packs/Day Years Used Date Smoking Tobacco: Never Assessed Comments Unknown Sex and Gender Information Value Date Recorded Sex Assigned at Not on file Legal Sex Female 3:34 AM BLANKET INSPECTOR Gender Identity Not on file Sexual Orientation Not on file documented as of this encounter Plan of Treatment Not on file documented as of this encounter Visit Diagnoses Not on filedocumented in this encounter Care Teams Rn Operating Room Relationship Specialty Start Date End Date Adrienne March DO [address] [place] [address] PCP - General Family Practice 06/30/10 documented as of this encounter
--- OUTSIDE RECORDS SUMMARY | 2025-03-25 13:40 | XMS_ITS | Encounter Summary ---
Author Organization [facility] Address [address] [place] [address] Care Team Providers Care Ammonia Refrigeration Worker Name Role Phone Adrienne March DO Primary Care Provider Encounter Details Date Type Department Care Team (Latest Contact Info) Description 07/15/2001 Outpatient Historical [facility] [address] [phone] Lesly Jones MD NO ADDRESS ON FILE Other screening mammogram (Primary Dx) Social History Tobacco Use Types Packs/Day Years Used Date Smoking Tobacco: Never Assessed Comments Unknown Sex and Gender Information Value Date Recorded Sex Assigned at Not on file Legal Sex Female 3:34 AM PYROMETER TEMPERATURE REGULATOR Gender Identity Not on file Sexual Orientation Not on file documented as of this encounter Plan of Treatment Not on file documented as of this encounter Visit Diagnoses Diagnosis Other screening mammogram- Primary documented in this encounter Care Teams Ammonia Refrigeration Worker Relationship Specialty Start Date End Date Adrienne March DO [address] [place] [address] PCP - General Family Practice 06/30/10 documented as of this encounter
--- OUTSIDE RECORDS SUMMARY | 2025-03-25 13:40 | XMS_ITS | Encounter Summary ---
Author Organization [facility] Address [address] [place] [address] Care Team Providers Care Telecom Coordinator Name Role Phone Adrienne March DO Primary Care Provider Encounter Details Date Type Department Care Team (Late st Contact Info) Description 12/16/2017 Ancillary Orders [facility] [address] [place] [phone] DO NO ADDRESS ON FILE [...] on file Legal Sex Female 3:34 AM SCRAP BUNCH MAKER Gender Identity Not on file Sexual [...] phase documented in this encounter Care Teams Telecom Coordinator Relationship Specialty Start Date End Date Adrienne March DO [address] [place] [address] PCP - General Family Practice 06/30/10 documented as of this encounter
--- OUTSIDE RECORDS SUMMARY | 2025-03-25 13:40 | XMS_ITS | Encounter Summary ---
Author Organization [facility] Address [address] [place]: [place] [address] Care Team Providers Care Mining Engineer Name Role Phone Adrienne March DO Primary Care Provider +1- [phone] Encounter Details Date Type Department Care Team (Late st Contact Info) Description 08/29/2001 Outpatient Historical Abel Hurtado, DPM NO ADDRESS ON FILE Social History Tobacco Use Types Packs/Day Years Used Date Smoking Tobacco: Never Assessed Comments Unknown Sex and Gender Information Value Date Recorded Sex Assigned at Not on file Legal Sex Female 3:34 AM DIAL SCREW ASSEMBLER Gender Identity Not on file Sexual Orientation Not on file documented as of this encounter Plan of Treatment Not on file documented as of this encounter Visit Diagnoses Not on filedocumented in this encounter Care Teams Mining Engineer Relationship Specialty Start Date End Date Adrienne March DO [address] [place] [facility] [place] [address] PCP - General Family Practice 06/30/10 documented as of this encounter
--- OUTSIDE RECORDS SUMMARY | 2025-03-25 13:40 | XMS_ITS | Encounter Summary ---
Author Organization [facility] Address [address] [place]: [place] [address] Care Team Providers Care Physics Teacher Name Role Phone Adrienne March DO Primary Care Provider +1- [phone] Encounter Details Date Type Department Care Team (Late st Contact Info) Description 07/15/2001 Outpatient Historical Umang Urrutia MD [address] [place] [address] Social History Tobacco Use Types Packs/Day Years Used Date Smoking Tobacco: Never Assessed Comments Unknown Sex and Gender Information Value Date Recorded Sex Assigned at Not on file Legal Sex Female 3:34 AM INFORMATION TECHNOLOGY AUDITOR Gender Identity Not on file Sexual Orientation Not on file documented as of this encounter Plan of Treatment Not on file documented as of this encounter Visit Diagnoses Not on filedocumented in this encounter Care Teams Physics Teacher Relationship Specialty Start Date End Date Adrienne March DO [address] [place] [address] PCP - General Family Practice 06/30/10 documented as of this encounter
--- OUTSIDE RECORDS SUMMARY | 2025-03-25 13:40 | XMS_ITS | Encounter Summary ---
Author Organization [facility] Address [address] [place] [address] Care Team Providers Care Nut Picker Name Role Phone Adrienne March DO Primary Care Provider [phone] Encounter Details Date Type Department Care Team (Late st Contact Info) Description 03/25/2020 Ancillary Orders [facility] [address] [place] [address] Adrienne March DO [address] [place] [address] Crushing injury of left elbow, initial encounter Social History Tobacco Use Types Packs/Day Years Used Date Smoking Tobacco: Never Smokeless Tobacco: Never Alcohol Use Standard Drinks/Week Comments No 0 (1 standard drink = 0.6 oz pur e alcohol) Comments No Sex and Gender Information Value Date Recorded Sex Assigned at Not on file Legal Sex Female 3:34 AM RENTAL MANAGEMENT TRAINEE Gender Identity Not on file Sexual Orientation [...] without evidence of an acute osseous abnormality. [id number] Narrative 03/25/2020 2:46 PM CDT Exam: XR [...] without evidence of an acute osseous abnormality. [id number] Adrienne March DO DIAGNOSTIC IMAGING ORDERABL ES Final Result documented in this encounter Visit Diagnoses Diagnosis Crushing injury of left elbow, initial encounter Crushing injury of left elbow, initial encounter documented in this encounter Care Teams Nut Picker Relationship Specialty Start Date End Date Adrienne March DO [address] [place] [address] PCP - General Family Practice 06/30/10 documented as of this encounter
--- OUTSIDE RECORDS SUMMARY | 2025-03-25 13:40 | XMS_ITS | Encounter Summary ---
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
--- OUTSIDE RECORDS SUMMARY | 2025-03-25 13:40 | XMS_ITS | Encounter Summary ---
Author Organization [facility] Address [address] 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
--- OUTSIDE RECORDS SUMMARY | 2025-03-25 13:40 | XMS_ITS | Encounter Summary ---
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
--- OUTSIDE RECORDS SUMMARY | 2025-03-25 13:40 | XMS_ITS | Encounter Summary ---
Author Organization [facility] Address [address] [place] [address] Care Team Providers Care Orange Picker Machine Operator Name Role Phone Adrienne March DO Primary Care Provider Encounter Details Date Type Department Care Team (Latest Contact Info) Description 08/18/2001 Outpatient [facility] [place] [address] [place] [address] Abel Hurtado, DPM NO ADDRESS ON FILE Pain in limb (Primary Dx) Social History Tobacco Use Types Packs/Day Years Used Date Smoking Tobacco: Never Assessed Comments Unknown Sex and Gender Information Value Date Recorded Sex Assigned at Not on file Legal Sex Female 3:34 AM MECHANICAL EXPERT Gender Identity Not on file Sexual Orientation Not on file documented as of this encounter Plan of Treatment Not on file documented as of this encounter Visit Diagnoses Diagnosis Pain in limb- Primary Pain in soft tissues of limb documented in this encounter Care Teams Orange Picker Machine Operator Relationship Specialty Start Date End Date Adrienne March DO [address] [place] [address] PCP - General Family Practice 06/30/10 documented as of this encounter
--- OUTSIDE RECORDS SUMMARY | 2025-03-25 13:40 | XMS_ITS | Encounter Summary ---
Author Organization [facility] Address [address] [place] [address] Care Team Providers Care Surgical Supervisor Name Role Phone Adrienne March DO Primary Care Provider [phone] Encounter Details Date Type Department Care Team (Latest Contact Info) Description 10/26/2003 Outpatient [facility] [address] [address] Jose Luis Mcmillan MD [address] [place] [address] PAIN IN LIMB (Primary Dx) Social History Tobacco Use Types Packs/Day Years Used Date Smoking Tobacco: Never Assessed Comments Unknown Sex and Gender Information Value Date Recorded Sex Assigned at Not on file 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
--- OUTSIDE RECORDS SUMMARY | 2025-03-25 13:40 | XMS_ITS | Encounter Summary ---
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
--- OUTSIDE RECORDS SUMMARY | 2025-03-25 13:40 | XMS_ITS | Encounter Summary ---
Author Organization [facility] Address [address] [place] [address] Care Team Providers Care Director Life Sciences Name Role Phone Adrienne March DO Primary Care Provider Encounter Details Date Type Department Care Team (Latest Contact Info) Description 03/16/2003 [facility]patient [facility] [address] [place] [address] Wilfredo Michel MD [address] [address] BRACHIAL NEURITIS NOS (Primary Dx) Social History Tobacco Use Types Packs/Day Years Used Date Smoking Tobacco: Never Assessed Comments Unknown Sex and Gender Information Value Date Recorded Sex Assigned at Not on file 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
--- OUTSIDE RECORDS SUMMARY | 2025-03-25 13:40 | XMS_ITS | Encounter Summary ---
Author Organization [facility] Address [address] [place] [address] Care Team Providers Care Mining Captain Name Role Phone Adrienne March DO Primary Care Provider +1- [phone] Encounter Details Date Type Department Care Team (Latest Contact Info) Description 02/13/2003 Outpatient Historical [facility] Jose Luis Mcmillan MD [address] [place] [address] CERVICALGIA (Primary Dx); Cervical disc displacmnt; Cervical spondylosis; Cervical spinal stenosis Social History Tobacco Use Types Packs/Day Years Used Date Smoking Tobacco: Never Assessed Comments Unknown Sex and Gender Information Value Date Recorded Sex Assigned at Not on file 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 Gender Identity Not on file Sexual Orientation Not on file documented as of this encounter Plan of Treatment Not on file documented as of this encounter Visit Diagnoses Diagnosis Cervicalgia- Primary Cervical disc displacmnt Displacement of cervical intervertebral disc without myelopathy Cervical spondylosis Cervical spondylosis without myelopathy Cervical spinal stenosis Spinal stenosis in cervical region documented in this encounter Care Teams Mining Captain Relationship Specialty Start Date End Date Adrienne March DO [address] [place] [address] PCP - General Family Practice 06/30/10 documented as of this encounter
--- OUTSIDE RECORDS SUMMARY | 2025-03-25 13:40 | XMS_ITS | Encounter Summary ---
Author Organization [facility] Address [address] [place] [address] Care Team Providers Care Adjusto Writer Operator Name Role Phone Adrienne March Primary Care Provider Reason for Visit * Reason Onset Date Comments Medication Review 03/16/2025 Encounter Details Date Type Department Care Team (Late st Contact Info) Description 03/16/2025 Telephone [facility] Medicine Chloe [address] [place] [address] December, [facility] [address] [place] [address] Medication Review Social History Tobacco [...] on file Legal Sex Female 6:27 AM GIFT CONSULTANT Gender Identity Not on file Sexual Orientation Not on file documented as of this encounter Miscellaneous Notes * Telephone Encounter - Treva Bryan CMA - 03/19/2025 10:46 AM CDT Patient seen today. She is taking Lasix 40 mg daily. * Telephone Encounter - Treva Bryan CMA - 03/19/2025 10:43 AM CDT Images from the original note were not included. Wilson, December, BATCH TRUCKER You3 hours ago (7:39 AM) The 80 mg was only for 3 days. She should be taking 40 mg daily. * Telephone Encounter - Treva Bryan CMA - 03/16/2025 4:23 PM CDT [place] [facility] faxed note stating that the patient [...] Description 03/29/2025 10:40 AM CDT Office Visit [facility] [address] [place] [address] Wilsondecember, BATCH TRUCKER [address] [place] [address] 05/15/2025 8:40 AM CDT Office Visit [facility] [address] [place] [address] Adrienne March, DO [address] [place] [address] 07/25/2025 10:00 AM GIFT CONSULTANT Office Visit [facility] [address] [place] [address] Adrienne March, DO [address] [place] [address] documented as of this encounter Visit Diagnoses Not on filedocumented in this encounter Care Teams Adjusto Writer Operator Relationship Specialty Start Date End Date Adrienne March DO [address] [place] [address] PCP - General Family Practice 06/30/10 documented as of this encounter
--- OUTSIDE RECORDS SUMMARY | 2025-03-25 13:40 | XMS_ITS | Encounter Summary ---
Author Organization [facility] Address [address] [place] [address] Care Team Providers Care Sawmill Moulder Operator Name Role Phone Adrienne March DO Primary Care Provider +1- [phone] Encounter Details Date Type Department Care Team (Latest Contact Info) Description 04/30/2003 Outpatient Historical [facility] Wilfredo Michel MD [address] [phone] MONONEURITIS NOS (Primary Dx) Social History Tobacco Use Types Packs/Day Years Used Date Smoking Tobacco: Never Assessed Comments Unknown Sex and Gender Information Value Date Recorded Sex Assigned at Not on file Legal Sex Female 3:34 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
--- OUTSIDE RECORDS SUMMARY | 2025-03-25 13:40 | XMS_ITS | Encounter Summary ---
Author Organization [facility] Address [address] [place] [address] Care Team Providers Care Artificial Glass Eye Maker Name Role Phone Adrienne March DO Primary Care Provider +1- [phone] Encounter Details Date Type Department Care Team (Late st Contact Info) Description 02/03/2003 Outpatient Historical [facility] Imaging Services [address] [place] [phone] Jose Luis Mcmillan MD [address] [place] [address] Social History Tobacco Use Types Packs/Day Years Used Date Smoking Tobacco: Never Assessed Comments Unknown Sex and Gender Information Value Date Recorded Sex Assigned at Not on file 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
--- OUTSIDE RECORDS SUMMARY | 2025-03-25 13:40 | XMS_ITS | Encounter Summary ---
Author Organization [facility] Address [address] [place] [address] Care Team Providers Care Blueprint Engineer Name Role Phone Adrienne March DO Primary Care Provider +1- [phone] Encounter Details Date Type Department Care Team (Latest Contact Info) Description 04/30/2003 [facility]patient 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
--- OUTSIDE RECORDS SUMMARY | 2025-03-25 13:40 | XMS_ITS | Encounter Summary ---
Author Organization [facility] Address [address] [place] [address] Care Team Providers Care Dog Breeder Name Role Phone Adrienne March DO Primary Care Provider +1- [phone] Encounter Details Date Type Department Care Team (Late st Contact Info) Description 04/24/2003 Outpatient Historical [facility] Social History Tobacco Use Types Packs/Day Years Used Date Smoking Tobacco: Never Assessed Comments Unknown Sex and Gender Information Value Date Recorded Sex Assigned at Not on file Legal Sex Female 3:34 AM PUBLISHING DIRECTOR Gender Identity Not on file Sexual Orientation Not on file documented as of this encounter Plan of Treatment Not on file documented as of this encounter Visit Diagnoses Not on filedocumented in this encounter Care Teams Dog Breeder Relationship Specialty Start Date End Date Adrienne March DO [address] [place] [address] PCP - General Family Practice 06/30/10 documented as of this encounter
--- OUTSIDE RECORDS SUMMARY | 2025-03-25 13:40 | XMS_ITS | Encounter Summary ---
Author Organization [facility] Address [address] [place]: [place] [address] Care Team Providers Care Catering Barista Name Role Phone Adrienne March DO Primary Care Provider +1- [phone] Encounter Details Date Type Department Care Team (Late st Contact Info) Description 07/08/2001 Outpatient Historical Abel Hurtado, DPM NO ADDRESS ON FILE Social History Tobacco Use Types Packs/Day Years Used Date Smoking Tobacco: Never Assessed Comments Unknown Sex and Gender Information Value Date Recorded Sex Assigned at Not on file Legal Sex Female 3:34 AM RAM PRESS OPERATOR Gender Identity Not on file Sexual Orientation Not on file documented as of this encounter Plan of Treatment Not on file documented as of this encounter Visit Diagnoses Not on filedocumented in this encounter Care Teams Catering Barista Relationship Specialty Start Date End Date Adreinne March DO [address] [place] [address] PCP - General Family Practice 06/30/10 documented as of this encounter
--- OUTSIDE RECORDS SUMMARY | 2025-03-25 13:40 | XMS_ITS | Encounter Summary ---
Author Organization [facility] Address [address] [place] [address] Care Team Providers Care Dairy Equipment Mechanic Name Role Phone Adrienne March DO Primary Care Provider [phone] Encounter Details Date Type Department Care Team (Latest Contact Info) Description 06/22/2003 Outpatient Historical [facility] Physical Therapy [address] [place] [place] [phone] Wilfreod Michel MD [address] [phone] CERVICALGIA (Primary Dx) Social History Tobacco Use Types Packs/Day Years Used Date Smoking Tobacco: Never Assessed Comments Unknown Sex and Gender Information Value Date Recorded Sex Assigned at Not on file Legal Sex Female 3:34 AM BRICK BAKER Gender Identity Not on file Sexual Orientation Not on file documented as of this encounter Plan of Treatment Not on file documented as of this encounter Visit Diagnoses Diagnosis Cervicalgia- Primary documented in this encounter Care Teams Dairy Equipment Mechanic Relationship Specialty Start Date End Date Adrienne March DO [address] [place] [address] PCP - General Family Practice 06/30/10 documented as of this encounter
--- OUTSIDE RECORDS SUMMARY | 2025-03-25 13:41 | XMS_ITS | Encounter Summary ---
Author Organization [facility] Address [address] [place] [address] Care Team Providers Care Crm Analyst Name Role Phone Adrienne March DO Primary Care Provider Encounter Details Date Type Department Care Team (Latest Contact Info) Description 01/08/2004 Outpatient Historical [facility] [address] [place] [address] Jose Luis Mcmillan MD [address] [place] [address] CERVICALGIA (Primary Dx); Cervical spondylosis Social History Tobacco Use Types Packs/Day Years Used Date Smoking Tobacco: Never Assessed Comments Unknown Sex and Gender Information Value Date Recorded Sex Assigned at Not on file Legal Sex Female 3:34 AM MANAGER OF FINANCE Gender Identity Not on file Sexual Orientation Not on file documented as of this encounter Plan of Treatment Not on file documented as of this encounter Visit Diagnoses Diagnosis Cervicalgia- Primary Cervical spondylosis Cervical spondylosis without myelopathy documented in this encounter Care Teams Crm Analyst Relationship Specialty Start Date End Date Adrienne March DO [address] [place] [address] PCP - General Family Practice 06/30/10 documented as of this encounter
--- OUTSIDE RECORDS SUMMARY | 2025-03-25 13:41 | XMS_ITS | Encounter Summary ---
Author Organization [facility] Address [address] [place] [address] Care Team Providers Care Director Of Early Childhood Education Name Role Phone Adrienne March DO Primary Care Provider Encounter Details Date Type Department Care Team (Latest Contact Info) Description 06/12/2004 Outpatient Historical [facility] [address] [place] [address] Jose Luis Mcmillan MD [address] [place] [address] JOINT PAIN-SHLDER (Primary Dx) Social History Tobacco Use Types Packs/Day Years Used Date Smoking Tobacco: Never Assessed Comments Unknown Sex and Gender Information Value Date Recorded Sex Assigned at Not on file Legal Sex Female 3:34 AM BOLOGNA MAKER Gender Identity Not on file Sexual Orientation Not on file documented as of this encounter Plan of Treatment Not on file documented as of this encounter Visit Diagnoses Diagnosis Pain in joint, shoulder region- Primary documented in this encounter Care Teams Director Of Early Childhood Education Relationship Specialty Start Date End Date Adrienne March DO [address] [place] [address] PCP - General Family Practice 06/30/10 documented as of this encounter
--- OUTSIDE RECORDS SUMMARY | 2025-03-25 13:41 | XMS_ITS | Encounter Summary ---
Author Organization [facility] Address [address] [place] [address] Care Team Providers Care Application Support Analyst Name Role Phone Adrienne March DO Primary Care Provider Encounter Details Date Type Department Care Team (Latest Contact Info) Description 05/27/2004 Outpatient [facility] [address] [place] [address] [place] [address] [address] Jose Luis Mcmillan MD [address] [place] [address] JOINT PAIN-SHLDER (Primary Dx) Social History Tobacco Use Types Packs/Day Years Used Date Smoking Tobacco: Never Assessed Comments Unknown Sex and Gender Information Value Date Recorded Sex Assigned at Not on file Legal Sex Female 3:34 AM SALES SERVICE REP Gender Identity Not on file Sexual Orientation Not on file documented as of this encounter Plan of Treatment Not on file documented as of this encounter Visit Diagnoses Diagnosis Pain in joint, shoulder region- Primary documented in this encounter Care Teams Application Support Analyst Relationship Specialty Start Date End Date Adrienne March DO [address] [place] [address] PCP - General Family Practice 06/30/10 documented as of this encounter
--- OUTSIDE RECORDS SUMMARY | 2025-03-25 13:41 | XMS_ITS | Encounter Summary ---
Author Organization [facility] Address [address] [place] [address] Care Team Providers Care Design Drafter Chief Name Role Phone Adrienne March DO Primary Care Provider +[phone]- [phone] Encounter Details Date Type Department Care Team (Latest Contact Info) Description 03/18/2001 Outpatient [facility] Podiatry-[facility] Kimberly [address] [place] [address] Abel Hurtado, DPM NO ADDRESS ON FILE Calcaneal spur (Primary Dx) Social History Tobacco Use Types Packs/Day Years Used Date Smoking Tobacco: Never Assessed Comments Unknown Sex and Gender Information Value Date Recorded Sex Assigned at Not on file Legal Sex Female 3:34 AM AIR COMPRESSOR OPERATOR Gender Identity Not on file Sexual Orientation Not on file documented as of this encounter Plan of Treatment Not on file documented as of this encounter Visit Diagnoses Diagnosis Calcaneal spur- Primary documented in this encounter Care Teams Design Drafter Chief Relationship Specialty Start Date End Date Adrienne March DO [address] [place] [address] PCP - General Family Practice 06/30/10 documented as of this encounter
--- OUTSIDE RECORDS SUMMARY | 2025-03-25 13:41 | XMS_ITS | Encounter Summary ---
Author Organization [facility] Address [address] [place] [address] Care Team Providers Care Ham Curer Name Role Phone Adrienne March DO Primary Care Provider Encounter Details Date Type Department Care Team (Late st Contact Info) Description 09/30/2007 Outpatient Historical [facility] Medicine- [place] [address] [place] [address] Alexei Elizabeth MD [address] [place] [address] Social History Tobacco Use Types Packs/Day Years Used Date Smoking Tobacco: Never Assessed Comments Unknown Sex and Gender Information Value Date Recorded Sex Assigned at Not on file Legal Sex Female 3:34 AM HOSPICE SUPERINTENDENT Gender Identity Not on file Sexual Orientation Not on file documented as of this encounter Plan of Treatment Not on file documented as of this encounter Visit Diagnoses Not on filedocumented in this encounter Care Teams Ham Curer Relationship Specialty Start Date End Date Adrienne March DO [address] [place] [address] PCP - General Family Practice 06/30/10 documented as of this encounter
--- OUTSIDE RECORDS SUMMARY | 2025-03-25 13:41 | XMS_ITS | Encounter Summary ---
Author Organization [facility] Address [address] [place] [address] Care Team Providers Care Fence Supervisor Name Role Phone Adrienne March DO Primary Care Provider Encounter Details Date Type Department Care Team (Latest Contact Info) Description 06/07/2007 Outpatient Historical [facility] Cardiovascular Services [address] [place] [address] Ketan Lew MD [address] [address] Swelling of Limb (Primary Dx) Social History Tobacco Use Types Packs/Day Years Used Date Smoking Tobacco: Never Assessed Comments Unknown Sex and Gender Information Value Date Recorded Sex Assigned at Not on file 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
--- OUTSIDE RECORDS SUMMARY | 2025-03-25 13:41 | XMS_ITS | Encounter Summary ---
Author Organization [facility] Address [address] [place] [address] Care Team Providers Care Component Assembler Name Role Phone Adrienne March DO Primary Care Provider Encounter Details Date Type Department Care Team (Latest Contact Info) Description 06/07/2007 Outpatient Historical [facility] Gen Spec Surg 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
--- OUTSIDE RECORDS SUMMARY | 2025-03-25 13:41 | XMS_ITS | Encounter Summary ---
Author Organization [facility] Address [address] [place] [address] Care Team Providers Care Deputy Attorney General Name Role Phone Adrienne Mrach DO Primary Care Provider Encounter Details Date Type Department Care Team (Latest Contact Info) Description 03/02/2005 Outpatient Historical [facility] Orthopedics- [address] 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
--- OUTSIDE RECORDS SUMMARY | 2025-03-25 13:41 | XMS_ITS | Encounter Summary ---
Author Organization [facility] Address [address] [place] [address] Care Team Providers Care Fish Hatchery Inspector Name Role Phone Adrienne March DO Primary Care Provider Encounter Details Date Type Department Care Team (Latest Contact Info) Description 07/07/2001 Outpatient [facility] Podiatry-[place] [facility] [place] [address] [place] [address] Abel Hurtado, MARCE NO ADDRESS ON FILE Calcaneal spur (Primary Dx); Plantar fibromatosis; Pain in limb Social History Tobacco Use Types Packs/Day Years Used Date Smoking Tobacco: Never Assessed Comments Unknown Sex and Gender Information Value Date Recorded Sex Assigned at Not on file 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
--- OUTSIDE RECORDS SUMMARY | 2025-03-25 13:41 | XMS_ITS | Encounter Summary ---
Author Organization [facility] Address [address] [place] [address] Care Team Providers Care Sales Service Executive Name Role Phone Adrienne March DO Primary Care Provider Encounter Details Date Type Department Care Team (Latest Contact Info) Description 03/08/2007 Outpatient Historical [facility] Gen Spec Surg [place] 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
--- OUTSIDE RECORDS SUMMARY | 2025-03-25 13:41 | XMS_ITS | Encounter Summary ---
Author Organization [facility] Address [address] [place] [address] Care Team Providers Care Financial Advocate Name Role Phone Adrienne March DO Primary Care Provider Encounter Details Date Type Department Care Team (Latest Contact Info) Description 01/26/2005 Outpatient Historical [facility] [place] [address] 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
--- OUTSIDE RECORDS SUMMARY | 2025-03-25 13:41 | XMS_ITS | Encounter Summary ---
Author Organization [facility] Address [address] [place] [address] Care Team Providers Care Aoc Director Intelligence Officer Name Role Phone Adrienne March DO Primary Care Provider Encounter Details Date Type Department Care Team (Latest Contact Info) Description 08/06/2005 Outpatient Historical [facility] Orthopedics- 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
--- OUTSIDE RECORDS SUMMARY | 2025-03-25 13:41 | XMS_ITS | Encounter Summary ---
Author Organization [facility] Address [address] 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
--- OUTSIDE RECORDS SUMMARY | 2025-03-25 13:41 | XMS_ITS | Encounter Summary ---
Author Organization [facility] Address [address] [place] [address] Care Team Providers Care Senior Cyber Intelligence Analyst Name Role Phone Adrienne March DO Primary Care Provider Encounter Details Date Type Department Care Team (Latest Contact Info) Description 02/21/2001 Outpatient [facility] Podiatry-[facility] [place] [address] [place] [address] Abel Hurtado, MARCE NO ADDRESS ON FILE Calcaneal spur (Primary Dx); Tenosynovitis of foot and ankle; Pain in limb Social History Tobacco Use Types Packs/Day Years Used Date Smoking Tobacco: Never Assessed Comments Unknown Sex and Gender Information Value Date Recorded Sex Assigned at Not on file 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
--- OUTSIDE RECORDS SUMMARY | 2025-03-25 13:41 | XMS_ITS | Encounter Summary ---
Author Organization [facility] Address [address] [place] [address] Care Team Providers Care Supervisor Lime Name Role Phone Adrienne March DO Primary Care Provider [phone] Encounter Details Date Type Department Care Team (Latest Contact Info) Description 07/29/2004 Outpatient [facility] [place] [address] [place] [address] Abel uHrtado, MARCE NO ADDRESS ON FILE ACUTE OSTEOMYELITIS-ANKLE ([facility]) (Primary Dx); FX ANKLE NOS-CLOSED; Plantar fibromatosis; DIFFICULTY IN WALKING Social History Tobacco Use Types Packs/Day Years Used Date Smoking Tobacco: Never Assessed Comments Unknown Sex and Gender Information Value Date Recorded Sex Assigned at Not on file 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
--- OUTSIDE RECORDS SUMMARY | 2025-03-25 13:41 | XMS_ITS | Encounter Summary ---
Author Organization [facility] Address [address] [place] [address] Care Team Providers Care Cigarette Carton Sealer Name Role Phone Adrienne March DO Primary Care Provider Encounter Details Date Type Department Care Team (Latest Contact Info) Description 08/01/2004 Outpatient Historical [facility] [address] [place] [address] Wilfredo Michel MD [address] [phone] Muscle weakness (Primary Dx) Social History Tobacco Use Types Packs/Day Years Used Date Smoking Tobacco: Never Assessed Comments Unknown Sex and Gender Information Value Date Recorded Sex Assigned at Not on file 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
--- OUTSIDE RECORDS SUMMARY | 2025-03-25 13:41 | XMS_ITS | Encounter Summary ---
Author Organization [facility] Address [address] [place] [address] Care Team Providers Care Furnace Roaster Name Role Phone Adrienne March DO Primary Care Provider [phone]- [phone] Encounter Details Date Type Department Care Team (Latest Contact Info) Description 03/06/2004 Outpatient [facility] Podiatry-[facility] [place] [address] [place] [address] Abel Hurtado, MARCE NO ADDRESS ON FILE Plantar fibromatosis (Primary Dx); CALCANEAL SPUR; DIFFICULTY IN WALKING Social History Tobacco Use Types Packs/Day Years Used Date Smoking Tobacco: Never Assessed Comments Unknown Sex and Gender Information Value Date Recorded Sex Assigned at Not on file 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
--- OUTSIDE RECORDS SUMMARY | 2025-03-25 13:41 | XMS_ITS | Encounter Summary ---
Author Organization [facility] Address [address] [place] [address] Care Team Providers Care Gusset Stitcher Name Role Phone Adrienne March DO Primary Care Provider [phone]- [phone] Encounter Details Date Type Department Care Team (Latest Contact Info) Description 03/28/2001 Outpatient [facility] Podiatry-[facility] [place] [address] [place] [address] Abel Hurtado, DPM NO ADDRESS ON FILE Calcaneal spur (Primary Dx) Social History Tobacco Use Types Packs/Day Years Used Date Smoking Tobacco: Never Assessed Comments Unknown Sex and Gender Information Value Date Recorded Sex Assigned at Not on file 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
--- OUTSIDE RECORDS SUMMARY | 2025-03-25 13:41 | XMS_ITS | Encounter Summary ---
Author Organization [facility] Address [address] [place] [address] Care Team Providers Care Motor Vehicle Examiner Name Role Phone Adrienne March DO Primary Care Provider Encounter Details Date Type Department Care Team (Latest Contact Info) Description 05/17/2007 Outpatient Historical [facility] Gen Spec Surg 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
--- OUTSIDE RECORDS SUMMARY | 2025-03-25 13:41 | XMS_ITS | Encounter Summary ---
Author Organization [facility] Address [address] [place]: [place] [address] Care Team Providers Care Stylist Assistant Name Role Phone Adrienne March DO Primary Care Provider [phone] Encounter Details Date Type Department Care Team (Late st Contact Info) Description 05/31/2001 Outpatient Historical Umang Urrutia MD [address] [place] [phone] Social History Tobacco Use Types Packs/Day Years Used Date Smoking Tobacco: Never Assessed Comments Unknown Sex and Gender Information Value Date Recorded Sex Assigned at Not on file Legal Sex Female 3:34 AM ELECTION SUPERVISOR Gender Identity Not on file Sexual Orientation Not on file documented as of this encounter Plan of Treatment Not on file documented as of this encounter Visit Diagnoses Not on filedocumented in this encounter Care Teams Stylist Assistant Relationship Specialty Start Date End Date Adrienne March DO [address] [place] [address] PCP - General Family Practice 06/30/10 documented as of this encounter
--- OUTSIDE RECORDS SUMMARY | 2025-03-25 13:41 | XMS_ITS | Encounter Summary ---
Author Organization [facility] Address [address] [place] [address] Care Team Providers Care Product Marketer Name Role Phone Adrienne March DO Primary Care Provider Encounter Details Date Type Department Care Team (Latest Contact Info) Description 06/12/2004 Outpatient [facility] [address] [address] Jose Luis Mcmillan MD [address] [place] [address] JOINT PAIN-SHLDER (Primary Dx) Social History Tobacco Use Types Packs/Day Years Used Date Smoking Tobacco: Never Assessed Comments Unknown Sex and Gender Information Value Date Recorded Sex Assigned at Not on file 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
--- OUTSIDE RECORDS SUMMARY | 2025-03-25 13:41 | XMS_ITS | Encounter Summary ---
Author Organization [facility] Address [address] [place] [address] Care Team Providers Care Pumping Station Engineer Name Role Phone Adrienne March DO Primary Care Provider Encounter Details Date Type Department Care Team (Latest Contact Info) Description 03/08/2007 Outpatient Historical [facility] 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
--- OUTSIDE RECORDS SUMMARY | 2025-03-25 13:41 | XMS_ITS | Encounter Summary ---
Author Organization [facility] Address [address] [place] [address] Care Team Providers Care Wreath Inspector Name Role Phone Adrienne March DO Primary Care Provider Encounter Details Date Type Department Care Team (Latest Contact Info) Description 03/29/2007 Outpatient Historical [facility] Gen Spec Surg 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
--- OUTSIDE RECORDS SUMMARY | 2025-03-25 13:41 | XMS_ITS | Clinical Summary ---
Author Organization [facility] Address [address] [place] [address] Care Team Providers Care Operations Technician Name Role Phone Adrienne March Primary Care Provider [phone] Allergies Active Allergy Reactions Criticality Noted Date Comments Adhesive Tape-Silicones Rash Low 09/05/2020 Amoxicillin-Pot Clavulanate Diarrhea,Abdominal Pain Medium 09/07/2008 Codeine Unknown 04/09/2009 Semaglutide Other (See Comments) 07/13/2018 just didn't feel good Silver Sulfadiazine Swelling Low 12/29/2013 Medications aspirin (ECOTRIN EC) 81 mg Tablet, Delayed Release (E.C.) Take 81 mg by mouth daily. Active fluticasone propionate (FLONASE) 50 mcg/spray [place], Suspension nasal inhalerIndicatio ns:Sinus congestion Administer 1 [place] in each nostril 2 times daily. shake before using 48 mL 05/11/20 Active lancets (OneTouch Delica Plus Lancet) 33 gaugeIndications :Type 2 diabetes mellitus without complication, without long-term current use of insulin ([facility]) USE TO TEST BLOOD SUGAR TWICE DAILY AND NEEDED. 200 Each 7 05/12/20 Active albuterol sulfate HFA 90 mcg/actuation aerosol inhalerIndicatio ns:Chronic respiratory failure with hypoxia and hypercapnia ([facility]),Decrea sed lung sounds Inhale TWO puffs BY [...] polyneuropathy, without long-term current use of insulin ([facility]) Take 1 Capsule (300 mg) by mouth 3 times daily. 270 Capsule 2 12/09/19 24 Active dapagliflozin propanediol (FARXIGA) 5 mg TabletIndication s:Type 2 diabetes mellitus with diabetic polyneuropathy, unspecified whether [facility] insulin use ([facility]),Frail elderly,History of CVA (cerebrovascular accident) without residual deficits Take 1 Tablet (5 mg) by mouth daily. 100 Tablet 3 01/03/20 24 Active cetirizine (ZyrTEC) 10 mg tabletIndication s:Viral upper respiratory infection take 1 tablet by mouth daily 100 Tablet 3 04/06/20 24 Active flash glucose scanning reader (FreeJRapidyle Ailin 2 Teaberry) MiscIndications: Type 2 diabetes mellitus without complication, without long-term current use of insulin ([facility]) Use to monitor glucose continuously. 1 Each [...] 05/31/20 24 Active naloxone (NARCAN) 4 mg/spray [place], Non-Aerosol EMERGENCY USE ONLY: Administer 1 spray (4 mg) in one nostril one time. May repeat in alternating nostrils every 2-3 min until responsive or EMS arrives. 2 Each 3 07/24/20 24 Active flash glucose sensor (FreeStyle Ailin 2 Sensor) KitIndications:T ype 2 diabetes mellitus without complication, without long-term current use of insulin (CMS/HCC) Use to monitor glucose continuously. Replace sensor [...] with long-term current use of insulin (CMS/HCC) Inject 0.5 mL (3 mg) by subcutaneous [...] polyneuropathy, with long-term current use of insulin ([facility]) TAKE ONE TABLET BY MOUTH TWICE DAILY. [...] with saliva. 30 Tablet 03/19/20 25 Active nitrofurantoin (MACROBID) 100 mg capsuleIndicatio ns:Acute cystitis without hematuria Take 1 Capsule (100 mg) by mouth 2 times daily for 7 days. 14 Capsule 03/22/20 25 025 Active bumetanide (BUMEX) 2 mg tabletIndication s:Fluid retention Take 1 to 2 tablets daily. 90 Tablet 1 03/22/20 25 Active furosemide (Lasix) 40 mg tablet Take 1 Tablet (40 mg) by mouth daily. 90 Tablet 4 08/16/20 24 025 Discontinu ed(Alterna te therapy prescribed ) doxycycline hyclate (VIBRAMYCIN) 100 mg tabletIndication s:Folliculitis Take 1 Tablet (100 mg) by mouth 2 times daily for 7 days. 14 Tablet 03/13/20 25 025 cephALEXin (KEFLEX) 500 mg capsuleIndicatio ns:UTI symptoms Take 1 Capsule (500 mg) by mouth 2 times daily for 7 days. 14 Capsule 03/19/20 25 025 Discontinu ed(Alterna te therapy prescribed ) Active Problems Problem Noted Date Diagnosed Date Abdominal lymphadenopathy 07/27/2024 Paroxysmal atrial fibrillation 07/22/2024 Longstanding persistent atrial fibrillation 06/22 History of falling 07/19/2024 Type 2 diabetes mellitus wit h diabetic polyneuropathy, with long-term current use of insulin 03/21/2024 Closed fracture of right distal radius Chronic respiratory failure with hypoxia and hyp [...] Encounters Date Type Department Care Team Description 03/22/2025 2:00 PM CDT Office Visit [facility] [address] [place] [address] December, ELECTROMECHANISMS DESIGN DRAFTER Hypersomnia (Primary Dx); Snoring; Fluid retention 03/22/2025 Results Follow-Up [facility] [address] [place] [address] [place], December, ELECTROMECHANISMS DESIGN DRAFTER POC URINALYSIS DIPSTICK AUTOMATED, URINE CULTURE, LIPASE, Additional followed-up results: 2 03/22/2025 Orders Only [facility] [address] [place] [address] December, ELECTROMECHANISMS DESIGN DRAFTER Acute cystitis without hematuria (Primary Dx) 03/21/2025 Telephone [facility] [address] [place] [address] Adrienne March, DO Medication Refill 03/19/2025 11:40 AM CDT Office Visit [facility] [address] [place] [address] December, ELECTROMECHANISMS DESIGN DRAFTER Acute generalized abdominal pain (Primary Dx); Nausea and vomiting, unspecified vomiting type; UTI symptoms; Drug-induced constipation 03/16/2025 Telephone [place] [address] [place] [address] December, ELECTROMECHANISMS DESIGN DRAFTER Medication Review 03/16/2025 Telephone [facility] [place] [address] [place] [address] Adrienne March, Clinical Consult Before Scheduling 03/13/2025 10:00 AM CDT Office Visit [facility] [address] [place] [address] December, ELECTROMECHANISMS DESIGN DRAFTER History of falling (Primary Dx); Folliculitis; Fluid retention 03/09/2025 Telephone [facility] [address] [place] [address] Adrienne March, Information 03/06/2025 3:40 PM CDT Office Visit [facility] [address] [place] [address] December, ELECTROMECHANISMS DESIGN DRAFTER Fluid retention (Primary Dx); Acute foot pain, left 03/06/2025 Telephone [place] [address] [place] [address] Adrienne March DO Clinical Consult Before Scheduling 02/15/2025 Orders Only [facility] [address] [place] [address] Adrienne March DO Type 2 diabetes mellitus with diabetic polyneuropathy, with long-term current use of insulin ([facility]) 02/13/2025 External Device Data STL ABSTRACTION Provider, Abstract 02/01/2025 Telephone [facility] [address] [place] [address] Adrienne March DO Patient Communication 01/18/2025 2:20 PM CDT Office Visit [facility] [address] [place] [address] Adrienne March DO Type 2 diabetes mellitus with diabetic polyneuropathy, with long-term current use of insulin (CMS/HCC) (Primary Dx); Degenerative spondylolisthesis; DDD (degenerative disc disease), lumbar; Panlobular emphysema (CMS/HCC); Paroxysmal atrial fibrillation (CMS/HCC); Chronic respiratory failure with hypoxia and hypercapnia (CMS/HCC); Morbid obesity with body mass index of 40.0-49.9 (CMS/[facility]); Essential hypertension; Hypothyroidism due to acquired atrophy [...] disease, without long-term current use of insulin ([facility]/HCC) 01/16/2025 Refill [facility] [address] [place] [address] [place], December, ELECTROMECHANISMS DESIGN DRAFTER Post-nasal drip 01/12/2025 Refill [facility] [address] [place] [address] Adrienne March DO Degenerative spondylolisthesis; DDD (degenerative disc disease), lumbar 01/12/2025 Refill [facility] [address] [facility] [place] [address] [place], December, ELECTROMECHANISMS DESIGN DRAFTER Type 2 diabetes mellitus with diabetic polyneuropathy, with long-term current use of insulin ([facility]) 01/12/2025 Refill [facility] [address] [place] [address] Adrienne March, Epigastric pain 12/28/2024 Refill [facility] [address] [facility] [place] [address] Adrienne March, Degenerative spondylolisthesis; DDD (degenerative disc disease), lumbar 12/26/2024 Refill [facility] [address] [place] [address] Adrienne March, Degenerative spondylolisthesis; DDD (degenerative disc [...] on file Legal Sex Female 6:27 AM PRODUCT INFO SPECIALIST Gender Identity Not on file Sexual [...] Mass Index 41.52 03/22/2025 1:46 PM CDT Plan of Treatment Upcoming Encounters Date Type Department Care Team (Late st Contact Info) Description 03/29/2025 10:40 AM CDT Office Visit [facility] [place] [address] [address] December, ELECTROMECHANISMS DESIGN DRAFTER [address] [address] 05/15/2025 8:40 AM CDT Office Visit [facility] [address] [facility] [place] [address] AncaAdrienne forbes, DO [address] [facility] [place] [address] 07/25/2025 10:00 AM PRODUCT INFO SPECIALIST Office Visit [facility] [address] [facility] [place] [address] Adrienne March, DO [address] [facility] [place] [address] Health Maintenance Due Date Last Done Comments ZOSTER VACCINE (1 of 2) 1997 OSTEOPOROSIS SCREENING 07/31/2020 5, 07/30/2015, 07/30/2015, Additional history exists RSV VACCINE (60+ or ) (1 - 1-dose 75+ series) 2022 COVID-19 Vaccine (2 - 2023-2 5 season) 2024 01/29/2021 [place]) Preventative Visit/Annual Wellness Visit 09/20/2024 05/05/2024, 04/26/2023, 12/29/2021 LDL CHOLESTEROL ANNUAL 03/17/2025 4, 12/09/2023, 08/25/2023, Additional history exists DIABETES ANNUAL RETINAL EXAM 03/30/202507/2024, 06/04/2020, 06/04/2020, Additional history exists DIABETES HBA1C Q 6 MONTHS 04/04/20252024, 03/17/2024, 12/09/2023, Additional history exists INFLUENZA VACCINE (#1) 2025 4, 08/25/2023, 08/06/2022, Additional history exists DIABETES ANNUAL [...] years Discontinued Medical Devices Implanted Type Area Catalyst Impregnator Device Identifier Shelf Expiration Date Model / Serial / Lot Cement Simplex Hvisc 6194-1-010 - [id number] Implanted:01/2020 by Marco A Lewis MD (Quantity not on file) Cement Left: Knee JAMSHID- [employer] INC [id number] 03/19/2021 6194-1-010 / / [id number] Cement Simplex Hvisc 6194-1-010 - [id number] Implanted:01/2020 by Marco A Lewis MD (Quantity not on file) Cement Left: Knee JAMSHID- [employer] [id number] 03/19/2021 6194-1-010 / / [id number] Hemostatic Surgifoam 1gm 1977 [id number] Implanted:Qty : 1 on 06/21/2020 by Jan Hoffman MD Hemostatic N/A: Back J&J- [employer] [id number] 10/26/20211977 / [id number] Comp Fem Attune Cr Cmnt Sz4 1504-00-104 - [id number] Implanted:Qty : 1 on 11/23/2019 by Marco A Lewis MD Knee Left: Knee J[employer]J- [employer] [id number] 09/19/2029 [id number] / / [id number] Comp Tib Attune Fb Cmnt Sz5 1506-70-005 - [id number] Implanted:Qty : 1 on 11/23/2019 by Marco A Lewis MD Knee Left: Knee J&J- [employer] [id number] 08/19/2029 [id number] / / [id number] Insert Attune Fb Cr Sz4 6mm 1516-20-406 - [id number] Implanted:Qty : 1 on 11/23/2019 by Marco A Lewis MD Knee Left: Knee J[employer]J- [employer] [id number] 03/19/2023 [id number] / / [id number] Vince Solera Crv Ti 5.5x30mm [id number] - [id number] Implanted:Qty : 2 on 06/21/2020 by Jan Hoffman MD Vince N/A: Back MEDTRONIC- SOFAMOR DANEK 06/21/2021 [id number] / / [id number] Screw Cdh 6.5x35mm 5.5/6.0 Mas Cc [id number] - [id number] Implanted:Qty : 2 on 06/21/2020 by Jan Hoffman MD Screw N/A: Back [employer]- SO[employer]ANEK 06/21/2021 [id number] / / [id number] Screw Cdh 6.5x45mm 5.5/6.0 Mas Cc [id number] - [id number] Implanted:Qty : 2 on 06/21/2020 by Jan Hoffman MD Screw N/A: Back [employer]- SO[employer]K 06/21/2021 [id number] / / [id number] Screw Solera 5.5/6.0 Breakoff [id number] - [id number] Implanted:Qty : 4 on 06/21/2020 by Jan Hoffman MD Screw N/A: Back [employer]- SOFAMOR [employer]ANEK 06/21/2021 [id number] / / [id number] Putty Dbx Dbm 1ml 88764 - [id number] Implanted:Qty : 1 on 06/21/2020 by Jan Hoffman MD Tissue N/A: Back MUSCULOSKELETAL TRANSPLANT FOU 07/21/2021 [id number] / [id number] Readigraft Canc Chips 15ml Can15 14bp - [id number] Implanted:Qty : 1 on 06/21/2020 by Jan Hoffman MD Tissue N/A: Back LIFENET 08/07/2024 CAN15 14BP / / [id number] Procedures Procedure Name Priority Date/Time Associated Diagnosis Comments CBC WITH DIFFERENTIAL Routine 03/19/2025 11:36 AM CDT Acute generalized abdominal pain Nausea and vomiting, unspecified vomiting type COMPREHENSIVE METABOLIC PANEL Routine 03/19/2025 11:36 AM CDT Acute generalized abdominal pain Nausea and vomiting, unspecified vomiting type LIPASE Routine 03/19/2025 11:36 AM CDT Acute generalized abdominal pain URINE CULTURE Routine 03/19/2025 11:30 AM CDT UTI symptoms POC URINALYSIS DIPSTICK AUTOMATED Routine 03/19/2025 11:23 AM CDT UTI symptoms MICROALBUMIN/CREATININ E RATIO, RANDOM UR Routine 10/23/2024 5:02 PM PRODUCT INFO SPECIALIST HEMOGLOBIN A1C Routine 10/05/2024 1:21 PM PRODUCT INFO SPECIALIST Type 2 diabetes mellitus without complication, without long-term current use of insulin ([facility]) DIABETES EYE EXAM Routine 03/30/2024 10:35 AM CDT LIPID PANEL Routine 03/17/2024 2:16 PM CDT Type 2 diabetes mellitus with diabetic polyneuropathy, with long-term current use of insulin ([facility]) OCCULT BLOOD IMMUNOASSAY, COLORECTAL SCREEN Routine 03/31/2023 10:41 AM CDT DIABETES FOOT EXAM 12/23/2020 12:00 AM CDT COLON CANCER SCREEN, STOOL DNA Routine 05/17/2019 4:15 PM CDT XR DEXA BONE DENSITY AXIAL 1 OR MORE SITES Routine 07/30/2015 1:58 PM PRODUCT INFO SPECIALIST Postmenopausal atrophic vaginitis from Last 3 Months or Most Recently Relevant to Health Maintenance Results * CBC WITH DIFFERENTIAL (03/19/2025 11:36 AM CDT) [facility] WBC TNP [place] [facility] Comment: TEST NOT PERFORMED No lavender-top tube received. Test Performed at: [facility] [address] [place] [address] Isabel Colby MD Blood 03/19/2025 11:3 6 AM CDT 03/20/2025 3:24 AM CDT December [facility] HEMATOLOGY ORDERABLES Final Resu lt Performing Organization Address City/[facility]/ZIP Co de Phone Number [facility] [phone] [facility] [address] * LIPASE (03/19/2025 11:36 AM CDT) [facility] LIPASE 24 7 - 60 U/L [facility] Comment: Test Performed at: [facility] [address] Isabel Colby MD Blood 03/19/2025 11:3 6 AM CDT 03/20/2025 3:24 AM CDT [facility] Final Resul t Performing Organization Address City/[facility]/ZIP Co de Phone Number [facility] [phone] [facility] [address] [place] [address] * (ABNORMAL) COMPREHENSIVE METABOLIC PANEL (03/19/2025 11:36 AM CDT) [facility] GLUCOSE 122(H) 65 - 99 mg/dL [facility] [...] [facility] Comment: Test Performed at: [facility] [address] Isabel Colby MD Blood 03/19/2025 11:3 6 AM CDT 03/20/2025 3:24 AM CDT December [facility] CHEMISTRY ORDERABLES Final Resul t [facility] [phone] [facility] [address] * (ABNORMAL) URINE CULTURE (03/19/2025 11:30 AM CDT) URINE CULTURE SEE NOTE(A) [facility] Comment: CULTURE, URINE, ROUTINE Micro Number: [id number] Test Status: Final Specimen Source: Urine, clean [...] cefuroxime, cephalexin and loracarbef. Test Performed at: [facility] [address] [place] [address] Isabel Colby MD Urine URINE SPECIMEN OBTAINED BY CLEAN CATCH PROCEDURE / Unknown 03/19/2025 11:30 AM CDT 03/20/2025 5:06 AM CDT December [facility] MICROBIOLOGY - GENERAL ORDERABLE S Final Result [facility] [phone] [facility] [address] [place] [address] * (ABNORMAL) POC URINALYSIS DIPSTICK AUTOMATED (03/19/2025 11:23 AM CDT) COLOR UA POC Yellow Pale to Dark Yellow [facility] CLARITY UA POC Clear Clear, Other ME [facility] GLUCOSE UA POC Negative Negative, Normal [facility] BILIRUBIN UA POC Negative Negative [facility] KETONES UA POC Negative Negative [facility] SPECIFIC GRAVITY UA POC 1.010 1.000 - 1.030 [facility] BLOOD UA POC Negative Negative [facility] C [facility]IC [facility] PH UA POC 5.5 5.0 - 8.0 [facility] CLIN IC [facility] PROTEIN UA POC Negative Negative [facility] UROBILINOGEN UA POC 0.2 <2.0 mg/dL [facility] NITRITE UA POC Negative Negative [facility] LEUKOCYTE ESTERASE UA POC Trace(A) Negative [facility] KIT LOT NUMBER POC 312,301 [facility] KIT EXP DATE POC [id number] [facility] Urine 03/19/2025 11:2 3 AM CDT December ELECTROMECHANISMS DESIGN DRAFTER POINT OF CARE TESTING Final Resu lt [facility] CLIA# [id number] [address] [place] [address] * (ABNORMAL) MICROALBUMIN/CREATININE RATIO, RANDOM UR (10/23/2024 5:02 PM PRODUCT INFO SPECIALIST) Creatinine, Urine 60 20 - 275 mg/dL [facility] MICROALBUMIN, URINE 2.0 See Note: mg/dL [facility] Comment: Reference Range: Reference Range Not established MICROALBUMIN/CREAT RATIO, UR 33(H) <30 mg/g creat [facility] Comment: The ADA defines abnormalities in albumin excretion as follows: Albuminuria Category Result (mg/g creatinine) Normal to Mildly increased <30 Moderately increased 30-299 Severely increased > OR = 300 The ADA recommends that at least two of three specimens collected within a 3-6 month period be abnormal before considering a patient to be within a diagnostic category. Test Performed at: [facility] [id number] [place] [address] [place] [address] Isabel Colby MD Urine URINE SPECIMEN OBTAINED BY CLEAN CATCH PROCEDURE / Unknown 10/23/2024 5:02 PM PRODUCT INFO SPECIALIST 10/24/2024 2:46 AM PRODUCT INFO SPECIALIST [facility] URINE ORDERABLES Final Result Performing Organization Address City/[facility] Co de Phone Number [facility] [phone] [address] [place] [address] * (ABNORMAL) HEMOGLOBIN A1C (10/05/2024 1:21 PM PRODUCT INFO SPECIALIST) HEMOGLOBIN A1C 8.6(H) <5.7 % of total Hgb [facility] Comment: For someone without known diabetes, [...] children. ESTIMATED AVERAGE GLUCOSE (MG/DL) 200 mg/dL [facility] ESTIMATED AVERAGE GLUCOSE (MMOL/L) 11.1 mmol/L [facility] Comment: FASTING:UNKNOWN FASTING: UNKNOWN Test Performed at: [facility] [address] [place] [address] [place] [address] Isabel Colby MD Blood 10/05/2024 1:21 PM PRODUCT INFO SPECIALIST 10/05/2024 1:22 PM PRODUCT INFO SPECIALIST [facility] CHEMISTRY ORDERABLES Final Resul t Performing Organization Address City/State/[facility] Co de Phone Number [facility] [phone] [facility] [address] [place] [address] * (ABNORMAL) DIABETES EYE EXAM (03/30/2024 10:35 AM CDT) us Abstract Provider HEALTH MAINTENANCE Edited Resu lt - Final * LIPID PANEL (03/17/2024 2:16 PM CDT) CHOLESTEROL 172 <200 mg/dL [facility] HDL 56 > OR = 50 mg/dL [facility] TRIGLYCERIDE 104 <150 mg/dL [facility] LDL CALCULATED 96 mg/dL (calc) [facility] Comment: Reference range: <100 Desirable range <100 mg/dL for primary prevention; <70 mg/dL for patients with CHD or diabetic patients with > or = 2 CHD risk factors. LDL-C is now calculated using the Vimal-Patel calculation, which is a validated novel method providing better accuracy than the Friedewald equation in the estimation of LDL-C. Vimal SS et al. NATALIIA. 2013;310(19): 6395-7497 (http://education.[employer] Plan/faq/HSG530) CHOL/HDL RATIO 3.1 <5.0 (calc) [facility] NON-HDL CHOLESTEROL 116 <130 mg/dL (calc) [facility] Comment: For patients with diabetes plus 1 major ASCVD risk factor, treating to a non-HDL-C goal of <100 mg/dL (LDL-C of <70 mg/dL) is considered a therapeutic option. Test Performed at: [facility] [address] [facility] [place] [address] Isabel Colby MD Blood 03/17/2024 2:16 PM CDT 03/18/2024 4:23 AM CDT Adrienne March DO CHEMISTRY ORDERABLES Final Result [facility] [phone] [facility] [address] [place] [address] * OCCULT BLOOD IMMUNOASSAY, COLORECTAL SCREEN (03/31/2023 10:41 AM CDT) Stool STOOL SPECIMEN / Unknown us Abstract Provider BODY FLUIDS AND STOOLS Final R esult * HM DIABETES FOOT EXAM (12/23/2020 12:00 AM CDT) Adrienne March DO HEALTH MAINTENANCE Edited R esult - Final * COLON CANCER SCREEN, STOOL DNA (05/17/2019 4:15 PM CDT) COLOGUARD RESULT Negative Not Applicable 05/24/2019 3:08 PM CDT [facility] Comment: A negative result indicates a low [...] screened with both Cologuard and colonoscopy. (Linette Emerson al, N Engl J Med 2014;370(14):4020-3764) COLOGUARD RE-SCREENING RECOMMENDATION: Periodic routine colorectal cancer screening is an important part of preventive healthcare for asymptomatic persons at average risk for colorectal cancer. Following a negative Cologuard result, the [place] [employer] and U.S. Multi-Society Task Force screening guidelines recommend a Cologuard re-screening interval of 3 years. References: [place] [employer] (ACS). Colorectal cancer prevention and early detection. [place], [place]: [place] [employer]; [updated 2015Jan 11]. https://www.cancer.org/cancer/cuytk-mypenv-ccgbuq/rlupegaum-lknstxnzt-gzcjjdp/ac s-rec ommendations.html. Accessed May 20, 2018; Héctor DK, Marleny CR, [place] i[employer]tchK, Colorectal Cancer Screening: Recommendations for Physicians and Patients from the U.S. Multi-Society Task Force on Colorectal Cancer Screening, Am J Gastroenterology 2017; 112:4149-0675. Test Type: Composite algorithmic analysis of stool [...] can be accessed at the following location: www.[employer].Heyy/results. Additional description of the Cologuard test process, warnings and precautions can be found at www.cologuardtest.com. Rx Only. Stool STOOL SPECIMEN / Unknown 05/17/2019 4:15 PM CDT 05/18/2019 11:04 PM CDT us Adrienne March DO BODY FLUIDS AND STOOLS Rosetta terrazas Result [facility] CLIA # [id number] [address] , [address] [place] [address] * XR DEXA BONE DENSITY AXIAL 1 OR MORE SITES (07/30/2015 1:58 PM PRODUCT INFO SPECIALIST) Anatomical Region Laterality Modality Other Narrative 07/31/2015 8:08 AM PRODUCT INFO SPECIALIST PROCEDURE DEXA BONE DENSITY, 30 July 2015 [...] Recently Relevant to Health Maintenance Insurance MEDICAID [place] [employer] HMO DSNP * Guarantor: FLORENCIOMARY Coyle Account Type Relation to Patient Date of Phone Billing Address Personal/Family [address] [place] [phone] RX WE[employer]ER PLANS (INTERNAL) [facility] Medicare Part D Advance Directives For more information, please contact: [phone] * Full Code (Latest Code Status on File) Date Activated Date Inactivated Comments 07/20/2024 3:46 AM 07/24/2024 6:49 PM Care Teams Operations Technician Relationship Specialty Start Date End Date Adrienne March DO [address] [facility] [place] [place] [address] PCP - General Family Practice 06/30/10
--- OUTSIDE RECORDS SUMMARY | 2025-03-25 13:41 | XMS_ITS | Encounter Summary ---
Author Organization [facility] Address [address] [place] [address] Care Team Providers Care Mold Holder Name Role Phone Adrienne March DO Primary Care Provider [phone] Encounter Details Date Type Department Care Team (Latest Contact Info) Description 07/29/2004 Outpatient Historical [facility] Imaging Services-[place] [address] [place] [phone] Abel Hurtado, DPM NO ADDRESS ON FILE Pain in limb (Primary Dx) Social History Tobacco Use Types Packs/Day Years Used Date Smoking Tobacco: Never Assessed Comments Unknown Sex and Gender Information Value Date Recorded Sex Assigned at Not on file Legal Sex Female 3:34 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
--- OUTSIDE RECORDS SUMMARY | 2025-03-25 13:41 | XMS_ITS | Encounter Summary ---
Author Organization [facility] Address [address] [place] [address] Care Team Providers Care Hospital Liaison Name Role Phone Adrienne March DO Primary Care Provider Encounter Details Date Type Department Care Team (Late st Contact Info) Description 09/28/2007 Outpatient Historical [facility] Medicine- [place] [address] [place] [address] Alexei Elizabeth MD [address] [place] [address] Social History Tobacco Use Types Packs/Day Years Used Date Smoking Tobacco: Never Assessed Comments Unknown Sex and Gender Information Value Date Recorded Sex Assigned at Not on file 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
--- OUTSIDE RECORDS SUMMARY | 2025-03-25 13:41 | XMS_ITS | Encounter Summary ---
Author Organization [facility] Address [address] [place] [address] Care Team Providers Care Fleet Administrative Assistant Name Role Phone Adrienne March DO Primary Care Provider Encounter Details Date Type Department Care Team (Latest Contact Info) Description 02/25/2006 Outpatient Historical [facility] Orthopedics- 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
--- OUTSIDE RECORDS SUMMARY | 2025-03-25 13:41 | XMS_ITS | Encounter Summary ---
Author Organization [facility] Address [address] [place] [address] Care Team Providers Care Mayonnaise Mixer Name Role Phone Adrienne March DO Primary Care Provider Encounter Details Date Type Department Care Team (Latest Contact Info) Description 01/08/2004 Outpatient [facility] [address] [place] [address] [address] Jose Luis Mcmillan MD [address] [place] [address] NEURALGIA/NEURITIS NOS (Primary Dx) Social History Tobacco Use Types Packs/Day Years Used Date Smoking Tobacco: Never Assessed Comments Unknown Sex and Gender Information Value Date Recorded Sex Assigned at Not on file 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
--- OUTSIDE RECORDS SUMMARY | 2025-03-25 13:41 | XMS_ITS | Encounter Summary ---
Author Organization [facility] Address [address] [place] [address] Care Team Providers Care Rice Dryer Mechanic Name Role Phone Adrienne March DO Primary Care Provider Encounter Details Date Type Department Care Team (Latest Contact Info) Description 04/15/2005 Outpatient Historical [facility] Orthopedics- [address] [place] 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
--- OUTSIDE RECORDS SUMMARY | 2025-03-25 13:41 | XMS_ITS | Encounter Summary ---
Author Organization [facility] Address [address] [place] [address] Care Team Providers Care Seo Marketing Specialist Name Role Phone Adrienne March DO Primary Care Provider [phone] Encounter Details Date Type Department Care Team (Latest Contact Info) Description 04/04/2001 Outpatient [facility] Podiatry-[facility] [place] [address] [place] [phone] Abel Hurtado, DPM NO ADDRESS ON FILE Calcaneal spur (Primary Dx) Social History Tobacco Use Types Packs/Day Years Used Date Smoking Tobacco: Never Assessed Comments Unknown Sex and Gender Information Value Date Recorded Sex Assigned at Not on file 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
--- OUTSIDE RECORDS SUMMARY | 2025-03-25 13:41 | XMS_ITS | Encounter Summary ---
Author Organization [facility] Address [address] [place] [address] Care Team Providers Care Vegetable Harvest Machine Operator Name Role Phone Adrienne March DO Primary Care Provider Encounter Details Date Type Department Care Team (Latest Contact Info) Description 11/23/2005 Outpatient Historical [facility] Orthopedics- [address] [place] 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 Gender Identity Not on file Sexual Orientation Not on file documented as of this encounter Plan of Treatment Not on file documented as of this encounter Visit Diagnoses Diagnosis Stiffness of joint, not elsewhere classified, forearm- Primary Pain in joint, forearm Pain in joint, lower leg Healed fx follow-up Treatment of healed fracture follow-up examination documented in this encounter Care Teams Vegetable Harvest Machine Operator Relationship Specialty Start Date End Date Adrienne March DO [address] [place] [phone] PCP - General Family Practice 06/30/10 documented as of this encounter
--- OUTSIDE RECORDS SUMMARY | 2025-03-25 13:41 | XMS_ITS | Encounter Summary ---
Author Organization [facility] Address [address] [place] [address] Care Team Providers Care Manhole Builder Name Role Phone Adrienne March DO Primary Care Provider [phone] Encounter Details Date Type Department Care Team (Latest Contact Info) Description 06/24/2001 Outpatient Historical [facility] Dipak Malagon MD NO ADDRESS ON FILE Carpal tunnel syndrome (Primary Dx) Social History Tobacco Use Types Packs/Day Years Used Date Smoking Tobacco: Never Assessed Comments Unknown Sex and Gender Information Value Date Recorded Sex Assigned at Not on file 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
--- OUTSIDE RECORDS SUMMARY | 2025-03-25 13:41 | XMS_ITS | Encounter Summary ---
Author Organization [facility] Address [address] [place] [address] Care Team Providers Care Ambulance Attendant Name Role Phone Adrienne March DO Primary Care Provider Encounter Details Date Type Department Care Team (Latest Contact Info) Description 08/11/2004 Outpatient Historical [facility] Nuclear Med Services-[place] [address] [place] [phone] Leanne Smith DO [address] [place] [phone] JOINT PAIN-ANKLE (Primary Dx) Social History Tobacco Use Types Packs/Day Years Used Date Smoking Tobacco: Never Assessed Comments Unknown Sex and Gender Information Value Date Recorded Sex Assigned at Not on file 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
--- OUTSIDE RECORDS SUMMARY | 2025-03-25 13:41 | XMS_ITS | Encounter Summary ---
Author Organization [facility] Address [address] [place] [address] Care Team Providers Care Regulatory Submissions Specialist Name Role Phone Adrienne March DO Primary Care Provider Encounter Details Date Type Department Care Team (Latest Contact Info) Description 03/26/2005 Outpatient Historical [facility] Orthopedics- [address] [place] 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
--- OUTSIDE RECORDS SUMMARY | 2025-03-25 13:41 | XMS_ITS | Encounter Summary ---
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
--- OUTSIDE RECORDS SUMMARY | 2025-03-25 13:41 | XMS_ITS | Encounter Summary ---
Author Organization [facility] Address [address] [place] [address] Care Team Providers Care Code Machine Operator Name Role Phone Adrienne Macrh DO Primary Care Provider Encounter Details Date Type Department Care Team (Late st Contact Info) Description 08/01/2004 Outpatient [facility] [address] [place] [address] [place] [address] Wilfredo Michel MD [address] [phone] Social History Tobacco Use Types Packs/Day Years Used Date Smoking Tobacco: Never Assessed Comments Unknown Sex and Gender Information Value Date Recorded Sex Assigned at Not on file 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
--- OUTSIDE RECORDS SUMMARY | 2025-03-25 13:41 | XMS_ITS | Encounter Summary ---
Author Organization [facility] Address [address] [place] [address] Care Team Providers Care Infection Prevention Practitioner Name Role Phone Adrienne March Primary Care Provider Encounter Details Date Type Department Care Team (Late st Contact Info) Description 10/20/2017 Ancillary Orders [facility] [address] [place] [address] Deanne Banks, [facility] [address], [place] [phone] Fall (on)(from) incline, initial encounter; Acute bilateral [...] on file Legal Sex Female 3:34 AM CHAIRMAN Gender Identity Not on file Sexual Orientation [...] 2 OR 3 VW (10/20/2017 5:18 PM CHAIRMAN) Anatomical Region Laterality Modality Spine Computed Radiogr aphy 10/20/2017 5:19 PM CHAIRMAN Impressions 10/21/2017 10:00 AM CHAIRMAN IMPRESSION: Please see below. Exam: [id number] LUMBAR [...] age-indeterminate L1 compression deformity. us Deanne Banks [employer] MERCHANT DIAGNOSTIC IMAGING ORDERABLES Final Result documented in this encounter Visit Diagnoses Diagnosis Fall (on)(from) incline, initial encounter Acute bilateral low back pain without sciatica Fall (on)(from) incline, initial encounter Acute bilateral low back pain without sciatica documented in this encounter Additional Health Concerns Assessment Noted Time PHQ-9 Depression Total Score: 3 06/11/20 14 9:00 AM CDT documented as of this encounter Care Teams Infection Prevention Practitioner Relationship Specialty Start Date End Date Adrienne March DO [address] [place] [address] PCP - General Family Practice 06/30/10 documented as of this encounter
--- OUTSIDE RECORDS SUMMARY | 2025-03-25 13:41 | XMS_ITS | Encounter Summary ---
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 Gender Identity Not on file Sexual [...] CARE TESTING Final Result Performing Organization Address [facility] Co de Phone Number INTERFACE SYSTEM Refer to clinic/hospital department * (ABNORMAL) POC GLUCOSE (02/02/2005 6:32 AM CDT) GLUCOSE POC 105(H) 60 - 100 mg/dL INTERFACE SYSTEM 02/02/2005 6:32 AM CDT us Nakul Nino MD POINT OF CARE TESTING Final Result Performing Organization Address [facility] Phone Number INTERFACE SYSTEM Refer to clinic/hospital department * POC GLUCOSE (02/01/2005 9:17 PM CDT) GLUCOSE POC 95 60 - 100 mg/dL INTERFACE SYSTEM 02/01/2005 9:17 PM CDT Result Carrie Nino MD POINT OF CARE TESTING Final Result Performing Organization Address [facility] Co de Phone Number INTERFACE SYSTEM Refer to clinic/hospital department * POC GLUCOSE (02/01/2005 4:55 PM CDT) GLUCOSE POC 85 60 - 100 mg/dL INTERFACE SYSTEM 02/01/2005 4:55 PM CDT Result Carrie Nino MD POINT OF CARE TESTING Final Result Performing Organization Address [facility] de Phone Number INTERFACE SYSTEM Refer to clinic/hospital department * POC GLUCOSE (02/01/2005 11:51 AM CDT) GLUCOSE POC 96 60 - 100 mg/dL INTERFACE SYSTEM 02/01/2005 11:5 1 AM CDT Nakul Nino MD POINT OF CARE TESTING Final Result Performing Organization Address [facility] de Phone Number INTERFACE SYSTEM Refer to clinic/hospital department * (ABNORMAL) POC GLUCOSE (02/01/2005 5:40 AM CDT) GLUCOSE POC 118(H) 60 - 100 mg/dL INTERFACE SYSTEM 02/01/2005 5:40 AM CDT Nakul Nino MD POINT OF CARE TESTING Final Result Performing Organization Address [facility] Phone Number INTERFACE SYSTEM Refer to clinic/hospital department * (ABNORMAL) POC GLUCOSE (01/31/2005 9:34 PM CDT) GLUCOSE POC 108(H) 60 - 100 mg/dL INTERFACE SYSTEM 01/31/2005 9:34 PM CDT Nakul Nino MD POINT OF CARE TESTING Final Result Performing Organization Address [facility] Phone Number INTERFACE SYSTEM Refer to clinic/hospital department * POC GLUCOSE (01/31/2005 4:59 PM CDT) GLUCOSE POC 93 60 - 100 mg/dL INTERFACE SYSTEM 01/31/2005 4:59 PM CDT us Nakul Nino MD POINT OF CARE TESTING Final Result Performing Organization Address [facility] Co de Phone Number INTERFACE SYSTEM Refer to clinic/hospital department * POC GLUCOSE (01/31/2005 11:04 AM CDT) GLUCOSE POC 100 60 - 100 mg/dL INTERFACE SYSTEM 01/31/2005 11:0 4 AM CDT us Nakul Nino MD POINT OF CARE TESTING Final Result Performing Organization Address [facility] Co de Phone Number INTERFACE SYSTEM Refer to clinic/hospital department * (ABNORMAL) POC GLUCOSE (01/31/2005 5:41 AM CDT) GLUCOSE POC 106(H) 60 - 100 mg/dL INTERFACE SYSTEM 01/31/2005 5:41 AM CDT us Nakul Nino MD POINT OF CARE TESTING Final Result Performing Organization Address [facility] Phone Number INTERFACE SYSTEM Refer to clinic/hospital department * (ABNORMAL) POC GLUCOSE (01/30/2005 8:52 PM CDT) GLUCOSE POC 169(H) 60 - 100 mg/dL INTERFACE SYSTEM 01/30/2005 8:52 PM CDT us Nakul Nino MD POINT OF CARE TESTING Final Result Performing Organization Address [facility] Phone Number INTERFACE SYSTEM Refer to clinic/hospital department * POC GLUCOSE (01/30/2005 6:02 PM CDT) GLUCOSE POC 82 60 - 100 mg/dL INTERFACE SYSTEM 01/30/2005 6:02 PM CDT us Nakul Nino MD POINT OF CARE TESTING Final Result Performing Organization Address [facility] Co de Phone Number INTERFACE SYSTEM Refer to clinic/hospital department * (ABNORMAL) POC GLUCOSE (01/30/2005 10:54 AM CDT) GLUCOSE POC 126(H) 60 - 100 mg/dL INTERFACE SYSTEM 01/30/2005 10:5 4 AM CDT us Nakul Nino MD POINT OF CARE TESTING Final Result Performing Organization Address [facility] de Phone Number INTERFACE SYSTEM Refer [...] ORDERABLES Final R esult Performing Organization Address [facility] de Phone Number INTERFACE SYSTEM Refer [...] HEMATOLOGY ORDERABLES Final Result Performing Organization Address [facility] Phone Number INTERFACE SYSTEM Refer to clinic/hospital department * (ABNORMAL) POC GLUCOSE (01/30/2005 5:20 AM CDT) GLUCOSE POC 132(H) 60 - 100 mg/dL INTERFACE SYSTEM 01/30/2005 5:20 AM CDT Nakul Nino MD POINT OF CARE TESTING Final Result Performing Organization Address [facility] Phone Number INTERFACE SYSTEM Refer to clinic/hospital department * (ABNORMAL) POC GLUCOSE (01/29/2005 8:52 PM CDT) GLUCOSE POC 149(H) 60 - 100 mg/dL INTERFACE SYSTEM 01/29/2005 8:52 PM CDT Nakul Nino MD POINT OF CARE TESTING Final Result Performing Organization Address [facility] Phone Number INTERFACE SYSTEM Refer to clinic/hospital [...] CARE TESTING Final Result Performing Organization Address [facility] de Phone Number INTERFACE SYSTEM Refer [...] HEMATOLOGY ORDERABLES Final Result Performing Organization Address [facility] Phone Number INTERFACE SYSTEM Refer to clinic/hospital [...] ORDERABLES Final R esult Performing Organization Address [facility] Phone Number INTERFACE SYSTEM Refer to clinic/hospital department * (ABNORMAL) POC GLUCOSE (01/29/2005 6:03 AM CDT) GLUCOSE POC 202(H) 60 - 100 mg/dL INTERFACE SYSTEM 01/29/2005 6:03 AM CDT Nakul Nino MD POINT OF CARE TESTING Final Result Performing Organization Address [facility] de Phone Number INTERFACE SYSTEM Refer [...] COM Fi nal Result Performing Organization Address [facility] Co de Phone Number INTERFACE SYSTEM [...] CARE TESTING Final Result Performing Organization Address [facility] Phone Number INTERFACE SYSTEM Refer to clinic/hospital department * POC GLUCOSE (01/28/2005 3:07 PM CDT) GLUCOSE POC 91 60 - 100 mg/dL INTERFACE SYSTEM COMMENT POC Follow prtocol INTERFACE SYSTEM 01/28/2005 3:07 PM CDT Nakul Nino MD POINT OF CARE TESTING Final Result Performing Organization Address [facility] Phone Number INTERFACE SYSTEM Refer to clinic/hospital department * (ABNORMAL) HEMOGLOBIN A1C (01/28/2005 1:50 PM CDT) HEMOGLOBIN A1C 8.2(H) 4.0 - 6.0 %A1C INTERFACE SYSTEM 01/28/2005 1:50 PM CDT Nakul Nino MD CHEMISTRY ORDERABLES Final R esult Performing Organization Address [facility] Phone Number INTERFACE SYSTEM Refer to clinic/hospital department * (ABNORMAL) POC GLUCOSE (01/28/2005 12:53 PM CDT) GLUCOSE POC 121(H) 60 - 100 mg/dL INTERFACE SYSTEM COMMENT POC Follow prtocol INTERFACE SYSTEM 01/28/2005 12:5 3 PM CDT Nakul Nino MD POINT OF CARE TESTING Final Result Performing Organization Address [facility] Phone Number INTERFACE SYSTEM Refer to clinic/hospital department * (ABNORMAL) POC GLUCOSE (01/28/2005 12:11 PM CDT) GLUCOSE POC 134(H) 60 - 100 mg/dL INTERFACE SYSTEM COMMENT POC Follow prtocol INTERFACE SYSTEM 01/28/2005 12:1 1 PM CDT Nakul Nino MD POINT OF CARE TESTING Final Result Performing Organization Address [facility] Co de Phone Number INTERFACE SYSTEM Refer to clinic/hospital department * (ABNORMAL) POC GLUCOSE (01/28/2005 7:55 AM CDT) GLUCOSE POC 121(H) 60 - 100 mg/dL INTERFACE SYSTEM COMMENT POC Follow prtocol INTERFACE SYSTEM 01/28/2005 7:55 AM CDT Nakul Nino MD POINT OF CARE TESTING Final Result Performing Organization Address [facility] de Phone Number INTERFACE SYSTEM Refer to clinic/hospital department * (ABNORMAL) POC GLUCOSE (01/28/2005 7:08 AM CDT) GLUCOSE POC 146(H) 60 - 100 mg/dL INTERFACE SYSTEM COMMENT POC Follow prtocol INTERFACE SYSTEM 01/28/2005 7:08 AM CDT Nakul Nino MD POINT OF CARE TESTING Final Result Performing Organization Address [facility] de Phone Number INTERFACE SYSTEM Refer to clinic/hospital department * (ABNORMAL) POC GLUCOSE (01/28/2005 6:00 AM CDT) GLUCOSE POC 132(H) 60 - 100 mg/dL INTERFACE SYSTEM 01/28/2005 6:00 AM CDT Nakul Nino MD POINT OF CARE TESTING Final Result Performing Organization Address [facility] Co de Phone Number INTERFACE SYSTEM Refer to clinic/hospital department * (ABNORMAL) POC GLUCOSE (01/28/2005 2:41 AM CDT) GLUCOSE POC 127(H) 60 - 100 mg/dL INTERFACE SYSTEM 01/28/2005 2:41 AM CDT Nakul Nino MD POINT OF CARE TESTING Final Result Performing Organization Address [facility] Co de Phone Number INTERFACE SYSTEM Refer to clinic/hospital department * (ABNORMAL) POC GLUCOSE (01/28/2005 1:18 AM CDT) GLUCOSE POC 124(H) 60 - 100 mg/dL INTERFACE SYSTEM 01/28/2005 1:18 AM CDT Nakul Nino MD POINT OF CARE TESTING Final Result Performing Organization Address [facility] de Phone Number INTERFACE SYSTEM Refer to clinic/hospital department * (ABNORMAL) POC GLUCOSE (01/28/2005 12:20 AM CDT) GLUCOSE POC 128(H) 60 - 100 mg/dL INTERFACE SYSTEM 01/28/2005 12:2 0 AM CDT Nakul Nino MD POINT OF CARE TESTING Final Result Performing Organization Address [facility] Phone Number INTERFACE SYSTEM Refer to clinic/hospital department * (ABNORMAL) POC GLUCOSE (01/27/2005 11:07 PM CDT) GLUCOSE POC 138(H) 60 - 100 mg/dL INTERFACE SYSTEM 01/27/2005 11:0 7 PM CDT Nakul Nino MD POINT OF CARE TESTING Final Result Performing Organization Address [facility] Phone Number INTERFACE SYSTEM Refer to clinic/hospital department * (ABNORMAL) POC GLUCOSE (01/27/2005 10:14 PM CDT) GLUCOSE POC 139(H) 60 - 100 mg/dL INTERFACE SYSTEM 01/27/2005 10:1 4 PM CDT Nakul Nino MD POINT OF CARE TESTING Final Result Performing Organization Address [facility] Co de Phone Number INTERFACE SYSTEM Refer to clinic/hospital department * (ABNORMAL) POC GLUCOSE (01/27/2005 9:18 PM CDT) GLUCOSE POC 184(H) 60 - 100 mg/dL INTERFACE SYSTEM 01/27/2005 9:18 PM CDT Nakul Nino MD POINT OF CARE TESTING Final Result Performing Organization Address [facility] Phone Number INTERFACE SYSTEM Refer to clinic/hospital department * (ABNORMAL) POC GLUCOSE (01/27/2005 7:36 PM CDT) GLUCOSE POC 229(H) 60 - 100 mg/dL INTERFACE SYSTEM 01/27/2005 7:36 PM CDT Nakul Nino MD POINT OF CARE TESTING Final Result Performing Organization Address [facility] Phone Number INTERFACE SYSTEM Refer to clinic/hospital department * (ABNORMAL) POC GLUCOSE (01/27/2005 5:58 PM CDT) GLUCOSE POC 121(H) 60 - 100 mg/dL INTERFACE SYSTEM COMMENT POC Follow prtocol INTERFACE SYSTEM 01/27/2005 5:58 PM CDT Nakul Nino MD POINT OF CARE TESTING Final Result Performing Organization Address [facility] Phone Number INTERFACE SYSTEM Refer to clinic/hospital department * (ABNORMAL) POC GLUCOSE (01/27/2005 5:08 PM CDT) GLUCOSE POC 106(H) 60 - 100 mg/dL INTERFACE SYSTEM COMMENT POC Follow prtocol INTERFACE SYSTEM 01/27/2005 5:08 PM CDT us Nakul Nino MD POINT OF CARE TESTING Final Result Performing Organization Address [facility] de Phone Number INTERFACE SYSTEM Refer to clinic/hospital department * POC GLUCOSE (01/27/2005 4:31 PM CDT) GLUCOSE POC 85 60 - 100 mg/dL INTERFACE SYSTEM COMMENT POC Follow prtocol INTERFACE SYSTEM 01/27/2005 4:31 PM CDT us Nkaul Nino MD POINT OF CARE TESTING Final Result Performing Organization Address [facility] Phone Number INTERFACE SYSTEM Refer to clinic/hospital department * POC GLUCOSE (01/27/2005 3:02 PM CDT) GLUCOSE POC 84 60 - 100 mg/dL INTERFACE SYSTEM COMMENT POC Follow prtocol INTERFACE SYSTEM 01/27/2005 3:0 2 PM CDT Nakul Nino MD POINT OF CARE TESTING Final Result Performing Organization Address [facility] Phone Number INTERFACE SYSTEM Refer to clinic/hospital department * POC GLUCOSE (01/27/2005 2:14 PM CDT) GLUCOSE POC 94 60 - 100 mg/dL INTERFACE SYSTEM COMMENT POC Follow prtocol INTERFACE SYSTEM 01/27/2005 2:14 PM CDT us Nakul Nino MD POINT OF CARE TESTING Final Result Performing Organization Address [facility] Phone Number INTERFACE SYSTEM Refer to clinic/hospital department * POC GLUCOSE (01/27/2005 12:57 PM CDT) GLUCOSE POC 89 60 - 100 mg/dL INTERFACE SYSTEM 01/27/2005 12:5 7 PM CDT us Nakul Nino MD POINT OF CARE TESTING Final Result Performing Organization Address [facility] Phone Number INTERFACE SYSTEM Refer to clinic/hospital department * (ABNORMAL) POC GLUCOSE (01/27/2005 11:53 AM CDT) GLUCOSE POC 107(H) 60 - 100 mg/dL INTERFACE SYSTEM COMMENT POC Follow prtocol INTERFACE SYSTEM 01/27/2005 11:5 3 AM CDT Nakul Nino MD POINT OF CARE TESTING Final Result Performing Organization Address [facility] Phone Number INTERFACE SYSTEM Refer to clinic/hospital department * (ABNORMAL) POC GLUCOSE (01/27/2005 11:07 AM CDT) GLUCOSE POC 118(H) 60 - 100 mg/dL INTERFACE SYSTEM COMMENT POC Follow prtocol INTERFACE SYSTEM 01/27/2005 11:0 7 AM CDT Naklu Nino MD POINT OF CARE TESTING Final Result Performing Organization Address [facility] Phone Number INTERFACE SYSTEM Refer to clinic/hospital department * (ABNORMAL) POC GLUCOSE (01/27/2005 9:54 AM CDT) GLUCOSE POC 136(H) 60 - 100 mg/dL INTERFACE SYSTEM COMMENT POC Follow prtocol INTERFACE SYSTEM 01/27/2005 9:54 AM CDT Nakul Nino MD POINT OF CARE TESTING Final Result Performing Organization Address [facility] Phone Number INTERFACE SYSTEM Refer to clinic/hospital department * (ABNORMAL) POC GLUCOSE (01/27/2005 8:06 AM CDT) GLUCOSE POC 176(H) 60 - 100 mg/dL INTERFACE SYSTEM 01/27/2005 8:06 AM CDT Nakul Nino MD POINT OF CARE TESTING Final Result Performing Organization Address [facility] de Phone Number INTERFACE SYSTEM Refer to clinic/hospital department * (ABNORMAL) POC GLUCOSE (01/27/2005 5:45 AM CDT) GLUCOSE POC 207(H) 60 - 100 mg/dL INTERFACE SYSTEM 01/27/2005 5:45 AM CDT Nakul Nino MD POINT OF CARE TESTING Final Result Performing Organization Address [facility] Phone Number INTERFACE SYSTEM Refer to clinic/hospital department * (ABNORMAL) POC GLUCOSE (01/27/2005 4:50 AM CDT) GLUCOSE POC 243(H) 60 - 100 mg/dL INTERFACE SYSTEM 01/27/2005 4:50 AM CDT Nakul Nino MD POINT OF CARE TESTING Final Result Performing Organization Address [facility] Phone Number INTERFACE SYSTEM Refer [...] ORDERABLES Final R esult Performing Organization Address [facility] Phone Number INTERFACE SYSTEM Refer [...] HEMATOLOGY ORDERABLES Final Result Performing Organization Address [facility] Co de Phone Number INTERFACE SYSTEM [...] CARE TESTING Final Result Performing Organization Address [facility] Phone Number INTERFACE SYSTEM Refer to clinic/hospital department * (ABNORMAL) POC GLUCOSE (01/27/2005 1:55 AM CDT) GLUCOSE POC 369(H) 60 - 100 mg/dL INTERFACE SYSTEM 01/27/2005 1:55 AM CDT Nakul Nino MD POINT OF CARE TESTING Final Result Performing Organization Address [facility] Phone Number INTERFACE SYSTEM Refer to clinic/hospital department * (ABNORMAL) POC GLUCOSE (01/27/2005 12:09 AM CDT) GLUCOSE POC 368(H) 60 - 100 mg/dL INTERFACE SYSTEM 01/27/2005 12:0 9 AM CDT Nakul Nino MD POINT OF CARE TESTING Final Result Performing Organization Address [facility] Phone Number INTERFACE SYSTEM Refer to clinic/hospital [...] COM Fi nal Result Performing Organization Address [facility] de Phone Number INTERFACE SYSTEM Refer to clinic/hospital department * (ABNORMAL) GLUCOSE LEVEL (01/26/2005 10:19 PM CDT) GLUCOSE 245(H) 70 - 110 mg/dL INTERFACE SYSTEM Comment:Specimen slightly he molyzed. THIS RESULT FROM EDTA TUBE. 01/26/2005 10:1 9 PM CDT Nakul Nino MD CHEMISTRY ORDERABLES Final R esult Performing Organization Address [facility] de Phone Number INTERFACE SYSTEM Refer [...] COM Fi nal Result Performing Organization Address [facility] Phone Number INTERFACE SYSTEM Refer to clinic/hospital [...] Goal INR 3.0; range 2.5 - 3.5 POST-N[place] Goal INR 2.5; range 2.0 - 3.0 or Goal 3.0; range 2.5 - 3.5 Atrial Fibrillation Goal INR 2.5; range 2.0 - 3.0 Ischemic Stroke Goal INR 2.5; range 2.0 - 3.0 For additional information see Guidelines for Anticoagulation available from the pharmacy Ronit Meredith Pharm D. 01/26/2005 7:18 PM CDT us Flako Blanco MD HEMATOLOGY ORDERABLES Final Result Performing Organization Address [facility] Phone Number INTERFACE SYSTEM Refer to clinic/hospital department * ETHANOL LEVEL (01/26/2005 7:00 PM CDT) ETHANOL <10 <=10 mg/dL INTERFACE SYSTEM 01/26/2005 7:00 PM CDT Flako Blanco MD CHEMISTRY ORDERABLES Final Result Performing Organization Address [facility] de Phone Number INTERFACE SYSTEM Refer [...] femur documented in this encounter Care Teams Supervisor Sample Relationship Specialty Start Date End Date Adrienne March DO [address] [place] [id number] PCP - General Family Practice 06/30/10 documented as of this encounter
--- OUTSIDE RECORDS SUMMARY | 2025-03-25 13:41 | XMS_ITS | Encounter Summary ---
Author Organization [facility] Address 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 Topic: Medication Request >> Mar 21, 2025 12:31 PM Latisha Garcia wrote: Caller Name: Patient Callback Number: [phone] Medication (Ask patient/caregiver to spell if possible): furosemide (Lasix) 40 mg tablet Note: All medication prescriptions can be requested using one [facility] Preferred Pharmacy: [id number] - [place], [place] - [address], [facility] [address] Call Notes: Patient is totally out of [...] Description 03/29/2025 10:40 AM CDT Office Visit [facility] [address] [place] [address] December, [facility] [address] [place] [address] 05/15/2025 8:40 AM CDT Office Visit [facility] [address] [place] [address] Adrienne March, DO [address] [place] [address] 07/25/2025 10:00 AM COMPUTER BUILDER Office Visit [facility] [address] [place] [phone] Adrienne March, DO [address] [place] [address] documented as of this encounter Visit Diagnoses Not on filedocumented in this encounter Care Teams Air Bag Builder Relationship Specialty Start Date End Date Adrienne March DO [address] [place] [address] PCP - General Family Practice 06/30/10 documented as of this encounter
--- OUTSIDE RECORDS SUMMARY | 2025-03-25 13:41 | XMS_ITS | Encounter Summary ---
Author Organization [facility] Address [address] [place] [address] Care Team Providers Care Social Worker Health Services Name Role Phone Adrienne March DO Primary Care Provider [phone] Encounter Details Date Type Department Care Team (Latest Contact Info) Description 02/02/2005 Outpatient Historical [facility] [address] 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
--- OUTSIDE RECORDS SUMMARY | 2025-03-25 13:41 | XMS_ITS | Encounter Summary ---
Author Organization [facility] Address [address] [place] [address] Care Team Providers Care Fruit Express Agent Name Role Phone Adrienne March DO Primary Care Provider [phone] Encounter Details Date Type Department Care Team (Late st Contact Info) Description 09/29/2007 Outpatient Historical [facility] [place] [address] [place] [address] Alexei Elizabeth MD [address] [place] [address] Social History Tobacco Use Types Packs/Day Years Used Date Smoking Tobacco: Never Assessed Comments Unknown Sex and Gender Information Value Date Recorded Sex Assigned at Not on file 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
--- OUTSIDE RECORDS SUMMARY | 2025-03-25 13:41 | XMS_ITS | Encounter Summary ---
Author Organization [facility] Address [address] [place] [address] Care Team Providers Care Home Day Care Provider Name Role Phone Adrienne March DO Primary Care Provider [phone]- [phone] Encounter Details Date Type Department Care Team (Latest Contact Info) Description 05/30/2001 Outpatient [facility] Podiatry-[facility] [place] [address] [place] [address] Abel Hurtado, DPM NO ADDRESS ON FILE Pain in limb (Primary Dx); Calcaneal spur Social History Tobacco Use Types Packs/Day Years Used Date Smoking Tobacco: Never Assessed Comments Unknown Sex and Gender Information Value Date Recorded Sex Assigned at Not on file 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
--- OUTSIDE RECORDS SUMMARY | 2025-03-25 13:41 | XMS_ITS | Encounter Summary ---
Author Organization [facility] Address [address] [place] [address] Care Team Providers Care Melter Supervisor Open Hearth Furnace Name Role Phone Adrienne March DO Primary Care Provider Encounter Details Date Type Department Care Team (Latest Contact Info) Description 07/28/2007 Outpatient Historical [facility] Gen Spec Surg [place] 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
--- OUTSIDE RECORDS SUMMARY | 2025-03-25 13:41 | XMS_ITS | Encounter Summary ---
Author Organization [facility] Address [address] [place] [address] Care Team Providers Care Diesel Crane Operator Name Role Phone Adrienne March DO Primary Care Provider Encounter Details Date Type Department Care Team (Latest Contact Info) Description 11/27/2003 Outpatient Historical [facility] [address] [place] [address] Jose Luis Mcmillan MD [address] [place] [address] CERVICALGIA (Primary Dx); Cervical spondylosis Social History Tobacco Use Types Packs/Day Years Used Date Smoking Tobacco: Never Assessed Comments Unknown Sex and Gender Information Value Date Recorded Sex Assigned at Not on file 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
--- OUTSIDE RECORDS SUMMARY | 2025-03-25 13:41 | XMS_ITS | Encounter Summary ---
Author Organization [facility] Address [address] [place] [address] Care Team Providers Care Plate Molder Name Role Phone Adrienne March DO Primary Care Provider Encounter Details Date Type Department Care Team (Latest Contact Info) Description 08/25/2004 Outpatient [facility] Podiat[facility] [place] [address] [place] [address] Abel Hurtado, MARCE NO ADDRESS ON FILE Other lymphedema (Primary Dx); LOWER LEG INJURY NOS; DERMATOPHYTOSIS OF FOOT Social History Tobacco Use Types Packs/Day Years Used Date Smoking Tobacco: Never Assessed Comments Unknown Sex and Gender Information Value Date Recorded Sex Assigned at Not on file 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
--- OUTSIDE RECORDS SUMMARY | 2025-03-25 13:41 | XMS_ITS | Encounter Summary ---
Author Organization [facility] Address [address] [place] [address] Care Team Providers Care Learning Center Instructor Name Role Phone Adrienne March DO Primary Care Provider [phone]- [phone] Encounter Details Date Type Department Care Team (Latest Contact Info) Description 01/06/2005 Outpatient Historical [facility] [facility] [place] [address] [place] [phone] Abel Hurtado, DPM NO ADDRESS ON FILE CALCANEAL SPUR (Primary Dx) Social History Tobacco Use Types Packs/Day Years Used Date Smoking Tobacco: Never Assessed Comments Unknown Sex and Gender Information Value Date Recorded Sex Assigned at Not on file 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
--- OUTSIDE RECORDS SUMMARY | 2025-03-25 13:41 | XMS_ITS | Encounter Summary ---
Author Organization [facility] Address [address] [place] [address] Care Team Providers Care Process Tank Tender Name Role Phone Adrienne March DO Primary Care Provider Encounter Details Date Type Department Care Team (Late st Contact Info) Description 09/06/2007 Outpatient Historical [facility] Gen Spec Surg [place] 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
--- OUTSIDE RECORDS SUMMARY | 2025-03-25 13:41 | XMS_ITS | Encounter Summary ---
Author Organization [facility] Address [address] [place] [address] Care Team Providers Care Nuclear Fuel Processing Technician Name Role Phone Adrienne March DO Primary Care Provider Encounter Details Date Type Department Care Team (Latest Contact Info) Description 04/25/2001 Outpatient [facility] [place] [address] [place] [address] Abel Hurtado, DPM NO ADDRESS ON FILE Exostosis of unspecified site (Primary Dx) Social History Tobacco Use Types Packs/Day Years Used Date Smoking Tobacco: Never Assessed Comments Unknown Sex and Gender Information Value Date Recorded Sex Assigned at Not on file Legal Sex Female 3:34 AM WOUND SPECIALIST Gender Identity Not on file Sexual Orientation Not on file documented as of this encounter Plan of Treatment Not on file documented as of this encounter Visit Diagnoses Diagnosis Exostosis of unspecified site- Primary documented in this encounter Care Teams Nuclear Fuel Processing Technician Relationship Specialty Start Date End Date Adrienne March DO [address] [place] [address] PCP - General Family Practice 06/30/10 documented as of this encounter
--- OUTSIDE RECORDS SUMMARY | 2025-03-25 13:41 | XMS_ITS | Encounter Summary ---
Author Organization [facility] Address [address] [place] [address] Care Team Providers Care Pickle Solution Maker Name Role Phone Adrienne March DO Primary Care Provider +1- [phone] Encounter Details Date Type Department Care Team (Latest Contact Info) Description 08/05/2004 Outpatient Historical [facility] Jose Luis Mcmillan MD [address] [place] [address] [place] [address] ADMINISTRTVE ENCOUNT NOS (Primary Dx) Social History Tobacco Use Types Packs/Day Years Used Date Smoking Tobacco: Never Assessed Comments Unknown Sex and Gender Information Value Date Recorded Sex Assigned at Not on file 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
--- OUTSIDE RECORDS SUMMARY | 2025-03-25 13:41 | XMS_ITS | Encounter Summary ---
Author Organization [facility] Address [address] [place] [address] Care Team Providers Care Canal Tender Name Role Phone Adrienne March Primary Care Provider Encounter Details Date Type Department Care Team (Late st Contact Info) Description 02/15/2007 Inpatient Historical [facility] Ketan Lew MD [address] [address] Posttraumatic Wound Infection not Elsewhere Classified (Primary Dx) Social History Tobacco Use Types Packs/Day Years Used Date Smoking Tobacco: Never Assessed Comments Unknown Sex and Gender Information Value Date Recorded Sex Assigned at Not on file 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 Sex Female 3:34 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 Gender Identity Not on file Sexual Orientation [...] OF CARE TESTING Edited Performing Organization Address [facility] Phone Number INTERFACE SYSTEM Refer to clinic/hospital department * (ABNORMAL) POC GLUCOSE (02/21/2007 6:12 AM CDT) GLUCOSE POC 116(H) 60 - 100 mg/dL INTERFACE SYSTEM 02/21/2007 6:12 AM CDT us Ketan Lew MD POINT OF CARE TESTING Edited Performing Organization Address [facility] Phone Number INTERFACE SYSTEM Refer to clinic/hospital department * (ABNORMAL) POC GLUCOSE (02/20/2007 9:07 PM CDT) GLUCOSE POC 141(H) 60 - 100 mg/dL INTERFACE SYSTEM 02/20/2007 9:07 PM CDT us Ketan Lew MD POINT OF CARE TESTING Edited Performing Organization Address [facility] Phone Number INTERFACE SYSTEM Refer to clinic/hospital department * (ABNORMAL) POC GLUCOSE (02/20/2007 5:32 PM CDT) GLUCOSE POC 102(H) 60 - 100 mg/dL INTERFACE SYSTEM 02/20/2007 5:32 PM CDT us Ketan Lew MD POINT OF CARE TESTING Edited Performing Organization Address [facility] Phone Number INTERFACE SYSTEM Refer to clinic/hospital department * (ABNORMAL) POC GLUCOSE (02/20/2007 11:55 AM CDT) GLUCOSE POC 55(L) 60 - 100 mg/dL INTERFACE SYSTEM 02/20/2007 11:5 5 AM CDT us Ketan Lew MD POINT OF CARE TESTING Edited Performing Organization Address [facility] de Phone Number INTERFACE SYSTEM Refer to clinic/hospital department * (ABNORMAL) POC GLUCOSE (02/20/2007 6:25 AM CDT) GLUCOSE POC 119(H) 60 - 100 mg/dL INTERFACE SYSTEM 02/20/2007 6:25 AM CDT us Ketan Lew MD POINT OF CARE TESTING Edited Performing Organization Address [facility] Phone Number INTERFACE SYSTEM Refer to clinic/hospital department * (ABNORMAL) POC GLUCOSE (02/19/2007 8:48 PM CDT) GLUCOSE POC 115(H) 60 - 100 mg/dL INTERFACE SYSTEM 02/19/2007 8:48 PM CDT us Ketan Lew MD POINT OF CARE TESTING Edited Performing Organization Address [facility] de Phone Number INTERFACE SYSTEM Refer to clinic/hospital department * (ABNORMAL) POC GLUCOSE (02/19/2007 5:23 PM CDT) GLUCOSE POC 108(H) 60 - 100 mg/dL INTERFACE SYSTEM 02/19/2007 5:23 PM CDT us Ketan Lew MD POINT OF CARE TESTING Edited Performing Organization Address [facility] de Phone Number INTERFACE SYSTEM Refer to clinic/hospital department * POC GLUCOSE (02/19/2007 11:35 AM CDT) GLUCOSE POC 75 60 - 100 mg/dL INTERFACE SYSTEM 02/19/2007 11:3 5 AM CDT us Ketan Lew MD POINT OF CARE TESTING Edited Performing Organization Address City/[facility] de Phone Number INTERFACE SYSTEM Refer to clinic/hospital department * (ABNORMAL) POC GLUCOSE (02/19/2007 7:12 AM CDT) GLUCOSE POC 123(H) 60 - 100 mg/dL INTERFACE SYSTEM 02/19/2007 7:12 AM CDT us Ketan Lew MD POINT OF CARE TESTING Edited Performing Organization Address [facility] Phone Number INTERFACE SYSTEM Refer to clinic/hospital department * (ABNORMAL) POC GLUCOSE (02/18/2007 9:23 PM CDT) GLUCOSE POC 158(H) 60 - 100 mg/dL INTERFACE SYSTEM 02/18/2007 9:23 PM CDT us Ketan Lew MD POINT OF CARE TESTING Edited Performing Organization Address [facility] Phone Number INTERFACE SYSTEM Refer to clinic/hospital department * POC GLUCOSE (02/18/2007 5:26 PM CDT) GLUCOSE POC 87 60 - 100 mg/dL INTERFACE SYSTEM 02/18/2007 5:26 PM CDT us Ketan Lew MD POINT OF CARE TESTING Edited Performing Organization Address [facility] Phone Number INTERFACE SYSTEM Refer to clinic/hospital department * POC GLUCOSE (02/18/2007 11:31 AM CDT) GLUCOSE POC 93 60 - 100 mg/dL INTERFACE SYSTEM 02/18/2007 11:3 1 AM CDT us Ketan Lew MD POINT OF CARE TESTING Edited Performing Organization Address [place]/[facility] de Phone Number INTERFACE SYSTEM Refer to clinic/hospital department * (ABNORMAL) POC GLUCOSE (02/18/2007 6:23 AM CDT) GLUCOSE POC 125(H) 60 - 100 mg/dL INTERFACE SYSTEM 02/18/2007 6:23 AM CDT us Ketan Lew MD POINT OF CARE TESTING Edited Performing Organization Address [facility] de Phone Number INTERFACE SYSTEM Refer to clinic/hospital department * (ABNORMAL) POC GLUCOSE (02/17/2007 8:10 PM CDT) GLUCOSE POC 182(H) 60 - 100 mg/dL INTERFACE SYSTEM 02/17/2007 8:10 PM CDT us Ketan Lew MD POINT OF CARE TESTING Edited Performing Organization Address [facility] de Phone Number INTERFACE SYSTEM Refer to clinic/hospital department * (ABNORMAL) POC GLUCOSE (02/17/2007 4:41 PM CDT) GLUCOSE POC 122(H) 60 - 100 mg/dL INTERFACE SYSTEM 02/17/2007 4:41 PM CDT us Ketan Lew MD POINT OF CARE TESTING Edited Performing Organization Address [facility] de Phone Number INTERFACE SYSTEM Refer to clinic/hospital department * (ABNORMAL) POC GLUCOSE (02/17/2007 11:02 AM CDT) GLUCOSE POC 115(H) 60 - 100 mg/dL INTERFACE SYSTEM 02/17/2007 11:0 2 AM CDT us Ketan Lew MD POINT OF CARE TESTING Edited Performing Organization Address [facility] de Phone Number INTERFACE SYSTEM Refer to clinic/hospital department * (ABNORMAL) POC GLUCOSE (02/17/2007 5:54 AM CDT) GLUCOSE POC 147(H) 60 - 100 mg/dL INTERFACE SYSTEM 02/17/2007 5:54 AM CDT us Ketan Lew MD POINT OF CARE TESTING Edited Performing Organization Address City/[facility] de Phone Number INTERFACE SYSTEM Refer to clinic/hospital department * (ABNORMAL) POC GLUCOSE (02/16/2007 8:30 PM CDT) GLUCOSE POC 121(H) 60 - 100 mg/dL INTERFACE SYSTEM 02/16/2007 8:30 PM CDT us Ketan Lew MD POINT OF CARE TESTING Edited Performing Organization Address [facility] Phone Number INTERFACE SYSTEM Refer to clinic/hospital department * (ABNORMAL) POC GLUCOSE (02/16/2007 11:12 AM CDT) GLUCOSE POC 117(H) 60 - 100 mg/dL INTERFACE SYSTEM 02/16/2007 11:1 2 AM CDT us Ketan Lew MD POINT OF CARE TESTING Edited Performing Organization Address [facility] Phone Number INTERFACE SYSTEM Refer to clinic/hospital department * (ABNORMAL) POC GLUCOSE (02/16/2007 6:26 AM CDT) GLUCOSE POC 128(H) 60 - 100 mg/dL INTERFACE SYSTEM 02/16/2007 6:26 AM CDT us Ketan Lew MD POINT OF CARE TESTING Edited Performing Organization Address [facility] Phone Number INTERFACE SYSTEM Refer [...] Goal INR 3.0; range 2.5 - 3.5 POST-ID Goal INR 2.5; range 2.0 - 3.0 [...] HEMATOLOGY ORDERABLES Edit ed Performing Organization Address City/State/[facility] Co de Phone Number INTERFACE SYSTEM Refer to clinic/hospital department documented in this encounter Visit Diagnoses Diagnosis Posttraumatic wound infection not elsewhere classified- Primary documented in this encounter Care Teams Canal Tender Relationship Specialty Start Date End Date Adrienne March DO [address] [place] [phone] PCP - General Family Practice 06/30/10 documented as of this encounter
--- OUTSIDE RECORDS SUMMARY | 2025-03-25 13:41 | XMS_ITS | Encounter Summary ---
Author Organization [facility] Address [address] [place] [address] Care Team Providers Care Facility Sales And Admin Name Role Phone AncaAdrienne forbes Primary Care Provider Encounter Details Date Type Department Care Team (Late st Contact Info) Description 01/24/2008 Emergency [facility] Emergency Department [address] 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 Probable contamination at collection. If clinically indicated, please submit an appropriately collected specimen. INTERFACE SYSTEM 01/24/2008 9:49 PM CDT 01/24/2008 9:49 PM CDT us John Power MD MICROBIOLOGY - GENERAL ORD ERABLES Final Result INTERFACE SYSTEM Refer to clinic/hospital department * (ABNORMAL) POC GLUCOSE (01/24/2008 6:31 PM CDT) Pathologist [facility] GLUCOSE POC 366(H) 60 - 100 mg/dL [facility] COMMENT POC Called M.D. [facility] Venous blood specimen (specimen) 01/24/2008 6:31 PM CDT 01/25/2008 7:33 AM CDT us Jonh Power MD POINT OF CARE TESTING Rosetta l Result [facility] [address] [place] [address] * (ABNORMAL) URINALYSIS (01/24/2008 4:54 PM CDT) PH UA 6.5 5.0 - 9.0 [facility] BLOOD UA NEGATIVE NEGATIVE [facility] LEUKOCYTE ESTERASE UA NEGATIVE NEGATIVE [facility] UROBILINOGEN UA 0.2 0.2 [facility] COLOR UA Yellow Straw [facility] PROTEIN UA NEGATIVE NEGATIVE [facility] SPECIFIC GRAVITY UA 1.010 <=1.005 [facility] NITRITE UA NEGATIVE NEGATIVE [facility] BILIRUBIN UA NEGATIVE NEGATIVE [facility] CLARITY UA SL CLOUDY Clear [facility] GLUCOSE UA >=1000 mg/dl(A) NEGATIVE [facility] KETONES UA NEGATIVE NEGATIVE [facility] MICRO EXAM Yes(A) No [facility] Urine specimen (specimen) 01/24/2008 4:54 PM CDT 01/24/2008 4:54 PM CDT John Power MD URINE ORDERABLES Final Res ult Performing Organization Address [facility] de Phone Number [facility] [address] [place] [address] * (ABNORMAL) URINALYSIS MICROSCOPY ONLY (01/24/2008 4:54 PM CDT) RBC UA None Seen 0 - 2 [facility] HYALINE CAST None Seen 0 - 2 [facility] BACTERIA UA Few(A) None Seen [facility] WBC URINE 0-2 0 - 2 [facility] Urine specimen (specimen) 01/24/2008 4:54 PM CDT 01/24/2008 4:54 PM CDT John Power MD URINE ORDERABLES Final Res ult Performing Organization Address [facility] de Phone Number [facility] [address] [place] [address] * CT HEAD WO CONTRAST (01/24/2008 2:43 [...] CDT) TSH 2.930 0.350 - 5.500 uIU/ml [facility] Blood specimen (specimen) 01/24/2008 2:06 PM CDT 01/24/2008 2:55 PM CDT us John Power MD CHEMISTRY ORDERABLES Final Result [facility] [address] [place] [address] * T4 FREE (01/24/2008 2:06 PM CDT) [facility] T4 FREE 0.90 0.89 - 1.76 ng/dL [facility] Blood specimen (specimen) 01/24/2008 2:06 PM CDT 01/24/2008 2:55 PM CDT John Power MD CHEMISTRY ORDERABLES Final Result Performing Organization Address [facility] de Phone Number [facility] [address] [place] [address] * (ABNORMAL) BASIC METABOLIC PANEL (01/24/2008 2:06 PM CDT) [facility] ANION GAP 11 9 - 20 mEq/L [facility] SODIUM 138 136 - 145 mEq/L [facility] BUN 15 7 - 17 mg/dL [facility] CO2 31 22 - 32 mmol/l [facility] POTASSIUM 4.9 3.5 - 5.0 mEq/L [facility] Comment: Specimen slightly hemolyzed OSMOLALITY, CALCULATED 308(H) 275 - 295 mOsm/Kg [facility] CREATININE 1.3(H) 0.7 - 1.2 mg/dL [facility] CALCIUM 9.4 8.4 - 10.5 mg/dL [facility] GLUCOSE 490(H) 70 - 110 mg/dL [facility] CHLORIDE 101 95 - 110 mEq/L [facility] Blood specimen (specimen) 01/24/2008 2:06 PM CDT 01/24/2008 2:13 PM CDT us Carlos A Henao MD CHEMISTRY ORDERABLES Final Resul t Performing Organization Address [facility] Co de Phone Number [facility] [address] [place] [address] * PT AND APTT (01/24/2008 2:06 PM CDT) PTT 27.0 22.5 - 36.5 Secs [facility] Comment: Therapeutic Range: Hi-level PE/DVT heparin protocol 80.1 -95.0 sec Lo-level PE/DVT heparin protocol 67.1 - 80.0 sec Cardiac Heparin Protocol 67.1 - 85.0 sec Neuro Heparin Protocol 67.1 - 80.0 sec As of 12/08/2007 note change in APTT Normal Range. PROTIME 13.3 12.8 - 15.8 Secs [facility] Comment:As of 2007 not e change in normal range. INR 0.9 [facility] Comment: Expected Values for INR: DVT/PE Goal INR 2.5; range 2.0 - 3.0 Valve Replacement Tissue Goal INR 2.5; range 2.0 - 3.0 Mechanical Goal INR 3.0; range 2.5 - 3.5 POST-CO Goal INR 2.5; range 2.0 - 3.0 or Goal 3.0; range 2.5 - 3.5 Atrial Fibrillation Goal INR 2.5; range 2.0 - 3.0 Ischemic Stroke Goal INR 2.5; range 2.0 - 3.0 For additional information see Guidelines for Anticoagulation available from the pharmacy [facility] [phone] Blood specimen (specimen) 01/24/2008 2:06 PM CDT 01/24/2008 2:13 PM CDT Carlos A Henao MD HEMATOLOGY ORDERABLES Edited [facility] [address] [place] [address] * (ABNORMAL) CBC WITH DIFFERENTIAL (01/24/2008 2:06 PM CDT) Pathologist [facility] MCV 87.5 84.0 - 103.0 Fl [facility] MPV 9.8 8.9 - 12.8 Fl [facility] MONOCYTE ABSOLUTE 0.6 0.1 - 0.6 K/ul [facility] BASOPHILS 0.5 0.0 - 1.0 % [facility] HEMOGLOBIN 15.0 12.0 - 16.0 g/dL [facility] RDW 13.4 11.0 - 14.5 % [facility] MONOCYTES 7.2 2.0 - 10.0 % [facility] WBC 8.6 4.8 - 10.8 K/ul [facility] MCH 27.9 27.0 - 34.0 pg [facility] NEUTROPHIL ABSOLUTE 5.6 2.0 - 8.0 K/ul [facility] NEUTROPHILS 65.0 42.2 - 75.2 % [facility] PERIPHERAL BLOOD SMEAR REVIEW Automated Diff [facility] EOSINOPHIL ABSOLUTE 0.2 0.0 - 0.7 K/ul [facility] HEMATOCRIT 47.1(H) 36.0 - 46.0 % [facility] EOSINOPHILS 2.7 0.0 - 7.0 % [facility] PLATELETS 290 140 - 440 K/ul [facility] RBC 5.38 4.20 - 5.40 Mil/ul [facility] LYMPHOCYTES 24.6 24.0 - 44.0 % [facility] MCHC 31.8 30.0 - 35.0 g/dL [facility] BASOPHILS ABSOLUTE 0.0 0.0 - 0.2 K/ul [facility] LYMPHOCYTE ABSOLUTE 2.1 1.2 - 4.0 K/ul [facility] Blood specimen (specimen) 01/24/2008 2:06 PM CDT 01/24/2008 2:13 PM CDT us Carlos A Henao MD HEMATOLOGY ORDERABLES Final Resu lt [facility] [address] [place] [address] * (ABNORMAL) POC GLUCOSE (01/24/2008 2:01 PM CDT) GLUCOSE POC >500(AA) 60 - 100 mg/dL [facility] COMMENT POC Lab Confirm [facility] Venous blood specimen (specimen) 01/24/2008 2:01 PM CDT 01/26/2008 6:56 AM CDT us John Power MD POINT OF CARE TESTING Rosetta terrazas Result [facility] [address] [place] [place] [address] documented in this encounter Visit Diagnoses Not on filedocumented in this encounter Care Teams Facility Sales And Admin Relationship Specialty Start Date End Date Adrienne March DO [address] [place] [address] PCP - General Family Practice 06/30/10 documented as of this encounter
--- OUTSIDE RECORDS SUMMARY | 2025-03-25 13:41 | XMS_ITS | Clinical Summary ---
Author Organization [facility] Address [address] [place] [address] Care Team Providers Care Home Energy Consultant Supervisor Name Role Phone Adrienne March Primary Care Provider Allergies Active Allergy Reactions Criticality Noted Date Comments Adhesive Tape-Silicones Rash Low 09/05/2020 Amoxicillin-Pot Clavulanate Diarrhea,Abdominal Pain Medium 09/07/2008 Codeine Unknown 04/09/2009 Semaglutide Other (See Comments) 07/13/2018 just didn't feel good Silver Sulfadiazine Swelling Low 12/29/2013 Medications fluticasone (FLONASE) 50 mcg/spray [place], SuspensionIndica tions:Acute non-recurrent maxillary sinusitis SHAKE LIQUID [...] Tablet 11 0 Active blood sugar diagnostic (Planeta.ruuch Ultra Blue Test Strip) Strip USE TO [...] TAKE 1 TABLET(125 MCG) 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 90 Tablet 1 Active potassium chloride (KLOR-CON) [...] on file 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 Gender Identity Not on file Sexual Orientation [...] 2023-2 5 season) 2024 01/29/2021 [place] ([place]) Preventative Visit/Annual Wellness Visit 09/20/2024 12/23/2020, 05/23/2020, [...] years Discontinued Medical Devices Implanted Type Area Bone Cooking Operator Device Identifier Shelf Expiration Date Model / Serial / Lot Cement Simplex Hvisc 6194-1-010 - [id number] Implanted:01/2020 by Marco A Lewis MD at [facility] (Quantity not on file) Cement Left: Knee JAMSHID- Sai Med[employer]ft[employer] INT INC [id number] 03/19/2021 6194-1-010 / / [id number] Cement Simplex Hvisc 6194-1-010 - [id number] Implanted:01/2020 by Marco A Lewis MD at [facility] (Quantity not on file) Cement Left: Knee JAMSHID- HOWMEDICA INT INC [id number] 03/19/2021 6194-1-010 / / [id number] Hemostatic Surgifoam 1gm 1977 - [id number] Implanted:Qty : 1 on 06/21/2020 by Jan Hoffman MD at [facility] Hemostatic N/A: Back J&J- ETH[employer]ON INC [id number] 10/26/20211977 / / [id number] Insert Attune Fb Cr Sz4 6mm 1516-20-406 - [id number] Implanted:Qty : 1 on 11/23/2019 by Marco A Lewis MD at [facility] Knee Left: Knee J&J- [employer]Y [employer] [id number] 03/19/2023 [id number] / / [id number] Comp Fem Attune Cr Cmnt Sz4 1504-00-104 - [id number] Implanted:Qty : 1 on 11/23/2019 by Marco A Lewis MD at [facility] Knee Left: Knee J&J- [employer] [id number] 09/19/2029 [id number] / / [id number] Comp Tib Attune Fb Cmnt Sz5 1506-70-005 - [id number] Implanted:Qty : 1 on 11/23/2019 by Marco A Lewis MD at [facility] Knee Left: Knee J[employer]J- [employer] [id number] 08/19/2029 [id number] / / [id number] Vince Solera Crv Ti 5.5x30mm [id number] - [id number] Implanted:Qty : 2 on 06/21/2020 by Jan Hoffman MD at [facility] Vince N/A: Back MED[employer]ONIC- SOFAMOR DANEK 06/21/2021 [id number] / / [id number] Screw Solera 5.5/6.0 Breakoff [id number] - [id number] Implanted:Qty : 4 on 06/21/2020 by Jan Hoffman MD at [facility] Screw N/A: Back [employer]- SOFAMOR DANEK 06/21/2021 [id number] / / [id number] Screw Cdh 6.5x45mm 5.5/6.0 Mas Cc [id number] - [id number] Implanted:Qty : 2 on 06/21/2020 by Jan Hoffman MD at [facility] Screw N/A: Back [employer]- SOFAMOR DANEK 06/21/2021 [id number] / / [id number] Screw Cdh 6.5x35mm 5.5/6.0 Mas Cc [id number] - [id number] Implanted:Qty : 2 on 06/21/2020 by Jan Hoffman MD at [facility] Screw N/A: Back [employer] SOFAMOR [employer]ANEK 06/21/2021 [id number] / / [id number] Putty Dbx Dbm 1ml 73489 - [id number] Implanted:Qty : 1 on 06/21/2020 by Jan Hoffman MD at [facility] Tissue N/A: Back MUSCULOSKELETAL TRANSPLANT FOU 07/21/2021 [id number] / [id number] Readigraft Canc Chips 15ml Can15 14bp - [id number] Implanted:Qty : 1 on 06/21/2020 by Jan Hoffman MD at [facility] Tissue N/A: Back LIFENET 08/07/2024 CAN15 14BP / / [id number] Procedures Procedure Name Priority Date/Time Associated Diagnosis Comments DIABETES FOOT EXAM Routine 12/23/2020 DIABETES EYE EXAM Routine 06/04/2020 LIPID PANEL Routine 05/23/2020 10:48 AM CDT Type 2 diabetes mellitus with diabetic peripheral angiopathy without gangrene, without long-term current use of insulin ([facility]) HEMOGLOBIN A1C Routine 05/23/2020 10:48 AM CDT Type 2 diabetes mellitus with diabetic peripheral angiopathy without gangrene, without long-term current use of insulin ([facility]) COLON CANCER SCREEN, STOOL DNA Routine 05/17/2019 4:15 PM CDT Screening for colon cancer MICROALBUMIN/CREATIN INE RATIO, RANDOM UR Routine 10/10/2018 9:52 AM PNEUMATIC TOOL REPAIRER Type 2 diabetes mellitus with diabetic peripheral angiopathy without gangrene, without long-term current use of insulin ([facility]) POC OCCULT BLOOD UP TO 3 CARDS Routine 08/01/2015 5:24 PM PNEUMATIC TOOL REPAIRER Screen for colon cancer XR DEXA BONE DENSITY AXIAL 1 OR MORE SITES Routine 07/30/2015 1:58 PM PNEUMATIC TOOL REPAIRER Postmenopausal atrophic vaginitis from Last 3 Months or Most Recently Relevant to Health Maintenance Results * DIABETES FOOT EXAM (12/23/2020) us Adrienne March DO HEALTH MAINTENANCE Edited R esult - Final * DIABETES EYE EXAM (06/04/2020) us Abstract Spg Provider HEALTH MAINTENANCE Final R esult * (ABNORMAL) HEMOGLOBIN A1C (05/23/2020 10:48 AM CDT) HEMOGLOBIN A1C 7.1(H) See Comment % 05/23/2020 8:25 PM CDT [facility] EST. AVG GLUCOSE, A1C 157 mg/dL 05/23/2020 8:25 PM CDT [facility] Blood Venipuncture / Unknown 05/23/2020 10:48 AM CDT 05/23/2020 7:56 PM CDT Narrative [facility] - 05/23/2020 8:25 PM CDT HGB A1C INTERPRETATION NORMAL: <5.7% PRE-DIABETES: 5.7 - 6.4% DIABETES: 6.5% OR GREATER Falsely low A1C measurements can occur when: 1. Anemia and/or hemolytic anemia is present. 2. Hemoglobin variants present. 3. Renal failure. 4. Transfusion of blood product in the last 120 days. We recommend ordering a fructosamine test([id number]) to more accurately assess glycemic status if any of the above conditions are present. Adrienne March DO CHEMISTRY ORDERABLES Final Result [facility] CLIA# [id number] [address] [place] [address] * (ABNORMAL) LIPID PANEL (05/23/2020 10:48 AM CDT) [facility] CHOLESTEROL 215(H) <200 mg/dL 05/23/2020 9:06 PM CDT [facility] TRIGLYCERIDE 175(H) <150 mg/dL 05/23/2020 9:06 PM CDT [facility] HDL 83(H) 40 - 59 mg/dL 05/23/2020 9:06 PM CDT [facility] LDL CALCULATED 97 <100 mg/dL 05/23/2020 9:06 PM CDT [facility] NON-HDL CHOLESTEROL 132(H) <130 mg/dL 05/23/2020 9:06 PM CDT [facility] Blood Venipuncture / Unknown 05/23/2020 10:48 AM CDT 05/23/2020 7:56 PM CDT Narrative [facility] - 05/23/2020 9:06 PM [...] Adrienne March DO CHEMISTRY ORDERABLES Final Result [facility]# [id number] [facility] [place] [address] * COLON CANCER SCREEN, STOOL DNA (05/17/2019 4:15 PM CDT) COLOGUARD RESULT Negative Not Applicable [facility] Comment: A negative result indicates [...] Contreras. et al, N Engl J Med 2014;370(14):5822-9424) COLOGUARD RE-SCREENING RECOMMENDATION: Periodic routine colorectal cancer screening is an important part of preventive healthcare for asymptomatic persons at average risk for colorectal cancer. Following a negative Cologuard result, the [place] [employer] Society and U.S. Multi-Society Task Force screening guidelines recommend a Cologuard re-screening interval of 3 years. References: [place] [employer] (ACS). Colorectal cancer prevention and early detection. [place], [place]: [place] [employer]; [updated 2015Jan 11]. https://www.cancer.org/cancer/rpean-yccxrx-mqfzzw/hbyhyiopd-guwsyqkbn-uihqtpy/ac s-rec ommendations.html. Accessed May 20, 2018; Héctor BAUM, Marleny JURADO, Cruzito BRADLEY, Colorectal Cancer Screening: Recommendations for Physicians and Patients from the U.S. Multi-Society Task Force on Colorectal Cancer Screening, Am J Gastroenterology 2017; 112:0502-0960. Test Type: Composite algorithmic analysis of stool [...] can be accessed at the following location: www.[employer]/results. Additional description of the Cologuard test process, warnings and precautions can be found at www.cologuardtest.com. Rx Only. Stool STOOL SPECIMEN / Unknown 05/17/2019 4:15 PM CDT 05/18/2019 11:04 PM CDT Adrienne March DO BODY FLUIDS AND STOOLS Rosetta terrazas Result [facility] CLIA # [id number] [address], [address] [place] [address] * (ABNORMAL) MICROALBUMIN/CREATININE RATIO, RANDOM UR (10/10/2018 9:52 AM PNEUMATIC TOOL REPAIRER) MICROALBUMIN, URINE 24.1 No Reference Range mg/dL 10/10/2018 9:10 PM PNEUMATIC TOOL REPAIRER [facility] CREATININE, URINE 35.8 29.0 - 226.0 mg/dL 10/10/2018 9:10 PM PNEUMATIC TOOL REPAIRER [facility] Comment: Reference Range varies with fluid intake and diet. MICROALBUMIN/ CREAT RATIO, UR 673.2(H) <25.0 mg/g 10/10/2018 9:10 PM PNEUMATIC TOOL REPAIRER [facility] Urine URINE SPECIMEN OBTAINED BY CLEAN CATCH PROCEDURE / Unknown Collection / Unknown 10/10/2018 9:52 AM PNEUMATIC TOOL REPAIRER 10/10/2018 7:34 PM PNEUMATIC TOOL REPAIRER Narrative [facility] - 10/10/2018 9:10 PM PNEUMATIC TOOL REPAIRER Condition Microalbumin/Creat ratio Normal Males <17 Normal Females <25 Microalbuminuria Males 17-299 Microalbuminuria Females 25-299 Overt proteinuria >=300 Raissa Hernández RADIAGRAPH OPERATOR URINE ORDERABLES Final R esult Performing Organization Address [facility] Co de Phone Number [facility] CLIA# [id number] [address] [place] [address] * (ABNORMAL) POC OCCULT BLOOD UP TO 3 CARDS (08/01/2015 5:24 PM PNEUMATIC TOOL REPAIRER) OCCULT BLOOD #1 Positive(A ) Negative [facility] OCCULT BLOOD #2 Positive(A ) Negative [facility] OCCULT BLOOD #3 Positive(A ) Negative [facility] Stool specimen (specimen) 08/01/2015 5:24 PM PNEUMATIC TOOL REPAIRER Deanne Banks RADIAGRAPH OPERATOR POINT OF CARE TESTING Final R esult Performing Organization Address [facility] Co de Phone Number [facility] CLIA# [id number] [address] [place] [address] * XR DEXA BONE DENSITY AXIAL 1 OR MORE SITES (07/30/2015 1:58 PM PNEUMATIC TOOL REPAIRER) Anatomical Region Laterality Modality Digital Radiogra phy 07/30/2015 1:48 PM PNEUMATIC TOOL REPAIRER Narrative 07/31/2015 8:08 AM PNEUMATIC TOOL REPAIRER PROCEDURE DEXA BONE DENSITY, 30 July 2015 [...] Relevant to Health Maintenance Insurance MEDICAID [facility] RX [facility] Medicare Part D RX [employer] (INTERNAL) [facility] Internal Plans Advance Directives For more information, please contact: [phone] * Full Code (Latest Code Status on File) Date Activated Date Inactivated Comments 06/21/2020 9:47 AM 06/23/2020 4:07 PM * Full Code Date Activated Date Inactivated Comments 11/23/2019 4:04 PM 11/25/2019 4:08 PM * Full Code Date Activated Date Inactivated Comments 11/23/2019 9:11 AM 11/23/2019 4:04 PM Care Teams Home Energy Consultant Supervisor Relationship Specialty Start Date End Date Adrienne March DO [address] [place] [address] PCP - General Family Practice 06/30/10
--- OUTSIDE RECORDS SUMMARY | 2025-03-25 13:41 | XMS_ITS | Encounter Summary ---
Author Organization [facility] Address [address] [place] [address] Care Team Providers Care Pie Icer Machine Name Role Phone Ardienne March DO Primary Care Provider Encounter Details Date Type Department Care Team (Latest Contact Info) Description 04/19/2007 Outpatient Historical [facility] Gen Spec Surg 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
--- OUTSIDE RECORDS SUMMARY | 2025-03-25 13:41 | XMS_ITS | Encounter Summary ---
Author Organization [facility] Address [address] [place] [address] Care Team Providers Care Post Splitter Name Role Phone Adrienne March DO Primary Care Provider Encounter Details Date Type Department Care Team (Late st Contact Info) Description 02/01/2008 Outpatient Historical [address] Neuro [address] [place] [address] Ed, Physician NO ADDRESS ON FILE Marcelino Sauceda MD NO ADDRESS ON FILE Sushil Enrique MD [address] [place] [id number] Social History Tobacco Use Types Packs/Day Years Used Date Smoking Tobacco: Never Assessed Comments Unknown Sex and Gender Information Value Date Recorded Sex Assigned at Not on file 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 Gender Identity Not on file Sexual Orientation [...] GLUCOSE POC 216(H) 60 - 100 mg/dL [facility] Venous blood specimen (specimen) 02/06/2008 6:49 AM CDT 02/07/2008 6:53 AM CDT us Sushil Enrique MD POINT OF CARE TESTING Final Res ult [facility] CLIA# [id number] [address] [place] [address] * CLOSTRIDIUM DIFFICILE TOXIN (02/05/2008 10:03 PM CDT) C DIFFICILE TOXIN Negative Negative [facility] 02/05/2008 10:0 3 PM CDT 02/05/2008 10:03 PM CDT Sushil Enrique MD MICROBIOLOGY - GENERAL ORDERABL ES Final Result Performing Organization Address [facility] Co de Phone Number [facility] CLIA# [id number] [address] [place] [address] * (ABNORMAL) POC GLUCOSE (02/05/2008 8:47 PM CDT) GLUCOSE POC 116(H) 60 - 100 mg/dL [facility] Venous blood specimen (specimen) 02/05/2008 8:47 PM CDT 02/06/2008 12:45 AM CDT Sushil Enrique MD POINT OF CARE TESTING Final Res ult Performing Organization Address [facility] Co de Phone Number [facility] CLIA# [id number] [address] [place] [address] * (ABNORMAL) POC GLUCOSE (02/05/2008 4:38 PM CDT) GLUCOSE POC 276(H) 60 - 100 mg/dL [facility] Venous blood specimen (specimen) 02/05/2008 4:38 PM CDT 02/06/2008 12:57 AM CDT Sushil Enrique MD POINT OF CARE TESTING Final Res ult Performing Organization Address [facility] Co de Phone Number [facility] CLIA# [id number] [address] [place] [address] * (ABNORMAL) POC GLUCOSE (02/05/2008 11:08 AM CDT) GLUCOSE POC 157(H) 60 - 100 mg/dL [facility] Venous blood specimen (specimen) 02/05/2008 11:08 AM CDT 02/05/2008 12:24 PM CDT Sushil Enrique MD POINT OF CARE TESTING Final Res ult Performing Organization Address [facility] Co de Phone Number [facility] CLIA# [id number] [address] [place] [address] * (ABNORMAL) POC GLUCOSE (02/05/2008 7:52 AM CDT) [facility] Signature GLUCOSE POC 168(H) 60 - 100 mg/dL [facility] Venous blood specimen (specimen) 02/05/2008 7:52 AM CDT 02/05/2008 12:24 PM CDT Sushil Enrique MD POINT OF CARE TESTING Final Res ult Performing Organization Address [facility] de Phone Number [facility] CLIA# [id number] [address] [place] [address] * PHENYTOIN LEVEL, TOTAL (02/05/2008 6:00 AM CDT) [facility] PHENYTOIN TOTAL 11.4 10.0 - 20.0 ug/mL [facility] Blood specimen (specimen) 02/05/2008 6:00 AM CDT 02/05/2008 6:21 AM CDT Sushil Enrique MD CHEMISTRY ORDERABLES Final Resu lt Performing Organization Address [facility] de Phone Number [facility] CLIA# [id number] [address] [place] [address] * (ABNORMAL) CBC WITH DIFFERENTIAL (02/04/2008 10:22 PM CDT) BASOPHILS 0.3 0.0 - 1.0 % [facility] MPV 10.0 8.9 - 12.8 Fl [facility] BASOPHILS ABSOLUTE 0.0 0.0 - 0.2 K/ul [facility] HEMOGLOBIN 14.7 12.0 - 16.0 g/dL [facility] MONOCYTES 7.6 2.0 - 10.0 % [facility] RDW 13.6 11.0 - 14.5 % [facility] MONOCYTE ABSOLUTE 0.9(H) 0.1 - 0.6 K/ul [facility] WBC 11.9(H) 4.8 - 10.8 K/ul [facility] NEUTROPHILS 75.7(H) 42.2 - 75.2 % [facility] MCH 28.4 27.0 - 34.0 pg [facility] NEUTROPHIL ABSOLUTE 9.0(H) 2.0 - 8.0 K/ul [facility] HEM COMMENT REDRAWN:15 11 [facility] HEMATOCRIT 46.8(H) 36.0 - 46.0 % [facility] PLATELETS 354 140 - 440 K/ul [facility] EOSINOPHIL ABSOLUTE 0.1 0.0 - 0.7 K/ul [facility] EOSINOPHILS 0.9 0.0 - 7.0 % [facility] RBC 5.18 4.20 - 5.40 Mil/ul [facility] MCHC 31.4 30.0 - 35.0 g/dL [facility] LYMPHOCYTE ABSOLUTE 1.9 1.2 - 4.0 K/ul [facility] LYMPHOCYTES 15.5(L) 24.0 - 44.0 % [facility] MCV 90.3 84.0 - 103.0 Fl [facility] Blood specimen (specimen) 02/04/2008 10:22 PM CDT 02/04/2008 10:22 PM CDT us Sushil Enrique MD HEMATOLOGY ORDERABLES Edited [facility] CLIA# [id number] [address] [place] [address] * (ABNORMAL) POC GLUCOSE (02/04/2008 8:43 PM CDT) GLUCOSE POC 225(H) 60 - 100 mg/dL [facility] Venous blood specimen (specimen) 02/04/2008 8:43 PM CDT 02/04/2008 11:46 PM CDT us Sushil Enrique MD POINT OF CARE TESTING Final Res ult Performing Organization Address [facility] Co de Phone Number [facility] CLIA# [id number] [address] [place] [address] * (ABNORMAL) POC GLUCOSE (02/04/2008 5:23 PM CDT) GLUCOSE POC 153(H) 60 - 100 mg/dL [facility] Venous blood specimen (specimen) 02/04/2008 5:23 PM CDT 02/04/2008 11:42 PM CDT us Sushil Enrique MD POINT OF CARE TESTING Final Res ult Performing Organization Address [facility] Co de Phone Number [facility] CLIA# [id number] [address] [place] [address] * PHENYTOIN LEVEL, TOTAL (02/04/2008 3:11 PM CDT) PHENYTOIN TOTAL 12.4 10.0 - 20.0 ug/mL [facility] Blood specimen (specimen) 02/04/2008 3:11 PM CDT 02/04/2008 3:32 PM CDT us Sushil Enrique MD CHEMISTRY ORDERABLES Final Resu lt Performing Organization Address City/[facility]/ZIP Co de Phone Number [facility] CLIA# [id number] [address] [place] [address] * AMYLASE (02/04/2008 3:11 PM CDT) Pathologist [facility] AMYLASE 20 20 - 104 U/L [facility] Blood specimen (specimen) 02/04/2008 3:11 PM CDT 02/04/2008 3:32 PM CDT Sushil Enrique MD CHEMISTRY ORDERABLES Final Resu lt [facility] CLIA# [id number] [address] [place] [address] * (ABNORMAL) COMPREHENSIVE METABOLIC PANEL (02/04/2008 3:11 PM CDT) [facility] ALBUMIN 4.0 3.5 - 5.0 g/dL [facility] POTASSIUM 3.8 3.5 - 5.0 mEq/L [facility] GLOBULIN (CALC) 3.0 2.4 - 3.9 g/dL [facility] CREATININE 1.2 0.7 - 1.2 mg/dL [facility] CALCIUM 9.3 8.4 - 10.5 mg/dL [facility] ALT 28 4 - 36 IU/L [facility] OSMOLALITY, CALCULATED 290 275 - 295 mOsm/Kg [facility] GLUCOSE 156(H) 70 - 110 mg/dL [facility] CHLORIDE 99 95 - 110 mEq/L [facility] ALKALINE PHOSPHATASE 103(H) 25 - 100 U/L [facility] ALBUMIN/GLOBULIN RATIO 1.3 1.0 - 2.3 [facility] SODIUM 139 136 - 145 mEq/L [facility] TOTAL PROTEIN 7.0 6.3 - 8.2 g/dL [facility] BILIRUBIN TOTAL 0.2(L) 0.3 - 1.2 mg/dL [facility] BUN 15 7 - 17 mg/dL [facility] AST 24 8 - 33 U/L [facility] CO2 32 22 - 32 mmol/l [facility] ANION GAP 12 9 - 20 mEq/L [facility] Blood specimen (specimen) 02/04/2008 3:11 PM CDT 02/04/2008 3:32 PM CDT Sushil Enrique MD CHEMISTRY ORDERABLES Final Resu lt Performing Organization Address [facility] Co de Phone Number [facility] CLIA# [id number] [address] [place] [address] * (ABNORMAL) POC GLUCOSE (02/04/2008 12:44 PM CDT) GLUCOSE POC 150(H) 60 - 100 mg/dL [facility] Venous blood specimen (specimen) 02/04/2008 12:44 PM CDT 02/04/2008 11:42 PM CDT Sushil Enrique MD POINT OF CARE TESTING Final Res ult Performing Organization Address [facility] de Phone Number [facility] CLIA# [id number] [address] [place] [address] * (ABNORMAL) POC GLUCOSE (02/04/2008 8:55 AM CDT) GLUCOSE POC 247(H) 60 - 100 mg/dL [facility] Venous blood specimen (specimen) 02/04/2008 8:55 AM CDT 02/04/2008 11:42 PM CDT Sushil Enrique MD POINT OF CARE TESTING Final Res ult Performing Organization Address [facility] de Phone Number [facility] CLIA# [id number] [address] [place] [address] * (ABNORMAL) POC GLUCOSE (02/03/2008 10:35 PM CDT) GLUCOSE POC 209(H) 60 - 100 mg/dL [facility] Venous blood specimen (specimen) 02/03/2008 10:35 PM CDT 02/04/2008 1:59 AM CDT Sushil Enrique MD POINT OF CARE TESTING Final Res ult Performing Organization Address [facility] Co de Phone Number [facility] CLIA# [id number] [address] [place] [address] * (ABNORMAL) POC GLUCOSE (02/03/2008 4:56 PM CDT) GLUCOSE POC 317(H) 60 - 100 mg/dL [facility] Venous blood specimen (specimen) 02/03/2008 4:56 PM CDT 02/04/2008 1:55 AM CDT us Sushil Enrique MD POINT OF CARE TESTING Final Res ult Performing Organization Address [facility] de Phone Number [facility] CLIA# [id number] [address] [place] [address] * (ABNORMAL) POC GLUCOSE (02/03/2008 11:53 AM CDT) GLUCOSE POC 213(H) 60 - 100 mg/dL [facility] Venous blood specimen (specimen) 02/03/2008 11:53 AM CDT 02/04/2008 11:08 AM CDT Sushil Enrique MD POINT OF CARE TESTING Final Res ult Performing Organization Address [facility] de Phone Number [facility] CLIA# [id number] [address] [place] [address] * (ABNORMAL) POC GLUCOSE (02/03/2008 5:16 AM CDT) GLUCOSE POC 256(H) 60 - 100 mg/dL [facility] Venous blood specimen (specimen) 02/03/2008 5:16 AM CDT 02/03/2008 6:38 AM CDT Sushil Enrique MD POINT OF CARE TESTING Final Res ult Performing Organization Address [facility] Co de Phone Number [facility] CLIA# [id number] [address] [place] [address] * PHENYTOIN LEVEL, TOTAL (02/03/2008 4:06 AM CDT) PHENYTOIN TOTAL 15.8 10.0 - 20.0 ug/mL [facility] Blood specimen (specimen) 02/03/2008 4:06 AM CDT 02/03/2008 4:06 AM CDT Sushil Enrique MD CHEMISTRY ORDERABLES Final Resu lt Performing Organization Address [facility] de Phone Number [facility] CLIA# [id number] [address] [place] [address] * (ABNORMAL) POC GLUCOSE (02/02/2008 8:14 PM CDT) GLUCOSE POC 189(H) 60 - 100 mg/dL [facility] Venous blood specimen (specimen) 02/02/2008 8:14 PM CDT 02/03/2008 6:38 AM CDT Sushil Enrique MD POINT OF CARE TESTING Final Res ult Performing Organization Address [facility] de Phone Number [facility] CLIA# [id number] [address] [place] [address] * (ABNORMAL) POC GLUCOSE (02/02/2008 4:34 PM CDT) GLUCOSE POC 243(H) 60 - 100 mg/dL [facility] Venous blood specimen (specimen) 02/02/2008 4:34 PM CDT 02/03/2008 6:38 AM CDT us Sushil Enrique MD POINT OF CARE TESTING Final Res ult Performing Organization Address [facility] de Phone Number [facility] CLIA# [id number] [address] [place] [address] * PHENYTOIN LEVEL, TOTAL (02/02/2008 3:19 PM CDT) PHENYTOIN TOTAL 18.5 10.0 - 20.0 ug/mL [facility] Blood specimen (specimen) 02/02/2008 3:19 PM CDT 02/02/2008 3:28 PM CDT us Marley Dietrich MD CHEMISTRY ORDERABLES Final Resul t Performing Organization Address [facility] Phone Number [facility] CLIA# [id number] [address] [place] [address] * (ABNORMAL) POC GLUCOSE (02/02/2008 1:27 PM CDT) GLUCOSE POC 386(H) 60 - 100 mg/dL [facility] Venous blood specimen (specimen) 02/02/2008 1:27 PM CDT 02/03/2008 6:38 AM CDT us Sushil Enrique MD POINT OF CARE TESTING Final Res ult Performing Organization Address [facility] de Phone Number [facility] CLIA# [id number] [address] [place] [address] * (ABNORMAL) PHENYTOIN LEVEL, TOTAL (02/02/2008 12:11 PM CDT) PHENYTOIN TOTAL 0.9(L) 10.0 - 20.0 ug/mL [facility] Blood specimen (specimen) 02/02/2008 12:11 PM CDT 02/02/2008 12:23 PM CDT Sushil Enrique MD CHEMISTRY ORDERABLES Final Resu lt Performing Organization Address [facility] Co de Phone Number [facility] CLIA# [id number] [address] [place] [address] * (ABNORMAL) POC GLUCOSE (02/02/2008 12:08 PM CDT) GLUCOSE POC 401(H) 60 - 100 mg/dL [facility] Venous blood specimen (specimen) 02/02/2008 12:08 PM CDT 02/03/2008 6:38 AM CDT us Sushil Enrique MD POINT OF CARE TESTING Final Res ult Performing Organization Address [facility] de Phone Number [facility] CLIA# [id number] [address] [place] [address] * MRSA CULTURE (02/02/2008 9:56 AM CDT) FINAL REPORT Culture screen for MRSA negative INTERFACE SYSTEM 02/02/2008 9:56 AM CDT 02/02/2008 8:37 PM CDT us Sushil Enrique MD MICROBIOLOGY - GENERAL ORDERABL ES Final Result Performing Organization Address [facility] de Phone Number INTERFACE SYSTEM Refer to clinic/hospital department * (ABNORMAL) POC GLUCOSE (02/02/2008 6:40 AM CDT) GLUCOSE POC 393(H) 60 - 100 mg/dL [facility] Venous blood specimen (specimen) 02/02/2008 6:40 AM CDT 02/03/2008 1:57 AM CDT us uSshil Enrique MD POINT OF CARE TESTING Final Res ult Performing Organization Address [facility] Co de Phone Number [facility] CLIA# [id number] [address] [place] [address] * (ABNORMAL) LIPID PANEL (02/02/2008 6:10 AM CDT) CHOLESTEROL 220(H) 0 - 200 mg/dL [facility] Comment: On 01/23/2008 [facility] changed the cholesterol reference range to 0-200 mg/dl. This is the recommendation of the National Cholesterol Education Program (NCEP-ATPIII). CALCULATED LDL CHOLESTEROL 117(H) 0 - 100 mg/dL [facility] Comment: On 01/23/2008 [facility] changed the LDL reference range to 0- 100 mg/dl. This is the recommendation of the National Cholesterol Education Program (NCEP-ATPIII). HDL 40 40 - 60 mg/dL [facility] CALCULATED TOTAL CHOLESTEROL TO HDL RATIO 5.50(H) 3.27 - 4.44 [facility] TRIGLYCERIDE 315(H) 0 - 150 mg/dL [facility] Comment: On 01/23/2008, [facility] changed the triglyceride reference range to 0-150 mg/dl. This is the recommendation of the National Cholesterol Education Program (NCEP-ATPIII). Blood specimen (specimen) 02/02/2008 6:10 AM CDT 02/02/2008 6:31 AM CDT us Sushil Enrique MD CHEMISTRY ORDERABLES Final Resu lt [facility] CLIA# [id number] [address] [place] [address] * (ABNORMAL) URINALYSIS (02/02/2008 5:10 AM CDT) Pathologist [facility] LEUKOCYTE ESTERASE UA NEGATIVE NEGATIVE [facility] KETONES UA NEGATIVE NEGATIVE [facility] MICRO EXAM No No [facility] COLOR UA Yellow Straw [facility] PROTEIN UA NEGATIVE NEGATIVE [facility] BLOOD UA NEGATIVE NEGATIVE [facility] NITRITE UA NEGATIVE NEGATIVE [facility] UROBILINOGEN UA 0.2 0.2 [facility] CLARITY UA Clear Clear [facility] SPECIFIC GRAVITY UA 1.020 <=1.005 [facility] GLUCOSE UA >=1000 mg/dl(A) NEGATIVE [facility] PH UA 6.0 5.0 - 9.0 [facility] BILIRUBIN UA NEGATIVE NEGATIVE [facility] Urine specimen (specimen) 02/02/2008 5:10 AM CDT 02/02/2008 5:10 AM CDT us Marcelino Sauceda MD URINE ORDERABLES Final Result [facility] CLIA# [id number] [address] [place] [address] * MRI BRAIN W WO CONTRAST (02/01/2008 [...] calvarial lesions. Additional thin section postcontrast fat-saturated S1rgyythrp images were obtained through the orbits. No [...] CDT) RBC 5.24 4.20 - 5.40 Mil/ul [facility] LYMPHOCYTES 23.8(L) 24.0 - 44.0 % [facility] MCHC 32.7 30.0 - 35.0 g/dL [facility] LYMPHOCYTE ABSOLUTE 2.2 1.2 - 4.0 K/ul [facility] MCV 87.0 84.0 - 103.0 Fl [facility] MPV 9.4 8.9 - 12.8 Fl [facility] BASOPHILS ABSOLUTE 0.0 0.0 - 0.2 K/ul [facility] BASOPHILS 0.2 0.0 - 1.0 % [facility] HEMOGLOBIN 14.9 12.0 - 16.0 g/dL [facility] RDW 13.2 11.0 - 14.5 % [facility] MONOCYTE ABSOLUTE 0.6 0.1 - 0.6 K/ul [facility] MONOCYTES 6.4 2.0 - 10.0 % [facility] WBC 9.2 4.8 - 10.8 K/ul [facility] MCH 28.4 27.0 - 34.0 pg [facility] NEUTROPHIL ABSOLUTE 6.2 2.0 - 8.0 K/ul [facility] NEUTROPHILS 67.4 42.2 - 75.2 % [facility] HEMATOCRIT 45.6 36.0 - 46.0 % [facility] EOSINOPHILS 2.2 0.0 - 7.0 % [facility] PLATELETS 282 140 - 440 K/ul [facility] EOSINOPHIL ABSOLUTE 0.2 0.0 - 0.7 K/ul [facility] Blood specimen (specimen) 02/01/2008 7:34 PM CDT 02/01/2008 7:34 PM CDT us Marcelino Sauceda MD HEMATOLOGY ORDERABLES Final Res ult [facility] CLIA# [id number] [address] [place] [address] * PT AND APTT (02/01/2008 7:34 PM CDT) PROTIME 13.5 12.8 - 15.8 Secs [facility] Comment:As of 2007 not e change in normal range. INR 0.9 [facility] Comment: Expected Values for INR: [...] Anticoagulation available from the pharmacy Ciara Bradley [phone] PTT 27.7 22.5 - 36.5 Secs [facility] Comment: Therapeutic Range: Hi-level PE/DVT heparin protocol 80.1 -95.0 sec Lo-level PE/DVT heparin protocol 67.1 - 80.0 sec Cardiac Heparin Protocol 67.1 - 85.0 sec Neuro Heparin Protocol 67.1 - 80.0 sec As of 12/08/2007 note change in APTT Normal Range. Blood specimen (specimen) 02/01/2008 7:34 PM CDT 02/01/2008 7:34 PM CDT us Marcelino Sauceda MD HEMATOLOGY ORDERABLES Edited [facility] CLIA# [id number] [address] [place] [address] * (ABNORMAL) BASIC METABOLIC PANEL (02/01/2008 7:34 PM CDT) OSMOLALITY, CALCULATED 296(H) 275 - 295 mOsm/Kg [facility] POTASSIUM 3.9 3.5 - 5.0 mEq/L [facility] CREATININE 1.1 0.7 - 1.2 mg/dL [facility] CALCIUM 9.6 8.4 - 10.5 mg/dL [facility] GLUCOSE 283(H) 70 - 110 mg/dL [facility] CHLORIDE 100 95 - 110 mEq/L [facility] SODIUM 139 136 - 145 mEq/L [facility] ANION GAP 11 9 - 20 mEq/L [facility] BUN 13 7 - 17 mg/dL [facility] CO2 32 22 - 32 mmol/l [facility] Blood specimen (specimen) 02/01/2008 7:34 PM CDT 02/01/2008 7:34 PM CDT us Marcelino Sauceda MD CHEMISTRY ORDERABLES Final Resu lt Performing Organization Address City/State/[facility] Co de Phone Number [facility] CLIA# [id number] [address] [place] [address] documented in this encounter Visit Diagnoses Not on filedocumented in this encounter Care Teams Post Splitter Relationship Specialty Start Date End Date Adrienne March DO [address] [place] [address] PCP - General Family Practice 06/30/10 documented as of this encounter
--- OUTSIDE RECORDS SUMMARY | 2025-03-25 13:41 | XMS_ITS | Encounter Summary ---
Author Organization [facility] Address [address] [place] [address] Care Team Providers Care Rotor Winder Name Role Phone Adrienne March DO Primary Care Provider Encounter Details Date Type Department Care Team (Latest Contact Info) Description 05/27/2004 Outpatient Historical [facility] [address] [place] [phone] Jose Luis Mcmillan MD [address] [place] [address] CERVICALGIA (Primary Dx); Cervical spondylosis; JOINT PAIN-SHLDER Social History Tobacco Use Types Packs/Day Years Used Date Smoking Tobacco: Never Assessed Comments Unknown Sex and Gender Information Value Date Recorded Sex Assigned at Not on file 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
--- OUTSIDE RECORDS SUMMARY | 2025-03-25 13:41 | XMS_ITS | Encounter Summary ---
Author Organization [facility] Address [address] [place] [address] Care Team Providers Care Water Hauler Name Role Phone Adrienne March DO Primary Care Provider +[phone]- [phone] Encounter Details Date Type Department Care Team (Latest Contact Info) Description 01/06/2005 Outpatient [facility] Podiatry-[facility] Kimberly [address] [place] [phone] Abel Hurtado, MARCE NO ADDRESS ON FILE CALCANEAL SPUR (Primary Dx); EXOSTOSIS, SITE NOS Social History Tobacco Use Types Packs/Day Years Used Date Smoking Tobacco: Never Assessed Comments Unknown Sex and Gender Information Value Date Recorded Sex Assigned at Not on file 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
--- OUTSIDE RECORDS SUMMARY | 2025-03-25 13:41 | XMS_ITS | Encounter Summary ---
Author Organization [facility] Address [address] [place] [address] Care Team Providers Care Denial Management Representative Name Role Phone Adrienne March Primary Care Provider Encounter Details Date Type Department Care Team (Latest Contact Info) Description 01/13/2007 Outpatient Historical [facility] Cardiac Supervisor Salvage [address] [place] [phone] López Harry MD NO ADDRESS ON FILE Unspecified Chest Pain (Primary Dx) Social History Tobacco Use Types Packs/Day Years Used Date Smoking Tobacco: Never Assessed Comments Unknown Sex and Gender Information Value Date Recorded Sex Assigned at Not on file 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 Gender Identity Not on file Sexual [...] Goal INR 3.0; range 2.5 - 3.5 POST-OH Goal INR 2.5; range 2.0 - 3.0 [...] HEMATOLOGY ORDERABLES Edite d Performing Organization Address [facility] Phone Number INTERFACE SYSTEM Refer to clinic/hospital department * C-REACTIVE PROTEIN (01/13/2007 6:04 AM CDT) CRP 0.98 0.00 - 1.00 mg/dL INTERFACE SYSTEM 01/13/2007 6:04 AM CDT us López Harry MD CHEMISTRY ORDERABLES Edited Performing Organization Address [facility] Phone Number INTERFACE SYSTEM Refer to clinic/hospital [...] Primary documented in this encounter Care Teams Denial Management Representative Relationship Specialty Start Date End Date Adrienne March DO [address] [place] [address] PCP - General Family Practice 06/30/10 documented as of this encounter
--- OUTSIDE RECORDS SUMMARY | 2025-03-25 13:42 | XMS_ITS | Encounter Summary ---
Author Organization [facility] Address [address] [place] [address] Care Team Providers Care Intervention Teacher Name Role Phone Adrienne March DO Primary Care Provider Encounter Details Date Type Department Care Team (Late st Contact Info) Description 06/11/2000 Outpatient Historical [facility] Imaging Services-[facility] Kimberly [address] [place] [phone] Social History Tobacco Use Types Packs/Day Years Used Date Smoking Tobacco: Never Assessed Comments Unknown Sex and Gender Information Value Date Recorded Sex Assigned at Not on file 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
--- OUTSIDE RECORDS SUMMARY | 2025-03-25 13:42 | XMS_ITS | Encounter Summary ---
Author Organization [facility] Address [address] [place] [address] Care Team Providers Care Technical Professional Name Role Phone Adrienne March DO Primary Care Provider [phone] Encounter Details Date Type Department Care Team (Late st Contact Info) Description 04/11/1999 Outpatient Historical [facility] INTERNAL MED Umang Urrutia MD [address] [place] [phone] Cervicalgia (Primary Dx); Brachial neuritis or radiculitis NOS; Obesity, unspecified; Encounter for long-term (current) use of other medications Social History Tobacco Use Types Packs/Day Years Used Date Smoking Tobacco: Never Assessed Comments Unknown Sex and Gender Information Value Date Recorded Sex Assigned at Not on file 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
--- OUTSIDE RECORDS SUMMARY | 2025-03-25 13:42 | XMS_ITS | Encounter Summary ---
Author Organization [facility] Address [address] [place] [address] Care Team Providers Care Airplane And Engine Inspector Name Role Phone Adrienne March DO Primary Care Provider +1- [phone] Encounter Details Date Type Department Care Team (Latest Contact Info) Description 07/14/2000 Outpatient Historical [facility] [address] [phone] Lesly Jones MD NO ADDRESS ON FILE Other screening mammogram (Primary Dx) Social History Tobacco Use Types Packs/Day Years Used Date Smoking Tobacco: Never Assessed Comments Unknown Sex and Gender Information Value Date Recorded Sex Assigned at Not on file Legal Sex Female 3:34 AM CHILD CARE CENTRE DIRECTOR Gender Identity Not on file Sexual Orientation Not on file documented as of this encounter Plan of Treatment Not on file documented as of this encounter Visit Diagnoses Diagnosis Other screening mammogram- Primary documented in this encounter Care Teams Airplane And Engine Inspector Relationship Specialty Start Date End Date Adrienne March DO [address] [place] [address] PCP - General Family Practice 06/30/10 documented as of this encounter
--- OUTSIDE RECORDS SUMMARY | 2025-03-25 13:42 | XMS_ITS | Encounter Summary ---
Author Organization [facility] Address [address] Segaln: [place] [address] Care Team Providers Care Putaway Driver Name Role Phone Adrienne March DO Primary Care Provider +1- [phone] Encounter Details Date Type Department Care Team (Late st Contact Info) Description 09/26/1999 Outpatient Historical Umang Urrutia MD [address] [place] [phone] Social History Tobacco Use Types Packs/Day Years Used Date Smoking Tobacco: Never Assessed Comments Unknown Sex and Gender Information Value Date Recorded Sex Assigned at Not on file Legal Sex Female 3:34 AM SERVICE MANAGER Gender Identity Not on file Sexual Orientation Not on file documented as of this encounter Plan of Treatment Not on file documented as of this encounter Visit Diagnoses Not on filedocumented in this encounter Care Teams Putaway Driver Relationship Specialty Start Date End Date Adrienne March DO [address] [place] [address] PCP - General Family Practice 06/30/10 documented as of this encounter
--- OUTSIDE RECORDS SUMMARY | 2025-03-25 13:42 | XMS_ITS | Encounter Summary ---
Author Organization [facility] Address [address] [place] [address] Care Team Providers Care Poultry Helper Name Role Phone Adrienne March DO Primary Care Provider Encounter Details Date Type Department Care Team (Latest Contact Info) Description 09/24/1997 Outpatient Historical [facility] Umang Urrutia MD [address] [place] [address] Other chronic nonalcoholic liver disease (Primary Dx); Other nonspecific abnormal serum enzyme levels; Sprain of neck; Enthesopathy of ankle and tarsus, unspecified Social History Tobacco Use Types Packs/Day Years Used Date Smoking Tobacco: Never Assessed Comments Unknown Sex and Gender Information Value Date Recorded Sex Assigned at Not on file Legal Sex Female 3:34 AM SPECTROSCOPIST Gender Identity Not on file Sexual Orientation Not on file documented as of this encounter Plan of Treatment Not on file documented as of this encounter Visit Diagnoses Diagnosis Other chronic nonalcoholic liver disease- Primary Other nonspecific abnormal serum enzyme levels Sprain of neck Neck sprain and strain Enthesopathy of ankle and tarsus, unspecified documented in this encounter Care Teams Poultry Helper Relationship Specialty Start Date End Date Adrienne March DO [address] [place] [address] PCP - General Family Practice 06/30/10 documented as of this encounter
--- OUTSIDE RECORDS SUMMARY | 2025-03-25 13:42 | XMS_ITS | Encounter Summary ---
Author Organization [facility] Address [address] [place] [address] Care Team Providers Care Jewel Bearing Facer Name Role Phone Adrienne March DO Primary Care Provider [phone] Encounter Details Date Type Department Care Team (Late st Contact Info) Description 04/26/1998 Outpatient [facility] [address] [phone] Flor Belcher MD NO ADDRESS ON FILE Other screening mammogram (Primary Dx) Social History Tobacco Use Types Packs/Day Years Used Date Smoking Tobacco: Never Assessed Comments Unknown Sex and Gender Information Value Date Recorded Sex Assigned at Not on file Legal Sex Female 3:34 AM FIRM ADMINISTRATOR Gender Identity Not on file Sexual Orientation Not on file documented as of this encounter Plan of Treatment Not on file documented as of this encounter Visit Diagnoses Diagnosis Other screening mammogram- Primary documented in this encounter Care Teams Jewel Bearing Facer Relationship Specialty Start Date End Date Adrienne March DO [address] [place] [address] PCP - General Family Practice 06/30/10 documented as of this encounter
--- OUTSIDE RECORDS SUMMARY | 2025-03-25 13:42 | XMS_ITS | Encounter Summary ---
Author Organization [facility] Address [address] [place] [address] Care Team Providers Care Type Caster Name Role Phone Adrienne March DO Primary Care Provider Encounter Details Date Type Department Care Team (Late st Contact Info) Description 04/16/1999 Outpatient Historical [facility] Neurology [address] [place] [phone] Lukas Vang MD [address] [place] [address] Pain in limb (Primary Dx) Social History Tobacco Use Types Packs/Day Years Used Date Smoking Tobacco: Never Assessed Comments Unknown Sex and Gender Information Value Date Recorded Sex Assigned at Not on file Legal Sex Female 3:34 AM ZINC PLATE CUTTER Gender Identity Not on file Sexual Orientation Not on file documented as of this encounter Plan of Treatment Not on file documented as of this encounter Visit Diagnoses Diagnosis Pain in limb- Primary Pain in soft tissues of limb documented in this encounter Care Teams Type Caster Relationship Specialty Start Date End Date Adrienne March DO [address] [place] [address] PCP - General Family Practice 06/30/10 documented as of this encounter
--- OUTSIDE RECORDS SUMMARY | 2025-03-25 13:42 | XMS_ITS | Encounter Summary ---
Author Organization [facility] Address [address] [place] [address] Care Team Providers Care Steward Dishwasher Name Role Phone Adrienne March DO Primary Care Provider Encounter Details Date Type Department Care Team (Late st Contact Info) Description 10/02/1998 Outpatient Historical [facility] INTERNAL MED Umang Urrutia MD [address] [place] [address] Cervical disc displacmnt (Primary Dx); Premature beats, unspecified; Other specified cardiac dysrhythmias(427.89 ) Social History Tobacco Use Types Packs/Day Years Used Date Smoking Tobacco: Never Assessed Comments Unknown Sex and Gender Information Value Date Recorded Sex Assigned at Not on file Legal Sex Female 3:34 AM COAGULANT DIPPER Gender Identity Not on file Sexual Orientation Not on file documented as of this encounter Plan of Treatment Not on file documented as of this encounter Visit Diagnoses Diagnosis Cervical disc displacmnt- Primary Displacement of cervical intervertebral disc without myelopathy Premature beats, unspecified Other specified cardiac dysrhythmias(427.89) Other specified cardiac dysrhythmias documented in this encounter Care Teams Steward Dishwasher Relationship Specialty Start Date End Date Adrienne March DO [address] [place] [address] PCP - General Family Practice 06/30/10 documented as of this encounter
--- OUTSIDE RECORDS SUMMARY | 2025-03-25 13:42 | XMS_ITS | Encounter Summary ---
Author Organization [facility] Address [address] [place] [address] Care Team Providers Care Operator/Assistant Foreman Name Role Phone Adrienne March DO Primary Care Provider [phone] Encounter Details Date Type Department Care Team (Latest Contact Info) Description 02/18/2001 Outpatient Historical [facility] Internal Medicine- [address] [place] [address] Umang Urrutia MD [address] [place] [address] Type II or unspecified type diabetes mellitus without mention of complication, not stated as uncontrolled (Primary Dx); Hypercalcemia Social History Tobacco Use Types Packs/Day Years Used Date Smoking Tobacco: Never Assessed Comments Unknown Sex and Gender Information Value Date Recorded Sex Assigned at Not on file Legal Sex Female 3:34 AM PREBOARDER Gender Identity Not on file Sexual Orientation Not on file documented as of this encounter Plan of Treatment Not on file documented as of this encounter Visit Diagnoses Diagnosis Type II or unspecified type diabetes mellitus without mention of complication, not stated as uncontrolled- Primary Hypercalcemia documented in this encounter Care Teams Operator/Assistant Foreman Relationship Specialty Start Date End Date Adrienne March DO [address] [place] [address] PCP - General Family Practice 06/30/10 documented as of this encounter
--- OUTSIDE RECORDS SUMMARY | 2025-03-25 13:42 | XMS_ITS | Encounter Summary ---
Author Organization [facility] Address [address] [place] [address] Care Team Providers Care It Desktop Support Technician Name Role Phone Adrienne March DO Primary Care Provider +1- [phone] Encounter Details Date Type Department Care Team (Latest Contact Info) Description 07/14/2000 Outpatient Historical [facility] Cardiology- [place] [address] [place] [phone] Lukas Degroot MD NO ADDRESS ON FILE Precordial pain (Primary Dx); Palpitations Social History Tobacco Use Types Packs/Day Years Used Date Smoking Tobacco: Never Assessed Comments Unknown Sex and Gender Information Value Date Recorded Sex Assigned at Not on file Legal Sex Female 3:34 AM REFINERY PIPELINE OPERATOR Gender Identity Not on file Sexual Orientation Not on file documented as of this encounter Plan of Treatment Not on file documented as of this encounter Visit Diagnoses Diagnosis Precordial pain- Primary Palpitations documented in this encounter Care Teams It Desktop Support Technician Relationship Specialty Start Date End Date Adrienne March DO [address] [place] [address] PCP - General Family Practice 06/30/10 documented as of this encounter
--- OUTSIDE RECORDS SUMMARY | 2025-03-25 13:42 | XMS_ITS | Encounter Summary ---
Author Organization [facility] Address [address] [place] [address] Care Team Providers Care Welding Machine Operator Gas Metal Arc Name Role Phone Adrienne March DO Primary Care Provider Encounter Details Date Type Department Care Team (Latest Contact Info) Description 03/26/1998 Outpatient Historical [facility] INTERNAL MED Umang Urrutia MD [address] [place] [phone] Headache(784.0) (Primary Dx); Other specified cardiac dysrhythmias(427.89); Nonspecific abnormal electrocardiogram (ECG) (EKG); Edema; Pure hypercholesterolem; Encounter for long-term (current) use of other medications; Abnormal glucose; Other abnormal blood chemistry Social History Tobacco Use Types Packs/Day Years Used Date Smoking Tobacco: Never Assessed Comments Unknown Sex and Gender Information Value Date Recorded Sex Assigned at Not on file Legal Sex Female 3:34 AM RIGGING MAN Gender Identity Not on file Sexual [...] chemistry documented in this encounter Care Teams Welding Machine Operator Gas Metal Arc Relationship Specialty Start Date End Date Adrienne March DO [address] [place] [phone] PCP - General Family Practice 06/30/10 documented as of this encounter
--- OUTSIDE RECORDS SUMMARY | 2025-03-25 13:42 | XMS_ITS | Encounter Summary ---
Author Organization [facility] Address [address] [place] [address] Care Team Providers Care Assistant Women'S Basketball Coach Name Role Phone Adrienne March DO Primary Care Provider Encounter Details Date Type Department Care Team (Late st Contact Info) Description 02/28/1999 Outpatient Historical [facility] INTERNAL MED Umang Urrutia MD [address] [place] [phone] Brachial neuritis or radiculitis NOS (Primary Dx); Adhesive capsulit shlder; Adjustment disorder with anxiety Social History Tobacco Use Types Packs/Day Years Used Date Smoking Tobacco: Never Assessed Comments Unknown Sex and Gender Information Value Date Recorded Sex Assigned at Not on file Legal Sex Female 3:34 AM CONTINUOUS IMPROVEMENT FACILITATOR Gender Identity Not on file Sexual Orientation Not on file documented as of this encounter Plan of Treatment Not on file documented as of this encounter Visit Diagnoses Diagnosis Brachial neuritis or radiculitis NOS- Primary Brachial neuritis or radiculitis nos Adhesive capsulit shlder Adhesive capsulitis of shoulder Adjustment disorder with anxiety documented in this encounter Care Teams Assistant Women'S Basketball Coach Relationship Specialty Start Date End Date Adrienne March DO [address] [place] [address] PCP - General Family Practice 06/30/10 documented as of this encounter
--- OUTSIDE RECORDS SUMMARY | 2025-03-25 13:42 | XMS_ITS | Encounter Summary ---
Author Organization [facility] Address [address] [place] [address] Care Team Providers Care Resume Writer Name Role Phone Adrienne March DO Primary Care Provider Encounter Details Date Type Department Care Team (Latest Contact Info) Description 06/09/2000 Outpatient Historical [facility] [address] [address] Alexei Elizabeth MD [address] [place] [address] Lipoma of unspecified site (Primary Dx); Cardiomegaly; Edema Social History Tobacco Use Types Packs/Day Years Used Date Smoking Tobacco: Never Assessed Comments Unknown Sex and Gender Information Value Date Recorded Sex Assigned at Not on file Legal Sex Female 3:34 AM METAL MOCKUP MAKER Gender Identity Not on file Sexual Orientation Not on file documented as of this encounter Plan of Treatment Not on file documented as of this encounter Visit Diagnoses Diagnosis Lipoma of unspecified site- Primary Cardiomegaly Edema documented in this encounter Care Teams Resume Writer Relationship Specialty Start Date End Date Adrienne March DO [address] [place] [address] PCP - General Family Practice 06/30/10 documented as of this encounter
--- OUTSIDE RECORDS SUMMARY | 2025-03-25 13:42 | XMS_ITS | Encounter Summary ---
Author Organization [facility] Address [address] [place] [address] Care Team Providers Care Hand Filer Balance Wheel Name Role Phone Adrienne March DO Primary Care Provider Encounter Details Date Type Department Care Team (Latest Contact Info) Description 11/10/1999 Outpatient Historical [facility] Umang Urrutia MD [address] [place] [phone] Hypopotassemia (Primary Dx); Unspecified essential hypertension; Encounter for long-term (current) use of other medications Social History Tobacco Use Types Packs/Day Years Used Date Smoking Tobacco: Never Assessed Comments Unknown Sex and Gender Information Value Date Recorded Sex Assigned at Not on file Legal Sex Female 3:34 AM GARMENT SORTER Gender Identity Not on file Sexual Orientation Not on file documented as of this encounter Plan of Treatment Not on file documented as of this encounter Visit Diagnoses Diagnosis Hypopotassemia- Primary Unspecified essential hypertension Encounter for long-term (current) use of other medications documented in this encounter Care Teams Hand Filer Balance Wheel Relationship Specialty Start Date End Date Adrienne March DO [address] [place] [address] PCP - General Family Practice 06/30/10 documented as of this encounter
--- OUTSIDE RECORDS SUMMARY | 2025-03-25 13:42 | XMS_ITS | Encounter Summary ---
Author Organization [facility] Address [address] [place] [address] Care Team Providers Care Supervisor Asbestos Removal Name Role Phone Adrienne March DO Primary Care Provider Encounter Details Date Type Department Care Team (Latest Contact Info) Description 09/25/1998 Outpatient Historical HIS [facility] INTERNAL MED Umang Urrutia MD [address] [place] [phone] Displacement of intervertebral disc, site unspecified, without myelopathy (Primary Dx); Adhesive capsulit shlder Social History Tobacco Use Types Packs/Day Years Used Date Smoking Tobacco: Never Assessed Comments Unknown Sex and Gender Information Value Date Recorded Sex Assigned at Not on file Legal Sex Female 3:34 AM FIG BAR MACHINE OPERATOR Gender Identity Not on file Sexual Orientation Not on file documented as of this encounter Plan of Treatment Not on file documented as of this encounter Visit Diagnoses Diagnosis Displacement of intervertebral disc, site unspecified, without myelopathy- Primary Adhesive capsulit shlder Adhesive capsulitis of shoulder documented in this encounter Care Teams Supervisor Asbestos Removal Relationship Specialty Start Date End Date Adrienne March DO [address] [place] [address] PCP - General Family Practice 06/30/10 documented as of this encounter
--- OUTSIDE RECORDS SUMMARY | 2025-03-25 13:42 | XMS_ITS | Encounter Summary ---
Author Organization [facility] Address [address] [place] [address] Care Team Providers Care Director Consumer Affairs Name Role Phone Adrienne March DO Primary Care Provider [phone] Encounter Details Date Type Department Care Team (Latest Contact Info) Description 01/27/2001 Outpatient [facility] Podiatry-[facility] Kimberly [address] [place] [address] Abel Hurtado, MARCE NO ADDRESS ON FILE Calcaneal spur (Primary Dx); Tenosynovitis of foot and ankle; Cellulitis and abscess of foot, except toes; Pain in limb Social History Tobacco Use Types Packs/Day Years Used Date Smoking Tobacco: Never Assessed Comments Unknown Sex and Gender Information Value Date Recorded Sex Assigned at Not on file Legal Sex Female 3:34 AM NURSING UNIT MANAGER Gender Identity Not on file Sexual Orientation Not on file documented as of this encounter Plan of Treatment Not on file documented as of this encounter Visit Diagnoses Diagnosis Calcaneal spur- Primary Tenosynovitis of foot and ankle Cellulitis and abscess of foot, except toes Pain in limb Pain in soft tissues of limb documented in this encounter Care Teams Director Consumer Affairs Relationship Specialty Start Date End Date Adrienne March DO [address] [place] [phone] PCP - General Family Practice 06/30/10 documented as of this encounter
--- OUTSIDE RECORDS SUMMARY | 2025-03-25 13:42 | XMS_ITS | Encounter Summary ---
Author Organization [facility] Address [address] [place] [address] Care Team Providers Care Interior Design Professor Name Role Phone Adrienne March DO Primary Care Provider [phone] Encounter Details Date Type Department Care Team (Late st Contact Info) Description 09/27/1998 Outpatient Historical [facility] INTERNAL MED Umang Urrutia MD [address] [place] [address] Cervical disc displacmnt (Primary Dx); Encounter for long-term (current) use of other medications; Sprain rotator cuff Social History Tobacco Use Types Packs/Day Years Used Date Smoking Tobacco: Never Assessed Comments Unknown Sex and Gender Information Value Date Recorded Sex Assigned at Not on file Legal Sex Female 3:34 AM HAND SCUDDER Gender Identity Not on file Sexual Orientation Not on file documented as of this encounter Plan of Treatment Not on file documented as of this encounter Visit Diagnoses Diagnosis Cervical disc displacmnt- Primary Displacement of cervical intervertebral disc without myelopathy Encounter for long-term (current) use of other medications Sprain rotator cuff Rotator cuff (capsule) sprain documented in this encounter Care Teams Interior Design Professor Relationship Specialty Start Date End Date Adrienne March DO [address] [place] [address] PCP - General Family Practice 06/30/10 documented as of this encounter
--- OUTSIDE RECORDS SUMMARY | 2025-03-25 13:42 | XMS_ITS | Encounter Summary ---
Author Organization [facility] Address [address] [place] [address] Care Team Providers Care Claims Service Representative Name Role Phone Adrienne March DO Primary Care Provider Encounter Details Date Type Department Care Team (Late st Contact Info) Description 01/13/1999 Outpatient Historical HIS [facility] INTERNAL MED Umang Urrutia MD [address] [place] [address] Cervical spinal stenosis (Primary Dx); Viral labyrinthitis; Unspecified adjustment reaction Social History Tobacco Use Types Packs/Day Years Used Date Smoking Tobacco: Never Assessed Comments Unknown Sex and Gender Information Value Date Recorded Sex Assigned at Not on file Legal Sex Female 3:34 AM DATA PROCESSING OPERATOR Gender Identity Not on file Sexual Orientation Not on file documented as of this encounter Plan of Treatment Not on file documented as of this encounter Visit Diagnoses Diagnosis Cervical spinal stenosis- Primary Spinal stenosis in cervical region Viral labyrinthitis Unspecified adjustment reaction documented in this encounter Care Teams Claims Service Representative Relationship Specialty Start Date End Date Adrienne March DO [address] [place] [address] PCP - General Family Practice 06/30/10 documented as of this encounter
--- OUTSIDE RECORDS SUMMARY | 2025-03-25 13:42 | XMS_ITS | Encounter Summary ---
Author Organization [facility] Address [address] Segaln: [place] [address] Care Team Providers Care Computer Mechanic Name Role Phone Adrienne March DO Primary Care Provider [phone] Encounter Details Date Type Department Care Team (Late st Contact Info) Description 06/09/2000 Outpatient Historical Alexei Elizabeth MD [address] [place] [address] Social History Tobacco Use Types Packs/Day Years Used Date Smoking Tobacco: Never Assessed Comments Unknown Sex and Gender Information Value Date Recorded Sex Assigned at Not on file Legal Sex Female 3:34 AM COMPENSATION ADVISOR Gender Identity Not on file Sexual Orientation Not on file documented as of this encounter Plan of Treatment Not on file documented as of this encounter Visit Diagnoses Not on filedocumented in this encounter Care Teams Computer Mechanic Relationship Specialty Start Date End Date Adrienne March DO [address] [place] [address] PCP - General Family Practice 06/30/10 documented as of this encounter
--- OUTSIDE RECORDS SUMMARY | 2025-03-25 13:42 | XMS_ITS | Encounter Summary ---
Author Organization [facility] Address [address] [place] [address] Care Team Providers Care Director Diversity Name Role Phone Adrienne March DO Primary Care Provider Encounter Details Date Type Department Care Team (Late st Contact Info) Description 07/09/1998 Outpatient Historical [facility] INTERNAL MED Umang Urrutia MD [address] [place] [phone] Need vaccination-viral disease (Primary Dx) Social History Tobacco Use Types Packs/Day Years Used Date Smoking Tobacco: Never Assessed Comments Unknown Sex and Gender Information Value Date Recorded Sex Assigned at Not on file Legal Sex Female 3:34 AM UPKEEP MECHANIC Gender Identity Not on file Sexual Orientation Not on file documented as of this encounter Plan of Treatment Not on file documented as of this encounter Visit Diagnoses Diagnosis Need vaccination-viral disease- Primary Need for prophylactic vaccination and inoculation against other viral diseases documented in this encounter Care Teams Director Diversity Relationship Specialty Start Date End Date Adrienne March DO [address] [place] [address] PCP - General Family Practice 06/30/10 documented as of this encounter
--- OUTSIDE RECORDS SUMMARY | 2025-03-25 13:42 | XMS_ITS | Encounter Summary ---
Author Organization [facility] Address [address] [place] [address] Care Team Providers Care Biodiesel Product Development Manager Name Role Phone Adrienne March DO Primary Care Provider Encounter Details Date Type Department Care Team (Latest Contact Info) Description 08/31/2000 Outpatient Historical [facility] Internal Medicine- [address] [place] [phone] Umang Urrutia MD [address] [place] [address] Type II or unspecified type diabetes mellitus without mention of complication, not stated as uncontrolled (Primary Dx); Hepatitis, unspecified; Carpal tunnel syndrome; Need vaccination-viral disease Social History Tobacco Use Types Packs/Day Years Used Date Smoking Tobacco: Never Assessed Comments Unknown Sex and Gender Information Value Date Recorded Sex Assigned at Not on file Legal Sex Female 3:34 AM GLYCERIN SUPERVISOR Gender Identity Not on file Sexual [...] diseases documented in this encounter Care Teams Biodiesel Product Development Manager Relationship Specialty Start Date End Date Adrienne March DO [address] [place] [address] PCP - General Family Practice 06/30/10 documented as of this encounter
--- OUTSIDE RECORDS SUMMARY | 2025-03-25 13:42 | XMS_ITS | Encounter Summary ---
Author Organization [facility] Address [address] [place] [address] Care Team Providers Care Diesel Engine Fitter Name Role Phone Adrienne March DO Primary Care Provider Encounter Details Date Type Department Care Team (Latest Contact Info) Description 06/30/2000 Outpatient [facility] Internal Medicine- [address] [place] [phone] Umang Urrutia MD [address] [place] [address] Chest pain, unspecified (Primary Dx); Other and unspecified hyperlipidemia; Hepatitis, unspecified; Abnormal glucose; Pain in limb; Encounter for long-term (current) use of other medications; Edema; Unspecified urinary incontinence Social History Tobacco Use Types Packs/Day Years Used Date Smoking Tobacco: Never Assessed Comments Unknown Sex and Gender Information Value Date Recorded Sex Assigned at Not on file 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
--- OUTSIDE RECORDS SUMMARY | 2025-03-25 13:42 | XMS_ITS | Encounter Summary ---
Author Organization [facility] Address [address] [place] [address] Care Team Providers Care Supervisor Wall Mirror Department Name Role Phone Adrienne March DO Primary Care Provider [phone]- [phone] Encounter Details Date Type Department Care Team (Latest Contact Info) Description 05/09/1999 Outpatient Historical [facility] [address] [phone] Jaime Barba MD NO ADDRESS ON FILE Other screening mammogram (Primary Dx) Social History Tobacco Use Types Packs/Day Years Used Date Smoking Tobacco: Never Assessed Comments Unknown Sex and Gender Information Value Date Recorded Sex Assigned at Not on file Legal Sex Female 3:34 AM 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
--- OUTSIDE RECORDS SUMMARY | 2025-03-25 13:42 | XMS_ITS | Encounter Summary ---
Author Organization [facility] Address [address] Segaln: [place] [address] Care Team Providers Care Rim Fire Priming Operator Name Role Phone Adrienne March DO Primary Care Provider +1- [phone] Encounter Details Date Type Department Care Team (Late st Contact Info) Description 06/30/2000 Outpatient Historical Umang Urrutia MD [address] [place] [address] Social History Tobacco Use Types Packs/Day Years Used Date Smoking Tobacco: Never Assessed Comments Unknown Sex and Gender Information Value Date Recorded Sex Assigned at Not on file Legal Sex Female 3:34 AM CREATIVE LEAD Gender Identity Not on file Sexual Orientation Not on file documented as of this encounter Plan of Treatment Not on file documented as of this encounter Visit Diagnoses Not on filedocumented in this encounter Care Teams Rim Fire Priming Operator Relationship Specialty Start Date End Date Adrienne March DO [address] [place] [address] PCP - General Family Practice 06/30/10 documented as of this encounter
--- OUTSIDE RECORDS SUMMARY | 2025-03-25 13:42 | XMS_ITS | Encounter Summary ---
Author Organization [facility] Address [address] [place] [address] Care Team Providers Care Hand Bookbinder Name Role Phone Adrienne March DO Primary Care Provider Encounter Details Date Type Department Care Team (Late st Contact Info) Description 10/15/1998 Outpatient Historical HIS [facility] INTERNAL MED Umang Urrutia MD [address] [place] [phone] Cervical disc displacmnt (Primary Dx); Encounter for long-term (current) use of other medications Social History Tobacco Use Types Packs/Day Years Used Date Smoking Tobacco: Never Assessed Comments Unknown Sex and Gender Information Value Date Recorded Sex Assigned at Not on file 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
--- OUTSIDE RECORDS SUMMARY | 2025-03-25 13:42 | XMS_ITS | Encounter Summary ---
Author Organization [facility] Address [address] Segaln: [place] [address] Care Team Providers Care Guitar Technician Name Role Phone Adrienne March DO Primary Care Provider +1- [phone] Encounter Details Date Type Department Care Team (Late st Contact Info) Description 02/18/2001 Outpatient Historical Umang Urrutia MD [address] [place] [address] Social History Tobacco Use Types Packs/Day Years Used Date Smoking Tobacco: Never Assessed Comments Unknown Sex and Gender Information Value Date Recorded Sex Assigned at Not on file Legal Sex Female 3:34 AM MIS SPECIALIST Gender Identity Not on file Sexual Orientation Not on file documented as of this encounter Plan of Treatment Not on file documented as of this encounter Visit Diagnoses Not on filedocumented in this encounter Care Teams Guitar Technician Relationship Specialty Start Date End Date Adrienne March DO [address] [place] [address] PCP - General Family Practice 06/30/10 documented as of this encounter
--- OUTSIDE RECORDS SUMMARY | 2025-03-25 13:42 | XMS_ITS | Encounter Summary ---
Author Organization [facility] Address [address] [place] [address] Care Team Providers Care Cd Reactor Operator Name Role Phone Adrienne March DO Primary Care Provider Encounter Details Date Type Department Care Team (Late st Contact Info) Description 01/29/1999 Outpatient Historical HIS [facility] INTERNAL MED Umang Urrutia MD [address] [place] [address] Adhesive capsulit shlder (Primary Dx); Cervical spinal stenosis; Encounter for long-term (current) use of other medications Social History Tobacco Use Types Packs/Day Years Used Date Smoking Tobacco: Never Assessed Comments Unknown Sex and Gender Information Value Date Recorded Sex Assigned at Not on file Legal Sex Female 3:34 AM BRAND AMBASSADOR PROMOTIONAL MODEL Gender Identity Not on file Sexual Orientation Not on file documented as of this encounter Plan of Treatment Not on file documented as of this encounter Visit Diagnoses Diagnosis Adhesive capsulit shlder- Primary Adhesive capsulitis of shoulder Cervical spinal stenosis Spinal stenosis in cervical region Encounter for long-term (current) use of other medications documented in this encounter Care Teams Cd Reactor Operator Relationship Specialty Start Date End Date Adrienne March DO [address] [place] [address] PCP - General Family Practice 06/30/10 documented as of this encounter
--- OUTSIDE RECORDS SUMMARY | 2025-03-25 13:42 | XMS_ITS | Encounter Summary ---
Author Organization [facility] Address [address] Segaln: [place] [address] Care Team Providers Care Siding Mechanic Name Role Phone Adrienne March DO Primary Care Provider +1- [phone] Encounter Details Date Type Department Care Team (Late st Contact Info) Description 12/31/1999 Outpatient Historical Umang Urrutia MD [address] [place] [phone] Social History Tobacco Use Types Packs/Day Years Used Date Smoking Tobacco: Never Assessed Comments Unknown Sex and Gender Information Value Date Recorded Sex Assigned at Not on file Legal Sex Female 3:34 AM INCLUSION SPECIAL EDUCATION TEACHER Gender Identity Not on file Sexual Orientation Not on file documented as of this encounter Plan of Treatment Not on file documented as of this encounter Visit Diagnoses Not on filedocumented in this encounter Care Teams Siding Mechanic Relationship Specialty Start Date End Date Adrienne March DO [address] [place] [address] PCP - General Family Practice 06/30/10 documented as of this encounter
--- OUTSIDE RECORDS SUMMARY | 2025-03-25 13:42 | XMS_ITS | Encounter Summary ---
Author Organization [facility] Address [address] Segaln: [place] [address] Care Team Providers Care Chemical Process Analyst Name Role Phone Adrienne March DO Primary Care Provider +1- [phone] Encounter Details Date Type Department Care Team (Late st Contact Info) Description 08/31/2000 Outpatient Historical Umang Urrutia MD [address] [place] [address] Social History Tobacco Use Types Packs/Day Years Used Date Smoking Tobacco: Never Assessed Comments Unknown Sex and Gender Information Value Date Recorded Sex Assigned at Not on file Legal Sex Female 3:34 AM NETWORK INTELLIGENCE ANALYST Gender Identity Not on file Sexual Orientation Not on file documented as of this encounter Plan of Treatment Not on file documented as of this encounter Visit Diagnoses Not on filedocumented in this encounter Care Teams Chemical Process Analyst Relationship Specialty Start Date End Date Adrienne March DO [address] [place] [address] PCP - General Family Practice 06/30/10 documented as of this encounter
--- OUTSIDE RECORDS SUMMARY | 2025-03-25 13:42 | XMS_ITS | Encounter Summary ---
Author Organization [facility] Address [address] [place] [address] Care Team Providers Care Etcher Enameling Name Role Phone Adrienne March DO Primary Care Provider Encounter Details Date Type Department Care Team (Latest Contact Info) Description 12/31/1999 Outpatient Historical HIS [facility] INTERNAL MED Umang Urrutia MD [address] [place] [address] Hypopotassemia (Primary Dx); Unspecified essential hypertension; Hyperosmolality; Encounter for long-term (current) use of other medications Social History Tobacco Use Types Packs/Day Years Used Date Smoking Tobacco: Never Assessed Comments Unknown Sex and Gender Information Value Date Recorded Sex Assigned at Not on file Legal Sex Female 3:34 AM HYPERION ESSBASE DEVELOPER Gender Identity Not on file Sexual Orientation Not on file documented as of this encounter Plan of Treatment Not on file documented as of this encounter Visit Diagnoses Diagnosis Hypopotassemia- Primary Unspecified essential hypertension Hyperosmolality Hyperosmolality and/or hypernatremia Encounter for long-term (current) use of other medications documented in this encounter Care Teams Etcher Enameling Relationship Specialty Start Date End Date Adrienne March DO [address] [place] [phone] PCP - General Family Practice 06/30/10 documented as of this encounter
--- OUTSIDE RECORDS SUMMARY | 2025-03-25 13:42 | XMS_ITS | Encounter Summary ---
Author Organization [facility] Address [address] [place] [address] Care Team Providers Care Sales And Management Trainee Name Role Phone Adrienne March DO Primary Care Provider +1- [phone] Encounter Details Date Type Department Care Team (Latest Contact Info) Description 12/04/1998 Outpatient Historical HIS [facility] INTERNAL MED Umang Urrutia MD [address] [place] [phone] Cervical spinal stenosis (Primary Dx); Issue of medical certificates Social History Tobacco Use Types Packs/Day Years Used Date Smoking Tobacco: Never Assessed Comments Unknown Sex and Gender Information Value Date Recorded Sex Assigned at Not on file Legal Sex Female 3:34 AM SECURITY MONITOR Gender Identity Not on file Sexual Orientation Not on file documented as of this encounter Plan of Treatment Not on file documented as of this encounter Visit Diagnoses Diagnosis Cervical spinal stenosis- Primary Spinal stenosis in cervical region Issue of medical certificates documented in this encounter Care Teams Sales And Management Trainee Relationship Specialty Start Date End Date Adrienne March DO [address] [place] [address] PCP - General Family Practice 06/30/10 documented as of this encounter
--- OUTSIDE RECORDS SUMMARY | 2025-03-25 13:42 | XMS_ITS | Encounter Summary ---
Author Organization [facility] Address [address] 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
--- OUTSIDE RECORDS SUMMARY | 2025-03-25 13:42 | XMS_ITS | Encounter Summary ---
Author Organization [facility] Address [address] [place] [address] Care Team Providers Care General Office Worker Name Role Phone Adrienne March DO Primary Care Provider Encounter Details Date Type Department Care Team (Latest Contact Info) Description 09/21/2000 Outpatient Historical [facility] Internal Medicine- [address] [place] [phone] Umang Urrutia MD [address] [place] [address] Type II or unspecified type diabetes mellitus without mention of complication, not stated as uncontrolled (Primary Dx); Carpal tunnel syndrome; Pain in limb Social History Tobacco Use Types Packs/Day Years Used Date Smoking Tobacco: Never Assessed Comments Unknown Sex and Gender Information Value Date Recorded Sex Assigned at Not on file Legal Sex Female 3:34 AM DRY CLEANING MANAGER Gender Identity Not on file Sexual [...] limb documented in this encounter Care Teams General Office Worker Relationship Specialty Start Date End Date Adrienne March DO [address] [place] [address] PCP - General Family Practice 06/30/10 documented as of this encounter
--- OUTSIDE RECORDS SUMMARY | 2025-03-25 13:42 | XMS_ITS | Encounter Summary ---
Author Organization [facility] Address [address] [place] [address] Care Team Providers Care Phone Operator Name Role Phone Adrienne March DO Primary Care Provider Encounter Details Date Type Department Care Team (Late st Contact Info) Description 05/12/1999 Outpatient Historical [facility] [address], [address] [place] [phone] Lukas Vang MD [address] [place] [id number] Pain in limb (Primary Dx) Social History Tobacco Use Types Packs/Day Years Used Date Smoking Tobacco: Never Assessed Comments Unknown Sex and Gender Information Value Date Recorded Sex Assigned at Not on file Legal Sex Female 3:34 AM CLIENT CONSULTANT Gender Identity Not on file Sexual Orientation Not on file documented as of this encounter Plan of Treatment Not on file documented as of this encounter Visit Diagnoses Diagnosis Pain in limb- Primary Pain in soft tissues of limb documented in this encounter Care Teams Phone Operator Relationship Specialty Start Date End Date Adrienne March DO [address] [place] [address] PCP - General Family Practice 06/30/10 documented as of this encounter
--- OUTSIDE RECORDS SUMMARY | 2025-03-25 13:42 | XMS_ITS | Encounter Summary ---
Author Organization [facility] Address [address] [place] [address] Care Team Providers Care Enroute Controller Name Role Phone Adrienne March DO Primary Care Provider [phone]- [phone] Encounter Details Date Type Department Care Team (Latest Contact Info) Description 03/28/1999 Outpatient Historical [facility] INTERNAL MED Umang Urrutia MD [address] [place] [address] Cervical disc displacmnt (Primary Dx); Other and unspecified accidental fall; Paroxysmal supraventricular tachycardia; Hematuria; Encounter for long-term (current) use of other medications; Other and unspecified hyperlipidemia Social History Tobacco Use Types Packs/Day Years Used Date Smoking Tobacco: Never Assessed Comments Unknown Sex and Gender Information Value Date Recorded Sex Assigned at Not on file Legal Sex Female 3:34 AM WOOD HEEL FLAP 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
--- OUTSIDE RECORDS SUMMARY | 2025-03-25 13:42 | XMS_ITS | Encounter Summary ---
Author Organization [facility] Address [address] [place] [address] Care Team Providers Care Fitting Room Attendant Name Role Phone Adrienne March DO Primary Care Provider Encounter Details Date Type Department Care Team (Late st Contact Info) Description 12/20/2000 Outpatient Historical [facility] Internal Medicine- [address] [place] [phone] Umang Urrutia MD [address] [place] [address] Calcaneal spur (Primary Dx) Social History Tobacco Use Types Packs/Day Years Used Date Smoking Tobacco: Never Assessed Comments Unknown Sex and Gender Information Value Date Recorded Sex Assigned at Not on file Legal Sex Female 3:34 AM FOOD SERVICE COUNTER CLERK Gender Identity Not on file Sexual Orientation Not on file documented as of this encounter Plan of Treatment Not on file documented as of this encounter Visit Diagnoses Diagnosis Calcaneal spur- Primary documented in this encounter Care Teams Fitting Room Attendant Relationship Specialty Start Date End Date Adrienne March DO [address] [place] [address] PCP - General Family Practice 06/30/10 documented as of this encounter
--- OUTSIDE RECORDS SUMMARY | 2025-03-25 13:42 | XMS_ITS | Encounter Summary ---
Author Organization [facility] Address [address] [place] [address] Care Team Providers Care Clinic Licensed Practical Nurse Name Role Phone Adrienne March DO Primary Care Provider Encounter Details Date Type Department Care Team (Latest Contact Info) Description 09/26/1999 Outpatient Historical [facility] INTERNAL MED Umang Urrutia MD [address] [place] [address] Hypopotassemia (Primary Dx); Encounter for long-term (current) use of other medications; Pain in joint, multiple sites; Other and unspecified hyperlipidemia; Other abnormal blood chemistry Social History Tobacco Use Types Packs/Day Years Used Date Smoking Tobacco: Never Assessed Comments Unknown Sex and Gender Information Value Date Recorded Sex Assigned at Not on file Legal Sex Female 3:34 AM FOUNTAIN HELPER Gender Identity Not on file Sexual Orientation Not on file documented as of this encounter Plan of Treatment Not on file documented as of this encounter Visit Diagnoses Diagnosis Hypopotassemia- Primary Encounter for long-term (current) use of other medications Pain in joint, multiple sites Other and unspecified hyperlipidemia Other abnormal blood chemistry documented in this encounter Care Teams Clinic Licensed Practical Nurse Relationship Specialty Start Date End Date Adrienne March DO [address] [place] [phone] PCP - General Family Practice 06/30/10 documented as of this encounter
--- OUTSIDE RECORDS SUMMARY | 2025-03-25 13:42 | XMS_ITS | Encounter Summary ---
Author Organization [facility] Address [address] [place]: [place] [address] Care Team Providers Care Office Administration Instructor Name Role Phone Adrienne March DO Primary Care Provider [phone]- [phone] Encounter Details Date Type Department Care Team (Late st Contact Info) Description 02/21/2001 Outpatient Historical Abel Hurtado, DPM NO ADDRESS ON FILE Social History Tobacco Use Types Packs/Day Years Used Date Smoking Tobacco: Never Assessed Comments Unknown Sex and Gender Information Value Date Recorded Sex Assigned at Not on file Legal Sex Female 3:34 AM AUTO SERVICE DISPATCHER Gender Identity Not on file Sexual Orientation Not on file documented as of this encounter Plan of Treatment Not on file documented as of this encounter Visit Diagnoses Not on filedocumented in this encounter Care Teams Office Administration Instructor Relationship Specialty Start Date End Date Adrienne March DO [address] [place] [facility] [place] [address] PCP - General Family Practice 06/30/10 documented as of this encounter
--- OUTSIDE RECORDS SUMMARY | 2025-03-25 13:42 | XMS_ITS | Encounter Summary ---
Author Organization [facility] Address [address] [place] [address] Care Team Providers Care Talent Director Name Role Phone Adrienne March DO Primary Care Provider Encounter Details Date Type Department Care Team (Late st Contact Info) Description 02/05/1999 Outpatient Historical [facility] INTERNAL MED Umang Urrutia MD [address] [place] [phone] Rotator cuff rupture (Primary Dx); Adhesive capsulit shlder; Other chest pain; Unspecified adjustment reaction Social History Tobacco Use Types Packs/Day Years Used Date Smoking Tobacco: Never Assessed Comments Unknown Sex and Gender Information Value Date Recorded Sex Assigned at Not on file Legal Sex Female 3:34 AM ARTIFICIAL TEETH INSPECTOR Gender Identity Not on file Sexual Orientation Not on file documented as of this encounter Plan of Treatment Not on file documented as of this encounter Visit Diagnoses Diagnosis Rotator cuff rupture- Primary Rotator cuff (capsule) sprain Adhesive capsulit shlder Adhesive capsulitis of shoulder Other chest pain Unspecified adjustment reaction documented in this encounter Care Teams Talent Director Relationship Specialty Start Date End Date Adrienne March DO [address] [place] [address] PCP - General Family Practice 06/30/10 documented as of this encounter
--- NOTE | 2025-03-25 13:44 | ECG_ITS ---
[facility] Test Date: 2025-03-25 Pat Name: Tiffany Gaffney Department: Room: Gender: Female Penetration Tester: : [id number] Requested By: Sofía Ferreira Order Number: [id number] Cristy MD: Tariq Cannon M.D. Measurements Intervals Maurice Rate: 69 P: 0 MO: 0 QRS: -90 QRSD: 145 T: -42 QT: 432 QTc: 464 Interpretive Statements ATRIAL FIBRILLATION LEFT AXIS DEVIATION [QRS AXIS < -30] RIGHT BUNDLE BRANCH BLOCK [120+ ms QRS DURATION, UPRIGHT V1, 40+ ms S IN I/aVL/V4/V5/V6] ANTEROSEPTAL MYOCARDIAL INFARCTION , OF INDETERMINATE AGE [40+ ms Q WAVE IN V1-V4] MODERATE T-WAVE ABNORMALITY, CONSIDER LATERAL ISCHEMIA [-0.1+ mV T-WAVE IN I/aVL/V5/V6] Compared to ECG 03/21/2025 13:43:17 T-wave abnormality still present Possible ischemia still present Electronically Signed On 03-27-2025 08:23:50 CDT by Tariq Cannon M.D. [id number]
--- NOTE | 2025-03-25 13:45 | W.ED.SOB ---
HPI - SOB/Dyspnea General: Chief Complaint: Shortness of Breath/Dyspnea Stated Complaint: sob Time Seen by Provider: 03/25/25 13:40 Source: patient and EMS Mode of arrival: EMS Limitations: no limitations History of Present Illness: HPI Narrative: 79-year-old female has a history of COPD along with CHF states she had been having shortness of breath this morning. States she feels improved currently she denies any cough denies any fever. She does wear 2 L of oxygen at home 95% here on the 2 L denies any chest pain. Associated symptoms: Deny abdominal pain, chest pain, fever(s), nausea or vomiting Related Data Home Medications ?Medication ?Instructions ?Recorded ?Confirmed cetirizine 10 mg tablet (Zyrtec) 10 mg PO DAILY PRN Allergy Symptoms 11/13/19 12/12/24 desvenlafaxine succinate 50 mg 50 mg PO DAILY 11/13/19 12/12/24 tablet,extended release 24 hr (Pristiq) esomeprazole magnesium 20 mg 20 mg PO DAILY 11/13/19 12/12/24 capsule,delayed release (Nexium) fluticasone propionate 50 1 spray intranasal DAILY PRN 11/13/19 12/12/24 mcg/actuation nasal allergies spray,suspension gabapentin 300 mg capsule 300 mg PO TID 11/13/19 12/12/24 oxycodone-acetaminophen 10 mg-325 1 tab PO Q4H PRN Pain 11/13/19 12/12/24 mg tablet (Percocet) phenytoin sodium extended 100 mg 300 mg PO BID 11/13/19 12/12/24 capsule (Dilantin Extended) ergocalciferol (vitamin D2) 1,250 1,250 mcg PO Q7D 09/14/21 12/12/24 mcg (50,000 unit) capsule (Vitamin D2) potassium chloride 20 mEq 20 meq PO DAILY 09/14/21 12/12/24 tablet,extended release apixaban 5 mg tablet (Eliquis) 5 mg PO BID 08/08/24 12/12/24 dulaglutide 1.5 mg/0.5 mL 0.5 mg SUBCUT Q7D 08/08/24 12/12/24 subcutaneous pen injector ([facility]) levothyroxine 125 mcg tablet 125 mcg PO DAILY 08/08/24 12/12/24 metformin 500 mg tablet 500 mg PO BID 08/08/24 12/12/24 azelastine 137 mcg (0.1 %) nasal 2 spray intranasal BID 08/21/24 12/12/24 spray furosemide 40 mg tablet 40 mg PO DAILY 08/21/24 12/12/24 metoprolol succinate 25 mg 25 mg PO DAILY 08/21/24 12/12/24 tablet,extended release 24 hr aspirin 81 mg tablet,delayed 81 mg PO DAILY 12/12/24 12/12/24 release Previous Rx's ?Medication ?Instructions ?Recorded atorvastatin 40 mg tablet 40 mg PO DAILY #30 tabs 08/07/24 Allergies Allergy/AdvReac Type Severity Reaction Status Date / Time adhesive tape Allergy Unknown Verified 10/03/24 11:15 silver sulfadiazine (From Allergy ALGY-Rash Verified 10/03/24 11:15 Silvadene) Review of Systems Const: Denies: fever(s), chills, body aches or change in appetite ENMT: Denies: throat pain or dental pain Card: Denies: chest pain Resp: Reports: dyspnea GI: Denies: abdominal pain, nausea, vomiting or diarrhea Musc: Denies: neck pain or back pain Skin/Breast: Denies: rash Neuro: Denies: headache(s) PFSH ED PFSH: Medical History Chronic anticoagulation Diabetes Hypoxia Diastolic heart failure Exertional dyspnea COPD (chronic obstructive pulmonary disease) Seizure disorder Mild aortic stenosis Obesity Diabetes 1.5, managed as type 2 Hyperlipidemia HTN (hypertension) Hypothyroidism CVA (cerebral vascular accident) Surgical History Previous back surgery S/P hysterectomy Family History Father Stroke Hypertension Mother Hypertension CAD (coronary artery disease) Myocardial infarction Sister Hypertension CAD (coronary artery disease) Myocardial infarction Brother CAD (coronary artery disease) Myocardial infarction Denies family history of Colon cancer Pancreatic cancer Ovarian cancer Thyroid cancer Diabetes Breast cancer Cancer Uterine cancer Social History Smoking and tobacco/nicotine status: never used tobacco/nicotine Household members: spouse Marital status: Physical Exam Const: COMMON NORMALS: no acute distress, patient oriented x3 and healthy appearing HENMT: COMMON NORMALS: normocephalic and atraumatic HEAD & SCALP: normocephalic and atraumatic Eye: COMMON NORMALS: Equal, round and reactive pupils present and EOMs intact bilaterally PUPIL: Yes Equal, round and reactive pupils present Neck/C-Spine: COMMON NORMALS: full ROM and supple Chest: COMMONS NORMALS: normal inspection of the chest and normal palpation of entire chest wall Resp: COMMON NORMALS: normal respiratory effort, No retractions, No use of accessory muscles and clear to auscultation bilaterally AUSCULTATION: clear to auscultation bilaterally Cardio: COMMON NORMALS: regular rate, regular rhythm and No murmurs present (Cardio) RATE: regular rate RHYTHM: regular rhythm GI: COMMON NORMALS: Normal to inspection, nondistended, normoactive bowel sounds present, Soft to palpation, non-tender and no masses PALPATION: Yes Soft to palpation Extremity: COMMON NORMALS: normal to inspection and full ROM Neuro: COMMON NORMALS: patient oriented x3, moves all extremities and no focal motor deficits Psych: COMMON NORMALS: mental status grossly normal, Normal thought process present and cooperative THOUGHT PROCESS: Normal thought process present Skin: COMMON NORMALS: no rashes or lesions noted and no wounds GENERAL SKIN EXAM: no rashes or lesions noted Course Vital Signs: Vital signs: Vital Signs Temperature 97.5 F L 03/25/25 13:37 Pulse Rate 73 03/25/25 15:12 Respiratory Rate 16 03/25/25 15:12 Blood Pressure 143/70 03/25/25 15:12 Pulse Oximetry 96 03/25/25 15:12 Oxygen Delivery Me thod Nasal Cannula 03/25/25 15:12 Oxygen Flow Rate 2 03/25/25 14:26 MDM - SOB/Dyspnea Medical Decision Making Patient presents here with shortness of breath likely from her CHF she is well-appearing here she is in no distress not requiring any extra oxygen states she feels much improved she stable for discharge no signs of pneumonia no signs of pulmonary embolism she is follow-up with PCP and return if worsening Medical Records I reviewed the patient's medical records. Lab Data I reviewed the patient's lab results. 03/25/25 13:48 03/25/25 13:48 Labs/Radiology: Radiology Impressions Chest X-Ray 03/25/25 13:40 IMPRESSION: No acute findings. Unchanged exam. Laboratory Results WBC 10.88 10^3/uL (3.29-11.43) 03/25/25 13:48 RBC 3.79 10^6/uL (3.85-5.65) L 03/25/25 13:48 Hgb 11.00 g/dL (11.27-16.99) L 03/25/25 13:48 Hct 36.0 % (36-47) 03/25/25 13:48 MCV 95.0 fl (85-98) 03/25/25 13:48 MCH 29.0 pg (27-33) 03/25/25 13:48 MCHC 30.6 g/dL (30-55) 03/25/25 13:48 RDW 12.8 % (12.1-15.1) 03/25/25 13:48 Plt Count 264 10^3/cmm (157-399) 03/25/25 13:48 MPV 8.4 fL (7.4-10.4) 03/25/25 13:48 Neut % (Auto) 70.2 % 03/25/25 13:48 Lymph % (Auto) 16.6 % 03/25/25 13:48 Moca % (Auto) 9.4 % 03/25/25 13:48 Eos % (Auto) 2.8 % 03/25/25 13:48 Baso % (Auto) 0.5 % 03/25/25 13:48 Neut # (Auto) 7.64 10^3/uL (1.8-7.7) 03/25/25 13:48 Lymph # (Auto) 1.8 10^3/uL (0.8-4.8) 03/25/25 13:48 Moca # (Auto) 1.0 10^3/uL (0.2-0.9) H 03/25/25 13:48 Eos # (Auto) 0.3 10^3/uL (0.0-0.8) 03/25/25 13:48 Baso # (Auto) 0.1 10^3/uL (0.0-0.1) 03/25/25 13:48 Nucleated RBC % (auto) 0 % 03/25/25 13:48 Nucleated RBCs # 0.0 /100WBC 03/25/25 13:48 Specimen Type Arterial 03/25/25 14:16 Sample Site Radial, right 03/25/25 14:16 ABG pH 7.44 (7.35-7.45) 03/25/25 14:16 ABG pCO2 51.6 mmHg (35-45) H 03/25/25 14:16 ABG pO2 67.5 mmHg (80.0-100.0) L 03/25/25 14:16 ABG PO2/FiO2 Ratio 241 03/25/25 14:16 ABG HCO3 35.0 mmol/L (22-26) H 03/25/25 14:16 ABG O2 Saturation 95.2 03/25/25 14:16 ABG Base Excess 9.3 mmol/L (-2.0-2.0) H 03/25/25 14:16 Eliazar Test Pos 03/25/25 14:16 A-a O2 Gradient 8.9 mmHg (5-10) 03/25/25 14:16 Hematocrit 35.1 % (37-47) L 03/25/25 14:16 Hgb O2 Saturation 93.8 % (95-100) L 03/25/25 14:16 Carboxyhemoglobin 1.2 %THgb (0.4-20.1) 03/25/25 14:16 Methemoglobin 0.2 % (0.4-1.5) L 03/25/25 14:16 Total Hemoglobin 11.4 g/dL (12-16) L 03/25/25 14:16 Sodium 142.0 mmol/L (131-143) 03/25/25 14:16 Potassium 4.7 mmol/L (3.5-5.0) 03/25/25 14:16 Glucose 130.0 mg/dL (70-115) H 03/25/25 14:16 Ionized Calcium 1.1 mmol/L (1.1-1.4) 03/25/25 14:16 O2 Delivery Device Nc 03/25/25 14:16 O2 Liters/Min 2.0 % 03/25/25 14:16 FiO2 28.0 % 03/25/25 14:16 Automatic Toe Laster ID glc 03/25/25 14:16 Sodium 139 mmol/L (136-145) 03/25/25 13:48 Potassium 4.7 mmol/L (3.5-5.1) 03/25/25 13:48 Chloride 96 mmol/L (98-107) L 03/25/25 13:48 Carbon Dioxide 34 mmol/L (22-29) H 03/25/25 13:48 Anion Gap 13.7 (5-19) 03/25/25 13:48 BUN 30 mg/dL (8-23) H 03/25/25 13:48 Creatinine 1.5 mg/dL (0.5-0.9) H 03/25/25 13:48 GFR Calculation Not Reportable 03/25/25 13:48 Glucose 124 mg/dL (65-115) H 03/25/25 13:48 Calculated Osmolality 296 mOsm/kg (285-295) H 03/25/25 13:48 Calcium 7.8 mg/dL (8.5-10.5) L 03/25/25 13:48 Total Bilirubin 0.2 mg/dL (0.15-1.2) 03/25/25 13:48 AST 12 U/L (0-32) 03/25/25 13:48 ALT 10 U/L (0-33) 03/25/25 13:48 Alkaline Phosphatase 127 U/L (35-105) H 03/25/25 13:48 NT-Pro-B Natriuret Pep 3813 pg/mL (0-450) H 03/25/25 13:48 Total Protein 7.2 g/dL (6.6-8.7) 03/25/25 13:48 Albumin 3.2 g/dL (3.5-5.2) L 03/25/25 13:48 Globulin 4.0 g/dL (1.3-4.6) 03/25/25 13:48 All radiology interpretation(s) finalized by discharge Discharge Plan Discharge Patient Disposition: Home Clinical Impression: Congestive heart failure, Shortness of breath Condition: Stable Prescriptions: No Action phenytoin sodium extended [Dilantin Extended] 100 mg capsule 300 mg PO BID fluticasone propionate 50 mcg/actuation spray,suspension 1 spray INTRANASAL DAILY PRN (Reason: allergies) gabapentin 300 mg capsule 300 mg PO TID esomeprazole magnesium [Nexium] 20 mg capsule,delayed release(DR/EC) 20 mg PO DAILY oxycodone-acetaminophen [Percocet] 10-325 mg tablet 1 tab PO Q4H PRN (Reason: Pain) desvenlafaxine succinate [Pristiq] 50 mg tablet extended release 24 hr 50 mg PO DAILY cetirizine [Zyrtec] 10 mg tablet 10 mg PO DAILY PRN (Reason: Allergy Symptoms) ergocalciferol (vitamin D2) [Vitamin D2] 1,250 mcg (50,000 unit) Capsule 1,250 mcg PO Q7D Rx Instructions: ON WEDNESDAYS potassium chloride 20 mEq Tablet Extended Release 20 meq PO DAILY metformin 500 mg tablet 500 mg PO BID Eliquis 5 mg tablet 5 mg PO BID levothyroxine 125 mcg tablet 125 mcg PO DAILY Trulicity 1.5 mg/0.5 mL pen injector 0.5 mg SUBCUT Q7D aspirin 81 mg Tablet,Delayed Release (Dr/Ec) 81 mg PO DAILY atorvastatin 40 mg tablet 40 mg PO DAILY Qty: 30 0RF furosemide 40 mg tablet 40 mg PO DAILY metoprolol succinate 25 mg tablet extended release 24 hr 25 mg PO DAILY azelastine 137 mcg (0.1 %) spray,non-aerosol 2 spray INTRANASAL BID Discharge Orders: Discharge ED (Routine); Ordered 03/25/25 Ordered By: Sofía Ferreira Referrals: Adrienne March DO [Primary Care Provider, Family Practice] - 4-7 days Discharge Diet: Advance as tolerated Discharge Activity: Resume usual activity Patient Instructions: Shortness of Breath (ED) Print Language: Sao Tomean Coding Level of Care Code ED [place] for Valentin Mace
[2025-03-25 13:54] LABS: Hematocrit 36.0 % (36-47); Hemoglobin 11.00 g/dL (11.27-16.99); Mean Corpuscular HGB Conc 30.6 g/dL (30-55); Mean Corpuscular Hemoglobin 29.0 pg (27-33); Mean Corpuscular Volume 95.0 fl (85-98); Nucleated Red Blood Cells % 0 %; Platelet Count 264 10^3/cmm (157-399); Red Blood Count 3.79 10^6/uL (3.85-5.65); White Blood Count 10.88 10^3/uL (3.29-11.43)
[2025-03-25 14:12] VITALS: PULSE 62; RESP 18; O2SAT 94
[2025-03-25 14:22] LABS: Alanine Aminotransferase 10 U/L (0-33); Albumin Level 3.2 g/dL (3.5-5.2); Alkaline Phosphatase 127 U/L (35-105); Anion Gap 13.7 (5-19); Aspartate Amino Transferase 12 U/L (0-32); Blood Urea Nitrogen 30 mg/dL (8-23); Calcium 7.8 mg/dL (8.5-10.5); Carbon Dioxide 34 mmol/L (22-29); Chloride 96 mmol/L (98-107); Creatinine Clr Calc Pharmacy 36.9455; Globulin 4.0 g/dL (1.3-4.6); Glucose 124 mg/dL (65-115); NT Pro B Type Natriuretic Pept 3813 pg/mL (0-450); Osmolality Calculated 296 mOsm/kg (285-295); Potassium 4.7 mmol/L (3.5-5.1); Sodium 139 mmol/L (136-145); Total Protein 7.2 g/dL (6.6-8.7)
[2025-03-25 14:26] VITALS: BP 108/51; PULSE 67; RESP 23; O2SAT 95
[2025-03-25 14:27] LABS: ABG PCO2 51.6 mmHg (35-45); ABG PH Result 7.44 (7.35-7.45); Alveolar-Arterial Oxygen Gradi 8.9 mmHg (5-10); Arterial Blood Gas Hematocrit 35.1 % (37-47); Blood Gas Allen Test Pos; Blood Gas LPM 2.0 %; Blood Gas Operator Identificat glc; Blood Gas Sample Site Radial, right; Blood Gas Sample Type Arterial; Carboxyhemoglobin 1.2 %THgb (0.4-20.1); Glucose Level-ABG 130.0 mg/dL (70-115); HCO3 ABG 35.0 mmol/L (22-26); Ionized Calcium Level - ABG 1.1 mmol/L (1.1-1.4); Methemoglobin 0.2 % (0.4-1.5); Oxygen Saturation ABG 95.2; PO2 ABG 67.5 mmHg (80.0-100.0); PO2 FiO2 Ratio Arterial Blood 241; Potassium Level - ABG 4.7 mmol/L (3.5-5.0); Sodium Level - ABG 142.0 mmol/L (131-143)
[2025-03-25 15:12] VITALS: BP 143/70; PULSE 73; RESP 16; O2SAT 96
[2025-03-25 15:49] VITALS: BP 117/78; PULSE 75; O2SAT 96
== END 2025-03-25 15:50 | disposition home or self-care (01) ==
PROVIDERS: Emergency Provider Emergency Medicine; PCP Family Medicine
DX: R06.02 Shortness of breath (principal); Z79.84 Long term (current) use of oral hypoglycemic drugs; Z79.01 Long term (current) use of anticoagulants; Z79.82 Long term (current) use of aspirin; J44.9 Chronic obstructive pulmonary disease, unspecified; Z86.73 Personal history of transient ischemic attack (TIA), and cerebral infarction without residual deficits; E11.9 Type 2 diabetes mellitus without complications; I11.0 Hypertensive heart disease with heart failure; I50.30 Unspecified diastolic (congestive) heart failure
CPT/HCPCS: 36415; 36600; 71045; 80051; 80053; 82330; 82805; 83880; 85025; 93005; 94640; 96374; 99285; J1100; J9999

== ENCOUNTER 2025-06-20 15:15 | Emergency (ER) | payer MEDICARE, SELFPAY ==
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
[2025-06-20 15:17] VITALS: BP 148/60; PULSE 75; RESP 18; TEMP 36.7; O2SAT 94
--- NOTE | 2025-06-20 15:20 | ECG_ITS ---
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 Measurements Intervals Stacy Rate: 69 P: -67 ME: 114 QRS: 251 QRSD: 142 T: -50 QT: 430 QTc: 463 Interpretive Statements ECTOPIC ATRIAL RHYTHM RIGHT BUNDLE BRANCH BLOCK [120+ ms QRS DURATION, UPRIGHT V1, 40+ ms S IN I/aVL/V4/V5/V6] INFERIOR MYOCARDIAL INFARCTION , OF INDETERMINATE AGE [40+ ms Q WAVE AND/OR ST/T ABNORMALITY IN II/aVF] ANTEROSEPTAL MYOCARDIAL INFARCTION , OF INDETERMINATE AGE [40+ ms Q WAVE IN V1-V4] Compared to ECG 03/25/2025 13:44:14 Right-axis deviation now present T-wave abnormality still present Possible ischemia still present Electronically Signed On 06-21-2025 08:55:47 CDT by Tariq Cannon M.D. [email or web address]
--- NOTE | 2025-06-20 15:20 | USR_ITS ---
PROCEDURE INFORMATION: Exam: US Duplex Left Upper Extremity Arteries Exam date and time: 06/20/2025 4:25 PM Age: 79 years old Clinical indication: Pain; Arm, upper; Left; Additional info: Atraumatic left arm pain TECHNIQUE: Imaging protocol: Left Real-time ultrasound scan of the arteries of the left upper extremity with 2-D calderon scale, color Doppler flow and spectral waveform analysis. COMPARISON: [place] [id number] 06/20/2025 4:12 PM FINDINGS: Limitations: Patient had an IV in the left antecubital fossa which limited evaluation of the this region. Left subclavian artery: No occlusion or significant stenosis. Normal waveform. Left axillary artery: No occlusion or significant stenosis. Normal waveform. Left brachial artery: No occlusion or significant stenosis. Normal waveform. Left radial artery: No occlusion or significant stenosis. Normal waveform. Left ulnar artery: No occlusion or significant stenosis. Normal waveform. Soft tissues: Unremarkable. US/[place] [id number] IMPRESSION: No acute findings.
--- NOTE | 2025-06-20 15:20 | USR_ITS ---
PROCEDURE INFORMATION: Exam: US Duplex Left Upper Extremity Veins, Limited Exam date and time: 06/20/2025 4:12 PM Age: 79 years old Clinical indication: Pain; Arm, upper; Left; Additional info: Atraumatic left arm pain TECHNIQUE: Imaging protocol: Real-time duplex ultrasound of the left extremity with 2-D calderon scale, color Doppler flow and spectral waveform analysis including responses to compression and other maneuvers (when performed) with image documentation. Limited exam focused on the left upper extremity veins. COMPARISON: CR XR shoulder LT min 2V* [id number] 06/20/2025 3:39 PM FINDINGS: Left deep veins: The left axillary and brachial veins are patent throughout without thrombus. Normal Doppler waveforms. Normal compressibility and/or augmentation response. Visualized internal jugular and subclavian veins are patent. Superficial veins: Unremarkable. Visualized cephalic and basilic veins are patent without thrombus. Soft tissues: Unremarkable. US/[place] [id number] IMPRESSION: No evidence of deep vein thrombosis in the left upper extremity.
--- OUTSIDE RECORDS SUMMARY | 2025-06-20 15:26 | XMS_ITS | Encounter Summary ---
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
--- OUTSIDE RECORDS SUMMARY | 2025-06-20 15:26 | XMS_ITS | Encounter Summary ---
Author Organization [facility] Address [address] 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
--- OUTSIDE RECORDS SUMMARY | 2025-06-20 15:26 | XMS_ITS | Encounter Summary ---
Author Organization [facility] Address [address] 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
--- OUTSIDE RECORDS SUMMARY | 2025-06-20 15:26 | XMS_ITS | Encounter Summary ---
Author Organization [facility] Address [address] [place] [address] Care Team Providers Care Library Page Name Role Phone Adrienne March DO Primary Care Provider Encounter Details Date Type Department Care Team (Latest Contact Info) Description 08/18/2001 Outpatient [facility] Kimberly [address] [place] [phone] Abel Hurtado, DPM NO ADDRESS ON FILE Pain in limb (Primary Dx) Social History Tobacco Use Types Packs/Day Years Used Date Smoking Tobacco: Never Assessed Comments Unknown Sex and Gender Information Value Date Recorded Sex Assigned at Not on file Legal Sex Female 3:34 AM 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
--- OUTSIDE RECORDS SUMMARY | 2025-06-20 15:26 | XMS_ITS | Encounter Summary ---
Author Organization [facility] Address [address] [place] [address] Care Team Providers Care After School Driver Name Role Phone Adrienne March DO Primary Care Provider Encounter Details Date Type Department Care Team (Latest Contact Info) Description 03/16/2003 [facility]patient [facility] [address] [place] [phone] Wilfredo Michel MD [address] [address] BRACHIAL NEURITIS NOS (Primary Dx) Social History Tobacco Use Types Packs/Day Years Used Date Smoking Tobacco: Never Assessed Comments Unknown Sex and Gender Information Value Date Recorded Sex Assigned at Not on file Legal Sex Female 3:34 AM CARDIOPULMONARY PHYSICAL THERAPIST Gender Identity Not on file Sexual Orientation Not on file documented as of this encounter Plan of Treatment Not on file documented as of this encounter Visit Diagnoses Diagnosis Brachial neuritis or radiculitis NOS- Primary Brachial neuritis or radiculitis nos documented in this encounter Care Teams After School Driver Relationship Specialty Start Date End Date Adrienne March DO [address] [place] [address] PCP - General Family Practice 06/30/10 documented as of this encounter
--- OUTSIDE RECORDS SUMMARY | 2025-06-20 15:26 | XMS_ITS | Encounter Summary ---
Author Organization [facility] Address [address] [place] [address] Care Team Providers Care Acura Sales Consultant Name Role Phone Adrienne March DO Primary Care Provider [phone]- [phone] Encounter Details Date Type Department Care Team (Late st Contact Info) Description 08/01/2001 Outpatient Historical [facility] Social History Tobacco Use Types Packs/Day Years Used Date Smoking Tobacco: Never Assessed Comments Unknown Sex and Gender Information Value Date Recorded Sex Assigned at Not on file Legal Sex Female 3:34 AM LEASING COORDINATOR Gender Identity Not on file Sexual Orientation Not on file documented as of this encounter Plan of Treatment Not on file documented as of this encounter Visit Diagnoses Not on filedocumented in this encounter Care Teams Acura Sales Consultant Relationship Specialty Start Date End Date Adrienne March DO [address] [place] [address] PCP - General Family Practice 06/30/10 documented as of this encounter
--- OUTSIDE RECORDS SUMMARY | 2025-06-20 15:26 | XMS_ITS | Encounter Summary ---
Author Organization [facility] Address [address] [place] [address] Care Team Providers Care Employment Attorney Name Role Phone Adrienne March DO Primary Care Provider [phone] Encounter Details Date Type Department Care Team (Latest Contact Info) Description 03/21/2003 Outpatient Historical [facility] Physical Therapy [address] [place] [address] [place] [phone] Wilfredo Michel MD [address] [phone] CERVICALGIA (Primary Dx) Social History Tobacco Use Types Packs/Day Years Used Date Smoking Tobacco: Never Assessed Comments Unknown Sex and Gender Information Value Date Recorded Sex Assigned at Not on file 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
--- OUTSIDE RECORDS SUMMARY | 2025-06-20 15:26 | XMS_ITS | Encounter Summary ---
Author Organization [facility] Address [address] [place] [address] Care Team Providers Care Machine Ceramic Coater Name Role Phone Adrienne March DO Primary Care Provider +1- [phone] Encounter Details Date Type Department Care Team (Late st Contact Info) Description 02/03/2003 Outpatient Historical [facility] Imaging Services [address] [place] [phone] Jose Luis Mcmillan MD [address] [place] [address] Social History Tobacco Use Types Packs/Day Years Used Date Smoking Tobacco: Never Assessed Comments Unknown Sex and Gender Information Value Date Recorded Sex Assigned at Not on file 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
--- OUTSIDE RECORDS SUMMARY | 2025-06-20 15:26 | XMS_ITS | Encounter Summary ---
Author Organization [facility] Address [address] [place] [address] Care Team Providers Care Stadium Attendant Name Role Phone Adrienne March DO Primary Care Provider Encounter Details Date Type Department Care Team (Latest Contact Info) Description 07/15/2001 Outpatient Historical [facility] [address] [phone] Lesly Jones MD NO ADDRESS ON FILE Other screening mammogram (Primary Dx) Social History Tobacco Use Types Packs/Day Years Used Date Smoking Tobacco: Never Assessed Comments Unknown Sex and Gender Information Value Date Recorded Sex Assigned at Not on file Legal Sex Female 3:34 AM MULTIFOCAL LENS INSPECTOR Gender Identity Not on file Sexual Orientation Not on file documented as of this encounter Plan of Treatment Not on file documented as of this encounter Visit Diagnoses Diagnosis Other screening mammogram- Primary documented in this encounter Care Teams Stadium Attendant Relationship Specialty Start Date End Date Adrienne March DO [address] [place] [phone] PCP - General Family Practice 06/30/10 documented as of this encounter
--- OUTSIDE RECORDS SUMMARY | 2025-06-20 15:26 | XMS_ITS | Encounter Summary ---
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
--- OUTSIDE RECORDS SUMMARY | 2025-06-20 15:26 | XMS_ITS | Encounter Summary ---
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
--- OUTSIDE RECORDS SUMMARY | 2025-06-20 15:26 | XMS_ITS | Encounter Summary ---
Author Organization [facility] Address [address] [place] [address] Care Team Providers Care Lacquer Pin Press Operator Name Role Phone Adrienne March DO Primary Care Provider +1- [phone] Encounter Details Date Type Department Care Team (Latest Contact Info) Description 10/26/2001 Outpatient [facility] [place] [address] [place] [address] Abel Hurtado, DPM NO ADDRESS ON FILE Pain in limb (Primary Dx) Social History Tobacco Use Types Packs/Day Years Used Date Smoking Tobacco: Never Assessed Comments Unknown Sex and Gender Information Value Date Recorded Sex Assigned at Not on file Legal Sex Female 3:34 AM TITLE INSPECTOR Gender Identity Not on file Sexual Orientation Not on file documented as of this encounter Plan of Treatment Not on file documented as of this encounter Visit Diagnoses Diagnosis Pain in limb- Primary Pain in soft tissues of limb documented in this encounter Care Teams Lacquer Pin Press Operator Relationship Specialty Start Date End Date Adrienne March DO [address] [place] [address] PCP - General Family Practice 06/30/10 documented as of this encounter
--- OUTSIDE RECORDS SUMMARY | 2025-06-20 15:26 | XMS_ITS | Encounter Summary ---
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
--- OUTSIDE RECORDS SUMMARY | 2025-06-20 15:26 | XMS_ITS | Encounter Summary ---
Author Organization [facility] Address [address] [place] [address] Care Team Providers Care Sharepoint Application Developer Name Role Phone Adrienne March DO Primary Care Provider Encounter Details Date Type Department Care Team (Latest Contact Info) Description 03/16/2003 Outpatient Historical [facility] Wilfredo Michel MD [address] [phone] JOINT PAIN-SHLDER (Primary Dx) Social History Tobacco Use Types Packs/Day Years Used Date Smoking Tobacco: Never Assessed Comments Unknown Sex and Gender Information Value Date Recorded Sex Assigned at Not on file Legal Sex Female 3:34 AM CARDIOTHORACIC PHYSIOTHERAPIST Gender Identity Not on file Sexual Orientation Not on file documented as of this encounter Plan of Treatment Not on file documented as of this encounter Visit Diagnoses Diagnosis Pain in joint, shoulder region- Primary documented in this encounter Care Teams Sharepoint Application Developer Relationship Specialty Start Date End Date Adrienne March DO [address] [place] [address] PCP - General Family Practice 06/30/10 documented as of this encounter
--- OUTSIDE RECORDS SUMMARY | 2025-06-20 15:26 | XMS_ITS | Encounter Summary ---
Author Organization [facility] Address [address] [place] [address] Care Team Providers Care Clinical Laboratory Technologist Name Role Phone Adrienne March DO Primary Care Provider +1- [phone] Encounter Details Date Type Department Care Team (Latest Contact Info) Description 01/31/2003 Outpatient Historical [facility] Jose Luis Mcmillan MD [address] [place] [address] BRACHIAL NEURITIS NOS (Primary Dx); CERVICALGIA; Cervical spondylosis Social History Tobacco Use Types Packs/Day Years Used Date Smoking Tobacco: Never Assessed Comments Unknown Sex and Gender Information Value Date Recorded Sex Assigned at Not on file 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 Female 3:34 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
--- OUTSIDE RECORDS SUMMARY | 2025-06-20 15:26 | XMS_ITS | Encounter Summary ---
Author Organization [facility] Address [address] [place] [address] Care Team Providers Care Batch Unloader Name Role Phone Adrienne March DO Primary Care Provider Encounter Details Date Type Department Care Team (Latest Contact Info) Description 09/27/2003 Outpatient Historical [facility] [address] [address] [place] [phone] Jose Luis Mcmillan MD [address] [place] [address] Cervical spondylosis (Primary Dx); CERVICALGIA; Cervical spinal stenosis; BRACHIAL NEURITIS NOS Social History Tobacco Use Types Packs/Day Years Used Date Smoking Tobacco: Never Assessed Comments Unknown Sex and Gender Information Value Date Recorded Sex Assigned at Not on file Legal Sex Female 3:34 AM SALES HOST Gender Identity Not on file Sexual Orientation Not on file documented as of this encounter Plan of Treatment Not on file documented as of this encounter Visit Diagnoses Diagnosis Cervical spondylosis- Primary Cervical spondylosis without myelopathy Cervicalgia Cervical spinal stenosis Spinal stenosis in cervical region Brachial neuritis or radiculitis NOS Brachial neuritis or radiculitis nos documented in this encounter Care Teams Batch Unloader Relationship Specialty Start Date End Date Adrienne March DO [address] [place] [address] PCP - General Family Practice 06/30/10 documented as of this encounter
--- OUTSIDE RECORDS SUMMARY | 2025-06-20 15:26 | XMS_ITS | Encounter Summary ---
Author Organization [facility] Address [address] [place] [address] Care Team Providers Care Automobile Or Truck Rental Dispatcher Name Role Phone Adrienne March DO Primary Care Provider +1- [phone] Encounter Details Date Type Department Care Team (Late st Contact Info) Description 04/24/2003 Outpatient Historical [facility] Social History Tobacco Use Types Packs/Day Years Used Date Smoking Tobacco: Never Assessed Comments Unknown Sex and Gender Information Value Date Recorded Sex Assigned at Not on file Legal Sex Female 3:34 AM MEDICAL INSURANCE VERIFIER Gender Identity Not on file Sexual Orientation Not on file documented as of this encounter Plan of Treatment Not on file documented as of this encounter Visit Diagnoses Not on filedocumented in this encounter Care Teams Automobile Or Truck Rental Dispatcher Relationship Specialty Start Date End Date Adrienne March DO [address] [place] [address] PCP - General Family Practice 06/30/10 documented as of this encounter
--- OUTSIDE RECORDS SUMMARY | 2025-06-20 15:26 | XMS_ITS | Encounter Summary ---
Author Organization [facility] Address [address] [place] [address] Care Team Providers Care Ancient Art Curator Name Role Phone Adrienne March DO Primary Care Provider +1- [phone] Encounter Details Date Type Department Care Team (Latest Contact Info) Description 04/30/2003 [facility]patient [facility] [address] [place] [address] Wilfredo Michel MD [address] [address] BRACHIAL NEURITIS NOS (Primary Dx); MYALGIA AND MYOSITIS NOS Social History Tobacco Use Types Packs/Day Years Used Date Smoking Tobacco: Never Assessed Comments Unknown Sex and Gender Information Value Date Recorded Sex Assigned at Not on file Legal Sex Female 3:34 AM BILLIARD TABLE ASSEMBLER Gender Identity Not on file Sexual Orientation Not on file documented as of this encounter Plan of Treatment Not on file documented as of this encounter Visit Diagnoses Diagnosis Brachial neuritis or radiculitis NOS- Primary Brachial neuritis or radiculitis nos Myalgia and myositis, unspecified Mylagia and myositis, unspecified documented in this encounter Care Teams Ancient Art Curator Relationship Specialty Start Date End Date Adrienne March DO [address] [place] [address] PCP - General Family Practice 06/30/10 documented as of this encounter
--- OUTSIDE RECORDS SUMMARY | 2025-06-20 15:26 | XMS_ITS | Encounter Summary ---
Author Organization [facility] Address [address] [place] [address] Care Team Providers Care Social Insurance Specialist Name Role Phone Adrienne March DO Primary Care Provider [phone] Reason for Visit * Reason Comments Clinical Consult Before Scheduling Encounter Details Date Type Department Care Team (Late st Contact Info) Description 06/18/2025 Nurse Triage [facility] [place] [address] [place] [address] Adrienne March DO [address] [place] [address] Social History Tobacco Use Types Packs/Day Years [...] on file Legal Sex Female 6:27 AM MANAGER COPY Gender Identity Not on file Sexual Orientation Not on file documented as of this encounter Miscellaneous Notes * Telephone Encounter - Naa Garcia LPN - 06/18/2025 10:59 AM CDT Noted. Naa Garcia LPN, 06/18/2025 10:59 AM * Telephone Encounter - Magnus Wadsworth - 06/18/2025 10:57 AM CDT Copied from [facility] #[id number]. Topic: Symptomatic Care >> Jun 18, 2025 10:55 AM Magnus Tran wrote: Has this patient seen any provider (current or former) at the requested clinic in the past? Yes, Select the appropriate age range and symptom Patient has symptoms and is seeking care. Caller Name: Tiffany Gaffney Callback Number: [phone] (home) Call Notes: Constipation since 06/12 Age Range/Symptom: Adult: 18+ & High Risk Constipation How would caller like to proceed? Schedule an appointment that is available within 24-48 hours Patient was scheduled for an appointment on 06/18. If this is not clinically appropriate, please contact patient. documented in this encounter Plan of Treatment Upcoming Encounters Date Type Department Care Team (Late st Contact Info) Description 07/25/2025 10:00 AM MANAGER COPY Office Visit [facility] [address] [facility] [place] [phone] Adrienne March, DO [address] [place] [address] 10/25/2025 1:40 PM MANAGER COPY Office Visit [facility] [address] [facility] [place] [address] Adrienne March, DO [address] [place] [facility] [address] 04/22/2026 1:20 PM CDT Office Visit [facility] [address] [facility] [address] [place] [address] Cori Ochoa, [facility] [address] [facility] [address] [place] [address] documented as of this encounter Visit Diagnoses Not on filedocumented in this encounter Care Teams Social Insurance Specialist Relationship Specialty Start Date End Date Adrienne March DO [address] [place] [phone] PCP - General Family Practice 06/30/10 documented as of this encounter
--- OUTSIDE RECORDS SUMMARY | 2025-06-20 15:26 | XMS_ITS | Encounter Summary ---
Author Organization [facility] Address [address] [place] [address] Care Team Providers Care Rn Child Name Role Phone Adrienne March DO Primary Care Provider Encounter Details Date Type Department Care Team (Latest Contact Info) Description 11/27/2003 Outpatient [facility] [address] [address] Jose Luis Mcmillan MD [address] [place] [address] CERVICAL SPONDYLOSIS (Primary Dx) Social History Tobacco Use Types Packs/Day Years Used Date Smoking Tobacco: Never Assessed Comments Unknown Sex and Gender Information Value Date Recorded Sex Assigned at Not on file Legal Sex Female 3:34 AM BAKER DOUGHNUT Gender Identity Not on file Sexual Orientation Not on file documented as of this encounter Plan of Treatment Not on file documented as of this encounter Visit Diagnoses Diagnosis Cervical spondylosis without myelopathy- Primary documented in this encounter Care Teams Rn Child Relationship Specialty Start Date End Date Adrienne March DO [address] [place] [address] PCP - General Family Practice 06/30/10 documented as of this encounter
--- OUTSIDE RECORDS SUMMARY | 2025-06-20 15:26 | XMS_ITS | Encounter Summary ---
Author Organization [facility] Address [address] [place] [address] Care Team Providers Care Artificial Snow Making Machine Operator Name Role Phone Adrienne March DO Primary Care Provider +1- [phone] Encounter Details Date Type Department Care Team (Late st Contact Info) Description 04/03/2003 Outpatient Historical [facility] Social History Tobacco Use Types Packs/Day Years Used Date Smoking Tobacco: Never Assessed Comments Unknown Sex and Gender Information Value Date Recorded Sex Assigned at Not on file Legal Sex Female 3:34 AM CHIEF POWER DISPATCHER Gender Identity Not on file Sexual Orientation Not on file documented as of this encounter Plan of Treatment Not on file documented as of this encounter Visit Diagnoses Not on filedocumented in this encounter Care Teams Artificial Snow Making Machine Operator Relationship Specialty Start Date End Date Adrienne March DO [address] [place] [address] PCP - General Family Practice 06/30/10 documented as of this encounter
--- OUTSIDE RECORDS SUMMARY | 2025-06-20 15:26 | XMS_ITS | Encounter Summary ---
Author Organization [facility] Address [address] [place] [address] Care Team Providers Care Metal Dealer Name Role Phone Adrienne March DO Primary Care Provider Encounter Details Date Type Department Care Team (Latest Contact Info) Description 04/21/2003 Outpatient Historical [facility] Physical Therapy [address] [place] [address] [place] [phone] Wilfredo Michel MD [address] [phone] CERVICALGIA (Primary Dx) Social History Tobacco Use Types Packs/Day Years Used Date Smoking Tobacco: Never Assessed Comments Unknown Sex and Gender Information Value Date Recorded Sex Assigned at Not on file 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
--- OUTSIDE RECORDS SUMMARY | 2025-06-20 15:26 | XMS_ITS | Encounter Summary ---
Author Organization [facility] Address [address] [place] [address] Care Team Providers Care Sap Senior Developer Name Role Phone Adrienne March DO Primary Care Provider +1- [phone] Encounter Details Date Type Department Care Team (Latest Contact Info) Description 03/27/2003 Outpatient Historical [facility] Jose Luis Mcmillan MD [address] [place] [address] Cervical spondylosis (Primary Dx); CERVICALGIA Social History Tobacco Use Types Packs/Day Years Used Date Smoking Tobacco: Never Assessed Comments Unknown Sex and Gender Information Value Date Recorded Sex Assigned at Not on file 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
--- OUTSIDE RECORDS SUMMARY | 2025-06-20 15:26 | XMS_ITS | Encounter Summary ---
Author Organization [facility] Address [address] [place] [address] Care Team Providers Care Immigration Officer Name Role Phone Adrienne March DO Primary Care Provider +1- [phone] Encounter Details Date Type Department Care Team (Late st Contact Info) Description 10/01/2003 Inpatient Historical [facility] Jose Luis Mcmillan MD [address] [place] [address] CERVICAL DISC DISPLACMNT (Primary Dx) Social History Tobacco Use Types Packs/Day Years Used Date Smoking Tobacco: Never Assessed Comments Unknown Sex and Gender Information Value Date Recorded Sex Assigned at Not on file Legal Sex Female 3:34 AM HIM MANAGER Gender Identity Not on file Sexual Orientation Not on file documented as of this encounter Plan of Treatment Not on file documented as of this encounter Visit Diagnoses Diagnosis Displacement of cervical intervertebral disc without myelopathy- Primary documented in this encounter Care Teams Immigration Officer Relationship Specialty Start Date End Date Adrienne March DO [address] [place] [address] PCP - General Family Practice 06/30/10 documented as of this encounter
--- OUTSIDE RECORDS SUMMARY | 2025-06-20 15:26 | XMS_ITS | Encounter Summary ---
Author Organization 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
--- OUTSIDE RECORDS SUMMARY | 2025-06-20 15:26 | XMS_ITS | Encounter Summary ---
Author Organization [facility] Address [address] [place] [address] Care Team Providers Care Hooker Operator Name Role Phone Adrienne March DO Primary Care Provider Encounter Details Date Type Department Care Team (Latest Contact Info) Description 10/26/2003 Outpatient [facility] [address] [place] [address] [place] [address] [address] Jose Luis Mcmillan MD [address] [place] [address] PAIN IN LIMB (Primary Dx) Social History Tobacco Use Types Packs/Day Years Used Date Smoking Tobacco: Never Assessed Comments Unknown Sex and Gender Information Value Date Recorded Sex Assigned at Not on file 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
--- OUTSIDE RECORDS SUMMARY | 2025-06-20 15:26 | XMS_ITS | Encounter Summary ---
Author Organization [facility] Address [address] [place]: [place] [address] Care Team Providers Care Drafter Electromechanical Name Role Phone Adrienne March DO Primary Care Provider +1- [phone] Encounter Details Date Type Department Care Team (Late st Contact Info) Description 07/08/2001 Outpatient Historical Abel Hurtado, DPM NO ADDRESS ON FILE Social History Tobacco Use Types Packs/Day Years Used Date Smoking Tobacco: Never Assessed Comments Unknown Sex and Gender Information Value Date Recorded Sex Assigned at Not on file Legal Sex Female 3:34 AM BUSINESS SUPPORT ADMINISTRATOR Gender Identity Not on file Sexual Orientation Not on file documented as of this encounter Plan of Treatment Not on file documented as of this encounter Visit Diagnoses Not on filedocumented in this encounter Care Teams Drafter Electromechanical Relationship Specialty Start Date End Date Adrienne March DO [address] [facility] [place] [address] PCP - General Family Practice 06/30/10 documented as of this encounter
--- OUTSIDE RECORDS SUMMARY | 2025-06-20 15:26 | XMS_ITS | Encounter Summary ---
Author Organization [facility] Address [address] [place]: [place] [address] Care Team Providers Care Entry Writer Name Role Phone Adrienne March DO Primary Care Provider +1- [phone] Encounter Details Date Type Department Care Team (Late st Contact Info) Description 08/29/2001 Outpatient Historical Abel Hurtado, DPM NO ADDRESS ON FILE Social History Tobacco Use Types Packs/Day Years Used Date Smoking Tobacco: Never Assessed Comments Unknown Sex and Gender Information Value Date Recorded Sex Assigned at Not on file Legal Sex Female 3:34 AM TRANSITIONS RN CARE COORDINATOR Gender Identity Not on file Sexual Orientation Not on file documented as of this encounter Plan of Treatment Not on file documented as of this encounter Visit Diagnoses Not on filedocumented in this encounter Care Teams Entry Writer Relationship Specialty Start Date End Date Adrienne March DO [address] [facility] [place] [address] PCP - General Family Practice 06/30/10 documented as of this encounter
--- OUTSIDE RECORDS SUMMARY | 2025-06-20 15:26 | XMS_ITS | Encounter Summary ---
Author Organization [facility] Address [address] [place] [address] Care Team Providers Care Anesthesiologists' Assistant Name Role Phone Adrienne March DO Primary Care Provider Encounter Details Date Type Department Care Team (Latest Contact Info) Description 07/13/2001 Outpatient Historical [facility] Neurology [address], [address] [place] [address] [place]e NO ADDRESS ON FILE Pain in limb (Primary Dx) Social History Tobacco Use Types Packs/Day Years Used Date Smoking Tobacco: Never Assessed Comments Unknown Sex and Gender Information Value Date Recorded Sex Assigned at Not on file Legal Sex Female 3:34 AM MD UROLOGIST Gender Identity Not on file Sexual Orientation Not on file documented as of this encounter Plan of Treatment Not on file documented as of this encounter Visit Diagnoses Diagnosis Pain in limb- Primary Pain in soft tissues of limb documented in this encounter Care Teams Anesthesiologists' Assistant Relationship Specialty Start Date End Date Adrienne March DO [address] [place] [phone] PCP - General Family Practice 06/30/10 documented as of this encounter
--- OUTSIDE RECORDS SUMMARY | 2025-06-20 15:26 | XMS_ITS | Encounter Summary ---
Author Organization [facility] Address [address] [place] [address] Care Team Providers Care Air Route Controller Name Role Phone Adrienne March DO Primary Care Provider Encounter Details Date Type Department Care Team (Late st Contact Info) Description 12/16/2017 Ancillary Orders [facility] Th[facility] 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
--- OUTSIDE RECORDS SUMMARY | 2025-06-20 15:26 | XMS_ITS | Encounter Summary ---
Author Organization [facility] Address [address] [place] [address] Care Team Providers Care Arch Support Maker Name Role Phone Adrienne March DO Primary Care Provider +1- [phone] Encounter Details Date Type Department Care Team (Late st Contact Info) Description 03/21/2003 Outpatient Historical [facility] Social History Tobacco Use Types Packs/Day Years Used Date Smoking Tobacco: Never Assessed Comments Unknown Sex and Gender Information Value Date Recorded Sex Assigned at Not on file Legal Sex Female 3:34 AM CAUL DRESSER Gender Identity Not on file Sexual Orientation Not on file documented as of this encounter Plan of Treatment Not on file documented as of this encounter Visit Diagnoses Not on filedocumented in this encounter Care Teams Arch Support Maker Relationship Specialty Start Date End Date Adrienne March DO [address] [place] [address] PCP - General Family Practice 06/30/10 documented as of this encounter
--- OUTSIDE RECORDS SUMMARY | 2025-06-20 15:26 | XMS_ITS | Encounter Summary ---
Author Organization [facility] Address [address] [place] [address] Care Team Providers Care Blow Up Operator Name Role Phone Adrienne March DO Primary Care Provider +1- [phone] Encounter Details Date Type Department Care Team (Latest Contact Info) Description 04/30/2003 Outpatient Historical [facility] Wilfredo Michel MD [address] [phone] MONONEURITIS NOS (Primary Dx) Social History Tobacco Use Types Packs/Day Years Used Date Smoking Tobacco: Never Assessed Comments Unknown Sex and Gender Information Value Date Recorded Sex Assigned at Not on file Legal Sex Female 3:34 AM 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
--- OUTSIDE RECORDS SUMMARY | 2025-06-20 15:26 | XMS_ITS | Encounter Summary ---
Author Organization [facility] Address [address] [place] [address] Care Team Providers Care Sap Project Manager Name Role Phone Adrienne March DO Primary Care Provider [phone] Encounter Details Date Type Department Care Team (Late st Contact Info) Description 03/25/2020 Ancillary Orders [facility] [place] [address] [place] [address] Adrienne March DO [address] [place] [address] Crushing injury of left elbow, initial encounter Social History Tobacco Use Types Packs/Day Years Used Date Smoking Tobacco: Never Smokeless Tobacco: Never Alcohol Use Standard Drinks/Week Comments No 0 (1 standard drink = 0.6 oz pur e alcohol) Comments No Sex and Gender Information Value Date Recorded Sex Assigned at Not on file 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 [id number] Narrative 03/25/2020 2:46 PM CDT Exam: XR [...] without evidence of an acute osseous abnormality. [id number] Adrienne March DO DIAGNOSTIC IMAGING ORDERABL ES Final Result documented in this encounter Visit Diagnoses Diagnosis Crushing injury of left elbow, initial encounter Crushing injury of left elbow, initial encounter documented in this encounter Care Teams Sap Project Manager Relationship Specialty Start Date End Date Adrienne March DO [address] [place] [address] PCP - General Family Practice 06/30/10 documented as of this encounter
--- OUTSIDE RECORDS SUMMARY | 2025-06-20 15:26 | XMS_ITS | Encounter Summary ---
Author Organization [facility] Address [address] [place] [address] Care Team Providers Care Apron Cleaner Name Role Phone Adrienne March DO Primary Care Provider Encounter Details Date Type Department Care Team (Latest Contact Info) Description 06/22/2003 Outpatient Historical [facility] [address] [place] [address] [place] [phone] Wilfredo Michel MD [address] [phone] CERVICALGIA (Primary Dx) Social History Tobacco Use Types Packs/Day Years Used Date Smoking Tobacco: Never Assessed Comments Unknown Sex and Gender Information Value Date Recorded Sex Assigned at Not on file Legal Sex Female 3:34 AM CHEMICAL TREATMENT PLANT TECHNICIAN Gender Identity Not on file Sexual Orientation Not on file documented as of this encounter Plan of Treatment Not on file documented as of this encounter Visit Diagnoses Diagnosis Cervicalgia- Primary documented in this encounter Care Teams Apron Cleaner Relationship Specialty Start Date End Date Adrienne March DO [address] [place] [address] PCP - General Family Practice 06/30/10 documented as of this encounter
--- OUTSIDE RECORDS SUMMARY | 2025-06-20 15:26 | XMS_ITS | Encounter Summary ---
Author Organization [facility] Address [address] [place] [address] Care Team Providers Care Rocket Motor Mechanic Name Role Phone Adrienne March DO Primary Care Provider +1- [phone] Encounter Details Date Type Department Care Team (Latest Contact Info) Description 02/13/2003 Outpatient Historical [facility] Jose Luis Mcmillan MD [address] [place] [address] CERVICALGIA (Primary Dx); Cervical disc displacmnt; Cervical spondylosis; Cervical spinal stenosis Social History Tobacco Use Types Packs/Day Years Used Date Smoking Tobacco: Never Assessed Comments Unknown Sex and Gender Information Value Date Recorded Sex Assigned at Not on file Legal Sex Female 3:34 AM LOOP CUTTER Gender Identity Not on file Sexual Orientation Not on file documented as of this encounter Plan of Treatment Not on file documented as of this encounter Visit Diagnoses Diagnosis Cervicalgia- Primary Cervical disc displacmnt Displacement of cervical intervertebral disc without myelopathy Cervical spondylosis Cervical spondylosis without myelopathy Cervical spinal stenosis Spinal stenosis in cervical region documented in this encounter Care Teams Rocket Motor Mechanic Relationship Specialty Start Date End Date Adrienne March DO [address] [place] [address] PCP - General Family Practice 06/30/10 documented as of this encounter
--- OUTSIDE RECORDS SUMMARY | 2025-06-20 15:26 | XMS_ITS | Encounter Summary ---
Author Organization [facility] Address [address] [place] [address] Care Team Providers Care Cap Parts Cutter Name Role Phone Adrienne March DO Primary Care Provider Encounter Details Date Type Department Care Team (Latest Contact Info) Description 05/22/2003 Outpatient Historical [facility] Physical Therapy [address] [place] [address] [place] [phone] Wilfredo Michel MD [address] [phone] CERVICALGIA (Primary Dx) Social History Tobacco Use Types Packs/Day Years Used Date Smoking Tobacco: Never Assessed Comments Unknown Sex and Gender Information Value Date Recorded Sex Assigned at Not on file Legal Sex Female 3:34 AM CLINICAL RESEARCH SPECIALIST Gender Identity Not on file Sexual Orientation Not on file documented as of this encounter Plan of Treatment Not on file documented as of this encounter Visit Diagnoses Diagnosis Cervicalgia- Primary documented in this encounter Care Teams Cap Parts Cutter Relationship Specialty Start Date End Date Adrienne March DO [address] [place] [address] PCP - General Family Practice 06/30/10 documented as of this encounter
--- OUTSIDE RECORDS SUMMARY | 2025-06-20 15:26 | XMS_ITS | Encounter Summary ---
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
--- OUTSIDE RECORDS SUMMARY | 2025-06-20 15:27 | XMS_ITS | Encounter Summary ---
Author Organization [facility] Address [address] [place] [address] Care Team Providers Care Swine Genetics Researcher Name Role Phone Adrienne March DO Primary Care Provider [phone] Encounter Details Date Type Department Care Team (Latest Contact Info) Description 05/17/2007 Outpatient Historical [facility] Gen Spec Surg [place] [address] [place] [address] Ketan Lew MD [address] [place] [address] Ulcer of Lower Limb, Unspecified (CMS/HCC) (Primary Dx); Gangrene (CMS/HCC); Other Postoperative Infection; Follow-Up Examination, Following Unspecified Surgery Social History Tobacco Use Types Packs/Day Years Used Date Smoking Tobacco: Never Assessed Comments Unknown Sex and Gender Information Value Date Recorded Sex Assigned at Not on file Legal Sex Female 3:34 AM HIDE PULLER Gender Identity Not on file Sexual Orientation Not on file documented as of this encounter Plan of Treatment Not on file documented as of this encounter Visit Diagnoses Diagnosis Ulcer of lower limb, unspecified- Primary Gangrene (CMS/HCC) Gangrene Other postoperative infection Follow-up examination, following unspecified surgery documented in this encounter Care Teams Swine Genetics Researcher Relationship Specialty Start Date End Date Adrienne March DO [address] [place] [address] PCP - General Family Practice 06/30/10 documented as of this encounter
--- OUTSIDE RECORDS SUMMARY | 2025-06-20 15:27 | XMS_ITS | Encounter Summary ---
Author Organization [facility] Address [address] [place] [address] Care Team Providers Care Crnp Name Role Phone Adrienne March DO Primary Care Provider Encounter Details Date Type Department Care Team (Latest Contact Info) Description 08/06/2005 Outpatient Historical [facility]- [address] [place] [address] [place] [phone] Josse Ferguson MD NO ADDRESS ON FILE Healed fx follow-up (Primary Dx); OBESITY NOS Social History Tobacco Use Types Packs/Day Years Used Date Smoking Tobacco: Never Assessed Comments Unknown Sex and Gender Information Value Date Recorded Sex Assigned at Not on file Legal Sex Female 3:34 AM PATTERNMAKER WOOD Gender Identity Not on file Sexual Orientation Not on file documented as of this encounter Plan of Treatment Not on file documented as of this encounter Visit Diagnoses Diagnosis Healed fx follow-up- Primary Treatment of healed fracture follow-up examination Obesity, unspecified documented in this encounter Care Teams Crnp Relationship Specialty Start Date End Date Adrienne March DO [address] [place] [address] PCP - General Family Practice 06/30/10 documented as of this encounter
--- OUTSIDE RECORDS SUMMARY | 2025-06-20 15:27 | XMS_ITS | Encounter Summary ---
Author Organization [facility] Address [address] [place] [address] Care Team Providers Care Assembling Fabricator Name Role Phone Adrienne March DO Primary Care Provider Encounter Details Date Type Department Care Team (Latest Contact Info) Description 07/28/2007 Outpatient Historical [facility] Gen Spec Surg [place] [address] [place] [address] Ketan Lew MD [address] [place] [address] Ulcer of Lower Limb, Unspecified (CMS/HCC) (Primary Dx); Gangrene (CMS/HCC); Other Postoperative Infection; Follow-Up Examination, Following Unspecified Surgery Social History Tobacco Use Types Packs/Day Years Used Date Smoking Tobacco: Never Assessed Comments Unknown Sex and Gender Information Value Date Recorded Sex Assigned at Not on file Legal Sex Female 3:34 AM CATALYST RECOVERY OPERATOR Gender Identity Not on file Sexual Orientation Not on file documented as of this encounter Plan of Treatment Not on file documented as of this encounter Visit Diagnoses Diagnosis Ulcer of lower limb, unspecified- Primary Gangrene (CMS/HCC) Gangrene Other postoperative infection Follow-up examination, following unspecified surgery documented in this encounter Care Teams Assembling Fabricator Relationship Specialty Start Date End Date Adrienne March DO [address] [place] [address] PCP - General Family Practice 06/30/10 documented as of this encounter
--- OUTSIDE RECORDS SUMMARY | 2025-06-20 15:27 | XMS_ITS | Encounter Summary ---
Author Organization [facility] Address [address] [address] [place] [address] Phone Care Team Providers Care Train Starter Name Role Phone Unavailable Primary Care Provider Unavailabl e Encounter Details Date Type Department Care Team (Late st Contact Info) Description 04/06/2025 Orders Only [facility] [facility] 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) Social History Tobacco Use Types Packs/Day Years Used Date Smoking Tobacco: Never Assessed Comments Unknown Sex and Gender Information Value Date Recorded Sex Assigned at Not on file Legal Sex Female 9:22 AM EDT Gender Identity Not on file Sexual Orientation Not on file documented as of this encounter Plan of Treatment Upcoming Encounters Date Type Department Care Team (Late st Contact Info) Description 09/25/2025 10:30 AM BAG MACHINE TENDER Office Visit [facility] [employer] [facility] [address] [place] [address] Bartolo Stanton MD [address] [address] documented as of this encounter Visit Diagnoses Diagnosis 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
--- OUTSIDE RECORDS SUMMARY | 2025-06-20 15:27 | XMS_ITS | Clinical Summary ---
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) 04/05/2025 Office Communication [facility] [address] [place] [address] Bartolo Stanton MD 04/05/2025 Transcribe Orders [facility] [address] [place] [address] Wilson, December, GRADING SUPERVISOR 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) (Primary Dx) from Last 3 Months Social History Tobacco Use Types Packs/Day Years Used Date Smoking Tobacco: Never Assessed Comments Unknown Sex and Gender Information Value Date Recorded Sex Assigned at Not on file Legal Sex Female 9:22 AM EDT Gender Identity Not on file Sexual Orientation Not on file Plan of Treatment Upcoming Encounters Date Type Department Care Team (Late st Contact Info) Description 09/25/2025 10:30 AM RESPIRATORY THERAPY MANAGER Office Visit [facility] [address] [place], [place] [address] Bartolo Stanton MD [address] [place] [address] Health Maintenance Due Date Last Done Comments Diabetes: Hemoglobin A1C 04/05/2025 05/23/2020 Diabetes: Ophthalmology Exam 04/05/2025 Diabetes: Pedal Pulse Checked 04/05/2025 Diabetes: Sensory Foot Exam 04/05/2025 Diabetes: Visual Foot Exam 04/05/2025 Influenza Vaccine (#1) 2025 4, 05/21/2019, 05/04/2019, Additional history exists Pneumococcal Vaccine: 50+ Years Completed 01/11/2017, 10/24/2014, 06/30/2010 Hepatitis B Vaccine Aged Out No longe r eligible based on patient's age to complete this topic Insurance [facility] [place] [facility] Adv ([id number]) Medicaid [place] ([id number])
--- OUTSIDE RECORDS SUMMARY | 2025-06-20 15:27 | XMS_ITS | Encounter Summary ---
Author Organization [facility] Address [address] [place] [address] Care Team Providers Care Assistant Golf Course Superintendent Name Role Phone Adrienne March DO Primary Care Provider Encounter Details Date Type Department Care Team (Late st Contact Info) Description 02/01/2008 Outpatient Historical [facility] [address] 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
--- OUTSIDE RECORDS SUMMARY | 2025-06-20 15:27 | XMS_ITS | Encounter Summary ---
Author Organization [facility] Address [address] [place] [address] Care Team Providers Care Steam Fitter Supervisor Name Role Phone Adrienne March DO Primary Care Provider Encounter Details Date Type Department Care Team (Latest Contact Info) Description 03/08/2007 Outpatient Historical [facility] Gen Spec Surg [place] [address] [place] [address] [place] [address] Ketan Lew MD [address] [place] [address] Ulcer of Lower Limb, Unspecified (CMS/HCC) (Primary Dx); Gangrene (CMS/HCC); Follow-Up Examination, Following Unspecified Surgery Social History Tobacco Use Types Packs/Day Years Used Date Smoking Tobacco: Never Assessed Comments Unknown Sex and Gender Information Value Date Recorded Sex Assigned at Not on file Legal Sex Female 3:34 AM TRANSPORTATION DIRECTOR Gender Identity Not on file Sexual Orientation Not on file documented as of this encounter Plan of Treatment Not on file documented as of this encounter Visit Diagnoses Diagnosis Ulcer of lower limb, unspecified- Primary Gangrene (CMS/HCC) Gangrene Follow-up examination, following unspecified surgery documented in this encounter Care Teams Steam Fitter Supervisor Relationship Specialty Start Date End Date Adrienne March DO [address] [place] [address] PCP - General Family Practice 06/30/10 documented as of this encounter
--- OUTSIDE RECORDS SUMMARY | 2025-06-20 15:27 | XMS_ITS | Encounter Summary ---
Author Organization [facility] Address [address] [place] [address] Care Team Providers Care Upholsterer Inside Name Role Phone Adrienne March DO Primary Care Provider [phone] Encounter Details Date Type Department Care Team (Latest Contact Info) Description 03/08/2007 Outpatient Historical [facility] Plastic Surgery [address] [place] [address] [place] [phone] Pako Black MD NO ADDRESS ON FILE Open Wound of Knee, Leg (except Thigh), and Ankle, Complicated (Primary Dx) Social History Tobacco Use Types Packs/Day Years Used Date Smoking Tobacco: Never Assessed Comments Unknown Sex and Gender Information Value Date Recorded Sex Assigned at Not on file Legal Sex Female 3:34 AM NICK SETTER Gender Identity Not on file Sexual Orientation Not on file documented as of this encounter Plan of Treatment Not on file documented as of this encounter Visit Diagnoses Diagnosis Open wound of knee, leg (except thigh), and ankle, complicated- Primary documented in this encounter Care Teams Upholsterer Inside Relationship Specialty Start Date End Date Adrienne March DO [address] [place] [address] PCP - General Family Practice 06/30/10 documented as of this encounter
--- OUTSIDE RECORDS SUMMARY | 2025-06-20 15:27 | XMS_ITS | Encounter Summary ---
Author Organization [facility] Address [address] [place] [address] Care Team Providers Care Sales Department Supervisor Name Role Phone Adrienne March Primary Care Provider Encounter Details Date Type Department Care Team (Late st Contact Info) Description 10/04/2007 Outpatient Historical [facility] [place] Gen Spec Surg [place] [address] [place] [address] Ketan Lew MD [address] [place] [address] Social History Tobacco Use Types Packs/Day Years Used Date Smoking Tobacco: Never Assessed Comments Unknown Sex and Gender Information Value Date Recorded Sex Assigned at Not on file Legal Sex Female 3:34 AM PLATE COLORER Gender Identity Not on file Sexual Orientation [...] , P, trina Job #: Document #: [id number] cc: Alexei Dubon D.O. E COLORER E COLORER documented in this encounter Plan of Treatment Not on file documented as of this encounter Visit Diagnoses Not on filedocumented in this encounter Care Teams Sales Department Supervisor Relationship Specialty Start Date End Date Adrienne March DO [address] [place] [address] PCP - General Family Practice 06/30/10 documented as of this encounter
--- OUTSIDE RECORDS SUMMARY | 2025-06-20 15:27 | XMS_ITS | Encounter Summary ---
Author Organization [facility] Address [address] [place] [address] Care Team Providers Care Record Pressman Name Role Phone Adrienne March DO Primary Care Provider Encounter Details Date Type Department Care Team (Late st Contact Info) Description 02/01/2008 Outpatient Historical [address] Neuro [address] [place] [address] Ed, Physician NO ADDRESS ON FILE Marcelino Sauceda MD NO ADDRESS ON FILE Sushil Enrique MD [address] [place] [id number] Social History Tobacco Use Types Packs/Day Years Used Date Smoking Tobacco: Never Assessed Comments Unknown Sex and Gender Information Value Date Recorded Sex Assigned at Not on file Legal Sex Female 3:34 AM [employer]AD MAK[employer] Gender Identity Not on file Sexual [...] GLUCOSE POC 216(H) 60 - 100 mg/dL [facility] Venous blood specimen (specimen) 02/06/2008 6:49 AM CDT 02/07/2008 6:53 AM CDT us Sushil Enrique MD POINT OF CARE TESTING Final Res ult [facility] CLIA# [id number] [address] [place] [address] * CLOSTRIDIUM DIFFICILE TOXIN (02/05/2008 10:03 PM CDT) C DIFFICILE TOXIN Negative Negative [facility] 02/05/2008 10:0 3 PM CDT 02/05/2008 10:03 PM CDT Sushil Enrique MD MICROBIOLOGY - GENERAL ORDERABL ES Final Result Performing Organization Address [facility] Co de Phone Number [facility] CLIA# [id number] [address] [place] [address] * (ABNORMAL) POC GLUCOSE (02/05/2008 8:47 PM CDT) GLUCOSE POC 116(H) 60 - 100 mg/dL [facility] Venous blood specimen (specimen) 02/05/2008 8:47 PM CDT 02/06/2008 12:45 AM CDT Sushil Enrique MD POINT OF CARE TESTING Final Res ult Performing Organization Address [facility] Co de Phone Number [facility] CLIA# [id number] [address] [place] [address] * (ABNORMAL) POC GLUCOSE (02/05/2008 4:38 PM CDT) GLUCOSE POC 276(H) 60 - 100 mg/dL [facility] Venous blood specimen (specimen) 02/05/2008 4:38 PM CDT 02/06/2008 12:57 AM CDT Sushil Enrique MD POINT OF CARE TESTING Final Res ult Performing Organization Address [facility] Co de Phone Number [facility] CLIA# [id number] [address] [place] [address] * (ABNORMAL) POC GLUCOSE (02/05/2008 11:08 AM CDT) GLUCOSE POC 157(H) 60 - 100 mg/dL [facility] Venous blood specimen (specimen) 02/05/2008 11:08 AM CDT 02/05/2008 12:24 PM CDT Sushil Enrique MD POINT OF CARE TESTING Final Res ult Performing Organization Address [facility] Co de Phone Number [facility] CLIA# [id number] [address] [place] [address] * (ABNORMAL) POC GLUCOSE (02/05/2008 7:52 AM CDT) [facility] Signature GLUCOSE POC 168(H) 60 - 100 mg/dL [facility] Venous blood specimen (specimen) 02/05/2008 7:52 AM CDT 02/05/2008 12:24 PM CDT Sushil Enrique MD POINT OF CARE TESTING Final Res ult Performing Organization Address [facility] de Phone Number [facility] CLIA# [id number] [address] [place] [address] * PHENYTOIN LEVEL, TOTAL (02/05/2008 6:00 AM CDT) [facility] PHENYTOIN TOTAL 11.4 10.0 - 20.0 ug/mL [facility] Blood specimen (specimen) 02/05/2008 6:00 AM CDT 02/05/2008 6:21 AM CDT Sushil Enrique MD CHEMISTRY ORDERABLES Final Resu lt Performing Organization Address [facility] de Phone Number [facility] CLIA# [id number] [address] [place] [phone] * (ABNORMAL) CBC WITH DIFFERENTIAL (02/04/2008 10:22 PM CDT) BASOPHILS 0.3 0.0 - 1.0 % [facility] MPV 10.0 8.9 - 12.8 Fl [facility] BASOPHILS ABSOLUTE 0.0 0.0 - 0.2 K/ul [facility] HEMOGLOBIN 14.7 12.0 - 16.0 g/dL [facility] MONOCYTES 7.6 2.0 - 10.0 % [facility] RDW 13.6 11.0 - 14.5 % [facility] MONOCYTE ABSOLUTE 0.9(H) 0.1 - 0.6 K/ul [facility] WBC 11.9(H) 4.8 - 10.8 K/ul [facility] NEUTROPHILS 75.7(H) 42.2 - 75.2 % [facility] MCH 28.4 27.0 - 34.0 pg [facility] NEUTROPHIL ABSOLUTE 9.0(H) 2.0 - 8.0 K/ul [facility] HEM COMMENT [place]:15 11 [facility] HEMATOCRIT 46.8(H) 36.0 - 46.0 % [facility] PLATELETS 354 140 - 440 K/ul [facility] EOSINOPHIL ABSOLUTE 0.1 0.0 - 0.7 K/ul [facility] EOSINOPHILS 0.9 0.0 - 7.0 % [facility] RBC 5.18 4.20 - 5.40 Mil/ul [facility] MCHC 31.4 30.0 - 35.0 g/dL [facility] LYMPHOCYTE ABSOLUTE 1.9 1.2 - 4.0 K/ul [facility] LYMPHOCYTES 15.5(L) 24.0 - 44.0 % [facility] MCV 90.3 84.0 - 103.0 Fl [facility] Blood specimen (specimen) 02/04/2008 10:22 PM CDT 02/04/2008 10:22 PM CDT us Sushil Enrique MD HEMATOLOGY ORDERABLES Edited [facility] CLIA# [id number] [address] [place] [address] * (ABNORMAL) POC GLUCOSE (02/04/2008 8:43 PM CDT) GLUCOSE POC 225(H) 60 - 100 mg/dL [facility] Venous blood specimen (specimen) 02/04/2008 8:43 PM CDT 02/04/2008 11:46 PM CDT us Sushil Enrique MD POINT OF CARE TESTING Final Res ult Performing Organization Address [facility] Co de Phone Number [facility] CLIA# [id number] [address] [place] [address] * (ABNORMAL) POC GLUCOSE (02/04/2008 5:23 PM CDT) GLUCOSE POC 153(H) 60 - 100 mg/dL [facility] Venous blood specimen (specimen) 02/04/2008 5:23 PM CDT 02/04/2008 11:42 PM CDT us Sushil Enrique MD POINT OF CARE TESTING Final Res ult Performing Organization Address [facility] Co de Phone Number [facility] CLIA# [id number] [address] [place] [address] * PHENYTOIN LEVEL, TOTAL (02/04/2008 3:11 PM CDT) PHENYTOIN TOTAL 12.4 10.0 - 20.0 ug/mL [facility] Blood specimen (specimen) 02/04/2008 3:11 PM CDT 02/04/2008 3:32 PM CDT us Sushil Enrique MD CHEMISTRY ORDERABLES Final Resu lt Performing Organization Address City/[facility]/ZIP Co de Phone Number [facility] CLIA# [id number] [address] [place] [address] * AMYLASE (02/04/2008 3:11 PM CDT) Pathologist [facility] AMYLASE 20 20 - 104 U/L [facility] Blood specimen (specimen) 02/04/2008 3:11 PM CDT 02/04/2008 3:32 PM CDT Sushil Enrique MD CHEMISTRY ORDERABLES Final Resu lt [facility] CLIA# [id number] [address] [place] [address] * (ABNORMAL) COMPREHENSIVE METABOLIC PANEL (02/04/2008 3:11 PM CDT) [facility] ALBUMIN 4.0 3.5 - 5.0 g/dL [facility] POTASSIUM 3.8 3.5 - 5.0 mEq/L [facility] GLOBULIN (CALC) 3.0 2.4 - 3.9 g/dL [facility] CREATININE 1.2 0.7 - 1.2 mg/dL [facility] CALCIUM 9.3 8.4 - 10.5 mg/dL [facility] ALT 28 4 - 36 IU/L [facility] OSMOLALITY, CALCULATED 290 275 - 295 mOsm/Kg [facility] GLUCOSE 156(H) 70 - 110 mg/dL [facility] CHLORIDE 99 95 - 110 mEq/L [facility] ALKALINE PHOSPHATASE 103(H) 25 - 100 U/L [facility] ALBUMIN/GLOBULIN RATIO 1.3 1.0 - 2.3 [facility] SODIUM 139 136 - 145 mEq/L [facility] TOTAL PROTEIN 7.0 6.3 - 8.2 g/dL [facility] BILIRUBIN TOTAL 0.2(L) 0.3 - 1.2 mg/dL [facility] BUN 15 7 - 17 mg/dL [facility] AST 24 8 - 33 U/L [facility] CO2 32 22 - 32 mmol/l [facility] ANION GAP 12 9 - 20 mEq/L [facility] Blood specimen (specimen) 02/04/2008 3:11 PM CDT 02/04/2008 3:32 PM CDT Sushil Enrique MD CHEMISTRY ORDERABLES Final Resu lt Performing Organization Address [facility] Co de Phone Number [facility] CLIA# [id number] [address] [place] [address] * (ABNORMAL) POC GLUCOSE (02/04/2008 12:44 PM CDT) GLUCOSE POC 150(H) 60 - 100 mg/dL [facility] Venous blood specimen (specimen) 02/04/2008 12:44 PM CDT 02/04/2008 11:42 PM CDT Sushil Enrique MD POINT OF CARE TESTING Final Res ult Performing Organization Address [facility] de Phone Number [facility] CLIA# [id number] [address] [place] [address] * (ABNORMAL) POC GLUCOSE (02/04/2008 8:55 AM CDT) GLUCOSE POC 247(H) 60 - 100 mg/dL [facility] Venous blood specimen (specimen) 02/04/2008 8:55 AM CDT 02/04/2008 11:42 PM CDT Sushil Enrique MD POINT OF CARE TESTING Final Res ult Performing Organization Address [facility] de Phone Number [facility] CLIA# [id number] [address] [place] [address] * (ABNORMAL) POC GLUCOSE (02/03/2008 10:35 PM CDT) GLUCOSE POC 209(H) 60 - 100 mg/dL [facility] Venous blood specimen (specimen) 02/03/2008 10:35 PM CDT 02/04/2008 1:59 AM CDT Sushil Enrique MD POINT OF CARE TESTING Final Res ult Performing Organization Address [facility] Co de Phone Number [facility] CLIA# [id number] [address] [place] [address] * (ABNORMAL) POC GLUCOSE (02/03/2008 4:56 PM CDT) GLUCOSE POC 317(H) 60 - 100 mg/dL [facility] Venous blood specimen (specimen) 02/03/2008 4:56 PM CDT 02/04/2008 1:55 AM CDT us Sushil Enrique MD POINT OF CARE TESTING Final Res ult Performing Organization Address [facility] de Phone Number [facility] CLIA# [id number] [address] [place] [address] * (ABNORMAL) POC GLUCOSE (02/03/2008 11:53 AM CDT) GLUCOSE POC 213(H) 60 - 100 mg/dL [facility] Venous blood specimen (specimen) 02/03/2008 11:53 AM CDT 02/04/2008 11:08 AM CDT Sushil Enrique MD POINT OF CARE TESTING Final Res ult Performing Organization Address [facility] de Phone Number [facility] CLIA# [id number] [address] [place] [address] * (ABNORMAL) POC GLUCOSE (02/03/2008 5:16 AM CDT) GLUCOSE POC 256(H) 60 - 100 mg/dL [facility] Venous blood specimen (specimen) 02/03/2008 5:16 AM CDT 02/03/2008 6:38 AM CDT Sushil Enrique MD POINT OF CARE TESTING Final Res ult Performing Organization Address [facility] Co de Phone Number [facility] CLIA# [id number] [address] [place] [address] * PHENYTOIN LEVEL, TOTAL (02/03/2008 4:06 AM CDT) PHENYTOIN TOTAL 15.8 10.0 - 20.0 ug/mL [facility] Blood specimen (specimen) 02/03/2008 4:06 AM CDT 02/03/2008 4:06 AM CDT Sushil Enrique MD CHEMISTRY ORDERABLES Final Resu lt Performing Organization Address [facility] de Phone Number [facility] CLIA# [id number] [address] [place] [address] * (ABNORMAL) POC GLUCOSE (02/02/2008 8:14 PM CDT) GLUCOSE POC 189(H) 60 - 100 mg/dL [facility] Venous blood specimen (specimen) 02/02/2008 8:14 PM CDT 02/03/2008 6:38 AM CDT Sushil Enrique MD POINT OF CARE TESTING Final Res ult Performing Organization Address [facility] de Phone Number [facility] CLIA# [id number] [address] [place] [address] * (ABNORMAL) POC GLUCOSE (02/02/2008 4:34 PM CDT) GLUCOSE POC 243(H) 60 - 100 mg/dL [facility] Venous blood specimen (specimen) 02/02/2008 4:34 PM CDT 02/03/2008 6:38 AM CDT us Sushil Enrique MD POINT OF CARE TESTING Final Res ult Performing Organization Address [facility] de Phone Number [facility] CLIA# [id number] [address] [place] [address] * PHENYTOIN LEVEL, TOTAL (02/02/2008 3:19 PM CDT) PHENYTOIN TOTAL 18.5 10.0 - 20.0 ug/mL [facility] Blood specimen (specimen) 02/02/2008 3:19 PM CDT 02/02/2008 3:28 PM CDT us Marley Dietrich MD CHEMISTRY ORDERABLES Final Resul t Performing Organization Address [facility] Phone Number [facility] CLIA# [id number] [address] [place] [address] * (ABNORMAL) POC GLUCOSE (02/02/2008 1:27 PM CDT) GLUCOSE POC 386(H) 60 - 100 mg/dL [facility] Venous blood specimen (specimen) 02/02/2008 1:27 PM CDT 02/03/2008 6:38 AM CDT us Sushil Enrique MD POINT OF CARE TESTING Final Res ult Performing Organization Address [facility] de Phone Number [facility] CLIA# [id number] [address] [place] [address] * (ABNORMAL) PHENYTOIN LEVEL, TOTAL (02/02/2008 12:11 PM CDT) PHENYTOIN TOTAL 0.9(L) 10.0 - 20.0 ug/mL [facility] Blood specimen (specimen) 02/02/2008 12:11 PM CDT 02/02/2008 12:23 PM CDT Sushil Enrique MD CHEMISTRY ORDERABLES Final Resu lt Performing Organization Address [facility] Co de Phone Number [facility] CLIA# [id number] [address] [place] [address] * (ABNORMAL) POC GLUCOSE (02/02/2008 12:08 PM CDT) GLUCOSE POC 401(H) 60 - 100 mg/dL [facility] Venous blood specimen (specimen) 02/02/2008 12:08 PM CDT 02/03/2008 6:38 AM CDT us Sushil Enrique MD POINT OF CARE TESTING Final Res ult Performing Organization Address [facility] de Phone Number [facility] CLIA# [id number] [address] [place] [address] * MRSA CULTURE (02/02/2008 9:56 AM CDT) FINAL REPORT Culture screen for MRSA negative INTERFACE SYSTEM 02/02/2008 9:56 AM CDT 02/02/2008 8:37 PM CDT us Sushil Enirque MD MICROBIOLOGY - GENERAL ORDERABL ES Final Result Performing Organization Address [facility] de Phone Number INTERFACE SYSTEM Refer to clinic/hospital department * (ABNORMAL) POC GLUCOSE (02/02/2008 6:40 AM CDT) GLUCOSE POC 393(H) 60 - 100 mg/dL [facility] Venous blood specimen (specimen) 02/02/2008 6:40 AM CDT 02/03/2008 1:57 AM CDT us Sushil Enrique MD POINT OF CARE TESTING Final Res ult Performing Organization Address [facility] Co de Phone Number [facility] CLIA# [id number] [address] [place] [address] * (ABNORMAL) LIPID PANEL (02/02/2008 6:10 AM CDT) CHOLESTEROL 220(H) 0 - 200 mg/dL [facility] Comment: On 01/23/2008 [facility] changed the cholesterol reference range to 0-200 mg/dl. This is the recommendation of the National Cholesterol Education Program (NCEP-ATPIII). CALCULATED LDL CHOLESTEROL 117(H) 0 - 100 mg/dL [facility] Comment: On 01/23/2008 [facility] changed the LDL reference range to 0- 100 mg/dl. This is the recommendation of the National Cholesterol Education Program (NCEP-ATPIII). HDL 40 40 - 60 mg/dL [facility] CALCULATED TOTAL CHOLESTEROL TO HDL RATIO 5.50(H) 3.27 - 4.44 [facility] TRIGLYCERIDE 315(H) 0 - 150 mg/dL [facility] Comment: On 01/23/2008, [facility] changed the triglyceride reference range to 0-150 mg/dl. This is the recommendation of the National Cholesterol Education Program (NCEP-ATPIII). Blood specimen (specimen) 02/02/2008 6:10 AM CDT 02/02/2008 6:31 AM CDT us Sushil Enrique MD CHEMISTRY ORDERABLES Final Resu lt [facility] CLIA# [id number] [address] [place] [address] * (ABNORMAL) URINALYSIS (02/02/2008 5:10 AM CDT) Pathologist [facility] LEUKOCYTE ESTERASE UA NEGATIVE NEGATIVE [facility] KETONES UA NEGATIVE NEGATIVE [facility] MICRO EXAM No No [facility] COLOR UA Yellow Straw [facility] PROTEIN UA NEGATIVE NEGATIVE [facility] BLOOD UA NEGATIVE NEGATIVE [facility] NITRITE UA NEGATIVE NEGATIVE [facility] UROBILINOGEN UA 0.2 0.2 [facility] CLARITY UA Clear Clear [facility] SPECIFIC GRAVITY UA 1.020 <=1.005 [facility] GLUCOSE UA >=1000 mg/dl(A) NEGATIVE [facility] PH UA 6.0 5.0 - 9.0 [facility] BILIRUBIN UA NEGATIVE NEGATIVE [facility] Urine specimen (specimen) 02/02/2008 5:10 AM CDT 02/02/2008 5:10 AM CDT us Marcelino Sauceda MD URINE ORDERABLES Final Result [facility] CLIA# [id number] [address] [place] [address] * MRI BRAIN W WO CONTRAST (02/01/2008 [...] calvarial lesions. Additional thin section postcontrast fat-saturated [id number] images were obtained through the orbits. No [...] CDT) RBC 5.24 4.20 - 5.40 Mil/ul [facility] LYMPHOCYTES 23.8(L) 24.0 - 44.0 % [facility] MCHC 32.7 30.0 - 35.0 g/dL [facility] LYMPHOCYTE ABSOLUTE 2.2 1.2 - 4.0 K/ul [facility] MCV 87.0 84.0 - 103.0 Fl [facility] MPV 9.4 8.9 - 12.8 Fl [facility] BASOPHILS ABSOLUTE 0.0 0.0 - 0.2 K/ul [facility] BASOPHILS 0.2 0.0 - 1.0 % [facility] HEMOGLOBIN 14.9 12.0 - 16.0 g/dL [facility] RDW 13.2 11.0 - 14.5 % [facility] MONOCYTE ABSOLUTE 0.6 0.1 - 0.6 K/ul [facility] MONOCYTES 6.4 2.0 - 10.0 % [facility] WBC 9.2 4.8 - 10.8 K/ul [facility] MCH 28.4 27.0 - 34.0 pg [facility] NEUTROPHIL ABSOLUTE 6.2 2.0 - 8.0 K/ul [facility] NEUTROPHILS 67.4 42.2 - 75.2 % [facility] HEMATOCRIT 45.6 36.0 - 46.0 % [facility] EOSINOPHILS 2.2 0.0 - 7.0 % [facility] PLATELETS 282 140 - 440 K/ul [facility] EOSINOPHIL ABSOLUTE 0.2 0.0 - 0.7 K/ul [facility] Blood specimen (specimen) 02/01/2008 7:34 PM CDT 02/01/2008 7:34 PM CDT us Marcelino Sauceda MD HEMATOLOGY ORDERABLES Final Res ult [facility] CLIA# [id number] [address] [place] [address] * PT AND APTT (02/01/2008 7:34 PM CDT) PROTIME 13.5 12.8 - 15.8 Secs [facility] Comment:As of 2007 not e change in normal range. INR 0.9 [facility] Comment: Expected Values for INR: DVT/PE Goal INR 2.5; range 2.0 - 3.0 Valve Replacement Tissue Goal INR 2.5; range 2.0 - 3.0 Mechanical Goal INR 3.0; range 2.5 - 3.5 POST-[place] Goal INR 2.5; range 2.0 - 3.0 or Goal 3.0; range 2.5 - 3.5 Atrial Fibrillation Goal INR 2.5; range 2.0 - 3.0 Ischemic Stroke Goal INR 2.5; range 2.0 - 3.0 For additional information see Guidelines for Anticoagulation available from the pharmacy Ciara Bradley [phone] PTT 27.7 22.5 - 36.5 Secs [facility] [...] us Marcelino Sauceda MD HEMATOLOGY ORDERABLES Edited [facility] CLIA# [id number] [address] [place] [address] * (ABNORMAL) BASIC METABOLIC PANEL (02/01/2008 7:34 PM CDT) OSMOLALITY, CALCULATED 296(H) 275 - 295 mOsm/Kg [facility] POTASSIUM 3.9 3.5 - 5.0 mEq/L [facility] CREATININE 1.1 0.7 - 1.2 mg/dL [facility] CALCIUM 9.6 8.4 - 10.5 mg/dL [facility] GLUCOSE 283(H) 70 - 110 mg/dL [facility] CHLORIDE 100 95 - 110 mEq/L [facility] SODIUM 139 136 - 145 mEq/L [facility] ANION GAP 11 9 - 20 mEq/L [facility] BUN 13 7 - 17 mg/dL [facility] CO2 32 22 - 32 mmol/l [facility] Blood specimen (specimen) 02/01/2008 7:34 PM CDT 02/01/2008 7:34 PM CDT us Marcelino Sauceda MD CHEMISTRY ORDERABLES Final Resu lt Performing Organization Address City/State/[facility] Co de Phone Number [facility] CLIA# [id number] [address] [place] [address] documented in this encounter Visit Diagnoses Not on filedocumented in this encounter Care Teams Record Pressman Relationship Specialty Start Date End Date Adrienne March DO [address] [place] [address] PCP - General Family Practice 06/30/10 documented as of this encounter
--- OUTSIDE RECORDS SUMMARY | 2025-06-20 15:27 | XMS_ITS | Encounter Summary ---
Author Organization [facility] Address [address] [address] Phone Care Team Providers Care Aerophysicist Name Role Phone Unavailable Primary Care Provider Unavailabl e Reason for Referral * Consultation (Routine) - Authorized Specialty Diagnoses / Procedures Referred By Amparo t Referred To Contact Nephrology Diagnoses 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) Katie December, MOLDING FITTER [address] [place] [address] Phone: tel: fax: Bartolo Stanton MD [address] [facility] [address] [place] [address] Phone: tel: fax: Referral ID Status Reason Start Date Expiration Date Visits Requested Visits Authorized [id number] Authorized Consult and Treat 04/05/2025 04/05/2026 1 1 Encounter Details Date Type Department Care Team (Latest Contact Info) Description 04/05/2025 Transcribe Orders [facility] [address] [facility] [address] [place] [address] Katie December MOLDING [employer]TER [address] [place] [address] 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) (Primary Dx) Social History Tobacco Use Types [...] st Contact Info) Description 09/25/2025 10:30 AM WIND DEVELOPMENT DIRECTOR Office Visit [facility] [address] [place] [address] Bartolo Stanton MD [address] [facility] [address] [place] [address] Scheduled Referrals Name Type Priority Associated Diagnoses Order Schedule Ambulatory referral to Nephrology Outpatient Referral Routine 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) Expected: 04/06/2025, Expires: 04/05/2026 documented as of this encounter Visit Diagnoses Diagnosis 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)- Primary documented in this encounter
--- OUTSIDE RECORDS SUMMARY | 2025-06-20 15:27 | XMS_ITS | Encounter Summary ---
Author Organization [facility] Address [address] [place] [address] Care Team Providers Care Garment Worker Name Role Phone AncaAdrienne forbes Primary Care Provider Encounter Details Date Type Department Care Team (Late st Contact Info) Description 01/24/2008 Emergency [facility] [address] [place] [phone] Ed, Physician NO ADDRESS ON FILE John Power MD NO ADDRESS ON FILE Social History Tobacco Use Types Packs/Day Years Used Date Smoking Tobacco: Never Assessed Comments Unknown Sex and Gender Information Value Date Recorded Sex Assigned at Not on file Legal Sex Female 3:34 AM DUCT LAYER SUPERVISOR Gender Identity Not on file Sexual [...] URINE CULTURE (01/24/2008 9:49 PM CDT) Pathologist [facility] FINAL REPORT Multiple species isolated. Probable contamination at collection. If clinically indicated, please submit an appropriately collected specimen. INTERFACE SYSTEM 01/24/2008 9:49 PM CDT 01/24/2008 9:49 PM CDT us John Power MD MICROBIOLOGY - GENERAL ORD ERABLES Final Result INTERFACE SYSTEM Refer to clinic/hospital department * (ABNORMAL) POC GLUCOSE (01/24/2008 6:31 PM CDT) Pathologist [facility] GLUCOSE POC 366(H) 60 - 100 mg/dL [facility] COMMENT POC Called M.D. [facility] Venous blood specimen (specimen) 01/24/2008 6:31 PM CDT 01/25/2008 7:33 AM CDT us John Power MD POINT OF CARE TESTING Rosetta l Result [facility] [address] [place] [address] * (ABNORMAL) URINALYSIS (01/24/2008 4:54 PM CDT) PH UA 6.5 5.0 - 9.0 [facility] BLOOD UA NEGATIVE NEGATIVE [facility] LEUKOCYTE ESTERASE UA NEGATIVE NEGATIVE [facility] UROBILINOGEN UA 0.2 0.2 [facility] COLOR UA Yellow Straw [facility] PROTEIN UA NEGATIVE NEGATIVE [facility] SPECIFIC GRAVITY UA 1.010 <=1.005 [facility] NITRITE UA NEGATIVE NEGATIVE [facility] BILIRUBIN UA NEGATIVE NEGATIVE [facility] CLARITY UA SL CLOUDY Clear [facility] GLUCOSE UA >=1000 mg/dl(A) NEGATIVE [facility] KETONES UA NEGATIVE NEGATIVE [facility] MICRO EXAM Yes(A) No [facility] Urine specimen (specimen) 01/24/2008 4:54 PM CDT 01/24/2008 4:54 PM CDT John Power MD URINE ORDERABLES Final Res ult Performing Organization Address [facility] de Phone Number [facility] [address] [place] [address] * (ABNORMAL) URINALYSIS MICROSCOPY ONLY (01/24/2008 4:54 PM CDT) RBC UA None Seen 0 - 2 [facility] HYALINE CAST None Seen 0 - [address] [facility] BACTERIA UA Few(A) None Seen [facility] WBC URINE 0-2 0 - 2 [facility] Urine specimen (specimen) 01/24/2008 4:54 PM CDT 01/24/2008 4:54 PM CDT John Power MD URINE ORDERABLES Final Res ult Performing Organization Address [facility] de Phone Number [facility] [address] [place] [address] * CT HEAD WO CONTRAST (01/24/2008 2:43 [...] CDT) TSH 2.930 0.350 - 5.500 uIU/ml [facility] Blood specimen (specimen) 01/24/2008 2:06 PM CDT 01/24/2008 2:55 PM CDT us John Power MD CHEMISTRY ORDERABLES Final Result [facility] [address] [place] [address] * T4 FREE (01/24/2008 2:06 PM CDT) [facility] T4 FREE 0.90 0.89 - 1.76 ng/dL [facility] Blood specimen (specimen) 01/24/2008 2:06 PM CDT 01/24/2008 2:55 PM CDT John Power MD CHEMISTRY ORDERABLES Final Result Performing Organization Address [facility] de Phone Number [facility] [address] [place] [address] * (ABNORMAL) BASIC METABOLIC PANEL (01/24/2008 2:06 PM CDT) [facility] ANION GAP 11 9 - 20 mEq/L [facility] SODIUM 138 136 - 145 mEq/L [facility] BUN 15 7 - 17 mg/dL [facility] CO2 31 22 - 32 mmol/l [facility] POTASSIUM 4.9 3.5 - 5.0 mEq/L [facility] Comment: Specimen slightly hemolyzed OSMOLALITY, CALCULATED 308(H) 275 - 295 mOsm/Kg [facility] CREATININE 1.3(H) 0.7 - 1.2 mg/dL [facility] CALCIUM 9.4 8.4 - 10.5 mg/dL [facility] GLUCOSE 490(H) 70 - 110 mg/dL [facility] CHLORIDE 101 95 - 110 mEq/L [facility] Blood specimen (specimen) 01/24/2008 2:06 PM CDT 01/24/2008 2:13 PM CDT us Carlos A Henao MD CHEMISTRY ORDERABLES Final Resul t Performing Organization Address [facility] Co de Phone Number [facility] [address] [place] [address] * PT AND APTT (01/24/2008 2:06 PM CDT) PTT 27.0 22.5 - 36.5 Secs [facility] Comment: Therapeutic Range: Hi-level PE/DVT heparin protocol 80.1 -95.0 sec Lo-level PE/DVT heparin protocol 67.1 - 80.0 sec Cardiac Heparin Protocol 67.1 - 85.0 sec Neuro Heparin Protocol 67.1 - 80.0 sec As of 12/08/2007 note change in APTT Normal Range. PROTIME 13.3 12.8 - 15.8 Secs [facility] Comment:As of 2007 not e change in normal range. INR 0.9 [facility] Comment: Expected Values for INR: DVT/PE Goal INR 2.5; range 2.0 - 3.0 Valve Replacement Tissue Goal INR 2.5; range 2.0 - 3.0 Mechanical Goal INR 3.0; range 2.5 - 3.5 POST-ME Goal INR 2.5; range 2.0 - 3.0 or Goal 3.0; range 2.5 - 3.5 Atrial Fibrillation Goal INR 2.5; range 2.0 - 3.0 Ischemic Stroke Goal INR 2.5; range 2.0 - 3.0 For additional information see Guidelines for Anticoagulation available from the pharmacy [facility] [phone] Blood specimen (specimen) 01/24/2008 2:06 PM CDT 01/24/2008 2:13 PM CDT Carlos A Henao MD HEMATOLOGY ORDERABLES Edited [facility] [address] [place] [address] * (ABNORMAL) CBC WITH DIFFERENTIAL (01/24/2008 2:06 PM CDT) Pathologist [facility] MCV 87.5 84.0 - 103.0 Fl [facility] MPV 9.8 8.9 - 12.8 Fl [facility] MONOCYTE ABSOLUTE 0.6 0.1 - 0.6 K/ul [facility] BASOPHILS 0.5 0.0 - 1.0 % [facility] HEMOGLOBIN 15.0 12.0 - 16.0 g/dL [facility] RDW 13.4 11.0 - 14.5 % [facility] MONOCYTES 7.2 2.0 - 10.0 % [facility] WBC 8.6 4.8 - 10.8 K/ul [facility] MCH 27.9 27.0 - 34.0 pg [facility] NEUTROPHIL ABSOLUTE 5.6 2.0 - 8.0 K/ul [facility] NEUTROPHILS 65.0 42.2 - 75.2 % [facility] PERIPHERAL BLOOD SMEAR REVIEW Automated Diff [facility] EOSINOPHIL ABSOLUTE 0.2 0.0 - 0.7 K/ul [facility] HEMATOCRIT 47.1(H) 36.0 - 46.0 % [facility] EOSINOPHILS 2.7 0.0 - 7.0 % [facility] PLATELETS 290 140 - 440 K/ul [facility] RBC 5.38 4.20 - 5.40 Mil/ul [facility] LYMPHOCYTES 24.6 24.0 - 44.0 % [facility] MCHC 31.8 30.0 - 35.0 g/dL [facility] BASOPHILS ABSOLUTE 0.0 0.0 - 0.2 K/ul [facility] LYMPHOCYTE ABSOLUTE 2.1 1.2 - 4.0 K/ul [facility] Blood specimen (specimen) 01/24/2008 2:06 PM CDT 01/24/2008 2:13 PM CDT us Carlos A Henao MD HEMATOLOGY ORDERABLES Final Resu lt [facility] [address] [place] [address] * (ABNORMAL) POC GLUCOSE (01/24/2008 2:01 PM CDT) GLUCOSE POC >500(AA) 60 - 100 mg/dL [facility] COMMENT POC Lab Confirm [facility] Venous blood specimen (specimen) 01/24/2008 2:01 PM CDT 01/26/2008 6:56 AM CDT us John Power MD POINT OF CARE TESTING Rosetta terrazas Result [facility] [address] [place] [address] documented in this encounter Visit Diagnoses Not on filedocumented in this encounter Care Teams Garment Worker Relationship Specialty Start Date End Date Adrienne March DO [address] [facility] [place] [address] PCP - General Family Practice 06/30/10 documented as of this encounter
--- OUTSIDE RECORDS SUMMARY | 2025-06-20 15:27 | XMS_ITS | Encounter Summary ---
Author Organization [facility] Address [address] [place] [address] Care Team Providers Care Customer Sales Advisor Name Role Phone Adrienne March DO Primary Care Provider Encounter Details Date Type Department Care Team (Late st Contact Info) Description 09/06/2007 Outpatient Historical [facility] Gen Spec Surg [address] [place] [address] Ketan Lew MD [address] [place] [address] Social History Tobacco Use Types Packs/Day Years Used Date Smoking Tobacco: Never Assessed Comments Unknown Sex and Gender Information Value Date Recorded Sex Assigned at Not on file Legal Sex Female 3:34 AM LATEX FOAM WORKER Gender Identity Not on file Sexual Orientation Not on file documented as of this encounter Plan of Treatment Not on file documented as of this encounter Visit Diagnoses Not on filedocumented in this encounter Care Teams Customer Sales Advisor Relationship Specialty Start Date End Date Adrienne March DO [address] [place] [phone] PCP - General Family Practice 06/30/10 documented as of this encounter
--- OUTSIDE RECORDS SUMMARY | 2025-06-20 15:27 | XMS_ITS | Encounter Summary ---
Author Organization [facility] Address [address] [place] [address] Care Team Providers Care Rod Drawer Name Role Phone Adrienne March DO Primary Care Provider Encounter Details Date Type Department Care Team (Late st Contact Info) Description 10/24/2007 Outpatient Historical [facility] Medicine- Telephone [address] [place] [address] Gamal Bass, STOCK DEALER [address] [place] [address] Social History Tobacco Use Types Packs/Day Years Used Date Smoking Tobacco: Never Assessed Comments Unknown Sex and Gender Information Value Date Recorded Sex Assigned at Not on file Legal Sex Female 3:34 AM TALENT ACQUISITION MANAGER Gender Identity Not on file Sexual Orientation Not on file documented as of this encounter Plan of Treatment Not on file documented as of this encounter Visit Diagnoses Not on filedocumented in this encounter Care Teams Rod Drawer Relationship Specialty Start Date End Date Adrienne March DO [address] [place] [address] PCP - General Family Practice 06/30/10 documented as of this encounter
--- OUTSIDE RECORDS SUMMARY | 2025-06-20 15:27 | XMS_ITS | Encounter Summary ---
Author Organization [facility] Address [address] [place] [address] Care Team Providers Care Auto Glass Installer Name Role Phone Adrienne March DO Primary Care Provider Encounter Details Date Type Department Care Team (Latest Contact Info) Description 04/19/2007 Outpatient Historical [facility] Gen Spec Surg [address] [place] [address] Ketan Lew MD [address] [place] [address] Ulcer of Lower Limb, Unspecified (CMS/HCC) (Primary Dx); Gangrene (CMS/HCC); Other Postoperative Infection; Follow-Up Examination, Following Unspecified Surgery Social History Tobacco Use Types Packs/Day Years Used Date Smoking Tobacco: Never Assessed Comments Unknown Sex and Gender Information Value Date Recorded Sex Assigned at Not on file Legal Sex Female 3:34 AM TOLL LINE INSPECTOR Gender Identity Not on file Sexual Orientation Not on file documented as of this encounter Plan of Treatment Not on file documented as of this encounter Visit Diagnoses Diagnosis Ulcer of lower limb, unspecified- Primary Gangrene (CMS/HCC) Gangrene Other postoperative infection Follow-up examination, following unspecified surgery documented in this encounter Care Teams Auto Glass Installer Relationship Specialty Start Date End Date Adrienne March DO [address] [place] [address] PCP - General Family Practice 06/30/10 documented as of this encounter
--- OUTSIDE RECORDS SUMMARY | 2025-06-20 15:27 | XMS_ITS | Encounter Summary ---
Author Organization [facility] Address [address] [place] [address] Care Team Providers Care Auto Design Detailer Name Role Phone Adrienne March DO Primary Care Provider Encounter Details Date Type Department Care Team (Latest Contact Info) Description 03/29/2007 Outpatient Historical [facility] Gen Spec Surg [address] [place] [address] Ketan Lew MD [address] [place] [address] Ulcer of Lower Limb, Unspecified (CMS/HCC) (Primary Dx); Gangrene (CMS/HCC); Other Postoperative Infection; Follow-Up Examination, Following Unspecified Surgery Social History Tobacco Use Types Packs/Day Years Used Date Smoking Tobacco: Never Assessed Comments Unknown Sex and Gender Information Value Date Recorded Sex Assigned at Not on file Legal Sex Female 3:34 AM TOOL HARDENER Gender Identity Not on file Sexual Orientation Not on file documented as of this encounter Plan of Treatment Not on file documented as of this encounter Visit Diagnoses Diagnosis Ulcer of lower limb, unspecified- Primary Gangrene (CMS/HCC) Gangrene Other postoperative infection Follow-up examination, following unspecified surgery documented in this encounter Care Teams Auto Design Detailer Relationship Specialty Start Date End Date Adrienne March DO [address] [place] [address] PCP - General Family Practice 06/30/10 documented as of this encounter
--- OUTSIDE RECORDS SUMMARY | 2025-06-20 15:27 | XMS_ITS | Encounter Summary ---
Author Organization [facility] Address [address] [place] [address] Care Team Providers Care Felt Hat Inspector And Packer Name Role Phone Adrienne March DO Primary Care Provider Encounter Details Date Type Department Care Team (Late st Contact Info) Description 09/28/2007 Outpatient Historical [facility] Medicine- [place] [address] [place] [address] Alexei Elizabeth MD [address] [place] [address] Social History Tobacco Use Types Packs/Day Years Used Date Smoking Tobacco: Never Assessed Comments Unknown Sex and Gender Information Value Date Recorded Sex Assigned at Not on file Legal Sex Female 3:34 AM EXECUTIVE KITCHEN MANAGER Gender Identity Not on file Sexual Orientation Not on file documented as of this encounter Plan of Treatment Not on file documented as of this encounter Visit Diagnoses Not on filedocumented in this encounter Care Teams Felt Hat Inspector And Packer Relationship Specialty Start Date End Date Adrienne March DO [address] [place] [address] PCP - General Family Practice 06/30/10 documented as of this encounter
--- OUTSIDE RECORDS SUMMARY | 2025-06-20 15:27 | XMS_ITS | Encounter Summary ---
Author Organization [facility] Address [address] [place] [address] Care Team Providers Care Communication Signals Intelligence Name Role Phone Adrienne March DO Primary Care Provider Encounter Details Date Type Department Care Team (Late st Contact Info) Description 09/29/2007 [facility]patient [facility] [place] [address] [place] [address] Alexei Elizabeth MD [address] [place] [address] Social History Tobacco Use Types Packs/Day Years Used Date Smoking Tobacco: Never Assessed Comments Unknown Sex and Gender Information Value Date Recorded Sex Assigned at Not on file Legal Sex Female 3:34 AM SAS ADMINISTRATOR Gender Identity Not on file Sexual Orientation Not on file documented as of this encounter Plan of Treatment Not on file documented as of this encounter Visit Diagnoses Not on filedocumented in this encounter Care Teams Communication Signals Intelligence Relationship Specialty Start Date End Date Adrienne March DO [address] [place] [address] PCP - General Family Practice 06/30/10 documented as of this encounter
--- OUTSIDE RECORDS SUMMARY | 2025-06-20 15:27 | XMS_ITS | Encounter Summary ---
Author Organization [facility] Address [address] [place] [address] Care Team Providers Care Structural Steel Equipment Erector Name Role Phone Adrienne March DO Primary Care Provider Encounter Details Date Type Department Care Team (Latest Contact Info) Description 06/07/2007 Outpatient Historical [facility] Cardiovascular Services [address] [place] [address] [place] [address] Ketan Lew MD [address] [address] Swelling of Limb (Primary Dx) Social History Tobacco Use Types Packs/Day Years Used Date Smoking Tobacco: Never Assessed Comments Unknown Sex and Gender Information Value Date Recorded Sex Assigned at Not on file Legal Sex Female 3:34 AM STUDENT LIFE COORDINATOR Gender Identity Not on file Sexual Orientation Not on file documented as of this encounter Plan of Treatment Not on file documented as of this encounter Visit Diagnoses Diagnosis Swelling of limb- Primary documented in this encounter Care Teams Structural Steel Equipment Erector Relationship Specialty Start Date End Date Adrienne March DO [address] [place] [phone] PCP - General Family Practice 06/30/10 documented as of this encounter
--- OUTSIDE RECORDS SUMMARY | 2025-06-20 15:27 | XMS_ITS | Encounter Summary ---
Author Organization [facility] Address [address] [place] [address] Care Team Providers Care Medical Anthropology Director Name Role Phone Ardienne March Primary Care Provider [phone] Encounter Details Date Type Department Care Team (Late st Contact Info) Description 11/03/2024 Lab Requisition [facility] General Laboratory Services [place] [address] [place] [phone] Wilsondecember, PRODUCTION FINISHER [address] [place] [address] COVID-19 Social History Tobacco Use [...] on file Legal Sex Female 6:27 AM STRUCTURED CABLING TECHNICIAN Gender Identity Not on file Sexual Orientation Not on file documented as of this encounter Plan of Treatment Upcoming Encounters Date Type Department Care Team (Late st Contact Info) Description 07/25/2025 10:00 AM STRUCTURED CABLING TECHNICIAN Office Visit [facility] [address] [place] [phone] Adrienne March, DO [address] [place] [address] 10/25/2025 1:40 PM STRUCTURED CABLING TECHNICIAN Office Visit [facility] [address] [place] [phone] Adrienne March, DO [address] [place] [address] 04/22/2026 1:20 PM CDT Office Visit [facility] [address] [facility] [address] [place] [address] Cori Ochoa, [facility] [address] [facility] [address] [place] [address] documented as of this encounter Procedures Procedure Name Priority Date/Time Associated Diagnosis Comments CBC WITH DIFFERENTIAL Stat 11/03/2024 12:15 PM STRUCTURED CABLING TECHNICIAN COVID-19 documented in this encounter Results * (ABNORMAL) CBC WITH DIFFERENTIAL (11/03/2024 12:15 PM [facility]) WBC 9.6 4.0 - 10.0 K/uL 11/03/2024 12:24 PM [facility] RBC 3.54(L) 3.93 - 5.22 M/uL 11/03/2024 12:24 PM [facility] HEMOGLOBIN 10.9(L) 11.2 - 15.7 g/dL 11/03/2024 12:24 PM [facility] HEMATOCRIT 33.6(L) 34.1 - 44.9 % 11/03/2024 12:24 PM [facility] MCV 94.9(H) 79.4 - 94.8 fL 11/03/2024 12:24 PM [facility] MCH 30.8 25.6 - 32.2 pg 11/03/2024 12:24 PM [facility] MCHC 32.4 32.2 - 35.5 g/dL 11/03/2024 12:24 PM [facility] RDW 13.8 11.0 - 14.5 % 11/03/2024 12:24 PM [facility] RDW-STDEV 47.8 36.9 - 56.9 fL 11/03/2024 12:24 PM [facility] PLATELETS 256 163 - 337 K/uL 11/03/2024 12:24 PM [facility] MPV 8.2(L) 10.0 - 14.8 fL 11/03/2024 12:24 PM [facility] NEUTROPHILS 60 34 - 71 % 11/03/2024 12:24 PM [facility] LYMPHOCYTES 17(L) 19 - 52 % 11/03/2024 12:24 PM [facility] MONOCYTES 8 5 - 13 % 11/03/2024 12:24 PM [facility] EOSINOPHILS 15(H) 1 - 6 % 11/03/2024 12:24 PM [facility] BASOPHILS 1 0 - 1 % 11/03/2024 12:24 PM [facility] IMMATURE GRANULOCYTES 1 % 11/03/2024 12:24 PM STRUCTURED CABLING TECHNICIAN [facility] NEUTROPHIL ABSOLUTE 5.71 1.56 - 6.13 K/uL 11/03/2024 12:24 PM STRUCTURED CABLING TECHNICIAN [facility] LYMPHOCYTE ABSOLUTE 1.60 1.20 - 3.40 K/uL 11/03/2024 12:24 PM STRUCTURED CABLING TECHNICIAN [facility] MONOCYTE ABSOLUTE 0.72(H) 0.24 - 0.36 K/uL 11/03/2024 12:24 PM [facility] EOSINOPHIL ABSOLUTE 1.46(H) 0.04 - 0.36 K/uL 11/03/2024 12:24 PM [facility] BASOPHILS ABSOLUTE 0.06 0.01 - 0.08 K/uL 11/03/2024 12:24 PM [facility] IMMATURE GRANULOCYTES ABSOLUTE 0.05 K/uL 11/03/2024 12:24 PM [facility] Blood Collection / Unknown 11/03/2024 12:15 PM STRUCTURED CABLING TECHNICIAN 11/03/2024 12:21 PM STRUCTURED CABLING TECHNICIAN December Wilson PRODUCTION FINISHER HEMATOLOGY ORDERABLES Final Resu lt [facility] CLIA # [id number] [address] [place] [address] documented in this encounter Visit Diagnoses Diagnosis COVID-19 documented in this encounter Additional Health Concerns Infection Onset Date Last Indicated Resolved Time COVID-19 10/30/2024 10/30/2024 11/19/2024 1:16 AM STRUCTURED CABLING TECHNICIAN documented as of this encounter Care Teams Medical Anthropology Director Relationship Specialty Start Date End Date Adrienne March DO [address] [place] [address] PCP - General Family Practice 06/30/10 documented as of this encounter
--- OUTSIDE RECORDS SUMMARY | 2025-06-20 15:27 | XMS_ITS | Encounter Summary ---
Author Organization [facility] Address [address] [place] [address] Care Team Providers Care Social And Political Studies Professor Name Role Phone Adrienne March Primary Care Provider [phone] Encounter Details Date Type Department Care Team (Latest Contact Info) Description 01/13/2007 Outpatient Historical [facility] Cardiac School Librarian [address] [place] [phone] López Harry MD NO ADDRESS ON FILE Unspecified Chest Pain (Primary Dx) Social History Tobacco Use Types Packs/Day Years Used Date Smoking Tobacco: Never Assessed Comments Unknown Sex and Gender Information Value Date Recorded Sex Assigned at Not on file Legal Sex Female 3:34 AM HAND BRAILLE TRANSCRIBER Gender Identity Not on file Sexual Orientation [...] Goal INR 3.0; range 2.5 - 3.5 POST-AR Goal INR 2.5; range 2.0 - 3.0 [...] HEMATOLOGY ORDERABLES Edite d Performing Organization Address [facility] Phone Number INTERFACE SYSTEM Refer to clinic/hospital department * C-REACTIVE PROTEIN (01/13/2007 6:04 AM CDT) CRP 0.98 0.00 - 1.00 mg/dL INTERFACE SYSTEM 01/13/2007 6:04 AM CDT us López Harry MD CHEMISTRY ORDERABLES Edited Performing Organization Address [facility] Phone Number INTERFACE SYSTEM [...] documented in this encounter Care Teams Social And Political Studies Professor Relationship Specialty Start Date End Date Adrienne March DO [address] [place] [phone] PCP - General Family Practice 06/30/10 documented as of this encounter
--- OUTSIDE RECORDS SUMMARY | 2025-06-20 15:27 | XMS_ITS | Encounter Summary ---
Author Organization [facility] Address [address] [place] [address] Care Team Providers Care Machine I Coremaker Name Role Phone Adrienne March Primary Care Provider Encounter Details Date Type Department Care Team (Late st Contact Info) Description 11/15/2007 Outpatient Historical [facility] Gen Spec Surg [place] [address] [place] [address] Ketan Lew MD [address] [place] [address] Social History Tobacco Use Types Packs/Day Years Used Date Smoking Tobacco: Never Assessed Comments Unknown Sex and Gender Information Value Date Recorded Sex Assigned at Not on file Legal Sex Female 3:34 AM PARTS INTERPRETER Gender Identity Not on file Sexual Orientation Not on file documented as of this encounter Progress Notes * Ketna Lew - 11/15/2007 12:00 AM CST Patient [...] , A, trina Job #: Document #: [id number] cc: Alexei Dubon D.O. S INTERPRETER documented in this encounter Plan of Treatment Not on file documented as of this encounter Visit Diagnoses Not on filedocumented in this encounter Care Teams Machine I Coremaker Relationship Specialty Start Date End Date Adrienne March DO [address] [place] [address] PCP - General Family Practice 06/30/10 documented as of this encounter
--- OUTSIDE RECORDS SUMMARY | 2025-06-20 15:27 | XMS_ITS | Encounter Summary ---
Author Organization [facility] Address [address] [place] [address] Care Team Providers Care Drivers License Examiner Name Role Phone Adrienne March Primary Care Provider Encounter Details Date Type Department Care Team (Late st Contact Info) Description 02/15/2007 Inpatient Historical [facility] Ketan Lew MD [address] [address] Posttraumatic Wound Infection not Elsewhere Classified (Primary Dx) Social History Tobacco Use Types Packs/Day Years Used Date Smoking Tobacco: Never Assessed Comments Unknown Sex and Gender Information Value Date Recorded Sex Assigned at Not on file 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 Gender Identity Not on file [...] OF CARE TESTING Edited Performing Organization Address [facility] Phone Number INTERFACE SYSTEM Refer to clinic/hospital department * (ABNORMAL) POC GLUCOSE (02/21/2007 6:12 AM CDT) GLUCOSE POC 116(H) 60 - 100 mg/dL INTERFACE SYSTEM 02/21/2007 6:12 AM CDT us Ketan Lew MD POINT OF CARE TESTING Edited Performing Organization Address [facility] Phone Number INTERFACE SYSTEM Refer to clinic/hospital department * (ABNORMAL) POC GLUCOSE (02/20/2007 9:07 PM CDT) GLUCOSE POC 141(H) 60 - 100 mg/dL INTERFACE SYSTEM 02/20/2007 9:07 PM CDT us Ketan Lew MD POINT OF CARE TESTING Edited Performing Organization Address [facility] Phone Number INTERFACE SYSTEM Refer to clinic/hospital department * (ABNORMAL) POC GLUCOSE (02/20/2007 5:32 PM CDT) GLUCOSE POC 102(H) 60 - 100 mg/dL INTERFACE SYSTEM 02/20/2007 5:32 PM CDT us Ketan Lew MD POINT OF CARE TESTING Edited Performing Organization Address [facility] Phone Number INTERFACE SYSTEM Refer to clinic/hospital department * (ABNORMAL) POC GLUCOSE (02/20/2007 11:55 AM CDT) GLUCOSE POC 55(L) 60 - 100 mg/dL INTERFACE SYSTEM 02/20/2007 11:5 5 AM CDT us Ketan Lew MD POINT OF CARE TESTING Edited Performing Organization Address [facility] de Phone Number INTERFACE SYSTEM Refer to clinic/hospital department * (ABNORMAL) POC GLUCOSE (02/20/2007 6:25 AM CDT) GLUCOSE POC 119(H) 60 - 100 mg/dL INTERFACE SYSTEM 02/20/2007 6:25 AM CDT us Ketan Lew MD POINT OF CARE TESTING Edited Performing Organization Address [facility] Phone Number INTERFACE SYSTEM Refer to clinic/hospital department * (ABNORMAL) POC GLUCOSE (02/19/2007 8:48 PM CDT) GLUCOSE POC 115(H) 60 - 100 mg/dL INTERFACE SYSTEM 02/19/2007 8:48 PM CDT us Ketan Lew MD POINT OF CARE TESTING Edited Performing Organization Address [facility] de Phone Number INTERFACE SYSTEM Refer to clinic/hospital department * (ABNORMAL) POC GLUCOSE (02/19/2007 5:23 PM CDT) GLUCOSE POC 108(H) 60 - 100 mg/dL INTERFACE SYSTEM 02/19/2007 5:23 PM CDT us Ketan Lew MD POINT OF CARE TESTING Edited Performing Organization Address [facility] de Phone Number INTERFACE SYSTEM Refer to clinic/hospital department * POC GLUCOSE (02/19/2007 11:35 AM CDT) GLUCOSE POC 75 60 - 100 mg/dL INTERFACE SYSTEM 02/19/2007 11:3 5 AM CDT us Ketan Lew MD POINT OF CARE TESTING Edited Performing Organization Address City/[facility] de Phone Number INTERFACE SYSTEM Refer to clinic/hospital department * (ABNORMAL) POC GLUCOSE (02/19/2007 7:12 AM CDT) GLUCOSE POC 123(H) 60 - 100 mg/dL INTERFACE SYSTEM 02/19/2007 7:12 AM CDT us Ketan Lew MD POINT OF CARE TESTING Edited Performing Organization Address [facility] Phone Number INTERFACE SYSTEM Refer to clinic/hospital department * (ABNORMAL) POC GLUCOSE (02/18/2007 9:23 PM CDT) GLUCOSE POC 158(H) 60 - 100 mg/dL INTERFACE SYSTEM 02/18/2007 9:23 PM CDT us Ketan Lew MD POINT OF CARE TESTING Edited Performing Organization Address [facility] Phone Number INTERFACE SYSTEM Refer to clinic/hospital department * POC GLUCOSE (02/18/2007 5:26 PM CDT) GLUCOSE POC 87 60 - 100 mg/dL INTERFACE SYSTEM 02/18/2007 5:26 PM CDT us Ketan Lew MD POINT OF CARE TESTING Edited Performing Organization Address [facility] Phone Number INTERFACE SYSTEM Refer to clinic/hospital department * POC GLUCOSE (02/18/2007 11:31 AM CDT) GLUCOSE POC 93 60 - 100 mg/dL INTERFACE SYSTEM 02/18/2007 11:3 1 AM CDT us Ketan Lew MD POINT OF CARE TESTING Edited Performing Organization Address City/[facility] de Phone Number INTERFACE SYSTEM Refer to clinic/hospital department * (ABNORMAL) POC GLUCOSE (02/18/2007 6:23 AM CDT) GLUCOSE POC 125(H) 60 - 100 mg/dL INTERFACE SYSTEM 02/18/2007 6:23 AM CDT us Ketan Lew MD POINT OF CARE TESTING Edited Performing Organization Address [facility] de Phone Number INTERFACE SYSTEM Refer to clinic/hospital department * (ABNORMAL) POC GLUCOSE (02/17/2007 8:10 PM CDT) GLUCOSE POC 182(H) 60 - 100 mg/dL INTERFACE SYSTEM 02/17/2007 8:10 PM CDT us Ketan Lew MD POINT OF CARE TESTING Edited Performing Organization Address [facility] de Phone Number INTERFACE SYSTEM Refer to clinic/hospital department * (ABNORMAL) POC GLUCOSE (02/17/2007 4:41 PM CDT) GLUCOSE POC 122(H) 60 - 100 mg/dL INTERFACE SYSTEM 02/17/2007 4:41 PM CDT us Ketan Lew MD POINT OF CARE TESTING Edited Performing Organization Address [facility] de Phone Number INTERFACE SYSTEM Refer to clinic/hospital department * (ABNORMAL) POC GLUCOSE (02/17/2007 11:02 AM CDT) GLUCOSE POC 115(H) 60 - 100 mg/dL INTERFACE SYSTEM 02/17/2007 11:0 2 AM CDT us Ketan Lew MD POINT OF CARE TESTING Edited Performing Organization Address [facility] de Phone Number INTERFACE SYSTEM Refer to clinic/hospital department * (ABNORMAL) POC GLUCOSE (02/17/2007 5:54 AM CDT) GLUCOSE POC 147(H) 60 - 100 mg/dL INTERFACE SYSTEM 02/17/2007 5:54 AM CDT us Ketan Lew MD POINT OF CARE TESTING Edited Performing Organization Address City/[facility] de Phone Number INTERFACE SYSTEM Refer to clinic/hospital department * (ABNORMAL) POC GLUCOSE (02/16/2007 8:30 PM CDT) GLUCOSE POC 121(H) 60 - 100 mg/dL INTERFACE SYSTEM 02/16/2007 8:30 PM CDT us Ketan Lew MD POINT OF CARE TESTING Edited Performing Organization Address [facility] Phone Number INTERFACE SYSTEM Refer to clinic/hospital department * (ABNORMAL) POC GLUCOSE (02/16/2007 11:12 AM CDT) GLUCOSE POC 117(H) 60 - 100 mg/dL INTERFACE SYSTEM 02/16/2007 11:1 2 AM CDT us Ketan Lew MD POINT OF CARE TESTING Edited Performing Organization Address [facility] Phone Number INTERFACE SYSTEM Refer to clinic/hospital department * (ABNORMAL) POC GLUCOSE (02/16/2007 6:26 AM CDT) GLUCOSE POC 128(H) 60 - 100 mg/dL INTERFACE SYSTEM 02/16/2007 6:26 AM CDT us Ketan Lew MD POINT OF CARE TESTING Edited Performing Organization Address [facility] Phone Number INTERFACE SYSTEM Refer [...] Goal INR 3.0; range 2.5 - 3.5 POST-CA Goal INR 2.5; range 2.0 - 3.0 [...] Normal Range. 02/15/2007 6:33 PM CDT Nakul Gallaghre DO HEMATOLOGY ORDERABLES Edit ed INTERFACE SYSTEM [...] HEMATOLOGY ORDERABLES Edit ed Performing Organization Address City/State/[facility] Co de Phone Number INTERFACE SYSTEM Refer to clinic/hospital department documented in this encounter Visit Diagnoses Diagnosis Posttraumatic wound infection not elsewhere classified- Primary documented in this encounter Care Teams Drivers License Examiner Relationship Specialty Start Date End Date Adrienne March DO [address] [place] [phone] PCP - General Family Practice 06/30/10 documented as of this encounter
--- OUTSIDE RECORDS SUMMARY | 2025-06-20 15:27 | XMS_ITS | Encounter Summary ---
Author Organization [facility] Address [address] [place] [address] Care Team Providers Care Biological Technician Name Role Phone Adrienne March DO Primary Care Provider [phone] Encounter Details Date Type Department Care Team (Latest Contact Info) Description 06/07/2007 Outpatient Historical [facility] Gen Spec Surg [place] 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
--- OUTSIDE RECORDS SUMMARY | 2025-06-20 15:27 | XMS_ITS | Encounter Summary ---
Author Organization [facility] Address [address] [place] [address] Care Team Providers Care Rn Office Name Role Phone Adrienne March DO Primary Care Provider [phone] Encounter Details Date Type Department Care Team (Late st Contact Info) Description 09/30/[address] Outpatient [address] 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
--- OUTSIDE RECORDS SUMMARY | 2025-06-20 15:28 | XMS_ITS | Encounter Summary ---
Author Organization [facility] Address [address] [place] [address] Care Team Providers Care Routing Equipment Tender Name Role Phone Adrienne March DO Primary Care Provider Encounter Details Date Type Department Care Team (Latest Contact Info) Description 06/12/2004 Outpatient Historical [facility] [address] [place] [address] Jose Luis Mcmillan MD [address] [place] [address] JOINT PAIN-SHLDER (Primary Dx) Social History Tobacco Use Types Packs/Day Years Used Date Smoking Tobacco: Never Assessed Comments Unknown Sex and Gender Information Value Date Recorded Sex Assigned at Not on file 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
--- OUTSIDE RECORDS SUMMARY | 2025-06-20 15:28 | XMS_ITS | Encounter Summary ---
Author Organization [facility] Address [address] [place] [address] Care Team Providers Care Chrome Plater Helper Name Role Phone Adrienne March DO Primary Care Provider [phone] Encounter Details Date Type Department Care Team (Latest Contact Info) Description 07/14/2000 Outpatient Historical [facility] Cardiology- [place] [address] [place] [address] Lukas Degroot MD NO ADDRESS ON FILE Precordial pain (Primary Dx); Palpitations Social History Tobacco Use Types Packs/Day Years Used Date Smoking Tobacco: Never Assessed Comments Unknown Sex and Gender Information Value Date Recorded Sex Assigned at Not on file 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
--- OUTSIDE RECORDS SUMMARY | 2025-06-20 15:28 | XMS_ITS | Encounter Summary ---
Author Organization [facility] Address [address] [place] [address] Care Team Providers Care Advertising Representative Name Role Phone Adrienne March DO Primary Care Provider [phone]- [phone] Encounter Details Date Type Department Care Team (Latest Contact Info) Description 07/14/2000 Outpatient Historical [facility] [address] [phone] Lesly Jones MD NO ADDRESS ON FILE Other screening mammogram (Primary Dx) Social History Tobacco Use Types Packs/Day Years Used Date Smoking Tobacco: Never Assessed Comments Unknown Sex and Gender Information Value Date Recorded Sex Assigned at Not on file 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
--- OUTSIDE RECORDS SUMMARY | 2025-06-20 15:28 | XMS_ITS | Encounter Summary ---
Author Organization [facility] Address [address] [place] [address] Care Team Providers Care Roll Scale Worker Name Role Phone Adrienne March DO Primary Care Provider Encounter Details Date Type Department Care Team (Latest Contact Info) Description 11/27/2003 Outpatient Historical [facility] [address] [place] [address] Jose Luis Mcmillan MD [address] [place] [address] CERVICALGIA (Primary Dx); Cervical spondylosis Social History Tobacco Use Types Packs/Day Years Used Date Smoking Tobacco: Never Assessed Comments Unknown Sex and Gender Information Value Date Recorded Sex Assigned at Not on file 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
--- OUTSIDE RECORDS SUMMARY | 2025-06-20 15:28 | XMS_ITS | Encounter Summary ---
Author Organization [facility] Address [address] 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
--- OUTSIDE RECORDS SUMMARY | 2025-06-20 15:28 | XMS_ITS | Encounter Summary ---
Author Organization [facility] Address [address] [place] [address] Care Team Providers Care Customer Contact Representative Name Role Phone Adrienne March DO Primary Care Provider Encounter Details Date Type Department Care Team (Latest Contact Info) Description 01/27/2001 Outpatient [facility] Podiatry[facility] [place] [address] [place] [address] Abel Hurtado, MAR[place] NO ADDRESS ON FILE Calcaneal spur (Primary Dx); Tenosynovitis of foot and ankle; Cellulitis and abscess of foot, except toes; Pain in limb Social History Tobacco Use Types Packs/Day Years Used Date Smoking Tobacco: Never Assessed Comments Unknown Sex and Gender Information Value Date Recorded Sex Assigned at Not on file 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
--- OUTSIDE RECORDS SUMMARY | 2025-06-20 15:28 | XMS_ITS | Encounter Summary ---
Author Organization [facility] Address [address] [place] [address] Care Team Providers Care Soda Maker Name Role Phone Adrienne March DO Primary Care Provider [phone] Encounter Details Date Type Department Care Team (Latest Contact Info) Description 05/27/2004 Outpatient [facility] [address] [place] [address] [place] [address] [address] Jose Luis Mcmillan MD [address] [place] [address] JOINT PAIN-SHLDER (Primary Dx) Social History Tobacco Use Types Packs/Day Years Used Date Smoking Tobacco: Never Assessed Comments Unknown Sex and Gender Information Value Date Recorded Sex Assigned at Not on file 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
--- OUTSIDE RECORDS SUMMARY | 2025-06-20 15:28 | XMS_ITS | Encounter Summary ---
Author Organization [facility] Address [address] [place] [address] Care Team Providers Care Shot Fireman Name Role Phone Adrienne March DO Primary Care Provider Encounter Details Date Type Department Care Team (Latest Contact Info) Description 08/11/2004 Outpatient Historical [facility] [address] [place] [address] Leanne Smith DO [address] [place] [phone] JOINT PAIN-ANKLE (Primary Dx) Social History Tobacco Use Types Packs/Day Years Used Date Smoking Tobacco: Never Assessed Comments Unknown Sex and Gender Information Value Date Recorded Sex Assigned at Not on file 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
--- OUTSIDE RECORDS SUMMARY | 2025-06-20 15:28 | XMS_ITS | Encounter Summary ---
Author Organization [facility] Address [address] 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
--- OUTSIDE RECORDS SUMMARY | 2025-06-20 15:28 | XMS_ITS | Encounter Summary ---
Author Organization [facility] Address [address] [place] [address] Care Team Providers Care Dry Kiln Operator Helper Name Role Phone Adrienne March DO Primary Care Provider +1- [phone] Encounter Details Date Type Department Care Team (Latest Contact Info) Description 04/04/2001 Outpatient [facility] Podiatry[facility] [place] [address] [place] [phone] Abel Hurtado, DPM NO ADDRESS ON FILE Calcaneal spur (Primary Dx) Social History Tobacco Use Types Packs/Day Years Used Date Smoking Tobacco: Never Assessed Comments Unknown Sex and Gender Information Value Date Recorded Sex Assigned at Not on file Legal Sex Female 3:34 AM ACTUARIAL INTERN Gender Identity Not on file Sexual Orientation Not on file documented as of this encounter Plan of Treatment Not on file documented as of this encounter Visit Diagnoses Diagnosis Calcaneal spur- Primary documented in this encounter Care Teams Dry Kiln Operator Helper Relationship Specialty Start Date End Date Adrienne March DO [address] [place] [address] PCP - General Family Practice 06/30/10 documented as of this encounter
--- OUTSIDE RECORDS SUMMARY | 2025-06-20 15:28 | XMS_ITS | Encounter Summary ---
Author Organization [facility] Address [address] [place] [address] Care Team Providers Care Supervisor Jewelry Department Name Role Phone Adrienne March DO Primary Care Provider Encounter Details Date Type Department Care Team (Late st Contact Info) Description 05/12/1999 Outpatient Historical [facility] Neurology [address], [address] [place] [phone] Lukas Vang MD [address] [place] [id number] Pain in limb (Primary Dx) Social History Tobacco Use Types Packs/Day Years Used Date Smoking Tobacco: Never Assessed Comments Unknown Sex and Gender Information Value Date Recorded Sex Assigned at Not on file 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
--- OUTSIDE RECORDS SUMMARY | 2025-06-20 15:28 | XMS_ITS | Encounter Summary ---
Author Organization [facility] Address [address] [place] [address] Care Team Providers Care Adjusto Writer Operator Name Role Phone Adrienne March DO Primary Care Provider +1- [phone] Encounter Details Date Type Department Care Team (Latest Contact Info) Description 05/09/1999 Outpatient Historical [facility] [address] [phone] Jaime Barba MD NO ADDRESS ON FILE Other screening mammogram (Primary Dx) Social History Tobacco Use Types Packs/Day Years Used Date Smoking Tobacco: Never Assessed Comments Unknown Sex and Gender Information Value Date Recorded Sex Assigned at Not on file 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
--- OUTSIDE RECORDS SUMMARY | 2025-06-20 15:28 | XMS_ITS | Encounter Summary ---
Author Organization [facility] Address [address] [place] [address] Care Team Providers Care Relaster Name Role Phone Adrienne March DO Primary Care Provider Encounter Details Date Type Department Care Team (Latest Contact Info) Description 06/12/2004 Outpatient [facility] [address] [place] [address] [address] Jose Luis Mcmillan MD [address] [place] [address] JOINT PAIN-SHLDER (Primary Dx) Social History Tobacco Use Types Packs/Day Years Used Date Smoking Tobacco: Never Assessed Comments Unknown Sex and Gender Information Value Date Recorded Sex Assigned at Not on file 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
--- OUTSIDE RECORDS SUMMARY | 2025-06-20 15:28 | XMS_ITS | Encounter Summary ---
Author Organization [facility] Address [address] 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
--- OUTSIDE RECORDS SUMMARY | 2025-06-20 15:28 | XMS_ITS | Encounter Summary ---
Author Organization [facility] Address [address] 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
--- OUTSIDE RECORDS SUMMARY | 2025-06-20 15:28 | XMS_ITS | Encounter Summary ---
Author Organization [facility] Address [address] [place] [address] Care Team Providers Care Machine Installer Name Role Phone Adrienne March DO Primary Care Provider +1- [phone] Encounter Details Date Type Department Care Team (Latest Contact Info) Description 01/06/2005 Outpatient Historical [facility] [place] [address] [place] [phone] Abel Hurtado, DPM NO ADDRESS ON FILE CALCANEAL SPUR (Primary Dx) Social History Tobacco Use Types Packs/Day Years Used Date Smoking Tobacco: Never Assessed Comments Unknown Sex and Gender Information Value Date Recorded Sex Assigned at Not on file 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
--- OUTSIDE RECORDS SUMMARY | 2025-06-20 15:28 | XMS_ITS | Encounter Summary ---
Author Organization [facility] Address [address] [place] [address] Care Team Providers Care Curing Room Supervisor Name Role Phone Adrienne March DO Primary Care Provider Encounter Details Date Type Department Care Team (Latest Contact Info) Description 07/29/2004 Outpatient [facility] Podiat[facility] [place] [address] [place] [address] Abel Hurtado DPM NO ADDRESS ON FILE ACUTE OSTEOMYELITIS-ANKLE ([facility]) (Primary Dx); FX ANKLE NOS-CLOSED; Plantar fibromatosis; DIFFICULTY IN WALKING Social History Tobacco Use Types Packs/Day Years Used Date Smoking Tobacco: Never Assessed Comments Unknown Sex and Gender Information Value Date Recorded Sex Assigned at Not on file 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
--- OUTSIDE RECORDS SUMMARY | 2025-06-20 15:28 | XMS_ITS | Encounter Summary ---
Author Organization [facility] Address [address] [place] [address] Care Team Providers Care Enamel Cracker Name Role Phone Adrienne March DO Primary Care Provider Encounter Details Date Type Department Care Team (Latest Contact Info) Description 02/02/2005 Outpatient Historical [facility] [address] [place] [address] AMBULANCE, 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
--- OUTSIDE RECORDS SUMMARY | 2025-06-20 15:28 | XMS_ITS | Encounter Summary ---
Author Organization [facility] Address [address] [place] [address] Care Team Providers Care Nutrition Services Assistant Name Role Phone Adrienne March DO Primary Care Provider Encounter Details Date Type Department Care Team (Latest Contact Info) Description 12/31/1999 Outpatient Historical [facility] Umang Urrutia MD [address] [place] [address] Hypopotassemia (Primary Dx); Unspecified essential hypertension; Hyperosmolality; Encounter for long-term (current) use of other medications Social History Tobacco Use Types Packs/Day Years Used Date Smoking Tobacco: Never Assessed Comments Unknown Sex and Gender Information Value Date Recorded Sex Assigned at Not on file 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
--- OUTSIDE RECORDS SUMMARY | 2025-06-20 15:28 | XMS_ITS | Clinical Summary ---
Author Organization [facility] Address [address] [place] [address] Care Team Providers Care Insurance Law Specialist Name Role Phone Adrienne March Primary Care [...] daily. Active fluticasone propionate (FLONASE) 50 mcg/spray Bradley, Suspension nasal inhalerIndicati ons:Sinus congestion Administer 1 Bradley in each nostril 2 times daily. shake before using 48 mL 023 Active lancets (OneTouch Delica Plus Lancet) 33 gaugeIndication s:Type 2 diabetes mellitus without complication, without long-term current use of insulin USE TO TEST BLOOD SUGAR TWICE DAILY AND NEEDED. 200 Each 7 023 Active Spiriva Respimat 2.5 mcg/actuation MistIndications :Chronic respiratory failure with hypoxia and hypercapnia,Dec reased lung sounds Inhale TWO puffs BY MOUTH DAILY 4 Gram 3 023 Active dapagliflozin propanediol (FARXIGA) 5 mg TabletIndicatio ns:Type 2 diabetes mellitus with diabetic polyneuropathy, unspecified whether termite inspector insulin use,Frail elderly,History of CVA (cerebrovascula r accident) without residual deficits Take 1 Tablet (5 mg) by mouth daily. 100 Tablet 3 024 Active cetirizine (ZyrTEC) 10 mg tabletIndicatio ns:Viral upper respiratory infection take 1 tablet by mouth daily 100 Tablet 3 024 Active flash glucose scanning reader (FreeStyle Ailin 2 Gaylord) MiscIndications :Type 2 diabetes mellitus without complication, without long-term current use of insulin Use to monitor glucose continuously. 1 Each 024 Active portable oxygenIndicatio ns:Chronic respiratory failure with hypoxia and hypercapnia,Chr onic obstructive pulmonary disease, unspecified COPD type (CMS/HCC),Cor pulmonale (CMS/HCC) Portable oxygen concentrator Face to Face completed within 30 days: yes Length of Need: 99 months By: Nasal Cannula Continuously at 2 L/min. 1 Each 024 Active naloxone (NARCAN) 4 mg/spray Bradley, Non-Aerosol EMERGENCY USE ONLY: Administer 1 spray (4 mg) in one nostril one time. May repeat in alternating nostrils every 2-3 min until responsive or EMS arrives. 2 Each 3 024 Active flash glucose sensor (FreeStyle Ailin 2 Sensor) KitIndications: Type 2 diabetes mellitus without complication, without long-term current use of insulin Use to monitor glucose continuously. Replace sensor every 14 days. 6 Kit 3 024 Active atorvastatin (LIPITOR) 40 mg tablet Take 1 Tablet by mouth daily. 024 Active mupirocin (BACTROBAN) 2 % OintmentIndicat ions:Laceration without foreign body, left lower leg, initial encounter Apply to affected area daily. 15 Gram 024 Active polyethylene glycol 3350 (Miralax) 17 gram/dose PowderIndicatio ns:Other constipation Take 1 Scoop (17 Grams) by mouth daily. Dissolve in 8 ounces of fluid and drink entire liquid 527 Gram 025 Active dulaglutide (TRULICITY) 3 mg/0.5 mL injectionIndica tions:Type 2 diabetes mellitus with diabetic polyneuropathy, with long-term current use of insulin Inject 0.5 mL (3 mg) by subcutaneous injection every 7 days. 6 mL 3 025 Active Safety Lancets 28 gauge TEST 1 TIME DAILY 100 Each Active alcohol Pads, Medicated TEST 1 TIME DAILY 100 Each Active OneTouch Ultra Test Strip TEST 1 TIME DAILY 100 Each Active promethazine-de xtromethorphan (PHENERGAN-DM) 6.25-15 mg/5 mL syrupIndication s:Other cough Take 5 mL by mouth every 4 hours as needed for Cough. 120 mL 1 Active potassium CHLORIDE (K-DUR,KLOR-CON M20) 20 mEq Extended Release tablet take 1 tablet by mouth once daily 100 Tablet 3 Active phenytoin sodium (DILANTIN) 100 mg extended release capsule TAKE 3 CAPSULES BY MOUTH TWICE DAILY. 540 Capsule Active metoprolol succinate (TOPROL XL) 25 mg Extended Release 24 hour tablet TAKE THREE TABLETS BY MOUTH EVERY 12 hours 540 Tablet Active ondansetron (ZOFRAN ODT) 4 mg Tablet, Rapid DissolveIndicat ions:Nausea and vomiting, unspecified vomiting type Take 1 Tablet (4 mg) by mouth every 8 hours as needed for Nausea/Emesis. Dissolve tablet on top of tongue, then swallow with saliva. 30 Tablet Active albuterol sulfate HFA 90 mcg/actuation aerosol inhalerIndicati ons:Chronic respiratory failure with hypoxia and hypercapnia,Dec reased lung sounds Inhale TWO puffs BY MOUTH EVERY SIX hours NEEDED FOR SHORTNESS OF BREATH OR wheezing. 8.5 Gram Active famotidine (PEPCID) 20 mg tabletIndicatio ns:Gastroesopha geal reflux disease without esophagitis Take 1 Tablet (20 mg) by mouth 2 times daily. 60 Tablet 025 Active azelastine (ASTELIN) 137 mcg/actuation nasal sprayIndication s:Post-nasal drip ADMINISTER TWO SPRAYS IN EACH NOSTRIL TWICE DAILY 30 mL 025 Active levothyroxine 137 mcg tabletIndicatio ns:Hypothyroidi sm due to acquired atrophy of thyroid Take 1 Tablet (137 mcg) by mouth daily in the morning. 90 Tablet 4 025 Active esomeprazole (NexIUM) 20 mg Capsule, Delayed Release(E.C.) take 1 capsule by mouth daily before breakfast 025 Active metFORMIN (GLUCOPHAGE) 500 mg tabletIndicatio ns:Type 2 diabetes mellitus with diabetic polyneuropathy, with long-term current use of insulin TAKE ONE TABLET BY MOUTH TWICE DAILY. 180 Tablet 3 025 Active apixaban (Eliquis) 5 mg tablet TAKE ONE TABLET BY MOUTH TWICE DAILY. 60 Tablet 11 025 Active traZODone (DESYREL) 50 mg tablet Take 1 Tablet (50 mg) by mouth daily at bedtime. 30 Tablet 2 025 Active desvenlafaxine (PRISTIQ) 50 mg Extended Release 24 hour tablet TAKE ONE TABLET BY MOUTH DAILY with breakfast. 100 Tablet 3 025 Active oxyCODONE-aceta minophen (PERCOCET) 10-325 mg TabletIndicatio ns:Degenerative spondylolisthes is,DDD (degenerative disc disease), lumbar Take 1 Tablet by mouth every 4 hours as needed for Pain, Severe. Max Daily Amount: 6 Tablets 50 Tablet 025 Active Blood-Glucose Transmitter (Dexcom G6 Transmitter) DeviceIndicatio ns:Type 2 diabetes mellitus with diabetic polyneuropathy, with long-term current use of insulin Fasten on top of the sensor to wirelessly send data to the barbering teacher. Must be changed every 3 months. 1 Each 3 025 Active Blood-Glucose Meter,Continuou s (Dexcom G6 Roll Scale Man)Indica tions:Type 2 diabetes mellitus with stage 3b chronic kidney disease, without long-term current use of insulin Use to monitor blood glucose continuously throughout the day. 1 Each 025 Active Blood-Glucose Sensor (Dexcom G6 Sensor) DeviceIndicatio ns:Type 2 diabetes mellitus with stage 3b chronic kidney disease, without long-term current use of insulin Discreetly worn under clothing to measure glucose levels just underneath the skin. Must change sensor every 10 days. 1 Each 12 025 Active ergocalciferol (VITAMIN D2) 50,000 unit capsule TAKE 1 CAPSULE BY MOUTH EVERY 21 DAYS 6 Capsule 025 Active bumetanide (BUMEX) 2 mg tabletIndicatio ns:Fluid retention TAKE ONE TO TWO TABLETS BY MOUTH DAILY 90 Tablet 1 025 Active lactulose (ENULOSE) 10 gram/15 mL oral solutionIndicat ions:Constipati on, unspecified constipation type Take 30 mL by mouth daily. 473 mL 1 Active bumetanide (BUMEX) 2 mg tabletIndicatio ns:Fluid retention Take 1 to 2 tablets daily. 90 Tablet 1 025 2024 Discontinued oxyCODONE-aceta minophen (PERCOCET) 10-325 mg TabletIndicatio ns:Degenerative spondylolisthes is,DDD (degenerative disc disease), lumbar Take 1 Tablet by mouth every 4 hours as needed for Pain, Severe. Max Daily Amount: 6 Tablets 50 Tablet 025 2024 Discontinued ergocalciferol (VITAMIN D2) 50,000 unit capsule Take 1 Capsule (50,000 Units) by mouth every 21 days. *NEEDS LABS* 1 Capsule 025 2024 Discontinued nitrofurantoin (MACROBID) 100 mg capsule Take 1 Capsule (100 mg) by mouth 2 times daily for 7 days. 14 Capsule 025 2024 Blood-Glucose Sensor (Omazecom G7 Sensor) DeviceIndicatio ns:Type 2 diabetes mellitus with diabetic polyneuropathy, with long-term current use of insulin Use to monitor glucose continuously. Replace sensor every 10 days. 9 Each 3 025 2024 Discontinued(A lternate therapy prescribed) nitrofurantoin (MACROBID) 100 mg capsule Take 1 Capsule (100 mg) by mouth 2 times daily for 7 days. 14 Capsule 025 2024 Discontinued ciprofloxacin HCl (CIPRO) 500 mg tabletIndicatio ns:Infective urethritis Take 1 Tablet (500 mg) by mouth 2 times daily for 7 days. 14 Tablet 025 2024 Active Problems Problem Noted Date Diagnosed Date Abdominal lymphadenopathy 07/27/2024 Paroxysmal atrial fibrillation 07/22/2024 Recurrent UTI 07/19/2024 Longstanding persistent atrial fibrillation 06/22 History of [...] 07/20/2024 07/27/2024 DERIC (acute kidney injury) 07/20/2024 Severe sepsis without septic shock 07/19/2024 07/27/2024 [...] Encounters Date Type Department Care Team Description 06/18/2025 3:40 PM CDT Office Visit [facility] [address] [place] [address] December, MANAGER VALIDATION Constipation, unspecified constipation type (Primary Dx) 06/18/2025 Nurse Triage [facility] [address] [place] [address] Adrienne March DO 06/12/2025 Refill [facility] [address] [place] [address] December, MANAGER VALIDATION Fluid retention 06/11/2025 Results Follow-Up [address] [phone] Whit Kim, MIYA POC URINALYSIS DIPSTICK AUTOMATED, URINE CULTURE 06/11/2025 Orders Only [address] [phone] Whit Kim, MANAGER VALIDATION Infective urethritis (Primary Dx) 06/07/2025 1:20 PM CDT Office Visit [facility] [address] [facility] [address] [place] [phone] Kim Whit Vandana, MANAGER VALIDATION Urinary pain (Primary Dx); Chronic insomnia 05/24/2025 Refill [facility] [address] [place] [address] Adrienne March, 05/24/2025 Orders Only [facility] [address] [place] [address] Adrienne March, Type 2 diabetes mellitus with stage 3b chronic kidney disease, without long-term current use of insulin ([facility]) (Primary Dx) 05/23/2025 Telephone [facility] [address] [place] [address] Adrienne March, Medication Problem 05/22/2025 Results Follow-Up [facility] [address] [facility] [address] [place] [phone] Cori Ochoa, MANAGER VALIDATION ECHO COMPLETE - CONTRAST AND STRAIN IF INDICATED 05/22/2025 Refill [facility] [address] [place] [address] Adrienne March DO Degenerative spondylolisthesis; DDD (degenerative disc disease), lumbar 05/19/2025 Refill [facility] [address] [place] [address] Adrienne March, 05/18/2025 Orders Only [facility] [address] [place] [phone] Adrienne March, 05/16/2025 Results Follow-Up [facility] [address] [place] [address] Adrienne March DO POC URINALYSIS DIPSTICK NON AUTOMATED, CBC WITH DIFFERENTIAL, COMPREHENSIVE METABOLIC PANEL, Additional followed-up results: 3 05/16/2025 Refill [facility] [address] [place] [address] Adrienne March DO 05/16/2025 External Device Data STL ABSTRACTION Provider, Abstract 05/16/2025 Orders Only [facility] [address] [place] [address] Adrienne March DO Chronic anemia (Primary Dx) 05/15/2025 8:40 AM CDT Office Visit [facility] [place] [address] [place] [address] Adrienne March DO Type 2 diabetes mellitus with diabetic polyneuropathy, with long-term current use of insulin ([facility]) (Primary Dx); Degenerative spondylolisthesis; DDD (degenerative disc disease), lumbar; Type 2 diabetes mellitus with stage 3b chronic kidney disease, without long-term current use of insulin ([facility]); Essential hypertension; Mixed hyperlipidemia; Morbid obesity with body mass index of 40.0-49.9 ([facility]); Recurrent UTI; Panlobular emphysema ([facility]); Paroxysmal atrial fibrillation ([facility]); Chronic respiratory failure with hypoxia and hypercapnia ([facility]); Hypothyroidism due to acquired atrophy of thyroid; Multinodular goiter; Recurrent major depressive disorder, in full remission; Frail elderly; Gastroesophageal reflux disease without esophagitis; Moderate to severe aortic stenosis; History of CVA (cerebrovascular accident) without residual deficits; History of seizure disorder 05/08/2025 Refill [facility] [address] [facility] [address] [place] [phone] Iris Patel, 05/08/2025 Refill [facility] [address] [place] [address] Adrienne March DO 05/07/2025 8:29 AM CDT - 05/07/2025 11:59 PM CDT Hospital Encounter [facility] Ultrasound [place] [address] [place] [phone] Cori Ochoa, MANAGER VALIDATION Discharge Disposition: Home or Self Care 04/19/2025 Refill [facility] [address] [place] [address] Adrienne March, Degenerative spondylolisthesis; DDD (degenerative disc disease), lumbar 04/13/2025 Refill [facility] [address] [place] [phone] Wilsondecember, MANAGER VALIDATION Type 2 diabetes mellitus with diabetic polyneuropathy, with long-term current use of insulin (CMS/HCC) 04/09/2025 1:00 PM CDT Office Visit [facility] [address] [facility] [address] [place] [address] Cori Ochoa, MANAGER VALIDATION Persistent atrial fibrillation (CMS/HCC) (Primary Dx); Chronic heart failure with preserved ejection fraction (CMS/HCC); Nonrheumatic aortic valve stenosis; Primary hypertension; Mixed hyperlipidemia 04/09/2025 Telephone [place] [id number] [facility] [address] [place] [phone] Iris Patel DO return call to schedule appt 04/08/2025 Results Follow-Up [facility] [address] [place] [phone] Adrienne March DO TSH 04/08/2025 Orders Only [facility] [address] [place] [address] Adrienne March DO Hypothyroidism due to acquired atrophy of thyroid 04/06/2025 12:30 PM CDT Clinical Support [facility] [address] [place] [address] Hypothyroidism due to acquired atrophy of thyroid (Primary Dx) 04/06/2025 Refill [facility] [address] [place] [address] December, MANAGER VALIDATION Hypothyroidism due to acquired atrophy of thyroid; Post-nasal drip 04/06/2025 Refill [facility] [address] [facility] [address] [place] [phone] Iris Patel, DO 04/06/2025 Refill [facility] [address] [place] [address] Adrienne March, DO 03/30/2025 Results Follow-Up [place] [address] [place] [address] December, MANAGER VALIDATION COMPREHENSIVE METABOLIC PANEL, HEMOGLOBIN A1C, CBC WITH DIFFERENTIAL 03/29/2025 10:40 AM CDT Office Visit [facility] [address] [place] [address] December, MANAGER VALIDATION Type 2 diabetes mellitus with stage 3b chronic kidney disease, without long-term current use of insulin ([facility]) (Primary Dx); Gastroesophageal reflux disease without esophagitis; Fluid retention 03/28/2025 Orders Only [facility] [address] [place] [address] Provider, Abstract 03/28/2025 Abstract [facility] [place] [address] [place] [address] Adrienne March, DO 03/27/2025 External Device Data STL ABSTRACTION Provider, Abstract 03/26/2025 Telephone [facility] [address] [place] [address] Nalini Jones, MANAGER VALIDATION [facility] Feather Washer 03/26/2025 Orders Only [facility] [address] [facility] [place] [address] Provider, Abstract 03/26/2025 Refill [facility] [address] [place] [phone] Adrienne March, Chronic respiratory failure with hypoxia and hypercapnia (CMS/HCC); Decreased lung sounds 03/22/2025 2:00 PM CDT Office Visit [facility] [address] [place] [phone] Wilson, December, MANAGER VALIDATION Hypersomnia (Primary Dx); Snoring; Fluid retention 03/22/2025 Results Follow-Up [facility] [address] [place] [phone] Wilson, December, MANAGER VALIDATION POC URINALYSIS DIPSTICK AUTOMATED, URINE CULTURE, LIPASE, Additional followed-up results: 2 03/22/2025 Orders Only [facility] [address] [place] [phone] Wilson, December, MANAGER VALIDATION Acute cystitis without hematuria (Primary Dx) 03/21/2025 Telephone [facility] [address] [place] [phone] Adrienne March, Medication Refill from Last 3 Months Immunizations Immunization Administration [...] on file Legal Sex Female 6:27 AM SEO COORDINATOR Gender Identity Not on file Sexual [...] Mass Index 40.6 06/18/2025 3:41 PM CDT Plan of Treatment Upcoming Encounters Date Type Department Care Team (Late st Contact Info) Description 07/25/2025 10:00 AM SEO COORDINATOR Office Visit [facility] [address] [place] [phone] Adrienne March, DO [address] [place] [phone] 10/25/2025 1:40 PM SEO COORDINATOR Office Visit [facility] [address] [place] [phone] Adrienne March, DO [address] [place] [phone] 04/22/2026 1:20 PM CDT Office Visit [facility] [address] [facility] [address] [place] [address] Cori Ochoa, [facility] [address] [facility] [address] [place] [address] Health Maintenance Due Date Last Done Comments ZOSTER VACCINE (1 of 2) 1997 OSTEOPOROSIS SCREENING 07/31/2020 5, 07/30/2015, 07/30/2015, Additional history exists RSV VACCINE (60+ or ) (1 - 1-dose 75+ series) 2022 Medicare [place] ([place]) Preventative Visit/Annual Wellness Visit 09/20/2024 05/05/2024, 04/26/2023, 12/29/2021 LDL CHOLESTEROL ANNUAL 03/17/2025 4, 12/09/2023, 08/25/2023, Additional history exists DIABETES ANNUAL RETINAL EXAM 03/30/202507/2024, 06/04/2020, 06/04/2020, Additional history exists INFLUENZA VACCINE (#1) 2025 4, 08/25/2023, 08/06/2022, Additional history exists COVID-19 Vaccine (2 - 2024-2 6 season) 2025 01/29/2021 DIABETES ANNUAL FOOT EXAM 06/05/20252023, 03/30/2023, 12/29/2021, Additional history exists DIABETES HBA1C Q 6 MONTHS 09/29/20252024, 10/05/2024, 03/17/2024, Additional history exists DIABETES MICROALBUMIN ANNUAL SCREEN 10/23/2025 10/23/2024, 12/09/2023, 08/25/2023, Additional history exists DTAP/TDAP/TD VACCINES (4 - T d or Tdap) 09/14/2034 09/14/2024, 06/12/2016, 07/22/2015, Additional history exists PNEUMOCOCCAL VACCINE 50+ YEARS Completed 0 01/11/2017, 01/11/2017, 10/24/2014, Additional history exists FIT-DNA Q 3 years Discontinued 05/17/2019 Colorectal Cancer Screening Discontinued FIT/FOBT Q 1 year Discontinued 03/31/2023, 08/01/2015 KHE uACR (Auto Order) Completed 10/23/2024 , 12/09/2023, 08/25/2023, Additional history exists KHE eGFR (Auto Order) Completed 05/15/2025 , 03/29/2025, 03/25/2025, Additional history exists COLORECTAL SCREENING Discontinued Flex Sig/CT Colonography Q 5 years Discontinued Medical Devices Implanted Type Area Paperhanger Apprentice Device Identifier Shelf Expiration Date Model / Serial / Lot Cement Simplex Hvisc 6194-1-010 - [id number] Implanted:01/2020 by Marco A Lewis MD (Quantity not on file) Cement Left: Knee JAMSHID- [employer]MEDICA INT INC [id number] 03/19/2021 6194-1-010 / / [id number] Cement Simplex Hvisc 6194-1-010 - [id number] Implanted:01/2020 by Marco A Lewis MD (Quantity not on file) Cement Left: Knee JAMSHID- HOWMEDICA INT INC [id number] 03/19/2021 6194-1-010 / / [id number] Hemostatic Surgifoam 1gm 1977 - [id number] Implanted:Qty : 1 on 06/21/2020 by Jan Hoffman MD Hemostatic N/A: Back J&J- [employer] INC [id number] 10/26/20211977 / / [id number] Comp Fem Attune Cr Cmnt Sz4 1504-00-104 - [id number] Implanted:Qty : 1 on 11/23/2019 by Marco A Lewis MD Knee Left: Knee J&J- [employer]Y [employer] [id number] 09/19/2029 [id number] / / [id number] Comp Tib Attune Fb Cmnt Sz5 1506-70-005 - [id number] Implanted:Qty : 1 on 11/23/2019 by Marco A Lewis MD Knee Left: Knee J[employer]J- [employer] [id number] 08/19/2029 [id number] / / [id number] Insert Attune Fb Cr Sz4 6mm 1516-20-406 - [id number] Implanted:Qty : 1 on 11/23/2019 by Marco A Lewis MD Knee Left: Knee J[employer]J- [employer] [id number] 03/19/2023 [id number] / / [id number] Vince Solera Crv Ti 5.5x30mm [id number] - [id number] Implanted:Qty : 2 on 06/21/2020 by Jan Hoffman MD Vince N/A: Back MEDTRONIC- SOFAMOR DANEK 06/21/2021 [id number] / / [id number] Screw Cdh 6.5x35mm 5.5/6.0 Mas Cc [id number] - [id number] Implanted:Qty : 2 on 06/21/2020 by Jan Hoffman MD Screw N/A: Back [employer] SOFAMOR [employer]ANEK 06/21/2021 [id number] / / [id number] Screw Cdh 6.5x45mm 5.5/6.0 Mas Cc [id number] - [id number] Implanted:Qty : 2 on 06/21/2020 by Jan Hoffman MD Screw N/A: Back [employer]- SOFAMOR DANEK 06/21/2021 [id number] / / [id number] Screw Solera 5.5/6.0 Breakoff [id number] - [id number] Implanted:Qty : 4 on 06/21/2020 by Jan Hoffman MD Screw N/A: Back [employer]- SOFAMOR DANEK 06/21/2021 [id number] / / [id number] Putty Dbx Dbm 1ml 19446 - [id number] Implanted:Qty : 1 on 06/21/2020 by Jan Hoffman MD Tissue N/A: Back MUSCULOSKELETAL TRANSPLANT FOU 07/21/2021 [id number] / [id number] Readigraft Canc Chips 15ml Can15 14bp - [id number] Implanted:Qty : 1 on 06/21/2020 by Jan Hoffman MD Tissue N/A: Back LIFENET 08/07/2024 CAN15 14BP / / [id number] Procedures Procedure Name Priority Date/Time Associated Diagnosis Comments URINE CULTURE Routine 06/07/2025 2:41 PM CDT Urinary pain POC URINALYSIS DIPSTICK AUTOMATED Routine 06/07/2025 12:50 PM CDT Urinary pain URINE CULTURE Routine 05/15/2025 3:50 PM CDT Recurrent UTI VITAMIN B12 LEVEL Routine 05/15/2025 9:4 7 AM CDT Degenerative spondylolisthesis DDD (degenerative disc disease), lumbar Type 2 diabetes mellitus with diabetic polyneuropathy, with long-term current use of insulin ([facility]) Type 2 diabetes mellitus with stage 3b chronic kidney disease, without long-term current use of insulin ([facility]) Essential hypertension Mixed hyperlipidemia Morbid obesity with body mass index of 40.0-49.9 ([facility]) MAGNESIUM LEVEL Routine 05/15/2025 9:47 AM CDT Degenerative spondylolisthesis DDD (degenerative disc disease), lumbar Type 2 diabetes mellitus with diabetic polyneuropathy, with long-term current use of insulin ([facility]) Type 2 diabetes mellitus with stage 3b chronic kidney disease, without long-term current use of insulin ([facility]) Essential hypertension Mixed hyperlipidemia Morbid obesity with body mass index of 40.0-49.9 ([facility]) COMPREHENSIVE METABOLIC PANEL Routine 05/15/2025 9:47 AM CDT Degenerative spondylolisthesis DDD (degenerative disc disease), lumbar Type 2 diabetes mellitus with diabetic polyneuropathy, with long-term current use of insulin ([facility]) Type 2 diabetes mellitus with stage 3b chronic kidney disease, without long-term current use of insulin ([facility]) Essential hypertension Mixed hyperlipidemia Morbid obesity with body mass index of 40.0-49.9 ([facility]) CBC WITH DIFFERENTIAL Routine 05/15/2025 9:47 AM CDT Degenerative spondylolisthesis DDD (degenerative disc disease), lumbar Type 2 diabetes mellitus with diabetic polyneuropathy, with long-term current use of insulin ([facility]) Type 2 diabetes mellitus with stage 3b chronic kidney disease, without long-term current use of insulin ([facility]) Essential hypertension Mixed hyperlipidemia Morbid obesity with body mass index of 40.0-49.9 ([facility]) POC URINALYSIS DIPSTICK NON AUTOMATED Routine 05/15/2025 8:40 AM CDT Recurrent UTI IRON, TIBC, AND PERCENT SATURATION [facility] Add[facility] (Auto-Fax) 05/15/2025 12:00 AM CDT Chronic anemia ECHO COMPLETE Routine 05/07/2025 9:22 AM CDT Persistent atrial fibrillation ([facility]) Nonrheumatic aortic valve stenosis Primary hypertension Mixed hyperlipidemia TSH Routine 04/06/2025 12:43 PM CDT Hypothyroidism due to acquired atrophy of thyroid CBC WITH DIFFERENTIAL Routine 03/29/2025 11:17 AM CDT Type 2 diabetes mellitus with stage 3b chronic kidney disease, without long-term current use of insulin ([facility]) HEMOGLOBIN A1C Routine 03/29/2025 11:17 AM CDT Type 2 diabetes mellitus with stage 3b chronic kidney disease, without long-term current use of insulin ([facility]) COMPREHENSIVE METABOLIC PANEL Routine 03/29/2025 11:17 AM CDT Type 2 diabetes mellitus with stage 3b chronic kidney disease, without long-term current use of insulin ([facility]) COMPREHENSIVE METABOLIC PANEL Routine 03/25/2025 1:07 PM CDT COMPREHENSIVE METABOLIC PANEL Routine 03/21/2025 10:18 AM CDT PROTIME-INR Routine 03/21/2025 MICROALBUMIN/CREATIN INE RATIO, RANDOM UR Routine 10/23/2024 5:02 PM SEO COORDINATOR DIABETES EYE EXAM Routine 03/30/2024 10:35 AM CDT LIPID PANEL Routine 03/17/2024 2:16 PM CDT Type 2 diabetes mellitus with diabetic polyneuropathy, with long-term current use of insulin ([facility]) OCCULT BLOOD IMMUNOASSAY, COLORECTAL SCREEN Routine 03/31/2023 10:41 AM CDT HM DIABETES FOOT EXAM 12/23/2020 12:00 AM CDT COLON CANCER SCREEN, STOOL DNA Routine 05/17/2019 4:15 PM CDT XR DEXA BONE DENSITY AXIAL 1 OR MORE SITES Routine 07/30/2015 1:58 PM SEO COORDINATOR Postmenopausal atrophic vaginitis from Last 3 Months or Most Recently Relevant to Health Maintenance Results * (ABNORMAL) URINE CULTURE (06/07/2025 2:41 PM CDT) Only the most recent of2 resultswithin the time period is included. URINE CULTURE SEE NOTE(A) [facility] Comment: CULTURE, URINE, ROUTINE Micro Number: [id number] Test Status: Final Specimen Source: Urine, clean catch Specimen Quality: Adequate Result: Greater than 100,000 CFU/mL of Klebsiella pneumoniae K.pneumoniae INT EMILIANA AMOX/CLAVULANATE I 16 AMP/SULBACTAM S 8 CEFAZOLIN NR 2 2 CEFEPIME S <=0.12 CEFTAZIDIME S <=0.5 CEFTRIAXONE S <=0.25 CIPROFLOXACIN S <=0.06 GENTAMICIN S <=1 IMIPENEM S 0.5 LEVOFLOXACIN S <=0.12 MEROPENEM S <=0.25 NITROFURANTOIN R 128 PIP/TAZOBACTAM S <=4 TRIMETHOPRIM/SULFA S <=20 S = Susceptible I = Intermediate R [...] cefuroxime, cephalexin and loracarbef. Test Performed at: [employer] [address] [place] [address] Isabel Colby MD Urine URINE SPECIMEN OBTAINED BY CLEAN CATCH PROCEDURE / Unknown 06/07/2025 2:41 PM CDT 06/08/2025 4:03 AM CDT Whit Kim [facility] MICROBIOLOGY - GENERAL [place] Final Result [facility] [phone] [employer] [address] [place] [address] * (ABNORMAL) POC URINALYSIS DIPSTICK AUTOMATED (06/07/2025 12:50 PM CDT) COLOR UA POC Yellow Pale to Dark Yellow [facility] CLARITY UA POC Clear Clear, Other [facility] GLUCOSE UA POC Negative Negative, Normal [facility] BILIRUBIN UA POC Negative Negative [facility] KETONES UA POC Negative Negative [facility] SPECIFIC GRAVITY UA POC 1.020 1.000 - 1.030 [facility] BLOOD UA POC Trace(A) Negative [facility] LINIC [facility] PH UA POC 6.0 5.0 - 8.0 [facility] IC [facility] PROTEIN UA POC Trace(A) Negative [facility] UROBILINOGEN UA POC 0.2 <2.0 mg/dL [facility] NITRITE UA POC Negative Negative [facility] LEUKOCYTE ESTERASE UA POC Negative Negative [facility] KIT LOT NUMBER POC [phone] [facility] KIT EXP DATE POC 08/19/2025 [facility] Urine 06/07/2025 12:5 0 PM CDT Whit Kim MANAGER VALIDATION POINT OF CARE TESTING Final Result Performing Organization Address City/State/[facility] Co de Phone Number [facility] CLIA# [id number] [address] [place] [address] * (ABNORMAL) CBC WITH DIFFERENTIAL (05/15/2025 9:47 AM CDT) Only the most recent of2 resultswithin the time period is included. WBC 7.1 3.8 - 10.8 Thousand/u L [facility] RBC 3.93 3.80 - 5.10 Million/uL [facility] HEMOGLOBIN 11.4(L) 11.7 - 15.5 g/dL [facility] HEMATOCRIT 36.1 35.0 - 45.0 % [facility] MCV 91.9 80.0 - 100.0 fL [facility] MCH 29.0 27.0 - 33.0 pg [facility] MCHC 31.6(L) 32.0 - 36.0 g/dL [facility] Comment: For adults, a slight decrease in the calculated MCHC value (in the range of 30 to 32 g/dL) is most likely not clinically significant; however, it should be interpreted with caution in correlation with other red cell parameters and the patient's clinical condition. RDW 14.2 11.0 - 15.0 % [facility] PLATELETS 304 140 - 400 Thousand/u L [facility] MPV 8.3 7.5 - 12.5 fL [facility] NEUTROPHIL ABSOLUTE 4,885 1,500 - 7,800 cells/uL [facility] LYMPHOCYTE ABSOLUTE 1,200 850 - 3,900 cells/uL [facility] MONOCYTE ABSOLUTE 724 200 - 950 cells/uL [facility] EOSINOPHIL ABSOLUTE 263 15 - 500 cells/uL [facility] BASOPHILS ABSOLUTE 28 0 - 200 cells/uL [facility] NEUTROPHIL 68.8 % [facility] LYMPHOCYTES 16.9 % [facility] MONOCYTE 10.2 % [facility] EOSINOPHILS 3.7 % [facility] BASOPHILS 0.4 % [facility] Comment: FASTING:UNKNOWN FASTING: UNKNOWN Test Performed at: [email or web address] [address] Isabel Colby MD Blood 05/15/2025 9:47 AM CDT 05/15/2025 9:48 AM CDT Adrienne March DO HEMATOLOGY ORDERABLES Final Result [facility] [phone] [email or web address] [address] * MAGNESIUM LEVEL (05/15/2025 9:47 AM CDT) MAGNESIUM 2.2 1.5 - 2.5 mg/dL [facility] Comment: Test Performed at: [employer] [address] [place] [address] Isabel Colby MD Blood 05/15/2025 9:47 AM CDT 05/15/2025 9:48 AM CDT Adrienne March DO CHEMISTRY ORDERABLES Final Result Performing Organization Address [facility] Co de Phone Number [facility] [phone] [facility] [address] [place] [address] * VITAMIN B12 LEVEL (05/15/2025 9:47 AM CDT) Pathologist [facility] VITAMIN B12 201 200 - 1100 pg/mL [facility] Comment: Please Note: Although the reference range for vitamin B12 is 200-1100 pg/mL, it has been reported that between 5 and 10% of patients with values between 200 and 400 pg/mL may experience neuropsychiatric and hematologic abnormalities due to occult B12 deficiency; less than 1% of patients with values above 400 pg/mL will have symptoms. FASTING:UNKNOWN FASTING: UNKNOWN Test Performed at: [email or web address] [address] Isabel Colby MD Blood 05/15/2025 9:47 AM CDT 05/15/2025 9:48 AM CDT Adrienne March CHEMISTRY ORDERABLES Final Result Performing Organization Address [facility] de Phone Number [facility] [phone] [facility] [address] [place] [address] * (ABNORMAL) COMPREHENSIVE METABOLIC PANEL (05/15/2025 9:47 AM CDT) Only the most recent of4 resultswithin the time period is included. GLUCOSE 137(H) 65 - 99 mg/dL [facility] Comment: Fasting reference interval For someone without known diabetes, a glucose value >125 mg/dL indicates that they may have diabetes and this should be confirmed with a follow-up test. BUN 15 7 - 25 mg/dL [facility] CREATININE 1.34(H) 0.60 - 1.00 mg/dL [facility] GFR 41(L) > OR = 60 mL/min/1.7 3m2 [facility] BUN/CREAT RATIO 11 6 - 22 (calc) [facility] SODIUM 142 135 - 146 mmol/L [facility] POTASSIUM 4.3 3.5 - 5.3 mmol/L [facility] CHLORIDE 102 98 - 110 mmol/L [facility] CO2 33(H) 20 - 32 mmol/L [facility] CALCIUM 8.1(L) 8.6 - 10.4 mg/dL [facility] TOTAL PROTEIN 6.7 6.1 - 8.1 g/dL [facility] ALBUMIN 3.5(L) 3.6 - 5.1 g/dL [facility] GLOBULIN 3.2 1.9 - 3.7 g/dL (calc) [facility] ALBUMIN/GLOBULIN RATIO 1.1 1.0 - 2.5 (calc) [facility] BILIRUBIN TOTAL 0.3 0.2 - 1.2 mg/dL [facility] ALKALINE PHOSPHATASE 104 37 - 153 U/L [facility] AST 14 10 - 35 U/L [facility] ALT 12 6 - 29 U/L [facility] Comment: FASTING:UNKNOWN FASTING: UNKNOWN Test Performed at: [employer] [address] Isabel Colby MD Blood 05/15/2025 9:47 AM CDT 05/15/2025 9:48 AM CDT us Adrienne March DO CHEMISTRY ORDERABLES Final Result [facility] [phone] [facility] [employer] [address] * (ABNORMAL) POC URINALYSIS DIPSTICK NON AUTOMATED (05/15/2025 8:40 AM CDT) COLOR UA POC Yellow Pale to Dark Yellow [facility] CLARITY UA POC Clear Clear, Other [facility] GLUCOSE UA POC Negative Negative, Normal [facility] BILIRUBIN UA POC Negative Negative [facility] KETONES UA POC Negative Negative [facility] SPECIFIC GRAVITY UA POC 1.020 1.000 - 1.030 [facility] BLOOD UA POC 1+(A) Negative [facility] LINIC [facility] PH UA POC 7.0 5.0 - 8.0 [facility] CLIN IC [facility] PROTEIN UA POC Negative Negative [facility] UROBILINOGEN UA POC 0.2 <2.0 mg/dL [facility] NITRITE UA POC Negative Negative [facility] LEUKOCYTE ESTERASE UA POC Trace(A) Negative [facility] KIT LOT NUMBER POC 412,020 [facility] KIT EXP DATE POC 03/19/2026 [facility] Urine 05/15/2025 8:40 AM CDT Adrienne March DO POINT OF CARE TESTING Final Result [facility] CLIA# [id number] [address] [place] [address] * IRON, TIBC, AND PERCENT SATURATION (05/15/2025 12:00 AM CDT) IRON 70 45 - 160 mcg/dL [facility] TIBC 326 250 - 450 mcg/dL (calc) [facility] IRON % SATURATION 21 16 - 45 % (calc) [facility] Comment: Test Performed at: [facility] [facility] [address] [address] Isabel Colby MD Blood 05/15/2025 05/16/2025 12: 16 PM CDT Adrienne Yanni Anca CHEMISTRY ORDERABLES Final Result [facility] [phone] [facility] [address] [facility] [place] [address] * ECHO COMPLETE - CONTRAST AND STRAIN IF INDICATED (05/07/2025 9:22 AM CDT) EJECTION FRACTION 65 INTERFACE SYSTEM 05/07/2025 8:48 AM CDT Narrative INTERFACE SYSTEM - 05/07/2025 11:27 AM CDT [facility] Radiology Services - Echocardiology [address] [address] Transthoracic Echocardiography Patient: Mary Matias Study ID: [id number] Gender: F : 1945 Age: 79 [facility] Study Date: 05/07/2025 Pt Status: Study Time: 08:48:22 AM CSN #: [id number] Ordering:Cori Ochoa Twister Frame Tender: Alexandra Patel Indications and History: Persistent atrial fibrillation (CMS/HCC) [I48.19 (ICD-10-CM)]; Nonrheumatic aortic valve stenosis [I35.0 (ICD-10-CM)]; Primary hypertension [I10 (ICD-10-CM)]; Mixed hyperlipidemia [E78.2 (ICD-10-CM)] Summary and Conclusion: - Left ventricle: The cavity size is normal. Wall thickness is normal. Global systolic function is normal. The estimated ejection fraction is 60-65%. For Epic reporting: the left ventricular ejection fraction is 65%. No diagnostic regional wall motion abnormality identified. Findings consistent with left ventricular diastolic dysfunction. - Right ventricle: The cavity size is mildly dilated. Systolic function is difficult to assess and probably normal. Systolic pressure is within the normal range. - Aortic valve: Not well visualized. The valve is probably trileaflet. The leaflets are thickened and calcified. There is moderate to severe stenosis. There is mild regurgitation. The peak systolic velocity is 301cm/sec. The mean systolic gradient is 25mm Hg. - Mitral valve: There is mild regurgitation. - Tricuspid valve: There is trivial to mild regurgitation. Comparison: Compared to the prior study, there has been no significant interval change. Study is technically difficult Procedure information: Study status: Routine. Procedure: A transthoracic echocardiogram was performed. Image quality was poor. Scanning was performed from the parasternal, apical, subcostal, and suprasternal notch acoustic windows. Study components: M-mode, 2D, complete spectral Doppler, and color Doppler. Height: 157.5cm. Height: 62in. Weight: 98.4kg. Weight: 216.9lb. BMI: 39.7kg/m^2. BSA: 2.13m^2. Study date: 05/07/2025. Study time: 08:48 AM. Cardiac Anatomy: LEFT VENTRICLE: The cavity size is normal. Wall thickness is normal. Global systolic function is normal. The estimated ejection fraction is 60-65%. For Epic reporting: the left ventricular ejection fraction is 65%. No diagnostic regional wall motion abnormality identified. Findings consistent with left ventricular diastolic dysfunction. RIGHT VENTRICLE: The cavity size is mildly dilated. Systolic function is difficult to assess and probably normal. Systolic pressure is within the normal range. LEFT ATRIUM: The atrium is normal in size. RIGHT ATRIUM: The atrium is normal in size. ATRIAL SEPTUM: No obvious PFO or ASD identified by 2D imaging and color Doppler. AORTIC VALVE: Not well visualized. The valve is probably trileaflet. The leaflets are thickened and calcified. Mobility is restricted. There is moderate to severe stenosis. There is mild regurgitation. MITRAL VALVE: Structurally normal valve. Mobility is not restricted. No evidence for prolapse. There is no evidence for stenosis. There is mild regurgitation. TRICUSPID VALVE: Structurally normal valve. Mobility is unrestricted. There is no evidence for stenosis. There is trivial to mild regurgitation. PULMONIC VALVE: Not well visualized. The valve appears to be grossly normal. There is no evidence for stenosis. There is trivial regurgitation. PERICARDIUM: A minimal pericardial effusion and/or fat pad was identified. AORTA: Aortic root: The root is not dilated. Aortic arch: The vessel is not dilated. INTRACARDIAC MASS THROMBUS: No apparent intracavitary masses or thrombi detected. Measurements Left ventricle Value Aortic valve Value FS, LAX 27 % Peak v, S 301 cm/sec FS 27 % Mean v, S 231 cm/sec EDV 120 ml VTI, S 72.0 cm ESV 57 ml Mean grad, S 25 mm Hg EF 53 % Peak grad, S 36 mm Hg EDV/bsa 56 ml/m^2 ESV/bsa 27 ml/m^2 Mitral valve Value EDV, MM Teich. 120 ml Peak E/A ratio 1.18 EF, MM Teich. 53 % EDV/bsa, MM Teich. 56 ml/m^2 Tricuspid valve Value EF, MM on 2D Teich. 53 % TR peak v 286 cm/sec E/e', lat arjun, TDI 12 Peak RV-RA grad, S 33 mm Hg E/e', med arjun, TDI 17 E/e', avg, TDI 14 Descending aorta Value Prox Xin diam 1.6 cm Left atrium Value Vol, S 47 ml Inferior vena cava Value Vol/bsa, S 22 ml/m^2 Prox diam, exp 1.6 cm Legend: (L) and (H) jaelyn values outside specified reference range. Prepared and Electronically Authenticated Jeremiah Watson MD Confirmed 05/07/2025 11:27 Procedure Note Jeremiah Watson MD - 05/07/2025 [facility] Radiology Services - Echocardiology [address] [place] [address] Transthoracic Echocardiography Patient: Mary Matias Study ID:[id number] Gender: F : 1945 Age: 79 [facility] Study Date: 05/07/2025 Pt Status: Study Time: 08:48:22 AM [facility] #: [id number] Ordering:Cori Ochoa Twister Frame Tender: Alexandra Patel Indications and History: Persistent atrial fibrillation (CMS/HCC)[I48.19 (ICD-10-CM)]; Nonrheumatic aortic valve stenosis [I35.0 (ICD-10-CM)];Primary hypertension [I10 (ICD-10-CM)]; Mixed hyperlipidemia [E78.2 (ICD-10-CM)] Summary and Conclusion: - Left ventricle: The cavity size is normal. Wall thickness is normal.Global systolic function is normal. The estimated ejection fraction is 60-65%.For Epic reporting: the left ventricular ejection fraction is 65%. Nodiagnostic regional wall motion abnormality identified. Findings consistent withleft ventricular diastolic dysfunction. - Right ventricle: The cavity size is mildly dilated. Systolic functionis difficult to assess and probably normal. Systolic pressure is withinthe normal range. - Aortic valve: Not well visualized. The valve is probably trileaflet.The leaflets are thickened and calcified. There is moderate to severestenosis. There is mild regurgitation. The peak systolic velocity is 301cm/sec.The mean systolic gradient is 25mm Hg. - Mitral valve: There is mild regurgitation. - Tricuspid valve: There is trivial to mild regurgitation. Comparison: Compared to the prior study, there has been no significant interval change. Study is technically difficult Procedure information: Study status: Routine. Procedure: Atransthoracic echocardiogram was performed. Image quality was poor. Scanning wasperformed from the parasternal, apical, subcostal, and suprasternal notch acoustic windows. Study components: M-mode, 2D, complete spectral Doppler,and color Doppler. Height: 157.5cm. Height: 62in. Weight: 98.4kg.Weight: 216.9lb. BMI: 39.7kg/m^2. BSA: 2.13m^2. Study date:05/07/2025. Study time: 08:48 AM. Cardiac Anatomy: LEFT VENTRICLE: The cavity size is normal. Wall thickness is normal.Global systolic function is normal. The estimated ejection fraction is 60-65%.For Epic reporting: the left ventricular ejection fraction is 65%. Nodiagnostic regional wall motion abnormality identified. Findings consistent withleft ventricular diastolic dysfunction. RIGHT VENTRICLE: The cavity size is mildly dilated. Systolic functionis difficult to assess and probably normal. Systolic pressure is within the normal range. LEFT ATRIUM: The atrium is normal in size. RIGHT ATRIUM: The atrium is normal in size. ATRIAL SEPTUM: No obvious PFO or ASD identified by 2D imaging and color Doppler. AORTIC VALVE: Not well visualized. The valve is probably trileaflet.The leaflets are thickened and calcified. Mobility is restricted. There is moderate to severe stenosis. There is mild regurgitation. MITRAL VALVE: Structurally normal valve. Mobility is not restricted.No evidence for prolapse. There is no evidence for stenosis. There ismild regurgitation. TRICUSPID VALVE: Structurally normal valve. Mobility isunrestricted. There is no evidence for stenosis. There is trivial to mildregurgitation. PULMONIC VALVE: Not well visualized. The valve appears to be grosslynormal. There is no evidence for stenosis. There is trivial regurgitation. PERICARDIUM: A minimal pericardial effusion and/or fat pad wasidentified. AORTA: Aortic root: The root is not dilated. Aortic arch: The vessel is not dilated. INTRACARDIAC MASS THROMBUS: No apparent intracavitary masses or thrombi detected. Measurements Left ventricle Value Aortic valve Value FS, LAX 27 % Peak v, S 301 cm/sec FS 27 % Mean v, S 231 cm/sec EDV 120 ml VTI, S 72.0 cm ESV 57 ml Mean grad, S 25 mm Hg EF 53 % Peak grad, S 36 mm Hg EDV/bsa 56 ml/m^2 ESV/bsa 27 ml/m^2 Mitral valve Value EDV, MM Teich. 120 ml Peak E/A ratio 1.18 EF, MM Teich. 53 % EDV/bsa, MM Teich. 56 ml/m^2 Tricuspid valve Value EF, MM on 2D Teich. 53 % TR peak v 286 cm/sec E/e', lat arjun, TDI 12 Peak RV-RA grad, S 33 mm Hg E/e', med arjun, TDI 17 E/e', avg, TDI 14 Descending aorta Value Prox Xin diam 1.6 cm Left atrium Value Vol, S 47 ml Inferior vena cava Value Vol/bsa, S 22 ml/m^2 Prox diam, exp 1.6 cm Legend: (L) and (H) jaelyn values outside specified reference range. Prepared and Electronically Authenticated Jeremiah Watson MD Confirmed 05/07/2025 11:27 Cori HOLLIDAY US ORDERABLES Final Result INTERFACE SYSTEM Refer to clinic/hospital department * TSH (04/06/2025 12:43 PM CDT) Pathologist [facility] TSH 3.41 0.40 - 4.50 mIU/L [facility] Comment: Test Performed at: [facility] [address] [facility] [place] [address] Isabel Colby MD Blood 04/06/2025 12:4 3 PM CDT 04/07/2025 3:09 AM CDT Adrienne March DO CHEMISTRY ORDERABLES Final Result [facility] [phone] [facility] [id number] [place] [address] [place] [address] * (ABNORMAL) HEMOGLOBIN A1C (03/29/2025 11:17 AM CDT) Pathologist [facility] HEMOGLOBIN A1C 8.2(H) <5.7 % [facility] Comment: For someone without known diabetes, [...] diabetes for children. ESTIMATED AVERAGE GLUCOSE (MG/DL) 189 mg/dL [facility] ESTIMATED AVERAGE GLUCOSE (MMOL/L) 10.4 mmol/L [facility] Comment: Test Performed at: [facility] [address] [place] [address] Isabel Colby MD Blood 03/29/2025 11:1 7 AM CDT 03/30/2025 3:14 AM CDT December [facility] CHEMISTRY ORDERABLES Final Resul t [facility] [phone] [facility] [address] [address] * PROTIME-INR (03/21/2025) ABSTRACTED PROTIME 14.6 ABSTRACTED INR 1.07 Blood 03/21/2025 us Abstract Provider HEMATOLOGY ORDERABLES Final Re sult * (ABNORMAL) MICROALBUMIN/CREATININE RATIO, RANDOM UR (10/23/2024 5:02 PM SEO COORDINATOR) Creatinine, Urine 60 20 - 275 mg/dL [...] within a diagnostic category. Test Performed at: [employer] [address] [place] [address] Isabel Colby MD Urine URINE SPECIMEN OBTAINED BY CLEAN CATCH PROCEDURE / Unknown 10/23/2024 5:02 PM SEO COORDINATOR 10/24/2024 2:46 AM SEO COORDINATOR December [facility] URINE ORDERABLES Final Result [facility] [phone] [facility] [facility] [address] [place] [address] * (ABNORMAL) DIABETES EYE EXAM (03/30/2024 10:35 [...] factors. LDL-C is now calculated using the Kelly calculation, which is a validated novel method providing better accuracy than the Friedewald equation in the estimation of LDL-C. Vimal MADERA et al. NATALIIA. 2013;310(19): 2867-6825 (http://education.PayUsLessRx.com/faq/AEM922) CHOL/HDL RATIO 3.1 <5.0 (calc) [facility] NON-HDL CHOLESTEROL 116 <130 mg/dL (calc) [facility] Comment: For patients with diabetes plus 1 major ASCVD risk factor, treating to a non-HDL-C goal of <100 mg/dL (LDL-C of <70 mg/dL) is considered a therapeutic option. Test Performed at: [employer] [address] [place] [address] Isabel Colby MD Blood 03/17/2024 2:16 PM CDT 03/18/2024 4:23 AM CDT us Adrienne March DO CHEMISTRY ORDERABLES Final Result [facility] [phone] [email or web address] [address] [place] [address] * OCCULT BLOOD IMMUNOASSAY, COLORECTAL SCREEN (03/31/2023 10:41 AM CDT) Stool STOOL SPECIMEN / Unknown us Abstract Provider BODY FLUIDS AND STOOLS Final R esult * HM DIABETES FOOT EXAM (12/23/2020 12:00 AM CDT) Adrienne March DO HEALTH MAINTENANCE Edited R esult - Final * COLON CANCER SCREEN, STOOL DNA (05/17/2019 4:15 PM CDT) COLOGUARD RESULT Negative Not Applicable 05/24/2019 3:08 PM CDT [facility] Comment: A negative result indicates a low [...] Contreras. et al, N Engl J Med 2014;370(14):6057-5075) COLOGUARD RE-SCREENING RECOMMENDATION: Periodic routine colorectal cancer screening is an important part of preventive healthcare for asymptomatic persons at average risk for colorectal cancer. Following a negative Cologuard result, the [place] Cancer Society and U.S. Multi-Society Task Force screening guidelines recommend a Cologuard re-screening interval of 3 years. References: [place] Cancer Society (ACS). Colorectal cancer prevention and early detection. [place], [place]: [place] Cancer Society; [updated 2015Jan 11]. https://www.cancer.org/cancer/lhybp-gfppzi-syisqn/ikdmffomp-kndewkktp-dubqykm/ac s-rec ommendations.html. Accessed May 20, 2018; Héctor BAUM, Marleny JURADO, Cruzito BRADLEY, Colorectal Cancer Screening: Recommendations for Physicians and Patients from the U.S. Multi-Society Task Force on Colorectal Cancer Screening, Am J Gastroenterology 2017; 112:8915-0498. Test Type: Composite algorithmic analysis of stool [...] can be accessed at the following location: www.[employer]/results. Additional description of the Cologuard test process, warnings and precautions can be found at www.cologuardtest.com. Rx Only. Stool STOOL SPECIMEN / Unknown 05/17/2019 4:15 PM CDT 05/18/2019 11:04 PM CDT Adrienne March DO BODY FLUIDS AND STOOLS Rosetta terrazas Result [facility] [facility] CLIA # [id number] [address] , [address] [place] [address] * XR DEXA BONE DENSITY AXIAL 1 OR MORE SITES (07/30/2015 1:58 PM SEO COORDINATOR) Anatomical Region Laterality Modality Other Narrative 07/31/2015 8:08 AM SEO COORDINATOR PROCEDURE DEXA BONE DENSITY, 30 July 2015 [...] Most Recently Relevant to Health Maintenance Insurance [address] [place] [id number] MEDICAID [facility] DUAL ADVANTAGE O [facility] * Guarantor: MARY MATIAS Account Type Relation to Patient Date of Phone Billing Address Personal/Family [address] [place] [address] RX WE[employer]ER PLANS (INTERNAL) [facility] RX [facility] Medicare Part D Advance Directives For more information, please contact: [phone] * Full Code (Latest Code Status on File) Date Activated Date Inactivated Comments 07/20/2024 3:46 AM 07/24/2024 6:49 PM Care Teams Insurance Law Specialist Relationship Specialty Start Date End Date Adrienne March DO [address] [place] [facility] [address] PCP - General Family Practice 06/30/10
--- OUTSIDE RECORDS SUMMARY | 2025-06-20 15:28 | XMS_ITS | Encounter Summary ---
Author Organization [facility] Address [address] [place] [address] Care Team Providers Care Clinical Rehabilitation Coordinator Name Role Phone Adrienne March DO Primary Care Provider +1- [phone] Encounter Details Date Type Department Care Team (Latest Contact Info) Description 06/24/2001 Outpatient Historical [facility] Dipak Malagon MD NO ADDRESS ON FILE Carpal tunnel syndrome (Primary Dx) Social History Tobacco Use Types Packs/Day Years Used Date Smoking Tobacco: Never Assessed Comments Unknown Sex and Gender Information Value Date Recorded Sex Assigned at Not on file Legal Sex Female 3:34 AM DIRECT CARE SUPERVISOR Gender Identity Not on file Sexual Orientation Not on file documented as of this encounter Plan of Treatment Not on file documented as of this encounter Visit Diagnoses Diagnosis Carpal tunnel syndrome- Primary documented in this encounter Care Teams Clinical Rehabilitation Coordinator Relationship Specialty Start Date End Date Adrienne March DO [address] [place] [address] PCP - General Family Practice 06/30/10 documented as of this encounter
--- OUTSIDE RECORDS SUMMARY | 2025-06-20 15:28 | XMS_ITS | Encounter Summary ---
Author Organization [facility] Address [address] [place] [address] Care Team Providers Care Apprentice Painter Hand Name Role Phone Adrienne March DO Primary Care Provider Encounter Details Date Type Department Care Team (Latest Contact Info) Description 11/12/2000 Outpatient Historical [facility] Internal Medicine- [address] [place] [address] Umang Urrutia MD [address] [place] [address] Type II or unspecified type [...] file Legal Sex Female 3:34 AM HIM CLERK Gender Identity Not on file Sexual [...] spur documented in this encounter Care Teams Apprentice Painter Hand Relationship Specialty Start Date End Date Adrienne March DO [address] [place] [address] PCP - General Family Practice 06/30/10 documented as of this encounter
--- OUTSIDE RECORDS SUMMARY | 2025-06-20 15:28 | XMS_ITS | Encounter Summary ---
Author Organization [facility] Address [address] [place] [address] Care Team Providers Care Tester [employer]iconductor Packages Name Role Phone Adrienne March DO Primary Care Provider Encounter Details Date Type Department Care Team (Latest Contact Info) Description 05/27/2004 Outpatient Historical [facility] [address] [place] [address] Jose Luis Mcmillan MD [address] [place] [address] CERVICALGIA (Primary Dx); Cervical spondylosis; JOINT PAIN-SHLDER Social History Tobacco Use Types Packs/Day Years Used Date Smoking Tobacco: Never Assessed Comments Unknown Sex and Gender Information Value Date Recorded Sex Assigned at Not on file Legal Sex Female 3:34 AM TRIMMER HAND Gender Identity Not on file Sexual Orientation Not on file documented as of this encounter Plan of Treatment Not on file documented as of this encounter Visit Diagnoses Diagnosis Cervicalgia- Primary Cervical spondylosis Cervical spondylosis without myelopathy Pain in joint, shoulder region documented in this encounter Care Teams Tester [employer]iconductor Packages Relationship Specialty Start Date End Date Adrienne March DO [address] [place] [address] PCP - General Family Practice 06/30/10 documented as of this encounter
--- OUTSIDE RECORDS SUMMARY | 2025-06-20 15:28 | XMS_ITS | Encounter Summary ---
Author Organization [facility] Address [address] Murillo: [place] [address] Care Team Providers Care Major Account Manager Name Role Phone Adrienne March DO Primary Care Provider +1- [phone] Encounter Details Date Type Department Care Team (Late st Contact Info) Description 06/30/2000 Outpatient Historical Umang Urrutia MD [address] [place] [address] Social History Tobacco Use Types Packs/Day Years Used Date Smoking Tobacco: Never Assessed Comments Unknown Sex and Gender Information Value Date Recorded Sex Assigned at Not on file Legal Sex Female 3:34 AM REGIONAL TRANSFER LIAISON Gender Identity Not on file Sexual Orientation Not on file documented as of this encounter Plan of Treatment Not on file documented as of this encounter Visit Diagnoses Not on filedocumented in this encounter Care Teams Major Account Manager Relationship Specialty Start Date End Date Adrienne March DO [address] [place] [address] PCP - General Family Practice 06/30/10 documented as of this encounter
--- OUTSIDE RECORDS SUMMARY | 2025-06-20 15:28 | XMS_ITS | Encounter Summary ---
Author Organization [facility] Address [address] [place] [address] Care Team Providers Care Manager Resource Name Role Phone Adrienne March DO Primary Care Provider Encounter Details Date Type Department Care Team (Latest Contact Info) Description 02/21/2001 Outpatient [facility] Podiatry-[facility] Kimberly [address] [place] [address] Abel Hurtado, MARCE NO ADDRESS ON FILE Calcaneal spur (Primary Dx); Tenosynovitis of foot and ankle; Pain in limb Social History Tobacco Use Types Packs/Day Years Used Date Smoking Tobacco: Never Assessed Comments Unknown Sex and Gender Information Value Date Recorded Sex Assigned at Not on file Legal Sex Female 3:34 AM ROVING HAULER Gender Identity Not on file Sexual Orientation Not on file documented as of this encounter Plan of Treatment Not on file documented as of this encounter Visit Diagnoses Diagnosis Calcaneal spur- Primary Tenosynovitis of foot and ankle Pain in limb Pain in soft tissues of limb documented in this encounter Care Teams Manager Resource Relationship Specialty Start Date End Date Adrienne March DO [address] [place] [phone] PCP - General Family Practice 06/30/10 documented as of this encounter
--- OUTSIDE RECORDS SUMMARY | 2025-06-20 15:28 | XMS_ITS | Encounter Summary ---
Author Organization [facility] Address [address] [place] [address] Care Team Providers Care Field Sales Executive Name Role Phone Adrienne March DO Primary Care Provider Encounter Details Date Type Department Care Team (Latest Contact Info) Description 08/25/2004 Outpatient [facility] Podiatry-[facility] [place] [address] [place] [address] Abel Hurtado, MARCE NO ADDRESS ON FILE Other lymphedema (Primary Dx); LOWER LEG INJURY NOS; DERMATOPHYTOSIS OF FOOT Social History Tobacco Use Types Packs/Day Years Used Date Smoking Tobacco: Never Assessed Comments Unknown Sex and Gender Information Value Date Recorded Sex Assigned at Not on file Legal Sex Female 3:34 AM CUFF PRESSER Gender Identity Not on file Sexual Orientation Not on file documented as of this encounter Plan of Treatment Not on file documented as of this encounter Visit Diagnoses Diagnosis Other lymphedema- Primary Other noninfectious lymphedema Injury, other and unspecified, knee, leg, ankle, and foot Dermatophytosis of foot documented in this encounter Care Teams Field Sales Executive Relationship Specialty Start Date End Date Adrienne March DO [address] [place] [address] PCP - General Family Practice 06/30/10 documented as of this encounter
--- OUTSIDE RECORDS SUMMARY | 2025-06-20 15:28 | XMS_ITS | Encounter Summary ---
Author Organization [facility] Address [address] [place] [address] Care Team Providers Care Drying Can Worker Name Role Phone Adrienne March DO Primary Care Provider Encounter Details Date Type Department Care Team (Latest Contact Info) Description 08/01/2004 Outpatient Historical [facility] [address] [place] [address] Wilfredo Michel MD [address] [address] Muscle weakness (Primary Dx) Social History Tobacco Use Types Packs/Day Years Used Date Smoking Tobacco: Never Assessed Comments Unknown Sex and Gender Information Value Date Recorded Sex Assigned at Not on file 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
--- OUTSIDE RECORDS SUMMARY | 2025-06-20 15:28 | XMS_ITS | Encounter Summary ---
Author Organization [facility] Address [address] Murillo: [place] [address] Care Team Providers Care Chief Cook Name Role Phone Adrienne March DO Primary Care Provider +1- [phone] Encounter Details Date Type Department Care Team (Late st Contact Info) Description 02/21/2001 Outpatient Historical Umang Urrutia MD [address] [place] [address] Social History Tobacco Use Types Packs/Day Years Used Date Smoking Tobacco: Never Assessed Comments Unknown Sex and Gender Information Value Date Recorded Sex Assigned at Not on file Legal Sex Female 3:34 AM PHP SOFTWARE ENGINEER Gender Identity Not on file Sexual Orientation Not on file documented as of this encounter Plan of Treatment Not on file documented as of this encounter Visit Diagnoses Not on filedocumented in this encounter Care Teams Chief Cook Relationship Specialty Start Date End Date Adrienne March DO [address] [place] [address] PCP - General Family Practice 06/30/10 documented as of this encounter
--- OUTSIDE RECORDS SUMMARY | 2025-06-20 15:28 | XMS_ITS | Encounter Summary ---
Author Organization [facility] Address [address] [place] [address] Care Team Providers Care Technical Administrator Name Role Phone Adrienne March DO Primary Care Provider Encounter Details Date Type Department Care Team (Late st Contact Info) Description 04/16/1999 Outpatient Historical [facility] Neurology [address], [address] [place] [phone] Lukas Vang MD [address] [place] [address] Pain in limb (Primary Dx) Social History Tobacco Use Types Packs/Day Years Used Date Smoking Tobacco: Never Assessed Comments Unknown Sex and Gender Information Value Date Recorded Sex Assigned at Not on file Legal Sex Female 3:34 AM LEAF STAMPER Gender Identity Not on file Sexual Orientation Not on file documented as of this encounter Plan of Treatment Not on file documented as of this encounter Visit Diagnoses Diagnosis Pain in limb- Primary Pain in soft tissues of limb documented in this encounter Care Teams Technical Administrator Relationship Specialty Start Date End Date Adrienne March DO [address] [place] [address] PCP - General Family Practice 06/30/10 documented as of this encounter
--- OUTSIDE RECORDS SUMMARY | 2025-06-20 15:28 | XMS_ITS | Encounter Summary ---
Author Organization [facility] Address [address] [place] [address] Care Team Providers Care Chain Puller Name Role Phone Adrienne March DO Primary Care Provider Encounter Details Date Type Department Care Team (Latest Contact Info) Description 07/29/2004 Outpatient Historical [facility] [address] [place] [address] Abel Hurtado, DPM NO ADDRESS ON FILE Pain in limb (Primary Dx) Social History Tobacco Use Types Packs/Day Years Used Date Smoking Tobacco: Never Assessed Comments Unknown Sex and Gender Information Value Date Recorded Sex Assigned at Not on file Legal Sex Female 3:34 AM SENIOR JAVASCRIPT ENGINEER Gender Identity Not on file Sexual Orientation Not on file documented as of this encounter Plan of Treatment Not on file documented as of this encounter Visit Diagnoses Diagnosis Pain in limb- Primary Pain in soft tissues of limb documented in this encounter Care Teams Chain Puller Relationship Specialty Start Date End Date Adrienne March DO [address] [place] [address] PCP - General Family Practice 06/30/10 documented as of this encounter
--- OUTSIDE RECORDS SUMMARY | 2025-06-20 15:28 | XMS_ITS | Encounter Summary ---
Author Organization [facility] Address [address] [place] [address] Care Team Providers Care Copy Supervisor Name Role Phone Adrienne March Primary Care Provider [phone] Encounter Details Date Type Department Care Team (Late st Contact Info) Description 10/20/2017 Ancillary Orders [facility] [address] [place] [address] Deanne Banks, [facility] [address] [place] [address] Fall (on)(from) incline, initial encounter; Acute bilateral [...] on file Legal Sex Female 3:34 AM FULL CHARGE BOOKKEEPER Gender Identity Not on file Sexual Orientation [...] 2 OR 3 VW (10/20/2017 5:18 PM FULL CHARGE BOOKKEEPER) Anatomical Region Laterality Modality Spine Computed Radiogr aphy 10/20/2017 5:19 PM FULL CHARGE BOOKKEEPER Impressions 10/21/2017 10:00 AM FULL CHARGE BOOKKEEPER IMPRESSION: Please see below. Exam: XR LUMBAR [...] age-indeterminate L1 compression deformity. us Deanne Banks TRANSMISSIONS SYSTEMS OPERATOR DIAGNOSTIC IMAGING ORDERABLES Final Result documented in this encounter Visit Diagnoses Diagnosis Fall (on)(from) incline, initial encounter Acute bilateral low back pain without sciatica Fall (on)(from) incline, initial encounter Acute bilateral low back pain without sciatica documented in this encounter Additional Health Concerns Assessment Noted Time PHQ-9 Depression Total Score: 3 06/11/20 14 9:00 AM CDT documented as of this encounter Care Teams Copy Supervisor Relationship Specialty Start Date End Date Adrienne March DO [address] [place] [address] PCP - General Family Practice 06/30/10 documented as of this encounter
--- OUTSIDE RECORDS SUMMARY | 2025-06-20 15:28 | XMS_ITS | Encounter Summary ---
Author Organization [facility] Address [address] [place] [address] Care Team Providers Care Supervisor Electronic Testing Name Role Phone Adrienne March DO Primary Care Provider Encounter Details Date Type Department Care Team (Latest Contact Info) Description 04/25/2001 Outpatient [facility] Podiatry-[facility] [place] [address] [place] [address] Abel Hurtado, DPM NO ADDRESS ON FILE Exostosis of unspecified site (Primary Dx) Social History Tobacco Use Types Packs/Day Years Used Date Smoking Tobacco: Never Assessed Comments Unknown Sex and Gender Information Value Date Recorded Sex Assigned at Not on file Legal Sex Female 3:34 AM SECURITY THREAT ANALYST Gender Identity Not on file Sexual Orientation Not on file documented as of this encounter Plan of Treatment Not on file documented as of this encounter Visit Diagnoses Diagnosis Exostosis of unspecified site- Primary documented in this encounter Care Teams Supervisor Electronic Testing Relationship Specialty Start Date End Date Adrienne March DO [address] [place] [address] PCP - General Family Practice 06/30/10 documented as of this encounter
--- OUTSIDE RECORDS SUMMARY | 2025-06-20 15:28 | XMS_ITS | Encounter Summary ---
Author Organization [facility] Address [address] [place] [address] Care Team Providers Care Lasting Machine Operator Bed Name Role Phone Adrienne March DO Primary Care Provider [phone] Encounter Details Date Type Department Care Team (Latest Contact Info) Description 11/23/2005 Outpatient Historical [facility] Orthopedics- [address] [place] [address] Josse Ferguson MD NO ADDRESS ON FILE Stiffness of Joint, not Elsewhere Classified, Forearm (Primary Dx); Pain in Joint, Forearm; Pain in Joint, Lower Leg; Healed Fx Follow-Up Social History Tobacco Use Types Packs/Day Years Used Date Smoking Tobacco: Never Assessed Comments Unknown Sex and Gender Information Value Date Recorded Sex Assigned at Not on file Legal Sex Female 3:34 AM LAUNDRY LABORER Gender Identity Not on file Sexual Orientation Not on file documented as of this encounter Plan of Treatment Not on file documented as of this encounter Visit Diagnoses Diagnosis Stiffness of joint, not elsewhere classified, forearm- Primary Pain in joint, forearm Pain in joint, lower leg Healed fx follow-up Treatment of healed fracture follow-up examination documented in this encounter Care Teams Lasting Machine Operator Bed Relationship Specialty Start Date End Date Adrienne March DO [address] [place] [address] PCP - General Family Practice 06/30/10 documented as of this encounter
--- OUTSIDE RECORDS SUMMARY | 2025-06-20 15:28 | XMS_ITS | Encounter Summary ---
Author Organization [facility] Address [address]: [place] [address] Care Team Providers Care Bridge Welder Name Role Phone Adrienne March DO Primary Care Provider +1- [phone] Encounter Details Date Type Department Care Team (Late st Contact Info) Description 03/11/2001 Outpatient Historical Abel Hurtado, DPM NO ADDRESS ON FILE Social History Tobacco Use Types Packs/Day Years Used Date Smoking Tobacco: Never Assessed Comments Unknown Sex and Gender Information Value Date Recorded Sex Assigned at Not on file Legal Sex Female 3:34 AM REPORTS ANALYST Gender Identity Not on file Sexual Orientation Not on file documented as of this encounter Plan of Treatment Not on file documented as of this encounter Visit Diagnoses Not on filedocumented in this encounter Care Teams Bridge Welder Relationship Specialty Start Date End Date Adrienne March DO [address] [place] [facility] [place] [place] [address] PCP - General Family Practice 06/30/10 documented as of this encounter
--- OUTSIDE RECORDS SUMMARY | 2025-06-20 15:28 | XMS_ITS | Encounter Summary ---
Author Organization [facility] Address [address] [place] [address] Care Team Providers Care Mechanical Detailer Name Role Phone Adrienne March DO Primary Care Provider Encounter Details Date Type Department Care Team (Latest Contact Info) Description 09/26/1999 Outpatient Historical [facility] Umang Urrutia MD [address] [place] [address] Hypopotassemia (Primary Dx); Encounter for long-term (current) use of other medications; Pain in joint, multiple sites; Other and unspecified hyperlipidemia; Other abnormal blood chemistry Social History Tobacco Use Types Packs/Day Years Used Date Smoking Tobacco: Never Assessed Comments Unknown Sex and Gender Information Value Date Recorded Sex Assigned at Not on file Legal Sex Female 3:34 AM PARALEGAL SUPERVISOR Gender Identity Not on file Sexual Orientation Not on file documented as of this encounter Plan of Treatment Not on file documented as of this encounter Visit Diagnoses Diagnosis Hypopotassemia- Primary Encounter for long-term (current) use of other medications Pain in joint, multiple sites Other and unspecified hyperlipidemia Other abnormal blood chemistry documented in this encounter Care Teams Mechanical Detailer Relationship Specialty Start Date End Date Adrienne March DO [address] [place] [address] PCP - General Family Practice 06/30/10 documented as of this encounter
--- OUTSIDE RECORDS SUMMARY | 2025-06-20 15:28 | XMS_ITS | Encounter Summary ---
Author Organization [facility] Address [address] [place] [address] Care Team Providers Care Order Schedule Clerk Name Role Phone Adrienne March DO Primary Care Provider +1- [phone] Encounter Details Date Type Department Care Team (Latest Contact Info) Description 03/18/2001 Outpatient [facility] Podiatry-[facility] [place] [address] [place] [address] Abel Hurtado, DPM NO ADDRESS ON FILE Calcaneal spur (Primary Dx) Social History Tobacco Use Types Packs/Day Years Used Date Smoking Tobacco: Never Assessed Comments Unknown Sex and Gender Information Value Date Recorded Sex Assigned at Not on file Legal Sex Female 3:34 AM TOP SPOTTER Gender Identity Not on file Sexual Orientation Not on file documented as of this encounter Plan of Treatment Not on file documented as of this encounter Visit Diagnoses Diagnosis Calcaneal spur- Primary documented in this encounter Care Teams Order Schedule Clerk Relationship Specialty Start Date End Date Adrienne March DO [address] [place] [address] PCP - General Family Practice 06/30/10 documented as of this encounter
--- OUTSIDE RECORDS SUMMARY | 2025-06-20 15:28 | XMS_ITS | Encounter Summary ---
Author Organization [facility] Address [address] [place] [address] Care Team Providers Care Glost Kiln Operator Name Role Phone Adrienne March DO Primary Care Provider Encounter Details Date Type Department Care Team (Latest Contact Info) Description 02/18/2001 Outpatient Historical [facility] ([facility]3] Internal Medicine- [address] [place] [phone] Umang Urrutia MD [address] [place] [address] Type II or unspecified type diabetes mellitus without mention of complication, not stated as uncontrolled (Primary Dx); Hypercalcemia Social History Tobacco Use Types Packs/Day Years Used Date Smoking Tobacco: Never Assessed Comments Unknown Sex and Gender Information Value Date Recorded Sex Assigned at Not on file Legal Sex Female 3:34 AM ASPHALT PLANT LABORER Gender Identity Not on file Sexual Orientation Not on file documented as of this encounter Plan of Treatment Not on file documented as of this encounter Visit Diagnoses Diagnosis Type II or unspecified type diabetes mellitus without mention of complication, not stated as uncontrolled- Primary Hypercalcemia documented in this encounter Care Teams Glost Kiln Operator Relationship Specialty Start Date End Date Adrienne March DO [address] [place] [phone] PCP - General Family Practice 06/30/10 documented as of this encounter
--- OUTSIDE RECORDS SUMMARY | 2025-06-20 15:28 | XMS_ITS | Encounter Summary ---
Author Organization [facility] Address [address] [place] [address] Care Team Providers Care Log Chain Worker Name Role Phone Adrienne March DO Primary Care Provider Encounter Details Date Type Department Care Team (Latest Contact Info) Description 11/10/1999 Outpatient Historical [facility] INTER[facility] Umang Urrutia MD [address] [place] [phone] Hypopotassemia (Primary Dx); Unspecified essential hypertension; Encounter for long-term (current) use of other medications Social History Tobacco Use Types Packs/Day Years Used Date Smoking Tobacco: Never Assessed Comments Unknown Sex and Gender Information Value Date Recorded Sex Assigned at Not on file Legal Sex Female 3:34 AM STAMPER BLOCKER Gender Identity Not on file Sexual Orientation Not on file documented as of this encounter Plan of Treatment Not on file documented as of this encounter Visit Diagnoses Diagnosis Hypopotassemia- Primary Unspecified essential hypertension Encounter for long-term (current) use of other medications documented in this encounter Care Teams Log Chain Worker Relationship Specialty Start Date End Date Adrienne March DO [address] [place] [address] PCP - General Family Practice 06/30/10 documented as of this encounter
--- OUTSIDE RECORDS SUMMARY | 2025-06-20 15:28 | XMS_ITS | Encounter Summary ---
Author Organization [facility] Address [address] [place] [address] Care Team Providers Care Architecture Consultant Name Role Phone Adrienne March DO Primary Care Provider Encounter Details Date Type Department Care Team (Latest Contact Info) Description 03/02/2005 Outpatient Historical [facility] Orthopedics- [address] [place] [address] Josse Ferguson MD NO ADDRESS ON FILE FX FEMUR SHAFT-CLOSED (CMS/HCC) (Primary Dx); FX LOW RADIUS W ULNA-CLOSE Social History Tobacco Use Types Packs/Day Years Used Date Smoking Tobacco: Never Assessed Comments Unknown Sex and Gender Information Value Date Recorded Sex Assigned at Not on file Legal Sex Female 3:34 AM NUCLEAR UNIT OPERATOR Gender Identity Not on file Sexual Orientation Not on file documented as of this encounter Plan of Treatment Not on file documented as of this encounter Visit Diagnoses Diagnosis Closed fracture of shaft of femur- Primary Closed fracture of lower end of radius with ulna documented in this encounter Care Teams Architecture Consultant Relationship Specialty Start Date End Date Adrienne March DO [address] [place] [address] PCP - General Family Practice 06/30/10 documented as of this encounter
--- OUTSIDE RECORDS SUMMARY | 2025-06-20 15:28 | XMS_ITS | Encounter Summary ---
Author Organization [facility] Address [address] [place]illo: [place] [address] Care Team Providers Care General Repairer Name Role Phone Adrienne March DO Primary Care Provider +[phone]- [phone] Encounter Details Date Type Department Care Team (Late st Contact Info) Description 09/26/1999 Outpatient Historical Umang Urrutia MD [address] [place] [address] Social History Tobacco Use Types Packs/Day Years Used Date Smoking Tobacco: Never Assessed Comments Unknown Sex and Gender Information Value Date Recorded Sex Assigned at Not on file Legal Sex Female 3:34 AM FRAMEMAN Gender Identity Not on file Sexual Orientation Not on file documented as of this encounter Plan of Treatment Not on file documented as of this encounter Visit Diagnoses Not on filedocumented in this encounter Care Teams General Repairer Relationship Specialty Start Date End Date Adrienne March DO [address] [place] [address] PCP - General Family Practice 06/30/10 documented as of this encounter
--- OUTSIDE RECORDS SUMMARY | 2025-06-20 15:28 | XMS_ITS | Encounter Summary ---
Author Organization [facility] Address [address] [place] [address] Care Team Providers Care Television Script Writer Name Role Phone Adrienne March DO Primary Care Provider Encounter Details Date Type Department Care Team (Latest Contact Info) Description 01/08/2004 Outpatient Historical [facility] [address] [place] [address] Jose Luis Mcmillan MD [address] [place] [address] CERVICALGIA (Primary Dx); Cervical spondylosis Social History Tobacco Use Types Packs/Day Years Used Date Smoking Tobacco: Never Assessed Comments Unknown Sex and Gender Information Value Date Recorded Sex Assigned at Not on file 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
--- OUTSIDE RECORDS SUMMARY | 2025-06-20 15:28 | XMS_ITS | Clinical Summary ---
Author Organization [facility] Address [address] [place] [address] Care Team Providers Care Senior Principal Architect Name Role Phone Adrienne March Primary Care Provider Allergies Active Allergy Reactions Criticality Noted Date Comments Adhesive Tape-Silicones Rash Low 09/05/2020 Amoxicillin-Pot Clavulanate Diarrhea,Abdominal Pain Medium 09/07/2008 Codeine Unknown 04/09/2009 Semaglutide Other (See Comments) 07/13/2018 just didn't feel good Silver Sulfadiazine Swelling Low 12/29/2013 Medications fluticasone (FLONASE) 50 mcg/spray Howe, SuspensionIndica tions:Acute non-recurrent maxillary sinusitis SHAKE LIQUID [...] (NexIUM) 20 mg Capsule, Delayed Release(E.C.)Ind ications:Epigast ejssy pain TAKE 1 CAPSULE BY MOUTH DAILY BEFORE BREAKFAST 90 Capsule 4 0 Active cetirizine (ZyrTEC) 10 mg tabletIndication s:Viral upper respiratory infection TAKE 1 TABLET(10 MG) BY MOUTH DAILY 30 Tablet 11 0 Active blood sugar diagnostic (GI-Viewuch Ultra Blue Test Strip) Strip USE TO [...] TAKE 1 TABLET(125 MCG) BY MOUTH DAILY COLLEGE SPECIALIST 90 Tablet 1 Active potassium chloride (KLOR-CON) [...] file 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 Gender Identity Not on file Sexual [...] - 1-dose 75+ series) 2022 [place] Preventative Visit/Annual Wellness Visit 09/20/2024 12/23/2020, 05/23/2020, 04/14/2019, Additional history exists DIABETES ANNUAL RETINAL EXAM 03/30/202507/2024, 06/04/2020, 01/11/2018, Additional history exists INFLUENZA VACCINE (#1) 2025 0, 05/21/2019, 05/04/2019, Additional history exists COVID-19 Vaccine (2 - 2024-2 6 season) 2025 01/29/2021 DTAP/TDAP/TD VACCINES (3 - T d or Tdap) 06/12/2026 06/12/2016, 07/22/2015, 11/10/2006, Additional history exists COLORECTAL SCREENING Discontinued 04/01/2010 (Previously completed), 07/16/2009 (Declined) FIT/FOBT Q 1 year Discontinued 08/01/2015 PNEUMOCOCCAL VACCINE 50+ YEARS Completed 0 01/11/2017, 10/24/2014, 10/24/2014, Additional history exists Colorectal Cancer Screening Discontinued FIT-DNA Q 3 years Discontinued 05/17/2019 Flex Sig/CT Colonography Q 5 years Discontinued Medical Devices Implanted Type Area Bait Man Device Identifier Shelf Expiration Date Model / Serial / Lot Cement Simplex Hvisc 6194-1-010 - [id number] Implanted:01/2020 by Marco A Lewis MD at [facility] (Quantity not on file) Cement Left: Knee JAMSHID- Tugg[employer] INT INC [id number] 03/19/2021 6194-1-010 / / [id number] Cement Simplex Hvisc 6194-1-010 - [id number] Implanted:01/2020 by Marco A Lewis MD at [facility] (Quantity not on file) Cement Left: Knee JAMSHID- HOWMEDICA INT INC [id number] 03/19/2021 6194-1-010 / / [id number] Hemostatic Surgifoam 1gm 1977 - [id number] Implanted:Qty : 1 on 06/21/2020 by Jan Hoffman MD at [facility] Hemostatic N/A: Back J&J- ETHICON INC [id number] 10/26/20211977 / / [id number] Insert Attune Fb Cr Sz4 6mm 1516-20-406 - [id number] Implanted:Qty : 1 on 11/23/2019 by Marco A Lewis MD at [facility] Knee Left: Knee J&J- DE[employer]Y OR[employer] [id number] 03/19/2023 [id number] / / [id number] Comp Fem Attune Cr Cmnt Sz4 1504-00-104 - [id number] Implanted:Qty : 1 on 11/23/2019 by Marco A Lewis MD at [facility] Knee Left: Knee J&J- [employer] [id number] 09/19/2029 [id number] / / [id number] Comp Tib Attune Fb Cmnt Sz5 1506-70-005 - [id number] Implanted:Qty : 1 on 11/23/2019 by Marco A Lewis MD at [facility] Knee Left: Knee J&J- [employer] [id number] 08/19/2029 [id number] / / [id number] Vince Solera Crv Ti 5.5x30mm [id number] - [id number] Implanted:Qty : 2 on 06/21/2020 by Jan Hoffman MD at [facility] Vince N/A: Back MEDTRONIC- SOFAMOR DANEK 06/21/2021 [id number] / / [id number] Screw Solera 5.5/6.0 Breakoff [id number] - [id number] Implanted:Qty : 4 on 06/21/2020 by Jan Hoffman MD at [facility] Screw N/A: Back [employer]- SOFAMOR DANEK 06/21/2021 [id number] / / [id number] Screw Cdh 6.5x45mm 5.5/6.0 Mas Cc [id number] - [id number] Implanted:Qty : 2 on 06/21/2020 by Jan Hoffman MD at [facility] Screw N/A: Back [employer]- SOFAMOR DANEK 06/21/2021 [id number] / / [id number] Screw Cdh 6.5x35mm 5.5/6.0 Mas Cc [id number] - [id number] Implanted:Qty : 2 on 06/21/2020 by Jan Hoffman MD at [facility] Screw N/A: Back [employer]- SOFAMOR DANEK 06/21/2021 [id number] / / [id number] Putty Dbx Dbm 1ml [id number] - [id number] Implanted:Qty : 1 on 06/21/2020 by Jan Hoffman MD at [facility] Tissue N/A: Back MUSCULOSKELETAL TRANSPLANT FOU 07/21/2021 [id number] / [id number] Readigraft Canc Chips 15ml Can15 14bp - [id number] Implanted:Qty : 1 on 06/21/2020 by Jan Hoffman MD at [facility] Tissue N/A: Back LIFENET 08/07/2024 CAN15 14BP / / [id number] Procedures Procedure Name Priority Date/Time Associated Diagnosis Comments DIABETES FOOT EXAM Routine 12/23/2020 DIABETES EYE EXAM Routine 06/04/2020 LIPID PANEL Routine 05/23/2020 10:48 AM CDT Type 2 diabetes mellitus with diabetic peripheral angiopathy without gangrene, without long-term current use of insulin ([facility]) HEMOGLOBIN A1C Routine 05/23/2020 10:48 AM CDT Type 2 diabetes mellitus with diabetic peripheral angiopathy without gangrene, without long-term current use of insulin ([facility]) COLON CANCER SCREEN, STOOL DNA Routine 05/17/2019 4:15 PM CDT Screening for colon cancer MICROALBUMIN/CREATIN INE RATIO, RANDOM UR Routine 10/10/2018 9:52 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 Type 2 diabetes mellitus with diabetic peripheral angiopathy without gangrene, without long-term current use of insulin ([facility]) POC OCCULT BLOOD UP TO 3 CARDS Routine 08/01/2015 5:24 PM SCHOOL AGE TEACHER Screen for colon cancer XR DEXA BONE DENSITY AXIAL 1 OR MORE SITES Routine 07/30/2015 1:58 PM SCHOOL AGE TEACHER Postmenopausal atrophic vaginitis from Last 3 Months or Most Recently Relevant to Health Maintenance Results * DIABETES FOOT EXAM (12/23/2020) us Adrienne March DO HEALTH MAINTENANCE Edited R esult - Final * DIABETES EYE EXAM (06/04/2020) us Abstract Spg Provider HEALTH MAINTENANCE Final R esult * (ABNORMAL) HEMOGLOBIN A1C (05/23/2020 10:48 AM CDT) HEMOGLOBIN A1C 7.1(H) See Comment % 05/23/2020 8:25 PM CDT [facility] EST. AVG GLUCOSE, A1C 157 mg/dL 05/23/2020 8:25 PM CDT [facility] Blood Venipuncture / Unknown 05/23/2020 10:48 AM CDT 05/23/2020 7:56 PM CDT Narrative [facility] - 05/23/2020 8:25 PM CDT HGB A1C INTERPRETATION NORMAL: <5.7% PRE-DIABETES: 5.7 - 6.4% DIABETES: 6.5% OR GREATER Falsely low A1C measurements can occur when: 1. Anemia and/or hemolytic anemia is present. 2. Hemoglobin variants present. 3. Renal failure. 4. Transfusion of blood product in the last 120 days. We recommend ordering a fructosamine test([id number]) to more accurately assess glycemic status if any of the above conditions are present. Adrienne March DO CHEMISTRY ORDERABLES Final Result [facility] CLIA# [id number] [address] [place] [address] * (ABNORMAL) LIPID PANEL (05/23/2020 10:48 AM CDT) [facility] CHOLESTEROL 215(H) <200 mg/dL 05/23/2020 9:06 PM CDT [facility] TRIGLYCERIDE 175(H) <150 mg/dL 05/23/2020 9:06 PM CDT [facility] HDL 83(H) 40 - 59 mg/dL 05/23/2020 9:06 PM CDT [facility] LDL CALCULATED 97 <100 mg/dL 05/23/2020 9:06 PM CDT [facility] NON-HDL CHOLESTEROL 132(H) <130 mg/dL 05/23/2020 9:06 PM CDT [facility] Blood Venipuncture / Unknown 05/23/2020 10:48 AM CDT 05/23/2020 7:56 PM CDT Narrative [facility] - 05/23/2020 9:06 PM [...] Adrienne March DO CHEMISTRY ORDERABLES Final Result [facility]# [id number] [facility] [place] [address] * COLON CANCER SCREEN, STOOL DNA (05/17/2019 4:15 PM CDT) COLOGUARD RESULT Negative Not Applicable [facility] Comment: A negative result indicates [...] Contreras. et al, N Engl J Med 2014;370(14):7535-8527) COLOGUARD RE-SCREENING RECOMMENDATION: Periodic routine colorectal cancer screening is an important part of preventive healthcare for asymptomatic persons at average risk for colorectal cancer. Following a negative Cologuard result, the [place] Cancer Society and U.S. Multi-Society Task Force screening guidelines recommend a Cologuard re-screening interval of 3 years. References: [place] Cancer Society (ACS). Colorectal cancer prevention and early detection. [place], [place]: [place] [employer] Society; [updated 2015Jan 11]. https://www.cancer.org/cancer/aeahf-mfyouh-oefugi/bshcwdaql-qaoaiqibr-xhxsqnv/ac s-rec ommendations.html. Accessed May 20, 2018; Héctor BAUM, Marleny JURADO, Cruzito BRADLEY, Colorectal Cancer Screening: Recommendations for Physicians and Patients from the U.S. Multi-Society Task Force on Colorectal Cancer Screening, Am J Gastroenterology 2017; 112:3609-6327. Test Type: Composite algorithmic analysis of stool [...] can be accessed at the following location: www.[employer]/results. Additional description of the Cologuard test process, warnings and precautions can be found at www.cologuardtest.com. Rx Only. Stool STOOL SPECIMEN / Unknown 05/17/2019 4:15 PM CDT 05/18/2019 11:04 PM CDT Adrienne March DO BODY FLUIDS AND STOOLS Rosetta terrazas Result [facility] CLIA # [id number] [address], [address] [place] [address] * (ABNORMAL) MICROALBUMIN/CREATININE RATIO, RANDOM UR (10/10/2018 9:52 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) MICROALBUMIN, URINE 24.1 No Reference Range mg/dL 10/10/2018 9:10 PM SCHOOL AGE TEACHER [facility] CREATININE, URINE 35.8 29.0 - 226.0 mg/dL 10/10/2018 9:10 PM SCHOOL AGE TEACHER [facility] Comment: Reference Range varies with fluid intake and diet. MICROALBUMIN/ CREAT RATIO, UR 673.2(H) <25.0 mg/g 10/10/2018 9:10 PM SCHOOL AGE TEACHER [facility] Urine URINE SPECIMEN OBTAINED BY CLEAN CATCH PROCEDURE / Unknown Collection / Unknown 10/10/2018 9:52 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 10/10/2018 7:34 PM SCHOOL AGE TEACHER Narrative [facility] - 10/10/2018 9:10 PM SCHOOL AGE TEACHER Condition Microalbumin/Creat ratio Normal Males <17 Normal Females <25 Microalbuminuria Males 17-299 Microalbuminuria Females 25-299 Overt proteinuria >=300 Raissa Hernández HAMMER SHOP SUPERVISOR URINE ORDERABLES Final R esult Performing Organization Address [facility] Co de Phone Number [facility] CLIA# [id number] [address] [place] [address] * (ABNORMAL) POC OCCULT BLOOD UP TO 3 CARDS (08/01/2015 5:24 PM SCHOOL AGE TEACHER) OCCULT BLOOD #1 Positive(A ) Negative [facility] OCCULT BLOOD #2 Positive(A ) Negative [facility] OCCULT BLOOD #3 Positive(A ) Negative [facility] Stool specimen (specimen) 08/01/2015 5:24 PM SCHOOL AGE TEACHER Deanne Banks HAMMER SHOP SUPERVISOR POINT OF CARE TESTING Final R esult Performing Organization Address [facility] Co de Phone Number [facility] CLIA# [id number] [address] [place] [address] * XR DEXA BONE DENSITY AXIAL 1 OR MORE SITES (07/30/2015 1:58 PM SCHOOL AGE TEACHER) Anatomical Region Laterality Modality Digital Radiogra phy 07/30/2015 1:48 PM SCHOOL AGE TEACHER Narrative 07/31/2015 8:08 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 PROCEDURE DEXA BONE DENSITY, 30 July 2015 [...] Relevant to Health Maintenance Insurance MEDICAID [place] [facility] RX [facility] Medicare Part D RX [employer] PL[employer] (INTERNAL) [facility] Internal Plans Advance Directives For more information, please contact: [phone] * Full Code (Latest Code Status on File) Date Activated Date Inactivated Comments 06/21/2020 9:47 AM 06/23/2020 4:07 PM * Full Code Date Activated Date Inactivated Comments 11/23/2019 4:04 PM 11/25/2019 4:08 PM * Full Code Date Activated Date Inactivated Comments 11/23/2019 9:11 AM 11/23/2019 4:04 PM Care Teams Senior Principal Architect Relationship Specialty Start Date End Date Adrienne March DO [address] [place] [address] PCP - General Family Practice 06/30/10
--- OUTSIDE RECORDS SUMMARY | 2025-06-20 15:28 | XMS_ITS | Encounter Summary ---
Author Organization [facility] Address [address] [place] [address] Care Team Providers Care Receiving Team Member Name Role Phone Adrienne March DO Primary Care Provider Encounter Details Date Type Department Care Team (Latest Contact Info) Description 04/15/2005 Outpatient Historical [facility] Orthopedics- 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
--- OUTSIDE RECORDS SUMMARY | 2025-06-20 15:28 | XMS_ITS | Encounter Summary ---
Author Organization [facility] Address [address] [place] [address] Care Team Providers Care Plastics Process Hand Name Role Phone Adrienne March DO Primary Care Provider [phone]- [phone] Encounter Details Date Type Department Care Team (Latest Contact Info) Description 03/06/2004 Outpatient [facility] [place] [address] [place] [address] Abel Hurtado, MARCE NO ADDRESS ON FILE Plantar fibromatosis (Primary Dx); CALCANEAL SPUR; DIFFICULTY IN WALKING Social History Tobacco Use Types Packs/Day Years Used Date Smoking Tobacco: Never Assessed Comments Unknown Sex and Gender Information Value Date Recorded Sex Assigned at Not on file 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
--- OUTSIDE RECORDS SUMMARY | 2025-06-20 15:28 | XMS_ITS | Encounter Summary ---
Author Organization [facility] Address [address] [place] [address] Care Team Providers Care Male Infertility Specialist Name Role Phone AncaAdrienne forbes Primary Care Provider [phone] Encounter Details Date Type Department Care Team (Late st Contact Info) Description 01/26/2005 Inpatient Historical HIS IN BED Nakul Nino MD [address] [phone] FX FEMUR SHAFT-CLOSED (CMS/HCC) (Primary Dx) Social History Tobacco Use Types Packs/Day Years Used Date Smoking Tobacco: Never Assessed Comments Unknown Sex and Gender Information Value Date Recorded Sex Assigned at Not on file 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 Gender Identity Not on file Sexual [...] CARE TESTING Final Result Performing Organization Address [facility] Co de Phone Number INTERFACE SYSTEM Refer to clinic/hospital department * (ABNORMAL) POC GLUCOSE (02/02/2005 6:32 AM CDT) GLUCOSE POC 105(H) 60 - 100 mg/dL INTERFACE SYSTEM 02/02/2005 6:32 AM CDT us Nakul Nino MD POINT OF CARE TESTING Final Result Performing Organization Address [facility] Phone Number INTERFACE SYSTEM Refer to clinic/hospital department * POC GLUCOSE (02/01/2005 9:17 PM CDT) GLUCOSE POC 95 60 - 100 mg/dL INTERFACE SYSTEM 02/01/2005 9:17 PM CDT Result Carrie Nino MD POINT OF CARE TESTING Final Result Performing Organization Address [facility] Co de Phone Number INTERFACE SYSTEM Refer to clinic/hospital department * POC GLUCOSE (02/01/2005 4:55 PM CDT) GLUCOSE POC 85 60 - 100 mg/dL INTERFACE SYSTEM 02/01/2005 4:55 PM CDT Result Carrie Nino MD POINT OF CARE TESTING Final Result Performing Organization Address [facility] de Phone Number INTERFACE SYSTEM Refer to clinic/hospital department * POC GLUCOSE (02/01/2005 11:51 AM CDT) GLUCOSE POC 96 60 - 100 mg/dL INTERFACE SYSTEM 02/01/2005 11:5 1 AM CDT Nakul Nino MD POINT OF CARE TESTING Final Result Performing Organization Address [facility] de Phone Number INTERFACE SYSTEM Refer to clinic/hospital department * (ABNORMAL) POC GLUCOSE (02/01/2005 5:40 AM CDT) GLUCOSE POC 118(H) 60 - 100 mg/dL INTERFACE SYSTEM 02/01/2005 5:40 AM CDT Nakul Nino MD POINT OF CARE TESTING Final Result Performing Organization Address [facility] Phone Number INTERFACE SYSTEM Refer to clinic/hospital department * (ABNORMAL) POC GLUCOSE (01/31/2005 9:34 PM CDT) GLUCOSE POC 108(H) 60 - 100 mg/dL INTERFACE SYSTEM 01/31/2005 9:34 PM CDT Nakul Nino MD POINT OF CARE TESTING Final Result Performing Organization Address [facility] Phone Number INTERFACE SYSTEM Refer to clinic/hospital department * POC GLUCOSE (01/31/2005 4:59 PM CDT) GLUCOSE POC 93 60 - 100 mg/dL INTERFACE SYSTEM 01/31/2005 4:59 PM CDT us Nakul Nino MD POINT OF CARE TESTING Final Result Performing Organization Address [facility] Co de Phone Number INTERFACE SYSTEM Refer to clinic/hospital department * POC GLUCOSE (01/31/2005 11:04 AM CDT) GLUCOSE POC 100 60 - 100 mg/dL INTERFACE SYSTEM 01/31/2005 11:0 4 AM CDT us Nakul Nino MD POINT OF CARE TESTING Final Result Performing Organization Address [facility] Co de Phone Number INTERFACE SYSTEM Refer to clinic/hospital department * (ABNORMAL) POC GLUCOSE (01/31/2005 5:41 AM CDT) GLUCOSE POC 106(H) 60 - 100 mg/dL INTERFACE SYSTEM 01/31/2005 5:41 AM CDT us Nakul Nino MD POINT OF CARE TESTING Final Result Performing Organization Address [facility] Phone Number INTERFACE SYSTEM Refer to clinic/hospital department * (ABNORMAL) POC GLUCOSE (01/30/2005 8:52 PM CDT) GLUCOSE POC 169(H) 60 - 100 mg/dL INTERFACE SYSTEM 01/30/2005 8:52 PM CDT us Nakul Nino MD POINT OF CARE TESTING Final Result Performing Organization Address [facility] Phone Number INTERFACE SYSTEM Refer to clinic/hospital department * POC GLUCOSE (01/30/2005 6:02 PM CDT) GLUCOSE POC 82 60 - 100 mg/dL INTERFACE SYSTEM 01/30/2005 6:02 PM CDT us Nakul Nino MD POINT OF CARE TESTING Final Result Performing Organization Address [facility] Co de Phone Number INTERFACE SYSTEM Refer to clinic/hospital department * (ABNORMAL) POC GLUCOSE (01/30/2005 10:54 AM CDT) GLUCOSE POC 126(H) 60 - 100 mg/dL INTERFACE SYSTEM 01/30/2005 10:5 4 AM CDT us Nakul Nino MD POINT OF CARE TESTING Final Result Performing Organization Address [facility] de Phone Number INTERFACE SYSTEM [...] ORDERABLES Final R esult Performing Organization Address [facility] de Phone Number INTERFACE SYSTEM [...] HEMATOLOGY ORDERABLES Final Result Performing Organization Address [facility] Phone Number INTERFACE SYSTEM Refer to clinic/hospital department * (ABNORMAL) POC GLUCOSE (01/30/2005 5:20 AM CDT) GLUCOSE POC 132(H) 60 - 100 mg/dL INTERFACE SYSTEM 01/30/2005 5:20 AM CDT Nakul Nino MD POINT OF CARE TESTING Final Result Performing Organization Address [facility] Phone Number INTERFACE SYSTEM Refer to clinic/hospital department * (ABNORMAL) POC GLUCOSE (01/29/2005 8:52 PM CDT) GLUCOSE POC 149(H) 60 - 100 mg/dL INTERFACE SYSTEM 01/29/2005 8:52 PM CDT Nakul Nino MD POINT OF CARE TESTING Final Result Performing Organization Address [facility] Phone Number INTERFACE SYSTEM Refer to clinic/hospital [...] CARE TESTING Final Result Performing Organization Address [facility] de Phone Number INTERFACE SYSTEM [...] HEMATOLOGY ORDERABLES Final Result Performing Organization Address [facility] Phone Number INTERFACE SYSTEM Refer to clinic/hospital [...] ORDERABLES Final R esult Performing Organization Address [facility] Phone Number INTERFACE SYSTEM Refer to clinic/hospital department * (ABNORMAL) POC GLUCOSE (01/29/2005 6:03 AM CDT) GLUCOSE POC 202(H) 60 - 100 mg/dL INTERFACE SYSTEM 01/29/2005 6:03 AM CDT Nakul Nino MD POINT OF CARE TESTING Final Result Performing Organization Address [facility] de Phone Number INTERFACE SYSTEM [...] COM Fi nal Result Performing Organization Address [facility] Co de Phone Number INTERFACE SYSTEM [...] CARE TESTING Final Result Performing Organization Address [facility] Phone Number INTERFACE SYSTEM Refer to clinic/hospital department * POC GLUCOSE (01/28/2005 3:07 PM CDT) GLUCOSE POC 91 60 - 100 mg/dL INTERFACE SYSTEM COMMENT POC Follow prtocol INTERFACE SYSTEM 01/28/2005 3:07 PM CDT Nakul Nino MD POINT OF CARE TESTING Final Result Performing Organization Address [facility] Phone Number INTERFACE SYSTEM Refer to clinic/hospital department * (ABNORMAL) HEMOGLOBIN A1C (01/28/2005 1:50 PM CDT) HEMOGLOBIN A1C 8.2(H) 4.0 - 6.0 %A1C INTERFACE SYSTEM 01/28/2005 1:50 PM CDT Nakul Nino MD CHEMISTRY ORDERABLES Final R esult Performing Organization Address [facility] Phone Number INTERFACE SYSTEM Refer to clinic/hospital department * (ABNORMAL) POC GLUCOSE (01/28/2005 12:53 PM CDT) GLUCOSE POC 121(H) 60 - 100 mg/dL INTERFACE SYSTEM COMMENT POC Follow prtocol INTERFACE SYSTEM 01/28/2005 12:5 3 PM CDT Nakul Nino MD POINT OF CARE TESTING Final Result Performing Organization Address [facility] Phone Number INTERFACE SYSTEM Refer to clinic/hospital department * (ABNORMAL) POC GLUCOSE (01/28/2005 12:11 PM CDT) GLUCOSE POC 134(H) 60 - 100 mg/dL INTERFACE SYSTEM COMMENT POC Follow prtocol INTERFACE SYSTEM 01/28/2005 12:1 1 PM CDT Nakul Nino MD POINT OF CARE TESTING Final Result Performing Organization Address [facility] Co de Phone Number INTERFACE SYSTEM Refer to clinic/hospital department * (ABNORMAL) POC GLUCOSE (01/28/2005 7:55 AM CDT) GLUCOSE POC 121(H) 60 - 100 mg/dL INTERFACE SYSTEM COMMENT POC Follow prtocol INTERFACE SYSTEM 01/28/2005 7:55 AM CDT Nakul Nino MD POINT OF CARE TESTING Final Result Performing Organization Address [facility] de Phone Number INTERFACE SYSTEM Refer to clinic/hospital department * (ABNORMAL) POC GLUCOSE (01/28/2005 7:08 AM CDT) GLUCOSE POC 146(H) 60 - 100 mg/dL INTERFACE SYSTEM COMMENT POC Follow prtocol INTERFACE SYSTEM 01/28/2005 7:08 AM CDT Nakul Nino MD POINT OF CARE TESTING Final Result Performing Organization Address [facility] de Phone Number INTERFACE SYSTEM Refer to clinic/hospital department * (ABNORMAL) POC GLUCOSE (01/28/2005 6:00 AM CDT) GLUCOSE POC 132(H) 60 - 100 mg/dL INTERFACE SYSTEM 01/28/2005 6:00 AM CDT Nakul Nino MD POINT OF CARE TESTING Final Result Performing Organization Address [facility] Co de Phone Number INTERFACE SYSTEM Refer to clinic/hospital department * (ABNORMAL) POC GLUCOSE (01/28/2005 2:41 AM CDT) GLUCOSE POC 127(H) 60 - 100 mg/dL INTERFACE SYSTEM 01/28/2005 2:41 AM CDT Nakul Nino MD POINT OF CARE TESTING Final Result Performing Organization Address [facility] Co de Phone Number INTERFACE SYSTEM Refer to clinic/hospital department * (ABNORMAL) POC GLUCOSE (01/28/2005 1:18 AM CDT) GLUCOSE POC 124(H) 60 - 100 mg/dL INTERFACE SYSTEM 01/28/2005 1:18 AM CDT Nakul Nino MD POINT OF CARE TESTING Final Result Performing Organization Address [facility] de Phone Number INTERFACE SYSTEM Refer to clinic/hospital department * (ABNORMAL) POC GLUCOSE (01/28/2005 12:20 AM CDT) GLUCOSE POC 128(H) 60 - 100 mg/dL INTERFACE SYSTEM 01/28/2005 12:2 0 AM CDT Nakul Nino MD POINT OF CARE TESTING Final Result Performing Organization Address [facility] Phone Number INTERFACE SYSTEM Refer to clinic/hospital department * (ABNORMAL) POC GLUCOSE (01/27/2005 11:07 PM CDT) GLUCOSE POC 138(H) 60 - 100 mg/dL INTERFACE SYSTEM 01/27/2005 11:0 7 PM CDT Nakul Nino MD POINT OF CARE TESTING Final Result Performing Organization Address [facility] Phone Number INTERFACE SYSTEM Refer to clinic/hospital department * (ABNORMAL) POC GLUCOSE (01/27/2005 10:14 PM CDT) GLUCOSE POC 139(H) 60 - 100 mg/dL INTERFACE SYSTEM 01/27/2005 10:1 4 PM CDT Nakul Nino MD POINT OF CARE TESTING Final Result Performing Organization Address [facility] Co de Phone Number INTERFACE SYSTEM Refer to clinic/hospital department * (ABNORMAL) POC GLUCOSE (01/27/2005 9:18 PM CDT) GLUCOSE POC 184(H) 60 - 100 mg/dL INTERFACE SYSTEM 01/27/2005 9:18 PM CDT Nakul Nino MD POINT OF CARE TESTING Final Result Performing Organization Address [facility] Phone Number INTERFACE SYSTEM Refer to clinic/hospital department * (ABNORMAL) POC GLUCOSE (01/27/2005 7:36 PM CDT) GLUCOSE POC 229(H) 60 - 100 mg/dL INTERFACE SYSTEM 01/27/2005 7:36 PM CDT Nakul Nino MD POINT OF CARE TESTING Final Result Performing Organization Address [facility] Phone Number INTERFACE SYSTEM Refer to clinic/hospital department * (ABNORMAL) POC GLUCOSE (01/27/2005 5:58 PM CDT) GLUCOSE POC 121(H) 60 - 100 mg/dL INTERFACE SYSTEM COMMENT POC Follow prtocol INTERFACE SYSTEM 01/27/2005 5:58 PM CDT Nakul Nino MD POINT OF CARE TESTING Final Result Performing Organization Address [facility] Phone Number INTERFACE SYSTEM Refer to clinic/hospital department * (ABNORMAL) POC GLUCOSE (01/27/2005 5:08 PM CDT) GLUCOSE POC 106(H) 60 - 100 mg/dL INTERFACE SYSTEM COMMENT POC Follow prtocol INTERFACE SYSTEM 01/27/2005 5:08 PM CDT us Nakul Nino MD POINT OF CARE TESTING Final Result Performing Organization Address [facility] de Phone Number INTERFACE SYSTEM Refer to clinic/hospital department * POC GLUCOSE (01/27/2005 4:31 PM CDT) GLUCOSE POC 85 60 - 100 mg/dL INTERFACE SYSTEM COMMENT POC Follow prtocol INTERFACE SYSTEM 01/27/2005 4:31 PM CDT us Nakul Nino MD POINT OF CARE TESTING Final Result Performing Organization Address [facility] Phone Number INTERFACE SYSTEM Refer to clinic/hospital department * POC GLUCOSE (01/27/2005 3:02 PM CDT) GLUCOSE POC 84 60 - 100 mg/dL INTERFACE SYSTEM COMMENT POC Follow prtocol INTERFACE SYSTEM 01/27/2005 3:02 PM CDT Nakul Nino MD POINT OF CARE TESTING Final Result Performing Organization Address [facility] Phone Number INTERFACE SYSTEM Refer to clinic/hospital department * POC GLUCOSE (01/27/2005 2:14 PM CDT) GLUCOSE POC 94 60 - 100 mg/dL INTERFACE SYSTEM COMMENT POC Follow prtocol INTERFACE SYSTEM 01/27/2005 2:14 PM CDT us Nakul Nino MD POINT OF CARE TESTING Final Result Performing Organization Address [facility] Phone Number INTERFACE SYSTEM Refer to clinic/hospital department * POC GLUCOSE (01/27/2005 12:57 PM CDT) GLUCOSE POC 89 60 - 100 mg/dL INTERFACE SYSTEM 01/27/2005 12:5 7 PM CDT us Nakul Nino MD POINT OF CARE TESTING Final Result Performing Organization Address [facility] Phone Number INTERFACE SYSTEM Refer to clinic/hospital department * (ABNORMAL) POC GLUCOSE (01/27/2005 11:53 AM CDT) GLUCOSE POC 107(H) 60 - 100 mg/dL INTERFACE SYSTEM COMMENT POC Follow prtocol INTERFACE SYSTEM 01/27/2005 11:5 3 AM CDT Nakul Nino MD POINT OF CARE TESTING Final Result Performing Organization Address [facility] Phone Number INTERFACE SYSTEM Refer to clinic/hospital department * (ABNORMAL) POC GLUCOSE (01/27/2005 11:07 AM CDT) GLUCOSE POC 118(H) 60 - 100 mg/dL INTERFACE SYSTEM COMMENT POC Follow prtocol INTERFACE SYSTEM 01/27/2005 11:0 7 AM CDT Nakul Nino MD POINT OF CARE TESTING Final Result Performing Organization Address [facility] Phone Number INTERFACE SYSTEM Refer to clinic/hospital department * (ABNORMAL) POC GLUCOSE (01/27/2005 9:54 AM CDT) GLUCOSE POC 136(H) 60 - 100 mg/dL INTERFACE SYSTEM COMMENT POC Follow prtocol INTERFACE SYSTEM 01/27/2005 9:54 AM CDT Nakul Nino MD POINT OF CARE TESTING Final Result Performing Organization Address [facility] Phone Number INTERFACE SYSTEM Refer to clinic/hospital department * (ABNORMAL) POC GLUCOSE (01/27/2005 8:06 AM CDT) GLUCOSE POC 176(H) 60 - 100 mg/dL INTERFACE SYSTEM 01/27/2005 8:06 AM CDT Nakul Nino MD POINT OF CARE TESTING Final Result Performing Organization Address [facility] de Phone Number INTERFACE SYSTEM Refer to clinic/hospital department * (ABNORMAL) POC GLUCOSE (01/27/2005 5:45 AM CDT) GLUCOSE POC 207(H) 60 - 100 mg/dL INTERFACE SYSTEM 01/27/2005 5:45 AM CDT Nakul Nino MD POINT OF CARE TESTING Final Result Performing Organization Address [facility] Phone Number INTERFACE SYSTEM Refer to clinic/hospital department * (ABNORMAL) POC GLUCOSE (01/27/2005 4:50 AM CDT) GLUCOSE POC 243(H) 60 - 100 mg/dL INTERFACE SYSTEM 01/27/2005 4:50 AM CDT Nakul Nino MD POINT OF CARE TESTING Final Result Performing Organization Address [facility] Phone Number INTERFACE SYSTEM [...] ORDERABLES Final R esult Performing Organization Address [facility] Phone Number INTERFACE SYSTEM [...] HEMATOLOGY ORDERABLES Final Result Performing Organization Address [facility] de Phone Number INTERFACE SYSTEM [...] CARE TESTING Final Result Performing Organization Address [facility] Phone Number INTERFACE SYSTEM Refer to clinic/hospital department * (ABNORMAL) POC GLUCOSE (01/27/2005 1:55 AM CDT) GLUCOSE POC 369(H) 60 - 100 mg/dL INTERFACE SYSTEM 01/27/2005 1:55 AM CDT Nakul Nino MD POINT OF CARE TESTING Final Result Performing Organization Address [facility] Phone Number INTERFACE SYSTEM Refer to clinic/hospital department * (ABNORMAL) POC GLUCOSE (01/27/2005 12:09 AM CDT) GLUCOSE POC 368(H) 60 - 100 mg/dL INTERFACE SYSTEM 01/27/2005 12:0 9 AM CDT Nakul Nino MD POINT OF CARE TESTING Final Result Performing Organization Address [facility] Phone Number INTERFACE SYSTEM [...] COM Fi nal Result Performing Organization Address [facility] de Phone Number INTERFACE SYSTEM Refer to clinic/hospital department * (ABNORMAL) GLUCOSE LEVEL (01/26/2005 10:19 PM CDT) GLUCOSE 245(H) 70 - 110 mg/dL INTERFACE SYSTEM Comment:Specimen slightly he molyzed. THIS RESULT FROM EDTA TUBE. 01/26/2005 10:1 9 PM CDT Nakul Nino MD CHEMISTRY ORDERABLES Final R esult Performing Organization Address [facility] de Phone Number INTERFACE SYSTEM [...] COM Fi nal Result Performing Organization Address [facility] Phone Number INTERFACE SYSTEM Refer to clinic/hospital [...] Goal INR 3.0; range 2.5 - 3.5 POST-NV Goal INR 2.5; range 2.0 - 3.0 or Goal 3.0; range 2.5 - 3.5 Atrial Fibrillation Goal INR 2.5; range 2.0 - 3.0 Ischemic Stroke Goal INR 2.5; range 2.0 - 3.0 For additional information see Guidelines for Anticoagulation available from the pharmacy Ronit Meredith, Pharm D. 01/26/2005 7:18 PM CDT Flako Blanco MD HEMATOLOGY ORDERABLES Final Result Performing Organization Address [facility] Phone Number INTERFACE SYSTEM Refer to clinic/hospital department * ETHANOL LEVEL (01/26/2005 7:00 PM CDT) ETHANOL <10 <=10 mg/dL INTERFACE SYSTEM 01/26/2005 7:00 PM CDT Flako Blanco MD CHEMISTRY ORDERABLES Final Result Performing Organization Address [facility] de Phone Number INTERFACE SYSTEM [...] Closed fracture of shaft of femur- Primary documented in this encounter Care Teams Male Infertility Specialist Relationship Specialty Start Date End Date Adrienne March DO [address] [place] [address] PCP - General Family Practice 06/30/10 documented as of this encounter
--- OUTSIDE RECORDS SUMMARY | 2025-06-20 15:28 | XMS_ITS | Encounter Summary ---
Author Organization [facility] Address 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 Topic: Medication Request >> Mar 21, 2025 12:31 PM Latisha Garcia wrote: Caller Name: Patient Callback Number: [phone] Medication (Ask patient/caregiver to spell if possible): furosemide (Lasix) 40 mg tablet Note: All medication prescriptions can be requested using one [facility] Preferred Pharmacy: [id number] - [place], [place] - [address], [facility] [address] Call Notes: Patient is totally out of [...] st Contact Info) Description 07/25/2025 10:00 AM RIGGING FOREMAN Office Visit [facility] [address] [place] [phone] Adrienne March, DO [address] [place] [phone] 10/25/2025 1:40 PM RIGGING FOREMAN Office Visit [facility] [address] [place] [phone] Adrienne March, DO [address] [place] [phone] 04/22/2026 1:20 PM CDT Office Visit [facility] [address] [place] [phone] Cori Ochoa, [facility] [address] [facility] [address] [place] [phone] documented as of this encounter Visit Diagnoses Not on filedocumented in this encounter Care Teams Change Control Manager Relationship Specialty Start Date End Date Adrienne March DO [address] [place] [phone] PCP - General Family Practice 06/30/10 documented as of this encounter
--- OUTSIDE RECORDS SUMMARY | 2025-06-20 15:28 | XMS_ITS | Encounter Summary ---
Author Organization [facility] Address [address] [place] [address] Care Team Providers Care Occupational Health Physician Name Role Phone Adrienne March DO Primary Care Provider Encounter Details Date Type Department Care Team (Latest Contact Info) Description 03/26/2005 Outpatient Historical [facility] 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
--- OUTSIDE RECORDS SUMMARY | 2025-06-20 15:28 | XMS_ITS | Encounter Summary ---
Author Organization [facility] Address [address] [place] [address] Care Team Providers Care Production Sampler Name Role Phone Adrienne March DO Primary Care Provider +1- [phone] Encounter Details Date Type Department Care Team (Latest Contact Info) Description 01/06/2005 Outpatient [facility] Podiatry-[facility] [place] [address] [place] [phone] Abel Hurtado, MARCE NO ADDRESS ON FILE CALCANEAL SPUR (Primary Dx); EXOSTOSIS, SITE NOS Social History Tobacco Use Types Packs/Day Years Used Date Smoking Tobacco: Never Assessed Comments Unknown Sex and Gender Information Value Date Recorded Sex Assigned at Not on file 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
--- OUTSIDE RECORDS SUMMARY | 2025-06-20 15:28 | XMS_ITS | Encounter Summary ---
Author Organization [facility] Address [address] [place] [address] Care Team Providers Care Paper Bags Sewing Machine Operator Name Role Phone Adrienne March DO Primary Care Provider Encounter Details Date Type Department Care Team (Latest Contact Info) Description 01/08/2004 Outpatient [facility] [address] [address] Jose Luis Mcmillan MD [address] [place] [address] NEURALGIA/NEURITIS NOS (Primary Dx) Social History Tobacco Use Types Packs/Day Years Used Date Smoking Tobacco: Never Assessed Comments Unknown Sex and Gender Information Value Date Recorded Sex Assigned at Not on file 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
--- OUTSIDE RECORDS SUMMARY | 2025-06-20 15:28 | XMS_ITS | Encounter Summary ---
Author Organization [facility] Address [address] [place] [address] Care Team Providers Care Patient Intake Representative Name Role Phone Adrienne March DO Primary Care Provider Encounter Details Date Type Department Care Team (Latest Contact Info) Description 06/30/2000 Outpatient [facility] Internal Medicine- [address] [place] [phone] Umang Urrutia MD [address] [place] [address] Chest pain, unspecified (Primary Dx); Other and unspecified hyperlipidemia; Hepatitis, unspecified; Abnormal glucose; Pain in limb; Encounter for long-term (current) use of other medications; Edema; Unspecified urinary incontinence Social History Tobacco Use Types Packs/Day Years Used Date Smoking Tobacco: Never Assessed Comments Unknown Sex and Gender Information Value Date Recorded Sex Assigned at Not on file 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
--- OUTSIDE RECORDS SUMMARY | 2025-06-20 15:28 | XMS_ITS | Encounter Summary ---
Author Organization [facility] Address [address] [place] [address] Care Team Providers Care Fish Packer Name Role Phone Adrienne March DO Primary Care Provider Encounter Details Date Type Department Care Team (Late st Contact Info) Description 08/01/[address] 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
--- OUTSIDE RECORDS SUMMARY | 2025-06-20 15:28 | XMS_ITS | Encounter Summary ---
Author Organization [facility] Address [address] [place] [address] Care Team Providers Care Childcare Center Administrator Name Role Phone Adrienne March DO Primary Care Provider Encounter Details Date Type Department Care Team (Latest Contact Info) Description 02/25/2006 Outpatient Historical [facility] Orthopedics- [address] [place] [address] Josse Ferguson MD NO ADDRESS ON FILE Pain in Joint, Pelvic Region and Thigh (Primary Dx) Social History Tobacco Use Types Packs/Day Years Used Date Smoking Tobacco: Never Assessed Comments Unknown Sex and Gender Information Value Date Recorded Sex Assigned at Not on file Legal Sex Female 3:34 AM DIRECTOR OF PHILANTHROPY Gender Identity Not on file Sexual Orientation Not on file documented as of this encounter Plan of Treatment Not on file documented as of this encounter Visit Diagnoses Diagnosis Pain in joint, pelvic region and thigh- Primary documented in this encounter Care Teams Childcare Center Administrator Relationship Specialty Start Date End Date Adrienne March DO [address] [place] [address] PCP - General Family Practice 06/30/10 documented as of this encounter
--- OUTSIDE RECORDS SUMMARY | 2025-06-20 15:28 | XMS_ITS | Encounter Summary ---
Author Organization [facility] Address [address] [place] [address] Care Team Providers Care Criminal Justice Instructor Name Role Phone Adrienne March DO Primary Care Provider +1- [phone] Encounter Details Date Type Department Care Team (Latest Contact Info) Description 03/28/2001 Outpatient [facility] Podiatry-[facility] [place] [address] [place] [address] Abel Hurtado, DPM NO ADDRESS ON FILE Calcaneal spur (Primary Dx) Social History Tobacco Use Types Packs/Day Years Used Date Smoking Tobacco: Never Assessed Comments Unknown Sex and Gender Information Value Date Recorded Sex Assigned at Not on file Legal Sex Female 3:34 AM DIETARY AIDE COOK Gender Identity Not on file Sexual Orientation Not on file documented as of this encounter Plan of Treatment Not on file documented as of this encounter Visit Diagnoses Diagnosis Calcaneal spur- Primary documented in this encounter Care Teams Criminal Justice Instructor Relationship Specialty Start Date End Date Adrienne March DO [address] [place] [address] PCP - General Family Practice 06/30/10 documented as of this encounter
--- OUTSIDE RECORDS SUMMARY | 2025-06-20 15:28 | XMS_ITS | Encounter Summary ---
Author Organization [facility] Address [address] [place] [address] Care Team Providers Care Spot Billing Clerk Name Role Phone Adrienne March DO Primary Care Provider Encounter Details Date Type Department Care Team (Latest Contact Info) Description 06/09/2000 Outpatient Historical [facility] [address] [address] Alexei Elizabeth MD [address] [place] [address] Lipoma of unspecified site (Primary Dx); Cardiomegaly; Edema Social History Tobacco Use Types Packs/Day Years Used Date Smoking Tobacco: Never Assessed Comments Unknown Sex and Gender Information Value Date Recorded Sex Assigned at Not on file Legal Sex Female 3:34 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
--- OUTSIDE RECORDS SUMMARY | 2025-06-20 15:28 | XMS_ITS | Encounter Summary ---
Author Organization [facility] Address [address] [place] [address] Care Team Providers Care Capacity Planner Name Role Phone Adrienne Macrh DO Primary Care Provider Encounter Details Date Type Department Care Team (Late st Contact Info) Description 06/11/2000 Outpatient Historical [facility] Imaging Services[facility] [place] [address] [place] [phone] Social History Tobacco Use Types Packs/Day Years Used Date Smoking Tobacco: Never Assessed Comments Unknown Sex and Gender Information Value Date Recorded Sex Assigned at Not on file Legal Sex Female 3:34 AM MOBILE THERAPIST Gender Identity Not on file Sexual Orientation Not on file documented as of this encounter Plan of Treatment Not on file documented as of this encounter Visit Diagnoses Not on filedocumented in this encounter Care Teams Capacity Planner Relationship Specialty Start Date End Date Adrienne March DO [address] [place] [address] PCP - General Family Practice 06/30/10 documented as of this encounter
--- OUTSIDE RECORDS SUMMARY | 2025-06-20 15:28 | XMS_ITS | Encounter Summary ---
Author Organization [facility] Address [address] [place] [address] Care Team Providers Care Well Tester Name Role Phone Adrienne March DO Primary Care Provider +1- [phone] Encounter Details Date Type Department Care Team (Latest Contact Info) Description 05/30/2001 Outpatient [facility] [place] [address] [place] [address] Abel Hurtado, DPM NO ADDRESS ON FILE Pain in limb (Primary Dx); Calcaneal spur Social History Tobacco Use Types Packs/Day Years Used Date Smoking Tobacco: Never Assessed Comments Unknown Sex and Gender Information Value Date Recorded Sex Assigned at Not on file 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
--- OUTSIDE RECORDS SUMMARY | 2025-06-20 15:28 | XMS_ITS | Encounter Summary ---
Author Organization [facility] Address [address] [place] [address] Care Team Providers Care Quality Control Scientist Name Role Phone Adrienne March DO Primary Care Provider Encounter Details Date Type Department Care Team (Latest Contact Info) Description 01/26/2005 Outpatient Historical [facility] [place] [address] [place] [address] [facility] [place] [facility] FEMUR NOS-CLOSED (CMS/HCC) (Primary Dx) Social History Tobacco Use Types Packs/Day Years Used Date Smoking Tobacco: Never Assessed Comments Unknown Sex and Gender Information Value Date Recorded Sex Assigned at Not on file Legal Sex Female 3:34 AM DIRECTOR OF NATIONAL SALES Gender Identity Not on file Sexual Orientation Not on file documented as of this encounter Plan of Treatment Not on file documented as of this encounter Visit Diagnoses Diagnosis Closed fracture of unspecified part of femur- Primary documented in this encounter Care Teams Quality Control Scientist Relationship Specialty Start Date End Date Adrienne March DO [address] [place] [address] PCP - General Family Practice 06/30/10 documented as of this encounter
--- OUTSIDE RECORDS SUMMARY | 2025-06-20 15:28 | XMS_ITS | Encounter Summary ---
Author Organization [facility] Address [address] [place] [address] Care Team Providers Care Bullet Slug Casting Machine Operator Name Role Phone Adrienne March DO Primary Care Provider Encounter Details Date Type Department Care Team (Latest Contact Info) Description 08/31/2000 Outpatient Historical [facility] Internal Medicine- [address] [place] [phone] Umang Urrutia MD [address] [place] [address] Type II or unspecified type diabetes mellitus without mention of complication, not stated as uncontrolled (Primary Dx); Hepatitis, unspecified; Carpal tunnel syndrome; Need vaccination-viral disease Social History Tobacco Use Types Packs/Day Years Used Date Smoking Tobacco: Never Assessed Comments Unknown Sex and Gender Information Value Date Recorded Sex Assigned at Not on file Legal Sex Female 3:34 AM NATURAL RESOURCES ENGINEER Gender Identity Not on file Sexual [...] diseases documented in this encounter Care Teams Bullet Slug Casting Machine Operator Relationship Specialty Start Date End Date Adrienne March DO [address] [place] [address] PCP - General Family Practice 06/30/10 documented as of this encounter
--- OUTSIDE RECORDS SUMMARY | 2025-06-20 15:28 | XMS_ITS | Encounter Summary ---
Author Organization [facility] Address [address] [place] [address] Care Team Providers Care Mechanical Maintenance Worker Name Role Phone Adrienne March DO Primary Care Provider Encounter Details Date Type Department Care Team (Latest Contact Info) Description 07/07/2001 Outpatient [facility] Podiatry-[facility] [place] [address] [place] [address] Abel Hurtado, MARCE NO ADDRESS ON FILE Calcaneal spur (Primary Dx); Plantar fibromatosis; Pain in limb Social History Tobacco Use Types Packs/Day Years Used Date Smoking Tobacco: Never Assessed Comments Unknown Sex and Gender Information Value Date Recorded Sex Assigned at Not on file Legal Sex Female 3:34 AM COLLEGE INTERN Gender Identity Not on file Sexual Orientation Not on file documented as of this encounter Plan of Treatment Not on file documented as of this encounter Visit Diagnoses Diagnosis Calcaneal spur- Primary Plantar fibromatosis Plantar fascial fibromatosis Pain in limb Pain in soft tissues of limb documented in this encounter Care Teams Mechanical Maintenance Worker Relationship Specialty Start Date End Date Adrienne March DO [address] [place] [address] PCP - General Family Practice 06/30/10 documented as of this encounter
--- OUTSIDE RECORDS SUMMARY | 2025-06-20 15:28 | XMS_ITS | Encounter Summary ---
Author Organization [facility] Address [address] [place]: [place] [address] Care Team Providers Care Computer Systems Technician Name Role Phone Adrienne March DO Primary Care Provider +1- [phone] Encounter Details Date Type Department Care Team (Late st Contact Info) Description 02/18/2001 Outpatient Historical Umang Urrutia MD [address] [place] [phone] Social History Tobacco Use Types Packs/Day Years Used Date Smoking Tobacco: Never Assessed Comments Unknown Sex and Gender Information Value Date Recorded Sex Assigned at Not on file Legal Sex Female 3:34 AM RN GASTROENTEROLOGY Gender Identity Not on file Sexual Orientation Not on file documented as of this encounter Plan of Treatment Not on file documented as of this encounter Visit Diagnoses Not on filedocumented in this encounter Care Teams Computer Systems Technician Relationship Specialty Start Date End Date Adrienne March DO [address] [place] [address] PCP - General Family Practice 06/30/10 documented as of this encounter
--- OUTSIDE RECORDS SUMMARY | 2025-06-20 15:28 | XMS_ITS | Encounter Summary ---
Author Organization [facility] Address [address] [place] [address] Care Team Providers Care Clinical Studies Specialist Name Role Phone Adrienne March DO Primary Care Provider +1- [phone] Encounter Details Date Type Department Care Team (Latest Contact Info) Description 08/05/2004 Outpatient Historical [facility] CANCELLED ADMISSION Jose Luis Mcmillan MD [address] [place] [address] [place] [address] ADMINISTRTVE ENCOUNT NOS (Primary Dx) Social History Tobacco Use Types Packs/Day Years Used Date Smoking Tobacco: Never Assessed Comments Unknown Sex and Gender Information Value Date Recorded Sex Assigned at Not on file Legal Sex Female 3:34 AM TANNING CONSULTANT Gender Identity Not on file Sexual Orientation Not on file documented as of this encounter Plan of Treatment Not on file documented as of this encounter Visit Diagnoses Diagnosis Encounters for unspecified administrative purpose- Primary documented in this encounter Care Teams Clinical Studies Specialist Relationship Specialty Start Date End Date Adrienne March DO [address] [place] [address] PCP - General Family Practice 06/30/10 documented as of this encounter
--- OUTSIDE RECORDS SUMMARY | 2025-06-20 15:28 | XMS_ITS | Encounter Summary ---
Author Organization [facility] Address [address] [place] [address] Care Team Providers Care Lining Parts Sewer Name Role Phone Adrienne March DO Primary Care Provider Encounter Details Date Type Department Care Team (Latest Contact Info) Description 09/21/2000 Outpatient Historical [facility] Internal Medicine- [address] [place] [address] Umang Urrutia MD [address] [place] [address] Type II or unspecified type diabetes mellitus without mention of complication, not stated as uncontrolled (Primary Dx); Carpal tunnel syndrome; Pain in limb Social History Tobacco Use Types Packs/Day Years Used Date Smoking Tobacco: Never Assessed Comments Unknown Sex and Gender Information Value Date Recorded Sex Assigned at Not on file Legal Sex Female 3:34 AM 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
--- OUTSIDE RECORDS SUMMARY | 2025-06-20 15:28 | XMS_ITS | Encounter Summary ---
Author Organization [facility] Address [address] [place] [address] Care Team Providers Care Certified Pathology Assistant Name Role Phone Adrienne March DO Primary Care Provider [phone] Encounter Details Date Type Department Care Team (Late st Contact Info) Description 12/20/2000 Outpatient Historical [facility] Internal Medicine- [address] [place] [phone] Umang Urrutia MD [address] [place] [address] Calcaneal spur (Primary Dx) Social History Tobacco Use Types Packs/Day Years Used Date Smoking Tobacco: Never Assessed Comments Unknown Sex and Gender Information Value Date Recorded Sex Assigned at Not on file Legal Sex Female 3:34 AM 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
--- OUTSIDE RECORDS SUMMARY | 2025-06-20 15:29 | XMS_ITS | Encounter Summary ---
Author Organization [facility] Address [address] [place] [address] Care Team Providers Care Kitchen Worker Name Role Phone Adrienne March DO Primary Care Provider Encounter Details Date Type Department Care Team (Latest Contact Info) Description 05/16/2025 Results Follow-Up [facility] Medicine [place] [address] [place] [address] Adrienne March DO [address] [place] [address] POC URINALYSIS DIPSTICK NON AUTOMATED, CBC WITH DIFFERENTIAL, COMPREHENSIVE METABOLIC PANEL, Additional followed-up results: 3 Social History Tobacco Use Types Packs/Day Years [...] on file Legal Sex Female 6:27 AM INTERN ARCHITECT Gender Identity Not on file Sexual Orientation Not on file documented as of this encounter Plan of Treatment Upcoming Encounters Date Type Department Care Team (Late st Contact Info) Description 07/25/2025 10:00 AM INTERN ARCHITECT Office Visit [facility] [address] [place] [phone] Adrienne March, DO [address] [place] [address] 10/25/2025 1:40 PM INTERN ARCHITECT Office Visit [facility] [address] [place] [address] Adrienne March, DO [address] [place] [address] 04/22/2026 1:20 PM CDT Office Visit [facility] [address] [facility] [address] [place] [address] Cori Ochoa, [facility] [address] [facility] [address] [place] [address] documented as of this encounter Visit Diagnoses Not on filedocumented in this encounter Care Teams Kitchen Worker Relationship Specialty Start Date End Date Adrienne March DO [address] [place] [address] PCP - General Family Practice 06/30/10 documented as of this encounter
--- OUTSIDE RECORDS SUMMARY | 2025-06-20 15:29 | XMS_ITS | Encounter Summary ---
Author Organization [facility] Address [address] [place] [address] Care Team Providers Care Deckhand Tuna Boat Name Role Phone Adrienne March DO Primary Care Provider Encounter Details Date Type Department Care Team (Late st Contact Info) Description 09/27/1998 Outpatient Historical [facility] INTERNAL MED Umang Urrutia MD [address] [place] [address] Cervical disc displacmnt (Primary Dx); Encounter for long-term (current) use of other medications; Sprain rotator cuff Social History Tobacco Use Types Packs/Day Years Used Date Smoking Tobacco: Never Assessed Comments Unknown Sex and Gender Information Value Date Recorded Sex Assigned at Not on file Legal Sex Female 3:34 AM PARISH VISITOR Gender Identity Not on file Sexual Orientation Not on file documented as of this encounter Plan of Treatment Not on file documented as of this encounter Visit Diagnoses Diagnosis Cervical disc displacmnt- Primary Displacement of cervical intervertebral disc without myelopathy Encounter for long-term (current) use of other medications Sprain rotator cuff Rotator cuff (capsule) sprain documented in this encounter Care Teams Deckhand Tuna Boat Relationship Specialty Start Date End Date Adrienne March DO [address] [place] [address] PCP - General Family Practice 06/30/10 documented as of this encounter
--- OUTSIDE RECORDS SUMMARY | 2025-06-20 15:29 | XMS_ITS | Encounter Summary ---
Author Organization [facility] Address [address] [place]: [place] [address] Care Team Providers Care Sizing Machine And Drier Operator Name Role Phone Adrienne March DO Primary Care Provider [phone] Encounter Details Date Type Department Care Team (Late st Contact Info) Description 12/31/1999 Outpatient Historical Umang Urrutia MD [address] [place] [id number] Social History Tobacco Use Types Packs/Day Years Used Date Smoking Tobacco: Never Assessed Comments Unknown Sex and Gender Information Value Date Recorded Sex Assigned at Not on file Legal Sex Female 3:34 AM FINE GRADE BULLDOZER OPERATOR Gender Identity Not on file Sexual Orientation Not on file documented as of this encounter Plan of Treatment Not on file documented as of this encounter Visit Diagnoses Not on filedocumented in this encounter Care Teams Sizing Machine And Drier Operator Relationship Specialty Start Date End Date Adrienne March DO [address] [place] [address] PCP - General Family Practice 06/30/10 documented as of this encounter
--- OUTSIDE RECORDS SUMMARY | 2025-06-20 15:29 | XMS_ITS | Encounter Summary ---
Author Organization [facility] Address [address] [place] [address] Care Team Providers Care Incident Coordinator Name Role Phone Adrienne March DO Primary Care Provider [phone] Encounter Details Date Type Department Care Team (Latest Contact Info) Description 03/26/1998 Outpatient Historical HIS [facility] MED Umang Urrutia MD [address] [place] [address] Headache(784.0) (Primary Dx); Other specified [...] on file Legal Sex Female 3:34 AM AIRCRAFT PNEUDRAULICS REPAIRER Gender Identity Not on file Sexual [...] chemistry documented in this encounter Care Teams Incident Coordinator Relationship Specialty Start Date End Date Adrienne March DO [address] [place] [phone] PCP - General Family Practice 06/30/10 documented as of this encounter
--- OUTSIDE RECORDS SUMMARY | 2025-06-20 15:29 | XMS_ITS | Encounter Summary ---
Author Organization [facility] Address [address] [place] [address] Care Team Providers Care Aligning Checker Name Role Phone Adrienne March DO Primary Care Provider Encounter Details Date Type Department Care Team (Late st Contact Info) Description 01/29/1999 Outpatient Historical HIS [facility] MED Umang Urrutia MD [address] [place] [phone] Adhesive capsulit shlder (Primary Dx); Cervical spinal stenosis; Encounter for long-term (current) use of other medications Social History Tobacco Use Types Packs/Day Years Used Date Smoking Tobacco: Never Assessed Comments Unknown Sex and Gender Information Value Date Recorded Sex Assigned at Not on file Legal Sex Female 3:34 AM PSS DELIVERY PROFESSIONAL Gender Identity Not on file Sexual Orientation Not on file documented as of this encounter Plan of Treatment Not on file documented as of this encounter Visit Diagnoses Diagnosis Adhesive capsulit shlder- Primary Adhesive capsulitis of shoulder Cervical spinal stenosis Spinal stenosis in cervical region Encounter for long-term (current) use of other medications documented in this encounter Care Teams Aligning Checker Relationship Specialty Start Date End Date Adrienne March DO [address] [place] [address] PCP - General Family Practice 06/30/10 documented as of this encounter
--- OUTSIDE RECORDS SUMMARY | 2025-06-20 15:29 | XMS_ITS | Encounter Summary ---
Author Organization [facility] Address [address] [place] [address] Care Team Providers Care Cook Night Name Role Phone Adrienne March DO Primary Care Provider Encounter Details Date Type Department Care Team (Late st Contact Info) Description 02/05/1999 Outpatient Historical HIS [facility] MED Umang Urrutia MD [address] [place] [address] Rotator cuff rupture (Primary Dx); Adhesive capsulit shlder; Other chest pain; Unspecified adjustment reaction Social History Tobacco Use Types Packs/Day Years Used Date Smoking Tobacco: Never Assessed Comments Unknown Sex and Gender Information Value Date Recorded Sex Assigned at Not on file Legal Sex Female 3:34 AM WEATHERIZATION OPERATIONS MANAGER Gender Identity Not on file Sexual Orientation Not on file documented as of this encounter Plan of Treatment Not on file documented as of this encounter Visit Diagnoses Diagnosis Rotator cuff rupture- Primary Rotator cuff (capsule) sprain Adhesive capsulit shlder Adhesive capsulitis of shoulder Other chest pain Unspecified adjustment reaction documented in this encounter Care Teams Cook Night Relationship Specialty Start Date End Date Adrienne March DO [address] [place] [address] PCP - General Family Practice 06/30/10 documented as of this encounter
--- OUTSIDE RECORDS SUMMARY | 2025-06-20 15:29 | XMS_ITS | Encounter Summary ---
Author Organization [facility] Address [address] [place] [address] Care Team Providers Care Fertilizing Machine Operator Name Role Phone Adrienne March DO Primary Care Provider Encounter Details Date Type Department Care Team (Latest Contact Info) Description 09/25/1998 Outpatient Historical HIS [facility] MED Umang Urrutia MD [address] [place] [address] Displacement of intervertebral disc, site unspecified, without myelopathy (Primary Dx); Adhesive capsulit shlder Social History Tobacco Use Types Packs/Day Years Used Date Smoking Tobacco: Never Assessed Comments Unknown Sex and Gender Information Value Date Recorded Sex Assigned at Not on file 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
--- OUTSIDE RECORDS SUMMARY | 2025-06-20 15:29 | XMS_ITS | Encounter Summary ---
Author Organization [facility] Address [address] [place] [address] Care Team Providers Care Glass Bead Maker Name Role Phone Adrienne March DO Primary Care Provider Encounter Details Date Type Department Care Team (Late st Contact Info) Description 10/15/1998 Outpatient Historical HIS [facility] MED Umang Urrutia MD [address] [place] [address] Cervical disc displacmnt (Primary Dx); Encounter for long-term (current) use of other medications Social History Tobacco Use Types Packs/Day Years Used Date Smoking Tobacco: Never Assessed Comments Unknown Sex and Gender Information Value Date Recorded Sex Assigned at Not on file 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
--- OUTSIDE RECORDS SUMMARY | 2025-06-20 15:29 | XMS_ITS | Encounter Summary ---
Author Organization [facility] Address [address] [place] [address] Care Team Providers Care Asset Protection Manager Name Role Phone Adrienne March DO Primary Care Provider Encounter Details Date Type Department Care Team (Late st Contact Info) Description 10/02/1998 Outpatient Historical HIS [facility] MED Umang Urrutia MD [address] [place] [address] Cervical disc displacmnt (Primary Dx); Premature beats, unspecified; Other specified cardiac dysrhythmias(427.89 ) Social History Tobacco Use Types Packs/Day Years Used Date Smoking Tobacco: Never Assessed Comments Unknown Sex and Gender Information Value Date Recorded Sex Assigned at Not on file 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 Gender Identity Not on file Sexual Orientation Not on file documented as of this encounter Plan of Treatment Not on file documented as of this encounter Visit Diagnoses Diagnosis Cervical disc displacmnt- Primary Displacement of cervical intervertebral disc without myelopathy Premature beats, unspecified Other specified cardiac dysrhythmias(427.89) Other specified cardiac dysrhythmias documented in this encounter Care Teams Asset Protection Manager Relationship Specialty Start Date End Date Adrienne March DO [address] [place] [phone] PCP - General Family Practice 06/30/10 documented as of this encounter
--- OUTSIDE RECORDS SUMMARY | 2025-06-20 15:29 | XMS_ITS | Encounter Summary ---
Author Organization [facility] Address [address] [place] [address] Care Team Providers Care Spanisher Name Role Phone Adrienne March DO Primary Care Provider Encounter Details Date Type Department Care Team (Late st Contact Info) Description 07/09/1998 Outpatient Historical [facility] MED Umang Urrutia MD [address] [place] [phone] Need vaccination-viral disease (Primary Dx) Social History Tobacco Use Types Packs/Day Years Used Date Smoking Tobacco: Never Assessed Comments Unknown Sex and Gender Information Value Date Recorded Sex Assigned at Not on file Legal Sex Female 3:34 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
--- OUTSIDE RECORDS SUMMARY | 2025-06-20 15:29 | XMS_ITS | Encounter Summary ---
Author Organization [facility] Address [address] [place] [address] Care Team Providers Care Drain Tiler Name Role Phone Adrienne March DO Primary Care Provider [phone] Encounter Details Date Type Department Care Team (Late st Contact Info) Description 04/11/1999 Outpatient Historical HIS [facility] MED Umang Urrutia MD [address] [place] [address] Cervicalgia (Primary Dx); Brachial neuritis or radiculitis NOS; Obesity, unspecified; Encounter for long-term (current) use of other medications Social History Tobacco Use Types Packs/Day Years Used Date Smoking Tobacco: Never Assessed Comments Unknown Sex and Gender Information Value Date Recorded Sex Assigned at Not on file 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
--- OUTSIDE RECORDS SUMMARY | 2025-06-20 15:29 | XMS_ITS | Encounter Summary ---
Author Organization [facility] Address [address] [place] [address] Care Team Providers Care V/Stol Landing Signal Officer Name Role Phone Adrienne March DO Primary Care Provider [phone] Encounter Details Date Type Department Care Team (Late st Contact Info) Description 01/13/1999 Outpatient Historical HIS [facility] MED Umang Urrutia MD [address] [place] [address] Cervical spinal stenosis (Primary Dx); Viral labyrinthitis; Unspecified adjustment reaction Social History Tobacco Use Types Packs/Day Years Used Date Smoking Tobacco: Never Assessed Comments Unknown Sex and Gender Information Value Date Recorded Sex Assigned at Not on file 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
--- OUTSIDE RECORDS SUMMARY | 2025-06-20 15:29 | XMS_ITS | Encounter Summary ---
Author Organization [facility] Address [address] [place] [address] Care Team Providers Care Hosiery Looper Name Role Phone Adrienne March DO Primary Care Provider Encounter Details Date Type Department Care Team (Latest Contact Info) Description 09/24/1997 Outpatient Historical [facility] Umang Urrutia MD [address] [place] [address] Other chronic nonalcoholic liver disease (Primary Dx); Other nonspecific abnormal serum enzyme levels; Sprain of neck; Enthesopathy of ankle and tarsus, unspecified Social History Tobacco Use Types Packs/Day Years Used Date Smoking Tobacco: Never Assessed Comments Unknown Sex and Gender Information Value Date Recorded Sex Assigned at Not on file 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
--- OUTSIDE RECORDS SUMMARY | 2025-06-20 15:29 | XMS_ITS | Encounter Summary ---
Author Organization [facility] Address [address] [place] [address] Care Team Providers Care Client Development Consultant Name Role Phone Adrienne March DO Primary Care Provider Encounter Details Date Type Department Care Team (Late st Contact Info) Description 04/26/1998 Outpatient [facility] [address] [phone] Flor Belcher MD NO ADDRESS ON FILE Other screening mammogram (Primary Dx) Social History Tobacco Use Types Packs/Day Years Used Date Smoking Tobacco: Never Assessed Comments Unknown Sex and Gender Information Value Date Recorded Sex Assigned at Not on file 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
--- OUTSIDE RECORDS SUMMARY | 2025-06-20 15:29 | XMS_ITS | Encounter Summary ---
Author Organization [facility] Address [address] [place] [address] Care Team Providers Care Autobody Technician Name Role Phone Adrienne March DO Primary Care Provider [phone]- [phone] Encounter Details Date Type Department Care Team (Latest Contact Info) Description 12/04/1998 Outpatient Historical [facility] MED Umang Urrutia MD [address] [place] [address] Cervical spinal stenosis (Primary Dx); Issue of medical certificates Social History Tobacco Use Types Packs/Day Years Used Date Smoking Tobacco: Never Assessed Comments Unknown Sex and Gender Information Value Date Recorded Sex Assigned at Not on file Legal Sex Female 3:34 AM 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
--- OUTSIDE RECORDS SUMMARY | 2025-06-20 15:29 | XMS_ITS | Encounter Summary ---
Author Organization [facility] Address [address] [place] [address] Care Team Providers Care Gasateria Attendant Name Role Phone Adrienne March DO Primary Care Provider Encounter Details Date Type Department Care Team (Late st Contact Info) Description 02/28/1999 Outpatient Historical HIS [facility] MED Umang Urrutia MD [address] [place] [address] Brachial neuritis or radiculitis NOS (Primary Dx); Adhesive capsulit shlder; Adjustment disorder with anxiety Social History Tobacco Use Types Packs/Day Years Used Date Smoking Tobacco: Never Assessed Comments Unknown Sex and Gender Information Value Date Recorded Sex Assigned at Not on file Legal Sex Female 3:34 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
--- OUTSIDE RECORDS SUMMARY | 2025-06-20 15:29 | XMS_ITS | Encounter Summary ---
Author Organization [facility] Address [address] [place] [address] Care Team Providers Care Mass Spectrometry Manager Name Role Phone Adrienne March DO Primary Care Provider [phone]- [phone] Encounter Details Date Type Department Care Team (Latest Contact Info) Description 03/28/1999 Outpatient Historical HIS [facility] MED Umang Urrutia MD [address] [place] [address] Cervical disc displacmnt (Primary Dx); Other and unspecified accidental fall; Paroxysmal supraventricular tachycardia; Hematuria; Encounter for long-term (current) use of other medications; Other and unspecified hyperlipidemia Social History Tobacco Use Types Packs/Day Years Used Date Smoking Tobacco: Never Assessed Comments Unknown Sex and Gender Information Value Date Recorded Sex Assigned at Not on file 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
[2025-06-20 15:32] VITALS: RESP 18
[2025-06-20] MEDS: fentaNYL 50 mcg/mL INJ 2mL IVP (15:32)
--- NOTE | 2025-06-20 15:32 | XRR_ITS ---
PROCEDURE INFORMATION: Exam: XR Left Shoulder Exam date and time: 06/20/2025 3:39 PM Age: 79 years old Clinical indication: Pain; Shoulder; Left; Additional info: Left shoulder pain TECHNIQUE: Imaging protocol: Radiologic exam of the left shoulder. Views: 2 or more views. COMPARISON: CR XR chest 1V portable [id number] 03/25/2025 2:04 PM FINDINGS: Bones/joints: No acute osseous abnormality. Osteoarthritis of the left shoulder. Lungs: Visualized lungs are unremarkable. Calcified granuloma in the lung. Soft tissues: Normal. XR/XR shoulder LT min 2V* [id number] IMPRESSION: No acute findings.
--- NOTE | 2025-06-20 15:34 | W.ED.EXTPRO ---
HPI - Extremity Problem General: Chief complaint: Extremity Problem,Nontraumatic Stated complaint: LT arm pain Source: patient Mode of arrival: EMS Limitations: no limitations History of Present Illness: Patient is a 79-year-old female with past medical history of diabetes, diastolic heart failure, COPD, and CVA who presents to the emergency department with atraumatic left upper extremity pain beginning approximately 2 hours prehospital. She arrives by ambulance, no injury or trauma reported. Pain does not radiate, but states that any movement of the left shoulder causes severe pain. No medications were given prehospital. Does note peripheral weakness to that left arm. No chest pain or shortness of breath. No dizziness or lightheadedness. No syncopal episodes or headaches. No coolness or paralysis noted at this time. She does take a blood thinner. MD Complaint: joint pain Onset (ago): hour(s) (2) Pain Consistency: constant Location: left and upper extremity (Shoulder) Radiation: none Associated symptoms: Deny chest pain, fever(s) or rash Context: other (Atraumatic) Related Data Home Medications ?Medication ?Instructions ?Recorded ?Confirmed cetirizine 10 mg tablet (Zyrtec) 10 mg PO DAILY PRN Allergy Symptoms 11/13/19 12/12/24 desvenlafaxine succinate 50 mg 50 mg PO DAILY 11/13/19 12/12/24 tablet,extended release 24 hr (Pristiq) esomeprazole magnesium 20 mg 20 mg PO DAILY 11/13/19 12/12/24 capsule,delayed release (Nexium) fluticasone propionate 50 1 spray intranasal DAILY PRN 11/13/19 12/12/24 mcg/actuation nasal allergies spray,suspension gabapentin 300 mg capsule 300 mg PO TID 11/13/19 12/12/24 oxycodone-acetaminophen 10 mg-325 1 tab PO Q4H PRN Pain 11/13/19 12/12/24 mg tablet (Percocet) phenytoin sodium extended 100 mg 300 mg PO BID 11/13/19 12/12/24 capsule (Dilantin Extended) ergocalciferol (vitamin D2) 1,250 1,250 mcg PO Q7D 09/14/21 12/12/24 mcg (50,000 unit) capsule (Vitamin D2) potassium chloride 20 mEq 20 meq PO DAILY 09/14/21 12/12/24 tablet,extended release apixaban 5 mg tablet (Eliquis) 5 mg PO BID 08/08/24 12/12/24 dulaglutide 1.5 mg/0.5 mL 0.5 mg SUBCUT Q7D 08/08/24 12/12/24 subcutaneous pen injector (Trulicity) levothyroxine 125 mcg tablet 125 mcg PO DAILY 08/08/24 12/12/24 metformin 500 mg tablet 500 mg PO BID 08/08/24 12/12/24 azelastine 137 mcg (0.1 %) nasal 2 spray intranasal BID 08/21/24 12/12/24 spray furosemide 40 mg tablet 40 mg PO DAILY 08/21/24 12/12/24 metoprolol succinate 25 mg 25 mg PO DAILY 08/21/24 12/12/24 tablet,extended release 24 hr aspirin 81 mg tablet,delayed 81 mg PO DAILY 12/12/24 12/12/24 release Previous Rx's ?Medication ?Instructions ?Recorded atorvastatin 40 mg tablet 40 mg PO DAILY #30 tabs 08/07/24 Allergies Allergy/AdvReac Type Severity Reaction Status Date / Time adhesive tape Allergy Unknown Verified 10/03/24 11:15 silver sulfadiazine (From Allergy ALGY-Rash Verified 10/03/24 11:15 Silvadene) Review of Systems General: Reports: 10 or more systems reviewed and unremarkable except in HPI and below Const: Denies: fever(s) or chills Card: Denies: chest pain, lightheadedness or syncope Resp: Denies: dyspnea or productive cough GI: Denies: abdominal pain, nausea, vomiting or diarrhea : Denies: flank pain Musc: Reports: joint pain (Left shoulder) and limited range of motion (Left shoulder); Denies: neck pain, back pain, extremity pain, extremity swelling, joint swelling, joint redness, joint warmth or muscle weakness Skin/Breast: Denies: rash Neuro: Reports: numbness in extremities (Left upper); Denies: headache(s), weakness in extremities or dizziness PFSH ED PFSH: Medical History Chronic anticoagulation Diabetes Hypoxia Diastolic heart failure Exertional dyspnea COPD (chronic obstructive pulmonary disease) Seizure disorder Mild aortic stenosis Obesity Diabetes 1.5, managed as type 2 Hyperlipidemia HTN (hypertension) Hypothyroidism CVA (cerebral vascular accident) Surgical History Previous back surgery S/P hysterectomy Family History Father Stroke Hypertension Mother Hypertension CAD (coronary artery disease) Myocardial infarction Sister Hypertension CAD (coronary artery disease) Myocardial infarction Brother CAD (coronary artery disease) Myocardial infarction Denies family history of Colon cancer Pancreatic cancer Ovarian cancer Thyroid cancer Diabetes Breast cancer Cancer Uterine cancer Social History Smoking and tobacco/nicotine status: never used tobacco/nicotine Household members: spouse Marital status: Physical Exam Const: COMMON NORMALS: patient oriented x3, no limitations, alert and well nourished OTHER: In distress from pain HENMT: COMMON NORMALS: normocephalic and atraumatic HEAD & SCALP: normocephalic and atraumatic Neck/C-Spine: COMMON NORMALS: full ROM, supple and no meningeal signs Resp: COMMON NORMALS: normal respiratory effort, No use of accessory muscles and clear to auscultation bilaterally AUSCULTATION: clear to auscultation bilaterally Cardio: COMMON NORMALS: regular rate and regular rhythm RATE: regular rate RHYTHM: regular rhythm Extremity: COMMON NORMALS: normal to inspection NARRATIVE EXTREMITY EXAM: Nontender to palpation to left proximal upper arm, no swelling, deformity, or signs of trauma. Pain with range of motion of the left shoulder. Slow cap refill. Distal pulses weak, no discernible coolness, pallor, or paralysis compared to the right. 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 Normal elbow and wrist examination. Neuro: COMMON NORMALS: patient oriented x3, moves all extremities, no focal motor deficits and no sensory deficits noted SENSORIUM/ORIENTATION: Yes alert MENINGEAL SIGNS: Yes no meningeal signs Skin: COMMON NORMALS: no rashes or lesions noted GENERAL SKIN EXAM: no rashes or lesions noted Course Vital Signs: Vital signs: Vital Signs Temperature 98.1 F 06/20/25 15:17 Pulse Rate 57 L 06/20/25 18:32 Respiratory Rate 19 H 06/20/25 16:13 Blood Pressure 148/84 06/20/25 18:32 Pulse Oximetry 99 06/20/25 18:32 Oxygen Delivery Me thod Nasal Cannula 06/20/25 15:17 Oxygen Flow Rate 2 06/20/25 15:17 MDM - Extremity (Nontraumatic) Medical Decision Making Patient presented by ambulance for sudden onset atraumatic left upper arm pain. Endorsing weakness to the left upper extremity as well during time of examination, and had his cardiac history but did not reporting chest pain or new shortness of breath at this time. Chronically on oxygen. Some weakness noted with range of motion but no significant reproducible tenderness palpation. Delayed cap refill and somewhat weak and radial pulse, but still seemed perfusable. Ultrasound venous and arterial does not show any acute occlusions, x-ray of the shoulder does not reveal any traumatic findings as well. She had complete amelioration of symptoms after pain medication here. With her cardiac history wanted to rule out anginal equivalent so labs ordered delta troponin negative, EKG showing no acute ST segment elevation, and chest x-ray unremarkable. After evaluation here in the emergency department for few hours, remains pain-free and suspect benign etiology of the pain and is given general return precautions and told to follow-up primary care for further evaluation. Patient and family endorsed understanding with this plan. Lab Data 06/20/25 16:08 06/20/25 16:08 Radiology Impressions Duplex Scan Upper Extremity Artery 06/20/25 15:20 IMPRESSION: No acute findings. Venous Duplex 06/20/25 15:20 IMPRESSION: No evidence of deep vein thrombosis in the left upper extremity. Shoulder X-Ray 06/20/25 15:32 IMPRESSION: No acute findings. Chest X-Ray 06/20/25 15:46 IMPRESSION: Right lower lobe atelectasis versus early pneumonia. Laboratory Results WBC 8.68 10^3/uL (3.29-11.43) 06/20/25 16:08 RBC 3.95 10^6/uL (3.85-5.65) 06/20/25 16:08 Hgb 11.60 g/dL (11.27-16.99) 06/20/25 16:08 Hct 36.6 % (36-47) 06/20/25 16:08 MCV 92.7 fl (85-98) 06/20/25 16:08 MCH 29.4 pg (27-33) 06/20/25 16:08 MCHC 31.7 g/dL (30-55) 06/20/25 16:08 RDW 15.9 % (12.1-15.1) H 06/20/25 16:08 Plt Count 279 10^3/cmm (157-399) 06/20/25 16:08 MPV 8.3 fL (7.4-10.4) 06/20/25 16:08 Neut % (Auto) 73.8 % 06/20/25 16:08 Lymph % (Auto) 13.2 % 06/20/25 16:08 [place] % (Auto) 9.6 % 06/20/25 16:08 Eos % (Auto) 2.8 % 06/20/25 16:08 Baso % (Auto) 0.3 % 06/20/25 16:08 Neut # (Auto) 6.40 10^3/uL (1.8-7.7) 06/20/25 16:08 Lymph # (Auto) 1.2 10^3/uL (0.8-4.8) 06/20/25 16:08 [place] # (Auto) 0.8 10^3/uL (0.2-0.9) 06/20/25 16:08 Eos # (Auto) 0.2 10^3/uL (0.0-0.8) 06/20/25 16:08 Baso # (Auto) 0.0 10^3/uL (0.0-0.1) 06/20/25 16:08 Nucleated RBC % (auto) 0 % 06/20/25 16:08 Nucleated RBCs # 0.0 /100WBC 06/20/25 16:08 Sodium 142 mmol/L (136-145) 06/20/25 16:08 Potassium 4.2 mmol/L (3.5-5.1) 06/20/25 16:08 Chloride 103 mmol/L (98-107) 06/20/25 16:08 Carbon Dioxide 27 mmol/L (22-29) 06/20/25 16:08 Anion Gap 16.2 (5-19) 06/20/25 16:08 BUN 17 mg/dL (8-23) 06/20/25 16:08 Creatinine 1.1 mg/dL (0.5-0.9) H 06/20/25 16:08 GFR Calculation Not Reportable 06/20/25 16:08 Glucose 162 mg/dL (65-115) H 06/20/25 16:08 Calculated Osmolality 299 mOsm/kg (285-295) H 06/20/25 16:08 Calcium 8.4 mg/dL (8.5-10.5) L 06/20/25 16:08 Total Bilirubin 0.2 mg/dL (0.15-1.2) 06/20/25 16:08 AST 18 U/L (0-32) 06/20/25 16:08 ALT 16 U/L (0-33) 06/20/25 16:08 Alkaline Phosphatase 125 U/L (35-105) H 06/20/25 16:08 Troponin T Baseline 22 ng/L (0-10) H 06/20/25 16:08 Troponin T 120 Minute 20.78 ng/L (0-10) H 06/20/25 17:43 Delta Troponin T -1.22 ABS# (0-10) L 06/20/25 17:43 Total Protein 7.1 g/dL (6.6-8.7) 06/20/25 16:08 Albumin 3.7 g/dL (3.5-5.2) 06/20/25 16:08 Globulin 3.4 g/dL (1.3-4.6) 06/20/25 16:08 All radiology interpretation(s) finalized by discharge Discharge Plan Discharge Patient Disposition: Home Clinical Impression: Muscle strain of left upper arm Condition: Stable Prescriptions: No Action phenytoin sodium extended [Dilantin Extended] 100 mg capsule 300 mg PO BID fluticasone propionate 50 mcg/actuation spray,suspension 1 spray INTRANASAL DAILY PRN (Reason: allergies) gabapentin 300 mg capsule 300 mg PO TID esomeprazole magnesium [Nexium] 20 mg capsule,delayed release(DR/EC) 20 mg PO DAILY oxycodone-acetaminophen [Percocet] 10-325 mg tablet 1 tab PO Q4H PRN (Reason: Pain) desvenlafaxine succinate [Pristiq] 50 mg tablet extended release 24 hr 50 mg PO DAILY cetirizine [Zyrtec] 10 mg tablet 10 mg PO DAILY PRN (Reason: Allergy Symptoms) ergocalciferol (vitamin D2) [Vitamin D2] 1,250 mcg (50,000 unit) Capsule 1,250 mcg PO Q7D Rx Instructions: ON WEDNESDAYS potassium chloride 20 mEq Tablet Extended Release 20 meq PO DAILY metformin 500 mg tablet 500 mg PO BID Eliquis 5 mg tablet 5 mg PO BID levothyroxine 125 mcg tablet 125 mcg PO DAILY Trulicity 1.5 mg/0.5 mL pen injector 0.5 mg SUBCUT Q7D aspirin 81 mg Tablet,Delayed Release (Dr/Ec) 81 mg PO DAILY atorvastatin 40 mg tablet 40 mg PO DAILY Qty: 30 0RF furosemide 40 mg tablet 40 mg PO DAILY metoprolol succinate 25 mg tablet extended release 24 hr 25 mg PO DAILY azelastine 137 mcg (0.1 %) spray,non-aerosol 2 spray INTRANASAL BID Discharge Orders: Discharge ED (Routine); Ordered 06/20/25 Ordered By: Alexei Garcia Referrals: Adrienne March DO [Primary Care Provider, [facility]] Patient Instructions: Patient Portal & Porfirio Instructions Activity Restrictions/Additional Instructions: Left Arm Strain Discharge Diagnosis: Left upper arm strain. No evidence of fracture, vascular injury, or acute cardiac pathology based on negative ultrasound, x-ray, and cardiac workup. Summary of Evaluation: - Venous and arterial ultrasound: negative - Shoulder x-ray: negative - Cardiac workup (including delta troponin, ECG, chest x-ray): negative - Laboratory results: normal Instructions for Home Care: - Rest and Activity: - Limit use of the affected arm for heavy lifting or strenuous activity for several days. Gentle rqzfo-rs-wbxryr exercises may be started as tolerated to prevent stiffness. - Avoid activities that worsen pain. - Pain Management: - Acetaminophen or NSAIDs (e.g., ibuprofen) may be used for pain control, unless contraindicated by comorbidities or current medications. For older adults, use the lowest effective dose and monitor for gastrointestinal, renal, or cardiovascular side effects. - Typical dosing for acetaminophen: up to 3,000 mg/day in divided doses (do not exceed 3,000 mg/day in older adults). - Typical dosing for ibuprofen: 200?400 mg every 6?8 hours as needed, not to exceed 1,200 mg/day for eijd-nki-dnccezh use. - If the patient is on anticoagulation, has a history of peptic ulcer disease, or chronic kidney disease, avoid NSAIDs. - Ice and Compression: - Apply ice packs to the affected area for 15?20 minutes every 2?3 hours during the first 48 hours to reduce pain and swelling. - Compression is generally not necessary unless swelling is present. - Physical Therapy: - If pain persists beyond 1?2 weeks or there is difficulty with arm movement, consider referral for physical therapy for guided rehabilitation. Follow-Up: - Schedule follow-up with primary care within 1?2 weeks to reassess symptoms and recovery. - If symptoms worsen or do not improve, further evaluation may be warranted to rule out occult injury or rotator cuff pathology. Return Precautions: Seek immediate medical attention if any of the following occur: - Increasing pain, swelling, or redness - Numbness, tingling, or weakness in the arm or hand - Fever or signs of infection - Inability to move the arm - Chest pain, shortness of breath, or other new symptoms Medication Review: - Review all current medications for potential interactions with pain medications. - Provide written instructions for medication dosing, as older adults have lower comprehension of medication instructions. Additional Notes: - No further imaging or cardiac testing is indicated at this time, as per the [employer] and [employer] guidelines for low-risk patients with negative initial workup. - Encourage maintenance of cardiovascular risk factor modification and healthy lifestyle practices. Contact Information: - Provide a direct contact number for questions or concerns regarding recovery or medications. Patient Education: - Reinforce diagnosis, expected recovery course, and importance of adherence to instructions, as comprehension of discharge instructions in older adults is variable and may impact outcomes. 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
--- NOTE | 2025-06-20 15:46 | XRR_ITS ---
PROCEDURE INFORMATION: Exam: XR Chest Exam date and time: 06/20/2025 3:50 PM Age: 79 years old Clinical indication: Pain; Angina pectoris; Additional info: Left arm/cp TECHNIQUE: Imaging protocol: Radiologic exam of the chest. Views: 1 view. COMPARISON: CR XR chest 1V portable [id number] 03/25/2025 2:04 PM FINDINGS: Lungs: Patchy density in the right lower lobe which may be due to atelectasis or an early infectious process. Pleural spaces: No pleural effusion or pneumothorax noted. Heart/Mediastinum: There is cardiomegaly. Bones/joints: No acute osseous abnormality. Status post anterior cervical fusion of the lower cervical vertebrae. Intraperitoneal space: There is no free intraperitoneal gas. XR/XR chest 1V portable [id number] IMPRESSION: Right lower lobe atelectasis versus early pneumonia.
[2025-06-20 16:13] VITALS: BP 127/52; PULSE 59; RESP 19; O2SAT 97
[2025-06-20 16:16] LABS: Hematocrit 36.6 % (36-47); Hemoglobin 11.60 g/dL (11.27-16.99); Mean Corpuscular HGB Conc 31.7 g/dL (30-55); Mean Corpuscular Hemoglobin 29.4 pg (27-33); Mean Corpuscular Volume 92.7 fl (85-98); Nucleated Red Blood Cells % 0 %; Platelet Count 279 10^3/cmm (157-399); Red Blood Count 3.95 10^6/uL (3.85-5.65); White Blood Count 8.68 10^3/uL (3.29-11.43)
[2025-06-20 16:35] LABS: Troponin(5th) Baseline 22 ng/L (0-10)
[2025-06-20 17:12] LABS: Alanine Aminotransferase 16 U/L (0-33); Albumin Level 3.7 g/dL (3.5-5.2); Alkaline Phosphatase 125 U/L (35-105); Anion Gap 16.2 (5-19); Aspartate Amino Transferase 18 U/L (0-32); Blood Urea Nitrogen 17 mg/dL (8-23); Calcium 8.4 mg/dL (8.5-10.5); Carbon Dioxide 27 mmol/L (22-29); Chloride 103 mmol/L (98-107); Creatinine Clr Calc Pharmacy 47.0680; Globulin 3.4 g/dL (1.3-4.6); Glucose 162 mg/dL (65-115); Osmolality Calculated 299 mOsm/kg (285-295); Potassium 4.2 mmol/L (3.5-5.1); Sodium 142 mmol/L (136-145); Total Protein 7.1 g/dL (6.6-8.7)
--- NOTE | 2025-06-20 17:20 | ECG_ITS ---
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 Measurements Intervals [place] Rate: 64 P: -62 DE: 94 QRS: 241 QRSD: 137 T: -53 QT: 448 QTc: 464 Interpretive Statements ECTOPIC ATRIAL RHYTHM RIGHT BUNDLE BRANCH BLOCK [120+ ms QRS DURATION, UPRIGHT V1, 40+ ms S IN I/aVL/V4/V5/V6] ANTEROSEPTAL MYOCARDIAL INFARCTION , OF INDETERMINATE AGE [40+ ms Q WAVE IN V1-V4] MODERATE T-WAVE ABNORMALITY, CONSIDER LATERAL ISCHEMIA [-0.1+ mV T-WAVE IN I/aVL/V5/V6] MODERATE T-WAVE ABNORMALITY, CONSIDER INFERIOR ISCHEMIA [-0.1+ mV T-WAVE IN II/aVF] Electronically Signed On 06-21-2025 08:53:39 CDT by Tariq Cannon M.D. [email or web address]
[2025-06-20 18:13] LABS: Troponin 5 2HR 20.78 ng/L (0-10)
[2025-06-20 18:15] LABS: Troponin 5 2HR Delta -1.22 ABS# (0-10)
[2025-06-20 18:32] VITALS: BP 148/84; PULSE 57; O2SAT 99
== END 2025-06-20 18:33 | disposition home or self-care (01) ==
PROVIDERS: Emergency Provider Physician Assistant; PCP Family Medicine
DX: S46.912A Strain of unspecified muscle, fascia and tendon at shoulder and upper arm level, left arm, initial encounter (principal); Z79.01 Long term (current) use of anticoagulants; Z79.82 Long term (current) use of aspirin; Z79.85 Long-term (current) use of injectable non-insulin antidiabetic drugs; E13.9 Other specified diabetes mellitus without complications; I11.0 Hypertensive heart disease with heart failure; I50.30 Unspecified diastolic (congestive) heart failure; E78.5 Hyperlipidemia, unspecified; Z86.73 Personal history of transient ischemic attack (TIA), and cerebral infarction without residual deficits; J44.9 Chronic obstructive pulmonary disease, unspecified; X58.XXXA Exposure to other specified factors, initial encounter
CPT/HCPCS: 36415; 71045; 73030; 80053; 84484; 85025; 93005; 93931; 93971; 96374; 99285; J3010

== ENCOUNTER 2025-07-09 14:07 | Emergency (ER) | payer MEDICARE, SELFPAY ==
[2025-07-09 14:15] VITALS: BP 137/72; PULSE 58; RESP 18; TEMP 36.8; O2SAT 97; BMI 40.2
--- NOTE | 2025-07-09 14:19 | ECG_ITS ---
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 Measurements Intervals [place] Rate: 53 P: -63 CA: 110 QRS: 258 QRSD: 145 T: -46 QT: 443 QTc: 419 Interpretive Statements SINUS BRADYCARDIA RIGHT AXIS DEVIATION [QRS AXIS > 100] RIGHT BUNDLE BRANCH BLOCK [120+ ms QRS DURATION, UPRIGHT V1, 40+ ms S IN I/aVL/V4/V5/V6] ANTEROSEPTAL MYOCARDIAL INFARCTION , OF INDETERMINATE AGE [40+ ms Q WAVE IN V1-V4].MODERATE T-WAVE ABNORMALITY, CONSIDER LATERAL ISCHEMIA [-0.1+ mV T-WAVE IN I/aVL/V5/V6]. MODERATE T-WAVE ABNORMALITY, CONSIDER INFERIOR ISCHEMIA [-0.1+ mV T-WAVE IN II/aVF] Compared to ECG 06/20/2025 17:20:38 Right-axis deviation now present.Ectopic atrial rhythm no longer present Myocardial infarct finding still present. T-wave abnormality still present Possible ischemia still present Electronically Signed On 07-10-2025 19:20:27 CDT by Stanley Miller M.D. [email or web address]
--- NOTE | 2025-07-09 16:43 | XRR_ITS ---
PROCEDURE INFORMATION: Exam: XR Chest Exam date and time: 07/09/2025 4:44 PM Age: 79 years old Clinical indication: Shortness of breath; Additional info: Shorness of breath TECHNIQUE: Imaging protocol: Radiologic exam of the chest. Views: 1 view. COMPARISON: CR XR chest 1V portable [id number] 06/20/2025 3:50 PM FINDINGS: Lungs: Few scattered granulomas. Haziness of the bilateral lungs, likely related to low lung volumes though can not exclude mild edema or infiltrates, clinical correlation. Pleural spaces: Unremarkable. No pleural effusion. No pneumothorax. Heart/Mediastinum: Unremarkable. No cardiomegaly. Vasculature: Aortic atherosclerosis. Bones/joints: Postsurgical changes of the lower cervical spine. XR/XR chest 1V portable [id number] IMPRESSION: No definite acute findings. Incidentals as above.
[2025-07-09 17:00] LABS: ABG PCO2 49.9 mmHg (35-45); ABG PH Result 7.39 (7.35-7.45); Arterial Blood Gas Hematocrit 36.1 % (37-47); Blood Gas Allen Test Pos; Blood Gas LPM 1.5 %; Blood Gas Operator Identificat WAALCIII; Blood Gas Sample Site Radial, right; Blood Gas Sample Type Arterial; HCO3 ABG 30.5 mmol/L (22-26); PO2 ABG 97.9 mmHg (80.0-100.0)
--- NOTE | 2025-07-09 17:03 | W.ED.SOB ---
HPI - SOB/Dyspnea General: Chief Complaint: Shortness of Breath/Dyspnea Stated Complaint: Sob Time Seen by Provider: 07/09/25 16:41 History of Present Illness: HPI Narrative: 79-year-old female with history of chronic respiratory insufficiency on home oxygen (2 L nasal cannula) presents with new onset jerking movements of hands/eyes and shortness of breath since yesterday. Patient worried about carbon dioxide buildup given prior severe hypercapnia episodes; reports prior events where she nearly and became confused. Denies known fever today; recently had urinary tract infection treated with two antibiotics and is concerned for yeast infection recurrence. Reports chronic fluid retention; takes daily diuretic (?water pill?). [place] lightheaded and near passing out during jerking. No chest pain reported. Accompanied by daughter. Related Data Home Medications ?Medication ?Instructions ?Recorded ?Confirmed cetirizine 10 mg tablet (Zyrtec) 10 mg PO DAILY PRN Allergy Symptoms 11/13/19 12/12/24 desvenlafaxine succinate 50 mg 50 mg PO DAILY 11/13/19 12/12/24 tablet,extended release 24 hr (Pristiq) esomeprazole magnesium 20 mg 20 mg PO DAILY 11/13/19 12/12/24 capsule,delayed release (Nexium) fluticasone propionate 50 1 spray intranasal DAILY PRN 11/13/19 12/12/24 mcg/actuation nasal allergies spray,suspension gabapentin 300 mg capsule 300 mg PO TID 11/13/19 12/12/24 oxycodone-acetaminophen 10 mg-325 1 tab PO Q4H PRN Pain 11/13/19 12/12/24 mg tablet (Percocet) phenytoin sodium extended 100 mg 300 mg PO BID 11/13/19 12/12/24 capsule (Dilantin Extended) ergocalciferol (vitamin D2) 1,250 1,250 mcg PO Q7D 09/14/21 12/12/24 mcg (50,000 unit) capsule (Vitamin D2) potassium chloride 20 mEq 20 meq PO DAILY 09/14/21 12/12/24 tablet,extended release apixaban 5 mg tablet (Eliquis) 5 mg PO BID 08/08/24 12/12/24 dulaglutide 1.5 mg/0.5 mL 0.5 mg SUBCUT Q7D 08/08/24 12/12/24 subcutaneous pen injector (Trulicity) levothyroxine 125 mcg tablet 125 mcg PO DAILY 08/08/24 12/12/24 metformin 500 mg tablet 500 mg PO BID 08/08/24 12/12/24 azelastine 137 mcg (0.1 %) nasal 2 spray intranasal BID 08/21/24 12/12/24 spray furosemide 40 mg tablet 40 mg PO DAILY 08/21/24 12/12/24 metoprolol succinate 25 mg 25 mg PO DAILY 08/21/24 12/12/24 tablet,extended release 24 hr aspirin 81 mg tablet,delayed 81 mg PO DAILY 12/12/24 12/12/24 release Previous Rx's ?Medication ?Instructions ?Recorded atorvastatin 40 mg tablet 40 mg PO DAILY #30 tabs 08/07/24 Allergies Allergy/AdvReac Type Severity Reaction Status Date / Time adhesive tape Allergy Unknown Verified 10/03/24 11:15 silver sulfadiazine (From Allergy ALGY-Rash Verified 10/03/24 11:15 Silvadene) PFS ED PFSH: Medical History (Updated 07/09/25 @ 17:16 by Shon Lewis DO) Chronic anticoagulation Diabetes Hypoxia Diastolic heart failure Exertional dyspnea COPD (chronic obstructive pulmonary disease) Seizure disorder Mild aortic stenosis Obesity Diabetes 1.5, managed as type 2 Hyperlipidemia HTN (hypertension) Hypothyroidism CVA (cerebral vascular accident) Surgical History Previous back surgery S/P hysterectomy Family History Father Stroke Hypertension Mother Hypertension CAD (coronary artery disease) Myocardial infarction Sister Hypertension CAD (coronary artery disease) Myocardial infarction Brother CAD (coronary artery disease) Myocardial infarction Denies family history of Colon cancer Pancreatic cancer Ovarian cancer Thyroid cancer Diabetes Breast cancer Cancer Uterine cancer Social History Smoking and tobacco/nicotine status: never used tobacco/nicotine Household members: spouse Marital status: Physical Exam Const: COMMON NORMALS: no acute distress, patient oriented x3 and alert HENMT: COMMON NORMALS: normocephalic and atraumatic HEAD & SCALP: normocephalic and atraumatic Eye: COMMON NORMALS: Equal, round and reactive pupils present, EOMs intact bilaterally and no scleral icterus PUPIL: Yes Equal, round and reactive pupils present Resp: COMMON NORMALS: normal respiratory effort and No retractions Cardio: COMMON NORMALS: regular rhythm and No murmurs present (Cardio) RHYTHM: regular rhythm OTHER: Bradycardic, 1+ pitting edema of the lower extremities GI: COMMON NORMALS: Normal to inspection, nondistended, normoactive bowel sounds present, Soft to palpation and non-tender PALPATION: Yes Soft to palpation Neuro: COMMON NORMALS: patient oriented x3 SENSORIUM/ORIENTATION: Yes alert Skin: COMMON NORMALS: no rashes or lesions noted GENERAL SKIN EXAM: no rashes or lesions noted Course Vital Signs: Vital signs: Vital Signs Temperature 98.2 F 07/09/25 14:15 Pulse Rate 52 L 07/09/25 17:07 Respiratory Rate 16 07/09/25 17:07 Blood Pressure 143/53 07/09/25 17:07 Pulse Oximetry 98 07/09/25 17:07 Oxygen Delivery Me thod Nasal Cannula 07/09/25 14:15 Oxygen Flow Rate 2 07/09/25 14:15 MDM - SOB/Dyspnea Medical Decision Making 79-year-old female on home oxygen with prior hypercapnia presents with shortness of breath and new jerking movements since yesterday, with lightheadedness and concern for carbon dioxide buildup; recent urinary tract infection treated with two antibiotics and concern for yeast infection. Vital signs notable for SpO2 97% on 2 L. Physical exam: lungs clear, no increased work of breathing, bradycardic, 1+ leg edema, alert and oriented x3. Arterial blood gas shows PaCO2 52 (prior higher). Chest X-ray clear without pneumonia. EKG shows sinus bradycardia; otherwise unremarkable. Differential diagnosis discussed: shakes unlikely due to carbon dioxide per provider; could be myoclonus or electrolyte derangements; rigors can occur with systemic illness. Hypercapnia not severe given CO2 52 and clear chest X-ray. Plan: No further extensive labs today. Provide single-dose Diflucan (fluconazole) for yeast infection. Discharge home with reassurance; arterial blood gas, chest X-ray, EKG already completed. Patient feels and appears well and will be discharged in stable condition follow-up primary care as needed Lab Data Labs/Radiology: Radiology Impressions Chest X-Ray 07/09/25 16:43 IMPRESSION: No definite acute findings. Incidentals as above. Laboratory Results Specimen Type Arterial 07/09/25 16:49 Sample Site Radial, right 07/09/25 16:49 ABG pH 7.39 (7.35-7.45) 07/09/25 16:49 ABG pCO2 49.9 mmHg (35-45) H 07/09/25 16:49 ABG pO2 97.9 mmHg (80.0-100.0) 07/09/25 16:49 ABG HCO3 30.5 mmol/L (22-26) H 07/09/25 16:49 ABG Base Excess 4.6 mmol/L (-2.0-2.0) H 07/09/25 16:49 Eliazar Test Pos 07/09/25 16:49 Hematocrit 36.1 % (37-47) L 07/09/25 16:49 O2 Delivery Device Nc 07/09/25 16:49 O2 Liters/Min 1.5 % 07/09/25 16:49 Rope Tow Operator ID [email or web address] 07/09/25 16:49 All radiology interpretation(s) finalized by discharge EKG Data EKG 1: Interpretation: EKG interpreted by me: Time?141?sinus bradycardia, rate of 53 with right bundle branch block pattern, no ST segment elevation or depression, QTc = 419 Discharge Plan Discharge Patient Disposition: Home Clinical Impression: Shortness of breath, Yeast infection Condition: Stable Prescriptions: No Action phenytoin sodium extended [Dilantin Extended] 100 mg capsule 300 mg PO BID fluticasone propionate 50 mcg/actuation spray,suspension 1 spray INTRANASAL DAILY PRN (Reason: allergies) gabapentin 300 mg capsule 300 mg PO TID esomeprazole magnesium [Nexium] 20 mg capsule,delayed release(DR/EC) 20 mg PO DAILY oxycodone-acetaminophen [Percocet] 10-325 mg tablet 1 tab PO Q4H PRN (Reason: Pain) desvenlafaxine succinate [Pristiq] 50 mg tablet extended release 24 hr 50 mg PO DAILY cetirizine [Zyrtec] 10 mg tablet 10 mg PO DAILY PRN (Reason: Allergy Symptoms) ergocalciferol (vitamin D2) [Vitamin D2] 1,250 mcg (50,000 unit) Capsule 1,250 mcg PO Q7D Rx Instructions: ON WEDNESDAYS potassium chloride 20 mEq Tablet Extended Release 20 meq PO DAILY metformin 500 mg tablet 500 mg PO BID Eliquis 5 mg tablet 5 mg PO BID levothyroxine 125 mcg tablet 125 mcg PO DAILY Trulicity 1.5 mg/0.5 mL pen injector 0.5 mg SUBCUT Q7D aspirin 81 mg Tablet,Delayed Release (Dr/Ec) 81 mg PO DAILY atorvastatin 40 mg tablet 40 mg PO DAILY Qty: 30 0RF furosemide 40 mg tablet 40 mg PO DAILY metoprolol succinate 25 mg tablet extended release 24 hr 25 mg PO DAILY azelastine 137 mcg (0.1 %) spray,non-aerosol 2 spray INTRANASAL BID Discharge Orders: Discharge ED (Routine); Ordered 07/09/25 Ordered By: Shon Lewis Referrals: Adrienne March DO [Primary Care Provider, Family Practice] Discharge Diet: Usual diet Discharge Activity: Increase activity as tolerated Patient Instructions: Yeast Infection (ED), Patient Portal & Porfirio Instructions Activity Restrictions/Additional Instructions: The blood gas test shows that your CO2 level is acceptable and is not likely the cause of your shakes. You were given a single dose of Diflucan for suspected yeast infection. If symptoms get worse you are always welcome back in emergency department but otherwise can follow-up with your primary care doctor as needed Print Language: Telugu Coding Level of Care Code ED Airplane Cabin Attendant for Valentin Mace
[2025-07-09 17:07] VITALS: BP 143/53; PULSE 52; RESP 16; O2SAT 98
== END 2025-07-09 17:38 | disposition home or self-care (01) ==
PROVIDERS: Emergency Provider Student in an Organized Health Care Education/Training Program; PCP Family Medicine
DX: R06.02 Shortness of breath (principal); B37.9 Candidiasis, unspecified; Z79.01 Long term (current) use of anticoagulants; Z79.84 Long term (current) use of oral hypoglycemic drugs; Z79.82 Long term (current) use of aspirin; Z79.85 Long-term (current) use of injectable non-insulin antidiabetic drugs; Z86.73 Personal history of transient ischemic attack (TIA), and cerebral infarction without residual deficits; J44.9 Chronic obstructive pulmonary disease, unspecified; I11.0 Hypertensive heart disease with heart failure; I50.30 Unspecified diastolic (congestive) heart failure; E13.9 Other specified diabetes mellitus without complications; R00.1 Bradycardia, unspecified; Z99.81 Dependence on supplemental oxygen
CPT/HCPCS: 36600; 71045; 82803; 93005; 99285; J9999

== ENCOUNTER 2025-09-01 18:09 | Emergency (ER) | payer MEDICARE, SELFPAY ==
[2025-09-01 18:17] VITALS: BP 130/58; PULSE 60; RESP 20; TEMP 36.7; O2SAT 97; BMI 40.2
--- OUTSIDE RECORDS SUMMARY | 2025-09-01 18:19 | XMS_ITS | Encounter Summary ---
Author Organization [facility] Address [address] [place] [address] Care Team Providers Care Clinical Specialty Rep Name Role Phone Adrienne March DO Primary Care Provider [phone]- [phone] Encounter Details Date Type Department Care Team (Latest Contact Info) Description 03/27/2003 Outpatient Historical [facility] Jose Luis Mcmillan MD [address] [place] [address] Cervical spondylosis (Primary Dx); CERVICALGIA Social History Tobacco Use Types Packs/Day Years Used Date Smoking Tobacco: Never Assessed Comments Unknown Sex and Gender Information Value Date Recorded Sex Assigned at Not on file Legal Sex Female 3:34 AM PATTERN SCRATCHER Gender Identity Not on file Sexual Orientation Not on file documented as of this encounter Plan of Treatment Not on file documented as of this encounter Visit Diagnoses Diagnosis Cervical spondylosis- Primary Cervical spondylosis without myelopathy Cervicalgia documented in this encounter Care Teams Clinical Specialty Rep Relationship Specialty Start Date End Date Adrienne March DO [address] [place] [address] PCP - General Family Practice 06/30/10 documented as of this encounter
--- OUTSIDE RECORDS SUMMARY | 2025-09-01 18:19 | XMS_ITS | Encounter Summary ---
Author Organization [facility] Address [address] [place] [address] Care Team Providers Care Rover Tender Name Role Phone Adrienne March DO Primary Care Provider [phone]- [phone] Encounter Details Date Type Department Care Team (Latest Contact Info) Description 04/30/2003 Outpatient Historical [facility] Wilfredo Michel MD [address] [phone] MONONEURITIS NOS (Primary Dx) Social History Tobacco Use Types Packs/Day Years Used Date Smoking Tobacco: Never Assessed Comments Unknown Sex and Gender Information Value Date Recorded Sex Assigned at Not on file Legal Sex Female 3:34 AM MIDDLEWARE SOLUTIONS ARCHITECT Gender Identity Not on file Sexual Orientation Not on file documented as of this encounter Plan of Treatment Not on file documented as of this encounter Visit Diagnoses Diagnosis Mononeuritis of unspecified site- Primary documented in this encounter Care Teams Rover Tender Relationship Specialty Start Date End Date Adrienne March DO [address] [place] [phone] PCP - General Family Practice 06/30/10 documented as of this encounter
--- OUTSIDE RECORDS SUMMARY | 2025-09-01 18:19 | XMS_ITS | Encounter Summary ---
Author Organization [facility] Address [address] [place] [address] Care Team Providers Care Production Wood Craftsman Name Role Phone Adrienne March DO Primary Care Provider Encounter Details Date Type Department Care Team (Late st Contact Info) Description 08/09/2025 Results Follow-Up [facility] Medicine [place] [address] [place] [address] Wilsondecember, STRIPPER OPAQUER [address] [place] [address] POC URINALYSIS DIPSTICK AUTOMATED, URINE CULTURE Social History Tobacco Use Types Packs/Day Years [...] on file Legal Sex Female 6:27 AM NUCLEAR MEDICINE TECHNICIAN Gender Identity Not on file Sexual Orientation Not on file documented as of this encounter Plan of Treatment Upcoming Encounters Date Type Department Care Team (Late st Contact Info) Description 10/10/2025 10:40 AM NUCLEAR MEDICINE TECHNICIAN Procedure visit [facility] Ophthal[facility] [place] [address] [place] [phone] Davi Ferguson MD [address] [place] [phone] 10/25/2025 1:40 PM NUCLEAR MEDICINE TECHNICIAN Office Visit [facility] [address] [place] [phone] Adrienne March, DO [address] [place] [phone] 01/23/2026 11:20 AM CDT Office Visit [facility] [address] [place] [phone] Adrienne March, DO [address] [place] [phone] 04/22/2026 1:20 PM CDT Office Visit [facility] [address] [facility] [address] [place] [phone] Cori Ochoa, [facility] [address] [facility] [address] [place] [address] documented as of this encounter Visit Diagnoses Not on filedocumented in this encounter Additional Health Concerns Assessment Noted Time PHQ-9 Depression Total Score: 2 07/25/20 25 10:06 AM NUCLEAR MEDICINE TECHNICIAN documented as of this encounter Care Teams Production Wood Craftsman Relationship Specialty Start Date End Date Adrienne March DO [address] [place] [phone] PCP - General Family Practice 06/30/10 documented as of this encounter
--- OUTSIDE RECORDS SUMMARY | 2025-09-01 18:19 | XMS_ITS | Encounter Summary ---
Author Organization [facility] Address [address] [place] [address] Care Team Providers Care Pyrotechnic Mixer Name Role Phone Adrienne March DO Primary Care Provider +1- [phone] Encounter Details Date Type Department Care Team (Latest Contact Info) Description 01/31/2003 Outpatient Historical [facility] Jose Luis Mcmillan MD [address] [place] [address] BRACHIAL NEURITIS NOS (Primary Dx); CERVICALGIA; Cervical spondylosis Social History Tobacco Use Types Packs/Day Years Used Date Smoking Tobacco: Never Assessed Comments Unknown Sex and Gender Information Value Date Recorded Sex Assigned at Not on file Legal Sex Female 3:34 AM GAS OPERATIONS ANALYST Gender Identity Not on file Sexual Orientation Not on file documented as of this encounter Plan of Treatment Not on file documented as of this encounter Visit Diagnoses Diagnosis Brachial neuritis or radiculitis NOS- Primary Brachial neuritis or radiculitis nos Cervicalgia Cervical spondylosis Cervical spondylosis without myelopathy documented in this encounter Care Teams Pyrotechnic Mixer Relationship Specialty Start Date End Date Adrienne March DO [address] [place] [phone] PCP - General Family Practice 06/30/10 documented as of this encounter
--- OUTSIDE RECORDS SUMMARY | 2025-09-01 18:19 | XMS_ITS | Encounter Summary ---
Author Organization [facility] Address [address] [place] [address] Care Team Providers Care Gastroenterology Professor Name Role Phone Adrienne March DO Primary Care Provider Encounter Details Date Type Department Care Team (Latest Contact Info) Description 11/27/2003 Outpatient [facility] [address] [place] [address] [place] [address] [phone] Jose Luis Mcmillan MD [address] [place] [address] CERVICAL SPONDYLOSIS (Primary Dx) Social History Tobacco Use Types Packs/Day Years Used Date Smoking Tobacco: Never Assessed Comments Unknown Sex and Gender Information Value Date Recorded Sex Assigned at Not on file Legal Sex Female 3:34 AM DIE EQUIPMENT OPERATOR Gender Identity Not on file Sexual Orientation Not on file documented as of this encounter Plan of Treatment Not on file documented as of this encounter Visit Diagnoses Diagnosis Cervical spondylosis without myelopathy- Primary documented in this encounter Care Teams Gastroenterology Professor Relationship Specialty Start Date End Date Adrienne March DO [address] [place] [address] PCP - General Family Practice 06/30/10 documented as of this encounter
--- OUTSIDE RECORDS SUMMARY | 2025-09-01 18:19 | XMS_ITS | Encounter Summary ---
Author Organization [facility] Address [address] [place] [address] Care Team Providers Care Bag Mender Name Role Phone Adrienne March DO Primary Care Provider +1- [phone] Encounter Details Date Type Department Care Team (Late st Contact Info) Description 04/17/2003 Outpatient Historical [facility] Social History Tobacco Use Types Packs/Day Years Used Date Smoking Tobacco: Never Assessed Comments Unknown Sex and Gender Information Value Date Recorded Sex Assigned at Not on file Legal Sex Female 3:34 AM AUTOMOBILE PAINTER Gender Identity Not on file Sexual Orientation Not on file documented as of this encounter Plan of Treatment Not on file documented as of this encounter Visit Diagnoses Not on filedocumented in this encounter Care Teams Bag Mender Relationship Specialty Start Date End Date Adrienne March DO [address] [place] [address] PCP - General Family Practice 06/30/10 documented as of this encounter
--- OUTSIDE RECORDS SUMMARY | 2025-09-01 18:19 | XMS_ITS | Encounter Summary ---
Author Organization [facility] Address [address] [place] [address] Care Team Providers Care Certified Maintenance Welder Name Role Phone Adrienne March DO Primary Care Provider Encounter Details Date Type Department Care Team (Latest Contact Info) Description 07/31/2025 Results Follow-Up [facility] Medicine [place] [address] [place] [address] Adrienne March DO [address] [place] [address] POC URINALYSIS DIPSTICK NON AUTOMATED, CBC WITH DIFFERENTIAL, COMPREHENSIVE METABOLIC PANEL, Additional followed-up results: 6 Social History Tobacco Use Types Packs/Day Years [...] on file Legal Sex Female 6:27 AM AUTHOR'S AGENT Gender Identity Not on file Sexual Orientation Not on file documented as of this encounter Plan of Treatment Upcoming Encounters Date Type Department Care Team (Late st Contact Info) Description 10/10/2025 10:40 AM AUTHOR'S AGENT Procedure visit [facility] Ophthal[facility] [place] [address] [phone] Davi Ferguson MD [address] [place] [phone] 10/25/2025 1:40 PM AUTHOR'S AGENT Office Visit [facility] [address] [place] [phone] Adrienne March, DO [address] [place] [phone] 01/23/2026 11:20 AM CDT Office Visit [facility] [address] [place] [phone] Adrienne March, DO [address] [place] [phone] 04/22/2026 1:20 PM CDT Office Visit [facility] [address] [place] [address] Cori Ochoa, SHIFT COMMANDER [address] [facility] [address] [place] [phone] documented as of this encounter Visit Diagnoses Not on filedocumented in this encounter Additional Health Concerns Assessment Noted Time PHQ-9 Depression Total Score: 2 07/25/20 25 10:06 AM AUTHOR'S AGENT documented as of this encounter Care Teams Certified Maintenance Welder Relationship Specialty Start Date End Date Adrienne March DO [address] [place] [phone] PCP - General Family Practice 06/30/10 documented as of this encounter
--- OUTSIDE RECORDS SUMMARY | 2025-09-01 18:19 | XMS_ITS | Encounter Summary ---
Author Organization [facility] Address [address] [place] [address] Care Team Providers Care Spot Worker Name Role Phone Adrienne March DO Primary Care Provider Encounter Details Date Type Department Care Team (Latest Contact Info) Description 05/22/2003 Outpatient Historical [facility] Physical Therapy OP [address] [place] [address] [place] [phone] Wilfredo Michel MD [address] [phone] CERVICALGIA (Primary Dx) Social History Tobacco Use Types Packs/Day Years Used Date Smoking Tobacco: Never Assessed Comments Unknown Sex and Gender Information Value Date Recorded Sex Assigned at Not on file Legal Sex Female 3:34 AM DEPARTMENT CHAIR Gender Identity Not on file Sexual Orientation Not on file documented as of this encounter Plan of Treatment Not on file documented as of this encounter Visit Diagnoses Diagnosis Cervicalgia- Primary documented in this encounter Care Teams Spot Worker Relationship Specialty Start Date End Date Adrienne March DO [address] [place] [address] PCP - General Family Practice 06/30/10 documented as of this encounter
--- OUTSIDE RECORDS SUMMARY | 2025-09-01 18:19 | XMS_ITS | Encounter Summary ---
Author Organization [facility] Address [address] [place] [address] Care Team Providers Care Deep Sea Diver Name Role Phone Adrienne March DO Primary Care Provider +1- [phone] Encounter Details Date Type Department Care Team (Late st Contact Info) Description 04/24/2003 Outpatient Historical [facility] Social History Tobacco Use Types Packs/Day Years Used Date Smoking Tobacco: Never Assessed Comments Unknown Sex and Gender Information Value Date Recorded Sex Assigned at Not on file Legal Sex Female 3:34 AM SPECIAL AGENT SECRET SERVICE Gender Identity Not on file Sexual Orientation Not on file documented as of this encounter Plan of Treatment Not on file documented as of this encounter Visit Diagnoses Not on filedocumented in this encounter Care Teams Deep Sea Diver Relationship Specialty Start Date End Date Adrienne March DO [address] [place] [address] PCP - General Family Practice 06/30/10 documented as of this encounter
--- OUTSIDE RECORDS SUMMARY | 2025-09-01 18:19 | XMS_ITS | Encounter Summary ---
Author Organization [facility] Address [address] [place] [address] Care Team Providers Care Visual C Developer Name Role Phone Adrienne March DO Primary Care Provider +1- [phone] Encounter Details Date Type Department Care Team (Late st Contact Info) Description 04/24/2003 Outpatient Historical [facility] Social History Tobacco Use Types Packs/Day Years Used Date Smoking Tobacco: Never Assessed Comments Unknown Sex and Gender Information Value Date Recorded Sex Assigned at Not on file Legal Sex Female 3:34 AM COMMERCIAL RETOUCHER Gender Identity Not on file Sexual Orientation Not on file documented as of this encounter Plan of Treatment Not on file documented as of this encounter Visit Diagnoses Not on filedocumented in this encounter Care Teams Visual C Developer Relationship Specialty Start Date End Date Adrienne March DO [address] [place] [address] PCP - General Family Practice 06/30/10 documented as of this encounter
--- OUTSIDE RECORDS SUMMARY | 2025-09-01 18:19 | XMS_ITS | Encounter Summary ---
Author Organization [facility] Address [address] [place] [address] Care Team Providers Care Playground Attendant Name Role Phone Adrienne March DO Primary Care Provider Encounter Details Date Type Department Care Team (Latest Contact Info) Description 10/26/2003 Outpatient [facility] [address] [address] Jose Luis Mcmillan MD [address] [place] [address] PAIN IN LIMB (Primary Dx) Social History Tobacco Use Types Packs/Day Years Used Date Smoking Tobacco: Never Assessed Comments Unknown Sex and Gender Information Value Date Recorded Sex Assigned at Not on file Legal Sex Female 3:34 AM LEATHER ROLLER Gender Identity Not on file Sexual Orientation Not on file documented as of this encounter Plan of Treatment Not on file documented as of this encounter Visit Diagnoses Diagnosis Pain in limb- Primary documented in this encounter Care Teams Playground Attendant Relationship Specialty Start Date End Date Adrienne March DO [address] [place] [address] PCP - General Family Practice 06/30/10 documented as of this encounter
--- OUTSIDE RECORDS SUMMARY | 2025-09-01 18:19 | XMS_ITS | Encounter Summary ---
Author Organization [facility] Address [address] [place] [address] Care Team Providers Care Retail Product Demo Specialist Name Role Phone Adrienne March DO Primary Care Provider Encounter Details Date Type Department Care Team (Latest Contact Info) Description 09/27/2003 Outpatient Historical [facility]- 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 Gender Identity Not on file Sexual Orientation Not on file documented as of this encounter Plan of Treatment Not on file documented as of this encounter Visit Diagnoses Diagnosis Cervical spondylosis- Primary Cervical spondylosis without myelopathy Cervicalgia Cervical spinal stenosis Spinal stenosis in cervical region Brachial neuritis or radiculitis NOS Brachial neuritis or radiculitis nos documented in this encounter Care Teams Retail Product Demo Specialist Relationship Specialty Start Date End Date Adrienne March DO [address] [place] [address] PCP - General Family Practice 06/30/10 documented as of this encounter
--- OUTSIDE RECORDS SUMMARY | 2025-09-01 18:19 | XMS_ITS | Encounter Summary ---
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
--- OUTSIDE RECORDS SUMMARY | 2025-09-01 18:19 | XMS_ITS | Encounter Summary ---
Author Organization [facility] Address [address] [place] [address] Care Team Providers Care Terrestrial Ecologist Name Role Phone Adrienne March DO Primary Care Provider [phone] Encounter Details Date Type Department Care Team (Late st Contact Info) Description 10/01/2003 Inpatient Historical [facility] Jose Luis Mcmillan MD [address] [place] [address] CERVICAL DISC DISPLACMNT (Primary Dx) Social History [...] Primary documented in this encounter Care Teams Terrestrial Ecologist Relationship Specialty Start Date End Date Adrienne March DO [address] [place] [address] PCP - General Family Practice 06/30/10 documented as of this encounter
--- OUTSIDE RECORDS SUMMARY | 2025-09-01 18:19 | XMS_ITS | Encounter Summary ---
Author Organization [facility] Address [address] [place] [address] Care Team Providers Care National Account Manager Name Role Phone Adrienne March DO Primary Care Provider Encounter Details Date Type Department Care Team (Latest Contact Info) Description 06/22/2003 Outpatient Historical [facility] Physical Therapy [address] [place] [address] [place] [phone] Wilfredo Michel MD [address] [phone] CERVICALGIA (Primary Dx) Social History Tobacco Use Types Packs/Day Years Used Date Smoking Tobacco: Never Assessed Comments Unknown Sex and Gender Information Value Date Recorded Sex Assigned at Not on file 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
--- OUTSIDE RECORDS SUMMARY | 2025-09-01 18:19 | XMS_ITS | Encounter Summary ---
Author Organization [facility] Address [address] [place] [address] Care Team Providers Care Surgical Clinical Reviewer Name Role Phone Adrienne March DO Primary Care Provider [phone] Encounter Details Date Type Department Care Team (Latest Contact Info) Description 04/21/2003 Outpatient Historical [facility] Physical Therapy [address] [place] [address] [place] [phone] Wilfredo Michel MD [address] [phone] CERVICALGIA (Primary Dx) Social History Tobacco Use Types Packs/Day Years Used Date Smoking Tobacco: Never Assessed Comments Unknown Sex and Gender Information Value Date Recorded Sex Assigned at Not on file 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
--- OUTSIDE RECORDS SUMMARY | 2025-09-01 18:19 | XMS_ITS | Encounter Summary ---
Author Organization [facility] Address [address] [place] [address] Care Team Providers Care Clerical Methods Analyst Name Role Phone Adrienne March DO Primary Care Provider Encounter Details Date Type Department Care Team (Latest Contact Info) Description 04/30/2003 [facility] [address] [place] [address] Wilfredo Michel MD [address] [address] BRACHIAL NEURITIS NOS (Primary Dx); MYALGIA AND MYOSITIS NOS Social History Tobacco Use Types Packs/Day Years Used Date Smoking Tobacco: Never Assessed Comments Unknown Sex and Gender Information Value Date Recorded Sex Assigned at Not on file 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
--- OUTSIDE RECORDS SUMMARY | 2025-09-01 18:20 | XMS_ITS | Encounter Summary ---
Author Organization 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
--- OUTSIDE RECORDS SUMMARY | 2025-09-01 18:20 | XMS_ITS | Encounter Summary ---
Author Organization [facility] Address [address] [place] [address] Care Team Providers Care Customer Service Representative Name Role Phone Adrienne March DO Primary Care Provider Encounter Details Date Type Department Care Team (Late st Contact Info) Description 09/30/2007 Outpatient Historical [facility] Medicine- [place] [address] [place] [address] Alexei [place] MD [address] [place] [address] Social History Tobacco Use Types Packs/Day Years Used Date Smoking Tobacco: Never Assessed Comments Unknown Sex and Gender Information Value Date Recorded Sex Assigned at Not on file 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
--- OUTSIDE RECORDS SUMMARY | 2025-09-01 18:20 | XMS_ITS | Encounter Summary ---
Author Organization [facility] Address [address] [place] [address] Care Team Providers Care Architectural Draftsperson Name Role Phone Adrienne March DO Primary Care Provider Encounter Details Date Type Department Care Team (Late st Contact Info) Description 02/01/2008 Outpatient Historical [address] Neuro [address] [place] [address] Ed, Physician NO ADDRESS ON FILE Marcelino Sauceda MD NO ADDRESS ON FILE Sushil Enrique MD [address] [place] [phone] Social History Tobacco Use Types Packs/Day Years Used Date Smoking Tobacco: Never Assessed Comments Unknown Sex and Gender Information Value Date Recorded Sex Assigned at Not on file 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 Sex 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 Gender Identity Not on file Sexual [...] GLUCOSE POC 216(H) 60 - 100 mg/dL [facility] Venous blood specimen (specimen) 02/06/2008 6:49 AM CDT 02/07/2008 6:53 AM CDT us Sushil Enrique MD POINT OF CARE TESTING Final Res ult [facility] CLIA# [id number] [address] [place] [address] * CLOSTRIDIUM DIFFICILE TOXIN (02/05/2008 10:03 PM CDT) C DIFFICILE TOXIN Negative Negative [facility] 02/05/2008 10:0 3 PM CDT 02/05/2008 10:03 PM CDT Sushil Enrique MD MICROBIOLOGY - GENERAL ORDERABL ES Final Result Performing Organization Address [facility] Co de Phone Number [facility] CLIA# [id number] [address] [place] [address] * (ABNORMAL) POC GLUCOSE (02/05/2008 8:47 PM CDT) GLUCOSE POC 116(H) 60 - 100 mg/dL [facility] Venous blood specimen (specimen) 02/05/2008 8:47 PM CDT 02/06/2008 12:45 AM CDT Sushil Enrique MD POINT OF CARE TESTING Final Res ult Performing Organization Address [facility] Co de Phone Number [facility] CLIA# [id number] [address] [place] [address] * (ABNORMAL) POC GLUCOSE (02/05/2008 4:38 PM CDT) GLUCOSE POC 276(H) 60 - 100 mg/dL [facility] Venous blood specimen (specimen) 02/05/2008 4:38 PM CDT 02/06/2008 12:57 AM CDT Sushil Enrique MD POINT OF CARE TESTING Final Res ult Performing Organization Address [facility] Co de Phone Number [facility] CLIA# [id number] [address] [place] [address] * (ABNORMAL) POC GLUCOSE (02/05/2008 11:08 AM CDT) GLUCOSE POC 157(H) 60 - 100 mg/dL [facility] Venous blood specimen (specimen) 02/05/2008 11:08 AM CDT 02/05/2008 12:24 PM CDT Sushil Enrique MD POINT OF CARE TESTING Final Res ult Performing Organization Address [facility] Co de Phone Number [facility] CLIA# [id number] [address] [place] [address] * (ABNORMAL) POC GLUCOSE (02/05/2008 7:52 AM CDT) [facility] Signature GLUCOSE POC 168(H) 60 - 100 mg/dL [facility] Venous blood specimen (specimen) 02/05/2008 7:52 AM CDT 02/05/2008 12:24 PM CDT Sushil Enrique MD POINT OF CARE TESTING Final Res ult Performing Organization Address [facility] de Phone Number [facility] CLIA# [id number] [address] [place] [address] * PHENYTOIN LEVEL, TOTAL (02/05/2008 6:00 AM CDT) [facility] PHENYTOIN TOTAL 11.4 10.0 - 20.0 ug/mL [facility] Blood specimen (specimen) 02/05/2008 6:00 AM CDT 02/05/2008 6:21 AM CDT Sushil Enrique MD CHEMISTRY ORDERABLES Final Resu lt Performing Organization Address [facility] de Phone Number [facility] CLIA# [id number] [address] [place] [address] * (ABNORMAL) CBC WITH DIFFERENTIAL (02/04/2008 10:22 PM CDT) BASOPHILS 0.3 0.0 - 1.0 % [facility] MPV 10.0 8.9 - 12.8 Fl [facility] BASOPHILS ABSOLUTE 0.0 0.0 - 0.2 K/ul [facility] HEMOGLOBIN 14.7 12.0 - 16.0 g/dL [facility] MONOCYTES 7.6 2.0 - 10.0 % [facility] RDW 13.6 11.0 - 14.5 % [facility] MONOCYTE ABSOLUTE 0.9(H) 0.1 - 0.6 K/ul [facility] WBC 11.9(H) 4.8 - 10.8 K/ul [facility] NEUTROPHILS 75.7(H) 42.2 - 75.2 % [facility] MCH 28.4 27.0 - 34.0 pg [facility] NEUTROPHIL ABSOLUTE 9.0(H) 2.0 - 8.0 K/ul [facility] HEM COMMENT REDRAWN:15 11 [facility] HEMATOCRIT 46.8(H) 36.0 - 46.0 % [facility] PLATELETS 354 140 - 440 K/ul [facility] EOSINOPHIL ABSOLUTE 0.1 0.0 - 0.7 K/ul [facility] EOSINOPHILS 0.9 0.0 - 7.0 % [facility] RBC 5.18 4.20 - 5.40 Mil/ul [facility] MCHC 31.4 30.0 - 35.0 g/dL [facility] LYMPHOCYTE ABSOLUTE 1.9 1.2 - 4.0 K/ul [facility] LYMPHOCYTES 15.5(L) 24.0 - 44.0 % [facility] MCV 90.3 84.0 - 103.0 Fl [facility] Blood specimen (specimen) 02/04/2008 10:22 PM CDT 02/04/2008 10:22 PM CDT us Sushil Enrique MD HEMATOLOGY ORDERABLES Edited [facility] CLIA# [id number] [address] [place] [address] * (ABNORMAL) POC GLUCOSE (02/04/2008 8:43 PM CDT) GLUCOSE POC 225(H) 60 - 100 mg/dL [facility] Venous blood specimen (specimen) 02/04/2008 8:43 PM CDT 02/04/2008 11:46 PM CDT us Sushil Enrique MD POINT OF CARE TESTING Final Res ult Performing Organization Address [facility] Co de Phone Number [facility] CLIA# [id number] [address] [place] [address] * (ABNORMAL) POC GLUCOSE (02/04/2008 5:23 PM CDT) GLUCOSE POC 153(H) 60 - 100 mg/dL [facility] Venous blood specimen (specimen) 02/04/2008 5:23 PM CDT 02/04/2008 11:42 PM CDT us Sushil Enrique MD POINT OF CARE TESTING Final Res ult Performing Organization Address [facility] Co de Phone Number [facility] CLIA# [id number] [address] [place] [address] * PHENYTOIN LEVEL, TOTAL (02/04/2008 3:11 PM CDT) PHENYTOIN TOTAL 12.4 10.0 - 20.0 ug/mL [facility] Blood specimen (specimen) 02/04/2008 3:11 PM CDT 02/04/2008 3:32 PM CDT us Sushil Enrique MD CHEMISTRY ORDERABLES Final Resu lt Performing Organization Address City/[facility]/ZIP Co de Phone Number [facility] CLIA# [id number] [address] [place] [address] * AMYLASE (02/04/2008 3:11 PM CDT) Pathologist [facility] AMYLASE 20 20 - 104 U/L [facility] Blood specimen (specimen) 02/04/2008 3:11 PM CDT 02/04/2008 3:32 PM CDT Sushil Enrique MD CHEMISTRY ORDERABLES Final Resu lt [facility] CLIA# [id number] [address] [place] [address] * (ABNORMAL) COMPREHENSIVE METABOLIC PANEL (02/04/2008 3:11 PM CDT) [facility] ALBUMIN 4.0 3.5 - 5.0 g/dL [facility] POTASSIUM 3.8 3.5 - 5.0 mEq/L [facility] GLOBULIN (CALC) 3.0 2.4 - 3.9 g/dL [facility] CREATININE 1.2 0.7 - 1.2 mg/dL [facility] CALCIUM 9.3 8.4 - 10.5 mg/dL [facility] ALT 28 4 - 36 IU/L [facility] OSMOLALITY, CALCULATED 290 275 - 295 mOsm/Kg [facility] GLUCOSE 156(H) 70 - 110 mg/dL [facility] CHLORIDE 99 95 - 110 mEq/L [facility] ALKALINE PHOSPHATASE 103(H) 25 - 100 U/L [facility] ALBUMIN/GLOBULIN RATIO 1.3 1.0 - 2.3 [facility] SODIUM 139 136 - 145 mEq/L [facility] TOTAL PROTEIN 7.0 6.3 - 8.2 g/dL [facility] BILIRUBIN TOTAL 0.2(L) 0.3 - 1.2 mg/dL [facility] BUN 15 7 - 17 mg/dL [facility] AST 24 8 - 33 U/L [facility] CO2 32 22 - 32 mmol/l [facility] ANION GAP 12 9 - 20 mEq/L [facility] Blood specimen (specimen) 02/04/2008 3:11 PM CDT 02/04/2008 3:32 PM CDT Sushil Enrique MD CHEMISTRY ORDERABLES Final Resu lt Performing Organization Address [facility] Co de Phone Number [facility] CLIA# [id number] [address] [place] [address] * (ABNORMAL) POC GLUCOSE (02/04/2008 12:44 PM CDT) GLUCOSE POC 150(H) 60 - 100 mg/dL [facility] Venous blood specimen (specimen) 02/04/2008 12:44 PM CDT 02/04/2008 11:42 PM CDT Sushil Enrique MD POINT OF CARE TESTING Final Res ult Performing Organization Address [facility] de Phone Number [facility] CLIA# [id number] [address] [place] [address] * (ABNORMAL) POC GLUCOSE (02/04/2008 8:55 AM CDT) GLUCOSE POC 247(H) 60 - 100 mg/dL [facility] Venous blood specimen (specimen) 02/04/2008 8:55 AM CDT 02/04/2008 11:42 PM CDT Sushil Enrique MD POINT OF CARE TESTING Final Res ult Performing Organization Address [facility] de Phone Number [facility] CLIA# [id number] [address] [place] [address] * (ABNORMAL) POC GLUCOSE (02/03/2008 10:35 PM CDT) GLUCOSE POC 209(H) 60 - 100 mg/dL [facility] Venous blood specimen (specimen) 02/03/2008 10:35 PM CDT 02/04/2008 1:59 AM CDT Sushil Enrique MD POINT OF CARE TESTING Final Res ult Performing Organization Address [facility] Co de Phone Number [facility] CLIA# [id number] [address] [place] [address] * (ABNORMAL) POC GLUCOSE (02/03/2008 4:56 PM CDT) GLUCOSE POC 317(H) 60 - 100 mg/dL [facility] Venous blood specimen (specimen) 02/03/2008 4:56 PM CDT 02/04/2008 1:55 AM CDT us Sushil Enrique MD POINT OF CARE TESTING Final Res ult Performing Organization Address [facility] de Phone Number [facility] CLIA# [id number] [address] [place] [address] * (ABNORMAL) POC GLUCOSE (02/03/2008 11:53 AM CDT) GLUCOSE POC 213(H) 60 - 100 mg/dL [facility] Venous blood specimen (specimen) 02/03/2008 11:53 AM CDT 02/04/2008 11:08 AM CDT Sushil Enrique MD POINT OF CARE TESTING Final Res ult Performing Organization Address [facility] de Phone Number [facility] CLIA# [id number] [address] [place] [address] * (ABNORMAL) POC GLUCOSE (02/03/2008 5:16 AM CDT) GLUCOSE POC 256(H) 60 - 100 mg/dL [facility] Venous blood specimen (specimen) 02/03/2008 5:16 AM CDT 02/03/2008 6:38 AM CDT Sushil Enrique MD POINT OF CARE TESTING Final Res ult Performing Organization Address [facility] Co de Phone Number [facility] CLIA# [id number] [address] [place] [address] * PHENYTOIN LEVEL, TOTAL (02/03/2008 4:06 AM CDT) PHENYTOIN TOTAL 15.8 10.0 - 20.0 ug/mL [facility] Blood specimen (specimen) 02/03/2008 4:06 AM CDT 02/03/2008 4:06 AM CDT Sushil Enrique MD CHEMISTRY ORDERABLES Final Resu lt Performing Organization Address [facility] de Phone Number [facility] CLIA# [id number] [address] [place] [address] * (ABNORMAL) POC GLUCOSE (02/02/2008 8:14 PM CDT) GLUCOSE POC 189(H) 60 - 100 mg/dL [facility] Venous blood specimen (specimen) 02/02/2008 8:14 PM CDT 02/03/2008 6:38 AM CDT Sushil Enrique MD POINT OF CARE TESTING Final Res ult Performing Organization Address [facility] de Phone Number [facility] CLIA# [id number] [address] [place] [address] * (ABNORMAL) POC GLUCOSE (02/02/2008 4:34 PM CDT) GLUCOSE POC 243(H) 60 - 100 mg/dL [facility] Venous blood specimen (specimen) 02/02/2008 4:34 PM CDT 02/03/2008 6:38 AM CDT us Sushil Enrique MD POINT OF CARE TESTING Final Res ult Performing Organization Address [facility] de Phone Number [facility] CLIA# [id number] [address] [place] [address] * PHENYTOIN LEVEL, TOTAL (02/02/2008 3:19 PM CDT) PHENYTOIN TOTAL 18.5 10.0 - 20.0 ug/mL [facility] Blood specimen (specimen) 02/02/2008 3:19 PM CDT 02/02/2008 3:28 PM CDT us Marley Dietrich MD CHEMISTRY ORDERABLES Final Resul t Performing Organization Address [facility] Phone Number [facility] CLIA# [id number] [address] [place] [address] * (ABNORMAL) POC GLUCOSE (02/02/2008 1:27 PM CDT) GLUCOSE POC 386(H) 60 - 100 mg/dL [facility] Venous blood specimen (specimen) 02/02/2008 1:27 PM CDT 02/03/2008 6:38 AM CDT us Sushil Enrique MD POINT OF CARE TESTING Final Res ult Performing Organization Address [facility] de Phone Number [facility] CLIA# [id number] [address] [place] [address] * (ABNORMAL) PHENYTOIN LEVEL, TOTAL (02/02/2008 12:11 PM CDT) PHENYTOIN TOTAL 0.9(L) 10.0 - 20.0 ug/mL [facility] Blood specimen (specimen) 02/02/2008 12:11 PM CDT 02/02/2008 12:23 PM CDT Sushil Enrique MD CHEMISTRY ORDERABLES Final Resu lt Performing Organization Address [facility] Co de Phone Number [facility] CLIA# [id number] [address] [place] [address] * (ABNORMAL) POC GLUCOSE (02/02/2008 12:08 PM CDT) GLUCOSE POC 401(H) 60 - 100 mg/dL [facility] Venous blood specimen (specimen) 02/02/2008 12:08 PM CDT 02/03/2008 6:38 AM CDT us Sushil Enrique MD POINT OF CARE TESTING Final Res ult Performing Organization Address [facility] de Phone Number [facility] CLIA# [id number] [address] [place] [address] * MRSA CULTURE (02/02/2008 9:56 AM CDT) FINAL REPORT Culture screen for MRSA negative INTERFACE SYSTEM 02/02/2008 9:56 AM CDT 02/02/2008 8:37 PM CDT us Sushil Enrique MD MICROBIOLOGY - GENERAL ORDERABL ES Final Result Performing Organization Address [facility] de Phone Number INTERFACE SYSTEM Refer to clinic/hospital department * (ABNORMAL) POC GLUCOSE (02/02/2008 6:40 AM CDT) GLUCOSE POC 393(H) 60 - 100 mg/dL [facility] Venous blood specimen (specimen) 02/02/2008 6:40 AM CDT 02/03/2008 1:57 AM CDT us Sushil Enrique MD POINT OF CARE TESTING Final Res ult Performing Organization Address [facility] Co de Phone Number [facility] CLIA# [id number] [address] [place] [address] * (ABNORMAL) LIPID PANEL (02/02/2008 6:10 AM CDT) CHOLESTEROL 220(H) 0 - 200 mg/dL [facility] Comment: On 01/23/2008 [facility] changed the cholesterol reference range to 0-200 mg/dl. This is the recommendation of the National Cholesterol Education Program (NCEP-ATPIII). CALCULATED LDL CHOLESTEROL 117(H) 0 - 100 mg/dL [facility] Comment: On 01/23/2008 [facility] changed the LDL reference range to 0- 100 mg/dl. This is the recommendation of the National Cholesterol Education Program (NCEP-ATPIII). HDL 40 40 - 60 mg/dL [facility] CALCULATED TOTAL CHOLESTEROL TO HDL RATIO 5.50(H) 3.27 - 4.44 [facility] TRIGLYCERIDE 315(H) 0 - 150 mg/dL [facility] Comment: On 01/23/2008, [facility] changed the triglyceride reference range to 0-150 mg/dl. This is the recommendation of the National Cholesterol Education Program (NCEP-ATPIII). Blood specimen (specimen) 02/02/2008 6:10 AM CDT 02/02/2008 6:31 AM CDT us Sushil Enrique MD CHEMISTRY ORDERABLES Final Resu lt [facility] CLIA# [id number] [address] [place] [address] * (ABNORMAL) URINALYSIS (02/02/2008 5:10 AM CDT) Pathologist [facility] LEUKOCYTE ESTERASE UA NEGATIVE NEGATIVE [facility] KETONES UA NEGATIVE NEGATIVE [facility] MICRO EXAM No No [facility] COLOR UA Yellow Straw [facility] PROTEIN UA NEGATIVE NEGATIVE [facility] BLOOD UA NEGATIVE NEGATIVE [facility] NITRITE UA NEGATIVE NEGATIVE [facility] UROBILINOGEN UA 0.2 0.2 [facility] CLARITY UA Clear Clear [facility] SPECIFIC GRAVITY UA 1.020 <=1.005 [facility] GLUCOSE UA >=1000 mg/dl(A) NEGATIVE [facility] PH UA 6.0 5.0 - 9.0 [facility] BILIRUBIN UA NEGATIVE NEGATIVE [facility] Urine specimen (specimen) 02/02/2008 5:10 AM CDT 02/02/2008 5:10 AM CDT us Marcelino Sauceda MD URINE ORDERABLES Final Result [facility] CLIA# [id number] [address] [place] [address] * MRI BRAIN W WO CONTRAST (02/01/2008 [...] calvarial lesions. Additional thin section postcontrast fat-saturated [id number] images were obtained through the orbits. No [...] CDT) RBC 5.24 4.20 - 5.40 Mil/ul [facility] LYMPHOCYTES 23.8(L) 24.0 - 44.0 % [facility] MCHC 32.7 30.0 - 35.0 g/dL [facility] LYMPHOCYTE ABSOLUTE 2.2 1.2 - 4.0 K/ul [facility] MCV 87.0 84.0 - 103.0 Fl [facility] MPV 9.4 8.9 - 12.8 Fl [facility] BASOPHILS ABSOLUTE 0.0 0.0 - 0.2 K/ul [facility] BASOPHILS 0.2 0.0 - 1.0 % [facility] HEMOGLOBIN 14.9 12.0 - 16.0 g/dL [facility] RDW 13.2 11.0 - 14.5 % [facility] MONOCYTE ABSOLUTE 0.6 0.1 - 0.6 K/ul [facility] MONOCYTES 6.4 2.0 - 10.0 % [facility] WBC 9.2 4.8 - 10.8 K/ul [facility] MCH 28.4 27.0 - 34.0 pg [facility] NEUTROPHIL ABSOLUTE 6.2 2.0 - 8.0 K/ul [facility] NEUTROPHILS 67.4 42.2 - 75.2 % [facility] HEMATOCRIT 45.6 36.0 - 46.0 % [facility] EOSINOPHILS 2.2 0.0 - 7.0 % [facility] PLATELETS 282 140 - 440 K/ul [facility] EOSINOPHIL ABSOLUTE 0.2 0.0 - 0.7 K/ul [facility] Blood specimen (specimen) 02/01/2008 7:34 PM CDT 02/01/2008 7:34 PM CDT us Marcelino Sauceda MD HEMATOLOGY ORDERABLES Final Res ult [facility] CLIA# [id number] [address] [place] [address] * PT AND APTT (02/01/2008 7:34 PM CDT) PROTIME 13.5 12.8 - 15.8 Secs [facility] Comment:As of 2007 not e change in normal range. INR 0.9 [facility] Comment: Expected Values for INR: DVT/PE Goal INR 2.5; range 2.0 - 3.0 Valve Replacement Tissue Goal INR 2.5; range 2.0 - 3.0 Mechanical Goal INR 3.0; range 2.5 - 3.5 POST-WY Goal INR 2.5; range 2.0 - 3.0 or Goal 3.0; range 2.5 - 3.5 Atrial Fibrillation Goal INR 2.5; range 2.0 - 3.0 Ischemic Stroke Goal INR 2.5; range 2.0 - 3.0 For additional information see Guidelines for Anticoagulation available from the pharmacy Ciara Bradley [phone] PTT 27.7 22.5 - 36.5 Secs [facility] Comment: Therapeutic Range: Hi-level PE/DVT heparin protocol 80.1 -95.0 sec Lo-level PE/DVT heparin protocol 67.1 - 80.0 sec Cardiac Heparin Protocol 67.1 - 85.0 sec Neuro Heparin Protocol 67.1 - 80.0 sec As of 12/08/2007 note change in APTT Normal Range. Blood specimen (specimen) 02/01/2008 7:34 PM CDT 02/01/2008 7:34 PM CDT us Marcelino Sauceda MD HEMATOLOGY ORDERABLES Edited [facility] CLIA# [id number] [address] [place] [address] * (ABNORMAL) BASIC METABOLIC PANEL (02/01/2008 7:34 PM CDT) OSMOLALITY, CALCULATED 296(H) 275 - 295 mOsm/Kg [facility] POTASSIUM 3.9 3.5 - 5.0 mEq/L [facility] CREATININE 1.1 0.7 - 1.2 mg/dL [facility] CALCIUM 9.6 8.4 - 10.5 mg/dL [facility] GLUCOSE 283(H) 70 - 110 mg/dL [facility] CHLORIDE 100 95 - 110 mEq/L [facility] SODIUM 139 136 - 145 mEq/L [facility] ANION GAP 11 9 - 20 mEq/L [facility] BUN 13 7 - 17 mg/dL [facility] CO2 32 22 - 32 mmol/l [facility] Blood specimen (specimen) 02/01/2008 7:34 PM CDT 02/01/2008 7:34 PM CDT us Marcelino Sauceda MD CHEMISTRY ORDERABLES Final Resu lt Performing Organization Address City/State/[facility] Co de Phone Number [facility] CLIA# [id number] [address] [place] [address] documented in this encounter Visit Diagnoses Not on filedocumented in this encounter Care Teams Architectural Draftsperson Relationship Specialty Start Date End Date Adrienne March DO [address] [place] [address] PCP - General Family Practice 06/30/10 documented as of this encounter
--- OUTSIDE RECORDS SUMMARY | 2025-09-01 18:20 | XMS_ITS | Encounter Summary ---
Author Organization [facility] Address [address] 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
--- OUTSIDE RECORDS SUMMARY | 2025-09-01 18:20 | XMS_ITS | Encounter Summary ---
Author Organization [facility] Address [address] [place] [address] Care Team Providers Care Scouring Machine Tender Name Role Phone Adrienne March DO Primary Care Provider [phone] Encounter Details Date Type Department Care Team (Latest Contact Info) Description 03/21/2003 Outpatient Historical [facility] Physical Therapy [address] [place] [id number] Wilfredo Michel MD [address] [phone] CERVICALGIA (Primary Dx) Social History Tobacco Use Types Packs/Day Years Used Date Smoking Tobacco: Never Assessed Comments Unknown Sex and Gender Information Value Date Recorded Sex Assigned at Not on file 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
--- OUTSIDE RECORDS SUMMARY | 2025-09-01 18:20 | XMS_ITS | Encounter Summary ---
Author Organization [facility] Address [address] [place] [address] Care Team Providers Care Director Of Academic Support Name Role Phone Adrienne March DO Primary Care Provider +1- [phone] Encounter Details Date Type Department Care Team (Latest Contact Info) Description 02/13/2003 Outpatient Historical [facility] Jose Luis Mcmillan MD [address] [place] [address] CERVICALGIA (Primary Dx); Cervical disc displacmnt; Cervical spondylosis; Cervical spinal stenosis Social History Tobacco Use Types Packs/Day Years Used Date Smoking Tobacco: Never Assessed Comments Unknown Sex and Gender Information Value Date Recorded Sex Assigned at Not on file Legal Sex Female 3:34 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 Gender Identity Not on file Sexual Orientation Not on file documented as of this encounter Plan of Treatment Not on file documented as of this encounter Visit Diagnoses Diagnosis Cervicalgia- Primary Cervical disc displacmnt Displacement of cervical intervertebral disc without myelopathy Cervical spondylosis Cervical spondylosis without myelopathy Cervical spinal stenosis Spinal stenosis in cervical region documented in this encounter Care Teams Director Of Academic Support Relationship Specialty Start Date End Date Adrienne March DO [address] [place] [address] PCP - General Family Practice 06/30/10 documented as of this encounter
--- OUTSIDE RECORDS SUMMARY | 2025-09-01 18:20 | XMS_ITS | Encounter Summary ---
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
--- OUTSIDE RECORDS SUMMARY | 2025-09-01 18:20 | XMS_ITS | Encounter Summary ---
Author Organization [facility] Address [address] [place] [address] Care Team Providers Care Treasury Consultant Name Role Phone Adrienne March DO Primary Care Provider [phone] Encounter Details Date Type Department Care Team (Late st Contact Info) Description 09/28/2007 Outpatient Historical [facility] Medicine- [place] [address] [place] [address] Alexei Elizabeth MD [address] [place] [address] Social History Tobacco Use Types Packs/Day Years Used Date Smoking Tobacco: Never Assessed Comments Unknown Sex and Gender Information Value Date Recorded Sex Assigned at Not on file 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
--- OUTSIDE RECORDS SUMMARY | 2025-09-01 18:20 | XMS_ITS | Encounter Summary ---
Author Organization [facility] Address [address] [place] [address] Care Team Providers Care Window/Distribution Clerk Name Role Phone Adrienne March DO Primary Care Provider Encounter Details Date Type Department Care Team (Latest Contact Info) Description 07/15/2001 Outpatient Historical [facility] [address] [phone] Lesly Jones MD NO ADDRESS ON FILE Other screening mammogram (Primary Dx) Social History Tobacco Use Types Packs/Day Years Used Date Smoking Tobacco: Never Assessed Comments Unknown Sex and Gender Information Value Date Recorded Sex Assigned at Not on file Legal Sex Female 3:34 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
--- OUTSIDE RECORDS SUMMARY | 2025-09-01 18:20 | XMS_ITS | Encounter Summary ---
Author Organization [facility] Address [address] [place] [address] Care Team Providers Care Photographic Spotter Name Role Phone Adrienne March DO Primary Care Provider [phone] Encounter Details Date Type Department Care Team (Late st Contact Info) Description 10/04/2007 Outpatient Historical [facility] Gen Spec Surg [place] 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 R MAKING MACHINE OPERATOR R MAKING MACHINE OPERATOR documented in this encounter Plan of Treatment Not on file documented as of this encounter Visit Diagnoses Not on filedocumented in this encounter Care Teams Photographic Spotter Relationship Specialty Start Date End Date Adrienne March DO [address] [place] [phone] PCP - General Family Practice 06/30/10 documented as of this encounter
--- OUTSIDE RECORDS SUMMARY | 2025-09-01 18:20 | XMS_ITS | Encounter Summary ---
Author Organization [facility] Address [address] [place] [address] Care Team Providers Care Nut Sorter Name Role Phone Adrienne March DO Primary Care Provider Encounter Details Date Type Department Care Team (Latest Contact Info) Description 07/13/2001 Outpatient Historical [facility] [address] [place] [address] [place] NO ADDRESS ON FILE Pain in limb (Primary Dx) Social History Tobacco Use Types Packs/Day Years Used Date Smoking Tobacco: Never Assessed Comments Unknown Sex and Gender Information Value Date Recorded Sex Assigned at Not on file Legal Sex Female 3:34 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
--- OUTSIDE RECORDS SUMMARY | 2025-09-01 18:20 | XMS_ITS | Encounter Summary ---
Author Organization [facility] Address [address] [place] [address] Care Team Providers Care Electroneurodiagnostic Technician Name Role Phone Adrienne March Primary Care Provider [phone] Encounter Details Date Type Department Care Team (Late st Contact Info) Description 11/15/2007 Outpatient Historical [facility] Gen Spec Surg [place] [address] [place] [address] Ketan Lew MD [address] [place] [address] Social History Tobacco Use Types Packs/Day Years Used Date Smoking Tobacco: Never Assessed Comments Unknown Sex and Gender Information Value Date Recorded Sex Assigned at Not on file Legal Sex Female 3:34 AM TELEPHONE MAINTAINER Gender Identity Not on file Sexual [...] , A, trina Job #: Document #: [id number] cc: Alexei Dubon D.O. PHONE MAINTAINER documented in this encounter Plan of Treatment Not on file documented as of this encounter Visit Diagnoses Not on filedocumented in this encounter Care Teams Electroneurodiagnostic Technician Relationship Specialty Start Date End Date Adrienne March DO [address] [place] [address] PCP - General Family Practice 06/30/10 documented as of this encounter
--- OUTSIDE RECORDS SUMMARY | 2025-09-01 18:20 | XMS_ITS | Encounter Summary ---
Author Organization [facility] Address [address] [place] [address] Care Team Providers Care Casket Liner Name Role Phone Adrienne March DO Primary Care Provider +1- [phone] Encounter Details Date Type Department Care Team (Late st Contact Info) Description 11/08/2001 Outpatient Historical 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
--- OUTSIDE RECORDS SUMMARY | 2025-09-01 18:20 | XMS_ITS | Encounter Summary ---
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
--- OUTSIDE RECORDS SUMMARY | 2025-09-01 18:20 | XMS_ITS | Encounter Summary ---
Author Organization [facility] Address [address] [place] [address] Care Team Providers Care Menhaden Fishing Crew Member Name Role Phone Adrienne March DO Primary Care Provider Encounter Details Date Type Department Care Team (Late st Contact Info) Description 09/06/2007 Outpatient Historical [facility] Gen Spec Surg [place] 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
--- OUTSIDE RECORDS SUMMARY | 2025-09-01 18:20 | XMS_ITS | Encounter Summary ---
Author Organization [facility] Address [address] [place] [address] Care Team Providers Care Poultry Tender Name Role Phone Adrienne March DO Primary Care Provider +1- [phone] Encounter Details Date Type Department Care Team (Late st Contact Info) Description 09/22/2001 Outpatient Historical [facility] Social History Tobacco Use Types Packs/Day Years Used Date Smoking Tobacco: Never Assessed Comments Unknown Sex and Gender Information Value Date Recorded Sex Assigned at Not on file Legal Sex Female 3:34 AM MOLD SHOP SUPERVISOR Gender Identity Not on file Sexual Orientation Not on file documented as of this encounter Plan of Treatment Not on file documented as of this encounter Visit Diagnoses Not on filedocumented in this encounter Care Teams Poultry Tender Relationship Specialty Start Date End Date Adrienne March DO [address] [place] [address] PCP - General Family Practice 06/30/10 documented as of this encounter
--- OUTSIDE RECORDS SUMMARY | 2025-09-01 18:20 | XMS_ITS | Encounter Summary ---
Author Organization [facility] Address [address] [place] [address] Care Team Providers Care Plant Production Worker Name Role Phone Adrienne March DO Primary Care Provider Encounter Details Date Type Department Care Team (Late st Contact Info) Description 12/16/2017 Ancillary Orders [facility] [address] [place] 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
--- OUTSIDE RECORDS SUMMARY | 2025-09-01 18:20 | XMS_ITS | Encounter Summary ---
Author Organization [facility] Address [address] [place] [address] Care Team Providers Care Plater Apprentice Name Role Phone Adrienne March DO Primary Care Provider Encounter Details Date Type Department Care Team (Latest Contact Info) Description 03/16/2003 Outpatient Historical [facility] Wilfredo Michel MD [address] [phone] JOINT PAIN-SHLDER (Primary Dx) Social History Tobacco Use Types Packs/Day Years Used Date Smoking Tobacco: Never Assessed Comments Unknown Sex and Gender Information Value Date Recorded Sex Assigned at Not on file Legal Sex Female 3:34 AM MANAGER OFFICE SERVICES Gender Identity Not on file Sexual Orientation Not on file documented as of this encounter Plan of Treatment Not on file documented as of this encounter Visit Diagnoses Diagnosis Pain in joint, shoulder region- Primary documented in this encounter Care Teams Plater Apprentice Relationship Specialty Start Date End Date Adrienne March DO [address] [place] [address] PCP - General Family Practice 06/30/10 documented as of this encounter
--- OUTSIDE RECORDS SUMMARY | 2025-09-01 18:20 | XMS_ITS | Encounter Summary ---
Author Organization [facility] Address [address] 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
--- OUTSIDE RECORDS SUMMARY | 2025-09-01 18:20 | XMS_ITS | Encounter Summary ---
Author Organization [facility] Address [address] [place] [address] Care Team Providers Care Accounts Receivable Clerk Name Role Phone Adrienne March DO Primary Care Provider Encounter Details Date Type Department Care Team (Late st Contact Info) Description 10/24/2007 Outpatient Historical [facility] Medicine- [place] [address] [place] [address] Gamal Bass, RN [facility] [address] [place] [address] Social History Tobacco Use Types Packs/Day Years Used Date Smoking Tobacco: Never Assessed Comments Unknown Sex and Gender Information Value Date Recorded Sex Assigned at Not on file 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
--- OUTSIDE RECORDS SUMMARY | 2025-09-01 18:20 | XMS_ITS | Encounter Summary ---
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
--- OUTSIDE RECORDS SUMMARY | 2025-09-01 18:20 | XMS_ITS | Encounter Summary ---
Author Organization [facility] Address [address] 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
--- OUTSIDE RECORDS SUMMARY | 2025-09-01 18:20 | XMS_ITS | Encounter Summary ---
Author Organization [facility] Address [address] [place] [address] Care Team Providers Care Vacuum Caster Name Role Phone Adrienne March DO Primary Care Provider Encounter Details Date Type Department Care Team (Late st Contact Info) Description 11/03/2024 Lab Requisition [facility] [place] [address] [place] [address] December, PROJECT MANAGER/DESIGN MANAGER [address] [place] [address] COVID-19 Social History Tobacco Use [...] on file Legal Sex Female 6:27 AM INTERVENTIONAL RADIOLOGIST Gender Identity Not on file Sexual Orientation Not on file documented as of this encounter Plan of Treatment Upcoming Encounters Date Type Department Care Team (Late st Contact Info) Description 10/10/2025 10:40 AM INTERVENTIONAL RADIOLOGIST Procedure visit [facility] [address] [place] [address] Davi Ferguson MD [address] [place] [address] 10/25/2025 1:40 PM INTERVENTIONAL RADIOLOGIST Office Visit [facility] [address] [place] [address] Adrienne March, DO [address] [place] [address] 01/23/2026 11:20 AM CDT Office Visit [facility] [address] [place] [address] Adrienne March, DO [address] [place] [address] 04/22/2026 1:20 PM CDT Office Visit [facility] [address] [place] [address] Cori Ochoa, PROJECT MANAGER/DESIGN MANAGER [address] [place] [address] documented as of this encounter Procedures Procedure Name Priority Date/Time Associated Diagnosis Comments CBC WITH DIFFERENTIAL Stat 11/03/2024 12:15 PM INTERVENTIONAL RADIOLOGIST COVID-19 documented in this encounter Results * (ABNORMAL) CBC WITH DIFFERENTIAL (11/03/2024 12:15 PM INTERVENTIONAL RADIOLOGIST) WBC 9.6 4.0 - 10.0 K/uL 11/03/2024 12:24 PM [facility] RBC 3.54(L) 3.93 - 5.22 M/uL 11/03/2024 12:24 PM [facility] HEMOGLOBIN 10.9(L) 11.2 - 15.7 g/dL 11/03/2024 12:24 PM [facility] HEMATOCRIT 33.6(L) 34.1 - 44.9 % 11/03/2024 12:24 PM [facility] MCV 94.9(H) 79.4 - 94.8 fL 11/03/2024 12:24 PM [facility] MCH 30.8 25.6 - 32.2 pg 11/03/2024 12:24 PM [facility] MCHC 32.4 32.2 - 35.5 g/dL 11/03/2024 12:24 PM [facility] RDW 13.8 11.0 - 14.5 % 11/03/2024 12:24 PM [facility] RDW-STDEV 47.8 36.9 - 56.9 fL 11/03/2024 12:24 PM [facility] PLATELETS 256 163 - 337 K/uL 11/03/2024 12:24 PM [facility] MPV 8.2(L) 10.0 - 14.8 fL 11/03/2024 12:24 PM [facility] NEUTROPHILS 60 34 - 71 % 11/03/2024 12:24 PM [facility] LYMPHOCYTES 17(L) 19 - 52 % 11/03/2024 12:24 PM [facility] MONOCYTES 8 5 - 13 % 11/03/2024 12:24 PM [facility] EOSINOPHILS 15(H) 1 - 6 % 11/03/2024 12:24 PM [facility] BASOPHILS 1 0 - 1 % 11/03/2024 12:24 PM [facility] IMMATURE GRANULOCYTES 1 % 11/03/2024 12:24 PM [facility] NEUTROPHIL ABSOLUTE 5.71 1.56 - 6.13 K/uL 11/03/2024 12:24 PM [facility] LYMPHOCYTE ABSOLUTE 1.60 1.20 - 3.40 K/uL 11/03/2024 12:24 PM [facility] MONOCYTE ABSOLUTE 0.72(H) 0.24 - 0.36 K/uL 11/03/2024 12:24 PM [facility] EOSINOPHIL ABSOLUTE 1.46(H) 0.04 - 0.36 K/uL 11/03/2024 12:24 PM [facility] BASOPHILS ABSOLUTE 0.06 0.01 - 0.08 K/uL 11/03/2024 12:24 PM [facility] IMMATURE GRANULOCYTES ABSOLUTE 0.05 K/uL 11/03/2024 12:24 PM [facility] Blood Collection / Unknown 11/03/2024 12:15 PM INTERVENTIONAL RADIOLOGIST 11/03/2024 12:21 PM INTERVENTIONAL RADIOLOGIST December PROJECT MANAGER/DESIGN MANAGER HEMATOLOGY ORDERABLES Final Resu lt [facility] CLIA # [id number] [address] [place] [address] documented in this encounter Visit Diagnoses Diagnosis COVID-19 documented in this encounter Additional Health Concerns Infection Onset Date Last Indicated Resolved Time COVID-19 10/30/2024 10/30/2024 11/19/2024 1:16 AM INTERVENTIONAL RADIOLOGIST documented as of this encounter Care Teams Vacuum Caster Relationship Specialty Start Date End Date Adrienne March DO [address] [place] [address] PCP - General Family Practice 06/30/10 documented as of this encounter
--- OUTSIDE RECORDS SUMMARY | 2025-09-01 18:20 | XMS_ITS | Encounter Summary ---
Author Organization [facility] Address [address] [place] [address] Care Team Providers Care Photographic Process Worker Name Role Phone Adrienne March DO Primary Care Provider Encounter Details Date Type Department Care Team (Latest Contact Info) Description 10/26/2001 Outpatient [facility] [place] [address] [place] [address] Abel Hurtado, DPM NO ADDRESS ON FILE Pain in limb (Primary Dx) Social History Tobacco Use Types Packs/Day Years Used Date Smoking Tobacco: Never Assessed Comments Unknown Sex and Gender Information Value Date Recorded Sex Assigned at Not on file Legal Sex Female 3:34 AM REHABILITATION THERAPIST Gender Identity Not on file Sexual Orientation Not on file documented as of this encounter Plan of Treatment Not on file documented as of this encounter Visit Diagnoses Diagnosis Pain in limb- Primary Pain in soft tissues of limb documented in this encounter Care Teams Photographic Process Worker Relationship Specialty Start Date End Date Adrienne March DO [address] [place] [address] PCP - General Family Practice 06/30/10 documented as of this encounter
--- OUTSIDE RECORDS SUMMARY | 2025-09-01 18:20 | XMS_ITS | Encounter Summary ---
Author Organization [facility] Address [address] [place] [address] Care Team Providers Care Incendiaries Supervisor Name Role Phone Adrienne March DO Primary Care Provider Encounter Details Date Type Department Care Team (Late st Contact Info) Description 03/25/2020 Ancillary Orders [facility] Medicine [place] [address] [place] [address] Adrienne March DO [address] [place] [address] Crushing injury of left elbow, initial encounter Social History Tobacco Use Types Packs/Day Years Used Date Smoking Tobacco: Never Smokeless Tobacco: Never Alcohol Use Standard Drinks/Week Comments No 0 (1 standard drink = 0.6 oz pur e alcohol) Comments No Sex and Gender Information Value Date Recorded Sex Assigned at Not on file Legal Sex Female 3:34 AM INSURANCE CLAIM APPROVER Gender Identity Not on file Sexual Orientation [...] without evidence of an acute osseous abnormality. [id number] Narrative 03/25/2020 2:46 PM CDT Exam: XR [...] without evidence of an acute osseous abnormality. [id number] Adrienne March DO DIAGNOSTIC IMAGING ORDERABL ES Final Result documented in this encounter Visit Diagnoses Diagnosis Crushing injury of left elbow, initial encounter Crushing injury of left elbow, initial encounter documented in this encounter Care Teams Incendiaries Supervisor Relationship Specialty Start Date End Date Ardienne March DO [address] [place] [address] PCP - General Family Practice 06/30/10 documented as of this encounter
--- OUTSIDE RECORDS SUMMARY | 2025-09-01 18:20 | XMS_ITS | Encounter Summary ---
Author Organization [facility] Address [address] [place] [address] Care Team Providers Care Subway Train Driver Name Role Phone Adrienne March DO Primary Care Provider Encounter Details Date Type Department Care Team (Late st Contact Info) Description 02/03/2003 Outpatient Historical [facility] Imaging Services [address] [address] Jose Luis Mcmillan MD [address] [place] [address] Social History Tobacco Use Types Packs/Day Years Used Date Smoking Tobacco: Never Assessed Comments Unknown Sex and Gender Information Value Date Recorded Sex Assigned at Not on file 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
--- OUTSIDE RECORDS SUMMARY | 2025-09-01 18:20 | XMS_ITS | Encounter Summary ---
Author Organization [facility] Address [address] 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
--- OUTSIDE RECORDS SUMMARY | 2025-09-01 18:20 | XMS_ITS | Encounter Summary ---
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
--- OUTSIDE RECORDS SUMMARY | 2025-09-01 18:20 | XMS_ITS | Encounter Summary ---
Author Organization [facility] Address [address] [place] [address] Care Team Providers Care Medical Educator Name Role Phone Adrienne March DO Primary Care Provider [phone] Encounter Details Date Type Department Care Team (Late st Contact Info) Description 02/01/2008 Outpatient Historical [facility] [address] 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
--- OUTSIDE RECORDS SUMMARY | 2025-09-01 18:20 | XMS_ITS | Encounter Summary ---
Author Organization [facility] Address [address] [place] [address] Care Team Providers Care Security Operations Manager Name Role Phone Adrienne March DO Primary Care Provider [phone] Encounter Details Date Type Department Care Team (Latest Contact Info) Description 03/16/2003 [facility]patient [facility] [address] [place] [address] Wilfredo Michel MD [address] [address] BRACHIAL NEURITIS NOS (Primary Dx) Social History Tobacco Use Types Packs/Day Years Used Date Smoking Tobacco: Never Assessed Comments Unknown Sex and Gender Information Value Date Recorded Sex Assigned at Not on file 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
--- OUTSIDE RECORDS SUMMARY | 2025-09-01 18:20 | XMS_ITS | Encounter Summary ---
Author Organization [facility] Address [address] [place] [address] Care Team Providers Care Data Capture Clerk Name Role Phone AncaAdrienne forbes Primary Care Provider Encounter Details Date Type Department Care Team (Late st Contact Info) Description 01/24/2008 Emergency [facility] Emergency Department [address] 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 Probable contamination at collection. If clinically indicated, please submit an appropriately collected specimen. INTERFACE SYSTEM 01/24/2008 9:49 PM CDT 01/24/2008 9:49 PM CDT us John Power MD MICROBIOLOGY - GENERAL ORD ERABLES Final Result INTERFACE SYSTEM Refer to clinic/hospital department * (ABNORMAL) POC GLUCOSE (01/24/2008 6:31 PM CDT) Pathologist [facility] GLUCOSE POC 366(H) 60 - 100 mg/dL [facility] COMMENT POC Called [facility] Venous blood specimen (specimen) 01/24/2008 6:31 PM CDT 01/25/2008 7:33 AM CDT us John Power MD POINT OF CARE TESTING Rosetta l Result [facility] [address] [place] [address] * (ABNORMAL) URINALYSIS (01/24/2008 4:54 PM CDT) PH UA 6.5 5.0 - 9.0 [facility] BLOOD UA NEGATIVE NEGATIVE [facility] LEUKOCYTE ESTERASE UA NEGATIVE NEGATIVE [facility] UROBILINOGEN UA 0.2 0.2 [facility] COLOR UA Yellow Straw [facility] PROTEIN UA NEGATIVE NEGATIVE [facility] SPECIFIC GRAVITY UA 1.010 <=1.005 [facility] NITRITE UA NEGATIVE NEGATIVE [facility] BILIRUBIN UA NEGATIVE NEGATIVE [facility] CLARITY UA SL CLOUDY Clear [facility] GLUCOSE UA >=1000 mg/dl(A) NEGATIVE [facility] KETONES UA NEGATIVE NEGATIVE [facility] MICRO EXAM Yes(A) No [facility] Urine specimen (specimen) 01/24/2008 4:54 PM CDT 01/24/2008 4:54 PM CDT John Power MD URINE ORDERABLES Final Res ult Performing Organization Address [facility] de Phone Number [facility] [address] [place] [address] * (ABNORMAL) URINALYSIS MICROSCOPY ONLY (01/24/2008 4:54 PM CDT) RBC UA None Seen 0 - 2 [facility] HYALINE CAST None Seen 0 - 2 [facility] BACTERIA UA Few(A) None Seen [facility] WBC URINE 0-2 0 - 2 [facility] Urine specimen (specimen) 01/24/2008 4:54 PM CDT 01/24/2008 4:54 PM CDT John Power MD URINE ORDERABLES Final Res ult Performing Organization Address [facility] de Phone Number [facility] [address] [place] [address] * CT HEAD WO CONTRAST (01/24/2008 2:43 [...] CDT) TSH 2.930 0.350 - 5.500 uIU/ml [facility] Blood specimen (specimen) 01/24/2008 2:06 PM CDT 01/24/2008 2:55 PM CDT us John Power MD CHEMISTRY ORDERABLES Final Result [facility] [address] [place] [address] * T4 FREE (01/24/2008 2:06 PM CDT) [facility] T4 FREE 0.90 0.89 - 1.76 ng/dL [facility] Blood specimen (specimen) 01/24/2008 2:06 PM CDT 01/24/2008 2:55 PM CDT John Power MD CHEMISTRY ORDERABLES Final Result Performing Organization Address [facility] de Phone Number [facility] [address] [place] [address] * (ABNORMAL) BASIC METABOLIC PANEL (01/24/2008 2:06 PM CDT) [facility] ANION GAP 11 9 - 20 mEq/L [facility] SODIUM 138 136 - 145 mEq/L [facility] BUN 15 7 - 17 mg/dL [facility] CO2 31 22 - 32 mmol/l [facility] POTASSIUM 4.9 3.5 - 5.0 mEq/L [facility] Comment: Specimen slightly hemolyzed OSMOLALITY, CALCULATED 308(H) 275 - 295 mOsm/Kg [facility] CREATININE 1.3(H) 0.7 - 1.2 mg/dL [facility] CALCIUM 9.4 8.4 - 10.5 mg/dL [facility] GLUCOSE 490(H) 70 - 110 mg/dL [facility] CHLORIDE 101 95 - 110 mEq/L [facility] Blood specimen (specimen) 01/24/2008 2:06 PM CDT 01/24/2008 2:13 PM CDT us Carlos A Henao MD CHEMISTRY ORDERABLES Final Resul t Performing Organization Address [facility] Co de Phone Number [facility] [address] [place] [address] * PT AND APTT (01/24/2008 2:06 PM CDT) PTT 27.0 22.5 - 36.5 Secs [facility] Comment: Therapeutic Range: Hi-level PE/DVT heparin protocol 80.1 -95.0 sec Lo-level PE/DVT heparin protocol 67.1 - 80.0 sec Cardiac Heparin Protocol 67.1 - 85.0 sec Neuro Heparin Protocol 67.1 - 80.0 sec As of 12/08/2007 note change in APTT Normal Range. PROTIME 13.3 12.8 - 15.8 Secs [facility] Comment:As of 2007 not e change in normal range. INR 0.9 [facility] Comment: Expected Values for INR: DVT/PE Goal INR 2.5; range 2.0 - 3.0 Valve Replacement Tissue Goal INR 2.5; range 2.0 - 3.0 Mechanical Goal INR 3.0; range 2.5 - 3.5 POST-CT Goal INR 2.5; range 2.0 - 3.0 or Goal 3.0; range 2.5 - 3.5 Atrial Fibrillation Goal INR 2.5; range 2.0 - 3.0 Ischemic Stroke Goal INR 2.5; range 2.0 - 3.0 For additional information see Guidelines for Anticoagulation available from the pharmacy [facility] [phone] Blood specimen (specimen) 01/24/2008 2:06 PM CDT 01/24/2008 2:13 PM CDT Carlos A Henao MD HEMATOLOGY ORDERABLES Edited [facility] [address] [place] [address] * (ABNORMAL) CBC WITH DIFFERENTIAL (01/24/2008 2:06 PM CDT) Pathologist [facility] MCV 87.5 84.0 - 103.0 Fl [facility] MPV 9.8 8.9 - 12.8 Fl [facility] MONOCYTE ABSOLUTE 0.6 0.1 - 0.6 K/ul [facility] BASOPHILS 0.5 0.0 - 1.0 % [facility] HEMOGLOBIN 15.0 12.0 - 16.0 g/dL [facility] RDW 13.4 11.0 - 14.5 % [facility] MONOCYTES 7.2 2.0 - 10.0 % [facility] WBC 8.6 4.8 - 10.8 K/ul [facility] MCH 27.9 27.0 - 34.0 pg [facility] NEUTROPHIL ABSOLUTE 5.6 2.0 - 8.0 K/ul [facility] NEUTROPHILS 65.0 42.2 - 75.2 % [facility] PERIPHERAL BLOOD SMEAR REVIEW Automated Diff [facility] EOSINOPHIL ABSOLUTE 0.2 0.0 - 0.7 K/ul [facility] HEMATOCRIT 47.1(H) 36.0 - 46.0 % [facility] EOSINOPHILS 2.7 0.0 - 7.0 % [facility] PLATELETS 290 140 - 440 K/ul [facility] RBC 5.38 4.20 - 5.40 Mil/ul [facility] LYMPHOCYTES 24.6 24.0 - 44.0 % [facility] MCHC 31.8 30.0 - 35.0 g/dL [facility] BASOPHILS ABSOLUTE 0.0 0.0 - 0.2 K/ul [facility] LYMPHOCYTE ABSOLUTE 2.1 1.2 - 4.0 K/ul [facility] Blood specimen (specimen) 01/24/2008 2:06 PM CDT 01/24/2008 2:13 PM CDT us Carlos A Henao MD HEMATOLOGY ORDERABLES Final Resu lt [facility] [address] [place] [address] * (ABNORMAL) POC GLUCOSE (01/24/2008 2:01 PM CDT) GLUCOSE POC >500(AA) 60 - 100 mg/dL [facility] COMMENT POC Lab Confirm [facility] Venous blood specimen (specimen) 01/24/2008 2:01 PM CDT 01/26/2008 6:56 AM CDT us John Power MD POINT OF CARE TESTING Rosetta terrazas Result [facility] [address] [place] [place] [address] documented in this encounter Visit Diagnoses Not on filedocumented in this encounter Care Teams Data Capture Clerk Relationship Specialty Start Date End Date Adrienne March DO [address] [place] [address] PCP - General Family Practice 06/30/10 documented as of this encounter
--- OUTSIDE RECORDS SUMMARY | 2025-09-01 18:20 | XMS_ITS | Encounter Summary ---
Author Organization [facility] Address [address] [place] [address] Care Team Providers Care Domestic Housekeeper Name Role Phone Adrienne March DO Primary Care Provider [phone] Encounter Details Date Type Department Care Team (Latest Contact Info) Description 08/18/2001 Outpatient [facility] Podiatry-[facility] [address] [place] [address] Abel Hurtado, DPM NO ADDRESS ON FILE Pain in limb (Primary Dx) Social History Tobacco Use Types Packs/Day Years Used Date Smoking Tobacco: Never Assessed Comments Unknown Sex and Gender Information Value Date Recorded Sex Assigned at Not on file 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
--- OUTSIDE RECORDS SUMMARY | 2025-09-01 18:21 | XMS_ITS | Encounter Summary ---
Author Organization [facility] Address [address] [place] [address] Care Team Providers Care Slasher Hand Name Role Phone Adrienne March DO Primary Care Provider Encounter Details Date Type Department Care Team (Latest Contact Info) Description 04/19/[address] [facility] Gen Spec Surg [place] 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
--- OUTSIDE RECORDS SUMMARY | 2025-09-01 18:21 | XMS_ITS | Encounter Summary ---
Author Organization [facility] Address [address] [place] [address] Care Team Providers Care Superintendent Production Name Role Phone Adrienne March DO Primary Care Provider Encounter Details Date Type Department Care Team (Latest Contact Info) Description 03/29/2007 Outpatient Historical [facility] Gen Spec Surg [place] 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
--- OUTSIDE RECORDS SUMMARY | 2025-09-01 18:21 | XMS_ITS | Encounter Summary ---
Author Organization [facility] Address [address] [place] [address] Care Team Providers Care Night Patrol Inspector Name Role Phone Adrienne March Primary Care Provider Encounter Details Date Type Department Care Team (Latest Contact Info) Description 01/13/2007 Outpatient Historical [facility] Cardiac Traveling Storekeeper [address] [place] [phone] López Harry MD NO ADDRESS ON FILE Unspecified Chest Pain (Primary Dx) Social History Tobacco Use Types Packs/Day Years Used Date Smoking Tobacco: Never Assessed Comments Unknown Sex and Gender Information Value Date Recorded Sex Assigned at Not on file 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 Gender Identity Not on file Sexual Orientation [...] Goal INR 3.0; range 2.5 - 3.5 POST-VT Goal INR 2.5; range 2.0 - 3.0 [...] HEMATOLOGY ORDERABLES Edite d Performing Organization Address [facility] Phone Number INTERFACE SYSTEM Refer to clinic/hospital department * C-REACTIVE PROTEIN (01/13/2007 6:04 AM CDT) CRP 0.98 0.00 - 1.00 mg/dL INTERFACE SYSTEM 01/13/2007 6:04 AM CDT us López Harry MD CHEMISTRY ORDERABLES Edited Performing Organization Address [facility] Phone Number INTERFACE SYSTEM [...] Primary documented in this encounter Care Teams Night Patrol Inspector Relationship Specialty Start Date End Date Adrienne March DO [address] [place] [phone] PCP - General Family Practice 06/30/10 documented as of this encounter
--- OUTSIDE RECORDS SUMMARY | 2025-09-01 18:21 | XMS_ITS | Encounter Summary ---
Author Organization [facility] Address [address] [place] [address] Care Team Providers Care Bilingual Customer Service Name Role Phone Adrienne March DO Primary Care Provider Encounter Details Date Type Department Care Team (Latest Contact Info) Description 05/17/2007 Outpatient Historical [facility] Gen Spec Surg [place] 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
--- OUTSIDE RECORDS SUMMARY | 2025-09-01 18:21 | XMS_ITS | Encounter Summary ---
Author Organization [facility] Address [address] [place] [address] Care Team Providers Care Digital Media Planner Name Role Phone Adrienne March DO Primary Care Provider Encounter Details Date Type Department Care Team (Latest Contact Info) Description 06/07/2007 Outpatient Historical [facility] Cardiovascular Services [address] [place] [address] Ketan Lew MD [address] [address] Swelling of Limb (Primary Dx) Social History Tobacco Use Types Packs/Day Years Used Date Smoking Tobacco: Never Assessed Comments Unknown Sex and Gender Information Value Date Recorded Sex Assigned at Not on file 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
--- OUTSIDE RECORDS SUMMARY | 2025-09-01 18:21 | XMS_ITS | Encounter Summary ---
Author Organization [facility] Address [address] [place] [address] Care Team Providers Care Automation And Control Engineer Name Role Phone Ardienne March DO Primary Care Provider Encounter Details Date Type Department Care Team (Latest Contact Info) Description 03/26/2005 Outpatient Historical [facility] Orthopedics- 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
--- OUTSIDE RECORDS SUMMARY | 2025-09-01 18:21 | XMS_ITS | Encounter Summary ---
Author Organization [facility] Address [address] [place] [address] Care Team Providers Care Shearer Operator Name Role Phone Adrienne March DO Primary Care Provider [phone] Encounter Details Date Type Department Care Team (Latest Contact Info) Description 06/07/2007 Outpatient Historical [facility] Gen Spec Surg [place] 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
--- OUTSIDE RECORDS SUMMARY | 2025-09-01 18:21 | XMS_ITS | Encounter Summary ---
Author Organization [facility] Address [address] [place] [address] Care Team Providers Care Electronics Warfare Technician Name Role Phone Adrienne March DO Primary Care Provider [phone] Encounter Details Date Type Department Care Team (Latest Contact Info) Description 11/23/2005 Outpatient Historical [facility] Orthopedics- [address] [place] 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
--- OUTSIDE RECORDS SUMMARY | 2025-09-01 18:21 | XMS_ITS | Encounter Summary ---
Author Organization [facility] Address [address] [place] [address] Care Team Providers Care Watch Repair Technician Name Role Phone Adrienne March DO Primary Care Provider Encounter Details Date Type Department Care Team (Latest Contact Info) Description 03/08/[address] [facility] Gen Spec Surg [place] 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
--- OUTSIDE RECORDS SUMMARY | 2025-09-01 18:21 | XMS_ITS | Encounter Summary ---
Author Organization [facility] Address [address] [place] [address] Care Team Providers Care Air Traffic Control Manager Name Role Phone Adrienne March DO Primary Care Provider Encounter Details Date Type Department Care Team (Latest Contact Info) Description 07/28/2007 Outpatient Historical [facility] Gen Spec Surg [place] 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
--- OUTSIDE RECORDS SUMMARY | 2025-09-01 18:21 | XMS_ITS | Encounter Summary ---
Author Organization [facility] Address [address] [place] [address] Care Team Providers Care It Business Systems Analyst Name Role Phone Adrienne March DO Primary Care Provider Encounter Details Date Type Department Care Team (Latest Contact Info) Description 03/08/2007 Outpatient Historical [facility] Plastic Surgery 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
--- OUTSIDE RECORDS SUMMARY | 2025-09-01 18:21 | XMS_ITS | Clinical Summary ---
Author Organization [facility] Address [address] [facility] [address] [place] [address] Care Team Providers Care Insulation Foreman Name Role Phone Unavailable Primary Care Provider Unavailabl e Encounters Date Type Department Care Team Description 08/08/2025 Telephone [facility] [address] [address] Bartolo Stanton MD from Last 3 Months Social History Tobacco Use Types Packs/Day Years Used Date Smoking Tobacco: Never Assessed Comments Unknown Sex and Gender Information Value Date Recorded Sex Assigned at Not on file Legal Sex Female 9:22 AM EDT Gender Identity Not on file Sexual Orientation Not on file Plan of Treatment Upcoming Encounters Date Type Department Care Team (Late st Contact Info) Description 10/02/2025 10:30 AM AUTO BODY SERVICE MECHANIC Office Visit [facility] [address] [place] [address] Bartolo Stanton MD [address] [facility] [address] [place] [address] Health Maintenance Due Date Last Done Comments Diabetes: Hemoglobin A1C 04/05/2025 05/23/2020 Diabetes: Ophthalmology Exam 04/05/2025 Diabetes: Pedal Pulse Checked 04/05/2025 Diabetes: Sensory Foot Exam 04/05/2025 Diabetes: Visual Foot Exam 04/05/2025 Pneumococcal Vaccine: 50+ Years Completed 01/11/2017, 10/24/2014, 06/30/2010 Influenza Vaccine Completed 07/25/2025, , 08/06/2022, Additional history exists Hepatitis B Vaccine Aged Out No longe r eligible based on patient's age to complete this topic Insurance [facility] ([id number]) Medicaid [place] ([id number])
--- OUTSIDE RECORDS SUMMARY | 2025-09-01 18:21 | XMS_ITS | Encounter Summary ---
Author Organization [facility] Address [address] [place] [address] Care Team Providers Care Wire Machine Cutter Name Role Phone Adrienne March DO Primary Care Provider Encounter Details Date Type Department Care Team (Latest Contact Info) Description 02/25/2006 Outpatient Historical [facility] Orthopedics- 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
--- OUTSIDE RECORDS SUMMARY | 2025-09-01 18:21 | XMS_ITS | Encounter Summary ---
Author Organization [facility] Address [address] [place] [address] Care Team Providers Care Project Program Manager Name Role Phone Adrienne March DO Primary Care Provider Encounter Details Date Type Department Care Team (Latest Contact Info) Description 08/06/2005 Outpatient Historical [facility] Orthopedics- [address] [place] 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
--- OUTSIDE RECORDS SUMMARY | 2025-09-01 18:21 | XMS_ITS | Encounter Summary ---
Author Organization [facility] Address [address] [place] [address] Care Team Providers Care Glass Robot Operator Name Role Phone Adrienne March Primary Care Provider Encounter Details Date Type Department Care Team (Late st Contact Info) Description 02/15/2007 Inpatient Historical HIS IN BED Ketan Lew MD [address] [address] Posttraumatic Wound Infection not Elsewhere Classified (Primary Dx) Social History Tobacco Use Types Packs/Day Years Used Date Smoking Tobacco: Never Assessed Comments Unknown Sex and Gender Information Value Date Recorded Sex Assigned at Not on file Legal Sex Female 3:34 AM PUBLIC SAFETY DIRECTOR Gender Identity Not on file Sexual [...] OF CARE TESTING Edited Performing Organization Address [facility] Phone Number INTERFACE SYSTEM Refer to clinic/hospital department * (ABNORMAL) POC GLUCOSE (02/21/2007 6:12 AM CDT) GLUCOSE POC 116(H) 60 - 100 mg/dL INTERFACE SYSTEM 02/21/2007 6:12 AM CDT us Ketan Lew MD POINT OF CARE TESTING Edited Performing Organization Address [facility] Phone Number INTERFACE SYSTEM Refer to clinic/hospital department * (ABNORMAL) POC GLUCOSE (02/20/2007 9:07 PM CDT) GLUCOSE POC 141(H) 60 - 100 mg/dL INTERFACE SYSTEM 02/20/2007 9:07 PM CDT us Ketan Lew MD POINT OF CARE TESTING Edited Performing Organization Address [facility] Phone Number INTERFACE SYSTEM Refer to clinic/hospital department * (ABNORMAL) POC GLUCOSE (02/20/2007 5:32 PM CDT) GLUCOSE POC 102(H) 60 - 100 mg/dL INTERFACE SYSTEM 02/20/2007 5:32 PM CDT us Ketan Lew MD POINT OF CARE TESTING Edited Performing Organization Address [facility] Phone Number INTERFACE SYSTEM Refer to clinic/hospital department * (ABNORMAL) POC GLUCOSE (02/20/2007 11:55 AM CDT) GLUCOSE POC 55(L) 60 - 100 mg/dL INTERFACE SYSTEM 02/20/2007 11:5 5 AM CDT us Ketan Lew MD POINT OF CARE TESTING Edited Performing Organization Address [facility] de Phone Number INTERFACE SYSTEM Refer to clinic/hospital department * (ABNORMAL) POC GLUCOSE (02/20/2007 6:25 AM CDT) GLUCOSE POC 119(H) 60 - 100 mg/dL INTERFACE SYSTEM 02/20/2007 6:25 AM CDT us Ketan Lew MD POINT OF CARE TESTING Edited Performing Organization Address [facility] Phone Number INTERFACE SYSTEM Refer to clinic/hospital department * (ABNORMAL) POC GLUCOSE (02/19/2007 8:48 PM CDT) GLUCOSE POC 115(H) 60 - 100 mg/dL INTERFACE SYSTEM 02/19/2007 8:48 PM CDT us Ketan Lew MD POINT OF CARE TESTING Edited Performing Organization Address [facility] de Phone Number INTERFACE SYSTEM Refer to clinic/hospital department * (ABNORMAL) POC GLUCOSE (02/19/2007 5:23 PM CDT) GLUCOSE POC 108(H) 60 - 100 mg/dL INTERFACE SYSTEM 02/19/2007 5:23 PM CDT us Ketan Lew MD POINT OF CARE TESTING Edited Performing Organization Address [facility] de Phone Number INTERFACE SYSTEM Refer to clinic/hospital department * POC GLUCOSE (02/19/2007 11:35 AM CDT) GLUCOSE POC 75 60 - 100 mg/dL INTERFACE SYSTEM 02/19/2007 11:3 5 AM CDT us Ketan Lew MD POINT OF CARE TESTING Edited Performing Organization Address [facility] de Phone Number INTERFACE SYSTEM Refer to clinic/hospital department * (ABNORMAL) POC GLUCOSE (02/19/2007 7:12 AM CDT) GLUCOSE POC 123(H) 60 - 100 mg/dL INTERFACE SYSTEM 02/19/2007 7:12 AM CDT us Ketan Lew MD POINT OF CARE TESTING Edited Performing Organization Address [facility] Phone Number INTERFACE SYSTEM Refer to clinic/hospital department * (ABNORMAL) POC GLUCOSE (02/18/2007 9:23 PM CDT) GLUCOSE POC 158(H) 60 - 100 mg/dL INTERFACE SYSTEM 02/18/2007 9:23 PM CDT us Ketan Lew MD POINT OF CARE TESTING Edited Performing Organization Address [facility] Phone Number INTERFACE SYSTEM Refer to clinic/hospital department * POC GLUCOSE (02/18/2007 5:26 PM CDT) GLUCOSE POC 87 60 - 100 mg/dL INTERFACE SYSTEM 02/18/2007 5:26 PM CDT us Ketan Lew MD POINT OF CARE TESTING Edited Performing Organization Address [facility] Phone Number INTERFACE SYSTEM Refer to clinic/hospital department * POC GLUCOSE (02/18/2007 11:31 AM CDT) GLUCOSE POC 93 60 - 100 mg/dL INTERFACE SYSTEM 02/18/2007 11:3 1 AM CDT us Ketan Lew MD POINT OF CARE TESTING Edited Performing Organization Address [facility] de Phone Number INTERFACE SYSTEM Refer to clinic/hospital department * (ABNORMAL) POC GLUCOSE (02/18/2007 6:23 AM CDT) GLUCOSE POC 125(H) 60 - 100 mg/dL INTERFACE SYSTEM 02/18/2007 6:23 AM CDT us Ketan Lew MD POINT OF CARE TESTING Edited Performing Organization Address [facility] de Phone Number INTERFACE SYSTEM Refer to clinic/hospital department * (ABNORMAL) POC GLUCOSE (02/17/2007 8:10 PM CDT) GLUCOSE POC 182(H) 60 - 100 mg/dL INTERFACE SYSTEM 02/17/2007 8:10 PM CDT us Ketan Lew MD POINT OF CARE TESTING Edited Performing Organization Address [facility] de Phone Number INTERFACE SYSTEM Refer to clinic/hospital department * (ABNORMAL) POC GLUCOSE (02/17/2007 4:41 PM CDT) GLUCOSE POC 122(H) 60 - 100 mg/dL INTERFACE SYSTEM 02/17/2007 4:41 PM CDT us Ketan Lew MD POINT OF CARE TESTING Edited Performing Organization Address [facility] de Phone Number INTERFACE SYSTEM Refer to clinic/hospital department * (ABNORMAL) POC GLUCOSE (02/17/2007 11:02 AM CDT) GLUCOSE POC 115(H) 60 - 100 mg/dL INTERFACE SYSTEM 02/17/2007 11:0 2 AM CDT us Ketan Lew MD POINT OF CARE TESTING Edited Performing Organization Address [facility] de Phone Number INTERFACE SYSTEM Refer to clinic/hospital department * (ABNORMAL) POC GLUCOSE (02/17/2007 5:54 AM CDT) GLUCOSE POC 147(H) 60 - 100 mg/dL INTERFACE SYSTEM 02/17/2007 5:54 AM CDT us Ketan Lew MD POINT OF CARE TESTING Edited Performing Organization Address [facility] de Phone Number INTERFACE SYSTEM Refer to clinic/hospital department * (ABNORMAL) POC GLUCOSE (02/16/2007 8:30 PM CDT) GLUCOSE POC 121(H) 60 - 100 mg/dL INTERFACE SYSTEM 02/16/2007 8:30 PM CDT us Ketan Lew MD POINT OF CARE TESTING Edited Performing Organization Address [facility] Phone Number INTERFACE SYSTEM Refer to clinic/hospital department * (ABNORMAL) POC GLUCOSE (02/16/2007 11:12 AM CDT) GLUCOSE POC 117(H) 60 - 100 mg/dL INTERFACE SYSTEM 02/16/2007 11:1 2 AM CDT us Ketan Lew MD POINT OF CARE TESTING Edited Performing Organization Address [facility] Phone Number INTERFACE SYSTEM Refer to clinic/hospital department * (ABNORMAL) POC GLUCOSE (02/16/2007 6:26 AM CDT) GLUCOSE POC 128(H) 60 - 100 mg/dL INTERFACE SYSTEM 02/16/2007 6:26 AM CDT us Ketan Lew MD POINT OF CARE TESTING Edited Performing Organization Address [facility] Phone Number INTERFACE SYSTEM Refer to [...] Goal INR 3.0; range 2.5 - 3.5 POST-NH Goal INR 2.5; range 2.0 - 3.0 [...] HEMATOLOGY ORDERABLES Edit ed Performing Organization Address City/State/[facility] Co de Phone Number INTERFACE SYSTEM Refer to clinic/hospital department documented in this encounter Visit Diagnoses Diagnosis Posttraumatic wound infection not elsewhere classified- Primary documented in this encounter Care Teams Glass Robot Operator Relationship Specialty Start Date End Date Adrienne March DO [address] [place] [phone] PCP - General Family Practice 06/30/10 documented as of this encounter
--- OUTSIDE RECORDS SUMMARY | 2025-09-01 18:21 | XMS_ITS | Encounter Summary ---
Author Organization [facility], [facility] Address [address] [facility] [address] [place] [address] Phone Care Team Providers Care Software Consultant Name Role Phone Unavailable Primary Care Provider Unavailabl e Encounter Details Date Type Department Care Team (Late st Contact Info) Description 04/06/2025 Orders Only [facility] [address] [facility] [address] [place] [address] Chronic kidney disease stage 3 [...] st Contact Info) Description 10/02/2025 10:30 AM CHAIR MENDER Office Visit [facility] [address] [place] [address] Bartolo Stanton MD [address] [address] documented as of this encounter Visit Diagnoses Diagnosis 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
--- OUTSIDE RECORDS SUMMARY | 2025-09-01 18:22 | XMS_ITS | Encounter Summary ---
Author Organization [facility] Address [address] [place] [address] Care Team Providers Care Jewelry Store Manager Name Role Phone Adrienne March DO Primary Care Provider Encounter Details Date Type Department Care Team (Latest Contact Info) Description 06/12/2004 Outpatient [facility] [address] [address] Jose Luis Mcmillan MD [address] [place] [address] JOINT PAIN-SHLDER (Primary Dx) Social History Tobacco Use Types Packs/Day Years Used Date Smoking Tobacco: Never Assessed Comments Unknown Sex and Gender Information Value Date Recorded Sex Assigned at Not on file 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
--- OUTSIDE RECORDS SUMMARY | 2025-09-01 18:22 | XMS_ITS | Encounter Summary ---
Author Organization [facility] Address [address] [place] [address] Care Team Providers Care Transportation Dispatch Manager Name Role Phone Adrienne March DO Primary Care Provider Encounter Details Date Type Department Care Team (Latest Contact Info) Description 03/02/2005 Outpatient Historical [facility] Orthopedics- 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
--- OUTSIDE RECORDS SUMMARY | 2025-09-01 18:22 | XMS_ITS | Encounter Summary ---
Author Organization [facility] Address [address] [place] [address] Care Team Providers Care Steward/Stewardess Lounge Name Role Phone Adrienne March DO Primary Care Provider Encounter Details Date Type Department Care Team (Latest Contact Info) Description 08/11/2004 Outpatient Historical [facility] [address] [place] [phone] Leanne Smith DO [address] [place] [phone] JOINT PAIN-ANKLE (Primary Dx) Social History Tobacco Use Types Packs/Day Years Used Date Smoking Tobacco: Never Assessed Comments Unknown Sex and Gender Information Value Date Recorded Sex Assigned at Not on file 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
--- OUTSIDE RECORDS SUMMARY | 2025-09-01 18:22 | XMS_ITS | Encounter Summary ---
Author Organization [facility] Address [address] [place] [address] Care Team Providers Care Client Director Name Role Phone Adrienne March DO Primary Care Provider Encounter Details Date Type Department Care Team (Latest Contact Info) Description 01/26/2005 Outpatient Historical [facility] [address] [place] [address] [facility] FX FEMUR NOS-CLOSED (CMS/HCC) (Primary Dx) Social History Tobacco Use Types Packs/Day Years Used Date Smoking Tobacco: Never Assessed Comments Unknown Sex and Gender Information Value Date Recorded Sex Assigned at Not on file Legal Sex Female 3:34 AM LAPPING MACHINE SET UP OPERATOR Gender Identity Not on file Sexual Orientation Not on file documented as of this encounter Plan of Treatment Not on file documented as of this encounter Visit Diagnoses Diagnosis Closed fracture of unspecified part of femur- Primary documented in this encounter Care Teams Client Director Relationship Specialty Start Date End Date Adrienne March DO [address] [place] [address] PCP - General Family Practice 06/30/10 documented as of this encounter
--- OUTSIDE RECORDS SUMMARY | 2025-09-01 18:22 | XMS_ITS | Encounter Summary ---
Author Organization [facility] Address [address] [place] [address] Care Team Providers Care Bag Filler Machine Operator Name Role Phone Adrienne March DO Primary Care Provider [phone] Encounter Details Date Type Department Care Team (Latest Contact Info) Description 03/06/2004 Outpatient [facility] [place] [address] [place] [phone] Abel Hurtado, MARCE NO ADDRESS ON FILE Plantar fibromatosis (Primary Dx); CALCANEAL SPUR; DIFFICULTY IN WALKING Social History Tobacco Use Types Packs/Day Years Used Date Smoking Tobacco: Never Assessed Comments Unknown Sex and Gender Information Value Date Recorded Sex Assigned at Not on file Legal Sex Female 3:34 AM AUTO SERVICE MECHANIC Gender Identity Not on file Sexual Orientation Not on file documented as of this encounter Plan of Treatment Not on file documented as of this encounter Visit Diagnoses Diagnosis Plantar fibromatosis- Primary Plantar fascial fibromatosis Calcaneal spur Difficulty in walking(719.7) Difficulty in walking documented in this encounter Care Teams Bag Filler Machine Operator Relationship Specialty Start Date End Date Adrienne March DO [address] [place] [address] PCP - General Family Practice 06/30/10 documented as of this encounter
--- OUTSIDE RECORDS SUMMARY | 2025-09-01 18:22 | XMS_ITS | Encounter Summary ---
Author Organization [facility] Address [address] [place] [address] Care Team Providers Care Revenue Agent Name Role Phone Adrienne March DO Primary Care Provider [phone] Encounter Details Date Type Department Care Team (Latest Contact Info) Description 08/05/2004 Outpatient Historical HIS CANCELLED ADMISSION Jose Luis Mcmillan MD [address] [place] [address] [place] [address] ADMINISTRTVE ENCOUNT NOS (Primary Dx) Social History Tobacco Use Types Packs/Day Years Used Date Smoking Tobacco: Never Assessed Comments Unknown Sex and Gender Information Value Date Recorded Sex Assigned at Not on file Legal Sex Female 3:34 AM FIBRE OPTIC CABLE SPLICER Gender Identity Not on file Sexual Orientation Not on file documented as of this encounter Plan of Treatment Not on file documented as of this encounter Visit Diagnoses Diagnosis Encounters for unspecified administrative purpose- Primary documented in this encounter Care Teams Revenue Agent Relationship Specialty Start Date End Date Adrienne March DO [address] [place] [address] PCP - General Family Practice 06/30/10 documented as of this encounter
--- OUTSIDE RECORDS SUMMARY | 2025-09-01 18:22 | XMS_ITS | Encounter Summary ---
Author Organization [facility] Address [address] [place] [address] Care Team Providers Care Men'S Locker Room Attendant Name Role Phone Adrienne March DO Primary Care Provider Encounter Details Date Type Department Care Team (Latest Contact Info) Description 11/27/2003 Outpatient Historical [facility] [address] [place] [address] Jose Luis Mcmillan MD [address] [place] [address] CERVICALGIA (Primary Dx); Cervical spondylosis Social History Tobacco Use Types Packs/Day Years Used Date Smoking Tobacco: Never Assessed Comments Unknown Sex and Gender Information Value Date Recorded Sex Assigned at Not on file Legal Sex Female 3:34 AM SUPPLY OFFICER Gender Identity Not on file Sexual Orientation Not on file documented as of this encounter Plan of Treatment Not on file documented as of this encounter Visit Diagnoses Diagnosis Cervicalgia- Primary Cervical spondylosis Cervical spondylosis without myelopathy documented in this encounter Care Teams Men'S Locker Room Attendant Relationship Specialty Start Date End Date Adrienne March DO [address] [place] [address] PCP - General Family Practice 06/30/10 documented as of this encounter
--- OUTSIDE RECORDS SUMMARY | 2025-09-01 18:22 | XMS_ITS | Encounter Summary ---
Author Organization [facility] Address [address] [place] [address] Care Team Providers Care Manometer Technician Name Role Phone Adrienne March DO Primary Care Provider [phone] Encounter Details Date Type Department Care Team (Latest Contact Info) Description 02/02/2005 Outpatient Historical [facility] [address] [place] [address] AMBULANCE, [facility] FX LOWER LIMB NEC-CLOSED (Primary Dx) Social History Tobacco Use Types Packs/Day Years Used Date Smoking Tobacco: Never Assessed Comments Unknown Sex and Gender Information Value Date Recorded Sex Assigned at Not on file Legal Sex Female 3:34 AM LEAD RAMP SERVICE MAN Gender Identity Not on file Sexual Orientation Not on file documented as of this encounter Plan of Treatment Not on file documented as of this encounter Visit Diagnoses Diagnosis Other, multiple and ill-defined closed fractures of lower limb- Primary documented in this encounter Care Teams Manometer Technician Relationship Specialty Start Date End Date Adrienne March DO [address] [place] [address] PCP - General Family Practice 06/30/10 documented as of this encounter
--- OUTSIDE RECORDS SUMMARY | 2025-09-01 18:22 | XMS_ITS | Encounter Summary ---
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 Gender Identity Not on file [...] CARE TESTING Final Result Performing Organization Address City/[facility] Co de Phone Number INTERFACE SYSTEM Refer to clinic/hospital department * (ABNORMAL) POC GLUCOSE (02/02/2005 6:32 AM CDT) GLUCOSE POC 105(H) 60 - 100 mg/dL INTERFACE SYSTEM 02/02/2005 6:32 AM CDT us Nakul Nino MD POINT OF CARE TESTING Final Result Performing Organization Address [facility] Phone Number INTERFACE SYSTEM Refer to clinic/hospital department * POC GLUCOSE (02/01/2005 9:17 PM CDT) GLUCOSE POC 95 60 - 100 mg/dL INTERFACE SYSTEM 02/01/2005 9:17 PM CDT Result Carrie Nino MD POINT OF CARE TESTING Final Result Performing Organization Address [facility] Co de Phone Number INTERFACE SYSTEM Refer to clinic/hospital department * POC GLUCOSE (02/01/2005 4:55 PM CDT) GLUCOSE POC 85 60 - 100 mg/dL INTERFACE SYSTEM 02/01/2005 4:55 PM CDT Result Carrie Nino MD POINT OF CARE TESTING Final Result Performing Organization Address [facility] de Phone Number INTERFACE SYSTEM Refer to clinic/hospital department * POC GLUCOSE (02/01/2005 11:51 AM CDT) GLUCOSE POC 96 60 - 100 mg/dL INTERFACE SYSTEM 02/01/2005 11:5 1 AM CDT Nakul Nino MD POINT OF CARE TESTING Final Result Performing Organization Address [facility] de Phone Number INTERFACE SYSTEM Refer to clinic/hospital department * (ABNORMAL) POC GLUCOSE (02/01/2005 5:40 AM CDT) GLUCOSE POC 118(H) 60 - 100 mg/dL INTERFACE SYSTEM 02/01/2005 5:40 AM CDT Nakul Nino MD POINT OF CARE TESTING Final Result Performing Organization Address [facility] Phone Number INTERFACE SYSTEM Refer to clinic/hospital department * (ABNORMAL) POC GLUCOSE (01/31/2005 9:34 PM CDT) GLUCOSE POC 108(H) 60 - 100 mg/dL INTERFACE SYSTEM 01/31/2005 9:34 PM CDT Nakul Nino MD POINT OF CARE TESTING Final Result Performing Organization Address [facility] Phone Number INTERFACE SYSTEM Refer to clinic/hospital department * POC GLUCOSE (01/31/2005 4:59 PM CDT) GLUCOSE POC 93 60 - 100 mg/dL INTERFACE SYSTEM 01/31/2005 4:59 PM CDT us Nakul Nino MD POINT OF CARE TESTING Final Result Performing Organization Address [facility] Co de Phone Number INTERFACE SYSTEM Refer to clinic/hospital department * POC GLUCOSE (01/31/2005 11:04 AM CDT) GLUCOSE POC 100 60 - 100 mg/dL INTERFACE SYSTEM 01/31/2005 11:0 4 AM CDT us Nakul Nino MD POINT OF CARE TESTING Final Result Performing Organization Address [facility] Co de Phone Number INTERFACE SYSTEM Refer to clinic/hospital department * (ABNORMAL) POC GLUCOSE (01/31/2005 5:41 AM CDT) GLUCOSE POC 106(H) 60 - 100 mg/dL INTERFACE SYSTEM 01/31/2005 5:41 AM CDT us Nakul Nino MD POINT OF CARE TESTING Final Result Performing Organization Address [facility] Phone Number INTERFACE SYSTEM Refer to clinic/hospital department * (ABNORMAL) POC GLUCOSE (01/30/2005 8:52 PM CDT) GLUCOSE POC 169(H) 60 - 100 mg/dL INTERFACE SYSTEM 01/30/2005 8:52 PM CDT us Nakul Nino MD POINT OF CARE TESTING Final Result Performing Organization Address [facility] Phone Number INTERFACE SYSTEM Refer to clinic/hospital department * POC GLUCOSE (01/30/2005 6:02 PM CDT) GLUCOSE POC 82 60 - 100 mg/dL INTERFACE SYSTEM 01/30/2005 6:02 PM CDT us Nakul Nino MD POINT OF CARE TESTING Final Result Performing Organization Address [facility] Co de Phone Number INTERFACE SYSTEM Refer to clinic/hospital department * (ABNORMAL) POC GLUCOSE (01/30/2005 10:54 AM CDT) GLUCOSE POC 126(H) 60 - 100 mg/dL INTERFACE SYSTEM 01/30/2005 10:5 4 AM CDT us Nakul Nino MD POINT OF CARE TESTING Final Result Performing Organization Address [facility] de Phone Number INTERFACE SYSTEM Refer [...] ORDERABLES Final R esult Performing Organization Address [facility] de Phone Number INTERFACE SYSTEM Refer [...] HEMATOLOGY ORDERABLES Final Result Performing Organization Address [facility] Phone Number INTERFACE SYSTEM Refer to clinic/hospital department * (ABNORMAL) POC GLUCOSE (01/30/2005 5:20 AM CDT) GLUCOSE POC 132(H) 60 - 100 mg/dL INTERFACE SYSTEM 01/30/2005 5:20 AM CDT Nakul Nino MD POINT OF CARE TESTING Final Result Performing Organization Address [facility] Phone Number INTERFACE SYSTEM Refer to clinic/hospital department * (ABNORMAL) POC GLUCOSE (01/29/2005 8:52 PM CDT) GLUCOSE POC 149(H) 60 - 100 mg/dL INTERFACE SYSTEM 01/29/2005 8:52 PM CDT Nakul Nino MD POINT OF CARE TESTING Final Result Performing Organization Address [facility] Phone Number INTERFACE SYSTEM Refer to clinic/hospital [...] CARE TESTING Final Result Performing Organization Address [facility] de Phone Number INTERFACE SYSTEM Refer [...] HEMATOLOGY ORDERABLES Final Result Performing Organization Address [facility] Phone Number INTERFACE SYSTEM Refer to clinic/hospital [...] ORDERABLES Final R esult Performing Organization Address [facility] Phone Number INTERFACE SYSTEM Refer to clinic/hospital department * (ABNORMAL) POC GLUCOSE (01/29/2005 6:03 AM CDT) GLUCOSE POC 202(H) 60 - 100 mg/dL INTERFACE SYSTEM 01/29/2005 6:03 AM CDT Nakul Nino MD POINT OF CARE TESTING Final Result Performing Organization Address [facility] de Phone Number INTERFACE SYSTEM Refer [...] COM Fi nal Result Performing Organization Address [facility] Co de Phone Number [...] CARE TESTING Final Result Performing Organization Address [facility] Phone Number INTERFACE SYSTEM Refer to clinic/hospital department * POC GLUCOSE (01/28/2005 3:07 PM CDT) GLUCOSE POC 91 60 - 100 mg/dL INTERFACE SYSTEM COMMENT POC Follow prtocol INTERFACE SYSTEM 01/28/2005 3:07 PM CDT Nakul Nino MD POINT OF CARE TESTING Final Result Performing Organization Address [facility] Phone Number INTERFACE SYSTEM Refer to clinic/hospital department * (ABNORMAL) HEMOGLOBIN A1C (01/28/2005 1:50 PM CDT) HEMOGLOBIN A1C 8.2(H) 4.0 - 6.0 %A1C INTERFACE SYSTEM 01/28/2005 1:50 PM CDT Nakul Nino MD CHEMISTRY ORDERABLES Final R esult Performing Organization Address [facility] Phone Number INTERFACE SYSTEM Refer to clinic/hospital department * (ABNORMAL) POC GLUCOSE (01/28/2005 12:53 PM CDT) GLUCOSE POC 121(H) 60 - 100 mg/dL INTERFACE SYSTEM COMMENT POC Follow prtocol INTERFACE SYSTEM 01/28/2005 12:5 3 PM CDT Nakul Nino MD POINT OF CARE TESTING Final Result Performing Organization Address [facility] Phone Number INTERFACE SYSTEM Refer to clinic/hospital department * (ABNORMAL) POC GLUCOSE (01/28/2005 12:11 PM CDT) GLUCOSE POC 134(H) 60 - 100 mg/dL INTERFACE SYSTEM COMMENT POC Follow prtocol INTERFACE SYSTEM 01/28/2005 12:1 1 PM CDT Nakul Nino MD POINT OF CARE TESTING Final Result Performing Organization Address [facility] Co de Phone Number INTERFACE SYSTEM Refer to clinic/hospital department * (ABNORMAL) POC GLUCOSE (01/28/2005 7:55 AM CDT) GLUCOSE POC 121(H) 60 - 100 mg/dL INTERFACE SYSTEM COMMENT POC Follow prtocol INTERFACE SYSTEM 01/28/2005 7:55 AM CDT Nakul Nino MD POINT OF CARE TESTING Final Result Performing Organization Address [facility] de Phone Number INTERFACE SYSTEM Refer to clinic/hospital department * (ABNORMAL) POC GLUCOSE (01/28/2005 7:08 AM CDT) GLUCOSE POC 146(H) 60 - 100 mg/dL INTERFACE SYSTEM COMMENT POC Follow prtocol INTERFACE SYSTEM 01/28/2005 7:08 AM CDT Nakul Nino MD POINT OF CARE TESTING Final Result Performing Organization Address [facility] de Phone Number INTERFACE SYSTEM Refer to clinic/hospital department * (ABNORMAL) POC GLUCOSE (01/28/2005 6:00 AM CDT) GLUCOSE POC 132(H) 60 - 100 mg/dL INTERFACE SYSTEM 01/28/2005 6:00 AM CDT Nakul Nino MD POINT OF CARE TESTING Final Result Performing Organization Address [facility] Co de Phone Number INTERFACE SYSTEM Refer to clinic/hospital department * (ABNORMAL) POC GLUCOSE (01/28/2005 2:41 AM CDT) GLUCOSE POC 127(H) 60 - 100 mg/dL INTERFACE SYSTEM 01/28/2005 2:41 AM CDT Nakul Nino MD POINT OF CARE TESTING Final Result Performing Organization Address [facility] Co de Phone Number INTERFACE SYSTEM Refer to clinic/hospital department * (ABNORMAL) POC GLUCOSE (01/28/2005 1:18 AM CDT) GLUCOSE POC 124(H) 60 - 100 mg/dL INTERFACE SYSTEM 01/28/2005 1:18 AM CDT Nakul Nino MD POINT OF CARE TESTING Final Result Performing Organization Address [facility] de Phone Number INTERFACE SYSTEM Refer to clinic/hospital department * (ABNORMAL) POC GLUCOSE (01/28/2005 12:20 AM CDT) GLUCOSE POC 128(H) 60 - 100 mg/dL INTERFACE SYSTEM 01/28/2005 12:2 0 AM CDT Nakul Nino MD POINT OF CARE TESTING Final Result Performing Organization Address [facility] Phone Number INTERFACE SYSTEM Refer to clinic/hospital department * (ABNORMAL) POC GLUCOSE (01/27/2005 11:07 PM CDT) GLUCOSE POC 138(H) 60 - 100 mg/dL INTERFACE SYSTEM 01/27/2005 11:0 7 PM CDT Nakul Nino MD POINT OF CARE TESTING Final Result Performing Organization Address [facility] Phone Number INTERFACE SYSTEM Refer to clinic/hospital department * (ABNORMAL) POC GLUCOSE (01/27/2005 10:14 PM CDT) GLUCOSE POC 139(H) 60 - 100 mg/dL INTERFACE SYSTEM 01/27/2005 10:1 4 PM CDT Nakul Nino MD POINT OF CARE TESTING Final Result Performing Organization Address [facility] Co de Phone Number INTERFACE SYSTEM Refer to clinic/hospital department * (ABNORMAL) POC GLUCOSE (01/27/2005 9:18 PM CDT) GLUCOSE POC 184(H) 60 - 100 mg/dL INTERFACE SYSTEM 01/27/2005 9:18 PM CDT Nakul Nino MD POINT OF CARE TESTING Final Result Performing Organization Address [facility] Phone Number INTERFACE SYSTEM Refer to clinic/hospital department * (ABNORMAL) POC GLUCOSE (01/27/2005 7:36 PM CDT) GLUCOSE POC 229(H) 60 - 100 mg/dL INTERFACE SYSTEM 01/27/2005 7:36 PM CDT Nakul Nino MD POINT OF CARE TESTING Final Result Performing Organization Address [facility] Phone Number INTERFACE SYSTEM Refer to clinic/hospital department * (ABNORMAL) POC GLUCOSE (01/27/2005 5:58 PM CDT) GLUCOSE POC 121(H) 60 - 100 mg/dL INTERFACE SYSTEM COMMENT POC Follow prtocol INTERFACE SYSTEM 01/27/2005 5:58 PM CDT Nakul Nino MD POINT OF CARE TESTING Final Result Performing Organization Address [facility] Phone Number INTERFACE SYSTEM Refer to clinic/hospital department * (ABNORMAL) POC GLUCOSE (01/27/2005 5:08 PM CDT) GLUCOSE POC 106(H) 60 - 100 mg/dL INTERFACE SYSTEM COMMENT POC Follow prtocol INTERFACE SYSTEM 01/27/2005 5:08 PM CDT us Nakul Nino MD POINT OF CARE TESTING Final Result Performing Organization Address [facility] de Phone Number INTERFACE SYSTEM Refer to clinic/hospital department * POC GLUCOSE (01/27/2005 4:31 PM CDT) GLUCOSE POC 85 60 - 100 mg/dL INTERFACE SYSTEM COMMENT POC Follow prtocol INTERFACE SYSTEM 01/27/2005 4:31 PM CDT us Nakul Nino MD POINT OF CARE TESTING Final Result Performing Organization Address [facility] Phone Number INTERFACE SYSTEM Refer to clinic/hospital department * POC GLUCOSE (01/27/2005 3:02 PM CDT) GLUCOSE POC 84 60 - 100 mg/dL INTERFACE SYSTEM COMMENT POC Follow prtocol INTERFACE SYSTEM 01/27/2005 3:02 PM CDT Nakul Nino MD POINT OF CARE TESTING Final Result Performing Organization Address [facility] Phone Number INTERFACE SYSTEM Refer to clinic/hospital department * POC GLUCOSE (01/27/2005 2:14 PM CDT) GLUCOSE POC 94 60 - 100 mg/dL INTERFACE SYSTEM COMMENT POC Follow prtocol INTERFACE SYSTEM 01/27/2005 2:14 PM CDT us Nakul Nino MD POINT OF CARE TESTING Final Result Performing Organization Address [facility] Phone Number INTERFACE SYSTEM Refer to clinic/hospital department * POC GLUCOSE (01/27/2005 12:57 PM CDT) GLUCOSE POC 89 60 - 100 mg/dL INTERFACE SYSTEM 01/27/2005 12:5 7 PM CDT us Nakul Nino MD POINT OF CARE TESTING Final Result Performing Organization Address [facility] Phone Number INTERFACE SYSTEM Refer to clinic/hospital department * (ABNORMAL) POC GLUCOSE (01/27/2005 11:53 AM CDT) GLUCOSE POC 107(H) 60 - 100 mg/dL INTERFACE SYSTEM COMMENT POC Follow prtocol INTERFACE SYSTEM 01/27/2005 11:5 3 AM CDT Nakul Nino MD POINT OF CARE TESTING Final Result Performing Organization Address [facility] Phone Number INTERFACE SYSTEM Refer to clinic/hospital department * (ABNORMAL) POC GLUCOSE (01/27/2005 11:07 AM CDT) GLUCOSE POC 118(H) 60 - 100 mg/dL INTERFACE SYSTEM COMMENT POC Follow prtocol INTERFACE SYSTEM 01/27/2005 11:0 7 AM CDT Nakul Nino MD POINT OF CARE TESTING Final Result Performing Organization Address [facility] Phone Number INTERFACE SYSTEM Refer to clinic/hospital department * (ABNORMAL) POC GLUCOSE (01/27/2005 9:54 AM CDT) GLUCOSE POC 136(H) 60 - 100 mg/dL INTERFACE SYSTEM COMMENT POC Follow prtocol INTERFACE SYSTEM 01/27/2005 9:54 AM CDT Nakul Nino MD POINT OF CARE TESTING Final Result Performing Organization Address [facility] Phone Number INTERFACE SYSTEM Refer to clinic/hospital department * (ABNORMAL) POC GLUCOSE (01/27/2005 8:06 AM CDT) GLUCOSE POC 176(H) 60 - 100 mg/dL INTERFACE SYSTEM 01/27/2005 8:06 AM CDT Nakul Nino MD POINT OF CARE TESTING Final Result Performing Organization Address [facility] de Phone Number INTERFACE SYSTEM Refer to clinic/hospital department * (ABNORMAL) POC GLUCOSE (01/27/2005 5:45 AM CDT) GLUCOSE POC 207(H) 60 - 100 mg/dL INTERFACE SYSTEM 01/27/2005 5:45 AM CDT Nakul Nino MD POINT OF CARE TESTING Final Result Performing Organization Address [facility] Phone Number INTERFACE SYSTEM Refer to clinic/hospital department * (ABNORMAL) POC GLUCOSE (01/27/2005 4:50 AM CDT) GLUCOSE POC 243(H) 60 - 100 mg/dL INTERFACE SYSTEM 01/27/2005 4:50 AM CDT Nakul Nino MD POINT OF CARE TESTING Final Result Performing Organization Address [facility] Phone Number INTERFACE SYSTEM Refer to [...] ORDERABLES Final R esult Performing Organization Address [facility] Phone Number INTERFACE SYSTEM Refer to [...] HEMATOLOGY ORDERABLES Final Result Performing Organization Address [facility] de Phone Number INTERFACE SYSTEM Refer [...] CARE TESTING Final Result Performing Organization Address [facility] Phone Number INTERFACE SYSTEM Refer to clinic/hospital department * (ABNORMAL) POC GLUCOSE (01/27/2005 1:55 AM CDT) GLUCOSE POC 369(H) 60 - 100 mg/dL INTERFACE SYSTEM 01/27/2005 1:55 AM CDT Nakul Nino MD POINT OF CARE TESTING Final Result Performing Organization Address [facility] Phone Number INTERFACE SYSTEM Refer to clinic/hospital department * (ABNORMAL) POC GLUCOSE (01/27/2005 12:09 AM CDT) GLUCOSE POC 368(H) 60 - 100 mg/dL INTERFACE SYSTEM 01/27/2005 12:0 9 AM CDT Nakul Nino MD POINT OF CARE TESTING Final Result Performing Organization Address [facility] Phone Number INTERFACE SYSTEM Refer to [...] COM Fi nal Result Performing Organization Address [facility] de Phone Number INTERFACE SYSTEM Refer to clinic/hospital department * (ABNORMAL) GLUCOSE LEVEL (01/26/2005 10:19 PM CDT) GLUCOSE 245(H) 70 - 110 mg/dL INTERFACE SYSTEM Comment:Specimen slightly he molyzed. THIS RESULT FROM EDTA TUBE. 01/26/2005 10:1 9 PM CDT Nakul Nino MD CHEMISTRY ORDERABLES Final R esult Performing Organization Address [facility] de Phone Number INTERFACE SYSTEM Refer [...] COM Fi nal Result Performing Organization Address [facility] Phone Number INTERFACE SYSTEM Refer to clinic/hospital [...] Goal INR 3.0; range 2.5 - 3.5 POST-MN Goal INR 2.5; range 2.0 - 3.0 or Goal 3.0; range 2.5 - 3.5 Atrial Fibrillation Goal INR 2.5; range 2.0 - 3.0 Ischemic Stroke Goal INR 2.5; range 2.0 - 3.0 For additional information see Guidelines for Anticoagulation available from the pharmacy Ronit Meredith, Pharm D. 01/26/2005 7:18 PM CDT Flako Blanco MD HEMATOLOGY ORDERABLES Final Result Performing Organization Address [facility] Phone Number INTERFACE SYSTEM Refer to clinic/hospital department * ETHANOL LEVEL (01/26/2005 7:00 PM CDT) ETHANOL <10 <=10 mg/dL INTERFACE SYSTEM 01/26/2005 7:00 PM CDT Flako Blanco MD CHEMISTRY ORDERABLES Final Result Performing Organization Address [facility] de Phone Number INTERFACE SYSTEM Refer [...] femur documented in this encounter Care Teams Abstractor Relationship Specialty Start Date End Date Adrienne March DO [address] [place] [id number] PCP - General Family Practice 06/30/10 documented as of this encounter
--- OUTSIDE RECORDS SUMMARY | 2025-09-01 18:22 | XMS_ITS | Encounter Summary ---
Author Organization [facility] Address [address] [place] [address] Care Team Providers Care Director Non Profit Name Role Phone Adrienne March DO Primary Care Provider Encounter Details Date Type Department Care Team (Latest Contact Info) Description 05/27/2004 Outpatient [facility] [address] [phone] Jose Luis Mcmillan MD [address] [place] [address] JOINT PAIN-SHLDER (Primary Dx) Social History Tobacco Use Types Packs/Day Years Used Date Smoking Tobacco: Never Assessed Comments Unknown Sex and Gender Information Value Date Recorded Sex Assigned at Not on file 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
--- OUTSIDE RECORDS SUMMARY | 2025-09-01 18:22 | XMS_ITS | Encounter Summary ---
Author Organization [facility] Address [address] [place] [address] Care Team Providers Care Food Checkers And Cashiers Supervisor Name Role Phone Adrienne March DO Primary Care Provider [phone] Encounter Details Date Type Department Care Team (Latest Contact Info) Description 06/12/2004 Outpatient Historical [facility] [address] [place] [address] Jose Luis Mcmillan MD [address] [place] [address] JOINT PAIN-SHLDER (Primary Dx) Social History Tobacco Use Types Packs/Day Years Used Date Smoking Tobacco: Never Assessed Comments Unknown Sex and Gender Information Value Date Recorded Sex Assigned at Not on file 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
--- OUTSIDE RECORDS SUMMARY | 2025-09-01 18:22 | XMS_ITS | Encounter Summary ---
Author Organization [facility] Address [address] [place] [address] Care Team Providers Care Records Management Coordinator Name Role Phone Adrienne March DO Primary Care Provider Encounter Details Date Type Department Care Team (Latest Contact Info) Description 01/08/2004 Outpatient [facility] [address] [address] Jose Luis Mcmillan MD [address] [place] [address] NEURALGIA/NEURITIS NOS (Primary Dx) Social History Tobacco Use Types Packs/Day Years Used Date Smoking Tobacco: Never Assessed Comments Unknown Sex and Gender Information Value Date Recorded Sex Assigned at Not on file 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
--- OUTSIDE RECORDS SUMMARY | 2025-09-01 18:22 | XMS_ITS | Encounter Summary ---
Author Organization [facility] Address [address] [place] [address] Care Team Providers Care Microsoft Architect Name Role Phone Adrienne March DO Primary Care Provider Encounter Details Date Type Department Care Team (Latest Contact Info) Description 01/08/2004 Outpatient Historical [facility] [address] [place] [address] Jose Luis Mcmillan MD [address] [place] [address] CERVICALGIA (Primary Dx); Cervical spondylosis Social History Tobacco Use Types Packs/Day Years Used Date Smoking Tobacco: Never Assessed Comments Unknown Sex and Gender Information Value Date Recorded Sex Assigned at Not on file 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
--- OUTSIDE RECORDS SUMMARY | 2025-09-01 18:22 | XMS_ITS | Encounter Summary ---
Author Organization [facility] Address [address] [place] [address] Care Team Providers Care Plugging Machine Operator Name Role Phone Adrienne March DO Primary Care Provider [phone] Encounter Details Date Type Department Care Team (Latest Contact Info) Description 04/15/2005 Outpatient Historical [facility] Orthoped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
--- OUTSIDE RECORDS SUMMARY | 2025-09-01 18:22 | XMS_ITS | Clinical Summary ---
Author Organization [facility] Address [address] [facility] [place] [address] Care Team Providers Care Metal Tile Setter Name Role Phone Adrienne March Primary Care Provider Allergies Active Allergy Reactions Criticality Noted Date Comments Adhesive Tape-Silicones Rash Low 09/05/2020 Amoxicillin-Pot Clavulanate Diarrhea,Abdominal Pain Medium 09/07/2008 Codeine Unknown 04/09/2009 Semaglutide Other (See Comments) 07/13/2018 just didn't feel good Silver Sulfadiazine Swelling Low 12/29/2013 Medications fluticasone (FLONASE) 50 mcg/spray Jackson, SuspensionIndica tions:Acute non-recurrent maxillary sinusitis SHAKE LIQUID [...] Tablet 11 0 Active blood sugar diagnostic (Identiauch Ultra Blue Test Strip) Strip USE TO [...] TAKE 1 TABLET(125 MCG) BY MOUTH DAILY PROCUREMENT INTERNSHIP 90 Tablet 1 Active potassium chloride (KLOR-CON) [...] file Legal Sex Female 3:34 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 Gender Identity Not on file Sexual [...] - 1-dose 75+ series) 2022 Medicare Ad[place]) Preventative Visit/Annual Wellness Visit 09/20/2024 12/23/2020, 05/23/2020, 04/14/2019, Additional history exists INFLUENZA VACCINE (#1) 2025 0, 05/21/2019, 05/04/2019, Additional history exists COVID-19 Vaccine (2 - 2024-2 6 season) 2025 01/29/2021 DTAP/TDAP/TD VACCINES (3 - T d or Tdap) 06/12/2026 06/12/2016, 07/22/2015, 11/10/2006, Additional history exists DIABETES ANNUAL RETINAL EXAM 08/01/202608/2025, 03/30/2024, 06/04/2020, Additional history exists COLORECTAL SCREENING Discontinued 04/01/2010 (Previously completed), 07/16/2009 (Declined) FIT/FOBT Q 1 year Discontinued 08/01/2015 PNEUMOCOCCAL VACCINE 50+ YEARS Completed 0 01/11/2017, 10/24/2014, 10/24/2014, Additional history exists Colorectal Cancer Screening Discontinued FIT-DNA Q 3 years Discontinued 05/17/2019 Flex Sig/CT Colonography Q 5 years Discontinued Medical Devices Implanted Type Area Manager Lab Device Identifier Shelf Expiration Date Model / Serial / Lot Cement Simplex Hvisc 6194-1-010 - [id number] Implanted:01/2020 by Marco A Lewis MD at [facility] (Quantity not on file) Cement Left: Knee JAMSHID- Wetzel EngineeringCA INT INC [id number] 03/19/2021 6194-1-010 / / [id number] Cement Simplex Hvisc 6194-1-010 - [id number] Implanted:01/2020 by Marco A Lewis MD at [facility] (Quantity not on file) Cement Left: Knee JAMSHID- HOWMEDICA INT INC [id number] 03/19/2021 6194-1-010 / / [id number] Hemostatic Surgifoam 1gm 1977 - [id number] Implanted:Qty : 1 on 06/21/2020 by Jan Hoffman MD at [facility] Hemostatic N/A: Back J&J- ETHICON INC [id number] 10/26/20211977 / / [id number] Insert Attune Fb Cr Sz4 6mm 1516-20-406 - [id number] Implanted:Qty : 1 on 11/23/2019 by Marco A Lewis MD at [facility] Knee Left: Knee J&J- DEPUY ORTHOP[employer]ED[employer] INC [id number] 03/19/2023 [id number] / / [id number] Comp Fem Attune Cr Cmnt Sz4 1504-00-104 - [id number] Implanted:Qty : 1 on 11/23/2019 by Marco A Lewis MD at [facility] Knee Left: Knee J&J- [employer] OR[employer] [id number] 09/19/2029 [id number] / / [id number] Comp Tib Attune Fb Cmnt Sz5 1506-70-005 - [id number] Implanted:Qty : 1 on 11/23/2019 by Marco A Lewis MD at [facility] Knee Left: Knee J&J- [employer] [id number] 08/19/2029 [id number] / / [id number] Vince Solera Crv Ti 5.5x30mm [id number] - [id number] Implanted:Qty : 2 on 06/21/2020 by Jan Hoffman MD at [facility] Vince N/A: Back MEDTRONIC- SOFAMOR DANEK 06/21/2021 [id number] / / [id number] Screw Solera 5.5/6.0 Breakoff [id number] - [id number] Implanted:Qty : 4 on 06/21/2020 by Jan Hoffman MD at [facility] Screw N/A: Back [employer]- SOFAMOR DANEK 06/21/2021 [id number] / / [id number] Screw Cdh 6.5x45mm 5.5/6.0 Mas Cc [id number] - [id number] Implanted:Qty : 2 on 06/21/2020 by Jan Hoffman MD at [facility] Screw N/A: Back [employer]- SOFAMOR DANEK 06/21/2021 [id number] / / [id number] Screw Cdh 6.5x35mm 5.5/6.0 Mas Cc [id number] - [id number] Implanted:Qty : 2 on 06/21/2020 by Jan Hoffman MD at [facility] Screw N/A: Back [employer]- SOFAMOR DANEK 06/21/2021 [id number] / / [id number] Putty Dbx Dbm 1ml 54003 - [id number] Implanted:Qty : 1 on 06/21/2020 by Jan Hoffman MD at [facility] Tissue N/A: Back MUSCULOSKELETAL TRANSPLANT FOU 07/21/2021 [id number] / [id number] Readigraft Canc Chips 15ml Can15 14bp - [id number] Implanted:Qty : 1 on 06/21/2020 by Jan Hoffman MD at [facility] Tissue N/A: Back LIFENET 08/07/2024 CAN15 14BP / / [id number] Procedures Procedure Name Priority Date/Time Associated Diagnosis Comments DIABETES FOOT EXAM Routine 12/23/2020 DIABETES EYE EXAM Routine 06/04/2020 LIPID PANEL Routine 05/23/2020 10:48 AM CDT Type 2 diabetes mellitus with diabetic peripheral angiopathy without gangrene, without long-term current use of insulin ([facility]) HEMOGLOBIN A1C Routine 05/23/2020 10:48 AM CDT Type 2 diabetes mellitus with diabetic peripheral angiopathy without gangrene, without long-term current use of insulin ([facility]) COLON CANCER SCREEN, STOOL DNA Routine 05/17/2019 4:15 PM CDT Screening for colon cancer MICROALBUMIN/CREATIN INE RATIO, RANDOM UR Routine 10/10/2018 9:52 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 Type 2 diabetes mellitus with diabetic peripheral angiopathy without gangrene, without long-term current use of insulin ([facility]) POC OCCULT BLOOD UP TO 3 CARDS Routine 08/01/2015 5:24 PM ASSOCIATE FINANCIAL ADVISOR Screen for colon cancer XR DEXA BONE DENSITY AXIAL 1 OR MORE SITES Routine 07/30/2015 1:58 PM ASSOCIATE FINANCIAL ADVISOR Postmenopausal atrophic vaginitis from Last 3 Months or Most Recently Relevant to Health Maintenance Results * DIABETES FOOT EXAM (12/23/2020) Adrienne March DO HEALTH MAINTENANCE Edited R esult - Final * DIABETES EYE EXAM (06/04/2020) us Abstract Spg Provider HEALTH MAINTENANCE Final R esult * (ABNORMAL) HEMOGLOBIN A1C (05/23/2020 10:48 AM CDT) HEMOGLOBIN A1C 7.1(H) See Comment % 05/23/2020 8:25 PM CDT [facility] EST. AVG GLUCOSE, A1C 157 mg/dL 05/23/2020 8:25 PM CDT [facility] Blood Venipuncture / Unknown 05/23/2020 10:48 AM CDT 05/23/2020 7:56 PM CDT Narrative [facility] - 05/23/2020 8:25 PM CDT HGB A1C INTERPRETATION NORMAL: <5.7% PRE-DIABETES: 5.7 - 6.4% DIABETES: 6.5% OR GREATER Falsely low A1C measurements can occur when: 1. Anemia and/or hemolytic anemia is present. 2. Hemoglobin variants present. 3. Renal failure. 4. Transfusion of blood product in the last 120 days. We recommend ordering a fructosamine test([id number]) to more accurately assess glycemic status if any of the above conditions are present. Adrienne March DO CHEMISTRY ORDERABLES Final Result [facility] IA# [id number] [address] [place] [address] * (ABNORMAL) LIPID PANEL (05/23/2020 10:48 AM CDT) [facility] CHOLESTEROL 215(H) <200 mg/dL 05/23/2020 9:06 PM CDT [facility] TRIGLYCERIDE 175(H) <150 mg/dL 05/23/2020 9:06 PM CDT [facility] HDL 83(H) 40 - 59 mg/dL 05/23/2020 9:06 PM CDT [facility] LDL CALCULATED 97 <100 mg/dL 05/23/2020 9:06 PM CDT [facility] NON-HDL CHOLESTEROL 132(H) <130 mg/dL 05/23/2020 9:06 PM CDT [facility] Blood Venipuncture / Unknown 05/23/2020 10:48 AM CDT 05/23/2020 7:56 PM CDT Narrative [facility] - 05/23/2020 [...] Adrienne March DO CHEMISTRY ORDERABLES Final Result [facility]# [id number] [facility] [place] [address] * COLON CANCER SCREEN, STOOL DNA (05/17/2019 4:15 PM CDT) COLOGUARD RESULT Negative Not Applicable [facility] Comment: A negative result indicates [...] Hess et al, N Engl J Med 2014;370(14):6823-0081) COLOGUARD RE-SCREENING RECOMMENDATION: Periodic routine colorectal cancer screening is an important part of preventive healthcare for asymptomatic persons at average risk for colorectal cancer. Following a negative Cologuard result, the [place] Cancer Society and U.S. Multi-Society Task Force screening guidelines recommend a Cologuard re-screening interval of 3 years. References: [place] Cancer Society (ACS). Colorectal cancer prevention and early detection. [place], [place]: [place] Cancer Society; [updated 2015Jan 11]. https://www.cancer.org/cancer/dsvdf-ruoknn-xspmjt/daqsuugqv-yyealjfoy-ykqjgyi/ac s-rec ommendations.html. Accessed May 20, 2018; Héctor BAUM, Marleny JURADO, Cruzito BRADLEY, Colorectal Cancer Screening: Recommendations for Physicians and Patients from the U.S. Multi-Society Task Force on Colorectal Cancer Screening, Am J Gastroenterology 2017; 112:5963-0092. Test Type: Composite algorithmic analysis of stool [...] can be accessed at the following location: www.SportsCstr/results. Additional description of the Cologuard test process, warnings and precautions can be found at www.cologuardtest.com. Rx Only. Stool STOOL SPECIMEN / Unknown 05/17/2019 4:15 PM CDT 05/18/2019 11:04 PM CDT Adrienne March DO BODY FLUIDS AND STOOLS Rosetta terrazas Result [employer] CLIA # [id number] [address] , [address] [place] [address] * (ABNORMAL) MICROALBUMIN/CREATININE RATIO, RANDOM UR (10/10/2018 9:52 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) MICROALBUMIN, URINE 24.1 No Reference Range mg/dL 10/10/2018 9:10 PM ASSOCIATE FINANCIAL ADVISOR [facility] CREATININE, URINE 35.8 29.0 - 226.0 mg/dL 10/10/2018 9:10 PM ASSOCIATE FINANCIAL ADVISOR [facility] Comment: Reference Range varies with fluid intake and diet. MICROALBUMIN/ CREAT RATIO, UR 673.2(H) <25.0 mg/g 10/10/2018 9:10 PM ASSOCIATE FINANCIAL ADVISOR [facility] Urine URINE SPECIMEN OBTAINED BY CLEAN CATCH PROCEDURE / Unknown Collection / Unknown 10/10/2018 9:52 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 10/10/2018 7:34 PM ASSOCIATE FINANCIAL ADVISOR Narrative [facility] - 10/10/2018 9:10 PM ASSOCIATE FINANCIAL ADVISOR Condition Microalbumin/Creat ratio Normal Males <17 Normal Females <25 Microalbuminuria Males 17-299 Microalbuminuria Females 25-299 Overt proteinuria >=300 Raissa Hernández PURCHASING CLERK URINE ORDERABLES Final R esult Performing Organization Address City/[facility] de Phone Number [facility] CLIA# [id number] [address] [place] [address] * (ABNORMAL) POC OCCULT BLOOD UP TO 3 CARDS (08/01/2015 5:24 PM ASSOCIATE FINANCIAL ADVISOR) OCCULT BLOOD #1 Positive(A ) Negative [facility] OCCULT BLOOD #2 Positive(A ) Negative [facility] OCCULT BLOOD #3 Positive(A ) Negative [facility] Stool specimen (specimen) 08/01/2015 5:24 PM ASSOCIATE FINANCIAL ADVISOR Deanne Banks PURCHASING CLERK POINT OF CARE TESTING Final R esult Performing Organization Address [facility] de Phone Number [facility] CLIA# [id number] [address] [place] [address] * XR DEXA BONE DENSITY AXIAL 1 OR MORE SITES (07/30/2015 1:58 PM ASSOCIATE FINANCIAL ADVISOR) Anatomical Region Laterality Modality Digital Radiogra phy 07/30/2015 1:48 PM ASSOCIATE FINANCIAL ADVISOR Narrative 07/31/2015 8:08 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 PROCEDURE DEXA BONE DENSITY, 30 July 2015 [...] mineral density, with minimal interval change Deanne ERICP DIAGNOSTIC IMAGING ORDERABLES Final Result from Last 3 Months or Most Recently Relevant to Health Maintenance Insurance MEDICAID [facility] RX [facility] Medicare Part D RX [employer] (INTERNAL) [facility] Internal Plans Advance Directives For more information, please contact: [phone] * Full Code (Latest Code Status on File) Date Activated Date Inactivated Comments 06/21/2020 9:47 AM 06/23/2020 4:07 PM * Full Code Date Activated Date Inactivated Comments 11/23/2019 4:04 PM 11/25/2019 4:08 PM * Full Code Date Activated Date Inactivated Comments 11/23/2019 9:11 AM 11/23/2019 4:04 PM Care Teams Metal Tile Setter Relationship Specialty Start Date End Date Adrienne March DO [address] [place] [address] PCP - General Family Practice 06/30/10
--- OUTSIDE RECORDS SUMMARY | 2025-09-01 18:22 | XMS_ITS | Encounter Summary ---
Author Organization [facility] Address [address] [place] [address] Care Team Providers Care Mobile Lab Technician Name Role Phone Adrienne March DO Primary Care Provider Encounter Details Date Type Department Care Team (Latest Contact Info) Description 05/27/2004 Outpatient Historical [facility] [address] [place] [address] Jose Luis Mcmillan MD [address] [place] [address] CERVICALGIA (Primary Dx); Cervical spondylosis; JOINT PAIN-SHLDER Social History Tobacco Use Types Packs/Day Years Used Date Smoking Tobacco: Never Assessed Comments Unknown Sex and Gender Information Value Date Recorded Sex Assigned at Not on file 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
--- OUTSIDE RECORDS SUMMARY | 2025-09-01 18:22 | XMS_ITS | Encounter Summary ---
Author Organization [facility] Address [address] [place] [address] Care Team Providers Care Armhole Baster Jumpbasting Name Role Phone Adrienne March DO Primary Care Provider [phone] Encounter Details Date Type Department Care Team (Latest Contact Info) Description 01/06/2005 Outpatient Historical [facility] [address] [place] [address] Abel Hurtado, DPM NO ADDRESS ON FILE CALCANEAL SPUR (Primary Dx) Social History Tobacco Use Types Packs/Day Years Used Date Smoking Tobacco: Never Assessed Comments Unknown Sex and Gender Information Value Date Recorded Sex Assigned at Not on file 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
--- OUTSIDE RECORDS SUMMARY | 2025-09-01 18:22 | XMS_ITS | Encounter Summary ---
Author Organization [facility] Address [address] [place] [address] Care Team Providers Care Wellfield Technician Name Role Phone Adrienne March DO Primary Care Provider [phone] Reason for Visit * Reason Comments Medication Refill Encounter Details Date Type Department Care Team (Late st Contact Info) Description 03/21/2025 Telephone [facility] [place] [address] [place] [address] Adrienne March DO [address] [place] [address] Medication Refill Social History Tobacco [...] on file Legal Sex Female 6:27 AM VIDEO TAPE EDITOR Gender Identity Not on file Sexual [...] - 03/21/2025 12:32 PM CDT Copied from [facility] #[id number]. Topic: Medication Request >> Mar 21, 2025 12:31 PM Latisha Garcia wrote: Caller Name: Patient Callback Number: [phone] Medication (Ask patient/caregiver to spell if possible): furosemide (Lasix) 40 mg tablet Note: All medication prescriptions can be requested using one [facility] Preferred Pharmacy: [id number] - [place], [place] - [address] [address] Call Notes: Patient is totally out of [...] st Contact Info) Description 10/10/2025 10:40 AM VIDEO TAPE EDITOR Procedure visit [facility] [place] [address] [place] [address] Davi Ferguson MD [address] [place] [address] 10/25/2025 1:40 PM VIDEO TAPE EDITOR Office Visit [facility] [address] [place] [address] Adrienne March, DO [address] [place] [address] 01/23/2026 11:20 AM CDT Office Visit [facility] [address] [place] [address] Adrienne March, DO [address] [place] [address] 04/22/2026 1:20 PM CDT Office Visit [facility] [address] [place] [address] Cori Ochoa [facility] [address] [place] [address] documented as of this encounter Visit Diagnoses Not on filedocumented in this encounter Care Teams Wellfield Technician Relationship Specialty Start Date End Date Adrienne March DO [address] [place] [address] PCP - General Family Practice 06/30/10 documented as of this encounter
--- OUTSIDE RECORDS SUMMARY | 2025-09-01 18:22 | XMS_ITS | Encounter Summary ---
Author Organization [facility] Address [address] [place] [address] Care Team Providers Care Figure Skater Name Role Phone Adrienne March DO Primary Care Provider [phone] Encounter Details Date Type Department Care Team (Latest Contact Info) Description 07/29/2004 Outpatient [facility] [place] [address] [place] [address] Abel Hurtado DPM NO ADDRESS ON FILE ACUTE OSTEOMYELITIS-ANKLE ([facility]) (Primary Dx); FX ANKLE NOS-CLOSED; Plantar fibromatosis; DIFFICULTY IN WALKING Social History Tobacco Use Types Packs/Day Years Used Date Smoking Tobacco: Never Assessed Comments Unknown Sex and Gender Information Value Date Recorded Sex Assigned at Not on file Legal Sex Female 3:34 AM FACE BURLER Gender Identity Not on file Sexual Orientation Not on file documented as of this encounter Plan of Treatment Not on file documented as of this encounter Visit Diagnoses Diagnosis Acute osteomyelitis, ankle and foot (CMS/HCC)- Primary Acute osteomyelitis, ankle and foot Unspecified closed fracture of ankle Plantar fibromatosis Plantar fascial fibromatosis Difficulty in walking(719.7) Difficulty in walking documented in this encounter Care Teams Figure Skater Relationship Specialty Start Date End Date Adrienne March DO [address] [place] [address] PCP - General Family Practice 10/11/10 documented as of this encounter
--- OUTSIDE RECORDS SUMMARY | 2025-09-01 18:22 | XMS_ITS | Encounter Summary ---
Author Organization [facility] Address [address] [place] [address] Care Team Providers Care Electrical Systems Engineer Name Role Phone Adrienne March DO Primary Care Provider Encounter Details Date Type Department Care Team (Late st Contact Info) Description 08/01/2004 Outpatient [facility] [address] [address] Wilfredo Michel MD [address] [phone] Social History Tobacco Use Types Packs/Day Years Used Date Smoking Tobacco: Never Assessed Comments Unknown Sex and Gender Information Value Date Recorded Sex Assigned at Not on file 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
--- OUTSIDE RECORDS SUMMARY | 2025-09-01 18:22 | XMS_ITS | Encounter Summary ---
Author Organization [facility] Address [address] [place] [address] Care Team Providers Care Spray Machine Tender Name Role Phone Adrienne March DO Primary Care Provider Encounter Details Date Type Department Care Team (Latest Contact Info) Description 08/01/2004 Outpatient Historical [facility] [address] [place] [address] Wilfredo Michel MD [address] [phone] Muscle weakness (Primary Dx) Social History Tobacco Use Types Packs/Day Years Used Date Smoking Tobacco: Never Assessed Comments Unknown Sex and Gender Information Value Date Recorded Sex Assigned at Not on file Legal Sex Female 3:34 AM COMMUNITY CENTER COORDINATOR Gender Identity Not on file Sexual Orientation Not on file documented as of this encounter Plan of Treatment Not on file documented as of this encounter Visit Diagnoses Diagnosis Muscle weakness- Primary Muscle weakness (generalized) documented in this encounter Care Teams Spray Machine Tender Relationship Specialty Start Date End Date Adrienne March DO [address] [place] [address] PCP - General Family Practice 06/30/10 documented as of this encounter
--- OUTSIDE RECORDS SUMMARY | 2025-09-01 18:22 | XMS_ITS | Encounter Summary ---
Author Organization [facility] Address [address] [place] [address] Care Team Providers Care Historic Sites Supervisor Name Role Phone Adrienne March DO Primary Care Provider +1- [phone] Encounter Details Date Type Department Care Team (Latest Contact Info) Description 01/06/2005 Outpatient [facility] Podiatry-[facility] [place] [address] [place] [address] Abel Hurtado, MARCE NO ADDRESS ON FILE CALCANEAL SPUR (Primary Dx); EXOSTOSIS, SITE NOS Social History Tobacco Use Types Packs/Day Years Used Date Smoking Tobacco: Never Assessed Comments Unknown Sex and Gender Information Value Date Recorded Sex Assigned at Not on file Legal Sex Female 3:34 AM PEDIATRIC DIETICIAN Gender Identity Not on file Sexual Orientation Not on file documented as of this encounter Plan of Treatment Not on file documented as of this encounter Visit Diagnoses Diagnosis Calcaneal spur- Primary Exostosis of unspecified site documented in this encounter Care Teams Historic Sites Supervisor Relationship Specialty Start Date End Date Adrienne March DO [address] [place] [address] PCP - General Family Practice 06/30/10 documented as of this encounter
--- OUTSIDE RECORDS SUMMARY | 2025-09-01 18:22 | XMS_ITS | Encounter Summary ---
Author Organization [facility] Address [address] [place] [address] Care Team Providers Care Usps Letter Carrier Name Role Phone Adrienne March DO Primary Care Provider [phone] Encounter Details Date Type Department Care Team (Latest Contact Info) Description 07/29/2004 Outpatient Historical [facility] [place] [address] [place] [address] Abel Hurtado, DPM NO ADDRESS ON FILE Pain in limb (Primary Dx) Social History Tobacco Use Types Packs/Day Years Used Date Smoking Tobacco: Never Assessed Comments Unknown Sex and Gender Information Value Date Recorded Sex Assigned at Not on file 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
--- OUTSIDE RECORDS SUMMARY | 2025-09-01 18:22 | XMS_ITS | Encounter Summary ---
Author Organization [facility] Address [address] [place] [address] Care Team Providers Care Medication Technician Name Role Phone Adrienne March DO Primary Care Provider Encounter Details Date Type Department Care Team (Latest Contact Info) Description 08/25/2004 Outpatient [facility] Podiatry-[facility] [place] [address] [place] [address] Abel Hurtado, MARCE NO ADDRESS ON FILE Other lymphedema (Primary Dx); LOWER LEG INJURY NOS; DERMATOPHYTOSIS OF FOOT Social History Tobacco Use Types Packs/Day Years Used Date Smoking Tobacco: Never Assessed Comments Unknown Sex and Gender Information Value Date Recorded Sex Assigned at Not on file Legal Sex Female 3:34 AM PAPER ROLLER Gender Identity Not on file Sexual Orientation Not on file documented as of this encounter Plan of Treatment Not on file documented as of this encounter Visit Diagnoses Diagnosis Other lymphedema- Primary Other noninfectious lymphedema Injury, other and unspecified, knee, leg, ankle, and foot Dermatophytosis of foot documented in this encounter Care Teams Medication Technician Relationship Specialty Start Date End Date Adrienne March DO [address] [place] [address] PCP - General Family Practice 06/30/10 documented as of this encounter
--- OUTSIDE RECORDS SUMMARY | 2025-09-01 18:23 | XMS_ITS | Encounter Summary ---
Author Organization [facility] Address [address] [place] [address] Care Team Providers Care Automatic Serging Machine Operator Name Role Phone Adrienne March DO Primary Care Provider +1- [phone] Encounter Details Date Type Department Care Team (Latest Contact Info) Description 06/24/2001 Outpatient Historical [facility] Dipak Malagon MD NO ADDRESS ON FILE Carpal tunnel syndrome (Primary Dx) Social History Tobacco Use Types Packs/Day Years Used Date Smoking Tobacco: Never Assessed Comments Unknown Sex and Gender Information Value Date Recorded Sex Assigned at Not on file 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
--- OUTSIDE RECORDS SUMMARY | 2025-09-01 18:23 | XMS_ITS | Encounter Summary ---
Author Organization [facility] Address [address] [place] [address] Care Team Providers Care Bulk Coolers Installer Name Role Phone Adrienne March DO Primary Care Provider Encounter Details Date Type Department Care Team (Late st Contact Info) Description 12/20/2000 Outpatient Historical [facility] Internal Medicine- [address] [place] [address] Umang Urrutia MD [address] [place] [address] Calcaneal spur (Primary Dx) Social History Tobacco Use Types Packs/Day Years Used Date Smoking Tobacco: Never Assessed Comments Unknown Sex and Gender Information Value Date Recorded Sex Assigned at Not on file 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
--- OUTSIDE RECORDS SUMMARY | 2025-09-01 18:23 | XMS_ITS | Encounter Summary ---
Author Organization [facility] Address [address] [place] [address] Care Team Providers Care Journeyman Powerhouse Operator Name Role Phone Adrienne March DO Primary Care Provider Encounter Details Date Type Department Care Team (Latest Contact Info) Description 02/18/2001 Outpatient Historical [facility] Internal Medicine- [address] [place] [address] Umang Urrutia MD [address] [place] [address] Type II or unspecified type diabetes mellitus without mention of complication, not stated as uncontrolled (Primary Dx); Hypercalcemia Social History Tobacco Use Types Packs/Day Years Used Date Smoking Tobacco: Never Assessed Comments Unknown Sex and Gender Information Value Date Recorded Sex Assigned at Not on file 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
--- OUTSIDE RECORDS SUMMARY | 2025-09-01 18:23 | XMS_ITS | Encounter Summary ---
Author Organization [facility] Address [address] [place] [address] Care Team Providers Care Board Of Directors Name Role Phone Adrienne March DO Primary Care Provider +1- [phone] Encounter Details Date Type Department Care Team (Latest Contact Info) Description 04/04/2001 Outpatient [facility] Podiatry-[facility] [place] [address] [place] [address] Abel Hurtado, DPM NO ADDRESS ON FILE Calcaneal spur (Primary Dx) Social History Tobacco Use Types Packs/Day Years Used Date Smoking Tobacco: Never Assessed Comments Unknown Sex and Gender Information Value Date Recorded Sex Assigned at Not on file Legal Sex Female 3:34 AM 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
--- OUTSIDE RECORDS SUMMARY | 2025-09-01 18:23 | XMS_ITS | Encounter Summary ---
Author Organization [facility] Address [address] [place] [address] Care Team Providers Care Plastic Design Applier Name Role Phone Adrienne March DO Primary Care Provider [phone] Encounter Details Date Type Department Care Team (Late st Contact Info) Description 04/11/1999 Outpatient Historical [facility] Umang Urrutia MD [address] [place] [address] Cervicalgia (Primary Dx); Brachial neuritis or radiculitis NOS; Obesity, unspecified; Encounter for long-term (current) use of other medications Social History Tobacco Use Types Packs/Day Years Used Date Smoking Tobacco: Never Assessed Comments Unknown Sex and Gender Information Value Date Recorded Sex Assigned at Not on file 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
--- OUTSIDE RECORDS SUMMARY | 2025-09-01 18:23 | XMS_ITS | Encounter Summary ---
Author Organization [facility] Address [address] [place] [address] Care Team Providers Care Microphone Boom Operator Name Role Phone Adrienne March DO Primary Care Provider Encounter Details Date Type Department Care Team (Latest Contact Info) Description 09/25/1998 Outpatient Historical HIS [facility] INTERNAL MED Umang Urrutia MD [address] [place] [address] Displacement of intervertebral disc, site unspecified, without myelopathy (Primary Dx); Adhesive capsulit shlder Social History Tobacco Use Types Packs/Day Years Used Date Smoking Tobacco: Never Assessed Comments Unknown Sex and Gender Information Value Date Recorded Sex Assigned at Not on file Legal Sex Female 3:34 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
--- OUTSIDE RECORDS SUMMARY | 2025-09-01 18:23 | XMS_ITS | Encounter Summary ---
Author Organization [facility] Address [address] [place] [address] Care Team Providers Care Seam Checker Name Role Phone Adrienne March DO Primary Care Provider Encounter Details Date Type Department Care Team (Latest Contact Info) Description 07/07/2001 Outpatient [facility] Podiatry-[facility] [place] [address] [place] [address] Abel Hurtado, MARCE NO ADDRESS ON FILE Calcaneal spur (Primary Dx); Plantar fibromatosis; Pain in limb Social History Tobacco Use Types Packs/Day Years Used Date Smoking Tobacco: Never Assessed Comments Unknown Sex and Gender Information Value Date Recorded Sex Assigned at Not on file 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
--- OUTSIDE RECORDS SUMMARY | 2025-09-01 18:23 | XMS_ITS | Encounter Summary ---
Author Organization [facility] Address [address] [place] [address] Care Team Providers Care User Acceptance Tester Name Role Phone Adrienne March DO Primary Care Provider +1- [phone] Encounter Details Date Type Department Care Team (Latest Contact Info) Description 03/18/2001 Outpatient [facility] Podiatry-[facility] [place] [address] [place] [address] Abel Hurtado, DPM NO ADDRESS ON FILE Calcaneal spur (Primary Dx) Social History Tobacco Use Types Packs/Day Years Used Date Smoking Tobacco: Never Assessed Comments Unknown Sex and Gender Information Value Date Recorded Sex Assigned at Not on file Legal Sex Female 3:34 AM INTERVENTIONAL PAIN PHYSICIAN Gender Identity Not on file Sexual Orientation Not on file documented as of this encounter Plan of Treatment Not on file documented as of this encounter Visit Diagnoses Diagnosis Calcaneal spur- Primary documented in this encounter Care Teams User Acceptance Tester Relationship Specialty Start Date End Date Adrienne March DO [address] [place] [address] PCP - General Family Practice 06/30/10 documented as of this encounter
--- OUTSIDE RECORDS SUMMARY | 2025-09-01 18:23 | XMS_ITS | Encounter Summary ---
Author Organization [facility] Address [address] [place] [address] Care Team Providers Care Oil Spot Washer Name Role Phone Adrienne March DO Primary Care Provider +1- [phone] Encounter Details Date Type Department Care Team (Latest Contact Info) Description 12/04/1998 Outpatient Historical [facility] INTER[facility] MED Umang Urrutia MD [address] [place] [address] Cervical spinal stenosis (Primary Dx); Issue of medical certificates Social History Tobacco Use Types Packs/Day Years Used Date Smoking Tobacco: Never Assessed Comments Unknown Sex and Gender Information Value Date Recorded Sex Assigned at Not on file 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
--- OUTSIDE RECORDS SUMMARY | 2025-09-01 18:23 | XMS_ITS | Encounter Summary ---
Author Organization [facility] Address [address] [place] [address] Care Team Providers Care Flight Communications Officer Name Role Phone Adrienne March DO Primary Care Provider Encounter Details Date Type Department Care Team (Late st Contact Info) Description 02/28/1999 Outpatient Historical [facility] INTER[facility] MED Umang Urrutia MD [address] [place] [address] Brachial neuritis or radiculitis NOS (Primary Dx); Adhesive capsulit shlder; Adjustment disorder with anxiety Social History Tobacco Use Types Packs/Day Years Used Date Smoking Tobacco: Never Assessed Comments Unknown Sex and Gender Information Value Date Recorded Sex Assigned at Not on file 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 Sex Female 3:34 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
--- OUTSIDE RECORDS SUMMARY | 2025-09-01 18:23 | XMS_ITS | Encounter Summary ---
Author Organization [facility] Address [address] [place] [address] Care Team Providers Care Wood Stainer Name Role Phone Adrienne March DO Primary Care Provider [phone] Encounter Details Date Type Department Care Team (Late st Contact Info) Description 09/27/1998 Outpatient Historical HIS [facility] INTERNAL MED Umang Urrutia MD [address] [place] [address] Cervical disc displacmnt (Primary Dx); Encounter for long-term (current) use of other medications; Sprain rotator cuff Social History Tobacco Use Types Packs/Day Years Used Date Smoking Tobacco: Never Assessed Comments Unknown Sex and Gender Information Value Date Recorded Sex Assigned at Not on file 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 Gender Identity Not on file Sexual Orientation Not on file documented as of this encounter Plan of Treatment Not on file documented as of this encounter Visit Diagnoses Diagnosis Cervical disc displacmnt- Primary Displacement of cervical intervertebral disc without myelopathy Encounter for long-term (current) use of other medications Sprain rotator cuff Rotator cuff (capsule) sprain documented in this encounter Care Teams Wood Stainer Relationship Specialty Start Date End Date Adrienne March DO [address] [place] [address] PCP - General Family Practice 06/30/10 documented as of this encounter
--- OUTSIDE RECORDS SUMMARY | 2025-09-01 18:23 | XMS_ITS | Encounter Summary ---
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
--- OUTSIDE RECORDS SUMMARY | 2025-09-01 18:23 | XMS_ITS | Encounter Summary ---
Author Organization [facility] Address [address] 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
--- OUTSIDE RECORDS SUMMARY | 2025-09-01 18:23 | XMS_ITS | Encounter Summary ---
Author Organization [facility] Address [address] [place] [address] Care Team Providers Care Trim Machine Adjuster Name Role Phone Adrienne March DO Primary Care Provider +1- [phone] Encounter Details Date Type Department Care Team (Latest Contact Info) Description 03/28/2001 Outpatient [facility] Podiatry-[facility] [place] [address] [place] [address] Abel Hurtado, DPM NO ADDRESS ON FILE Calcaneal spur (Primary Dx) Social History Tobacco Use Types Packs/Day Years Used Date Smoking Tobacco: Never Assessed Comments Unknown Sex and Gender Information Value Date Recorded Sex Assigned at Not on file 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
--- OUTSIDE RECORDS SUMMARY | 2025-09-01 18:23 | XMS_ITS | Encounter Summary ---
Author Organization [facility] Address [address] Segaln: [place] [address] Care Team Providers Care Sap Senior Developer Name Role Phone Adrienne March DO Primary Care Provider +1- [phone] Encounter Details Date Type Department Care Team (Late st Contact Info) Description 08/31/2000 Outpatient Historical Umang Urrutia MD [address] [place] [address] Social History Tobacco Use Types Packs/Day Years Used Date Smoking Tobacco: Never Assessed Comments Unknown Sex and Gender Information Value Date Recorded Sex Assigned at Not on file Legal Sex Female 3:34 AM CLINICAL DATA RESEARCH Gender Identity Not on file Sexual Orientation Not on file documented as of this encounter Plan of Treatment Not on file documented as of this encounter Visit Diagnoses Not on filedocumented in this encounter Care Teams Sap Senior Developer Relationship Specialty Start Date End Date Adrienne March DO [address] [place] [address] PCP - General Family Practice 06/30/10 documented as of this encounter
--- OUTSIDE RECORDS SUMMARY | 2025-09-01 18:23 | XMS_ITS | Encounter Summary ---
Author Organization [facility] Address [address] 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
--- OUTSIDE RECORDS SUMMARY | 2025-09-01 18:23 | XMS_ITS | Encounter Summary ---
Author Organization [facility] Address [address] [place] [address] Care Team Providers Care Chemical Packager Name Role Phone Adrienne March DO Primary Care Provider Encounter Details Date Type Department Care Team (Latest Contact Info) Description 02/21/2001 Outpatient [facility] [place] [address] [place] [address] Abel Hurtado, MARCE NO ADDRESS ON FILE Calcaneal spur (Primary Dx); Tenosynovitis of foot and ankle; Pain in limb Social History Tobacco Use Types Packs/Day Years Used Date Smoking Tobacco: Never Assessed Comments Unknown Sex and Gender Information Value Date Recorded Sex Assigned at Not on file Legal Sex Female 3:34 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
--- OUTSIDE RECORDS SUMMARY | 2025-09-01 18:23 | XMS_ITS | Encounter Summary ---
Author Organization [facility] Address [address] [place] [address] Care Team Providers Care Florist'S Decorator Name Role Phone Adrienne March DO Primary Care Provider Encounter Details Date Type Department Care Team (Late st Contact Info) Description 06/11/2000 Outpatient Historical [facility] [place] [address] [place] [address] Social History Tobacco Use Types Packs/Day Years Used Date Smoking Tobacco: Never Assessed Comments Unknown Sex and Gender Information Value Date Recorded Sex Assigned at Not on file Legal Sex Female 3:34 AM MUSEUM CURATOR Gender Identity Not on file Sexual Orientation Not on file documented as of this encounter Plan of Treatment Not on file documented as of this encounter Visit Diagnoses Not on filedocumented in this encounter Care Teams Florist'S Decorator Relationship Specialty Start Date End Date Adrienne March DO [address] [place] [address] PCP - General Family Practice 06/30/10 documented as of this encounter
--- OUTSIDE RECORDS SUMMARY | 2025-09-01 18:23 | XMS_ITS | Encounter Summary ---
Author Organization [facility] Address [address] [place] [address] Care Team Providers Care Manager Social Responsibility Name Role Phone Adrienne March DO Primary Care Provider Encounter Details Date Type Department Care Team (Latest Contact Info) Description 09/21/2000 Outpatient Historical [facility] Internal Medicine- [address] [place] [phone] Umang Urrutia MD [address] [place] [address] Type II or unspecified type diabetes mellitus without mention of complication, not stated as uncontrolled (Primary Dx); Carpal tunnel syndrome; Pain in limb Social History Tobacco Use Types Packs/Day Years Used Date Smoking Tobacco: Never Assessed Comments Unknown Sex and Gender Information Value Date Recorded Sex Assigned at Not on file Legal Sex Female 3:34 AM ROLL WINDER Gender Identity Not on file Sexual [...] documented in this encounter Care Teams Manager Social Responsibility Relationship Specialty Start Date End Date Adrienne March DO [address] [place] [address] PCP - General Family Practice 06/30/10 documented as of this encounter
--- OUTSIDE RECORDS SUMMARY | 2025-09-01 18:23 | XMS_ITS | Encounter Summary ---
Author Organization [facility] Address [address] [place] [address] Care Team Providers Care Prior Authorization Nurse Name Role Phone Adrienne March DO Primary Care Provider Encounter Details Date Type Department Care Team (Latest Contact Info) Description 04/25/2001 Outpatient [facility] Podiatry[facility] [employer] [address] [place] [address] Abel Hurtado, DPM NO ADDRESS ON FILE Exostosis of unspecified site (Primary Dx) Social History Tobacco Use Types Packs/Day Years Used Date Smoking Tobacco: Never Assessed Comments Unknown Sex and Gender Information Value Date Recorded Sex Assigned at Not on file Legal Sex Female 3:[address] MAINTENANCE SUPERVISOR Gender Identity Not on file Sexual Orientation Not on file documented as of this encounter Plan of Treatment Not on file documented as of this encounter Visit Diagnoses Diagnosis Exostosis of unspecified site- Primary documented in this encounter Care Teams Prior Authorization Nurse Relationship Specialty Start Date End Date Adrienne March DO [address] [place] [address] PCP - General Family Practice 06/30/10 documented as of this encounter
--- OUTSIDE RECORDS SUMMARY | 2025-09-01 18:23 | XMS_ITS | Encounter Summary ---
Author Organization [facility] Address [address] Segaln: [place] [address] Care Team Providers Care Elevated Work Platform Operator Name Role Phone Adrienne March DO Primary Care Provider +1- [phone] Encounter Details Date Type Department Care Team (Late st Contact Info) Description 06/09/2000 Outpatient Historical Alexei Elizabeth MD [address] [place] [address] Social History Tobacco Use Types Packs/Day Years Used Date Smoking Tobacco: Never Assessed Comments Unknown Sex and Gender Information Value Date Recorded Sex Assigned at Not on file Legal Sex Female 3:34 AM HOSPITAL LIAISON Gender Identity Not on file Sexual Orientation Not on file documented as of this encounter Plan of Treatment Not on file documented as of this encounter Visit Diagnoses Not on filedocumented in this encounter Care Teams Elevated Work Platform Operator Relationship Specialty Start Date End Date Adrienne March DO [address] [place] [address] PCP - General Family Practice 06/30/10 documented as of this encounter
--- OUTSIDE RECORDS SUMMARY | 2025-09-01 18:23 | XMS_ITS | Encounter Summary ---
Author Organization [facility] Address [address] [place] [address] Care Team Providers Care Slurry Blender Name Role Phone Adrienne March DO Primary Care Provider Encounter Details Date Type Department Care Team (Latest Contact Info) Description 11/10/1999 Outpatient Historical [facility] Umang Urrutia MD [address] [place] [address] Hypopotassemia (Primary Dx); Unspecified essential hypertension; Encounter for long-term (current) use of other medications Social History Tobacco Use Types Packs/Day Years Used Date Smoking Tobacco: Never Assessed Comments Unknown Sex and Gender Information Value Date Recorded Sex Assigned at Not on file 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
--- OUTSIDE RECORDS SUMMARY | 2025-09-01 18:23 | XMS_ITS | Encounter Summary ---
Author Organization [facility] Address [address] [place] [address] Care Team Providers Care Atmospheric Technician Name Role Phone Adrienne March DO Primary Care Provider Encounter Details Date Type Department Care Team (Latest Contact Info) Description 07/14/[address] [facility] [address] [phone] Lesly Jones MD NO ADDRESS ON FILE Other screening mammogram (Primary Dx) Social History Tobacco Use Types Packs/Day Years Used Date Smoking Tobacco: Never Assessed Comments Unknown Sex and Gender Information Value Date Recorded Sex Assigned at Not on file Legal Sex Female 3:34 AM CLINICAL SCIENCE LIAISON Gender Identity Not on file Sexual Orientation Not on file documented as of this encounter Plan of Treatment Not on file documented as of this encounter Visit Diagnoses Diagnosis Other screening mammogram- Primary documented in this encounter Care Teams Atmospheric Technician Relationship Specialty Start Date End Date Adrienne March DO [address] [place] [address] PCP - General Family Practice 06/30/10 documented as of this encounter
--- OUTSIDE RECORDS SUMMARY | 2025-09-01 18:23 | XMS_ITS | Encounter Summary ---
Author Organization [facility] Address [address] [place] [address] Care Team Providers Care Clinical Informatics Director Name Role Phone Adrienne March DO Primary Care Provider Encounter Details Date Type Department Care Team (Late st Contact Info) Description 04/26/1998 Outpatient [facility] [address] [phone] Flor Belcher MD NO ADDRESS ON FILE Other screening mammogram (Primary Dx) Social History Tobacco Use Types Packs/Day Years Used Date Smoking Tobacco: Never Assessed Comments Unknown Sex and Gender Information Value Date Recorded Sex Assigned at Not on file Legal Sex Female 3:34 AM ANNOUNCER Gender Identity Not on file Sexual Orientation Not on file documented as of this encounter Plan of Treatment Not on file documented as of this encounter Visit Diagnoses Diagnosis Other screening mammogram- Primary documented in this encounter Care Teams Clinical Informatics Director Relationship Specialty Start Date End Date Adrienne March DO [address] [place] [address] PCP - General Family Practice 06/30/10 documented as of this encounter
--- OUTSIDE RECORDS SUMMARY | 2025-09-01 18:23 | XMS_ITS | Encounter Summary ---
Author Organization [facility] Address [address] [place] [address] Care Team Providers Care Camera Machinist Name Role Phone Adrienne March DO Primary Care Provider Encounter Details Date Type Department Care Team (Late st Contact Info) Description 10/15/1998 Outpatient Historical [facility] Umang Urrutia MD [address] [place] [phone] Cervical disc displacmnt (Primary Dx); Encounter for long-term (current) use of other medications Social History Tobacco Use Types Packs/Day Years Used Date Smoking Tobacco: Never Assessed Comments Unknown Sex and Gender Information Value Date Recorded Sex Assigned at Not on file Legal Sex Female 3:34 AM COUNTER MOLDER Gender Identity Not on file Sexual Orientation Not on file documented as of this encounter Plan of Treatment Not on file documented as of this encounter Visit Diagnoses Diagnosis Cervical disc displacmnt- Primary Displacement of cervical intervertebral disc without myelopathy Encounter for long-term (current) use of other medications documented in this encounter Care Teams Camera Machinist Relationship Specialty Start Date End Date Adrienne March DO [address] [place] [address] PCP - General Family Practice 06/30/10 documented as of this encounter
--- OUTSIDE RECORDS SUMMARY | 2025-09-01 18:23 | XMS_ITS | Encounter Summary ---
Author Organization [facility] Address [address] [place] [address] Care Team Providers Care Security Advisor Name Role Phone Adrienne March DO Primary Care Provider Encounter Details Date Type Department Care Team (Latest Contact Info) Description 09/26/1999 Outpatient Historical [facility] Umang Urrutia MD [address] [place] [address] Hypopotassemia (Primary Dx); Encounter for long-term (current) use of other medications; Pain in joint, multiple sites; Other and unspecified hyperlipidemia; Other abnormal blood chemistry Social History Tobacco Use Types Packs/Day Years Used Date Smoking Tobacco: Never Assessed Comments Unknown Sex and Gender Information Value Date Recorded Sex Assigned at Not on file Legal Sex Female 3:34 AM INDUSTRIAL TRAINER Gender Identity Not on file Sexual Orientation Not on file documented as of this encounter Plan of Treatment Not on file documented as of this encounter Visit Diagnoses Diagnosis Hypopotassemia- Primary Encounter for long-term (current) use of other medications Pain in joint, multiple sites Other and unspecified hyperlipidemia Other abnormal blood chemistry documented in this encounter Care Teams Security Advisor Relationship Specialty Start Date End Date Adrienne March DO [address] [place] [address] PCP - General Family Practice 06/30/10 documented as of this encounter
--- OUTSIDE RECORDS SUMMARY | 2025-09-01 18:23 | XMS_ITS | Encounter Summary ---
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
--- OUTSIDE RECORDS SUMMARY | 2025-09-01 18:23 | XMS_ITS | Encounter Summary ---
Author Organization [facility] Address [address] [place] [address] Care Team Providers Care Local Company Hazmat Driver Name Role Phone Adrienne March DO Primary Care Provider [phone] Encounter Details Date Type Department Care Team (Latest Contact Info) Description 12/31/1999 Outpatient Historical [facility] Umang Urrutia MD [address] [place] [address] Hypopotassemia (Primary Dx); Unspecified essential hypertension; Hyperosmolality; Encounter for long-term (current) use of other medications Social History Tobacco Use Types Packs/Day Years Used Date Smoking Tobacco: Never Assessed Comments Unknown Sex and Gender Information Value Date Recorded Sex Assigned at Not on file Legal Sex Female 3:34 AM CELLULAR EQUIPMENT REPAIRER Gender Identity Not on file Sexual Orientation Not on file documented as of this encounter Plan of Treatment Not on file documented as of this encounter Visit Diagnoses Diagnosis Hypopotassemia- Primary Unspecified essential hypertension Hyperosmolality Hyperosmolality and/or hypernatremia Encounter for long-term (current) use of other medications documented in this encounter Care Teams Local Company Hazmat Driver Relationship Specialty Start Date End Date Adrienne March DO [address] [place] [address] PCP - General Family Practice 06/30/10 documented as of this encounter
--- OUTSIDE RECORDS SUMMARY | 2025-09-01 18:23 | XMS_ITS | Encounter Summary ---
Author Organization [facility] Address [address] [place] [address] Care Team Providers Care Bread Icer Name Role Phone Adrienne March DO Primary Care Provider Encounter Details Date Type Department Care Team (Latest Contact Info) Description 03/26/1998 Outpatient Historical [facility] Umang Urrutia MD [address] [place] [address] Headache(784.0) (Primary Dx); Other specified [...] on file Legal Sex Female 3:34 AM SEX OFFENDER TREATMENT PROFESSIONAL Gender Identity Not on file Sexual [...] chemistry documented in this encounter Care Teams Bread Icer Relationship Specialty Start Date End Date Adrienne March DO [address] [place] [address] PCP - General Family Practice 06/30/10 documented as of this encounter
--- OUTSIDE RECORDS SUMMARY | 2025-09-01 18:23 | XMS_ITS | Encounter Summary ---
Author Organization [facility] Address [address] [place] [address] Care Team Providers Care Catheter Finisher And Inspector Name Role Phone Adrienne March DO Primary Care Provider Encounter Details Date Type Department Care Team (Latest Contact Info) Description 08/31/2000 Outpatient Historical [facility] Internal Medicine- [address] [place] [phone] Umang Urrutia MD [address] [place] [address] Type II or unspecified type diabetes mellitus without mention of complication, not stated as uncontrolled (Primary Dx); Hepatitis, unspecified; Carpal tunnel syndrome; Need vaccination-viral disease Social History Tobacco Use Types Packs/Day Years Used Date Smoking Tobacco: Never Assessed Comments Unknown Sex and Gender Information Value Date Recorded Sex Assigned at Not on file Legal Sex Female 3:34 AM CHILDREN'S SERVICE SUPERVISOR Gender Identity Not on file [...] diseases documented in this encounter Care Teams Catheter Finisher And Inspector Relationship Specialty Start Date End Date Adrienne March DO [address] [place] [address] PCP - General Family Practice 06/30/10 documented as of this encounter
--- OUTSIDE RECORDS SUMMARY | 2025-09-01 18:23 | XMS_ITS | Encounter Summary ---
Author Organization [facility] Address [address] [place]illo: [place] [address] Care Team Providers Care Evp Of Products & Co Founder Name Role Phone Adrienne March DO Primary Care Provider +1- [phone] Encounter Details Date Type Department Care Team (Late st Contact Info) Description 09/26/1999 Outpatient Historical Umang Urrutia MD [address] [place] [address] Social History Tobacco Use Types Packs/Day Years Used Date Smoking Tobacco: Never Assessed Comments Unknown Sex and Gender Information Value Date Recorded Sex Assigned at Not on file Legal Sex Female 3:34 AM PERSONAL CARE HOME ADMINISTRATOR Gender Identity Not on file Sexual Orientation Not on file documented as of this encounter Plan of Treatment Not on file documented as of this encounter Visit Diagnoses Not on filedocumented in this encounter Care Teams Evp Of Products & Co Founder Relationship Specialty Start Date End Date Adrienne March DO [address] [place] [address] PCP - General Family Practice 06/30/10 documented as of this encounter
--- OUTSIDE RECORDS SUMMARY | 2025-09-01 18:23 | XMS_ITS | Encounter Summary ---
Author Organization [facility] Address [address] [place] [address] Care Team Providers Care Marker Machine Attendant Name Role Phone Adrienne March DO Primary Care Provider Encounter Details Date Type Department Care Team (Late st Contact Info) Description 10/02/1998 Outpatient Historical [facility] MED Umang Urrutia MD [address] [place] [address] Cervical disc displacmnt (Primary Dx); Premature beats, unspecified; Other specified cardiac dysrhythmias(427.89 ) Social History Tobacco Use Types Packs/Day Years Used Date Smoking Tobacco: Never Assessed Comments Unknown Sex and Gender Information Value Date Recorded Sex Assigned at Not on file Legal Sex Female 3:34 AM POULTRY KILLER Gender Identity Not on file Sexual Orientation Not on file documented as of this encounter Plan of Treatment Not on file documented as of this encounter Visit Diagnoses Diagnosis Cervical disc displacmnt- Primary Displacement of cervical intervertebral disc without myelopathy Premature beats, unspecified Other specified cardiac dysrhythmias(427.89) Other specified cardiac dysrhythmias documented in this encounter Care Teams Marker Machine Attendant Relationship Specialty Start Date End Date Adrienne March DO [address] [place] [phone] PCP - General Family Practice 06/30/10 documented as of this encounter
--- OUTSIDE RECORDS SUMMARY | 2025-09-01 18:23 | XMS_ITS | Encounter Summary ---
Author Organization [facility] Address [address] [place] [address] Care Team Providers Care Fireworks Maker Name Role Phone Adrienne March DO Primary Care Provider [phone]- [phone] Encounter Details Date Type Department Care Team (Latest Contact Info) Description 05/09/1999 Outpatient Historical [facility] [address] [phone] Jaime Barba MD NO ADDRESS ON FILE Other screening mammogram (Primary Dx) Social History Tobacco Use Types Packs/Day Years Used Date Smoking Tobacco: Never Assessed Comments Unknown Sex and Gender Information Value Date Recorded Sex Assigned at Not on file Legal Sex Female 3:34 AM MONOTYPE MACHINIST Gender Identity Not on file Sexual Orientation Not on file documented as of this encounter Plan of Treatment Not on file documented as of this encounter Visit Diagnoses Diagnosis Other screening mammogram- Primary documented in this encounter Care Teams Fireworks Maker Relationship Specialty Start Date End Date Adrienne March DO [address] [place] [address] PCP - General Family Practice 06/30/10 documented as of this encounter
--- OUTSIDE RECORDS SUMMARY | 2025-09-01 18:23 | XMS_ITS | Encounter Summary ---
Author Organization [facility] Address [address] [place] [address] Care Team Providers Care Pipelines Laborer Name Role Phone Adrienne March DO Primary Care Provider Encounter Details Date Type Department Care Team (Late st Contact Info) Description 01/29/[address] [facility] INTERNAL MED Umang Urrutia MD [address] [place] [phone] Adhesive capsulit shlder (Primary Dx); Cervical spinal stenosis; Encounter for long-term (current) use of other medications Social History Tobacco Use Types Packs/Day Years Used Date Smoking Tobacco: Never Assessed Comments Unknown Sex and Gender Information Value Date Recorded Sex Assigned at Not on file Legal Sex Female 3:34 AM GARDEN EQUIPMENT MECHANIC Gender Identity Not on file Sexual Orientation Not on file documented as of this encounter Plan of Treatment Not on file documented as of this encounter Visit Diagnoses Diagnosis Adhesive capsulit shlder- Primary Adhesive capsulitis of shoulder Cervical spinal stenosis Spinal stenosis in cervical region Encounter for long-term (current) use of other medications documented in this encounter Care Teams Pipelines Laborer Relationship Specialty Start Date End Date Adrienne March DO [address] [place] [phone] PCP - General Family Practice 06/30/10 documented as of this encounter
--- OUTSIDE RECORDS SUMMARY | 2025-09-01 18:23 | XMS_ITS | Encounter Summary ---
Author Organization [facility] Address [address] [place] [address] Care Team Providers Care Medical Social Worker Name Role Phone Adrienne March DO Primary Care Provider Encounter Details Date Type Department Care Team (Late st Contact Info) Description 01/13/1999 Outpatient Historical [facility] INTERNAL MED Umang Urrutia MD [address] [place] [phone] Cervical spinal stenosis (Primary Dx); Viral labyrinthitis; Unspecified adjustment reaction Social History Tobacco Use Types Packs/Day Years Used Date Smoking Tobacco: Never Assessed Comments Unknown Sex and Gender Information Value Date Recorded Sex Assigned at Not on file Legal Sex Female 3:34 AM DIESEL MOTOR MECHANIC Gender Identity Not on file Sexual Orientation Not on file documented as of this encounter Plan of Treatment Not on file documented as of this encounter Visit Diagnoses Diagnosis Cervical spinal stenosis- Primary Spinal stenosis in cervical region Viral labyrinthitis Unspecified adjustment reaction documented in this encounter Care Teams Medical Social Worker Relationship Specialty Start Date End Date Adrienne March DO [address] [place] [address] PCP - General Family Practice 06/30/10 documented as of this encounter
--- OUTSIDE RECORDS SUMMARY | 2025-09-01 18:23 | XMS_ITS | Encounter Summary ---
Author Organization [facility] Address [address] Segaln: [place] [address] Care Team Providers Care Chronometer Assembler And Adjuster Name Role Phone Adrienne March DO Primary Care Provider +1- [phone] Encounter Details Date Type Department Care Team (Late st Contact Info) Description 05/31/2001 Outpatient Historical Umang Urrutia MD [address] [place] [phone] Social History Tobacco Use Types Packs/Day Years Used Date Smoking Tobacco: Never Assessed Comments Unknown Sex and Gender Information Value Date Recorded Sex Assigned at Not on file Legal Sex Female 3:34 AM PLASTIC PRINTER Gender Identity Not on file Sexual Orientation Not on file documented as of this encounter Plan of Treatment Not on file documented as of this encounter Visit Diagnoses Not on filedocumented in this encounter Care Teams Chronometer Assembler And Adjuster Relationship Specialty Start Date End Date Adrienne March DO [address] [place] [address] PCP - General Family Practice 06/30/10 documented as of this encounter
--- OUTSIDE RECORDS SUMMARY | 2025-09-01 18:23 | XMS_ITS | Encounter Summary ---
Author Organization [facility] Address [address] [place] [address] Care Team Providers Care Casting Machine Operator Helper Name Role Phone Adrienne March DO Primary Care Provider +1- [phone] Encounter Details Date Type Department Care Team (Latest Contact Info) Description 07/14/2000 Outpatient Historical [facility] Cardiology- [place] [address] [place] [phone] Lukas Degroot MD NO ADDRESS ON FILE Precordial pain (Primary Dx); Palpitations Social History Tobacco Use Types Packs/Day Years Used Date Smoking Tobacco: Never Assessed Comments Unknown Sex and Gender Information Value Date Recorded Sex Assigned at Not on file Legal Sex Female 3:34 AM NETWORK SOLUTIONS ARCHITECT Gender Identity Not on file Sexual Orientation Not on file documented as of this encounter Plan of Treatment Not on file documented as of this encounter Visit Diagnoses Diagnosis Precordial pain- Primary Palpitations documented in this encounter Care Teams Casting Machine Operator Helper Relationship Specialty Start Date End Date Adrienne March DO [address] [place] [address] PCP - General Family Practice 06/30/10 documented as of this encounter
--- OUTSIDE RECORDS SUMMARY | 2025-09-01 18:23 | XMS_ITS | Encounter Summary ---
Author Organization [facility] Address [address] [place]: [place] [address] Care Team Providers Care Complaint Evaluation Officer Name Role Phone Adrienne March DO Primary Care Provider +1- [phone] Encounter Details Date Type Department Care Team (Late st Contact Info) Description 03/11/2001 Outpatient Historical Abel Hurtado, DPM NO ADDRESS ON FILE Social History Tobacco Use Types Packs/Day Years Used Date Smoking Tobacco: Never Assessed Comments Unknown Sex and Gender Information Value Date Recorded Sex Assigned at Not on file Legal Sex Female 3:34 AM RACING SECRETARY Gender Identity Not on file Sexual Orientation Not on file documented as of this encounter Plan of Treatment Not on file documented as of this encounter Visit Diagnoses Not on filedocumented in this encounter Care Teams Complaint Evaluation Officer Relationship Specialty Start Date End Date Adrienne March DO [address] [facility] [place] [facility] [place] [address] PCP - General Family Practice 06/30/10 documented as of this encounter
--- OUTSIDE RECORDS SUMMARY | 2025-09-01 18:23 | XMS_ITS | Encounter Summary ---
Author Organization [facility] Address [address] Murillo: [place] [address] Care Team Providers Care Varitypist Name Role Phone Adrienne March DO Primary Care Provider +1- [phone] Encounter Details Date Type Department Care Team (Late st Contact Info) Description 02/21/2001 Outpatient Historical Abel Hurtado, DPM NO ADDRESS ON FILE Social History Tobacco Use Types Packs/Day Years Used Date Smoking Tobacco: Never Assessed Comments Unknown Sex and Gender Information Value Date Recorded Sex Assigned at Not on file Legal Sex Female 3:34 AM JANITOR AND CLEANER Gender Identity Not on file Sexual Orientation Not on file documented as of this encounter Plan of Treatment Not on file documented as of this encounter Visit Diagnoses Not on filedocumented in this encounter Care Teams Varitypist Relationship Specialty Start Date End Date Adrienne March DO [address] [facility] [place] [address] PCP - General Family Practice 06/30/10 documented as of this encounter
--- OUTSIDE RECORDS SUMMARY | 2025-09-01 18:23 | XMS_ITS | Encounter Summary ---
Author Organization [facility] Address [address] Segal[place]: [place] [address] Care Team Providers Care Extractor Operator Name Role Phone Adrienne March DO Primary Care Provider +1- [phone] Encounter Details Date Type Department Care Team (Late st Contact Info) Description 02/21/2001 Outpatient Historical Umang Urrutia MD [address] [place] [phone] Social History Tobacco Use Types Packs/Day Years Used Date Smoking Tobacco: Never Assessed Comments Unknown Sex and Gender Information Value Date Recorded Sex Assigned at Not on file Legal Sex Female 3:34 AM INVESTIGATIONS CHIEF Gender Identity Not on file Sexual Orientation Not on file documented as of this encounter Plan of Treatment Not on file documented as of this encounter Visit Diagnoses Not on filedocumented in this encounter Care Teams Extractor Operator Relationship Specialty Start Date End Date Adrienne March DO [address] [place] [address] PCP - General Family Practice 06/30/10 documented as of this encounter
--- OUTSIDE RECORDS SUMMARY | 2025-09-01 18:23 | XMS_ITS | Encounter Summary ---
Author Organization [facility] Address [address] [place] [address] Care Team Providers Care Server Support Technician Name Role Phone Adrienne March DO Primary Care Provider +1- [phone] Encounter Details Date Type Department Care Team (Latest Contact Info) Description 03/28/1999 Outpatient Historical [facility] INTERNAL MED Umang Urrutia MD [address] [place] [address] Cervical disc displacmnt (Primary Dx); [...] hyperlipidemia documented in this encounter Care Teams Server Support Technician Relationship Specialty Start Date End Date Adrienne March DO [address] [place] [address] PCP - General Family Practice 06/30/10 documented as of this encounter
--- OUTSIDE RECORDS SUMMARY | 2025-09-01 18:23 | XMS_ITS | Encounter Summary ---
Author Organization [facility] Address [address] [place] [address] Care Team Providers Care Hard [place] Miner Blasting Name Role Phone Adrienne March DO Primary Care Provider Encounter Details Date Type Department Care Team (Latest Contact Info) Description 06/09/2000 Outpatient Historical [facility] [address] Alexei Elizabeth MD [address] [place] [address] Lipoma of unspecified site (Primary Dx); Cardiomegaly; Edema Social History Tobacco Use Types Packs/Day Years Used Date Smoking Tobacco: Never Assessed Comments Unknown Sex and Gender Information Value Date Recorded Sex Assigned at Not on file 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
--- OUTSIDE RECORDS SUMMARY | 2025-09-01 18:23 | XMS_ITS | Encounter Summary ---
Author Organization [facility] Address [address] [place] [address] Care Team Providers Care Snow Removal Supervisor Name Role Phone Adrienne March DO Primary Care Provider Encounter Details Date Type Department Care Team (Late st Contact Info) Description 05/12/1999 Outpatient [facility] [address], [address] [place] [phone] Lukas Vang MD [address] [place] [address] Pain in limb (Primary Dx) Social History Tobacco Use Types Packs/Day Years Used Date Smoking Tobacco: Never Assessed Comments Unknown Sex and Gender Information Value Date Recorded Sex Assigned at Not on file 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
--- OUTSIDE RECORDS SUMMARY | 2025-09-01 18:23 | XMS_ITS | Encounter Summary ---
Author Organization [facility] Address [address] [place] [address] Care Team Providers Care Card Lacer Jacquard Name Role Phone Adrienne March DO Primary Care Provider Encounter Details Date Type Department Care Team (Late st Contact Info) Description 04/16/1999 Outpatient Historical [facility] Neurology [address], [address] [place] [phone] Lukas Vang MD [address] [place] [address] Pain in limb (Primary Dx) Social History Tobacco Use Types Packs/Day Years Used Date Smoking Tobacco: Never Assessed Comments Unknown Sex and Gender Information Value Date Recorded Sex Assigned at Not on file 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
--- OUTSIDE RECORDS SUMMARY | 2025-09-01 18:23 | XMS_ITS | Encounter Summary ---
Author Organization [facility] Address [address] [place] [address] Care Team Providers Care Precast Molder Name Role Phone Adrienne March DO Primary Care Provider Encounter Details Date Type Department Care Team (Latest Contact Info) Description 01/27/2001 Outpatient [facility] Podiatry-[facility] [place] [address] [place] [address] Abel Hurtado, MARCE NO ADDRESS ON FILE Calcaneal spur (Primary Dx); Tenosynovitis of foot and ankle; Cellulitis and abscess of foot, except toes; Pain in limb Social History Tobacco Use Types Packs/Day Years Used Date Smoking Tobacco: Never Assessed Comments Unknown Sex and Gender Information Value Date Recorded Sex Assigned at Not on file 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
--- OUTSIDE RECORDS SUMMARY | 2025-09-01 18:23 | XMS_ITS | Encounter Summary ---
Author Organization [facility] Address [address] [place] [address] Care Team Providers Care Registered Medical Transcriptionist Name Role Phone Adrienne March DO Primary Care Provider +1- [phone] Encounter Details Date Type Department Care Team (Latest Contact Info) Description 05/30/2001 Outpatient [facility] Podiatry-[facility] [place] [address] [place] [address] Abel Hurtado, DPM NO ADDRESS ON FILE Pain in limb (Primary Dx); Calcaneal spur Social History Tobacco Use Types Packs/Day Years Used Date Smoking Tobacco: Never Assessed Comments Unknown Sex and Gender Information Value Date Recorded Sex Assigned at Not on file 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
--- OUTSIDE RECORDS SUMMARY | 2025-09-01 18:23 | XMS_ITS | Clinical Summary ---
Author Organization [facility] Address [address] [place] [address] Care Team Providers Care Talcer Name Role Phone AncaConstanza forbesshae Terrazas DO Primary Care Provider [phone] Allergies Active Allergy Reactions Criticality Noted Date Comments Adhesive Tape-Silicones Rash Low 09/05/2020 Amoxicillin-Pot Clavulanate Diarrhea,Abdominal Pain Medium 09/07/2008 Codeine Unknown 04/09/2009 Semaglutide Other (See Comments) 07/13/2018 just didn't feel good Silver Sulfadiazine Swelling Low 12/29/2013 Medications aspirin (ECOTRIN EC) 81 mg Tablet, Delayed Release (E.C.) Take 81 mg by mouth daily. Active lancets (OneTouch Delica Plus Lancet) 33 gaugeIndication s:Type 2 diabetes mellitus without complication, without long-term current use of insulin ([facility]) USE TO TEST BLOOD SUGAR TWICE DAILY AND NEEDED. 200 Each 7 05/12/20 23 Active Spiriva Respimat 2.5 mcg/actuation MistIndications :Chronic respiratory failure with hypoxia and hypercapnia ([facility]),Decre ased lung sounds Inhale TWO puffs BY MOUTH DAILY 4 Gram 3 08/24/20 23 Active dapagliflozin propanediol (FARXIGA) 5 mg TabletIndicatio ns:Type 2 diabetes mellitus with diabetic polyneuropathy, unspecified whether pin puller insulin use ([facility]),Frail elderly,History of CVA (cerebrovascula r accident) without residual deficits Take 1 Tablet (5 mg) by mouth daily. 100 Tablet 3 01/03/20 24 Active cetirizine (ZyrTEC) 10 mg tabletIndicatio ns:Viral upper respiratory infection take 1 tablet by mouth daily 100 Tablet 3 04/06/20 24 Active flash glucose scanning reader (FreeStyle Ailin 2 [place]) MiscIndications :Type 2 diabetes mellitus without complication, without long-term current use of insulin ([facility]) Use to monitor glucose continuously. 1 Each 04/18/20 24 Active portable oxygenIndicatio ns:Chronic respiratory failure with hypoxia and hypercapnia ([facility]),Chron ic obstructive pulmonary disease, unspecified COPD type ([facility]),Cor pulmonale ([facility]) Portable oxygen concentrator Face to Face completed within 30 days: yes Length of Need: 99 months By: Nasal Cannula Continuously at 2 L/min. 1 Each 05/23/20 24 Active naloxone (NARCAN) 4 mg/spray [place], Non-Aerosol EMERGENCY USE ONLY: Administer 1 spray (4 mg) in one nostril one time. May repeat in alternating nostrils every 2-3 min until responsive or EMS arrives. 2 Each 3 07/24/20 24 Active flash glucose sensor (FreeStyle Ailin 2 Sensor) KitIndications: Type 2 diabetes mellitus without complication, without long-term current use of insulin ([facility]) Use to monitor glucose continuously. Replace sensor every 14 days. 6 Kit 3 08/24/20 24 Active atorvastatin (LIPITOR) 40 mg tablet Take 1 Tablet by mouth daily. 08/07/20 24 Active polyethylene glycol 3350 (Miralax) 17 gram/dose PowderIndicatio ns:Other constipation Take 1 Scoop (17 Grams) by mouth daily. Dissolve in 8 ounces of fluid and drink entire liquid 527 Gram 10/05/19 25 Active dulaglutide (TRULICITY) 3 mg/0.5 mL injectionIndica tions:Type 2 diabetes mellitus with diabetic polyneuropathy, with long-term current use of insulin ([facility]) Inject 0.5 mL (3 mg) by subcutaneous injection every 7 days. 6 mL 3 10/06/19 25 Active Safety Lancets 28 gauge TEST 1 TIME DAILY 100 Each 4 11/02/20 25 Active alcohol Pads, Medicated TEST 1 TIME DAILY 100 Each 11/02/19 25 Active OneTouch Ultra Test Strip TEST 1 TIME DAILY 100 Each 11/02/19 25 Active potassium CHLORIDE (K-DUR,KLOR-CON M20) 20 mEq Extended Release tablet take 1 tablet by mouth once daily 100 Tablet 3 01/13/20 25 Active phenytoin sodium (DILANTIN) 100 mg extended release capsule TAKE 3 CAPSULES BY MOUTH TWICE DAILY. 540 Capsule 2 01/13/20 Active metoprolol succinate (TOPROL XL) 25 mg Extended Release 24 hour tablet TAKE THREE TABLETS BY MOUTH EVERY 12 hours 540 Tablet 3 01/13/20 25 Active ondansetron (ZOFRAN ODT) 4 mg Tablet, Rapid DissolveIndicat ions:Nausea and vomiting, unspecified vomiting type Take 1 Tablet (4 mg) by mouth every 8 hours as needed for Nausea/Emesis. Dissolve tablet on top of tongue, then swallow with saliva. 30 Tablet 03/19/20 25 Active albuterol sulfate HFA 90 mcg/actuation aerosol inhalerIndicati ons:Chronic respiratory failure with hypoxia and hypercapnia (CMS/HCC),Decre ased lung sounds Inhale TWO puffs BY MOUTH EVERY SIX hours NEEDED FOR SHORTNESS OF BREATH OR wheezing. 8.5 Gram 4 03/26/20 25 Active levothyroxine 137 mcg tabletIndicatio ns:Hypothyroidi sm due to acquired atrophy of thyroid Take 1 Tablet (137 mcg) by mouth daily in the morning. 90 Tablet 4 04/08/20 25 Active esomeprazole (NexIUM) 20 mg Capsule, Delayed Release(E.C.) take 1 capsule by mouth daily before breakfast 02/22/20 25 Active metFORMIN (GLUCOPHAGE) 500 mg tabletIndicatio ns:Type 2 diabetes mellitus with diabetic polyneuropathy, with long-term current use of insulin (CMS/HCC) TAKE ONE TABLET BY MOUTH TWICE DAILY. 180 Tablet 3 04/13/20 25 Active apixaban (Eliquis) 5 mg tablet TAKE ONE TABLET BY MOUTH TWICE DAILY. 60 Tablet 11 05/09/20 25 Active ergocalciferol (VITAMIN D2) 50,000 unit capsule TAKE 1 CAPSULE BY MOUTH EVERY 21 DAYS 6 Capsule 05/25/20 25 Active bumetanide (BUMEX) 2 mg tabletIndicatio ns:Fluid retention TAKE ONE TO TWO TABLETS BY MOUTH DAILY 90 Tablet 1 06/12/20 25 Active lactulose (ENULOSE) 10 gram/15 mL oral solutionIndicat ions:Constipati on, unspecified constipation type Take 30 mL by mouth daily. 473 mL 1 06/18/20 25 Active promethazine-de xtromethorphan (PHENERGAN-DM) 6.25-15 mg/5 mL syrupIndication s:Other cough Take 5 mL by mouth every 4 hours as needed for Cough. 120 mL 1 06/21/20 25 Active Blood-Glucose Transmitter (Dexcom G6 Transmitter) DeviceIndicatio ns:Type 2 diabetes mellitus with diabetic polyneuropathy, with long-term current use of insulin (CMS/HCC),Type 2 diabetes mellitus with stage 3b chronic kidney disease, without long-term current use of insulin (CMS/HCC) Fasten on top of the sensor to wirelessly send data to the edge inker heels. Must be changed every 3 months. 1 Each 3 06/25/20 25 Active Blood-Glucose Sensor (Dexcom G6 Sensor) DeviceIndicatio ns:Type 2 diabetes mellitus with diabetic polyneuropathy, with long-term current use of insulin (CMS/HCC),Type 2 diabetes mellitus with stage 3b chronic kidney disease, without long-term current use of insulin (CMS/HCC) Discreetly worn under clothing to measure glucose levels just underneath the skin. Must change sensor every 10 days. 1 Each 12 06/25/20 25 Active Blood-Glucose Meter,Continuou s (Dexcom G6 D[employer] Supplies Sales Representative)Indica tions:Type 2 diabetes mellitus with diabetic polyneuropathy, with long-term current use of insulin (CMS/HCC),Type 2 diabetes mellitus with stage 3b chronic kidney disease, without long-term current use of insulin (CMS/HCC) Use to monitor blood glucose continuously throughout the day. 1 Each 06/25/20 25 Active diclofenac sodium (VOLTAREN) 1 % gelIndications: Pulled muscle Apply 2 Grams to affected area 4 times daily. 100 Gram 07/02/20 25 Active mupirocin (BACTROBAN) 2 % OintmentIndicat ions:Laceration of left knee, initial encounter Apply to affected area daily. 15 Gram 07/02/20 25 Active azelastine (ASTELIN) 137 mcg/actuation nasal sprayIndication s:Post-nasal drip ADMINISTER TWO SPRAYS IN EACH NOSTRIL TWICE DAILY 30 mL 3 07/06/20 25 Active traZODone (DESYREL) 50 mg tablet TAKE ONE TABLET BY MOUTH DAILY AT BEDTIME 100 Tablet 3 07/06/20 25 Active fluconazole (DIFLUCAN) 150 mg tabletIndicatio ns:Vaginal yeast infection Take 1 tablet by mouth now, wait 72 hours and take 1 tablet by mouth 2 Tablet 1 07/17/20 25 Active nystatin (MYCOSTATIN) 100,000 unit/gram CreamIndication s:Yeast dermatitis Apply to affected area 2 times daily. 30 Gram 1 07/17/20 25 Active desvenlafaxine (PRISTIQ) 100 mg Extended Release 24 hour tablet Take 1 Tablet (100 mg) by mouth daily with breakfast. 90 Tablet 4 07/25/20 25 Active oxyCODONE-aceta minophen (PERCOCET) 10-325 mg TabletIndicatio ns:Degenerative spondylolisthes is,DDD (degenerative disc disease), lumbar Take 1 Tablet by mouth every 4 hours as needed for Pain, Severe. Max Daily Amount: 6 Tablets 50 Tablet 08/02/20 25 Active vit C/E/Zn/coppr/dell tein/zeaxan (E[facility] HEALTH AREDS-2 ORAL) Take 1 Capsule by mouth daily. Active fluticasone propionate (FLONASE) 50 mcg/spray [place], Suspension nasal inhalerIndicati ons:Fluid level behind tympanic membrane of left ear Administer 2 Sprays in each nostril daily. 16 Gram 3 08/06/20 25 Active famotidine (PEPCID) 20 mg tabletIndicatio ns:Gastroesopha geal reflux disease without esophagitis TAKE ONE TABLET BY MOUTH TWICE DAILY 180 Tablet 3 08/22/20 25 Active fluticasone propionate (FLONASE) 50 mcg/spray [place], Suspension nasal inhalerIndicati ons:Sinus congestion Administer 1 [place] in each nostril 2 times daily. shake before using 48 mL 05/11/20 23 2024 Discontinued famotidine (PEPCID) 20 mg tabletIndicatio ns:Gastroesopha geal reflux disease without esophagitis Take 1 Tablet (20 mg) by mouth 2 times daily. 60 Tablet 4 03/29/20 25 2024 Discontinued Active Problems Problem Noted Date Diagnosed Date Stage 3b chronic kidney disease 07/02/2025 Chronic UTI 06/21/2025 Abdominal lymphadenopathy 07/27/2024 Paroxysmal atrial fibrillation 07/22/2024 [...] Encounters Date Type Department Care Team Description 08/22/2025 Refill [facility] [address] [place] [address] December, Gastroesophageal reflux disease without esophagitis 08/09/2025 Results Follow-Up [facility] [address] [place] [address] December, PLANNING AND ANALYSIS MANAGER POC URINALYSIS DIPSTICK AUTOMATED, URINE CULTURE 08/06/2025 8:00 AM PRINTING MACHINE OPERATOR Office [facility] [address] [facility] [address] December, PLANNING AND ANALYSIS MANAGER Recurrent UTI (Primary Dx); Fluid level behind tympanic membrane of left ear; Frail elderly; Panlobular emphysema (CMS/HCC); Paroxysmal atrial fibrillation (CMS/HCC) 08/02/2025 Refill [facility] [address] [place] [address] Adrienne March DO Degenerative spondylolisthesis; DDD (degenerative disc disease), lumbar 08/02/2025 Orders Only [facility] Information [facility] [place] [address] [place] [address] Provider, Abstract 07/31/2025 Results Follow-Up [facility] [address] [place] [address] Adrienne March DO POC URINALYSIS DIPSTICK NON AUTOMATED, CBC WITH DIFFERENTIAL, COMPREHENSIVE METABOLIC PANEL, Additional followed-up results: 6 07/27/2025 Telephone [facility] [place] [address] [place] [address] Adrienne March DO hands and feet are numb 07/27/2025 Telephone [place] [address] [place] [address] Adrienne March DO Lab Results 07/25/2025 10:00 AM PRINTING MACHINE OPERATOR Office Visit [facility] [address] [place] [address] Adrienne March DO Type 2 diabetes mellitus with diabetic polyneuropathy, with long-term current use of insulin ([facility]) (Primary Dx); Need for influenza vaccination; Type 2 diabetes mellitus with stage 3b chronic kidney disease, without long-term current use of insulin ([facility]); Recurrent UTI; Panlobular emphysema ([facility]); Paroxysmal atrial fibrillation (CMS/HCC); Chronic respiratory failure with hypoxia and hypercapnia ([facility]); Frail elderly; Gastroesophageal reflux disease without esophagitis; Hypothyroidism due to acquired atrophy of thyroid; Mixed hyperlipidemia; Multinodular goiter; Chronic midline low back pain with bilateral sciatica; History of vertebral compression fracture; Essential hypertension; Moderate to severe aortic stenosis; History of CVA (cerebrovascular accident) without residual deficits; History of seizure disorder; Recurrent major depressive disorder, in full remission 07/25/2025 Refill [facility] [address] [phone] Jessica Torres NP Yeast dermatitis 07/17/2025 3:00 PM CDT Office Visit [facility] [address] [phone] Jessica Torres NP Vaginal yeast infection (Primary Dx); Yeast dermatitis; Vaginal pain 07/10/2025 3:50 PM CDT - 07/10/2025 11:59 PM CDT Hospital Encounter [facility] [address] [place] [phone] Jessica Torres NP Discharge Disposition: Home or Self Care 07/10/2025 3:20 PM CDT Office Visit [address] [phone] Jessica Torres NP Slow transit constipation (Primary Dx) 07/10/2025 External Device Data [facility] ABSTRACTION Provider, Abstract 07/10/2025 Results Follow-Up [address] [place] [phone] Jessica Torres NP XR ABDOMEN 1 VW 07/06/2025 Refill [facility] [address] [place] [address] Adrienne March DO 07/06/2025 Refill [facility] [address] [place] [address] Katie December, PLANNING AND ANALYSIS MANAGER Post-nasal drip; Gastroesophageal reflux disease without esophagitis 07/05/2025 Refill [facility] [address] [place] [address] Whit Freeman, PLANNING AND ANALYSIS MANAGER Yeast infection 07/02/2025 3:46 PM CDT - 07/02/2025 11:59 PM CDT Hospital Encounter [facility] [address] [facility] [address] [place] [address] Whit Freeman, MIYA Discharge Disposition: Home or Self Care 07/02/2025 3:00 PM CDT Office Visit [facility] [address] [phone] Whit Freeman, MIYA Urinary tract infection without hematuria, site unspecified (Primary Dx); Acute cough; COPD with exacerbation ([facility]); Yeast infection; Pulled muscle; History of falling; Chronic UTI; Stage 3b chronic kidney disease ([facility]); Laceration of left knee, initial encounter 07/02/2025 Results Follow-Up [address] [phone] Whit Freeman, PLANNING AND ANALYSIS MANAGER XR CHEST PA AND LATERAL 2 VW 06/29/[address] [phone] Whit Freeman, PLANNING AND ANALYSIS MANAGER Other cough 06/26/2025 Results Follow-Up [address] [phone] Whit Freeman, PLANNING AND ANALYSIS MANAGER POC URINALYSIS DIPSTICK AUTOMATED, URINE CULTURE 06/25/2025 Refill [facility] [address] [place] [phone] Adrienne March, Type 2 diabetes mellitus with diabetic polyneuropathy, with long-term current use of insulin ([facility]); Type 2 diabetes mellitus with stage 3b chronic kidney disease, without long-term current use of insulin ([facility]) 06/25/2025 Refill [facility] [address] [place] [phone] Adrienne March DO Degenerative spondylolisthesis; DDD (degenerative disc disease), lumbar 06/22/2025 Orders Only [facility] [address] [place] [address] Adrienne March, DO 06/21/2025 10:40 AM CDT Office Visit [facility] [address] [place] [address] Whit Freeman, PLANNING AND ANALYSIS MANAGER Urinary pain (Primary Dx); Suspected UTI; Vaginal yeast infection; Other cough; Chronic UTI 06/18/2025 3:40 PM CDT Office Visit [facility] [address] [place] [address] WilsonDecember, PLANNING AND ANALYSIS MANAGER Constipation, unspecified constipation type (Primary Dx) 06/18/2025 Nurse Triage [facility] [address] [place] [address] Adrienne March, DO 06/12/2025 Refill [facility] [address] [place] [address] Wilson, December, PLANNING AND ANALYSIS MANAGER Fluid retention 06/11/2025 Results Follow-Up [address] [place] [address] Whit Freeman, MIYA POC URINALYSIS DIPSTICK AUTOMATED, URINE CULTURE 06/11/2025 Orders Only [address] [phone] Whit Freeman, PLANNING AND ANALYSIS MANAGER Infective urethritis (Primary Dx) 06/07/2025 1:20 PM CDT Office Visit [address] [phone] Whit Freeman, MIYA Urinary pain (Primary Dx); Chronic insomnia from Last 3 Months Immunizations Immunization Administration Dates Next Due (ADACEL/BOOSTRIX)(10 YR UP) TDAP VACCINE, 0.5ML, IM 09/14/2024,06/12/2016,07/22/2015 (PACHECO) COVID-19 VACCINE - EMERGENCY USE AUTHORIZATION, AD26,COV2S(PF) 0.5 ML IM SUSP 01/29/2021 (PNEUMOVAX 23)(50 YRS UP) PN EUMOCOCCAL POLYSACCHARIDE (PPV23) 0.5 ML, IM 01/11/2017,06/30/2010 (PREVNAR 13)(6 WKS UP) PNEUM OCOCCAL CONJUGATE (PCV13) 0.5 ML, IM 10/24/2014 (SHINGRIX)(50 YRS UP) ZOSTER VACCINE RECOMBINANT, 0.5 ML, IM 02/08/2018 (TDVAX)(7 YRS UP) TETANUS AN D DIPHTHERIA TOXOIDS, ADSORBED (2 LF OF TETANUS TOXOID AND 2 LF OF DIPHTHERIA TOXOID), 0.5ML (PF), IM 11/10/2006,01/26/2005,01/13/2002 INFLUENZA VACCINE HIGH DOSE QUADRIVALENT 65 YR UP PF IM 06/05/2024,08/25/2023,05/29/2021,05/07,05/04/2019,05/31/2017,05/29/2016 ,06/17/2015,06/11/2014 INFLUENZA VACCINE HIGH DOSE TRIVALENT SPLIT VIRUS, (65 YR UP), 0.5ML (PF), IM 07/25/2025,06/05/2024 INFLUENZA VACCINE QUADRIVALE NT ADJ 65 YR UP PF IM 08/06/2022 Influenza Seasonal Unspecifi ed Formulation IM 07/04/2022,07/21/2011,08/31/2000 Influenza Vaccine High Dose 65+ Yrs IM 0 05/21/2019,05/21/2019,05/31/2017,05/29,06/17/2015,06/11/2014 Influenza Vaccine Split 3+ Yrs IM 2012,06/13/2012,06/30/2010,07/15,07/19/2008 Influenza Vaccine Tri Adjuva nted 65+ PF IM 05/04/2019 Influenza Vaccine Tri Split 4+ Im 2012,06/13/2012,07/21/2011,06/30,07/15/2009,07/19/2008,08/31/2000 PNEUMOVAX (PPSV23) pneumococ raad polysaccharide 23-valent Vaccine 01/11/2017 PREVNAR (PCV13) pneumococcal 13-valent conjugate Vaccine 10/24/2014 Pneumococcal Polysaccharide Vacc 23-francisco IM SCHIP 01/11/2017,06/30/2010 Td(adult) Unspecified Formulation 06/12/2016,10/2014 Family History Medical History Relation Name Comments [...] on file Legal Sex Female 6:27 AM PRINTING MACHINE OPERATOR Gender Identity Not on file Sexual Orientation Not on file Last Filed Vital Signs Vital Sign Reading Time Taken Comments Blood Pressure 126/60 08/06/2025 8:09 AM PRINTING MACHINE OPERATOR Pulse 81 08/06/2025 8:09 AM PRINTING MACHINE OPERATOR Temperature 36 C (96.8 F) 08/06/2025 8:09 AM PRINTING MACHINE OPERATOR Respiratory Rate 20 07/17/2025 3:06 PM CDT Oxygen Saturation 92% 08/06/2025 8:09 AM PRINTING MACHINE OPERATOR Inhaled Oxygen Concentration - - Weight 98.1 kg (216 lb 4 oz) 08/06/2025 8:09 AM PRINTING MACHINE OPERATOR Height 157.5 cm (5' 2 ) 08/06/2025 8:09 AM PRINTING MACHINE OPERATOR s tated Body Mass Index 39.55 08/06/2025 8:09 AM PRINTING MACHINE OPERATOR Plan of Treatment Upcoming Encounters Date Type Department Care Team (Late st Contact Info) Description 10/10/2025 10:40 AM PRINTING MACHINE OPERATOR Procedure visit [facility] [place] [address] [place] [address] Davi Ferguson MD [address] [place] [address] 10/25/2025 1:40 PM PRINTING MACHINE OPERATOR Office Visit [facility] [address] [place] [phone] Adrienne March, DO [address] [place] [phone] 01/23/2026 11:20 AM CDT Office Visit [facility] [address] [place] [phone] Adrienne March, DO [address] [place] [phone] 04/22/2026 1:20 PM CDT Office Visit [facility] [address] [facility] [address] [place] [address] Cori Ochoa, PLANNING AND ANALYSIS MANAGER [address] [facility] [address] [place] [address] Health Maintenance Due Date Last Done Comments ZOSTER VACCINE (2 of 2) 04/05/2018 02/08/2018 OSTEOPOROSIS SCREENING 07/31/2020 5, 07/30/2015, 07/30/2015, Additional history exists RSV VACCINE (60+ or ) (1 - 1-dose 75+ series) 2022 COVID-19 Vaccine (2 - 2024-2 6 season) 2025 01/29/2021 DIABETES ANNUAL FOOT EXAM 06/05/20252023, 03/30/2023, 12/29/2021, Additional history exists DIABETES MICROALBUMIN ANNUAL SCREEN 10/23/2025 10/23/2024, 12/09/2023, 08/25/2023, Additional history exists DIABETES HBA1C Q 6 MONTHS 01/22/20262024, 03/29/2025, 10/05/2024, Additional history exists LDL CHOLESTEROL ANNUAL 07/25/2026 , 03/17/2024, 12/09/2023, Additional history exists DIABETES ANNUAL RETINAL EXAM 08/01/202608/2025, 03/30/2024, 06/04/2020, Additional history exists DTAP/TDAP/TD VACCINES (6 - T d or Tdap) 09/14/2034 09/14/2024, 06/12/2016, 06/12/2016, Additional history exists PNEUMOCOCCAL VACCINE 50+ YEARS Completed 0 01/11/2017, 01/11/2017, 01/11/2017, Additional history exists FIT-DNA Q 3 years Discontinued 05/17/2019 Colorectal Cancer Screening Discontinued FIT/FOBT Q 1 year Discontinued 03/31/2023, 08/01/2015 RADHA uACR (Auto Order) Completed 10/23/2024 , 12/09/2023, 08/25/2023, Additional history exists INFLUENZA VACCINE Completed 07/25/2025, , 06/05/2024, Additional history exists KHE eGFR (Auto Order) Completed 07/25/2025 , 06/20/2025, 05/15/2025, Additional history exists Medicare Advantage ([place]) Preventative Visit/Annual Wellness Visit Completed 07/25/2025, 05/05/2024, 04/26/2023, Additional history exists COLORECTAL SCREENING Discontinued Flex Sig/CT Colonography Q 5 years Discontinued Medical Devices Implanted Type Area Etl Consultant Device Identifier Shelf Expiration Date Model / Serial / Lot Cement Simplex Hvisc 6194-1-010 - [id number] Implanted:01/2020 by Marco A Lewis MD (Quantity not on file) Cement Left: Knee JAMSHID- [employer] [id number] 03/19/2021 6194-1-010 / / [id number] Cement Simplex Hvisc 6194-1-010 - [id number] Implanted:01/2020 by Marco A Lewis MD (Quantity not on file) Cement Left: Knee JAMSHID- [employer] [id number] 03/19/2021 6194-1-010 / / [id number] Hemostatic Surgifoam 1gm 1977 - [id number] Implanted:Qty : 1 on 06/21/2020 by Jan Hoffman MD Hemostatic N/A: Back J[employer]J- [employer] [id number] 10/26/20211977 / / [id number] Comp Fem Attune Cr Cmnt Sz4 1504-00-104 - [id number] Implanted:Qty : 1 on 11/23/2019 by Marco A Lewis MD Knee Left: Knee J[employer]J- [employer] [id number] 09/19/2029 [id number] / / [id number] Comp Tib Attune Fb Cmnt Sz5 1506-70-005 - [id number] Implanted:Qty : 1 on 11/23/2019 by Marco A Lewis MD Knee Left: Knee J[employer]- [employer] [id number] 08/19/2029 [id number] / / [id number] Insert Attune Fb Cr Sz4 6mm 1516-20-406 - [id number] Implanted:Qty : 1 on 11/23/2019 by Marco A Lewis MD Knee Left: Knee J[employer]- [employer] [id number] 03/19/2023 [id number] / / [id number] Vince Solera Crv Ti 5.5x30mm [id number] - [id number] Implanted:Qty : 2 on 06/21/2020 by Jan Hoffman MD Vince N/A: Back [employer]- SOFAMOR DANEK 06/21/2021 [id number] / / [id number] Screw Cdh 6.5x35mm 5.5/6.0 Mas Cc [id number] - [id number] Implanted:Qty : 2 on 06/21/2020 by Jna Hoffman MD Screw N/A: Back [employer] 06/21/2021 [id number] / / [id number] Screw Cdh 6.5x45mm 5.5/6.0 Mas Cc [id number] - [id number] Implanted:Qty : 2 on 06/21/2020 by Jan Hoffman MD Screw N/A: Back [employer] 06/21/2021 [id number] / / [id number] Screw Solera 5.5/6.0 Breakoff [id number] - [id number] Implanted:Qty : 4 on 06/21/2020 by Jan Hoffman MD Screw N/A: Back [employer]- [employer] 06/21/2021 [id number] / / [id number] Putty Dbx Dbm 1ml 53947 - [id number] Implanted:Qty : 1 on 06/21/2020 by Jan Hoffman MD Tissue N/A: Back MUSCULOSKELETAL TRANSPLANT FOU 07/21/2021 [id number] / [id number] Readigraft Canc Chips 15ml Can15 14bp - [id number] Implanted:Qty : 1 on 06/21/2020 by Jan Hoffman MD Tissue N/A: Back LIFENET 08/07/2024 CAN15 14BP / / [id number] Procedures Procedure Name Priority Date/Time Associated Diagnosis Comments URINE CULTURE Routine 08/06/2025 8:43 AM PRINTING MACHINE OPERATOR Recurrent UTI POC URINALYSIS DIPSTICK AUTOMATED Routine 08/06/2025 8:05 AM PRINTING MACHINE OPERATOR Recurrent UTI HM DIABETES EYE EXAM Routine 08/01/2025 10:28 AM PRINTING MACHINE OPERATOR URINE CULTURE Routine 07/25/2025 11:26 AM PRINTING MACHINE OPERATOR Recurrent UTI VITAMIN B12 LEVEL Routine 07/25/2025 11: 24 AM PRINTING MACHINE OPERATOR Need for influenza vaccination Type 2 diabetes mellitus with diabetic polyneuropathy, with long-term current use of insulin ([facility]/HCC) Type 2 diabetes mellitus with stage 3b chronic kidney disease, without long-term current use of insulin (CMS/HCC) MAGNESIUM LEVEL Routine 07/25/2025 11:24 AM PRINTING MACHINE OPERATOR Need for influenza vaccination Type 2 diabetes mellitus with diabetic polyneuropathy, with long-term current use of insulin (CMS/[facility]) Type 2 diabetes mellitus with stage 3b chronic kidney disease, without long-term current use of insulin (CMS/HCC) HEMOGLOBIN A1C Routine 07/25/2025 11:24 AM PRINTING MACHINE OPERATOR Need for influenza vaccination Type 2 diabetes mellitus with diabetic polyneuropathy, with long-term current use of insulin (CMS/HCC) Type 2 diabetes mellitus with stage 3b chronic kidney disease, without long-term current use of insulin (CMS/HCC) LIPID PANEL Routine 07/25/2025 11:24 AM PRINTING MACHINE OPERATOR Need for influenza vaccination Type 2 diabetes mellitus with diabetic polyneuropathy, with long-term current use of insulin (CMS/HCC) Type 2 diabetes mellitus with stage 3b chronic kidney disease, without long-term current use of insulin (CMS/HCC) TSH Routine 07/25/2025 11:24 AM PRINTING MACHINE OPERATOR Need for influenza vaccination Type 2 diabetes mellitus with diabetic polyneuropathy, with long-term current use of insulin (CMS/HCC) Type 2 diabetes mellitus with stage 3b chronic kidney disease, without long-term current use of insulin (CMS/HCC) COMPREHENSIVE METABOLIC PANEL Routine 07/25/2025 11:24 AM PRINTING MACHINE OPERATOR Need for influenza vaccination Type 2 diabetes mellitus with diabetic polyneuropathy, with long-term current use of insulin ([facility]) Type 2 diabetes mellitus with stage 3b chronic kidney disease, without long-term current use of insulin ([facility]) CBC WITH DIFFERENTIAL Routine 07/25/2025 11:24 AM PRINTING MACHINE OPERATOR Need for influenza vaccination Type 2 diabetes mellitus with diabetic polyneuropathy, with long-term current use of insulin ([facility]) Type 2 diabetes mellitus with stage 3b chronic kidney disease, without long-term current use of insulin ([facility]) POC URINALYSIS DIPSTICK NON AUTOMATED Routine 07/25/2025 10:00 AM PRINTING MACHINE OPERATOR Recurrent UTI POC URINALYSIS DIPSTICK NON AUTOMATED Routine 07/17/2025 3:40 PM CDT Vaginal pain XR ABDOMEN 1 VW Stat 07/10/2025 4:02 PM CDT Slow transit constipation XR CHEST PA AND LATERAL 2 VW Routine 07/02/2025 3:56 PM CDT Acute cough URINE CULTURE Routine 06/22/2025 5:12 PM CDT Urinary pain Suspected UTI POC URINALYSIS DIPSTICK AUTOMATED Routine 06/21/2025 10:50 AM CDT Urinary pain COMPREHENSIVE METABOLIC PANEL Routine 06/20/2025 3:57 PM CDT URINE CULTURE Routine 06/07/2025 2:41 PM CDT Urinary pain POC URINALYSIS DIPSTICK AUTOMATED Routine 06/07/2025 12:50 PM CDT Urinary pain MICROALBUMIN/CREATINI NE RATIO, RANDOM UR Routine 10/23/2024 5:02 PM PRINTING MACHINE OPERATOR OCCULT BLOOD IMMUNOASSAY, COLORECTAL SCREEN Routine 03/31/2023 10:41 AM CDT HM DIABETES FOOT EXAM 12/23/2020 12:00 AM CDT COLON CANCER SCREEN, STOOL DNA Routine 05/17/2019 4:15 PM CDT XR DEXA BONE DENSITY AXIAL 1 OR MORE SITES Routine 07/30/2015 1:58 PM PRINTING MACHINE OPERATOR Postmenopausal atrophic vaginitis from Last 3 Months or Most Recently Relevant to Health Maintenance Results * URINE CULTURE (08/06/2025 8:43 AM PRINTING MACHINE OPERATOR) Only the most recent of4 resultswithin the time period is included. URINE CULTURE SEE NOTE [facility] Comment: CULTURE, URINE, ROUTINE Micro Number: [id number] Test Status: Final Specimen Source: Urine Specimen Quality: Adequate Result: Less than 10,000 CFU/mL of single Gram positive organism isolated. No further testing will be performed. If clinically indicated, recollection using a method to minimize contamination, with prompt transfer to Urine Culture Transport Tube, is recommended. Test Performed at: [facility] [address] [place] [facility] [place] [address] Isabel Colby MD Urine URINE SPECIMEN OBTAINED BY CLEAN CATCH PROCEDURE / Unknown 08/06/2025 8:43 AM PRINTING MACHINE OPERATOR 08/07/2025 7:08 AM PRINTING MACHINE OPERATOR December [facility] MICROBIOLOGY - GENERAL ORDERABLE S Final Result [facility] [phone] [facility] [place] [address] [facility] [place] [address] * (ABNORMAL) POC URINALYSIS DIPSTICK AUTOMATED (08/06/2025 8:05 AM PRINTING MACHINE OPERATOR) Only the most recent of3 resultswithin the time period is included. COLOR UA POC Yellow Pale to Dark Yellow [facility] CLARITY UA POC Clear Clear, Other [facility] GLUCOSE UA POC Negative Negative, Normal [facility] BILIRUBIN UA POC Negative Negative [facility] UA POC Negative Negative [facility] SPECIFIC GRAVITY UA POC 1.015 1.000 - 1.030 [facility] BLOOD UA POC Trace(A) Negative [facility] Mirna [facility] PH UA POC 7.0 5.0 - 8.0 [facility] CLIN IC [facility] PROTEIN UA POC Negative Negative [facility] UROBILINOGEN UA POC 0.2 <2.0 mg/dL [facility] NITRITE UA POC Negative Negative [facility] LEUKOCYTE ESTERASE UA POC Negative Negative [facility] KIT LOT NUMBER POC [phone] [facility] KIT EXP DATE POC 03/19/2026 [facility] Urine 08/06/2025 8:05 AM PRINTING MACHINE OPERATOR December PLANNING AND ANALYSIS MANAGER POINT OF CARE TESTING Final Resu lt Performing Organization Address City/State/[facility] Co de Phone Number [facility] CLIA# [id number] [address] [place] [address] * (ABNORMAL) DIABETES EYE EXAM (08/01/2025 10:28 AM PRINTING MACHINE OPERATOR) Abstract Provider HEALTH MAINTENANCE Edited Resu lt - Final * (ABNORMAL) CBC WITH DIFFERENTIAL (07/25/2025 11:24 AM PRINTING MACHINE OPERATOR) WBC 8.6 3.8 - 10.8 Thousand/u L [facility] RBC 3.95 3.80 - 5.10 Million/uL [facility] HEMOGLOBIN 12.1 11.7 - 15.5 g/dL [facility] HEMATOCRIT 38.1 35.0 - 45.0 % [facility] MCV 96.5 80.0 - 100.0 fL [facility] MCH 30.6 27.0 - 33.0 pg [facility] MCHC 31.8(L) 32.0 - 36.0 g/dL [facility] Comment: For adults, a slight decrease in the calculated MCHC value (in the range of 30 to 32 g/dL) is most likely not clinically significant; however, it should be interpreted with caution in correlation with other red cell parameters and the patient's clinical condition. RDW 13.1 11.0 - 15.0 % [facility] PLATELETS 319 140 - 400 Thousand/u L [facility] MPV 8.7 7.5 - 12.5 fL [facility] NEUTROPHIL ABSOLUTE 6,209 1,500 - 7,800 cells/uL [facility] LYMPHOCYTE ABSOLUTE 1,281 850 - 3,900 cells/uL [facility] MONOCYTE ABSOLUTE 817 200 - 950 cells/uL [facility] EOSINOPHIL ABSOLUTE 267 15 - 500 cells/uL [facility] BASOPHILS ABSOLUTE 26 0 - 200 cells/uL [facility] NEUTROPHIL 72.2 % [facility] LYMPHOCYTES 14.9 % [facility] MONOCYTE 9.5 % [facility] EOSINOPHILS 3.1 % [facility] BASOPHILS 0.3 % [facility] Comment: Test Performed at: [facility] [address] [place] [address] Isabel Colby MD Blood 07/25/2025 11:2 4 AM PRINTING MACHINE OPERATOR 07/25/2025 11:25 AM PRINTING MACHINE OPERATOR Adrienne March DO HEMATOLOGY ORDERABLES Final Result [facility] [phone] [facility] [address] [place] [address] * TSH (07/25/2025 11:24 AM PRINTING MACHINE OPERATOR) TSH 3.09 0.40 - 4.50 mIU/L [facility] Comment: Test Performed at: [facility] [address] [place] [address] Isabel Colby MD Blood 07/25/2025 11:2 4 AM PRINTING MACHINE OPERATOR 07/25/2025 11:25 AM PRINTING MACHINE OPERATOR Adrienne Yanni Anca DO CHEMISTRY ORDERABLES Final Result Performing Organization Address [facility] Co de Phone Number [facility] [phone] [facility] [address] [place] [address] * (ABNORMAL) MAGNESIUM LEVEL (07/25/2025 11:24 AM PRINTING MACHINE OPERATOR) Pathologist [facility] MAGNESIUM 2.6(H) 1.5 - 2.5 mg/dL [facility] Comment: Test Performed at: [facility] [address] [place] [address] Isabel Colby MD Blood 07/25/2025 11:2 4 AM PRINTING MACHINE OPERATOR 07/25/2025 11:25 AM PRINTING MACHINE OPERATOR Adrienne L Anca CHEMISTRY ORDERABLES Final Result Performing Organization Address [facility] de Phone Number [facility] [phone] [facility] [address] [place] [phone] * (ABNORMAL) HEMOGLOBIN A1C (07/25/2025 11:24 AM PRINTING MACHINE OPERATOR) HEMOGLOBIN A1C 7.3(H) <5.7 % [facility] Comment: For someone without known diabetes, [...] diabetes for children. ESTIMATED AVERAGE GLUCOSE (MG/DL) 163 mg/dL [facility] ESTIMATED AVERAGE GLUCOSE (MMOL/L) 9.0 mmol/L [facility] Comment: Test Performed at: [facility] [address] [place] [phone] Isabel Colby MD Blood 07/25/2025 11:2 4 AM PRINTING MACHINE OPERATOR 07/25/2025 11:25 AM PRINTING MACHINE OPERATOR Adrienne Yanni HernandezAnca DO CHEMISTRY ORDERABLES Final Result Performing Organization Address [facility] de Phone Number [facility] [phone] [facility] [address] [facility] [place] [address] * VITAMIN B12 LEVEL (07/25/2025 11:24 AM PRINTING MACHINE OPERATOR) VITAMIN B12 258 200 - 1100 pg/mL [facility] Comment: Please Note: Although the reference range for vitamin B12 is 200-1100 pg/mL, it has been reported that between 5 and 10% of patients with values between 200 and 400 pg/mL may experience neuropsychiatric and hematologic abnormalities due to occult B12 deficiency; less than 1% of patients with values above 400 pg/mL will have symptoms. Test Performed at: [facility] [address] [place] [phone] Isabel Colby MD Blood 07/25/2025 11:2 4 AM PRINTING MACHINE OPERATOR 07/25/2025 11:25 AM PRINTING MACHINE OPERATOR Adrienne March DO CHEMISTRY ORDERABLES Final Result Performing Organization Address [facility] de Phone Number [facility] [phone] [facility] [address] [facility] [place] [address] * (ABNORMAL) LIPID PANEL (07/25/2025 11:24 AM PRINTING MACHINE OPERATOR) CHOLESTEROL 232(H) <200 mg/dL [facility] HDL 70 > OR = 50 mg/dL [facility] TRIGLYCERIDE 230(H) <150 mg/dL [facility] Comment: If a non-fasting specimen was collected, consider repeat triglyceride testing on a fasting specimen if clinically indicated. Gissel et al. J. of Clin. Lipidol. 2015;9:129-169. LDL CALCULATED 125(H) mg/dL (calc) [facility] Comment: Reference range: <100 Desirable range <100 mg/dL for primary prevention; <70 mg/dL for patients with CHD or diabetic patients with > or = 2 CHD risk factors. LDL-C is now calculated using the Vimal-Patel calculation, which is a validated novel method providing better accuracy than the Friedewald equation in the estimation of LDL-C. Vimal SS et al. NATALIIA. 2013;310(19): 7041-2784 (http://education.PS DEPT./faq/UTM524) CHOL/HDL RATIO 3.3 <5.0 (calc) [facility] NON-HDL CHOLESTEROL 162(H) <130 mg/dL (calc) [facility] Comment: For patients with diabetes plus 1 major ASCVD risk factor, treating to a non-HDL-C goal of <100 mg/dL (LDL-C of <70 mg/dL) is considered a therapeutic option. Test Performed at: [facility] [address] [place] [address] Isabel Colby MD Blood 07/25/2025 11:2 4 AM PRINTING MACHINE OPERATOR 07/25/2025 11:25 AM PRINTING MACHINE OPERATOR Adrienne March DO CHEMISTRY ORDERABLES Final Result [facility] [phone] [facility] [address] [place] [address] * (ABNORMAL) COMPREHENSIVE METABOLIC PANEL (07/25/2025 11:24 AM PRINTING MACHINE OPERATOR) Only the most recent of2 resultswithin the time period is included. GLUCOSE 396(H) 65 - 99 mg/dL [facility] Comment: Verified by repeat analysis. Fasting reference interval For someone without known diabetes, a glucose value >125 mg/dL indicates that they may have diabetes and this should be confirmed with a follow-up test. BUN 20 7 - 25 mg/dL [facility] CREATININE 1.24(H) 0.60 - 1.00 mg/dL [facility] GFR 45(L) > OR = 60 mL/min/1.7 3m2 [facility] BUN/CREAT RATIO 16 6 - 22 (calc) [facility] SODIUM 137 135 - 146 mmol/L [facility] POTASSIUM 4.2 3.5 - 5.3 mmol/L [facility] CHLORIDE 97(L) 98 - 110 mmol/L [facility] CO2 30 20 - 32 mmol/L [facility] CALCIUM 8.2(L) 8.6 - 10.4 mg/dL [facility] TOTAL PROTEIN 7.1 6.1 - 8.1 g/dL [facility] ALBUMIN 3.6 3.6 - 5.1 g/dL [facility] GLOBULIN 3.5 1.9 - 3.7 g/dL (calc) [facility] ALBUMIN/GLOBULIN RATIO 1.0 1.0 - 2.5 (calc) [facility] BILIRUBIN TOTAL 0.2 0.2 - 1.2 mg/dL [facility] ALKALINE PHOSPHATASE 117 37 - 153 U/L [facility] AST 16 10 - 35 U/L [facility] ALT 13 6 - 29 U/L [facility] Comment: Test Performed at: [facility] [address] [place] [address] Isabel Colby MD Blood 07/25/2025 11:2 4 AM PRINTING MACHINE OPERATOR 07/25/2025 11:25 AM PRINTING MACHINE OPERATOR us Adrienne March DO CHEMISTRY ORDERABLES Final Result [facility] [phone] [facility] [address] [place] [address] * (ABNORMAL) POC URINALYSIS DIPSTICK NON AUTOMATED (07/25/2025 10:00 AM PRINTING MACHINE OPERATOR) Only the most recent of2 resultswithin the time period is included. COLOR UA POC Yellow Pale to Dark Yellow [facility] CLARITY UA POC Clear Clear, Other [facility] GLUCOSE UA POC 2+(A) Negative, Normal [facility] BILIRUBIN UA POC Negative Negative [facility] UA POC Negative Negative [facility] SPECIFIC GRAVITY UA POC 1.020 1.000 - 1.030 [facility] BLOOD UA POC Negative Negative [facility] C [facility]IC [facility] PH UA POC 6.5 5.0 - 8.0 [facility] CLIN IC [facility] PROTEIN UA POC 1+(A) Negative [facility] UROBILINOGEN UA POC 0.2 <2.0 mg/dL [facility] NITRITE UA POC Negative Negative [facility] LEUKOCYTE ESTERASE UA POC Negative Negative [facility] KIT LOT NUMBER POC 501,040 [facility] KIT EXP DATE POC 03/19/2026 [facility] Urine 07/25/2025 10:0 0 AM PRINTING MACHINE OPERATOR Adrienne March DO POINT OF CARE TESTING Final Result Performing Organization Address City/State/[facility] Co de Phone Number [facility] CLIA# [id number] [address] [place] [address] * XR ABDOMEN 1 VW (07/10/2025 4:02 PM CDT) Anatomical Region Laterality Modality Abdomen Computed Radiogr aphy 07/10/2025 4:02 PM CDT Impressions 07/10/2025 4:11 PM CDT IMPRESSION: Please see below. Exam: XR ABDOMEN 1 VW Date/Time of Exam: 07/10/2025 4:02 PM Reason For Exam: See Diagnosis. Diagnosis: Slow transit constipation. Findings: Comparison 06/27/2018. The lung bases are grossly clear. The heart is probably mildly enlarged. Surgical clips are again noted over the right upper quadrant. The bowel gas pattern is unremarkable. The amount of stool in the colon is not abnormally large in amount. The organ outlines are not enlarged. No abnormal calcifications are noted. No acute bony abnormality is suspected. There are postsurgical changes of posterior fusion at L5-S1. There is an incompletely visualized intramedullary vince in the right femur. IMPRESSION: Nonspecific abdomen. Narrative Procedure Note Danyelle Joshi MD - 07/10/2025 IMPRESSION: Please see below. Exam: XR ABDOMEN 1 VW Date/Time of Exam: 07/10/2025 4:02 PM Reason For Exam: See Diagnosis. Diagnosis: Slow transit constipation. Findings: Comparison 06/27/2018. The lung bases are grossly clear. The heart is probably mildly enlarged. Surgical clips are again noted over the right upper quadrant. The bowel gas pattern is unremarkable. The amount of stool in the colon is not abnormally large in amount. The organ outlines are not enlarged. No abnormal calcifications are noted. No acute bony abnormality is suspected. There are postsurgical changes of posterior fusion at L5-S1. There is an incompletely visualized intramedullary vince in the right femur. IMPRESSION: Nonspecific abdomen. Jessica Torres NP DIAGNOSTIC IMAGING ORDERABLES Final Result * XR CHEST PA AND LATERAL 2 VW (07/02/2025 3:56 PM CDT) Anatomical Region Laterality Modality Chest Computed Radiogr aphy 07/02/2025 3:57 PM CDT Impressions 07/02/2025 5:12 PM CDT IMPRESSION: Similar cardiomegaly and suspected prominence of the central pulmonary arteries which could reflect underlying chronic pulmonary arterial hypertension. No new superimposed acute radiographic abnormalities. Narrative 07/02/2025 5:12 PM CDT EXAM: XR CHEST PA AND LATERAL 2 VW DATE/TIME OF EXAM: 07/02/2025 3:56 PM REASON FOR EXAM: See Diagnosis DIAGNOSIS: Acute cough COMPARISON: 11/03/2024 FINDINGS: - Lines/tubes: None. - Cardiomediastinal: Cardiac size is mildly enlarged with prominence of the right and left hilum, which could be secondary to enlargement of the central pulmonary arteries. - Lungs/pleura: Within the limitations of body habitus and low lung volumes, the lungs appear grossly clear. Hemidiaphragms are well visualized; no appreciable pleural effusion or pneumothorax. - Bones and soft tissues: No acute abnormalities. - Additional comments: None. Procedure Note Abhay Skinner MD - 07/02/2025 EXAM: XR CHEST PA AND LATERAL 2 VW DATE/TIME OF EXAM: 07/02/2025 3:56 PM REASON FOR EXAM: See Diagnosis DIAGNOSIS: Acute cough COMPARISON: 11/03/2024 FINDINGS: - Lines/tubes: None. - Cardiomediastinal: Cardiac size is mildly enlarged with prominence of the right and left hilum, which could be secondary to enlargement of the central pulmonary arteries. - Lungs/pleura: Within the limitations of body habitus and low lung volumes, the lungs appear grossly clear. Hemidiaphragms are well visualized; no appreciable pleural effusion or pneumothorax. - Bones and soft tissues: No acute abnormalities. - Additional comments: None. IMPRESSION: Similar cardiomegaly and suspected prominence of the central pulmonary arteries which could reflect underlying chronic pulmonary arterial hypertension. No new superimposed acute radiographic abnormalities. Whit Freeman [facility] DIAGNOSTIC IMAGING ORDERAB LES Final Result * (ABNORMAL) MICROALBUMIN/CREATININE RATIO, RANDOM UR (10/23/2024 5:02 PM PRINTING MACHINE OPERATOR) Creatinine, Urine 60 20 - 275 mg/dL [...] within a diagnostic category. Test Performed at: [facility] [address] [address] Isabel Colby MD Urine URINE SPECIMEN OBTAINED BY CLEAN CATCH PROCEDURE / Unknown 10/23/2024 5:02 PM PRINTING MACHINE OPERATOR 10/24/2024 2:46 AM PRINTING MACHINE OPERATOR December Katie PLANNING AND ANALYSIS MANAGER URINE ORDERABLES Final Result [facility] [phone] [facility] [address] [place] [address] * OCCULT BLOOD IMMUNOASSAY, COLORECTAL SCREEN (03/31/2023 10:41 AM CDT) Stool STOOL SPECIMEN / Unknown Abstract Provider BODY FLUIDS AND STOOLS Final R esult * HM DIABETES FOOT EXAM (12/23/2020 12:00 AM CDT) Adrienne March DO HEALTH MAINTENANCE Edited R esult - Final * COLON CANCER SCREEN, STOOL DNA (05/17/2019 4:15 PM CDT) COLOGUARD RESULT Negative Not Applicable 05/24/2019 3:08 PM CDT [facility] Comment: A negative result indicates a low [...] (Linette Emerson al, N Engl J Med 2014;370(14):7244-8897) COLOGUARD RE-SCREENING RECOMMENDATION: Periodic routine colorectal cancer screening is an important part of preventive healthcare for asymptomatic persons at average risk for colorectal cancer. Following a negative Cologuard result, the [place] [employer] Society and U.S. Multi-Society Task Force screening guidelines recommend a Cologuard re-screening interval of 3 years. References: [place] [employer] (ACS). Colorectal cancer prevention and early detection. [place], [place]: [place] [employer]; [updated 2015Jan 11]. https://www.cancer.org/cancer/emzrn-aouiyq-gllaes/edebzxkqs-fjecwebvj-lhbnskq/ac s-rec ommendations.html. Accessed May 20, 2018; Héctor DK, Marleny JURADO, Cruzito FitchK, Colorectal Cancer Screening: Recommendations for Physicians and Patients from the U.S. Multi-Society Task Force on Colorectal Cancer Screening, Am J Gastroenterology 2017; 112:0690-1066. Test Type: Composite algorithmic analysis of stool [...] can be accessed at the following location: [email or web address]/results. Additional description of the Cologuard test process, warnings and precautions can be found at [email or web address]. Rx Only. Stool STOOL SPECIMEN / Unknown 05/17/2019 4:15 PM CDT 05/18/2019 11:04 PM CDT Adrienne March DO BODY FLUIDS AND STOOLS Rosetta terrazas Result [facility] CLIA # [id number] [address] , [address] [place] [address] * XR DEXA BONE DENSITY AXIAL 1 OR MORE SITES (07/30/2015 1:58 PM PRINTING MACHINE OPERATOR) Anatomical Region Laterality Modality Other Narrative 07/31/2015 8:08 AM PRINTING MACHINE OPERATOR PROCEDURE DEXA BONE DENSITY, 30 July 2015 [...] density, with minimal interval change us Deanne [facility] DIAGNOSTIC IMAGING ORDERABLES Final Result from Last 3 Months or Most Recently Relevant to Health Maintenance Insurance [place]ICAID [place] [facility] DUAL ADVANTAGE O [facility] * Guarantor: [employer] Account Type Relation to Patient Date of Phone Billing Address Personal/Family [address] [place] [id number] RX WE[employer] PLANS (INTERNAL) [facility] Medicare Part D Advance Directives For more information, please contact: [phone] * Full Code (Latest Code Status on File) Date Activated Date Inactivated Comments 07/20/2024 3:46 AM 07/24/2024 6:49 PM Care Teams Talcer Relationship Specialty Start Date End Date Adrienne March DO [address] [place] [id number] PCP - General Family Practice 06/30/10
--- OUTSIDE RECORDS SUMMARY | 2025-09-01 18:23 | XMS_ITS | Encounter Summary ---
Author Organization [facility] Address [address] Segaln: [place] [address] Care Team Providers Care Tool Mechanic Name Role Phone Adrienne March DO Primary Care Provider [phone] Encounter Details Date Type Department Care Team (Late st Contact Info) Description 02/18/2001 Outpatient Historical Umang Urrutia MD [address] [place] [address] Social History Tobacco Use Types Packs/Day Years Used Date Smoking Tobacco: Never Assessed Comments Unknown Sex and Gender Information Value Date Recorded Sex Assigned at Not on file Legal Sex Female 3:34 AM TELECINE OPERATOR Gender Identity Not on file Sexual Orientation Not on file documented as of this encounter Plan of Treatment Not on file documented as of this encounter Visit Diagnoses Not on filedocumented in this encounter Care Teams Tool Mechanic Relationship Specialty Start Date End Date Adrienne March DO [address] [place] [address] PCP - General Family Practice 06/30/10 documented as of this encounter
--- OUTSIDE RECORDS SUMMARY | 2025-09-01 18:23 | XMS_ITS | Encounter Summary ---
Author Organization [facility] Address [address] [place] [address] Care Team Providers Care Field Crop Ii Farmworker Name Role Phone Adrienne March DO Primary Care Provider [phone] Encounter Details Date Type Department Care Team (Late st Contact Info) Description 02/05/1999 Outpatient Historical [facility] Umang Urrutia MD [address] [place] [phone] Rotator cuff rupture (Primary Dx); Adhesive capsulit shlder; Other chest pain; Unspecified adjustment reaction Social History Tobacco Use Types Packs/Day Years Used Date Smoking Tobacco: Never Assessed Comments Unknown Sex and Gender Information Value Date Recorded Sex Assigned at Not on file Legal Sex Female 3:34 AM MAILING MACHINE HELPER Gender Identity Not on file Sexual Orientation Not on file documented as of this encounter Plan of Treatment Not on file documented as of this encounter Visit Diagnoses Diagnosis Rotator cuff rupture- Primary Rotator cuff (capsule) sprain Adhesive capsulit shlder Adhesive capsulitis of shoulder Other chest pain Unspecified adjustment reaction documented in this encounter Care Teams Field Crop Ii Farmworker Relationship Specialty Start Date End Date Adrienne March DO [address] [place] [address] PCP - General Family Practice 06/30/10 documented as of this encounter
--- OUTSIDE RECORDS SUMMARY | 2025-09-01 18:23 | XMS_ITS | Encounter Summary ---
Author Organization [facility] Address [address] [place] [address] Care Team Providers Care Chicken Sexer Name Role Phone Adrienne March Primary Care Provider Encounter Details Date Type Department Care Team (Late st Contact Info) Description 10/20/2017 Ancillary Orders [facility] [address] [place] [address] Deanne Banks, [facility] [address], [place] [phone] Fall (on)(from) incline, initial encounter; Acute bilateral [...] on file Legal Sex Female 3:34 AM VOCATIONAL COUNSELOR Gender Identity Not on file Sexual [...] 2 OR 3 VW (10/20/2017 5:18 PM VOCATIONAL COUNSELOR) Anatomical Region Laterality Modality Spine Computed Radiogr aphy 10/20/2017 5:19 PM VOCATIONAL COUNSELOR Impressions 10/21/2017 10:00 AM VOCATIONAL COUNSELOR IMPRESSION: Please see below. Exam: XR LUMBAR [...] age-indeterminate L1 compression deformity. us Deanne Banks [facility] ORDERABLES Final Result documented in this encounter Visit Diagnoses Diagnosis Fall (on)(from) incline, initial encounter Acute bilateral low back pain without sciatica Fall (on)(from) incline, initial encounter Acute bilateral low back pain without sciatica documented in this encounter Additional Health Concerns Assessment Noted Time PHQ-9 Depression Total Score: 3 06/11/20 14 9:00 AM CDT documented as of this encounter Care Teams Chicken Sexer Relationship Specialty Start Date End Date Adrienne March DO [address] [place] [address] PCP - General Family Practice 06/30/10 documented as of this encounter
--- OUTSIDE RECORDS SUMMARY | 2025-09-01 18:24 | XMS_ITS | Encounter Summary ---
Author Organization [facility] Address [address] [place] [address] Care Team Providers Care Guest Services Manager Name Role Phone Adrienne March DO Primary Care Provider Encounter Details Date Type Department Care Team (Latest Contact Info) Description 09/24/1997 Outpatient Historical [facility] Umang Urrutia MD [address] [place] [address] Other chronic nonalcoholic liver disease (Primary Dx); Other nonspecific abnormal serum enzyme levels; Sprain of neck; Enthesopathy of ankle and tarsus, unspecified Social History Tobacco Use Types Packs/Day Years Used Date Smoking Tobacco: Never Assessed Comments Unknown Sex and Gender Information Value Date Recorded Sex Assigned at Not on file Legal Sex Female 3:34 AM DIRECTOR OF ASSESSING Gender Identity Not on file Sexual Orientation Not on file documented as of this encounter Plan of Treatment Not on file documented as of this encounter Visit Diagnoses Diagnosis Other chronic nonalcoholic liver disease- Primary Other nonspecific abnormal serum enzyme levels Sprain of neck Neck sprain and strain Enthesopathy of ankle and tarsus, unspecified documented in this encounter Care Teams Guest Services Manager Relationship Specialty Start Date End Date Adrienne March DO [address] [place] [address] PCP - General Family Practice 06/30/10 documented as of this encounter
--- OUTSIDE RECORDS SUMMARY | 2025-09-01 18:24 | XMS_ITS | Encounter Summary ---
Author Organization [facility] Address [address] [place] [address] Care Team Providers Care Hydrometallurgical Engineer Name Role Phone Adrienne March DO Primary Care Provider Encounter Details Date Type Department Care Team (Late st Contact Info) Description 07/09/1998 Outpatient Historical [facility] Umang Urrutia MD [address] [place] [address] Need vaccination-viral disease (Primary Dx) Social History Tobacco Use Types Packs/Day Years Used Date Smoking Tobacco: Never Assessed Comments Unknown Sex and Gender Information Value Date Recorded Sex Assigned at Not on file Legal Sex Female 3:34 AM MEAT PASSER Gender Identity Not on file Sexual Orientation Not on file documented as of this encounter Plan of Treatment Not on file documented as of this encounter Visit Diagnoses Diagnosis Need vaccination-viral disease- Primary Need for prophylactic vaccination and inoculation against other viral diseases documented in this encounter Care Teams Hydrometallurgical Engineer Relationship Specialty Start Date End Date Adrienne March DO [address] [place] [address] PCP - General Family Practice 06/30/10 documented as of this encounter
--- NOTE | 2025-09-01 18:46 | CTR_ITS ---
PROCEDURE INFORMATION: Exam: CT Head Without Contrast Exam date and time: 09/01/2025 7:19 PM Age: 79 years old Clinical indication: C/O dizziness; Additional info: Dizzy TECHNIQUE: Imaging protocol: Computed tomography of the head without contrast. Radiation optimization: All CT scans at this facility use at least one of these dose optimization techniques: automated exposure control; mA and/or kV adjustment per patient size (includes targeted exams where dose is matched to clinical indication); or iterative reconstruction. COMPARISON: CT head wo con* [id number] 07/08/2024 13:50 RADIATION DOSE METRICS: Total DLP (mGy-cm): 1106.08 FINDINGS: Brain: Mild to moderate patchy periventricular and deep white matter decreased density seen in both cerebral hemispheres. Punctate basal ganglia calcifications are noted. This is in the range of normal. Midline is intact. Beam hardening artifact obscures resolution through the posterior fossa structures. No hemorrhage. Unremarkable white matter. No mass effect. Cerebral ventricles: Ventricles demonstrate normal size shape and configuration and are felt to be in proportion to the degree of widening of the sulci, sylvian fissures and basilar cisterns. Paranasal sinuses: Visualized sinuses are unremarkable. No fluid levels. Mastoid air cells: Visualized mastoid air cells are well aerated. Orbital cavities: Bilateral cataract surgery. Bones: Mild hyperostosis frontalis interna is noted and of normal. No acute fracture. Soft tissues: Unremarkable. CT/CT head wo con* [id number] IMPRESSION: 1. No acute intracranial head CT findings identified. 2. Atrophy/involutional changes of aging with components of chronic small-vessel disease.
--- NOTE | 2025-09-01 18:46 | XRR_ITS ---
PROCEDURE INFORMATION: Exam: XR Chest Exam date and time: 09/01/2025 6:51 PM Age: 79 years old Clinical indication: Shortness of breath; Additional info: SOB; Dizzy TECHNIQUE: Imaging protocol: Radiologic exam of the chest. Views: 1 view. COMPARISON: CR XR chest 1V portable [id number] 09/07/2025 16:44 FINDINGS: Lungs: Prominence of the hilar structures similar to earlier films as well as a CT from 09/14/2021. No consolidation. Pleural spaces: Unremarkable. No pleural effusion. No pneumothorax. Heart/Mediastinum: Moderate cardiomegaly. Cardiomediastinal silhouette is otherwise relatively unremarkable. Bones/joints: Plate and screws are seen over the C5 through C7 levels. XR/XR chest 1V portable [id number] IMPRESSION: 1. No acute portable chest findings. 2. Moderate cardiomegaly. 3. Bilateral hilar prominence consistent with previously noted hilar adenopathy on a CT 2020 question sarcoidosis but further correlation follow-up suggested.
--- NOTE | 2025-09-01 18:48 | ECG_ITS ---
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 Measurements Intervals Walton Rate: 64 P: 64 MA: 215 QRS: 261 QRSD: 148 T: 1 QT: 445 QTc: 461 Interpretive Statements SINUS RHYTHM WITH FIRST DEGREE AV BLOCK WITH OCCASIONAL SUPRAVENTRICULAR PREMATURE COMPLEXES RIGHT AXIS DEVIATION [QRS AXIS > 100] RIGHT BUNDLE BRANCH BLOCK [120+ ms QRS DURATION, UPRIGHT V1, 40+ ms S IN I/aVL/V4/V5/V6] Compared to ECG 07/09/2025 14:19:55 First degree AV block now present Sinus bradycardia no longer present Electronically Signed On 09-02-2025 16:59:13 MEDICAL TECHNICIAN ASSISTANT by Dayday Hooper M.D. [email or web address]
[2025-09-01 18:54] LABS: Hematocrit 36.7 % (36-47); Hemoglobin 11.30 g/dL (11.27-16.99); Mean Corpuscular HGB Conc 30.8 g/dL (30-55); Mean Corpuscular Hemoglobin 29.7 pg (27-33); Mean Corpuscular Volume 96.6 fl (85-98); Nucleated Red Blood Cells % 0 %; Platelet Count 261 10^3/cmm (157-399); Red Blood Count 3.80 10^6/uL (3.85-5.65); White Blood Count 8.59 10^3/uL (3.29-11.43)
[2025-09-01 19:00] VITALS: PULSE 63; O2SAT 92
[2025-09-01 19:09] LABS: Lactic Sepsis W/Reflex 2.2 mmol/L (0.5-2.2)
[2025-09-01 19:18] LABS: ABG PCO2 53.0 mmHg (35-45); ABG PH Result 7.38 (7.35-7.45); Arterial Blood Gas Hematocrit 34.2 % (37-47); Blood Gas Allen Test Pos; Blood Gas LPM 2.0 %; Blood Gas Operator Identificat BD; Blood Gas Sample Site Brachial, right; Blood Gas Sample Type Arterial; Carboxyhemoglobin 1.0 %THgb (0.4-20.1); HCO3 ABG 31.1 mmol/L (22-26); Methemoglobin 1.0 % (0.4-1.5); PO2 ABG 56.5 mmHg (80.0-100.0); PO2 FiO2 Ratio Arterial Blood 201
[2025-09-01 19:19] LABS: Alanine Aminotransferase 11 U/L (0-33); Albumin Level 3.5 g/dL (3.5-5.2); Alkaline Phosphatase 134 U/L (35-105); Anion Gap 14.5 (5-19); Aspartate Amino Transferase 13 U/L (0-32); Blood Urea Nitrogen 21 mg/dL (8-23); Calcium 8.1 mg/dL (8.5-10.5); Carbon Dioxide 29 mmol/L (22-29); Chloride 98 mmol/L (98-107); Globulin 3.8 g/dL (1.3-4.6); Glucose 183 mg/dL (65-115); Magnesium 2.5 mg/dL (1.7-2.3); NT Pro B Type Natriuretic Pept 2247 pg/mL (0-450); Osmolality Calculated 292 mOsm/kg (285-295); Potassium 4.5 mmol/L (3.5-5.1); Sodium 137 mmol/L (136-145); Total Protein 7.3 g/dL (6.6-8.7)
[2025-09-01 19:30] VITALS: BP 134/56; PULSE 64; O2SAT 93
--- NOTE | 2025-09-01 20:28 | W.ED.DIZZY ---
HPI - Dizziness General: Chief Complaint: Dizziness Stated Complaint: dizzy feels wobbley want co2 checked Time Seen by Provider: 09/01/25 18:33 History of Present Illness: HPI Narrative: Patient is a 79-year-old female presenting with complaints of dizziness and fatigue. She reports feeling kind of dizzy and attributes this to a problem with carbon dioxide. The patient states her symptoms have not improved and occur daily. She also complains of excessive sleepiness, stating she can't get enough sleep and is going all the time. Patient mentions she is on oxygen therapy (2L) usually. She denies fever but reports a mild, intermittent dry cough. No nausea, vomiting, or diarrhea reported. Patient lives at home with her and son. Related Data Home Medications ?Medication ?Instructions ?Recorded ?Confirmed cetirizine 10 mg tablet (Zyrtec) 10 mg PO DAILY PRN Allergy Symptoms 11/13/19 12/12/24 desvenlafaxine succinate 50 mg 50 mg PO DAILY 11/13/19 12/12/24 tablet,extended release 24 hr (Pristiq) esomeprazole magnesium 20 mg 20 mg PO DAILY 11/13/19 12/12/24 capsule,delayed release (Nexium) fluticasone propionate 50 1 spray intranasal DAILY PRN 11/13/19 12/12/24 mcg/actuation nasal allergies spray,suspension gabapentin 300 mg capsule 300 mg PO TID 11/13/19 12/12/24 oxycodone-acetaminophen 10 mg-325 1 tab PO Q4H PRN Pain 11/13/19 12/12/24 mg tablet (Percocet) phenytoin sodium extended 100 mg 300 mg PO BID 11/13/19 12/12/24 capsule (Dilantin Extended) ergocalciferol (vitamin D2) 1,250 1,250 mcg PO Q7D 09/14/21 12/12/24 mcg (50,000 unit) capsule (Vitamin D2) potassium chloride 20 mEq 20 meq PO DAILY 09/14/21 12/12/24 tablet,extended release apixaban 5 mg tablet (Eliquis) 5 mg PO BID 08/08/24 12/12/24 dulaglutide 1.5 mg/0.5 mL 0.5 mg SUBCUT Q7D 08/08/24 12/12/24 subcutaneous pen injector ([facility]) levothyroxine 125 mcg tablet 125 mcg PO DAILY 08/08/24 12/12/24 metformin 500 mg tablet 500 mg PO BID 08/08/24 12/12/24 azelastine 137 mcg (0.1 %) nasal 2 spray intranasal BID 08/21/24 12/12/24 spray furosemide 40 mg tablet 40 mg PO DAILY 08/21/24 12/12/24 metoprolol succinate 25 mg 25 mg PO DAILY 08/21/24 12/12/24 tablet,extended release 24 hr aspirin 81 mg tablet,delayed 81 mg PO DAILY 12/12/24 12/12/24 release Previous Rx's ?Medication ?Instructions ?Recorded atorvastatin 40 mg tablet 40 mg PO DAILY #30 tabs 08/07/24 Allergies Allergy/AdvReac Type Severity Reaction Status Date / Time adhesive tape Allergy Unknown Verified 10/03/24 11:15 silver sulfadiazine (From Allergy ALGY-Rash Verified 10/03/24 11:15 Silvadene) [facility] PFSH: Medical History (Updated 09/01/25 @ 20:33 by Javan Barrientos DO) Chronic anticoagulation Diabetes Hypoxia Diastolic heart failure Exertional dyspnea COPD (chronic obstructive pulmonary disease) Seizure disorder Mild aortic stenosis Obesity Diabetes 1.5, managed as type 2 Hyperlipidemia HTN (hypertension) Hypothyroidism CVA (cerebral vascular accident) Surgical History Previous back surgery S/P hysterectomy Family History Father Stroke Hypertension Mother Hypertension CAD (coronary artery disease) Myocardial infarction Sister Hypertension CAD (coronary artery disease) Myocardial infarction Brother CAD (coronary artery disease) Myocardial infarction Denies family history of Colon cancer Pancreatic cancer Ovarian cancer Thyroid cancer Diabetes Breast cancer Cancer Uterine cancer Social History Smoking and tobacco/nicotine status: never used tobacco/nicotine Household members: spouse Marital status: Physical Exam Const: COMMON NORMALS: no acute distress GENERAL APPEARANCE: cooperative and frail appearing (Mildly); not ill appearing HENMT: COMMON NORMALS: normocephalic, atraumatic and Normal external nose present HEAD & SCALP: normocephalic and atraumatic FACE & SINUS: normal facial exam and face symmetric NOSE: Normal external nose present Eye: COMMON NORMALS: Equal, round and reactive pupils present and EOMs intact bilaterally PUPIL: Yes Equal, round and reactive pupils present Neck/C-Spine: GENERAL: Yes trachea midline Chest: CHEST: Yes Symmetrical chest wall rise Resp: COMMON NORMALS: normal respiratory effort, No retractions, No use of accessory muscles and clear to auscultation bilaterally AUSCULTATION: clear to auscultation bilaterally Cardio: COMMON NORMALS: regular rate and regular rhythm RATE: regular rate RHYTHM: regular rhythm GI: COMMON NORMALS: Normal to inspection, nondistended, normoactive bowel sounds present Extremity: NARRATIVE EXTREMITY EXAM: Mild edema Neuro: ROSALINDA COMA SCALE: document GCS findings Rosalinda coma scale eye opening: Spontaneous Rosalinda coma scale verbal response: Orientated Davis coma scale motor response: Obey commands Rosalinda coma scale total score: 15 SENSORY EXAM: Yes extremities (intact) Psych: COMMON NORMALS: speech normal SPEECH: Yes normal speech Course Vital Signs: Vital signs: Vital Signs Temperature 98.0 F 09/01/25 18:17 Pulse Rate 65 09/01/25 21:21 Respiratory Rate 20 H 09/01/25 18:17 Blood Pressure 134/56 09/01/25 19:30 Pulse Oximetry 96 09/01/25 21:21 Oxygen Delivery Me thod Nasal Cannula 09/01/25 19:30 Oxygen Flow Rate 2 09/01/25 19:30 MDM - Dizziness Medical Decision Making ABG shows a pH of 7.38 with a pCO2 of 53 which is near her baseline. Chest x-ray she has no acute findings. Head CT shows atrophy with no acute findings. Laboratory including CBC and BMP are nonacute. BNP is mildly elevated at 2200. She is given 1 dose of Lasix for this. She is stable for discharge. Outpatient follow-up. Return for worsening symptoms. Lab Data 09/01/25 18:46 09/01/25 18:46 Radiology Impressions Chest X-Ray 09/01/25 18:46 IMPRESSION: 1. No acute portable chest findings. 2. Moderate cardiomegaly. 3. Bilateral hilar prominence consistent with previously noted hilar adenopathy on a CT 2020 question sarcoidosis but further correlation follow-up suggested. Head CT 09/01/25 18:46 IMPRESSION: 1. No acute intracranial head CT findings identified. 2. Atrophy/involutional changes of aging with components of chronic small-vessel disease. Laboratory Results WBC 8.59 10^3/uL (3.29-11.43) 09/01/25 18:46 RBC 3.80 10^6/uL (3.85-5.65) L 09/01/25 18:46 Hgb 11.30 g/dL (11.27-16.99) 09/01/25 18:46 Hct 36.7 % (36-47) 09/01/25 18:46 MCV 96.6 fl (85-98) 09/01/25 18:46 MCH 29.7 pg (27-33) 09/01/25 18:46 MCHC 30.8 g/dL (30-55) 09/01/25 18:46 RDW 13.3 % (12.1-15.1) 09/01/25 18:46 Plt Count 261 10^3/cmm (157-399) 09/01/25 18:46 MPV 8.2 fL (7.4-10.4) 09/01/25 18:46 Neut % (Auto) 72.1 % 09/01/25 18:46 Lymph % (Auto) 13.2 % 09/01/25 18:46 [place] % (Auto) 10.8 % 09/01/25 18:46 Eos % (Auto) 3.1 % 09/01/25 18:46 Baso % (Auto) 0.3 % 09/01/25 18:46 Neut # (Auto) 6.19 10^3/uL (1.8-7.7) 09/01/25 18:46 Lymph # (Auto) 1.1 10^3/uL (0.8-4.8) 09/01/25 18:46 [place] # (Auto) 0.9 10^3/uL (0.2-0.9) 09/01/25 18:46 Eos # (Auto) 0.3 10^3/uL (0.0-0.8) 09/01/25 18:46 Baso # (Auto) 0.0 10^3/uL (0.0-0.1) 09/01/25 18:46 Nucleated RBC % (auto) 0 % 09/01/25 18:46 Nucleated RBCs # 0.0 /100WBC 09/01/25 18:46 Specimen Type Arterial 09/01/25 19:10 Sample Site Brachial, right 09/01/25 19:10 ABG pH 7.38 (7.35-7.45) 09/01/25 19:10 ABG pCO2 53.0 mmHg (35-45) H 09/01/25 19:10 ABG pO2 56.5 mmHg (80.0-100.0) L 09/01/25 19:10 ABG PO2/FiO2 Ratio 201 09/01/25 19:10 ABG HCO3 31.1 mmol/L (22-26) H 09/01/25 19:10 ABG Base Excess 4.8 mmol/L (-2.0-2.0) H 09/01/25 19:10 Eliazar Test Pos 09/01/25 19:10 Hematocrit 34.2 % (37-47) L 09/01/25 19:10 Hgb O2 Saturation 88.3 % (95-100) L 09/01/25 19:10 Carboxyhemoglobin 1.0 %THgb (0.4-20.1) 09/01/25 19:10 Methemoglobin 1.0 % (0.4-1.5) 09/01/25 19:10 Total Hemoglobin 11.2 g/dL (12-16) L 09/01/25 19:10 O2 Delivery Device Nc 09/01/25 19:10 O2 Liters/Min 2.0 % 09/01/25 19:10 FiO2 28.0 % 09/01/25 19:10 Edge Plugger ID Bd 09/01/25 19:10 Sodium 137 mmol/L (136-145) 09/01/25 18:46 Potassium 4.5 mmol/L (3.5-5.1) 09/01/25 18:46 Chloride 98 mmol/L (98-107) 09/01/25 18:46 Carbon Dioxide 29 mmol/L (22-29) 09/01/25 18:46 Anion Gap 14.5 (5-19) 09/01/25 18:46 BUN 21 mg/dL (8-23) 09/01/25 18:46 Creatinine 1.2 mg/dL (0.5-0.9) H 09/01/25 18:46 GFR Calculation Not Reportable 09/01/25 18:46 Glucose 183 mg/dL (65-115) H 09/01/25 18:46 Calculated Osmolality 292 mOsm/kg (285-295) 09/01/25 18:46 Lactic Acid 2.2 mmol/L (0.5-2.2) 09/01/25 18:46 Calcium 8.1 mg/dL (8.5-10.5) L 09/01/25 18:46 Magnesium 2.5 mg/dL (1.7-2.3) H 09/01/25 18:46 Total Bilirubin 0.2 mg/dL (0.15-1.2) 09/01/25 18:46 AST 13 U/L (0-32) 09/01/25 18:46 ALT 11 U/L (0-33) 09/01/25 18:46 Alkaline Phosphatase 134 U/L (35-105) H 09/01/25 18:46 C-Reactive Protein 13.5 mg/L (0.0-4.9) H 09/01/25 18:46 NT-Pro-B Natriuret Pep 2247 pg/mL (0-450) H 09/01/25 18:46 Total Protein 7.3 g/dL (6.6-8.7) 09/01/25 18:46 Albumin 3.5 g/dL (3.5-5.2) 09/01/25 18:46 Globulin 3.8 g/dL (1.3-4.6) 09/01/25 18:46 All radiology interpretation(s) finalized by discharge EKG Data EKG 1: Interpretation: EKG shows sinus rhythm with first-degree AV block. There is right axis deviation. There is a right bundle branch block. Rate is 65. [place] interval is 215, QTc is 455. No acute ST wave changes. EKG is timed 1827, read at 1829. Discharge Plan Discharge Patient Disposition: Home Clinical Impression: Pulmonary edema Condition: Stable Prescriptions: No Action phenytoin sodium extended [Dilantin Extended] 100 mg capsule 300 mg PO BID fluticasone propionate 50 mcg/actuation spray,suspension 1 spray INTRANASAL DAILY PRN (Reason: allergies) gabapentin 300 mg capsule 300 mg PO TID esomeprazole magnesium [Nexium] 20 mg capsule,delayed release(DR/EC) 20 mg PO DAILY oxycodone-acetaminophen [Percocet] 10-325 mg tablet 1 tab PO Q4H PRN (Reason: Pain) desvenlafaxine succinate [Pristiq] 50 mg tablet extended release 24 hr 50 mg PO DAILY cetirizine [Zyrtec] 10 mg tablet 10 mg PO DAILY PRN (Reason: Allergy Symptoms) ergocalciferol (vitamin D2) [Vitamin D2] 1,250 mcg (50,000 unit) Capsule 1,250 mcg PO Q7D Rx Instructions: ON WEDNESDAYS potassium chloride 20 mEq Tablet Extended Release 20 meq PO DAILY metformin 500 mg tablet 500 mg PO BID Eliquis 5 mg tablet 5 mg PO BID levothyroxine 125 mcg tablet 125 mcg PO DAILY Trulicity 1.5 mg/0.5 mL pen injector 0.5 mg SUBCUT Q7D aspirin 81 mg Tablet,Delayed Release (Dr/Ec) 81 mg PO DAILY atorvastatin 40 mg tablet 40 mg PO DAILY Qty: 30 0RF furosemide 40 mg tablet 40 mg PO DAILY metoprolol succinate 25 mg tablet extended release 24 hr 25 mg PO DAILY azelastine 137 mcg (0.1 %) spray,non-aerosol 2 spray INTRANASAL BID Discharge Orders: Discharge ED (Routine); Ordered 09/01/25 Ordered By: Javan Barrientos Referrals: Adrienne March DO [Primary Care Provider, Family Practice] Patient Instructions: Pulmonary Edema (ED), Opioid Safety, Pain Management, Patient Portal & Porfirio Instructions Activity Restrictions/Additional Instructions: No specific cause of your dizziness was found on exam this evening. You have a bit too much fluid in your lungs, and were given medication for this. Your CO2 level was not high for you. Return for any problems. Print Language: Peruvian Coding Level of Care Code ED Bath Steward for Valentin Mace
[2025-09-01 20:38] LABS: Reflex Lactate Order REFLEX LACTIC ORDERD
[2025-09-01] MEDS: FUROsemide 10 mg/mL SDV 4mL 40 MG IVP (20:38)
[2025-09-01 21:21] VITALS: PULSE 65; O2SAT 96
== END 2025-09-01 21:26 | disposition home or self-care (01) ==
PROVIDERS: Emergency Provider Emergency Medicine; PCP Family Medicine
DX: J81.1 Chronic pulmonary edema (principal); Z79.84 Long term (current) use of oral hypoglycemic drugs; Z79.01 Long term (current) use of anticoagulants; E78.5 Hyperlipidemia, unspecified; E13.9 Other specified diabetes mellitus without complications; J44.9 Chronic obstructive pulmonary disease, unspecified; I11.0 Hypertensive heart disease with heart failure; I50.30 Unspecified diastolic (congestive) heart failure; Z86.73 Personal history of transient ischemic attack (TIA), and cerebral infarction without residual deficits; Z99.81 Dependence on supplemental oxygen
CPT/HCPCS: 36415; 36600; 70450; 71045; 80053; 82805; 83605; 83735; 83880; 85025; 86140; 87040; 93005; 96374; 99285; J1938

== ENCOUNTER 2025-09-13 00:24 | Emergency (ER) | payer MEDICARE, SELFPAY ==
[2025-09-13 00:24] VITALS: BP 108/51; PULSE 52; RESP 16; TEMP 36.7; O2SAT 92; BMI 40.0
--- OUTSIDE RECORDS SUMMARY | 2025-09-13 00:36 | XMS_ITS | Encounter Summary ---
Author Organization [facility] Address [address] [place] [address] Care Team Providers Care Excavator Operator Name Role Phone Adrienne March DO Primary Care Provider Encounter Details Date Type Department Care Team (Latest Contact Info) Description 09/27/2003 Outpatient Historical [facility] 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 Gender Identity Not on file Sexual Orientation Not on file documented as of this encounter Plan of Treatment Not on file documented as of this encounter Visit Diagnoses Diagnosis Cervical spondylosis- Primary Cervical spondylosis without myelopathy Cervicalgia Cervical spinal stenosis Spinal stenosis in cervical region Brachial neuritis or radiculitis NOS Brachial neuritis or radiculitis nos documented in this encounter Care Teams Excavator Operator Relationship Specialty Start Date End Date Adrienne March DO [address] [place] [address] PCP - General Family Practice 06/30/10 documented as of this encounter
--- OUTSIDE RECORDS SUMMARY | 2025-09-13 00:36 | XMS_ITS | Encounter Summary ---
Author Organization [facility] Address [address] [place] [address] Care Team Providers Care Chop Saw Operator Name Role Phone Adrienne March DO Primary Care Provider [phone]- [phone] Encounter Details Date Type Department Care Team (Late st Contact Info) Description 10/01/2003 Inpatient Historical [facility] Jose Luis Mcmillan MD [address] [place] [address] CERVICAL DISC DISPLACMNT (Primary Dx) Social History Tobacco Use Types Packs/Day Years Used Date Smoking Tobacco: Never Assessed Comments Unknown Sex and Gender Information Value Date Recorded Sex Assigned at Not on file Legal Sex Female 3:34 AM 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
--- OUTSIDE RECORDS SUMMARY | 2025-09-13 00:37 | XMS_ITS | Encounter Summary ---
Author Organization [facility] Address [address] [place] [address] Care Team Providers Care Manager Practice Name Role Phone Adrienne March DO Primary Care Provider Encounter Details Date Type Department Care Team (Latest Contact Info) Description 04/30/2003 [facility] [address] [place] [address] Wilfredo Michel MD [address] [address] BRACHIAL NEURITIS NOS (Primary Dx); MYALGIA AND MYOSITIS NOS Social History Tobacco Use Types Packs/Day Years Used Date Smoking Tobacco: Never Assessed Comments Unknown Sex and Gender Information Value Date Recorded Sex Assigned at Not on file Legal Sex Female 3:34 AM ILLUMINATING ENGINEER Gender Identity Not on file Sexual Orientation Not on file documented as of this encounter Plan of Treatment Not on file documented as of this encounter Visit Diagnoses Diagnosis Brachial neuritis or radiculitis NOS- Primary Brachial neuritis or radiculitis nos Myalgia and myositis, unspecified Mylagia and myositis, unspecified documented in this encounter Care Teams Manager Practice Relationship Specialty Start Date End Date Adrienne March DO [address] [place] [address] PCP - General Family Practice 06/30/10 documented as of this encounter
--- OUTSIDE RECORDS SUMMARY | 2025-09-13 00:37 | XMS_ITS | Encounter Summary ---
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
--- OUTSIDE RECORDS SUMMARY | 2025-09-13 00:37 | XMS_ITS | Encounter Summary ---
Author Organization [facility] Address [address] [place] [address] Care Team Providers Care Elementary School Band Director Name Role Phone Adrienne March DO Primary Care Provider Encounter Details Date Type Department Care Team (Late st Contact Info) Description 10/04/2007 Outpatient Historical [facility] Gen Spec Surg [place] [address] [place] [address] [place] [address] Ketan Lew MD [address] [place] [address] Social History Tobacco Use Types Packs/Day Years Used Date Smoking Tobacco: Never Assessed Comments Unknown Sex and Gender Information Value Date Recorded Sex Assigned at Not on file Legal Sex Female 3:34 AM STATISTICIAN THEORETICAL Gender Identity Not on file Sexual Orientation [...] , P, trina Job #: Document #: [id number] cc: Alexei Dubon D.O. ISTICIAN THEORETICAL ISTICIAN THEORETICAL documented in this encounter Plan of Treatment Not on file documented as of this encounter Visit Diagnoses Not on filedocumented in this encounter Care Teams Elementary [employer] Band Director Relationship Specialty Start Date End Date Adrienne March DO [address] [place] [phone] PCP - General Family Practice 06/30/10 documented as of this encounter
--- OUTSIDE RECORDS SUMMARY | 2025-09-13 00:37 | XMS_ITS | Encounter Summary ---
Author Organization [facility] Address [address] [place] [address] Care Team Providers Care Link Trainer Mechanic Name Role Phone Adrienne March DO Primary Care Provider Encounter Details Date Type Department Care Team (Latest Contact Info) Description 11/23/2005 Outpatient Historical 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
--- OUTSIDE RECORDS SUMMARY | 2025-09-13 00:37 | XMS_ITS | Encounter Summary ---
Author Organization [facility] Address [address] [place] [address] Care Team Providers Care Delivery Driver/Customer Service Name Role Phone Adrienne March DO Primary Care Provider Encounter Details Date Type Department Care Team (Latest Contact Info) Description 07/28/2007 Outpatient Historical [facility] Gen Spec Surg [place] [address] 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
--- OUTSIDE RECORDS SUMMARY | 2025-09-13 00:37 | XMS_ITS | Encounter Summary ---
Author Organization [facility] Address [address] [place] [address] Care Team Providers Care Houseperson Name Role Phone Adrienne March DO Primary Care Provider Encounter Details Date Type Department Care Team (Late st Contact Info) Description 02/01/2008 Outpatient Historical [address] Neuro [address] [place] [address] Ed, Physician NO ADDRESS ON FILE Marcelino Sauceda MD NO ADDRESS ON FILE Sushil Enrique MD [address] [place] [phone] Social History Tobacco Use Types Packs/Day Years Used Date Smoking Tobacco: Never Assessed Comments Unknown Sex and Gender Information Value Date Recorded Sex Assigned at Not on file 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 Gender Identity Not on file Sexual [...] GLUCOSE POC 216(H) 60 - 100 mg/dL [facility] Venous blood specimen (specimen) 02/06/2008 6:49 AM CDT 02/07/2008 6:53 AM CDT us Sushil Enrique MD POINT OF CARE TESTING Final Res ult [facility] CLIA# [id number] [address] [place] [address] * CLOSTRIDIUM DIFFICILE TOXIN (02/05/2008 10:03 PM CDT) C DIFFICILE TOXIN Negative Negative [facility] 02/05/2008 10:0 3 PM CDT 02/05/2008 10:03 PM CDT Sushil Enrique MD MICROBIOLOGY - GENERAL ORDERABL ES Final Result Performing Organization Address [facility] Co de Phone Number [facility] CLIA# [id number] [address] [place] [address] * (ABNORMAL) POC GLUCOSE (02/05/2008 8:47 PM CDT) GLUCOSE POC 116(H) 60 - 100 mg/dL [facility] Venous blood specimen (specimen) 02/05/2008 8:47 PM CDT 02/06/2008 12:45 AM CDT Sushil Enrique MD POINT OF CARE TESTING Final Res ult Performing Organization Address [facility] Co de Phone Number [facility] CLIA# [id number] [address] [place] [address] * (ABNORMAL) POC GLUCOSE (02/05/2008 4:38 PM CDT) GLUCOSE POC 276(H) 60 - 100 mg/dL [facility] Venous blood specimen (specimen) 02/05/2008 4:38 PM CDT 02/06/2008 12:57 AM CDT Sushil Enrique MD POINT OF CARE TESTING Final Res ult Performing Organization Address [facility] Co de Phone Number [facility] CLIA# [id number] [address] [place] [address] * (ABNORMAL) POC GLUCOSE (02/05/2008 11:08 AM CDT) GLUCOSE POC 157(H) 60 - 100 mg/dL [facility] Venous blood specimen (specimen) 02/05/2008 11:08 AM CDT 02/05/2008 12:24 PM CDT Sushil Enrique MD POINT OF CARE TESTING Final Res ult Performing Organization Address [facility] Co de Phone Number [facility] CLIA# [id number] [address] [place] [address] * (ABNORMAL) POC GLUCOSE (02/05/2008 7:52 AM CDT) [facility] Signature GLUCOSE POC 168(H) 60 - 100 mg/dL [facility] Venous blood specimen (specimen) 02/05/2008 7:52 AM CDT 02/05/2008 12:24 PM CDT Sushil Enrique MD POINT OF CARE TESTING Final Res ult Performing Organization Address [facility] de Phone Number [facility] CLIA# [id number] [address] [place] [address] * PHENYTOIN LEVEL, TOTAL (02/05/2008 6:00 AM CDT) [facility] PHENYTOIN TOTAL 11.4 10.0 - 20.0 ug/mL [facility] Blood specimen (specimen) 02/05/2008 6:00 AM CDT 02/05/2008 6:21 AM CDT Sushil Enrique MD CHEMISTRY ORDERABLES Final Resu lt Performing Organization Address [facility] de Phone Number [facility] CLIA# [id number] [address] [place] [address] * (ABNORMAL) CBC WITH DIFFERENTIAL (02/04/2008 10:22 PM CDT) BASOPHILS 0.3 0.0 - 1.0 % [facility] MPV 10.0 8.9 - 12.8 Fl [facility] BASOPHILS ABSOLUTE 0.0 0.0 - 0.2 K/ul [facility] HEMOGLOBIN 14.7 12.0 - 16.0 g/dL [facility] MONOCYTES 7.6 2.0 - 10.0 % [facility] RDW 13.6 11.0 - 14.5 % [facility] MONOCYTE ABSOLUTE 0.9(H) 0.1 - 0.6 K/ul [facility] WBC 11.9(H) 4.8 - 10.8 K/ul [facility] NEUTROPHILS 75.7(H) 42.2 - 75.2 % [facility] MCH 28.4 27.0 - 34.0 pg [facility] NEUTROPHIL ABSOLUTE 9.0(H) 2.0 - 8.0 K/ul [facility] HEM COMMENT REDRAWN:15 11 [facility] HEMATOCRIT 46.8(H) 36.0 - 46.0 % [facility] PLATELETS 354 140 - 440 K/ul [facility] EOSINOPHIL ABSOLUTE 0.1 0.0 - 0.7 K/ul [facility] EOSINOPHILS 0.9 0.0 - 7.0 % [facility] RBC 5.18 4.20 - 5.40 Mil/ul [facility] MCHC 31.4 30.0 - 35.0 g/dL [facility] LYMPHOCYTE ABSOLUTE 1.9 1.2 - 4.0 K/ul [facility] LYMPHOCYTES 15.5(L) 24.0 - 44.0 % [facility] MCV 90.3 84.0 - 103.0 Fl [facility] Blood specimen (specimen) 02/04/2008 10:22 PM CDT 02/04/2008 10:22 PM CDT us Sushil Enrique MD HEMATOLOGY ORDERABLES Edited [facility] CLIA# [id number] [address] [place] [address] * (ABNORMAL) POC GLUCOSE (02/04/2008 8:43 PM CDT) GLUCOSE POC 225(H) 60 - 100 mg/dL [facility] Venous blood specimen (specimen) 02/04/2008 8:43 PM CDT 02/04/2008 11:46 PM CDT us Sushil Enrique MD POINT OF CARE TESTING Final Res ult Performing Organization Address [facility] Co de Phone Number [facility] CLIA# [id number] [address] [place] [address] * (ABNORMAL) POC GLUCOSE (02/04/2008 5:23 PM CDT) GLUCOSE POC 153(H) 60 - 100 mg/dL [facility] Venous blood specimen (specimen) 02/04/2008 5:23 PM CDT 02/04/2008 11:42 PM CDT us Sushil Enrique MD POINT OF CARE TESTING Final Res ult Performing Organization Address [facility] Co de Phone Number [facility] CLIA# [id number] [address] [place] [address] * PHENYTOIN LEVEL, TOTAL (02/04/2008 3:11 PM CDT) PHENYTOIN TOTAL 12.4 10.0 - 20.0 ug/mL [facility] Blood specimen (specimen) 02/04/2008 3:11 PM CDT 02/04/2008 3:32 PM CDT us Sushil Enrique MD CHEMISTRY ORDERABLES Final Resu lt Performing Organization Address City/[facility]/ZIP Co de Phone Number [facility] CLIA# [id number] [address] [place] [address] * AMYLASE (02/04/2008 3:11 PM CDT) Pathologist [facility] AMYLASE 20 20 - 104 U/L [facility] Blood specimen (specimen) 02/04/2008 3:11 PM CDT 02/04/2008 3:32 PM CDT Sushil Enrique MD CHEMISTRY ORDERABLES Final Resu lt [facility] CLIA# [id number] [address] [place] [address] * (ABNORMAL) COMPREHENSIVE METABOLIC PANEL (02/04/2008 3:11 PM CDT) [facility] ALBUMIN 4.0 3.5 - 5.0 g/dL [facility] POTASSIUM 3.8 3.5 - 5.0 mEq/L [facility] GLOBULIN (CALC) 3.0 2.4 - 3.9 g/dL [facility] CREATININE 1.2 0.7 - 1.2 mg/dL [facility] CALCIUM 9.3 8.4 - 10.5 mg/dL [facility] ALT 28 4 - 36 IU/L [facility] OSMOLALITY, CALCULATED 290 275 - 295 mOsm/Kg [facility] GLUCOSE 156(H) 70 - 110 mg/dL [facility] CHLORIDE 99 95 - 110 mEq/L [facility] ALKALINE PHOSPHATASE 103(H) 25 - 100 U/L [facility] ALBUMIN/GLOBULIN RATIO 1.3 1.0 - 2.3 [facility] SODIUM 139 136 - 145 mEq/L [facility] TOTAL PROTEIN 7.0 6.3 - 8.2 g/dL [facility] BILIRUBIN TOTAL 0.2(L) 0.3 - 1.2 mg/dL [facility] BUN 15 7 - 17 mg/dL [facility] AST 24 8 - 33 U/L [facility] CO2 32 22 - 32 mmol/l [facility] ANION GAP 12 9 - 20 mEq/L [facility] Blood specimen (specimen) 02/04/2008 3:11 PM CDT 02/04/2008 3:32 PM CDT Sushil Enrique MD CHEMISTRY ORDERABLES Final Resu lt Performing Organization Address [facility] Co de Phone Number [facility] CLIA# [id number] [address] [place] [address] * (ABNORMAL) POC GLUCOSE (02/04/2008 12:44 PM CDT) GLUCOSE POC 150(H) 60 - 100 mg/dL [facility] Venous blood specimen (specimen) 02/04/2008 12:44 PM CDT 02/04/2008 11:42 PM CDT Sushil Enrique MD POINT OF CARE TESTING Final Res ult Performing Organization Address [facility] de Phone Number [facility] CLIA# [id number] [address] [place] [address] * (ABNORMAL) POC GLUCOSE (02/04/2008 8:55 AM CDT) GLUCOSE POC 247(H) 60 - 100 mg/dL [facility] Venous blood specimen (specimen) 02/04/2008 8:55 AM CDT 02/04/2008 11:42 PM CDT Sushil Enrique MD POINT OF CARE TESTING Final Res ult Performing Organization Address [facility] de Phone Number [facility] CLIA# [id number] [address] [place] [address] * (ABNORMAL) POC GLUCOSE (02/03/2008 10:35 PM CDT) GLUCOSE POC 209(H) 60 - 100 mg/dL [facility] Venous blood specimen (specimen) 02/03/2008 10:35 PM CDT 02/04/2008 1:59 AM CDT Sushil Enrique MD POINT OF CARE TESTING Final Res ult Performing Organization Address [facility] Co de Phone Number [facility] CLIA# [id number] [address] [place] [address] * (ABNORMAL) POC GLUCOSE (02/03/2008 4:56 PM CDT) GLUCOSE POC 317(H) 60 - 100 mg/dL [facility] Venous blood specimen (specimen) 02/03/2008 4:56 PM CDT 02/04/2008 1:55 AM CDT us Sushil Enrique MD POINT OF CARE TESTING Final Res ult Performing Organization Address [facility] de Phone Number [facility] CLIA# [id number] [address] [place] [address] * (ABNORMAL) POC GLUCOSE (02/03/2008 11:53 AM CDT) GLUCOSE POC 213(H) 60 - 100 mg/dL [facility] Venous blood specimen (specimen) 02/03/2008 11:53 AM CDT 02/04/2008 11:08 AM CDT Sushil Enrique MD POINT OF CARE TESTING Final Res ult Performing Organization Address [facility] de Phone Number [facility] CLIA# [id number] [address] [place] [address] * (ABNORMAL) POC GLUCOSE (02/03/2008 5:16 AM CDT) GLUCOSE POC 256(H) 60 - 100 mg/dL [facility] Venous blood specimen (specimen) 02/03/2008 5:16 AM CDT 02/03/2008 6:38 AM CDT Sushil Enrique MD POINT OF CARE TESTING Final Res ult Performing Organization Address [facility] Co de Phone Number [facility] CLIA# [id number] [address] [place] [address] * PHENYTOIN LEVEL, TOTAL (02/03/2008 4:06 AM CDT) PHENYTOIN TOTAL 15.8 10.0 - 20.0 ug/mL [facility] Blood specimen (specimen) 02/03/2008 4:06 AM CDT 02/03/2008 4:06 AM CDT Sushil Enrique MD CHEMISTRY ORDERABLES Final Resu lt Performing Organization Address [facility] de Phone Number [facility] CLIA# [id number] [address] [place] [address] * (ABNORMAL) POC GLUCOSE (02/02/2008 8:14 PM CDT) GLUCOSE POC 189(H) 60 - 100 mg/dL [facility] Venous blood specimen (specimen) 02/02/2008 8:14 PM CDT 02/03/2008 6:38 AM CDT Sushil Enrique MD POINT OF CARE TESTING Final Res ult Performing Organization Address [facility] de Phone Number [facility] CLIA# [id number] [address] [place] [address] * (ABNORMAL) POC GLUCOSE (02/02/2008 4:34 PM CDT) GLUCOSE POC 243(H) 60 - 100 mg/dL [facility] Venous blood specimen (specimen) 02/02/2008 4:34 PM CDT 02/03/2008 6:38 AM CDT us Sushil Enrique MD POINT OF CARE TESTING Final Res ult Performing Organization Address [facility] de Phone Number [facility] CLIA# [id number] [address] [place] [address] * PHENYTOIN LEVEL, TOTAL (02/02/2008 3:19 PM CDT) PHENYTOIN TOTAL 18.5 10.0 - 20.0 ug/mL [facility] Blood specimen (specimen) 02/02/2008 3:19 PM CDT 02/02/2008 3:28 PM CDT us Marley Dietrich MD CHEMISTRY ORDERABLES Final Resul t Performing Organization Address [facility] Phone Number [facility] CLIA# [id number] [address] [place] [address] * (ABNORMAL) POC GLUCOSE (02/02/2008 1:27 PM CDT) GLUCOSE POC 386(H) 60 - 100 mg/dL [facility] Venous blood specimen (specimen) 02/02/2008 1:27 PM CDT 02/03/2008 6:38 AM CDT us Sushil Enrique MD POINT OF CARE TESTING Final Res ult Performing Organization Address [facility] de Phone Number [facility] CLIA# [id number] [address] [place] [address] * (ABNORMAL) PHENYTOIN LEVEL, TOTAL (02/02/2008 12:11 PM CDT) PHENYTOIN TOTAL 0.9(L) 10.0 - 20.0 ug/mL [facility] Blood specimen (specimen) 02/02/2008 12:11 PM CDT 02/02/2008 12:23 PM CDT Sushil Enrique MD CHEMISTRY ORDERABLES Final Resu lt Performing Organization Address [facility] Co de Phone Number [facility] CLIA# [id number] [address] [place] [address] * (ABNORMAL) POC GLUCOSE (02/02/2008 12:08 PM CDT) GLUCOSE POC 401(H) 60 - 100 mg/dL [facility] Venous blood specimen (specimen) 02/02/2008 12:08 PM CDT 02/03/2008 6:38 AM CDT us Sushil Enrique MD POINT OF CARE TESTING Final Res ult Performing Organization Address [facility] de Phone Number [facility] CLIA# [id number] [address] [place] [address] * MRSA CULTURE (02/02/2008 9:56 AM CDT) FINAL REPORT Culture screen for MRSA negative INTERFACE SYSTEM 02/02/2008 9:56 AM CDT 02/02/2008 8:37 PM CDT us Sushil Enrique MD MICROBIOLOGY - GENERAL ORDERABL ES Final Result Performing Organization Address [facility] de Phone Number INTERFACE SYSTEM Refer to clinic/hospital department * (ABNORMAL) POC GLUCOSE (02/02/2008 6:40 AM CDT) GLUCOSE POC 393(H) 60 - 100 mg/dL [facility] Venous blood specimen (specimen) 02/02/2008 6:40 AM CDT 02/03/2008 1:57 AM CDT us Sushil Enrique MD POINT OF CARE TESTING Final Res ult Performing Organization Address [facility] Co de Phone Number [facility] CLIA# [id number] [address] [place] [address] * (ABNORMAL) LIPID PANEL (02/02/2008 6:10 AM CDT) CHOLESTEROL 220(H) 0 - 200 mg/dL [facility] Comment: On 01/23/2008 [facility] changed the cholesterol reference range to 0-200 mg/dl. This is the recommendation of the National Cholesterol Education Program (NCEP-ATPIII). CALCULATED LDL CHOLESTEROL 117(H) 0 - 100 mg/dL [facility] Comment: On 01/23/2008 [facility] changed the LDL reference range to 0- 100 mg/dl. This is the recommendation of the National Cholesterol Education Program (NCEP-ATPIII). HDL 40 40 - 60 mg/dL [facility] CALCULATED TOTAL CHOLESTEROL TO HDL RATIO 5.50(H) 3.27 - 4.44 [facility] TRIGLYCERIDE 315(H) 0 - 150 mg/dL [facility] Comment: On 01/23/2008, [facility] changed the triglyceride reference range to 0-150 mg/dl. This is the recommendation of the National Cholesterol Education Program (NCEP-ATPIII). Blood specimen (specimen) 02/02/2008 6:10 AM CDT 02/02/2008 6:31 AM CDT us Sushil Enrique MD CHEMISTRY ORDERABLES Final Resu lt [facility] CLIA# [id number] [address] [place] [address] * (ABNORMAL) URINALYSIS (02/02/2008 5:10 AM CDT) Pathologist [facility] LEUKOCYTE ESTERASE UA NEGATIVE NEGATIVE [facility] KETONES UA NEGATIVE NEGATIVE [facility] MICRO EXAM No No [facility] COLOR UA Yellow Straw [facility] PROTEIN UA NEGATIVE NEGATIVE [facility] BLOOD UA NEGATIVE NEGATIVE [facility] NITRITE UA NEGATIVE NEGATIVE [facility] UROBILINOGEN UA 0.2 0.2 [facility] CLARITY UA Clear Clear [facility] SPECIFIC GRAVITY UA 1.020 <=1.005 [facility] GLUCOSE UA >=1000 mg/dl(A) NEGATIVE [facility] PH UA 6.0 5.0 - 9.0 [facility] BILIRUBIN UA NEGATIVE NEGATIVE [facility] Urine specimen (specimen) 02/02/2008 5:10 AM CDT 02/02/2008 5:10 AM CDT us Marcelino Sauceda MD URINE ORDERABLES Final Result [facility] CLIA# [id number] [address] [place] [address] * MRI BRAIN W WO CONTRAST (02/01/2008 [...] calvarial lesions. Additional thin section postcontrast fat-saturated [id number] images were obtained through the orbits. No [...] CDT) RBC 5.24 4.20 - 5.40 Mil/ul [facility] LYMPHOCYTES 23.8(L) 24.0 - 44.0 % [facility] MCHC 32.7 30.0 - 35.0 g/dL [facility] LYMPHOCYTE ABSOLUTE 2.2 1.2 - 4.0 K/ul [facility] MCV 87.0 84.0 - 103.0 Fl [facility] MPV 9.4 8.9 - 12.8 Fl [facility] BASOPHILS ABSOLUTE 0.0 0.0 - 0.2 K/ul [facility] BASOPHILS 0.2 0.0 - 1.0 % [facility] HEMOGLOBIN 14.9 12.0 - 16.0 g/dL [facility] RDW 13.2 11.0 - 14.5 % [facility] MONOCYTE ABSOLUTE 0.6 0.1 - 0.6 K/ul [facility] MONOCYTES 6.4 2.0 - 10.0 % [facility] WBC 9.2 4.8 - 10.8 K/ul [facility] MCH 28.4 27.0 - 34.0 pg [facility] NEUTROPHIL ABSOLUTE 6.2 2.0 - 8.0 K/ul [facility] NEUTROPHILS 67.4 42.2 - 75.2 % [facility] HEMATOCRIT 45.6 36.0 - 46.0 % [facility] EOSINOPHILS 2.2 0.0 - 7.0 % [facility] PLATELETS 282 140 - 440 K/ul [facility] EOSINOPHIL ABSOLUTE 0.2 0.0 - 0.7 K/ul [facility] Blood specimen (specimen) 02/01/2008 7:34 PM CDT 02/01/2008 7:34 PM CDT us Marcelino Sauceda MD HEMATOLOGY ORDERABLES Final Res ult [facility] CLIA# [id number] [address] [place] [address] * PT AND APTT (02/01/2008 7:34 PM CDT) PROTIME 13.5 12.8 - 15.8 Secs [facility] Comment:As of 2007 not e change in normal range. INR 0.9 [facility] Comment: Expected Values for INR: DVT/PE Goal INR 2.5; range 2.0 - 3.0 Valve Replacement Tissue Goal INR 2.5; range 2.0 - 3.0 Mechanical Goal INR 3.0; range 2.5 - 3.5 POST-WA Goal INR 2.5; range 2.0 - 3.0 or Goal 3.0; range 2.5 - 3.5 Atrial Fibrillation Goal INR 2.5; range 2.0 - 3.0 Ischemic Stroke Goal INR 2.5; range 2.0 - 3.0 For additional information see Guidelines for Anticoagulation available from the pharmacy Ciara Bradley [phone] PTT 27.7 22.5 - 36.5 Secs [facility] Comment: Therapeutic Range: Hi-level PE/DVT heparin protocol 80.1 -95.0 sec Lo-level PE/DVT heparin protocol 67.1 - 80.0 sec Cardiac Heparin Protocol 67.1 - 85.0 sec Neuro Heparin Protocol 67.1 - 80.0 sec As of 12/08/2007 note change in APTT Normal Range. Blood specimen (specimen) 02/01/2008 7:34 PM CDT 02/01/2008 7:34 PM CDT us Marcelino Sauceda MD HEMATOLOGY ORDERABLES Edited [facility] CLIA# [id number] [address] [place] [address] * (ABNORMAL) BASIC METABOLIC PANEL (02/01/2008 7:34 PM CDT) OSMOLALITY, CALCULATED 296(H) 275 - 295 mOsm/Kg [facility] POTASSIUM 3.9 3.5 - 5.0 mEq/L [facility] CREATININE 1.1 0.7 - 1.2 mg/dL [facility] CALCIUM 9.6 8.4 - 10.5 mg/dL [facility] GLUCOSE 283(H) 70 - 110 mg/dL [facility] CHLORIDE 100 95 - 110 mEq/L [facility] SODIUM 139 136 - 145 mEq/L [facility] ANION GAP 11 9 - 20 mEq/L [facility] BUN 13 7 - 17 mg/dL [facility] CO2 32 22 - 32 mmol/l [facility] Blood specimen (specimen) 02/01/2008 7:34 PM CDT 02/01/2008 7:34 PM CDT us Marcelino Sauceda MD CHEMISTRY ORDERABLES Final Resu lt Performing Organization Address City/State/[facility] Co de Phone Number [facility] CLIA# [id number] [address] [place] [address] documented in this encounter Visit Diagnoses Not on filedocumented in this encounter Care Teams Houseperson Relationship Specialty Start Date End Date Adrienne March DO [address] [place] [address] PCP - General Family Practice 06/30/10 documented as of this encounter
--- OUTSIDE RECORDS SUMMARY | 2025-09-13 00:37 | XMS_ITS | Encounter Summary ---
Author Organization [facility] Address [address] [place] [address] Care Team Providers Care Fast Brim Pouncer Name Role Phone Adrienne March DO Primary Care Provider [phone] Encounter Details Date Type Department Care Team (Latest Contact Info) Description 07/13/2001 Outpatient Historical [facility] [address], [address] [place] [address] [place] NO ADDRESS ON FILE Pain in limb (Primary Dx) Social History Tobacco Use Types Packs/Day Years Used Date Smoking Tobacco: Never Assessed Comments Unknown Sex and Gender Information Value Date Recorded Sex Assigned at Not on file 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
--- OUTSIDE RECORDS SUMMARY | 2025-09-13 00:37 | XMS_ITS | Encounter Summary ---
Author Organization [facility] Address [address] [place] [address] Care Team Providers Care Program Director/Music Director Name Role Phone Adrienne March DO Primary Care Provider Encounter Details Date Type Department Care Team (Latest Contact Info) Description 07/15/2001 Outpatient Historical [facility] [address] [phone] Lesly Jones MD NO ADDRESS ON FILE Other screening mammogram (Primary Dx) Social History Tobacco Use Types Packs/Day Years Used Date Smoking Tobacco: Never Assessed Comments Unknown Sex and Gender Information Value Date Recorded Sex Assigned at Not on file 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
--- OUTSIDE RECORDS SUMMARY | 2025-09-13 00:37 | XMS_ITS | Encounter Summary ---
Author Organization [facility] Address [address] [place] [address] Care Team Providers Care Attending Urologist Name Role Phone Adrienne March DO Primary Care Provider Encounter Details Date Type Department Care Team (Late st Contact Info) Description 12/16/2017 Ancillary Orders [facility] Th[facility] 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
--- OUTSIDE RECORDS SUMMARY | 2025-09-13 00:37 | XMS_ITS | Encounter Summary ---
Author Organization [facility] Address [address] [place] [address] Care Team Providers Care Assistant Director Of Financial Aid Name Role Phone Adrienne March DO Primary Care Provider Encounter Details Date Type Department Care Team (Late st Contact Info) Description 10/24/2007 [facility] [place] [address] [place] [address] Gamal Bass, FICTION AND NONFICTION WRITER PROSE [address] [place] [address] Social History Tobacco Use Types Packs/Day Years Used Date Smoking Tobacco: Never Assessed Comments Unknown Sex and Gender Information Value Date Recorded Sex Assigned at Not on file 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
--- OUTSIDE RECORDS SUMMARY | 2025-09-13 00:37 | XMS_ITS | Encounter Summary ---
Author Organization [facility] Address [address] [place] [address] Care Team Providers Care Curriculum And Instruction Director Name Role Phone Adrienne March DO Primary Care Provider [phone] Encounter Details Date Type Department Care Team (Latest Contact Info) Description 06/07/2007 Outpatient Historical [facility] Cardiovascular Services [address] [place] [address] Ketan Lew MD [address] [address] Swelling of Limb (Primary Dx) Social History Tobacco Use Types Packs/Day Years Used Date Smoking Tobacco: Never Assessed Comments Unknown Sex and Gender Information Value Date Recorded Sex Assigned at Not on file 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
--- OUTSIDE RECORDS SUMMARY | 2025-09-13 00:37 | XMS_ITS | Encounter Summary ---
Author Organization [facility] Address [address] [place] [address] Care Team Providers Care Employee Benefits Specialist Name Role Phone Adrienne March DO Primary Care Provider Encounter Details Date Type Department Care Team (Latest Contact Info) Description 07/31/2025 Results Follow-Up [facility] Medicine [place] [address] [place] [address] Adrienne March DO [address] [place] [address] POC URINALYSIS DIPSTICK NON AUTOMATED, [...] on file Legal Sex Female 6:27 AM SHARE HOLDER Gender Identity Not on file Sexual Orientation Not on file documented as of this encounter Plan of Treatment Upcoming Encounters Date Type Department Care Team (Late st Contact Info) Description 10/10/2025 10:40 AM SHARE HOLDER Procedure visit [facility] [place] [address] [phone] Davi Ferguson MD [address] [place] [phone] 10/25/2025 1:40 PM SHARE HOLDER Office Visit [facility] [address] [place] [phone] Adrienne March, DO [address] [place] [phone] 01/23/2026 11:20 AM CDT Office Visit [facility] [address] [place] [phone] Adrienne March, DO [address] [place] [phone] 04/22/2026 1:20 PM CDT Office Visit [facility] [address] [place] [address] [place] [address] Cori Ochoa, FILTERS ASSEMBLER [address] [facility] [address] [place] [phone] documented as of this encounter Visit Diagnoses Not on filedocumented in this encounter Additional Health Concerns Assessment Noted Time PHQ-9 Depression Total Score: 2 07/25/20 25 10:06 AM SHARE HOLDER documented as of this encounter Care Teams Employee Benefits Specialist Relationship Specialty Start Date End Date Adrienne March DO [address] [place] [phone] PCP - General Family Practice 06/30/10 documented as of this encounter
--- OUTSIDE RECORDS SUMMARY | 2025-09-13 00:37 | XMS_ITS | Encounter Summary ---
Author Organization [facility] Address [address] [place] [address] Care Team Providers Care General Ledger Bookkeeper Name Role Phone Adrienne March DO Primary Care Provider Encounter Details Date Type Department Care Team (Latest Contact Info) Description 04/21/2003 Outpatient Historical [facility] Physical Therapy [address] [place] [address] [place] [phone] Wilfredo Michel MD [address] [phone] CERVICALGIA (Primary Dx) Social History Tobacco Use Types Packs/Day Years Used Date Smoking Tobacco: Never Assessed Comments Unknown Sex and Gender Information Value Date Recorded Sex Assigned at Not on file 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
--- OUTSIDE RECORDS SUMMARY | 2025-09-13 00:37 | XMS_ITS | Encounter Summary ---
Author Organization [facility] Address [address] [place] [address] Care Team Providers Care Family Preservation Worker Name Role Phone Adrienne March DO Primary Care Provider Encounter Details Date Type Department Care Team (Latest Contact Info) Description 06/07/2007 Outpatient Historical [facility] Gen Spec Surg [address] 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
--- OUTSIDE RECORDS SUMMARY | 2025-09-13 00:37 | XMS_ITS | Encounter Summary ---
Author Organization [facility] Address [address] [place] [address] Care Team Providers Care Hay Chopper Name Role Phone Adrienne March DO Primary Care Provider Encounter Details Date Type Department Care Team (Latest Contact Info) Description 03/08/2007 Outpatient Historical [facility] Plastic Surgery 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
--- OUTSIDE RECORDS SUMMARY | 2025-09-13 00:37 | XMS_ITS | Encounter Summary ---
Author Organization [facility] Address [address] [place] [address] Care Team Providers Care Dog Groomer Name Role Phone Adrienne March DO Primary Care Provider Encounter Details Date Type Department Care Team (Latest Contact Info) Description 08/18/2001 Outpatient [facility] Podiat[facility] [place] [address] [place] [phone] Abel Hurtado, DPM NO ADDRESS ON FILE Pain in limb (Primary Dx) Social History Tobacco Use Types Packs/Day Years Used Date Smoking Tobacco: Never Assessed Comments Unknown Sex and Gender Information Value Date Recorded Sex Assigned at Not on file 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
--- OUTSIDE RECORDS SUMMARY | 2025-09-13 00:37 | XMS_ITS | Encounter Summary ---
Author Organization 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
--- OUTSIDE RECORDS SUMMARY | 2025-09-13 00:37 | XMS_ITS | Encounter Summary ---
Author Organization [facility] Address [address] [place] [address] Care Team Providers Care Director Consumer Affairs Name Role Phone Adrienne March Primary Care Provider Encounter Details Date Type Department Care Team (Late st Contact Info) Description 02/15/2007 Inpatient Historical [facility] Ketan Lew MD [address] [address] Posttraumatic Wound Infection not Elsewhere Classified (Primary Dx) Social History Tobacco Use Types Packs/Day Years Used Date Smoking Tobacco: Never Assessed Comments Unknown Sex and Gender Information Value Date Recorded Sex Assigned at Not on file 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 Gender Identity Not on file Sexual [...] OF CARE TESTING Edited Performing Organization Address [facility] Phone Number INTERFACE SYSTEM Refer to clinic/hospital department * (ABNORMAL) POC GLUCOSE (02/21/2007 6:12 AM CDT) GLUCOSE POC 116(H) 60 - 100 mg/dL INTERFACE SYSTEM 02/21/2007 6:12 AM CDT us Ketan Lew MD POINT OF CARE TESTING Edited Performing Organization Address [facility] Phone Number INTERFACE SYSTEM Refer to clinic/hospital department * (ABNORMAL) POC GLUCOSE (02/20/2007 9:07 PM CDT) GLUCOSE POC 141(H) 60 - 100 mg/dL INTERFACE SYSTEM 02/20/2007 9:07 PM CDT us Ketan Lew MD POINT OF CARE TESTING Edited Performing Organization Address [facility] Phone Number INTERFACE SYSTEM Refer to clinic/hospital department * (ABNORMAL) POC GLUCOSE (02/20/2007 5:32 PM CDT) GLUCOSE POC 102(H) 60 - 100 mg/dL INTERFACE SYSTEM 02/20/2007 5:32 PM CDT us Ketan Lew MD POINT OF CARE TESTING Edited Performing Organization Address [facility] Phone Number INTERFACE SYSTEM Refer to clinic/hospital department * (ABNORMAL) POC GLUCOSE (02/20/2007 11:55 AM CDT) GLUCOSE POC 55(L) 60 - 100 mg/dL INTERFACE SYSTEM 02/20/2007 11:5 5 AM CDT us Ketan Lew MD POINT OF CARE TESTING Edited Performing Organization Address [facility] de Phone Number INTERFACE SYSTEM Refer to clinic/hospital department * (ABNORMAL) POC GLUCOSE (02/20/2007 6:25 AM CDT) GLUCOSE POC 119(H) 60 - 100 mg/dL INTERFACE SYSTEM 02/20/2007 6:25 AM CDT us Ketan Lew MD POINT OF CARE TESTING Edited Performing Organization Address [facility] Phone Number INTERFACE SYSTEM Refer to clinic/hospital department * (ABNORMAL) POC GLUCOSE (02/19/2007 8:48 PM CDT) GLUCOSE POC 115(H) 60 - 100 mg/dL INTERFACE SYSTEM 02/19/2007 8:48 PM CDT us Ketan Lew MD POINT OF CARE TESTING Edited Performing Organization Address [facility] de Phone Number INTERFACE SYSTEM Refer to clinic/hospital department * (ABNORMAL) POC GLUCOSE (02/19/2007 5:23 PM CDT) GLUCOSE POC 108(H) 60 - 100 mg/dL INTERFACE SYSTEM 02/19/2007 5:23 PM CDT us Ketan Lew MD POINT OF CARE TESTING Edited Performing Organization Address [facility] de Phone Number INTERFACE SYSTEM Refer to clinic/hospital department * POC GLUCOSE (02/19/2007 11:35 AM CDT) GLUCOSE POC 75 60 - 100 mg/dL INTERFACE SYSTEM 02/19/2007 11:3 5 AM CDT us Ketan Lew MD POINT OF CARE TESTING Edited Performing Organization Address City/[facility] de Phone Number INTERFACE SYSTEM Refer to clinic/hospital department * (ABNORMAL) POC GLUCOSE (02/19/2007 7:12 AM CDT) GLUCOSE POC 123(H) 60 - 100 mg/dL INTERFACE SYSTEM 02/19/2007 7:12 AM CDT us Ketan Lew MD POINT OF CARE TESTING Edited Performing Organization Address [facility] Phone Number INTERFACE SYSTEM Refer to clinic/hospital department * (ABNORMAL) POC GLUCOSE (02/18/2007 9:23 PM CDT) GLUCOSE POC 158(H) 60 - 100 mg/dL INTERFACE SYSTEM 02/18/2007 9:23 PM CDT us Ketan Lew MD POINT OF CARE TESTING Edited Performing Organization Address [facility] Phone Number INTERFACE SYSTEM Refer to clinic/hospital department * POC GLUCOSE (02/18/2007 5:26 PM CDT) GLUCOSE POC 87 60 - 100 mg/dL INTERFACE SYSTEM 02/18/2007 5:26 PM CDT us Ketan Lew MD POINT OF CARE TESTING Edited Performing Organization Address [facility] Phone Number INTERFACE SYSTEM Refer to clinic/hospital department * POC GLUCOSE (02/18/2007 11:31 AM CDT) GLUCOSE POC 93 60 - 100 mg/dL INTERFACE SYSTEM 02/18/2007 11:3 1 AM CDT us Ketan Lew MD POINT OF CARE TESTING Edited Performing Organization Address City/[facility] de Phone Number INTERFACE SYSTEM Refer to clinic/hospital department * (ABNORMAL) POC GLUCOSE (02/18/2007 6:23 AM CDT) GLUCOSE POC 125(H) 60 - 100 mg/dL INTERFACE SYSTEM 02/18/2007 6:23 AM CDT us Ketan Lew MD POINT OF CARE TESTING Edited Performing Organization Address [facility] de Phone Number INTERFACE SYSTEM Refer to clinic/hospital department * (ABNORMAL) POC GLUCOSE (02/17/2007 8:10 PM CDT) GLUCOSE POC 182(H) 60 - 100 mg/dL INTERFACE SYSTEM 02/17/2007 8:10 PM CDT us Ketan Lew MD POINT OF CARE TESTING Edited Performing Organization Address [facility] de Phone Number INTERFACE SYSTEM Refer to clinic/hospital department * (ABNORMAL) POC GLUCOSE (02/17/2007 4:41 PM CDT) GLUCOSE POC 122(H) 60 - 100 mg/dL INTERFACE SYSTEM 02/17/2007 4:41 PM CDT us Ketan Lew MD POINT OF CARE TESTING Edited Performing Organization Address [facility] de Phone Number INTERFACE SYSTEM Refer to clinic/hospital department * (ABNORMAL) POC GLUCOSE (02/17/2007 11:02 AM CDT) GLUCOSE POC 115(H) 60 - 100 mg/dL INTERFACE SYSTEM 02/17/2007 11:0 2 AM CDT us Ketan Lew MD POINT OF CARE TESTING Edited Performing Organization Address [facility] de Phone Number INTERFACE SYSTEM Refer to clinic/hospital department * (ABNORMAL) POC GLUCOSE (02/17/2007 5:54 AM CDT) GLUCOSE POC 147(H) 60 - 100 mg/dL INTERFACE SYSTEM 02/17/2007 5:54 AM CDT us Ketan Lew MD POINT OF CARE TESTING Edited Performing Organization Address City/[facility] de Phone Number INTERFACE SYSTEM Refer to clinic/hospital department * (ABNORMAL) POC GLUCOSE (02/16/2007 8:30 PM CDT) GLUCOSE POC 121(H) 60 - 100 mg/dL INTERFACE SYSTEM 02/16/2007 8:30 PM CDT us Ketan Lew MD POINT OF CARE TESTING Edited Performing Organization Address [facility] Phone Number INTERFACE SYSTEM Refer to clinic/hospital department * (ABNORMAL) POC GLUCOSE (02/16/2007 11:12 AM CDT) GLUCOSE POC 117(H) 60 - 100 mg/dL INTERFACE SYSTEM 02/16/2007 11:1 2 AM CDT us Ketan Lew MD POINT OF CARE TESTING Edited Performing Organization Address [facility] Phone Number INTERFACE SYSTEM Refer to clinic/hospital department * (ABNORMAL) POC GLUCOSE (02/16/2007 6:26 AM CDT) GLUCOSE POC 128(H) 60 - 100 mg/dL INTERFACE SYSTEM 02/16/2007 6:26 AM CDT us Ketan Lew MD POINT OF CARE TESTING Edited Performing Organization Address [facility] Phone Number INTERFACE SYSTEM [...] Goal INR 3.0; range 2.5 - 3.5 POST-NC Goal INR 2.5; range 2.0 - 3.0 [...] HEMATOLOGY ORDERABLES Edit ed Performing Organization Address City/State/[facility] Co de Phone Number INTERFACE SYSTEM Refer to clinic/hospital department documented in this encounter Visit Diagnoses Diagnosis Posttraumatic wound infection not elsewhere classified- Primary documented in this encounter Care Teams Director Consumer Affairs Relationship Specialty Start Date End Date Adrienne March DO [address] [place] [phone] PCP - General Family Practice 06/30/10 documented as of this encounter
--- OUTSIDE RECORDS SUMMARY | 2025-09-13 00:37 | XMS_ITS | Encounter Summary ---
Author Organization [facility] Address [address] [place] [address] Care Team Providers Care Lacquer Maker Name Role Phone Adrienne March DO Primary Care Provider Encounter Details Date Type Department Care Team (Late st Contact Info) Description 09/28/2007 Outpatient Historical [facility] Medicine- [place] [address] [place] [address] Alexei Elizabeth MD [address] [place] [address] Social History Tobacco Use Types Packs/Day Years Used Date Smoking Tobacco: Never Assessed Comments Unknown Sex and Gender Information Value Date Recorded Sex Assigned at Not on file 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
--- OUTSIDE RECORDS SUMMARY | 2025-09-13 00:37 | XMS_ITS | Encounter Summary ---
Author Organization [facility] Address [address] [place] [address] Care Team Providers Care Sheet Hanger Name Role Phone Adrienne March DO Primary Care Provider Encounter Details Date Type Department Care Team (Latest Contact Info) Description 03/08/2007 Outpatient Historical [facility] Gen Spec Surg [place] 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
--- OUTSIDE RECORDS SUMMARY | 2025-09-13 00:37 | XMS_ITS | Encounter Summary ---
Author Organization [facility] Address [address] 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
--- OUTSIDE RECORDS SUMMARY | 2025-09-13 00:37 | XMS_ITS | Encounter Summary ---
Author Organization [facility] Address [address] [place] [address] Care Team Providers Care Pattern Repair Person Name Role Phone Adrienne March DO Primary Care Provider Encounter Details Date Type Department Care Team (Latest Contact Info) Description 10/26/2003 Outpatient [facility] [address] [place] [address] [place] [address] [address] Jose Luis Mcmillan MD [address] [place] [address] PAIN IN LIMB (Primary Dx) Social History Tobacco Use Types Packs/Day Years Used Date Smoking Tobacco: Never Assessed Comments Unknown Sex and Gender Information Value Date Recorded Sex Assigned at Not on file 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
--- OUTSIDE RECORDS SUMMARY | 2025-09-13 00:37 | XMS_ITS | Encounter Summary ---
Author Organization [facility] Address [address] [place] [address] Care Team Providers Care Follow Up Manager Name Role Phone Adrienne March DO Primary Care Provider Encounter Details Date Type Department Care Team (Late st Contact Info) Description 03/25/2020 Ancillary Orders [facility] Medicine [place] [address] [place] [address] Adrienne March DO [address] [place] [address] Crushing injury of left elbow, initial encounter Social History Tobacco Use Types Packs/Day Years Used Date Smoking Tobacco: Never Smokeless Tobacco: Never Alcohol Use Standard Drinks/Week Comments No 0 (1 standard drink = 0.6 oz pur e alcohol) Comments No Sex and Gender Information Value Date Recorded Sex Assigned at Not on file 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 [id number] Narrative 03/25/2020 2:46 PM CDT Exam: XR [...] without evidence of an acute osseous abnormality. [id number] Adrienne March DO DIAGNOSTIC IMAGING ORDERABL ES Final Result documented in this encounter Visit Diagnoses Diagnosis Crushing injury of left elbow, initial encounter Crushing injury of left elbow, initial encounter documented in this encounter Care Teams Follow Up Manager Relationship Specialty Start Date End Date Adrienne March DO [address] [place] [address] PCP - General Family Practice 06/30/10 documented as of this encounter
--- OUTSIDE RECORDS SUMMARY | 2025-09-13 00:37 | XMS_ITS | Encounter Summary ---
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
--- OUTSIDE RECORDS SUMMARY | 2025-09-13 00:37 | XMS_ITS | Encounter Summary ---
Author Organization [facility] Address [address] [place] [address] Care Team Providers Care Cash Management Specialist Name Role Phone Adrienne March DO Primary Care Provider Encounter Details Date Type Department Care Team (Late st Contact Info) Description 09/06/2007 Outpatient Historical [facility] Gen Spec Surg [place] [address] 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
--- OUTSIDE RECORDS SUMMARY | 2025-09-13 00:37 | XMS_ITS | Encounter Summary ---
Author Organization [facility] Address [address] [place]: [place] [address] Care Team Providers Care Furniture Mover Name Role Phone Adrienne March DO Primary Care Provider +1- [phone] Encounter Details Date Type Department Care Team (Late st Contact Info) Description 07/08/2001 Outpatient Historical Abel Hurtado, DPM NO ADDRESS ON FILE Social History Tobacco Use Types Packs/Day Years Used Date Smoking Tobacco: Never Assessed Comments Unknown Sex and Gender Information Value Date Recorded Sex Assigned at Not on file Legal Sex Female 3:34 AM TRANSITION MANAGER Gender Identity Not on file Sexual Orientation Not on file documented as of this encounter Plan of Treatment Not on file documented as of this encounter Visit Diagnoses Not on filedocumented in this encounter Care Teams Furniture Mover Relationship Specialty Start Date End Date Adrienne March DO [address] [facility] [place] [address] PCP - General Family Practice 06/30/10 documented as of this encounter
--- OUTSIDE RECORDS SUMMARY | 2025-09-13 00:37 | XMS_ITS | Encounter Summary ---
Author Organization [facility] Address [address] [place] [address] Care Team Providers Care Cabinet Mounter Name Role Phone Adrienne March DO Primary Care Provider Encounter Details Date Type Department Care Team (Latest Contact Info) Description 10/26/2001 Outpatient [facility] [place] [address] [place] [address] Abel Hurtado, DPM NO ADDRESS ON FILE Pain in limb (Primary Dx) Social History Tobacco Use Types Packs/Day Years Used Date Smoking Tobacco: Never Assessed Comments Unknown Sex and Gender Information Value Date Recorded Sex Assigned at Not on file Legal Sex Female 3:34 AM TEAM PRIMARY CARE PHYSICIAN Gender Identity Not on file Sexual Orientation Not on file documented as of this encounter Plan of Treatment Not on file documented as of this encounter Visit Diagnoses Diagnosis Pain in limb- Primary Pain in soft tissues of limb documented in this encounter Care Teams Cabinet Mounter Relationship Specialty Start Date End Date Adrienne March DO [address] [place] [address] PCP - General Family Practice 06/30/10 documented as of this encounter
--- OUTSIDE RECORDS SUMMARY | 2025-09-13 00:37 | XMS_ITS | Encounter Summary ---
Author Organization [facility] Address [address] [place] [address] Care Team Providers Care Carbon Cleaner Name Role Phone Adrienne March DO Primary Care Provider [phone] Encounter Details Date Type Department Care Team (Late st Contact Info) Description 09/30/2007 Outpatient Historical [facility] Medicine- [place] [address] [place] [address] Alexei Elizabeth MD [address] [place] [address] Social History Tobacco Use Types Packs/Day Years Used Date Smoking Tobacco: Never Assessed Comments Unknown Sex and Gender Information Value Date Recorded Sex Assigned at Not on file Legal Sex Female 3:34 AM STEAM HOIST OPERATOR Gender Identity Not on file Sexual Orientation Not on file documented as of this encounter Plan of Treatment Not on file documented as of this encounter Visit Diagnoses Not on filedocumented in this encounter Care Teams Carbon Cleaner Relationship Specialty Start Date End Date Adrienne March DO [address] [place] [address] PCP - General Family Practice 06/30/10 documented as of this encounter
--- OUTSIDE RECORDS SUMMARY | 2025-09-13 00:37 | XMS_ITS | Encounter Summary ---
Author Organization [facility] Address [address] [place] [address] Care Team Providers Care Battery Mechanic Name Role Phone Adrienne March DO Primary Care Provider +1- [phone] Encounter Details Date Type Department Care Team (Latest Contact Info) Description 02/13/2003 Outpatient Historical [facility] Jose Luis Mcmillan MD [address] [place] [address] CERVICALGIA (Primary Dx); Cervical disc displacmnt; Cervical spondylosis; Cervical spinal stenosis Social History Tobacco Use Types Packs/Day Years Used Date Smoking Tobacco: Never Assessed Comments Unknown Sex and Gender Information Value Date Recorded Sex Assigned at Not on file Legal Sex Female 3:34 AM SUPERVISOR COMPOSING ROOM Gender Identity Not on file Sexual Orientation Not on file documented as of this encounter Plan of Treatment Not on file documented as of this encounter Visit Diagnoses Diagnosis Cervicalgia- Primary 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
--- OUTSIDE RECORDS SUMMARY | 2025-09-13 00:37 | XMS_ITS | Encounter Summary ---
Author Organization [facility] Address [address] [place] [address] Care Team Providers Care Strategy Planning Consultant Name Role Phone Adrienne March DO Primary Care Provider Encounter Details Date Type Department Care Team (Latest Contact Info) Description 03/21/2003 Outpatient Historical [facility] [address] [place] [address] [place] [address] Wilfredo Michel MD [address] [phone] CERVICALGIA (Primary Dx) Social History Tobacco Use Types Packs/Day Years Used Date Smoking Tobacco: Never Assessed Comments Unknown Sex and Gender Information Value Date Recorded Sex Assigned at Not on file Legal Sex Female 3:34 AM SOFT MUD MOLDER Gender Identity Not on file Sexual Orientation Not on file documented as of this encounter Plan of Treatment Not on file documented as of this encounter Visit Diagnoses Diagnosis Cervicalgia- Primary documented in this encounter Care Teams Strategy Planning Consultant Relationship Specialty Start Date End Date Adrienne March DO [address] [place] [address] PCP - General Family Practice 06/30/10 documented as of this encounter
--- OUTSIDE RECORDS SUMMARY | 2025-09-13 00:37 | XMS_ITS | Encounter Summary ---
Author Organization [facility] Address [address] [place] [address] Care Team Providers Care Can Patcher Name Role Phone Adrienne March DO Primary Care Provider Encounter Details Date Type Department Care Team (Latest Contact Info) Description 05/17/2007 Outpatient Historical [facility] Gen Spec Surg [place] [address] [place] [address] Ketan Lew MD [address] [place] [address] Ulcer of Lower Limb, Unspecified (CMS/HCC) (Primary Dx); Gangrene (CMS/HCC); Other Postoperative Infection; Follow-Up Examination, Following Unspecified Surgery Social History Tobacco Use Types Packs/Day Years Used Date Smoking Tobacco: Never Assessed Comments Unknown Sex and Gender Information Value Date Recorded Sex Assigned at Not on file Legal Sex Female 3:34 AM GROUND WATER CONTRACTOR Gender Identity Not on file Sexual Orientation Not on file documented as of this encounter Plan of Treatment Not on file documented as of this encounter Visit Diagnoses Diagnosis Ulcer of lower limb, unspecified- Primary Gangrene (CMS/HCC) Gangrene Other postoperative infection Follow-up examination, following unspecified surgery documented in this encounter Care Teams Can Patcher Relationship Specialty Start Date End Date Adrienne March DO [address] [place] [phone] PCP - General Family Practice 06/30/10 documented as of this encounter
--- OUTSIDE RECORDS SUMMARY | 2025-09-13 00:37 | XMS_ITS | Encounter Summary ---
Author Organization [facility] Address [address] [place]: [place] [address] Care Team Providers Care Optical Brightener Maker Helper Name Role Phone Adrienne March DO Primary Care Provider +1- [phone] Encounter Details Date Type Department Care Team (Late st Contact Info) Description 07/15/2001 Outpatient Historical Umang Urrutia MD [address] [place] [address] Social History Tobacco Use Types Packs/Day Years Used Date Smoking Tobacco: Never Assessed Comments Unknown Sex and Gender Information Value Date Recorded Sex Assigned at Not on file Legal Sex Female 3:34 AM HAND SOLE SEWER Gender Identity Not on file Sexual Orientation Not on file documented as of this encounter Plan of Treatment Not on file documented as of this encounter Visit Diagnoses Not on filedocumented in this encounter Care Teams Optical Brightener Maker Helper Relationship Specialty Start Date End Date Adrienne March DO [address] [place] [address] PCP - General Family Practice 06/30/10 documented as of this encounter
--- OUTSIDE RECORDS SUMMARY | 2025-09-13 00:37 | XMS_ITS | Encounter Summary ---
Author Organization [facility] Address [address] [place] [address] Care Team Providers Care Automotive Sales Executive Name Role Phone Adrienne March DO Primary Care Provider +1- [phone] Encounter Details Date Type Department Care Team (Latest Contact Info) Description 03/27/2003 Outpatient Historical [facility] Jose Luis Mcmillan MD [address] [place] [address] Cervical spondylosis (Primary Dx); CERVICALGIA Social History Tobacco Use Types Packs/Day Years Used Date Smoking Tobacco: Never Assessed Comments Unknown Sex and Gender Information Value Date Recorded Sex Assigned at Not on file Legal Sex Female 3:34 AM MANUFACTURING INSPECTOR Gender Identity Not on file Sexual Orientation Not on file documented as of this encounter Plan of Treatment Not on file documented as of this encounter Visit Diagnoses Diagnosis Cervical spondylosis- Primary Cervical spondylosis without myelopathy Cervicalgia documented in this encounter Care Teams Automotive Sales Executive Relationship Specialty Start Date End Date Adrienne March DO [address] [place] [address] PCP - General Family Practice 06/30/10 documented as of this encounter
--- OUTSIDE RECORDS SUMMARY | 2025-09-13 00:37 | XMS_ITS | Encounter Summary ---
Author Organization [facility] Address [address] [place] [address] Care Team Providers Care Gas Operations Superintendent Name Role Phone Adrienne March DO Primary Care Provider +1- [phone] Encounter Details Date Type Department Care Team (Late st Contact Info) Description 04/17/2003 Outpatient Historical [facility] Social History Tobacco Use Types Packs/Day Years Used Date Smoking Tobacco: Never Assessed Comments Unknown Sex and Gender Information Value Date Recorded Sex Assigned at Not on file Legal Sex Female 3:34 AM DOPE HEATER Gender Identity Not on file Sexual Orientation Not on file documented as of this encounter Plan of Treatment Not on file documented as of this encounter Visit Diagnoses Not on filedocumented in this encounter Care Teams Gas Operations Superintendent Relationship Specialty Start Date End Date Adrienne March DO [address] [place] [address] PCP - General Family Practice 06/30/10 documented as of this encounter
--- OUTSIDE RECORDS SUMMARY | 2025-09-13 00:37 | XMS_ITS | Encounter Summary ---
Author Organization [facility] Address [address] [place] [address] Care Team Providers Care Post Doctoral Researcher Name Role Phone Adrienne March DO Primary Care Provider [phone] Encounter Details Date Type Department Care Team (Latest Contact Info) Description 04/19/2007 Outpatient Historical [facility] Gen Spec Surg [place] 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
--- OUTSIDE RECORDS SUMMARY | 2025-09-13 00:37 | XMS_ITS | Encounter Summary ---
Author Organization [facility] Address [address] [place] [address] Care Team Providers Care Optical Effects Line Up Person Name Role Phone Adrienne March DO Primary Care Provider Encounter Details Date Type Department Care Team (Late st Contact Info) Description 11/03/2024 Lab Requisition [facility] [place] [address] [place] [address] December, SAFETY AND HEALTH MANAGER [address] [place] [address] COVID-19 Social History Tobacco Use [...] on file Legal Sex Female 6:27 AM SENIOR ABAP DEVELOPER Gender Identity Not on file Sexual Orientation Not on file documented as of this encounter Plan of Treatment Upcoming Encounters Date Type Department Care Team (Late st Contact Info) Description 10/10/2025 10:40 AM SENIOR ABAP DEVELOPER Procedure visit [facility] [place] [address] [place] [address] Davi Ferguson MD [address] [place] [address] 10/25/2025 1:40 PM SENIOR ABAP DEVELOPER Office Visit [facility] [address] [place] [address] Adrienne March, DO [address] [place] [address] 01/23/2026 11:20 AM CDT Office Visit [facility] [address] [place] [address] Adrienne March, DO [address] [place] [address] 04/22/2026 1:20 PM CDT Office Visit [facility] [address] [place] [address] Cori Ochoa, SAFETY AND HEALTH MANAGER [address] [place] [address] documented as of this encounter Procedures Procedure Name Priority Date/Time Associated Diagnosis Comments CBC WITH DIFFERENTIAL Stat 11/03/2024 12:15 PM SENIOR ABAP DEVELOPER COVID-19 documented in this encounter Results * (ABNORMAL) CBC WITH DIFFERENTIAL (11/03/2024 12:15 PM SENIOR ABAP DEVELOPER) WBC 9.6 4.0 - 10.0 K/uL 11/03/2024 12:24 PM [facility] RBC 3.54(L) 3.93 - 5.22 M/uL 11/03/2024 12:24 PM [facility] HEMOGLOBIN 10.9(L) 11.2 - 15.7 g/dL 11/03/2024 12:24 PM [facility] HEMATOCRIT 33.6(L) 34.1 - 44.9 % 11/03/2024 12:24 PM [facility] MCV 94.9(H) 79.4 - 94.8 fL 11/03/2024 12:24 PM [facility] MCH 30.8 25.6 - 32.2 pg 11/03/2024 12:24 PM [facility] MCHC 32.4 32.2 - 35.5 g/dL 11/03/2024 12:24 PM [facility] RDW 13.8 11.0 - 14.5 % 11/03/2024 12:24 PM [facility] RDW-STDEV 47.8 36.9 - 56.9 fL 11/03/2024 12:24 PM [facility] PLATELETS 256 163 - 337 K/uL 11/03/2024 12:24 PM [facility] MPV 8.2(L) 10.0 - 14.8 fL 11/03/2024 12:24 PM [facility] NEUTROPHILS 60 34 - 71 % 11/03/2024 12:24 PM [facility] LYMPHOCYTES 17(L) 19 - 52 % 11/03/2024 12:24 PM [facility] MONOCYTES 8 5 - 13 % 11/03/2024 12:24 PM [facility] EOSINOPHILS 15(H) 1 - 6 % 11/03/2024 12:24 PM [facility] BASOPHILS 1 0 - 1 % 11/03/2024 12:24 PM [facility] IMMATURE GRANULOCYTES 1 % 11/03/2024 12:24 PM [facility] NEUTROPHIL ABSOLUTE 5.71 1.56 - 6.13 K/uL 11/03/2024 12:24 PM [facility] LYMPHOCYTE ABSOLUTE 1.60 1.20 - 3.40 K/uL 11/03/2024 12:24 PM [facility] MONOCYTE ABSOLUTE 0.72(H) 0.24 - 0.36 K/uL 11/03/2024 12:24 PM [facility] EOSINOPHIL ABSOLUTE 1.46(H) 0.04 - 0.36 K/uL 11/03/2024 12:24 PM [facility] BASOPHILS ABSOLUTE 0.06 0.01 - 0.08 K/uL 11/03/2024 12:24 PM [facility] IMMATURE GRANULOCYTES ABSOLUTE 0.05 K/uL 11/03/2024 12:24 PM [facility] Blood Collection / Unknown 11/03/2024 12:15 PM SENIOR ABAP DEVELOPER 11/03/2024 12:21 PM SENIOR ABAP DEVELOPER December SAFETY AND HEALTH MANAGER HEMATOLOGY ORDERABLES Final Resu lt [facility] CLIA # [id number] [address] [place] [address] documented in this encounter Visit Diagnoses Diagnosis COVID-19 documented in this encounter Additional Health Concerns Infection Onset Date Last Indicated Resolved Time COVID-19 10/30/2024 10/30/2024 11/19/2024 1:16 AM SENIOR ABAP DEVELOPER documented as of this encounter Care Teams Optical Effects Line Up Person Relationship Specialty Start Date End Date Adrienne March DO [address] [place] [address] PCP - General Family Practice 06/30/10 documented as of this encounter
--- OUTSIDE RECORDS SUMMARY | 2025-09-13 00:37 | XMS_ITS | Encounter Summary ---
Author Organization [facility] Address [address] [place] [address] Care Team Providers Care Polisher Balance Screwhead Name Role Phone Adrienne March DO Primary Care Provider Encounter Details Date Type Department Care Team (Late st Contact Info) Description 09/29/2007 Outpatient Historical [facility] [place] [address] [place] [address] Alexei Elizabeth MD [address] [place] [address] Social History Tobacco Use Types Packs/Day Years Used Date Smoking Tobacco: Never Assessed Comments Unknown Sex and Gender Information Value Date Recorded Sex Assigned at Not on file Legal Sex Female 3:34 AM MANAGER CARGO Gender Identity Not on file Sexual Orientation Not on file documented as of this encounter Plan of Treatment Not on file documented as of this encounter Visit Diagnoses Not on filedocumented in this encounter Care Teams Polisher Balance Screwhead Relationship Specialty Start Date End Date Adrienne March DO [address] [place] [address] PCP - General Family Practice 06/30/10 documented as of this encounter
--- OUTSIDE RECORDS SUMMARY | 2025-09-13 00:37 | XMS_ITS | Clinical Summary ---
Author Organization [facility] Address [address] [facility] [address] [place] [address] Care Team Providers Care Special Investigator Name Role Phone Unavailable Primary Care Provider Unavailabl e Encounters Date Type Department Care Team Description 08/08/2025 Telephone [facility] [address] [address] Bartolo Stanton MD from Last [...] st Contact Info) Description 10/02/2025 10:30 AM SENIOR COMPENSATION CONSULTANT Office Visit [facility] [address] [place] [address] Bartolo Stanton MD [address] [facility] [address] [place] [address] Health Maintenance Due Date Last [...] patient's age to complete this topic Insurance [facility] ([id number]) Medicaid [place] ([id number])
--- OUTSIDE RECORDS SUMMARY | 2025-09-13 00:37 | XMS_ITS | Encounter Summary ---
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
--- OUTSIDE RECORDS SUMMARY | 2025-09-13 00:37 | XMS_ITS | Encounter Summary ---
Author Organization [facility] Address [address] [place] [address] Care Team Providers Care Home Appraiser Name Role Phone Adrienne March Primary Care Provider Encounter Details Date Type Department Care Team (Latest Contact Info) Description 01/13/2007 Outpatient Historical [facility] Cardiac Anesthesia Associate [address] [place] [address] López Harry MD NO ADDRESS ON FILE Unspecified Chest Pain (Primary Dx) Social History Tobacco Use Types Packs/Day Years Used Date Smoking Tobacco: Never Assessed Comments Unknown Sex and Gender Information Value Date Recorded Sex Assigned at Not on file Legal Sex Female 3:34 AM GARDE MANAGER Gender Identity Not on file Sexual [...] Goal INR 3.0; range 2.5 - 3.5 POST-DE Goal INR 2.5; range 2.0 - 3.0 [...] HEMATOLOGY ORDERABLES Edite d Performing Organization Address [facility] Phone Number INTERFACE SYSTEM Refer to clinic/hospital department * C-REACTIVE PROTEIN (01/13/2007 6:04 AM CDT) CRP 0.98 0.00 - 1.00 mg/dL INTERFACE SYSTEM 01/13/2007 6:04 AM CDT us López Harry MD CHEMISTRY ORDERABLES Edited Performing Organization Address [facility] Phone Number INTERFACE SYSTEM Refer [...] Primary documented in this encounter Care Teams Home Appraiser Relationship Specialty Start Date End Date Adrienne March DO [address] [place] [address] PCP - General Family Practice 06/30/10 documented as of this encounter
--- OUTSIDE RECORDS SUMMARY | 2025-09-13 00:37 | XMS_ITS | Encounter Summary ---
Author Organization [facility] Address [address] [place] [address] Care Team Providers Care Clinical Pharmacist Name Role Phone Adrienne March DO Primary Care Provider Encounter Details Date Type Department Care Team (Latest Contact Info) Description 03/16/2003 Outpatient [facility] [address] [place] [address] Wilfredo Michel MD [address] [address] BRACHIAL NEURITIS NOS (Primary Dx) Social History Tobacco Use Types Packs/Day Years Used Date Smoking Tobacco: Never Assessed Comments Unknown Sex and Gender Information Value Date Recorded Sex Assigned at Not on file Legal Sex Female 3:34 AM MOTOR SCOOTER MECHANIC Gender Identity Not on file Sexual Orientation Not on file documented as of this encounter Plan of Treatment Not on file documented as of this encounter Visit Diagnoses Diagnosis Brachial neuritis or radiculitis NOS- Primary Brachial neuritis or radiculitis nos documented in this encounter Care Teams Clinical Pharmacist Relationship Specialty Start Date End Date Adrienne March DO [address] [place] [address] PCP - General Family Practice 06/30/10 documented as of this encounter
--- OUTSIDE RECORDS SUMMARY | 2025-09-13 00:37 | XMS_ITS | Encounter Summary ---
Author Organization [facility] Address [address] Murillo: [place] [address] Care Team Providers Care Restaurant General Manager Name Role Phone Adrienne March DO Primary Care Provider +1- [phone] Encounter Details Date Type Department Care Team (Late st Contact Info) Description 11/14/2001 Outpatient Historical Ilana Torres MD [address] [place] [address] Social History Tobacco Use Types Packs/Day Years Used Date Smoking Tobacco: Never Assessed Comments Unknown Sex and Gender Information Value Date Recorded Sex Assigned at Not on file Legal Sex Female 3:34 AM DEBT MANAGEMENT COUNSELOR Gender Identity Not on file Sexual Orientation Not on file documented as of this encounter Plan of Treatment Not on file documented as of this encounter Visit Diagnoses Not on filedocumented in this encounter Care Teams Restaurant General Manager Relationship Specialty Start Date End Date Adrienne March DO [address] [place] [address] PCP - General Family Practice 06/30/10 documented as of this encounter
--- OUTSIDE RECORDS SUMMARY | 2025-09-13 00:37 | XMS_ITS | Encounter Summary ---
Author Organization [facility] Address [address] [place] [address] Care Team Providers Care Clinic Lead Name Role Phone Adrienne March DO Primary Care Provider +1- [phone] Encounter Details Date Type Department Care Team (Latest Contact Info) Description 01/31/2003 Outpatient Historical [facility] Jose Luis Mcmillan MD [address] [place] [address] BRACHIAL NEURITIS NOS (Primary Dx); CERVICALGIA; Cervical spondylosis Social History Tobacco Use Types Packs/Day Years Used Date Smoking Tobacco: Never Assessed Comments Unknown Sex and Gender Information Value Date Recorded Sex Assigned at Not on file 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
--- OUTSIDE RECORDS SUMMARY | 2025-09-13 00:37 | XMS_ITS | Encounter Summary ---
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
--- OUTSIDE RECORDS SUMMARY | 2025-09-13 00:37 | XMS_ITS | Encounter Summary ---
Author Organization [facility] Address [address] [facility] [address] [place] [address] Phone Care Team Providers Care Manager Medical Device Name Role Phone Unavailable Primary Care Provider Unavailabl e Encounter Details Date Type Department Care Team (Late st Contact Info) Description 04/06/2025 Orders Only [facility] [address] [facility] [address] [place] [address] Chronic kidney disease stage 3 [...] st Contact Info) Description 10/02/2025 10:30 AM LAB INSTRUCTOR Office Visit [facility] [address] [place] [address] Bartolo Stanton MD [address] [address] documented as of this encounter Visit Diagnoses Diagnosis 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
--- OUTSIDE RECORDS SUMMARY | 2025-09-13 00:37 | XMS_ITS | Encounter Summary ---
Author Organization [facility] Address [address] [place] [address] Care Team Providers Care Private Investigator Surveillance Name Role Phone Adrienne March Primary Care Provider Encounter Details Date Type Department Care Team (Late st Contact Info) Description 11/15/2007 Outpatient Historical [facility] Gen Spec Surg 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 MILL OPERATOR documented in this encounter Plan of Treatment Not on file documented as of this encounter Visit Diagnoses Not on filedocumented in this encounter Care Teams Private Investigator Surveillance Relationship Specialty Start Date End Date Adrienne March DO [address] [place] [address] PCP - General Family Practice 06/30/10 documented as of this encounter
--- OUTSIDE RECORDS SUMMARY | 2025-09-13 00:37 | XMS_ITS | Encounter Summary ---
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
--- OUTSIDE RECORDS SUMMARY | 2025-09-13 00:37 | XMS_ITS | Encounter Summary ---
Author Organization [facility] Address [address] [place] [address] Care Team Providers Care Tent Finisher Name Role Phone Adrienne March DO Primary Care Provider Encounter Details Date Type Department Care Team (Latest Contact Info) Description 08/06/2005 Outpatient Historical [facility] Orthopedics- 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
--- OUTSIDE RECORDS SUMMARY | 2025-09-13 00:37 | XMS_ITS | Encounter Summary ---
Author Organization [facility] Address [address] [place] [address] Care Team Providers Care Hand Mica Plate Layer Name Role Phone Adrienne March DO Primary Care Provider +1- [phone] Encounter Details Date Type Department Care Team (Late st Contact Info) Description 04/24/2003 Outpatient Historical [facility] Social History Tobacco Use Types Packs/Day Years Used Date Smoking Tobacco: Never Assessed Comments Unknown Sex and Gender Information Value Date Recorded Sex Assigned at Not on file Legal Sex Female 3:34 AM CALL CENTER RN Gender Identity Not on file Sexual Orientation Not on file documented as of this encounter Plan of Treatment Not on file documented as of this encounter Visit Diagnoses Not on filedocumented in this encounter Care Teams Hand Mica Plate Layer Relationship Specialty Start Date End Date Adrienne March DO [address] [place] [address] PCP - General Family Practice 06/30/10 documented as of this encounter
--- OUTSIDE RECORDS SUMMARY | 2025-09-13 00:37 | XMS_ITS | Encounter Summary ---
Author Organization [facility] Address [address] [place] [address] Care Team Providers Care Clip Bolter And Wrapper Name Role Phone Adrienne March DO Primary Care Provider Encounter Details Date Type Department Care Team (Late st Contact Info) Description 02/01/2008 Outpatient Historical [facility] [address] 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
--- OUTSIDE RECORDS SUMMARY | 2025-09-13 00:37 | XMS_ITS | Encounter Summary ---
Author Organization [facility] Address [address] [place] [address] Care Team Providers Care Career Resource Specialist Name Role Phone Adrienne March DO Primary Care Provider Encounter Details Date Type Department Care Team (Latest Contact Info) Description 04/15/2005 Outpatient Historical [facility] Orthopedics- 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
--- OUTSIDE RECORDS SUMMARY | 2025-09-13 00:37 | XMS_ITS | Encounter Summary ---
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
--- OUTSIDE RECORDS SUMMARY | 2025-09-13 00:37 | XMS_ITS | Encounter Summary ---
Author Organization [facility] Address [address] [place] [address] Care Team Providers Care Boiler Plant Worker Name Role Phone Adrienne March DO Primary Care Provider Encounter Details Date Type Department Care Team (Latest Contact Info) Description 11/27/2003 Outpatient [facility] [address] [phone] Jose Luis Mcmillan MD [address] [place] [address] CERVICAL SPONDYLOSIS (Primary Dx) Social History Tobacco Use Types Packs/Day Years Used Date Smoking Tobacco: Never Assessed Comments Unknown Sex and Gender Information Value Date Recorded Sex Assigned at Not on file Legal Sex Female 3:34 AM 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
--- OUTSIDE RECORDS SUMMARY | 2025-09-13 00:37 | XMS_ITS | Encounter Summary ---
Author Organization [facility] Address [address] [place] [address] Care Team Providers Care Clinical Studies Specialist Name Role Phone Adrienne March DO Primary Care Provider Encounter Details Date Type Department Care Team (Latest Contact Info) Description 03/29/2007 Outpatient Historical [facility] Gen Spec Surg [place] [address] [place] [address] Ketan Lew MD [address] [place] [address] Ulcer of Lower Limb, Unspecified (CMS/HCC) (Primary Dx); Gangrene (CMS/HCC); Other Postoperative Infection; Follow-Up Examination, Following Unspecified Surgery Social History Tobacco Use Types Packs/Day Years Used Date Smoking Tobacco: Never Assessed Comments Unknown Sex and Gender Information Value Date Recorded Sex Assigned at Not on file Legal Sex Female 3:34 AM LOSS PREVENTION LEAD Gender Identity Not on file Sexual Orientation Not on file documented as of this encounter Plan of Treatment Not on file documented as of this encounter Visit Diagnoses Diagnosis Ulcer of lower limb, unspecified- Primary Gangrene (CMS/HCC) Gangrene Other postoperative infection Follow-up examination, following unspecified surgery documented in this encounter Care Teams Clinical Studies Specialist Relationship Specialty Start Date End Date Adrienne March DO [address] [phone] PCP - General Family Practice 06/30/10 documented as of this encounter
--- OUTSIDE RECORDS SUMMARY | 2025-09-13 00:37 | XMS_ITS | Encounter Summary ---
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
--- OUTSIDE RECORDS SUMMARY | 2025-09-13 00:37 | XMS_ITS | Encounter Summary ---
Author Organization [facility] Address [address] [place] [address] Care Team Providers Care Director Digital Name Role Phone Adrienne March DO Primary Care Provider Encounter Details Date Type Department Care Team (Late st Contact Info) Description 02/03/2003 Outpatient Historical [facility] Imaging Services [address] [place] [phone] Jose Luis Mcmillan MD [address] [place] [address] Social History Tobacco Use Types Packs/Day Years Used Date Smoking Tobacco: Never Assessed Comments Unknown Sex and Gender Information Value Date Recorded Sex Assigned at Not on file 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
--- OUTSIDE RECORDS SUMMARY | 2025-09-13 00:37 | XMS_ITS | Encounter Summary ---
Author Organization [facility] Address [address] [place] [address] Care Team Providers Care Applied Psychology Teacher Name Role Phone Adrienne March DO Primary Care Provider Encounter Details Date Type Department Care Team (Latest Contact Info) Description 02/25/2006 Outpatient Historical [facility] Orthopedics- [address] [place] [phone] Joses Ferguson MD NO ADDRESS ON FILE Pain in Joint, Pelvic Region and Thigh (Primary Dx) Social History Tobacco Use Types Packs/Day Years Used Date Smoking Tobacco: Never Assessed Comments Unknown Sex and Gender Information Value Date Recorded Sex Assigned at Not on file Legal Sex Female 3:34 AM CORRECTIONAL CAPTAIN Gender Identity Not on file Sexual Orientation Not on file documented as of this encounter Plan of Treatment Not on file documented as of this encounter Visit Diagnoses Diagnosis Pain in joint, pelvic region and thigh- Primary documented in this encounter Care Teams Applied Psychology Teacher Relationship Specialty Start Date End Date Adrienne March DO [address] [place] [phone] PCP - General Family Practice 06/30/10 documented as of this encounter
--- OUTSIDE RECORDS SUMMARY | 2025-09-13 00:37 | XMS_ITS | Encounter Summary ---
Author Organization [facility] Address [address] [place] [address] Care Team Providers Care First Press Operator Name Role Phone Adrienne March DO Primary Care Provider Encounter Details Date Type Department Care Team (Latest Contact Info) Description 06/22/2003 Outpatient Historical [facility] Physical Therapy [address] [place] [address] [place] [phone] Wilfredo Michel MD [address] [phone] CERVICALGIA (Primary Dx) Social History Tobacco Use Types Packs/Day Years Used Date Smoking Tobacco: Never Assessed Comments Unknown Sex and Gender Information Value Date Recorded Sex Assigned at Not on file Legal Sex Female 3:34 AM TOOTH CLERK Gender Identity Not on file Sexual Orientation Not on file documented as of this encounter Plan of Treatment Not on file documented as of this encounter Visit Diagnoses Diagnosis Cervicalgia- Primary documented in this encounter Care Teams First Press Operator Relationship Specialty Start Date End Date Adrienne March DO [address] [place] [address] PCP - General Family Practice 06/30/10 documented as of this encounter
--- OUTSIDE RECORDS SUMMARY | 2025-09-13 00:37 | XMS_ITS | Encounter Summary ---
Author Organization [facility] Address [address] [place] [address] Care Team Providers Care Makeup Editor Name Role Phone Adrienne March DO Primary Care Provider Encounter Details Date Type Department Care Team (Latest Contact Info) Description 03/26/2005 Outpatient Historical [facility] Orthopedics- [address] [place] [phone] Josse Ferguson MD NO ADDRESS ON FILE FX FEMUR SHAFT-CLOSED (CMS/HCC) (Primary Dx); FX LOW RADIUS W ULNA-CLOSE Social History Tobacco Use Types Packs/Day Years Used Date Smoking Tobacco: Never Assessed Comments Unknown Sex and Gender Information Value Date Recorded Sex Assigned at Not on file Legal Sex Female 3:34 AM SUPERVISOR SLATE SPLITTING Gender Identity Not on file Sexual Orientation Not on file documented as of this encounter Plan of Treatment Not on file documented as of this encounter Visit Diagnoses Diagnosis Closed fracture of shaft of femur (CMS/HCC)- Primary Closed fracture of shaft of femur Closed fracture of lower end of radius with ulna documented in this encounter Care Teams Makeup Editor Relationship Specialty Start Date End Date Adrienne March DO [address] [place] [address] PCP - General Family Practice 06/30/10 documented as of this encounter
--- OUTSIDE RECORDS SUMMARY | 2025-09-13 00:37 | XMS_ITS | Encounter Summary ---
Author Organization [facility] Address [address] [place] [address] Care Team Providers Care Mobile Product Manager Name Role Phone Adrienne March DO Primary Care Provider Encounter Details Date Type Department Care Team (Latest Contact Info) Description 05/22/2003 Outpatient Historical [facility] Physical Therapy [address] [place] [address] [place] [phone] Wilfredo Michel MD [address] [phone] CERVICALGIA (Primary Dx) Social History Tobacco Use Types Packs/Day Years Used Date Smoking Tobacco: Never Assessed Comments Unknown Sex and Gender Information Value Date Recorded Sex Assigned at Not on file Legal Sex Female 3:34 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
--- OUTSIDE RECORDS SUMMARY | 2025-09-13 00:37 | XMS_ITS | Encounter Summary ---
Author Organization [facility] Address [address] [place] [address] Care Team Providers Care Public Events Facilities Rental Manager Name Role Phone AncaAdrienne forbes Primary Care Provider Encounter Details Date Type Department Care Team (Late st Contact Info) Description 01/24/2008 Emergency [facility] Emergency Department [address] 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 Probable contamination at collection. If clinically indicated, please submit an appropriately collected specimen. INTERFACE SYSTEM 01/24/2008 9:49 PM CDT 01/24/2008 9:49 PM CDT us John Power MD MICROBIOLOGY - GENERAL ORD ERABLES Final Result INTERFACE SYSTEM Refer to clinic/hospital department * (ABNORMAL) POC GLUCOSE (01/24/2008 6:31 PM CDT) Pathologist [facility] Emergency Department GLUCOSE POC 366(H) 60 - 100 mg/dL [facility] COMMENT POC Called M[facility]D. [facility] Venous blood specimen (specimen) 01/24/2008 6:31 PM CDT 01/25/2008 7:33 AM CDT us John Power MD POINT OF CARE TESTING Rosetta l Result [facility] [address] [place] [address] * (ABNORMAL) URINALYSIS (01/24/2008 4:54 PM CDT) PH UA 6.5 5.0 - 9.0 [facility] BLOOD UA NEGATIVE NEGATIVE [facility] LEUKOCYTE ESTERASE UA NEGATIVE NEGATIVE [facility] UROBILINOGEN UA 0.[address] [facility] COLOR UA Yellow Straw [facility] PROTEIN UA NEGATIVE NEGATIVE [facility] SPECIFIC GRAVITY UA 1.010 <=1.005 [facility] NITRITE UA NEGATIVE NEGATIVE [facility] BILIRUBIN UA NEGATIVE NEGATIVE [facility] CLARITY UA SL CLOUDY Clear [facility] GLUCOSE UA >=1000 mg/dl(A) NEGATIVE [facility] KETONES UA NEGATIVE NEGATIVE [facility] MICRO EXAM Yes(A) No [facility] Urine specimen (specimen) 01/24/2008 4:54 PM CDT 01/24/2008 4:54 PM CDT John Power MD URINE ORDERABLES Final Res ult Performing Organization Address [facility] de Phone Number [facility] [address] [place] [address] * (ABNORMAL) URINALYSIS MICROSCOPY ONLY (01/24/2008 4:54 PM CDT) RBC UA None Seen 0 - 2 [facility] HYALINE CAST None Seen 0 - 2 [facility] BACTERIA UA Few(A) None Seen [facility] WBC URINE 0-2 0 - 2 [facility] Urine specimen (specimen) 01/24/2008 4:54 PM CDT 01/24/2008 4:54 PM CDT John Power MD URINE ORDERABLES Final Res ult Performing Organization Address [facility] de Phone Number [facility] [address] [place] [address] * CT HEAD WO CONTRAST (01/24/2008 2:43 [...] CDT) TSH 2.930 0.350 - 5.500 uIU/ml [facility] Blood specimen (specimen) 01/24/2008 2:06 PM CDT 01/24/2008 2:55 PM CDT us John Power MD CHEMISTRY ORDERABLES Final Result [facility] [address] [place] [address] * T4 FREE (01/24/2008 2:06 PM CDT) [facility] T4 FREE 0.90 0.89 - 1.76 ng/dL [facility] Blood specimen (specimen) 01/24/2008 2:06 PM CDT 01/24/2008 2:55 PM CDT John Power MD CHEMISTRY ORDERABLES Final Result Performing Organization Address [facility] de Phone Number [facility] [address] [place] [address] * (ABNORMAL) BASIC METABOLIC PANEL (01/24/2008 2:06 PM CDT) [facility] ANION GAP 11 9 - 20 mEq/L [facility] SODIUM 138 136 - 145 mEq/L [facility] BUN 15 7 - 17 mg/dL [facility] CO2 31 22 - 32 mmol/l [facility] POTASSIUM 4.9 3.5 - 5.0 mEq/L [facility] Comment: Specimen slightly hemolyzed OSMOLALITY, CALCULATED 308(H) 275 - 295 mOsm/Kg [facility] CREATININE 1.3(H) 0.7 - 1.2 mg/dL [facility] CALCIUM 9.4 8.4 - 10.5 mg/dL [facility] GLUCOSE 490(H) 70 - 110 mg/dL [facility] CHLORIDE 101 95 - 110 mEq/L [facility] Blood specimen (specimen) 01/24/2008 2:06 PM CDT 01/24/2008 2:13 PM CDT us Carlos A Henao MD CHEMISTRY ORDERABLES Final Resul t Performing Organization Address [facility] Co de Phone Number [facility] [address] [place] [address] * PT AND APTT (01/24/2008 2:06 PM CDT) PTT 27.0 22.5 - 36.[address] [facility] Comment: Therapeutic Range: Hi-level PE/DVT heparin protocol 80.1 -95.0 sec Lo-level PE/DVT heparin protocol 67.1 - 80.0 sec Cardiac Heparin Protocol 67.1 - 85.0 sec Neuro Heparin Protocol 67.1 - 80.0 sec As of 12/08/2007 note change in APTT Normal Range. PROTIME 13.3 12.8 - 15.[address] [facility] Comment:As of 2007 not e change in normal range. INR 0.9 [facility] Comment: Expected Values for INR: DVT/PE Goal INR 2.5; range 2.0 - 3.0 Valve Replacement Tissue Goal INR 2.5; range 2.0 - 3.0 Mechanical Goal INR 3.0; range 2.5 - 3.5 POST-LA Goal INR 2.5; range 2.0 - 3.0 or Goal 3.0; range 2.5 - 3.5 Atrial Fibrillation Goal INR 2.5; range 2.0 - 3.0 Ischemic Stroke Goal INR 2.5; range 2.0 - 3.0 For additional information see Guidelines for Anticoagulation available from the pharmacy [facility] [phone] Blood specimen (specimen) 01/24/2008 2:06 PM CDT 01/24/2008 2:13 PM CDT Carlos A Henao MD HEMATOLOGY ORDERABLES Edited [facility] [address] [place] [address] * (ABNORMAL) CBC WITH DIFFERENTIAL (01/24/2008 2:06 PM CDT) Pathologist [facility] Emergency Department MCV 87.5 84.0 - 103.[address] [facility] MPV 9.8 8.9 - 12.[address] [facility] MONOCYTE ABSOLUTE 0.6 0.1 - 0.6 K/ul [facility] BASOPHILS 0.5 0.0 - 1.0 % [facility] HEMOGLOBIN 15.0 12.0 - 16.0 g/dL [facility] RDW 13.4 11.0 - 14.5 % [facility] MONOCYTES 7.2 2.0 - 10.0 % [facility] WBC 8.6 4.8 - 10.8 K/ul [facility] MCH 27.9 27.0 - 34.[address] [facility] NEUTROPHIL ABSOLUTE 5.6 2.0 - 8.0 K/ul [facility] NEUTROPHILS 65.0 42.2 - 75.2 % [facility] PERIPHERAL BLOOD SMEAR REVIEW Automated Diff [facility] EOSINOPHIL ABSOLUTE 0.2 0.0 - 0.7 K/ul [facility] HEMATOCRIT 47.1(H) 36.0 - 46.0 % [facility] EOSINOPHILS 2.7 0.0 - 7.0 % [facility] PLATELETS 290 140 - 440 K/ul [facility] RBC 5.38 4.20 - 5.40 Mil/ul [facility] LYMPHOCYTES 24.6 24.0 - 44.0 % [facility] MCHC 31.8 30.0 - 35.0 g/dL [facility] BASOPHILS ABSOLUTE 0.0 0.0 - 0.2 K/ul [facility] LYMPHOCYTE ABSOLUTE 2.1 1.2 - 4.0 K/ul [facility] Blood specimen (specimen) 01/24/2008 2:06 PM CDT 01/24/2008 2:13 PM CDT us Carlos A Henao MD HEMATOLOGY ORDERABLES Final Resu lt [facility] [address] [place] [address] * (ABNORMAL) POC GLUCOSE (01/24/2008 2:01 PM CDT) GLUCOSE POC >500(AA) 60 - 100 mg/dL [facility] COMMENT POC Lab Confirm [facility] Venous blood specimen (specimen) 01/24/2008 2:01 PM CDT 01/26/2008 6:56 AM CDT us John Power MD POINT OF CARE TESTING Rosetta terrazas Result [facility] [address] [place] [address] documented in this encounter Visit Diagnoses Not on filedocumented in this encounter Care Teams Public Events Facilities Rental Manager Relationship Specialty Start Date End Date Adrienne March DO [address] [facility] [place] [address] PCP - General Family Practice 06/30/10 documented as of this encounter
--- OUTSIDE RECORDS SUMMARY | 2025-09-13 00:37 | XMS_ITS | Encounter Summary ---
Author Organization 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
--- OUTSIDE RECORDS SUMMARY | 2025-09-13 00:37 | XMS_ITS | Encounter Summary ---
Author Organization [facility] Address [address] [place] [address] Care Team Providers Care Railroad Inspector Name Role Phone Adrienne March DO Primary Care Provider Reason for Visit * Reason Comments Med Refill Encounter Details Date Type Department Care Team (Late st Contact Info) Description 09/06/2025 Refill [facility] Family Medicine [place] [address] [place] [address] Adrienne March DO [address] [place] [address] Social History Tobacco Use Types [...] on file Legal Sex Female 6:27 AM CHEF DE FROID Gender Identity Not on file Sexual Orientation Not on file documented as of this encounter Miscellaneous Notes * Telephone Encounter - Naa Garcia LPN - 09/06/2025 9:18 AM CST Medication Refill Request Last Fill Date:11/02/24 with 4 RF EUGENIA 07/25/25 Last labs 07/25/25 Recent and Future Visits: Recent Visits Date Type Provider Dept 08/06/25 Office Visit [facility] 07/25/25 Office Visit Adrienne March, DO [facility] 07/17/25 Office Visit Jessica Torres NP [facility] 07/10/25 Office Visit Jessica Torres NP [facility] 07/02/25 Office Visit Whit Freeman, [facility] 06/21/25 Office Visit Whit Freeman, [facility] 06/18/25 Office Visit Katie December [facility] 06/07/25 Office Visit Whit Freeman, [facility] 05/15/25 Office Visit Adrienne March, DO [facility] 03/29/25 Office Visit Katie December, [facility] Showing recent visits within past 540 days with a meds authorizing provider and meeting all other requirements Future Appointments Date Type Provider Dept 10/25/25 Appointment Adrienne March DO [facility] 01/23/26 Appointment Adrienne March, [facility] Showing future appointments within next 365 days with a meds authorizing provider and meeting all other requirements Last Labs: Lab Results Component Value Date/Time HGBA1C 7.3 (H) 07/25/2025 11:24 AM HGBA1C 8.2 (H) 03/29/2025 11:17 AM HGBA1C 8.6 (H) 10/05/2024 01:21 PM MALBUR 2.0 10/23/2024 05:02 PM LDLCALC 125 (H) 07/25/2025 11:24 AM CREAT 1.24 (H) 07/25/2025 11:24 AM Tiffany Gaffney - 1945 Check and review of the [place] PDMP performed on 09/06/2025 at 9:18 AM was DE FROID documented in this encounter Plan of Treatment Upcoming Encounters Date Type Department Care Team (Late st Contact Info) Description 10/10/2025 10:40 AM CHEF DE FROID Procedure visit [facility] [place] [address] [phone] Davi Ferguson MD [address] [place] [address] 10/25/2025 1:40 PM CHEF DE FROID Office Visit [facility] [address] [place] [phone] Adrienne March [address] [place] [phone] 01/23/2026 11:20 AM CDT Office Visit [facility] [address] [place] [address] Adrienne March DO [address] [place] [phone] 04/22/2026 1:20 PM CDT Office Visit [facility] [address] [facility] [address] [place] [address] Cori Ochoa, [facility] [address] [place] [address] documented as of this encounter Visit Diagnoses Not on filedocumented in this encounter Additional Health Concerns Assessment Noted Time PHQ-9 Depression Total Score: 2 07/25/20 25 10:06 AM CHEF DE FROID documented as of this encounter Care Teams Railroad Inspector Relationship Specialty Start Date End Date Adrienne March DO [address] [place] [phone] PCP - General Family Practice 06/30/10 documented as of this encounter
--- OUTSIDE RECORDS SUMMARY | 2025-09-13 00:37 | XMS_ITS | Encounter Summary ---
Author Organization [facility] Address [address] [place] [address] Care Team Providers Care Screw Machine Operator Swiss Type Name Role Phone Adrienne March DO Primary Care Provider Encounter Details Date Type Department Care Team (Latest Contact Info) Description 03/16/2003 Outpatient Historical [facility] Wilfredo Michel MD [address] [phone] JOINT PAIN-SHLDER (Primary Dx) Social History Tobacco Use Types Packs/Day Years Used Date Smoking Tobacco: Never Assessed Comments Unknown Sex and Gender Information Value Date Recorded Sex Assigned at Not on file 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
--- OUTSIDE RECORDS SUMMARY | 2025-09-13 00:37 | XMS_ITS | Encounter Summary ---
Author Organization [facility] Address [address] [place] [address] Care Team Providers Care Drugless Doctor Name Role Phone Adrienne March DO Primary Care Provider Encounter Details Date Type Department Care Team (Late st Contact Info) Description 08/09/2025 Results Follow-Up [facility] [place] [address] [place] [address] Wilsondecember, SHELLFISH HARVESTER [address] [place] [address] POC URINALYSIS DIPSTICK AUTOMATED, URINE [...] file Legal Sex Female 6:27 AM MANAGER DRILLING Gender Identity Not on file Sexual Orientation Not on file documented as of this encounter Plan of Treatment Upcoming Encounters Date Type Department Care Team (Late st Contact Info) Description 10/10/2025 10:40 AM MANAGER DRILLING Procedure visit [facility] [place] [address] [place] [phone] Davi Ferguson MD [address] [place] [phone] 10/25/2025 1:40 PM MANAGER DRILLING Office Visit [facility] [address] [place] [address] Adrienne March, DO [address] [place] [address] 01/23/2026 11:20 AM CDT Office Visit [facility] [address] [place] [phone] Adrienne March, DO [address] [place] [address] 04/22/2026 1:20 PM CDT Office Visit [facility] [address] [facility] [address] [place] [address] Cori Ochoa, [facility] [address] [facility] [address] [place] [address] documented as of this encounter Visit Diagnoses Not on filedocumented in this encounter Additional Health Concerns Assessment Noted Time PHQ-9 Depression Total Score: 2 07/25/20 25 10:06 AM MANAGER DRILLING documented as of this encounter Care Teams Drugless Doctor Relationship Specialty Start Date End Date Adrienne March DO [address] [place] [address] PCP - General Family Practice 06/30/10 documented as of this encounter
--- OUTSIDE RECORDS SUMMARY | 2025-09-13 00:38 | XMS_ITS | Encounter Summary ---
Author Organization [facility] Address [address] [place] [address] Care Team Providers Care S3B Multi Sensor Operator Name Role Phone Adrienne March DO Primary Care Provider +1- [phone] Encounter Details Date Type Department Care Team (Latest Contact Info) Description 01/06/2005 Outpatient Historical [facility] [address] [place] [address] Abel Hurtado, DPM NO ADDRESS ON FILE CALCANEAL SPUR (Primary Dx) Social History Tobacco Use Types Packs/Day Years Used Date Smoking Tobacco: Never Assessed Comments Unknown Sex and Gender Information Value Date Recorded Sex Assigned at Not on file Legal Sex Female 3:34 AM TANNING WHEEL OPERATOR Gender Identity Not on file Sexual Orientation Not on file documented as of this encounter Plan of Treatment Not on file documented as of this encounter Visit Diagnoses Diagnosis Calcaneal spur- Primary documented in this encounter Care Teams S3B Multi Sensor Operator Relationship Specialty Start Date End Date Adrienne March DO [address] [place] [address] PCP - General Family Practice 06/30/10 documented as of this encounter
--- OUTSIDE RECORDS SUMMARY | 2025-09-13 00:38 | XMS_ITS | Encounter Summary ---
Author Organization [facility] Address [address] [place] [address] Care Team Providers Care Line Operator Name Role Phone Adrienne March DO Primary Care Provider Encounter Details Date Type Department Care Team (Latest Contact Info) Description 07/14/2000 Outpatient Historical [facility] [address] [phone] Lesly Jones MD NO ADDRESS ON FILE Other screening mammogram (Primary Dx) Social History Tobacco Use Types Packs/Day Years Used Date Smoking Tobacco: Never Assessed Comments Unknown Sex and Gender Information Value Date Recorded Sex Assigned at Not on file Legal Sex Female 3:34 AM HOMEMAKING REHABILITATION CONSULTANT Gender Identity Not on file Sexual Orientation Not on file documented as of this encounter Plan of Treatment Not on file documented as of this encounter Visit Diagnoses Diagnosis Other screening mammogram- Primary documented in this encounter Care Teams Line Operator Relationship Specialty Start Date End Date Adrienne March DO [address] [place] [address] PCP - General Family Practice 06/30/10 documented as of this encounter
--- OUTSIDE RECORDS SUMMARY | 2025-09-13 00:38 | XMS_ITS | Encounter Summary ---
Author Organization [facility] Address [address] [place] [address] Care Team Providers Care Mold Carpenter Name Role Phone Adrienne March DO Primary Care Provider Encounter Details Date Type Department Care Team (Latest Contact Info) Description 06/12/2004 Outpatient [facility] [address] [place] [address] [place] [address] [address] Jose Luis Mcmillan MD [address] [place] [address] JOINT PAIN-SHLDER (Primary Dx) Social History Tobacco Use Types Packs/Day Years Used Date Smoking Tobacco: Never Assessed Comments Unknown Sex and Gender Information Value Date Recorded Sex Assigned at Not on file 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
--- OUTSIDE RECORDS SUMMARY | 2025-09-13 00:38 | XMS_ITS | Encounter Summary ---
Author Organization [facility] Address [address] [place] [address] Care Team Providers Care Picture Hanger Name Role Phone Adrienne March DO Primary Care Provider +1- [phone] Encounter Details Date Type Department Care Team (Latest Contact Info) Description 01/06/2005 Outpatient [facility] Podiatry[facility] [place] [address] [place] [phone] Abel Hurtado, MARCE NO ADDRESS ON FILE CALCANEAL SPUR (Primary Dx); EXOSTOSIS, SITE NOS Social History Tobacco Use Types Packs/Day Years Used Date Smoking Tobacco: Never Assessed Comments Unknown Sex and Gender Information Value Date Recorded Sex Assigned at Not on file Legal Sex Female 3:34 AM NATIONAL OPELINT ANALYST Gender Identity Not on file Sexual Orientation Not on file documented as of this encounter Plan of Treatment Not on file documented as of this encounter Visit Diagnoses Diagnosis Calcaneal spur- Primary Exostosis of unspecified site documented in this encounter Care Teams Picture Hanger Relationship Specialty Start Date End Date Adrienne March DO [address] [place] [address] PCP - General Family Practice 06/30/10 documented as of this encounter
--- OUTSIDE RECORDS SUMMARY | 2025-09-13 00:38 | XMS_ITS | Encounter Summary ---
Author Organization [facility] Address [address] [place] [address] Care Team Providers Care City Bailiff Name Role Phone Adrienne March DO Primary Care Provider Encounter Details Date Type Department Care Team (Late st Contact Info) Description 04/16/1999 Outpatient Historical [facility] [address] [facility], [address] [place] [phone] Luaks Vang MD [address] [place] [address] Pain in limb (Primary Dx) Social History Tobacco Use Types Packs/Day Years Used Date Smoking Tobacco: Never Assessed Comments Unknown Sex and Gender Information Value Date Recorded Sex Assigned at Not on file 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
--- OUTSIDE RECORDS SUMMARY | 2025-09-13 00:38 | XMS_ITS | Encounter Summary ---
Author Organization [facility] Address [address] [place] [address] Care Team Providers Care Care Program Resident Name Role Phone Adrienne March DO Primary Care Provider Encounter Details Date Type Department Care Team (Latest Contact Info) Description 05/27/2004 Outpatient Historical [facility] [address] [place] [phone] Jose Luis Mcmillan MD [address] [place] [address] CERVICALGIA (Primary Dx); Cervical spondylosis; JOINT PAIN-SHLDER Social History Tobacco Use Types Packs/Day Years Used Date Smoking Tobacco: Never Assessed Comments Unknown Sex and Gender Information Value Date Recorded Sex Assigned at Not on file Legal Sex Female 3:34 AM MANAGER ENERGY Gender Identity Not on file Sexual Orientation Not on file documented as of this encounter Plan of Treatment Not on file documented as of this encounter Visit Diagnoses Diagnosis Cervicalgia- Primary Cervical spondylosis Cervical spondylosis without myelopathy Pain in joint, shoulder region documented in this encounter Care Teams Care Program Resident Relationship Specialty Start Date End Date Adrienne March DO [address] [place] [address] PCP - General Family Practice 06/30/10 documented as of this encounter
--- OUTSIDE RECORDS SUMMARY | 2025-09-13 00:38 | XMS_ITS | Encounter Summary ---
Author Organization [facility] Address [address] [place] [address] Care Team Providers Care Kiss Setter Hand Name Role Phone Adrienne March DO Primary Care Provider Encounter Details Date Type Department Care Team (Late st Contact Info) Description 08/01/2004 Outpatient [facility] [address] [place] [address] [place] [address] [address] Wilfredo Michel MD [address] [phone] Social History Tobacco Use Types Packs/Day Years Used Date Smoking Tobacco: Never Assessed Comments Unknown Sex and Gender Information Value Date Recorded Sex Assigned at Not on file Legal Sex Female 3:34 AM BATTERY CHARGER CONVEYOR LINE Gender Identity Not on file Sexual Orientation Not on file documented as of this encounter Plan of Treatment Not on file documented as of this encounter Visit Diagnoses Not on filedocumented in this encounter Care Teams Kiss Setter Hand Relationship Specialty Start Date End Date Adrienne March DO [address] [place] [phone] PCP - General Family Practice 06/30/10 documented as of this encounter
--- OUTSIDE RECORDS SUMMARY | 2025-09-13 00:38 | XMS_ITS | Encounter Summary ---
Author Organization [facility] Address [address] [place] [address] Care Team Providers Care Fulling Mill Operator Name Role Phone Adrienne March DO Primary Care Provider Encounter Details Date Type Department Care Team (Latest Contact Info) Description 03/02/2005 Outpatient Historical [facility] Orthopedics- [place] [address] [place] [address] [place] [phone] Josse Ferguson MD NO ADDRESS ON FILE FX FEMUR SHAFT-CLOSED (CMS/HCC) (Primary Dx); FX LOW RADIUS W ULNA-CLOSE Social History Tobacco Use Types Packs/Day Years Used Date Smoking Tobacco: Never Assessed Comments Unknown Sex and Gender Information Value Date Recorded Sex Assigned at Not on file Legal Sex Female 3:34 AM PRACTICE BILLING ASSOCIATE Gender Identity Not on file Sexual Orientation Not on file documented as of this encounter Plan of Treatment Not on file documented as of this encounter Visit Diagnoses Diagnosis Closed fracture of shaft of femur (CMS/HCC)- Primary Closed fracture of shaft of femur Closed fracture of lower end of radius with ulna documented in this encounter Care Teams Fulling Mill Operator Relationship Specialty Start Date End Date Adrienne March DO [address] [place] [address] PCP - General Family Practice 06/30/10 documented as of this encounter
--- OUTSIDE RECORDS SUMMARY | 2025-09-13 00:38 | XMS_ITS | Encounter Summary ---
Author Organization [facility] Address [address] [place] [address] Care Team Providers Care Ammonia Box Operator Name Role Phone Adrienne March DO Primary Care Provider Encounter Details Date Type Department Care Team (Latest Contact Info) Description 01/08/2004 Outpatient Historical [facility] [address] [place] [address] Jose Luis Mcmillan MD [address] [place] [address] CERVICALGIA (Primary Dx); Cervical spondylosis Social History Tobacco Use Types Packs/Day Years Used Date Smoking Tobacco: Never Assessed Comments Unknown Sex and Gender Information Value Date Recorded Sex Assigned at Not on file 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
--- OUTSIDE RECORDS SUMMARY | 2025-09-13 00:38 | XMS_ITS | Encounter Summary ---
Author Organization [facility] Address [address] [place] [address] Care Team Providers Care Corporation Pilot Name Role Phone Adrienne March DO Primary Care Provider Encounter Details Date Type Department Care Team (Late st Contact Info) Description 12/20/2000 Outpatient Historical [facility] Internal Medicine- [address] [place] [phone] Umang Urrutia MD [address] [place] [address] Calcaneal spur (Primary Dx) Social History Tobacco Use Types Packs/Day Years Used Date Smoking Tobacco: Never Assessed Comments Unknown Sex and Gender Information Value Date Recorded Sex Assigned at Not on file 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
--- OUTSIDE RECORDS SUMMARY | 2025-09-13 00:38 | XMS_ITS | Encounter Summary ---
Author Organization [facility] Address [address] [place] [address] Care Team Providers Care A R Collections Rep Name Role Phone Adrienne March DO Primary Care Provider +1- [phone] Encounter Details Date Type Department Care Team (Latest Contact Info) Description 07/14/2000 Outpatient Historical [facility] Cardiology- [place] [address] [place] [phone] Lukas Degroot MD NO ADDRESS ON FILE Precordial pain (Primary Dx); Palpitations Social History Tobacco Use Types Packs/Day Years Used Date Smoking Tobacco: Never Assessed Comments Unknown Sex and Gender Information Value Date Recorded Sex Assigned at Not on file 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
--- OUTSIDE RECORDS SUMMARY | 2025-09-13 00:38 | XMS_ITS | Encounter Summary ---
Author Organization [facility] Address [address] 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
--- OUTSIDE RECORDS SUMMARY | 2025-09-13 00:38 | XMS_ITS | Encounter Summary ---
Author Organization [facility] Address [address] [place] [address] Care Team Providers Care Brine Mixer Operator Name Role Phone Adrienne March DO Primary Care Provider Encounter Details Date Type Department Care Team (Latest Contact Info) Description 07/29/2004 Outpatient Historical [facility] Imaging Services-[place] [address] [place] [address] Abel Hurtado, DPM NO ADDRESS ON FILE Pain in limb (Primary Dx) Social History Tobacco Use Types Packs/Day Years Used Date Smoking Tobacco: Never Assessed Comments Unknown Sex and Gender Information Value Date Recorded Sex Assigned at Not on file 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
--- OUTSIDE RECORDS SUMMARY | 2025-09-13 00:38 | XMS_ITS | Encounter Summary ---
Author Organization 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
--- OUTSIDE RECORDS SUMMARY | 2025-09-13 00:38 | XMS_ITS | Encounter Summary ---
Author Organization [facility] Address [address] [place] [address] Care Team Providers Care Strawberry Grower Name Role Phone Adrienne March DO Primary Care Provider +1- [phone] Encounter Details Date Type Department Care Team (Latest Contact Info) Description 03/18/2001 Outpatient [facility] [place] [address] [place] [address] Abel Hurtado, DPM NO ADDRESS ON FILE Calcaneal spur (Primary Dx) Social History Tobacco Use Types Packs/Day Years Used Date Smoking Tobacco: Never Assessed Comments Unknown Sex and Gender Information Value Date Recorded Sex Assigned at Not on file 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
--- OUTSIDE RECORDS SUMMARY | 2025-09-13 00:38 | XMS_ITS | Encounter Summary ---
Author Organization [facility] Address [address] 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
--- OUTSIDE RECORDS SUMMARY | 2025-09-13 00:38 | XMS_ITS | Encounter Summary ---
Author Organization [facility] Address [address] [place] [address] Care Team Providers Care Gas Station Attendant Name Role Phone Adrienne March Primary Care Provider Encounter Details Date Type Department Care Team (Late st Contact Info) Description 10/20/2017 Ancillary Orders [facility] [address] [place] [address] Deanne Banks, [facility] [address], [place] [phone] Fall (on)(from) incline, initial encounter; Acute bilateral [...] file Legal Sex Female 3:34 AM COMMUNICATIONS DEPARTMENT CHAIRPERSON Gender Identity Not on file Sexual Orientation [...] 2 OR 3 VW (10/20/2017 5:18 PM COMMUNICATIONS DEPARTMENT CHAIRPERSON) Anatomical Region Laterality Modality Spine Computed Radiogr aphy 10/20/2017 5:19 PM COMMUNICATIONS DEPARTMENT CHAIRPERSON Impressions 10/21/2017 10:00 AM COMMUNICATIONS DEPARTMENT CHAIRPERSON IMPRESSION: Please see below. Exam: XR LUMBAR [...] age-indeterminate L1 compression deformity. us Deanne Banks CAGE/VAULT SUPERVISOR DIAGNOSTIC IMAGING ORDERABLES Final Result documented in this encounter Visit Diagnoses Diagnosis Fall (on)(from) incline, initial encounter Acute bilateral low back pain without sciatica Fall (on)(from) incline, initial encounter Acute bilateral low back pain without sciatica documented in this encounter Additional Health Concerns Assessment Noted Time PHQ-9 Depression Total Score: 3 06/11/20 14 9:00 AM CDT documented as of this encounter Care Teams Gas Station Attendant Relationship Specialty Start Date End Date Adrienne March DO [address] [place] [address] PCP - General Family Practice 06/30/10 documented as of this encounter
--- OUTSIDE RECORDS SUMMARY | 2025-09-13 00:38 | XMS_ITS | Encounter Summary ---
Author Organization [facility] Address [address] 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
--- OUTSIDE RECORDS SUMMARY | 2025-09-13 00:38 | XMS_ITS | Encounter Summary ---
Author Organization [facility] Address [address] [place] [address] Care Team Providers Care 911 Operator Name Role Phone Adrienne March DO Primary Care Provider Encounter Details Date Type Department Care Team (Latest Contact Info) Description 08/31/2000 Outpatient Historical [facility] Internal Medicine- [address] [place] [phone] Umang Urrutia MD [address] [place] [address] Type II or unspecified type diabetes mellitus without mention of complication, not stated as uncontrolled (Primary Dx); Hepatitis, unspecified; Carpal tunnel syndrome; Need vaccination-viral disease Social History Tobacco Use Types Packs/Day Years Used Date Smoking Tobacco: Never Assessed Comments Unknown Sex and Gender Information Value Date Recorded Sex Assigned at Not on file 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
--- OUTSIDE RECORDS SUMMARY | 2025-09-13 00:38 | XMS_ITS | Clinical Summary ---
Author Organization [facility] Address [address] [place] [address] Care Team Providers Care Aquarium Tank Attendant Name Role Phone AncaAdrienne forbes Yanni LEWIS Primary Care Provider Allergies Active Allergy Reactions [...] complication, without long-term current use of insulin ([facility]) USE TO TEST BLOOD SUGAR TWICE DAILY AND NEEDED. 200 Each 7 05/12/20 23 Active Spiriva Respimat 2.5 mcg/actuation MistIndications :Chronic respiratory failure with hypoxia and hypercapnia ([facility]),Decre ased lung sounds Inhale TWO puffs BY MOUTH DAILY 4 Gram 3 08/24/20 23 Active dapagliflozin propanediol (FARXIGA) 5 mg TabletIndicatio ns:Type 2 diabetes mellitus with diabetic polyneuropathy, unspecified whether terminal gauger insulin use ([facility]),Frail elderly,History of CVA (cerebrovascula r accident) without residual deficits Take 1 Tablet (5 mg) by mouth daily. 100 Tablet 3 01/03/20 24 Active cetirizine (ZyrTEC) 10 mg tabletIndicatio ns:Viral upper respiratory infection take 1 tablet by mouth daily 100 Tablet 3 04/06/20 24 Active flash glucose scanning reader (FreeStyle Ailin 2 Carmi) MiscIndications :Type 2 diabetes mellitus without complication, without long-term current use of insulin ([facility]) Use to monitor glucose continuously. 1 Each 04/18/20 24 Active portable oxygenIndicatio ns:Chronic respiratory failure with hypoxia and hypercapnia ([facility]),Chron ic obstructive pulmonary disease, unspecified COPD type ([facility]),Cor pulmonale ([facility]) Portable oxygen concentrator Face to Face completed within 30 days: yes Length of Need: 99 months By: Nasal Cannula Continuously at 2 L/min. 1 Each 05/23/20 24 Active naloxone (NARCAN) 4 mg/spray [employer], Non-Aerosol EMERGENCY USE ONLY: Administer 1 spray (4 mg) in one nostril one time. May repeat in alternating nostrils every 2-3 min until responsive or EMS arrives. 2 Each 3 07/24/20 24 Active flash glucose sensor (FreeStyle Ailin 2 Sensor) KitIndications: Type 2 diabetes mellitus without complication, without long-term current use of insulin ([facility]) Use to monitor glucose continuously. Replace sensor [...] polyneuropathy, with long-term current use of insulin ([facility]) Inject 0.5 mL (3 mg) by subcutaneous injection every 7 days. 6 mL 3 10/06/19 25 Active potassium CHLORIDE (K-DUR,KLOR-CON M20) 20 [...] sensor to wirelessly send data to the seafood service team member. Must be changed every 3 months. 1 [...] 25 Active Blood-Glucose Meter,Continuou s (Dexcom G6 Laboratory Courier)Indica tions:Type 2 diabetes mellitus with diabetic polyneuropathy, [...] breakfast. 90 Tablet 4 07/25/20 25 Active vit C/E/Zn/coppr/dell tein/zeaxan ([facility]-2 ORAL) Take 1 Capsule by mouth daily. Active fluticasone propionate (FLONASE) 50 mcg/spray [employer], Suspension nasal inhalerIndicati ons:Fluid level behind tympanic membrane of left ear Administer 2 Sprays in each nostril daily. 16 Gram 3 08/06/20 25 Active famotidine (PEPCID) 20 mg tabletIndicatio ns:Gastroesopha geal reflux disease without esophagitis TAKE ONE TABLET BY MOUTH TWICE DAILY 180 Tablet 3 08/22/20 25 Active oxyCODONE-aceta minophen (PERCOCET) 10-325 mg TabletIndicatio ns:Degenerative spondylolisthes is,DDD (degenerative disc disease), lumbar Take 1 Tablet by mouth every 4 hours as needed for Pain, Severe. Max Daily Amount: 6 Tablets 50 Tablet 09/04/20 25 Active OneTouch Ultra Test Strip TEST 1 TIME DAILY 100 Each 3 09/06/20 25 Active True Comfort Alcohol Pads Pads, Medicated TEST 1 TIME DAILY 100 Each 3 09/06/20 25 Active Safety Lancets 28 gauge TEST 1 TIME DAILY 100 Each 3 09/06/20 25 Active Safety Lancets 28 gauge TEST 1 TIME DAILY 100 Each 4 11/02/19 25 2024 Discontinued alcohol Pads, Medicated TEST 1 TIME DAILY 100 Each 4 11/02/19 25 2024 Discontinued OneTouch Ultra Test Strip TEST 1 TIME DAILY 100 Each 4 11/02/19 25 2024 Discontinued famotidine (PEPCID) 20 mg tabletIndicatio ns:Gastroesopha geal reflux disease without esophagitis Take 1 Tablet (20 mg) by mouth 2 times daily. 60 Tablet 4 07/10/20 25 2024 Discontinued oxyCODONE-aceta minophen (PERCOCET) 10-325 mg TabletIndicatio ns:Degenerative spondylolisthes is,DDD (degenerative disc disease), lumbar Take 1 Tablet by mouth every 4 hours as needed for Pain, Severe. Max Daily Amount: 6 Tablets 50 Tablet 08/02/20 25 2024 Discontinued Active Problems Problem Noted [...] Encounters Date Type Department Care Team Description 09/06/2025 [facility] [address] [place] [address] Adrienne March DO [facility] [address] [place] [address] Adrienne March DO Degenerative spondylolisthesis; DDD (degenerative disc disease), lumbar 08/22/2025 Refill [facility] [address] [place] [address] Wilson, December, CREW BOSS Gastroesophageal reflux disease without esophagitis 08/09/2025 Results Follow-Up [facility] [address] [place] [address] Wilson, December, CREW BOSS POC URINALYSIS DIPSTICK AUTOMATED, URINE CULTURE 08/06/2025 8:00 AM WATCH AND CLOCK MAKER AND REPAIRER Office Visit [facility] [address] [place] [address] Wilson, December, CREW BOSS Recurrent UTI (Primary Dx); Fluid level behind tympanic membrane of left ear; Frail elderly; Panlobular emphysema ([facility]/HCC); Paroxysmal atrial fibrillation ([facility]) 08/02/2025 Refill [facility] [address] [place] [address] Adrienne March DO Degenerative spondylolisthesis; DDD (degenerative disc disease), lumbar 08/02/2025 Orders Only [facility] Information [facility] [place] [address] [place] [address] Provider, Abstract 07/31/2025 Results Follow-Up [facility] [address] [place] [address] Adrienne March DO POC URINALYSIS DIPSTICK NON AUTOMATED, CBC WITH DIFFERENTIAL, COMPREHENSIVE METABOLIC PANEL, Additional followed-up results: 6 07/27/2025 Telephone [facility] [address] [place] [address] Adrienne March DO hands and feet are numb 07/27/2025 Telephone [facility] [address] [place] [address] Adrienne March DO Lab Results 07/25/2025 10:00 AM WATCH AND CLOCK MAKER AND REPAIRER Office Visit [facility] [address] [place] [phone] Adrienne March DO Type 2 diabetes mellitus with diabetic polyneuropathy, with long-term current use of insulin ([facility]) (Primary Dx); Need for influenza vaccination; Type 2 diabetes mellitus with stage 3b chronic kidney disease, without long-term current use of insulin ([facility]); Recurrent UTI; Panlobular emphysema ([facility]); Paroxysmal atrial fibrillation ([facility]); Chronic respiratory failure with hypoxia and hypercapnia ([facility]); Frail elderly; Gastroesophageal reflux disease without esophagitis; Hypothyroidism due to acquired atrophy of thyroid; Mixed hyperlipidemia; Multinodular goiter; Chronic midline low back pain with bilateral sciatica; History of vertebral compression fracture; Essential hypertension; Moderate to severe aortic stenosis; History of CVA (cerebrovascular accident) without residual deficits; History of seizure disorder; Recurrent major depressive disorder, in full remission 07/25/[address] [phone] Jessica Torres NP Yeast dermatitis 07/17/2025 3:00 PM CDT Office Visit [address] [phone] Jessica Torres 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 Vaginal yeast infection (Primary Dx); Yeast dermatitis; Vaginal pain 07/10/2025 3:50 PM CDT - 07/10/2025 11:59 PM CDT Hospital Encounter [facility] [address] [phone] Jessica Torres NP Discharge Disposition: Home or Self Care 07/10/2025 3:20 PM CDT Office Visit [address] [phone] Jessica Torres NP Slow transit constipation (Primary Dx) 07/10/2025 External Device Data [facility] ABSTRACTION Provider, Abstract 07/10/2025 Results Follow-Up [address] [phone] Jessica Torres NP XR ABDOMEN 1 VW 07/06/2025 Refill [facility] [address] [place] [facility] [place] [phone] Anca, Adrienne Yanni, DO 07/06/2025 Refill [facility] [address] [place] [place] [phone] Mirella Wilson, CREW BOSS Post-nasal drip; Gastroesophageal reflux disease without esophagitis 07/05/2025 Refill [facility] [address] [address] Whit Freeman FNP Yeast infection 07/02/2025 3:46 PM CDT - 07/02/2025 11:59 PM CDT Hospital Encounter [facility] [address] [facility] [address] [place] [phone] Whit Freeman FNP Discharge Disposition: Home or Self Care 07/02/2025 3:00 PM CDT Office Visit [address] [phone] Whit Freeman FNP Urinary tract infection without hematuria, site unspecified (Primary Dx); Acute cough; COPD with exacerbation ([facility]); Yeast infection; Pulled muscle; History of falling; Chronic UTI; Stage 3b chronic kidney disease (CMS/HCC); Laceration of left knee, initial encounter 07/02/2025 Results Follow-Up [address] [phone] Whit Freeman FNP XR CHEST PA AND LATERAL 2 VW 06/29/[address] [place] [phone] Whit Freeman FNP Other cough 06/26/2025 Results Follow-Up [address] [phone] Whit Freeman, CREW BOSS POC URINALYSIS DIPSTICK AUTOMATED, URINE CULTURE 06/25/2025 Refill [facility] [address] [place] [phone] Adrienne March, Type 2 diabetes mellitus with diabetic polyneuropathy, with long-term current use of insulin ([facility] Type 2 diabetes mellitus with stage 3b chronic kidney disease, without long-term current use of insulin ([facility]) 06/25/2025 Refill [facility] [address] [place] [phone] Adrienne March DO Degenerative spondylolisthesis; DDD (degenerative disc disease), lumbar 06/22/2025 Orders Only [facility] [address] [place] [phone] Adrienne March DO 06/21/2025 10:40 AM CDT Office Visit [facility] [address] [facility] [address] [place] [phone] Whit Freeman, CREW BOSS Urinary pain (Primary Dx); Suspected UTI; Vaginal yeast infection; Other cough; Chronic UTI 06/18/2025 3:40 PM CDT Office Visit [facility] [address] [place] [phone] December, CREW BOSS Constipation, unspecified constipation type (Primary Dx) 06/18/2025 Nurse Triage [facility] [address] [place] [phone] Adrienne March DO from Last 3 Months Immunizations Immunization Administration [...] on file Legal Sex Female 6:27 AM WATCH AND CLOCK MAKER AND REPAIRER Gender Identity Not on file Sexual Orientation Not on file Last Filed Vital Signs Vital Sign Reading Time Taken Comments Blood Pressure 126/60 08/06/2025 8:09 AM WATCH AND CLOCK MAKER AND REPAIRER Pulse 81 08/06/2025 8:09 AM WATCH AND CLOCK MAKER AND REPAIRER Temperature 36 C (96.8 F) 08/06/2025 8:09 AM WATCH AND CLOCK MAKER AND REPAIRER Respiratory Rate 20 07/17/2025 3:06 PM CDT Oxygen Saturation 92% 08/06/2025 8:09 AM WATCH AND CLOCK MAKER AND REPAIRER Inhaled Oxygen Concentration - - Weight 98.1 kg (216 lb 4 oz) 08/06/2025 8:09 AM WATCH AND CLOCK MAKER AND REPAIRER Height 157.5 cm (5' 2 ) 08/06/2025 8:09 AM WATCH AND CLOCK MAKER AND REPAIRER s tated Body Mass Index 39.55 08/06/2025 8:09 AM WATCH AND CLOCK MAKER AND REPAIRER Plan of Treatment Upcoming Encounters Date Type Department Care Team (Late st Contact Info) Description 10/10/2025 10:40 AM WATCH AND CLOCK MAKER AND REPAIRER Procedure visit [facility] [place] [address] [place] [phone] Davi Ferguson MD [address] [place] [address] 10/25/2025 1:40 PM WATCH AND CLOCK MAKER AND REPAIRER Office Visit [facility] [address] [place] [phone] Adrienne March, DO [address] [place] [address] 01/23/2026 11:20 AM CDT Office Visit [facility] [address] [place] [phone] Adrienne March, DO [address] [place] [phone] 04/22/2026 1:20 PM CDT Office Visit [facility] [address] [place] [address] Cori Ochoa, [facility] [address] [place] [address] Health Maintenance Due Date Last [...] years Discontinued Medical Devices Implanted Type Area Melter Assistant Device Identifier Shelf Expiration Date Model / Serial / Lot Cement Simplex Hvisc 6194-1-010 - [id number] Implanted:01/2020 by Marco A Lewis MD (Quantity not on file) Cement Left: Knee JAMSHID- [employer] [id number] 03/19/2021 6194-1-010 / / [id number] Cement Simplex Hvisc 6194-1-010 - [id number] Implanted:01/2020 by Marco A Lewis MD (Quantity not on file) Cement Left: Knee [employer] [id number] 03/19/2021 6194-1-010 / / [id number] Hemostatic Surgifoam 1gm 1977 - [id number] Implanted:Qty : 1 on 06/21/2020 by Jan Hoffman MD Hemostatic N/A: Back J[employer]J- [employer] [id number] 10/26/20211977 / / [id number] Comp Fem Attune Cr Cmnt Sz4 1504-00-104 - [id number] Implanted:Qty : 1 on 11/23/2019 by Marco A Lewis MD Knee Left: Knee J[employer]J- [employer] [id number] 09/19/2029 [id number] / / [id number] Comp Tib Attune Fb Cmnt Sz5 1506-70-005 - [id number] Implanted:Qty : 1 on 11/23/2019 by Marco A Lewis MD Knee Left: Knee J[employer] [id number] 08/19/2029 [id number] / / [id number] Insert Attune Fb Cr Sz4 6mm 1516-20-406 - [id number] Implanted:Qty : 1 on 11/23/2019 by Marco A Lewis MD Knee Left: Knee J[employer] [id number] 03/19/2023 [id number] / / [id number] Vince Solera Crv Ti 5.5x30mm [id number] - [id number] Implanted:Qty : 2 on 06/21/2020 by Jan Hoffman MD Vince N/A: Back [employer]- SO[employer]OR [employer]ANEK 06/21/2021 [id number] / / [id number] Screw Cdh 6.5x35mm 5.5/6.0 Mas Cc [id number] - [id number] Implanted:Qty : 2 on 06/21/2020 by Jan Hoffman MD Screw N/A: Back [employer] 06/21/2021 [id number] / / [id number] Screw Cdh 6.5x45mm 5.5/6.0 Mas Cc [id number] - [id number] Implanted:Qty : 2 on 06/21/2020 by Jan Hoffman MD Screw N/A: Back [employer] 06/21/2021 [id number] / / [id number] Screw Solera 5.5/6.0 Breakoff [id number] - [id number] Implanted:Qty : 4 on 06/21/2020 by Jan Hoffman MD Screw N/A: Back [employer] 06/21/2021 [id number] / / [id number] Putty Dbx Dbm 1ml 37445 - [id number] Implanted:Qty : 1 on 06/21/2020 by Jan Hoffman MD Tissue N/A: Back MUSCULOSKELETAL TRANSPLANT FOU 07/21/2021 [id number] / [id number] Readigraft Canc Chips 15ml Can15 14bp - [id number] Implanted:Qty : 1 on 06/21/2020 by Jan Hoffman MD Tissue N/A: Back LIFENET 08/07/2024 CAN15 14BP / / [id number] Procedures Procedure Name Priority Date/Time Associated Diagnosis Comments URINE CULTURE Routine 08/06/2025 8:43 AM WATCH AND CLOCK MAKER AND REPAIRER Recurrent UTI POC URINALYSIS DIPSTICK AUTOMATED Routine 08/06/2025 8:05 AM WATCH AND CLOCK MAKER AND REPAIRER Recurrent UTI HM DIABETES EYE EXAM Routine 08/01/2025 10:28 AM WATCH AND CLOCK MAKER AND REPAIRER URINE CULTURE Routine 07/25/2025 11:26 AM WATCH AND CLOCK MAKER AND REPAIRER Recurrent UTI VITAMIN B12 LEVEL Routine 07/25/2025 11: 24 AM WATCH AND CLOCK MAKER AND REPAIRER Need for influenza vaccination Type 2 diabetes mellitus with diabetic polyneuropathy, with long-term current use of insulin (CMS/HCC) Type 2 diabetes mellitus with stage 3b chronic kidney disease, without long-term current use of insulin (CMS/HCC) MAGNESIUM LEVEL Routine 07/25/2025 11:24 AM WATCH AND CLOCK MAKER AND REPAIRER Need for influenza vaccination Type 2 diabetes mellitus with diabetic polyneuropathy, with long-term current use of insulin (CMS/HCC) Type 2 diabetes mellitus with stage 3b chronic kidney disease, without long-term current use of insulin (CMS/HCC) HEMOGLOBIN A1C Routine 07/25/2025 11:24 AM WATCH AND CLOCK MAKER AND REPAIRER Need for influenza vaccination Type 2 diabetes mellitus with diabetic polyneuropathy, with long-term current use of insulin (CMS/HCC) Type 2 diabetes mellitus with stage 3b chronic kidney disease, without long-term current use of insulin (CMS/HCC) LIPID PANEL Routine 07/25/2025 11:24 AM WATCH AND CLOCK MAKER AND REPAIRER Need for influenza vaccination Type 2 diabetes mellitus with diabetic polyneuropathy, with long-term current use of insulin (CMS/HCC) Type 2 diabetes mellitus with stage 3b chronic kidney disease, without long-term current use of insulin (CMS/HCC) TSH Routine 07/25/2025 11:24 AM WATCH AND CLOCK MAKER AND REPAIRER Need for influenza vaccination Type 2 diabetes mellitus with diabetic polyneuropathy, with long-term current use of insulin (CMS/HCC) Type 2 diabetes mellitus with stage 3b chronic kidney disease, without long-term current use of insulin (CMS/HCC) COMPREHENSIVE METABOLIC PANEL Routine 07/25/2025 11:24 AM WATCH AND CLOCK MAKER AND REPAIRER Need for influenza vaccination Type 2 diabetes mellitus with diabetic polyneuropathy, with long-term current use of insulin ([facility]) Type 2 diabetes mellitus with stage 3b chronic kidney disease, without long-term current use of insulin ([facility]) CBC WITH DIFFERENTIAL Routine 07/25/2025 11:24 AM WATCH AND CLOCK MAKER AND REPAIRER Need for influenza vaccination Type 2 diabetes mellitus with diabetic polyneuropathy, with long-term current use of insulin ([facility]) Type 2 diabetes mellitus with stage 3b chronic kidney disease, without long-term current use of insulin ([facility]) POC URINALYSIS DIPSTICK NON AUTOMATED Routine 07/25/2025 10:00 AM WATCH AND CLOCK MAKER AND REPAIRER Recurrent UTI POC URINALYSIS DIPSTICK NON AUTOMATED [...] METABOLIC PANEL Routine 06/20/2025 3:57 PM CDT MICROALBUMIN/CREATINI NE RATIO, RANDOM UR Routine 10/23/2024 5:02 PM WATCH AND CLOCK MAKER AND REPAIRER OCCULT BLOOD IMMUNOASSAY, COLORECTAL SCREEN Routine 03/31/2023 10:41 AM CDT HM DIABETES FOOT EXAM 12/23/2020 12:00 AM CDT COLON CANCER SCREEN, STOOL DNA Routine 05/17/2019 4:15 PM CDT XR DEXA BONE DENSITY AXIAL 1 OR MORE SITES Routine 07/30/2015 1:58 PM WATCH AND CLOCK MAKER AND REPAIRER Postmenopausal atrophic vaginitis from Last 3 Months or Most Recently Relevant to Health Maintenance Results * URINE CULTURE (08/06/2025 8:43 AM WATCH AND CLOCK MAKER AND REPAIRER) Only the most recent of3 resultswithin the time period is included. URINE CULTURE SEE NOTE [facility] [place] Comment: CULTURE, URINE, ROUTINE Micro Number: [id number] Test Status: Final Specimen Source: Urine Specimen Quality: Adequate Result: Less than 10,000 CFU/mL of single Gram positive organism isolated. No further testing will be performed. If clinically indicated, recollection using a method to minimize contamination, with prompt transfer to Urine Culture Transport Tube, is recommended. Test Performed at: [facility] [address] [facility] [place] [address] Isabel Colby MD Urine URINE SPECIMEN OBTAINED BY CLEAN CATCH PROCEDURE / Unknown 08/06/2025 8:43 AM WATCH AND CLOCK MAKER AND REPAIRER 08/07/2025 7:08 AM WATCH AND CLOCK MAKER AND REPAIRER December Wilson [facility] MICROBIOLOGY - GENERAL ORDERABLE S Final Result [facility] [phone] [facility] [place] [address] [facility] [place] [address] * (ABNORMAL) POC URINALYSIS DIPSTICK AUTOMATED (08/06/2025 8:05 AM WATCH AND CLOCK MAKER AND REPAIRER) Only the most recent of2 resultswithin the time period is included. COLOR UA POC Yellow Pale to Dark Yellow [facility] CLARITY UA POC Clear Clear, Other ME ON LICENSE OF [facility] GLUCOSE UA POC Negative Negative, Normal [facility] BILIRUBIN UA POC Negative Negative [facility] KETONES UA POC Negative Negative [facility] SPECIFIC GRAVITY UA POC 1.015 1.000 - 1.030 [facility] BLOOD UA POC Trace(A) Negative [facility] C LIN[facility] PH UA POC 7.0 5.0 - 8.0 [facility] PROTEIN UA POC Negative Negative [facility] UROBILINOGEN UA POC 0.2 <2.0 mg/dL [facility] NITRITE UA POC Negative Negative [facility] LEUKOCYTE ESTERASE UA POC Negative Negative [facility] KIT LOT NUMBER POC [id number],040 [facility] KIT EXP DATE POC 03/19/2026 [facility] Urine 08/06/2025 8:05 AM WATCH AND CLOCK MAKER AND REPAIRER December CREW BOSS POINT OF CARE TESTING Final Resu lt [facility] CLIA# [id number] [address] [place] [address] * (ABNORMAL) DIABETES EYE EXAM (08/01/2025 10:28 AM WATCH AND CLOCK MAKER AND REPAIRER) Abstract Provider HEALTH MAINTENANCE Edited Resu lt - Final * (ABNORMAL) CBC WITH DIFFERENTIAL (07/25/2025 11:24 AM WATCH AND CLOCK MAKER AND REPAIRER) WBC 8.6 3.8 - 10.8 Thousand/u L [...] [facility] Comment: Test Performed at: [facility] [address] [place] [address] Isabel Colby MD Blood 07/25/2025 11:2 4 AM WATCH AND CLOCK MAKER AND REPAIRER 07/25/2025 11:25 AM WATCH AND CLOCK MAKER AND REPAIRER us Adrienne March DO HEMATOLOGY ORDERABLES Final Result Performing Organization Address City/[facility]/ZIP Co de Phone Number [facility] [phone] [facility] [address] [place] [address] * TSH (07/25/2025 11:24 AM WATCH AND CLOCK MAKER AND REPAIRER) TSH 3.09 0.40 - 4.50 mIU/L [facility] Comment: Test Performed at: [facility] [address] [place] [address] Isabel Colby MD Blood 07/25/2025 11:2 4 AM WATCH AND CLOCK MAKER AND REPAIRER 07/25/2025 11:25 AM WATCH AND CLOCK MAKER AND REPAIRER us Adrienneemma Hernandezehan DO CHEMISTRY ORDERABLES Final Result [facility] [phone] [facility] [place] [address] * (ABNORMAL) MAGNESIUM LEVEL (07/25/2025 11:24 AM WATCH AND CLOCK MAKER AND REPAIRER) Pathologist [facility] MAGNESIUM 2.6(H) 1.5 - 2.5 mg/dL [facility] [place] [facility] Comment: Test Performed at: [facility] [place] [address] Isabel Colby MD Blood 07/25/2025 11:2 4 AM WATCH AND CLOCK MAKER AND REPAIRER 07/25/2025 11:25 AM WATCH AND CLOCK MAKER AND REPAIRER Adrienne March DO CHEMISTRY ORDERABLES Final Result [facility] [place] [phone] [facility] [address] * (ABNORMAL) HEMOGLOBIN A1C (07/25/2025 11:24 AM WATCH AND CLOCK MAKER AND REPAIRER) [facility] HEMOGLOBIN A1C 7.3(H) <5.7 % [facility] Comment: For [...] [facility] Comment: Test Performed at: [facility] [place] [address] Isabel Colby MD Blood 07/25/2025 11:2 4 AM WATCH AND CLOCK MAKER AND REPAIRER 07/25/2025 11:25 AM WATCH AND CLOCK MAKER AND REPAIRER us Adrienne [employer] CHEMISTRY ORDERABLES Final Result Performing Organization Address [facility] Co de Phone Number [facility] [place] [phone] [address] * VITAMIN B12 LEVEL (07/25/2025 11:24 AM WATCH AND CLOCK MAKER AND REPAIRER) VITAMIN B12 258 200 - 1100 pg/mL [facility] Comment: Please Note: Although the reference range for vitamin B12 is 200-1100 pg/mL, it has been reported that between 5 and 10% of patients with values between 200 and 400 pg/mL may experience neuropsychiatric and hematologic abnormalities due to occult B12 deficiency; less than 1% of patients with values above 400 pg/mL will have symptoms. Test Performed at: [facility] [address] Isabel Colby MD Blood 07/25/2025 11:2 4 AM WATCH AND CLOCK MAKER AND REPAIRER 07/25/2025 11:25 AM WATCH AND CLOCK MAKER AND REPAIRER Adrienne AvaLAN [employer] CHEMISTRY ORDERABLES Final Result Performing Organization Address [facility] de Phone Number [facility] [place] [phone] [facility] [place] [address] * (ABNORMAL) LIPID PANEL (07/25/2025 11:24 AM WATCH AND CLOCK MAKER AND REPAIRER) CHOLESTEROL 232(H) <200 mg/dL [facility] HDL 70 > OR = 50 mg/dL [facility] TRIGLYCERIDE 230(H) <150 mg/dL [facility] Comment: If a non-fasting specimen was collected, consider repeat triglyceride testing on a fasting specimen if clinically indicated. Gissel et al. J. of Clin. Lipidol. 2015;9:129-169. LDL CALCULATED 125(H) mg/dL (calc) [facility] Comment: Reference [...] LDL-C. Vimal MADERA et al. NATALIIA. 2013;310(19): 0923-9050 (http://education.Medsurant Monitoring/faq/KIZ407) CHOL/HDL RATIO 3.3 <5.0 (calc) [facility] NON-HDL CHOLESTEROL 162(H) <130 mg/dL (calc) [facility] Comment: For patients with diabetes plus 1 major ASCVD risk factor, treating to a non-HDL-C goal of <100 mg/dL (LDL-C of <70 mg/dL) is considered a therapeutic option. Test Performed at: [facility] [address] [place] [address] Isabel Colby MD Blood 07/25/2025 11:2 4 AM WATCH AND CLOCK MAKER AND REPAIRER 07/25/2025 11:25 AM WATCH AND CLOCK MAKER AND REPAIRER us Adrienne March DO CHEMISTRY ORDERABLES Final Result [facility] [place] [phone] [employer] [address] * (ABNORMAL) COMPREHENSIVE METABOLIC PANEL (07/25/2025 11:24 AM WATCH AND CLOCK MAKER AND REPAIRER) Only the most recent of2 resultswithin the time period is included. GLUCOSE 396(H) 65 - 99 mg/dL [facility] Comment: Verified by repeat analysis. Fasting reference interval For someone without known diabetes, a glucose value >125 mg/dL indicates that they may have diabetes and this should be confirmed with a follow-up test. BUN 20 7 - 25 mg/dL [facility] CREATININE 1.24(H) 0.60 - 1.00 mg/dL [...] [facility] Comment: Test Performed at: [facility] [address] [place] [address] Isabel Colby MD Blood 07/25/2025 11:2 4 AM WATCH AND CLOCK MAKER AND REPAIRER 07/25/2025 11:25 AM WATCH AND CLOCK MAKER AND REPAIRER Adrienne March DO CHEMISTRY ORDERABLES Final Result [facility] [place] [phone] [facility] [place] [address] [place] [address] * (ABNORMAL) POC URINALYSIS DIPSTICK NON AUTOMATED (07/25/2025 10:00 AM WATCH AND CLOCK MAKER AND REPAIRER) Only the most recent of2 resultswithin the time period is included. COLOR UA POC Yellow Pale to Dark Yellow [facility] CLARITY UA POC Clear Clear, Other ME ON LICENSE OF [facility] GLUCOSE UA POC 2+(A) Negative, Normal [facility] BILIRUBIN UA POC Negative Negative [facility] KETONES UA POC Negative Negative [facility] SPECIFIC GRAVITY UA POC 1.020 1.000 - 1.030 [facility] BLOOD UA POC Negative Negative [facility] C LINIC [facility] PH UA POC 6.5 5.0 - 8.0 [facility] CLIN IC [facility] PROTEIN UA POC 1+(A) Negative [facility] UROBILINOGEN UA POC 0.2 <2.0 mg/dL [facility] NITRITE UA POC Negative Negative [facility] LEUKOCYTE ESTERASE UA POC Negative Negative [facility] KIT LOT NUMBER POC [phone] [facility] KIT EXP DATE POC 03/19/2026 [facility] Urine 07/25/2025 10:0 0 AM WATCH AND CLOCK MAKER AND REPAIRER us Adrienne March DO POINT OF CARE TESTING Final Result [facility] CLIA# [id number] [address] [place] [address] * XR ABDOMEN 1 VW (07/10/2025 4:02 [...] MICROALBUMIN/CREATININE RATIO, RANDOM UR (10/23/2024 5:02 PM WATCH AND CLOCK MAKER AND REPAIRER) Creatinine, Urine 60 20 - 275 mg/dL [...] within a diagnostic category. Test Performed at: [facility] [address] [address] [address] Isabel Colby MD Urine URINE SPECIMEN OBTAINED BY CLEAN CATCH PROCEDURE / Unknown 10/23/2024 5:02 PM WATCH AND CLOCK MAKER AND REPAIRER 10/24/2024 2:46 AM WATCH AND CLOCK MAKER AND REPAIRER Mirella Wilson [facility] URINE ORDERABLES Final Result [facility] [place] [phone] [facility] [address] [place] [address] * OCCULT BLOOD IMMUNOASSAY, COLORECTAL SCREEN (03/31/2023 10:41 AM CDT) Stool STOOL SPECIMEN / Unknown Abstract Provider BODY FLUIDS AND STOOLS Final R esult * HM DIABETES FOOT EXAM (12/23/2020 12:00 AM CDT) Adrienne March DO HEALTH MAINTENANCE Edited R esult - Final * COLON CANCER SCREEN, STOOL DNA (05/17/2019 4:15 PM CDT) COLOGUARD RESULT Negative Not Applicable 05/24/2019 3:08 PM CDT [facility] Comment: A negative result indicates a low [...] (Linette Emerson al, N Engl J Med 2014;370(14):3413-5894) COLOGUARD RE-SCREENING RECOMMENDATION: Periodic routine colorectal cancer screening is an important part of preventive healthcare for asymptomatic persons at average risk for colorectal cancer. Following a negative Cologuard result, the [place] Cancer Society and U.S. Multi-Society Task Force screening guidelines recommend a Cologuard re-screening interval of 3 years. References: [place] Cancer Society (ACS). Colorectal cancer prevention and early detection. [place], [place]: [place] [employer] Society; [updated 2015Jan 11]. https://www.cancer.org/cancer/gctyo-lbzrdr-hrwhfu/dbmweamju-fquiuccwq-ygfubeh/ac s-rec ommendations.html. Accessed May 20, 2018; Héctor DK, Marleny CR, Cruzito FitchK, Colorectal Cancer Screening: Recommendations for Physicians and Patients from the U.S. Multi-Society Task Force on Colorectal Cancer Screening, Am J Gastroenterology 2017; 112:4119-3226. Test Type: Composite algorithmic analysis of stool [...] can be accessed at the following location: www.geolad.Bio[employer]rapeutics/results. Additional description of the Cologuard test process, warnings and precautions can be found at www.cologuardtest.com. Rx Only. Stool STOOL SPECIMEN / Unknown 05/17/2019 4:15 PM CDT 05/18/2019 11:04 PM CDT Adrienne March DO BODY FLUIDS AND STOOLS Rosetta terrazas Result [facility] CLIA # [id number] [address] , [address] [place] [address] * XR DEXA BONE DENSITY AXIAL 1 OR MORE SITES (07/30/2015 1:58 PM WATCH AND CLOCK MAKER AND REPAIRER) Anatomical Region Laterality Modality Other Narrative 07/31/2015 8:08 AM WATCH AND CLOCK MAKER AND REPAIRER PROCEDURE DEXA BONE DENSITY, 30 July [...] Recently Relevant to Health Maintenance Insurance MEDICAID [facility] DUAL ADVANTAGE HMO DSNP * Guarantor: MARY MATIAS Account Type Relation to Patient Date of Phone Billing Address Personal/Family [address] [place] [phone] RX WEAVER PLANS (INTERNAL) [facility] Internal Plans RX [facility] Medicare Part D Advance Directives For more information, please contact: [phone] * Full Code (Latest Code Status on File) Date Activated Date Inactivated Comments 07/20/2024 3:46 AM 07/24/2024 6:49 PM Care Teams Aquarium Tank Attendant Relationship Specialty Start Date End Date Adrienne March DO [address] [place] [address] PCP - General Family Practice 06/30/10
--- OUTSIDE RECORDS SUMMARY | 2025-09-13 00:38 | XMS_ITS | Encounter Summary ---
Author Organization [facility] Address [address] [place] [address] Care Team Providers Care Bag Making Machine Tender Name Role Phone Adrienne March DO Primary Care Provider [phone] Encounter Details Date Type Department Care Team (Latest Contact Info) Description 01/27/2001 Outpatient [facility] Podiatry-[facility] [place] [address] [place] [address] Abel Hurtado, MARCE NO ADDRESS ON FILE Calcaneal spur (Primary Dx); Tenosynovitis of foot and ankle; Cellulitis and abscess of foot, except toes; Pain in limb Social History Tobacco Use Types Packs/Day Years Used Date Smoking Tobacco: Never Assessed Comments Unknown Sex and Gender Information Value Date Recorded Sex Assigned at Not on file Legal Sex Female 3:34 AM METAL STAMPER Gender Identity Not on file Sexual Orientation Not on file documented as of this encounter Plan of Treatment Not on file documented as of this encounter Visit Diagnoses Diagnosis Calcaneal spur- Primary Tenosynovitis of foot and ankle Cellulitis and abscess of foot, except toes Pain in limb Pain in soft tissues of limb documented in this encounter Care Teams Bag Making Machine Tender Relationship Specialty Start Date End Date Adrienne March DO [address] [place] [address] PCP - General Family Practice 06/30/10 documented as of this encounter
--- OUTSIDE RECORDS SUMMARY | 2025-09-13 00:38 | XMS_ITS | Encounter Summary ---
Author Organization [facility] Address [address] [place] [address] Care Team Providers Care Container Packer Operator Name Role Phone Adrienne March DO Primary Care Provider Encounter Details Date Type Department Care Team (Latest Contact Info) Description 06/12/2004 Outpatient Historical [facility] [address] [place] [address] Jose Luis Mcmillan MD [address] [place] [address] JOINT PAIN-SHLDER (Primary Dx) Social History Tobacco Use Types Packs/Day Years Used Date Smoking Tobacco: Never Assessed Comments Unknown Sex and Gender Information Value Date Recorded Sex Assigned at Not on file Legal Sex Female 3:34 AM RIVETER Gender Identity Not on file Sexual Orientation Not on file documented as of this encounter Plan of Treatment Not on file documented as of this encounter Visit Diagnoses Diagnosis Pain in joint, shoulder region- Primary documented in this encounter Care Teams Container Packer Operator Relationship Specialty Start Date End Date Adrienne March DO [address] [place] [address] PCP - General Family Practice 06/30/10 documented as of this encounter
--- OUTSIDE RECORDS SUMMARY | 2025-09-13 00:38 | XMS_ITS | Encounter Summary ---
Author Organization [facility] Address [address] Seg[place]: [place] [address] Care Team Providers Care Refinery Process Engineer Name Role Phone Adrienne March DO Primary Care Provider [phone] Encounter Details Date Type Department Care Team (Late st Contact Info) Description 06/30/2000 Outpatient Historical Umang Urrutia MD [address] [place] [address] Social History Tobacco Use Types Packs/Day Years Used Date Smoking Tobacco: Never Assessed Comments Unknown Sex and Gender Information Value Date Recorded Sex Assigned at Not on file Legal Sex Female 3:34 AM WEAVING INSTRUCTOR Gender Identity Not on file Sexual Orientation Not on file documented as of this encounter Plan of Treatment Not on file documented as of this encounter Visit Diagnoses Not on filedocumented in this encounter Care Teams Refinery Process Engineer Relationship Specialty Start Date End Date Adrienne March DO [address] [place] [address] PCP - General Family Practice 06/30/10 documented as of this encounter
--- OUTSIDE RECORDS SUMMARY | 2025-09-13 00:38 | XMS_ITS | Encounter Summary ---
Author Organization [facility] Address [address] [place] [address] Care Team Providers Care Loan Processing Supervisor Name Role Phone Adrienne March DO Primary Care Provider Encounter Details Date Type Department Care Team (Latest Contact Info) Description 07/07/2001 Outpatient [facility]iatry-[facility] [address] [place] [address] Abel Hurtado, MARCE NO ADDRESS ON FILE Calcaneal spur (Primary Dx); Plantar fibromatosis; Pain in limb Social History Tobacco Use Types Packs/Day Years Used Date Smoking Tobacco: Never Assessed Comments Unknown Sex and Gender Information Value Date Recorded Sex Assigned at Not on file Legal Sex Female 3:34 AM LEVEL VIAL CURVATURE GAUGER Gender Identity Not on file Sexual Orientation Not on file documented as of this encounter Plan of Treatment Not on file documented as of this encounter Visit Diagnoses Diagnosis Calcaneal spur- Primary Plantar fibromatosis Plantar fascial fibromatosis Pain in limb Pain in soft tissues of limb documented in this encounter Care Teams Loan Processing Supervisor Relationship Specialty Start Date End Date Adrienne March DO [address] [place] [address] PCP - General Family Practice 06/30/10 documented as of this encounter
--- OUTSIDE RECORDS SUMMARY | 2025-09-13 00:38 | XMS_ITS | Encounter Summary ---
Author Organization [facility] Address [address] [place] [address] Care Team Providers Care Jail Officer Name Role Phone Adrienne March DO Primary Care Provider Reason for Visit * Reason Comments Medication Refill Encounter Details Date Type Department Care Team (Late st Contact Info) Description 03/21/2025 Telephone [facility] Medicine [place] [address] [place] [address] Adrienne March DO [address] [place] [address] Medication Refill Social History Tobacco [...] on file Legal Sex Female 6:27 AM GREASE MAKER HEAD Gender Identity Not on file Sexual Orientation [...] - 03/21/2025 12:32 PM CDT Copied from [facility] #[id number]. Topic: Medication Request >> Mar 21, 2025 12:31 PM Latisha Garcia wrote: Caller Name: Patient Callback Number: [phone] Medication (Ask patient/caregiver to spell if possible): furosemide (Lasix) 40 mg tablet Note: All medication prescriptions can be requested using one [facility] Preferred Pharmacy: [id number] - [place], [place] - [address] [address] Call Notes: Patient is totally out of [...] st Contact Info) Description 10/10/2025 10:40 AM GREASE MAKER HEAD Procedure visit [facility] [place] [address] [place] [address] Davi Ferguson MD [address] [place] [address] 10/25/2025 1:40 PM GREASE MAKER HEAD Office Visit [facility] [address] [place] [address] Adrienne March, DO [address] [place] [address] 01/23/2026 11:20 AM CDT Office Visit [facility] [address] [place] [address] Adrienne March, DO [address] [place] [address] 04/22/2026 1:20 PM CDT Office Visit [facility] [address] [place] [address] Cori Ochoa [facility] [address] [place] [address] documented as of this encounter Visit Diagnoses Not on filedocumented in this encounter Care Teams Jail Officer Relationship Specialty Start Date End Date Adrienne March DO [address] [place] [address] PCP - General Family Practice 06/30/10 documented as of this encounter
--- OUTSIDE RECORDS SUMMARY | 2025-09-13 00:38 | XMS_ITS | Encounter Summary ---
Author Organization [facility] Address [address] [place] [address] Care Team Providers Care Bioinformatics Technician Name Role Phone Adrienne March DO Primary Care Provider [phone] Encounter Details Date Type Department Care Team (Latest Contact Info) Description 01/26/2005 Outpatient Historical [facility] [place] [address] [place] [address] [facility] FEMUR NOS-CLOSED (CMS/HCC) (Primary Dx) Social History Tobacco Use Types Packs/Day Years Used Date Smoking Tobacco: Never Assessed Comments Unknown Sex and Gender Information Value Date Recorded Sex Assigned at Not on file Legal Sex Female 3:34 AM ORAL THERAPIST Gender Identity Not on file Sexual Orientation Not on file documented as of this encounter Plan of Treatment Not on file documented as of this encounter Visit Diagnoses Diagnosis Closed fracture of unspecified part of femur- Primary documented in this encounter Care Teams Bioinformatics Technician Relationship Specialty Start Date End Date Adrienne March DO [address] [place] [address] PCP - General Family Practice 06/30/10 documented as of this encounter
--- OUTSIDE RECORDS SUMMARY | 2025-09-13 00:38 | XMS_ITS | Encounter Summary ---
Author Organization [facility] Address [address] Segaln: [place] [address] Care Team Providers Care Dispensary Technician Name Role Phone Adrienne March DO Primary Care Provider [phone] Encounter Details Date Type Department Care Team (Late st Contact Info) Description 08/31/2000 Outpatient Historical Umang Urrutia MD [address] [place] [address] Social History Tobacco Use Types Packs/Day Years Used Date Smoking Tobacco: Never Assessed Comments Unknown Sex and Gender Information Value Date Recorded Sex Assigned at Not on file Legal Sex Female 3:34 AM ASSEMBLER FLEXIBLE LEADS Gender Identity Not on file Sexual Orientation Not on file documented as of this encounter Plan of Treatment Not on file documented as of this encounter Visit Diagnoses Not on filedocumented in this encounter Care Teams Dispensary Technician Relationship Specialty Start Date End Date Adrienne March DO [address] [place] [address] PCP - General Family Practice 06/30/10 documented as of this encounter
--- OUTSIDE RECORDS SUMMARY | 2025-09-13 00:38 | XMS_ITS | Encounter Summary ---
Author Organization [facility] Address [address] [place] [address] Care Team Providers Care Boiler Operator Name Role Phone Adrienne March DO Primary Care Provider Encounter Details Date Type Department Care Team (Latest Contact Info) Description 08/01/2004 Outpatient Historical [facility] [address] [place] [address] Wilfredo Michel MD [address] [address] Muscle weakness (Primary Dx) Social History Tobacco Use Types Packs/Day Years Used Date Smoking Tobacco: Never Assessed Comments Unknown Sex and Gender Information Value Date Recorded Sex Assigned at Not on file Legal Sex Female 3:[address] OPERATOR Gender Identity Not on file Sexual Orientation Not on file documented as of this encounter Plan of Treatment Not on file documented as of this encounter Visit Diagnoses Diagnosis Muscle weakness- Primary Muscle weakness (generalized) documented in this encounter Care Teams Boiler Operator Relationship Specialty Start Date End Date Adrienne March DO [address] [place] [address] PCP - General Family Practice 06/30/10 documented as of this encounter
--- OUTSIDE RECORDS SUMMARY | 2025-09-13 00:38 | XMS_ITS | Encounter Summary ---
Author Organization [facility] Address [address] [place] [address] Care Team Providers Care Class A Truck Driver Name Role Phone Adrienne March DO Primary Care Provider Encounter Details Date Type Department Care Team (Latest Contact Info) Description 05/27/2004 Outpatient [facility] [address] [place] [address] [place] [address] [address] Jose Luis Mcmillan MD [address] [place] [address] JOINT PAIN-SHLDER (Primary Dx) Social History Tobacco Use Types Packs/Day Years Used Date Smoking Tobacco: Never Assessed Comments Unknown Sex and Gender Information Value Date Recorded Sex Assigned at Not on file Legal Sex Female 3:34 AM DATA INTEGRITY ANALYST Gender Identity Not on file Sexual Orientation Not on file documented as of this encounter Plan of Treatment Not on file documented as of this encounter Visit Diagnoses Diagnosis Pain in joint, shoulder region- Primary documented in this encounter Care Teams Class A Truck Driver Relationship Specialty Start Date End Date Adrienne March DO [address] [place] [address] PCP - General Family Practice 06/30/10 documented as of this encounter
--- OUTSIDE RECORDS SUMMARY | 2025-09-13 00:38 | XMS_ITS | Encounter Summary ---
Author Organization [facility] Address [address] [place] [address] Care Team Providers Care Financial Reporting Analyst Name Role Phone Adrienne March DO Primary Care Provider Encounter Details Date Type Department Care Team (Latest Contact Info) Description 01/08/2004 Outpatient [facility] [address] [address] Jose Luis Mcmillan MD [address] [place] [address] NEURALGIA/NEURITIS NOS (Primary Dx) Social History Tobacco Use Types Packs/Day Years Used Date Smoking Tobacco: Never Assessed Comments Unknown Sex and Gender Information Value Date Recorded Sex Assigned at Not on file Legal Sex Female 3:34 AM TOOL SHAPER SET UP OPERATOR Gender Identity Not on file Sexual Orientation Not on file documented as of this encounter Plan of Treatment Not on file documented as of this encounter Visit Diagnoses Diagnosis Neuralgia, neuritis, and radiculitis, unspecified- Primary documented in this encounter Care Teams Financial Reporting Analyst Relationship Specialty Start Date End Date Adrienne March DO [address] [place] [address] PCP - General Family Practice 06/30/10 documented as of this encounter
--- OUTSIDE RECORDS SUMMARY | 2025-09-13 00:38 | XMS_ITS | Encounter Summary ---
Author Organization [facility] Address [address] [place] [address] Care Team Providers Care Flexible Shaft Winder Name Role Phone Adrienne March DO Primary Care Provider Encounter Details Date Type Department Care Team (Latest Contact Info) Description 11/12/2000 Outpatient Historical [facility] Internal Medicine- [address] [place] [address] Umang Urrutia MD [address] [place] [address] Type II or unspecified type [...] on file Legal Sex Female 3:34 AM JUNIOR SYSTEMS ANALYST Gender Identity Not on file [...] spur documented in this encounter Care Teams Flexible Shaft Winder Relationship Specialty Start Date End Date Adrienne March DO [address] [place] [address] PCP - General Family Practice 06/30/10 documented as of this encounter
--- OUTSIDE RECORDS SUMMARY | 2025-09-13 00:38 | XMS_ITS | Encounter Summary ---
Author Organization [facility] Address [address] [place]: [place] [address] Care Team Providers Care Director Operating Room Name Role Phone Adrienne March DO Primary Care Provider [phone] Encounter Details Date Type Department Care Team (Late st Contact Info) Description 02/21/2001 Outpatient Historical Abel Hurtado, DPM NO ADDRESS ON FILE Social History Tobacco Use Types Packs/Day Years Used Date Smoking Tobacco: Never Assessed Comments Unknown Sex and Gender Information Value Date Recorded Sex Assigned at Not on file Legal Sex Female 3:34 AM EXECUTIVE VICE PRESIDENT AND CHIEF OPERATING OFFICER Gender Identity Not on file Sexual Orientation Not on file documented as of this encounter Plan of Treatment Not on file documented as of this encounter Visit Diagnoses Not on filedocumented in this encounter Care Teams Director Operating Room Relationship Specialty Start Date End Date Adrienne March DO [address] [facility] [place] [address] PCP - General Family Practice 06/30/10 documented as of this encounter
--- OUTSIDE RECORDS SUMMARY | 2025-09-13 00:38 | XMS_ITS | Clinical Summary ---
Author Organization [facility] Address [address] [place] [address] Care Team Providers Care Can Inspector Name Role Phone Adrienne March Primary Care Provider Allergies Active Allergy Reactions Criticality Noted Date Comments Adhesive Tape-Silicones Rash Low 09/05/2020 Amoxicillin-Pot Clavulanate Diarrhea,Abdominal Pain Medium 09/07/2008 Codeine Unknown 04/09/2009 Semaglutide Other (See Comments) 07/13/2018 just didn't feel good Silver Sulfadiazine Swelling Low 12/29/2013 Medications fluticasone (FLONASE) 50 mcg/spray [place], SuspensionIndica tions:Acute non-recurrent maxillary sinusitis SHAKE LIQUID [...] Tablet 11 0 Active blood sugar diagnostic ([employer] Ultra Blue Test Strip) Strip USE TO [...] TAKE 1 TABLET(125 MCG) BY MOUTH DAILY QUARANTINE OFFICER 90 Tablet 1 Active potassium chloride (KLOR-CON) [...] file Legal Sex Female 3:34 AM CUSTOMER ADVOCACY MANAGER Gender Identity Not on file Sexual [...] - 1-dose 75+ series) 2022 Medicare Advantage ([place]) Preventative Visit/Annual Wellness Visit 09/20/2024 12/23/2020, 05/23/2020, [...] years Discontinued Medical Devices Implanted Type Area Washer Cutter Device Identifier Shelf Expiration Date Model / Serial / Lot Cement Simplex Hvisc 6194-1-010 - [id number] Implanted:01/2020 by Marco A Lewis MD at [facility] (Quantity not on file) Cement Left: Knee JAMSHID- LinQpayCA INT INC [id number] 03/19/2021 6194-1-010 / / [id number] Cement Simplex Hvisc 6194-1-010 - [id number] Implanted:01/2020 by Marco A Lewis MD at [facility] (Quantity not on file) Cement Left: Knee JAMSHID- HOWMEDICA INT INC [id number] 03/19/2021 6194-1-010 / / [id number] Hemostatic Surgifoam 1gm 1977 - [id number] Implanted:Qty : 1 on 06/21/2020 by Jan Hoffman MD at [facility] Hemostatic N/A: Back J&J- ETHICON INC [id number] 10/26/20211977 / / [id number] Insert Attune Fb Cr Sz4 6mm 1516-20-406 - [id number] Implanted:Qty : 1 on 11/23/2019 by Marco A Lewis MD at [facility] Knee Left: Knee J&J- [employer]Y [employer] [id number] 03/19/2023 [id number] / / [id number] Comp Fem Attune Cr Cmnt Sz4 1504-00-104 - [id number] Implanted:Qty : 1 on 11/23/2019 by Marco A Lewis MD at [facility] Knee Left: Knee J&J- [employer] [id number] 09/19/2029 [id number] / / [id number] Comp Tib Attune Fb Cmnt Sz5 1506-70-005 - [id number] Implanted:Qty : 1 on 11/23/2019 by Marco A Lewis MD at [facility] Knee Left: Knee J&J- [employer] [id number] 08/19/2029 [id number] / / [id number] Vince Solera Crv Ti 5.5x30mm [id number] - [id number] Implanted:Qty : 2 on 06/21/2020 by Jan Hoffman MD at [facility] Vince N/A: Back MEDTRONIC- SOFAMOR DANEK 06/21/2021 [id number] / / [id number] Screw Solera 5.5/6.0 Breakoff [id number] - [id number] Implanted:Qty : 4 on 06/21/2020 by Jan Hoffman MD at [facility] Screw N/A: Back [employer]- SOFAMOR DANEK 06/21/2021 [id number] / / [id number] Screw Cdh 6.5x45mm 5.5/6.0 Mas Cc [id number] - [id number] Implanted:Qty : 2 on 06/21/2020 by Jan Hoffman MD at [facility] Screw N/A: Back [employer]- SOFAMOR DANEK 06/21/2021 [id number] / / [id number] Screw Cdh 6.5x35mm 5.5/6.0 Mas Cc [id number] - [id number] Implanted:Qty : 2 on 06/21/2020 by Jan Hoffman MD at [facility] Screw N/A: Back [employer]- SOFAMOR DANEK 06/21/2021 [id number] / / [id number] Putty Dbx Dbm 1ml 46112 - [id number] Implanted:Qty : 1 on 06/21/2020 by Jan Hoffman MD at [facility] Tissue N/A: Back MUSCULOSKELETAL TRANSPLANT FOU 07/21/2021 [id number] / [id number] Readigraft Canc Chips 15ml Can15 14bp - [id number] Implanted:Qty : 1 on 06/21/2020 by Jan Hoffman MD at [facility] Tissue N/A: Back LIFENET 08/07/2024 CAN15 14BP / / [id number] Procedures Procedure Name Priority Date/Time Associated Diagnosis Comments DIABETES FOOT EXAM Routine 12/23/2020 DIABETES EYE EXAM Routine 06/04/2020 LIPID PANEL Routine 05/23/2020 10:48 AM CDT Type 2 diabetes mellitus with diabetic peripheral angiopathy without gangrene, without long-term current use of insulin ([facility]) HEMOGLOBIN A1C Routine 05/23/2020 10:48 AM CDT Type 2 diabetes mellitus with diabetic peripheral angiopathy without gangrene, without long-term current use of insulin ([facility]) COLON CANCER SCREEN, STOOL DNA Routine 05/17/2019 4:15 PM CDT Screening for colon cancer MICROALBUMIN/CREATIN INE RATIO, RANDOM UR Routine 10/10/2018 9:52 AM CUSTOMER ADVOCACY MANAGER Type 2 diabetes mellitus with diabetic peripheral angiopathy without gangrene, without long-term current use of insulin ([facility]) POC OCCULT BLOOD UP TO 3 CARDS Routine 08/01/2015 5:24 PM CUSTOMER ADVOCACY MANAGER Screen for colon cancer XR DEXA BONE DENSITY AXIAL 1 OR MORE SITES Routine 07/30/2015 1:58 PM CUSTOMER ADVOCACY MANAGER Postmenopausal atrophic vaginitis from Last 3 Months or Most Recently Relevant to Health Maintenance Results * DIABETES FOOT EXAM (12/23/2020) Adrienne March DO HEALTH MAINTENANCE Edited R esult - Final * DIABETES EYE EXAM (06/04/2020) us Abstract Spg Provider HEALTH MAINTENANCE Final R esult * (ABNORMAL) HEMOGLOBIN A1C (05/23/2020 10:48 AM CDT) HEMOGLOBIN A1C 7.1(H) See Comment % 05/23/2020 8:25 PM CDT [facility] EST. AVG GLUCOSE, A1C 157 mg/dL 05/23/2020 8:25 PM CDT [facility] Blood Venipuncture / Unknown 05/23/2020 10:48 AM CDT 05/23/2020 7:56 PM CDT Narrative [facility] - 05/23/2020 8:25 PM CDT HGB A1C INTERPRETATION NORMAL: <5.7% PRE-DIABETES: 5.7 - 6.4% DIABETES: 6.5% OR GREATER Falsely low A1C measurements can occur when: 1. Anemia and/or hemolytic anemia is present. 2. Hemoglobin variants present. 3. Renal failure. 4. Transfusion of blood product in the last 120 days. We recommend ordering a fructosamine test([id number]) to more accurately assess glycemic status if any of the above conditions are present. Adrienne March DO CHEMISTRY ORDERABLES Final Result [facility] [place]# [id number] [address] [place] [id number] * (ABNORMAL) LIPID PANEL (05/23/2020 10:48 AM CDT) [facility] CHOLESTEROL 215(H) <200 mg/dL 05/23/2020 9:06 PM CDT [facility] TRIGLYCERIDE 175(H) <150 mg/dL 05/23/2020 9:06 PM CDT [facility] HDL 83(H) 40 - 59 mg/dL 05/23/2020 9:06 PM CDT [facility] LDL CALCULATED 97 <100 mg/dL 05/23/2020 9:06 PM CDT [facility] NON-HDL CHOLESTEROL 132(H) <130 mg/dL 05/23/2020 9:06 PM CDT [facility] Blood Venipuncture / Unknown 05/23/2020 10:48 AM CDT 05/23/2020 7:56 PM CDT Narrative [facility] - 05/23/2020 [...] Adrienne March DO CHEMISTRY ORDERABLES Final Result [facility]# [id number] [facility] [place] [address] * COLON CANCER SCREEN, STOOL DNA (05/17/2019 4:15 PM CDT) COLOGUARD RESULT Negative Not Applicable [facility] Comment: A negative result indicates [...] Hess et al, N Engl J Med 2014;370(14):3702-1371) COLOGUARD RE-SCREENING RECOMMENDATION: Periodic routine colorectal cancer screening is an important part of preventive healthcare for asymptomatic persons at average risk for colorectal cancer. Following a negative Cologuard result, the [place] Cancer Society and U.S. Multi-Society Task Force screening guidelines recommend a Cologuard re-screening interval of 3 years. References: [place] Cancer Society (ACS). Colorectal cancer prevention and early detection. [place], [place]: [place] [employer] Society; [updated 2015Jan 11]. https://www.cancer.org/cancer/cnvpj-pnrdgy-kdtbtj/jiiqagckc-geduxjque-cryyuhp/ac s-rec ommendations.html. Accessed May 20, 2018; Héctor BAUM, Marleny JURADO, Cruzito BRADLEY, Colorectal Cancer Screening: Recommendations for Physicians and Patients from the U.S. Multi-Society Task Force on Colorectal Cancer Screening, Am J Gastroenterology 2017; 112:8061-2404. Test Type: Composite algorithmic analysis of stool [...] can be accessed at the following location: www.eGood/results. Additional description of the Cologuard test process, warnings and precautions can be found at www.cologuardtest.com. Rx Only. Stool STOOL SPECIMEN / Unknown 05/17/2019 4:15 PM CDT 05/18/2019 11:04 PM CDT Adrienne March DO BODY FLUIDS AND STOOLS Rosetta terrazas Result [employer] CLIA # [id number] [address] , [address] [place] [address] * (ABNORMAL) MICROALBUMIN/CREATININE RATIO, RANDOM UR (10/10/2018 9:52 AM CUSTOMER ADVOCACY MANAGER) MICROALBUMIN, URINE 24.1 No Reference Range mg/dL 10/10/2018 9:10 PM CUSTOMER ADVOCACY MANAGER [facility] CREATININE, URINE 35.8 29.0 - 226.0 mg/dL 10/10/2018 9:10 PM CUSTOMER ADVOCACY MANAGER [facility] Comment: Reference Range varies with fluid intake and diet. MICROALBUMIN/ CREAT RATIO, UR 673.2(H) <25.0 mg/g 10/10/2018 9:10 PM CUSTOMER ADVOCACY MANAGER [facility] Urine URINE SPECIMEN OBTAINED BY CLEAN CATCH PROCEDURE / Unknown Collection / Unknown 10/10/2018 9:52 AM CUSTOMER ADVOCACY MANAGER 10/10/2018 7:34 PM CUSTOMER ADVOCACY MANAGER Narrative [facility] - 10/10/2018 9:10 PM CUSTOMER ADVOCACY MANAGER Condition Microalbumin/Creat ratio Normal Males <17 Normal Females <25 Microalbuminuria Males 17-299 Microalbuminuria Females 25-299 Overt proteinuria >=300 Raissa Hernández COIN BOX COLLECTOR URINE ORDERABLES Final R esult Performing Organization Address [facility] Co de Phone Number [facility] CLIA# [id number] [address] [place] [address] * (ABNORMAL) POC OCCULT BLOOD UP TO 3 CARDS (08/01/2015 5:24 PM CUSTOMER ADVOCACY MANAGER) OCCULT BLOOD #1 Positive(A ) Negative [facility] OCCULT BLOOD #2 Positive(A ) Negative [facility] OCCULT BLOOD #3 Positive(A ) Negative [facility] Stool specimen (specimen) 08/01/2015 5:24 PM CUSTOMER ADVOCACY MANAGER Deanne Banks COIN BOX COLLECTOR POINT OF CARE TESTING Final R esult Performing Organization Address [facility] Co de Phone Number [facility] CLIA# [id number] [address] [place] [address] * XR DEXA BONE DENSITY AXIAL 1 OR MORE SITES (07/30/2015 1:58 PM CUSTOMER ADVOCACY MANAGER) Anatomical Region Laterality Modality Digital Radiogra phy 07/30/2015 1:48 PM CUSTOMER ADVOCACY MANAGER Narrative 07/31/2015 8:08 AM CUSTOMER ADVOCACY MANAGER PROCEDURE DEXA BONE DENSITY, 30 July [...] Relevant to Health Maintenance Insurance MEDICAID [facility] RX [facility] Medicare Part D RX [employer] (INTERNAL) [facility] Internal Plans Advance Directives For more information, please contact: [phone] * Full Code (Latest Code Status on File) Date Activated Date Inactivated Comments 06/21/2020 9:47 AM 06/23/2020 4:07 PM * Full Code Date Activated Date Inactivated Comments 11/23/2019 4:04 PM 11/25/2019 4:08 PM * Full Code Date Activated Date Inactivated Comments 11/23/2019 9:11 AM 11/23/2019 4:04 PM Care Teams Can Inspector Relationship Specialty Start Date End Date Adrienne March DO [address] [place] [address] PCP - General Family Practice 06/30/10
--- OUTSIDE RECORDS SUMMARY | 2025-09-13 00:38 | XMS_ITS | Encounter Summary ---
Author Organization [facility] Address [address] [place] [address] Care Team Providers Care Nursing Attendant Name Role Phone Adrienne March DO Primary Care Provider [phone]- [phone] Encounter Details Date Type Department Care Team (Latest Contact Info) Description 08/05/2004 Outpatient Historical HIS CANCELLED ADMISSION Jose Luis Mcmillan MD [address] [place] [address] [place] [address] ADMINISTRTVE ENCOUNT NOS (Primary Dx) Social History Tobacco Use Types Packs/Day Years Used Date Smoking Tobacco: Never Assessed Comments Unknown Sex and Gender Information Value Date Recorded Sex Assigned at Not on file Legal Sex Female 3:34 AM YARN SIZER Gender Identity Not on file Sexual Orientation Not on file documented as of this encounter Plan of Treatment Not on file documented as of this encounter Visit Diagnoses Diagnosis Encounters for unspecified administrative purpose- Primary documented in this encounter Care Teams Nursing Attendant Relationship Specialty Start Date End Date Adrienne March DO [address] [place] [address] PCP - General Family Practice 06/30/10 documented as of this encounter
--- OUTSIDE RECORDS SUMMARY | 2025-09-13 00:38 | XMS_ITS | Encounter Summary ---
Author Organization [facility] Address [address] [place] [address] Care Team Providers Care Teacher Aide Name Role Phone Adrienne March DO Primary Care Provider [phone] Encounter Details Date Type Department Care Team (Latest Contact Info) Description 11/27/2003 Outpatient Historical [facility] [address] [place] [address] Jose Luis Mcmillan MD [address] [place] [address] CERVICALGIA (Primary Dx); Cervical spondylosis Social History Tobacco Use Types Packs/Day Years Used Date Smoking Tobacco: Never Assessed Comments Unknown Sex and Gender Information Value Date Recorded Sex Assigned at Not on file Legal Sex Female 3:34 AM 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
--- OUTSIDE RECORDS SUMMARY | 2025-09-13 00:38 | XMS_ITS | Encounter Summary ---
Author Organization [facility] Address [address] [place] [address] Care Team Providers Care Email Producer Name Role Phone Adrienne March DO Primary Care Provider Encounter Details Date Type Department Care Team (Latest Contact Info) Description 08/11/2004 Outpatient Historical [facility] [address] [place] [phone] Leanne Smith DO [address] [place] [phone] JOINT PAIN-ANKLE (Primary Dx) Social History Tobacco Use Types Packs/Day Years Used Date Smoking Tobacco: Never Assessed Comments Unknown Sex and Gender Information Value Date Recorded Sex Assigned at Not on file Legal Sex Female 3:34 AM 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
--- OUTSIDE RECORDS SUMMARY | 2025-09-13 00:38 | XMS_ITS | Encounter Summary ---
Author Organization [facility] Address [address] [place] [address] Care Team Providers Care Social Media Project Manager Name Role Phone Adrienne March DO Primary Care Provider [phone] Encounter Details Date Type Department Care Team (Latest Contact Info) Description 06/09/2000 Outpatient Historical [facility] [address] [phone] Alexei Elizabeth MD [address] [place] [address] Lipoma of unspecified site (Primary Dx); Cardiomegaly; Edema Social History Tobacco Use Types Packs/Day Years Used Date Smoking Tobacco: Never Assessed Comments Unknown Sex and Gender Information Value Date Recorded Sex Assigned at Not on file Legal Sex Female 3:34 AM DIRECTOR PEDIATRIC Gender Identity Not on file Sexual Orientation Not on file documented as of this encounter Plan of Treatment Not on file documented as of this encounter Visit Diagnoses Diagnosis Lipoma of unspecified site- Primary Cardiomegaly Edema documented in this encounter Care Teams Social Media Project Manager Relationship Specialty Start Date End Date Adrienne March DO [address] [place] [phone] PCP - General Family Practice 06/30/10 documented as of this encounter
--- OUTSIDE RECORDS SUMMARY | 2025-09-13 00:38 | XMS_ITS | Encounter Summary ---
Author Organization [facility] Address [address] [place] [address] Care Team Providers Care Cottonseed Meat Presser Name Role Phone Adrienne March DO Primary Care Provider Encounter Details Date Type Department Care Team (Latest Contact Info) Description 04/25/2001 Outpatient [facility] [address] [place] [phone] Abel Hurtado, DPM NO ADDRESS ON FILE Exostosis of unspecified site (Primary Dx) Social History Tobacco Use Types Packs/Day Years Used Date Smoking Tobacco: Never Assessed Comments Unknown Sex and Gender Information Value Date Recorded Sex Assigned at Not on file Legal Sex Female 3:34 AM CLINICAL INTERVIEWER Gender Identity Not on file Sexual Orientation Not on file documented as of this encounter Plan of Treatment Not on file documented as of this encounter Visit Diagnoses Diagnosis Exostosis of unspecified site- Primary documented in this encounter Care Teams Cottonseed Meat Presser Relationship Specialty Start Date End Date Adrienne March DO [address] [place] [phone] PCP - General Family Practice 06/30/10 documented as of this encounter
--- OUTSIDE RECORDS SUMMARY | 2025-09-13 00:38 | XMS_ITS | Encounter Summary ---
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 Phone Number INTERFACE SYSTEM Refer to clinic/hospital department * POC GLUCOSE (02/01/2005 9:17 PM CDT) GLUCOSE POC 95 60 - 100 mg/dL INTERFACE SYSTEM 02/01/2005 9:17 PM CDT Result Carrie Nino MD POINT OF CARE TESTING Final Result Performing Organization Address City/[facility] Co de Phone Number INTERFACE SYSTEM Refer to clinic/hospital department * POC GLUCOSE (02/01/2005 4:55 PM CDT) GLUCOSE POC 85 60 - 100 mg/dL INTERFACE SYSTEM 02/01/2005 4:55 PM CDT Result Carrie Nino MD POINT OF CARE TESTING Final Result Performing Organization Address City/[facility] de Phone Number INTERFACE SYSTEM Refer to clinic/hospital department * POC GLUCOSE (02/01/2005 11:51 AM CDT) GLUCOSE POC 96 60 - 100 mg/dL INTERFACE SYSTEM 02/01/2005 11:5 1 AM CDT Nakul Nino MD POINT OF CARE TESTING Final Result Performing Organization Address City/[facility] de Phone Number INTERFACE SYSTEM Refer to clinic/hospital department * (ABNORMAL) POC GLUCOSE (02/01/2005 5:40 AM CDT) GLUCOSE POC 118(H) 60 - 100 mg/dL INTERFACE SYSTEM 02/01/2005 5:40 AM CDT Nakul Nino MD POINT OF CARE TESTING Final Result Performing Organization Address [facility] Phone Number INTERFACE SYSTEM Refer to clinic/hospital department * (ABNORMAL) POC GLUCOSE (01/31/2005 9:34 PM CDT) GLUCOSE POC 108(H) 60 - 100 mg/dL INTERFACE SYSTEM 01/31/2005 9:34 PM CDT Nakul Nino MD POINT OF CARE TESTING Final Result Performing Organization Address [facility] Phone Number INTERFACE SYSTEM Refer to clinic/hospital department * POC GLUCOSE (01/31/2005 4:59 PM CDT) GLUCOSE POC 93 60 - 100 mg/dL INTERFACE SYSTEM 01/31/2005 4:59 PM CDT us Nakul Nino MD POINT OF CARE TESTING Final Result Performing Organization Address City/[facility] Co de Phone Number INTERFACE SYSTEM Refer to clinic/hospital department * POC GLUCOSE (01/31/2005 11:04 AM CDT) GLUCOSE POC 100 60 - 100 mg/dL INTERFACE SYSTEM 01/31/2005 11:0 4 AM CDT us Nakul Nino MD POINT OF CARE TESTING Final Result Performing Organization Address City/[facility] Co de Phone Number INTERFACE SYSTEM Refer to clinic/hospital department * (ABNORMAL) POC GLUCOSE (01/31/2005 5:41 AM CDT) GLUCOSE POC 106(H) 60 - 100 mg/dL INTERFACE SYSTEM 01/31/2005 5:41 AM CDT us Nakul Nino MD POINT OF CARE TESTING Final Result Performing Organization Address [facility] Phone Number INTERFACE SYSTEM Refer to clinic/hospital department * (ABNORMAL) POC GLUCOSE (01/30/2005 8:52 PM CDT) GLUCOSE POC 169(H) 60 - 100 mg/dL INTERFACE SYSTEM 01/30/2005 8:52 PM CDT us Nakul Nino MD POINT OF CARE TESTING Final Result Performing Organization Address [facility] Phone Number INTERFACE SYSTEM Refer to clinic/hospital department * POC GLUCOSE (01/30/2005 6:02 PM CDT) GLUCOSE POC 82 60 - 100 mg/dL INTERFACE SYSTEM 01/30/2005 6:02 PM CDT us Nakul Nino MD POINT OF CARE TESTING Final Result Performing Organization Address City/[facility] Co de Phone Number INTERFACE SYSTEM Refer to clinic/hospital department * (ABNORMAL) POC GLUCOSE (01/30/2005 10:54 AM CDT) GLUCOSE POC 126(H) 60 - 100 mg/dL INTERFACE SYSTEM 01/30/2005 10:5 4 AM CDT us Nakul Nino MD POINT OF CARE TESTING Final Result Performing Organization Address City/[facility] de Phone Number INTERFACE [...] ORDERABLES Final R esult Performing Organization Address [facility] de Phone Number INTERFACE [...] HEMATOLOGY ORDERABLES Final Result Performing Organization Address [facility] Phone Number INTERFACE SYSTEM Refer to clinic/hospital department * (ABNORMAL) POC GLUCOSE (01/30/2005 5:20 AM CDT) GLUCOSE POC 132(H) 60 - 100 mg/dL INTERFACE SYSTEM 01/30/2005 5:20 AM CDT Nakul Nino MD POINT OF CARE TESTING Final Result Performing Organization Address [facility] Phone Number INTERFACE SYSTEM Refer to clinic/hospital department * (ABNORMAL) POC GLUCOSE (01/29/2005 8:52 PM CDT) GLUCOSE POC 149(H) 60 - 100 mg/dL INTERFACE SYSTEM 01/29/2005 8:52 PM CDT Nakul Nino MD POINT OF CARE TESTING Final Result Performing Organization Address [facility] Phone Number INTERFACE SYSTEM Refer to clinic/hospital [...] CARE TESTING Final Result Performing Organization Address [facility] de Phone Number INTERFACE [...] HEMATOLOGY ORDERABLES Final Result Performing Organization Address [facility] Phone Number INTERFACE SYSTEM Refer to clinic/hospital [...] ORDERABLES Final R esult Performing Organization Address [facility] Phone Number INTERFACE SYSTEM Refer to clinic/hospital department * (ABNORMAL) POC GLUCOSE (01/29/2005 6:03 AM CDT) GLUCOSE POC 202(H) 60 - 100 mg/dL INTERFACE SYSTEM 01/29/2005 6:03 AM CDT Nakul Nino MD POINT OF CARE TESTING Final Result Performing Organization Address [facility] de Phone Number INTERFACE [...] COM Fi nal Result Performing Organization Address City/[facility] Co de Phone [...] CARE TESTING Final Result Performing Organization Address [facility] Phone Number INTERFACE SYSTEM Refer to clinic/hospital department * POC GLUCOSE (01/28/2005 3:07 PM CDT) GLUCOSE POC 91 60 - 100 mg/dL INTERFACE SYSTEM COMMENT POC Follow prtocol INTERFACE SYSTEM 01/28/2005 3:07 PM CDT Nakul Nino MD POINT OF CARE TESTING Final Result Performing Organization Address [facility] Phone Number INTERFACE SYSTEM Refer to clinic/hospital department * (ABNORMAL) HEMOGLOBIN A1C (01/28/2005 1:50 PM CDT) HEMOGLOBIN A1C 8.2(H) 4.0 - 6.0 %A1C INTERFACE SYSTEM 01/28/2005 1:50 PM CDT Nakul Nino MD CHEMISTRY ORDERABLES Final R esult Performing Organization Address [facility] Phone Number INTERFACE SYSTEM Refer to clinic/hospital department * (ABNORMAL) POC GLUCOSE (01/28/2005 12:53 PM CDT) GLUCOSE POC 121(H) 60 - 100 mg/dL INTERFACE SYSTEM COMMENT POC Follow prtocol INTERFACE SYSTEM 01/28/2005 12:5 3 PM CDT Nakul Nino MD POINT OF CARE TESTING Final Result Performing Organization Address [facility] Phone Number INTERFACE SYSTEM Refer to clinic/hospital department * (ABNORMAL) POC GLUCOSE (01/28/2005 12:11 PM CDT) GLUCOSE POC 134(H) 60 - 100 mg/dL INTERFACE SYSTEM COMMENT POC Follow prtocol INTERFACE SYSTEM 01/28/2005 12:1 1 PM CDT Nakul Nino MD POINT OF CARE TESTING Final Result Performing Organization Address [facility] Co de Phone Number INTERFACE SYSTEM Refer to clinic/hospital department * (ABNORMAL) POC GLUCOSE (01/28/2005 7:55 AM CDT) GLUCOSE POC 121(H) 60 - 100 mg/dL INTERFACE SYSTEM COMMENT POC Follow prtocol INTERFACE SYSTEM 01/28/2005 7:55 AM CDT Nakul Nino MD POINT OF CARE TESTING Final Result Performing Organization Address [facility] de Phone Number INTERFACE SYSTEM Refer to clinic/hospital department * (ABNORMAL) POC GLUCOSE (01/28/2005 7:08 AM CDT) GLUCOSE POC 146(H) 60 - 100 mg/dL INTERFACE SYSTEM COMMENT POC Follow prtocol INTERFACE SYSTEM 01/28/2005 7:08 AM CDT Nakul Nino MD POINT OF CARE TESTING Final Result Performing Organization Address [facility] de Phone Number INTERFACE SYSTEM Refer to clinic/hospital department * (ABNORMAL) POC GLUCOSE (01/28/2005 6:00 AM CDT) GLUCOSE POC 132(H) 60 - 100 mg/dL INTERFACE SYSTEM 01/28/2005 6:00 AM CDT Nakul Nino MD POINT OF CARE TESTING Final Result Performing Organization Address City/[facility] Co de Phone Number INTERFACE SYSTEM Refer to clinic/hospital department * (ABNORMAL) POC GLUCOSE (01/28/2005 2:41 AM CDT) GLUCOSE POC 127(H) 60 - 100 mg/dL INTERFACE SYSTEM 01/28/2005 2:41 AM CDT Nakul Nino MD POINT OF CARE TESTING Final Result Performing Organization Address City/[facility] Co de Phone Number INTERFACE SYSTEM Refer to clinic/hospital department * (ABNORMAL) POC GLUCOSE (01/28/2005 1:18 AM CDT) GLUCOSE POC 124(H) 60 - 100 mg/dL INTERFACE SYSTEM 01/28/2005 1:18 AM CDT Nakul Nino MD POINT OF CARE TESTING Final Result Performing Organization Address City/[facility] de Phone Number INTERFACE SYSTEM Refer to clinic/hospital department * (ABNORMAL) POC GLUCOSE (01/28/2005 12:20 AM CDT) GLUCOSE POC 128(H) 60 - 100 mg/dL INTERFACE SYSTEM 01/28/2005 12:2 0 AM CDT Nakul Nino MD POINT OF CARE TESTING Final Result Performing Organization Address [facility] Phone Number INTERFACE SYSTEM Refer to clinic/hospital department * (ABNORMAL) POC GLUCOSE (01/27/2005 11:07 PM CDT) GLUCOSE POC 138(H) 60 - 100 mg/dL INTERFACE SYSTEM 01/27/2005 11:0 7 PM CDT Nakul Nino MD POINT OF CARE TESTING Final Result Performing Organization Address [facility] Phone Number INTERFACE SYSTEM Refer to clinic/hospital department * (ABNORMAL) POC GLUCOSE (01/27/2005 10:14 PM CDT) GLUCOSE POC 139(H) 60 - 100 mg/dL INTERFACE SYSTEM 01/27/2005 10:1 4 PM CDT Nakul Nino MD POINT OF CARE TESTING Final Result Performing Organization Address City/[facility] Co de Phone Number INTERFACE SYSTEM Refer to clinic/hospital department * (ABNORMAL) POC GLUCOSE (01/27/2005 9:18 PM CDT) GLUCOSE POC 184(H) 60 - 100 mg/dL INTERFACE SYSTEM 01/27/2005 9:18 PM CDT Nakul Nino MD POINT OF CARE TESTING Final Result Performing Organization Address [facility] Phone Number INTERFACE SYSTEM Refer to clinic/hospital department * (ABNORMAL) POC GLUCOSE (01/27/2005 7:36 PM CDT) GLUCOSE POC 229(H) 60 - 100 mg/dL INTERFACE SYSTEM 01/27/2005 7:36 PM CDT Nakul Nino MD POINT OF CARE TESTING Final Result Performing Organization Address [facility] Phone Number INTERFACE SYSTEM Refer to clinic/hospital department * (ABNORMAL) POC GLUCOSE (01/27/2005 5:58 PM CDT) GLUCOSE POC 121(H) 60 - 100 mg/dL INTERFACE SYSTEM COMMENT POC Follow prtocol INTERFACE SYSTEM 01/27/2005 5:58 PM CDT Nakul Nino MD POINT OF CARE TESTING Final Result Performing Organization Address [facility] Phone Number INTERFACE SYSTEM Refer to clinic/hospital department * (ABNORMAL) POC GLUCOSE (01/27/2005 5:08 PM CDT) GLUCOSE POC 106(H) 60 - 100 mg/dL INTERFACE SYSTEM COMMENT POC Follow prtocol INTERFACE SYSTEM 01/27/2005 5:08 PM CDT us Nakul Nino MD POINT OF CARE TESTING Final Result Performing Organization Address City/[facility] de Phone Number INTERFACE SYSTEM Refer to clinic/hospital department * POC GLUCOSE (01/27/2005 4:31 PM CDT) GLUCOSE POC 85 60 - 100 mg/dL INTERFACE SYSTEM COMMENT POC Follow prtocol INTERFACE SYSTEM 01/27/2005 4:31 PM CDT us Nakul Nino MD POINT OF CARE TESTING Final Result Performing Organization Address [facility] Phone Number INTERFACE SYSTEM Refer to clinic/hospital department * POC GLUCOSE (01/27/2005 3:02 PM CDT) GLUCOSE POC 84 60 - 100 mg/dL INTERFACE SYSTEM COMMENT POC Follow prtocol INTERFACE SYSTEM 01/27/2005 3:02 PM CDT Nakul Nino MD POINT OF CARE TESTING Final Result Performing Organization Address [facility] Phone Number INTERFACE SYSTEM Refer to clinic/hospital department * POC GLUCOSE (01/27/2005 2:14 PM CDT) GLUCOSE POC 94 60 - 100 mg/dL INTERFACE SYSTEM COMMENT POC Follow prtocol INTERFACE SYSTEM 01/27/2005 2:14 PM CDT us Nakul Nino MD POINT OF CARE TESTING Final Result Performing Organization Address [facility] Phone Number INTERFACE SYSTEM Refer to clinic/hospital department * POC GLUCOSE (01/27/2005 12:57 PM CDT) GLUCOSE POC 89 60 - 100 mg/dL INTERFACE SYSTEM 01/27/2005 12:5 7 PM CDT us Nakul Nino MD POINT OF CARE TESTING Final Result Performing Organization Address [facility] Phone Number INTERFACE SYSTEM Refer to clinic/hospital department * (ABNORMAL) POC GLUCOSE (01/27/2005 11:53 AM CDT) GLUCOSE POC 107(H) 60 - 100 mg/dL INTERFACE SYSTEM COMMENT POC Follow prtocol INTERFACE SYSTEM 01/27/2005 11:5 3 AM CDT Nakul Nino MD POINT OF CARE TESTING Final Result Performing Organization Address [facility] Phone Number INTERFACE SYSTEM Refer to clinic/hospital department * (ABNORMAL) POC GLUCOSE (01/27/2005 11:07 AM CDT) GLUCOSE POC 118(H) 60 - 100 mg/dL INTERFACE SYSTEM COMMENT POC Follow prtocol INTERFACE SYSTEM 01/27/2005 11:0 7 AM CDT Nakul Nino MD POINT OF CARE TESTING Final Result Performing Organization Address [facility] Phone Number INTERFACE SYSTEM Refer to clinic/hospital department * (ABNORMAL) POC GLUCOSE (01/27/2005 9:54 AM CDT) GLUCOSE POC 136(H) 60 - 100 mg/dL INTERFACE SYSTEM COMMENT POC Follow prtocol INTERFACE SYSTEM 01/27/2005 9:54 AM CDT Nakul Nino MD POINT OF CARE TESTING Final Result Performing Organization Address [facility] Phone Number INTERFACE SYSTEM Refer to clinic/hospital department * (ABNORMAL) POC GLUCOSE (01/27/2005 8:06 AM CDT) GLUCOSE POC 176(H) 60 - 100 mg/dL INTERFACE SYSTEM 01/27/2005 8:06 AM CDT Nakul Nino MD POINT OF CARE TESTING Final Result Performing Organization Address [facility] de Phone Number INTERFACE SYSTEM Refer to clinic/hospital department * (ABNORMAL) POC GLUCOSE (01/27/2005 5:45 AM CDT) GLUCOSE POC 207(H) 60 - 100 mg/dL INTERFACE SYSTEM 01/27/2005 5:45 AM CDT Nakul Nino MD POINT OF CARE TESTING Final Result Performing Organization Address [facility] Phone Number INTERFACE SYSTEM Refer to clinic/hospital department * (ABNORMAL) POC GLUCOSE (01/27/2005 4:50 AM CDT) GLUCOSE POC 243(H) 60 - 100 mg/dL INTERFACE SYSTEM 01/27/2005 4:50 AM CDT Nakul Nino MD POINT OF CARE TESTING Final Result Performing Organization Address [facility] Phone Number INTERFACE SYSTEM Refer to [...] ORDERABLES Final R esult Performing Organization Address [facility] Phone Number INTERFACE SYSTEM Refer to [...] HEMATOLOGY ORDERABLES Final Result Performing Organization Address City/[facility] de Phone Number INTERFACE [...] CARE TESTING Final Result Performing Organization Address [facility] Phone Number INTERFACE SYSTEM Refer to clinic/hospital department * (ABNORMAL) POC GLUCOSE (01/27/2005 1:55 AM CDT) GLUCOSE POC 369(H) 60 - 100 mg/dL INTERFACE SYSTEM 01/27/2005 1:55 AM CDT Nakul Nino MD POINT OF CARE TESTING Final Result Performing Organization Address [facility] Phone Number INTERFACE SYSTEM Refer to clinic/hospital department * (ABNORMAL) POC GLUCOSE (01/27/2005 12:09 AM CDT) GLUCOSE POC 368(H) 60 - 100 mg/dL INTERFACE SYSTEM 01/27/2005 12:0 9 AM CDT Nakul Nino MD POINT OF CARE TESTING Final Result Performing Organization Address [facility] Phone Number INTERFACE SYSTEM Refer to [...] COM Fi nal Result Performing Organization Address [facility] de Phone Number INTERFACE SYSTEM Refer to clinic/hospital department * (ABNORMAL) GLUCOSE LEVEL (01/26/2005 10:19 PM CDT) GLUCOSE 245(H) 70 - 110 mg/dL INTERFACE SYSTEM Comment:Specimen slightly he molyzed. THIS RESULT FROM EDTA TUBE. 01/26/2005 10:1 9 PM CDT Nakul Nino MD CHEMISTRY ORDERABLES Final R esult Performing Organization Address [facility] de Phone Number INTERFACE [...] COM Fi nal Result Performing Organization Address [facility] Phone Number INTERFACE SYSTEM Refer to clinic/hospital [...] HEMATOLOGY ORDERABLES Final Result Performing Organization Address [facility] Phone Number INTERFACE SYSTEM Refer to clinic/hospital department * ETHANOL LEVEL (01/26/2005 7:00 PM CDT) ETHANOL <10 <=10 mg/dL INTERFACE SYSTEM 01/26/2005 7:00 PM CDT Flako Blanco MD CHEMISTRY ORDERABLES Final Result Performing Organization Address [facility] de Phone Number INTERFACE [...] femur documented in this encounter Care Teams Budder Relationship Specialty Start Date End Date Adrienne March DO [address] [place] [id number] PCP - General Family Practice 06/30/10 documented as of this encounter
--- OUTSIDE RECORDS SUMMARY | 2025-09-13 00:38 | XMS_ITS | Encounter Summary ---
Author Organization [facility] Address [address] [place] [address] Care Team Providers Care Agricultural Equipment Operator Name Role Phone Adrienne March DO Primary Care Provider [phone]- [phone] Encounter Details Date Type Department Care Team (Latest Contact Info) Description 03/28/2001 Outpatient [facility] [place] [address] [place] [id number] Abel Hurtado, DPM NO ADDRESS ON FILE Calcaneal spur (Primary Dx) Social History Tobacco Use Types Packs/Day Years Used Date Smoking Tobacco: Never Assessed Comments Unknown Sex and Gender Information Value Date Recorded Sex Assigned at Not on file 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
--- OUTSIDE RECORDS SUMMARY | 2025-09-13 00:38 | XMS_ITS | Encounter Summary ---
Author Organization [facility] Address [address] [place] [address] Care Team Providers Care Quality Rep Name Role Phone Adrienne March DO Primary Care Provider [phone]- [phone] Encounter Details Date Type Department Care Team (Latest Contact Info) Description 06/24/2001 Outpatient Historical HIS [facility] Dipak Malagon MD NO ADDRESS ON FILE Carpal tunnel syndrome (Primary Dx) Social History Tobacco Use Types Packs/Day Years Used Date Smoking Tobacco: Never Assessed Comments Unknown Sex and Gender Information Value Date Recorded Sex Assigned at Not on file 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
--- OUTSIDE RECORDS SUMMARY | 2025-09-13 00:38 | XMS_ITS | Encounter Summary ---
Author Organization [facility] Address [address] 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
--- OUTSIDE RECORDS SUMMARY | 2025-09-13 00:38 | XMS_ITS | Encounter Summary ---
Author Organization [facility] Address [address] 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
--- OUTSIDE RECORDS SUMMARY | 2025-09-13 00:38 | XMS_ITS | Encounter Summary ---
Author Organization [facility] Address [address] [place] [address] Care Team Providers Care Lumber Handler Name Role Phone Adrienne March DO Primary Care Provider +1- [phone] Encounter Details Date Type Department Care Team (Latest Contact Info) Description 05/09/1999 Outpatient Historical [facility] [address] [phone] Jaime Barba MD NO ADDRESS ON FILE Other screening mammogram (Primary Dx) Social History Tobacco Use Types Packs/Day Years Used Date Smoking Tobacco: Never Assessed Comments Unknown Sex and Gender Information Value Date Recorded Sex Assigned at Not on file 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
--- OUTSIDE RECORDS SUMMARY | 2025-09-13 00:38 | XMS_ITS | Encounter Summary ---
Author Organization [facility] Address [address] [place] [address] Care Team Providers Care Stockroom Supervisor Name Role Phone Adrienne March DO Primary Care Provider Encounter Details Date Type Department Care Team (Latest Contact Info) Description 09/21/2000 Outpatient Historical [facility] Internal Medicine- [address] [place] [phone] Umang Urrutia MD [address] [place] [address] Type II or unspecified type diabetes mellitus without mention of complication, not stated as uncontrolled (Primary Dx); Carpal tunnel syndrome; Pain in limb Social History Tobacco Use Types Packs/Day Years Used Date Smoking Tobacco: Never Assessed Comments Unknown Sex and Gender Information Value Date Recorded Sex Assigned at Not on file Legal Sex Female 3:34 AM 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
--- OUTSIDE RECORDS SUMMARY | 2025-09-13 00:38 | XMS_ITS | Encounter Summary ---
Author Organization [facility] Address [address] [place] [address] Care Team Providers Care Exterior Work Helper Name Role Phone Adrienne March DO Primary Care Provider Encounter Details Date Type Department Care Team (Latest Contact Info) Description 06/30/2000 Outpatient [facility] Internal Medicine- [address] [place] [phone] Umang Urrutia MD [address] [place] [address] Chest pain, unspecified (Primary Dx); Other and unspecified hyperlipidemia; Hepatitis, unspecified; Abnormal glucose; Pain in limb; Encounter for long-term (current) use of other medications; Edema; Unspecified urinary incontinence Social History Tobacco Use Types Packs/Day Years Used Date Smoking Tobacco: Never Assessed Comments Unknown Sex and Gender Information Value Date Recorded Sex Assigned at Not on file 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
--- OUTSIDE RECORDS SUMMARY | 2025-09-13 00:38 | XMS_ITS | Encounter Summary ---
Author Organization [facility] Address [address] [place] [address] Care Team Providers Care Director Community Organization Name Role Phone Adrienne March DO Primary Care Provider Encounter Details Date Type Department Care Team (Latest Contact Info) Description 02/02/2005 Outpatient Historical [facility] [address] 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
--- OUTSIDE RECORDS SUMMARY | 2025-09-13 00:38 | XMS_ITS | Encounter Summary ---
Author Organization [facility] Address [address] [place] [address] Care Team Providers Care Sheep Farm Manager Name Role Phone Adrienne March DO Primary Care Provider Encounter Details Date Type Department Care Team (Latest Contact Info) Description 02/18/2001 Outpatient Historical 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
--- OUTSIDE RECORDS SUMMARY | 2025-09-13 00:38 | XMS_ITS | Encounter Summary ---
Author Organization [facility] Address [address] [place] [address] Care Team Providers Care Rag Production Worker Name Role Phone Adrienne March DO Primary Care Provider +1- [phone] Encounter Details Date Type Department Care Team (Latest Contact Info) Description 03/06/2004 Outpatient [facility] Podiatry-[facility] [place] [address] [place] [phone] Abel Hurtado, MARCE NO ADDRESS ON FILE Plantar fibromatosis (Primary Dx); CALCANEAL SPUR; DIFFICULTY IN WALKING Social History Tobacco Use Types Packs/Day Years Used Date Smoking Tobacco: Never Assessed Comments Unknown Sex and Gender Information Value Date Recorded Sex Assigned at Not on file 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
--- OUTSIDE RECORDS SUMMARY | 2025-09-13 00:38 | XMS_ITS | Encounter Summary ---
Author Organization [facility] Address [address] [place] [address] Care Team Providers Care Journeyman Plumber Name Role Phone Adrienne March DO Primary Care Provider Encounter Details Date Type Department Care Team (Latest Contact Info) Description 11/10/1999 Outpatient Historical [facility] Umang Urrutia MD [address] [place] [phone] Hypopotassemia (Primary Dx); Unspecified essential hypertension; Encounter for long-term (current) use of other medications Social History Tobacco Use Types Packs/Day Years Used Date Smoking Tobacco: Never Assessed Comments Unknown Sex and Gender Information Value Date Recorded Sex Assigned at Not on file 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
--- OUTSIDE RECORDS SUMMARY | 2025-09-13 00:38 | XMS_ITS | Encounter Summary ---
Author Organization [facility] Address [address] [place] [address] Care Team Providers Care Intervention Analyst Name Role Phone Adrienne March DO Primary Care Provider Encounter Details Date Type Department Care Team (Latest Contact Info) Description 07/29/2004 Outpatient [facility] Podiatry-[facility] [place] [address] [place] [address] Abel Hurtado DPM NO ADDRESS ON FILE ACUTE OSTEOMYELITIS-ANKLE ([facility]) (Primary Dx); FX ANKLE NOS-CLOSED; Plantar fibromatosis; DIFFICULTY IN WALKING Social History Tobacco Use Types Packs/Day Years Used Date Smoking Tobacco: Never Assessed Comments Unknown Sex and Gender Information Value Date Recorded Sex Assigned at Not on file 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
--- OUTSIDE RECORDS SUMMARY | 2025-09-13 00:38 | XMS_ITS | Encounter Summary ---
Author Organization [facility] Address [address] [place] [address] Care Team Providers Care Dish Maker Name Role Phone Adrienne March DO Primary Care Provider Encounter Details Date Type Department Care Team (Latest Contact Info) Description 08/25/2004 Outpatient [facility] Podiatry-[facility] [place] [address] [place] [address] Abel Hurtado, MARCE NO ADDRESS ON FILE Other lymphedema (Primary Dx); LOWER LEG INJURY NOS; DERMATOPHYTOSIS OF FOOT Social History Tobacco Use Types Packs/Day Years Used Date Smoking Tobacco: Never Assessed Comments Unknown Sex and Gender Information Value Date Recorded Sex Assigned at Not on file Legal Sex Female 3:34 AM 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
--- OUTSIDE RECORDS SUMMARY | 2025-09-13 00:38 | XMS_ITS | Encounter Summary ---
Author Organization [facility] Address [address] [place] [address] Care Team Providers Care Mechanical Estimator Name Role Phone Adrienne March DO Primary Care Provider +1- [phone] Encounter Details Date Type Department Care Team (Latest Contact Info) Description 04/04/2001 Outpatient [facility] Podiatry-[facility] [place] [address] [place] [address] Abel Hurtado, DPM NO ADDRESS ON FILE Calcaneal spur (Primary Dx) Social History Tobacco Use Types Packs/Day Years Used Date Smoking Tobacco: Never Assessed Comments Unknown Sex and Gender Information Value Date Recorded Sex Assigned at Not on file 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
--- OUTSIDE RECORDS SUMMARY | 2025-09-13 00:38 | XMS_ITS | Encounter Summary ---
Author Organization [facility] Address [address] Segaln: [place] [address] Care Team Providers Care Application Development Project Manager Name Role Phone Adrienne March DO Primary Care Provider +1- [phone] Encounter Details Date Type Department Care Team (Late st Contact Info) Description 09/26/1999 Outpatient Historical Umang Urrutia MD [address] [place] [address] Social History Tobacco Use Types Packs/Day Years Used Date Smoking Tobacco: Never Assessed Comments Unknown Sex and Gender Information Value Date Recorded Sex Assigned at Not on file Legal Sex Female 3:34 AM BRICK CLEANER Gender Identity Not on file Sexual Orientation Not on file documented as of this encounter Plan of Treatment Not on file documented as of this encounter Visit Diagnoses Not on filedocumented in this encounter Care Teams Application Development Project Manager Relationship Specialty Start Date End Date Adrienne March DO [address] [place] [address] PCP - General Family Practice 06/30/10 documented as of this encounter
--- OUTSIDE RECORDS SUMMARY | 2025-09-13 00:38 | XMS_ITS | Encounter Summary ---
Author Organization [facility] Address [address] [place] [address] Care Team Providers Care Software Requirements Engineer Name Role Phone Adrienne March DO Primary Care Provider [phone] Encounter Details Date Type Department Care Team (Latest Contact Info) Description 02/21/2001 Outpatient [facility] Podiatry-[facility] [place] [address] [place] [address] Abel Hurtado, MARCE NO ADDRESS ON FILE Calcaneal spur (Primary Dx); Tenosynovitis of foot and ankle; Pain in limb Social History Tobacco Use Types Packs/Day Years Used Date Smoking Tobacco: Never Assessed Comments Unknown Sex and Gender Information Value Date Recorded Sex Assigned at Not on file Legal Sex Female 3:34 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
--- OUTSIDE RECORDS SUMMARY | 2025-09-13 00:38 | XMS_ITS | Encounter Summary ---
Author Organization [facility] Address [address] [place] [address] Care Team Providers Care Pipeline Superintendent Division Name Role Phone Adrienne March DO Primary Care Provider +1- [phone] Encounter Details Date Type Department Care Team (Latest Contact Info) Description 05/30/2001 Outpatient [facility] Podiatry-[facility] [place] [address] [place] [address] Abel Hurtado, DPM NO ADDRESS ON FILE Pain in limb (Primary Dx); Calcaneal spur Social History Tobacco Use Types Packs/Day Years Used Date Smoking Tobacco: Never Assessed Comments Unknown Sex and Gender Information Value Date Recorded Sex Assigned at Not on file Legal Sex Female 3:34 AM 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
--- OUTSIDE RECORDS SUMMARY | 2025-09-13 00:38 | XMS_ITS | Encounter Summary ---
Author Organization [facility] Address [address] [place] [address] Care Team Providers Care Casting Agent Name Role Phone Adrienne March DO Primary Care Provider [phone] Encounter Details Date Type Department Care Team (Late st Contact Info) Description 05/12/1999 Outpatient Historical [facility] [address] [place] [phone] Lukas Vang MD [address] [place] [address] Pain in limb (Primary Dx) Social History Tobacco Use Types Packs/Day Years Used Date Smoking Tobacco: Never Assessed Comments Unknown Sex and Gender Information Value Date Recorded Sex Assigned at Not on file 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
--- OUTSIDE RECORDS SUMMARY | 2025-09-13 00:39 | XMS_ITS | Encounter Summary ---
Author Organization [facility] Address [address] [place] [address] Care Team Providers Care Furnace Brazer Name Role Phone Adrienne March DO Primary Care Provider +1- [phone] Encounter Details Date Type Department Care Team (Latest Contact Info) Description 03/28/1999 Outpatient Historical [facility] Umang Urrutia MD [address] [place] [address] Cervical disc displacmnt (Primary Dx); Other and unspecified accidental fall; Paroxysmal supraventricular tachycardia; Hematuria; Encounter for long-term (current) use of other medications; Other and unspecified hyperlipidemia Social History Tobacco Use Types Packs/Day Years Used Date Smoking Tobacco: Never Assessed Comments Unknown Sex and Gender Information Value Date Recorded Sex Assigned at Not on file Legal Sex Female 3:34 AM JACK WINDER Gender Identity Not on file Sexual [...] hyperlipidemia documented in this encounter Care Teams Furnace Brazer Relationship Specialty Start Date End Date Adrienne March DO [address] [place] [address] PCP - General Family Practice 06/30/10 documented as of this encounter
--- OUTSIDE RECORDS SUMMARY | 2025-09-13 00:39 | XMS_ITS | Encounter Summary ---
Author Organization [facility] Address [address] 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
--- OUTSIDE RECORDS SUMMARY | 2025-09-13 00:39 | XMS_ITS | Encounter Summary ---
Author Organization [facility] Address [address] [place] [address] Care Team Providers Care Rerolling Machine Operator Name Role Phone Adrienne March DO Primary Care Provider Encounter Details Date Type Department Care Team (Late st Contact Info) Description 07/09/1998 Outpatient Historical [facility] Umang Urrutia MD [address] [place] [id number] Need vaccination-viral disease (Primary Dx) Social History Tobacco Use Types Packs/Day Years Used Date Smoking Tobacco: Never Assessed Comments Unknown Sex and Gender Information Value Date Recorded Sex Assigned at Not on file 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
--- OUTSIDE RECORDS SUMMARY | 2025-09-13 00:39 | XMS_ITS | Encounter Summary ---
Author Organization [facility] Address [address] [place] [address] Care Team Providers Care Ballast Regulator Operator Name Role Phone Adrienne March DO Primary Care Provider Encounter Details Date Type Department Care Team (Late st Contact Info) Description 02/05/1999 Outpatient Historical [facility] MED Umang Urrutia MD [address] [place] [address] Rotator cuff rupture (Primary Dx); Adhesive capsulit shlder; Other chest pain; Unspecified adjustment reaction Social History Tobacco Use Types Packs/Day Years Used Date Smoking Tobacco: Never Assessed Comments Unknown Sex and Gender Information Value Date Recorded Sex Assigned at Not on file Legal Sex Female 3:34 AM MONUMENT SETTER HELPER Gender Identity Not on file Sexual Orientation Not on file documented as of this encounter Plan of Treatment Not on file documented as of this encounter Visit Diagnoses Diagnosis Rotator cuff rupture- Primary Rotator cuff (capsule) sprain Adhesive capsulit shlder Adhesive capsulitis of shoulder Other chest pain Unspecified adjustment reaction documented in this encounter Care Teams Ballast Regulator Operator Relationship Specialty Start Date End Date Adrienne March DO [address] [place] [address] PCP - General Family Practice 06/30/10 documented as of this encounter
--- OUTSIDE RECORDS SUMMARY | 2025-09-13 00:39 | XMS_ITS | Encounter Summary ---
Author Organization [facility] Address [address] [place] [address] Care Team Providers Care Karate Black Belt Name Role Phone Adrienne March DO Primary Care Provider Encounter Details Date Type Department Care Team (Late st Contact Info) Description 04/11/1999 Outpatient Historical [facility] MED Umang Urrutia MD [address] [place] [phone] Cervicalgia (Primary Dx); Brachial neuritis or radiculitis NOS; Obesity, unspecified; Encounter for long-term (current) use of other medications Social History Tobacco Use Types Packs/Day Years Used Date Smoking Tobacco: Never Assessed Comments Unknown Sex and Gender Information Value Date Recorded Sex Assigned at Not on file 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 Sex Female 3:34 AM 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
--- OUTSIDE RECORDS SUMMARY | 2025-09-13 00:39 | XMS_ITS | Encounter Summary ---
Author Organization [facility] Address [address] [place] [address] Care Team Providers Care Mapping Editor Name Role Phone Adrienne March DO Primary Care Provider Encounter Details Date Type Department Care Team (Late st Contact Info) Description 09/27/1998 Outpatient Historical [facility] MED Umang Urrutia MD [address] [place] [address] Cervical disc displacmnt (Primary Dx); Encounter for long-term (current) use of other medications; Sprain rotator cuff Social History Tobacco Use Types Packs/Day Years Used Date Smoking Tobacco: Never Assessed Comments Unknown Sex and Gender Information Value Date Recorded Sex Assigned at Not on file Legal Sex Female 3:34 AM RN MOBILE Gender Identity Not on file Sexual Orientation Not on file documented as of this encounter Plan of Treatment Not on file documented as of this encounter Visit Diagnoses Diagnosis Cervical disc displacmnt- Primary Displacement of cervical intervertebral disc without myelopathy Encounter for long-term (current) use of other medications Sprain rotator cuff Rotator cuff (capsule) sprain documented in this encounter Care Teams Mapping Editor Relationship Specialty Start Date End Date Adrienne March DO [address] [place] [phone] PCP - General Family Practice 06/30/10 documented as of this encounter
--- OUTSIDE RECORDS SUMMARY | 2025-09-13 00:39 | XMS_ITS | Encounter Summary ---
Author Organization [facility] Address [address] [place] [address] Care Team Providers Care Vp Cardiovascular Name Role Phone Adrienne March DO Primary Care Provider Encounter Details Date Type Department Care Team (Late st Contact Info) Description 10/15/[address] [facility] MED Umang Urrutia MD [address] [place] [address] Cervical disc displacmnt (Primary Dx); Encounter for long-term (current) use of other medications Social History Tobacco Use Types Packs/Day Years Used Date Smoking Tobacco: Never Assessed Comments Unknown Sex and Gender Information Value Date Recorded Sex Assigned at Not on file 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
--- OUTSIDE RECORDS SUMMARY | 2025-09-13 00:39 | XMS_ITS | Encounter Summary ---
Author Organization [facility] Address [address] [place] [address] Care Team Providers Care Web Interface Developer Name Role Phone Adrienne March DO Primary Care Provider Encounter Details Date Type Department Care Team (Latest Contact Info) Description 09/26/[address] [facility] MED Umang Urrutia MD [address] [place] [address] Hypopotassemia (Primary Dx); Encounter for long-term (current) use of other medications; Pain in joint, multiple sites; Other and unspecified hyperlipidemia; Other abnormal blood chemistry Social History Tobacco Use Types Packs/Day Years Used Date Smoking Tobacco: Never Assessed Comments Unknown Sex and Gender Information Value Date Recorded Sex Assigned at Not on file Legal Sex Female 3:34 AM DEPUTY CHIEF COUNSEL Gender Identity Not on file Sexual Orientation Not on file documented as of this encounter Plan of Treatment Not on file documented as of this encounter Visit Diagnoses Diagnosis Hypopotassemia- Primary Encounter for long-term (current) use of other medications Pain in joint, multiple sites Other and unspecified hyperlipidemia Other abnormal blood chemistry documented in this encounter Care Teams Web Interface Developer Relationship Specialty Start Date End Date Adrienne March DO [address] [place] [phone] PCP - General Family Practice 06/30/10 documented as of this encounter
--- OUTSIDE RECORDS SUMMARY | 2025-09-13 00:39 | XMS_ITS | Encounter Summary ---
Author Organization [facility] Address [address] [place] [address] Care Team Providers Care Sock Folder Name Role Phone Adrienne March DO Primary Care Provider Encounter Details Date Type Department Care Team (Latest Contact Info) Description 09/25/1998 Outpatient Historical [facility] MED Umang Urrutia MD [address] [place] [address] Displacement of intervertebral disc, site unspecified, without myelopathy (Primary Dx); Adhesive capsulit shlder Social History Tobacco Use Types Packs/Day Years Used Date Smoking Tobacco: Never Assessed Comments Unknown Sex and Gender Information Value Date Recorded Sex Assigned at Not on file Legal Sex Female 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
--- OUTSIDE RECORDS SUMMARY | 2025-09-13 00:39 | XMS_ITS | Encounter Summary ---
Author Organization [facility] Address [address] [place] [address] Care Team Providers Care Electrical Engineer Mep Name Role Phone Adrienne March DO Primary Care Provider [phone] Encounter Details Date Type Department Care Team (Latest Contact Info) Description 09/24/1997 Outpatient Historical [facility] Umang Urrutia MD [address] [place] [address] Other chronic nonalcoholic liver disease (Primary Dx); Other nonspecific abnormal serum enzyme levels; Sprain of neck; Enthesopathy of ankle and tarsus, unspecified Social History Tobacco Use Types Packs/Day Years Used Date Smoking Tobacco: Never Assessed Comments Unknown Sex and Gender Information Value Date Recorded Sex Assigned at Not on file 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 Sex Female 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
--- OUTSIDE RECORDS SUMMARY | 2025-09-13 00:39 | XMS_ITS | Encounter Summary ---
Author Organization [facility] Address [address] [place] [address] Care Team Providers Care Pusher Runner Name Role Phone Adrienne March DO Primary Care Provider Encounter Details Date Type Department Care Team (Late st Contact Info) Description 02/28/1999 Outpatient Historical [facility] MED Umang Urrutia MD [address] [place] [address] Brachial neuritis or radiculitis NOS (Primary Dx); Adhesive capsulit shlder; Adjustment disorder with anxiety Social History Tobacco Use Types Packs/Day Years Used Date Smoking Tobacco: Never Assessed Comments Unknown Sex and Gender Information Value Date Recorded Sex Assigned at Not on file 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
--- OUTSIDE RECORDS SUMMARY | 2025-09-13 00:39 | XMS_ITS | Encounter Summary ---
Author Organization [facility] Address [address] [place] [address] Care Team Providers Care Sheet Metal Welder Name Role Phone Adrienne March DO Primary Care Provider [phone] Encounter Details Date Type Department Care Team (Late st Contact Info) Description 01/13/[address] 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
--- OUTSIDE RECORDS SUMMARY | 2025-09-13 00:39 | XMS_ITS | Encounter Summary ---
Author Organization [facility] Address [address] [place] [address] Care Team Providers Care Chief Engineer Production Name Role Phone Adrienne March DO Primary Care Provider Encounter Details Date Type Department Care Team (Latest Contact Info) Description 03/26/[address] 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
--- OUTSIDE RECORDS SUMMARY | 2025-09-13 00:39 | XMS_ITS | Encounter Summary ---
Author Organization [facility] Address [address] [place] [address] Care Team Providers Care Steel Fixer Name Role Phone Adrienne March DO Primary Care Provider [phone] Encounter Details Date Type Department Care Team (Late st Contact Info) Description 10/02/1998 Outpatient Historical [facility] MED Umang Urrutia MD [address] [place] [address] Cervical disc displacmnt (Primary Dx); Premature beats, unspecified; Other specified cardiac dysrhythmias(427.89 ) Social History Tobacco Use Types Packs/Day Years Used Date Smoking Tobacco: Never Assessed Comments Unknown Sex and Gender Information Value Date Recorded Sex Assigned at Not on file 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 Gender Identity Not on file Sexual Orientation Not on file documented as of this encounter Plan of Treatment Not on file documented as of this encounter Visit Diagnoses Diagnosis Cervical disc displacmnt- Primary Displacement of cervical intervertebral disc without myelopathy Premature beats, unspecified Other specified cardiac dysrhythmias(427.89) Other specified cardiac dysrhythmias documented in this encounter Care Teams Steel Fixer Relationship Specialty Start Date End Date Adrienne March DO [address] [place] [address] PCP - General Family Practice 06/30/10 documented as of this encounter
--- OUTSIDE RECORDS SUMMARY | 2025-09-13 00:39 | XMS_ITS | Encounter Summary ---
Author Organization [facility] Address [address] [place] [address] Care Team Providers Care Park Landscape Architect Name Role Phone Adrienne March DO Primary Care Provider Encounter Details Date Type Department Care Team (Late st Contact Info) Description 04/26/1998 Outpatient [facility] [address] [phone] Flor Belcher MD NO ADDRESS ON FILE Other screening mammogram (Primary Dx) Social History Tobacco Use Types Packs/Day Years Used Date Smoking Tobacco: Never Assessed Comments Unknown Sex and Gender Information Value Date Recorded Sex Assigned at Not on file Legal Sex Female 3:34 AM 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
--- OUTSIDE RECORDS SUMMARY | 2025-09-13 00:39 | XMS_ITS | Encounter Summary ---
Author Organization [facility] Address [address] [place] [address] Care Team Providers Care Motor Express Clerk Name Role Phone Adrienne March DO Primary Care Provider [phone] Encounter Details Date Type Department Care Team (Latest Contact Info) Description 12/04/1998 Outpatient Historical HIS [facility] INTER[facility] MED Umang Urrutia MD [address] [place] [address] Cervical spinal stenosis (Primary Dx); Issue of medical certificates Social History Tobacco Use Types Packs/Day Years Used Date Smoking Tobacco: Never Assessed Comments Unknown Sex and Gender Information Value Date Recorded Sex Assigned at Not on file Legal Sex Female 3:34 AM STRATEGIC DEBRIEFING SPECIALIST Gender Identity Not on file Sexual Orientation Not on file documented as of this encounter Plan of Treatment Not on file documented as of this encounter Visit Diagnoses Diagnosis Cervical spinal stenosis- Primary Spinal stenosis in cervical region Issue of medical certificates documented in this encounter Care Teams Motor Express Clerk Relationship Specialty Start Date End Date Adrienne March DO [address] [place] [address] PCP - General Family Practice 06/30/10 documented as of this encounter
--- OUTSIDE RECORDS SUMMARY | 2025-09-13 00:39 | XMS_ITS | Encounter Summary ---
Author Organization [facility] Address [address] [place] [address] Care Team Providers Care Police Lieutenant Name Role Phone Adrienne March DO Primary Care Provider Encounter Details Date Type Department Care Team (Latest Contact Info) Description 12/31/1999 Outpatient Historical [facility] MED Umang Urrutia MD [address] [place] [address] Hypopotassemia (Primary Dx); Unspecified essential hypertension; Hyperosmolality; Encounter for long-term (current) use of other medications Social History Tobacco Use Types Packs/Day Years Used Date Smoking Tobacco: Never Assessed Comments Unknown Sex and Gender Information Value Date Recorded Sex Assigned at Not on file 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 Sex Female 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
--- OUTSIDE RECORDS SUMMARY | 2025-09-13 00:39 | XMS_ITS | Encounter Summary ---
Author Organization [facility] Address [address] [place] [address] Care Team Providers Care Instrument Maker Name Role Phone Adrienne March DO Primary Care Provider Encounter Details Date Type Department Care Team (Late st Contact Info) Description 01/29/1999 Outpatient Historical [facility] INTER[facility] MED Umang Urrutia MD [address] [place] [address] Adhesive capsulit shlder (Primary Dx); Cervical spinal stenosis; Encounter for long-term (current) use of other medications Social History Tobacco Use Types Packs/Day Years Used Date Smoking Tobacco: Never Assessed Comments Unknown Sex and Gender Information Value Date Recorded Sex Assigned at Not on file 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
--- NOTE | 2025-09-13 01:02 | XRR_ITS ---
PROCEDURE INFORMATION: Exam: XR Abdomen Exam date and time: 09/13/2025 1:34 AM Age: 79 years old Clinical indication: Constipation TECHNIQUE: Imaging protocol: Radiologic exam of the abdomen. Views: Frontal supine view of the abdomen. 1 View. COMPARISON: CR (CHEST, ) 09/01/2025 6:51 PM FINDINGS: Gastrointestinal tract: Nonspecific gaseous distension of the transverse colon and splenic flexure. No clear evidence of colonic obstruction. Paucity of gas in the rectum. No substantial stool burden. No pneumatosis. Vasculature: No portal venous gas. Bones/joints: Partially imaged lumbar fusion hardware is noted. Partially imaged intramedullary nailing of the right proximal femur. No acute complication. Other findings: Free intra-abdominal air is not adequately assessed on supine radiographs. XR/XR KUB portable [id number] IMPRESSION: Nonobstructive bowel-gas pattern.
[2025-09-13] MEDS: lactulose oral liq 20 gm/30 mL UDC 30 GM PO (02:23)
--- NOTE | 2025-09-13 02:26 | W.ED.ABDPA2 ---
HPI - Abdominal Pain General: Chief Complaint: Abdominal Pain Stated Complaint: Constipation Time Seen by Provider: 09/13/25 00:49 History of Present Illness: Patient presents with severe constipation that began approximately 3 days ago. Last bowel movement was 3 days prior to presentation. Patient reports onset of symptoms around 8:00 PM this evening, with sensation of stool present at the rectum but inability to pass despite significant straining efforts. Associated symptoms include abdominal pain and tenderness. Patient reports difficulty sitting and walking due to discomfort. Has taken two doses of an unspecified laxative medication that typically provides relief, but was ineffective this episode. Patient has experienced similar episodes in the past, though previous episodes resolved with straining, unlike the current presentation. Patient acknowledges recent use of pain medications, which may be contributing to constipation. Related Data Home Medications ?Medication ?Instructions ?Recorded ?Confirmed cetirizine 10 mg tablet (Zyrtec) 10 mg PO DAILY PRN Allergy Symptoms 11/13/19 12/12/24 desvenlafaxine succinate 50 mg 50 mg PO DAILY 11/13/19 12/12/24 tablet,extended release 24 hr (Pristiq) esomeprazole magnesium 20 mg 20 mg PO DAILY 11/13/19 12/12/24 capsule,delayed release (Nexium) fluticasone propionate 50 1 spray intranasal DAILY PRN 11/13/19 12/12/24 mcg/actuation nasal allergies spray,suspension gabapentin 300 mg capsule 300 mg PO TID 11/13/19 12/12/24 oxycodone-acetaminophen 10 mg-325 1 tab PO Q4H PRN Pain 11/13/19 12/12/24 mg tablet (Percocet) phenytoin sodium extended 100 mg 300 mg PO BID 11/13/19 12/12/24 capsule (Dilantin Extended) ergocalciferol (vitamin D2) 1,250 1,250 mcg PO Q7D 09/14/21 12/12/24 mcg (50,000 unit) capsule (Vitamin D2) potassium chloride 20 mEq 20 meq PO DAILY 09/14/21 12/12/24 tablet,extended release apixaban 5 mg tablet (Eliquis) 5 mg PO BID 08/08/24 12/12/24 dulaglutide 1.5 mg/0.5 mL 0.5 mg SUBCUT Q7D 08/08/24 12/12/24 subcutaneous pen injector (Trulicity) levothyroxine 125 mcg tablet 125 mcg PO DAILY 08/08/24 12/12/24 metformin 500 mg tablet 500 mg PO BID 08/08/24 12/12/24 azelastine 137 mcg (0.1 %) nasal 2 spray intranasal BID 08/21/24 12/12/24 spray furosemide 40 mg tablet 40 mg PO DAILY 08/21/24 12/12/24 metoprolol succinate 25 mg 25 mg PO DAILY 08/21/24 12/12/24 tablet,extended release 24 hr aspirin 81 mg tablet,delayed 81 mg PO DAILY 12/12/24 12/12/24 release Previous Rx's ?Medication ?Instructions ?Recorded atorvastatin 40 mg tablet 40 mg PO DAILY #30 tabs 08/07/24 lactulose 10 gram/15 mL oral 20 g (30 mL) PO BID PRN 09/13/25 solution (Constulose) constipation #1,200 mL Allergies Allergy/AdvReac Type Severity Reaction Status Date / Time adhesive tape Allergy Unknown Verified 09/13/25 00:29 silver sulfadiazine (From Allergy ALGY-Rash Verified 09/13/25 00:29 Silvadene) PFS ED PFSH: Medical History (Updated 09/13/25 @ 02:30 by Javan Barrientos DO) Chronic anticoagulation Diabetes Hypoxia Diastolic heart failure Exertional dyspnea COPD (chronic obstructive pulmonary disease) Seizure disorder Mild aortic stenosis Obesity Diabetes 1.5, managed as type 2 Hyperlipidemia HTN (hypertension) Hypothyroidism CVA (cerebral vascular accident) Surgical History Previous back surgery S/P hysterectomy Family History Father Stroke Hypertension Mother Hypertension CAD (coronary artery disease) Myocardial infarction Sister Hypertension CAD (coronary artery disease) Myocardial infarction Brother CAD (coronary artery disease) Myocardial infarction Denies family history of Colon cancer Pancreatic cancer Ovarian cancer Thyroid cancer Diabetes Breast cancer Cancer Uterine cancer Social History Smoking and tobacco/nicotine status: never used tobacco/nicotine Household members: spouse Marital status: Physical Exam Const: GENERAL APPEARANCE: cooperative and anxious (in pain) HENMT: COMMON NORMALS: normocephalic, atraumatic and Normal external nose present HEAD & SCALP: normocephalic and atraumatic FACE & SINUS: normal facial exam and face symmetric NOSE: Normal external nose present Eye: COMMON NORMALS: Equal, round and reactive pupils present and EOMs intact bilaterally PUPIL: Yes Equal, round and reactive pupils present Neck/C-Spine: GENERAL: Yes trachea midline Chest: CHEST: Yes Symmetrical chest wall rise Resp: COMMON NORMALS: normal respiratory effort, No retractions, No use of accessory muscles and clear to auscultation bilaterally AUSCULTATION: clear to auscultation bilaterally Cardio: COMMON NORMALS: regular rate and regular rhythm RATE: regular rate RHYTHM: regular rhythm GI: COMMON NORMALS: Normal to inspection, nondistended, normoactive bowel sounds present PALPATION: Yes Tenderness to palpation present (GI) (Mild diffuse) RECTAL EXAM: No heme positive stool, No Rectal prolapse and no fecal impaction OTHER: Minimal production with disimpaction Extremity: COMMON NORMALS: no pedal edema Neuro: ROSALINDA COMA SCALE: document GCS findings Rosalinda coma scale eye opening: Spontaneous Rosalinda coma scale verbal response: Orientated Rosalinda coma scale motor response: Obey commands Rosalinda coma scale total score: 15 SENSORY EXAM: Yes extremities (intact) Psych: COMMON NORMALS: speech normal SPEECH: Yes normal speech Skin: COMMON NORMALS: no rashes or lesions noted GENERAL SKIN EXAM: no rashes or lesions noted Procedures Rectal Disimpaction Time out performed rectal disimpaction: No Indication: fecal impaction Procedural Sedation: No Sedation/Analgesia: none Technique: manual disimpaction with gloved finger Patient Tolerated Procedure: well and no complications Complications: none Additional Comments: Minimal production with disimpaction Course Vital Signs: Vital signs: Vital Signs Temperature 98.0 F 09/13/25 00:24 Pulse Rate 52 L 09/13/25 00:24 Respiratory Rate 16 09/13/25 00:24 Blood Pressure 108/51 09/13/25 00:24 Pulse Oximetry 92 09/13/25 00:24 Oxygen Delivery Me thod Nasal Cannula 09/13/25 00:24 Oxygen Flow Rate 2 09/13/25 00:24 MDM - Abdominal Pain Medical Decision Making Patient feels constipated. Stool is soft on rectal disimpaction, with minimal production. She is given an oral laxative as well as milk and molasses enema with good result here. She will be discharged home. Lab Data Labs/Radiology: Radiology Impressions KUB X-Ray 09/13/25 01:02 IMPRESSION: Nonobstructive bowel-gas pattern. All radiology interpretation(s) finalized by discharge Discharge Plan Discharge Patient Disposition: Home Clinical Impression: Constipation Condition: Stable Prescriptions: New lactulose [Constulose] 10 gram/15 mL solution 20 g PO BID PRN (Reason: constipation) Qty: 1200 0RF No Action phenytoin sodium extended [Dilantin Extended] 100 mg capsule 300 mg PO BID fluticasone propionate 50 mcg/actuation spray,suspension 1 spray INTRANASAL DAILY PRN (Reason: allergies) gabapentin 300 mg capsule 300 mg PO TID esomeprazole magnesium [Nexium] 20 mg capsule,delayed release(DR/EC) 20 mg PO DAILY oxycodone-acetaminophen [Percocet] 10-325 mg tablet 1 tab PO Q4H PRN (Reason: Pain) desvenlafaxine succinate [Pristiq] 50 mg tablet extended release 24 hr 50 mg PO DAILY cetirizine [Zyrtec] 10 mg tablet 10 mg PO DAILY PRN (Reason: Allergy Symptoms) ergocalciferol (vitamin D2) [Vitamin D2] 1,250 mcg (50,000 unit) Capsule 1,250 mcg PO Q7D Rx Instructions: ON WEDNESDAYS potassium chloride 20 mEq Tablet Extended Release 20 meq PO DAILY metformin 500 mg tablet 500 mg PO BID Eliquis 5 mg tablet 5 mg PO BID levothyroxine 125 mcg tablet 125 mcg PO DAILY Trulicity 1.5 mg/0.5 mL pen injector 0.5 mg SUBCUT Q7D aspirin 81 mg Tablet,Delayed Release (Dr/Ec) 81 mg PO DAILY atorvastatin 40 mg tablet 40 mg PO DAILY Qty: 30 0RF furosemide 40 mg tablet 40 mg PO DAILY metoprolol succinate 25 mg tablet extended release 24 hr 25 mg PO DAILY azelastine 137 mcg (0.1 %) spray,non-aerosol 2 spray INTRANASAL BID Discharge Orders: Discharge ED (Routine); Ordered 09/13/25 Ordered By: Javan Barrientos Referrals: Adrienne March DO [Primary Care Provider, Family Practice] - 1-3 days Patient Instructions: Abdominal Pain (ED), Opioid Safety, Pain Management, Patient Portal & [facility] Instructions Activity Restrictions/Additional Instructions: Return for fever, worsening pain, vomiting, other concerning symptoms. Call your doctor tomorrow for a follow-up appointment. 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
== END 2025-09-13 04:57 | disposition home or self-care (01) ==
PROVIDERS: Emergency Provider Emergency Medicine; PCP Family Medicine
DX: K59.00 Constipation, unspecified (principal); Z79.84 Long term (current) use of oral hypoglycemic drugs; Z79.01 Long term (current) use of anticoagulants; Z79.82 Long term (current) use of aspirin; Z79.85 Long-term (current) use of injectable non-insulin antidiabetic drugs; E78.5 Hyperlipidemia, unspecified; E13.9 Other specified diabetes mellitus without complications; J44.9 Chronic obstructive pulmonary disease, unspecified; Z86.73 Personal history of transient ischemic attack (TIA), and cerebral infarction without residual deficits; I11.0 Hypertensive heart disease with heart failure; I50.30 Unspecified diastolic (congestive) heart failure
CPT/HCPCS: 74018; 99283; J9999